=== PATIENT | female | born 1955 | race Caucasian/White ===

== ENCOUNTER 2022-09-18 14:06 | Outpatient (OUT) | payer MEDICARE, SELFPAY ==
[2022-09-18 14:42] LABS: Anion Gap 13.6; BUN Creatinine Ratio 18.8; Calcium 8.5 mg/dL (8.5-10.1); Carbon Dioxide 25.3 mmol/L (21.0-32.0); Chloride 97 mmol/L (98-107); Estimated GFR (African America 50 (>=60); Estimated GFR (Non-African Ame 41 (>=60); Glucose 124 mg/dL (74-106); Potassium 4.9 mmol/L (3.5-5.1); Sodium 131 mmol/L (136-145)
== END 2022-09-18 14:07 | disposition home or self-care (01) ==
LOC: LAB 14:09
PROVIDERS: PCP Family Medicine; Visit Provider Internal Medicine Interventional Cardiology
DX: I11.0 Hypertensive heart disease with heart failure (principal); I50.9 Heart failure, unspecified
CPT/HCPCS: 36415; 80048

== ENCOUNTER 2022-10-20 09:25 | Outpatient (OUT) | payer MEDICARE, SELFPAY ==
--- NOTE | 2022-10-20 09:36 | US_ITS ---
The [address] [address] Patient Name: CHIARA EDUARDO MRN: [id number] date: 1955 Sex: F Assigned Patient Location: US Current Patient Location: US Accession/Order Number: [id number] Exam Date: 10/20/2022 09:40 Report Date: 10/20/2022 10:38 At the request of: SHAIKH ROBERTA Procedure: US right upper quadrant EXAM: US right upper quadrant HISTORY: . Chronic Right Upper Quadrant Pain R10.11 . COMPARISON: None. TECHNIQUE: Grayscale and color imaging was performed FINDINGS: The pancreas was obscured due to overlying bowel gas. The gallbladder is absent. Common bile duct is normal measuring 4 mm. Scanning of the liver demonstrates a liver to be enlarged measuring 20 cm. There is slight increased echogenicity of liver. Color-flow is noted in the portal and hepatic veins. Right kidney measures 8.9 x 4.2 x 4.3 cm. No solid renal cortical masses or hydronephrosis is noted. No fluid is noted in the right upper quadrant. US/US right upper quadrant IMPRESSION: 1. Absent gallbladder. 2. The liver is enlarged measuring 20 cm. There is increased echogenicity of liver consistent with fatty infiltration of liver. 3. The pancreas was obscured due to overlying bowel gas. Electronically authenticated by: TIMOTHY ANDRE Date: 10/20/2022 10:38
[2022-10-20 14:39] LABS: Alanine Aminotransferase 22 U/L (14-59); Albumin Globulin Ratio 0.9; Albumin Level 3.5 g/dL (3.4-5.0); Alkaline Phosphatase 135 U/L (46-116); Aspartate Amino Transferase 19 U/L (15-37); Bilirubin Direct 0.1 mg/dL (0.0-0.2); Bilirubin Total 0.2 mg/dL (0.2-1.0); Globulin 3.8 g/dL; Total Protein 7.3 g/dL (6.4-8.2)
== END 2022-10-20 09:26 | disposition home or self-care (01) ==
LOC: US 09:25
PROVIDERS: PCP Internal Medicine; Visit Provider Internal Medicine
DX: R10.11 Right upper quadrant pain (principal); G89.29 Other chronic pain; Z90.49 Acquired absence of other specified parts of digestive tract; R16.0 Hepatomegaly, not elsewhere classified
CPT/HCPCS: 36415; 76705; 80076

== ENCOUNTER 2022-10-26 13:50 | Emergency (ER) | payer MEDICARE, SELFPAY ==
[2022-10-26] VITALS (47 sets, daily range): BP systolic 108–163; BP diastolic 74–127; PULSE 81–102; RESP 13–32; TEMP 36.8; O2SAT 73–100; BMI 36.0
--- NOTE | 2022-10-26 13:51 | ECG_ITS ---
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
--- NOTE | 2022-10-26 13:51 | XR_ITS ---
The [address] [address] Patient Name: CHIARA EDUARDO MRN: [id number] date: 1955 Sex: F Assigned Patient Location: ER Current Patient Location: ER Accession/Order Number: [id number] Exam Date: 10/26/2022 14:18 Report Date: 10/26/2022 14:42 At the request of: CELESTINA CONNER Procedure: XR chest 1V EXAMINATION: XR chest 1V HISTORY: Palpitations , shortness breath COMPARISON: No relevant comparison available. FINDINGS: LUNGS: No significant pulmonary parenchymal abnormalities. VASCULATURE: No increased pulmonary vasculature. PLEURA: No pneumothorax, effusion, or pleural thickening. CARDIAC: No cardiomegaly or cardiac silhouette abnormality. MEDIASTINUM: No visible mass or adenopathy. BONES: No fracture or visible bone lesion. OTHER: Electronic device overlying upper mediastinum. XR/XR chest 1V IMPRESSION: 1. No acute cardiopulmonary process or suspicious findings. Electronically authenticated by: SHAMIKA WHITLEY Date: 10/26/2022 14:42
--- NOTE | 2022-10-26 13:53 | ED_ITS ---
Documented by User: ELIOT Granger 10/26/22 18:35 HPI - General Adult General Chief complaint: Arrhythmia/Palpitations Stated complaint: ARRHYTHMIAS Time Seen by Provider: 10/26/22 13:51 History of Present Illness HPI narrative: patient is a 67-year-old female who presents to the emergency department for cardiac arrhythmia and palpitations. Patient had a heart attack several months ago with a stent placed [facility] and follows with [facility]. She denies any chest pain but states she is chronically short of breath and dizzy, no change in her symptoms today. She went to cardiac rehab and was noted on cardiac monitoring to have runs of ventricular tachycardia. Her licensed massage practitioner is out of the country. She has been on a three-week event monitor, cardiac rehab nurse states they have been called at least twice for patient's dysrhythmia on the event monitor. She is anticoagulated with Brillnta. Related Data Home Medications Medication Instructions Recorded Confirmed albuterol sulfate 2.5 mg/3 mL 2.5 mg inhalation Q6H PRN 10/02/22 10/02/22 (0.083 %) solution for nebulization shortness of breath or wheezing albuterol sulfate 90 mcg/actuation 2 inh inhalation Q4H PRN shortness 10/02/22 10/02/22 aerosol inhaler of breath or wheezing atorvastatin 80 mg tablet 80 mg PO DAILY 10/02/22 10/02/22 carvedilol 12.5 mg tablet 12.5 mg PO Q12H 10/02/22 10/26/22 cyclobenzaprine 10 mg tablet 10 mg PO Q8H PRN muscle spasm 10/02/22 10/02/22 fluticasone 250 mcg-salmeterol 50 1 inh inhalation BID 10/02/22 10/02/22 mcg/dose blistr powdr for inhalation furosemide 40 mg tablet 20 mg PO Q48H 10/02/22 10/02/22 ipratropium 0.5 mg-albuterol 3 mg 3 ml inhalation Q6H PRN shortness 10/02/22 10/02/22 (2.5 mg base)/3 mL nebulization of breath soln ipratropium bromide 0.02 % 1.25 ml inhalation Q6H PRN 10/02/22 10/02/22 solution for inhalation shortness of breath or wheezing isosorbide mononitrate 30 mg 30 mg PO DAILY 10/02/22 10/02/22 tablet,extended release 24 hr olmesartan 40 mg tablet 20 mg PO DAILY 10/02/22 10/26/22 ticagrelor 90 mg tablet (Brilinta) 90 mg PO Q12H 10/02/22 10/02/22 tiotropium bromide 2.5 2 inh inhalation DAILY 10/05/22 10/05/22 mcg/actuation mist for inhalation (Spiriva Respimat) Allergies Allergy/AdvReac Type Severity Reaction Status Date / Time vancomycin Allergy Severe Anaphylaxis Verified 10/02/22 14:02 clopidogrel [From Plavix] Allergy Intermediate Rash Verified 10/02/22 14:02 Penicillins Allergy Intermediate Hives Verified 10/02/22 14:02 hyrochlorathizide Allergy Severe Anaphylaxis Uncoded 10/02/22 14:02 Review of Systems ROS Constitutional Denies: fever or chills Ears, nose, mouth, and throat Denies: throat pain Cardiovascular Denies: chest pain Respiratory Reports: shortness of breath; Denies: cough Gastrointestinal Denies: abdominal pain, nausea or vomiting Musculoskeletal Denies: back pain Integumentary/Breast Denies: rash Neurological Denies: headache Hematologic/Lymphatic Denies: easy bruising PFSH PFSH Social History Smoking status: Never smoker Exam Narrative Exam Narrative: Gen.: Awake, alert, in no distress Head: Normocephalic, atraumatic ENT: Moist mucous membranes Respiratory: No respiratory distress, lungs clear bilaterally; no wheezing or rhonchi Cardio: frequent PVCs, normal rate Gastrointestinal: Abdomen is soft, nondistended and nontender to palpation Extremities: Moves extremities equally, 1+ pitting edema to the bilateral lower extremities Psych: Normal mood and affect Neuro: No focal neuro deficit Skin: Warm, dry, intact Constitutional Vital Signs, click to edit/add: Last Vital Signs Temp 98.3 F 10/26/22 13:56 Pulse 88 10/26/22 17:20 Resp 15 10/26/22 17:20 BP 151/87 H 10/26/22 17:00 Pulse Ox 99 10/26/22 17:20 O2 Del Method Room Air 10/26/22 14:21 Course Vital Signs Vital signs: Vital Signs Temperature 98.3 F 10/26/22 13:56 Pulse Rate 91 H 10/26/22 13:56 Respiratory Rate 20 10/26/22 13:56 Blood Pressure 108/82 10/26/22 13:56 Pulse Oximetry 100 10/26/22 13:56 Oxygen Delivery Method Room Air 10/26/22 13:56 Temperature 98.3 F 10/26/22 13:56 Pulse Rate 88 10/26/22 17:20 Respiratory Rate 15 10/26/22 17:20 Blood Pressure 151/87 H 10/26/22 17:00 Pulse Oximetry 99 10/26/22 17:20 Oxygen Delivery Method Room Air 10/26/22 14:21 Medical Decision Making MDM Narrative Medical decision making narrative: on arrival to the emergency department, patient was noted on cardiac monitoring to have continued runs of PVCs, as many as 5-6 beats noted in a row. lab studies, chest x-ray were ordered for the patient. I discussed the case with Dr. Pemberton (1413pm) and he is in agreement with treatment plan. Patient was started on amiodarone drip at 0.5mg/min, we are not able to get an emergent echocardiogram for the patient so it was recommended that she be transferred to tertiary care for cardiology evaluation. the hospitalist at [facility] accepted the patient for Dr. Saleh (1517pm). 1830: lab studies show the patient has a normal magnesium, chronic hyponatremia and normal troponin. Chest x-rays unremarkable. She has no EKG changes in the Emergency Room other than her frequent PVCs. Cardiac monitoring shows that the patient has continued runs of PVCs but no active chest pain in the emergency department. We have received a bed at [facility] and the patient will be transferred by ambulance. She was reevaluated by Dr. Slater, he had an extensive discussion with the patient at bedside explaining the need for transfer and patient and family are in agreement with this. Critical care time 35 minutes. Medical Records Medical records reviewed: Yes I reviewed the patient's medical records Lab Data Lab results reviewed: Yes I reviewed the patient's lab results Labs: Lab Results 10/26/22 Range/Units 14:00 WBC 6.8 (4.0-11.0) 10^3/uL RBC 3.02 L (4.20-5.40) 10^6/uL Hgb 8.3 L (12.0-16.0) g/dL Hct 25.4 L (36.0-48.0) % MCV 84.1 (81.0-99.0) fL MCH 27.5 (26.7-34.0) pg MCHC 32.7 (29.9-35.2) g/dL RDW 13.5 (11.0-15.0) % Plt Count 391 (150-450) 10^3/uL MPV 9.4 L (9.5-13.5) fL Neut % (Auto) 70.5 (43.0-75.0) % Lymph % (Auto) 15.6 L (20.5-60.0) % Clinch % (Auto) 9.6 (1.7-12.0) % Eos % (Auto) 3.2 (0.9-7.0) % Baso % (Auto) 0.7 (0.2-2.0) % Neut # (Auto) 4.8 (1.4-6.5) 10^3/uL Lymph # (Auto) 1.1 L (1.2-3.8) 10^3/uL Clinch # (Auto) 0.7 (0.3-0.8) 10^3/uL Eos # (Auto) 0.2 (0.0-0.7) 10^3/uL Baso # (Auto) 0.1 (0.0-0.1) 10^3/uL Abs Immat Gran (auto) 0.03 (0.00-0.03) 10^3/uL Imm/Tot Granulo (auto) 0.4 (0.0-0.5) % PT 10.1 (9.0-11.6) sec INR 0.95 APTT 26.2 (22.3-36.2) sec Sodium 126 L (136-145) mmol/L Potassium 4.1 (3.5-5.1) mmol/L Chloride 94 L (98-107) mmol/L Carbon Dioxide 23.9 (21.0-32.0) mmol/L Anion Gap 12.2 BUN 20.0 H (7.0-18.0) mg/dL Creatinine 1.10 H (0.55-1.02) mg/dL Est GFR ( Amer) 60 (>=60) Est GFR (Non-Af Amer) 49 L (>=60) BUN/Creatinine Ratio 18.2 Glucose 155 H (74-106) mg/dL Calcium 8.3 L (8.5-10.1) mg/dL Magnesium 1.9 (1.8-2.4) mg/dL Total Bilirubin 0.3 (0.2-1.0) mg/dL AST 19 (15-37) U/L ALT 24 (14-59) U/L Alkaline Phosphatase 137 H (46-116) U/L Troponin I High Sens 8.0 (4.0-51.3) pg/mL NT-Pro-B Natriuret Pep 1218.0 H* (<=900.0) pg/mL Total Protein 7.4 (6.4-8.2) g/dL Albumin 3.4 (3.4-5.0) g/dL Globulin 4.0 g/dL Albumin/Globulin Ratio 0.9 TSH 1.236 (0.358-3.740) uIU/mL Imaging Data Chest x-ray: Attestation: I have reviewed the pertinent imaging results. Radiologist's impression: Procedure: XR chest 1V EXAMINATION: XR chest 1V HISTORY: Palpitations , shortness breath COMPARISON: No relevant comparison available. FINDINGS: LUNGS: No significant pulmonary parenchymal abnormalities. VASCULATURE: No increased pulmonary vasculature. PLEURA: No pneumothorax, effusion, or pleural thickening. CARDIAC: No cardiomegaly or cardiac silhouette abnormality. MEDIASTINUM: No visible mass or adenopathy. BONES: No fracture or visible bone lesion. OTHER: Electronic device overlying upper mediastinum. IMPRESSION: 1. No acute cardiopulmonary process or suspicious findings. Electronically authenticated by: SHAMIKA WHITLEY Date: 10/26/2022 14:42 ECG Data Attestation: I personally reviewed and interpreted this ECG as follows: (normal sinus rhythm at a rate of ninety-four, frequent PVCs that are coupled, no acute ST elevation. EKG reviewed by attending physician) Discharge Plan Discharge Chief Complaint: Arrhythmia/Palpitations Clinical Impression: Palpitations, Cardiac arrhythmia, Ventricular premature beats, Anemia Patient Disposition: [facility] Time of Disposition Decision: 18:34 Discharge Location: The [facility] Condition: Good Mode of Transportation: EMS Documented by User: Nic Slater MD 10/26/22 18:57 HPI - General Adult General Chief complaint: Arrhythmia/Palpitations Stated complaint: ARRHYTHMIAS Time Seen by Provider: 10/26/22 13:51 History of Present Illness HPI narrative: patient is a 67-year-old female who presents to the emergency department for cardiac arrhythmia and palpitations. Patient had a heart attack several months ago with a stent placed [facility] and follows with [facility]. She denies any chest pain but states she is chronically short of breath and dizzy, no change in her symptoms today. She went to cardiac rehab and was noted on cardiac monitoring to have runs of ventricular tachycardia. Her licensed massage practitioner is out of the country, Dr Milner. She has been on a three-week event monitor, cardiac rehab nurse states they have been called at least twice for patient's dysrhythmia on the event monitor. She is anticoagulated with Angelita llnta. Related Data Home Medications Medication Instructions Recorded Confirmed albuterol sulfate 2.5 mg/3 mL 2.5 mg inhalation Q6H PRN 10/02/22 10/02/22 (0.083 %) solution for nebulization shortness of breath or wheezing albuterol sulfate 90 mcg/actuation 2 inh inhalation Q4H PRN shortness 10/02/22 10/02/22 aerosol inhaler of breath or wheezing atorvastatin 80 mg tablet 80 mg PO DAILY 10/02/22 10/02/22 carvedilol 12.5 mg tablet 12.5 mg PO Q12H 10/02/22 10/26/22 cyclobenzaprine 10 mg tablet 10 mg PO Q8H PRN muscle spasm 10/02/22 10/02/22 fluticasone 250 mcg-salmeterol 50 1 inh inhalation BID 10/02/22 10/02/22 mcg/dose blistr powdr for inhalation furosemide 40 mg tablet 20 mg PO Q48H 10/02/22 10/02/22 ipratropium 0.5 mg-albuterol 3 mg 3 ml inhalation Q6H PRN shortness 10/02/22 10/02/22 (2.5 mg base)/3 mL nebulization of breath soln ipratropium bromide 0.02 % 1.25 ml inhalation Q6H PRN 10/02/22 10/02/22 solution for inhalation shortness of breath or wheezing isosorbide mononitrate 30 mg 30 mg PO DAILY 10/02/22 10/02/22 tablet,extended release 24 hr olmesartan 40 mg tablet 20 mg PO DAILY 10/02/22 10/26/22 ticagrelor 90 mg tablet (Brilinta) 90 mg PO Q12H 10/02/22 10/02/22 tiotropium bromide 2.5 2 inh inhalation DAILY 10/05/22 10/05/22 mcg/actuation mist for inhalation (Spiriva Respimat) Allergies Allergy/AdvReac Type Severity Reaction Status Date / Time vancomycin Allergy Severe Anaphylaxis Verified 10/02/22 14:02 clopidogrel [From Plavix] Allergy Intermediate Rash Verified 10/02/22 14:02 Penicillins Allergy Intermediate Hives Verified 10/02/22 14:02 hyrochlorathizide Allergy Severe Anaphylaxis Uncoded 10/02/22 14:02 [facility] Social History Smoking status: Never smoker Exam Constitutional Vital Signs, click to edit/add: Last Vital Signs Temp 98.3 F 10/26/22 13:56 Pulse 88 10/26/22 17:20 Resp 15 10/26/22 17:20 BP 151/87 H 10/26/22 17:00 Pulse Ox 99 10/26/22 17:20 O2 Del Method Room Air 10/26/22 14:21 Course Vital Signs Vital signs: Vital Signs Temperature 98.3 F 10/26/22 13:56 Pulse Rate 91 H 10/26/22 13:56 Respiratory Rate 20 10/26/22 13:56 Blood Pressure 108/82 10/26/22 13:56 Pulse Oximetry 100 10/26/22 13:56 Oxygen Delivery Method Room Air 10/26/22 13:56 Temperature 98.3 F 10/26/22 13:56 Pulse Rate 88 10/26/22 17:20 Respiratory Rate 15 10/26/22 17:20 Blood Pressure 151/87 H 10/26/22 17:00 Pulse Oximetry 99 10/26/22 17:20 Oxygen Delivery Method Room Air 10/26/22 14:21 Medical Decision Making MDM Narrative Medical decision making narrative: on arrival to the emergency department, patient was noted on cardiac monitoring to have continued runs of PVCs, as many as 5-6 beats noted in a row. lab studies, chest x-ray were ordered for the patient. I discussed the case with Dr. Pemberton (1413pm) and he is in agreement with treatment plan. Patient was started on amiodarone drip at 0.5mg/min, we are not able to get an emergent echocardiogram for the patient as it was initially recommended by Dr. Pemberton; so it was recommended that she be transferred to tertiary care for cardiology evaluation. the hospitalist at [facility] accepted the patient for Dr. Saleh (1517pm). 1830: lab studies show the patient has a normal magnesium, chronic hyponatremia and normal troponin. Chest x-rays unremarkable. She has no EKG changes in the Emergency Room other than her frequent PVCs. Cardiac monitoring shows that the patient has continued runs of PVCs but no active chest pain in the emergency department. We have received a bed at [facility] and the patient will be transferred by ambulance. She was reevaluated by Dr. Slater, he had an extensive discussion with the patient at bedside explaining the need for transfer and patient and family are in agreement with this. Patient has maintained normal rate while patient has been on amiodarone drip. Amiodarone drip was started prophylactically. Critical care time 35 minutes. Critical care time 35 minutes exclusive from separate billable procedures that were performed. The following was considered in the determination of critical care but not limited to the level of medical decision making, intensive cardiac and/or respiratory monitoring, frequent vital sign monitoring, evaluation of laboratory studies, evaluation of radiographic studies, oxygen monitoring, and constant monitoring and speaking to family at bedside Lab Data Labs: Lab Results 10/26/22 Range/Units 14:00 WBC 6.8 (4.0-11.0) 10^3/uL RBC 3.02 L (4.20-5.40) 10^6/uL Hgb 8.3 L (12.0-16.0) g/dL Hct 25.4 L (36.0-48.0) % MCV 84.1 (81.0-99.0) fL MCH 27.5 (26.7-34.0) pg MCHC 32.7 (29.9-35.2) g/dL RDW 13.5 (11.0-15.0) % Plt Count 391 (150-450) 10^3/uL MPV 9.4 L (9.5-13.5) fL Neut % (Auto) 70.5 (43.0-75.0) % Lymph % (Auto) 15.6 L (20.5-60.0) % Clinch % (Auto) 9.6 (1.7-12.0) % Eos % (Auto) 3.2 (0.9-7.0) % Baso % (Auto) 0.7 (0.2-2.0) % Neut # (Auto) 4.8 (1.4-6.5) 10^3/uL Lymph # (Auto) 1.1 L (1.2-3.8) 10^3/uL Clinch # (Auto) 0.7 (0.3-0.8) 10^3/uL Eos # (Auto) 0.2 (0.0-0.7) 10^3/uL Baso # (Auto) 0.1 (0.0-0.1) 10^3/uL Abs Immat Gran (auto) 0.03 (0.00-0.03) 10^3/uL Imm/Tot Granulo (auto) 0.4 (0.0-0.5) % PT 10.1 (9.0-11.6) sec INR 0.95 APTT 26.2 (22.3-36.2) sec Sodium 126 L (136-145) mmol/L Potassium 4.1 (3.5-5.1) mmol/L Chloride 94 L (98-107) mmol/L Carbon Dioxide 23.9 (21.0-32.0) mmol/L Anion Gap 12.2 BUN 20.0 H (7.0-18.0) mg/dL Creatinine 1.10 H (0.55-1.02) mg/dL Est GFR ( Amer) 60 (>=60) Est GFR (Non-Af Amer) 49 L (>=60) BUN/Creatinine Ratio 18.2 Glucose 155 H (74-106) mg/dL Calcium 8.3 L (8.5-10.1) mg/dL Magnesium 1.9 (1.8-2.4) mg/dL Total Bilirubin 0.3 (0.2-1.0) mg/dL AST 19 (15-37) U/L ALT 24 (14-59) U/L Alkaline Phosphatase 137 H (46-116) U/L Troponin I High Sens 8.0 (4.0-51.3) pg/mL NT-Pro-B Natriuret Pep 1218.0 H* (<=900.0) pg/mL Total Protein 7.4 (6.4-8.2) g/dL Albumin 3.4 (3.4-5.0) g/dL Globulin 4.0 g/dL Albumin/Globulin Ratio 0.9 TSH 1.236 (0.358-3.740) uIU/mL Discharge Plan Discharge Chief Complaint: Arrhythmia/Palpitations Clinical Impression: Palpitations, Cardiac arrhythmia, Ventricular premature beats, Anemia Patient Disposition: [facility] Time of Disposition Decision: 18:34 Discharge Location: The [facility] Condition: Good Mode of Transportation: EMS
[2022-10-26] MEDS: AMIODARONE IN DEXTROSE,ISO-OSM 360 MG/200 ML PLAST..BAG 16.667 MG IV (14:10)
[2022-10-26 14:22] LABS: Basophils Absolute Auto 0.1 10^3/uL (0.0-0.1); Basophils Percent Auto 0.7 % (0.2-2.0); Eosinophils Absolute Auto 0.2 10^3/uL (0.0-0.7); Eosinophils Percent Auto 3.2 % (0.9-7.0); Hematocrit 25.4 % (36.0-48.0); Hemoglobin 8.3 g/dL (12.0-16.0); Immature Granulocytes Abs Auto 0.03 10^3/uL (0.00-0.03); Immature Granulocytes Pct Auto 0.4 % (0.0-0.5); Lymphocytes Absolute Auto 1.1 10^3/uL (1.2-3.8); Lymphocytes Percent Auto 15.6 % (20.5-60.0); Mean Corpuscular HGB Conc 32.7 g/dL (29.9-35.2); Mean Corpuscular Hemoglobin 27.5 pg (26.7-34.0); Mean Corpuscular Volume 84.1 fL (81.0-99.0); Mean Platelet Volume 9.4 fL (9.5-13.5); Monocytes Absolute Auto 0.7 10^3/uL (0.3-0.8); Monocytes Percent Auto 9.6 % (1.7-12.0); Neutrophils Absolute Auto 4.8 10^3/uL (1.4-6.5); Neutrophils Percent Auto 70.5 % (43.0-75.0); Platelet Count 391 10^3/uL (150-450); Red Blood Count 3.02 10^6/uL (4.20-5.40); Red Cell Distribution Width 13.5 % (11.0-15.0); White Blood Count 6.8 10^3/uL (4.0-11.0)
[2022-10-26 14:37] LABS: INR 0.95; Partial Thromboplastin Time 26.2 sec (22.3-36.2); Prothrombin Time 10.1 sec (9.0-11.6)
[2022-10-26 14:42] LABS: Alanine Aminotransferase 24 U/L (14-59); Albumin Globulin Ratio 0.9; Albumin Level 3.4 g/dL (3.4-5.0); Alkaline Phosphatase 137 U/L (46-116); Anion Gap 12.2; Aspartate Amino Transferase 19 U/L (15-37); BUN Creatinine Ratio 18.2; Bilirubin Total 0.3 mg/dL (0.2-1.0); Calcium 8.3 mg/dL (8.5-10.1); Carbon Dioxide 23.9 mmol/L (21.0-32.0); Chloride 94 mmol/L (98-107); Estimated GFR (African America 60 (>=60); Estimated GFR (Non-African Ame 49 (>=60); Glucose 155 mg/dL (74-106); Potassium 4.1 mmol/L (3.5-5.1); Sodium 126 mmol/L (136-145); Total Protein 7.4 g/dL (6.4-8.2)
[2022-10-26 14:43] LABS: Thyroid Stimulating Hormone 1.236 uIU/mL (0.358-3.740)
[2022-10-26 16:09] LABS: Magnesium 1.9 mg/dL (1.8-2.4)
--- NOTE | 2022-10-26 18:08 | ECG_ITS ---
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1955 Requested By: SHAIKH ROBERTA Order Number: [id number] Reading MD: AMELIA VELASCO Measurements Intervals [place] Rate: 93 P: -28968 ME: -39586 QRS: 89 QRSD: 136 T: -88 QT: 390 QTc: 441 Interpretive Statements 31294 Atrial fibrillation with aberrant conduction, or ventricular premature complexes 2330 Nonspecific intraventricular conduction block 9150 abnormal ECG Compared to ECG 10/26/2022 13:58:12 Aberrant conduction of supraventricular beat(s) now present Sinus rhythm no longer present Ventricular premature complex(es) no longer present Electronically Signed On 10-27-2022 7:08:11 EDT by AMELIA VELASCO
== END 2022-10-26 21:14 | disposition short-term general hospital (02) ==
PROVIDERS: Physician Assistant; Emergency Provider Emergency Medicine; PCP Internal Medicine
DX: R00.2 Palpitations (principal); I49.9 Cardiac arrhythmia, unspecified; D64.9 Anemia, unspecified; I49.3 Ventricular premature depolarization; R06.02 Shortness of breath; I25.2 Old myocardial infarction; Z95.5 Presence of coronary angioplasty implant and graft; Z79.899 Other long term (current) 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; Z79.01 Long term (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 of anticoagulants
CPT/HCPCS: 36415; 71045; 80053; 83735; 83880; 84443; 84484; 85025; 85610; 85730; 93005; 96374; 99285

== ENCOUNTER 2022-11-02 14:58 | Outpatient (OUT) | payer MEDICARE, SELFPAY ==
[2022-11-02 15:26] LABS: Anion Gap 11.9; BUN Creatinine Ratio 13.4; Calcium 8.9 mg/dL (8.5-10.1); Carbon Dioxide 27.2 mmol/L (21.0-32.0); Chloride 98 mmol/L (98-107); Estimated GFR (African America 54 (>=60); Estimated GFR (Non-African Ame 45 (>=60); Glucose 102 mg/dL (74-106); Potassium 4.1 mmol/L (3.5-5.1); Sodium 133 mmol/L (136-145)
== END 2022-11-02 14:59 | disposition home or self-care (01) ==
LOC: LAB 14:58
PROVIDERS: PCP Internal Medicine; Visit Provider Internal Medicine Interventional Cardiology
DX: I11.0 Hypertensive heart disease with heart failure (principal)
CPT/HCPCS: 36415; 80048

== ENCOUNTER 2022-11-17 15:00 | Outpatient (REF) | payer MEDICARE, SELFPAY ==
[2022-11-17 15:32] LABS: Anion Gap 16.3; BUN Creatinine Ratio 13.9; Calcium 9.1 mg/dL (8.5-10.1); Carbon Dioxide 24.4 mmol/L (21.0-32.0); Chloride 97 mmol/L (98-107); Estimated GFR (African America 41 (>=60); Estimated GFR (Non-African Ame 34 (>=60); Glucose 119 mg/dL (74-106); Potassium 4.7 mmol/L (3.5-5.1); Sodium 133 mmol/L (136-145)
== END 2022-11-17 15:01 | disposition home or self-care (01) ==
LOC: LAB 15:00
PROVIDERS: PCP Internal Medicine; Visit Provider Internal Medicine
DX: E22.2 Syndrome of inappropriate secretion of antidiuretic hormone (principal)
CPT/HCPCS: 36415; 80048

== ENCOUNTER 2022-11-17 15:00 | Outpatient (REF) | payer MEDICARE, SELFPAY ==
[2022-11-17 15:20] LABS: Basophils Absolute Auto 0.1 10^3/uL (0.0-0.1); Basophils Percent Auto 1.1 % (0.2-2.0); Eosinophils Absolute Auto 0.2 10^3/uL (0.0-0.7); Eosinophils Percent Auto 3.5 % (0.9-7.0); Hematocrit 34.8 % (36.0-48.0); Hemoglobin 11.1 g/dL (12.0-16.0); Immature Granulocytes Abs Auto 0.03 10^3/uL (0.00-0.03); Immature Granulocytes Pct Auto 0.5 % (0.0-0.5); Lymphocytes Absolute Auto 0.8 10^3/uL (1.2-3.8); Lymphocytes Percent Auto 12.5 % (20.5-60.0); Mean Corpuscular HGB Conc 31.9 g/dL (29.9-35.2); Mean Corpuscular Hemoglobin 28.5 pg (26.7-34.0); Mean Corpuscular Volume 89.5 fL (81.0-99.0); Mean Platelet Volume 9.2 fL (9.5-13.5); Monocytes Absolute Auto 0.6 10^3/uL (0.3-0.8); Monocytes Percent Auto 9.3 % (1.7-12.0); Neutrophils Absolute Auto 4.6 10^3/uL (1.4-6.5); Neutrophils Percent Auto 73.1 % (43.0-75.0); Platelet Count 378 10^3/uL (150-450); Red Blood Count 3.89 10^6/uL (4.20-5.40); Red Cell Distribution Width 19.1 % (11.0-15.0); White Blood Count 6.3 10^3/uL (4.0-11.0)
== END 2022-11-17 15:01 | disposition home or self-care (01) ==
LOC: LAB 15:00
PROVIDERS: PCP Internal Medicine; Visit Provider Nurse Practitioner
DX: E22.2 Syndrome of inappropriate secretion of antidiuretic hormone (principal); D64.9 Anemia, unspecified
CPT/HCPCS: 36415; 80048; 85025

== ENCOUNTER 2022-12-03 13:29 | Outpatient (OUT) | payer MEDICARE, SELFPAY ==
[2022-12-03 14:34] LABS: Anion Gap 12.1; BUN Creatinine Ratio 16.7; Calcium 8.6 mg/dL (8.5-10.1); Carbon Dioxide 26.5 mmol/L (21.0-32.0); Chloride 101 mmol/L (98-107); Estimated GFR (African America 42 (>=60); Estimated GFR (Non-African Ame 34 (>=60); Glucose 110 mg/dL (74-106); Potassium 4.6 mmol/L (3.5-5.1); Sodium 135 mmol/L (136-145)
== END 2022-12-03 13:30 | disposition home or self-care (01) ==
LOC: LAB 13:29
PROVIDERS: PCP Internal Medicine; Visit Provider Nurse Practitioner
DX: I10 Essential (primary) hypertension (principal)
CPT/HCPCS: 36415; 80048

== ENCOUNTER 2023-01-18 13:06 | Outpatient (OUT) | payer MEDICARE, SELFPAY ==
[2023-01-18 13:17] LABS: Hemoglobin 10.9 g/dL (12.0-16.0)
--- NOTE | 2023-01-18 14:36 | RT_ITS ---
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 Findings were considered accurate and reproducible, with exception of DLCO and several other measurements which did not meet ATS standards. Both pre- and post-bronchodilator values utilized for spirometry. Due to software limitations, no prior studies (if performed previously) are currently available for comparison. Spirometry (based on pre-bronchodilator values): -FEV1/FVC: Reduced @ 55% -FEV1: Severely reduced @ 41% -FVC: Reduced @ 56% -There is a positive bronchodilator response in FVC. Lung volumes by plethysmography (based on pre-bronchodilator values): -RV: Increased @ 197% -TLC: Increased @ 130% Diffusion capacity: -DLCO: Moderate reduction @ 61% when corrected for Hb 10.9g/dL Flow-volume loop: -Severe obstructive pattern Flow-pressure loop: ???Emphysematous pattern Impressions: -Spirometry suggests severe obstruction. There is a positive bronchodilator response. An elevated RV and TLC suggest air trapping and hyperinflation respectively. There is a severely reduced diffusion capacity. Overall study is compatible with COPD/emphysema. Clinical correlation required. Electronically Signed On 01-18-2023 16:21:37 EDT by Brien Coughlin
[2023-01-18] MEDS: ALBUTEROL SULFATE 2.5 MG/3 ML VIAL NEB IH (15:08)
== END 2023-01-18 13:07 | disposition home or self-care (01) ==
LOC: CARD 13:07
PROVIDERS: PCP Internal Medicine; Visit Provider Internal Medicine
DX: J44.9 Chronic obstructive pulmonary disease, unspecified (principal); Z79.899 Other long term (current) 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
CPT/HCPCS: 36415; 85018; 94060; 94726; 94729

== ENCOUNTER 2023-01-20 10:01 | Outpatient (OUT) | payer MEDICARE, SELFPAY ==
[2023-01-20 10:26] LABS: Basophils Absolute Auto 0.1 10^3/uL (0.0-0.1); Basophils Percent Auto 1.1 % (0.2-2.0); Eosinophils Absolute Auto 0.3 10^3/uL (0.0-0.7); Eosinophils Percent Auto 5.2 % (0.9-7.0); Hematocrit 36.1 % (36.0-48.0); Hemoglobin 11.3 g/dL (12.0-16.0); Immature Granulocytes Abs Auto 0.02 10^3/uL (0.00-0.03); Immature Granulocytes Pct Auto 0.4 % (0.0-0.5); Lymphocytes Absolute Auto 1.1 10^3/uL (1.2-3.8); Lymphocytes Percent Auto 19.7 % (20.5-60.0); Mean Corpuscular HGB Conc 31.3 g/dL (29.9-35.2); Mean Corpuscular Volume 95.8 fL (81.0-99.0); Mean Platelet Volume 9.3 fL (9.5-13.5); Monocytes Absolute Auto 0.6 10^3/uL (0.3-0.8); Monocytes Percent Auto 11.2 % (1.7-12.0); Neutrophils Absolute Auto 3.4 10^3/uL (1.4-6.5); Neutrophils Percent Auto 62.4 % (43.0-75.0); Platelet Count 298 10^3/uL (150-450); Red Blood Count 3.77 10^6/uL (4.20-5.40); Red Cell Distribution Width 19.1 % (11.0-15.0); White Blood Count 5.4 10^3/uL (4.0-11.0)
[2023-01-20 11:02] LABS: Alanine Aminotransferase 35 U/L (14-59); Albumin Globulin Ratio 0.9; Albumin Level 3.5 g/dL (3.4-5.0); Alkaline Phosphatase 120 U/L (46-116); Anion Gap 8.4; Aspartate Amino Transferase 24 U/L (15-37); BUN Creatinine Ratio 16.2; Bilirubin Total 0.4 mg/dL (0.2-1.0); Calcium 8.6 mg/dL (8.5-10.1); Carbon Dioxide 30.2 mmol/L (21.0-32.0); Chloride 101 mmol/L (98-107); Cholesterol 164 mg/dL (<=200); Estimated GFR (African America 49 (>=60); Estimated GFR (Non-African Ame 41 (>=60); Glucose 101 mg/dL (74-106); HDL Cholesterol 80 mg/dL (40-60); Potassium 4.6 mmol/L (3.5-5.1); Sodium 135 mmol/L (136-145); Total Protein 7.5 g/dL (6.4-8.2); Triglycerides 59 mg/dL (<=150); VLDL CHOLESTEROL 11.8 mg/dL
== END 2023-01-20 10:02 | disposition home or self-care (01) ==
LOC: LAB 10:01
PROVIDERS: PCP Internal Medicine; Visit Provider Internal Medicine
DX: Z00.00 Encounter for general adult medical examination without abnormal findings (principal); Z79.899 Other long term (current) 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; E78.5 Hyperlipidemia, unspecified
CPT/HCPCS: 36415; 80053; 80061; 84443; 84481; 85025

== ENCOUNTER 2023-01-20 12:57 | Outpatient (OUT) | payer MEDICARE, SELFPAY ==
--- NOTE | 2023-01-20 13:02 | CT_ITS ---
[address] [address] Patient Name: CHIARA EDUARDO MRN: [id number] date: 1955 Sex: F Assigned Patient Location: CT Current Patient Location: Accession/Order Number: [id number] Exam Date: 01/20/2023 13:20 Report Date: 01/21/2023 14:51 At the request of: LUIS SCHUMACHER Procedure: CT lung screening low-dose EXAMINATION: CT lung screening low-dose HISTORY: History Tobacco Abuse Z87.891 COMPARISON: CT chest 01/19/2022 TECHNIQUE: Axial, Coronal, and Sagittal images were created without the administration of IV contrast material. Dose reduction techniques were achieved by using automated exposure control and/or adjustment of mA and/or kV according to patient size and/or use of iterative reconstruction technique. FINDINGS: LUNGS: A few small nodules scattered within the lungs, largest is within right middle lobe, 5 mm within lateral left lung base, 4 mm; stable. No new nodules or acute infiltrates. Minimal emphysematous changes. PLEURA: No mass, effusion, or pneumothorax. VASCULATURE: No abnormality. TEODORO: No mass or pathologic adenopathy. MEDIASTINUM: No mass or pathologic adenopathy. CARDIAC: No enlargement, pericardial thickening, or significant calcification. AORTA: No aneurysm or dissection. CHEST WALL: No mass or axillary adenopathy BONES: No bone lesion or fracture. LIMITED ABDOMEN: No suspicious findings. Limited images of the upper abdomen. OTHER: Negative. CT/CT lung screening low-dose IMPRESSION: 1. Lung-RADS 2- Benign Appearance or Behavior. Nodules with a very low likelihood of becoming a clinically active cancer due to size or lack of growth. Follow-up CT Chest in 1 year. Electronically authenticated by: SHAMIKA WHITLEY Date: 01/21/2023 14:51
== END 2023-01-20 12:58 | disposition home or self-care (01) ==
LOC: CT 12:57
PROVIDERS: PCP Internal Medicine; Visit Provider Internal Medicine
DX: Z87.891 Personal history of nicotine dependence (principal)
CPT/HCPCS: 71271

== ENCOUNTER 2023-03-01 10:05 | Outpatient (OUT) | payer MEDICARE, SELFPAY ==
[2023-03-01 10:33] LABS: Bilirubin Urine NEGATIVE (NEGATIVE); Blood Urine NEGATIVE (NEGATIVE); Clarity Urine CLEAR (CLEAR); Color Urine LT. YELLOW (YELLOW); Glucose Urine UA NEGATIVE (NEGATIVE); Hematocrit 35.3 % (36.0-48.0); Hemoglobin 11.5 g/dL (12.0-16.0); Ketones Urine NEGATIVE (NEGATIVE); Leukocyte Esterase Urine TRACE (NEGATIVE); Mean Corpuscular HGB Conc 32.6 g/dL (29.9-35.2); Mean Corpuscular Hemoglobin 30.9 pg (26.7-34.0); Mean Corpuscular Volume 94.9 fL (81.0-99.0); Nitrite Urine NEGATIVE (NEGATIVE); Platelet Count 319 10^3/uL (150-450); Protein Urine NEGATIVE (NEG/TRACE); Red Blood Count 3.72 10^6/uL (4.20-5.40); Red Cell Distribution Width 14.4 % (11.0-15.0); Specific Gravity Urine <=1.005 (1.005-1.025); Urobilinogen Urine 0.2 EU/dL (0.2-1.0)
[2023-03-01 10:59] LABS: Creatinine Urine Random 54.47 mg/dL (20.00-300.00); Protein Creatinine Ratio Urine 0.19; Total Protein Urine Random 10.4 mg/dL (<=11.9)
[2023-03-01 11:03] LABS: Percent Iron Saturation 16.3 %
[2023-03-01 11:05] LABS: Alanine Aminotransferase 36 U/L (14-59); Albumin Globulin Ratio 0.9; Albumin Level 3.6 g/dL (3.4-5.0); Alkaline Phosphatase 100 U/L (46-116); Anion Gap 13.3; Aspartate Amino Transferase 22 U/L (15-37); BUN Creatinine Ratio 15.8; Bilirubin Total 0.3 mg/dL (0.2-1.0); Calcium 8.4 mg/dL (8.5-10.1); Carbon Dioxide 28.9 mmol/L (21.0-32.0); Chloride 96 mmol/L (98-107); Estimated GFR (African America 48 (>=60); Estimated GFR (Non-African Ame 40 (>=60); Globulin 3.9 g/dL; Glucose 94 mg/dL (74-106); Magnesium 2.2 mg/dL (1.8-2.4); Phosphorus 4.2 mg/dL (2.6-4.7); Potassium 4.2 mmol/L (3.5-5.1); Sodium 134 mmol/L (136-145); Total Protein 7.5 g/dL (6.4-8.2); Uric Acid 6.3 mg/dL (2.6-6.0)
[2023-03-02 13:10] LABS: PTH, Intact 50 pg/mL (15-65)
== END 2023-03-01 10:06 | disposition home or self-care (01) ==
LOC: LAB 10:05
PROVIDERS: PCP Internal Medicine; Visit Provider Internal Medicine Nephrology
DX: N18.32 Chronic kidney disease, stage 3b (principal); I12.9 Hypertensive chronic kidney disease with stage 1 through stage 4 chronic kidney disease, or unspecified chronic kidney disease; E87.5 Hyperkalemia; E87.1 Hypo-osmolality and hyponatremia; E83.42 Hypomagnesemia; E79.0 Hyperuricemia without signs of inflammatory arthritis and tophaceous disease; D64.9 Anemia, unspecified; E55.9 Vitamin D deficiency, unspecified
CPT/HCPCS: 36415; 80053; 81003; 82306; 82570; 82607; 82728; 82746; 83540; 83550; 83735; 83970; 84100; 84156; 84550; 85027

== ENCOUNTER 2023-11-08 10:10 | Outpatient (OUT) | payer MEDICARE, SELFPAY ==
--- OUTSIDE RECORDS SUMMARY | 2023-11-08 10:31 | XMS_ITS | CCD ---
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 Name Role Phone Jackelyn Guillory Unavailable BAKHUMBERTOSJACKELYN Attending Unavailable BAKHOUS, AZIZ Admitting Unavailable HOUSE, DR CASTILLO Primary Care Unavailable WEST, DR TIMOTHY Chandler Consulting Unavailable SAMSA ., LUIS Consulting Unavailable BAKHOUS, AZIZ Consulting Unavailable SAMSA ., LUIS Consulting Unavailable SAMSA ., LUIS Attending Unavailable SAMSA ., LUIS Admitting Unavailable HOUSE, DR CASTILLO Primary Care Unavailable SAMSA ., LUIS Consulting Unavailable SAMSA ., LUIS Attending Unavailable SAMSA ., LUIS Admitting Unavailable MISC, DR PAREDES Primary Care Unavailable SAMSA ., LUIS Attending Unavailable SAMSA ., LUIS Admitting Unavailable MISC, DR PAREDES Primary Care Unavailable SAMSA ., LUIS Attending Unavailable [place], DR TIMOTHY Chandler Consulting Unavailable HOUSE, DR CASTILLO Primary Care Unavailable SAMSA ., LUIS Admitting Unavailable SAMSA ., LUIS Consulting Unavailable HOUSE, DR CASTILLO Admitting Unavailable HOUSE, DR CASTILLO Primary Care Unavailable [place], DR CASTILLO Consulting Unavailable [place], DR CASTILLO Attending Unavailable BAKHOUS, AZIZ Consulting Unavailable BAKHOUS, AZIZ Attending Unavailable BAKHOUS, AZIZ Admitting Unavailable HOUSE, DR CASTILLO Primary Care Unavailable [facility], DR HUANG Consulting Unavailable [facility], DR HUANG Attending Unavailable HOUSE, DR CASTILLO [facility] Admitting Unavailable SAMSA ., LUIS Consulting Unavailable SAMSA ., LUIS Attending Unavailable SAMSA ., LUIS Admitting Unavailable HOUSE, DR CASTILLO Primary Care Unavailable HOUSE, DR CASTILLO Consulting Unavailable SAMSA ., LUIS Consulting Unavailable SHAIKH GRANADOS Attending Unavailable ANGEL MATHEW Referring Unavailable XANDER MUSTAFA Attending Unavailable XANDER MUSTAFA Attending Unavailable XANDER MUSTAFA Attending Unavailable CHRIS POTTS Attending Unavailable MICHAEL KRAUSE Attending Unavailable ANGEL MATHEW Referring Unavailable ANGEL MATHEW Referring Unavailable LEMUEL, RODY Referring Unavailable LEMUEL, RODY Referring Unavailable LEMUEL, RODY Referring Unavailable ALIREZA MCALLISTER Attending Unavailable ABBY AZEVEDO Referring Unavailable CAMRON WHITESIDE Admitting Unavailable Allergies Allergy Classification Reported Allergen(s) Allergy Type Date of Onset Reaction(s) Facility (3 sources) clopidogrel; Translations: [CLOPIDOGREL] Drug Allergy [facility] Repository (3 sources) hydroCHLOROthiazide; Translations: [HYDROCHLOROTHIAZIDE] Drug Allergy rash [facility] Repository (3 sources) Penicillin; Translations: [penicillin] Drug Allergy [facility] Repository (3 sources) Vancomycin; Translations: [VANCOMYCIN] Drug Allergy anaphylaxis [facility] Repository (2 sources) Substance with sulfonamide structure and antibacterial mechanism of action (substance) Drug allergy Unknown [facility] Other (1 source) clopidogrel Drug Allergy [facility] Repository (1 source) hydroCHLOROthiazide Drug Allergy [facility] Repository (1 source) Vancomycin Drug Allergy [facility] Repository (1 source) Penicillins; Translations: [PENICILLINS] Propensity to adverse reactions to drug (disorder) [facility] Repository (1 source) Sodium Chloride; Translations: [SODIUM CHLORIDE] Drug Allergy [facility] Repository (1 source) Sulfonamides (Antibiotic); Translations: [SULFA (SULFONAMIDE ANTIBIOTICS)] Propensity to adverse reactions to drug (disorder) [facility] Repository Medications Current Medications Medication Drug Class(es) Dates Sig (Normalized) Sig (Original) [id number] 200 actuat albuterol 0.09 mg/actuat metered dose inhaler (2 sources) beta2-Adrenergic Agonist take 2 puff(s) by inhalation every four hours as needed Ventolin HFA 108 (90 Base) MCG/ACT 2 puff as needed Inhalation every 4 hrs Active albuterol 0.833 mg/ml / ipratropium bromide 0.167 mg/ml inhalation solution (2 sources) Anticholinergic, beta2-Adrenergic Agonist take 3 mL by inhalation every six hours as needed Ipratropium-Albuterol 0.5-2.5 (3) MG/3ML 3 mL as needed Inhalation every 6 hrs Active aspirin 81 mg delayed release oral tablet (2 sources) Platelet Aggregation Inhibitor, Nonsteroidal Anti-inflammatory Drug take 1 tablet by mouth every twenty-four hours Aspirin Adult Low Dose 81 MG 1 tablet Orally Once a day Active atorvastatin 80 mg oral tablet (2 sources) HMG-CoA Reductase Inhibitor take 1 tablet by mouth every twenty-four hours Atorvastatin Calcium 80 MG 1 tablet Orally Once a day Active Cholecalciferol (1 source) Vitamin D take 1 capsule by mouth once daily Cholecalciferol 25 MCG (1000 UT) 1 capsule Orally Once a day for 90 days Active ferrous sulfate 325 mg oral tablet (1 source) take 1 tablet by mouth every twenty-four hours Ferrous Sulfate 325 (65 Fe) MG 1 tablet Orally ONCE A DAY Active 60 actuat fluticasone propionate 0.25 mg/actuat / salmeterol 0.05 mg/actuat dry powder inhaler (2 sources) Corticosteroid, beta2-Adrenergic Agonist take 1 puff(s) by inhalation twice daily Advair Diskus 250-50 MCG/ACT 1 puff Inhalation Twice a day Active furosemide 20 mg oral tablet (2 sources) Loop Diuretic Furosemide 20 MG as directed Orally Once a day Active Furosemide 40 MG 1 1/2 tablet Orally Once a day Active 24 hr isosorbide mononitrate 30 mg extended release oral tablet (1 source) Nitrate Vasodilator take 1 tablet by mouth every twenty-four hours Isosorbide Mononitrate ER 30 MG 1 tablet in the morning Orally Once a day Active Magnesium (1 source) take 1 tablet by mouth twice daily Magnesium 250 MG 1 tablet with a meal Orally TWICE A DAY Active magnesium oxide 400 mg oral tablet (1 source) take 1 tablet by mouth every twelve hours Magnesium Oxide 400 MG 1 TABLET Orally TWICE A DAY Active metoprolol tartrate 50 mg oral tablet (2 sources) beta-Adrenergic Fernando take 1 tablet by mouth every twelve hours Metoprolol Tartrate 50 MG 1 tablet with food Orally Twice a day Active olmesartan medoxomil 40 mg oral tablet (2 sources) Angiotensin 2 Receptor Fernando take 1 tablet by mouth every twenty-four hours Olmesartan Medoxomil 40 MG 1 tablet Orally Once a day Active omeprazole 20 mg delayed release oral capsule (2 sources) Proton Pump Inhibitor take 1 capsule by mouth once daily Omeprazole 20 MG 1 capsule 30 minutes before morning meal Orally Once a day Active prasugrel 10 mg oral tablet (1 source) P2Y12 Platelet Inhibitor take 1 tablet by mouth every twenty-four hours Effient 10 MG 1 tablet Orally Once a day Active Problems Active Problems Problem Classification Problem Date Documented Date Episodic/Chronic Cardiac dysrhythmias (4 sources) Cardiac arrhythmia, unspecified; Translations: [Other specified cardiac arrhythmias] Onset: 10-26-2022 Chronic Chronic kidney disease (6 sources) Chronic kidney disease stage 3A ; Translations: [Chronic kidney disease, stage 3a] Onset: 01-08-2022 Chronic Chronic obstructive pulmonary disease and bronchiectasis (5 sources) Chronic obstructive pulmonary disease, unspecified; Translations: [COPD UNSPECIFIED] Onset: 01-08-2022 Chronic Coronary atherosclerosis and other heart disease (8 sources) Atherosclerotic heart disease of [place] coronary artery without angina pectoris; Translations: [Unstable angina] Onset: 01-05-2022 Chronic Essential hypertension (2 sources) Essential (primary) hypertension; Translations: [Essential (primary) hypertension] Onset: 10-27-2022 Chronic Hypertension with complications and secondary hypertension (11 sources) Hypertensive renal disease; Translations: [Hypertensive chronic kidney disease with stage 1 through stage 4 chronic kidney disease, or unspecified chronic kidney disease] Onset: 01-08-2022 Chronic Nutritional deficiencies (2 sources) Vitamin D deficiency; Translations: [Vitamin D deficiency, unspecified] Chronic Other nutritional; endocrine; and metabolic disorders (1 source) Hypomagnesemia; Translations: [Hypomagnesemia] Chronic Other nutritional; endocrine; and metabolic disorders (1 source) Hypomagnesemia Chronic Other nutritional; endocrine; and metabolic disorders (1 source) Hyperuricemia without signs of inflammatory arthritis and tophaceous disease Episodic Unclassified (1 source) Other ventricular tachycardia; Translations: [Other ventricular tachycardia] Onset: 11-17-2022 Past or Other Problems Problem Classification Problem Date Documented Da te Episodic/Chronic Chronic kidney disease (3 sources) Chronic kidney disease; Translations: [CHRONIC KIDNEY DISEASE STAGE 3A] Onset: 08-06-2022 Deficiency and other anemia (3 sources) Anemia, unspecified; Translations: [Anemia, unspecified] Onset: 10-27-2022 Episodic Fluid and electrolyte disorders (8 sources) Hyperkalemia; Translations: [Hypo-osmolality and hyponatremia] Onset: 08-06-2022 Episodic Nonspecific chest pain (2 sources) Chest pain, unspecified; Translations: [Chest pain, unspecified] Onset: 10-30-2022 Episodic Screening and history of mental health and substance abuse codes (4 sources) Personal history of nicotine dependence; Translations: [PERSONAL HISTORY OF NICOTINE DEPEND] Onset: 01-19-2022 Episodic Unclassified (1 source) Other ventricular tachycardia; Translations: [Other ventricular tachycardia] Onset: 11-17-2022 Results Test Name Value Interpretation Reference Range Facility Follow-Upon 10-12-2023 Follow-Up [id number] Chiara Juraes 1955 Provider Department Center 10/12/2023 XANDER FARLEY Family History Problem Relation Age of Onset Stroke Mother Kidney disease Father Coronary artery disease Paternal Grandfather Family Status - Relation Status Age at Mother Father Paternal Grandfather Level of Service:37342 ME OFFICE/OUTPATIENT ESTABLISHED MOD MDM 30 MIN Normal [facility] Office Visiton 06-29-2023 Follow-up visit [id number] Chiara Juares 1955 Provider Department Center 06/29/2023 XANDER FARLEY Family History Problem Relation Age of Onset Stroke Mother Kidney disease Father Coronary artery disease Paternal Grandfather Family Status - Relation Status Age at Mother Father Paternal Grandfather Level of Service:11189 ME OFFICE/OUTPATIENT ESTABLISHED LOW MDM 20 MIN Reason for Visit and Comments: Follow-up [[id number]] - Holter monitor results Normal [facility] Office Visiton 03-02-2023 Follow-up visit [id number] Chiara Juares 1955 Provider Department Center 03/02/2023 XANDER FARLEY Family History Problem Relation Age of Onset Stroke Mother Kidney disease Father Coronary artery disease Paternal Grandfather Family Status - Relation Status Age at Mother Father Paternal Grandfather Level of Service:19685 ME OFFICE/OUTPATIENT NEW MODERATE MDM 45-59 MINUTES Normal [facility] Office Visiton 12-28-2022 Follow-up visit [id number] Chiara Juares 1955 F Date Provider Department Center 12/28/2022 1596-CHRIS POTTS JUSTIN Zhuperez Garcia Family History Problem Relation Age of Onset Stroke Mother Kidney disease Father Coronary artery disease Paternal Grandfather Family Status - Relation Status Age at Mother Father Paternal Grandfather Level of Service:23902 ME OFFICE/OUTPATIENT ESTABLISHED MOD MDM 30-39 MIN Normal [facility] Office Vis[facility] 11-17-2022 Follow-up visit [id number] Chiara Juares 1955 F Date Provider Department Center 11/17/2022 120-MICHAEL KRAUSEevperez Garcia Family History Problem Relation Age of Onset Stroke Mother Kidney disease Father Coronary artery disease Paternal Grandfather Family Status - Relation Status Age at Mother Father Paternal Grandfather Level of Service:50899 ME OFFICE/OUTPATIENT ESTABLISHED MOD MDM 30-39 MIN Reason for Visit and Comments: Follow-up [[id number]] [facility] 36on 11-04-2022 36 Contacted patient regarding scheduling of an EGD/CLN ast part of her [facility] hospital follow up, work up for anemia. Patient states she does not need this done continued to speak with her and she still insists then that she is not going to do it. Normal [facility] Telephoneon 11-04-2022 Telephone [id number] Chiara Juares 1955 F Date Provider Department Center 11/04/2022 [facility]LL [facility] Family History Problem Relation Age of Onset Stroke Mother Kidney disease Father Coronary artery disease Paternal Grandfather Family Status - Relation Status Age at Mother Father Paternal Grandfather Normal [facility] 30on 10-31-2022 30 Problem: Respiratory - Adult Goal: Achieves optimal ventilation and oxygenation Outcome: Progressing Flowsheets (Taken 10/31/2022723) Achieves optimal ventilation and oxygenation: Assess for changes in respiratory status Assess for changes in mentation and behavior Position to facilitate oxygenation and minimize respiratory effort Problem: Cardiovascular - Adult Goal: Maintains optimal cardiac output and hemodynamic stability Outcome: Progressing Flowsheets (Taken 10/31/2022723) Maintains optimal cardiac output and hemodynamic stability: Monitor blood pressure and heart rate Monitor urine output and notify Licensed Independent Practitioner for values outside of normal range Assess for signs of decreased cardiac output Goal: Absence of cardiac dysrhythmias or at baseline Outcome: Progressing Flowsheets (Taken 10/31/2022723) Absence of cardiac dysrhythmias or at baseline: Monitor cardiac rate and rhythm Administer antiarrhythmia medication and electrolyte replacement as ordered Assess for signs of decreased cardiac output Problem: Pain - Adult Goal: Verbalizes/displays adequate comfort level or baseline comfort level Outcome: Progressing Flowsheets (Taken 10/31/2022824) Verbalizes/displays adequate comfort level or baseline comfort level: Encourage patient to monitor pain and request assistance Assess pain using appropriate pain scale Administer analgesics based on type and severity of pain and evaluate response Implement non-pharmacological measures as appropriate and evaluate response Problem: Safety - Adult Goal: Free from fall injury Outcome: Progressing Flowsheets (Taken 10/31/2022724) Free from fall injury: Assess patient frequently for physical needs Identify cognitive and physical deficits and behaviors that affect risk of falls [place] fall precautions as indicated by assessment Educate patient/family on patient safety, including physical limitations Instruct patient to call for assistance with activity based on assessment Modify environment to reduce risk of injury Consider OT/PT consult to assist with strengthening/mobility Problem: Discharge Planning Goal: Discharge to home or other facility with appropriate resources Outcome: Progressing Flowsheets (Taken 10/31/2022723) Discharge to home or other facility with appropriate resources: Identify barriers to discharge with patient and caregiver Arrange for needed discharge resources and transportation as appropriate Identify discharge learning needs (meds, wound care, etc) Problem: Chronic Conditions and Co-morbidities Goal: Patient's chronic conditions and co-morbidity symptoms are monitored and maintained or improved Outcome: Progressing Flowsheets (Taken 10/31/2022723) Care Plan - Patient's Chronic Conditions and Co-Morbidity Symptoms are Monitored and Maintained or Improved: Monitor and assess patient's chronic conditions and comorbid symptoms for stability, deterioration, or improvement Collaborate with multidisciplinary team to address chronic and comorbid conditions and prevent exacerbation or deterioration Update acute care plan with appropriate goals if chronic or comorbid symptoms are exacerbated and prevent overall improvement and discharge Problem: Hematologic - Adult Goal: Maintains hematologic stability Outcome: Progressing Flowsheets (Taken 10/31/2022723) Maintains hematologic stability: Assess for signs and symptoms of bleeding or hemorrhage Monitor labs for bleeding or clotting disorders Administer blood products/factors as ordered Problem: Neurosensory - Adult Goal: Achieves stable or improved neurological status Outcome: Progressing Flowsheets (Taken 10/31/2022723) Achieves stable or improved neurological status: Assess for and report changes in neurological status Initiate measures to prevent increased intracranial pressure Maintain blood pressure and fluid volume within ordered parameters to optimize cerebral perfusion and minimize risk of hemorrhage Monitor temperature, glucose, and sodium. Initiate appropriate interventions as ordered Problem: Skin/Tissue Integrity - Adult Goal: Skin integrity remains intact Outcome: Progressing Flowsheets (Taken 10/31/2022723) Skin integrity remains intact: Monitor for areas of redness and/or skin breakdown Assess vascular access sites hourly Problem: Musculoskeletal - Adult Goal: Return mobility to safest level of function Outcome: Progressing Flowsheets (Taken 10/31/2022723) Return mobility to safest level of function: Assess patient stability and activity tolerance for standing, transferring and ambulating with or without assistive devices Assist with transfers and ambulation using safe patient handling equipment as needed Ensure adequate protection for wounds/incisions during mobilization Problem: Gastrointestinal - Adult Goal: Maintains or returns to baseline bowel function Outcome (more content not included)... Normal [facility] 30 The patient is Moderately Stable - Low risk of patient condition declining or worsening The patient's goals for the shift include comfort The clinical goals for the shift include safety Normal [facility] BASIC METABOLIC PANELon 08-0 Anion gap [Moles/Vol] 11 mmol/L Normal 7-20 [facility] Comment on above: Performed By: #### L [id number] #### [facility] ([facility]) [address] [place] [address] Calcium [Mass/Vol] 8.5 mg/dL Low 8.6-10.3 [facility] Comment on above: Performed By: #### L [id number] #### [facility] ([facility]) [address] [place] [address] Chloride [Moles/Vol] 98 mmol/L Normal 98-107 [facility] Comment on above: Performed By: #### L [id number] #### [facility] ([facility]) [address] [place] [address] CO2 [Moles/Vol] 23 mmol/L Normal 21-31 [facility] Comment on above: Performed By: #### L [id number] #### [facility] ([facility]) [address] [place] [address] Creatinine [Mass/Vol] 1.07 mg/dL Normal 0.60-1.20 [facility] Comment on above: Performed By: #### L [id number] #### [facility] ([facility]) [address] [place] [address] GLOMERULAR FILTRATION RATE ML/MIN/1.73 SQ M.PREDICTED 56.2 mL/min/1.73m*2 Low >[address]0 [facility] Comment on above: Result Comment: The [facility]???s estimated glomerular filtration rate (eGFR) will no longer include consideration of race in its calculation. The National Kidney Foundation???s eGFR Task Force developed new recommendations for the estimation of the glomerular filtration rate in the [place] They recommend immediate implementation of the new equation refit without the race variable in all laboratories because the calculation does not include race. In addition to not including race in the calculation and reporting, it included diversity in its development, and has acceptable performance characteristics and potential consequences that do not disproportionately affect any one group of individuals. Performed By: #### L [id number] #### [facility] ([facility]) [address] [place] [address] Glucose [Mass/Vol] 98 mg/dL Normal 70-100 [facility] Comment on above: Performed By: #### L [id number] #### [facility] ([facility]) [address] [place] [address] Potassium [Moles/Vol] 3.8 mmol/L Normal 3.5-5.1 [facility] Comment on above: Performed By: #### L [id number] #### [facility] ([facility]) [address] [place] [address] Sodium [Moles/Vol] 128 mmol/L Low 136-145 [facility] Comment on above: Performed By: #### L [id number] #### [facility] ([facility] [address] [place] [address] Urea nitrogen [Mass/Vol] 18 mg/dL Normal 7-25 [facility] Comment on above: Performed By: #### L [id number] #### [facility] ([facility] [address] [place] [address] UREA NITROGEN/CREATININE (MASS RATIO) IN SER/PLAS 16.8 Normal [facility] Comment on above: Performed By: #### L [id number] #### [facility] ([facility] [address] [place] [address] CBCon 10-31-2022 Erythrocyte distribution width (RBC) [Ratio] 14.6 % Normal 11.5-15.0 [facility] Comment on above: Performed By: #### L [id number] #### [facility] ([facility]) [address] [place] [address] ERYTHROCYTE MEAN CORPUSCULAR HEMOGLOBIN CONCENTRATION (G/DL) BY AUTOMATED 33.5 g/dL Normal 32.0-35.0 [facility] Comment on above: Performed By: #### L [id number] #### [facility] ([facility]) [address] [place] [address] Hematocrit (Bld) [Volume fraction] 24.2 % Low 36.0-48.0 [facility] Comment on above: Performed By: #### L [id number] #### [facility] ([facility] [address] [place] [address] Hemoglobin (Bld) [Mass/Vol] 8.1 g/dL Low 12.0-15.0 [facility] Comment on above: Performed By: #### L [id number] #### [facility] ([facility] [address] [place] [address] MCH (RBC) [Entitic mass] 28.1 pg Normal 27.0-33.0 [facility] Comment on above: Performed By: #### L [id number] #### [facility] ([facility]) [address] [place] [address] MCV (RBC) [Entitic vol] 84.0 fL Normal 82.0-98.0 [facility] Comment on above: Performed By: #### L [id number] #### [facility] ([facility]) [address] [place] [address] PLATELETS (10*3/UL) IN BLOOD AUTOMATED COUNT 317 10*3/uL Normal 150-400 [facility] Comment on above: Performed By: #### L [id number] #### [facility] ([facility]) [address] [facility] [address] RBC (Bld) [#/Vol] 2.88 10*6/uL Low 3.80-5.00 [facility] Comment on above: Performed By: #### L [id number] #### [facility] ([facility]) [address] [address] WBC (Bld) [#/Vol] 7.49 10*3/uL Normal 4.00-10.60 [facility] Comment on above: Performed By: #### L [id number] #### [facility] ([facility]) [address] [place] [address] MAGNESIUMon 10-31-2022 Magnesium [Mass/Vol] 1.8 mg/dL Low 1.9-2.7 [facility] Comment on above: Performed By: #### L [id number] ####[facility] ([facility])[address] [place] [address] 30on 10-30-2022 30 Daily Case Managemen t Update Multidisciplinary rounds have been completed. Barriers to Discharge: Right heart cath and coronary angiography today. Fluid restriction changed from 2L to 1.2L for hyponatremia. Hgb 8.4, unchanged from yesterday. Continue IV iron. Plan for outpatient cardiac rehab at time of discharge. Diet: Dietary Orders (From admission, onward) Start Ordered 10/30/229 Diet NPO Diet effective now Comments: Sips with medications 10/30/229 Physician Expected Discharge Date: 11/01/2022 Discharge Delays: PT Six Click Score: 23 OT Six Click Score: 21 PT Recommendations: Home, Other (Comment) (Outpatient cardiac rehab) OT Recommendations: Home (OP cardiac rehab) New Consults: Consult Orders (From admission, onward) Start Ordered 10/27/22 0359 Inpatient consult to Nephrology Once Specialty: Nephrology Provider: (Not yet assigned) Question Answer Comment [employer] NEPHROLOGY TEAM Reason for Consult? Hyponatremia Level of Consultation Consultation and Management 10/27/22 0400 10/27/22 0104 Inpatient consult to Cardiology Once Specialty: Cardiology Provider: (Not yet assigned) Question Answer Comment Reason for Consult? [employer] HOSPITALIST (ADMIT/FLOAT) Level of Consultation Consultation and Management 10/27/22 0105 Therapy Orders (From admission, onward) Start Ordered 10/28/22 173 OT eval and treat Until therapy completed Question: Reason for OT? Answer: debility 10/28/22 173 Normal [facility] 30 Problem: Respiratory - Adult Goal: Achieves optimal ventilation and oxygenation Outcome: Progressing Flowsheets (Taken 10/30/2022723) Achieves optimal ventilation and oxygenation: Assess for changes in respiratory status Position to facilitate oxygenation and minimize respiratory effort Assess for changes in mentation and behavior Problem: Cardiovascular - Adult Goal: Maintains optimal cardiac output and hemodynamic stability Outcome: Progressing Flowsheets (Taken 10/30/2022723) Maintains optimal cardiac output and hemodynamic stability: Assess for signs of decreased cardiac output Monitor urine output and notify Licensed Independent Practitioner for values outside of normal range Monitor blood pressure and heart rate Goal: Absence of cardiac dysrhythmias or at baseline Outcome: Progressing Flowsheets (Taken 10/30/2022723) Absence of cardiac dysrhythmias or at baseline: Monitor cardiac rate and rhythm Assess for signs of decreased cardiac output Administer antiarrhythmia medication and electrolyte replacement as ordered Problem: Pain - Adult Goal: Verbalizes/displays adequate comfort level or baseline comfort level Outcome: Progressing Problem: Safety - Adult Goal: Free from fall injury Outcome: Progressing Flowsheets (Taken 10/30/2022724) Free from fall injury: Assess patient frequently for physical needs Identify cognitive and physical deficits and behaviors that affect risk of falls [place] fall precautions as indicated by assessment Educate patient/family on patient safety, including physical limitations Problem: Discharge Planning Goal: Discharge to home or other facility with appropriate resources Outcome: Progressing Flowsheets (Taken 10/30/2022723) Discharge to home or other facility with appropriate resources: Identify barriers to discharge with patient and caregiver Arrange for needed discharge resources and transportation as appropriate Identify discharge learning needs (meds, wound care, etc) Problem: Chronic Conditions and Co-morbidities Goal: Patient's chronic conditions and co-morbidity symptoms are monitored and maintained or improved Outcome: Progressing Flowsheets (Taken 10/30/2022723) Care Plan - Patient's Chronic Conditions and Co-Morbidity Symptoms are Monitored and Maintained or Improved: Monitor and assess patient's chronic conditions and comorbid symptoms for stability, deterioration, or improvement Collaborate with multidisciplinary team to address chronic and comorbid conditions and prevent exacerbation or deterioration Update acute care plan with appropriate goals if chronic or comorbid symptoms are exacerbated and prevent overall improvement and discharge Problem: Hematologic - Adult Goal: Maintains hematologic stability Outcome: Progressing Flowsheets (Taken 10/30/2022723) Maintains hematologic stability: Assess for signs and symptoms of bleeding or hemorrhage Monitor labs for bleeding or clotting disorders Problem: Neurosensory - Adult Goal: Achieves stable or improved neurological status Outcome: Progressing Flowsheets (Taken 10/30/2022723) Achieves stable or improved neurological status: Assess for and report changes in neurological status Initiate measures to prevent increased intracranial pressure Maintain blood pressure and fluid volume within ordered parameters to optimize cerebral perfusion and minimize risk of hemorrhage Monitor temperature, glucose, and sodium. Initiate appropriate interventions as ordered Problem: Skin/Tissue Integrity - Adult Goal: Skin integrity remains intact Outcome: Progressing Flowsheets (Taken 10/30/2022723) Skin integrity remains intact: Monitor for areas of redness and/or skin breakdown Problem: Musculoskeletal - Adult Goal: Return mobility to safest level of function Outcome: Progressing Flowsheets (Taken 10/30/2022723) Return mobility to safest level of function: Assess patient stability and activity tolerance for standing, transferring and ambulating with or without assistive devices Assist with transfers and ambulation using safe patient handling equipment as needed Ensure adequate protection for wounds/incisions during mobilization Problem: Gastrointestinal - Adult Goal: Maintains or returns to baseline bowel function Outcome: Progressing Flowsheets (Taken 10/30/2022723) Maintains or returns to baseline bowel function: Assess bowel function Encourage oral fluids to ensure adequate hydration Administer ordered medications as needed Encourage mobilization and activity Problem: Genitourinary - Adult Goal: Absence of urinary retention Outcome: Progressing Flowsheets (Taken 10/30/2022 0724) Absence of urinary retention: Assess patient???s ability to void and empty bladder Monitor intake/output and perform bladder scan as needed Problem: Infection - Adult Goal: Absence of infection at discharge Outcome: Progressing Flowsheets (more content not included)... Normal [facility] 30 The patient is Moderately Stable - Low risk of patient condition declining or worsening The patient's goals for the shift include rest/sleep The clinical goals for the shift include VSS Pt had stress test- had chest pain relieved by NTG after. Freq PVCs cont-SOB with exertion. To have heart cath 10/30. Normal [facility] BASIC METABOLIC PANELon 08-0 Anion gap [Moles/Vol] 11 mmol/L Normal 7-20 [facility] Comment on above: Performed By: #### L [id number] #### [facility] ([facility]) [address] [place] [address] Calcium [Mass/Vol] 8.7 mg/dL Normal 8.6-10.3 [facility] Comment on above: Performed By: #### L [id number] #### [facility] ([facility]) [address] [place] [address] Chloride [Moles/Vol] 95 mmol/L Low 98-107 [facility] Comment on above: Performed By: #### L [id number] #### [facility] ([facility]) [address] [place] [address] CO2 [Moles/Vol] 23 mmol/L Normal 21-31 [facility] Comment on above: Performed By: #### L [id number] #### [facility] ([facility]) [address] [place] [address] Creatinine [Mass/Vol] 0.98 mg/dL Normal 0.60-1.20 [facility] Comment on above: Performed By: #### L [id number] #### [facility] ([facility]) [address] [place] [address] GLOMERULAR FILTRATION RATE ML/MIN/1.73 SQ M.PREDICTED 62.5 mL/min/1.73m*2 Normal >60.0 [facility] Comment on above: Result Comment: [facility]???s estimated glomerular filtration rate (eGFR) will no longer include consideration of race in its calculation. The National Kidney Foundation???s eGFR Task Force developed new recommendations for the estimation of the glomerular filtration rate in the [place] They recommend immediate implementation of the new equation refit without the race variable in all laboratories because the calculation does not include race. In addition to not including race in the calculation and reporting, it included diversity in its development, and has acceptable performance characteristics and potential consequences that do not disproportionately affect any one group of individuals. Performed By: #### L [id number] #### [facility] ([facility]) [address] [place] [address] Glucose [Mass/Vol] 93 mg/dL Normal 70-100 [facility] Comment on above: Performed By: #### L [id number] #### [facility] ([facility]) [address] [place] [address] Potassium [Moles/Vol] 3.9 mmol/L Normal 3.5-5.1 [facility] Comment on above: Performed By: #### L [id number] #### [facility] ([facility]) [address] [place] [address] Sodium [Moles/Vol] 125 mmol/L Low 136-145 [facility] Comment on above: Performed By: #### L [id number] #### [facility] ([facility]) [address] [place] [address] Urea nitrogen [Mass/Vol] 18 mg/dL Normal 7-25 [facility] Comment on above: Performed By: #### L [id number] #### [facility] ([facility]) [address] [place] [address] UREA NITROGEN/CREATININE (MASS RATIO) IN SER/PLAS 18.4 Normal [facility] Comment on above: Performed By: #### L [id number] #### [facility] ([facility]) [address] [place] [address] CBCon 10-30-2022 Erythrocyte distribution width (RBC) [Ratio] 14.4 % Normal 11.5-15.0 [facility] Comment on above: Performed By: #### L [id number] ####[facility] ([facility] [place] [address] ERYTHROCYTE MEAN CORPUSCULAR HEMOGLOBIN CONCENTRATION (G/DL) BY AUTOMATED 33.9 g/dL Normal 32.0-35.0 [facility] Comment on above: Performed By: #### L [id number] ####[facility] ([facility] [place] [address] Hematocrit (Bld) [Volume fraction] 24.8 % Low 36.0-48.0 [facility] Comment on above: Performed By: #### L [id number] ####[facility] ([facility] [place] [address] Hemoglobin (Bld) [Mass/Vol] 8.4 g/dL Low 12.0-15.0 [facility] Comment on above: Performed By: #### L [id number] ####[facility] (BEAKER)[address] [place] [address] MCH (RBC) [Entitic mass] 28.1 pg Normal 27.0-33.0 [facility] Comment on above: Performed By: #### L [id number] ####[facility] ([facility]AKER)[address] [place] [address] MCV (RBC) [Entitic vol] 82.9 fL Normal 82.0-98.0 [facility] Comment on above: Performed By: #### L [id number] ####[facility] ([facility]AKER)[address] [place] [address] PLATELETS (10*3/UL) IN BLOOD AUTOMATED COUNT 289 10*3/uL Normal 150-400 [facility] Comment on above: Performed By: #### L [id number] ####[facility] ([facility]AKER)[address] [place] [address] RBC (Bld) [#/Vol] 2.99 10*6/uL Low 3.80-5.00 [facility] Comment on above: Performed By: #### L [id number] ####[facility] ([facility])[address] [place] [address] WBC (Bld) [#/Vol] 5.62 10*3/uL Normal 4.00-10.60 [facility] Comment on above: Performed By: #### L [id number] ####[facility] ([facility])[address] [place] [address] HPon 10-30-2022 HP --- Attestation signed by Robbie Kaur MD at 10/30/2022 10:42 AM H and P reviewed. No significant changes. Patient presenting with chest pain, dyspnea on exertion, and NSVT. Plan to proceed with cath. Procedure was explained to patient at length and in detail. Risks, benefits, and alternatives were discussed. Patient is informed that risks of this invasive procedure include, but are not limited to, bleeding, hematoma, kidney injury, CVA, arrythmia requiring defibrillation, need for emergent open heart surgery, and . Patient understands these risks and wishes to proceed. Robbie Kaur MD H&P reviewed. The patient was examined and there are no changes to the H&P. Patient had chest pain during Lexiscan stress test which was done for ischemic evaluation due to NSVTs. Proceed with RHC and coronary angiography today. [facility] NURSNOTEon 10-30-2022 NURSNOTE Right jugular cath s ite bleeding at 1700 - proposal writer RN held firm pressure for 5 minutes and pressure dressing applied. Rechecked after 15 minutes and site still bleeding. laboratory technician RN was called and sent physician to bedside to evaluate. Hemostasis achieved and MD placed surgicel, gauze, and tegaderm to right jugular site. VS stable. [facility] 30on 10-29-2022 30 Daily Case Managemen t Update Multidisciplinary rounds have been completed. Barriers to Discharge: Stress test today. On 2L fluid restriction for hyponatremia. Nephro starting sodium chloride tablets BID. Trending hgb and transfusing if less than 7. GI recommending iron injections for 5 days, started yesterday. Diet: Dietary Orders (From admission, onward) Start Ordered 10/29/22 1623 Regular Diet Heart Healthy/HTN, CABG,Stroke, (2gNA, low fat, low cholesterol) Diet effective now Question Answer Comment Room Service? Yes Fat restriction: Heart Healthy/HTN, CABG,Stroke, (2gNA, low fat, low cholesterol) 10/29/22 1622 Physician Expected Discharge Date: 10/31/2022 Discharge Delays: PT Six Click Score: 23 OT Six Click Score: 21 PT Recommendations: Home, Other (Comment) (Outpatient cardiac rehab) OT Recommendations: Home (OP cardiac rehab) New Consults: Consult Orders (From admission, onward) Start Ordered 10/27/22 0359 Inpatient consult to Nephrology Once Specialty: Nephrology Provider: (Not yet assigned) Question Answer Comment [employer] NEPHROLOGY TEAM Reason for Consult? Hyponatremia Level of Consultation Consultation and Management 10/27/22 0400 10/27/22 0104 Inpatient consult to Cardiology Once Specialty: Cardiology Provider: (Not yet assigned) Question Answer Comment Reason for Consult? [employer] HOSPITALIST (ADMIT/FLOAT) Level of Consultation Consultation and Management 10/27/22 0105 Therapy Orders (From admission, onward) Start Ordered 10/28/22 1734 OT eval and treat Until therapy completed Question: Reason for OT? Answer: debility 10/28/221732 [facility] 30 Problem: Respiratory - Adult Goal: Achieves optimal ventilation and oxygenation Outcome: Progressing Flowsheets (Taken 10/29/2022 0725) Achieves optimal ventilation and oxygenation: Assess for changes in respiratory status Assess for changes in mentation and behavior Position to facilitate oxygenation and minimize respiratory effort Problem: Cardiovascular - Adult Goal: Maintains optimal cardiac output and hemodynamic stability Outcome: Progressing Flowsheets (Taken 10/29/2022724) Maintains optimal cardiac output and hemodynamic stability: Monitor blood pressure and heart rate Assess for signs of decreased cardiac output Monitor urine output and notify Licensed Independent Practitioner for values outside of normal range Goal: Absence of cardiac dysrhythmias or at baseline Outcome: Progressing Flowsheets (Taken 10/29/2022724) Absence of cardiac dysrhythmias or at baseline: Monitor cardiac rate and rhythm Assess for signs of decreased cardiac output Administer antiarrhythmia medication and electrolyte replacement as ordered Problem: Pain - Adult Goal: Verbalizes/displays adequate comfort level or baseline comfort level Outcome: Progressing Problem: Safety - Adult Goal: Free from fall injury Outcome: Progressing Flowsheets (Taken 10/29/2022734) Free from fall injury: Assess patient frequently for physical needs Identify cognitive and physical deficits and behaviors that affect risk of falls [place] fall precautions as indicated by assessment Educate patient/family on patient safety, including physical limitations Problem: Discharge Planning Goal: Discharge to home or other facility with appropriate resources Outcome: Progressing Flowsheets (Taken 10/29/2022724) Discharge to home or other facility with appropriate resources: Identify barriers to discharge with patient and caregiver Arrange for needed discharge resources and transportation as appropriate Problem: Chronic Conditions and Co-morbidities Goal: Patient's chronic conditions and co-morbidity symptoms are monitored and maintained or improved Outcome: Progressing Flowsheets (Taken 10/29/2022724) Care Plan - Patient's Chronic Conditions and Co-Morbidity Symptoms are Monitored and Maintained or Improved: Monitor and assess patient's chronic conditions and comorbid symptoms for stability, deterioration, or improvement Collaborate with multidisciplinary team to address chronic and comorbid conditions and prevent exacerbation or deterioration Update acute care plan with appropriate goals if chronic or comorbid symptoms are exacerbated and prevent overall improvement and discharge Problem: Hematologic - Adult Goal: Maintains hematologic stability Outcome: Progressing Flowsheets (Taken 10/29/2022724) Maintains hematologic stability: Assess for signs and symptoms of bleeding or hemorrhage Monitor labs for bleeding or clotting disorders Problem: Neurosensory - Adult Goal: Achieves stable or improved neurological status Outcome: Progressing Flowsheets (Taken 10/29/2022724) Achieves stable or improved neurological status: Assess for and report changes in neurological status Problem: Skin/Tissue Integrity - Adult Goal: Skin integrity remains intact Outcome: Progressing Flowsheets (Taken 10/29/2022724) Skin integrity remains intact: Monitor for areas of redness and/or skin breakdown Problem: Musculoskeletal - Adult Goal: Return mobility to safest level of function Outcome: Progressing Flowsheets (Taken 10/29/2022724) Return mobility to safest level of function: Assess patient stability and activity tolerance for standing, transferring and ambulating with or without assistive devices Assist with transfers and ambulation using safe patient handling equipment as needed Ensure adequate protection for wounds/incisions during mobilization Problem: Gastrointestinal - Adult Goal: Maintains or returns to baseline bowel function Outcome: Progressing Flowsheets (Taken 10/29/2022724) Maintains or returns to baseline bowel function: Assess bowel function Encourage oral fluids to ensure adequate hydration Administer ordered medications as needed Encourage mobilization and activity Problem: Genitourinary - Adult Goal: Absence of urinary retention Outcome: Progressing Flowsheets (Taken 10/29/2022724) Absence of urinary retention: Assess patient???s ability to void and empty bladder Monitor intake/output and perform bladder scan as needed Problem: Infection - Adult Goal: Absence of infection at discharge Outcome: Progressing Flowsheets (Taken 10/29/2022724) Absence of infection at discharge: Assess and monitor for signs and symptoms of infection Monitor lab/diagnostic results Problem: Metabolic/Fluid and Electrolytes - Adult Goal: Electrolytes maintained within normal limits Outcome: Progressing Flowsheets (Taken 10/29/2022724) Electrolytes maintained within nor (more content not included)... Normal [facility] 30 The patient is Moderately Stable - Low risk of patient condition declining or worsening The patient's goals for the shift include rest /sleep The clinical goals for the shift include VSS Cont to have frequent PVCs- amio drip discontinued- oral amio started. Got 1 unit pRBC- stress test planned for tomorrow. Problem: Cardiovascular - Adult Goal: Absence of cardiac dysrhythmias or at baseline Outcome: Not Progressing Normal [facility] BASIC METABOLIC PANELon 08-0 Anion gap [Moles/Vol] 9 mmol/L Normal 7-20 [facility] Comment on above: Performed By: #### L [id number] #### [facility] ([facility]) [address] [place] [address] Calcium [Mass/Vol] 8.5 mg/dL Low 8.6-10.3 [facility] Comment on above: Performed By: #### L [id number] #### [facility] ([facility]) [address] [place] [address] Chloride [Moles/Vol] 95 mmol/L Low 98-107 [facility] Comment on above: Performed By: #### L [id number] #### [facility] ([facility]) [address] [place] [address] CO2 [Moles/Vol] 25 mmol/L Normal 21-31 [facility] Comment on above: Performed By: #### L [id number] #### [facility] ([facility]) [address] [place] [address] Creatinine [Mass/Vol] 0.99 mg/dL Normal 0.60-1.20 [facility] Comment on above: Performed By: #### L [id number] #### [facility] ([facility]) [address] [place] [address] GLOMERULAR FILTRATION RATE ML/MIN/1.73 SQ M.PREDICTED 61.7 mL/min/1.73m*2 Normal >60.0 [facility] Comment on above: Result Comment: [facility]???s estimated glomerular filtration rate (eGFR) will no longer include consideration of race in its calculation. The National Kidney Foundation???s eGFR Task Force developed new recommendations for the estimation of the glomerular filtration rate in the [place] They recommend immediate implementation of the new equation refit without the race variable in all laboratories because the calculation does not include race. In addition to not including race in the calculation and reporting, it included diversity in its development, and has acceptable performance characteristics and potential consequences that do not disproportionately affect any one group of individuals. Performed By: #### L [id number] #### [facility] ([facility]) [address] [place] [address] Glucose [Mass/Vol] 98 mg/dL Normal 70-100 [facility] Comment on above: Performed By: #### L [id number] #### [facility] ([facility]) [address] [place] [address] Potassium [Moles/Vol] 4.2 mmol/L Normal 3.5-5.1 [facility] Comment on above: Performed By: #### L [id number] #### [facility] ([facility]) [address] [place] [address] Sodium [Moles/Vol] 125 mmol/L Low 136-145 [facility] Comment on above: Performed By: #### L [id number] #### [facility] ([facility]) [address] [place] [address] Urea nitrogen [Mass/Vol] 19 mg/dL Normal 7-25 [facility] Comment on above: Performed By: #### L [id number] #### [facility] ([facility]) [address] [place] [address] UREA NITROGEN/CREATININE (MASS RATIO) IN SER/PLAS 19.2 Normal [facility] Comment on above: Performed By: #### L [id number] #### [facility] ([facility]) [address] [place] [address] CBCon 10-29-2022 Erythrocyte distribution width (RBC) [Ratio] 14.3 % Normal 11.5-15.0 [facility] Comment on above: Performed By: #### L [id number] ####[facility] ([facility])[address] [place] [address] ERYTHROCYTE MEAN CORPUSCULAR HEMOGLOBIN CONCENTRATION (G/DL) BY AUTOMATED 33.5 g/dL Normal 32.0-35.0 [facility] Comment on above: Performed By: #### L [id number] ####[facility] ([facility])[address] [place] [address] Hematocrit (Bld) [Volume fraction] 25.1 % Low 36.0-48.0 [facility] Comment on above: Performed By: #### L [id number] ####[facility] ([facility] [place] [address] Hemoglobin (Bld) [Mass/Vol] 8.4 g/dL Low 12.0-15.0 [facility] Comment on above: Performed By: #### L [id number] ####[facility] ([facility])[address] [place] [address] MCH (RBC) [Entitic mass] 28.2 pg Normal 27.0-33.0 [facility] Comment on above: Performed By: #### L [id number] ####[facility] ([facility])[address] [address] MCV (RBC) [Entitic vol] 84.2 fL Normal 82.0-98.0 [facility] Comment on above: Performed By: #### L [id number] ####[facility] ([facility])[address] [place] [address] PLATELETS (10*3/UL) IN BLOOD AUTOMATED COUNT 305 10*3/uL Normal 150-400 [facility] Comment on above: Performed By: #### L [id number] ####[facility] ([facility])[address] [address] RBC (Bld) [#/Vol] 2.98 10*6/uL Low 3.80-5.00 [facility] Comment on above: Performed By: #### L [id number] ####[facility] ([facility])[address] [place] [address] WBC (Bld) [#/Vol] 6.93 10*3/uL Normal 4.00-10.60 [facility] Comment on above: Performed By: #### L [id number] ####[facility] ([facility])[address] [place] [address] MAGNESIUMon 10-29-2022 Magnesium [Mass/Vol] 1.9 mg/dL Normal 1.9-2.7 [facility] Comment on above: Performed By: #### L [id number] ####[facility] ([facility])[address] [place] [address] OSMOLALITYon 10-29-2022 OSMOLALITY MEASURED 264 mOsm/kg Low 285-305 [facility] Comment on above: Performed By: #### L [id number] ####[facility] ([facility])[address] [place] [address] OSMOLALITY, URINEon 10-30-19 23 OSMOLALITY URINE 396 mOsm/kg Normal 50-1400 [facility] Comment on above: Performed By: #### L [id number] ####[facility] ([facility])[address] [address] SODIUM, URINE, RANDOMon Sodium (U) [Moles/Vol] 48 mmol/L Normal [facility] Comment on above: Performed By: #### L [id number] ####[facility] ([facility])[address] [address] 30on 10-28-2022 30 Problem: Respiratory - Adult Goal: Achieves optimal ventilation and oxygenation Outcome: Progressing Flowsheets (Taken 10/28/2022724) Achieves optimal ventilation and oxygenation: Assess for changes in respiratory status Assess for changes in mentation and behavior Position to facilitate oxygenation and minimize respiratory effort Oxygen supplementation based on oxygen saturation or arterial blood gases Problem: Cardiovascular - Adult Goal: Maintains optimal cardiac output and hemodynamic stability Outcome: Progressing Flowsheets (Taken 10/28/2022724) Maintains optimal cardiac output and hemodynamic stability: Monitor blood pressure and heart rate Monitor urine output and notify Licensed Independent Practitioner for values outside of normal range Assess for signs of decreased cardiac output Goal: Absence of cardiac dysrhythmias or at baseline Outcome: Progressing Flowsheets (Taken 10/28/2022724) Absence of cardiac dysrhythmias or at baseline: Monitor cardiac rate and rhythm Assess for signs of decreased cardiac output Administer antiarrhythmia medication and electrolyte replacement as ordered Problem: Pain - Adult Goal: Verbalizes/displays adequate comfort level or baseline comfort level Outcome: Progressing Flowsheets (Taken 10/28/2022724) Verbalizes/displays adequate comfort level or baseline comfort level: Encourage patient to monitor pain and request assistance Assess pain using appropriate pain scale Administer analgesics based on type and severity of pain and evaluate response Implement non-pharmacological measures as appropriate and evaluate response Problem: Safety - Adult Goal: Free from fall injury Outcome: Progressing Flowsheets (Taken 10/28/2022735) Free from fall injury: Assess patient frequently for physical needs Identify cognitive and physical deficits and behaviors that affect risk of falls [place] fall precautions as indicated by assessment Educate patient/family on patient safety, including physical limitations Problem: Discharge Planning Goal: Discharge to home or other facility with appropriate resources Outcome: Progressing Flowsheets (Taken 10/28/2022724) Discharge to home or other facility with appropriate resources: Identify barriers to discharge with patient and caregiver Arrange for needed discharge resources and transportation as appropriate Identify discharge learning needs (meds, wound care, etc) Problem: Chronic Conditions and Co-morbidities Goal: Patient's chronic conditions and co-morbidity symptoms are monitored and maintained or improved Outcome: Progressing Flowsheets (Taken 10/28/2022724) Care Plan - Patient's Chronic Conditions and Co-Morbidity Symptoms are Monitored and Maintained or Improved: Monitor and assess patient's chronic conditions and comorbid symptoms for stability, deterioration, or improvement Collaborate with multidisciplinary team to address chronic and comorbid conditions and prevent exacerbation or deterioration Update acute care plan with appropriate goals if chronic or comorbid symptoms are exacerbated and prevent overall improvement and discharge Problem: Hematologic - Adult Goal: Maintains hematologic stability Outcome: Progressing Flowsheets (Taken 10/28/2022724) Maintains hematologic stability: Assess for signs and symptoms of bleeding or hemorrhage Monitor labs for bleeding or clotting disorders Problem: Neurosensory - Adult Goal: Achieves stable or improved neurological status Outcome: Progressing Flowsheets (Taken 10/28/2022724) Achieves stable or improved neurological status: Assess for and report changes in neurological status Initiate measures to prevent increased intracranial pressure Maintain blood pressure and fluid volume within ordered parameters to optimize cerebral perfusion and minimize risk of hemorrhage Monitor temperature, glucose, and sodium. Initiate appropriate interventions as ordered Problem: Skin/Tissue Integrity - Adult Goal: Skin integrity remains intact Outcome: Progressing Flowsheets (Taken 10/28/2022724) Skin integrity remains intact: Monitor for areas of redness and/or skin breakdown Problem: Musculoskeletal - Adult Goal: Return mobility to safest level of function Outcome: Progressing Flowsheets (Taken 10/28/2022724) Return mobility to safest level of function: Assess patient stability and activity tolerance for standing, transferring and ambulating with or without assistive devices Assist with transfers and ambulation using safe patient handling equipment as needed Problem: Gastrointestinal - Adult Goal: Maintains or returns to baseline bowel function Outcome: Progressing Flowsheets (Taken 10/28/2022 0725) Maintains or returns to baseline bowel function: Assess bowel function Encourage oral fluids to ensure adequate hydration Encourage mobilization and activity Problem: Genitourinary - Adult Goal: Absence (more content not included)... Normal [facility] 30 The patient is Moderately Unstable - Medium risk of patient condition declining or worsening The patient's goals for the shift include improve heart status The clinical goals for the shift include VSS Over the shift, the patient did not make progress toward the following goals. Barriers to progression include freq PVCs/aberrant runs . Recommendations to address these barriers include continue medication regimen and monitor rythym. Problem: Cardiovascular - Adult Goal: Maintains optimal cardiac output and hemodynamic stability Outcome: Not Progressing Goal: Absence of cardiac dysrhythmias or at baseline Outcome: Not Progressing Normal [facility] BASIC METABOLIC PANELon 08-0 Anion gap [Moles/Vol] 11 mmol/L Normal 7-20 [facility] Comment on above: Performed By: #### L [id number] #### [facility] ([facility]) [address] [place] [address] Calcium [Mass/Vol] 8.1 mg/dL Low 8.6-10.3 [facility] Comment on above: Performed By: #### L [id number] #### [facility] ([facility]) [address] [place] [address] Chloride [Moles/Vol] 97 mmol/L Low 98-107 [facility] Comment on above: Performed By: #### L [id number] #### [facility] ([facility]) [address] [place] [address] CO2 [Moles/Vol] 22 mmol/L Normal 21-31 [facility] Comment on above: Performed By: #### L [id number] #### [facility] ([facility]) [address] [place] [address] Creatinine [Mass/Vol] 1.02 mg/dL Normal 0.60-1.20 [facility] Comment on above: Performed By: #### L [id number] #### [facility] ([facility]) [address] [place] [address] GLOMERULAR FILTRATION RATE ML/MIN/1.73 SQ M.PREDICTED 59.6 mL/min/1.73m*2 Low >60.0 [facility] Comment on above: Result Comment: [facility]???s estimated glomerular filtration rate (eGFR) will no longer include consideration of race in its calculation. The National Kidney Foundation???s eGFR Task Force developed new recommendations for the estimation of the glomerular filtration rate in the [place] They recommend immediate implementation of the new equation refit without the race variable in all laboratories because the calculation does not include race. In addition to not including race in the calculation and reporting, it included diversity in its development, and has acceptable performance characteristics and potential consequences that do not disproportionately affect any one group of individuals. Performed By: #### L [id number] #### [facility] ([facility]) [address] [place] [address] Glucose [Mass/Vol] 104 mg/dL High 70-100 [facility] Comment on above: Performed By: #### L [id number] #### [facility] ([facility]) [address] [place] [address] Potassium [Moles/Vol] 3.9 mmol/L Normal 3.5-5.1 [facility] Comment on above: Performed By: #### L [id number] #### [facility] ([facility]) [address] [place] [address] Sodium [Moles/Vol] 126 mmol/L Low 136-145 [facility] Comment on above: Performed By: #### L [id number] #### [facility] ([facility]) [address] [place] [address] Urea nitrogen [Mass/Vol] 22 mg/dL Normal 7-25 [facility] Comment on above: Performed By: #### L [id number] #### [facility] ([facility]) [address] [facility] [place] [address] UREA NITROGEN/CREATININE (MASS RATIO) IN SER/PLAS 21.6 Normal [facility] Comment on above: Performed By: #### L [id number] #### [facility] ([facility]) [address] [place] [address] CBCon 10-28-2022 Erythrocyte distribution width (RBC) [Ratio] 13.4 % Normal 11.5-15.0 [facility] Comment on above: Performed By: #### L [id number] ####[facility] ([facility])[address] [place] [address] ERYTHROCYTE MEAN CORPUSCULAR HEMOGLOBIN CONCENTRATION (G/DL) BY AUTOMATED 32.1 g/dL Normal 32.0-35.0 [facility] Comment on above: Performed By: #### L [id number] ####[facility] ([facility])[address] [place] [address] Hematocrit (Bld) [Volume fraction] 22.4 % Low 36.0-48.0 [facility] Comment on above: Performed By: #### L [id number] ####[facility] ([facility])[address] [place] [address] Hemoglobin (Bld) [Mass/Vol] 7.2 g/dL Low 12.0-15.0 [facility] Comment on above: Performed By: #### L [id number] ####[facility] ([facility])[address] [place] [address] MCH (RBC) [Entitic mass] 26.9 pg Low 27.0-33.0 [facility] Comment on above: Performed By: #### L [id number] ####[facility] [place] [address] MCV (RBC) [Entitic vol] 83.6 fL Normal 82.0-98.0 [facility] Comment on above: Performed By: #### L [id number] ####[facility] ([facility] [place] [address] PLATELETS (10*3/UL) IN BLOOD AUTOMATED COUNT 307 10*3/uL Normal 150-400 [facility] Comment on above: Performed By: #### L [id number] ####[facility] ([facility])[address] [place] [address] RBC (Bld) [#/Vol] 2.68 10*6/uL Low 3.80-5.00 [facility] Comment on above: Performed By: #### L [id number] ####[facility] ([facility])[address] [place] [address] WBC (Bld) [#/Vol] 5.58 10*3/uL Normal 4.00-10.60 [facility] Comment on above: Performed By: #### L [id number] ####[facility] ([facility])[address] [place] [address] CONSULTon 10-28-2022 CONSULT --- Attestation signed by Lacie Khalil MD at 10/28/2022 3:59 PM I personally saw and examined the patient on the same date of service as fellow. I discussed the findings and therapeutic plan with the fellow. I agree with the documentation, except for any edits/updates below. Initial Gastroenterology/Hepato logy Consultation Note IDENTIFYING DATA PATIENT: Chiara Juares ADMIT DATE: 10/26/2022 TIME OF EVALUATION: 10/28/2022 1:23 PM Reason for Consult: worsening anemia since starting plavix/asa Admitting Physician: Viv Livingston MD HISTORY OF PRESENT ILLNESS Chiara Juares is a 67 y.o. female with past medical history of COPD, coronary artery disease status post recent PCI in June 2022, recurrent PVCs, chronic anemia, and episode of ventricular tachycardia who presented to the hospital with 1 month of shortness of breath, palpitations, and dyspnea on exertion secondary to symptomatic arrhythmia. GI has been consulted in the setting of iron deficient anemia. Patient reports that over the past month, she has had intermittent palpitations, shortness of breath, and exertional dyspnea. She reports that she has a significant cardiac history and ever since her stent in June 2022, she has had significant symptoms. She reports that she is managed on aspirin and Brilinta and denies any other blood thinner use. From a GI standpoint, she reports that her last colonoscopy was greater than 10 years. She denies any prior EGD. She denies any melena, hematochezia, hematemesis, unintentional weight loss, constitutional symptoms, or any other associated symptoms. She denies any family history of colon cancer. Due to her continued shortness of breath and palpitations, she presented to the emergency room for further evaluation. Since her arrival, she has had multiple episodes of PVCs and trigeminy. She is currently on an amiodarone drip. Labs are notable for severe iron deficient anemia, creatinine of 1.11, hemoglobin is 7.7 from baseline 11.4, BNP of 654, and sodium 125 improved to 129. Cardiology was planning to do a left heart catheterization but in the setting of patient's anemia, requested a GI consult prior to proceeding. GI HISTORY SUMMARY TABLE Last EGD Last colonoscopy Primary GI physician PAST MEDICAL, SURGICAL, FAMILY, and SOCIAL HISTORY Past Medical History: Past Medical History: Diagnosis Date Chronic GERD 12/28/2016 Chronic kidney disease COPD (chronic obstructive pulmonary disease) [facility] Coronary artery disease Coronary artery disease involving [place] coronary artery of [place] heart without angina pectoris 12/28/2016 Essential hypertension 12/14/2016 Hyperlipidemia Lower back pain 12/28/2016 Mixed hyperlipidemia 12/14/2016 Shortness of breath 12/28/2016 Past Surgical History: Past Surgical History: Procedure Laterality Date CARDIAC CATHETERIZATION CHOLECYSTECTOMY CORONARY STENT PLACEMENT HYSTERECTOMY Family History: Family History Problem Relation Name Age of Onset Stroke Mother Kidney disease Father Coronary artery disease Paternal Grandfather Social History: Social History Tobacco Use Smoking status: Former Types: Cigarettes Smokeless tobacco: Never Substance Use Topics Alcohol use: Yes Comment: occaisonal Allergies: Allergies Allergen Reactions Clopidogrel Hydrochlorothiazide Exfoliative Dermatitis Penicillins Vancomycin MEDICATIONS Home Medications: Prior to Admission medications Medication Sig Start Date End Date Taking? Authorizing Provider albuterol 90 mcg/actuation inhaler inhale 1 puff by inhalation route every 4 - 6 hours as needed 11/14/13 10/26/22 Yes Historical Provider, albuterol 2.5 mg /3 mL (0.083 %) nebulizer solution INHALE 1 (ONE) vial via NEBULIZER FOUR TIMES DAILY 06/15/22 Historical Provider, albuterol 90 mcg/actuation inhaler INHALE 2 PUFFS BY MOUTH EVERY 4 HOURS NEEDED for SHORTNESS OF BREATH 01/27/22 Historical Provider, aspirin 81 mg EC tablet Take 1 tablet by mouth in the morning. 12/07/11 Historical Provider, atorvastatin (Lipitor) 80 mg tablet Take 80 mg by mouth in the morning. 07/01/22 Historical Provider, carvedilol (Coreg) 12.5 mg tablet Take 1 tablet (12.5 mg) by mouth with breakfast and with evening meal. 07/08/22 07/08/23 Abby Azevedo MD carvedilol (Coreg) 6.25 mg tablet Take 1 tablet (6.25 mg) by mouth with breakfast and with evening meal. Patient not taking: Reported on 10/26/2022 09/16/22 09/16/23 Abby Azevedo MD cyclobenzaprine (Flexeril) 10 mg tablet Take 10 mg by mouth if needed in the morning, at noon, and at bedtime. 09/22/22 Historical Provider, fluticasone propion-salmeteroL (Advair Diskus) 250-50 mcg/dose diskus inhaler INHALE 1 PUFF BY MOUTH TWICE DAILY; rinse mouth after use 7 (more content not included)... Normal [facility] FERRITINon 10-28-2022 FERRITIN (NG/ML) IN SER/PLAS 13.0 ng/mL Normal 11.0-307.0 [facility] Comment on above: Performed By: #### L [id number] #### [facility] ([facility]) [address] [place] [address] HEMOGLOBIN AND HEMATOCRIT, B LOODon 10-28-2022 Hematocrit (Bld) [Volume fraction] 28.0 % Low 36.0-48.0 [facility] Comment on above: Performed By: #### L [id number] ####[facility] ([facility] [place] [address] Hemoglobin (Bld) [Mass/Vol] 8.9 g/dL Low 12.0-15.0 [facility] Comment on above: Performed By: #### L [id number] ####[facility] ([facility])[address] [place] [address] IRON AND TIBCon 10-28-2022 IRON (UG/DL) IN SER/PLAS <10 Low 50-212 [facility] Comment on above: Performed By: #### L [id number] ####[facility] ([facility])[address] [place] [address] IRON BINDING CAPACITY (UG/DL) IN SER/PLAS <404 Normal 250-450 [facility] Comment on above: Performed By: #### L [id number] ####[facility] ([facility])[address] [place] [address] IRON BINDING CAPACITY.UNSATURATE D (UG/DL) IN SER/PLAS 394.0 ug/dL High 155.0-355.0 [facility] Comment on above: Performed By: #### L [id number] ####[facility] ([facility] [place] [address] IRON SATURATION (%) IN SER/PLAS Normal [facility] Comment on above: Result Comment: Unab le to Calculate Performed By: #### L [id number] ####[facility] ([facility] [place] [address] MAGNESIUMon 10-28-2022 Magnesium [Mass/Vol] 1.8 mg/dL Low 1.9-2.7 [facility] Comment on above: Performed By: #### L [id number] ####[facility] ([facility] [place] [address] 30on 10-27-2022 30 Problem: Respiratory - Adult Goal: Achieves optimal ventilation and oxygenation Outcome: Progressing Problem: Cardiovascular - Adult Goal: Maintains optimal cardiac output and hemodynamic stability Outcome: Progressing Goal: Absence of cardiac dysrhythmias or at baseline Outcome: Not Progressing Problem: Pain - Adult Goal: Verbalizes/displays adequate comfort level or baseline comfort level Outcome: Progressing Problem: Safety - Adult Goal: Free from fall injury Outcome: Progressing Problem: Chronic Conditions and Co-morbidities Goal: Patient's chronic conditions and co-morbidity symptoms are monitored and maintained or improved Outcome: Progressing The patient is Moderately Stable - Low risk of patient condition declining or worsening The patient's goals for the shift include The clinical goals for the shift include vss Over the shift, the patient did not make progress toward the following goals. Barriers to progression include na. Recommendations to address these barriers include na. Normal [facility] BASIC METABOLIC PANELon 08-0 Anion gap [Moles/Vol] 11 mmol/L Normal 7-20 [facility] Comment on above: Performed By: #### L [id number] #### [facility] ([facility]) [address] [place] [address] Calcium [Mass/Vol] 8.8 mg/dL Normal 8.6-10.3 [facility] Comment on above: Performed By: #### L [id number] #### [facility] ([facility]) [address] [place] [address] Chloride [Moles/Vol] 100 mmol/L Normal 98-107 [facility] Comment on above: Performed By: #### L [id number] #### [facility] ([facility] [address] [place] [address] CO2 [Moles/Vol] 22 mmol/L Normal 21-31 [facility] Comment on above: Performed By: #### L [id number] #### [facility] ([facility]ER) [address] [place] [address] Creatinine [Mass/Vol] 0.99 mg/dL Normal 0.60-1.20 [facility] Comment on above: Performed By: #### L [id number] #### [facility] ([facility]) [address] [place] [address] GLOMERULAR FILTRATION RATE ML/MIN/1.73 SQ M.PREDICTED 61.7 mL/min/1.73m*2 Normal >60.0 [facility] Comment on above: Result Comment: [facility]???s estimated glomerular filtration rate (eGFR) will no longer include consideration of race in its calculation. The National Kidney Foundation???s eGFR Task Force developed new recommendations for the estimation of the glomerular filtration rate in the [place] They recommend immediate implementation of the new equation refit without the race variable in all laboratories because the calculation does not include race. In addition to not including race in the calculation and reporting, it included diversity in its development, and has acceptable performance characteristics and potential consequences that do not disproportionately affect any one group of individuals. Performed By: #### L [id number] #### [facility] ([facility]) [address] [place] [address] Glucose [Mass/Vol] 111 mg/dL High 70-100 [facility] Comment on above: Performed By: #### L [id number] #### [facility] ([facility]) [address] [place] [address] Potassium [Moles/Vol] 4.2 mmol/L Normal 3.5-5.1 [facility] Comment on above: Performed By: #### L [id number] #### [facility] ([facility]) [address] [place] [address] Sodium [Moles/Vol] 129 mmol/L Low 136-145 [facility] Comment on above: Performed By: #### L [id number] #### [facility] ([facility]) [address] [place] [address] Performed By: #### L [id number] #### [facility] ([facility]) [address] [place] [address] Urea nitrogen [Mass/Vol] 20 mg/dL Normal 7-25 [facility] Comment on above: Performed By: #### L [id number] #### [facility] ([facility]) [address] [place] [address] UREA NITROGEN/CREATININE (MASS RATIO) IN SER/PLAS 20.2 Normal [facility] Comment on above: Performed By: #### L [id number] #### [facility] ([facility]) [address] [place] [address] CBCon 10-27-2022 Erythrocyte distribution width (RBC) [Ratio] 13.5 % Normal 11.5-15.0 [facility] Comment on above: Performed By: #### L [id number] #### [facility] ([facility]) [address] [place] [address] ERYTHROCYTE MEAN CORPUSCULAR HEMOGLOBIN CONCENTRATION (G/DL) BY AUTOMATED 31.6 g/dL Low 32.0-35.0 [facility] Comment on above: Performed By: #### L [id number] #### [facility] ([facility]) [address] [place] [address] Hematocrit (Bld) [Volume fraction] 25.0 % Low 36.0-48.0 [facility] Comment on above: Performed By: #### L [id number] #### [facility] ([facility]) [address] [place] [address] Hemoglobin (Bld) [Mass/Vol] 7.9 g/dL Low 12.0-15.0 [facility] Comment on above: Performed By: #### L [id number] #### [facility] ([facility]) [address] [place] [address] MCH (RBC) [Entitic mass] 26.6 pg Low 27.0-33.0 [facility] Comment on above: Performed By: #### L [id number] #### [facility] ([facility]) [address] [place] [address] MCV (RBC) [Entitic vol] 84.2 fL Normal 82.0-98.0 [facility] Comment on above: Performed By: #### L [id number] #### [facility] ([facility]) [address] [place] [address] PLATELETS (10*3/UL) IN BLOOD AUTOMATED COUNT 349 10*3/uL Normal 150-400 [facility] Comment on above: Performed By: #### L [id number] #### [facility] ([facility]) [address] [place] [address] RBC (Bld) [#/Vol] 2.97 10*6/uL Low 3.80-5.00 [facility] Comment on above: Performed By: #### L [id number] #### [facility] ([facility]) [address] [place] [address] WBC (Bld) [#/Vol] 6.23 10*3/uL Normal 4.00-10.60 [facility] Comment on above: Performed By: #### L [id number] #### [facility] ([facility]) [address] [place] [address] CONSULTon 10-27-2022 CONSULT --- Attestation signed by Robbie Kaur MD at 11/11/2022 7:30 PM I personally saw and examined the patient on the same date of service as the fellow. I discussed the findings and therapeutic plan with the fellow. Plan of care was discussed with patient, and patient is agreeable with plan. I agree with the documentation, except for any edits/updates below. Teaching Physician's Revisions: none Robbie Kaur MD [place] [facility] Reason For Consult Arrthymias History Of Present Illness Chiara Juares is a 67 y.o. female transferred from OSH for symptomatic wide complex tachycardia. PMHx of CAD prior ND, PTCA/stent (s/p RCA PCI x2, most recently 06/2022, on DAPT), HTN, dyslipidemia, COPD, chronic edema, obesity, migraine GATES's, and longstanding tobacco abuse.(has quit.) frequent PVCs. Patient experienced SOB and dizziness while at cardiac rehab, and presented to [facility] where she was found to have frequent PVCs and urns of VT. She was started on amio gtt, and was transferred to [facility]. EKG on admission showed frequent PVCs. Labs showed Na 125, K 4.2 and Mag 1.6, BNP 654, trop 0.01, creatinine is 1.11, Hemoglobin 7.7 with hemoglobin at outlying facility 8.3. chest x-ray without pleural effusion. Notably, patient is wearing 30 day event monitor, Audigence, with VT reported. She has been complaining of SOB, dizziness and Les edema for some time, and feels that the PCI and stent placement really has not affected her symptoms at all. She remains significantly short of breath with mild exertion. She was evaluated in cardiology clinic f/up and thought that her SOB is probably d/t her severe COPD, possibly Brilinta contributing but was not changed d/t recent stent, with option to switch to Effient 10mg daily given her reported allergy to plavix. She denies chest pain but does have back pain that radiates to her chest. No orthopnea, no paroxysmal external dyspnea, chronic lower extremity edema. Overnight tele showed e/o AIVR. Patient has en event monitor with Past Medical History She has a past medical history of Chronic GERD (12/28/2016), Chronic kidney disease, COPD (chronic obstructive pulmonary disease) ([facility]), Coronary artery disease, Coronary artery disease involving [place] coronary artery of [place] heart without angina pectoris (12/28/2016), Essential hypertension (12/14/2016), Hyperlipidemia, Lower back pain (12/28/2016), Mixed hyperlipidemia (12/14/2016), and Shortness of breath (12/28/2016). Surgical History She has a past surgical history that includes Cardiac catheterization; Coronary stent placement; Cholecystectomy; and Hysterectomy. Family History Family History Problem Relation Name Age of Onset Stroke Mother Kidney disease Father Coronary artery disease Paternal Grandfather Social History She reports that she has quit smoking. Her smoking use included cigarettes. She has never used smokeless tobacco. She reports current alcohol use. No history on file for drug use. Allergies Clopidogrel, Hydrochlorothiazide, Penicillins, and Vancomycin Medications Medications Prior to Admission Medication Sig Dispense Refill Last Dose albuterol 2.5 mg /3 mL (0.083 %) nebulizer solution INHALE 1 (ONE) vial via NEBULIZER FOUR TIMES DAILY albuterol 90 mcg/actuation inhaler INHALE 2 PUFFS BY MOUTH EVERY 4 HOURS NEEDED for SHORTNESS OF BREATH aspirin 81 mg EC tablet Take 1 tablet by mouth in the morning. atorvastatin (Lipitor) 80 mg tablet Take 80 mg by mouth in the morning. carvedilol (Coreg) 12.5 mg tablet Take 1 tablet (12.5 mg) by mouth with breakfast and with evening meal. 180 tablet 3 carvedilol (Coreg) 6.25 mg tablet Take 1 tablet (6.25 mg) by mouth with breakfast and with evening meal. (Patient not taking: Reported on 10/26/2022) 180 tablet 3 Unknown cyclobenzaprine (Flexeril) 10 mg tablet Take 10 mg by mouth if needed in the morning, at noon, and at bedtime. fluticasone propion-salmeteroL (Advair Diskus) 250-50 mcg/dose diskus inhaler INHALE 1 PUFF BY MOUTH TWICE DAILY; rinse mouth after use furosemide (Lasix) 40 mg tablet Take 20 mg by mouth in the morning. ipratropium (Atrovent) 0.02 % nebulizer solution INHALE 1 (ONE) vial via NEBULIZER FOUR TIMES DAILY isosorbide mononitrate ER (Imdur) 30 mg 24 hr tablet Take 1 tablet (30 mg) by mouth in the morning. Do not crush or chew. 90 tablet 3 olmesartan (BENIcar) 40 mg tablet Take 40 mg by mouth in the morning. omeprazole (PriLOSEC) [address] capsule take 1 capsule by oral route every day before a meal Spiriva Respimat 2.5 mcg/actuation inhaler INHALE 2 PUFFS BY MOUTH EVERY DAY ticagrelor (Brilinta) 90 mg tablet Take 1 tablet (90 mg) by mouth in the morning and at bedtime. 180 tablet 3 [facility] Medications Medication Dose Route Freque (more content not included)... Normal [facility] CREATININE, URINE, RANDOMon 10-27-2022 Creatinine (U) [Mass/Vol] 23.0 mg/dL Low 26-299 [facility] Comment on above: Performed By: #### L [id number] ####[facility] ([facility])[address] [place] [address] HEMOGLOBINon 10-27-2022 Hemoglobin (Bld) [Mass/Vol] 7.4 g/dL Low 12.0-15.0 [facility] Comment on above: Performed By: #### L [id number] #### [facility] ([facility]) [address] [place] [address] Hemoglobin (Bld) [Mass/Vol] 7.6 g/dL Low 12.0-15.0 [facility] Comment on above: Performed By: #### L [id number] #### [facility] ([facility]) [address] [place] [address] MAGNESIUMon 10-27-2022 Magnesium [Mass/Vol] 1.8 mg/dL Low 1.9-2.7 [facility] Comment on above: Performed By: #### L [id number] #### [facility] ([facility]) [address] [place] [address] OSMOLALITY, URINEon 10-28-19 23 OSMOLALITY URINE 189 mOsm/kg Normal 50-1400 [facility] Comment on above: Performed By: #### L [id number] ####[facility] ([facility])[address] [place] [address] SODIUMon 10-27-2022 Sodium [Moles/Vol] 128 mmol/L Low 136-145 [facility] Comment on above: Performed By: #### L [id number] #### [facility] ([facility]) [address] [place] [address] Sodium [Moles/Vol] 130 mmol/L Low 136-145 [facility] Comment on above: Performed By: #### L [id number] #### [facility] ([facility]) [address] [place] [address] SODIUM, URINE, RANDOMon 08- Sodium (U) [Moles/Vol] 41 mmol/L Normal [facility] Comment on above: Performed By: #### L [id number] #### [facility] ([facility]) [address] [place] [address] TSH3 REFLEX TO FT4on 023 THYROTROPIN (MIU/L) IN SER/PLAS BY DETECTION LIMIT <= 0.05 MIU/L 1.56 mIU/L Normal 0.34-5.60 [facility] Comment on above: Performed By: #### L [id number] #### [facility] ([facility]) [address] [place] [address] TYPE AND SCREENon 10-27-2022 AB SCREEN Negative Normal [facility] Comment on above: Performed By: #### L [id number] ####[facility] BLOOD BANK, ABO group Nom (Bld) A Normal [facility] Comment on above: Performed By: #### L [id number] ####[facility] BLOOD B[facility], RH TYPE IN BLOOD Positive Normal [facility] Comment on above: Performed By: #### L [id number] ####[facility] BLOOD B[facility], 30on 10-26-2022 30 The patient is Moderately Unstable - Medium risk of patient condition declining or worsening The patient's goals for the shift include The clinical goals for the shift include vss Problem: Cardiovascular - Adult Goal: Maintains optimal cardiac output and hemodynamic stability Outcome: Not Progressing Goal: Absence of cardiac dysrhythmias or at baseline Outcome: Not Progressing Normal [facility] B-TYPE NATRIURETIC PEPTIDEon 10-26-2022 Natriuretic peptide B (Bld) [Mass/Vol] 654 pg/mL High 0-100 [facility] Comment on above: Performed By: #### L [id number] #### [facility] ([facility]) [address] [place] [address] CBC WITH AUTO DIFFERENTIALon 10-26-2022 Basophils (Bld) [#/Vol] 0.06 10*3/uL Normal 0.00-0.20 [facility] Comment on above: Performed By: #### L [id number] #### [facility] ([facility]) [address] [place] [address] Basophils/100 WBC (Bld) 0.7 % Normal 0.0-1.0 [facility] Comment on above: Performed By: #### L [id number] #### [facility] ([facility]) [address] [place] [address] Eosinophils (Bld) [#/Vol] 0.17 10*3/uL Normal 0.00-0.50 [facility] Comment on above: Performed By: #### L [id number] #### [facility] ([facility]) [address] [place] [address] Eosinophils/100 WBC (Bld) 2.1 % Normal 0.0-6.0 [facility] Comment on above: Performed By: #### L [id number] #### [facility] ([facility]) [address] [place] [address] Erythrocyte distribution width (RBC) [Ratio] 13.4 % Normal 11.5-15.0 [facility] Comment on above: Performed By: #### L [id number] #### [facility] ([facility]) [address] [place] [address] ERYTHROCYTE MEAN CORPUSCULAR HEMOGLOBIN CONCENTRATION (G/DL) BY AUTOMATED 31.8 g/dL Low 32.0-35.0 [facility] Comment on above: Performed By: #### L [id number] #### [facility] ([facility]) [address] [place] [address] Hematocrit (Bld) [Volume fraction] 24.2 % Low 36.0-48.0 [facility] Comment on above: Performed By: #### L [id number] #### [facility] ([facility]) [address] [place] [address] Hemoglobin (Bld) [Mass/Vol] 7.7 g/dL Low 12.0-15.0 [facility] Comment on above: Performed By: #### L [id number] #### [facility] ([facility]) [address] [place] [address] Immature granulocytes (Bld) [#/Vol] 0.03 10*3/uL Normal 0.00-0.20 [facility] Comment on above: Performed By: #### L [id number] #### [facility] ([facility]) [address] [place] [address] Immature granulocytes/100 WBC (Bld) 0.4 % Normal 0.0-1.0 [facility] Comment on above: Performed By: #### L [id number] #### [facility] ([facility]) [address] [place] [address] Lymphocytes (Bld) [#/Vol] 1.29 10*3/uL Normal 1.20-4.00 [facility] Comment on above: Performed By: #### L [id number] #### [facility] ([facility]) [address] [place] [address] Lymphocytes/100 WBC (Bld) 16.0 % Low 20.0-45.0 [facility] Comment on above: Performed By: #### L [id number] #### [facility] ([facility]) [address] [place] [address] MCH (RBC) [Entitic mass] 27.0 pg Normal 27.0-33.0 [facility] Comment on above: Performed By: #### L [id number] #### [facility] ([facility]) [address] [place] [address] MCV (RBC) [Entitic vol] 84.9 fL Normal 82.0-98.0 [facility] Comment on above: Performed By: #### L [id number] #### [facility] ([facility]) [address] [place] [address] Monocytes (Bld) [#/Vol] 0.80 10*3/uL Normal 0.10-1.00 [facility] Comment on above: Performed By: #### L [id number] #### [facility] ([facility]) [address] [place] [address] Monocytes/100 WBC (Bld) 9.9 % Normal 5.0-12.0 [facility] Comment on above: Performed By: #### L [id number] #### [facility] ([facility]) [address] [place] [address] Neutrophils (Bld) [#/Vol] 5.72 10*3/uL Normal 1.60-7.60 [facility] Comment on above: Performed By: #### L [id number] #### [facility] ([facility]) [address] [place] [address] Neutrophils/100 WBC (Bld) 70.9 % Normal 40.0-72.0 [facility] Comment on above: Performed By: #### L [id number] #### [facility] ([facility]) [address] [place] [address] NRBC (PER 100 WBCS) BY AUTOMATED COUNT 0.0 % Normal 0 [facility] Comment on above: Performed By: #### L [id number] #### [facility] ([facility]) [address] [place] [address] PLATELETS (10*3/UL) IN BLOOD AUTOMATED COUNT 338 10*3/uL Normal 150-400 [facility] Comment on above: Performed By: #### L [id number] #### [facility] ([facility]) [address] [place] [address] RBC (Bld) [#/Vol] 2.85 10*6/uL Low 3.80-5.00 [facility] Comment on above: Performed By: #### L [id number] #### [facility] [address] [place] [address] WBC (Bld) [#/Vol] 8.07 10*3/uL Normal 4.00-10.60 [facility] Comment on above: Performed By: #### L [id number] #### [facility] ([facility]) [address] [place] [address] COMPREHENSIVE METABOLIC PANE Adam 10-26-2022 Albumin [Mass/Vol] 3.8 g/dL Normal 3.5-5.7 [facility] Comment on above: Performed By: #### L [id number] ####[facility] ([facility])[address] [place] [address] ALP [Catalytic activity/Vol] 113 U/L High 34-104 [facility] Comment on above: Performed By: #### L [id number] ####[facility] ([facility])[address] [place] [address] ALT [Catalytic activity/Vol] 11 U/L Normal 7-52 [facility] Comment on above: Performed By: #### L [id number] ####[facility] ([facility])[address] [place] [address] Anion gap [Moles/Vol] 11 mmol/L Normal 7-20 [facility] Comment on above: Performed By: #### L [id number] ####[facility] ([facility])[address] [place] [address] AST [Catalytic activity/Vol] 17 U/L Normal 13-39 [facility] Comment on above: Performed By: #### L [id number] ####[facility] ([facility])[address] [place] [address] Bilirubin [Mass/Vol] 0.2 mg/dL Low 0.3-1.0 [facility] Comment on above: Performed By: #### L [id number] ####[facility] ([facility])[address] [place] [address] Calcium [Mass/Vol] 8.5 mg/dL Low 8.6-10.3 [facility] Comment on above: Performed By: #### L [id number] ####[facility] ([facility])[address] [place] [address] Chloride [Moles/Vol] 97 mmol/L Low 98-107 [facility] Comment on above: Performed By: #### L [id number] ####[facility] ([facility] [place] [address] CO2 [Moles/Vol] 21 mmol/L Normal 21-31 [facility] Comment on above: Performed By: #### L [id number] ####[facility] ([facility])[address] [place] [address] Creatinine [Mass/Vol] 1.11 mg/dL Normal 0.60-1.20 [facility] Comment on above: Performed By: #### L [id number] ####[facility] ([facility])[address] [place] [address] GLOMERULAR FILTRATION RATE ML/MIN/1.73 SQ M.PREDICTED 53.8 mL/min/1.73m*2 Low >[address]0 [facility] Comment on above: Result Comment: [facility]???s estimated glomerular filtration rate (eGFR) will no longer include consideration of race in its calculation. The National Kidney Foundation???s eGFR Task Force developed new recommendations for the estimation of the glomerular filtration rate in the [place] They recommend immediate implementation of the new equation refit without the race variable in all laboratories because the calculation does not include race. In addition to not including race in the calculation and reporting, it included diversity in its development, and has acceptable performance characteristics and potential consequences that do not disproportionately affect any one group of individuals. Performed By: #### L [id number] ####[facility] ([facility] [place] [address] Glucose [Mass/Vol] 109 mg/dL High 70-100 [facility] Comment on above: Performed By: #### L [id number] ####[facility] ([facility] [place] [address] Potassium [Moles/Vol] 4.4 mmol/L Normal 3.5-5.1 [facility] Comment on above: Performed By: #### L [id number] ####[facility] ([facility])[address] [place] [address] Protein [Mass/Vol] 6.4 g/dL Normal 6.0-8.3 [facility] Comment on above: Performed By: #### L [id number] ####[facility] ([facility])[address] [place] [address] Sodium [Moles/Vol] 125 mmol/L Low 136-145 [facility] Comment on above: Performed By: #### L [id number] ####[facility] ([facility])[address] [place] [address] Urea nitrogen [Mass/Vol] 24 mg/dL Normal 7-25 [facility] Comment on above: Performed By: #### L [id number] ####[facility] ([facility] [place] [address] UREA NITROGEN/CREATININE (MASS RATIO) IN SER/PLAS 21.6 Normal [facility] Comment on above: Performed By: #### L [id number] ####[facility] ([facility])[address] [place] [address] MAGNESIUMon 10-26-2022 Magnesium [Mass/Vol] 1.6 mg/dL Low 1.9-2.7 [facility] Comment on above: Performed By: #### L [id number] ####[facility] ([facility])[address] [place] [address] OSMOLALITYon 10-26-2022 OSMOLALITY MEASURED 266 mOsm/kg Low 285-305 [facility] Comment on above: Performed By: #### L [id number] #### [facility] ([facility]) [address] [place] [address] RETICULOCYTE PANELon 023 HEMOGLOBIN (PG) IN RETICULOCYTES 24.6 pg Low 28.0-36.0 [facility] Comment on above: Performed By: #### L [id number] ####[facility] ([facility])[address] [place] [address] IMMATURE RETICULOCYTE FRACTION (%) 27.6 % High 2-16 [facility] Comment on above: Performed By: #### L [id number] ####[facility] ([facility])[address] [place] [address] RETICULOCYTES (10*6/UL) IN BLOOD 0.0431 10*6/uL Normal 0.0250-0.1000 [facility] Comment on above: Performed By: #### L [id number] ####[facility] ([facility])[address] [place] [address] Reticulocytes/100 RBC (Bld) 1.54 % Normal 0.50-1.80 [facility] Comment on above: Performed By: #### L [id number] ####[facility] ([facility])[address] [place] [address] TROPONIN Ion 10-26-2022 Troponin I.cardiac [Mass/Vol] 0.01 ng/mL Normal 0.00-0.04 [facility] Comment on above: Performed By: #### L [id number] ####[facility] ([facility])[address] [place] [address] TSH3 REFLEX TO FT4on 023 THYROTROPIN (MIU/L) IN SER/PLAS BY DETECTION LIMIT <= 0.05 MIU/L 1.88 mIU/L Normal 0.34-5.60 [facility] Comment on above: Performed By: #### L [id number] ####[facility] ([facility])[address] [place] [address] URIC ACIDon 10-26-2022 Magnesium [Mass/Vol] 7.6 mg/dL High 2.3-6.6 [facility] Comment on above: Performed By: #### L [id number] #### [facility] ([facility]) [address] [place] [address] 36on 10-16-2022 36 Patient is allergic to Plavix and takes Brilinta s/p recent PCI in June 2022. It's very costly for her. I told her I'd ask you if she could try Effient to see if that would be less expensive for her. Thoughts? Thanks. Per Dr. Azevedo on 10/16/2022 via text - ok to switch patient to Effient 10mg daily as long as she has never had a CVA. I gave patient samples of Brilinta today and asked her to let me know when she has about 1 week left, then I will send RX for Effient. Normal [facility] Telephoneon 10-16-2022 Telephone [phone] Chiara Juares Brown 1955 F Date Provider Department Center 10/16/2022 Kee-ABBY AZEVEDO [facility] Family History Problem Relation Age of Onset Stroke Mother Kidney disease Father Coronary artery disease Paternal Grandfather Family Status - Relation Status Age at Mother Father Paternal Grandfather [facility] 36on 10-15-2022 36 Patient is currently wearing 30 day event monitor. [facility] called with critical ECG of VT. I emailed Chris Potts CNP, Dr. Mustafa, and Dr. Estevez since Dr. Azevedo is on vacation. Chris responded to increased her carvedilol to 25mg bid. I then spoke with Chiara and she said the carvedilol makes her BP drop and she gets dizzy after taking it. Yesterday at 9:38am before carvedilol (but had taken other meds) her BP was 137/90, HR 75. At 11:05am, before carvedilol (but had taken other meds) BP was 100/93, HR 90. At 12:26pm (1 hour after taking carvedilol) BP was 88/62, HR 58. Then Chris recommended cutting olmesartan in half. When I called patient again to make her aware, she said she was currently taking 6.25mg bid of carvedilol. Not the 12.5mg bid. I told her to increase to 12.5mg bid then, and still cut olmesartan in half. Asked her to continue to monitor symptoms and BP's and let us know next week how she feels. She verbalized understanding. Normal [facility] PTH INTACTon 08-04-2022 PTH, Intact 41 pg/mL Normal 15-65 [facility] Comment on above: Performed By: #### P THINT ####[facility] [address] [address]Dr. Osmel Shelton HEMOGRAM AND PLATELon 2022 Hematocrit (Bld) [Volume fraction] 34.6 % Critically low 36.0-48.0 [facility] Comment on above: Performed By: #### H H #### [facility] [address] [place] [address] [address] Osmel Shelton Hemoglobin (Bld) [Mass/Vol] 11.1 g/dL Critically low 12.0-16.0 [facility] Comment on above: Performed By: #### H H #### [facility] [address] [place] [address] Dr. Osmel Shelton MCH (RBC) [Entitic mass] 29.3 pg Normal 26.7-34.0 [facility] Comment on above: Performed By: #### H H #### [facility] [address] [place] [address] Dr. Osmel Shelton MCHC (RBC) [Mass/Vol] 32.1 g/dL Normal 29.9-35.2 [facility] Comment on above: Performed By: #### H H #### [facility] [address] [place] [address] Dr. Osmel Shelton MCV (RBC) [Entitic vol] 91.3 fL Normal 81.0-99.0 [facility] Comment on above: Performed By: #### H H #### [facility] [address] [place] [address] Dr. Osmel Shelton PLT 306 103/ul Normal 150-450 [facility] Comment on above: Performed By: #### H H #### [facility] [address] [place] [address] Dr. Osmel Shelton RBC 3.79 106/ul Critically low 4.20-5.40 [facility] Comment on above: Performed By: #### H H #### [facility] [address] [place] [address] Dr. Osmel Shelton WBC 4.8 103/ul Normal 4.0-11.0 [facility] Comment on above: Performed By: #### H H #### [facility] [address] [address] [address] Osmel Shelton MAGNESIUMon 08-03-2022 Magnesium [Mass/Vol] 1.9 mg/dL Normal 1.8-2.4 [facility] Comment on above: Performed By: #### P HOS, MG, CMP, URIC #### [facility] [address] [address] [address] Osmel Shelton PHOSPHORUSon 08-03-2022 Phosphate [Mass/Vol] 4.4 mg/dL Normal 2.6-4.7 [facility] Comment on above: Performed By: #### P HOS, MG, CMP, URIC #### [facility] [address] [address] [address] Osmel Shelton PROF 14(COMP METB)on 023 Albumin [Mass/Vol] 3.6 g/dL Normal 3.4-5.0 [facility] Comment on above: Performed By: #### P HOS, MG, CMP, URIC ####[facility] [address] [address]DrLissett Shelton Albumin/Globulin [Mass ratio] 0.9 {ratio} Normal [facility] Comment on above: Performed By: #### P HOS, MG, CMP, URIC ####[facility] [address] [address]DrLissett Shelton ALP [Catalytic activity/Vol] 136 U/L Critically high 46-116 [facility] Comment on above: Performed By: #### P HOS, MG, CMP, URIC ####[facility] [address] [id number] Shelton ALT [Catalytic activity/Vol] 29 U/L Normal 14-59 [facility] Comment on above: Performed By: #### P HOS, MG, CMP, URIC ####[facility] [address] [address]DrLissett Shelton Anion gap [Moles/Vol] 13.5 mmol/L Normal [facility] Comment on above: Performed By: #### P HOS, MG, CMP, URIC ####[facility] [address] [address]Dr. Osmel Shelton AST [Catalytic activity/Vol] 27 U/L Normal 15-37 [facility] Comment on above: Performed By: #### P HOS, MG, CMP, URIC ####[facility] Lmogorgk[address] [place], [place] [address]Dr. Osmel Shelton Bilirubin [Mass/Vol] 0.2 mg/dL Normal 0.2-1.0 [facility] Comment on above: Performed By: #### P HOS, MG, CMP, URIC ####[facility] [address] [place], [place] [address]Dr. Osmel Shelton Calcium [Mass/Vol] 9.0 mg/dL Normal 8.5-10.1 [facility] Comment on above: Performed By: #### P HOS, MG, CMP, URIC ####[facility] W[address] [place], [place] [address]Dr. Osmel Shelton Chloride [Moles/Vol] 100 mmol/L Normal 98-107 [facility] Comment on above: Performed By: #### P HOS, MG, CMP, URIC ####[facility] [address] [place], [place] [address]Dr. Osmel Shelton CO2 [Moles/Vol] 25.7 mmol/L Normal 21.0-32.0 [facility] Comment on above: Performed By: #### P HOS, MG, CMP, URIC ####[facility] [address] [place], [place] [address]Dr. Osmel Shelton Creatinine [Mass/Vol] 1.40 mg/dL Critically high 0.55-1.02 [facility] Comment on above: Performed By: #### P HOS, MG, CMP, URIC ####[facility] R[address]rks[address] [place], [place] [address]Dr. Osmel Shelton EGFR-AF NAMIBIAN 45 mL/min/1.73m2 Critically low >=60 [facility] Comment on above: Performed By: #### P HOS, MG, CMP, URIC ####[facility] [address] [address]Dr. Osmel Shelton EGFR-NON AF NAMIBIAN 37 mL/min/1.73m2 Critically low >=60 [facility] Comment on above: Performed By: #### P HOS, MG, CMP, URIC ####[facility] [address] [address]Dr. Osmel Shelton Globulin (S) [Mass/Vol] 4.2 g/dL Normal [facility] Comment on above: Performed By: #### P HOS, MG, CMP, URIC ####[facility] [address] [address]Dr. Osmel Shelton Glucose [Mass/Vol] 101 mg/dL Normal 74-106 [facility] Comment on above: Performed By: #### P HOS, MG, CMP, URIC ####[facility] [address] [address]Dr. Moiramarcia Shelton Potassium [Moles/Vol] 4.2 mmol/L Normal 3.5-5.1 [facility] Comment on above: Performed By: #### P HOS, MG, CMP, URIC ####[facility] [address] [address]Dr. Osmel Shelton Protein [Mass/Vol] 7.8 g/dL Normal 6.4-8.2 The [facility] Comment on above: Performed By: #### P HOS, MG, CMP, URIC ####[facility] [address] [address]Dr. Moiramarcia Shelton Sodium [Moles/Vol] 135 mmol/L Critically low 136-145 [facility] Comment on above: Performed By: #### P HOS, MG, CMP, URIC ####[facility] [address] [address]Dr. Moiramarcia Shelton Urea nitrogen [Mass/Vol] 23.0 mg/dL Critically high 7.0-18.0 [facility] Comment on above: Performed By: #### P HOS, MG, CMP, URIC ####[facility] [address] [address]Dr. Osmel Shelton Urea nitrogen/Creatinine [Mass ratio] 16.4 mg/mg Normal [facility] Comment on above: Performed By: #### P HOS, MG, CMP, URIC ####[facility] [address] [address]Dr. Osmel Shelton UA RANDOMon 08-03-2022 Bilirubin Ql (U) Negative Normal NEGATIVE [facility] Comment on above: Performed By: #### U A #### [facility] [address] [address] [address] Osmel Shelton Clarity (U) CLEAR Normal CLEAR [facility] Comment on above: Performed By: #### U A #### [facility] [address] [place] [address] Dr. Osmel Shelton Color (U) LT. YELLOW Normal YELLOW [facility] Comment on above: Performed By: #### U A #### [facility] [address] [place] [address] Dr. Osmel Shelton Glucose Ql (U) Negative Normal NEGATIVE [facility] Comment on above: Performed By: #### U A #### [facility] [address] [address] [address] Osmel Shelton Hemoglobin Ql (U) Negative Normal NEGATIVE [facility] Comment on above: Performed By: #### U A #### [facility] [address] [place] [address] Dr. Osmel Shelton Ketones Ql (U) Negative Normal NEGATIVE [facility] Comment on above: Performed By: #### U A #### [facility] [address] [place] [address] Dr. Osmel Shelton LEUKOCYTES Negative Normal NEGATIVE [facility] Comment on above: Performed By: #### U A #### [facility] [address] [place] [address] Dr. Osmel Shelton Nitrite Ql (U) Negative Normal NEGATIVE [facility] Comment on above: Performed By: #### U A #### [facility] [address] [address] [address] Osmel Shelton pH (U) 5.5 [pH] Normal 5-9 [facility] Comment on above: Performed By: #### U A #### [facility] [address] [address] [address] Osmel Shelton SPEC GRAVITY <=1.005 Abnormal 1.005-<=1.025 [facility] Comment on above: Performed By: #### U A #### [facility] [address] [address] [address] Osmel Shelton UA PROTEIN Negative Normal NEGATIVE/ TRACE [facility] Comment on above: Performed By: #### U A #### [facility] [address] [address] [address] Osmel Shelton Urobilinogen Qn (U) 0.2 {Chuy'U}/dL Normal 0.2 - 1. 0 [facility] Comment on above: Performed By: #### U A #### [facility] [address] [address] [address] Osmel Shelton URIC ACID SERUMon 08-03-2022 Urate [Mass/Vol] 8.4 mg/dL Critically high 2.6-6.0 [facility] Comment on above: Performed By: #### P HOS, MG, CMP, URIC ####[facility] [address] [address]Dr. Osmel Shelton URINE T PROTEIN CREAT RATIOo n 08-03-2022 Protein (U) [Mass/Vol] 4.6 mg/dL Normal <=12.0 [facility] Comment on above: Performed By: #### U RTPCR #### [facility] [address] [address] [address] Osmel Shelton UR PROT CREAT RAT 0.09 Normal [facility] Comment on above: Performed By: #### U RTPCR #### [facility] [address] [address] [address] Osmel Shelton URINE CREAT 50.21 mg/dL Normal 20.00-300.00 [facility] Comment on above: Performed By: #### U RTPCR #### [facility] [address] [address] [address] Osmel Shelton VITAMIN D 25 OHon 08-03-2022 VIT D 25-OH 20.9 ng/mL Normal [facility] Comment on above: Performed By: #### V ITAD ####[facility] [address] [id number]. Osmel Shelton VIT D RANGES SEE BELOW Normal [facility] Comment on above: Result Comment: <20 ng/mL Vit D deficient 20 - <30 ng/mL Vit D insufficient 30 - 100 ng/mL Vit D sufficient >100 ng/mL Potential Toxicity Performed By: #### V ITAD ####[facility] [address] [id number]. Osmel Shelton CBC AUTO DIFFon 07-09-2022 BASO # 0.0 103/ul Normal 0.0-0.1 [facility] Comment on above: Performed By: #### C BC #### [facility] [address] [address] [address] Osmel Shelton Basophils/100 WBC (Bld) 0.5 % Normal 0.2-2.0 [facility] Comment on above: Performed By: #### C BC #### [facility] [address] [address] [address] Osmel Shelton EO # 0.2 103/ul Normal 0.0-0.7 [facility] Comment on above: Performed By: #### C BC #### [facility] [address] [address] [address] Osmel Shelton Eosinophils/100 WBC (Bld) 2.9 % Normal 0.9-7.0 [facility] Comment on above: Performed By: #### C BC #### [facility] [address] [address] [address] Osmel Shelton Erythrocyte distribution width (RBC) [Ratio] 14.3 % Normal 11.0-15.0 [facility] Comment on above: Performed By: #### C BC #### [facility] [address] [address] [address] Osmel Shelton Hematocrit (Bld) [Volume fraction] 34.4 % Critically low 36.0-48.0 [facility] Comment on above: Performed By: #### C BC #### [facility] [address] [address] [address] Osmel Shelton Hemoglobin (Bld) [Mass/Vol] 11.4 g/dL Critically low 12.0-16.0 [facility] Comment on above: Performed By: #### C BC #### [facility] [address] [address] [address] Osmel Shelton IG # 0.02 10e3/ul Normal 0.00-0.03 [facility] Comment on above: Performed By: #### C BC #### [facility] [address] [place] [address] Dr. Osmel Shelton IG % 0.4 % Normal 0.0-0.5 [facility] Comment on above: Performed By: #### C BC #### [facility] [address] [place] [address] Dr. Osmel Shelton LYMPH # 1.3 103/ul Normal 1.2-3.8 [facility] Comment on above: Performed By: #### C BC #### [facility] [address] [place] [address] Dr. Osmel Shelton Lymphocytes/100 WBC (Bld) 23.0 % Normal 20.5-60.0 [facility] Comment on above: Performed By: #### C BC #### [facility] [address] [place] [address] Dr. Osmel Shelton MANUAL DIFF REQ NO Normal [facility] Comment on above: Performed By: #### C BC #### [facility] [address] [place] [address] Dr. Osmel Shelton MCH (RBC) [Entitic mass] 29.8 pg Normal 26.7-34.0 [facility] Comment on above: Performed By: #### C BC #### [facility] [address] [place] [address] Dr. Osmel Shelton MCHC (RBC) [Mass/Vol] 33.1 g/dL Normal 29.9-35.2 [facility] Comment on above: Performed By: #### C BC #### [facility] [address] [address] [address] Osmel Shelton MCV (RBC) [Entitic vol] 89.8 fL Normal 81.0-99.0 [facility] Comment on above: Performed By: #### C BC #### [facility] [address] [address] [address] Osmel Shelton MONO # 0.6 103/ul Normal 0.3-0.8 [facility] Comment on above: Performed By: #### C BC #### [facility] [address] [address] [address] Osmel Shelton Monocytes/100 WBC (Bld) 11.0 % Normal 1.7-12.0 [facility] Comment on above: Performed By: #### C BC #### [facility] [address] [place] [address] Dr. Osmel Shelton NEUT # 3.4 103/ul Normal 1.4-6.5 [facility] Comment on above: Performed By: #### C BC #### [facility] [address] [place] [address] Dr. Osmel Shelton Neutrophils/100 WBC (Bld) 62.2 % Normal 43.0-75.0 [facility] Comment on above: Performed By: #### C BC #### [facility] [address] [place] [address] Dr. Osmel Shelton Platelet mean volume (Bld) [Entitic vol] 9.4 fL Critically low 9.5-13.5 [facility] Comment on above: Performed By: #### C BC #### [facility] [address] [place] [address] Dr. Osmel Shelton PLT 327 103/ul Normal 150-450 [facility] Comment on above: Performed By: #### C BC #### [facility] [address] [address] [address] Osmel Shelton RBC 3.83 106/ul Critically low 4.20-5.40 [facility] Comment on above: Performed By: #### C BC #### [facility] [address] [address] [address] Osmel Shelton WBC 5.5 103/ul Normal 4.0-11.0 [facility] Comment on above: Performed By: #### C BC #### [facility] [address] [address] [address] Osmel Shelton PROF CHEM 8 (BAS METB)on Anion gap [Moles/Vol] 11.7 mmol/L Normal [facility] Comment on above: Performed By: #### B MP ####[facility] [address] [address]Dr. Osmel Shelton Calcium [Mass/Vol] 8.8 mg/dL Normal 8.5-10.1 [facility] Comment on above: Performed By: #### B MP ####[facility] [address] [address]Dr. Osmel Shelton Chloride [Moles/Vol] 99 mmol/L Normal 98-107 [facility] Comment on above: Performed By: #### B MP ####[facility] [address] [address]Dr. Osmel Shelton CO2 [Moles/Vol] 27.1 mmol/L Normal 21.0-32.0 [facility] Comment on above: Performed By: #### B MP ####[facility] [address] [address]Dr. Osmel Shelton Creatinine [Mass/Vol] 1.38 mg/dL Critically high 0.55-1.02 [facility] Comment on above: Performed By: #### B MP ####[facility] [address] [id number]. Osmel Shelton EGFR-AF NAMIBIAN 46 mL/min/1.73m2 Critically low >=60 [facility] Comment on above: Performed By: #### B MP ####[facility] [address] [id number]. Osmel Shelton EGFR-NON AF NAMIBIAN 38 mL/min/1.73m2 Critically low >=60 [facility] Comment on above: Performed By: #### B MP ####[facility] [address] [id number]. Osmel Shelton Glucose [Mass/Vol] 105 mg/dL Normal 74-106 [facility] Comment on above: Performed By: #### B MP ####[facility] [address] [address]Dr. Osmel Shelton Potassium [Moles/Vol] 4.8 mmol/L Normal 3.5-5.1 [facility] Comment on above: Performed By: #### B MP ####[facility] [address] [address]Dr. Osmel Shelton Sodium [Moles/Vol] 133 mmol/L Critically low 136-145 [facility] Comment on above: Performed By: #### B MP ####[facility] [address] [address]Dr. Osmel Shelton Urea nitrogen [Mass/Vol] 19.0 mg/dL Critically high 7.0-18.0 [facility] Comment on above: Performed By: #### B MP ####[facility] [address] [place], [place] [address]Dr. Omsel Shelton Urea nitrogen/Creatinine [Mass ratio] 13.8 mg/mg Normal [facility] Comment on above: Performed By: #### B MP ####[facility] [address] [place], [place] [address]Dr. Osmel Shelton PULMONARY FUNCTION TESTon PULMONARY FUNCTION TEST PULMONARY FUNCTION TEST NOTE DATE: 05/20/2022 SIX MINUTE WALK STUDY INDICATION: COPD. Six minute walk study was initiated according to standard protocol. Initial saturation was 96% on room air, blood pressure 143/80, heart rate 64, Rianna Score 0.5 and MMRC 1. Patient ambulated for six minutes with oxygen saturation at the lowest at 94% with heart rate 104. Final Rianna Score was 4. At recovery, saturation was 99% on room air with Rianna Score of 3 and a heart rate of 68 with a blood pressure 157/90. She ambulated for 213 meters, which is 84% predicted walk distance. IMPRESSIONS: No ambulatory desaturations, satisfactory walk distance, increased perception of dyspnea at end of walking. RECOMMENDATIONS: No ambulatory O2 indicated. Clinical correlation required. Normal The [facility] US KIDNEYSon 04-15-2022 US KIDNEYS EXAMINATION: US PAULETTE GALLAGHER HISTORY: Chronic kidney disease stage 3a COMPARISON: 02/01/2021 TECHNIQUE: Ultrasound examination was performed of the bladder. FINDINGS: Right Kidney: Normal in size, contour and echotexture. No solid cortical mass, hydronephrosis or obstructing nephrolithiasis. The cortex measures 1 cm. Height: 4.1 cm Length: 9.1 cm Width: 5.1 cm Left Kidney: Normal in size, contour and echotexture. No solid cortical mass, hydronephrosis or obstructing nephrolithiasis. The cortex measures 1.6 cm Height: 5.1 cm Length: 8.6 cm Width: 4.0 cm The urinary bladder is partially distended measuring 1.6 x 6.4 x 7 cm with volume of 50 mL. IMPRESSION: No acute abnormality Electronically authenticated by: TIMOTHY GUIDRY Date: 2022-04-15 16:21 Normal The [facility] CT LUNG CANCER SCREENINGon 1 CT LUNG CANCER SCREENING EXAMINATION: CT LUNG CANCER SCREENING HISTORY: Nicotine dependence COMPARISON: 03/18/2021 TECHNIQUE: Axial, Coronal, and Sagittal images were created without the administration of IV contrast material. Dose reduction techniques were achieved by using automated exposure control and/or adjustment of mA and/or kV according to patient size and/or use of iterative reconstruction technique. FINDINGS: LUNGS: Scattered punctate pulmonary nodules measuring up to 5.4 mm, right middle lobe axial image 100. No new pulmonary nodules or masses. No peripheral intralobular septal thickening. Some mild thickening of the right major fissure. PLEURA: No mass, effusion, or pneumothorax. VASCULATURE: No abnormality. TEODORO: No mass or pathologic adenopathy. MEDIASTINUM: No mass or pathologic adenopathy. CARDIAC: No enlargement or pericardial effusion. Moderate coronary atherosclerosis AORTA: No aortic aneurysm. Mild to moderate atherosclerosis CHEST WALL: No mass or axillary adenopathy BONES: No bone lesion or fracture. LIMITED ABDOMEN: Surgical clips from cholecystectomy OTHER: Negative. IMPRESSION: LUNG SCREENING: Lung-RADS Category 2- Benign Appearance or Behavior. Nodules with a very low likelihood of becoming a clinically active cancer due to size or lack of growth. 2. Continue annual screening with LDCT in 12 months. Electronically authenticated by: TIMOTHY GUIDRY Date: 2022-01-19 14:40 Normal [facility] CBC AUTO DIFFon 01-05-2022 BASO # 0.1 103/ul Normal 0.0-0.1 [facility] Comment on above: Performed By: #### C BC #### [facility] [address] [place] [address] Dr. Osmel Shelton Basophils/100 WBC (Bld) 1.0 % Normal 0.2-2.0 [facility] Comment on above: Performed By: #### C BC #### [facility] [address] [place] [address] Dr. Osmel Shelton EO # 0.2 103/ul Normal 0.0-0.7 [facility] Comment on above: Performed By: #### C BC #### [facility] [address] [place] [address] Dr. Osmel Shelton Eosinophils/100 WBC (Bld) 3.6 % Normal 0.9-7.0 [facility] Comment on above: Performed By: #### C BC #### [facility] [address] [place] [address] Dr. Osmel Shelton Erythrocyte distribution width (RBC) [Ratio] 14.1 % Normal 11.0-15.0 [facility] Comment on above: Performed By: #### C BC #### [facility] [address] [place] [address] Dr. Osmel Shelton Hematocrit (Bld) [Volume fraction] 36.5 % Normal 36.0-48.0 [facility] Comment on above: Performed By: #### C BC #### [facility] [address] [place] [address] Dr. Osmel Shelton Hemoglobin (Bld) [Mass/Vol] 11.8 g/dL Critically low 12.0-16.0 [facility] Comment on above: Performed By: #### C BC #### [facility] [address] [place] [address] Dr. Osmel Shelton IG # 0.02 10e3/ul Normal 0.00-0.03 [facility] Comment on above: Performed By: #### C BC #### [facility] [address] [place] [address] Dr. Osmel Shelton IG % 0.3 % Normal 0.0-0.5 [facility] Comment on above: Performed By: #### C BC #### [facility] [address] [place] [address] Dr. Osmel Shelton LYMPH # 1.3 103/ul Normal 1.2-3.8 [facility] Comment on above: Performed By: #### C BC #### [facility] [address] [place] [address] Dr. Osmel Shelton Lymphocytes/100 WBC (Bld) 21.4 % Normal 20.5-60.0 [facility] Comment on above: Performed By: #### C BC #### [facility] [address] [place] [address] Dr. Osmel Shelton MANUAL DIFF REQ NO Normal [facility] Comment on above: Performed By: #### C BC #### [facility] [address] [place] [address] Dr. Osmel Shelton MCH (RBC) [Entitic mass] 29.3 pg Normal 26.7-34.0 [facility] Comment on above: Performed By: #### C BC #### [facility] [address] [place] [address] Dr. Osmel Shelton MCHC (RBC) [Mass/Vol] 32.3 g/dL Normal 29.9-35.2 [facility] Comment on above: Performed By: #### C BC #### [facility] [address] [place] [address] Dr. Osmel Shelton MCV (RBC) [Entitic vol] 90.6 fL Normal 81.0-99.0 [facility] Comment on above: Performed By: #### C BC #### [facility] [address] [place] [address] Dr. Osmel Shelton MONO # 0.7 103/ul Normal 0.3-0.8 [facility] Comment on above: Performed By: #### C BC #### [facility] [address] [address] [address] Osmel Shelton Monocytes/100 WBC (Bld) 11.2 % Normal 1.7-12.0 [facility] Comment on above: Performed By: #### C BC #### [facility] [address] [address] [address] Osmel Shelton NEUT # 3.7 103/ul Normal 1.4-6.5 [facility] Comment on above: Performed By: #### C BC #### [facility] [address] [address] [address] Osmel Shelton Neutrophils/100 WBC (Bld) 62.5 % Normal 43.0-75.0 [facility] Comment on above: Performed By: #### C BC #### [facility] [address] [address] [address] Osmel Shelton Platelet mean volume (Bld) [Entitic vol] 9.4 fL Critically low 9.5-13.5 [facility] Comment on above: Performed By: #### C BC #### [facility] [address] [address] [address] Osmel Shelton PLT 364 103/ul Normal 150-450 [facility] Comment on above: Performed By: #### C BC #### [facility] [address] [address] [address] Osmel Shelton RBC 4.03 106/ul Critically low 4.20-5.40 [facility] Comment on above: Performed By: #### C BC #### [facility] [address] [address] [address] Osmel Shelton WBC 5.9 103/ul Normal 4.0-11.0 [facility] Comment on above: Performed By: #### C BC #### [facility] [address] [place], [place] [id number] Dr. Osmel Shelton LIPID PROFILEon 01-05-2022 CHOL-HDL RATIO NORM SEE BELOW Normal [facility] Comment on above: Result Comment: 3.3 - 4.4 LOW RISK 4.4 - 7.1 AVERAGE RISK 7.1 - 11.0 MODERATE RISK >11.0 HIGH RISK Performed By: #### C MP, LIPID #### [facility] [address] [address] [address] Osmel Shelton Cholesterol [Mass/Vol] 149 mg/dL Normal <=200 [facility] Comment on above: Performed By: #### C MP, LIPID #### [facility] [address] [address] [address] Osmel Shelton Cholesterol in HDL [Mass/Vol] 75 mg/dL Critically high 40-60 [facility] Comment on above: Performed By: #### C MP, LIPID #### [facility] [address] [address] [address] Osmel Shelton Cholesterol in LDL [Mass/Vol] 60.4 mg/dL Normal [facility] Comment on above: Performed By: #### C MP, LIPID #### [facility] [address] [address] [address] Osmel Shelton Cholesterol.total/C holesterol in HDL [Mass ratio] 2.0 {ratio} Normal [facility] Comment on above: Performed By: #### C MP, LIPID #### [facility] [address] [address] [address] Osmel Shelton HDL NORMAL > or = 60 mg/dl - LO W CARDIOVASCULAR RISK <40 mg/dl - HIGH CARDIOVASCULAR RISK Normal [facility] Comment on above: Performed By: #### C MP, LIPID #### [facility] [address] [address] [address] Osmel Shelton LDL CALC NORMAL SEE BELOW Normal [facility] Comment on above: Result Comment: <100 mg/dl OPTIMAL 100 - 129 mg/dl NEAR OR ABOVE OPTIMAL 130 - 159 mg/dl BORDERLINE HIGH 160 - 189 mg/dl HIGH >190 mg/dl VERY HIGH Performed By: #### C MP, LIPID #### [facility] [address] [address] [address] Osmel Shelton Triglyceride [Mass/Vol] 68 mg/dL Normal <=150 [facility] Comment on above: Performed By: #### C MP, LIPID #### [facility] [address] [address] [address] Osmel Shelton VLDL CALC 13.6 mg/dL Normal [facility] Comment on above: Performed By: #### C MP, LIPID #### [facility] [address] [address] [address] Osmel Shelton PROF 14(COMP METB)on 022 Albumin [Mass/Vol] 3.6 g/dL Normal 3.4-5.0 [facility] Comment on above: Performed By: #### C MP, LIPID #### [facility] [address] [place] [address] Dr. Osmel Shelton Albumin/Globulin [Mass ratio] 0.9 {ratio} Normal [facility] Comment on above: Performed By: #### C MP, LIPID #### [facility] [address] [place] [address] Dr. Osmel Shelton ALP [Catalytic activity/Vol] 152 U/L Critically high 46-116 [facility] Comment on above: Performed By: #### C MP, LIPID #### [facility] [address] [place] [address] Dr. Osmel Shelton ALT [Catalytic activity/Vol] 29 U/L Normal 14-59 [facility] Comment on above: Performed By: #### C MP, LIPID #### [facility] [address] [place] [address] Dr. Osmel Shelton Anion gap [Moles/Vol] 11.1 mmol/L Normal [facility] Comment on above: Performed By: #### C MP, LIPID #### [facility] [address] [place] [address] Dr. Osmel Shelton AST [Catalytic activity/Vol] 23 U/L Normal 15-37 [facility] Comment on above: Performed By: #### C MP, LIPID #### [facility] [address] [place] [address] Dr. Osmel Shelton Bilirubin [Mass/Vol] 0.3 mg/dL Normal 0.2-1.0 [facility] Comment on above: Performed By: #### C MP, LIPID #### [facility] [address] [place] [address] Dr. Osmle Shelton Calcium [Mass/Vol] 8.9 mg/dL Normal 8.5-10.1 The [facility] Comment on above: Performed By: #### C MP, LIPID #### [facility] [address] [address] [address] Osmel Shelton Chloride [Moles/Vol] 96 mmol/L Critically low 98-107 [facility] Comment on above: Performed By: #### C MP, LIPID #### [facility] [address] [address] [address] Osmel Shelton CO2 [Moles/Vol] 28.2 mmol/L Normal 21.0-32.0 [facility] Comment on above: Performed By: #### C MP, LIPID #### [facility] [address] [place] [address] Dr. Osmel Shelton Creatinine [Mass/Vol] 1.46 mg/dL Critically high 0.55-1.02 [facility] Comment on above: Performed By: #### C MP, LIPID #### [facility] [address] [place] [address] Dr. Osmel Shelton EGFR-AF NAMIBIAN 43 mL/min/1.73m2 Critically low >=60 [facility] Comment on above: Performed By: #### C MP, LIPID #### [facility] [address] [place] [address] Dr. Osmel Shelton EGFR-NON AF NAMIBIAN 36 mL/min/1.73m2 Critically low >=60 [facility] Comment on above: Performed By: #### C MP, LIPID #### [facility] [address] [place] [address] Dr. Osmel Shelton Globulin (S) [Mass/Vol] 4.2 g/dL Normal [facility] Comment on above: Performed By: #### C MP, LIPID #### [facility] [address] [place] [address] Dr. Osmel Shelton Glucose [Mass/Vol] 95 mg/dL Normal 74-106 The [facility] Comment on above: Performed By: #### C MP, LIPID #### [facility] [address] [address] [address] Osmel Shelton Potassium [Moles/Vol] 5.3 mmol/L Critically high 3.5-5.1 [facility] Comment on above: Performed By: #### C MP, LIPID #### [facility] [address] [address] [address] Osmel Shelton Protein [Mass/Vol] 7.8 g/dL Normal 6.4-8.2 [facility] Comment on above: Performed By: #### C MP, LIPID #### [facility] [address] [address] [address] Osmel Shelton Sodium [Moles/Vol] 130 mmol/L Critically low 136-145 [facility] Comment on above: Performed By: #### C MP, LIPID #### [facility] [address] [place] [address] Dr. Osmel Shelton Urea nitrogen [Mass/Vol] 22.0 mg/dL Critically high 7.0-18.0 [facility] Comment on above: Performed By: #### C MP, LIPID #### [facility] [address] [address] [address] Osmel Shelton Urea nitrogen/Creatinine [Mass ratio] 15.1 mg/mg Normal [facility] Comment on above: Performed By: #### C MP, LIPID #### [facility] [address] [place] [address] Dr. Osmel Shelton Vital Signs Date Time Vital Sign Value Performing Clinician Facility 03-09-2023 11:20-0500 Body height 154.94 cm Jackelyn Guillory Other [facility] Other 03-09-2023 11:20-0500 Body mass index (BMI) [Ratio] 38.62 kg/m2 Jackelyn Sweet [facility] Other [facility] Other 03-09-2023 11:20-0500 Body temperature 96.7 [degF] Jackelyn Guillory Other [facility] Other 03-09-2023 11:20-0500 Body weight 92.72 kg Azsasha Bakhumbertos Other [facility] Other 03-09-2023 11:20-0500 Diastolic blood pressure 60 mm[Hg] Aziz Bakhous Other [facility] Other 03-09-2023 11:20-0500 Respiratory rate 18 /min Azsasha Bakhous Other [facility] Other 03-09-2023 11:20-0500 SaO2% (BldA) [Mass fraction] 97 % Aziz Bakhous Other [facility] Other 03-09-2023 11:20-0500 Systolic blood pressure 100 mm[Hg] Aziz Bakhous Other [facility] Other 04-07-2022 15:20-0500 Body height 154.94 cm Azsasha Bakhous Other [facility] Other 04-07-2022 15:20-0500 Body mass index (BMI) [Ratio] 39.67 kg/m2 Azsasha Bakhous Other [facility] Other 04-07-2022 15:20-0500 Body temperature 97.7 [degF] Aziz Bakhous Other [facility] Other 04-07-2022 15:20-0500 Body weight 95.26 kg Aziz Bakhous Other [facility] Other 04-07-2022 15:20-0500 Diastolic blood pressure 90 mm[Hg] Aziz Bakhous Other [facility] Other 04-07-2022 15:20-0500 Respiratory rate 18 /min Sebastiansasha Caterina Other [facility] Other 04-07-2022 15:20-0500 SaO2% (BldA) [Mass fraction] 97 % Jackelyn Brandionne Other [facility] Other 04-07-2022 15:20-0500 Systolic blood pressure 140 mm[Hg] Jackelyn Guillory Other [facility] Other Encounters Encounter Date Encounter Type Care Provider Facility Start: 10-12-2023 End: 10-12-2023 ambulatory [facility] Start: 06-29-2023 End: 06-29-2023 ambulatory [facility] Start: 04-12-2023 End: 04-12-2023 ambulatory SHAIKH RIC Not Available Start: 03-09-2023 End: 03-09-2023 ambulatory Jackelyn Guillory Other [facility] Other Start: 03-09-2023 Office outpatient vi sit 25 minutes Jackelyn Guillory [facility] Start: 03-02-2023 End: 03-02-2023 ambulatory [facility] Start: 12-28-2022 End: [facility]28[facility]20[facility]: 11-17-2022 End: 11-17-2022 ambulatory MICHAEL KRAUSE [facility] Start: 10-29-2022 Evaluation and manag ement of inpatient [facility] Start: 10-29-2022 Evaluation and manag ement of inpatient [facility] Start: 10-27-2022 [facility]: 10-26-2022 Evaluation and manag ement of inpatient RODY HDEZ [facility] Start: 10-26-2022 End: 10-31-2022 Evaluation and management of inpatient ALIREZA MCALLISTER [facility] Start: 08-03-2022 End: 08-04-2022 ambulatory JACKELYN GUILLORY Facility:[facility] Start: 07-15-2022 Encounter for other preprocedural examination DR ABBY AZEVEDO [facility] Start: 07-09-2022 End: 07-10-[address] ABBY AZEVEDO Facility:[facility] Start: 07-09-2022 End: 07-10-2022 Encounter for other preprocedural examination DR ABBY AZEVEDO Facility:[facility] Start: 07-09-2022 ambulatory LUIS SAMSA . Facility :[facility] Start: 05-20-2022 End: 05-21-2022 ambulatory LUIS SAMSA . Facility:[facility] Start: 04-27-2022 End: 07-08-2022 ambulatory LUIS SAMSA . Facility:[facility] Start: 04-15-2022 End: 04-16-2022 ambulatory JACKELYN GUILLORY Facility:[facility] Start: 04-07-2022 End: 04-07-2022 ambulatory Jackelyn Guillory Other [facility] Other Start: 04-07-2022 Office outpatient ne w 30 minutes Jackelyn Guillory [facility] Start: 01-23-2022 End: 01-24-2022 ambulatory LUIS SAMSA . Facility:[facility] Start: 01-19-2022 End: 01-20-2022 ambulatory LUIS SAMSA . Facility:[facility] Start: 01-05-2022 End: 01-06-[address] ANNA CRAFT Facility:[facility] Payers Date Payer Category Payer Medicare [id number] 2. [id number] 1961 Self-pay 1955 Unknown [id number] 2.16.84 [id number] 1955 Unknown [id number] 2.16.84 [id number] 1953 Unknown [id number] 2.16.84 [id number] 1953 Unknown [id number] 2.16.84 [id number] 1953 Unknown [id number] 2.16.84 [id number] 1953 Unknown [id number] 2.16.84 [id number] 1953 Unknown [id number] 2.16.84 [id number] 1953 Unknown [id number] 2.16.84 [id number] 1955 Unknown [id number] 2.16.84 [id number] Unknown [id number] 2.16.84 [id number] Unknown [id number] Social History Date Type Detail Facility Unknown if ever smoked [facility] Other Sex Assigned At Sex Assigned At Bir th [facility] Other Clinical Notes 04-07-2022 to 10-12-2023 Note Date & Type Note Facility 10-12-2023 Note [facility] Consult Note Reason for visit: PVC induced NSVT, on amiodarone 10/12/23 Patient was still on amiodarone. her pulse check today reveals normal sinus rhythm without much PVCs. Dr. Coughlin's note on 07/17/2023 makes mention of she being on amiodarone. she notes that being on the blood thinner enables her to be bruises very easily. she is currently on prasugrel and aspirin. 06/29/23 patient had a repeat Holter monitor placed for 48 hours on 06/07/2023 after amiodarone was stopped and this showed PVC burden of less than 1% there were no episodes of VT or A-fib seen but symptoms seems to correlate with episodes of PVCs. no history of any syncope. no significant drop in blood pressure according to the patient. she is open to starting amiodarone in order to feel better Prior HPI: Chiara Juares is a 68 y.o. year old with past medical history of CAD with stable recent cath 10/30/22 and hx of x2 stents to RCA in 2001 and 06/2022, hypertension, anemia, dyslipidemia, COPD, chronic anemia, obesity, migraine headaches, longstanding tobacco use history but has quit, frequent PVCs. She is currently on dual antiplatelet therapy with aspirin and effient. She was recently seen at [facility] as a transfer from [facility] for complaints of symptomatic wide-complex tachycardia with concerns of VT given she was having frequent PVCs. She was started on amiodarone and her Coreg was switched to Toprol. She had cardiac cath which showed stable disease and so EP was consulted regarding PVCs and NSVT. She was recommended to continue amiodarone with consideration for mexiletine if needed. Since discharge she has been feeling well with infrequent complaints of palpitations. She denies chest pain, shortness of breath. She has had some dyspnea going on which has been chronic for her but has not worsened compared to previous. She did have an episode of dizziness with shortness of breath and lower extremity weakness, which may have been due to her having suspected low BP but has not occurred since. Due to those symptoms we discussed doing a 30-day event monitor to see if she is having breakthrough PVCs/NSVT on amiodarone. She had previously worn a 30-day event monitor which demonstarted evidence of NSVT and PVCs. She was also on cardiac rehab on 10/26/2022 which showed PVC induced short run of NSVT Event monitor 09/2022 Critical events 10/25/2022 PVCs with NSVT ECG 10/27/2022 sinus rhythm with PVCs 07/14/22 sinus rhythm with frequent PVC PMH: Past Medical History: Diagnosis Date Chronic GERD 12/28/2016 Chronic kidney disease COPD (chronic obstructive pulmonary disease) (CMS/HCC) Coronary artery disease Coronary artery disease involving [place] coronary artery of [place] heart without angina pectoris 12/28/2016 Essential hypertension 12/14/2016 Hyperlipidemia Lower back pain 12/28/2016 Mixed hyperlipidemia 12/14/2016 Shortness of breath 12/28/2016 PSH: Past Surgical History: Procedure Laterality Date CARDIAC CATHETERIZATION CHOLECYSTECTOMY CORONARY STENT PLACEMENT HYSTERECTOMY SH: Social Determinants of Health Tobacco Use: Medium Risk (06/29/2023) Patient History Smoking Tobacco Use: Former Smokeless Tobacco Use: Never Passive Exposure: Not on file Alcohol Use: Not on file Financial Resource Strain: Low Risk (10/26/2022) Overall Financial Resource Strain (CARDIA) Difficulty of Paying Living Expenses: Not very hard Food Insecurity: Food Insecurity Present (10/26/2022) Hunger Vital Sign Worried About Running Out of Food in the Last Year: Sometimes true Ran Out of Food in the Last Year: Not on file Transportation Needs: No Transportation Needs (10/26/2022) Transportation Lack of Transportation (Medical): No Lack of Transportation (Non-Medical): Not on file Physical Activity: Not on file Stress: Not on file Social Connections: Not on file Intimate Partner Violence: Not At Risk (10/26/2022) [facility] Fear of Current or Ex-Partner: No Emotionally Abused: Not on file Physically Abused: Not on file Sexually Abused: Not on file Physically or Sexually Abused: Not on file Depression: Not on file Housing Stability: Low Risk (10/26/2022) Housing Stability Vital Sign Unable to Pay for Housing in the Last Year: Not on file Number of Places Lived in the Last Year: Not on file Unstable Housing in the Last Year: No Utilities: Not on file Allergies: Allergies Allergen Reactions Clopidogrel Hydrochlorothiazide Exfoliative Dermatitis Penicillins Sodium Chloride Sulfa (Sulfonamide Antibiotics) Unknown Vancomycin Weight: 91.2kg Visit Vitals BP (!) 191/83 Pulse 70 Wt 91.2 kg (201 lb) SpO2 96% BMI 35.05 kg/m??? OB Status Postmenopausal Smoking Status Former BSA 2.02 m??? Meds: Current Outpatient Medications on File Prior to Visit Medication Sig Dispense Refill albuterol 2.5 mg /3 mL (0.083 %) nebulizer solution INHA (more content not included)... [facility] 06-29-2023 Note [facility] Consult Note Reason for visit: PVC induced NSVT, on amiodarone 06/29/23 patient had a repeat Holter monitor placed for 48 hours on 06/07/2023 after amiodarone was stopped and this showed PVC burden of less than 1% there were no episodes of VT or A-fib seen but symptoms seems to correlate with episodes of PVCs. no history of any syncope. no significant drop in blood pressure according to the patient. she is open to starting amiodarone in order to feel better Prior HPI: Chiara Juares is a 68 y.o. year old with past medical history of CAD with stable recent cath 10/30/22 and hx of x2 stents to RCA in 2001 and 06/2022, hypertension, anemia, dyslipidemia, COPD, chronic anemia, obesity, migraine headaches, longstanding tobacco use history but has quit, frequent PVCs. She is currently on dual antiplatelet therapy with aspirin and effient. She was recently seen at [facility] as a transfer from [facility] for complaints of symptomatic wide-complex tachycardia with concerns of VT given she was having frequent PVCs. She was started on amiodarone and her Coreg was switched to Toprol. She had cardiac cath which showed stable disease and so EP was consulted regarding PVCs and NSVT. She was recommended to continue amiodarone with consideration for mexiletine if needed. Since discharge she has been feeling well with infrequent complaints of palpitations. She denies chest pain, shortness of breath. She has had some dyspnea going on which has been chronic for her but has not worsened compared to previous. She did have an episode of dizziness with shortness of breath and lower extremity weakness, which may have been due to her having suspected low BP but has not occurred since. Due to those symptoms we discussed doing a 30-day event monitor to see if she is having breakthrough PVCs/NSVT on amiodarone. She had previously worn a 30-day event monitor which demonstarted evidence of NSVT and PVCs. She was also on cardiac rehab on 10/26/2022 which showed PVC induced short run of NSVT Event monitor 09/2022 Critical events 10/25/2022 PVCs with NSVT ECG 10/27/2022 sinus rhythm with PVCs 07/14/22 sinus rhythm with frequent PVC PMH: Past Medical History: Diagnosis Date Chronic GERD 12/28/2016 Chronic kidney disease COPD (chronic obstructive pulmonary disease) (CMS/HCC) Coronary artery disease Coronary artery disease involving [place] coronary artery of [place] heart without angina pectoris 12/28/2016 Essential hypertension 12/14/2016 Hyperlipidemia Lower back pain 12/28/2016 Mixed hyperlipidemia 12/14/2016 Shortness of breath 12/28/2016 PSH: Past Surgical History: Procedure Laterality Date CARDIAC CATHETERIZATION CHOLECYSTECTOMY CORONARY STENT PLACEMENT HYSTERECTOMY SH: Social Determinants of Health Tobacco Use: Medium Risk (06/29/2023) Patient History Smoking Tobacco Use: Former Smokeless Tobacco Use: Never Passive Exposure: Not on file Alcohol Use: Not on file Financial Resource Strain: Low Risk (10/26/2022) Overall Financial Resource Strain (CARDIA) Difficulty of Paying Living Expenses: Not very hard Food Insecurity: Food Insecurity Present (10/26/2022) Hunger Vital Sign Worried About Running Out of Food in the Last Year: Sometimes true Ran Out of Food in the Last Year: Not on file Transportation Needs: No Transportation Needs (10/26/2022) Transportation Lack of Transportation (Medical): No Lack of Transportation (Non-Medical): Not on file Physical Activity: Not on file Stress: Not on file Social Connections: Not on file Intimate Partner Violence: Not At Risk (10/26/2022) [place] Safety & Environment Fear of Current or Ex-Partner: No Emotionally Abused: Not on file Physically Abused: Not on file Sexually Abused: Not on file Physically or Sexually Abused: Not on file Depression: Not on file Housing Stability: Low Risk (10/26/2022) Housing Stability Vital Sign Unable to Pay for Housing in the Last Year: Not on file Number of Places Lived in the Last Year: Not on file Unstable Housing in the Last Year: No Utilities: Not on file Allergies: Allergies Allergen Reactions Clopidogrel Hydrochlorothiazide Exfoliative Dermatitis Penicillins Sodium Chloride Sulfa (Sulfonamide Antibiotics) Unknown Vancomycin Weight: 91.6kg Visit Vitals BP 130/74 (BP Location: Left arm, Patient Position: Sitting, BP Cuff Size: Adult) Pulse 76 Resp 13 Ht 1.613 m (5' 3.5 ) Wt 91.6 kg (202 lb) SpO2 96% BMI 35.22 kg/m??? OB Status Postmenopausal Smoking Status Former BSA 2.03 m??? Meds: Current Outpatient Medications on File Prior to Visit Medication Sig Dispense Refill albuterol 2.5 mg /3 mL (0.083 %) nebulizer solution INHALE 1 (ONE) vial via NEBULIZER FOUR TIMES DAILY albuterol 90 mcg/actuation inhaler INHALE 2 PUFFS BY MOUTH EVERY 4 HOURS NEEDED for SHORTNESS OF BREATH aspirin 81 mg EC tablet Take 1 tablet by mouth in t (more content not included)... [facility] 03-09-2023 Evaluation note Encounter Date Diagnosis Assessment Notes Feb, Hypertensive nephropathy (ICD-10 - I12.9) Blood pressure is well controlled. He has a patient to follow low-salt diet and to monitor blood pressure at home Feb, Stage 3b chronic kidney disease (ICD-10 - N18.32) Likely from hypertensive nephropathy and h/o NSAID use and long history of smoking with possible arterionephroscl erosis. UA is benign. No proteinuria no hematuria. Blood pressure and volume status are well controlled.Patie nt already on ARB Patient remains on the same dose of Lasix 60 mg p.o. daily. I asked the patient to avoid NSAIDs completely I will follow-up with the patient in 4-6 months Feb, Hyperkalemia (ICD-10 - E87.5) Potassium level normalized with stopping potassium supplement. 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 Sodium level improved with fluid restriction. I asked the patient to continuefollow fluid restriction of 1500 cc daily. Continue Lasix. Avoid thiazide diuretics. I will recheck sodium level next visit Feb, Hypomagnesemia (ICD-10 - E83.42) Continue magnesium supplement. Magnesium is within normal limit Feb, Hyperuricemia (ICD-10 - E79.0) Uric acid improved . Has the patient to follow low animal diet. No gout attack. I will recheck uric acid next visit Feb, Anemia, unspecified type (ICD-10 - D64.9) Hemoglobin slightly low at 11.5 g deciliter.Iron Sat is 16% .O Fe supplement BID Feb, Vitamin D deficiency (ICD-10 - E55.9) continue VD supplement [facility] Other 12-05-2023 NoteUT Electrophysiology Consult Note Reason for visit: PVC induced NSVT, on amiodarone HPI: Chiara Dasilva Juares is a 67 y.o. year old with past medical history of CAD with stable recent cath 10/30/22 and hx of x2 stents to RCA in 2001 and 06/2022, hypertension, anemia, dyslipidemia, COPD, chronic anemia, obesity, migraine headaches, longstanding tobacco use history but has quit, frequent PVCs. She is currently on dual antiplatelet therapy with aspirin and effient. She was recently seen at [facility] as a transfer from [facility] for complaints of symptomatic wide-complex tachycardia with concerns of VT given she was having frequent PVCs. She was started on amiodarone and her Coreg was switched to Toprol. She had cardiac cath which showed stable disease and so EP was consulted regarding PVCs and NSVT. She was recommended to continue amiodarone with consideration for mexiletine if needed. Since discharge she has been feeling well with infrequent complaints of palpitations. She denies chest pain, shortness of breath. She has had some dyspnea going on which has been chronic for her but has not worsened compared to previous. She did have an episode of dizziness with shortness of breath and lower extremity weakness, which may have been due to her having suspected low BP but has not occurred since. She was seen by Chris ALICEA and recc a 30-day event monitor to see if she is having breakthrough PVCs/NSVT on amiodarone. She had previously worn a 30-day event monitor which demonstarted evidence of NSVT and PVCs. She was also on cardiac rehab on 10/26/2022 which showed PVC induced short run of NSVT Current 30d event monitor showed symptom correlating with PVC and burden <1%. My pulse check had it at 2% or so. She is not limited by these. Event monitor 09/2022 Critical events 10/25/2022 PVCs with NSVT ECG 10/27/2022 sinus rhythm with PVCs 07/14/22 sinus rhythm with frequent PVC PMH: Past Medical History: Diagnosis Date Chronic GERD 12/28/2016 Chronic kidney disease COPD (chronic obstructive pulmonary disease) (CMS/HCC) Coronary artery disease Coronary artery disease involving [place] coronary artery of [place] heart without angina pectoris 12/28/2016 Essential hypertension 12/14/2016 Hyperlipidemia Lower back pain 12/28/2016 Mixed hyperlipidemia 12/14/2016 Shortness of breath 12/28/2016 PSH: Past Surgical History: Procedure Laterality Date CARDIAC CATHETERIZATION CHOLECYSTECTOMY CORONARY STENT PLACEMENT HYSTERECTOMY SH: Social Determinants of Health Tobacco Use: Medium Risk (11/17/2022) Patient History Smoking Tobacco Use: Former Smokeless Tobacco Use: Never Passive Exposure: Not on file Alcohol Use: Not on file Financial Resource Strain: Low Risk (10/26/2022) Overall Financial Resource Strain (CARDIA) Difficulty of Paying Living Expenses: Not very hard Food Insecurity: Food Insecurity Present (10/26/2022) Hunger Vital Sign Worried About Running Out of Food in the Last Year: Sometimes true Ran Out of Food in the Last Year: Not on file Transportation Needs: Unknown (10/26/2022) PRAPARE - Transportation Lack of Transportation (Medical): No Lack of Transportation (Non-Medical): Not on file Physical Activity: Not on file Stress: Not on file Social Connections: Not on file Intimate Partner Violence: Unknown (10/26/2022) Humiliation, Afraid, Rape, and Kick questionnaire Fear of Current or Ex-Partner: No Emotionally Abused: Not on file Physically Abused: Not on file Sexually Abused: Not on file Depression: Not on file Housing Stability: Unknown (10/26/2022) Housing Stability Vital Sign Unable to Pay for Housing in the Last Year: Not on file Number of Places Lived in the Last Year: Not on file Unstable Housing in the Last Year: No Allergies: Allergies Allergen Reactions Clopidogrel Hydrochlorothiazide Exfoliative Dermatitis Penicillins Vancomycin Weight: 91.6kg Visit Vitals BP 175/88 (BP Location: Left arm, Patient Position: Sitting) Pulse 66 Ht 1.613 m (5' 3.5 ) Wt 91.6 kg (202 lb) SpO2 95% BMI 35.22 kg/m??? OB Status Postmenopausal Smoking Status Former BSA 2.03 m??? Meds: Current Outpatient Medications on File Prior to Visit Medication Sig Dispense Refill albuterol 2.5 mg /3 mL (0.083 %) nebulizer solution INHALE 1 (ONE) vial via NEBULIZER FOUR TIMES DAILY albuterol 90 mcg/actuation inhaler INHALE 2 PUFFS BY MOUTH EVERY 4 HOURS NEEDED for SHORTNESS OF BREATH amiodarone (Pacerone) 200 mg tablet Take 1 tablet (200 mg) by mouth once daily as directed. 90 tablet 3 aspirin 81 mg EC tablet Take 1 tablet by mouth in the morning. atorvastatin (Lipitor) 80 mg tablet Take 80 mg by mouth in the morning. cholecalciferol (Vitamin D-3) 50 MCG (1999) tablet 1 (one) time each day at the same time. cyclobenzaprine (Flexeril) 10 mg tablet Take 10 mg by mouth if needed in the morning, at noon, and at bedtime. ferrous sulfate 324 (more content not included)...[facility]10-02-2023 NoteUT Electrophysiology Consult Note Reason for visit: PVC induced NSVT, on amiodarone HPI: Chiara Juares is a 67 y.o. year old with past medical history of CAD with stable recent cath 10/30/22 and hx of x2 stents to RCA in 2001 and 06/2022, hypertension, anemia, dyslipidemia, COPD, chronic anemia, obesity, migraine headaches, longstanding tobacco use history but has quit, frequent PVCs. She is currently on dual antiplatelet therapy with aspirin and effient. She was recently seen at [facility] as a transfer from [facility] for complaints of symptomatic wide-complex tachycardia with concerns of VT given she was having frequent PVCs. She was started on amiodarone and her Coreg was switched to Toprol. She had cardiac cath which showed stable disease and so EP was consulted regarding PVCs and NSVT. She was recommended to continue amiodarone with consideration for mexiletine if needed. Since discharge she has been feeling well with infrequent complaints of palpitations. She denies chest pain, shortness of breath. She has had some dyspnea going on which has been chronic for her but has not worsened compared to previous. She did have an episode of dizziness with shortness of breath and lower extremity weakness, which may have been due to her having suspected low BP but has not occurred since. Due to those symptoms we discussed doing a 30-day event monitor to see if she is having breakthrough PVCs/NSVT on amiodarone. She had previously worn a 30-day event monitor which demonstarted evidence of NSVT and PVCs. She was also on cardiac rehab on 10/26/2022 which showed PVC induced short run of NSVT Event monitor 09/2022 Critical events 10/25/2022 PVCs with NSVT ECG 10/27/2022 sinus rhythm with PVCs 4/18/23 sinus rhythm with frequent PVC PMH: Past Medical History: Diagnosis Date Chronic GERD 12/28/2016 Chronic kidney disease COPD (chronic obstructive pulmonary disease) ([facility]) Coronary artery disease Coronary artery disease involving [place] coronary artery of [place] heart without angina pectoris 12/28/2016 Essential hypertension 12/14/2016 Hyperlipidemia Lower back pain 12/28/2016 Mixed hyperlipidemia 12/14/2016 Shortness of breath 12/28/2016 PSH: Past Surgical History: Procedure Laterality Date CARDIAC CATHETERIZATION CHOLECYSTECTOMY CORONARY STENT PLACEMENT HYSTERECTOMY SH: Social Determinants of Health Tobacco Use: Medium Risk (11/17/2022) Patient History Smoking Tobacco Use: Former Smokeless Tobacco Use: Never Passive Exposure: Not on file Alcohol Use: Not on file Financial Resource Strain: Low Risk (10/26/2022) Overall Financial Resource Strain (CARDIA) Difficulty of Paying Living Expenses: Not very hard Food Insecurity: Food Insecurity Present (10/26/2022) Hunger Vital Sign Worried About Running Out of Food in the Last Year: Sometimes true Ran Out of Food in the Last Year: Not on file Transportation Needs: Unknown (10/26/2022) PRAPARE - Transportation Lack of Transportation (Medical): No Lack of Transportation (Non-Medical): Not on file Physical Activity: Not on file Stress: Not on file Social Connections: Not on file Intimate Partner Violence: Unknown (10/26/2022) Humiliation, Afraid, Rape, and Kick questionnaire Fear of Current or Ex-Partner: No Emotionally Abused: Not on file Physically Abused: Not on file Sexually Abused: Not on file Depression: Not on file Housing Stability: Unknown (10/26/2022) Housing Stability Vital Sign Unable to Pay for Housing in the Last Year: Not on file Number of Places Lived in the Last Year: Not on file Unstable Housing in the Last Year: No Allergies: Allergies Allergen Reactions Clopidogrel Hydrochlorothiazide Exfoliative Dermatitis Penicillins Vancomycin Weight: 92.1kg Visit Vitals BP 108/74 (BP Location: Left arm, Patient Position: Sitting) Pulse 64 Ht 1.613 m (5' 3.5 ) Wt 92.1 kg (203 lb) SpO2 95% BMI 35.40 kg/m??? OB Status Postmenopausal Smoking Status Former BSA 2.03 m??? Meds: Current Outpatient Medications on File Prior to Visit Medication Sig Dispense Refill albuterol 2.5 mg /3 mL (0.083 %) nebulizer solution INHALE 1 (ONE) vial via NEBULIZER FOUR TIMES DAILY albuterol 90 mcg/actuation inhaler INHALE 2 PUFFS BY MOUTH EVERY 4 HOURS NEEDED for SHORTNESS OF BREATH amiodarone (Pacerone) 200 mg tablet Take 1 tablet (200 mg) by mouth once daily as directed. 90 tablet 3 aspirin 81 mg EC tablet Take 1 tablet by mouth in the morning. atorvastatin (Lipitor) 80 mg tablet Take 80 mg by mouth in the morning. cyclobenzaprine (Flexeril) 10 mg tablet Take 10 mg by mouth if needed in the morning, at noon, and at bedtime. ferrous sulfate 324 mg (65 mg iron) EC tablet TAKE 1 TABLET BY MOUTH WITH BREAKFAST Oral for 30 Days fluticasone propion-salmeteroL (Advair Diskus) 250-50 mcg/dose diskus inhaler INHALE 1 PUFF BY MOUTH TWICE DAILY; rinse mouth after use furosemid (more content not included)...[facility] 12-28-2022 NotePatient here for 6 week follow up NSVT, CAD, and hypertension. Recently stopped going to phase 3 cardiac rehab to return to the gym with her , which she states she'll be doing soon. Says a few weeks ago she had an episode of dizziness with SOB and LE weakness. Review of Systems Cardiovascular: Positive for dyspnea on exertion. Respiratory: Positive for cough, shortness of breath and wheezing. Hematologic/Lymphatic: Bruises/bleeds easily. Musculoskeletal: Positive for arthritis, back pain, joint pain and myalgias. Neurological: Positive for light-headedness. 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 NoteUTP CARDIOLOGY PROGRESS NOTE HPI: Chiara Juares is a 67 y.o. female here for hospital F/U HPI Currently she has returned to cardiac rehab without any concerning symptoms or Arrythmia per CR notes. Denied chest pain, shortness of breath, orthopnea or palpitations. Denied lightheadedness/dizziness or syncope. Admits generalized fatigue. Overall states she is feeling well since discharge 10/26/2022 - 10/31/2022 Discharge Summary Final Discharge Diagnosis: Arrhythmia Hyponatremia Admission Diagnosis: Arrhythmia [I49.9] Hospital course: Chiara Juares is an 67 y.o. female who came from home. She was at cardiac rehab on the and had experienced shortness of breath and dizziness which patient states are usually her only symptoms when she is not feeling well. Patient denied chest pain, palpations, changes in vision, edema, fever, chills. Patient currently without shortness of breath or dizziness. Patient went to [facility] where she was noted to be having frequent PVCs and was having runs of V. tach. Patient states arrhthymias became after cardiac stent in June. Patient follows with [facility] cardiology group. patient was placed on amiodarone infusion and was transferred to [facility] for higher level of care. I discussed with on-call hoeing row boss, who recommended continuation of amiodarone infusion, continue home beta-fernando, echo placed for morning, and they will see patient in the morning. Discussed with hoeing row boss EKG noting frequent PVCs. Patient with sodium of 125, BNP 654, chest x-ray without pleural effusion, creatinine is 1.11. 3 months ago NA was 133. Hemoglobin 7.7 with hemoglobin at outlying facility 8.3. Continue anemia workup. Continue hyponatremia work up. Admit to step down with cardiology and nephrology consults. Review of Systems Constitutional: Positive for fatigue. Respiratory: Negative. Cardiovascular: Negative. Neurological: Negative. Visit Vitals BP 106/78 (BP Location: Left arm, Patient Position: Sitting, BP Cuff Size: Large adult) Pulse 57 Ht 1.613 m (5' 3.5 ) Wt 88.2 kg (194 lb 8 oz) SpO2 97% BMI 33.91 kg/m??? OB Status Postmenopausal Smoking Status Former BSA 1.99 m??? Allergies Allergen Reactions Clopidogrel Hydrochlorothiazide Exfoliative Dermatitis Penicillins Vancomycin Medications: Current Outpatient Medications on File Prior to Visit Medication Sig Dispense Refill albuterol 2.5 mg /3 mL (0.083 %) nebulizer solution INHALE 1 (ONE) vial via NEBULIZER FOUR TIMES DAILY albuterol 90 mcg/actuation inhaler INHALE 2 PUFFS BY MOUTH EVERY 4 HOURS NEEDED for SHORTNESS OF BREATH aspirin 81 mg EC tablet Take 1 tablet by mouth in the morning. atorvastatin (Lipitor) 80 mg tablet Take 80 mg by mouth in the morning. cyclobenzaprine (Flexeril) 10 mg tablet Take 10 mg by mouth if needed in the morning, at noon, and at bedtime. ferrous sulfate 324 mg (65 mg iron) EC tablet Take 1 tablet (65 mg) by mouth with breakfast. 30 tablet 0 fluticasone propion-salmeteroL (Advair Diskus) 250-50 mcg/dose diskus inhaler INHALE 1 PUFF BY MOUTH TWICE DAILY; rinse mouth after use furosemide (Lasix) 40 mg tablet Take 20 mg by mouth in the morning. ipratropium (Atrovent) 0.02 % nebulizer solution INHALE 1 (ONE) vial via NEBULIZER FOUR TIMES DAILY isosorbide mononitrate ER (Imdur) 30 mg 24 hr tablet Take 1 tablet (30 mg) by mouth in the morning. Do not crush or chew. 90 tablet 3 metoprolol succinate XL (Toprol-XL) 100 mg 24 hr tablet Take 1 tablet (100 mg) by mouth in the morning for 90 doses. Do not crush or chew. Do not start before November 01, 2022. 30 tablet 2 omeprazole (PriLOSEC) [address] capsule take 1 capsule by oral route every day before a meal sodium chloride 1,000 mg tablet Take 2 tablets (2 g) by mouth with breakfast and with evening meal. 120 tablet 0 Spiriva Respimat 2.5 mcg/actuation inhaler INHALE 2 PUFFS BY MOUTH EVERY DAY ticagrelor (Brilinta) 90 mg tablet Take 1 tablet (90 mg) by mouth in the morning and at bedtime. 180 tablet 3 [DISCONTINUED] amiodarone (Pacerone) 200 mg tablet Take 2 tablets (400 mg) by mouth with breakfast and with evening meal for 7 days, THEN 1 tablet (200 mg) with breakfast and with evening meal. 88 tablet 0 [DISCONTINUED] magnesium oxide (Mag-Ox) 400 mg (241.3 mg magnesium) tablet Take 1 tablet (400 mg) by mouth in the morning and at bedtime for 30 doses. 30 tablet 0 [DISCONTINUED] olmesartan (BENIcar) 40 mg tablet Take 40 mg by mouth in the morning. No current facility-administered medications on file prior to visit. Physical Exam: Constitutional: Appearance: Normal appearance. Without apparent distress, obese, chronically ill HENT: Head: Normocephalic and atraumatic. Nose: Nose normal. Mouth/Throat: Mouth: Mucous membranes are moist. Eyes: Extraocular Movements: Extraocular movements intact. Conjunctiva/sclera: Conjunctivae normal. Neck: Vascular: No JVD. Cardiovas (more content not included)...[facility] 11-17-2022 NoteCoronary artery disease is stable without any concerning symtpoms Continue GDMT- ASA, brilinta, toprol, imdur continue risk factor modifications- heart healthy diet, regular exercise as tolerated and continue all medications.[facility] 11-17-2022 NoteHypertension is well controlled [facility]23 NoteCurrently on amiodarone for rhythm control and toprol for rate control for NSVT and frequent PVCs Recent heart cath with non obstructive CAD- no intervention was needed RTC with EP for further management and evaluation. In light of COPD please determine with Dr Coughlin if terminal superintendent amiodarone if feasible.[facility]08-05-2023 NoteDischarge education completed with patient at bedside; no further questions or concerns. Copy of signed AVS placed in paper chart. Prescriptions filled via imeds and sent electronically to pharmacy on file. RN escorted patient to main entrance lobby via wheelchair.[facility]08-05-2023 Note Hospital Medicine Discharge Summary Final Discharge Diagnosis: Arrhythmia Hyponatremia Admission Diagnosis: Arrhythmia [I49.9] Hospital course: Chiara Juares is an 67 y.o. female who came from home. She was at cardiac rehab on the and had experienced shortness of breath and dizziness which patient states are usually her only symptoms when she is not feeling well. Patient denied chest pain, palpations, changes in vision, edema, fever, chills. Patient currently without shortness of breath or dizziness. Patient went to [facility] where she was noted to be having frequent PVCs and was having runs of V. tach. Patient states arrhthymias became after cardiac stent in June. Patient follows with [facility] cardiology group. patient was placed on amiodarone infusion and was transferred to [facility] for higher level of care. I discussed with on-call hoeing row boss, who recommended continuation of amiodarone infusion, continue home beta-fernando, echo placed for morning, and they will see patient in the morning. Discussed with hoeing row boss EKG noting frequent PVCs. Patient with sodium of 125, BNP 654, chest x-ray without pleural effusion, creatinine is 1.11. 3 months ago NA was 133. Hemoglobin 7.7 with hemoglobin at outlying facility 8.3. Continue anemia workup. Continue hyponatremia work up. Admit to step down with cardiology and nephrology consults. # Cardiac arrhythmia, frequent PVCs: - Echo showed EF 50%. - Patient had positive stress test. Left heart cath showed patent stents and non obstructive disease of the left anterior descending and left circumflex coronary arteries. - Coreg switched to Toprol 100 mg. Discharged on oral amiodarone per Cardio. - Patient is to continue to wear her event monitor. # Acute on chronic anemia: - No overt bleed. - GI recommended outpatient colonoscopy. - Discharged on iron replacement. # Hyponatremia, likely SIADH, improving: - Nephro recommended fluid restriction 1200 ml per day, salt tablets 2 g bid and Lasix 20 mg. - Repeat BMP next week and if sodium is back to normal limit, patient can stop taking salt tablets. - Follow up with Nephrology. # CAD s/p recent PCI pm June 2022: - Continue aspirin, Brilinta, metoprolol and Lipitor. # COPD: - Resume her inhalers. # HTN: - Continue Toprol and olmesartan. Dear Dr. Ric MD, [facility] is advised to follow up with you within 1-2 weeks. Follow-up with: Cardiology and Nephrology Scheduled appointments: No future appointments. Your medication list START taking these medications Instructions Last Dose Given Next Dose Due amiodarone 200 mg tablet Commonly known as: Pacerone Start taking on: October 31, 2022 Take 1 tablet (200 mg) by mouth with breakfast and with evening meal for 7 days, THEN 1 tablet (200 mg) with breakfast and with evening meal. ferrous sulfate 324 mg (65 mg iron) EC tablet Take 1 tablet (65 mg) by mouth with breakfast. magnesium oxide 400 mg (241.3 mg magnesium) tablet Commonly known as: Mag-Ox Take 1 tablet (400 mg) by mouth in the morning and at bedtime for 30 doses. metoprolol succinate XL 100 mg 24 hr tablet Commonly known as: Toprol-XL Start taking on: November 01, 2022 Take 1 tablet (100 mg) by mouth in the morning for 90 doses. Do not crush or chew. Do not start before November 01, 2022. sodium chloride 1,000 mg tablet Take 2 tablets (2 g) by mouth with breakfast and with evening meal. CONTINUE taking these medications Instructions Last Dose Given Next Dose Due albuterol 90 mcg/actuation inhaler albuterol 2.5 mg /3 mL (0.083 %) nebulizer solution aspirin 81 mg EC tablet atorvastatin 80 mg tablet Commonly known as: Lipitor cyclobenzaprine 10 mg tablet Commonly known as: Flexeril fluticasone propion-salmeteroL 250-50 mcg/dose diskus inhaler Commonly known as: Advair Diskus furosemide 40 mg tablet Commonly known as: Lasix ipratropium 0.02 % nebulizer solution Commonly known as: Atrovent isosorbide mononitrate ER 30 mg 24 hr tablet Commonly known as: Imdur Take 1 tablet (30 mg) by mouth in the morning. Do not crush or chew. olmesartan 40 mg tablet Commonly known as: BENIcar omeprazole [address] capsule Commonly known as: PriLOSEC Spiriva Respimat 2.5 mcg/actuation inhaler Generic drug: tiotropium ticagrelor 90 mg tablet Commonly known as: Brilinta Take 1 tablet (90 mg) by mouth in the morning and at bedtime. STOP taking these medications carvedilol 12.5 mg tablet Commonly known as: Coreg carvedilol 6.25 mg tablet Commonly known as: Coreg Where to Get Your Medications These medications were sent to [facility] - [place], [place] - [address] [place] [address] [address] [place] [address], [facility] [address] amiodarone 200 mg tablet ferrous sulfate 324 mg (65 mg iron) EC tablet magnesium oxide 400 mg (241.3 mg magnesium) tablet metoprolol succinate XL 100 mg 24 h (more content not included)...[facility]08-05-2023 Note Attestation signed by Amara Daugherty MD at 10/31/2022 6:49 PM I personally saw and examined the patient on the same date of service as resident/fellow Dr. Rossi. I discussed the findings and therapeutic plan with the resident/fellow Dr. Rossi. I agree with the documentation, except for any edits/updates below. Nephrology Progress Note Patient : Chiara Juares; 67 y.o. Location: 3116/3116-01 Attending: Alireza Mcallister MD Admit Date: 10/26/2022 Hospital Day: 5 Reason for Consult: Hyponatremia and hypomagnesemia Subjective: History of present illness: Chiara Juares is a 67 y.o. female with significant PMHx of ND, CAD, hypertension, hyperlipidemia, and COPD was admitted yesterday for arrhythmias. Patient states she is SOB and dizzy. Dizziness occurs after taking medications, specifically metoprolol. Patient has been wearing a halter monitor which detected multiple episodes of VT and frequent PVCs. Her episodes got worse after cardiac stent in 06/2022. Patient is followed by Dr. Azevedo ([facility] Cardiology). Nephrology was consulted due to low sodium (125) and magnesium (1.8) levels on work up. Patient does occasionally use alcohol (monthly or less), no hx of alcohol use disorder. Patient is a former smoker. Has has low Na in the past, but not below 130. No hx of thyroid or adrenal issues in patient or family. Interval history: Patient seen and examined at bedside. Patient reports she is feeling better. She denies nausea vomiting abdominal pain diarrhea and constipation. Serum sodium improved from 125 to 128. She is on Lasix 20 mg PO daily and salt tablets 2gm BID.. Patient can discharge from renal stand point of view, recommend continue Lasix 20 mg PO daily and salt tablet 2gm BID Follow-up with PCP with repeat BMP. If repeat BMP shows normal serum sodium level, she can discontinue salt tablets. She can continue her home dose of Lasix 20 mg. Objective: Input/Output: Intake/Output Summary (Last 24 hours) at 10/31/2022 1223 Last data filed at 10/31/2022 0900 Gross per 24 hour Intake 2172.96 ml Output 1900 ml Net 272.96 ml I/O last 3 completed shifts: In: 2213 (24.5 mL/kg) [P.O.:1600; I.V.:68 (0.8 mL/kg); IV Piggyback:545] Out: 1910 (21.2 mL/kg) [Urine:1900 (0.6 mL/kg/hr); Blood:10] Weight: 90.3 kg Vital signs: Temperature: Temp: 36.6 ???C (97.9 ???F) TMax: Temp (24hrs), Av.7 ???C (98.1 ???F), Min:36.4 ???C (97.6 ???F), Max:37.2 ???C (98.9 ???F) Respirations: Resp: 13 Pulse: Heart Rate: 73 BP: BP: (!) 132/94 BP Range: Systolic (24hrs), Av , Min:76 , Max:142 Diastolic (24hrs), Av, Min:38, Max:94 Wt Readings from Last 3 Encounters: 10/31/22 90.3 kg (199 lb 1.2 oz) 08/18/22 93.4 kg (206 lb) 07/08/22 95.3 kg (210 lb) Physical Exam Constitutional: General: She is not in acute distress. Appearance: She is obese. HENT: Head: Normocephalic and atraumatic. Cardiovascular: Rate and Rhythm: Normal rate and regular rhythm. Heart sounds: Normal heart sounds. Pulmonary: Breath sounds: Normal breath sounds. Abdominal: General: Abdomen is flat. Palpations: Abdomen is soft. Tenderness: There is no abdominal tenderness. Musculoskeletal: Right lower le+ Edema present. Left lower le+ Edema present. Skin: General: Skin is warm and dry. Neurological: Mental Status: She is alert and oriented to person, place, and time. Mental status is at baseline. Psychiatric: Attention and Perception: Attention normal. Mood and Affect: Mood normal. Behavior: Behavior normal. Behavior is cooperative. Current Medications: Scheduled Meds: amiodarone, 400 mg, oral, BID with meals aspirin, 81 mg, oral, Daily atorvastatin, 80 mg, oral, Daily diphenhydrAMINE, 25 mg, oral, Nightly fluticasone propion-salmeteroL, 1 puff, inhalation, BID furosemide, 20 mg, oral, Daily [Held by provider] heparin (porcine), 5,000 Units, subcutaneous, BID iron sucrose, 200 mg, intravenous, q24h isosorbide mononitrate ER, 30 mg, oral, Daily kit prep Tc 99m-sestamibi no.1, 10 millicurie, intravenous, Once in imaging kit prep Tc 99m-sestamibi no.1, 30 millicurie, intravenous, Once in imaging losartan, 50 mg, oral, Daily magnesium oxide, 400 mg, oral, BID metoprolol succinate XL, 100 mg, oral, Daily pantoprazole, 40 mg, oral, Daily sodium chloride, 2 g, oral, BID with meals ticagrelor, 90 mg, oral, BID umeclidinium, 1 puff, inhalation, Daily Continuous Infusions: PRN Meds: PRN medications: acetaminophen, albuterol, nitroglycerin, nystatin Outpatient Medications: Medication Documentation Review Audit Reviewed by Fermín Vincent RN (Registered Nurse) on 10/26/22 at 2316 Medication Order Taking? Sig Documenting Provider Last Dose Status albuterol 2.5 mg /3 mL (0.083 %) nebuliz (more content not included)... [facility]08-04-2023 Note Attestation signed by Robbie Kaur MD at 11/11/2022 7:32 PM I personally saw and examined the patient on the same date of service as the fellow. I discussed the findings and therapeutic plan with the fellow. Plan of care was discussed with patient, and patient is agreeable with plan. I agree with the documentation, except for any edits/updates below. Teaching Physician's Revisions: none Robbie Kaur MD [place] [facility] Subjective No acute events overnight. Seen and examined at bedside in the AM. Denies any chest pain. Her shortness of breath, dizziness at baseline. Stress test yesterday low risk for ischemia, however patient endorses typical chest pain during the test, so plan to proceed with LHC/RHC today. Objective Patient Vitals for the past 24 hrs: BP Temp Temp src Pulse Resp SpO2 Weight 10/30/22 1800 132/66 -- -- 74 17 100 % -- 10/30/22 1700 122/57 -- -- 69 17 100 % -- 10/30/22 1600 95/52 -- -- 67 22 98 % -- 10/30/22 1500 88/54 -- -- 70 21 100 % -- 10/30/22 1400 76/55 -- -- 70 16 100 % -- 10/30/22 1330 (!) 96/38 -- -- 66 23 100 % -- 10/30/22 1245 104/70 -- -- 67 16 -- -- 10/30/22 1230 104/53 -- -- 67 17 98 % -- 10/30/22 1215 117/62 -- -- 69 17 96 % -- 10/30/22 1200 101/62 -- -- 69 25 93 % -- 10/30/22 1139 -- -- -- -- -- 97 % -- 10/30/22 1138 110/59 -- -- 55 18 98 % -- 10/30/22 1036 (!) 175/92 -- -- 73 18 97 % -- 10/30/22 0820 150/68 36.8 ???C (98.2 ???F) Temporal 70 16 98 % -- 10/30/22 0646 (!) 118/49 -- -- 74 15 100 % 94.4 kg (208 lb 1.8 oz) 10/30/22 0000 -- -- -- 67 17 100 % -- 10/29/222014 107/55 36.5 ???C (97.7 ???F) Temporal 63 20 96 % -- Physical Exam Constitutional: General: She is not in acute distress. Appearance: She is not ill-appearing. HENT: Head: Normocephalic and atraumatic. Cardiovascular: Rate and Rhythm: Normal rate and irregular rhythm. Pulmonary: Effort: Pulmonary effort is normal. Abdominal: General: Bowel sounds are normal. Palpations: Abdomen is soft. Tenderness: There is no abdominal tenderness. Musculoskeletal: General: Normal range of motion. Cervical back: Normal range of motion. Right lower leg: Edema (1+) present. Left lower leg: Edema (1+) present. Skin: General: Skin is warm and dry. Neurological: Mental Status: She is alert and oriented to person, place, and time. Psychiatric: Mood and Affect: Mood normal Lab Results Component Value Date NA 125 (L) 10/30/2022 K 3.9 10/30/2022 CL 95 (L) 10/30/2022 ANIONGAP 11 10/30/2022 BUN 18 10/30/2022 CREATININE 0.98 10/30/2022 CALCIUM 8.7 10/30/2022 MG 1.9 10/29/2022 Lab Results Component Value Date BILITOT 0.2 (L) 10/26/2022 ALKPHOS 113 (H) 10/26/2022 AST 17 10/26/2022 ALT 11 10/26/2022 PROT 6.4 10/26/2022 ALBUMIN 3.8 10/26/2022 Lab Results Component Value Date WBC 5.62 10/30/2022 RBC 2.99 (L) 10/30/2022 HGB 8.4 (L) 10/30/2022 HCT 24.8 (L) 10/30/2022 MCV 82.9 10/30/2022 MCH 28.1 10/30/2022 MCHC 33.9 10/30/2022 RDW 14.4 10/30/2022 NEUTOPHILPCT 70.9 10/26/2022 LYMPHOPCT 16.0 (L) 10/26/2022 MONOPCT 9.9 10/26/2022 EOSPCT 2.1 10/26/2022 BASOPCT 0.7 10/26/2022 NEUTROABS 5.72 10/26/2022 LYMPHSABS 1.29 10/26/2022 MONOSABS 0.80 10/26/2022 EOSABS 0.17 10/26/2022 BASOSABS 0.06 10/26/2022 PLT 289 10/30/2022 NRBC 0.0 10/26/2022 Encounter Date: 10/26/22 ECG 12 lead Result Value Ventricular Rate 86 Atrial Rate 86 ME Interval 146 QRS DURATION 84 QT Interval 376 QTC CALCULATION(BAZETT) 449 P [place] 78 R-[place] 52 T Wave [place] 66 Impression Sinus rhythm with frequent Premature ventricular complexes in a pattern of bigeminy Otherwise normal ECG When compared with ECG of 14-JUL-2022 12:01, No significant change was found Confirmed by Piter MATHIAS, TOBIN Curtis ([id number]) on 10/27/2022 12:55:07 PM Cardiac cath 07/14/22 FINAL IMPRESSIONS: 1. Severe, discrete, stenosis of the distal right coronary artery successfully treated by balloon angioplasty and Synergy drug-eluting stent placement 2. Patent stent in the mid right coronary artery with mild in-stent restenosis 3. Mild disease of the left anterior descending and left circumflex coronary arteries 4. Mildly elevated right-sided filling pressures and wedge pressure 5. Normal cardiac output/cardiac index RECOMMENDATIONS: 1. Aspirin 81 mg lifelong 2. Brilinta 90 mg p.o. twice daily for a minimum of 6 months; the patient has an allergy to Plavix. 3. Aggressive cardiovascular factor modification 4. Optimal medical therapy for coronary artery disease including dual antiplatelet therapy, moderate to high intensity statin therapy, a beta-fernando, plus or minus an angiotensin-converting enzyme inhibitor 5. An outpatient echocardiogram will be performed 6. Should the patient's shortn (more content not included)...[facility]-04[facility] NoteHospital Medicine Daily Progress Note - 10/30/2022 4:19 PM; Room: [address] [place] [address] Admission: 10/26/2022 10:28 PM; Length of stay: 4 days THE HOSPITALIST TEAM PREFERS TO USE FX Aligned FOR COMMUNICATION 7AM-7PM. IF I DO NOT RESPOND WITHIN 15 MINUTES, PLEASE PAGE ME/CALL THROUGH THE SURVEY MANAGER. FROM 7PM-7AM, PLEASE PAGE [phone](COVR) Code Status: Full Code Discharge Destination: home Discharge planning: Pending ischemic work up. EP input pending. Overview Patient is seen for evaluation and management of SOB. Subjective Chiara A Juares was seen and examined at bedside. Patient denies CP, SOB at rest, N/V/D/C, fever, chills, or abdominal pain. Was transfused yesterday. Hgb up to 8.9, but now 8.4. DVT ppx being held. If stable will resume tomorrow. Serum sodium downtrending. Patient had chest pain w lexiscan yesterday and went for R and L heart cath today. Physical Exam Visit Vitals BP 95/52 Pulse 67 Temp 36.8 ???C (98.2 ???F) (Temporal) Resp 22 Intake/Output Summary (Last 24 hours) at 10/30/2022 1619 Last data filed at 10/30/2022 1531 Gross per 24 hour Intake 1622.96 ml Output 1710 ml Net -87.04 ml Physical Exam Vitals and nursing note reviewed. Constitutional: General: She is not in acute distress. Appearance: Normal appearance. She is obese. She is not ill-appearing. HENT: Head: Normocephalic. Mouth/Throat: Mouth: Mucous membranes are moist. Eyes: Conjunctiva/sclera: Conjunctivae normal. Cardiovascular: Rate and Rhythm: Normal rate and regular rhythm. Pulses: Normal pulses. Heart sounds: Normal heart sounds. No murmur heard. No friction rub. No gallop. Pulmonary: Effort: Pulmonary effort is normal. No respiratory distress. Breath sounds: Normal breath sounds. No wheezing, rhonchi or rales. Abdominal: General: Abdomen is flat. Bowel sounds are normal. There is no distension. Palpations: Abdomen is soft. There is no mass. Tenderness: There is no abdominal tenderness. There is no guarding. Musculoskeletal: General: No swelling, tenderness or deformity. Normal range of motion. Right lower leg: No edema. Left lower leg: No edema. Skin: General: Skin is warm. Capillary Refill: Capillary refill takes less than 2 seconds. Coloration: Skin is not jaundiced. Findings: No erythema, lesion or rash. Neurological: General: No focal deficit present. Mental Status: She is alert and oriented to person, place, and time. Mental status is at baseline. Cranial Nerves: No cranial nerve deficit. Sensory: No sensory deficit. Motor: No weakness. Psychiatric: Mood and Affect: Mood normal. Behavior: Behavior normal. Thought Content: Thought content normal. Judgment: Judgment normal. Estimated body mass index is 36.28 kg/m??? as calculated from the following: Height as of this encounter: 1.613 m (5' 3.5 ). Weight as of this encounter: 94.4 kg (208 lb 1.8 oz). Active Inpatient Problems Principal Problem: Arrhythmia Active Problems: COPD (chronic obstructive pulmonary disease) ([facility]) Coronary artery disease involving [place] coronary artery of [place] heart without angina pectoris Essential hypertension History of acute inferior wall ND Mixed hyperlipidemia Anemia Hypomagnesemia Hyponatremia Chest pain Assessment and Plan #Cardiac arrhythmia, frequent PVCs #Acute on chronic anemia - Now 8.4, was down into 7s this admission, was in 11s in June when patient started brilinta #Hx of runs of [employer] at [facility] #Hyponatremia, currently asymptomatic. Sodium 125 #Hypomagnesia #Essential HTN #CAD s/p stents in June on ASA, brilinta #COPD, stable - Patient had + stress yesterday. L heart cath today reportedly was nonobstructive. Report pending. - Amiodarone was switched to PO. Follow up cardiology recs. - DVT ppx held, if hgb is stable, resume tomorrow. GI may want to take her for EGD/colonoscopy for source of iron deficiency anemia since starting asa/brillinta. - Follow up nephrology recs regarding hyponatremia. Currently on fluid restriction of 1200cc/day. Sodium tablets were increased to 2g BID. - GI recommending 5 days of 200mg venofer. Ferritin 13 - Coreg was Dc'd for patient's preferred toprol. - Transfused 1U PRBCs 2 days ago d/t hgb <8 in setting of significant CAD. VTE Prophylaxis: Held d/t suspected GI bleeding Scheduled Meds amiodarone, 400 mg, oral, BID with meals aspirin, 81 mg, oral, Daily atorvastatin, 80 mg, oral, Daily diphenhydrAMINE, 25 mg, oral, Nightly fluticasone propion-salmeteroL, 1 puff, inhalation, BID furosemide, 20 mg, oral, Daily [Held by provider] heparin (porcine), 5,000 Units, subcutaneous, BID iron sucrose, 200 mg, intravenous, q24h isosorbide mononitrate ER, 30 mg, oral, Daily kit prep Tc 99m-sestamibi no.1, 10 millicurie, intravenous, Once in imaging kit prep Tc 99m-sestamibi no.1, 30 millicurie, intravenous, Once in imaging losartan, 50 mg, oral, Daily magnesium oxide, 4 (more content not included)...[facility]08-04-2023 Note Attestation signed by Amara Daugherty MD at 10/30/2022 3:45 PM As the teaching physician, I have personally performed or re-performed the history of present illness, physical exam and medical decision making activities of the encounter and verified the medical student's documentation. I made pertinent changes as necessary to ensure accurate documentation. Nephrology Progress Note Patient : Chiara Juares; 67 y.o. Location: 3116 Attending: Viv Livingston MD Admit Date: 10/26/2022 Hospital Day: 4 Reason for Consult: Hyponatremia and hypomagnesemia Subjective: History of present illness: Chiara Juares is a 67 y.o. female with significant PMHx of ND, CAD, hypertension, hyperlipidemia, and COPD was admitted yesterday for arrhythmias. Patient states she is SOB and dizzy. Dizziness occurs after taking medications, specifically metoprolol. Patient has been wearing a halter monitor which detected multiple episodes of VT and frequent PVCs. Her episodes got worse after cardiac stent in 06/2022. Patient is followed by Dr. Azevedo ([facility] Cardiology). Nephrology was consulted due to low sodium (125) and magnesium (1.8) levels on work up. Patient does occasionally use alcohol (monthly or less), no hx of alcohol use disorder. Patient is a former smoker. Has has low Na in the past, but not below 130. No hx of thyroid or adrenal issues in patient or family. Interval history: Patient was examined at bedside. She is out of bed in chair. There were no significant overnight events. Patient is going for cardiac cath today. Had chest pain yesterday after stress test. Patient reports she is doing okay, sleeping a bit better than before. Denies fever, chills, chest pain, nausea, vomiting, diarrhea, constipation, headache, numbness, and weakness. Na unchanged from yesterday (125). Fluid restriction changed to 1250 ml. Urine output yesterday was 900 ml (0.4 ml/kg/hr) with 1x unmeasured urine occurrence. Intake was only 515 ml. Magnesium not drawn this morning. Last Mg was 1.9 and improving. Objective: Input/Output: Intake/Output Summary (Last 24 hours) at 10/30/2022 1252 Last data filed at 10/30/2022 1245 Gross per 24 hour Intake 622.96 ml Output 810 ml Net -187.04 ml I/O last 3 completed shifts: In: 1295 (13.7 mL/kg) [P.O.:1280; IV Piggyback:15] Out: 1500 (15.9 mL/kg) [Urine:1500 (0.4 mL/kg/hr)] Weight: 94.4 kg Vital signs: Temperature: Temp: 36.8 ???C (98.2 ???F) TMax: Temp (24hrs), Av.7 ???C (98 ???F), Min:36.5 ???C (97.7 ???F), Max:36.8 ???C (98.2 ???F) Respirations: Resp: 16 Pulse: Heart Rate: 67 BP: BP: 104/70 BP Range: Systolic (24hrs), Av , Min:101 , Max:175 Diastolic (24hrs), Av, Min:49, Max:92 Wt Readings from Last 3 Encounters: 10/30/22 94.4 kg (208 lb 1.8 oz) 08/18/22 93.4 kg (206 lb) 07/08/22 95.3 kg (210 lb) Physical Exam Constitutional: General: She is not in acute distress. Appearance: She is obese. HENT: Head: Normocephalic and atraumatic. Cardiovascular: Rate and Rhythm: Normal rate and regular rhythm. Heart sounds: Normal heart sounds. Pulmonary: Breath sounds: Normal breath sounds. Abdominal: General: Abdomen is flat. Palpations: Abdomen is soft. Tenderness: There is no abdominal tenderness. Musculoskeletal: Right lower le+ Edema present. Left lower le+ Edema present. Skin: General: Skin is warm and dry. Neurological: Mental Status: She is alert and oriented to person, place, and time. Mental status is at baseline. Psychiatric: Attention and Perception: Attention normal. Mood and Affect: Mood normal. Behavior: Behavior normal. Behavior is cooperative. Current Medications: Scheduled Meds: amiodarone, 400 mg, oral, BID with meals aspirin, 81 mg, oral, Daily atorvastatin, 80 mg, oral, Daily diphenhydrAMINE, 25 mg, oral, Nightly fluticasone propion-salmeteroL, 1 puff, inhalation, BID furosemide, 20 mg, oral, Daily [Held by provider] heparin (porcine), 5,000 Units, subcutaneous, BID iron sucrose, 200 mg, intravenous, q24h isosorbide mononitrate ER, 30 mg, oral, Daily kit prep Tc 99m-sestamibi no.1, 10 millicurie, intravenous, Once in imaging kit prep Tc 99m-sestamibi no.1, 30 millicurie, intravenous, Once in imaging losartan, 50 mg, oral, Daily magnesium oxide, 400 mg, oral, BID metoprolol succinate XL, 100 mg, oral, Daily pantoprazole, 40 mg, oral, Daily sodium chloride, 2 g, oral, BID with meals ticagrelor, 90 mg, oral, BID umeclidinium, 1 puff, inhalation, Daily Continuous Infusions: PRN Meds: PRN medications: albuterol, nitroglycerin Outpatient Medications: Medication Documentation Review Audit Reviewed by Fermín Vincent RN (Registered Nurse) on 10/26/22 at 2316 Medication Order Taking? Sig Docum (more content not included)...[facility] NotePatient: Chiara Juares Procedure Information Date/Time: 10/30/22 1400 Procedures: Coronary angiography Right heart cath Location: [facility] CABLE TECHNICIAN 3 / [facility] (Cath) Providers: Robbie Kaur MD Clinical information reviewed: Allergies Meds Problems Physical Exam Airway Mallampati: III Cardiovascular Rhythm: regular Rate: normal Dental Pulmonary Breath sounds clear to auscultation Abdominal Abdomen: soft Anesthesia Plan ASA 3 other (Conscious sedation ) intravenous induction Anesthetic plan and risks discussed with patient. Use of blood products discussed with patient who consented to blood products. Plan discussed with attending. [facility] Gastroenterology/Hepatology Progress Note IDENTIFYING DATA PATIENT: Chiara Juares ADMIT DATE: 10/26/2022 TIME OF EVALUATION: 10/30/2022 9:23 AM HOSPITAL STAY: LOS: 4 days REASON FOR CONSULT: Anemia SUBJECTIVE/INTERVAL HISTORY No overt GI bleeding overnight. Hemoglobin remains stable at 8.4. Patient is to undergo heart catheterization today. OBJECTIVE MEDICATIONS SCHEDULED: amiodarone, 400 mg, oral, BID with meals aspirin, 81 mg, oral, Daily atorvastatin, 80 mg, oral, Daily diphenhydrAMINE, 25 mg, oral, Nightly fluticasone propion-salmeteroL, 1 puff, inhalation, BID furosemide, 20 mg, oral, Daily [Held by provider] heparin (porcine), 5,000 Units, subcutaneous, BID iron sucrose, 200 mg, intravenous, q24h isosorbide mononitrate ER, 30 mg, oral, Daily kit prep Tc 99m-sestamibi no.1, 10 millicurie, intravenous, Once in imaging kit prep Tc 99m-sestamibi no.1, 30 millicurie, intravenous, Once in imaging losartan, 50 mg, oral, Daily magnesium oxide, 400 mg, oral, BID metoprolol succinate XL, 100 mg, oral, Daily pantoprazole, 40 mg, oral, Daily sodium chloride, 1 g, oral, BID with meals ticagrelor, 90 mg, oral, BID umeclidinium, 1 puff, inhalation, Daily PRNs: albuterol, 1 puff, q6h PRN nitroglycerin, 0.4 mg, q5 min PRN Physical VITALS: BP 150/68 (BP Location: Left arm, Patient Position: Sitting) Pulse 70 Temp 36.8 ???C (98.2 ???F) (Temporal) Resp 16 Ht 1.613 m (5' 3.5 ) Wt 94.4 kg (208 lb 1.8 oz) SpO2 98% BMI 36.28 kg/m??? GEN: Alert and oriented x3, NAD CV: Generalized edema PULM: Non-labored ABD: Soft, round Neuro: Moves all visualized extremities spontaneously LABS AND IMAGING CBC: Lab Results Component Value Date WBC 5.62 10/30/2022 RBC 2.99 (L) 10/30/2022 HGB 8.4 (L) 10/30/2022 HCT 24.8 (L) 10/30/2022 MCV 82.9 10/30/2022 RDW 14.4 10/30/2022 PLT 289 10/30/2022 CMP: Lab Results Component Value Date NA 125 (L) 10/30/2022 K 3.9 10/30/2022 CL 95 (L) 10/30/2022 CO2 23 10/30/2022 BUN 18 10/30/2022 IMAGING: ASSESSMENT AND PLAN Chiara Juares is a 67 y.o. female with past medical history of COPD, coronary artery disease status post recent PCI in June 2022, recurrent PVCs, chronic anemia, and episode of ventricular tachycardia who presented to the hospital with 1 month of shortness of breath, palpitations, and dyspnea on exertion secondary to symptomatic arrhythmia. GI has been consulted in the setting of iron deficiency anemia. Patient reports that over the past month, she has had intermittent palpitations, shortness of breath, and exertional dyspnea. She reports that she has a significant cardiac history and ever since her stent in June 2022, she has had significant symptoms. She reports that she is managed on aspirin and Brilinta and denies any other blood thinner use. From a GI standpoint, she reports that her last colonoscopy was greater than 10 years. She denies any prior EGD. She denies any melena, hematochezia, hematemesis, unintentional weight loss, constitutional symptoms, or any other associated symptoms. She denies any family history of colon cancer. Due to her continued shortness of breath and palpitations, she presented to the emergency room for further evaluation. Since her arrival, she has had multiple episodes of PVCs and bigeminy. She is currently on an amiodarone drip. Labs are notable for severe iron deficient anemia, creatinine of 1.11, hemoglobin is 7.7 from baseline 11.4, BNP of 654, and sodium 125 improved to 129. Cardiology was planning to do a left heart catheterization but in the setting of patient's anemia, requested a GI consult prior to proceeding. Assessment Iron deficiency anemia Patient with no overt signs of bleeding. Has not undergone a colonoscopy in the last 10 years however denies any weight loss, change in bowel habits, and any personal or family history of colon cancer. Denies any melena, hematemesis, or hematochezia. Hemoglobin has been stable. Frequent PVCs Nonsustained ventricular tachycardia Coronary artery disease status post PCI on aspirin and brillinta Plan: Case discussed with cardiology team; given heart catheterization was performed today and hemoglobin has remained stable without any overt GI bleeding, can plan for EGD/colonoscopy in the outpatient setting. Patient will need cardiac clearance prior to procedures. Continue to trend hemoglobin, transfuse as needed Recommend IV venofer 200mg for 5 days GI will respectfully sign off; however, we are readily available if additional questions or concerns arise. We will arrange for outpatient follow up in the GI clinic. This consult will be discussed with attending physician. If you have any questions please feel free to contact the GI Service. Thank you for allowing us to participate in the care of Chiara Juares. Gastroenterology 6 am to 4 pm weekdays in house: [phone] (more content not included)... [facility]08-03-2023 Note Attestation signed by Amara Daugherty MD at 10/29/2022 3:33 PM As the teaching physician, I have personally performed or re-performed the history of present illness, physical exam and medical decision making activities of the encounter and verified the medical student's documentation. I made pertinent changes as necessary to ensure accurate documentation. Nephrology Progress Note Patient : Chiara Juares; 67 y.o. Location: 3116/3116-01 Attending: Viv Livingston MD Admit Date: 10/26/2022 Hospital Day: 3 Reason for Consult: Hyponatremia and hypomagnesemia Subjective: History of present illness: Chiara Juares is a 67 y.o. female with significant PMHx of ND, CAD, hypertension, hyperlipidemia, and COPD was admitted yesterday for arrhythmias. Patient states she is SOB and dizzy. Dizziness occurs after taking medications, specifically metoprolol. Patient has been wearing a halter monitor which detected multiple episodes of VT and frequent PVCs. Her episodes got worse after cardiac stent in 06/2022. Patient is followed by Dr. Azevedo ([facility] Cardiology). Nephrology was consulted due to low sodium (125) and magnesium (1.8) levels on work up. Patient does occasionally use alcohol (monthly or less), no hx of alcohol use disorder. Patient is a former smoker. Has has low Na in the past, but not below 130. Interval history: Patient was examined at bedside. She is out of bed, in chair. There has been no significant overnight events. Cardiac stress test today Patient still feels tired, reports she is doing okay. Denies fever, chills, chest pain, nausea, vomiting, confusion, abdominal pain, numbness, and weakness. Na trending down (today 125, previously 126). Amiodarone in D5W was stopped yesterday at 1600. Patient switched to 400 mg BID. Patient is not on any medications that could cause hyponatremia. Patient on 2000 ml fluid restriction. Began measuring urine output yesterday which was 1250 ml / 24 hr (0.6 ml/kg/hr). Mg up to 1.9 from 1.8. Patient is on magnesium oxide 400 mg BID. Objective: Input/Output: Intake/Output Summary (Last 24 hours) at 10/29/2022 1248 Last data filed at 10/29/2022 1100 Gross per 24 hour Intake 2030.56 ml Output 1200 ml Net 830.56 ml I/O last 3 completed shifts: In: 2525.6 (26.9 mL/kg) [P.O.:1400; I.V.:763.1 (8.1 mL/kg); Blood:352.5; IV Piggyback:10] Out: 1250 (13.3 mL/kg) [Urine:1250 (0.4 mL/kg/hr)] Weight: 93.9 kg Vital signs: Temperature: Temp: 36.3 ???C (97.4 ???F) TMax: Temp (24hrs), Av.6 ???C (97.9 ???F), Min:36.3 ???C (97.4 ???F), Max:36.8 ???C (98.3 ???F) Respirations: Resp: 18 Pulse: Heart Rate: 74 BP: BP: 109/54 BP Range: Systolic (24hrs), Av , Min:93 , Max:157 Diastolic (24hrs), Av, Min:49, Max:84 Wt Readings from Last 3 Encounters: 10/28/22 93.9 kg (207 lb 0.2 oz) 08/18/22 93.4 kg (206 lb) 07/08/22 95.3 kg (210 lb) Physical Exam Constitutional: General: She is not in acute distress. Appearance: She is obese. Cardiovascular: Rate and Rhythm: Normal rate and regular rhythm. Heart sounds: Normal heart sounds. Pulmonary: Effort: Pulmonary effort is normal. Breath sounds: Normal breath sounds. Musculoskeletal: Right lower leg: No edema. Left lower leg: No edema. Skin: General: Skin is warm and dry. Neurological: Mental Status: She is alert and oriented to person, place, and time. Mental status is at baseline. Current Medications: Scheduled Meds: amiodarone, 400 mg, oral, BID with meals aspirin, 81 mg, oral, Daily atorvastatin, 80 mg, oral, Daily diphenhydrAMINE, 25 mg, oral, Nightly fluticasone propion-salmeteroL, 1 puff, inhalation, BID furosemide, 20 mg, oral, Daily [Held by provider] heparin (porcine), 5,000 Units, subcutaneous, BID iron sucrose, 200 mg, intravenous, q24h isosorbide mononitrate ER, 30 mg, oral, Daily kit prep Tc 99m-sestamibi no.1, 10 millicurie, intravenous, Once in imaging kit prep Tc 99m-sestamibi no.1, 30 millicurie, intravenous, Once in imaging losartan, 50 mg, oral, Daily magnesium oxide, 400 mg, oral, BID metoprolol succinate XL, 100 mg, oral, Daily pantoprazole, 40 mg, oral, Daily sodium chloride, 1 g, oral, BID with meals ticagrelor, 90 mg, oral, BID umeclidinium, 1 puff, inhalation, Daily Continuous Infusions: PRN Meds: PRN medications: albuterol, nitroglycerin Outpatient Medications: Medication Documentation Review Audit Reviewed by Fermín Vincent RN (Registered Nurse) on 10/26/22 at 2316 Medication Order Taking? Sig Documenting Provider Last Dose Status albuterol 2.5 mg /3 mL (0.083 %) nebulizer solution [id number] INHALE 1 (ONE) vial via NEBULIZER FOUR TIMES DAILY Historical Provider, Active albuterol 90 mcg/actuation inhaler [id number] INHALE 2 PUFFS BY MOUTH EV (more content not included)...[facility]08-03-2023 Note Physical Therapy Physical Therapy Evaluation Patient Name: Chiara Juares : 1955 Today's Date: 10/29/2022 Patient is a 67 y/o female who presents from OSH after SOB and dizziness while at cardiac rehab. EKG found frequent PVC's and runs of V-tach. Transferred to [facility] for further care. Just returned from stress test. Reports she has been independent for her mobility, though limited because of her SOB. No skilled PT needs at this time, patient reports she will continue to ambulate around the room, sit in chair, and remain mobile throughout the remainder of her admission PT to sign off. General Subjective: RN approved PT evaluation and OOB activity this date. Patient in bed upon arrival, agreeable to evaluation. Upon completion, patient left back in the chair with call light within reach, RN aware PT Diagnosis: Impaired activity tolerance, otherwise functionally independent Patient Active Problem List Diagnosis Bladder prolapse, female, acquired Chronic GERD COPD (chronic obstructive pulmonary disease) ([facility]/HCC) Coronary artery disease involving [place] coronary artery of [place] heart without angina pectoris Diuretic-induced hypokalemia Essential hypertension Former smoker Health care maintenance History of acute inferior wall ND Lower back pain Mixed hyperlipidemia Severe obesity (BMI 35.0-39.9) with comorbidity (CMS/HCC) Shortness of breath Chest pain Arrhythmia Anemia Hypomagnesemia Hyponatremia Past Medical History: Diagnosis Date Chronic GERD 12/28/2016 Chronic kidney disease COPD (chronic obstructive pulmonary disease) ([facility]/HCC) Coronary artery disease Coronary artery disease involving [place] coronary artery of [place] heart without angina pectoris 12/28/2016 Essential hypertension 12/14/2016 Hyperlipidemia Lower back pain 12/28/2016 Mixed hyperlipidemia 12/14/2016 Shortness of breath 12/28/2016 Past Surgical History: Procedure Laterality Date CARDIAC CATHETERIZATION CHOLECYSTECTOMY CORONARY STENT PLACEMENT HYSTERECTOMY Precautions Precautions Medical Precautions: telemetry Pain Pain Assessment Pain Assessment: No/denies pain Pain Score: 0 - No pain Cognition Cognition Overall Cognitive Status: Within Functional Limits Arousal/Alertness: Appropriate responses to stimuli Orientation Level: Oriented X4 Following Commands: Follows all commands and directions without difficulty General Assessment General Assessment Hearing: Intact Hand Dominance: Right Home Living Home Living Type of Home: House (Tri-level house) Lives With: Spouse Home Adaptive Equipment: Cane Home Layout: Bed/bath upstairs, Full bath main level (4 steps up to upper level with railing) Home Access: Stairs to enter with rails Entrance Stairs-Rails: Right Entrance Stairs-Number of Steps: 4 Bathroom Shower/Tub: Tub/shower unit Prior Level of Function Prior Function Level of [place]: Independent with ADLs and functional transfers, Independent with homemaking with ambulation Prior Functional Mobility: Independent without device (Used to use cane for longer distances - independent without device within the home) ADL Assistance: Independent Homemaking Assistance: Independent Vision Basic Assessment Vision - Basic Assessment Current Vision: No visual deficits Activity Tolerance Activity Tolerance Endurance: Stage II General Assessments Activity Tolerance Endurance: Stage II Sensation Light Touch: No apparent deficits Coordination Movements are Fluid and Coordinated: Yes Postural Control Postural Control: Within Functional Limits Static Sitting Balance Static Sitting-Balance Support: Feet supported Static Sitting-Level of Assistance: Independent Dynamic Sitting Balance Dynamic Sitting-Balance Support: Feet supported Dynamic Sitting Balance-Level of Assistance: Independent Static Standing Balance Static Standing-Balance Support: No upper extremity supported Static Standing-Level of Assistance: Independent Dynamic Standing Balance Dynamic Standing-Balance Support: No upper extremity supported Dynamic Standing Balance-Level of Assistance: Independent Functional Assessments Bed Mobility Bed Mobility: No Transfers Transfer: Yes Transfer 1 Technique 1: Sit to stand, Stand to sit (From EOB) Transfer Device 1: none Transfer Level of Assistance 1: Independent Ambulation Ambulation: Yes Ambulation 1 Surface 1: Level tile Device 1: No device Assistance 1: Independent Quality of Gait 1: Slow pace, grossly steady without instability or LOB Comments/Distance (ft) 1: 25 ft, patient requested to remain within the room, moderate SOB without O2 desaturation. Extremity Assessments RUE Assessment RUE Assessment: Within Functional Limits LUE Assessment LUE Assessment: Within Functional Limits RLE Assessment RLE Assessment: Within Functional Limits LLE Assessme (more content not included)...[facility] 10-29-2022 Note Attestation signed by Harry Ladd MD at 10/29/2022 6:17 PM I personally saw and examined the patient on the same date of service as resident/fellow . I discussed the findings and therapeutic plan with the resident/fellow . I agree with the documentation, except for any edits/updates below. Acute on chronic anemia with iron deficiency with no signs of overt GI bleeding. The patient had history of V. tach and PVCs. We will hold off EGD and colonoscopy at this time since the hemoglobin is a stable and the patient has no signs of overt GI bleeding. We will plan EGD and colonoscopy as an outpatient. Gastroenterology/Hepatology Progress Note IDENTIFYING DATA PATIENT: Chiara Juares ADMIT DATE: 10/26/2022 TIME OF EVALUATION: 10/29/2022 12:12 PM HOSPITAL STAY: LOS: 3 days REASON FOR CONSULT: SOLOM[place]. SUBJECTIVE/INTERVAL HISTORY No overt GI bleeding overnight. OBJECTIVE MEDICATIONS SCHEDULED: amiodarone, 400 mg, oral, BID with meals aspirin, 81 mg, oral, Daily atorvastatin, 80 mg, oral, Daily diphenhydrAMINE, 25 mg, oral, Nightly fluticasone propion-salmeteroL, 1 puff, inhalation, BID furosemide, 20 mg, oral, Daily [Held by provider] heparin (porcine), 5,000 Units, subcutaneous, BID iron sucrose, 200 mg, intravenous, q24h isosorbide mononitrate ER, 30 mg, oral, Daily kit prep Tc 99m-sestamibi no.1, 10 millicurie, intravenous, Once in imaging kit prep Tc 99m-sestamibi no.1, 30 millicurie, intravenous, Once in imaging losartan, 50 mg, oral, Daily magnesium oxide, 400 mg, oral, BID metoprolol succinate XL, 100 mg, oral, Daily pantoprazole, 40 mg, oral, Daily sodium chloride, 1 g, oral, BID with meals ticagrelor, 90 mg, oral, BID umeclidinium, 1 puff, inhalation, Daily PRNs: albuterol, 1 puff, q6h PRN nitroglycerin, 0.4 mg, q5 min PRN Physical VITALS: BP 107/79 (BP Location: Left arm, Patient Position: Sitting) Pulse 72 Temp 36.3 ???C (97.4 ???F) (Temporal) Resp 19 Ht 1.613 m (5' 3.5 ) Wt 93.9 kg (207 lb 0.2 oz) SpO2 96% BMI 36.09 kg/m??? GEN: alert and oriented x3, NAD HEENT: No lymphadenopathy, normal appearance of eyes, ears, nose, trachea midline CV: RRR, no murmur, no edema PULM: CTAB ABD: soft, non-tender, non-distended, +BS, no hernias Neuro: PERRLA, CN intact, no overt deficits Skin: No rashes, erythema, or bruising Lymph: No enlarged LN Psych: normal affect, normal mentation LABS AND IMAGING CBC: Lab Results Component Value Date WBC 6.93 10/29/2022 RBC 2.98 (L) 10/29/2022 HGB 8.4 (L) 10/29/2022 HCT 25.1 (L) 10/29/2022 MCV 84.2 10/29/2022 RDW 14.3 10/29/2022 PLT 305 10/29/2022 CMP: Lab Results Component Value Date NA 125 (L) 10/29/2022 K 4.2 10/29/2022 CL 95 (L) 10/29/2022 CO2 25 10/29/2022 BUN 19 10/29/2022 PROT 6.4 10/26/2022 IMAGING: @[email or web address]@ ASSESSMENT AND PLAN Chiara Juares is a 67 y.o. female with past medical history of COPD, coronary artery disease status post recent PCI in June 2022, recurrent PVCs, chronic anemia, and episode of ventricular tachycardia who presented to the hospital with 1 month of shortness of breath, palpitations, and dyspnea on exertion secondary to symptomatic arrhythmia. GI has been consulted in the setting of iron deficient anemia. Patient reports that over the past month, she has had intermittent palpitations, shortness of breath, and exertional dyspnea. She reports that she has a significant cardiac history and ever since her stent in June 2022, she has had significant symptoms. She reports that she is managed on aspirin and Brilinta and denies any other blood thinner use. From a GI standpoint, she reports that her last colonoscopy was greater than 10 years. She denies any prior EGD. She denies any melena, hematochezia, hematemesis, unintentional weight loss, constitutional symptoms, or any other associated symptoms. She denies any family history of colon cancer. Due to her continued shortness of breath and palpitations, she presented to the emergency room for further evaluation. Since her arrival, she has had multiple episodes of PVCs and bigeminy. She is currently on an amiodarone drip. Labs are notable for severe iron deficient anemia, creatinine of 1.11, hemoglobin is 7.7 from baseline 11.4, BNP of 654, and sodium 125 improved to 129. Cardiology was planning to do a left heart catheterization but in the setting of patient's anemia, requested a GI consult prior to proceeding. Assessment Iron deficiency anemia Patient with no overt signs of bleeding. Has not undergone a colonoscopy in the last 10 years however denies any weight loss, change in bowel habits, nor any personal or family history of colon cancer. Denies any melena, hematemesis, or hematochezia. Hemoglobin has (more content not included)...[facility]08-03-2023 NoteOccupational Therapy Occupational Therapy Evaluation Patient Name: Chiara Juares : 1955 Today's Date: 10/29/2022 Time In: 748 Time Out: 809 Chiara Juares is an 67 y.o. female who came from home. She was at cardiac rehab on the and had experienced shortness of breath and dizziness which patient states are usually her only symptoms when she is not feeling well. Patient denied chest pain, palpations, changes in vision, edema, fever, chills. Patient currently without shortness of breath or dizziness. Patient went to [facility] where she was noted to be having frequent PVCs and was having runs of V. tach. Patient states arrhthymias became after cardiac stent in June. Patient follows with [facility] cardiology group. patient was placed on amiodarone infusion and was transferred to [facility] for higher level of care. I discussed with on-call hoeing row boss, who recommended continuation of amiodarone infusion, continue home beta-fernando, echo placed for morning, and they will see patient in the morning. Discussed with hoeing row boss EKG noting frequent PVCs. Patient with sodium of 125, BNP 654, chest x-ray without pleural effusion, creatinine is 1.11. 3 months ago NA was 133. Hemoglobin 7.7 with hemoglobin at outlying facility 8.3. Continue anemia workup. Continue hyponatremia work up Principal Problem: Arrhythmia Active Problems: COPD (chronic obstructive pulmonary disease) ([facility]) General Subjective: friendly and cooperative, reports generalized SOB upon minimal exertion, planned stress today Patient Active Problem List Diagnosis Bladder prolapse, female, acquired Chronic GERD COPD (chronic obstructive pulmonary disease) ([facility]) Coronary artery disease involving [place] coronary artery of [place] heart without angina pectoris Diuretic-induced hypokalemia Essential hypertension Former smoker Health care maintenance History of acute inferior wall ND Lower back pain Mixed hyperlipidemia Severe obesity (BMI 35.0-39.9) with comorbidity ([facility]) Shortness of breath Chest pain Arrhythmia Anemia Hypomagnesemia Hyponatremia Past Medical History: Diagnosis Date Chronic GERD 12/28/2016 Chronic kidney disease COPD (chronic obstructive pulmonary disease) ([facility]) Coronary artery disease Coronary artery disease involving [place] coronary artery of [place] heart without angina pectoris 12/28/2016 Essential hypertension 12/14/2016 Hyperlipidemia Lower back pain 12/28/2016 Mixed hyperlipidemia 12/14/2016 Shortness of breath 12/28/2016 Past Surgical History: Procedure Laterality Date CARDIAC CATHETERIZATION CHOLECYSTECTOMY CORONARY STENT PLACEMENT HYSTERECTOMY Precautions Precautions Medical Precautions: fall risk Pain Pain Assessment Pain Score: 0 - No pain Cognition Cognition Overall Cognitive Status: Within Functional Limits General Assessment General Assessment Hand Dominance: Right Home Living Home Living Type of Home: House Lives With: Spouse Home Adaptive Equipment: Cane ([facility]) Home Layout: Bed/bath upstairs, Other (Comment) (tri level , 4 steps with rail) Home Access: Stairs to enter with rails (4) Bathroom Shower/Tub: Tub/shower unit Prior Level of Function Prior Function Level of [place]: Independent with ADLs and functional transfers, Independent with homemaking with ambulation (drives , can for distance) Prior IADLs IADL History Homemaking Responsibilities: Yes (reports past 3 weeks has been doing less due to sob) Dynamic Sitting Balance Dynamic Sitting Balance Dynamic Sitting Balance-Level of Assistance: Independent Static Standing Balance Static Standing Balance Static Standing-Level of Assistance: Close supervision ADL ADL UE Dressing Assistance: Independent LE Dressing Assistance: Stand by (due to sob) Transfers Transfers Transfer: (in chair upon arrival, SBA:: sit to stand, 10 feet in room , standing three minutes and to sit into chair) Objective General Assessments Activity Tolerance Endurance: Stage II Vision - Basic Assessment Current Vision: No visual deficits Sensation Light Touch: No apparent deficits Coordination Movements are Fluid and Coordinated: Yes Extremity Assessments RUE Assessment RUE Assessment: Within Functional Limits LUE Assessment LUE Assessment: Within Functional Limits Outcome Assessments AM-PAC 6 Clicks Putting on and taking off regular lower body clothing?: A Little (Min Assist/Contact Guard/Supervision) Bathing(Including washing,rinsing,drying)?: A Little (Min Assist/Contact Guard/Supervision) Toileting, which includes using the toilet,bedpan,or urinal?: A Little (Min Assist/Contact Guard/Supervision) Putting on and taking off regular upper body clothing?: None (Independent) Taking care of personal grooming such as brushing teeth?: None (Independent) Eating meals?: None (Independent) Total Score OT (more content not included)...[facility] 10-29-2022 NoteHospital Medicine Daily Progress Note - 10/29/2022 7:48 AM; Room: [facility]- Admission: 10/26/2022 10:28 PM; Length of stay: 3 days THE HOSPITALIST TEAM PREFERS TO USE [employer] FOR COMMUNICATION 7AM-7PM. IF I DO NOT RESPOND WITHIN 15 MINUTES, PLEASE PAGE ME/CALL THROUGH THE SURVEY MANAGER. FROM 7PM-7AM, PLEASE PAGE [phone](COVR) Code Status: Full Code Discharge Destination: home Discharge planning: Pending ischemic work up. EP input pending. Overview Patient is seen for evaluation and management of SOB. Subjective Chiara Brown Juares was seen and examined at bedside. Patient denies CP, SOB at rest, N/V/D/C, fever, chills, or abdominal pain. Was transfused yesterday. Hgb up to 8.9, but now 8.4. DVT ppx being held. Serum sodium downtrending. Lexiscan this AM Physical Exam Visit Vitals BP 107/79 (BP Location: Left arm, Patient Position: Sitting) Pulse 72 Temp 36.3 ???C (97.4 ???F) (Temporal) Resp 19 Intake/Output Summary (Last 24 hours) at 10/29/2022 0748 Last data filed at 10/29/2022 0300 Gross per 24 hour Intake 2525.56 ml Output 1250 ml Net 1275.56 ml Physical Exam Vitals and nursing note reviewed. Constitutional: General: She is not in acute distress. Appearance: Normal appearance. She is obese. She is not ill-appearing. HENT: Head: Normocephalic. Mouth/Throat: Mouth: Mucous membranes are moist. Eyes: Conjunctiva/sclera: Conjunctivae normal. Cardiovascular: Rate and Rhythm: Normal rate and regular rhythm. Pulses: Normal pulses. Heart sounds: Normal heart sounds. No murmur heard. No friction rub. No gallop. Pulmonary: Effort: Pulmonary effort is normal. No respiratory distress. Breath sounds: Normal breath sounds. No wheezing, rhonchi or rales. Abdominal: General: Abdomen is flat. Bowel sounds are normal. There is no distension. Palpations: Abdomen is soft. There is no mass. Tenderness: There is no abdominal tenderness. There is no guarding. Musculoskeletal: General: No swelling, tenderness or deformity. Normal range of motion. Right lower leg: No edema. Left lower leg: No edema. Skin: General: Skin is warm. Capillary Refill: Capillary refill takes less than 2 seconds. Coloration: Skin is not jaundiced. Findings: No erythema, lesion or rash. Neurological: General: No focal deficit present. Mental Status: She is alert and oriented to person, place, and time. Mental status is at baseline. Cranial Nerves: No cranial nerve deficit. Sensory: No sensory deficit. Motor: No weakness. Psychiatric: Mood and Affect: Mood normal. Behavior: Behavior normal. Thought Content: Thought content normal. Judgment: Judgment normal. Estimated body mass index is 36.09 kg/m??? as calculated from the following: Height as of this encounter: 1.613 m (5' 3.5 ). Weight as of this encounter: 93.9 kg (207 lb 0.2 oz). Active Inpatient Problems Principal Problem: Arrhythmia Active Problems: COPD (chronic obstructive pulmonary disease) ([facility]) Coronary artery disease involving [place] coronary artery of [place] heart without angina pectoris Essential hypertension History of acute inferior wall ND Mixed hyperlipidemia Anemia Hypomagnesemia Hyponatremia Assessment and Plan #Cardiac arrhythmia, frequent PVCs #Acute on chronic anemia - Now 8.4, was down into 7s this admission, was in 11s in June when patient started brilinta #Hx of runs of Baby Blendy at [facility] #Hyponatremia, currently asymptomatic. Suspect hypervolemic. Sodium 125 #Hypomagnesia #Essential HTN #CAD s/p stents in June on ASA, brilinta #COPD, stable - Lexiscan this AM. Follow up results. NPO since midnight - DVT ppx held - Follow up nephrology recs regarding hyponatremia. Currently on fluid restriction. Start IV Lasix 40mg - GI recommending 5 days of 200mg venofer. Ferritin 13 - Coreg was Dc'd for patient's preferred toprol. - Amio switched to PO. Follow up cardiology recs. - Transfused 1U PRBCs yesterday d/t hgb <8 in setting of significant CAD. VTE Prophylaxis: Held d/t suspected GI bleeding Scheduled Meds amiodarone, 400 mg, oral, BID with meals aspirin, 81 mg, oral, Daily atorvastatin, 80 mg, oral, Daily diphenhydrAMINE, 25 mg, oral, Nightly fluticasone propion-salmeteroL, 1 puff, inhalation, BID furosemide, 20 mg, oral, Daily [Held by provider] heparin (porcine), 5,000 Units, subcutaneous, BID iron sucrose, 200 mg, intravenous, q24h isosorbide mononitrate ER, 30 mg, oral, Daily losartan, 50 mg, oral, Daily magnesium oxide, 400 mg, oral, BID metoprolol succinate XL, 100 mg, oral, Daily pantoprazole, 40 mg, oral, Daily ticagrelor, 90 mg, oral, BID umeclidinium, 1 puff, inhalation, Daily Pertinent Investigations Hematology: Results from last 7 days Lab Units 10/29/22 0531 10/28/22 1601 10/28/22 0403 WBC AUTO 10*3/uL 6.93 -- 5.58 HEMOGLOBIN g/dL 8.4* 8.9* 7.2* HEMATOCRIT % 25.1* 28.0* 22.4* MCV fL 84.2 -- 83.6 PLATELETS AUTO (more content not included)...[facility] 10-28-2022 NoteHospital Medicine Daily Progress Note - 10/28/2022 5:29 PM; Room: [address] [place] [address] Admission: 10/26/2022 10:28 PM; Length of stay: 2 days THE HOSPITALIST TEAM PREFERS TO USE [employer] CH[employer] FOR COMMUNICATION 7AM-7PM. IF I DO NOT RESPOND WITHIN 15 MINUTES, PLEASE PAGE ME/CALL THROUGH THE SURVEY MANAGER. FROM 7PM-7AM, PLEASE PAGE [phone](COVR) Code Status: Full Code Discharge Destination: home Discharge planning: Pending ischemic work up. EP input pending. Overview Patient is seen for evaluation and management of SOB. Subjective Chiara A Juares was seen and examined at bedside. Patient denies CP, SOB at rest, N/V/D/C, fever, chills, or abdominal pain. Hgb <8, being transfused today. Physical Exam Visit Vitals BP (!) 93/49 (BP Location: Right arm, Patient Position: Lying) Pulse 69 Temp 36.8 ???C (98.3 ???F) (Temporal) Resp 16 Intake/Output Summary (Last 24 hours) at 10/28/2022 1729 Last data filed at 10/28/2022 1600 Gross per 24 hour Intake 4145.56 ml Output 650 ml Net 3495.56 ml Physical Exam Vitals and nursing note reviewed. Constitutional: General: She is not in acute distress. Appearance: Normal appearance. She is obese. She is not ill-appearing. HENT: Head: Normocephalic. Mouth/Throat: Mouth: Mucous membranes are moist. Eyes: Conjunctiva/sclera: Conjunctivae normal. Cardiovascular: Rate and Rhythm: Normal rate and regular rhythm. Pulses: Normal pulses. Heart sounds: Normal heart sounds. No murmur heard. No friction rub. No gallop. Pulmonary: Effort: Pulmonary effort is normal. No respiratory distress. Breath sounds: Normal breath sounds. No wheezing, rhonchi or rales. Abdominal: General: Abdomen is flat. Bowel sounds are normal. There is no distension. Palpations: Abdomen is soft. There is no mass. Tenderness: There is no abdominal tenderness. There is no guarding. Musculoskeletal: General: No swelling, tenderness or deformity. Normal range of motion. Right lower leg: No edema. Left lower leg: No edema. Skin: General: Skin is warm. Capillary Refill: Capillary refill takes less than 2 seconds. Coloration: Skin is not jaundiced. Findings: No erythema, lesion or rash. Neurological: General: No focal deficit present. Mental Status: She is alert and oriented to person, place, and time. Mental status is at baseline. Cranial Nerves: No cranial nerve deficit. Sensory: No sensory deficit. Motor: No weakness. Psychiatric: Mood and Affect: Mood normal. Behavior: Behavior normal. Thought Content: Thought content normal. Judgment: Judgment normal. Estimated body mass index is 36.09 kg/m??? as calculated from the following: Height as of this encounter: 1.613 m (5' 3.5 ). Weight as of this encounter: 93.9 kg (207 lb 0.2 oz). Active Inpatient Problems Principal Problem: Arrhythmia Active Problems: COPD (chronic obstructive pulmonary disease) ([facility]) Coronary artery disease involving [place] coronary artery of [place] heart without angina pectoris Essential hypertension History of acute inferior wall ND Mixed hyperlipidemia Anemia Hypomagnesemia Hyponatremia Assessment and Plan #Cardiac arrhythmia, frequent PVCs #Acute on chronic anemia - down into 7s this admission, was in 11s in June when patient started brilinta #Hx of runs of [employer] at [facility] #Hyponatremia, currently asymptomatic #Hypomagnesia #Essential HTN #CAD s/p stents in June on ASA, brilinta #COPD, stable - Follow up nephrology recs regarding hyponatremia. Currently on fluid restriction. - Cardiology planning stress test tomorrow. NPO at midnight. - GI recommending 5 days of 200mg venofer - Coreg was Dc'd for patient's preferred toprol. - Amio switched to PO. Follow up cardiology recs. - Transfuse 1U PRBCs today d/t hgb <8 in setting of significant CAD. VTE Prophylaxis: Heparin subcutaneous Scheduled Meds amiodarone, 400 mg, oral, BID with meals aspirin, 81 mg, oral, Daily atorvastatin, 80 mg, oral, Daily diphenhydrAMINE, 25 mg, oral, Nightly fluticasone propion-salmeteroL, 1 puff, inhalation, BID furosemide, 20 mg, oral, Daily heparin (porcine), 5,000 Units, subcutaneous, BID iron sucrose, 200 mg, intravenous, q24h isosorbide mononitrate ER, 30 mg, oral, Daily losartan, 50 mg, oral, Daily magnesium oxide, 400 mg, oral, BID metoprolol succinate XL, 100 mg, oral, Daily pantoprazole, 40 mg, oral, Daily ticagrelor, 90 mg, oral, BID umeclidinium, 1 puff, inhalation, Daily sodium chloride, 20 mL/hr, Last Rate: Stopped (10/28/22 1415) Pertinent Investigations Hematology: Results from last 7 days Lab Units 10/28/22 1601 10/28/22 0403 10/27/22 1153 10/27/22 0441 WBC AUTO 10*3/uL -- 5.58 -- 6.23 HEMOGLOBIN g/dL 8.9* 7.2* < > 7.9* HEMATOCRIT % 28.0* 22.4* -- 25.0* MCV fL -- 83.6 -- 84.2 PLATELETS AUTO 10*3/uL -- 307 -- 349 < > = values in this interval not displayed. Chemistry: Results from last 7 days Lab Units (more content not included)...[facility] 10-28-2022 Note Attestation signed by Robbie Kaur MD at 11/11/2022 7:32 PM I personally saw and examined the patient on the same date of service as the fellow. I discussed the findings and therapeutic plan with the fellow. Plan of care was discussed with patient, and patient is agreeable with plan. I agree with the documentation, except for any edits/updates below. Teaching Physician's Revisions: none Robbie Kaur MD [place] [facility] Subjective No acute events overnight. Seen and examined at bedside in the AM. Denies any chest pain, shortness of breath, or dizziness at this point. Tele showed PVCs without evidence of VT or AIVR. Objective Patient Vitals for the past 24 hrs: BP Temp Temp src Pulse Resp SpO2 Weight 10/28/22 1410 (!) 93/49 36.8 ???C (98.3 ???F) 69 16 100 % -- 10/28/22 1120 111/59 36.9 ???C (98.4 ???F) 69 15 99 % -- 10/28/22 1105 126/65 36.8 ???C (98.2 ???F) 68 16 99 % -- 10/28/22 0725 126/73 36.8 ???C (98.3 ???F) 71 17 98 % -- 10/28/22 0646 -- -- -- -- -- -- 93.9 kg (207 lb 0.2 oz) 10/28/22 0010 136/67 -- -- 73 15 98 % -- 10/27/22 2031 136/67 36.9 ???C (98.4 ???F) 69 17 99 % -- 10/27/22 1615 134/75 36.9 ???C (98.5 ???F) -- 73 24 98 % -- Physical Exam Constitutional: General: She is not in acute distress. Appearance: She is not ill-appearing. HENT: Head: Normocephalic and atraumatic. Cardiovascular: Rate and Rhythm: Normal rate and irregular rhythm. Pulmonary: Effort: Pulmonary effort is normal. Abdominal: General: Bowel sounds are normal. Palpations: Abdomen is soft. Tenderness: There is no abdominal tenderness. Musculoskeletal: General: Normal range of motion. Cervical back: Normal range of motion. Right lower leg: Edema (1+) present. Left lower leg: Edema (1+) present. Skin: General: Skin is warm and dry. Neurological: Mental Status: She is alert and oriented to person, place, and time. Psychiatric: Mood and Affect: Mood normal Lab Results Component Value Date NA 126 (L) 10/28/2022 K 3.9 10/28/2022 CL 97 (L) 10/28/2022 ANIONGAP 11 10/28/2022 BUN 22 10/28/2022 CREATININE 1.02 10/28/2022 CALCIUM 8.1 (L) 10/28/2022 MG 1.8 (L) 10/28/2022 Lab Results Component Value Date BILITOT 0.2 (L) 10/26/2022 ALKPHOS 113 (H) 10/26/2022 AST 17 10/26/2022 ALT 11 10/26/2022 PROT 6.4 10/26/2022 ALBUMIN 3.8 10/26/2022 Lab Results Component Value Date WBC 5.58 10/28/2022 RBC 2.68 (L) 10/28/2022 HGB 7.2 (L) 10/28/2022 HCT 22.4 (L) 10/28/2022 MCV 83.6 10/28/2022 MCH 26.9 (L) 10/28/2022 MCHC 32.1 10/28/2022 RDW 13.4 10/28/2022 NEUTOPHILPCT 70.9 10/26/2022 LYMPHOPCT 16.0 (L) 10/26/2022 MONOPCT 9.9 10/26/2022 EOSPCT 2.1 10/26/2022 BASOPCT 0.7 10/26/2022 NEUTROABS 5.72 10/26/2022 LYMPHSABS 1.29 10/26/2022 MONOSABS 0.80 10/26/2022 EOSABS 0.17 10/26/2022 BASOSABS 0.06 10/26/2022 PLT 307 10/28/2022 NRBC 0.0 10/26/2022 Encounter Date: 10/26/22 ECG 12 lead Result Value Ventricular Rate 86 Atrial Rate 86 ME Interval 146 QRS DURATION 84 QT Interval 376 QTC CALCULATION(BAZETT) 449 P [place] 78 R-[place] 52 T Wave [place] 66 Impression Sinus rhythm with frequent Premature ventricular complexes in a pattern of bigeminy Otherwise normal ECG When compared with ECG of 14-JUL-2022 12:01, No significant change was found Confirmed by Piter MATHIAS, TOBIN Curtis ([id number]) on 10/27/2022 12:55:07 PM Cardiac cath 07/14/22 FINAL IMPRESSIONS: 1. Severe, discrete, stenosis of the distal right coronary artery successfully treated by balloon angioplasty and Synergy drug-eluting stent placement 2. Patent stent in the mid right coronary artery with mild in-stent restenosis 3. Mild disease of the left anterior descending and left circumflex coronary arteries 4. Mildly elevated right-sided filling pressures and wedge pressure 5. Normal cardiac output/cardiac index RECOMMENDATIONS: 1. Aspirin 81 mg lifelong 2. Brilinta 90 mg p.o. twice daily for a minimum of 6 months; the patient has an allergy to Plavix. 3. Aggressive cardiovascular factor modification 4. Optimal medical therapy for coronary artery disease including dual antiplatelet therapy, moderate to high intensity statin therapy, a beta-fernando, plus or minus an angiotensin-converting enzyme inhibitor 5. An outpatient echocardiogram will be performed 6. Should the patient's shortness of breath not improve after coronary revascularization, would highly recommend pulmonary function tests and evaluation for pulmonary etiologies for her dyspnea 7. Follow-up with Dr. Azevedo in the next 1 to 2 months 8. Follow-up with her family physician as scheduled PROCEDURES: Ultrasound-guided access to the right internal jugular vein, right heart catheterization (more content not included)...[facility]23 Note Attestation signed by Amara Daugherty MD at 10/28/2022 6:48 PM As the teaching physician, I have personally performed or re-performed the history of present illness, physical exam and medical decision making activities of the encounter and verified the medical student's documentation. I made pertinent changes as necessary to ensure accurate documentation. Nephrology Progress Note Patient : Chiara Juares; 67 y.o. Location: [id number] Attending: Viv Livingston MD Admit Date: 10/26/2022 Hospital Day: 2 Reason for Consult: Hyponatremia and hypomagnesemia . Subjective History of present illness:Chiara Juares is a 67 y.o. female with significant PMHx of ND, CAD, hypertension, hyperlipidemia, and COPD was admitted yesterday for arrhythmias. Patient states she is SOB and dizzy. Dizziness occurs after taking medications, specifically metoprolol. Patient has been wearing a halter monitor which detected multiple episodes of VT and frequent PVCs. Her episodes got worse after cardiac stent in 06/2022. Patient is followed by Dr. Azevedo ([facility] Card[facility]). Nephrology was consulted due to low sodium (125) and magnesium (1.8) levels on work up. Patient does occasionally use alcohol (monthly or less), no hx of alcohol use disorder. Patient is a former smoker. Has has low Na in the past, but not below 130. Interval history: Patient was examined at bedside. She is out of bed, in chair. There has been no significant overnight events. Patient is currently NPO for potential cardiac workup (stress test, cath). Patient states she is tired and has a headache, which she attributes to the lack of sleep. Says her legs feel swollen, but the swelling is consistent with her baseline. Denies any nausea, vomiting, confusion, chest pain, abdominal tenderness, lethargy, numbness, or weakness. Na 126 (130 yesterday, 125 on admission). On fluid restriction. Mg 1.8 unchanged from yesterday. Patient received Mag-ox 400 mg BID, started yesterday. Patient is receiving amiodarone drip premixed in D5W. Received IV Mg in D5W on 10/27/22 AM. Patient was receiving blood for low hemoglobin with IV normal saline. Patient had 5x unmeasured urine frequencies yesterday. Urine output being measured as of today. Input/Output: I/O last 3 completed shifts: In: 3022.8 (32.2 mL/kg) [P.O.:2760; I.V.:262.8 (2.8 mL/kg)] Out: - (0 mL/kg) Weight: 93.9 kg Vital Signs: Temperature: Temp: 36.9 ???C (98.4 ???F) TMax: Temp (24hrs), Av.9 ???C (98.4 ???F), Min:36.8 ???C (98.2 ???F), Max:36.9 ???C (98.5 ???F) Respirations: Resp: 15 Pulse: Heart Rate: 69 BP: BP: 111/59 BP Range: Systolic (24hrs), Av , Min:111 , Max:136 Diastolic (24hrs), Av, Min:59, Max:75 Wt Readings from Last 3 Encounters: 10/28/22 93.9 kg (207 lb 0.2 oz) 08/18/22 93.4 kg (206 lb) 07/08/22 95.3 kg (210 lb) Physical Examination: Physical Exam Constitutional: General: She is awake. She is not in acute distress. Appearance: She is obese. Cardiovascular: Rate and Rhythm: Normal rate and regular rhythm. Heart sounds: Normal heart sounds. Pulmonary: Effort: Pulmonary effort is normal. Breath sounds: Examination of the right-lower field reveals rhonchi. Examination of the left-lower field reveals rhonchi. Rhonchi present. Musculoskeletal: Right lower le+ Edema present. Left lower le+ Edema present. Skin: General: Skin is warm and dry. Neurological: Mental Status: She is alert. Mental status is at baseline. Psychiatric: Attention and Perception: Attention normal. Behavior: Behavior is cooperative. Labs: Chemistry: Lab Results Component Value Date NA 126 (L) 10/28/2022 K 3.9 10/28/2022 CL 97 (L) 10/28/2022 CO2 22 10/28/2022 ANIONGAP 11 10/28/2022 BUN 22 10/28/2022 CREATININE 1.02 10/28/2022 EGFR 59.6 (L) 10/28/2022 CALCIUM 8.1 (L) 10/28/2022 MG 1.8 (L) 10/28/2022 ALBUMIN 3.8 10/26/2022 PROT 6.4 10/26/2022 AST 17 10/26/2022 ALT 11 10/26/2022 BILITOT 0.2 (L) 10/26/2022 ALKPHOS 113 (H) 10/26/2022 Hematology & Iron studies: Lab Results Component Value Date WBC 5.58 10/28/2022 HGB 7.2 (L) 10/28/2022 HCT 22.4 (L) 10/28/2022 MCV 83.6 10/28/2022 PLT 307 10/28/2022 IRON <10 (L) 10/28/2022 TIBC <404 10/28/2022 UIBC 394.0 (H) 10/28/2022 IRONSAT 10/28/2022 Comment: Unable to Calculate FERRITIN 13.0 10/28/2022 Urine chemistry: Lab Results Component Value Date CREATUR 23.0 (L) 10/27/2022 NAUR 41 10/27/2022 Urinalysis & Microscopy: No results found for: COLORU, CLARITYU, SPECGRAVU, LACEY, PROTUR, LEUKOCYTESU, NITRITEU, GLUCOSEU, KETONESU, BILIRUBINUR, UROBILINOGEN, BLOODU, RBCU, WBCU, SQUAMEPIU, MUCUSU, TRIPHOCRYU, CAOXALCRU, CAPHOSCRYU Urine Eosinophils: No components found for: UEOS Sero (more content not included)...[facility]-02-2023 Note10/28/22 1232 Referral Data Referral Source Other (Comment) Activities of Daily Living Assistive Device Cane Living Arrangement (Current/Prior to Hospitalization) Private residence Discharge Planning Support Systems Spouse/significant other Type of Residence/Post Acute Needs Private residence Patient's goal for discharge Patient's goal for discharge is to return home with . Screened via [facility]UC. Patient is from home with . Patient has a cane in the home. No history of HHC/SNF/IPR. Patient anticipates return home when medically ready.[facility]-02-2023 Note10/28/22 1006 Admission Assessment Questions Verify insurance with patient Yes Do you understand medical disease or what brought you into the hospital? Yes Who is your current PCP? Shaikh Ric MD Can I schedule a follow up appointment for you at the time of discharge? No Do you understand why you are taking your current medications? Yes Are you taking your medications as prescribed? Yes Did patient provide teach back? Yes Would you like use our pharmacy [facility] to fill your new medications at the time of Discharge? No Does the patient have a disability case manager assigned to them through their insurance? No Living Arrangement (Current/Prior to Hospitalization) Private residence Does the patient have history of HHC or SNF? No Assistive Device Cane Patient's goal for discharge Discharge home with Was patient reminded that goal for discharge is 11am? Yes Does the patient have transportation at discharge? Yes Type of Residence/Post Acute Needs Private residence Is PT/OT appropriate? No Is PT/OT ordered? No Is SW consult appropriate? No Is SW consult ordered? No Do you understand the benefits of MyChart? Yes Were you able to send link and activate MyChart? MyChart already active [facility]08-01-2023 NoteMag and K+ repleted. Cardiology currently planning cardiac cath tomorrow. Patient to be NPO at midnight.[facility]23 Note Attestation signed by Amara Daugherty MD at 10/27/2022 7:13 PM As the teaching physician, I have personally performed or re-performed the history of present illness, physical exam and medical decision making activities of the encounter and verified the medical student's documentation. I made pertinent changes as necessary to ensure accurate documentation. Nephrology Progress Note Patient : Chiara Juares; 67 y.o. Location: [id number] Attending: Viv Livingston MD Admit Date: 10/26/2022 Hospital Day: 1 Reason for Consult: Hyponatremia and hypomagnesemia History of Present Illness: Chiara Juares is a 67 y.o. female with significant PMHx of ND, CAD, hypertension, hyperlipidemia, and COPD was admitted yesterday for arrhythmias. Patient states she is SOB and dizzy. Dizziness occurs after taking medications, specifically metoprolol. Patient has been wearing a halter monitor which detected multiple episodes of VT and frequent PVCs. Her episodes got worse after cardiac stent in 06/2022. Patient is followed by Dr. Azevedo ([facility] Cardiology). Nephrology was consulted due to low sodium (125) and magnesium (1.8) levels on work up. Patient does occasionally use alcohol (monthly or less), no hx of alcohol use disorder. Patient is a former smoker. Significant renal history/events: Patient was examined at bedside sitting up. Patient is receiving amiodarone dri and furosemide 20mg daily. Patient states she is tired. Patient does get dizzy and SOB on exertion, but denies other neurological symptoms including headache, confusion, stupor, seizure hx. Patient denies any nausea and vomiting. Received infusion of magnesium. Mg was 1.8 mg/dL this morning, previously 1.6 mg/dL. Patient has had 3x unmeasured urine outputs yesterday. Input/Output: I/O last 3 completed shifts: In: 262.8 (2.8 mL/kg) [I.V.:262.8 (2.8 mL/kg)] Out: - (0 mL/kg) Weight: 94.3 kg Vital Signs: Temperature: Temp: 36.5 ???C (97.7 ???F) TMax: Temp (24hrs), Av.7 ???C (98 ???F), Min:36.4 ???C (97.5 ???F), Max:36.9 ???C (98.4 ???F) Respirations: Resp: 17 Pulse: Heart Rate: 68 BP: BP: 94/51 BP Range: Systolic (24hrs), Av , Min:94 , Max:158 Diastolic (24hrs), Av, Min:51, Max:83 Wt Readings from Last 3 Encounters: 10/27/22 94.3 kg (207 lb 14.3 oz) 08/18/22 93.4 kg (206 lb) 07/08/22 95.3 kg (210 lb) Physical Examination: Physical Exam Constitutional: Appearance: She is obese. Cardiovascular: Rate and Rhythm: Normal rate and regular rhythm. Heart sounds: Normal heart sounds. Pulmonary: Effort: Pulmonary effort is normal. Breath sounds: Normal breath sounds. Comments: Normal breath sounds, but patient is fatigued with multiple deep breaths Musculoskeletal: Right lower le+ Edema present. Left lower le+ Edema present. Neurological: Mental Status: She is alert. Mental status is at baseline. Labs: Chemistry: Lab Results Component Value Date NA 130 (L) 10/27/2022 K 4.2 10/27/2022 CL 100 10/27/2022 CO2 22 10/27/2022 ANIONGAP 11 10/27/2022 BUN 20 10/27/2022 CREATININE 0.99 10/27/2022 EGFR 61.7 10/27/2022 CALCIUM 8.8 10/27/2022 MG 1.8 (L) 10/27/2022 ALBUMIN 3.8 10/26/2022 PROT 6.4 10/26/2022 AST 17 10/26/2022 ALT 11 10/26/2022 BILITOT 0.2 (L) 10/26/2022 ALKPHOS 113 (H) 10/26/2022 Hematology & Iron studies: Lab Results Component Value Date WBC 6.23 10/27/2022 HGB 7.6 (L) 10/27/2022 HCT 25.0 (L) 10/27/2022 MCV 84.2 10/27/2022 PLT 349 10/27/2022 Urine chemistry: Lab Results Component Value Date CREATUR 23.0 (L) 10/27/2022 NAUR 41 10/27/2022 Urinalysis & Microscopy: No results found for: COLORU, CLARITYU, SPECGRAVU, LACEY, PROTUR, LEUKOCYTESU, NITRITEU, GLUCOSEU, KETONESU, BILIRUBINUR, UROBILINOGEN, BLOODU, RBCU, WBCU, SQUAMEPIU, MUCUSU, TRIPHOCRYU, CAOXALCRU, CAPHOSCRYU Urine Eosinophils: No components found for: UEOS Serology & Other labs: BNP: Lab Results Component Value Date BNP 654 (H) 10/26/2022 MATHEW: No results found for: MATHEW SPEP: Lab Results Component Value Date PROT 6.4 10/26/2022 UPEP: No components found for: LABPE C3: No results found for: C3 C4: No results found for: C4 MPO ANCA: No components found for: MPO PR3 ANCA: No components found for: PR3 Anti-GBM: No components found for: GBMABIGG Hep BsAg: No results found for: HEPBSAG Hep C AB: No results found for: HEPCAB Outpatient Medications & Allergies: Medication Documentation Review Audit Reviewed by Fermín Vincent RN (Registered Nurse) on 10/26/22 at 2316 Medication Order Taking? Sig Documenting Provider Last Dose Status albuterol 2.5 mg /3 mL (0.083 %) nebulizer solution [id number] INHALE 1 (ONE) vial via NEBULIZER FOUR TIMES DAILY Historical Provider, Active albuterol 9 (more content not included)...[facility] 10-27-2022 NoteClinical Nutrition Assessment Name: Chiara Juares Date: 1955 Date of Visit: 10/27/22 Reason for assessment: high risk poor oral intakes Information obtained from: patient, medical record, and nursing Medical History No chief complaint on file. Past Medical History: Diagnosis Date Chronic GERD 12/28/2016 Chronic kidney disease COPD (chronic obstructive pulmonary disease) ([facility]) Coronary artery disease Coronary artery disease involving [place] coronary artery of [place] heart without angina pectoris 12/28/2016 Essential hypertension 12/14/2016 Hyperlipidemia Lower back pain 12/28/2016 Mixed hyperlipidemia 12/14/2016 Shortness of breath 12/28/2016 Past Surgical History: Procedure Laterality Date CARDIAC CATHETERIZATION CHOLECYSTECTOMY CORONARY STENT PLACEMENT HYSTERECTOMY Current Outpatient Medications Medication Instructions albuterol 2.5 mg /3 mL (0.083 %) nebulizer solution INHALE 1 (ONE) vial via NEBULIZER FOUR TIMES DAILY albuterol 90 mcg/actuation inhaler INHALE 2 PUFFS BY MOUTH EVERY 4 HOURS NEEDED for SHORTNESS OF BREATH aspirin 81 mg EC tablet 1 tablet, oral, Daily atorvastatin (LIPITOR) 80 mg, oral, Daily carvedilol (COREG) 12.5 mg, oral, 2 times daily with meals carvedilol (COREG) 6.25 mg, oral, 2 times daily with meals cyclobenzaprine (FLEXERIL) 10 mg, oral, 3 times daily PRN fluticasone propion-salmeteroL (Advair Diskus) 250-50 mcg/dose diskus inhaler INHALE 1 PUFF BY MOUTH TWICE DAILY; rinse mouth after use furosemide (LASIX) 20 mg, oral, Daily ipratropium (Atrovent) 0.02 % nebulizer solution INHALE 1 (ONE) vial via NEBULIZER FOUR TIMES DAILY isosorbide mononitrate ER (IMDUR) 30 mg, oral, Daily, Do not crush or chew. olmesartan (BENICAR) 40 mg, oral, Daily RT omeprazole (PriLOSEC) [address] capsule take 1 capsule by oral route every day before a meal Spiriva Respimat 2.5 mcg/actuation inhaler INHALE 2 PUFFS BY MOUTH EVERY DAY ticagrelor (BRILINTA) 90 mg, oral, 2 times daily Allergies Allergen Reactions Clopidogrel Hydrochlorothiazide Exfoliative Dermatitis Penicillins Vancomycin Nutrition Problems: Appetite: fair Physical findings: obese Skin Integrity: skin intact Other factors: +1 BLE edema Results from last 7 days Lab Units 10/27/22 0441 10/26/22 2339 GLUCOSE mg/dL 111* 109* BUN mg/dL 20 24 CREATININE mg/dL 0.99 1.11 SODIUM mmol/L 129* 129* 125* POTASSIUM mmol/L 4.2 4.4 MAGNESIUM mg/dL 1.8* 1.6* HEMOGLOBIN g/dL 7.9* 7.7* WBC AUTO 10*3/uL 6.23 8.07 I/O: Intake/Output Summary (Last 24 hours) at 10/27/2022 0950 Last data filed at 10/27/2022 0503 Gross per 24 hour Intake 262.79 ml Output -- Net 262.79 ml Current Medications: aspirin, 81 mg, oral, Daily atorvastatin, 80 mg, oral, Daily carvedilol, 12.5 mg, oral, BID with meals fluticasone propion-salmeteroL, 1 puff, inhalation, BID furosemide, 20 mg, oral, Daily isosorbide mononitrate ER, 30 mg, oral, Daily losartan, 50 mg, oral, Daily pantoprazole, 40 mg, oral, Daily ticagrelor, 90 mg, oral, BID umeclidinium, 1 puff, inhalation, Daily Anthropometrics: Height: 161.3 cm (5' 3.5 ) Weight: 94.3 kg (207 lb 14.3 oz) Body mass index is 36.24 kg/m???. Wt history: wt stable per records. 08/18/22- 93.4 kg 07/08/22- 95.3 kg 01/22/20- 90.3 kg IBW: 54.5 kg Nutrition Assessment: Dietary Orders (From admission, onward) Start Ordered 10/27/22102 Diet NPO Diet effective now Comments: Sips with medications, needs cardiac evaluation for arrhthymias Question Answer Comment Reason for NPO: Other Other Reason: see below 10/27/22 010 Meal Intakes: 50-75% Nutrition Risk: Low Nutrition Recommendations: Resume HH diet as medically feasible. 2L restriction per MD. Hyponatremia. Hypomagnesesmia, 2g Magnesium sulfate IV replaced. Starting on Magnesium oxide BID per nephrology. Reviewed HF diet education. Goals: Nutrition Goals: intake > 75% meals and compliance w/ MNT Zack Triana, [facility]08-01-2023 NoteHospital Medicine History and Physical 10/27/2022 1:09 AM THE HOSPITALIST TEAM PREFERS TO USE [employer] FOR COMMUNICATION 7AM-7PM. IF I DO NOT RESPOND WITHIN 15 MINUTES, PLEASE PAGE ME/CALL THROUGH THE SURVEY MANAGER. FROM 7PM-7AM, PLEASE PAGE [phone](COVR) Chief Complaint Arrhythmia History of Present Illness Chiara Juares is an 67 y.o. female who came from home. She was at cardiac rehab on the and had experienced shortness of breath and dizziness which patient states are usually her only symptoms when she is not feeling well. Patient denied chest pain, palpations, changes in vision, edema, fever, chills. Patient currently without shortness of breath or dizziness. Patient went to [facility] where she was noted to be having frequent PVCs and was having runs of V. tach. Patient states arrhthymias became after cardiac stent in June. Patient follows with [facility] cardiology group. patient was placed on amiodarone infusion and was transferred to [facility] for higher level of care. I discussed with on-call hoeing row boss, who recommended continuation of amiodarone infusion, continue home beta-fernando, echo placed for morning, and they will see patient in the morning. Discussed with hoeing row boss EKG noting frequent PVCs. Patient with sodium of 125, BNP 654, chest x-ray without pleural effusion, creatinine is 1.11. 3 months ago NA was 133. Hemoglobin 7.7 with hemoglobin at outlying facility 8.3. Continue anemia workup. Continue hyponatremia work up. Admit to step down with cardiology and nephrology consults. Review of System and Physical Exam Temp: [36.6 ???C (97.9 ???F)-36.8 ???C (98.2 ???F)] 36.8 ???C (98.2 ???F) Heart Rate: [86-87] 86 Resp: [17-19] 19 BP: (142-158)/(81-83) 142/83 Physical Exam Constitutional: General: She is not in acute distress. Appearance: She is not ill-appearing. HENT: Head: Normocephalic and atraumatic. Nose: Nose normal. Mouth/Throat: Mouth: Mucous membranes are moist. Eyes: Pupils: Pupils are equal, round, and reactive to light. Cardiovascular: Rate and Rhythm: Normal rate and regular rhythm. Pulses: Normal pulses. Comments: Frequent PVCs Pulmonary: Effort: Pulmonary effort is normal. Breath sounds: Normal breath sounds. Abdominal: General: Bowel sounds are normal. Palpations: Abdomen is soft. Tenderness: There is no abdominal tenderness. Musculoskeletal: General: Normal range of motion. Cervical back: Normal range of motion. Right lower leg: Edema (1+) present. Left lower leg: Edema (1+) present. Skin: General: Skin is warm and dry. Neurological: Mental Status: She is alert and oriented to person, place, and time. Sensory: No sensory deficit. Motor: No weakness. Psychiatric: Mood and Affect: Mood normal. Review of Systems Constitutional: Negative for chills and fever. Eyes: Negative for visual disturbance. Respiratory: Positive for shortness of breath (with movement). Negative for wheezing. Cardiovascular: Negative for chest pain, palpitations and leg swelling. Gastrointestinal: Negative for abdominal pain, blood in stool, diarrhea, nausea and vomiting. Genitourinary: Negative for dysuria, hematuria and urgency. Skin: Negative for wound. Neurological: Positive for dizziness (with movement). Negative for syncope and weakness. Psychiatric/Behavioral: Negative for confusion. Problem List Patient Active Problem List Diagnosis Date Noted Anemia 10/27/2022 Hypomagnesemia 10/27/2022 Hyponatremia 10/27/2022 Arrhythmia 10/26/2022 Former smoker 01/22/2020 Health care maintenance 01/22/2020 Diuretic-induced hypokalemia 01/16/2018 History of acute inferior wall ND 01/13/2018 Bladder prolapse, female, acquired 12/28/2016 Chronic GERD 12/28/2016 COPD (chronic obstructive pulmonary disease) ([facility]) 12/28/2016 Coronary artery disease involving [place] coronary artery of [place] heart without angina pectoris 12/28/2016 Lower back pain 12/28/2016 Severe obesity (BMI 35.0-39.9) with comorbidity ([facility]) 12/28/2016 Shortness of breath 12/28/2016 Essential hypertension 12/14/2016 Mixed hyperlipidemia 12/14/2016 Chest pain 07/08/2022 Assessment and Plan #Cardiac arrhythmia, frequent PVCs #Hx of runs of Vtach at [facility] #Hyponatremia, 125, currently asymptomatic #Hypomagnesia #Normocytic anemia, denies active signs of bleeding #Essential HTN #CAD s/p stent in June #COPD, stable - Home medications continued including Coreg - Continued amiodarone infusion - Echo pending - Cardiology consulted - NPO for possible intervention, 2L fluid restriction with Q4hr neuro checks - Hyponatremia work up is pending, appears euvolemic vs hypervolemic, BNP in the 600s pending osmol and urine studies, nephrology consulted, trend sodium, goal increase of 6-8 meq in 24hrs - Replace mag - Monitor for bleeding, continue Brillinta at this time, trend HG, obtain reticulocyte count VTE Prophylaxis: On (more content not included)...[facility]01-10-2023 Evaluation note* Encounter Date Diagnosis Assessment Notes Treatment Notes Treatment Clinical Notes Mar, Chronic kidney disease, stage 3a (ICD-10 - N18.31) Likely from hypertensive nephropathy and h/o NSAID use. Do not have a UA. It is unknown if the patient has hematuria or proteinuria. I will start CKD work-up. I will order UA along with renal ultrasound. I will check protein to creatinine ratio. I will check PTH, calcium and phosphorus. I will check for anemia and iron deficiency I will follow-up with the patient in 4 months Mar, Hypertensive nephropathy (ICD-10 - I12.9) Patient is on ARB, metoprolol and Lasix. Blood pressure is well controlled. He has a patient to follow low-salt diet and to monitor blood pressure at home Mar, Hyperkalemia (ICD-10 - E87.5) Potassium was slightly high at 5.3 mmol/L per last year lab. Advised the patient to stop potassium supplement. I will recheck potassium level next visit Mar, Hyponatremia (ICD-10 - E87.1) Sodium level was slightly low pas per December 2019 . Sodium was 130 mmol/L. 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 Has a patient to follow fluid restriction of 1500 cc daily. Continue Lasix. Avoid thiazide diuretics. I will recheck sodium level next visit [facility] Other History general Narrative - Reported* Type Description Date Medical History CHRONIC OBSTRUCTIVE PULMONARY DI SEASE Medical History HYPERTENSION Medical History GERD Medical History HYPERLIPIDEMIA Medical History HEART ATTACK Surgical History HYSTERECTOMY Surgical History GALL BLADDER Surgical History TUBES TIED Surgical History 2 HEART STENTS Hospitalization History SEE ABOVE [facility] Other History general Narrative - Reported* Type Description Date Medical History CHRONIC OBSTRUCTIVE PULMONARY DI SEASE Medical History HYPERTENSION Medical History GERD Medical History HYPERLIPIDEMIA Medical History HEART ATTACK Medical History V-TACH Surgical History HYSTERECTOMY Surgical History GALL BLADDER Surgical History TUBES TIED Surgical History 2 HEART STENTS Surgical History HEART CATH AND STENT PLACEMENT 07/14/2022 Hospitalization History SEE ABOVE Hospitalization History V-TACH 3 [facility] Other Summary Purpose Family History No Family History Records FoundNo Family History Records FoundNo Family History Records Found Advance Directives No Advanced Directives Records FoundNo Advanced Directives Records FoundNo Advanced Directives Records Found Additional Source Comments REASON FOR VISIT (unrecogniz ed section and content) RENAL CKD 3RENAL 6 month Fol low up INFORMATION SOURCE (unrecogn ized section and content) DATE CREATED AUTHOR 08/07/2022 [facility] DATE CREATED AUTHOR AUTHOR'S ORGANIZ ATION 07/13/2023 [facility] EPIC DATE CREATED AUTHOR AUTHOR'S ORGANIZ ATION 10/16/2023 [facility] FOR RECORDS PERTAINING TO PATIENTS WHO ARE OR HAVE BEEN ENROLLED IN A CHEMICAL DEPENDENCY/SUBSTANCEABUSE PROGRAM, SOME INFORMATION MAY BE OMITTED. This clinical summary was aggregated from multiple sources. Caution should be exercised in using it in the provision of clinical care. This summary normalizes information from multiple sources, and as a consequence, information in this document may materially change the coding, format and clinical context of patient data. In addition, data may be omitted in some cases. CLINICAL DECISIONS SHOULD BE BASED ON THE PRIMARY CLINICAL RECORDS. [employer] provides no warranty or guarantee of the accuracy or completeness of information in this document.
[2023-11-08 10:45] LABS: Hematocrit 28.1 % (36.0-48.0); Hemoglobin 8.7 g/dL (12.0-16.0); Mean Corpuscular Hemoglobin 26.1 pg (26.7-34.0); Mean Corpuscular Volume 84.4 fL (81.0-99.0); Mean Platelet Volume 8.6 fL (9.5-13.5); Platelet Count 401 10^3/uL (150-450); Red Blood Count 3.33 10^6/uL (4.20-5.40); Red Cell Distribution Width 16.4 % (11.0-15.0); White Blood Count 7.3 10^3/uL (4.0-11.0)
[2023-11-08 11:06] LABS: Bilirubin Urine NEGATIVE (NEGATIVE); Blood Urine NEGATIVE (NEGATIVE); Clarity Urine CLEAR (CLEAR); Color Urine YELLOW (YELLOW); Glucose Urine UA NEGATIVE (NEGATIVE); Ketones Urine NEGATIVE (NEGATIVE); Leukocyte Esterase Urine NEGATIVE (NEGATIVE); Nitrite Urine NEGATIVE (NEGATIVE); Protein Urine NEGATIVE (NEG/TRACE); Urobilinogen Urine 0.2 EU/dL (0.2-1.0); pH Urine 7.5 (5.0-9.0)
[2023-11-08 11:32] LABS: Alanine Aminotransferase 26 U/L (14-59); Albumin Globulin Ratio 0.9; Albumin Level 3.4 g/dL (3.4-5.0); Alkaline Phosphatase 81 U/L (46-116); Aspartate Amino Transferase 23 U/L (15-37); BUN Creatinine Ratio 14.3; Bilirubin Total 0.3 mg/dL (0.2-1.0); Calcium 8.7 mg/dL (8.5-10.1); Carbon Dioxide 27.4 mmol/L (21.0-32.0); Chloride 93 mmol/L (98-107); Estimated GFR (African America 45 (>=60); Estimated GFR (Non-African Ame 37 (>=60); Globulin 3.9 g/dL; Glucose 96 mg/dL (74-106); Magnesium 2.2 mg/dL (1.8-2.4); Phosphorus 3.8 mg/dL (2.6-4.7); Potassium 4.4 mmol/L (3.5-5.1); Sodium 128 mmol/L (136-145); Total Protein 7.3 g/dL (6.4-8.2); Uric Acid 5.6 mg/dL (2.6-6.0)
[2023-11-08 11:49] LABS: Creatinine Urine Random 73.41 mg/dL (20.00-300.00); Protein Creatinine Ratio Urine 0.16; Total Protein Urine Random 11.9 mg/dL (<=11.9)
[2023-11-09 10:11] LABS: PTH, Intact 106 pg/mL (15-65)
== END 2023-11-08 10:11 | disposition home or self-care (01) ==
LOC: LAB 10:12
PROVIDERS: PCP Internal Medicine; Visit Provider Internal Medicine Nephrology
DX: I12.9 Hypertensive chronic kidney disease with stage 1 through stage 4 chronic kidney disease, or unspecified chronic kidney disease (principal); N18.32 Chronic kidney disease, stage 3b; E87.5 Hyperkalemia; E87.1 Hypo-osmolality and hyponatremia; E83.42 Hypomagnesemia; E79.0 Hyperuricemia without signs of inflammatory arthritis and tophaceous disease; D64.9 Anemia, unspecified
CPT/HCPCS: 36415; 80053; 81003; 82306; 82570; 83735; 83970; 84100; 84156; 84550; 85027

== ENCOUNTER 2023-11-23 12:13 | Outpatient (OUT) | payer MEDICARE, SELFPAY ==
--- OUTSIDE RECORDS SUMMARY | 2023-11-23 12:18 | XMS_ITS | CCD ---
Author Organization [facility] CliniSynv Care Team Providers Care Manager Drug Safety Name Role Phone Sebastian Guilloryiz Unavailable BAKHOUSSEBASTIANIZ Attending Unavailable BAKHOUS, AZIZ Admitting Unavailable HOUSE, DR CASTILLO Primary Care Unavailable WEST, DR TIMOTHY Chandler Consulting Unavailable SAMSA ., LUIS Consulting Unavailable BAKHOUS, AZIZ Consulting Unavailable SAMSA ., LUIS Consulting Unavailable SAMSA ., LUIS Attending Unavailable SAMSA ., LUIS Admitting Unavailable HOUSE, DR CASTILLO Primary Care Unavailable SAMSA ., LUSI Consulting Unavailable SAMSA ., LUIS Attending Unavailable SAMSA ., LUIS Admitting Unavailable MISC, DR PAREDES Primary Care Unavailable SAMSA ., LUIS Attending Unavailable SAMSA ., LUIS Admitting Unavailable MISC, DR PAREDES Primary Care Unavailable SAMSA ., LUIS Attending Unavailable BURTON, DR TIMOTHY Chandler Consulting Unavailable HOUSE, DR CASTILLO Primary Care Unavailable SAMSA ., LUIS Admitting Unavailable SAMSA ., LUIS Consulting Unavailable HOUSE, DR CASTILLO Admitting Unavailable HOUSE, DR CASTILLO Primary Care Unavailable LASHMEET, DR CASTILLO Consulting Unavailable LASHMEET, DR CASTILLO Attending Unavailable BAKHOUS, AZIZ Consulting Unavailable BAKHOUS, AZIZ Attending Unavailable BAKHOUS, AZIZ Admitting Unavailable HOUSE, DR CASTILLO Primary Care Unavailable [facility], DR HUANG Consulting Unavailable [facility], DR HUANG Attending Unavailable HOUSE, DR CASTILLO [facility] DR [facility] Admitting Unavailable SAMSA ., LUIS [...] RODY Referring Unavailable ALIREZA MCALLISTER Attending Unavailable ED, ABBY Referring Unavailable STEVO, CAMRON Admitting Unavailable Allergies Allergy Classification Reported Allergen(s) Allergy Type Date of Onset Reaction(s) Facility (4 sources) clopidogrel; Translations: [CLOPIDOGREL] Drug Allergy [facility] Repository (4 sources) hydroCHLOROthiazide; Translations: [HYDROCHLOROTHIAZIDE] Drug Allergy rash [facility] Repository (3 sources) Penicillin; Translations: [penicillin] Drug Allergy [facility] Repository (4 sources) Vancomycin; Translations: [VANCOMYCIN] Drug Allergy anaphylaxis [facility] Repository (2 sources) Substance with sulfonamide structure and antibacterial mechanism of action (substance) Drug allergy Unknown [facility] Other (1 source) clopidogrel Drug Allergy [facility] Repository (1 source) hydroCHLOROthiazide Drug Allergy [facility] Repository (1 source) Vancomycin Drug Allergy [facility] Repository (2 sources) Penicillins; Translations: [PENICILLINS] Propensity to adverse reactions to drug (disorder) [facility] Repository (1 source) Sodium Chloride; Translations: [SODIUM CHLORIDE] Drug Allergy [facility] Repository (2 sources) Sulfonamides (Antibiotic); Translations: [SULFA (SULFONAMIDE ANTIBIOTICS)] Propensity to adverse reactions to drug (disorder) Unknown Reaction [facility] Repository Medications Current Medications Medication Drug Class(es) Dates Sig (Normalized) Sig (Original) [id number] 200 actuat albuterol 0.09 mg/actuat metered dose inhaler (3 sources) beta2-Adrenergic Agonist Start: 11-16-2023 take 1 puff(s) by inhalation every four hours Albuterol Sulfate (Ventolin Hfa) 90 mcg/actuation HFA aerosol inhaler Active 2 PUFF INHALATION Every 4 hours November 16, 2023 12:00am take 2 puff(s) by in halation every four hours as needed Ventolin HFA 108 (90 Base) MCG/ACT 2 puf f as needed Inhalation every 4 hrs Active albuterol 0.833 mg/ml / ipratropium bromide 0.167 mg/ml inhalation solution (3 sources) Anticholinergic, beta2-Adrenergic Agonist Start: 11-16-2023 take 1 mL by inhalation every six hours Ipratropium-Albuterol Active 3 ML INHALATION Every 6 hours November 16, 2023 12:00am take 3 mL by inhalat ion every six hours as needed Ipratropium-Albuterol 0.5-2.5 (3) MG/3ML 3 mL as needed Inhalation every 6 hrs Active aspirin 81 mg delayed release oral tablet (3 sources) Platelet Aggregation Inhibitor, Nonsteroidal Anti-inflammatory Drug Start: 11-16-2023 take 81 mg by mouth once daily Aspirin Active 81 MG PO Daily November 16, 2023 12:00am take 1 tablet by rebecca th every twenty-four hours Aspirin Adult Low Dose 81 MG 1 tablet Orally Once a day Active atorvastatin 80 mg oral tablet (3 sources) HMG-CoA Reductase Inhibitor Start: 11-16-2023 take 80 mg by mouth once daily at bedtime Atorvastatin Active 80 MG PO Daily at bedtime November 16, 2023 12:00am take 1 tablet by rebecca th every twenty-four hours Atorvastatin Calcium 80 MG 1 tablet Oral ly Once a day Active Cholecalciferol (1 source) Vitamin D take 1 capsule by mouth once daily Cholecalciferol 25 MCG (1000 UT) 1 capsule Orally Once a day for 90 days Active ferrous sulfate 325 mg oral tablet (1 source) take 1 tablet by mouth every twenty-four hours Ferrous Sulfate 325 (65 Fe) MG 1 tablet Orally ONCE A DAY Active Fluticasone Propion-Salmeterol (3 sources) Corticosteroid, beta2-Adrenergi c Agonist Start: 11-16-19 Fluticasone Propion-Salmeterol (Advair Diskus) 250-50 mcg/dose blister with device Active 1 INH INHALATION Twice daily November 16, 2023 12:00am take 1 puff(s) by inhalation twi ce daily Advair Diskus 250-50 MCG/ACT 1 puff Inhalation Twice a day Active furosemide 20 mg oral tablet (3 sources) Loop Diuretic Start: 11-16-2023 take 20 mg by mouth once daily Furosemide Active 20 MG PO Daily November 16, 2023 12:00am Furosemide 20 MG as directed Orally Once a day Active Furosemide 40 MG 1 1/2 tablet Orally Once a day Active 24 hr isosorbide mononitrate 30 mg extended release oral tablet (2 sources) Nitrate Vasodilator Start: 11-16-2023 take 30 mg by mouth once daily Isosorbide Mononitrate Active 30 MG PO Daily November 16, 2023 12:00am take 1 tablet by rebecca th every twenty-four hours Isosorbide Mononitrate ER 30 MG 1 tablet in the morning Orally Once a day Active Magnesium (1 source) take 1 tablet by mouth twice daily Magnesium 250 MG 1 tablet with a meal Orally TWICE A DAY Active magnesium oxide 400 mg oral tablet (2 sources) Start: 11-16-2023 take 400 mg by mouth twice daily Magnesium Oxide Active 400 MG PO Twice daily November 16, 2023 12:00am take 1 tablet by rebecca th every twelve hours Magnesium Oxide 400 MG 1 TABLET Orally TWICE A DAY Active 24 hr metoprolol succinate 100 mg extended release oral tablet (3 sources) beta-Adrenergic Fernando Start: 11-16-2023 take 100 mg by mouth once daily Metoprolol Succinate Active 100 MG PO Daily November 16, 2023 12:00am take 1 tablet by rebecca th every twelve hours Metoprolol Tartrate 50 MG 1 tablet with food Orally Twice a day Active olmesartan medoxomil 40 mg oral tablet (3 sources) Angiotensin 2 Receptor Fernando Start: 11-16-2023 take 40 mg by mouth once daily Olmesartan Active 40 MG PO Daily November 16, 2023 12:00am take 1 tablet by rebecca th every twenty-four hours Olmesartan Medoxomil 40 MG 1 tablet Orally Once a day Active omeprazole 20 mg delayed release oral capsule (3 sources) Proton Pump Inhibitor Start: 11-16-2023 take 20 mg by mouth once daily Omeprazole Active 20 MG PO Daily November 16, 2023 12:00am take 1 capsule by mouth once ruslan ly Omeprazole 20 MG 1 capsule 30 minutes before morning meal Orally Once a day Active prasugrel 10 mg oral tablet (2 sources) [id number] Platelet Inhibitor Start: 11-16-2023 take 10 mg by mouth once daily Prasugrel Active 10 MG PO Daily November 16, 2023 12:00am take 1 tablet by rebecca th every twenty-four hours Effient 10 MG 1 tablet Orally Once a day Active predniSONE 5 mg oral tablet (1 source) Start: 11-16-2023 take 5 mg by mouth once Prednisone Active 5 MG PO Once November 16, 2023 12:00am Problems Active Problems Problem Classification Problem Date Documented Date Episodic/Chronic Cardiac dysrhythmias (4 sources) Cardiac arrhythmia, unspecified; Translations: [Other specified cardiac arrhythmias] Onset: 10-26-2022 Chronic Chronic kidney disease (8 sources) Chronic kidney disease stage 3A ; Translations: [Chronic kidney disease, stage 3a] Onset: 01-08-2022 11-13-2023 Chronic Chronic obstructive pulmonary disease and bronchiectasis (5 sources) Chronic obstructive pulmonary disease, unspecified; Translations: [COPD UNSPECIFIED] Onset: 01-08-2022 Chronic Coronary atherosclerosis and other heart disease (8 sources) Atherosclerotic heart disease of [place] coronary artery without angina pectoris; Translations: [Unstable angina] Onset: 01-05-2022 Chronic Deficiency and other anemia (4 sources) Anemia, unspecified; Translations: [Anemia, unspecified] Onset: 10-27-2022 Episodic Deficiency and other anemia (1 source) Anemia; Translations: [Anemia, unspecified] 11-13-2023 Episodic Essential hypertension (2 sources) Essential (primary) hypertension; Translations: [Essential (primary) hypertension] Onset: 10-27-2022 Chronic Fluid and electrolyte disorders (12 sources) Hyperkalemia; Translations: [Hypo-osmolality and hyponatremia] Onset: 08-06-2022 Episodic Hypertension with complications and secondary hypertension (13 sources) Hypertensive renal disease; Translations: [Hypertensive chronic kidney disease with stage 1 through stage 4 chronic kidney disease, or unspecified chronic kidney disease] Onset: 01-08-2022 Chronic Nutritional deficiencies (4 sources) Vitamin D deficiency; Translations: [Vitamin D deficiency, unspecified] Chronic Other nutritional; endocrine; and metabolic disorders (2 sources) Hypomagnesemia; Translations: [Hypomagnesemia] 11-13-2023 Chronic Other nutritional; endocrine; and metabolic disorders (2 sources) Hypomagnesemia; 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 Other nutritional; endocrine; and metabolic disorders (2 sources) Hyperuricemia without signs of inflammatory arthritis and tophaceous disease; Translations: [Other abnormal blood chemistry] Episodic Other nutritional; endocrine; and metabolic disorders (1 source) Hyperuricemia; Translations: [Hyperuricemia without signs of inflammatory arthritis and tophaceous disease] 11-13-2023 Episodic Unclassified (1 source) Other ventricular tachycardia; Translations: [Other ventricular tachycardia] Onset: 11-17-2022 Past or Other Problems Problem Classification Problem Date Documented Da te Episodic/Chronic Chronic kidney disease (3 sources) Chronic kidney disease; Translations: [CHRONIC KIDNEY DISEASE STAGE 3A] Onset: 08-06-2022 Nonspecific chest pain (2 sources) Chest pain, unspecified; Translations: [Chest pain, unspecified] Onset: 10-30-2022 Episodic Screening and history of mental health and substance abuse codes (4 sources) Personal history of nicotine dependence; Translations: [PERSONAL HISTORY OF NICOTINE DEPEND] Onset: 01-19-2022 Episodic Unclassified (1 source) Other ventricular tachycardia; Translations: [Other ventricular tachycardia] Onset: 11-17-2022 Results Test Name Value Interpretation Reference Range Facility Erythrocyte distribution wid th Auto (RBC) [Ratio]on 11-08-2023 Erythrocyte distribution width (RBC) [Ratio] 16.4 % High 11.0-15.0 [facility] Estimated glomerular filtrat ion rate (GFR) non- Americanon 11-08-2023 GFR/1.73 sq M.predicted among non-blacks MDRD (S/P/Bld) [Vol rate/Area] 37 mL/min/{1.73_m2} Low >=60 [facility] Globulin Calc (S) [Mass/Vol] on 11-08-2023 Globulin (S) [Mass/Vol] 3.9 g/dL [facility] Hematocrit Auto (Bld) [Volum e fraction]on 11-08-2023 Hematocrit (Bld) [Volume fraction] 28.1 % Low 36.0-48.0 [facility] Hemoglobin [Mass/volume] in Bloodon 11-08-2023 Hemoglobin (Bld) [Mass/Vol] 8.7 g/dL Low 12.0-16.0 [facility] Laboratory - Chemistry and C hemistry - challengeon 11-08-2023 Albumin [Mass/Vol] 3.4 g/dL 3.4-5.0 [facility] ALP [Catalytic activity/Vol] 81 U/L 46-116 [facility] ALT [Catalytic activity/Vol] 26 U/L 14-59 [facility] AST [Catalytic activity/Vol] 23 U/L 15-37 [facility] Bilirubin [Mass/Vol] 0.3 mg/dL 0.2-1.0 [facility] Calcium [Mass/Vol] 8.7 mg/dL 8.5-10.1 [facility] Chloride [Moles/Vol] 93 mmol/L Low 98-107 [facility] CO2 [Moles/Vol] 27.4 mmol/L 21.0-32.0 [facility] Creatinine [Mass/Vol] 1.40 mg/dL High 0.55-1.02 [facility] GFR/1.73 sq M.predicted MDRD (S/P/Bld) [Vol rate/Area] 45 mL/min/{1.73_m2} Low >=60 [facility] Glucose [Mass/Vol] 96 mg/dL 74-106 [facility] Magnesium [Mass/Vol] 2.2 mg/dL 1.8-2.4 [facility] Potassium [Moles/Vol] 4.4 mmol/L 3.5-5.1 [facility] Protein [Mass/Vol] 7.3 g/dL 6.4-8.2 [facility] Sodium [Moles/Vol] 128 mmol/L Low 136-145 [facility] Urate [Mass/Vol] 5.6 mg/dL 2.6-6.0 [facility] Urea nitrogen [Mass/Vol] 20.0 mg/dL High 7.0-18.0 [facility] Urea nitrogen/Creatinine [Mass ratio] 14.3 mg/mg [facility] Bilirubin Ql (U) Negative NEGATIVE [facility] Glucose (U) [Mass/Vol] Negative NEGATIVE [facility] Ketones Ql (U) Negative NEGATIVE [facility] pH (U) 7.5 [pH] 5.0-9.0 [facility] Specific gravity (U) [Rel density] 1.010 1.005-1.025 [facility] Urobilinogen Qn (U) 0.2 {Chuy'U}/dL 0.2-1.0 [facility] Laboratory - Specimen inform ationon 11-08-2023 Appearance (U) CLEAR CLEAR [facility] Color (U) YELLOW YELLOW [facility] Laboratory - Urinalysison Leukocyte esterase Test strip Ql (U) Negative NEGATIVE [facility] Nitrite Ql (U) Negative NEGATIVE [facility] Protein (U) [Mass/Vol] 11.9 mg/dL <=11.9 [facility] Protein Ql (U) Negative NEG/TRACE [facility] Leukocytes [#/volume] correc maryuri for nucleated erythrocytes in Blood by Automated counon 11-08-2023 WBC corrected for nucl RBC Auto (Bld) [#/Vol] 7.3 10 3/uL 4.0-11.0 [facility] MCH Auto (RBC) [Entitic mass ]on 11-08-2023 MCH (RBC) [Entitic mass] 26.1 pg Low 26.7-34.0 [facility] MCHC Auto (RBC) [Mass/Vol]on 11-08-2023 MCHC (RBC) [Mass/Vol] 31.0 g/dL 29.9-35.2 [facility] MCV Auto (RBC) [Entitic vol] on 11-08-2023 MCV (RBC) [Entitic vol] 84.4 fL 81.0-99.0 [facility] No Panel Informationon 11-07 25-Hydroxy Vitamin D Total 32.6 ng/mL [facility] Comment on above: <20 ng/mL Vit D defi cient20-<30 ng/mL Vit D [id number] ng/mL Vit D sufficient>100 ng/mL Potential Toxicity Parathyroid Hormone (Intact) 106 pg/mL Abnormal 15-65 [facility] Comment on above: Performed at: [address] [id number] Director: True Herron PhD, Phone: [phone] Phosphorus Level 3.8 mg/dL 2.6-4.7 [facility] Urine Occult Blood Negative NEGATIVE [facility] Urine Random Creatinine 73.41 mg/dL 20.00-300.00 [facility] Platelet mean volume Auto (B ld) [Entitic vol]on 11-08-2023 Platelet mean volume (Bld) [Entitic vol] 8.6 fL Low 9.5-13.5 [facility] Platelets Auto (Bld) [#/Vol] on 11-08-2023 Platelets (Bld) [#/Vol] 401 10 3/uL 150-450 [facility] RBC Auto (Bld) [#/Vol]on RBC (Bld) [#/Vol] 3.33 10 6/uL Low 4.20-5.40 [facility] Serum or plasma albumin/glob ulin mass ratioon 11-08-2023 Albumin/Globulin [Mass ratio] 0.9 {ratio} [facility] Serum or plasma anion gap de terminationon 11-08-2023 Anion gap [Moles/Vol] 12.0 mmol/L [facility] Urine protein/creatinine rat ioon 11-08-2023 Protein/Creatinine (U) [Ratio] 0.16 [facility] Follow-Upon 10-12-2023 Follow-Up [id number] Susana Juares 1955 F Date Provider Department Center 10/12/2023 XANDER FARLEY Family History Problem Relation Age of Onset Stroke Mother Kidney disease Father Coronary artery disease Paternal Grandfather Family Status - Relation Status Age at Mother Father Paternal Grandfather Level of Service:[id number] [place] OFFICE/OUTPATIENT ESTABLISHED MOD MDM 30 MIN Normal [facility] Office Visiton 06-29-2023 Follow-up visit [id number] Susana Juares 1955 F Date Provider Department Center 06/29/2023 XANDER FARLEY Family History Problem Relation Age of Onset Stroke Mother Kidney disease Father Coronary artery disease Paternal Grandfather Family Status - Relation Status Age at Mother Father Paternal Grandfather Level of Service:[id number] [place] OFFICE/OUTPATIENT ESTABLISHED LOW MDM 20 MIN Reason for Visit and Comments: Follow-up [[id number]] - Holter monitor results Normal [facility] Office Visiton 03-02-2023 Follow-up visit [id number] Susana Juares 1955 Date Provider Department Center 03/02/2023 Lonny-HUAXANDER JUSTIN Garcia Family History Problem Relation Age of Onset Stroke Mother Kidney disease Father Coronary artery disease Paternal Grandfather Family Status - Relation Status Age at Mother Father Paternal Grandfather Level of Service:[id number] [place] OFFICE/OUTPATIENT NEW MODERATE MDM 45-59 MINUTES Normal [facility] Office Visiton 12-28-2022 Follow-up visit [id number] Susana Juares 1955 Date Provider Department Center 12/28/2022 Caleb-CHRIS POTTS JUSTIN Garcia Family History Problem Relation Age of Onset Stroke Mother Kidney disease Father Coronary artery disease Paternal Grandfather Family Status - Relation Status Age at Mother Father Paternal Grandfather Level of Service:[id number] [place] OFFICE/OUTPATIENT ESTABLISHED MOD MDM 30-39 MIN Normal [facility] Office Visiton 11-17-2022 Follow-up visit [id number] Susana Juares 1955 Date Provider Department Center 11/17/2022 120-MICHAEL KRAUSE JUSTIN Garcia Family History Problem Relation Age of Onset Stroke Mother Kidney disease Father Coronary artery disease Paternal Grandfather Family Status - Relation Status Age at Mother Father Paternal Grandfather Level of Service:[id number] [place] OFFICE/OUTPATIENT ESTABLISHED MOD MDM 30-39 MIN Reason for Visit and Comments: Follow-up [[id number]] Normal [facility] 36on 11-04-2022 36 Contacted patient regarding scheduling of an EGD/CLN ast part of her [facility] hospital follow up, work up for anemia. Patient states she does not need this done continued to speak with her and she still insists then that she is not going to do it. Normal [facility] Telephoneon 11-04-2022 Telephone [id number] Susana Juares 1955 F Date Provider Department Center 11/04/2022 [facility] Family History Problem Relation Age of Onset Stroke Mother Kidney disease Father Coronary artery disease Paternal Grandfather Family Status - Relation Status Age at Mother Father Paternal Grandfather Normal [facility] 30on 10-31-2022 Problem: Respiratory - Adult Goal: Achieves optimal [...] and behaviors that affect risk of falls [place] fall precautions as indicated by assessment Educate [...] function Outcome (more content not included)... Normal [facility] 30 The patient is Moderately Stable - Low risk of patient condition declining or worsening The patient's goals for the shift include comfort The clinical goals for the shift include safety Normal [facility] BASIC METABOLIC PANELon 08-0 Anion gap [Moles/Vol] 11 mmol/L Normal 7-20 [facility] Comment on above: Performed By: #### L [id number] #### [facility] ([facility]) [address] [place] [address] Calcium [Mass/Vol] 8.5 mg/dL Low 8.6-10.3 [facility] Comment on above: Performed By: #### L [id number] #### [facility] [address] [place] [address] Chloride [Moles/Vol] 98 mmol/L Normal 98-107 [facility] Comment on above: Performed By: #### L [id number] #### [facility] ([facility]) [address] [place] [address] CO2 [Moles/Vol] 23 mmol/L Normal 21-31 [place] Comment on above: Performed By: #### L [id number] #### [facility] ([facility]) [address] [place] [address] Creatinine [Mass/Vol] 1.07 mg/dL Normal 0.60-1.20 [facility] Comment on above: Performed By: #### L [id number] #### [facility] ([facility]) [address] [place] [address] GLOMERULAR FILTRATION RATE ML/MIN/1.73 SQ M.PREDICTED 56.2 mL/min/1.73m*2 Low >60.0 [facility] Comment on above: Result Comment: The [facility]???s estimated glomerular filtration rate (eGFR) will [...] individuals. Performed By: #### L [id number] #### [facility] [address] [place] [address] Glucose [Mass/Vol] 98 mg/dL Normal 70-100 [facility] Comment on above: Performed By: #### L [id number] #### [facility] ([facility]) [address] [place] [address] Potassium [Moles/Vol] 3.8 mmol/L Normal 3.5-5.1 [facility] Comment on above: Performed By: #### L [id number] #### [facility] ([facility]) [address] [place] [address] Sodium [Moles/Vol] 128 mmol/L Low 136-145 [facility] Comment on above: Performed By: #### L [id number] #### [facility] ([facility]) [address] [place] [address] Urea nitrogen [Mass/Vol] 18 mg/dL Normal 7-25 [facility] Comment on above: Performed By: #### L [id number] #### [facility] [address] [place] [address] UREA NITROGEN/CREATININE (MASS RATIO) IN SER/PLAS 16.8 Normal [facility] Comment on above: Performed By: #### L [id number] #### [facility] [address] [place] [address] CBCon 10-31-2022 Erythrocyte distribution width (RBC) [Ratio] 14.6 % Normal 11.5-15.0 [facility] Comment on above: Performed By: #### L [id number] #### [facility] [address] [place] [address] ERYTHROCYTE MEAN CORPUSCULAR HEMOGLOBIN CONCENTRATION (G/DL) BY AUTOMATED 33.5 g/dL Normal 32.0-35.0 [facility] Comment on above: Performed By: #### L [id number] #### [facility] [address] [place] [address] Hematocrit (Bld) [Volume fraction] 24.2 % Low 36.0-48.0 [facility] Comment on above: Performed By: #### L [id number] #### [facility] ([facility]) [address] [place] [address] Hemoglobin (Bld) [Mass/Vol] 8.1 g/dL Low 12.0-15.0 [facility] Comment on above: Performed By: #### L [id number] #### [facility] [address] [place] [address] MCH (RBC) [Entitic mass] 28.1 pg Normal 27.0-33.0 [facility] Comment on above: Performed By: #### L [id number] #### [facility] ([facility]) [address] [place] [address] MCV (RBC) [Entitic vol] 84.0 fL Normal 82.0-98.0 [facility] Comment on above: Performed By: #### L [id number] #### [facility] ([facility]) [address] [place] [address] PLATELETS (10*3/UL) IN BLOOD AUTOMATED COUNT 317 10*3/uL Normal 150-400 [facility] Comment on above: Performed By: #### L [id number] #### [facility] ([facility]) [address] [place] [address] RBC (Bld) [#/Vol] 2.88 10*6/uL Low 3.80-5.00 [facility] Comment on above: Performed By: #### L [id number] #### [facility] ([facility]) [address] [place] [address] WBC (Bld) [#/Vol] 7.49 10*3/uL Normal 4.00-10.60 [facility] Comment on above: Performed By: #### L [id number] #### [facility] ([facility]) [address] [place] [address] MAGNESIUMon 10-31-2022 Magnesium [Mass/Vol] 1.8 mg/dL Low 1.9-2.7 [facility] Comment on above: Performed By: #### L [id number] ####[facility] [place] [address] 30on 10-30-2022 30 Daily Case Managemen t Update Multidisciplinary rounds have been completed. Barriers to Discharge: Right heart cath and coronary angiography today. Fluid restriction changed from 2L to 1.2L for hyponatremia. Hgb 8.4, unchanged from yesterday. Continue IV iron. Plan for outpatient cardiac rehab at time of discharge. Diet: Dietary Orders (From admission, onward) Start Ordered 10/30/22 0010 Diet NPO Diet effective now Comments: Sips with medications 10/30/22 001 Physician Expected Discharge Date: 11/01/2022 Discharge Delays: [...] Question: Reason for OT? Answer: debility 10/28/22 1733 Normal [facility] 30 Problem: Respiratory - Adult Goal: [...] and behaviors that affect risk of falls [place] fall precautions as indicated by assessment Educate [...] of urinary retention Outcome: Progressing Flowsheets (Taken 10/30/2022723) Absence of urinary retention: Assess patient???s ability to void and empty bladder Monitor intake/output and perform bladder scan as needed Problem: Infection - Adult Goal: Absence of infection at discharge Outcome: Progressing Flowsheets (more content not included)... Normal [facility] 30 The patient is Moderately Stable - Low risk of patient condition declining or worsening The patient's goals for the shift include rest/sleep The clinical goals for the shift include VSS Pt had stress test- had chest pain relieved by NTG after. Freq PVCs cont-SOB with exertion. To have heart cath 10/30. Normal [facility] BASIC METABOLIC PANELon 08-0 Anion gap [Moles/Vol] 11 mmol/L Normal 7- [facility] Comment on above: Performed By: #### L [id number] #### [facility] ([facility]) [address] [place] [address] Calcium [Mass/Vol] 8.7 mg/dL Normal 8.6-10.3 [facility] Comment on above: Performed By: #### L [id number] #### [facility] ([facility]) [address] [place] [address] Chloride [Moles/Vol] 95 mmol/L Low 98-107 [facility] Comment on above: Performed By: #### L [id number] #### [facility] ([facility]) [address] [place] [address] CO2 [Moles/Vol] 23 mmol/L Normal 21-31 [place] Comment on above: Performed By: #### L [id number] #### [facility] ([facility]) [address] [place] [address] Creatinine [Mass/Vol] 0.98 mg/dL Normal 0.60-1.20 [facility] Comment on above: Performed By: #### L [id number] #### [facility] ([facility]) [address] [address] GLOMERULAR FILTRATION RATE ML/MIN/1.73 SQ M.PREDICTED 62.5 mL/min/1.73m*2 Normal >60.0 [facility] Comment on above: Result Comment: The [facility]???s estimated glomerular filtration rate (eGFR) will [...] individuals. Performed By: #### L [id number] #### [facility] ([facility]) [address] [place] [address] Glucose [Mass/Vol] 93 mg/dL Normal 70-100 [facility] Comment on above: Performed By: #### L [id number] #### [facility] ([facility]) [address] [place] [address] Potassium [Moles/Vol] 3.9 mmol/L Normal 3.5-5.1 [facility] Comment on above: Performed By: #### L [id number] #### [facility] ([facility]) [address] [facility] [address] Sodium [Moles/Vol] 125 mmol/L Low 136-145 [facility] Comment on above: Performed By: #### L [id number] #### [facility] ([facility]) [address] [place] [address] Urea nitrogen [Mass/Vol] 18 mg/dL Normal 7-25 [facility] Comment on above: Performed By: #### L [id number] #### [facility] [address] [place] [address] UREA NITROGEN/CREATININE (MASS RATIO) IN SER/PLAS 18.4 Normal [facility] Comment on above: Performed By: #### L [id number] #### [facility] [address] [place] [address] CBCon 10-30-2022 Erythrocyte distribution width (RBC) [Ratio] 14.4 % Normal 11.5-15.0 [facility] Comment on above: Performed By: #### L [id number] ####[facility] [place] [address] ERYTHROCYTE MEAN CORPUSCULAR HEMOGLOBIN CONCENTRATION (G/DL) BY AUTOMATED 33.9 g/dL Normal 32.0-35.0 [facility] Comment on above: Performed By: #### L [id number] ####[facility] [place] [address] Hematocrit (Bld) [Volume fraction] 24.8 % Low 36.0-48.0 [facility] Comment on above: Performed By: #### L [id number] ####[facility] [place] [address] Hemoglobin (Bld) [Mass/Vol] 8.4 g/dL Low 12.0-15.0 [facility] Comment on above: Performed By: #### L [id number] ####[facility] [place] [address] MCH (RBC) [Entitic mass] 28.1 pg Normal 27.0-33.0 [facility] Comment on above: Performed By: #### L [id number] ####[facility] ([facility])[address] [place] [address] MCV (RBC) [Entitic vol] 82.9 fL Normal 82.0-98.0 [facility] Comment on above: Performed By: #### L [id number] ####[facility] ([facility])[address] [place] [address] PLATELETS (10*3/UL) IN BLOOD AUTOMATED COUNT 289 10*3/uL Normal 150-400 [facility] Comment on above: Performed By: #### L [id number] ####[facility] ([facility])[address] [place] [address] RBC (Bld) [#/Vol] 2.99 10*6/uL Low 3.80-5.00 [facility] Comment on above: Performed By: #### L [id number] ####[facility] ([facility])[address] [place] [address] WBC (Bld) [#/Vol] 5.62 10*3/uL Normal 4.00-10.60 [facility] Comment on above: Performed By: #### L [id number] ####[facility] ([facility])[address] [place] [address] HPon 10-30-2022 HP -- Attestation signed by Robbie Kaur MD at [...] Proceed with RHC and coronary angiography today. [facility] NURSNOTEon 10-30-2022 NURSNOTE Right jugular cath site bleeding at 1700 - credit underwriter RN held firm pressure for 5 minutes and pressure dressing applied. Rechecked after 15 minutes and site still bleeding. laborer salvage RN was called and sent physician to bedside to evaluate. Hemostasis achieved and MD placed surgicel, gauze, and tegaderm to right jugular site. VS stable. [facility] 30on 10-29-2022 30 Daily Case Managemen t [...] Question: Reason for OT? Answer: debility 10/28/22 1733 Normal [facility] 30 Problem: Respiratory - Adult Goal: Achieves optimal ventilation and oxygenation Outcome: Progressing Flowsheets (Taken 10/29/2022724) Achieves optimal ventilation and oxygenation: Assess for [...] and behaviors that affect risk of falls [place] fall precautions as indicated by assessment Educate [...] within nor (more content not included)... Normal [facility] 30 The patient is Moderately Stable [...] or at baseline Outcome: Not Progressing Normal [facility] BASIC METABOLIC PANELon 08-0 Anion gap [Moles/Vol] 9 mmol/L Normal -20 [facility] Comment on above: Performed By: #### L [id number] #### [facility] [address] [place] [address] Calcium [Mass/Vol] 8.5 mg/dL Low 8.6-10.3 [facility] Comment on above: Performed By: #### L [id number] #### [facility] ([facility]) [address] [place] [address] Chloride [Moles/Vol] 95 mmol/L Low 98-107 [facility] Comment on above: Performed By: #### L [id number] #### [facility] ([facility]) [address] [place] [address] CO2 [Moles/Vol] 25 mmol/L Normal 21- [place] Comment on above: Performed By: #### L [id number] #### [facility] ([facility]) [address] [place] [address] Creatinine [Mass/Vol] 0.99 mg/dL Normal 0.60-1.20 [facility] Comment on above: Performed By: #### L [id number] #### [facility] ([facility]) [address] [place] [address] GLOMERULAR FILTRATION RATE ML/MIN/1.73 SQ M.PREDICTED 61.7 mL/min/1.73m*2 Normal >60.0 [facility] Comment on above: Result Comment: The [facility]???s estimated glomerular filtration rate (eGFR) will [...] individuals. Performed By: #### L [id number] #### [facility] ([facility]) [address] [facility] [place] [address] Glucose [Mass/Vol] 98 mg/dL Normal 70-100 [facility] Comment on above: Performed By: #### L [id number] #### [facility] ([facility]) [address] [facility] [place] [address] Potassium [Moles/Vol] 4.2 mmol/L Normal 3.5-5.1 [facility] Comment on above: Performed By: #### L [id number] #### [facility] ([facility]) [address] [place] [address] Sodium [Moles/Vol] 125 mmol/L Low 136-145 [facility] Comment on above: Performed By: #### L [id number] #### [facility] ([facility]) [address] [place] [address] Urea nitrogen [Mass/Vol] 19 mg/dL Normal 7-25 [facility] Comment on above: Performed By: #### L [id number] #### [facility] ([facility]) [address] [place] [address] UREA NITROGEN/CREATININE (MASS RATIO) IN SER/PLAS 19.2 Normal [facility] Comment on above: Performed By: #### L [id number] #### [facility] ([facility]) [address] [place] [place] [address] CBCon 10-29-2022 Erythrocyte distribution width (RBC) [Ratio] 14.3 % Normal 11.5-15.0 [facility] Comment on above: Performed By: #### L [id number] ####[facility] [place] [address] ERYTHROCYTE MEAN CORPUSCULAR HEMOGLOBIN CONCENTRATION (G/DL) BY AUTOMATED 33.5 g/dL Normal 32.0-35.0 [facility] Comment on above: Performed By: #### L [id number] ####[facility] [place] [address] Hematocrit (Bld) [Volume fraction] 25.1 % Low 36.0-48.0 [facility] Comment on above: Performed By: #### L [id number] ####[facility] ([facility])[address] [place] [address] Hemoglobin (Bld) [Mass/Vol] 8.4 g/dL Low 12.0-15.0 [facility] Comment on above: Performed By: #### L [id number] ####[facility] ([facility])[address] [place] [address] MCH (RBC) [Entitic mass] 28.2 pg Normal 27.0-33.0 [facility] Comment on above: Performed By: #### L [id number] ####[facility] ([facility])[address] [place] [address] MCV (RBC) [Entitic vol] 84.2 fL Normal 82.0-98.0 [facility] Comment on above: Performed By: #### L [id number] ####[facility] ([facility])[address] [place] [address] PLATELETS (10*3/UL) IN BLOOD AUTOMATED COUNT 305 10*3/uL Normal 150-400 [facility] Comment on above: Performed By: #### L [id number] ####[facility] [place] [address] RBC (Bld) [#/Vol] 2.98 10*6/uL Low 3.80-5.00 [facility] Comment on above: Performed By: #### L [id number] ####[facility] [place] [address] WBC (Bld) [#/Vol] 6.93 10*3/uL Normal 4.00-10.60 [facility] Comment on above: Performed By: #### L [id number] ####[facility] ([facility])[address] [place] [address] MAGNESIUMon 10-29-2022 Magnesium [Mass/Vol] 1.9 mg/dL Normal 1.9-2.7 [facility] Comment on above: Performed By: #### L [id number] ####[facility] ([facility])[address] [place] [address] OSMOLALITYon 10-29-2022 OSMOLALITY MEASURED 264 mOsm/kg Low 285-305 [facility] Comment on above: Performed By: #### L [id number] ####[facility] ([facility])[address] [place] [address] OSMOLALITY, URINEon 10-30-19 23 OSMOLALITY URINE 396 mOsm/kg Normal 50-1400 [facility] Comment on above: Performed By: #### L [id number] ####[facility] ([facility])[address] [place] [address] SODIUM, URINE, RANDOMon Sodium (U) [Moles/Vol] 48 mmol/L Normal [facility] Comment on above: Performed By: #### L [id number] ####[facility] ([facility])[address] [place] [address] 30on 10-28-2022 30 Problem: Respiratory - Adult Goal: Achieves optimal ventilation and oxygenation Outcome: Progressing Flowsheets (Taken 10/28/2022 0725) Achieves optimal ventilation and oxygenation: Assess for changes in respiratory status Assess for changes in mentation and behavior Position to facilitate oxygenation and minimize respiratory effort Oxygen supplementation based on oxygen saturation or arterial blood gases Problem: Cardiovascular - Adult Goal: Maintains optimal cardiac output and hemodynamic stability Outcome: Progressing Flowsheets (Taken 10/28/2022 0725) Maintains optimal cardiac output and hemodynamic stability: [...] and behaviors that affect risk of falls [place] fall precautions as indicated by assessment Educate [...] baseline bowel function Outcome: Progressing Flowsheets (Taken 10/28/2022724) Maintains or returns to baseline bowel function: Assess bowel function Encourage oral fluids to ensure adequate hydration Encourage mobilization and activity Problem: Genitourinary - Adult Goal: Absence (more content not included)... Normal [facility] 30 The patient is Moderately Unstable [...] or at baseline Outcome: Not Progressing Normal [facility] BASIC METABOLIC PANELon 08-0 Anion gap [Moles/Vol] 11 mmol/L Normal 7-20 [facility] Comment on above: Performed By: #### L [id number] #### [facility] ([facility]) [address] [place] [address] Calcium [Mass/Vol] 8.1 mg/dL Low 8.6-10.3 [facility] Comment on above: Performed By: #### L [id number] #### [facility] ([facility]) [address] [place] [address] Chloride [Moles/Vol] 97 mmol/L Low 98-107 [facility] Comment on above: Performed By: #### L [id number] #### [facility] ([facility]) [address] [place] [address] CO2 [Moles/Vol] 22 mmol/L Normal 21-31 [place] Comment on above: Performed By: #### L [id number] #### [facility]) [address] [address] [address] Creatinine [Mass/Vol] 1.02 mg/dL Normal 0.60-1.20 [facility] Comment on above: Performed By: #### L [id number] #### [facility] ([facility]) [address] [place] [address] GLOMERULAR FILTRATION RATE ML/MIN/1.73 SQ M.PREDICTED 59.6 mL/min/1.73m*2 Low >60.0 [facility] Comment on above: Result Comment: The [facility]???s estimated glomerular filtration rate (eGFR) will [...] individuals. Performed By: #### L [id number] #### [facility] ([facility]) [address] [place] [address] Glucose [Mass/Vol] 104 mg/dL High 70-100 [facility] Comment on above: Performed By: #### L [id number] #### [facility]) [address] [place] [address] Potassium [Moles/Vol] 3.9 mmol/L Normal 3.5-5.1 [facility] Comment on above: Performed By: #### L [id number] #### [facility] [address] [place] [address] Sodium [Moles/Vol] 126 mmol/L Low 136-145 [facility] Comment on above: Performed By: #### L [id number] #### [facility] [address] [place] [address] Urea nitrogen [Mass/Vol] 22 mg/dL Normal 7-25 [facility] Comment on above: Performed By: #### L [id number] #### [facility] ([facility]) [address] [place] [address] UREA NITROGEN/CREATININE (MASS RATIO) IN SER/PLAS 21.6 Normal [facility] Comment on above: Performed By: #### L [id number] #### [facility] ([facility]) [address] [place] [address] CBCon 10-28-2022 Erythrocyte distribution width (RBC) [Ratio] 13.4 % Normal 11.5-15.0 [facility] Comment on above: Performed By: #### L [id number] ####[facility] ([facility])[address] [place] [address] ERYTHROCYTE MEAN CORPUSCULAR HEMOGLOBIN CONCENTRATION (G/DL) BY AUTOMATED 32.1 g/dL Normal 32.0-35.0 [facility] Comment on above: Performed By: #### L [id number] ####[facility] ([facility])[address] [place] [address] Hematocrit (Bld) [Volume fraction] 22.4 % Low 36.0-48.0 [facility] Comment on above: Performed By: #### L [id number] ####[facility] [place] [address] Hemoglobin (Bld) [Mass/Vol] 7.2 g/dL Low 12.0-15.0 [facility] Comment on above: Performed By: #### L [id number] ####[facility] ([facility])[address] [place] [address] MCH (RBC) [Entitic mass] 26.9 pg Low 27.0-33.0 [facility] Comment on above: Performed By: #### L [id number] ####[facility] ([facility])[address] [place] [address] MCV (RBC) [Entitic vol] 83.6 fL Normal 82.0-98.0 [facility] Comment on above: Performed By: #### L [id number] ####[facility] ([facility])[address] [place] [address] PLATELETS (10*3/UL) IN BLOOD AUTOMATED COUNT 307 10*3/uL Normal 150-400 [facility] Comment on above: Performed By: #### L [id number] ####[facility] ([facility])[address] [place] [address] RBC (Bld) [#/Vol] 2.68 10*6/uL Low 3.80-5.00 [facility] Comment on above: Performed By: #### L [id number] ####[facility] ([facility])[address] [place] [address] WBC (Bld) [#/Vol] 5.58 10*3/uL Normal 4.00-10.60 [facility] Comment on above: Performed By: #### L [id number] ####[facility] ([facility])[address] [place] [address] CONSULTon 10-28-2022 CONSULT -- Attestation signed by Lacie Khalil MD at 10/28/2022 3:59 PM I personally saw and examined the patient on the same date of service as fellow. I discussed the findings and therapeutic plan with the fellow. I agree with the documentation, except for any edits/updates below. Initial Gastroenterology/Hepat ology Consultation Note IDENTIFYING DATA PATIENT: Susana Juares ADMIT DATE: 10/26/2022 TIME OF EVALUATION: 10/28/2022 1:23 PM Reason for Consult: worsening anemia since starting plavix/asa Admitting Physician: Viv Livingston MD HISTORY OF PRESENT ILLNESS Susana Juares is a 67 y.o. female with [...] kidney disease COPD (chronic obstructive pulmonary disease) ([facility]) Coronary artery disease Coronary artery disease involving [place] coronary artery of [place]one heart without angina pectoris 12/28/2016 Essential hypertension [...] and with evening meal. 07/08/22 07/08/23 Abby Ward MD carvedilol (Coreg) 6.25 mg tablet Take 1 tablet (6.25 mg) by mouth with breakfast and with evening meal. Patient not taking: Reported on 10/26/2022 09/16/22 09/16/23 Abby Ward MD cyclobenzaprine (Flexeril) 10 mg tablet Take 10 mg by mouth if needed in the morning, at noon, and at bedtime. 09/22/22 Historical Provider, fluticasone propion-salmeteroL (Advair Diskus) 250-50 mcg/dose diskus inhaler INHALE 1 PUFF BY MOUTH TWICE DAILY; rinse mouth after use 7 (more content not included)... Normal [facility] FERRITINon 10-28-2022 FERRITIN (NG/ML) IN SER/PLAS 13.0 ng/mL Normal 11.0-307.0 [facility] Comment on above: Performed By: #### L [id number] #### [facility] ([facility]) [address] [place] [address] HEMOGLOBIN AND HEMATOCRIT, B LOODon 10-28-2022 Hematocrit (Bld) [Volume fraction] 28.0 % Low 36.0-48.0 [facility] Comment on above: Performed By: #### L [id number] ####[facility] ([facility])[address] [place] [address] Hemoglobin (Bld) [Mass/Vol] 8.9 g/dL Low 12.0-15.0 [facility] Comment on above: Performed By: #### L [id number] ####[facility] ([facility])[address] [place] [address] IRON AND TIBCon 10-28-2022 IRON (UG/DL) IN SER/PLAS <10 Low 50-212 [facility] Comment on above: Performed By: #### L [id number] ####[facility] ([facility])[address] [place] [address] IRON BINDING CAPACITY (UG/DL) IN SER/PLAS <404 Normal 250-450 [facility] Comment on above: Performed By: #### L [id number] ####[facility] ([facility])[address] [place] [address] IRON BINDING CAPACITY.UNSATURATED (UG/DL) IN SER/PLAS 394.0 ug/dL High 155.0-355.0 [facility] Comment on above: Performed By: #### L [id number] ####[facility] ([facility])[address] [place] [address] IRON SATURATION (%) IN SER/PLAS Normal [facility] Comment on above: Result Comment: Unab le to Calculate Performed By: #### L [id number] ####[facility] ([facility])[address] [place] [address] MAGNESIUMon 10-28-2022 Magnesium [Mass/Vol] 1.8 mg/dL Low 1.9-2.7 [facility] Comment on above: Performed By: #### L [id number] ####[facility] ([facility])[address] [place] [address] 30on 10-27-2022 30 Problem: Respiratory - Adult [...] to address these barriers include na. Normal [facility] BASIC METABOLIC PANELon 08-0 Anion gap [Moles/Vol] 11 mmol/L Normal 7-20 [facility] Comment on above: Performed By: #### L [id number] #### [facility] ([facility]) [address] [place] [address] Calcium [Mass/Vol] 8.8 mg/dL Normal 8.6-10.3 [facility] Comment on above: Performed By: #### L [id number] #### [facility] [address] [place] [address] Chloride [Moles/Vol] 100 mmol/L Normal 98-107 [facility] Comment on above: Performed By: #### L [id number] #### [facility] ([facility]) [address] [place] [address] CO2 [Moles/Vol] 22 mmol/L Normal 21-31 [place] Comment on above: Performed By: #### L [id number] #### [facility] ([facility]) [address] [place] [address] Creatinine [Mass/Vol] 0.99 mg/dL Normal 0.60-1.20 [facility] Comment on above: Performed By: #### L [id number] #### [facility] ([facility]) [address] [place] [address] GLOMERULAR FILTRATION RATE ML/MIN/1.73 SQ M.PREDICTED 61.7 mL/min/1.73m*2 Normal >60.0 [facility] Comment on above: Result Comment: The [facility]???s estimated glomerular filtration rate (eGFR) will [...] individuals. Performed By: #### L [id number] #### [facility] ([facility]) [address] [place] [address] Glucose [Mass/Vol] 111 mg/dL High 70-100 [facility] Comment on above: Performed By: #### L [id number] #### [facility] ([facility]) [address] [place] [address] Potassium [Moles/Vol] 4.2 mmol/L Normal 3.5-5.1 [facility] Comment on above: Performed By: #### L [id number] #### [facility] ([facility]) [address] [address] Sodium [Moles/Vol] 129 mmol/L Low 136-145 [facility] Comment on above: Performed By: #### L [id number] #### [facility] ([facility]) [address] [place] [address] Performed By: #### L [id number] #### [facility] ([facility]) [address] [place] [address] Urea nitrogen [Mass/Vol] 20 mg/dL Normal 7-25 [facility] Comment on above: Performed By: #### L [id number] #### [facility] ([facility]) [address] [place] [address] UREA NITROGEN/CREATININE (MASS RATIO) IN SER/PLAS 20.2 Normal [facility] Comment on above: Performed By: #### L [id number] #### [facility] ([facility]) [address] [place] [address] CBCon 10-27-2022 Erythrocyte distribution width (RBC) [Ratio] 13.5 % Normal 11.5-15.0 [facility] Comment on above: Performed By: #### L [id number] #### [facility] ([facility]) [address] [place] [address] ERYTHROCYTE MEAN CORPUSCULAR HEMOGLOBIN CONCENTRATION (G/DL) BY AUTOMATED 31.6 g/dL Low 32.0-35.0 [facility] Comment on above: Performed By: #### L [id number] #### [facility] ([facility]) [address] [place] [address] Hematocrit (Bld) [Volume fraction] 25.0 % Low 36.0-48.0 [facility] Comment on above: Performed By: #### L [id number] #### [facility] ([facility]) [address] [place] [address] Hemoglobin (Bld) [Mass/Vol] 7.9 g/dL Low 12.0-15.0 [facility] Comment on above: Performed By: #### L [id number] #### [facility] ([facility]) [address] [place] [address] MCH (RBC) [Entitic mass] 26.6 pg Low 27.0-33.0 [facility] Comment on above: Performed By: #### L [id number] #### [facility] ([facility]) [address] [place] [address] MCV (RBC) [Entitic vol] 84.2 fL Normal 82.0-98.0 [facility] Comment on above: Performed By: #### L [id number] #### [facility] ([facility]) [address] [place] [address] PLATELETS (10*3/UL) IN BLOOD AUTOMATED COUNT 349 10*3/uL Normal 150-400 [facility] Comment on above: Performed By: #### L [id number] #### [facility] ([facility]) [address] [place] [address] RBC (Bld) [#/Vol] 2.97 10*6/uL Low 3.80-5.00 [facility] Comment on above: Performed By: #### L [id number] #### [facility] ([facility]) [address] [place] [address] WBC (Bld) [#/Vol] 6.23 10*3/uL Normal 4.00-10.60 [facility] Comment on above: Performed By: #### L [id number] #### [facility] ([facility]) [address] [place] [address] CONSULTon 10-27-2022 CONSULT -- Attestation signed by Robbie Kaur MD at [...] Teaching Physician's Revisions: none Robbie Kaur MD [place] Cardiology Reason For Consult Arrthymias History Of Present Illness Susana Juares is a 67 y.o. female transferred from OSH for symptomatic wide complex tachycardia. PMHx of CAD prior [place], PTCA/stent (s/p RCA PCI x2, most recently 06/2022, on DAPT), HTN, dyslipidemia, COPD, chronic edema, obesity, migraine GATES's, and longstanding tobacco abuse.(has quit.) frequent PVCs. Patient experienced SOB and dizziness while at cardiac rehab, and presented to [facility] where she was found to have frequent PVCs and urns of VT. She was started on amio gtt, and was transferred to [facility]. EKG on admission showed frequent PVCs. Labs showed Na 125, K 4.2 and Mag 1.6, BNP 654, trop 0.01, creatinine is 1.11, Hemoglobin 7.7 with hemoglobin at outlying facility 8.3. chest x-ray without pleural effusion. Notably, patient is wearing 30 day event monitor, [employer], with VT reported. She has been complaining [...] kidney disease, COPD (chronic obstructive pulmonary disease) ([facility]), Coronary artery disease, Coronary artery disease involving northwestern sh[place] coronary artery of [place]western sh[place]one heart without angina pectoris (12/28/2016), Essential hypertension [...] Route Freque (more content not included)... Normal [facility] CREATININE, URINE, RANDOMon 10-27-2022 Creatinine (U) [Mass/Vol] 23.0 mg/dL Low 26-299 [facility] Comment on above: Performed By: #### L [id number] ####[facility] ([facility])[address] [place] [address] HEMOGLOBINon 10-27-2022 Hemoglobin (Bld) [Mass/Vol] 7.4 g/dL Low 12.0-15.0 [facility] Comment on above: Performed By: #### L [id number] #### [facility] ([facility]) [address] [place] [address] Hemoglobin (Bld) [Mass/Vol] 7.6 g/dL Low 12.0-15.0 [facility] Comment on above: Performed By: #### L [id number] #### [facility] ([facility]) [address] [place] [address] MAGNESIUMon 10-27-2022 Magnesium [Mass/Vol] 1.8 mg/dL Low 1.9-2.7 [facility] Comment on above: Performed By: #### L [id number] #### [facility] ([facility]) [address] [place] [address] OSMOLALITY, URINEon 10-28-19 23 OSMOLALITY URINE 189 mOsm/kg Normal 50-1400 [facility] Comment on above: Performed By: #### L [id number] ####[facility] ([facility])[address] [place] [address] SODIUMon 10-27-2022 Sodium [Moles/Vol] 128 mmol/L Low 136-145 [facility] Comment on above: Performed By: #### L [id number] #### [facility] ([facility]) [address] [place] [address] Sodium [Moles/Vol] 130 mmol/L Low 136-145 [facility] Comment on above: Performed By: #### L [id number] #### [facility] ([facility]) [address] [place] [address] SODIUM, URINE, RANDOMon Sodium (U) [Moles/Vol] 41 mmol/L Normal [facility] Comment on above: Performed By: #### L [id number] #### [facility] ([facility]) [address] [place] [address] TSH3 REFLEX TO FT4on 023 THYROTROPIN (MIU/L) IN SER/PLAS BY DETECTION LIMIT <= 0.05 MIU/L 1.56 mIU/L Normal 0.34-5.60 [facility] Comment on above: Performed By: #### L [id number] #### [facility] ([facility]) [address] [place] [address] TYPE AND SCREENon 10-27-2022 AB SCREEN Negative Normal [facility] Comment on above: Performed By: #### L [id number] ####[facility] BLOOD BANK, ABO group Nom (Bld) A Normal [facility] Comment on above: Performed By: #### L [id number] ####[facility] BLOOD B[facility], RH TYPE IN BLOOD Positive Normal [facility] Comment on above: Performed By: #### L [id number] ####[facility] BLOOD BANK, 3010-26-2022 30 The patient is Moderately Unstable - Medium risk of patient condition declining or worsening The patient's goals for the shift include The clinical goals for the shift include vss Problem: Cardiovascular - Adult Goal: Maintains optimal cardiac output and hemodynamic stability Outcome: Not Progressing Goal: Absence of cardiac dysrhythmias or at baseline Outcome: Not Progressing Normal [facility] B-TYPE NATRIURETIC PEPTIDEon 10-26-2022 Natriuretic peptide B (Bld) [Mass/Vol] 654 pg/mL High 0-100 [facility] Comment on above: Performed By: #### L [id number] #### [facility] ([facility]) [address] [place] [address] CBC WITH AUTO DIFFERENTIALon 10-26-2022 Basophils (Bld) [#/Vol] 0.06 10*3/uL Normal 0.00-0.20 [facility] Comment on above: Performed By: #### L [id number] #### [facility] ([facility]) [address] [place] [address] Basophils/100 WBC (Bld) 0.7 % Normal 0.0-1.0 [facility] Comment on above: Performed By: #### L [id number] #### [facility] ([facility]) [address] [place] [address] Eosinophils (Bld) [#/Vol] 0.17 10*3/uL Normal 0.00-0.50 [facility] Comment on above: Performed By: #### L [id number] #### [facility] ([facility]) [address] [place] [address] Eosinophils/100 WBC (Bld) 2.1 % Normal 0.0-6.0 [facility] Comment on above: Performed By: #### L [id number] #### [facility] ([facility]) [address] [place] [address] Erythrocyte distribution width (RBC) [Ratio] 13.4 % Normal 11.5-15.0 [facility] Comment on above: Performed By: #### L [id number] #### [facility] ([facility]) [address] [facility] [place] [place] [address] ERYTHROCYTE MEAN CORPUSCULAR HEMOGLOBIN CONCENTRATION (G/DL) BY AUTOMATED 31.8 g/dL Low 32.0-35.0 [facility] Comment on above: Performed By: #### L [id number] #### [facility] ([facility]) [address] [place] [address] Hematocrit (Bld) [Volume fraction] 24.2 % Low 36.0-48.0 [facility] Comment on above: Performed By: #### L [id number] #### [facility] ([facility]) [address] [place] [address] Hemoglobin (Bld) [Mass/Vol] 7.7 g/dL Low 12.0-15.0 [facility] Comment on above: Performed By: #### L [id number] #### [facility] ([facility]) [address] [place] [address] Immature granulocytes (Bld) [#/Vol] 0.03 10*3/uL Normal 0.00-0.20 [facility] Comment on above: Performed By: #### L [id number] #### [facility] ([facility]) [address] [place] [address] Immature granulocytes/100 WBC (Bld) 0.4 % Normal 0.0-1.0 [facility] Comment on above: Performed By: #### L [id number] #### [facility] ([facility]) [address] [place] [address] Lymphocytes (Bld) [#/Vol] 1.29 10*3/uL Normal 1.20-4.00 [facility] Comment on above: Performed By: #### L [id number] #### [facility] ([facility]) [address] [place] [address] Lymphocytes/100 WBC (Bld) 16.0 % Low 20.0-45.0 [facility] Comment on above: Performed By: #### L [id number] #### [facility] ([facility]) [address] [place] [address] MCH (RBC) [Entitic mass] 27.0 pg Normal 27.0-33.0 [facility] Comment on above: Performed By: #### L [id number] #### [facility] ([facility]) [address] [place] [address] MCV (RBC) [Entitic vol] 84.9 fL Normal 82.0-98.0 [facility] Comment on above: Performed By: #### L [id number] #### [facility] ([facility]) [address] [place] [address] Monocytes (Bld) [#/Vol] 0.80 10*3/uL Normal 0.10-1.00 [facility] Comment on above: Performed By: #### L [id number] #### [facility] ([facility]) [address] [place] [address] Monocytes/100 WBC (Bld) 9.9 % Normal 5.0-12.0 [facility] Comment on above: Performed By: #### L [id number] #### [facility] ([facility]) [address] [place] [address] Neutrophils (Bld) [#/Vol] 5.72 10*3/uL Normal 1.60-7.60 [facility] Comment on above: Performed By: #### L [id number] #### [facility] ([facility]) [address] [place] [address] Neutrophils/100 WBC (Bld) 70.9 % Normal 40.0-72.0 [facility] Comment on above: Performed By: #### L [id number] #### [facility] ([facility]) [address] [place] [address] NRBC (PER 100 WBCS) BY AUTOMATED COUNT 0.0 % Normal 0 [facility] Comment on above: Performed By: #### L [id number] #### [facility] [address] [place] [address] PLATELETS (10*3/UL) IN BLOOD AUTOMATED COUNT 338 10*3/uL Normal 150-400 [facility] Comment on above: Performed By: #### L [id number] #### [facility] ([facility]) [address] [place] [address] RBC (Bld) [#/Vol] 2.85 10*6/uL Low 3.80-5.00 [facility] Comment on above: Performed By: #### L [id number] #### [facility] ([facility]) [address] [place] [address] WBC (Bld) [#/Vol] 8.07 10*3/uL Normal 4.00-10.60 [facility] Comment on above: Performed By: #### L [id number] #### [facility] ([facility]) [address] [place] [address] COMPREHENSIVE METABOLIC PANE Adam 10-26-2022 Albumin [Mass/Vol] 3.8 g/dL Normal 3.5-5.7 [facility] Comment on above: Performed By: #### L [id number] ####[facility] ([facility])[address] [place] [address] ALP [Catalytic activity/Vol] 113 U/L High 34-104 [facility] Comment on above: Performed By: #### L [id number] ####[facility] ([facility])[address] [place] [address] ALT [Catalytic activity/Vol] 11 U/L Normal 7-52 [facility] Comment on above: Performed By: #### L [id number] ####[facility] [place] [address] Anion gap [Moles/Vol] 11 mmol/L Normal 7-20 [facility] Comment on above: Performed By: #### L [id number] ####[facility] ([facility])[address] [place] [address] AST [Catalytic activity/Vol] 17 U/L Normal 13-39 [facility] Comment on above: Performed By: #### L [id number] ####[facility] ([facility])[address] [place] [address] Bilirubin [Mass/Vol] 0.2 mg/dL Low 0.3-1.0 [facility] Comment on above: Performed By: #### L [id number] ####[facility] ([facility])[address] [place] [address] Calcium [Mass/Vol] 8.5 mg/dL Low 8.6-10.3 [facility] Comment on above: Performed By: #### L [id number] ####[facility] ([facility])[address] [place] [address] Chloride [Moles/Vol] 97 mmol/L Low 98-107 [facility] Comment on above: Performed By: #### L [id number] ####[facility] ([facility])[address] [place] [address] CO2 [Moles/Vol] 21 mmol/L Normal 21-31 [place] Comment on above: Performed By: #### L [id number] ####[facility] ([facility])[address] [place] [address] Creatinine [Mass/Vol] 1.11 mg/dL Normal 0.60-1.20 [facility] Comment on above: Performed By: #### L [id number] ####[facility] [place] [address] GLOMERULAR FILTRATION RATE ML/MIN/1.73 SQ M.PREDICTED 53.8 mL/min/1.73m*2 Low >60.0 [facility] Comment on above: Result Comment: [facility]???s estimated glomerular filtration rate (eGFR) will [...] of individuals. Performed By: #### L [id number] ####[facility] [place] [address] Glucose [Mass/Vol] 109 mg/dL High 70-100 [facility] Comment on above: Performed By: #### L [id number] ####[facility] ([facility])[address] [place] [address] Potassium [Moles/Vol] 4.4 mmol/L Normal 3.5-5.1 [facility] Comment on above: Performed By: #### L [id number] ####[facility] ([facility])[address] [place] [address] Protein [Mass/Vol] 6.4 g/dL Normal 6.0-8.3 [facility] Comment on above: Performed By: #### L [id number] ####[facility] ([facility])[address] [place] [address] Sodium [Moles/Vol] 125 mmol/L Low 136-145 [facility] Comment on above: Performed By: #### L [id number] ####[facility] ([facility])[address] [place] [address] Urea nitrogen [Mass/Vol] 24 mg/dL Normal 7-25 [facility] Comment on above: Performed By: #### L [id number] ####[facility] ([facility])[address] [place] [address] UREA NITROGEN/CREATININE (MASS RATIO) IN SER/PLAS 21.6 Normal [facility] Comment on above: Performed By: #### L [id number] ####[facility] [place] [address] MAGNESIUMon 10-26-2022 Magnesium [Mass/Vol] 1.6 mg/dL Low 1.9-2.7 [facility] Comment on above: Performed By: #### L [id number] ####[facility] [place] [address] OSMOLALITYon 10-26-2022 OSMOLALITY MEASURED 266 mOsm/kg Low 285-305 [facility] Comment on above: Performed By: #### L [id number] #### [facility] ([facility]) [address] [place] [address] RETICULOCYTE PANELon 023 HEMOGLOBIN (PG) IN RETICULOCYTES 24.6 pg Low 28.0-36.0 [facility] Comment on above: Performed By: #### L [id number] ####[facility] ([facility])[address] [place] [address] IMMATURE RETICULOCYTE FRACTION (%) 27.6 % High 2-16 [facility] Comment on above: Performed By: #### L [id number] ####[facility] ([facility])[address] [place] [address] RETICULOCYTES (10*6/UL) IN BLOOD 0.0431 10*6/uL Normal 0.0250-0.1000 [facility] Comment on above: Performed By: #### L [id number] ####[facility] ([facility])[address] [place] [address] Reticulocytes/100 RBC (Bld) 1.54 % Normal 0.50-1.80 [facility] Comment on above: Performed By: #### L [id number] ####[facility] ([facility])[address] [place] [address] TROPONIN Ion 10-26-2022 Troponin I.cardiac [Mass/Vol] 0.01 ng/mL Normal 0.00-0.04 [facility] Comment on above: Performed By: #### L [id number] ####[facility] [place] [address] TSH3 REFLEX TO FT4on 023 THYROTROPIN (MIU/L) IN SER/PLAS BY DETECTION LIMIT <= 0.05 MIU/L 1.88 mIU/L Normal 0.34-5.60 [facility] Comment on above: Performed By: #### L [id number] ####[facility] [place] [address] URIC ACIDon 10-26-2022 Magnesium [Mass/Vol] 7.6 mg/dL High 2.3-6.6 [facility] Comment on above: Performed By: #### L [id number] #### [facility] ([facility]) [address] [place] [address] 36on 10-16-2022 36 Patient is allergic to Plavix and takes Brilinta s/p recent PCI in June 2022. It's very costly for her. I told her I'd ask you if she could try Effient to see if that would be less expensive for her. Thoughts? Thanks. Per Dr. Ward on 10/16/2022 via text - ok to switch patient to Effient 10mg daily as long as she has never had a CVA. I gave patient samples of Brilinta today and asked her to let me know when she has about 1 week left, then I will send RX for Effient. [facility] Telephoneon 10-16-2022 Telephone [phone] Susana Juares 1955 F Date Provider Department Center 10/16/2022 [facility] WARD JUSTIN Albarran [facility] Family History Problem Relation Age of Onset Stroke Mother Kidney disease Father Coronary artery disease Paternal Grandfather Family Status - Relation Status Age at Mother Father Paternal Grandfather [facility] 36on 10-15-2022 36 Patient is currently wearing 30 day event monitor. [facility] called with critical ECG of VT. I emailed Chris Potts CNP, Dr. Mustafa, and Dr. Estevez since Dr. Ward is on vacation. Chris responded to increased her carvedilol to 25mg bid. I then spoke with Susana and she said the carvedilol makes her [...] how she feels. She verbalized understanding. Normal [facility] PTH INTACTon 08-04-2022 PTH, Intact 41 pg/mL Normal 15-65 [facility] Comment on above: Performed By: #### P THINT ####[facility] [id number] [place] [address]Dr. Osmel Shelton HEMOGRAM AND PLATELon 2022 Hematocrit (Bld) [Volume fraction] 34.6 % Critically low 36.0-48.0 [facility] Comment on above: Performed By: #### H H #### [facility] Laboratory [address] [address] [address] Osmel Shelton Hemoglobin (Bld) [Mass/Vol] 11.1 g/dL Critically low 12.0-16.0 [facility] Comment on above: Performed By: #### H H #### [facility] [address] [address] [address] Osmel Shelton MCH (RBC) [Entitic mass] 29.3 pg Normal 26.7-34.0 [facility] Comment on above: Performed By: #### H H #### [facility] [address] [address] [address] Osmel Shelton MCHC (RBC) [Mass/Vol] 32.1 g/dL Normal 29.9-35.2 [facility] Comment on above: Performed By: #### H H #### [facility] [address] [address] [address] Osmel Shelton MCV (RBC) [Entitic vol] 91.3 fL Normal 81.0-99.0 [facility] Comment on above: Performed By: #### H H #### [facility] [address] [address] [address] Osmel Shelton PLT 306 103/ul Normal 150-450 [facility] Comment on above: Performed By: #### H H #### [facility] [address] [address] [address] Osmel Shelton RBC 3.79 106/ul Critically low 4.20-5.40 [facility] Comment on above: Performed By: #### H H #### [facility] [address] [place] [address] Dr. Osmel Shelton WBC 4.8 103/ul Normal 4.0-11.0 [facility] Comment on above: Performed By: #### H H #### [facility] [address] [place] [address] Dr. Osmel Shelton MAGNESIUMon 08-03-2022 Magnesium [Mass/Vol] 1.9 mg/dL Normal 1.8-2.4 [facility] Comment on above: Performed By: #### P HOS, MG, CMP, URIC #### [facility] [address] [address] [address] Osmel Shelton PHOSPHORUSon 08-03-2022 Phosphate [Mass/Vol] 4.4 mg/dL Normal 2.6-4.7 [facility] Comment on above: Performed By: #### P HOS, MG, CMP, URIC #### [facility] [address] [address] [address] Osmel Shelton PROF 14(COMP METB)on 023 Albumin [Mass/Vol] 3.6 g/dL Normal 3.4-5.0 [facility] Comment on above: Performed By: #### P HOS, MG, CMP, URIC ####[facility] [address] [place] [address]Dr. Osmel Shelton Albumin/Globulin [Mass ratio] 0.9 {ratio} Normal [facility] Comment on above: Performed By: #### P HOS, MG, CMP, URIC ####[facility] [address] [place] [id number]. Osmel Shelton ALP [Catalytic activity/Vol] 136 U/L Critically high 46-116 [facility] Comment on above: Performed By: #### P HOS, MG, CMP, URIC ####[facility] [address] [place] [address]Dr. Osmel Shelton ALT [Catalytic activity/Vol] 29 U/L Normal 14-59 [facility] Comment on above: Performed By: #### P HOS, MG, CMP, URIC ####[facility] [address] [place] [address]Dr. Osmel Shelton Anion gap [Moles/Vol] 13.5 mmol/L Normal [facility] Comment on above: Performed By: #### P HOS, MG, CMP, URIC ####[facility] [address] [place], [place] [address]Dr. Osmel Shelton AST [Catalytic activity/Vol] 27 U/L Normal 15-37 [facility] Comment on above: Performed By: #### P HOS, MG, CMP, URIC ####[facility] [address] [place], [place] [address]Dr. Osmel Shelton Bilirubin [Mass/Vol] 0.2 mg/dL Normal 0.2-1.0 [facility] Comment on above: Performed By: #### P HOS, MG, CMP, URIC ####[facility] [address] [place] [address]Dr. Osmel Shelton Calcium [Mass/Vol] 9.0 mg/dL Normal 8.5-10.1 [facility] Comment on above: Performed By: #### P HOS, MG, CMP, URIC ####[facility] [address] [place] [address]Dr. Osmel Shelton Chloride [Moles/Vol] 100 mmol/L Normal 98-107 [facility] Comment on above: Performed By: #### P HOS, MG, CMP, URIC ####[facility] [address] [place] [address]Dr. Osmel Shelton CO2 [Moles/Vol] 25.7 mmol/L Normal 21.0-32.0 [facility] Comment on above: Performed By: #### P HOS, MG, CMP, URIC ####[facility] [address] [place] [address]Dr. Osmel Shelton Creatinine [Mass/Vol] 1.40 mg/dL Critically high 0.55-1.02 [facility] Comment on above: Performed By: #### P HOS, MG, CMP, URIC ####[facility] [address] [place] [address]Dr. Osmel Nikita EGFR-AF AUSTRALIAN 45 mL/min/1.73m2 Critically low >=60 [facility] Comment on above: Performed By: #### P HOS, MG, CMP, URIC ####[facility] [address] [place], [place] [address]Dr. Osmel Shelton EGFR-NON AF AUSTRALIAN 37 mL/min/1.73m2 Critically low >=60 [facility] Comment on above: Performed By: #### P HOS, MG, CMP, URIC ####[facility] [address] [place], [place] [address]Dr. Osmel Shelton Globulin (S) [Mass/Vol] 4.2 g/dL Normal [facility] Comment on above: Performed By: #### P HOS, MG, CMP, URIC ####[facility] Pib[address] [place], [place] [address]Dr. Moiramarcia Shelton Glucose [Mass/Vol] 101 mg/dL Normal 74-106 [facility] Comment on above: Performed By: #### P HOS, MG, CMP, URIC ####[facility] [address] [place], [place] [address]Dr. Osmel Shelton Potassium [Moles/Vol] 4.2 mmol/L Normal 3.5-5.1 [facility] Comment on above: Performed By: #### P HOS, MG, CMP, URIC ####[facility] Fc[address] [place], [place] [address]Dr. Moiramarcia Shelton Protein [Mass/Vol] 7.8 g/dL Normal 6.4-8.2 [facility] Comment on above: Performed By: #### P HOS, MG, CMP, URIC ####[facility] [address] [place] [address]Dr. Osmel Shelton Sodium [Moles/Vol] 135 mmol/L Critically low 136-145 Th e [facility] Comment on above: Performed By: #### P HOS, MG, CMP, URIC ####[facility] [address] [place] [address]Dr. Osmel Shelton Urea nitrogen [Mass/Vol] 23.0 mg/dL Critically high 7.0-18.0 [facility] Comment on above: Performed By: #### P HOS, MG, CMP, URIC ####[facility] [address] [place] [address]Dr. Osmel Shelton Urea nitrogen/Creatinine [Mass ratio] 16.4 mg/mg Normal [facility] Comment on above: Performed By: #### P HOS, MG, CMP, URIC ####[facility] [address] [place], [place] [address]Dr. Osmel Shelton UA RANDOMon 08-03-2022 Bilirubin Ql (U) Negative Normal NEGATIVE [facility] Comment on above: Performed By: #### U A #### [facility] [address] [place] [address] Dr. Osmel Shelton Clarity (U) CLEAR Normal CLEAR [facility] Comment on above: Performed By: #### U A #### [facility] [address] [place] [address] Dr. Osmel Shelton Color (U) LT. YELLOW Normal YELLOW [facility] Comment on above: Performed By: #### U A #### [facility] [address] [place] [address] Dr. Osmel Shelton Glucose Ql (U) Negative Normal NEGATIVE [facility] Comment on above: Performed By: #### U A #### [facility] [address] [place] [address] Dr. Osmel Shelton Hemoglobin Ql (U) Negative Normal NEGATIVE [facility] Comment on above: Performed By: #### U A #### [facility] [address] [place] [address] Dr. Osmel Shelton Ketones Ql (U) Negative Normal NEGATIVE [facility] Comment on above: Performed By: #### U A #### [facility] [address] [address] [address] Osmel Shelton LEUKOCYTES Negative Normal NEGATIVE [facility] Comment on above: Performed By: #### U A #### [facility] [address] [address] [address] Osmel Shelton Nitrite Ql (U) Negative Normal NEGATIVE [facility] Comment on above: Performed By: #### U A #### [facility] [address] [address] [address] Osmel Shelton pH (U) 5.5 [pH] Normal 5-9 [facility] Comment on above: Performed By: #### U A #### [facility] [address] [place] [address] Dr. Osmel Shelton SPEC GRAVITY <=1.005 Abnormal 1.005-<=1.025 [facility] Comment on above: Performed By: #### U A #### [facility] [address] [place] [address] Dr. Osmel Shelton UA PROTEIN Negative Normal NEGATIVE/ TRACE [facility] Comment on above: Performed By: #### U A #### [facility] [address] [place] [address] Dr. Osmel Shelton Urobilinogen Qn (U) 0.2 {Chuy'U}/dL Normal 0.2 - 1. 0 [facility] Comment on above: Performed By: #### U A #### [facility] [address] [place] [address] Dr. Osmel Shelton URIC ACID SERUMon 08-03-2022 Urate [Mass/Vol] 8.4 mg/dL Critically high 2.6-6.0 [facility] Comment on above: Performed By: #### P HOS, MG, CMP, URIC ####[facility] [address] [place] [address]Dr. Osmel Shelton URINE T PROTEIN CREAT RATIOo n 08-03-2022 Protein (U) [Mass/Vol] 4.6 mg/dL Normal <=12.0 [facility] Comment on above: Performed By: #### U RTPCR #### [facility] [address] [place] [address] Dr. Osmel Shelton UR PROT CREAT RAT 0.09 Normal [facility] Comment on above: Performed By: #### U RTPCR #### [facility] [address] [place] [address] Dr. Osmel Shelton URINE CREAT 50.21 mg/dL Normal 20.00-300.00 [facility] Comment on above: Performed By: #### U RTPCR #### [facility] [address] [place] [address] Dr. Osmel Shelton VITAMIN D 25 OHon 08-03-2022 VIT D 25-OH 20.9 ng/mL Normal [facility] Comment on above: Performed By: #### V ITAD ####[facility] [address] [place] [address]Dr. Osmel Shelton VIT D RANGES SEE BELOW Normal [facility] Comment on above: Result Comment: <20 ng/mL Vit D deficient 20 - <30 ng/mL Vit D insufficient 30 - 100 ng/mL Vit D sufficient >100 ng/mL Potential Toxicity Performed By: #### V ITAD ####[facility] [address] [place], [place] [address]Dr. Osmel Shelton CBC AUTO DIFFon 07-09-2022 BASO # 0.0 103/ul Normal 0.0-0.1 [facility] Comment on above: Performed By: #### C BC #### [facility] [address] [place] [address] Dr. Osmel Shelton Basophils/100 WBC (Bld) 0.5 % Normal 0.2-2.0 [facility] Comment on above: Performed By: #### C BC #### [facility] [address] [place] [address] Dr. Osmel Shelton EO # 0.2 103/ul Normal 0.0-0.7 [facility] Comment on above: Performed By: #### C BC #### [facility] [address] [place] [address] Dr. Osmel Shelton Eosinophils/100 WBC (Bld) 2.9 % Normal 0.9-7.0 [facility] Comment on above: Performed By: #### C BC #### [facility] [address] [place] [address] Dr. Osmel Shelton Erythrocyte distribution width (RBC) [Ratio] 14.3 % Normal 11.0-15.0 [facility] Comment on above: Performed By: #### C BC #### [facility] [address] [place] [address] Dr. Osmel Shelton Hematocrit (Bld) [Volume fraction] 34.4 % Critically low 36.0-48.0 [facility] Comment on above: Performed By: #### C BC #### [facility] [address] [place] [address] Dr. Osmel Shelton Hemoglobin (Bld) [Mass/Vol] 11.4 g/dL Critically low 12.0-16.0 [facility] Comment on above: Performed By: #### C BC #### [facility] [address] [place] [address] Dr. Osmel Shelton IG # 0.02 10e3/ul Normal 0.00-0.03 [facility] Comment on above: Performed By: #### C BC #### [facility] [address] [place] [address] Dr. Osmel Shelton IG % 0.4 % Normal 0.0-0.5 [facility] Comment on above: Performed By: #### C BC #### [facility] [address] [place] [address] Dr. Osmel Shelton LYMPH # 1.3 103/ul Normal 1.2-3.8 [facility] Comment on above: Performed By: #### C BC #### [facility] [address] [place] [address] Dr. Osmel Shelton Lymphocytes/100 WBC (Bld) 23.0 % Normal 20.5-60.0 [facility] Comment on above: Performed By: #### C BC #### [facility] [address] [place] [address] Dr. Osmel Shelton MANUAL DIFF REQ NO Normal [facility] Comment on above: Performed By: #### C BC #### [facility] [address] [place] [address] Dr. Osmel Shelton MCH (RBC) [Entitic mass] 29.8 pg Normal 26.7-34.0 [facility] Comment on above: Performed By: #### C BC #### [facility] [address] [place] [address] Dr. Osmel Shelton MCHC (RBC) [Mass/Vol] 33.1 g/dL Normal 29.9-35.2 [facility] Comment on above: Performed By: #### C BC #### [facility] [address] [place] [address] Dr. Osmel Shelton MCV (RBC) [Entitic vol] 89.8 fL Normal 81.0-99.0 [facility] Comment on above: Performed By: #### C BC #### [facility] [address] [place] [address] Dr. Osmel Shelton MONO # 0.6 103/ul Normal 0.3-0.8 [facility] Comment on above: Performed By: #### C BC #### [facility] [address] [place] [address] Dr. Osmel Shelton Monocytes/100 WBC (Bld) 11.0 % Normal 1.7-12.0 [facility] Comment on above: Performed By: #### C BC #### [facility] [address] [place] [address] Dr. Osmel Shelton NEUT # 3.4 103/ul Normal 1.4-6.5 [facility] Comment on above: Performed By: #### C BC #### [facility] [address] [place] [address] Dr. Osmel Shelton Neutrophils/100 WBC (Bld) 62.2 % Normal 43.0-75.0 [facility] Comment on above: Performed By: #### C BC #### [facility] [address] [place] [address] Dr. Osmel Shelton Platelet mean volume (Bld) [Entitic vol] 9.4 fL Critically low 9.5-13.5 [facility] Comment on above: Performed By: #### C BC #### [facility] [id number] Osmel Shelton PLT 327 103/ul Normal 150-450 [facility] Comment on above: Performed By: #### C BC #### [facility] [id number] Osmel Shelton RBC 3.83 106/ul Critically low 4.20-5.40 [facility] Comment on above: Performed By: #### C BC #### [facility] [address] [place], [place] [address] Dr. Osmel Shelton WBC 5.5 103/ul Normal 4.0-11.0 [facility] Comment on above: Performed By: #### C BC #### [facility] [address] [address] [address] Osmel Shelton PROF CHEM 8 (BAS METB)on Anion gap [Moles/Vol] 11.7 mmol/L Normal [facility] Comment on above: Performed By: #### B MP ####[facility] [address] [place] [id number] Shelton Calcium [Mass/Vol] 8.8 mg/dL Normal 8.5-10.1 [facility] Comment on above: Performed By: #### B MP ####[facility] [address] [place] [id number] Shelton Chloride [Moles/Vol] 99 mmol/L Normal 98-107 [facility] Comment on above: Performed By: #### B MP ####[facility] [address] [place] [address]DrLissett Shelton CO2 [Moles/Vol] 27.1 mmol/L Normal 21.0-32.0 [facility] Comment on above: Performed By: #### B MP ####[facility] [address] [place] [id number] Shelton Creatinine [Mass/Vol] 1.38 mg/dL Critically high 0.55-1.02 [facility] Comment on above: Performed By: #### B MP ####[facility] [address] [place] [address]Dr. Osmel Shelton EGFR-AF AUSTRALIAN 46 mL/min/1.73m2 Critically low >=60 [facility] Comment on above: Performed By: #### B MP ####[facility] [address] [place] [address]Dr. Osmel Shelton EGFR-NON AF AUSTRALIAN 38 mL/min/1.73m2 Critically low >=60 [facility] Comment on above: Performed By: #### B MP ####[facility] [address] [place], [place] [address]Dr. Osmel Shelton Glucose [Mass/Vol] 105 mg/dL Normal 74-106 [facility] Comment on above: Performed By: #### B MP ####[facility] [address] [place], [place] [address]Dr. Osmel Shelton Potassium [Moles/Vol] 4.8 mmol/L Normal 3.5-5.1 [facility] Comment on above: Performed By: #### B MP ####[facility] [address] [place], [place] [address]Dr. Osmel Shelton Sodium [Moles/Vol] 133 mmol/L Critically low 136-145 Th [facility] Comment on above: Performed By: #### B MP ####[facility] [address] [place], [place] [address]Dr. Osmel Shelton Urea nitrogen [Mass/Vol] 19.0 mg/dL Critically high 7.0-18.0 [facility] Comment on above: Performed By: #### B MP ####[facility] [address] [place], [place] [address]Dr. Osmel Shelton Urea nitrogen/Creatinine [Mass ratio] 13.8 mg/mg Normal [facility] Comment on above: Performed By: #### B MP ####[facility] [address] [place], [place] [address]Dr. Osmel Shelton PULMONARY FUNCTION TESTon PULMONARY FUNCTION [...] ambulatory O2 indicated. Clinical correlation required. Normal [facility] US KIDNEYSon 04-15-2022 US KIDNEYS EXAMINATION: US KIDNEYS HISTORY: Chronic kidney disease stage 3a COMPARISON: [...] by: TIMOTHY GUIDRY Date: 2022-04-15 16:21 Normal [facility] CT LUNG CANCER SCREENINGon 1 CT LUNG [...] TIMOTHY GUIDRY Date: 2022-01-19 14:40 Normal [facility] CBC AUTO DIFFon 01-05-2022 BASO # 0.1 103/ul Normal 0.0-0.1 [facility] Comment on above: Performed By: #### C BC #### [facility] [address] [place] [address] Dr. Osmel Shelton Basophils/100 WBC (Bld) 1.0 % Normal 0.2-2.0 [facility] Comment on above: Performed By: #### C BC #### [facility] [address] [place] [address] Dr. Osmel Shelton EO # 0.2 103/ul Normal 0.0-0.7 [facility] Comment on above: Performed By: #### C BC #### [facility] [address] [place] [address] Dr. Osmel Shelton Eosinophils/100 WBC (Bld) 3.6 % Normal 0.9-7.0 [facility] Comment on above: Performed By: #### C BC #### [facility] [address] [place] [address] Dr. Osmel Shelton Erythrocyte distribution width (RBC) [Ratio] 14.1 % Normal 11.0-15.0 [facility] Comment on above: Performed By: #### C BC #### [facility] [address] [place] [address] Dr. Osmel Shelton Hematocrit (Bld) [Volume fraction] 36.5 % Normal 36.0-48.0 [facility] Comment on above: Performed By: #### C BC #### [facility] [address] [place] [address] Dr. Osmel Shelton Hemoglobin (Bld) [Mass/Vol] 11.8 g/dL Critically low 12.0-16.0 [facility] Comment on above: Performed By: #### C BC #### [facility] [address] [place] [address] Dr. Osmel Shelton IG # 0.02 10e3/ul Normal 0.00-0.03 [facility] Comment on above: Performed By: #### C BC #### [facility] [address] [place] [address] Dr. Osmel Shelton IG % 0.3 % Normal 0.0-0.5 [facility] Comment on above: Performed By: #### C BC #### [facility] [address] [place] [address] Dr. Osmel Shelton LYMPH # 1.3 103/ul Normal 1.2-3.8 [facility] Comment on above: Performed By: #### C BC #### [facility] [address] [place] [address] Dr. Osmel Shelton Lymphocytes/100 WBC (Bld) 21.4 % Normal 20.5-60.0 [facility] Comment on above: Performed By: #### C BC #### [facility] [address] [place] [address] Dr. Osmel Shelton MANUAL DIFF REQ NO Normal [facility] Comment on above: Performed By: #### C BC #### [facility] [address] [place] [address] Dr. Osmel Shelton MCH (RBC) [Entitic mass] 29.3 pg Normal 26.7-34.0 [facility] Comment on above: Performed By: #### C BC #### [facility] [address] [place] [address] Dr. Osmel Shelton MCHC (RBC) [Mass/Vol] 32.3 g/dL Normal 29.9-35.2 [facility] Comment on above: Performed By: #### C BC #### [facility] [address] [address] [address] Osmel Shelton MCV (RBC) [Entitic vol] 90.6 fL Normal 81.0-99.0 [facility] Comment on above: Performed By: #### C BC #### [facility] [address] [address] [address] Osmel Shelton MONO # 0.7 103/ul Normal 0.3-0.8 [facility] Comment on above: Performed By: #### C BC #### [facility] [address] [address] [address] Osmel Shelton Monocytes/100 WBC (Bld) 11.2 % Normal 1.7-12.0 [facility] Comment on above: Performed By: #### C BC #### [facility] [address] [address] [address] Osmel Shelton NEUT # 3.7 103/ul Normal 1.4-6.5 [facility] Comment on above: Performed By: #### C BC #### [facility] [address] [address] [address] Osmel Shelton Neutrophils/100 WBC (Bld) 62.5 % Normal 43.0-75.0 [facility] Comment on above: Performed By: #### C BC #### [facility] [address] [address] [address] Osmel Shelton Platelet mean volume (Bld) [Entitic vol] 9.4 fL Critically low 9.5-13.5 [facility] Comment on above: Performed By: #### C BC #### [facility] [address] [address] [address] Osmel Shelton PLT 364 103/ul Normal 150-450 [facility] Comment on above: Performed By: #### C BC #### [facility] [address] [address] [address] Osmel Shelton RBC 4.03 106/ul Critically low 4.20-5.40 [facility] Comment on above: Performed By: #### C BC #### [facility] [address] [address] [address] Osmel Shelton WBC 5.9 103/ul Normal 4.0-11.0 [facility] Comment on above: Performed By: #### C BC #### [facility] [address] [address] [address] Osmel Shelton LIPID PROFILEon 01-05-2022 CHOL-HDL RATIO NORM SEE BELOW Normal [facility] Comment on above: Result Comment: 3.3 - 4.4 LOW RISK 4.4 - 7.1 AVERAGE RISK 7.1 - 11.0 MODERATE RISK >11.0 HIGH RISK Performed By: #### C MP, LIPID #### [facility] [address] [place] [address] Dr. Osmel Shelton Cholesterol [Mass/Vol] 149 mg/dL Normal <=200 [facility] Comment on above: Performed By: #### C MP, LIPID #### [facility] [address] [place] [address] Dr. Osmel Shelton Cholesterol in HDL [Mass/Vol] 75 mg/dL Critically high 40-60 [facility] Comment on above: Performed By: #### C MP, LIPID #### [facility] [address] [place] [address] Dr. Osmel Shelton Cholesterol in LDL [Mass/Vol] 60.4 mg/dL Normal [facility] Comment on above: Performed By: #### C MP, LIPID #### [facility] [address] [place] [address] Dr. Osmel Shelton Cholesterol.total/Ch olesterol in HDL [Mass ratio] 2.0 {ratio} Normal [facility] Comment on above: Performed By: #### C MP, LIPID #### [facility] [address] [place] [address] Dr. Osmel Shelton HDL NORMAL > or = 60 mg/dl - LO W CARDIOVASCULAR RISK <40 mg/dl - HIGH CARDIOVASCULAR RISK Normal [facility] Comment on above: Performed By: #### C MP, LIPID #### [facility] [address] [place] [address] Dr. Osmel Shelton LDL CALC NORMAL SEE BELOW Normal [facility] Comment on above: Result Comment: <100 mg/dl OPTIMAL 100 - 129 mg/dl NEAR OR ABOVE OPTIMAL 130 - 159 mg/dl BORDERLINE HIGH 160 - 189 mg/dl HIGH >190 mg/dl VERY HIGH Performed By: #### C MP, LIPID #### [facility] [address] [address] [address] Osmel Shelton Triglyceride [Mass/Vol] 68 mg/dL Normal <=150 [facility] Comment on above: Performed By: #### C MP, LIPID #### [facility] [address] [address] [address] Osmel Shelton VLDL CALC 13.6 mg/dL Normal [facility] Comment on above: Performed By: #### C MP, LIPID #### [facility] [address] [place] [address] Dr. Osmel Shelton PROF 14(COMP METB)on 022 Albumin [Mass/Vol] 3.6 g/dL Normal 3.4-5.0 [facility] Comment on above: Performed By: #### C MP, LIPID #### [facility] [address] [address] [address] Osmel Shelton Albumin/Globulin [Mass ratio] 0.9 {ratio} Normal [facility] Comment on above: Performed By: #### C MP, LIPID #### [facility] [address] [address] [address] Osmel Shelton ALP [Catalytic activity/Vol] 152 U/L Critically high 46-116 [facility] Comment on above: Performed By: #### C MP, LIPID #### [facility] [address] [address] [address] Osmel Shelton ALT [Catalytic activity/Vol] 29 U/L Normal 14-59 [facility] Comment on above: Performed By: #### C MP, LIPID #### [facility] [address] [address] [address] Osmel Shelton Anion gap [Moles/Vol] 11.1 mmol/L Normal [facility] Comment on above: Performed By: #### C MP, LIPID #### [facility] [address] [address] [address] Osmel Shelton AST [Catalytic activity/Vol] 23 U/L Normal 15-37 [facility] Comment on above: Performed By: #### C MP, LIPID #### [facility] [address] [address] [address] Osmel Shelton Bilirubin [Mass/Vol] 0.3 mg/dL Normal 0.2-1.0 [facility] Comment on above: Performed By: #### C MP, LIPID #### [facility] [address] [address] [address] Osmel Shelton Calcium [Mass/Vol] 8.9 mg/dL Normal 8.5-10.1 [facility] Comment on above: Performed By: #### C MP, LIPID #### [facility] [address] [address] [address] Osmel Shelton Chloride [Moles/Vol] 96 mmol/L Critically low 98-107 [facility] Comment on above: Performed By: #### C MP, LIPID #### [facility] [address] [address] [address] Osmel Shelton CO2 [Moles/Vol] 28.2 mmol/L Normal 21.0-32.0 [facility] Comment on above: Performed By: #### C MP, LIPID #### [facility] [address] [address] [address] Osmel Shelton Creatinine [Mass/Vol] 1.46 mg/dL Critically high 0.55-1.02 [facility] Comment on above: Performed By: #### C MP, LIPID #### [facility] [address] [address] [address] Osmel Shelton EGFR-AF AUSTRALIAN 43 mL/min/1.73m2 Critically low >=60 [facility] Comment on above: Performed By: #### C MP, LIPID #### [facility] [address] [address] [address] Osmel Shelton EGFR-NON AF AUSTRALIAN 36 mL/min/1.73m2 Critically low >=60 [facility] Comment on above: Performed By: #### C MP, LIPID #### [facility] [address] [address] [address] Osmel Shelton Globulin (S) [Mass/Vol] 4.2 g/dL Normal [facility] Comment on above: Performed By: #### C MP, LIPID #### [facility] [address] [address] [address] Osmel Shelton Glucose [Mass/Vol] 95 mg/dL Normal 74-106 [facility] Comment on above: Performed By: #### C MP, LIPID #### [facility] [address] [address] [address] Osmel Shelton Potassium [Moles/Vol] 5.3 mmol/L Critically high 3.5-5.1 [facility] Comment on above: Performed By: #### C MP, LIPID #### [facility] [address] [place] [address] Dr. Osmel Shelton Protein [Mass/Vol] 7.8 g/dL Normal 6.4-8.2 [facility] Comment on above: Performed By: #### C MP, LIPID #### [facility] [address] [place] [address] Dr. Osmel Shelton Sodium [Moles/Vol] 130 mmol/L Critically low 136-145 [facility] Comment on above: Performed By: #### C MP, LIPID #### [facility] [address] [address] [address] Osmel Shelton Urea nitrogen [Mass/Vol] 22.0 mg/dL Critically high 7.0-18.0 [facility] Comment on above: Performed By: #### C MP, LIPID #### [facility] [address] [place] [address] Dr. Osmel Shelton Urea nitrogen/Creatinine [Mass ratio] 15.1 mg/mg Normal [facility] Comment on above: Performed By: #### C MP, LIPID #### [facility] [address] [place] [address] Dr. Osmel Shelton Vital Signs Date Time Vital Sign Value Performing Clinician Facility 11-16-2023 15:26-0400 Body height 154.94 cm [facility] 11-16-2023 15:26-0400 Body mass index (BMI) [Ratio] 38.4 kg/m2 [facility] 11-16-2023 15:26-0400 Body temperature 96.1 [degF] [facility] 11-16-2023 15:26-0400 Body weight 92.24 kg [facility] 11-16-2023 15:26-0400 Diastolic blood pressure 79 mm[Hg] [facility] 11-16-2023 15:26-0400 Respiratory rate 20 /min [facility] 11-16-2023 15:26-0400 Systolic blood pressure 171 mm[Hg] [facility] 03-09-2023 11:20-0500 Body height 154.94 cm Jackelyn Wagners Other [facility] Other 03-09-2023 11:20-0500 Body mass index (BMI) [Ratio] 38.62 kg/m2 Jackelyn [employer] Other [facility] Other 03-09-2023 11:20-0500 Body temperature 96.7 [degF] Jackelyn [employer] Other [facility] Other 03-09-2023 11:20-0500 Body weight 92.72 kg Jackelyn [employer] Other [facility] Other 03-09-2023 11:20-0500 Diastolic blood pressure 60 mm[Hg] Aziz [employer] Other [facility] Other 03-09-2023 11:20-0500 Respiratory rate 18 /min Jackelyn [employer] Other [facility] Other 03-09-2023 11:20-0500 SaO2% (BldA) [Mass fraction] 97 % Azsasha Wagners Other [facility] Other 03-09-2023 11:20-0500 Systolic blood pressure 100 mm[Hg] Azsasha Wagners Other [facility] Other 04-07-2022 15:20-0500 Body height 154.94 cm Azsasha Wagners Other [facility] Other 04-07-2022 15:20-0500 Body mass index (BMI) [Ratio] 39.67 kg/m2 Azsasha Wagners Other [facility] Other 04-07-2022 15:20-0500 Body temperature 97.7 [degF] Jackelyn Wagners Other [facility] Other 04-07-2022 15:20-0500 Body weight 95.26 kg Jackelyn Wagners Other [facility] Other 04-07-2022 15:20-0500 Diastolic blood pressure 90 mm[Hg] Jackelyn Wagners Other [facility] Other 04-07-2022 15:20-0500 Respiratory rate 18 /min Azsasha Wagners Other [facility] Other 04-07-2022 15:20-0500 SaO2% (BldA) [Mass fraction] 97 % Azsasha [employer]ous Other [facility] Other 04-07-2022 15:20-0500 Systolic blood pressure 140 mm[Hg] Aziz Bakhous Other [facility] Other Encounters Encounter Date Encounter Type Care Provider Facility Start: 11-16-2023 End: 11-16-2023 ambulatory [facility] Work Phone: Start: 11-16-2023 End: 11-16-2023 Patient encounter procedure [facility] Roger Work Phone: Start: 11-08-2023 Non-patient / Non-visit [facility] Work Phone: Start: 10-12-2023 End: 10-12-2023 ambulatory [facility] Start: 06-29-2023 End: 06-29-2023 ambulatory [facility] Start: 04-12-2023 End: 04-12-2023 ambulatory ROBERTA Not Available Start: 03-09-2023 End: 03-09-2023 ambulatory Jackelyn Guillory Other [facility] Other Start: 03-09-2023 Office outpatient vi sit 25 minutes Jackelyn Guillory [facility] Start: 03-02-2023 End: 03-02-2023 ambulatory [facility] Start: 12-28-2022 End: 12-28-2022 [facility] Start: 11-17-2022 End: 11-17-2022 ambulatory MICHAEL KRAUSE [facility] Start: 10-29-2022 Evaluation and manag ement of inpatient ANGEL [facility] Start: 10-29-2022 [facility]: 10-27-2022 Evaluation and manag ement of inpatient [facility] Start: 10-26-2022 Evaluation and manag ement of inpatient [facility] Start: 10-26-2022 End: 10-31-2022 Evaluation and management of inpatient ALIREZA [facility] Start: 08-03-2022 End: 08-04-2022 ambulatory JACKELYN GUILLORY Facility:[facility] Start: 07-15-2022 Encounter for other preprocedural examination DR ABYB WARD [facility] Start: 07-09-2022 End: 07-10-[address] ABBY WARD Facility:[facility] Start: 07-09-2022 End: 07-10-2022 Encounter for other preprocedural examination DR ABBY WARD Facility:[facility] Start: 07-09-2022 ambulatory LUIS SAMSA . Facility :[facility] Start: 05-20-2022 End: 05-21-2022 ambulatory LUIS SAMSA . Facility:[facility] Start: 04-27-2022 End: 07-08-2022 ambulatory LUIS SAM . Facility:[facility] Start: 04-15-2022 End: 04-16-2022 ambulatory JACKELYN KIRKPATRICKRANJIT Facility:[facility] Start: 04-07-2022 End: 04-07-2022 ambulatory Sebastiansasha Yinaranjit Other [employer] Other Start: 04-07-2022 Office outpatient ne w 30 minutes Jackelyn Kristyjulia [facility] Nephrology Roger Start: 01-23-2022 End: 01-24-2022 ambulatory LUIS SCHUMACHER . Facility:[facility] Start: 01-19-2022 End: 01-20-2022 ambulatory LUIS SCHUMACHER . Facility:[facility] Start: 01-05-2022 End: 01-06-[address] ANNA CRAFT Facility:[facility] Plan of Treatment Date Care Activity Detail Author Renal function 1999 panel - Serum or Plasma [facility] enter [facility] Payers Date Payer Category Payer Medicare [id number] 2. [id number] 1961 Self-pay 1955 Unknown [id number] 2.16.84 [id number] 1955 Unknown [id number] [id number] 1953 Unknown [id number] 2.16.84 [id number] 1953 Unknown [id number] 2.16.84 [id number] 1953 Unknown [id number] 2.16.84 [id number] 1953 Unknown [id number] 2.16.84 [id number] 1953 Unknown [id number] 2.16.84 [id number] 1953 Unknown [id number] 2.16.84 [id number] 1953 Unknown [id number] 2.16.84 [id number] Unknown [id number] 2.16.84 [id number] Unknown [id number] Social History Date Type Detail Facility Unknown if ever smoked [facility] Other Sex Assigned At Sex Assigned At Bir th [facility] Other Start: 11-16-2023 Tobacco smoking status NHIS Ex-smoker (finding) [facility] Start: 1955 Sex Assigned At Female F [facility] Clinical Notes 04-07-2022 to 10-12-2023 Note Date & Type Note Facility 10-12-2023 Note [facility] Consult Note Reason for visit: PVC induced NSVT, on amiodarone 10/12/23 Patient was still on amiodarone. her pulse check today reveals normal sinus rhythm without much PVCs. Dr. Schumacher's note on 07/17/2023 makes mention of she [...] in order to feel better Prior HPI: Susana Juares is a 68 y.o. year old with past medical history of CAD with stable recent cath 10/30/22 and hx of x2 stents to RCA in 2001 and 06/2022, hypertension, anemia, dyslipidemia, COPD, chronic anemia, obesity, migraine headaches, longstanding tobacco use history but has quit, frequent PVCs. She is currently on dual antiplatelet therapy with aspirin and effient. She was recently seen at [facility] as a transfer from [facility] for complaints of symptomatic wide-complex tachycardia with [...] Coronary artery disease Coronary artery disease involving northwestern shoshone coronary artery of northwestern shoshone heart without angina pectoris 12/28/2016 Essential hypertension [...] nebulizer solution INHA (more content not included)... [facility] 06-29-2023 Note [facility] Consult Note [...] in order to feel better Prior HPI: Susana Juares is a 68 y.o. year old with past medical history of CAD with stable recent cath 10/30/22 and hx of x2 stents to RCA in 2001 and 06/2022, hypertension, anemia, dyslipidemia, COPD, chronic anemia, obesity, migraine headaches, longstanding tobacco use history but has quit, frequent PVCs. She is currently on dual antiplatelet therapy with aspirin and effient. She was recently seen at [facility] as a transfer from [facility] for complaints of symptomatic wide-complex tachycardia with [...] kidney disease COPD (chronic obstructive pulmonary disease) ([facility]) Coronary artery disease Coronary artery disease involving northwestern shoshone coronary artery of northwestern shoshone heart without angina pectoris 12/28/2016 Essential hypertension [...] Intimate Partner Violence: Not At Risk (10/26/2022) [place] Safety & Environment Fear of Current or [...] mouth in t (more content not included)... 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 year old with past medical history of CAD with stable recent cath 10/30/22 and hx of x2 stents to RCA in 2001 and 06/2022, hypertension, anemia, dyslipidemia, COPD, chronic anemia, obesity, migraine headaches, longstanding tobacco use history but has quit, frequent PVCs. She is currently on dual antiplatelet therapy with aspirin and effient. She was recently seen at [facility] as a transfer from [facility] for complaints of symptomatic wide-complex tachycardia with [...] kidney disease COPD (chronic obstructive pulmonary disease) ([facility]) Coronary artery disease Coronary artery disease involving northwestern shoshone coronary artery of northwestern shoshone heart without angina pectoris 12/28/2016 Essential hypertension [...] bedtime. ferrous sulfate 324 (more content not included)...[facility]10-02-2023 NoteUT Electrophysiology Consult Note Reason for visit: PVC induced NSVT, on amiodarone HPI: Susana Juares is a 67 y.o. year old with past medical history of CAD with stable recent cath 10/30/22 and hx of x2 stents to RCA in 2001 and 06/2022, hypertension, anemia, dyslipidemia, COPD, chronic anemia, obesity, migraine headaches, longstanding tobacco use history but has quit, frequent PVCs. She is currently on dual antiplatelet therapy with aspirin and effient. She was recently seen at [facility] as a transfer from [facility] for complaints of symptomatic wide-complex tachycardia with [...] kidney disease COPD (chronic obstructive pulmonary disease) ([facility]) Coronary artery disease Coronary artery disease involving northwestern shoshone coronary artery of northwestern shoshone heart without angina pectoris 12/28/2016 Essential hypertension [...] mouth after use furosemid (more content not included)...[facility] 12-28-2022 NotePatient here for 6 week [...] light-headedness. All other systems reviewed and are negative.[facility] 11-17-2022 NoteSent pt for CBC and pt to f/u with her PCP and tour counselor [facility]08-22-2023 NoteReviewed rhythm strips from Cardiac rehab and normal sinus rhythm, no PVCS [facility]23 NoteUTP CARDIOLOGY PROGRESS NOTE HPI: Susana Juares is a 67 y.o. female here [...] Hyponatremia Admission Diagnosis: Arrhythmia [I49.9] Hospital course: Susana Juares is an 67 y.o. female who came from home. She was at cardiac rehab on the and had experienced shortness of breath and dizziness which patient states are usually her only symptoms when she is not feeling well. Patient denied chest pain, palpations, changes in vision, edema, fever, chills. Patient currently without shortness of breath or dizziness. Patient went to [place] [facility] where she was noted to be having frequent PVCs and was having runs of V. tach. Patient states arrhthymias became after cardiac stent in June. Patient follows with [facility] cardiology group. patient was placed on amiodarone infusion and was transferred to [facility] for higher level of care. I discussed with on-call seismograph operator, who recommended continuation of amiodarone infusion, continue home beta-fernando, echo placed for morning, and they will see patient in the morning. Discussed with seismograph operator EKG noting frequent PVCs. Patient with sodium [...] Vascular: No JVD. Cardiovas (more content not included)...[facility] 11-17-2022 NoteCoronary artery disease is stable without any concerning symtpoms Continue GDMT- ASA, brilinta, toprol, imdur continue risk factor modifications- heart healthy diet, regular exercise as tolerated and continue all medications.[facility] 11-17-2022 NoteHypertension is well controlled [facility]-22-2023 NoteCurrently on amiodarone for rhythm control and toprol for rate control for NSVT and frequent PVCs Recent heart cath with non obstructive CAD- no intervention was needed RTC with EP for further management and evaluation. In light of COPD please determine with Dr Schumacher if oysterman amiodarone if feasible.[facility]08-05-2023 NoteDischarge education completed with patient at bedside; no further questions or concerns. Copy of signed AVS placed in paper chart. Prescriptions filled via imeds and sent electronically to pharmacy on file. RN escorted patient to main entrance lobby via wheelchair.[facility]08-05-2023 Note Hospital Medicine Discharge Summary Final Discharge Diagnosis: Arrhythmia Hyponatremia Admission Diagnosis: Arrhythmia [I49.9] Hospital course: Susana Juares is an 67 y.o. female who came from home. She was at cardiac rehab on the and had experienced shortness of breath and dizziness which patient states are usually her only symptoms when she is not feeling well. Patient denied chest pain, palpations, changes in vision, edema, fever, chills. Patient currently without shortness of breath or dizziness. Patient went to [place] [facility] where she was noted to be having frequent PVCs and was having runs of V. tach. Patient states arrhthymias became after cardiac stent in June. Patient follows with [facility] cardiology group. patient was placed on amiodarone infusion and was transferred to [facility] for higher level of care. I discussed with on-call seismograph operator, who recommended continuation of amiodarone infusion, continue home beta-fernando, echo placed for morning, and they will see patient in the morning. Discussed with seismograph operator EKG noting frequent PVCs. Patient with sodium [...] - Continue Toprol and olmesartan. Dear Dr. Roberta MD, [facility] is advised to follow up with [...] Medications These medications were sent to [facility] - [place], [place] - [address] [facility] [address] [facility] [place] [address], [facility] [address] amiodarone 200 mg tablet ferrous sulfate 324 mg (65 mg iron) EC tablet magnesium oxide 400 mg (241.3 mg magnesium) tablet metoprolol succinate XL 100 mg 24 h (more content not included)...[facility]08-05-2023 Note Attestation signed by Amara Daugherty MD at 10/31/2022 6:49 PM I personally saw and examined the patient on the same date of service as resident/fellow Dr. Rossi. I discussed the findings and therapeutic plan with the resident/fellow Dr. Rossi. I agree with the documentation, except for any edits/updates below. Nephrology Progress Note Patient : Susana Juares; 67 y.o. Location: 3116/3116-01 Attending: Alireza Mcallister MD Admit Date: 10/26/2022 Hospital Day: 5 Reason for Consult: Hyponatremia and hypomagnesemia Subjective: History of present illness: Susana Juares is a 67 y.o. female with significant PMHx of TX, CAD, hypertension, hyperlipidemia, and COPD was admitted yesterday for arrhythmias. Patient states she is SOB and dizzy. Dizziness occurs after taking medications, specifically metoprolol. Patient has been wearing a halter monitor which detected multiple episodes of VT and frequent PVCs. Her episodes got worse after cardiac stent in 06/2022. Patient is followed by Dr. Ward ([facility] Cardiology). Nephrology was consulted due [...] (0.083 %) nebuliz (more content not included)... [facility]08-04-2023 Note Attestation signed by Robbie Kaur [...] Teaching Physician's Revisions: none Robbie Kaur MD [place] Cardiology Subjective No acute events overnight. Seen [...] -- -- 67 17 100 % -- 10/29/22 2015 107/55 36.5 ???C (97.7 ???F) Temporal 63 [...] Value Ventricular Rate 86 Atrial Rate 86 [place] Interval 146 QRS DURATION 84 QT Interval 376 QTC CALCULATION(BAZETT) 449 P Linton 78 R-Linton 52 T Wave Linton 66 Impression Sinus rhythm with frequent Premature [...] Should the patient's shortn (more content not included)...[facility]08-04-2023 NoteHospital Medicine Daily Progress Note - 10/30/2022 4:19 PM; Room: [address] [place], [place] [address] Admission: 10/26/2022 10:28 PM; Length of stay: 4 days THE HOSPITALIST TEAM PREFERS TO USE [employer] CHAT FOR COMMUNICATION 7AM-7PM. IF I DO NOT RESPOND WITHIN 15 MINUTES, PLEASE PAGE ME/CALL THROUGH THE MANAGER SERVICING. FROM 7PM-7AM, PLEASE PAGE [phone](COVR) Code Status: Full Code Discharge Destination: home Discharge planning: Pending ischemic work up. EP input pending. Overview Patient is seen for evaluation and management of SOB. Subjective Susana A Juares was seen and examined at [...] Active Problems: COPD (chronic obstructive pulmonary disease) ([facility]) Coronary artery disease involving northwestern shoshone coronary artery of northwestern shoshone heart without angina pectoris Essential hypertension History of acute inferior wall TX Mixed hyperlipidemia Anemia Hypomagnesemia Hyponatremia Chest pain Assessment and Plan #Cardiac arrhythmia, frequent PVCs #Acute on chronic anemia - Now 8.4, was down into 7s this admission, was in 11s in June when patient started brilinta #Hx of runs of trustedsafe at [facility] #Hyponatremia, currently asymptomatic. Sodium 125 #Hypomagnesia #Essential [...] Daily magnesium oxide, 4 (more content not included)...[facility]08-04-2023 Note Attestation signed by Amara Daugherty MD at 10/30/2022 3:45 PM As the teaching physician, I have personally performed or re-performed the history of present illness, physical exam and medical decision making activities of the encounter and verified the medical student's documentation. I made pertinent changes as necessary to ensure accurate documentation. Nephrology Progress Note Patient : Susana Juares; 67 y.o. Location: 3116/3116-01 Attending: Viv Livingston MD Admit Date: 10/26/2022 Hospital Day: 4 Reason for Consult: Hyponatremia and hypomagnesemia Subjective: History of present illness: Susana Juares is a 67 y.o. female with significant PMHx of TX, CAD, hypertension, hyperlipidemia, and COPD was admitted yesterday for arrhythmias. Patient states she is SOB and dizzy. Dizziness occurs after taking medications, specifically metoprolol. Patient has been wearing a halter monitor which detected multiple episodes of VT and frequent PVCs. Her episodes got worse after cardiac stent in 06/2022. Patient is followed by Dr. Ward ([facility] Cardiology). Nephrology was consulted due [...] Order Taking? Sig Docum (more content not included)...[facility]08-04-2023 NotePatient: Susana Juares Procedure Information Date/Time: 10/30/22 1400 Procedures: Coronary angiography Right heart cath Location: [facility]PER[facility] 3 / [facility] (Cath) Providers: Robbie Kaur MD [...] Plan discussed with attending. [facility] Note Gastroenterology/Hepatology Progress Note IDENTIFYING DATA PATIENT: Susana Juares ADMIT DATE: 10/26/2022 TIME OF EVALUATION: [...] BUN 18 10/30/2022 IMAGING: ASSESSMENT AND PLAN Susana Juares is a 67 y.o. female with [...] us to participate in the care of Susana Juares. Gastroenterology 6 am to 4 pm weekdays in house: [phone] (more content not included)... [facility]08-03-2023 Note Attestation signed by Amara Daugherty MD at 10/29/2022 3:33 PM As the teaching physician, I have personally performed or re-performed the history of present illness, physical exam and medical decision making activities of the encounter and verified the medical student's documentation. I made pertinent changes as necessary to ensure accurate documentation. Nephrology Progress Note Patient : Susana Juares; 67 y.o. Location: 3116/3116-01 Attending: Viv Livingston MD Admit Date: 10/26/2022 Hospital Day: 3 Reason for Consult: Hyponatremia and hypomagnesemia Subjective: History of present illness: Susana Juares is a 67 y.o. female with significant PMHx of TX, CAD, hypertension, hyperlipidemia, and COPD was admitted yesterday for arrhythmias. Patient states she is SOB and dizzy. Dizziness occurs after taking medications, specifically metoprolol. Patient has been wearing a halter monitor which detected multiple episodes of VT and frequent PVCs. Her episodes got worse after cardiac stent in 06/2022. Patient is followed by Dr. Ward ([facility] Cardiology). Nephrology was consulted due [...] mg /3 mL (0.083 %) nebulizer solution [id number] INHALE 1 (ONE) vial via NEBULIZER FOUR TIMES DAILY Historical Provider, Active albuterol 90 mcg/actuation inhaler [id number] INHALE 2 PUFFS BY MOUTH EV (more content not included)...[facility]08-03-2023 Note Physical Therapy Physical Therapy Evaluation Patient Name: Susana Juares : 1955 Today's Date: 10/29/2022 Patient is a 67 y/o female who presents from OSH after SOB and dizziness while at cardiac rehab. EKG found frequent PVC's and runs of V-tach. Transferred to [facility] for further care. Just returned [...] Chronic GERD COPD (chronic obstructive pulmonary disease) ([facility]) Coronary artery disease involving northwestern shoshone coronary artery of northwestern shoshone heart without angina pectoris Diuretic-induced hypokalemia Essential hypertension Former smoker Health care maintenance History of acute inferior wall TX Lower back pain Mixed hyperlipidemia Severe obesity (BMI 35.0-39.9) with comorbidity ([facility]) Shortness of breath Chest pain Arrhythmia Anemia Hypomagnesemia Hyponatremia Past Medical History: Diagnosis Date Chronic GERD 12/28/2016 Chronic kidney disease COPD (chronic obstructive pulmonary disease) ([facility]) Coronary artery disease Coronary artery disease involving northwestern shoshone coronary artery of northwestern shoshone heart without angina pectoris 12/28/2016 Essential hypertension [...] Level of Function Prior Function Level of [place]: Independent with ADLs and functional transfers, Independent [...] Functional Limits LLE Assessme (more content not included)...[facility] 10-29-2022 Note Attestation signed by Harry aLdd MD at 10/29/2022 6:17 PM I personally [...] outpatient. Gastroenterology/Hepatology Progress Note IDENTIFYING DATA PATIENT: Susana Juares ADMIT DATE: 10/26/2022 TIME OF EVALUATION: [...] BUN 19 10/29/2022 PROT 6.4 10/26/2022 IMAGING: @[id number]@ ASSESSMENT AND PLAN Susana Juares is a 67 y.o. female with [...] or hematochezia. Hemoglobin has (more content not included)...[facility]08-03-2023 NoteOccupational Therapy Occupational Therapy Evaluation Patient Name: Susana Juares : 1955 Today's Date: 10/29/2022 Time In: 748 Time Out: 809 Susana Juares is an 67 y.o. female who came from home. She was at cardiac rehab on the and had experienced shortness of breath and dizziness which patient states are usually her only symptoms when she is not feeling well. Patient denied chest pain, palpations, changes in vision, edema, fever, chills. Patient currently without shortness of breath or dizziness. Patient went to [place] [facility] where she was noted to be having frequent PVCs and was having runs of V. tach. Patient states arrhthymias became after cardiac stent in June. Patient follows with [facility] cardiology group. patient was placed on amiodarone infusion and was transferred to [facility] for higher level of care. I discussed with on-call seismograph operator, who recommended continuation of amiodarone infusion, continue home beta-fernando, echo placed for morning, and they will see patient in the morning. Discussed with seismograph operator EKG noting frequent PVCs. Patient with sodium of 125, BNP 654, chest x-ray without pleural effusion, creatinine is 1.11. 3 months ago NA was 133. Hemoglobin 7.7 with hemoglobin at outlying facility 8.3. Continue anemia workup. Continue hyponatremia work up Principal Problem: Arrhythmia Active Problems: COPD (chronic obstructive pulmonary disease) ([facility]) General Subjective: friendly and cooperative, reports generalized SOB upon minimal exertion, planned stress today Patient Active Problem List Diagnosis Bladder prolapse, female, acquired Chronic GERD COPD (chronic obstructive pulmonary disease) ([facility]) Coronary artery disease involving northwestern shoshone coronary artery of northwestern shoshone heart without angina pectoris Diuretic-induced hypokalemia Essential hypertension Former smoker Health care maintenance History of acute inferior wall TX Lower back pain Mixed hyperlipidemia Severe obesity (BMI 35.0-39.9) with comorbidity ([facility]) Shortness of breath Chest pain Arrhythmia Anemia Hypomagnesemia Hyponatremia Past Medical History: Diagnosis Date Chronic GERD 12/28/2016 Chronic kidney disease COPD (chronic obstructive pulmonary disease) ([facility]) Coronary artery disease Coronary artery disease involving northwestern shoshone coronary artery of northwestern shoshone heart without angina pectoris 12/28/2016 Essential hypertension [...] Lives With: Spouse Home Adaptive Equipment: Cane (HHS) Home Layout: Bed/bath upstairs, Other (Comment) (tri level , 4 steps with rail) Home Access: Stairs to enter with rails (4) Bathroom Shower/Tub: Tub/shower unit Prior Level of Function Prior Function Level of [place]: Independent with ADLs and functional transfers, Independent [...] (Independent) Total Score OT (more content not included)...[facility] 10-29-2022 NoteHospital Medicine Daily Progress Note - 10/29/2022 7:48 AM; Room: [address] [place], [place] [address]- Admission: 10/26/2022 10:28 PM; Length of stay: 3 days THE HOSPITALIST TEAM PREFERS TO USE [employer] CHAT FOR COMMUNICATION 7AM-7PM. IF I DO NOT RESPOND WITHIN 15 MINUTES, PLEASE PAGE ME/CALL THROUGH THE MANAGER SERVICING. FROM 7PM-7AM, PLEASE PAGE [phone](COVR) Code Status: Full Code Discharge Destination: home Discharge planning: Pending ischemic work up. EP input pending. Overview Patient is seen for evaluation and management of SOB. Subjective Susana Juares was seen and examined at bedside. [...] Active Problems: COPD (chronic obstructive pulmonary disease) ([facility]) Coronary artery disease involving northwestern shoshone coronary artery of northwestern shoshone heart without angina pectoris Essential hypertension History of acute inferior wall [place] Mixed hyperlipidemia Anemia Hypomagnesemia Hyponatremia Assessment and Plan #Cardiac arrhythmia, frequent PVCs #Acute on chronic anemia - Now 8.4, was down into 7s this admission, was in 11s in June when patient started brilinta #Hx of runs of trustedsafe at [facility] #Hyponatremia, currently asymptomatic. Suspect hypervolemic. Sodium 125 [...] -- 83.6 PLATELETS AUTO (more content not included)...[facility] 10-28-2022 NoteHospital Medicine Daily Progress Note - 10/28/2022 5:29 PM; Room: [address] [place] [address] Admission: 10/26/2022 10:28 PM; Length of stay: 2 days THE HOSPITALIST TEAM PREFERS TO USE [employer] FOR COMMUNICATION 7AM-7PM. IF I DO NOT RESPOND WITHIN 15 MINUTES, PLEASE PAGE ME/CALL THROUGH THE MANAGER SERVICING. FROM 7PM-7AM, PLEASE PAGE [phone](COVR) Code Status: Full Code Discharge Destination: home Discharge planning: Pending ischemic work up. EP input pending. Overview Patient is seen for evaluation and management of SOB. Subjective Susana A Juares was seen and examined at [...] Active Problems: COPD (chronic obstructive pulmonary disease) ([facility]) Coronary artery disease involving northwestern shoshone coronary artery of northwestern shoshone heart without angina pectoris Essential hypertension History of acute inferior wall [place] Mixed hyperlipidemia Anemia Hypomagnesemia Hyponatremia Assessment and Plan #Cardiac arrhythmia, frequent PVCs #Acute on chronic anemia - down into 7s this admission, was in 11s in June when patient started brilinta #Hx of runs of trustedsafe at [facility] #Hyponatremia, currently asymptomatic #Hypomagnesia #Essential HTN #CAD [...] 7 days Lab Units (more content not included)...[facility] 10-28-2022 Note Attestation signed by Robbie [...] Teaching Physician's Revisions: none Robbie Kaur MD [place] Cardiology Subjective No acute events overnight. Seen and examined at bedside in the AM. Denies any chest pain, shortness of breath, or dizziness at this point. Tele showed PVCs without evidence of VT or AIVR. Objective Patient Vitals for the past 24 hrs: BP Temp Temp src Pulse Resp SpO2 Weight 10/28/22 1410 (!) 93/49 36.8 ???C (98.3 ???F) Temporal 69 16 100 % -- 10/28/22 1120 111/59 36.9 ???C (98.4 ???F) Temporal 69 15 99 % -- 10/28/22 1105 126/65 36.8 ???C (98.2 ???F) Temporal 68 16 99 % -- 10/28/22 0725 126/73 36.8 ???C (98.3 ???F) Temporal 71 17 98 % -- 10/28/22 0646 -- -- -- -- -- -- 93.9 kg (207 lb 0.2 oz) 10/28/22 0010 136/67 -- -- 73 15 98 % -- 10/27/22 2031 136/67 36.9 ???C (98.4 ???F) Temporal 69 17 99 % -- 10/27/22 1615 [...] Value Ventricular Rate 86 Atrial Rate 86 [place] Interval 146 QRS DURATION 84 QT Interval 376 QTC CALCULATION(BAZETT) 449 P Linton 78 R-Linton 52 T Wave Linton 66 Impression Sinus rhythm with frequent Premature [...] for her dyspnea 7. Follow-up with Dr. Ward in the next 1 to 2 months 8. Follow-up with her family physician as scheduled PROCEDURES: Ultrasound-guided access to the right internal jugular vein, right heart catheterization (more content not included)...[facility]08-02-2023 Note Attestation signed by Amara Daugherty MD at 10/28/2022 6:48 PM As the teaching physician, I have personally performed or re-performed the history of present illness, physical exam and medical decision making activities of the encounter and verified the medical student's documentation. I made pertinent changes as necessary to ensure accurate documentation. Nephrology Progress Note Patient : Susana Juares; 67 y.o. Location: [id number] Attending: Viv Livingston MD Admit Date: 10/26/2022 Hospital Day: 2 Reason for Consult: Hyponatremia and hypomagnesemia . Subjective History of present illness:Susana Juares is a 67 y.o. female with significant PMHx of TX, CAD, hypertension, hyperlipidemia, and COPD was admitted yesterday for arrhythmias. Patient states she is SOB and dizzy. Dizziness occurs after taking medications, specifically metoprolol. Patient has been wearing a halter monitor which detected multiple episodes of VT and frequent PVCs. Her episodes got worse after cardiac stent in 06/2022. Patient is followed by Dr. Ward ([facility] Cardiology). Nephrology was consulted due [...] found for: UEOS Sero (more content not included)...[facility]08-02-2023 Note10/28/22 1232 Referral Data Referral Source [...] HHC/SNF/IPR. Patient anticipates return home when medically ready.[facility]08-02-2023 Note10/28/22 1006 Admission Assessment Questions Verify insurance with patient Yes Do you understand medical disease or what brought you into the hospital? Yes Who is your current PCP? Shaikh Roberta MD Can I schedule a follow up [...] Discharge? No Does the patient have a case consultant assigned to them through their insurance? No [...] link and activate MyChart? MyChart already active [facility]08-01-2023 NoteMag and K+ repleted. Cardiology currently planning cardiac cath tomorrow. Patient to be NPO at midnight.[facility]08-01-2023 Note Attestation signed by Amara Daugherty MD at 10/27/2022 7:13 PM As the teaching physician, I have personally performed or re-performed the history of present illness, physical exam and medical decision making activities of the encounter and verified the medical student's documentation. I made pertinent changes as necessary to ensure accurate documentation. Nephrology Progress Note Patient : Susana Juares; 67 y.o. Location: 3116/3116-01 Attending: Viv Livingston MD Admit Date: 10/26/2022 Hospital Day: 1 Reason for Consult: Hyponatremia and hypomagnesemia History of Present Illness: Susana Juares is a 67 y.o. female with significant PMHx of [place], CAD, hypertension, hyperlipidemia, and COPD was admitted yesterday for arrhythmias. Patient states she is SOB and dizzy. Dizziness occurs after taking medications, specifically metoprolol. Patient has been wearing a halter monitor which detected multiple episodes of VT and frequent PVCs. Her episodes got worse after cardiac stent in 06/2022. Patient is followed by Dr. Ward ([facility] Cardiology). Nephrology was consulted due [...] mg /3 mL (0.083 %) nebulizer solution [id number] INHALE 1 (ONE) vial via NEBULIZER FOUR TIMES DAILY Historical Provider, Active albuterol 9 (more content not included)...[facility] 10-27-2022 NoteClinical Nutrition Assessment Name: Susana Juares Date: 1955 Date of Visit: 10/27/22 Reason for assessment: high risk poor oral intakes Information obtained from: patient, medical record, and nursing Medical History No chief complaint on file. Past Medical History: Diagnosis Date Chronic GERD 12/28/2016 Chronic kidney disease COPD (chronic obstructive pulmonary disease) ([facility]) Coronary artery disease Coronary artery disease involving northwestern shoshone coronary artery of northwestern shoshone heart without angina pectoris 12/28/2016 Essential hypertension [...] meals and compliance w/ MNT Zack Triana, ALFREDOMc[facility] NoteHospital Medicine History and Physical 10/27/2022 1:09 AM THE HOSPITALIST TEAM PREFERS TO USE [employer] FOR COMMUNICATION 7AM-7PM. IF I DO NOT RESPOND WITHIN 15 MINUTES, PLEASE PAGE ME/CALL THROUGH THE MANAGER SERVICING. FROM 7PM-7AM, PLEASE PAGE [phone](COVR) Chief Complaint Arrhythmia History of Present Illness Susana Juares is an 67 y.o. female who came from home. She was at cardiac rehab on the and had experienced shortness of breath and dizziness which patient states are usually her only symptoms when she is not feeling well. Patient denied chest pain, palpations, changes in vision, edema, fever, chills. Patient currently without shortness of breath or dizziness. Patient went to [place] [facility] where she was noted to be having frequent PVCs and was having runs of V. tach. Patient states arrhthymias became after cardiac stent in June. Patient follows with [facility] cardiology group. patient was placed on amiodarone infusion and was transferred to [facility] for higher level of care. I discussed with on-call seismograph operator, who recommended continuation of amiodarone infusion, continue home beta-fernando, echo placed for morning, and they will see patient in the morning. Discussed with seismograph operator EKG noting frequent PVCs. Patient with sodium [...] hypokalemia 01/16/2018 History of acute inferior wall TX 01/13/2018 Bladder prolapse, female, acquired 12/28/2016 Chronic GERD 12/28/2016 COPD (chronic obstructive pulmonary disease) ([facility]) 12/28/2016 Coronary artery disease involving northwestern shoshone coronary artery of northwestern shoshone heart without angina pectoris 12/28/2016 Lower back pain 12/28/2016 Severe obesity (BMI 35.0-39.9) with comorbidity ([facility]) 12/28/2016 Shortness of breath 12/28/2016 Essential hypertension 12/14/2016 Mixed hyperlipidemia 12/14/2016 Chest pain 07/08/2022 Assessment and Plan #Cardiac arrhythmia, frequent PVCs #Hx of runs of Vtach at [facility] #Hyponatremia, 125, currently asymptomatic #Hypomagnesia #Normocytic anemia, [...] count VTE Prophylaxis: On (more content not included)...[facility]01-10-2023 Evaluation note* Encounter Date Diagnosis Assessment [...] I will recheck sodium level next visit [facility] Other Evaluation note* Diagnosis Onset Date Resolution Status Anemia acute Hyperkalemia acute Hypertensive nephropathy acu te Hyperuricemia acute Hypomagnesemia acute Hyponatremia acute Stage 3b chronic kidney disease acute Vitamin D deficiency acute [facility] Work Phone: History general Narrative - Reported* Type Description Date Medical History CHRONIC OBSTRUCTIVE PULMONARY DI SEASE Medical History HYPERTENSION Medical History GERD Medical History HYPERLIPIDEMIA Medical History HEART ATTACK Surgical History HYSTERECTOMY Surgical History GALL BLADDER Surgical History TUBES TIED Surgical History 2 HEART STENTS Hospitalization History SEE ABOVE [facility] Other History general Narrative - Reported* Type [...] History SEE ABOVE Hospitalization History V-TACH 3 [facility] Other Summary Purpose Family History Relationship Condition Age at Onset Recorded Date/T abdirizak daughter Hypertension Unknown father Unknown Hypertension Unknown mother Heart disease Unknown History of stroke Unknown Unknown sister Hypertension Unknown Advance Directives Advance Directive Response Recorded Date/ Time Advance Directives No November 16, 2023 9:54am Chief Complaint and Reason for Visit Chief Complaint RENAL 6 MONTH F/U Reason for Visit Anemia Hyperkalemia Hypertensive nephropathy Hyperuricemia Hypomagnesemia Hyponatremia Stage 3b chronic kidney disease Vitamin D deficiency Additional Source Comments REASON FOR VISIT (unrecogniz ed section and content) RENAL CKD 3RENAL 6 month Fol low up INFORMATION SOURCE (unrecogn ized section and content) DATE CREATED AUTHOR 08/07/2022 [facility] DATE CREATED AUTHOR AUTHOR'S ORGANIZ ATION 07/13/2023 [facility] EPIC DATE CREATED AUTHOR AUTHOR'S ORGANIZ ATION 10/16/2023 [facility] Care Teams (unrecognized sec tion and content) Team Status: Active Member Role Status Dates Shaikh Roberta MD Primary Care Provider Active Team Status: Active Member Role Status Dates Shaikh Roberta MD Primary Care Provider Active Start: November 08, 2023 Jackelyn Guillory MD Attending Provider Active Star t: November 08, 2023 Team Status: Inactive Member Role Status Dates Shaikh Roberta MD Primary Care Provider Active Start: November 16, 2023 End: November 16, 2023 Jackelyn Guillory MD Attending Provider Active Star t: November 16, 2023 End: November 16, 2023 Goals (unrecognized section and content) Goals may be documented in a n alternate section FOR RECORDS PERTAINING TO PATIENTS WHO ARE [...] BE BASED ON THE PRIMARY CLINICAL RECORDS. [facility] [employer] [facility]. provides no warranty or guarantee of the accuracy or completeness of information in this document.
[2023-11-23 12:58] LABS: Percent Iron Saturation 5.5 %
== END 2023-11-23 12:14 | disposition home or self-care (01) ==
LOC: LAB 12:13
PROVIDERS: Visit Provider Internal Medicine Nephrology
DX: D64.9 Anemia, unspecified (principal)
CPT/HCPCS: 36415; 82728; 83540; 83550

== ENCOUNTER 2024-01-24 12:48 | Outpatient (OUT) | payer MEDICARE, SELFPAY ==
--- OUTSIDE RECORDS SUMMARY | 2024-01-24 12:56 | XMS_ITS | CCD ---
Author Organization [facility] Care Team Providers Care [employer] Physical [employer] Teacher Name Role Phone Jackelyn Guillory Unavailable JACKELYN GUILLORY Attending Unavailable JACKELYN GUILLORY Admitting Unavailable HOUSE, DR CASTILLO Primary Care Unavailable WEST, DR TIMOTHY Chandler Consulting Unavailable SAMSA ., LUIS Consulting Unavailable BAKHOUS, JACKELYN Consulting Unavailable SAMSA ., LUIS Consulting Unavailable [...] Care Unavailable SAMSA ., LUIS Attending Unavailable [place], DR TIMOTHY Chandler Consulting Unavailable HOUSE, DR CASTILLO Primary Care Unavailable SAMSA ., LUIS Admitting Unavailable SAMSA ., LUIS Consulting Unavailable HOUSE, DR CASTILLO Admitting Unavailable HOUSE, DR CASTILLO Primary Care Unavailable [place], DR CASTILLO Consulting Unavailable HOUSE, DR CASTILLO Attending Unavailable BAKHOUS, MARIOIZ Consulting Unavailable BAKHUMBERTOS, JACKELYN Attending Unavailable BAKHUMBERTOS, AZIZ Admitting Unavailable HOUSE, DR CASTILLO Primary [facility] Consulting Unavailable [facility], DR HUANG Attending Unavailable HOUSE, DR CASTILLO Primary Care Unavailable [facility] Admitting Unavailable SAMSA ., LUIS Consulting Unavailable SAMSA ., LUIS Attending Unavailable SAMSA ., LUIS Admitting Unavailable HOUSE, DR CASTILLO Primary Care Unavailable HOUSE, DR CASTILLO Consulting Unavailable SAMSA ., LUIS Consulting Unavailable MD Jackelyn Guillory Attending Provider [phone] MD Jackelyn Guillory Referring Provider KARO Cheng Primary Care Provid er Jackelyn Guillory Attending Unavailable Jackelyn Guillory Referring Unavailable Argelia Cheng Primary Care Unavaila ble Jackelyn Guillory Admitting Unavailable Shaikh Larios MD Unavailable Trace Kelly MD Primary Care Provider [phone] Skylar ALICEA, Argelia Unavailable [phone] XANDER MUSTAFA Attending Unavailable XANDER MUSTAFA Attending Unavailable XANDER MUSTAFA Attending Unavailable XANDER MUSTAFA Attending Unavailable Trace Kelly MD Primary Care Provider SHAIKH LARIOS Attending Unavailable ARGELIA CHENG Attending Unavailabl e Allergies Allergy Classification Reported Allergen(s) Allergy Type Date of Onset Reaction(s) Facility (9 sources) clopidogrel; Translations: [CLOPIDOGREL] Drug Allergy [facility] (5 sources) hydroCHLOROthiazide; Translations: [HYDROCHLOROTHIAZIDE] Drug Allergy rash [facility] (3 sources) Penicillin; Translations: [penicillin] Drug Allergy [facility] (9 sources) Vancomycin; Translations: [VANCOMYCIN] Drug Allergy anaphylaxis [facility] (2 sources) Substance with sulfonamide structure and antibacterial mechanism of action (substance) Drug allergy Unknown [facility] Other (1 source) clopidogrel Drug Allergy [facility] (1 source) hydroCHLOROthiazide Drug Allergy [facility] (1 source) Vancomycin Drug Allergy [facility] (8 sources) Penicillins; Translations: [Penicillins] Allergy to substance [facility] (4 sources) Sulfonamides (Antibiotic); Translations: [Sulfa (Sulfonamide Antibiotics)] Allergy to substance Unknown Reaction [facility] (1 source) clopidogrel Drug Allergy [facility] (1 source) hydroCHLOROthiazide Drug Allergy [facility] (1 source) Vancomycin Drug Allergy [facility] (4 sources) hydroCHLOROthiazide Drug Allergy [facility] (5 sources) Sodium Chloride; Translations: [SODIUM CHLORIDE] Drug Allergy [facility] (4 sources) Sulfacetamide Drug Allergy [facility] Medications Current Medications Medication Drug Class(es) Dates Sig (Normalized) Sig (Original) [id number] actuat albuterol 0.09 mg/actuat metered dose inhaler (8 sources) beta2-Adrenergic Agonist Start: 11-16-2023 take 1 puff(s) by inhalation every four hours Albuterol Sulfate (Ventolin Hfa) 90 mcg/actuation HFA aerosol inhaler Active 2 PUFF INHALATION Every 4 hours November 16, 2023 12:00am take 2 puff(s) by in halation every four hours for wheezing albuterol HFA 90 mcg/act inhaler Inhale 2 puffs every 4 (four) hours if needed for wheezing Active take 2 puff(s) by in halation every four hours as needed Ventolin HFA 108 (90 Base) MCG/ACT 2 puf f as needed Inhalation every 4 hrs Active albuterol 0.833 mg/ml / ipratropium bromide 0.167 mg/ml inhalation solution (8 sources) Anticholinergic, beta2-Adrenergic Agonist Start: 11-16-2023 take 1 mL by inhalation every six hours Ipratropium-Albuterol Active 3 ML INHALATION Every 6 hours November 16, 2023 12:00am ipratropium-albu terol (Duo-Neb) 0.5-2.5 mg/3 mL nebulizer solution Take 3 mL by nebulization every 6 (six) hours Active aspirin 81 mg delayed release oral tablet (8 sources) Platelet Aggregation Inhibitor, Nonsteroidal Anti-inflammatory Drug Start: 11-16-2023 take 81 mg by mouth once daily Aspirin Active 81 MG PO Daily November 16, 2023 12:00am atorvastatin 80 mg oral tablet (8 sources) HMG-CoA Reductase Inhibitor Start: 10-14-2023 End: 04-11-2024 take 1 tablet by mouth once daily atorvastatin (Lipitor) 80 MG tablet Indications: Other hyperlipidemia (CMS/HCC) Take 1 tablet (80 mg) by mouth Daily 90 tablet 1 10/14/2023 04/11/2024 Active take 1 tablet by rebecca th every twenty-four hours Atorvastatin Calcium 80 MG 1 tablet Oral ly Once a day Active cholecalciferol 0.025 mg oral tablet (6 sources) Vitamin D Start: 01-18-2024 take 1 tablet by mouth once daily cholecalciferol (Vitamin D-3) 25 MCG (1000 UT) tablet Indications: Stage 3a chronic kidney disease (HCC) (CMS/HCC) Take 1 tablet (25 mcg) by mouth Daily 60 tablet 1 01/18/2024 Active End: 01-17-2024 take 1 tablet by mouth in the morning cholecalciferol (Vitamin D-3) 25 MCG (1000 UT) tablet Take 1,000 Units by mouth in the morning. 01/17/2024 Discontinued (Reorder) take 1 capsule by mo uth once daily Cholecalciferol 25 MCG (1000 UT) 1 capsule Orally Once a day for 90 days Active cyclobenzaprine hydrochloride 10 mg oral tablet (4 sources) Muscle Relaxant take 5 mg by mouth three times daily as needed for muscle spasms cyclobenzaprine (Flexeril) 10 MG tablet Take 5 mg by mouth 3 (three) times a day as needed for muscle spasms Active Fluticasone Propion-Salmeterol (8 sources) Corticosteroid, beta2-Adrenergic Agonist Start: 11-16-19 Fluticasone Propion-Salmeterol (Advair Diskus) 250-50 mcg/dose blister with device Active 1 INH INHALATION Twice daily November 16, 2023 12:00am take 1 dose by inhalation once d aily Fluticasone-Salmeterol (Advair Diskus) 250-50 MCG/ACT aerosol powder Inhale 1 Dose 1 (one) time each day Active take 1 puff(s) by in halation twice daily Advair Diskus 250-50 MCG/ACT 1 puff Inha lation Twice a day Active furosemide 20 mg oral tablet (8 sources) Loop Diuretic Start: 11-16-2023 take 20 mg by mouth once daily Furosemide Active 20 MG PO Daily November 16, 2023 12:00am furosemide (Lasi x) 40 MG tablet Take 20 mg by mouth in the morning. Active Furosemide 20 MG as directed Orally Once a day Active Furosemide 40 MG 1 1/2 tablet Orally Once a day Active 24 hr isosorbide mononitrate 30 mg extended release oral tablet (7 sources) Nitrate Vasodilator Start: 11-16-2023 take 30 mg by mouth once daily Isosorbide Mononitrate Active 30 MG PO Daily November 16, 2023 12:00am Magnesium (1 source) take 1 tablet by mouth twice daily Magnesium 250 MG 1 tablet with a meal Orally TWICE A DAY Active magnesium oxide 400 mg oral tablet (3 sources) Start: 11-16-2023 take 400 mg by mouth twice daily Magnesium Oxide Active 400 MG PO Twice daily November 16, 2023 12:00am take 1 tablet by rebecca th every twelve hours Magnesium Oxide 400 MG 1 TABLET Orally TWICE A DAY Active magnesium oxide 600 mg / pyridoxine hydrochloride 25 mg oral tablet (4 sources) take 1 tablet by mouth in the morning magnesium oxide-pyridoxine (Beelith) 362-20 MG tablet Take 1 tablet by mouth in the morning. Active 24 hr metoprolol succinate 100 mg extended release oral tablet (10 sources) beta-Adrenergic Fernando Start: 01-17-20 take 0.5 tablet by mouth once daily metoprolol succinate XL (Toprol-XL) 100 MG 24 hr tablet Take 0.5 tablets (50 mg) by mouth Daily Do not crush or chew. 01/17/2024 Active Start: 11-16-2023 take 100 mg by mouth once natalie y Metoprolol Succinate Active 100 MG PO Daily November 16, 2023 12:00am End: 01-17-2024 take 1 tablet by mouth every twenty-four hours in the morning metoprolol succinate XL (Toprol-XL) 100 MG 24 hr tablet Take 100 mg by mouth in the morning. Do not crush or chew.. 01/17/2024 Discontinued (Dose adjustment) take 1 tablet by rebecca th every twelve hours Metoprolol Tartrate 50 MG 1 tablet with food Orally Twice a day Active olmesartan medoxomil 40 mg oral tablet (8 sources) Angiotensin 2 Receptor Fernando Start: 11-16-2023 take 40 mg by mouth once daily Olmesartan Active 40 MG PO Daily November 16, 2023 12:00am omeprazole 20 mg delayed release oral capsule (8 sources) Proton Pump Inhibitor Start: 11-16-2023 take 20 mg by mouth once daily Omeprazole Active 20 MG PO Daily November 16, 2023 12:00am take 1 tablet by mouth before me altime omeprazole OTC (PriLOSEC OTC) 20 MG EC tablet Take 20 mg by mouth in the morning. Take before meals. Do not crush, chew, or split.. Active take 1 capsule by mouth once ruslan ly Omeprazole 20 MG 1 capsule 30 minutes before morning meal Orally Once a day Active prasugrel 10 mg oral tablet (6 sources) [id number] Platelet Inhibitor Start: 11-16-2023 End: 01-17-2024 take 10 mg by mouth once daily Prasugrel Active 10 MG PO Daily November 16, 2023 12:00am predniSONE 5 mg oral tablet (2 sources) Start: 11-16-2023 take 5 mg by mouth once Prednisone Active 5 MG PO Once November 16, 2023 12:00am Completed/Discontinued Medications Medication Drug Class(es) Dates Sig (Normalized) Sig (Original) ferrous sulfate 325 mg oral tablet (4 sources) End: 01-17-2024 take 1 tablet by mouth at mealtime ferrous sulfate 325 (65 Fe) MG tablet Take 325 mg by mouth in the morning. Take with meals. 01/17/2024 Discontinued (Patient refused) take 1 tablet by rebecca th every twenty-four hours Ferrous Sulfate 325 (65 Fe) MG 1 tablet Orally ONCE A DAY Active Problems Active Problems Problem Classification Problem Date Documented Date Episodic/Chronic Cardiac dysrhythmias (2 sources) Cardiac arrhythmia, unspecified; Translations: [Cardiac arrhythmia, unspecified] Onset: 10-26-2022 Chronic Chronic kidney disease (15 sources) Chronic kidney disease stage 3A ; Translations: [Chronic kidney disease, stage 3a] Onset: 01-08-2022 11-13-2023 Chronic Chronic kidney disease (4 sources) Chronic kidney disease; Translations: [CHRONIC KIDNEY DISEASE STAGE 3A] Onset: 08-06-2022 Chronic obstructive pulmonary disease and bronchiectasis (9 sources) Chronic obstructive pulmonary disease, unspecified; Translations: [Chronic obstructive lung disease] Onset: 12-28-2016 Chronic Coronary atherosclerosis and other heart disease (10 sources) Atherosclerotic heart disease of [place] coronary artery without angina pectoris; Translations: [Coronary arteriosclerosis] Onset: 12-28-2016 Chronic Deficiency and other anemia (3 sources) Anemia, unspecified; Translations: [Anemia, unspecified] Episodic Deficiency and other anemia (2 sources) Anemia; Translations: [Anemia, unspecified] 11-13-2023 Episodic Disorders of lipid metabolism (4 sources) Hyperlipidemia; Translations: [Other hyperlipidemia] Onset: 04-12-2023 04-12-2023 Chronic Essential hypertension (6 sources) Essential hypertension; Translations: [Essential (primary) hypertension] Onset: 12-14-2016 04-12-2023 Chronic Hypertension with complications and secondary hypertension (15 sources) Hypertensive renal disease; Translations: [Hypertensive chronic kidney disease with stage 1 through stage 4 chronic kidney disease, or unspecified chronic kidney disease] Onset: 01-08-2022 Chronic Nutritional deficiencies (6 sources) Vitamin D deficiency; Translations: [Vitamin D deficiency, unspecified] Chronic Other nutritional; endocrine; and metabolic disorders (7 sources) Hypomagnesemia; Translations: [Hypomagnesemia] Onset: 10-27-2022 11-13-2023 Chronic Other nutritional; endocrine; and metabolic disorders (3 sources) Hypomagnesemia; 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 Other nutritional; endocrine; and metabolic disorders (3 sources) Hyperuricemia without signs of inflammatory arthritis and tophaceous disease; Translations: [Other abnormal blood chemistry] Episodic Other nutritional; endocrine; and metabolic disorders (2 sources) Hyperuricemia; Translations: [Hyperuricemia without signs of inflammatory arthritis and tophaceous disease] 11-13-2023 Episodic Past or Other Problems Problem Classification Problem Date Documented Da te Episodic/Chronic Fluid and electrolyte disorders (18 sources) Hyperkalemia; Translations: [Hypo-osmolality and hyponatremia] Onset: 08-06-2022 Episodic Nonspecific chest pain (2 sources) Chest pain, unspecified; Translations: [Chest pain, unspecified] Onset: 10-30-2022 Episodic Screening and history of mental health and substance abuse codes (8 sources) Personal history of nicotine dependence; Translations: [Ex-smoker] Onset: 01-22-2020 Episodic Spondylosis; intervertebral disc disorders; other back problems (4 sources) Low back pain; Translations: [Lower back pain] Onset: 12-28-2016 04-12-2023 Episodic Results Test Name Value Interpretation Reference Range Facility 36on 01-04-2024 36 Patient seen today by Dr. Mustafa. He wants to know if she can stop Effient due to easy bruising/bleeding. Please advise. Thanks. Normal [facility] Office Visiton 01-04-2024 Follow-up visit [id number] MorGabrielSusana A 1955 F Date Provider Department Center 01/04/2024 XANDER FARLEY JUSTIN Garcia Family History Problem Relation Age of Onset Stroke Mother Kidney disease Father Coronary artery disease Paternal Grandfather Family Status - Relation Status Age at Mother Father Paternal Grandfather Level of Service:60095 DC OFFICE/OUTPATIENT ESTABLISHED LOW MDM 20 MIN Normal [facility] Iron binding capacity [Mass/ volume] in Serum or Plasmaon 11-23-2023 Iron binding capacity [Mass/Vol] 365.0 ug/dL 250.0-450.0 [facility] Iron saturation [Mass Fracti on] in Serum or Plasmaon 11-23-2023 Iron saturation [Mass fraction] 5.5 % [facility] - Chemistry and C hemistry - challengeon 11-23-2023 Ferritin [Mass/Vol] 25.0 ng/mL 8.0-252.0 [facility] Iron [Mass/Vol] 20.0 ug/dL Low 50.0-170.0 [facility] Erythrocyte distribution wid th Auto (RBC) [Ratio]on 11-08-2023 Erythrocyte distribution width (RBC) [Ratio] 16.4 % High 11.0-15.0 [facility] Estimated glomerular filtrat ion rate (GFR) non- Americanon 11-08-2023 GFR/1.73 sq M.predicted among non-blacks MDRD (S/P/Bld) [Vol rate/Area] 37 mL/min/{1.73_m2} Low >=60 [facility] Globulin Calc (S) [Mass/Vol] on 11-08-2023 Globulin (S) [Mass/Vol] 3.9 g/dL [facility] Hematocrit Auto (Bld) [Volum e fraction]on 11-08-2023 Hematocrit (Bld) [Volume fraction] 28.1 % Low 36.0-48.0 [facility] Hemoglobin [Mass/volume] in Bloodon 11-08-2023 Hemoglobin (Bld) [Mass/Vol] 8.7 g/dL Low 12.0-16.0 [facility] - Chemistry and C hemistry - challengeon 11-08-2023 Albumin [Mass/Vol] 3.4 g/dL 3.4-5.0 [facility] ALP [Catalytic activity/Vol] 81 U/L 46-116 [facility] ALT [Catalytic activity/Vol] 26 U/L 14-59 [facility] AST [Catalytic activity/Vol] 23 U/L 15-37 [facility] Bilirubin [Mass/Vol] 0.3 mg/dL 0.2-1.0 [facility] Calcium [Mass/Vol] 8.7 mg/dL 8.5-10.1 [facility] Chloride [Moles/Vol] 93 mmol/L Low 98-107 [facility] CO2 [Moles/Vol] 27.4 mmol/L 21.0-32.0 [facility] Creatinine [Mass/Vol] 1.40 mg/dL High 0.55-1.02 [facility] GFR/1.73 sq M.predicted MDRD (S/P/Bld) [Vol rate/Area] 45 mL/min/{1.73_m2} Low >=60 [facility] Glucose [Mass/Vol] 96 mg/dL 74-106 [facility] Magnesium [Mass/Vol] 2.2 mg/dL 1.8-2.4 [facility] Potassium [Moles/Vol] 4.4 mmol/L 3.5-5.1 [facility] Protein [Mass/Vol] 7.3 g/dL 6.4-8.2 [facility] Sodium [Moles/Vol] 128 mmol/L Low 136-145 [facility] Urate [Mass/Vol] 5.6 mg/dL 2.6-6.0 [facility] Urea nitrogen [Mass/Vol] 20.0 mg/dL High 7.0-18.0 [facility] Urea nitrogen/Creatinine [Mass ratio] 14.3 mg/mg [facility] Bilirubin Ql (U) Negative NEGATIVE [facility] Glucose (U) [Mass/Vol] Negative NEGATIVE [facility] Ketones Ql (U) Negative NEGATIVE [facility] pH (U) 7.5 [pH] 5.0-9.0 [facility] Specific gravity (U) [Rel density] 1.010 1.005-1.025 [facility] Urobilinogen Qn (U) 0.2 {Chuy'U}/dL 0.2-1.0 [facility] - Specimen inform ationon 11-08-2023 Appearance (U) CLEAR CLEAR [facility] Color (U) YELLOW YELLOW [facility] - Urinalysison Leukocyte esterase Test strip Ql (U) Negative NEGATIVE [facility] Nitrite Ql (U) Negative NEGATIVE [facility] Protein (U) [Mass/Vol] 11.9 mg/dL <=11.9 [facility] Protein Ql (U) Negative NEG/TRACE [facility] Leukocytes [#/volume] correc maryuri for nucleated erythrocytes in Blood by Automated counon 11-08-2023 WBC corrected for nucl RBC Auto (Bld) [#/Vol] 7.3 10 3/uL 4.0-11.0 [facility] MCH Auto (RBC) [Entitic mass ]on 11-08-2023 MCH (RBC) [Entitic mass] 26.1 pg Low 26.7-34.0 [facility] MCHC Auto (RBC) [Mass/Vol]on 11-08-2023 MCHC (RBC) [Mass/Vol] 31.0 g/dL 29.9-35.2 [facility] MCV Auto (RBC) [Entitic vol] on 11-08-2023 MCV (RBC) [Entitic vol] 84.4 fL 81.0-99.0 [facility] No Panel Informationon 11-07 25-Hydroxy Vitamin D Total 32.6 ng/mL [facility] Comment on above: <20 ng/mL Vit D defi cient20-<30 ng/mL Vit D mroxnaqubqot96-801 ng/mL Vit D sufficient>100 ng/mL Potential Toxicity Parathyroid Hormone (Intact) 106 pg/mL Abnormal 15-65 [facility] Comment on above: [facility]formed [facility] [place] [id number] Director: True Herron PhD, Phone: [phone] Phosphorus Level 3.8 mg/dL 2.6-4.7 [facility] Urine Occult Blood Negative NEGATIVE [facility] Urine Random Creatinine 73.41 mg/dL 20.00-300.00 [facility] Platelet mean volume Auto (B ld) [Entitic vol]on 11-08-2023 Platelet mean volume (Bld) [Entitic vol] 8.6 fL Low 9.5-13.5 [facility] Platelets Auto (Bld) [#/Vol] on 11-08-2023 Platelets (Bld) [#/Vol] 401 10 3/uL 150-450 [facility] RBC Auto (Bld) [#/Vol]on RBC (Bld) [#/Vol] 3.33 10 6/uL Low 4.20-5.40 [facility] Serum or plasma albumin/glob ulin mass ratioon 11-08-2023 Albumin/Globulin [Mass ratio] 0.9 {ratio} [facility] Serum or plasma anion gap de terminationon 11-08-2023 Anion gap [Moles/Vol] 12.0 mmol/L [facility] Urine protein/creatinine rat ioon 11-08-2023 Protein/Creatinine (U) [Ratio] 0.16 [facility] Follow-Upon 10-12-2023 Follow-Up [id number] Susana Juares 1955 F Date Provider Department Center 10/12/2023 XANDER FARLEY Family History Problem Relation Age of Onset Stroke Mother Kidney disease Father Coronary artery disease Paternal Grandfather Family Status - Relation Status Age at Mother Father Paternal Grandfather Level of Service:63372 DC OFFICE/OUTPATIENT ESTABLISHED MOD MDM 30 MIN Normal [facility] Office Visiton 06-29-2023 Follow-up visit [id number] Susana Juares 1955 F Date Provider Department Center 06/29/2023 XANDER FARLEY Family History Problem Relation Age of Onset Stroke Mother Kidney disease Father Coronary artery disease Paternal Grandfather Family Status - Relation Status Age at Mother Father Paternal Grandfather Level of Service:55394 DC OFFICE/OUTPATIENT ESTABLISHED LOW MDM 20 MIN Reason for Visit and Comments: Follow-up [320606] - Holter monitor results Normal [facility] Office Visiton 03-02-2023 Follow-up visit [id number] Susana Juares 1955 F Date Provider Department Center 03/02/2023 Lonny-XANDER MUSTAFA [facility] Family History Problem Relation Age of Onset Stroke Mother Kidney disease Father Coronary artery disease Paternal Grandfather Family Status - Relation Status Age at Mother Father Paternal Grandfather Level of Service:14207 DC OFFICE/OUTPATIENT NEW MODERATE MDM 45-59 MINUTES Normal [facility] PTH INTACTon 08-04-2022 PTH, Intact 41 pg/mL Normal 15-65 [facility] Comment on above: Performed By: #### P THINT ####[facility] [id number] [place] [address]Dr. Osmel Shelton HEMOGRAM AND PLATELon 2022 Hematocrit (Bld) [Volume fraction] 34.6 % Critically low 36.0-48.0 [facility] Comment on above: Performed By: #### H H #### [facility] [address] [address] [address] Osmel Shelton Hemoglobin (Bld) [Mass/Vol] 11.1 g/dL Critically low 12.0-16.0 [facility] Comment on above: Performed By: #### H H #### [facility] [address] [address] [address] Osmel Shelton MCH (RBC) [Entitic mass] 29.3 pg Normal 26.7-34.0 [facility] Comment on above: Performed By: #### H H #### [facility] [address] [address] [address] Osmel Shelton MCHC (RBC) [Mass/Vol] 32.1 g/dL Normal 29.9-35.2 [facility] Comment on above: Performed By: #### H H #### [facility] [address] [address] [address] Osmel Shelton MCV (RBC) [Entitic vol] 91.3 fL Normal 81.0-99.0 [facility] Comment on above: Performed By: #### H H #### [facility] [address] [address] [address] Osmel Shelton PLT 306 103/ul Normal 150-450 [facility] Comment on above: Performed By: #### H H #### [facility] [address] [address] [address] Osmel Shelton RBC 3.79 106/ul Critically low 4.20-5.40 [facility] Comment on above: Performed By: #### H H #### [facility] [address] [place] [address] Dr. Osmel Shelton WBC 4.8 103/ul Normal 4.0-11.0 [facility] Comment on above: Performed By: #### H H #### [facility] [address] [place] [address] Dr. Osmel Shelton MAGNESIUMon 08-03-2022 Magnesium [Mass/Vol] 1.9 mg/dL Normal 1.8-2.4 [facility] Comment on above: Performed By: #### P HOS, MG, CMP, URIC #### [facility] [address] [place] [address] Dr. Osmel Shelton PHOSPHORUSon 08-03-2022 Phosphate [Mass/Vol] 4.4 mg/dL Normal 2.6-4.7 [facility] Comment on above: Performed By: #### P HOS, MG, CMP, URIC #### [facility] [address] [place] [address] Dr. Osmel Shelton PROF 14(COMP METB)on 023 Albumin [Mass/Vol] 3.6 g/dL Normal 3.4-5.0 [facility] Comment on above: Performed By: #### P HOS, MG, CMP, URIC ####[facility] [id number] [place] [address]Dr. Osmel Shelton Albumin/Globulin [Mass ratio] 0.9 {ratio} Normal [facility] Comment on above: Performed By: #### P HOS, MG, CMP, URIC ####[facility] [id number] [place] [address]Dr. Osmel Shelton ALP [Catalytic activity/Vol] 136 U/L Critically high 46-116 [facility] Comment on above: Performed By: #### P HOS, MG, CMP, URIC ####[facility] [id number] [place] [address]Dr. Osmel Shelton ALT [Catalytic activity/Vol] 29 U/L Normal 14-59 [facility] Comment on above: Performed By: #### P HOS, MG, CMP, URIC ####[facility] [address] [place], [place] [address]Dr. Osmel Shelton Anion gap [Moles/Vol] 13.5 mmol/L Normal [facility] Comment on above: Performed By: #### P HOS, MG, CMP, URIC ####[facility] Z[address] [place], [place] [address]Dr. Osmel Shelton AST [Catalytic activity/Vol] 27 U/L Normal 15-37 [facility] Comment on above: Performed By: #### P HOS, MG, CMP, URIC ####[facility] [address] [place], [place] [address]Dr. Osmel Shelton Bilirubin [Mass/Vol] 0.2 mg/dL Normal 0.2-1.0 [facility] Comment on above: Performed By: #### P HOS, MG, CMP, URIC ####[facility] [address] [place], [place] [address]Dr. Osmel Shelton Calcium [Mass/Vol] 9.0 mg/dL Normal 8.5-10.1 [facility] Comment on above: Performed By: #### P HOS, MG, CMP, URIC ####[facility] [address] [place], [place] [address]Dr. Osmel Shelton Chloride [Moles/Vol] 100 mmol/L Normal 98-107 [facility] Comment on above: Performed By: #### P HOS, MG, CMP, URIC ####[facility] Kf[address] [place], [place] [address]Dr. Osmel Shelton CO2 [Moles/Vol] 25.7 mmol/L Normal 21.0-32.0 [facility] Comment on above: Performed By: #### P HOS, MG, CMP, URIC ####[facility] [address] [address]Dr. Osmel Shelton Creatinine [Mass/Vol] 1.40 mg/dL Critically high 0.55-1.02 [facility] Comment on above: Performed By: #### P HOS, MG, CMP, URIC ####[facility] [address] [address]Dr. Osmel Shelton EGFR-AF WELSH 45 mL/min/1.73m2 Critically low >=60 [facility] Comment on above: Performed By: #### P HOS, MG, CMP, URIC ####[facility] [address] [address]Dr. Osmel Shelton EGFR-NON AF WELSH 37 mL/min/1.73m2 Critically low >=60 [facility] Comment on above: Performed By: #### P HOS, MG, CMP, URIC ####[facility] [address] [address]Dr. Osmel Shelton Globulin (S) [Mass/Vol] 4.2 g/dL Normal [facility] Comment on above: Performed By: #### P HOS, MG, CMP, URIC ####[facility] [address] [address]Dr. Osmel Shelton Glucose [Mass/Vol] 101 mg/dL Normal 74-106 [facility] Comment on above: Performed By: #### P HOS, MG, CMP, URIC ####[facility] [address] [address]Dr. Osmel Shelton Potassium [Moles/Vol] 4.2 mmol/L Normal 3.5-5.1 [facility] Comment on above: Performed By: #### P HOS, MG, CMP, URIC ####[facility] [address] [address]Dr. Osmel Shelton Protein [Mass/Vol] 7.8 g/dL Normal 6.4-8.2 [facility] Comment on above: Performed By: #### P HOS, MG, CMP, URIC ####[facility] [address] [address]DrLissett Shelton Sodium [Moles/Vol] 135 mmol/L Critically low 136-145 [facility] Comment on above: Performed By: #### P HOS, MG, CMP, URIC ####[facility] [address] [place], [place] [address]Dr. Osmel Shelton Urea nitrogen [Mass/Vol] 23.0 mg/dL Critically high 7.0-18.0 [facility] Comment on above: Performed By: #### P HOS, MG, CMP, URIC ####[facility] [address] [place], [place] [address]Dr. Osmel Shelton Urea nitrogen/Creatinine [Mass ratio] 16.4 mg/mg Normal [facility] Comment on above: Performed By: #### P HOS, MG, CMP, URIC ####[facility] [address] [place], [place] [address]DrLissett Shelton UA RANDOMon 08-03-2022 Bilirubin Ql (U) Negative Normal NEGATIVE [facility] Comment on above: Performed By: #### U A #### [facility] [address] [place] [address] Dr. Osmel Shelton Clarity (U) CLEAR Normal CLEAR [facility] Comment on above: Performed By: #### U A #### [facility] [address] [place] [address] Dr. Osmel Shelton Color (U) LT. YELLOW Normal YELLOW [facility] Comment on above: Performed By: #### U A #### [facility] [address] [place] [address] Dr. Osmel Shelton Glucose Ql (U) Negative Normal NEGATIVE [facility] Comment on above: Performed By: #### U A #### [facility] [address] [place] [address] Dr. Osmel Shelton Hemoglobin Ql (U) Negative Normal NEGATIVE [facility] Comment on above: Performed By: #### U A #### [facility] [address] [address] [address] Osmel Shelton Ketones Ql (U) Negative Normal NEGATIVE [facility] Comment on above: Performed By: #### U A #### [facility] [address] [place] [address] Dr. Osmel Shelton LEUKOCYTES Negative Normal NEGATIVE [facility] Comment on above: Performed By: #### U A #### [facility] [address] [address] [address] Osmel Shelton Nitrite Ql (U) Negative Normal NEGATIVE [facility] Comment on above: Performed By: #### U A #### [facility] [address] [place] [address] Dr. Osmel Shelton pH (U) 5.5 [pH] Normal 5-9 [facility] Comment on above: Performed By: #### U A #### [facility] [address] [place] [address] Dr. Osmel Shelton SPEC GRAVITY <=1.005 Abnormal 1.005-<=1.025 [facility] Comment on above: Performed By: #### U A #### [facility] [address] [place] [address] Dr. Osmel Shelton UA PROTEIN Negative Normal NEGATIVE/ TRACE [facility] Comment on above: Performed By: #### U A #### [facility] [address] [place] [address] Dr. Osmel Shelton Urobilinogen Qn (U) 0.2 {Chuy'U}/dL Normal 0.2 - 1. 0 [facility] Comment on above: Performed By: #### U A #### [facility] [address] [place] [address] Dr. Osmel Shelton URIC ACID SERUMon 08-03-2022 Urate [Mass/Vol] 8.4 mg/dL Critically high 2.6-6.0 [facility] Comment on above: Performed By: #### P HOS, MG, CMP, URIC ####[facility] [address] [address]Dr. Osmel Shelton URINE T PROTEIN CREAT RATIOo n 08-03-2022 Protein (U) [Mass/Vol] 4.6 mg/dL Normal <=12.0 [facility] Comment on above: Performed By: #### U RTPCR #### [facility] [address] [address] [address] Osmel Shelton UR PROT CREAT RAT 0.09 Normal [facility] Comment on above: Performed By: #### U RTPCR #### [facility] [address] [address] [address] Osmel Shelton URINE CREAT 50.21 mg/dL Normal 20.00-300.00 [facility] Comment on above: Performed By: #### U RTPCR #### [facility] [address] [place] [address] Dr. Osmel Shelton VITAMIN D 25 OHon 08-03-2022 VIT D 25-OH 20.9 ng/mL Normal [facility] Comment on above: Performed By: #### V ITAD ####[facility] [address] [address]Dr. Osmel Shelton VIT D RANGES SEE BELOW Normal [facility] Comment on above: Result Comment: <20 ng/mL Vit D deficient 20 - <30 ng/mL Vit D insufficient 30 - 100 ng/mL Vit D sufficient >100 ng/mL Potential Toxicity Performed By: #### V ITAD ####[facility] [address] [address]Dr. Osmel Shelton CBC AUTO DIFFon 07-09-2022 BASO # 0.0 103/ul Normal 0.0-0.1 [facility] Comment on above: Performed By: #### C BC #### [facility] [address] [address] [address] Osmel Shelton Basophils/100 WBC (Bld) 0.5 % Normal 0.2-2.0 [facility] Comment on above: Performed By: #### C BC #### [facility] [address] [place] [address] Dr. Osmel Shelton EO # 0.2 103/ul Normal 0.0-0.7 [facility] Comment on above: Performed By: #### C BC #### [facility] [address] [place] [address] Dr. Osmel Shelton Eosinophils/100 WBC (Bld) 2.9 % Normal 0.9-7.0 [facility] Comment on above: Performed By: #### C BC #### [facility] [address] [place] [address] Dr. Osmel Shelton Erythrocyte distribution width (RBC) [Ratio] 14.3 % Normal 11.0-15.0 [facility] Comment on above: Performed By: #### C BC #### [facility] [address] [place] [address] Dr. Osmel Shelton Hematocrit (Bld) [Volume fraction] 34.4 % Critically low 36.0-48.0 [facility] Comment on above: Performed By: #### C BC #### [facility] [address] [place] [address] Dr. Osmel Shelton Hemoglobin (Bld) [Mass/Vol] 11.4 g/dL Critically low 12.0-16.0 [facility] Comment on above: Performed By: #### C BC #### [facility] [address] [place] [address] Dr. Osmel Shelton IG # 0.02 10e3/ul Normal 0.00-0.03 [facility] Comment on above: Performed By: #### C BC #### [facility] [address] [place] [address] Dr. Osmel Shelton IG % 0.4 % Normal 0.0-0.5 [facility] Comment on above: Performed By: #### C BC #### [facility] [address] [place] [address] Dr. Osmel Shelton LYMPH # 1.3 103/ul Normal 1.2-3.8 [facility] Comment on above: Performed By: #### C BC #### [facility] [address] [place] [address] Dr. Osmel Shelton Lymphocytes/100 WBC (Bld) 23.0 % Normal 20.5-60.0 [facility] Comment on above: Performed By: #### C BC #### [facility] [address] [place] [address] Dr. Osmel Shelton MANUAL DIFF REQ NO Normal [facility] Comment on above: Performed By: #### C BC #### [facility] [address] [place] [address] Dr. Osmel Shelton MCH (RBC) [Entitic mass] 29.8 pg Normal 26.7-34.0 [facility] Comment on above: Performed By: #### C BC #### [facility] [address] [place] [address] Dr. Osmel Shelton MCHC (RBC) [Mass/Vol] 33.1 g/dL Normal 29.9-35.2 [facility] Comment on above: Performed By: #### C BC #### [facility] [address] [place] [address] Dr. Osmel Shelton MCV (RBC) [Entitic vol] 89.8 fL Normal 81.0-99.0 [facility] Comment on above: Performed By: #### C BC #### [facility] [address] [place] [address] Dr. Osmel Shelton MONO # 0.6 103/ul Normal 0.3-0.8 [facility] Comment on above: Performed By: #### C BC #### [facility] [address] [place] [address] Dr. Osmel Shelton Monocytes/100 WBC (Bld) 11.0 % Normal 1.7-12.0 [facility] Comment on above: Performed By: #### C BC #### [facility] [address] [place] [address] Dr. Osmel Shelton NEUT # 3.4 103/ul Normal 1.4-6.5 [facility] Comment on above: Performed By: #### C BC #### [facility] [address] [place] [address] Dr. Osmel Shelton Neutrophils/100 WBC (Bld) 62.2 % Normal 43.0-75.0 [facility] Comment on above: Performed By: #### C BC #### [facility] [address] [address] [address] Osmel Shelton Platelet mean volume (Bld) [Entitic vol] 9.4 fL Critically low 9.5-13.5 [facility] Comment on above: Performed By: #### C BC #### [facility] [address] [address] [address] Osmel Shelton PLT 327 103/ul Normal 150-450 [facility] Comment on above: Performed By: #### C BC #### [facility] [address] [address] [address] Osmel Shelton RBC 3.83 106/ul Critically low 4.20-5.40 [facility] Comment on above: Performed By: #### C BC #### [facility] [address] [address] [address] Osmel Shelton WBC 5.5 103/ul Normal 4.0-11.0 [facility] Comment on above: Performed By: #### C BC #### [facility] [address] [address] [address] Osmel Shelton PROF CHEM 8 (BAS METB)on Anion gap [Moles/Vol] 11.7 mmol/L Normal [facility] Comment on above: Performed By: #### B MP ####[facility] [address] [address]DrLissett Shelton Calcium [Mass/Vol] 8.8 mg/dL Normal 8.5-10.1 [facility] Comment on above: Performed By: #### B MP ####[facility] [address] [address]DrLissett Shelton Chloride [Moles/Vol] 99 mmol/L Normal 98-107 [facility] Comment on above: Performed By: #### B MP ####[facility] [address] [address]DrLissett Shelton CO2 [Moles/Vol] 27.1 mmol/L Normal 21.0-32.0 [facility] Comment on above: Performed By: #### B MP ####[facility] [address] [address]Dr. Osmel Shelton Creatinine [Mass/Vol] 1.38 mg/dL Critically high 0.55-1.02 [facility] Comment on above: Performed By: #### B MP ####[facility] [address] [address]Dr. Osmel Shelton EGFR-AF WELSH 46 mL/min/1.73m2 Critically low >=60 [facility] Comment on above: Performed By: #### B MP ####[facility] [address] [address]Dr. Osmel Shelton EGFR-NON AF WELSH 38 mL/min/1.73m2 Critically low >=60 [facility] Comment on above: Performed By: #### B MP ####[facility] [address] [place], [place] [address]Dr. Osmel Shelton Glucose [Mass/Vol] 105 mg/dL Normal 74-106 [facility] Comment on above: Performed By: #### B MP ####[facility] [address] [place], [place] [address]Dr. Osmel Shelton Potassium [Moles/Vol] 4.8 mmol/L Normal 3.5-5.1 [facility] Comment on above: Performed By: #### B MP ####[facility] [address] [place], [place] [address]Dr. Osmel Nikita Sodium [Moles/Vol] 133 mmol/L Critically low 136-145 [facility] Comment on above: Performed By: #### B MP ####[facility] [address] [place], [place] [address]Dr. Osmel Shelton Urea nitrogen [Mass/Vol] 19.0 mg/dL Critically high 7.0-18.0 [facility] Comment on above: Performed By: #### B MP ####[facility] [address] [place], [place] [address]Dr. Osmel Shelton Urea nitrogen/Creatinine [Mass ratio] 13.8 mg/mg Normal [facility] Comment on above: Performed By: #### B ####[facility] [address] [place], [place] [address]ItLissett Shelton PULMONARY FUNCTION TESTon PULMONARY FUNCTION TEST [...] O2 indicated. Clinical correlation required. Normal [facility] US KIDNEYSon 04-15-2022 US KIDNEYS EXAMINATION: [...] TIMOTHY GUIDRY Date: 2022-04-15 16:21 Normal [facility] CT LUNG CANCER SCREENINGon 1 CT [...] TIMOTHY GUIDRY Date: 2022-01-19 14:40 Normal [facility] CBC AUTO DIFFon 01-05-2022 BASO # 0.1 103/ul Normal 0.0-0.1 [facility] Comment on above: Performed By: #### C BC #### [facility] [address] [address] [address] Osmel Shelton Basophils/100 WBC (Bld) 1.0 % Normal 0.2-2.0 [facility] Comment on above: Performed By: #### C BC #### [facility] [address] [address] [address] Osmel Shelton EO # 0.2 103/ul Normal 0.0-0.7 [facility] Comment on above: Performed By: #### C BC #### [facility] [address] [address] [address] Osmel Shelton Eosinophils/100 WBC (Bld) 3.6 % Normal 0.9-7.0 [facility] Comment on above: Performed By: #### C BC #### [facility] [address] [address] [address] Osmel Shelton Erythrocyte distribution width (RBC) [Ratio] 14.1 % Normal 11.0-15.0 [facility] Comment on above: Performed By: #### C BC #### [facility] [address] [address] [address] Osmel Shelton Hematocrit (Bld) [Volume fraction] 36.5 % Normal 36.0-48.0 [facility] Comment on above: Performed By: #### C BC #### [facility] [address] [place] [address] Dr. Osmel Shelton Hemoglobin (Bld) [Mass/Vol] 11.8 g/dL Critically low 12.0-16.0 [facility] Comment on above: Performed By: #### C BC #### [facility] [address] [place] [address] Dr. Osmel Shelton IG # 0.02 10e3/ul Normal 0.00-0.03 [facility] Comment on above: Performed By: #### C BC #### [facility] [address] [place] [address] Dr. Osmel Shelton IG % 0.3 % Normal 0.0-0.5 [facility] Comment on above: Performed By: #### C BC #### [facility] [address] [place] [address] Dr. Osmel Shelton LYMPH # 1.3 103/ul Normal 1.2-3.8 [facility] Comment on above: Performed By: #### C BC #### [facility] [address] [place] [address] Dr. Osmel Shelton Lymphocytes/100 WBC (Bld) 21.4 % Normal 20.5-60.0 [facility] Comment on above: Performed By: #### C BC #### [facility] [address] [place] [address] Dr. Osmel Shelton MANUAL DIFF REQ NO Normal [facility] Comment on above: Performed By: #### C BC #### [facility] [address] [place] [address] Dr. Osmel Shelton MCH (RBC) [Entitic mass] 29.3 pg Normal 26.7-34.0 [facility] Comment on above: Performed By: #### C BC #### [facility] [address] [address] [address] Osmel Shelton MCHC (RBC) [Mass/Vol] 32.3 g/dL Normal 29.9-35.2 [facility] Comment on above: Performed By: #### C BC #### [facility] [address] [address] [address] Osmel Shelton MCV (RBC) [Entitic vol] 90.6 fL Normal 81.0-99.0 [facility] Comment on above: Performed By: #### C BC #### [facility] [address] [address] [address] Osmel Shelton MONO # 0.7 103/ul Normal 0.3-0.8 [facility] Comment on above: Performed By: #### C BC #### [facility] [address] [place] [address] Dr. Osmel Shelton Monocytes/100 WBC (Bld) 11.2 % Normal 1.7-12.0 [facility] Comment on above: Performed By: #### C BC #### [facility] [address] [place] [address] Dr. Osmel Shelton NEUT # 3.7 103/ul Normal 1.4-6.5 [facility] Comment on above: Performed By: #### C BC #### [facility] [address] [place] [address] Dr. Osmel Shelton Neutrophils/100 WBC (Bld) 62.5 % Normal 43.0-75.0 [facility] Comment on above: Performed By: #### C BC #### [facility] [address] [address] [address] Osmel Shelton Platelet mean volume (Bld) [Entitic vol] 9.4 fL Critically low 9.5-13.5 [facility] Comment on above: Performed By: #### C BC #### [facility] [address] [address] [address] Osmel Shelton PLT 364 103/ul Normal 150-450 [facility] Comment on above: Performed By: #### C BC #### [facility] [address] [address] [address] Osmel Shelton RBC 4.03 106/ul Critically low 4.20-5.40 [facility] Comment on above: Performed By: #### C BC #### [facility] [address] [address] [address] Osmel Shelton WBC 5.9 103/ul Normal 4.0-11.0 [facility] Comment on above: Performed By: #### C BC #### [facility] [address] [address] [address] Osmel Shelton LIPID PROFILEon 01-05-2022 CHOL-HDL RATIO NORM SEE BELOW Normal [facility] Comment on above: Result Comment: 3.3 - 4.4 LOW RISK 4.4 - 7.1 AVERAGE RISK 7.1 - 11.0 MODERATE RISK >11.0 HIGH RISK Performed By: #### C MP, LIPID #### [facility] [address] [address] [address] Osmel Shelton Cholesterol [Mass/Vol] 149 mg/dL Normal <=200 [facility] Comment on above: Performed By: #### C MP, LIPID #### [facility] [address] [address] [address] Osmel Shelton Cholesterol in HDL [Mass/Vol] 75 mg/dL Critically high 40-60 [facility] Comment on above: Performed By: #### C MP, LIPID #### [facility] [address] [address] [address] Osmel Shelton Cholesterol in LDL [Mass/Vol] 60.4 mg/dL Normal [facility] Comment on above: Performed By: #### C MP, LIPID #### [facility] [address] [address] [address] Osmel Shelton Cholesterol.total/Ch olesterol in HDL [Mass ratio] 2.0 {ratio} Normal [facility] Comment on above: Performed By: #### C MP, LIPID #### [facility] [address] [address] [address] Osmel Shelton HDL NORMAL > or = 60 mg/dl - LOW CARDIOVASCULAR RISK <40 mg/dl - HIGH CARDIOVASCULAR RISK Normal [facility] Comment on above: Performed By: #### C MP, LIPID #### [facility] [address] [address] [address] Osmel Shelton LDL CALC NORMAL SEE BELOW Normal [facility] Comment on above: Result Comment: <100 mg/dl OPTIMAL 100 - 129 mg/dl NEAR OR ABOVE OPTIMAL 130 - 159 mg/dl BORDERLINE HIGH 160 - 189 mg/dl HIGH >190 mg/dl VERY HIGH Performed By: #### C MP, LIPID #### [facility] [address] [address] [address] Osmel Shelton Triglyceride [Mass/Vol] 68 mg/dL Normal <=150 [facility] Comment on above: Performed By: #### C MP, LIPID #### [facility] [address] [address] [address] Osmel Shelton VLDL CALC 13.6 mg/dL Normal [facility] Comment on above: Performed By: #### C MP, LIPID #### [facility] [address] [place] [address] Dr. Osmel Shelton PROF 14(COMP METB)on 022 Albumin [Mass/Vol] 3.6 g/dL Normal 3.4-5.0 [facility] Comment on above: Performed By: #### C MP, LIPID #### [facility] [address] [address] [address] Osmel Shelton Albumin/Globulin [Mass ratio] 0.9 {ratio} Normal [facility] Comment on above: Performed By: #### C MP, LIPID #### [facility] [address] [place] [address] Dr. Osmel Shelton ALP [Catalytic activity/Vol] 152 U/L Critically high 46-116 [facility] Comment on above: Performed By: #### C MP, LIPID #### [facility] [address] [place] [address] Dr. Osmel Shelton ALT [Catalytic activity/Vol] 29 U/L Normal 14-59 [facility] Comment on above: Performed By: #### C MP, LIPID #### [facility] [address] [address] [address] Osmel Shelton Anion gap [Moles/Vol] 11.1 mmol/L Normal [facility] Comment on above: Performed By: #### C MP, LIPID #### [facility] [address] [address] [address] Osmel Shelton AST [Catalytic activity/Vol] 23 U/L Normal 15-37 [facility] Comment on above: Performed By: #### C MP, LIPID #### [facility] [address] [address] [address] Osmel Shelton Bilirubin [Mass/Vol] 0.3 mg/dL Normal 0.2-1.0 [facility] Comment on above: Performed By: #### C MP, LIPID #### [facility] [address] [place] [address] Dr. Osmel Shelton Calcium [Mass/Vol] 8.9 mg/dL Normal 8.5-10.1 [facility] Comment on above: Performed By: #### C MP, LIPID #### [facility] [address] [place] [address] Dr. Osmel Shelton Chloride [Moles/Vol] 96 mmol/L Critically low 98-107 [facility] Comment on above: Performed By: #### C MP, LIPID #### [facility] [address] [place] [address] Dr. Osmel Shelton CO2 [Moles/Vol] 28.2 mmol/L Normal 21.0-32.0 [facility] Comment on above: Performed By: #### C MP, LIPID #### [facility] [address] [place] [address] Dr. Osmel Shelton Creatinine [Mass/Vol] 1.46 mg/dL Critically high 0.55-1.02 [facility] Comment on above: Performed By: #### C MP, LIPID #### [facility] [address] [place] [address] Dr. Osmel Shelton EGFR-AF WELSH 43 mL/min/1.73m2 Critically low >=60 [facility] Comment on above: Performed By: #### C MP, LIPID #### [facility] [address] [address] [address] Osmel Shelton EGFR-NON AF WELSH 36 mL/min/1.73m2 Critically low >=60 [facility] Comment on above: Performed By: #### C MP, LIPID #### [facility] [address] [address] [address] Osmel Shelton Globulin (S) [Mass/Vol] 4.2 g/dL Normal [facility] Comment on above: Performed By: #### C MP, LIPID #### [facility] [address] [address] [address] Osmel Shelton Glucose [Mass/Vol] 95 mg/dL Normal 74-106 [facility] Comment on above: Performed By: #### C MP, LIPID #### [facility] [address] [address] [address] Osmel Shelton Potassium [Moles/Vol] 5.3 mmol/L Critically high 3.5-5.1 [facility] Comment on above: Performed By: #### C MP, LIPID #### [facility] [address] [address] [address] Osmel Shelton Protein [Mass/Vol] 7.8 g/dL Normal 6.4-8.2 [facility] Comment on above: Performed By: #### C MP, LIPID #### [facility] [address] [address] [address] Osmel Shelton Sodium [Moles/Vol] 130 mmol/L Critically low 136-145 [facility] Comment on above: Performed By: #### C MP, LIPID #### [facility] [address] [address] [address] Osmel Shelton Urea nitrogen [Mass/Vol] 22.0 mg/dL Critically high 7.0-18.0 [facility] Comment on above: Performed By: #### C MP, LIPID #### [facility] [address] [address] [address] Osmel Shelton Urea nitrogen/Creatinine [Mass ratio] 15.1 mg/mg Normal [facility] Comment on above: Performed By: #### C MP, LIPID #### [facility] [address] [address] [address] Osmel Shelton Vital Signs Date Time Vital Sign Value Performing Clinician Facility 01-17-2024 13:25-0400 Body mass index (BMI) [Ratio] 34.76 kg/m2 Argelia Cheng CONVEYOR FEEDER Work Phone: [facility] 01-17-2024 13:25-0400 Body temperature 97.81 [degF] Argelia Cheng CONVEYOR FEEDER Work Phone: [facility] 01-17-2024 13:25-0400 Body weight 89 kg Argelia Cheng CONVEYOR FEEDER Work Phone: [facility] 01-17-2024 13:25-0400 Diastolic blood pressure 72 mm[Hg] Argelia Cheng CONVEYOR FEEDER Work Phone: [facility] 01-17-2024 13:25-0400 Heart rate 84 /min Argelia Cheng CONVEYOR FEEDER Work Phone: [facility] 01-17-2024 13:25-0400 SaO2% (BldA) [Mass fraction] 98 % Argelia Cheng CONVEYOR FEEDER Work Phone: [facility] 01-17-2024 13:25-0400 Systolic blood pressure 130 mm[Hg] Argelia Cheng CONVEYOR FEEDER Work Phone: [facility] 12-20-2023 15:00-0400 Diastolic blood pressure 75 mm[Hg] MD Jackelyn Guillory Work Phone: [facility] 12-20-2023 15:00-0400 Systolic blood pressure 136 mm[Hg] MD Jackelyn Guillory Work Phone: [facility] 12-17-2023 14:48-0400 Heart rate 81 /min MD Jackelyn Guillory Work Phone: [facility] 11-16-2023 15:26-0400 Body height 154.94 cm [facility] 11-16-2023 15:26-0400 Body mass index (BMI) [Ratio] 38.4 kg/m2 [facility] 11-16-2023 15:26-0400 Body temperature 96.1 [degF] [facility] 11-16-2023 15:26-0400 Body weight 92.24 kg [facility] 11-16-2023 15:26-0400 Diastolic blood pressure 79 mm[Hg] [facility] 11-16-2023 15:26-0400 Respiratory rate 20 /min [facility] 11-16-2023 15:26-0400 Systolic blood pressure 171 mm[Hg] [facility] 03-09-2023 11:20-0500 Body height 154.94 cm Azsasha Wagners Other [facility] [employer] Other 03-09-2023 11:20-0500 Body mass index (BMI) [Ratio] 38.62 kg/m2 Azsasha Bakhumbertos Other [employer] [facility] [employer] Other 03-09-2023 11:20-0500 Body temperature 96.7 [degF] Aziz Bakhous Other [employer] Other 03-09-2023 11:20-0500 Body weight 92.72 kg Azsasha Bakhous Other [employer] Other 03-09-2023 11:20-0500 Diastolic blood pressure 60 mm[Hg] Aziz Bakhous Other [employer] Other 03-09-2023 11:20-0500 Respiratory rate 18 /min Aziz Bakhous Other [employer] Other 03-09-2023 11:20-0500 SaO2% (BldA) [Mass fraction] 97 % Aziz Bakhous Other [employer] Other 03-09-2023 11:20-0500 Systolic blood pressure 100 mm[Hg] Azsasha Wagners Other [employer] Other 04-07-2022 15:20-0500 Body height 154.94 cm Jackelyn Wagners Other [employer] Other 04-07-2022 15:20-0500 Body mass index (BMI) [Ratio] 39.67 kg/m2 Azsasha Wagners Other [employer] Other 04-07-2022 15:20-0500 Body temperature 97.7 [degF] Jackelyn Wagners Other [employer] Other 04-07-2022 15:20-0500 Body weight 95.26 kg Jackelyn Wagners Other [employer] Other 04-07-2022 15:20-0500 Diastolic blood pressure 90 mm[Hg] Jackelyn Wagners Other [employer] Other 04-07-2022 15:20-0500 Respiratory rate 18 /min Jackelyn Wagners Other [employer] Other 04-07-2022 15:20-0500 SaO2% (BldA) [Mass fraction] 97 % Jackelyn Bakhumbertos Other [employer] Other 04-07-2022 15:20-0500 Systolic blood pressure 140 mm[Hg] Jackelyn Bakhumbertos Other [employer] Other Encounters Encounter Date Encounter Type Care Provider Facility Start: 01-17-2024 End: 01-17-2024 Bamboo flowsheet Argelia Cheng CONVEYOR FEEDER Work Phone: [facility] Start: 01-17-2024 End: 01-17-2024 Bamboo flowsheet Argelia Cheng CONVEYOR FEEDER Work Phone: [facility] Start: 01-17-2024 End: 01-18-2024 Refmarquise Kelly MD Work Phone: [facility] Comment on above: 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) Start: 01-17-2024 End: 01-17-2024 Assay of hemosiderin, quant Argelia Cheng CONVEYOR FEEDER Work Phone: [facility] Work Phone: Start: 01-17-2024 End: 01-17-2024 Patient encounter procedure Argelia Cheng CONVEYOR FEEDER Work Phone: [facility] Comment on above: Routine general medi korin examination at health care facility (Primary Dx) Start: 01-04-2024 End: 01-04-2024 ambulatory [facility] Start: 12-20-2023 End: 12-20-2023 Discharged Recurring MD Jackelyn Guillory Work Phone: [facility] Work Phone: Start: 12-20-2023 End: 12-20-2023 ambulatory MD Jackelyn Guillory Work Phone: [facility] Work Phone: Start: 11-23-2023 Non-patient / Non-visit MD Rowan Guillory [facility] [employer] Work Phone: Start: 11-16-2023 End: 11-16-2023 ambulatory [facility] Work Phone: Start: 11-16-2023 End: 11-16-2023 Patient encounter procedure [facility] Roger Work Phone: Start: 11-08-2023 Non-patient / Non-visit [facility] Work Phone: Start: 10-12-2023 End: 10-12-2023 ambulatory [facility] Start: 06-29-2023 End: 06-29-2023 ambulatory [facility] Start: 04-12-2023 End: 04-12-2023 ambulatory [facility] Not Available Start: 03-09-2023 End: 03-09-2023 ambulatory Jackelyn Wagners Other [facility] [employer] Other Start: 03-09-2023 Office outpatient vi sit 25 minutes Jackelyn Guillory [facility] Ne[facility] Roger Start: 03-02-2023 End: 03-02-2023 ambulatory [facility] Start: 08-03-2022 End: 08-04-2022 ambulatory AZIZ BAKHUMBERTOS Facility:[facility]1 Start: 07-15-2022 Encounter for other preprocedural examination DR REINA WARD [facility] Start: 07-09-2022 End: 07-10-[address] REINA WARD Facility:[facility] Start: 07-09-2022 End: 07-10-2022 Encounter for other preprocedural examination DR REINA WARD Facility:[facility] Start: 07-09-2022 ambulatory LUIS SAMSA . Facility :[facility] Start: 05-20-2022 End: 05-21-2022 ambulatory LUIS SAMSA . Facility:[facility] Start: 04-27-2022 End: 07-08-2022 ambulatory LUIS SAMSA . Facility:[facility] Start: 04-15-2022 End: 04-16-2022 ambulatory AZIZ BAKHUMBERTOS Facility:[facility] Start: 04-07-2022 End: 04-07-2022 ambulatory Aziz Bakhous Other [employer] Other Start: 04-07-2022 Office outpatient ne w 30 minutes Jackelyn XIE [facility] Start: 01-23-2022 End: 01-24-2022 ambulatory LUIS SCHUMACHER . Facility:[facility] Start: 01-19-2022 End: 01-20-2022 ambulatory LUIS SCHUMACHER . Facility:[facility] Start: 01-05-2022 End: 01-06-[address] ANNA CRAFT Facility:[facility] Plan of Treatment Date Care Activity Detail Author Start: 01-16-2025 Medicare Annual Wellness (AWV) Medicare Annual Wellness (AWV) [facility] Start: 01-16-2025 Pneumococcal Vaccine : 65+ Years (1 of 2 - PCV) Pneumococcal Vaccine: 65+ Years (1 of 2 - PCV) [facility] Comment on above: Postponed from 05/25 (Patient Refused) Start: 04-18-2024 End: 04-18-2024 Patient encounter procedure 04/18/2024 2:00 PM EST Office Visit [facility] [address] [place] [address] Argelia Cheng, [place] [address] [place] [address] [facility] Start: 04-12-2024 Screening for malign ant neoplasm of colon Colorectal Cancer Screening [facility] Comment on above: Postponed from 05/25 (Patient Refused) Start: 03-13-2024 Influenza vaccination Influenza Vacc ine (#1) [facility] Comment on above: Postponed from 11/27 (Patient Refused) Start: 01-15-2024 Medicare Annual Wellness (AWV) Medicare Annual Wellness (AWV) [facility] Start: 11-28-2023 Influenza vaccination Influenza Vacc ine (#1) [facility] Start: 1961 Pneumococcal Vaccine : 65+ Years (1 of 2 - PCV) Pneumococcal Vaccine: 65+ Years (1 of 2 - PCV) [facility] Start: 1955 Screening for malign ant neoplasm of colon [facility] Renal function 2000 panel - Serum or Plasma [facility] Payers Date Payer Category Payer Medicare (Managed Care) [employer] [id number] 1961 Medicare [id number] 1959 Self-pay 1955 Unknown [id number]. 2.593 1953 Unknown [id number] [id number]. 2.593 1953 Unknown [id number] [id number]. 2.593 1953 Unknown [id number] [id number]. 2.593 1953 Unknown [id number] [id number]. 2.593 1953 Unknown [id number] [id number]. 2.593 1953 Unknown [id number] [id number]. 2.593 1953 Unknown [id number] [id number]. 2.593 1953 Unknown [id number] [id number]. 2.1259 1953 Unknown [id number] [id number]. 2.1259 Unknown [id number] [id number]. 2.593 Unknown [id number] [id number]. 2.531 Unknown [id number] Social History Date Type Detail Facility Unknown if ever smoked [employer] Other Start: 04-08-2023 End: 04-12-2023 Sex Assigned At [facility] [employer] Other Start: 04-12-2023 End: 11-16-2023 Tobacco smoking status MSIS Ex-smoker (finding) [facility] Start: 1955 Sex Assigned At Female F [facility] Start: 03-29-1985 End: 03-29-2015 History of tobacco use Current smoker [facility] Start: 03-29-1985 End: 03-29-2015 History of tobacco use Cigarette Smoker [facility] Start: 04-08-2023 End: 04-12-2023 Cigarettes smoked current (pack per day) - Reported 1 [facility] Start: 04-12-2023 Tobacco use and exposure Smokeless tobacco non-user [facility] Start: 04-12-2023 Alcoholic beverage intake Lifetime non-drinker (finding) [facility] Do you feel stress - tense, restless, nervous, or anxious, or unable to sleep at night because your mind is troubled all the time - these days [OSQ] Only a little [facility] Start: 1955 Sex assigned at Not on file N S Healthcare Goals Date Patient Goal Desired Activity /State Clinical Notes 04-07-2022 to 01-18-2024 Note Date & Type Note Facility 01-18-2024 Evaluation note Diagnosis Stage 3a chronic kidney disease (HCC) (CMS/HCC)- Primary Other hyperlipidemia (CMS/HCC) Coronary artery disease involving stockbridge coronary artery of stockbridge heart without angina pectoris (CMS/HCC) Stage 3a chronic kidney disease (HCC) (CMS/HCC)- Primary documented in this encounter [id number] History of Present illness Narrative* Argelia Cheng, CONVEYOR FEEDER - 01/17/2024 1:00 PM EDT Images from the original note were not included. Subjective : Chief Complaint: Susana Juares is an 68 y.o. female here for an annual wellness visit. Specialists: Cardiology- [facility], [place] Pulmonology- Dr. Schumacher Nephrology- Dr. Madrid I have reviewed and reconciled the history and medication list with the patient today. Current Outpatient Medications Medication Sig Dispense Refill albuterol HFA 90 mcg/act inhaler Inhale 2 puffs every 4 (four) hours if needed for wheezing aspirin (Adult Aspirin Regimen) 81 MG EC tablet Take 81 mg by mouth in the morning. atorvastatin (Lipitor) 80 MG tablet Take 1 tablet (80 mg) by mouth Daily 90 tablet 1 cholecalciferol (Vitamin D-3) 25 MCG (1000 UT) tablet Take 1,000 Units by mouth in the morning. cyclobenzaprine (Flexeril) 10 MG tablet Take 5 mg by mouth 3 (three) times a day as needed for muscle spasms Fluticasone-Salmeterol (Advair Diskus) 250-50 MCG/ACT aerosol powder Inhale 1 Dose 1 (one) time each day furosemide (Lasix) 40 MG tablet Take 20 mg by mouth in the morning. ipratropium-albuterol (Duo-Neb) 0.5-2.5 mg/3 mL nebulizer solution Take 3 mL by nebulization every 6 (six) hours isosorbide mononitrate ER (Imdur) 30 MG 24 hr tablet Take 30 mg by mouth in the morning. Do not crush or chew.. magnesium oxide-pyridoxine (Beelith) 362-20 MG tablet Take 1 tablet by mouth in the morning. metoprolol succinate XL (Toprol-XL) 100 MG 24 hr tablet Take 0.5 tablets (50 mg) by mouth Daily Do not crush or chew. olmesartan (BENIcar) 40 MG tablet Take 40 mg by mouth in the morning. omeprazole OTC (PriLOSEC OTC) 20 MG EC tablet Take 20 mg by mouth in the morning. Take before meals. Do not crush, chew, or split.. No current facility-administered medications for this visit. Review of Systems Constitutional: Negative for activity change, appetite change, chills, diaphoresis, fatigue, fever and unexpected weight change. HENT: Negative for congestion, ear pain, rhinorrhea, sinus pressure, sinus pain, sneezing, sore throat, trouble swallowing and voice change. Eyes: Negative for visual disturbance. Respiratory: Negative for cough, chest tightness, shortness of breath and wheezing. Cardiovascular: Negative for chest pain, palpitations and leg swelling. Gastrointestinal: Negative for abdominal distention, abdominal pain, blood in stool, constipation, diarrhea and vomiting. Genitourinary: Negative for decreased urine volume, dysuria, flank pain, frequency, hematuria and urgency. Musculoskeletal: Negative for arthralgias, gait problem, joint swelling and myalgias. Skin: Negative for rash. Neurological: Negative for dizziness, tremors, syncope, weakness, light- headedness and headaches. Psychiatric/Behavioral: Negative for decreased concentration and suicidal ideas. The patient is notnervous/anxious. Hematological: Does not bruise/bleed easily. Endocrine: Negative for cold intolerance, heat intolerance, polydipsia, polyphagia and polyuria. List of current healthcare providers: Patient Care Team: Trace Kelly MD as PCP - General (Family Medicine) Shaikh Ric MD as PCP - Alexx Cheng NP as Nurse Practitioner (Family Medicine) Medicare Annual Visit Objective : BP 130/72 Pulse 84 Temp 97.8 F (Temporal) Wt 196 lb 3.2 oz SpO2 98% BMI 34.76 kg/m No results found. Physical Exam Vitals reviewed. Constitutional: Appearance: Normal appearance. HENT: Head: Normocephalic and atraumatic. Right Ear: Tympanic membrane normal. Left Ear: Tympanic membrane normal. Nose: Nose normal. Mouth/Throat: Mouth: Mucous membranes are moist. Pharynx: Oropharynx is clear. Eyes: Pupils: Pupils are equal, round, and reactive to light. Cardiovascular: Rate and Rhythm: Normal rate and regular rhythm. Pulses: Normal pulses. Heart sounds: Normal heart sounds. Pulmonary: Effort: Pulmonary effort is normal. Breath sounds: Normal breath sounds. Abdominal: General: Abdomen is flat. Bowel sounds are normal. Palpations: Abdomen is soft. Musculoskeletal: General: Normal range of motion. Cervical back: Normal range of motion. Skin: General: Skin is warm and dry. Capillary Refill: Capillary refill takes less than 2 seconds. Neurological: General: No focal deficit present. Mental Status: She is alert and oriented to person, place, and time. Psychiatric: Mood and Affect: Mood normal. Behavior: Behavior normal. Assessment/Plan : The following health maintenance schedule was reviewed with the patient and provided in printed form in the after visit summary: Health Maintenance Topic Date Due Influenza Vaccine (1) 03/13/2024 (Originally 11/28/2023) Colorectal Cancer Screening 04/12/2024 (Originally 1955) Pneumococcal Vaccine: 65+ Years (1 of 2 - PCV) 01/16/2025 (Originally 1959) Medicare Annual Wellness (AWV) 01/16/2025 Mammogram Discontinued Advance Care Planning Information provided on Advanced Care Planning. No orders of the defined types were placed in this encounter. Electronically signed by Argelia Cheng NP on January 17, 2024 * Argelia Cheng NP - 01/17/2024 1:00 PM EDT Images from the original note were not included. Subjective : Chief Complaint: Susana Juares is an 68 y.o. female here for an annual wellness visit. I have reviewed and reconciled the history and medication list with the patient today. Current Outpatient Medications Medication Sig Dispense Refill albuterol HFA 90 mcg/act inhaler Inhale 2 puffs every 4 (four) hours if needed for wheezing aspirin (Adult Aspirin Regimen) 81 MG EC tablet Take 81 mg by mouth in the morning. atorvastatin (Lipitor) 80 MG tablet Take 1 tablet (80 mg) by mouth Daily 90 tablet 1 cholecalciferol (Vitamin D-3) 25 MCG (1000 UT) tablet Take 1,000 Units by mouth in the morning. cyclobenzaprine (Flexeril) 10 MG tablet Take 5 mg by mouth 3 (three) times a day as needed for muscle spasms Fluticasone-Salmeterol (Advair Diskus) 250-50 MCG/ACT aerosol powder Inhale 1 Dose 1 (one) time each day furosemide (Lasix) 40 MG tablet Take 20 mg by mouth in the morning. ipratropium-albuterol (Duo-Neb) 0.5-2.5 mg/3 mL nebulizer solution Take 3 mL by nebulization every 6 (six) hours isosorbide mononitrate ER (Imdur) 30 MG 24 hr tablet Take 30 mg by mouth in the morning. Do not crush or chew.. magnesium oxide-pyridoxine (Beelith) 362-20 MG tablet Take 1 tablet by mouth in the morning. metoprolol succinate XL (Toprol-XL) 100 MG 24 hr tablet Take 0.5 tablets (50 mg) by mouth Daily Do not crush or chew. olmesartan (BENIcar) 40 MG tablet Take 40 mg by mouth in the morning. omeprazole OTC (PriLOSEC OTC) 20 MG EC tablet Take 20 mg by mouth in the morning. Take before meals. Do not crush, chew, or split.. No current facility-administered medications for this visit. Review of Systems List of current healthcare providers: Patient Care Team: Trace Kelly MD as PCP - General (Family Medicine) Shaikh Ric MD as PCP - Alexx Cheng NP as Nurse Practitioner (Family Medicine) Medicare Annual Visit Objective : BP 130/72 Pulse 84 Temp 97.8 F (Temporal) Wt 196 lb 3.2 oz SpO2 98% BMI 34.76 kg/m No results found. Physical Exam Assessment/Plan : The following health maintenance schedule was reviewed with the patient and provided in printed form in the after visit summary: Health Maintenance Topic Date Due Influenza Vaccine (1) 03/13/2024 (Originally 11/28/2023) Colorectal Cancer Screening 04/12/2024 (Originally 1955) Pneumococcal Vaccine: 65+ Years (1 of 2 - PCV) 01/16/2025 (Originally 1961) Medicare Annual Wellness (AWV) 01/16/2025 Mammogram Discontinued Advance Care Planning Provided patient with information on advance care planning. No orders of the defined types were placed in this encounter. 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 Pt denies chest pain, palpatation. Pt says that her kidney doctor has had her on iv infusions because of her low iron. Patient still has PVC's as seen on her blood pressure monitor at home. No symptoms other than shortness of breath which is her baseline. Patient kept blood pressure log and it was reviewed at visit. Patient states that her blood pressure is high in the morning, and then she gets dizzy once she takes her medicine and her BP drops. She feels light headed when BP is low and her mid day BP is low while early AM is normal to high. 10/12/23 Patient was still on amiodarone. her [...] and effient. She was recently seen at [facility] as a transfer from [facility] for complaints of symptomatic wide-complex tachycardia [...] kidney disease COPD (chronic obstructive pulmonary disease) ([facility]) Coronary artery disease Coronary artery disease involving stockbridge coronary artery of stockbridge heart without angina pectoris 12/28/2016 Essential hypertension [...] Intimate Partner Violence: Not At Risk (10/26/2022) [place] Safety & Environment Fear of Current or Ex-Partner: No Emotionally Abused: Not on file Physically Abused: Not on file Sexually Abused: Not on file Physically or Sexually Abused: Not on file Depression: Not on file Housing Stability: Low Risk (10/26/2022) Housing Stability Vital Sign Unable to Pay for Housing in the Last Year: Not on file Number of Places Lived in the (more content not included)...[facility]07-16-2024 NoteUT Electrophysiology Consult Note Reason for visit: [...] and effient. She was recently seen at [facility] as a transfer from [facility] for complaints of symptomatic wide-complex tachycardia [...] kidney disease COPD (chronic obstructive pulmonary disease) ([facility]) Coronary artery disease Coronary artery disease involving stockbridge coronary artery of stockbridge heart without angina pectoris 12/28/2016 Essential hypertension [...] %) nebulizer solution INHA (more content not included)...[facility]04-02-2024 NoteUT Electrophysiology Consult Note Reason for visit: [...] and effient. She was recently seen at [facility] as a transfer from [facility] for complaints of symptomatic wide-complex tachycardia [...] kidney disease COPD (chronic obstructive pulmonary disease) ([facility]) Coronary artery disease Coronary artery disease involving stockbridge coronary artery of stockbridge heart without angina pectoris 12/28/2016 Essential hypertension [...] Intimate Partner Violence: Not At Risk (10/26/2022) [place] Safety & Environment Fear of Current or [...] by mouth in t (more content not included)...[facility] [facility]12-12-2023 Evaluation note* Encounter Date Diagnosis Assessment Notes Treatment Notes Treatment Clinical Notes Feb, Hypertensive nephropathy (ICD-10 - I12.9) Blood pressure is well controlled. He has a patient to follow low-salt diet and to monitor blood pressure at home Feb, Stage 3b chronic kidney disease (ICD-10 - N18.32) Likely from hypertensive nephropathy and h/o NSAID use and long history of smoking with possible arterionephroscleros is. UA is benign. No proteinuria no hematuria. Blood pressure and volume status are well controlled.Patient already on ARB Patient remains on the [...] deficiency (ICD-10 - E55.9) continue VD supplement [facility] Other 12-05-2023 NoteUT Electrophysiology Consult Note Reason [...] and effient. She was recently seen at [facility] as a transfer from [facility] for complaints of symptomatic wide-complex tachycardia [...] not occurred since. She was seen by Hai ALICEA and recc a 30-day event monitor [...] kidney disease COPD (chronic obstructive pulmonary disease) ([facility]) Coronary artery disease Coronary artery disease involving stockbridge coronary artery of stockbridge heart without angina pectoris 12/28/2016 Essential hypertension [...] the morning. cholecalciferol (Vitamin D-3) 50 MCG (2000 UT) tablet 1 (one) time each day at the same time. cyclobenzaprine (Flexeril) 10 mg tablet Take 10 mg by mouth if needed in the morning, at noon, and at bedtime. ferrous sulfate 324 (more content not included)...[facility]01-10-2023 Evaluation note* Encounter Date Diagnosis Assessment Notes [...] I will recheck sodium level next visit [facility] Other Evaluation note* Diagnosis Onset Date Resolution Status Anemia acute Hyperkalemia acute Hypertensive nephropathy acu te Hyperuricemia acute Hypomagnesemia acute Hyponatremia acute Stage 3b chronic kidney disease acute Vitamin D deficiency acute [facility] Work Phone: Evaluation note* Diagnosis Stage 3a chronic kidney disease (HCC) (CMS/HCC)- Primary Other hyperlipidemia (CMS/HCC) Coronary artery disease involving stockbridge coronary artery of stockbridge heart without angina pectoris (CMS/HCC) Routine general medical examination at health care facility- Primary Routine general medical examination at a health care facility documented in this encounter [facility] Narrative - Reported* Type Description Date Medical History CHRONIC OBSTRUCTIVE PULMONARY DI SEASE Medical History HYPERTENSION Medical History GERD Medical History HYPERLIPIDEMIA Medical History HEART ATTACK Surgical History HYSTERECTOMY Surgical History GALL BLADDER Surgical History TUBES TIED Surgical History 2 HEART STENTS Hospitalization History SEE ABOVE [facility] Other History general Narrative - Reported* Type [...] History SEE ABOVE Hospitalization History V-TACH 3 [facility] Other Summary Purpose Family History No Family History Records Found Relationship Condition Age at Onset Recorded Date/T abdirizak daughter Hypertension Unknown father Unknown Hypertension Unknown mother Heart disease Unknown History of stroke Unknown Unknown sister Hypertension Unknown Advance Directives No Advanced Directives Records Found Advance Directive Response Recorded Date/ Time Advance Directives No November 16, 2023 9:54am Chief Complaint and Reason for Visit Chief Complaint RENAL 6 MONTH F/U Reason for Visit Anemia Hyperkalemia Hypertensive nephropathy Hyperuricemia Hypomagnesemia Hyponatremia Stage 3b chronic kidney disease Vitamin D deficiency Chief Complaint RENAL 6 MONTH F/U D64.9, N18.32 Reason for Visit Anemia Hyperkalemia Hypertensive nephropathy Hyperuricemia Hypomagnesemia Hyponatremia Stage 3b chronic kidney disease Vitamin D deficiency Additional Source Comments REASON FOR VISIT (unrecogniz ed section and content) Reason Comments Annual Exam Annual wellness Reason Onset Date Comments Med Refill 01/17/2024 INFORMATION SOURCE (unrecogn ized section and content) DATE CREATED AUTHOR 08/07/2022 [facility] DATE CREATED AUTHOR AUTHOR'S ORGANIZ ATION 12/22/2023 [facility] DATE CREATED AUTHOR AUTHOR'S ORGANIZ ATION 01/18/2024 [facility] DATE CREATED AUTHOR AUTHOR'S ORGANIZ ATION 01/19/2024 [facility] EPIC Care Teams (unrecognized sec tion and content) Team Status: Active Member Role Status Dates Shaikh Ric MD Primary Care Provider Active Team Status: Active Member Role Status Dates Shaikh Ric MD Primary Care Provider Active Start: November 08, 2023 Jackelyn Guillory MD Attending Provider Active Star t: November 08, 2023 Team Status: Inactive Member Role Status Dates Shaikh Ric MD Primary Care Provider Active Start: November 16, 2023 End: November 16, 2023 Jackelyn Guillory MD Attending Provider Active Star t: November 16, 2023 End: November 16, 2023 Team Status: Active Member Role Status Dates KARO Santos Primary Care Provider Ac tive Team Status: Active Member Role Status Dates Jackelyn Guillory MD Attending Provider Active Star t: November 23, 2023 Shaikh Ric MD Primary Care Provider Active Start: November 23, 2023 Team Status: Inactive Member Role Status Dates Jackelyn Guillory MD Attending Provider, Referring Provider Active Start: December 20, 2023 End: December 20, 2023 Argelia N Cheng , [employer]YOR [employer]ER-C Primary Care Provider Active Start: November 282023 End: December 20, 2023 [employer] Physical Education Teacher Relationship Specialty Start Date End Date Shaikh Larios MD [address] [place] [address] PCP - Alexx FLOWER 04/29/23 Trace Kelly MD [address] [place] [address] PCP - General Family Medicine 11/10/23 Argelia Cheng NP [address] [place] [address] Nurse Practitioner Family Medicine 11/10/23 [employer] Physical Education Teacher Relationship Specialty Start Date End Date Shaikh Larios MD [address] [place] [phone] PCP Ana Lilia Coffey MA 04/29/23 Trace Kelly MD [address] [place] [address] PCP - General Family Medicine 01/17/24 Argelia Cheng NP [address] [place] [address] Nurse Practitioner Family Medicine 11/10/23 [employer] Physical Education Teacher Relationship Specialty Start Date End Date Shaikh Larios MD [address] [place] [address] PCP Ana Lilia Coffey MA 04/29/23 Trace Kelly MD [address] [place] [address] PCP - General Family Medicine 01/17/24 Argelia Cheng NP [address] [place] [address] Nurse Practitioner Family Medicine 11/10/23 Goals (unrecognized section and content) Goals may [...] BE BASED ON THE PRIMARY CLINICAL RECORDS. [facility]. provides no warranty or guarantee of the accuracy or completeness of information in this document.
[2024-01-24] MEDS: ALBUTEROL SULFATE 2.5 MG/3 ML VIAL NEB IH (14:13)
--- NOTE | 2024-01-24 14:16 | RT_ITS ---
[facility] Test Date: 2024-01-24 Pat Name: CHIARA EDUARDO Department: Room: - Gender: Female Concert Pianist: Frank Calderón RRT : 1955 Requested By: Brien Coughlin Order Number: [id number] Reading MD: Brien Coughlin Interpretive Statements Pulmonary function testing was completed according to ATS criteria. Findings were considered accurate and reproducible. Both pre- and post-bronchodilator values utilized for spirometry. Spirometry (based on pre-bronchodilator values): -FEV1/FVC: Reduced @ 53% -FEV1: Severely reduced @ 43% -FVC: Reduced @ 61% -There is a positive bronchodilator response in FVC. Lung volumes by plethysmography (based on pre-bronchodilator values): -RV: Increased @ 184% -TLC: Increased @ 123% Diffusion capacity: -DLCO: Moderately-severe reduction @ 55% when corrected for Hb 11g/dL Flow-volume loop: -Severe obstructive pattern Comparison from 01/18/2023: -FEV1 relatively unchanged from 41% -TLC: relatively unchanged from 130% -DLCO: Mild decline from 61% Impressions: -Spirometry suggests severe obstruction. There is a positive bronchodilator response. An elevated RV and TLC suggest air trapping and hyperinflation respectively. There is a moderately reduced diffusion capacity. Overall study suggests COPD with a bronchodilator response or asthma-COPD overlap. Clinical correlation required. Electronically Signed On 01-26-2024 17:53:48 EDT by Brien Coughlin
--- NOTE | 2024-01-24 14:49 | CT_ITS ---
[address] [address] Patient Name: CHIARA EDUARDO MRN: [id number] date: 1955 Sex: F Assigned Patient Location: CARD Current Patient Location: Accession/Order Number: [id number] Exam Date: 01/24/2024 15:00 Report Date: 01/26/2024 06:07 At the request of: LUIS SCHUMACHER Procedure: CT lung screening low-dose EXAMINATION: CT lung screening low-dose HISTORY: History Of Nicotine Dependence COMPARISON: CT lung screening 01/20/2023 TECHNIQUE: Axial, Coronal, and Sagittal images were created without the administration of IV contrast material. Dose reduction techniques were achieved by using automated exposure control and/or adjustment of mA and/or kV according to patient size and/or use of iterative reconstruction technique. FINDINGS: LUNGS: Several small sub-5 mm nodules scattered within the lungs; a few are calcified but most are noncalcified. No new nodules, acute infiltrates, or suspicious findings. PLEURA: No mass, effusion, or pneumothorax. VASCULATURE: No abnormality. TEODORO: No mass or pathologic adenopathy. MEDIASTINUM: No mass or pathologic adenopathy. CARDIAC: No enlargement, pericardial thickening, or pericardial effusion. Coronary Artery calcifications: Coronary calcifications are moderate. AORTA: No aneurysm or dissection. CHEST WALL: No mass or axillary adenopathy BONES: No bone lesion or fracture. LIMITED ABDOMEN: No suspicious findings. Limited images of the upper abdomen. OTHER: Negative. CT/CT lung screening low-dose IMPRESSION: 1. Lung-RADS 2- Benign Appearance or Behavior. Nodules with a very low likelihood of becoming a clinically active cancer due to size or lack of growth. Follow-up CT Chest in 1 year. Electronically authenticated by: SHAMIKA WHITLEY Date: 01/26/2024 06:07
== END 2024-01-24 12:49 | disposition home or self-care (01) ==
LOC: CARD 12:48
PROVIDERS: Visit Provider Internal Medicine
DX: Z79.899 Other long term (current) 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 (principal); Z23 Encounter for immunization; Z87.891 Personal history of nicotine dependence
CPT/HCPCS: 36415; 71271; 85018; 94060; 94726; 94729

== ENCOUNTER 2024-02-02 10:32 | Outpatient (OUT) | payer MEDICARE, SELFPAY ==
--- OUTSIDE RECORDS SUMMARY | 2024-02-02 10:52 | XMS_ITS | CCD ---
Author Organization [facility] Care Team Providers Care Exceptional Children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 Name Role Phone Jackelyn Guillory Unavailable JACKELYN [...] Care Unavailable SAMSA ., LUIS Attending Unavailable PARKHILL, DR TIMOTHY Chandler Consulting Unavailable HOUSE, DR CASTILLO Primary Care Unavailable SAMSA ., LUIS Admitting Unavailable SAMSA ., LUIS Consulting Unavailable HOUSE, DR CASTILLO Admitting Unavailable HOUSE, DR CASTILLO Primary Care Unavailable STRATTON, DR CASTILLO Consulting Unavailable HOUSE, DR CASTILLO Attending Unavailable BAKHOUS, MARIOIZ Consulting Unavailable BAKHUMBERTOS, JACKELYN Attending Unavailable BAKHUMBERTOS, AZIZ Admitting Unavailable HOUSE, DR CASTILLO Primary Care [facility]available [facility] DR HUANG Consulting [facility] HUANG Attending Unavailable HOUSE, DR CASTILLO Primary Care Unavailable [facility] DR HUANG Admitting Unavailable SAMSA ., LUIS Consulting Unavailable SAMSA ., LUIS Attending Unavailable SAMSA ., LUIS Admitting Unavailable HOUSE, DR CASTILLO Primary Care Unavailable HOUSE, DR CASTILLO Consulting Unavailable SAMSA ., LUIS Consulting Unavailable MD Jackelyn Guillory Attending Provider [phone] MD Jackelyn Guillory Referring Provider KARO Cheng Primary Care Provid er Jackeyln Guillory Attending Unavailable Jackelyn Guillory Referring Unavailable Argelia Cheng Primary Care Unavaila ble Jackelyn Guillory Admitting Unavailable Shaikh Larios MD Unavailable Trace Kelly MD Primary Care Provider Skylar ALICEA, Argelia Unavailable XANDER MUSTAFA Attending Unavailable XANDER MUSTAFA Attending Unavailable XADNER MUSTAFA Attending Unavailable XANDER MUSTAFA Attending Unavailable Trace Kelly MD Primary Care Provider SHAIKH LARIOS Attending Unavailable ARGELIA CHENG Attending Unavailabl e Allergies Allergy Classification Reported Allergen(s) Allergy Type Date of Onset Reaction(s) Facility (10 sources) clopidogrel; Translations: [CLOPIDOGREL] Drug Allergy [facility] (5 sources) hydroCHLOROthiazide; Translations: [HYDROCHLOROTHIAZIDE] Drug Allergy rash [facility] (3 sources) Penicillin; Translations: [penicillin] Drug Allergy [facility] Repository (10 sources) Vancomycin; Translations: [VANCOMYCIN] Drug Allergy anaphylaxis [facility] (2 sources) Substance with sulfonamide structure and antibacterial mechanism of action (substance) Drug allergy Unknown [facility] Other (1 source) clopidogrel Drug Allergy [facility] Repository (1 source) hydroCHLOROthiazide Drug Allergy [facility] Repository (1 source) Vancomycin Drug Allergy [facility] Repository (9 sources) Penicillins; Translations: [Penicillins] Allergy to substance [facility] (4 sources) Sulfonamides (Antibiotic); Translations: [Sulfa (Sulfonamide Antibiotics)] Allergy to substance Unknown Reaction [facility] (1 source) clopidogrel Drug Allergy [facility] Repository (1 source) hydroCHLOROthiazide Drug Allergy [facility] Repository (1 source) Vancomycin Drug Allergy [facility] Repository (5 sources) hydroCHLOROthiazide Drug Allergy [facility] (6 sources) Sodium Chloride; Translations: [SODIUM CHLORIDE] Drug Allergy [facility] (5 sources) Sulfacetamide Drug Allergy [facility] Medications Current Medications Medication Drug Class(es) Dates Sig (Normalized) Sig (Original) [id number] 200 actuat albuterol 0.09 mg/actuat metered dose inhaler (9 sources) beta2-Adrenergic Agonist Start: 11-16-2023 take 1 [...] / ipratropium bromide 0.167 mg/ml inhalation solution (9 sources) Anticholinergic, beta2-Adrenergic Agonist Start: 11-16-2023 take 1 mL by inhalation every six hours Ipratropium-Albuterol Active 3 ML INHALATION Every 6 hours November 16, 2023 12:00am ipratropium-albu terol (Duo-Neb) 0.5-2.5 mg/3 mL nebulizer solution Take 3 mL by nebulization every 6 (six) hours Active aspirin 81 mg delayed release oral tablet (9 sources) Platelet Aggregation Inhibitor, Nonsteroidal Anti-inflammatory Drug Start: 11-16-2023 take 81 mg by mouth once daily Aspirin Active 81 MG PO Daily November 16, 2023 12:00am atorvastatin 80 mg oral tablet (9 sources) HMG-CoA Reductase Inhibitor Start: 10-14-2023 End: [...] day Active cholecalciferol 0.025 mg oral tablet (7 sources) Vitamin D Start: 01-18-2024 take 1 [...] Active cyclobenzaprine hydrochloride 10 mg oral tablet (5 sources) Muscle Relaxant take 5 mg by mouth three times daily as needed for muscle spasms cyclobenzaprine (Flexeril) 10 MG tablet Take 5 mg by mouth 3 (three) times a day as needed for muscle spasms Active Fluticasone Propion-Salmeterol (9 sources) Corticosteroid, beta2-Adrenergic Agonist Start: 11-16-19 Fluticasone [...] day Active furosemide 20 mg oral tablet (9 sources) Loop Diuretic Start: 11-16-2023 take 20 [...] mononitrate 30 mg extended release oral tablet (8 sources) Nitrate Vasodilator Start: 11-16-2023 take 30 [...] / pyridoxine hydrochloride 25 mg oral tablet (5 sources) take 1 tablet by mouth in the morning magnesium oxide-pyridoxine (Beelith) 362-20 MG tablet Take 1 tablet by mouth in the morning. Active 24 hr metoprolol succinate 100 mg extended release oral tablet (11 sources) beta-Adrenergic Fernando Start: 01-17-20 take 0.5 [...] Active olmesartan medoxomil 40 mg oral tablet (9 sources) Angiotensin 2 Receptor Fernando Start: 11-16-2023 take 40 mg by mouth once daily Olmesartan Active 40 MG PO Daily November 16, 2023 12:00am omeprazole 20 mg delayed release oral capsule (9 sources) Proton Pump Inhibitor Start: 11-16-2023 take [...] unspecified] Onset: 10-26-2022 Chronic Chronic kidney disease (16 sources) Chronic kidney disease stage 3A ; Translations: [Chronic kidney disease, stage 3a] Onset: 01-08-2022 11-13-2023 Chronic Chronic kidney disease (4 sources) Chronic kidney disease; Translations: [CHRONIC KIDNEY DISEASE STAGE 3A] Onset: 08-06-2022 Chronic obstructive pulmonary disease and bronchiectasis (10 sources) Chronic obstructive pulmonary disease, unspecified; Translations: [Chronic obstructive lung disease] Onset: 12-28-2016 Chronic Coronary atherosclerosis and other heart disease (11 sources) 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; Translations: [Coronary arteriosclerosis] Onset: 12-28-2016 Chronic Deficiency and other anemia (3 sources) Anemia, unspecified; Translations: [Anemia, unspecified] Episodic Deficiency and other anemia (2 sources) Anemia; Translations: [Anemia, unspecified] 11-13-2023 Episodic Disorders of lipid metabolism (5 sources) Hyperlipidemia; Translations: [Other hyperlipidemia] Onset: 04-12-2023 04-12-2023 Chronic Essential hypertension (7 sources) Essential hypertension; Translations: [Essential (primary) hypertension] Onset: 12-14-2016 04-12-2023 Chronic Hypertension with complications and secondary hypertension (15 sources) Hypertensive renal disease; Translations: [Hypertensive chronic kidney disease with stage 1 through stage 4 chronic kidney disease, or unspecified chronic kidney disease] Onset: 01-08-2022 Chronic Nutritional deficiencies (6 sources) Vitamin D deficiency; Translations: [Vitamin D deficiency, unspecified] Chronic Other nutritional; endocrine; and metabolic disorders (8 sources) Hypomagnesemia; Translations: [Hypomagnesemia] Onset: 10-27-2022 11-13-2023 [...] Da te Episodic/Chronic Fluid and electrolyte disorders (19 sources) Hyperkalemia; Translations: [Hypo-osmolality and hyponatremia] Onset: 08-06-2022 Episodic Nonspecific chest pain (2 sources) Chest pain, unspecified; Translations: [Chest pain, unspecified] Onset: 10-30-2022 Episodic Screening and history of mental health and substance abuse codes (9 sources) Personal history of nicotine dependence; Translations: [Ex-smoker] Onset: 01-22-2020 Episodic Spondylosis; intervertebral disc disorders; other back problems (5 sources) Low back pain; Translations: [Lower back pain] Onset: 12-28-2016 04-12-2023 Episodic Results Test Name Value Interpretation Reference Range Facility ALL HEMOGLOBINon 01-24-2024 Hemoglobin (Bld) [Mass/Vol] 11 g/dL Low 12.0 - 16.0 g/dL [facility] Interpretation and review of laboratory results Abnormal [facility] 36on 01-04-2024 36 Patient seen today by Dr. Mustafa. He wants to know if she can stop Effient due to easy bruising/bleeding. Please advise. Thanks. Normal [facility] Office Visiton 01-04-2024 Follow-up visit [id number] Susana Juares Brown 1955 F Date Provider Department Center 01/04/2024 [facility]XANDER MUSTAFA JUSTIN Garcia Family History Problem Relation Age of Onset Stroke Mother Kidney disease Father Coronary artery disease Paternal Grandfather Family Status - Relation Status Age at Mother Father Paternal Grandfather Level of Service:99558 SD OFFICE/OUTPATIENT ESTABLISHED LOW MDM 20 MIN Normal [facility] Iron binding capacity [Mass/ volume] in Serum or Plasmaon 11-23-2023 Iron binding capacity [Mass/Vol] 365.0 ug/dL 250.0-450.0 [facility] Iron saturation [Mass Fracti on] in Serum or Plasmaon 11-23-2023 Iron saturation [Mass fraction] 5.5 % [facility] Laboratory - Chemistry and C hemistry - challengeon 11-23-2023 Ferritin [Mass/Vol] 25.0 ng/mL 8.0-252.0 [facility] Iron [Mass/Vol] 20.0 ug/dL Low 50.0-170.0 [facility] Erythrocyte distribution wid th Auto (RBC) [Ratio]on 11-08-2023 Erythrocyte distribution width (RBC) [Ratio] 16.4 % High 11.0-15.0 [facility] Estimated glomerular filtrat ion rate (GFR) non- Americanon 11-08-2023 GFR/1.73 sq M.predicted among non-blacks MDRD (S/P/Bld) [Vol rate/Area] 37 mL/min/{1.73_m2} Low >=60 [facility] Globulin Calc (S) [Mass/Vol] on 11-08-2023 Globulin (S) [Mass/Vol] 3.9 g/dL [facility] Hematocrit Auto (Bld) [Volum e fraction]on 11-08-2023 Hematocrit (Bld) [Volume fraction] 28.1 % Low 36.0-48.0 [facility] Hemoglobin [Mass/volume] in Bloodon 11-08-2023 Hemoglobin (Bld) [Mass/Vol] 8.7 g/dL Low 12.0-16.0 [facility] Laboratory - Chemistry and C hemistry - challengeon 11-08-2023 Albumin [Mass/Vol] 3.4 g/dL 3.4-5.0 [facility] ALP [Catalytic activity/Vol] 81 U/L 46-116 [facility] ALT [Catalytic activity/Vol] 26 U/L 14-59 [facility] AST [Catalytic activity/Vol] 23 U/L 15-37 [facility] Bilirubin [Mass/Vol] 0.3 mg/dL 0.2-1.0 [facility] Calcium [Mass/Vol] 8.7 mg/dL 8.5-10.1 [facility] Chloride [Moles/Vol] 93 mmol/L Low 98-107 [facility] CO2 [Moles/Vol] 27.4 mmol/L 21.0-32.0 [facility] Creatinine [Mass/Vol] 1.40 mg/dL High 0.55-1.02 [facility] GFR/1.73 sq M.predicted MDRD (S/P/Bld) [Vol rate/Area] 45 mL/min/{1.73_m2} Low >=60 [facility] Glucose [Mass/Vol] 96 mg/dL 74-106 [facility] Magnesium [Mass/Vol] 2.2 mg/dL 1.8-2.4 [facility] Potassium [Moles/Vol] 4.4 mmol/L 3.5-5.1 [facility] Protein [Mass/Vol] 7.3 g/dL 6.4-8.2 [facility] Sodium [Moles/Vol] 128 mmol/L Low 136-145 [facility] Urate [Mass/Vol] 5.6 mg/dL 2.6-6.0 [facility] Urea nitrogen [Mass/Vol] 20.0 mg/dL High 7.0-18.0 [facility] Urea nitrogen/Creatinine [Mass ratio] 14.3 mg/mg [facility] Bilirubin Ql (U) Negative NEGATIVE [facility] Glucose (U) [Mass/Vol] Negative NEGATIVE [facility] Ketones Ql (U) Negative NEGATIVE [facility] pH (U) 7.5 [pH] 5.0-9.0 [facility] Specific gravity (U) [Rel density] 1.010 1.005-1.025 [facility] Urobilinogen Qn (U) 0.2 {Chuy'U}/dL 0.2-1.0 [facility] Laboratory - Specimen inform ationon 11-08-2023 Appearance (U) CLEAR CLEAR [facility] Color (U) YELLOW YELLOW [facility] Laboratory - Urinalysison Leukocyte esterase Test strip Ql (U) Negative NEGATIVE [facility] Nitrite Ql (U) Negative NEGATIVE [facility] Protein (U) [Mass/Vol] 11.9 mg/dL <=11.9 [facility] Protein Ql (U) Negative NEG/TRACE [facility] Leukocytes [#/volume] correc maryuri for nucleated erythrocytes in Blood by Automated counon 11-08-2023 WBC corrected for nucl RBC Auto (Bld) [#/Vol] 7.3 10 3/uL 4.0-11.0 [facility] MCH Auto (RBC) [Entitic mass ]on 11-08-2023 MCH (RBC) [Entitic mass] 26.1 pg Low 26.7-34.0 [facility] MCHC Auto (RBC) [Mass/Vol]on 11-08-2023 MCHC (RBC) [Mass/Vol] 31.0 g/dL 29.9-35.2 [facility] MCV Auto (RBC) [Entitic vol] on 11-08-2023 MCV (RBC) [Entitic vol] 84.4 fL 81.0-99.0 [facility] No Panel Informationon 11-07 25-Hydroxy Vitamin D Total 32.6 ng/mL [facility] Comment on above: <20 ng/mL Vit D defi cient20-<30 ng/mL Vit D bmovhrrvpqof82-537 ng/mL Vit D sufficient>100 ng/mL Potential Toxicity Parathyroid Hormone (Intact) 106 pg/mL Abnormal 15-65 [facility] Comment on above: Performed at: - [address] [id number] Director: True Herron PhD, Phone: [phone] Phosphorus Level 3.8 mg/dL 2.6-4.7 [facility] Urine Occult Blood Negative NEGATIVE [facility] Urine Random Creatinine 73.41 mg/dL 20.00-300.00 [facility] Platelet mean volume Auto (B ld) [Entitic vol]on 11-08-2023 Platelet mean volume (Bld) [Entitic vol] 8.6 fL Low 9.5-13.5 [facility] Platelets Auto (Bld) [#/Vol] on 11-08-2023 Platelets (Bld) [#/Vol] 401 10 3/uL 150-450 [facility] RBC Auto (Bld) [#/Vol]on RBC (Bld) [#/Vol] 3.33 10 6/uL Low 4.20-5.40 [facility] Serum or plasma albumin/glob ulin mass ratioon 11-08-2023 Albumin/Globulin [Mass ratio] 0.9 {ratio} [facility] Serum or plasma anion gap de terminationon 11-08-2023 Anion gap [Moles/Vol] 12.0 mmol/L [facility] Urine protein/creatinine rat ioon 11-08-2023 Protein/Creatinine (U) [Ratio] 0.16 [facility] Follow-Upon 10-12-2023 Follow-Up [id number] Susana Juares 1955 F Date Provider Department Center 10/12/2023 XANDER FARLEY JUSTIN Garcia Family History Problem Relation Age of Onset Stroke Mother Kidney disease Father Coronary artery disease Paternal Grandfather Family Status - Relation Status Age at Mother Father Paternal Grandfather Level of Service:91459 SD OFFICE/OUTPATIENT ESTABLISHED MOD MDM 30 MIN Normal [facility] Office Visiton 06-29-2023 Follow-up visit [id number] Susana Juares 1955 F Date Provider Department Center 06/29/2023 XANDER FARLEY Family History Problem Relation Age of Onset Stroke Mother Kidney disease Father Coronary artery disease Paternal Grandfather Family Status - Relation Status Age at Mother Father Paternal Grandfather Level of Service:84329 SD OFFICE/OUTPATIENT ESTABLISHED LOW MDM 20 MIN Reason for Visit and Comments: Follow-up [[id number]] - Holter monitor results Normal [facility] Office Visiton 03-02-2023 Follow-up visit [id number] Susana Juares 1955 F Date Provider Department Center 03/02/2023 XANDER FARLEY Family History Problem Relation Age of Onset Stroke Mother Kidney disease Father Coronary artery disease Paternal Grandfather Family Status - Relation Status Age at Mother Father Paternal Grandfather Level of Service:37431 SD OFFICE/OUTPATIENT NEW MODERATE MDM 45-59 MINUTES Normal [facility] PTH INTACTon 08-04-2022 PTH, Intact 41 pg/mL Normal 15-65 [facility] Comment on above: Performed By: #### P THINT ####[facility] [address] [address]Dr. Osmel Shelton HEMOGRAM AND PLATELon 2022 Hematocrit (Bld) [Volume fraction] 34.6 % Critically low 36.0-48.0 [facility] Comment on above: Performed By: #### H H #### [facility] [address] [address] [address] Osmel Shelton Hemoglobin (Bld) [Mass/Vol] 11.1 g/dL Critically low 12.0-16.0 [facility] Comment on above: Performed By: #### H H #### [facility] [address] [address] [address] Osmel Shelton MCH (RBC) [Entitic mass] 29.3 pg Normal 26.7-34.0 [facility] Comment on above: Performed By: #### H H #### [facility] [address] [address] [address] Osmel Shelton MCHC (RBC) [Mass/Vol] 32.1 g/dL Normal 29.9-35.2 [facility] Comment on above: Performed By: #### H H #### [facility] [address] [place] [address] Dr. Osmel Shelton MCV (RBC) [Entitic vol] 91.3 fL Normal 81.0-99.0 [facility] Comment on above: Performed By: #### H H #### [facility] [address] [place] [address] Dr. Osmel Shelton PLT 306 103/ul Normal 150-450 [facility] Comment on above: Performed By: #### H H #### [facility] [address] [place] [address] Dr. Osmel Shelton RBC 3.79 106/ul Critically low 4.20-5.40 [facility] Comment on above: Performed By: #### H H #### [facility] [address] [place] [address] Dr. Osmel Shelton WBC 4.8 103/ul Normal 4.0-11.0 [facility] Comment on above: Performed By: #### H H #### [facility] [address] [place] [address] Dr. Osmel Shelton MAGNESIUMon 08-03-2022 Magnesium [Mass/Vol] 1.9 mg/dL Normal 1.8-2.4 [facility] Comment on above: Performed By: #### P HOS, MG, CMP, URIC #### [facility] [address] [place] [address] Dr. Osmel Shelton PHOSPHORUSon 08-03-2022 Phosphate [Mass/Vol] 4.4 mg/dL Normal 2.6-4.7 [facility] Comment on above: Performed By: #### P HOS, MG, CMP, URIC #### [facility] [address] [place] [address] Dr. Osmel Shelton PROF 14(COMP METB)on 023 Albumin [Mass/Vol] 3.6 g/dL Normal 3.4-5.0 [facility] Comment on above: Performed By: #### P HOS, MG, CMP, URIC ####[facility] [address] [address]Dr. Osmel Shelton Albumin/Globulin [Mass ratio] 0.9 {ratio} Normal [facility] Comment on above: Performed By: #### P HOS, MG, CMP, URIC ####[facility] [address] [address]Dr. Osmel Shelton ALP [Catalytic activity/Vol] 136 U/L Critically high 46-116 [facility] Comment on above: Performed By: #### P HOS, MG, CMP, URIC ####[facility] [address] [place], [place] [address]Dr. Osmel Shelton ALT [Catalytic activity/Vol] 29 U/L Normal 14-59 [facility] Comment on above: Performed By: #### P HOS, MG, CMP, URIC ####[facility] [address] [place], [place] [address]Dr. Osmel Shelton Anion gap [Moles/Vol] 13.5 mmol/L Normal [facility] Comment on above: Performed By: #### P HOS, MG, CMP, URIC ####[facility] [address] [place], [place] [address]Dr. Osmel Shelton AST [Catalytic activity/Vol] 27 U/L Normal 15-37 [facility] Comment on above: Performed By: #### P HOS, MG, CMP, URIC ####[facility] [address] [place], [place] [address]Dr. Osmel Shelton Bilirubin [Mass/Vol] 0.2 mg/dL Normal 0.2-1.0 [facility] Comment on above: Performed By: #### P HOS, MG, CMP, URIC ####[facility] [address] [place], [place] [address]Dr. Osmel Shelton Calcium [Mass/Vol] 9.0 mg/dL Normal 8.5-10.1 [facility] Comment on above: Performed By: #### P HOS, MG, CMP, URIC ####[facility] [address] [place], [place] [address]Dr. Osmel Shelton Chloride [Moles/Vol] 100 mmol/L Normal 98-107 [facility] Comment on above: Performed By: #### P HOS, MG, CMP, URIC ####[facility] [address] [address]Dr. Osmel Shelton CO2 [Moles/Vol] 25.7 mmol/L Normal 21.0-32.0 [facility] Comment on above: Performed By: #### P HOS, MG, CMP, URIC ####[facility] [address] [address]Dr. Osmel Shelton Creatinine [Mass/Vol] 1.40 mg/dL Critically high 0.55-1.02 [facility] Comment on above: Performed By: #### P HOS, MG, CMP, URIC ####[facility] [address] [place], [place] [address]Dr. Osmel Shelton EGFR-AF EGYPTIAN 45 mL/min/1.73m2 Critically low >=60 [facility] Comment on above: Performed By: #### P HOS, MG, CMP, URIC ####[facility] [address] [address]Dr. Osmel Shelton EGFR-NON AF EGYPTIAN 37 mL/min/1.73m2 Critically low >=60 [facility] Comment on above: Performed By: #### P HOS, MG, CMP, URIC ####[facility] [address] [address]Dr. Osmel Shelton Globulin (S) [Mass/Vol] 4.2 g/dL Normal [facility] Comment on above: Performed By: #### P HOS, MG, CMP, URIC ####[facility] [address] [address]Dr. Osmel Shelton Glucose [Mass/Vol] 101 mg/dL Normal 74-106 [facility] Comment on above: Performed By: #### P HOS, MG, CMP, URIC ####[facility] [address] [address]Dr. Osmel Shelton Potassium [Moles/Vol] 4.2 mmol/L Normal 3.5-5.1 [facility] Comment on above: Performed By: #### P HOS, MG, CMP, URIC ####[facility] [address] [address]Dr. Osmel Shelton Protein [Mass/Vol] 7.8 g/dL Normal 6.4-8.2 [facility] Comment on above: Performed By: #### P HOS, MG, CMP, URIC ####[facility] [address] [address]Dr. Osmel Shelton Sodium [Moles/Vol] 135 mmol/L Critically low 136-145 [facility] Comment on above: Performed By: #### P HOS, MG, CMP, URIC ####[facility] [address] [place], [place] [address]Dr. Osmel Shelton Urea nitrogen [Mass/Vol] 23.0 mg/dL Critically high 7.0-18.0 [facility] Comment on above: Performed By: #### P HOS, MG, CMP, URIC ####[facility] [address] [place], [place] [address]Dr. Osmel Shelton Urea nitrogen/Creatinine [Mass ratio] 16.4 mg/mg Normal [facility] Comment on above: Performed By: #### P HOS, MG, CMP, URIC ####[facility] [address] [place], [place] [address]Dr. Osmel Shelton UA RANDOMon 08-03-2022 Bilirubin Ql (U) Negative Normal NEGATIVE [facility] Comment on above: Performed By: #### U A #### [facility] [address] [address] [address] Osmel Shelton Clarity (U) CLEAR Normal CLEAR [facility] Comment on above: Performed By: #### U A #### [facility] [address] [address] [address] Osmel Shelton Color (U) LT. YELLOW Normal YELLOW [facility] Comment on above: Performed By: #### U A #### [facility] [address] [address] [address] Osmel Shelton Glucose Ql (U) Negative Normal NEGATIVE [facility] Comment on above: Performed By: #### U A #### [facility] [address] [place] [address] Dr. Osmel Shelton Hemoglobin Ql (U) Negative Normal NEGATIVE [facility] Comment on above: Performed By: #### U A #### [facility] [address] [place] [address] Dr. Osmel Shelton Ketones Ql (U) Negative Normal NEGATIVE [facility] Comment on above: Performed By: #### U A #### [facility] [address] [place] [address] Dr. Osmel Shelton LEUKOCYTES Negative Normal NEGATIVE [facility] Comment on above: Performed By: #### U A #### [facility] [address] [place] [address] Dr. Osmel Shelton Nitrite Ql (U) Negative Normal NEGATIVE [facility] Comment on above: Performed By: #### U A #### [facility] [address] [place] [address] Dr. Osmel Shelton pH (U) 5.5 [pH] Normal 5-9 [facility] Comment on above: Performed By: #### U A #### [facility] [address] [place] [address] Dr. Osmel Shelton SPEC GRAVITY <=1.005 Abnormal 1.005-<=1.025 [facility] Comment on above: Performed By: #### U A #### [facility] [address] [place] [address] Dr. Osmel Shelton UA PROTEIN Negative Normal NEGATIVE/ TRACE [facility] Comment on above: Performed By: #### U A #### [facility] [address] [place] [address] Dr. Osmel Shelton Urobilinogen Qn (U) 0.2 {Chuy'U}/dL Normal 0.2 - 1. 0 [facility] Comment on above: Performed By: #### U A #### [facility] [address] [place] [address] Dr. Osmel Shelton URIC ACID SERUMon 08-03-2022 Urate [Mass/Vol] 8.4 mg/dL Critically high 2.6-6.0 [facility] Comment on above: Performed By: #### P HOS, MG, CMP, URIC ####[facility] [address] [address]Dr. Osmel Shelton URINE T PROTEIN CREAT RATIOo n 08-03-2022 Protein (U) [Mass/Vol] 4.6 mg/dL Normal <=12.0 [facility] Comment on above: Performed By: #### U RTPCR #### [facility] [address] [address] [address] Osmel Shelton UR PROT CREAT RAT 0.[address] [facility] Comment on above: Performed By: #### U RTPCR #### [facility] [address] [address] [address] Osmel Shelton URINE CREAT 50.21 mg/dL Normal 20.00-300.00 [facility] Comment on above: Performed By: #### U RTPCR #### [facility] [address] [address] [address] Osmel Shelton VITAMIN D 25 OHon 08-03-2022 VIT D 25-OH 20.9 ng/mL Normal [facility] Comment on above: Performed By: #### V ITAD ####[facility] [address] [place], [place] [address]Dr. Osmel Shelton VIT D RANGES SEE BELOW Normal [facility] Comment on above: Result Comment: <20 ng/mL Vit D deficient 20 - <30 ng/mL Vit D insufficient 30 - 100 ng/mL Vit D sufficient >100 ng/mL Potential Toxicity Performed By: #### V ITAD ####[facility] [address] [address]DrLissett Shelton CBC AUTO DIFFon 07-09-2022 BASO # 0.0 103/ul Normal 0.0-0.1 [facility] Comment on above: Performed By: #### C BC #### [facility] [address] [place] [address] Dr. Osmel Shelton Basophils/100 WBC (Bld) 0.5 % Normal 0.2-2.0 [facility] Comment on above: Performed By: #### C BC #### [facility] [address] [address] [address] Osmel Shelton EO # 0.2 103/ul Normal 0.0-0.7 [facility] Comment on above: Performed By: #### C BC #### [facility] [address] [place] [address] Dr. Osmel Shelton Eosinophils/100 WBC (Bld) 2.9 % Normal 0.9-7.0 [facility] Comment on above: Performed By: #### C BC #### [facility] [address] [place] [address] Dr. Osmel Shelton Erythrocyte distribution width (RBC) [Ratio] 14.3 % Normal 11.0-15.0 [facility] Comment on above: Performed By: #### C BC #### [facility] [address] [place] [address] Dr. Osmel Shelton Hematocrit (Bld) [Volume fraction] 34.4 % Critically low 36.0-48.0 [facility] Comment on above: Performed By: #### C BC #### [facility] [address] [place] [address] Dr. Osmel Shelton Hemoglobin (Bld) [Mass/Vol] 11.4 g/dL Critically low 12.0-16.0 [facility] Comment on above: Performed By: #### C BC #### [facility] [address] [place] [address] Dr. Osmel Shelton IG # 0.02 10e3/ul Normal 0.00-0.03 [facility] Comment on above: Performed By: #### C BC #### [facility] [address] [place] [address] Dr. Osmel Shelton IG % 0.4 % Normal 0.0-0.5 [facility] Comment on above: Performed By: #### C BC #### [facility] [address] [place] [address] Dr. Osmel Shelton LYMPH # 1.3 103/ul Normal 1.2-3.8 [facility] Comment on above: Performed By: #### C BC #### [facility] [address] [place] [address] Dr. Osmel Shelton Lymphocytes/100 WBC (Bld) 23.0 % Normal 20.5-60.0 [facility] Comment on above: Performed By: #### C BC #### [facility] [address] [place] [address] Dr. Osmel Shelton MANUAL DIFF REQ NO Normal [facility] Comment on above: Performed By: #### C BC #### [facility] [address] [place] [address] Dr. Osmel Shelton MCH (RBC) [Entitic mass] 29.8 pg Normal 26.7-34.0 [facility] Comment on above: Performed By: #### C BC #### [facility] [address] [place] [address] Dr. Osmel Shelton MCHC (RBC) [Mass/Vol] 33.1 g/dL Normal 29.9-35.2 [facility] Comment on above: Performed By: #### C BC #### [facility] [address] [place] [address] Dr. Osmel Shelton MCV (RBC) [Entitic vol] 89.8 fL Normal 81.0-99.0 [facility] Comment on above: Performed By: #### C BC #### [facility] [address] [place] [address] Dr. Osmel Shelton MONO # 0.6 103/ul Normal 0.3-0.8 [facility] Comment on above: Performed By: #### C BC #### [facility] [address] [place] [address] Dr. Osmel Shelton Monocytes/100 WBC (Bld) 11.0 % Normal 1.7-12.0 [facility] Comment on above: Performed By: #### C BC #### [facility] [address] [place] [address] Dr. Osmel Shelton NEUT # 3.4 103/ul Normal 1.4-6.5 [facility] Comment on above: Performed By: #### C BC #### [facility] [address] [address] [address] Osmel Shelton Neutrophils/100 WBC (Bld) 62.2 % Normal 43.0-75.0 [facility] Comment on above: Performed By: #### C BC #### [facility] [address] [address] [address] Osmel Shelton Platelet mean volume (Bld) [Entitic vol] 9.4 fL Critically low 9.5-13.5 [facility] Comment on above: Performed By: #### C BC #### [facility] [address] [address] [address] Osmel Shelton PLT 327 103/ul Normal 150-450 [facility] Comment on above: Performed By: #### C BC #### [facility] [address] [address] [address] Osmel Shelton RBC 3.83 106/ul Critically low 4.20-5.40 [facility] Comment on above: Performed By: #### C BC #### [facility] [address] [address] [address] Osmel Shelton WBC 5.5 103/ul Normal 4.0-11.0 [facility] Comment on above: Performed By: #### C BC #### [facility] [address] [address] [address] Osmel Shelton PROF CHEM 8 (BAS METB)on Anion gap [Moles/Vol] 11.7 mmol/L Normal [facility] Comment on above: Performed By: #### B MP ####[facility] [address] [id number] Osmel Shelton Calcium [Mass/Vol] 8.8 mg/dL Normal 8.5-10.1 The [facility] Comment on above: Performed By: #### B MP ####[facility] [address] [id number]. Osmel Shelton Chloride [Moles/Vol] 99 mmol/L Normal 98-107 [facility] Comment on above: Performed By: #### B MP ####[facility] [address] [id number] Osmel Shelton CO2 [Moles/Vol] 27.1 mmol/L Normal 21.0-32.0 [facility] Comment on above: Performed By: #### B MP ####[facility] [address] [id number]. Osmel Shelton Creatinine [Mass/Vol] 1.38 mg/dL Critically high 0.55-1.02 [facility] Comment on above: Performed By: #### B MP ####[facility] [address] [id number]. Osmel Shelton EGFR-AF EGYPTIAN 46 mL/min/1.73m2 Critically low >=60 [facility] Comment on above: Performed By: #### B MP ####[facility] [address] [place], [place] [address]Dr. Moiramarcia Nikita EGFR-NON AF EGYPTIAN 38 mL/min/1.73m2 Critically low >=60 [facility] Comment on above: Performed By: #### B MP ####[facility] [address] [id number]. Osmel Shelton Glucose [Mass/Vol] 105 mg/dL Normal 74-106 [facility] Comment on above: Performed By: #### B MP ####[facility] [address] [id number]. Moiramarcia Shelton Potassium [Moles/Vol] 4.8 mmol/L Normal 3.5-5.1 [facility] Comment on above: Performed By: #### B MP ####[facility] [address] [address]. Moiramarcia Shelton Sodium [Moles/Vol] 133 mmol/L Critically low 136-145 [facility] Comment on above: Performed By: #### B MP ####[facility] [address] [place], [place] [address]Dr. Moiramarcia Shelton Urea nitrogen [Mass/Vol] 19.0 mg/dL Critically high 7.0-18.0 [facility] Comment on above: Performed By: #### B MP ####[facility] [address] [place], [place] [address]Jf. Osmel Shelton Urea nitrogen/Creatinine [Mass ratio] 13.8 mg/mg Normal [facility] Comment on above: Performed By: #### B MP ####[facility] [address] [place], [place] [address]Ha. Osmel Shelton PULMONARY FUNCTION TESTon PULMONARY FUNCTION [...] O2 indicated. Clinical correlation required. Normal [facility] US KIDNEYSon 04-15-2022 US KIDNEYS EXAMINATION: US [...] by: TIMOTHY GUIDRY Date: 2022-04-15 16:21 Normal [facility] CT LUNG CANCER SCREENINGon 1 CT [...] TIMOTHY GUIDRY Date: 2022-01-19 14:40 Normal [facility] CBC AUTO DIFFon 01-05-2022 BASO # 0.1 103/ul Normal 0.0-0.1 [facility] Comment on above: Performed By: #### C BC #### [facility] [address] [place] [address] Dr. Osmel Shelton Basophils/100 WBC (Bld) 1.0 % Normal 0.2-2.0 [facility] Comment on above: Performed By: #### C BC #### [facility] [address] [place] [address] Dr. Osmel Shelton EO # 0.2 103/ul Normal 0.0-0.7 [facility] Comment on above: Performed By: #### C BC #### [facility] [address] [place] [address] Dr. Osmel Shelton Eosinophils/100 WBC (Bld) 3.6 % Normal 0.9-7.0 [facility] Comment on above: Performed By: #### C BC #### [facility] [address] [place] [address] Dr. Osmel Shelton Erythrocyte distribution width (RBC) [Ratio] 14.1 % Normal 11.0-15.0 [facility] Comment on above: Performed By: #### C BC #### [facility] [address] [place] [address] Dr. Osmel Shelton Hematocrit (Bld) [Volume fraction] 36.5 % Normal 36.0-48.0 [facility] Comment on above: Performed By: #### C BC #### [facility] [address] [place] [address] Dr. Osmel Shelton Hemoglobin (Bld) [Mass/Vol] 11.8 g/dL Critically low 12.0-16.0 [facility] Comment on above: Performed By: #### C BC #### [facility] [address] [place] [address] Dr. Osmel Shelton IG # 0.02 10e3/ul Normal 0.00-0.03 [facility] Comment on above: Performed By: #### C BC #### [facility] [address] [place] [address] Dr. Osmel Shelton IG % 0.3 % Normal 0.0-0.5 [facility] Comment on above: Performed By: #### C BC #### [facility] [address] [place] [address] Dr. Osmel Shelton LYMPH # 1.3 103/ul Normal 1.2-3.8 [facility] Comment on above: Performed By: #### C BC #### [facility] [address] [place] [address] Dr. Osmel Shelton Lymphocytes/100 WBC (Bld) 21.4 % Normal 20.5-60.0 [facility] Comment on above: Performed By: #### C BC #### [facility] [address] [place] [address] Dr. Osmel Shelton MANUAL DIFF REQ NO Normal [facility] Comment on above: Performed By: #### C BC #### [facility] [address] [address] [address] Osmel Shelton MCH (RBC) [Entitic mass] 29.3 pg Normal 26.7-34.0 [facility] Comment on above: Performed By: #### C BC #### [facility] [address] [place] [address] Dr. Osmel Shelton MCHC (RBC) [Mass/Vol] 32.3 g/dL Normal 29.9-35.2 [facility] Comment on above: Performed By: #### C BC #### [facility] [address] [place] [address] Dr. Osmel Shelton MCV (RBC) [Entitic vol] 90.6 fL Normal 81.0-99.0 [facility] Comment on above: Performed By: #### C BC #### [facility] [address] [place] [address] Dr. Osmel Shelton MONO # 0.7 103/ul Normal 0.3-0.8 [facility] Comment on above: Performed By: #### C BC #### [facility] [address] [place] [address] Dr. Osmel Shelton Monocytes/100 WBC (Bld) 11.2 % Normal 1.7-12.0 [facility] Comment on above: Performed By: #### C BC #### [facility] [address] [place] [address] Dr. Osmel Shelton NEUT # 3.7 103/ul Normal 1.4-6.5 [facility] Comment on above: Performed By: #### C BC #### [facility] [address] [place] [address] Dr. Osmel Shelton Neutrophils/100 WBC (Bld) 62.5 % Normal 43.0-75.0 [facility] Comment on above: Performed By: #### C BC #### [facility] [address] [place] [address] Dr. Osmel Shelton Platelet mean volume (Bld) [Entitic vol] 9.4 fL Critically low 9.5-13.5 [facility] Comment on above: Performed By: #### C BC #### [facility] [address] [address] [address] Osmel Shelton PLT 364 103/ul Normal 150-450 [facility] Comment on above: Performed By: #### C BC #### [facility] [address] [address] [address] Osmel Shelton RBC 4.03 106/ul Critically low 4.20-5.40 [facility] Comment on above: Performed By: #### C BC #### [facility] [address] [address] [address] Osmel Shelton WBC 5.9 103/ul Normal 4.0-11.0 [facility] Comment on above: Performed By: #### C BC #### [facility] [address] [address] [address] Osmel Shelton LIPID PROFILEon 01-05-2022 CHOL-HDL RATIO NORM SEE BELOW Normal [facility] Comment on above: Result Comment: 3.3 - 4.4 LOW RISK 4.4 - 7.1 AVERAGE RISK 7.1 - 11.0 MODERATE RISK >11.0 HIGH RISK Performed By: #### C MP, LIPID #### [facility] [address] [address] [address] Osmel Shelton Cholesterol [Mass/Vol] 149 mg/dL Normal <=200 [facility] Comment on above: Performed By: #### C MP, LIPID #### [facility] [address] [address] [address] Osmel Shelton Cholesterol in HDL [Mass/Vol] 75 mg/dL Critically high 40-60 [facility] Comment on above: Performed By: #### C MP, LIPID #### [facility] [address] [address] [address] Osmel Shelton Cholesterol in LDL [Mass/Vol] 60.4 mg/dL Normal [facility] Comment on above: Performed By: #### C MP, LIPID #### [facility] [address] [address] [address] Osmel Shelton Cholesterol.total/Ch olesterol in HDL [Mass ratio] 2.0 {ratio} Normal [facility] Comment on above: Performed By: #### C MP, LIPID #### [facility] [address] [place] [address] Dr. Osmel Shelton HDL NORMAL > or = 60 mg/dl - LOW CARDIOVASCULAR RISK <40 mg/dl - HIGH CARDIOVASCULAR RISK Normal [facility] Comment on above: Performed By: #### C MP, LIPID #### [facility] [address] [address] [address] Osmel Shelton LDL CALC NORMAL SEE BELOW Normal [facility] Comment on above: Result Comment: <100 mg/dl OPTIMAL 100 - 129 mg/dl NEAR OR ABOVE OPTIMAL 130 - 159 mg/dl BORDERLINE HIGH 160 - 189 mg/dl HIGH >190 mg/dl VERY HIGH Performed By: #### C MP, LIPID #### [facility] [address] [place] [address] Dr. Osmel Shelton Triglyceride [Mass/Vol] 68 mg/dL Normal <=150 [facility] Comment on above: Performed By: #### C MP, LIPID #### [facility] [address] [place] [address] Dr. Osmel Shelton VLDL CALC 13.6 mg/dL Normal [facility] Comment on above: Performed By: #### C MP, LIPID #### [facility] [address] [place] [address] Dr. Osmel Shelton PROF 14(COMP METB)on 022 Albumin [Mass/Vol] 3.6 g/dL Normal 3.4-5.0 [facility] Comment on above: Performed By: #### C MP, LIPID #### [facility] [address] [place] [address] Dr. Osmel Shelton Albumin/Globulin [Mass ratio] 0.9 {ratio} Normal [facility] Comment on above: Performed By: #### C MP, LIPID #### [facility] [address] [place] [address] Dr. Osmel Shelton ALP [Catalytic activity/Vol] 152 U/L Critically high 46-116 [facility] Comment on above: Performed By: #### C MP, LIPID #### [facility] [address] [place], [place] [id number] Dr. Osmel Shelton ALT [Catalytic activity/Vol] 29 U/L Normal 14-59 [facility] Comment on above: Performed By: #### C MP, LIPID #### [facility] [address] [place] [address] Dr. Osmel Shelton Anion gap [Moles/Vol] 11.1 mmol/L Normal [facility] Comment on above: Performed By: #### C MP, LIPID #### [facility] [address] [address] [address] Osmel Shelton AST [Catalytic activity/Vol] 23 U/L Normal 15-37 [facility] Comment on above: Performed By: #### C MP, LIPID #### [facility] [address] [place] [address] Dr. Osmel Shelton Bilirubin [Mass/Vol] 0.3 mg/dL Normal 0.2-1.0 [facility] Comment on above: Performed By: #### C MP, LIPID #### [facility] [address] [place] [address] Dr. Osmel Shelton Calcium [Mass/Vol] 8.9 mg/dL Normal 8.5-10.1 [facility] Comment on above: Performed By: #### C MP, LIPID #### [facility] [address] [place] [address] Dr. Osmel Shelton Chloride [Moles/Vol] 96 mmol/L Critically low 98-107 [facility] Comment on above: Performed By: #### C MP, LIPID #### [facility] [address] [place] [address] Dr. Osmel Shelton CO2 [Moles/Vol] 28.2 mmol/L Normal 21.0-32.0 [facility] Comment on above: Performed By: #### C MP, LIPID #### [facility] [address] [place] [address] Dr. Osmel Shelton Creatinine [Mass/Vol] 1.46 mg/dL Critically high 0.55-1.02 [facility] Comment on above: Performed By: #### C MP, LIPID #### [facility] [address] [address] [address] Osmel Shelton EGFR-AF EGYPTIAN 43 mL/min/1.73m2 Critically low >=60 [facility] Comment on above: Performed By: #### C MP, LIPID #### [facility] [address] [address] [address] Osmel Shelton EGFR-NON AF EGYPTIAN 36 mL/min/1.73m2 Critically low >=60 [facility] Comment on above: Performed By: #### C MP, LIPID #### [facility] [address] [address] [address] Osmel Shelton Globulin (S) [Mass/Vol] 4.2 g/dL Normal [facility] Comment on above: Performed By: #### C MP, LIPID #### [facility] [address] [place] [address] Dr. Osmel Shelton Glucose [Mass/Vol] 95 mg/dL Normal 74-106 [facility] Comment on above: Performed By: #### C MP, LIPID #### [facility] [address] [place] [address] Dr. Osmel Shelton Potassium [Moles/Vol] 5.3 mmol/L Critically high 3.5-5.1 [facility] Comment on above: Performed By: #### C MP, LIPID #### [facility] [address] [address] [address] Osmel Shelton Protein [Mass/Vol] 7.8 g/dL Normal 6.4-8.2 The [facility] Comment on above: Performed By: #### C MP, LIPID #### [facility] [address] [address] [address] Osmel Shelton Sodium [Moles/Vol] 130 mmol/L Critically low 136-145 [facility] Comment on above: Performed By: #### C MP, LIPID #### [facility] [address] [address] [address] Osmel Shelton Urea nitrogen [Mass/Vol] 22.0 mg/dL Critically high 7.0-18.0 [facility] Comment on above: Performed By: #### C MP, LIPID #### [facility] [address] [place], [place] [address] Dr. Osmel Shelton Urea nitrogen/Creatinine [Mass ratio] 15.1 mg/mg Normal [facility] Comment on above: Performed By: #### C MP, LIPID #### [facility] [address] [place], [place] [address] Dr. Osmel Shleton Vital Signs Date Time Vital Sign Value Performing Clinician Facility 01-17-2024 13:25-0400 Body mass index (BMI) [Ratio] 34.76 kg/m2 Argelia Cheng [facility] SOCIOLOGY CHAIR Work Phone: [facility] 01-17-2024 13:25-0400 Body temperature 97.81 [degF] Argelia Cheng DEPARTMENT OF SOCIOLOGY CHAIR Work Phone: [facility] 01-17-2024 13:25-0400 Body weight 89 kg Argelia Cheng DEPARTMENT OF SOCIOLOGY CHAIR Work Phone: [facility] 01-17-2024 13:25-0400 Diastolic blood pressure 72 mm[Hg] Argelia Cheng DEPARTMENT OF SOCIOLOGY CHAIR Work Phone: [facility] 01-17-2024 13:25-0400 Heart rate 84 /min Argelia Hceng DEPARTMENT OF SOCIOLOGY CHAIR Work Phone: [facility] 01-17-2024 13:25-0400 SaO2% (BldA) [Mass fraction] 98 % Argelia Cheng DEPARTMENT OF SOCIOLOGY CHAIR Work Phone: [facility] 01-17-2024 13:25-0400 Systolic blood pressure 130 mm[Hg] Argelia Cheng DEPARTMENT OF SOCIOLOGY CHAIR Work Phone: [facility] 12-20-2023 15:00-0400 Diastolic blood pressure 75 mm[Hg] MD Jackelyn Guillory Work Phone: [facility] 12-20-2023 15:00-0400 Systolic blood pressure 136 mm[Hg] MD Jackelyn Guillory Work Phone: [facility] 12-17-2023 14:48-0400 Heart rate 81 /min MD Jackelyn Guillory Work Phone: [facility] 11-16-2023 15:26-0400 Body height 154.94 cm [facility] 11-16-2023 15:26-0400 Body mass index (BMI) [Ratio] 38.4 kg/m2 [facility] 11-16-2023 15:26-0400 Body temperature 96.1 [degF] [facility] 11-16-2023 15:26-0400 Body weight 92.24 kg [facility] 11-16-2023 15:26-0400 Diastolic blood pressure 79 mm[Hg] [facility] 11-16-2023 15:26-0400 Respiratory rate 20 /min [facility] 11-16-2023 15:26-0400 Systolic blood pressure 171 mm[Hg] [facility] 03-09-2023 11:20-0500 Body height 154.94 cm Jackelyn Guillory Other [facility] Other 03-09-2023 11:20-0500 Body mass index (BMI) [Ratio] 38.62 kg/m2 Jackelyn Guillory Other [facility] Other 03-09-2023 11:20-0500 Body temperature 96.7 [degF] Jackelyn Guillory Other [facility] Other 03-09-2023 11:20-0500 Body weight 92.72 kg Jackelyn Guillory Other [facility] Other 03-09-2023 11:20-0500 Diastolic blood pressure 60 mm[Hg] Jackelyn Guillory Other [facility] Other 03-09-2023 11:20-0500 Respiratory rate 18 /min Aziz Bakhous Other [facility] Other 03-09-2023 11:20-0500 SaO2% (BldA) [Mass fraction] 97 % Aziz Bakhous Other [facility] Other 03-09-2023 11:20-0500 Systolic blood pressure 100 mm[Hg] Aziz Bakhous Other [facility] Other 04-07-2022 15:20-0500 Body height 154.94 cm Aziz Bakhous Other [facility] Other 04-07-2022 15:20-0500 Body mass index (BMI) [Ratio] 39.67 kg/m2 Azsasha Bakhous Other [facility] Other 04-07-2022 15:20-0500 Body temperature 97.7 [degF] Azsasha Wagners Other [facility] Other 04-07-2022 15:20-0500 Body weight 95.26 kg Aziz Bakhous Other [facility] Other 04-07-2022 15:20-0500 Diastolic blood pressure 90 mm[Hg] Aziz Bakhous Other [facility] Other 04-07-2022 15:20-0500 Respiratory rate 18 /min Aziz Bakhous Other [facility] Other 04-07-2022 15:20-0500 SaO2% (BldA) [Mass fraction] 97 % Aziz Bakhous Other [facility] Other 04-07-2022 15:20-0500 Systolic blood pressure 140 mm[Hg] Jackelyn Guillory Other [facility] Other Encounters Encounter Date Encounter Type Care Provider Facility Start: 01-24-2024 End: 01-24-2024 Clinisync Result Encounter Generic External Data Provider [facility] Unsolicited Start: 01-24-2024 End: 01-24-2024 Clinisync Result Encounter Generic External Data Provider [facility] External [facility] Unsolicited Start: 01-17-2024 End: 01-17-2024 Bamboo flowsheet Argelia Cheng DEPARTMENT OF SOCIOLOGY CHAIR Work Phone: [facility] Start: 01-17-2024 End: 01-17-2024 Bamboo flowsheet Argelia Manzanok DEPARTMENT OF SOCIOLOGY CHAIR Work Phone: [facility] Start: 01-17-2024 End: 01-18-2024 Refill Trace Kelly MD Work Phone: [facility] Comment on above: Stage 3a chronic kid zhnana disease (HCC) (CMS/HCC) (Primary Dx) Start: 01-17-2024 End: 01-17-2024 Assay of hemosiderin, quant Argelia Cheng DEPARTMENT OF SOCIOLOGY CHAIR Work Phone: [facility] Work Phone: Start: 01-17-2024 End: 01-17-2024 Patient encounter procedure Argelia Cheng DEPARTMENT OF SOCIOLOGY CHAIR Work Phone: [facility] Comment on above: Routine general medi korin examination at health care facility (Primary Dx) Start: 01-04-2024 End: 01-04-2024 ambulatory [facility] Start: 12-20-2023 End: 12-20-2023 Discharged Recurring MD Jackelyn Guillory Work Phone: [facility] Work Phone: Start: 12-20-2023 End: 12-20-2023 ambulatory MD Jackelyn Guillory Work Phone: [facility] Work Phone: Start: 11-23-2023 Non-patient / Non-visit MD Rowan Guillory Work Phone: [facility] Work Phone: Start: 11-16-2023 End: 11-16-[address] [facility] Work Phone: Start: 11-16-2023 End: 11-16-2023 Patient encounter procedure [facility] Work Phone: Start: 11-08-2023 Non-patient / Non-visit [facility] Physician [facility] Work Phone: Start: 10-12-2023 End: 10-12-2023 ambulatory [facility] Start: 06-29-2023 End: 06-29-2023 ambulatory [facility] Start: 04-12-2023 End: 04-12-2023 ambulatory [facility] Not Available Start: 03-09-2023 End: 03-09-2023 ambulatory Jackelyn Guillory Other [facility] Other Start: 03-09-2023 Office outpatient vi sit 25 minutes Jackelyn Guillory [facility] Start: 03-02-2023 End: 03-02-2023 ambulatory [facility] Start: 08-03-2022 End: 08-04-2022 ambulatory JACKELYN GUILLORY Facility:[facility] Start: 07-15-2022 Encounter for other preprocedural examination DR REINA WARD [facility] Start: 07-09-2022 End: 07-10-[address] [...] 04-07-2022 End: 04-07-2022 ambulatory Jackelyn Guillory Other [facility] Other Start: 04-07-2022 Office outpatient ne w 30 minutes Jackelyn Guillory [facility] Start: 01-23-2022 End: 01-24-2022 ambulatory LUIS SCHUMACHER . Facility:[facility] Start: 01-19-2022 End: 01-20-2022 ambulatory LUIS SCHUMACHER . 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 Start: 01-24-2024 ALL HEMOGLOBIN Generic External Data Provider Plan of Treatment Date Care Activity Detail Author Start: 01-16-2025 Medicare Annual Wellness (AWV) Medicare Annual Wellness (AWV) [facility] Start: 01-16-2025 Pneumococcal Vaccine : 65+ Years (1 of 2 - PCV) Pneumococcal Vaccine: 65+ Years (1 of 2 - PCV) [facility] Comment on above: Postponed from 05/25 (Patient Refused) Start: 04-18-2024 End: 04-18-2024 Patient encounter procedure 04/18/2024 2:00 PM EST Office Visit [facility] [address] [place] [address] Argelia Cheng, N[place] [address] [place] [address] [facility] Start: 04-12-2024 Screening for malign ant neoplasm of colon Colorectal Cancer Screening [facility] Comment on above: Postponed from 05/25 (Patient Refused) Start: 03-13-2024 Influenza vaccination Influenza Vacc ine (#1) [facility] Comment on above: Postponed from 11/27 (Patient Refused) Start: 01-15-2024 Medicare Annual Wellness (AWV) Medicare Annual Wellness (AWV) [facility] Start: 11-28-2023 Influenza vaccination Influenza Vacc ine (#1) [facility] Start: 1961 Pneumococcal Vaccine : 65+ Years (1 of 2 - PCV) Pneumococcal Vaccine: 65+ Years (1 of 2 - PCV) [facility] Start: 1955 Screening for malign ant neoplasm of colon [facility] Renal function 2000 panel - Serum or Plasma [facility] Payers Date Payer Category Payer Medicare (Managed Care) [employer] [id number] 1961 Medicare [id number] 1959 Self-pay 1955 Unknown [id number]. 2.593 1953 Unknown [id number] [id number]. 2.593 1953 Unknown [id number] [id number]. 2.593 1953 Unknown [id number] [id number]. 2.593 1953 Unknown [id number] [id number]. 2.593 1953 Unknown [id number] 2.16.840.1.606210.3.579. 2.593 1953 Unknown [id number] 2.16.840.1.187953.3.579. 2.593 1953 Unknown [id number] 2.16.840.1.518939.3.579. 2.593 1953 Unknown [id number] [id number]. 2.1259 1953 Unknown [id number] [id number]. 2.1259 Unknown [id number] [id number]. 2.593 Unknown [id number] [id number]. 2.531 Unknown [id number] Social History Date Type Detail Facility Unknown if ever smoked [facility] Other Start: 04-08-2023 End: 04-12-2023 Sex Assigned At [employer] Other Start: 04-12-2023 End: 11-16-2023 Tobacco smoking status [facility] Ex-smoker (finding) [facility] Start: 1955 Sex Assigned At Female F [facility] Start: 03-29-1985 End: 03-29-2015 History of tobacco use Current smoker [facility] Start: 03-29-1985 End: 03-29-2015 History of tobacco use Cigarette Smoker [facility] Start: 04-08-2023 End: 04-12-2023 Cigarettes smoked current (pack per day) - Reported 1 [facility] Start: 04-12-2023 Tobacco use and exposure Smokeless tobacco non-user [facility] Start: 04-12-2023 Alcoholic beverage intake Lifetime non-drinker (finding) [facility] Do you feel stress - tense, restless, nervous, or anxious, or unable to sleep at night because your mind is troubled all the time - these days [OSQ] Only a little [facility] Start: 1955 Sex assigned at Not on file N [facility] Goals Date Patient Goal Desired Activity /State Clinical Notes 04-07-2022 to 01-18-2024 Note Date & Type Note Facility 01-18-2024 Evaluation note Diagnosis Stage 3a chronic kidney disease (HCC) (CMS/HCC)- Primary Other hyperlipidemia (CMS/HCC) Coronary artery disease involving pauma coronary artery of pauma heart without angina pectoris (CMS/HCC) Stage 3a chronic kidney disease (HCC) ([facility]/HCC)- Primary [facility] this encounter [id number] History of Present illness Narrative* Argelia Cheng, NIXON - 01/17/2024 1:00 PM EDT Images from the original note were not included. Subjective : Chief Complaint: Susana Juares is an 68 y.o. female here for an annual wellness visit. Specialists: Cardiology- [facility], [place] Pulmonology- Dr. Schumacher Nephrology- Dr. Madrid [...] on January 17, 2024 documented in this encounter[facility] [id number] NoteUT Electrophysiology Consult Note Reason for visit: [...] effient. She was recently seen at [facility] as a transfer from [facility] for complaints of symptomatic wide-complex tachycardia with [...] kidney disease COPD (chronic obstructive pulmonary disease) ([facility]) Coronary artery disease Coronary artery disease involving pauma coronary artery of pauma heart without angina pectoris 12/28/2016 Essential hypertension [...] Intimate Partner Violence: Not At Risk (10/26/2022) [place] Safety & [place] Fear of Current or [...] Places Lived in the (more content not included)...[facility]07-16-2024 NoteUT Electrophysiology Consult Note Reason [...] effient. She was recently seen at [facility] as a transfer from [facility] for complaints of symptomatic wide-complex tachycardia with [...] kidney disease COPD (chronic obstructive pulmonary disease) ([facility]) Coronary artery disease Coronary artery disease involving pauma coronary artery of pauma heart without angina pectoris 12/28/2016 Essential hypertension [...] Intimate Partner Violence: Not At Risk (10/26/2022) [place] Fear of Current or [...] %) nebulizer solution INHA (more content not included)...[facility]04-02-2024 NoteUT Electrophysiology Consult Note Reason [...] effient. 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 She was recently seen at [facility] as a transfer from [facility] for complaints of symptomatic wide-complex tachycardia with [...] kidney disease COPD (chronic obstructive pulmonary disease) ([facility]) Coronary artery disease Coronary artery disease involving pauma coronary artery of pauma heart without angina pectoris 12/28/2016 Essential hypertension [...] bedtime. ferrous sulfate 324 (more content not included)...[facility]01-10-2023 Evaluation note* Encounter Date Diagnosis [...] I will recheck sodium level next visit [facility] Other Evaluation note* Diagnosis Onset Date Resolution Status Anemia acute Hyperkalemia acute Hypertensive nephropathy acu te Hyperuricemia acute Hypomagnesemia acute Hyponatremia acute Stage 3b chronic kidney disease acute Vitamin D deficiency acute [facility] Work Phone: Evaluation note* Diagnosis Stage 3a chronic kidney disease (HCC) (CMS/HCC)- Primary Other hyperlipidemia (CMS/HCC) Coronary artery disease involving pauma coronary artery of pauma heart without angina pectoris (CMS/HCC) Routine general [...] 2 HEART STENTS Hospitalization History SEE ABOVE [facility] Other History general Narrative - Reported* Type [...] History SEE ABOVE Hospitalization History V-TACH 3 [facility] Other Summary Purpose Family History Relationship Condition [...] content) DATE CREATED AUTHOR 08/07/2022 [facility] DATE CREATED AUTHOR AUTHOR'S ORGANIZ ATION 12/22/2023 [facility] DATE CREATED AUTHOR AUTHOR'S ORGANIZ ATION 01/18/2024 [facility] DATE CREATED AUTHOR AUTHOR'S ORGANIZ ATION 01/19/2024 [facility] dical Specialists EPIC Care Teams (unrecognized sec [...] Team Status: Active Member Role Status Dates KIERA SantosC Primary Care Provider Ac tive Team Status: Active Member Role Status Dates Jackelyn Guillory MD Attending Provider Active Star t: November 23, 2023 Shaikh Ric MD Primary Care Provider Active Start: November 23, 2023 Team Status: Inactive Member Role Status Dates Jackelyn Guillory MD Attending Provider, Referring Provider Active Start: December 20, 2023 End: December 20, 2023 Argelia Cheng NP-C Primary Care Provider Active Start: November 282023 End: December 20, 2023 [employer]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 Relationship Specialty Start Date End Date Shaikh Larios MD [address] [place] [address] PCP - [facility] 04/29/23 Trace Kelly MD [address] [place] [address] PCP - General Family Medicine 11/10/23 Argelia Cheng NP [address] [place] [address] Nurse Practitioner Family Medicine 11/10/23 [employer]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 Relationship Specialty Start Date End Date Shaikh Larios MD [address] [place] [address] PCP - [facility] 04/29/23 Trace Kelly MD [address] [place] [address] PCP - General Family Medicine 01/17/24 Argelia Cheng NP [address] [place] [address] Nurse Practitioner Family Medicine 11/10/23 [employer]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 Relationship Specialty Start Date End Date Shaikh Larios MD [address] [place] [address] PCP - [facility] FLOWER 04/29/23 Trace Kelly MD [address] [place] [address] PCP - General Family Medicine 01/17/24 Argelia Cheng NP [address] [place] [address] Nurse Practitioner Family Medicine 11/10/23 [employer]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 [facility] [facility]. provides no warranty or guarantee of the accuracy or completeness of information in this document.
[2024-02-02 11:13] LABS: Protein Creatinine Ratio Urine 0.11; Total Protein Urine Random 8.7 mg/dL (<=11.9)
[2024-02-02 11:18] LABS: Mean Corpuscular HGB Conc 31.6 g/dL (29.9-35.2); Mean Corpuscular Hemoglobin 29.1 pg (26.7-34.0); Mean Platelet Volume 9.7 fL (9.5-13.5); Platelet Count 329 10^3/uL (150-450); Red Blood Count 4.13 10^6/uL (4.20-5.40); White Blood Count 6.8 10^3/uL (4.0-11.0)
[2024-02-02 11:22] LABS: Albumin Level 3.6 g/dL (3.4-5.0); Anion Gap 12.3; BUN Creatinine Ratio 15.5; Carbon Dioxide 29.9 mmol/L (21.0-32.0); Chloride 99 mmol/L (98-107); Estimated GFR (African America 38 (>=60 mL/min/1.73m^2); Estimated GFR (Non-African Ame 32 (>=60 mL/min/1.73m^2); Glucose 92 mg/dL (74-106); Magnesium 2.1 mg/dL (1.8-2.4); Phosphorus 4.3 mg/dL (2.6-4.7); Potassium 4.2 mmol/L (3.5-5.1); Sodium 137 mmol/L (136-145); Uric Acid 6.7 mg/dL (2.6-6.0)
[2024-02-02 11:48] LABS: Bilirubin Urine NEGATIVE (NEGATIVE); Blood Urine NEGATIVE (NEGATIVE); Clarity Urine CLEAR (CLEAR); Color Urine LT. YELLOW (YELLOW); Glucose Urine UA NEGATIVE (NEGATIVE); Ketones Urine NEGATIVE (NEGATIVE); Leukocyte Esterase Urine NEGATIVE (NEGATIVE); Nitrite Urine NEGATIVE (NEGATIVE); Protein Urine NEGATIVE (NEG/TRACE); Urobilinogen Urine 0.2 EU/dL (0.2-1.0)
[2024-02-02 11:56] LABS: Percent Iron Saturation 25.2 %
[2024-02-03 08:15] LABS: Vitamin B12 395 pg/mL (232-1245)
[2024-02-03 11:09] LABS: PTH, Intact 73 pg/mL (15-65)
== END 2024-02-02 10:33 | disposition home or self-care (01) ==
LOC: LAB 10:35
PROVIDERS: Visit Provider Internal Medicine Nephrology
DX: E55.9 Vitamin D deficiency, unspecified (principal); D64.9 Anemia, unspecified; E79.0 Hyperuricemia without signs of inflammatory arthritis and tophaceous disease; E87.1 Hypo-osmolality and hyponatremia; E87.5 Hyperkalemia
CPT/HCPCS: 36415; 80069; 81003; 82306; 82570; 82607; 82728; 82746; 83540; 83550; 83735; 83970; 84156; 84550; 85027

== ENCOUNTER 2024-04-18 15:04 | Observation (INO) | payer MEDICARE, SELFPAY ==
[2024-04-18] VITALS (32 sets, daily range): BP systolic 118–192; BP diastolic 73–95; PULSE 20–92; TEMP 36.8–36.9; O2SAT 93–98; BMI 35.8; BMI 35.4
--- NOTE | 2024-04-18 15:19 | ECG_ITS ---
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
--- NOTE | 2024-04-18 15:19 | XR_ITS ---
The [address] [address] Patient Name: CHIARA EDUARDO MRN: [id number] date: 1955 Sex: F Assigned Patient Location: ER Current Patient Location: ER Accession/Order Number: [id number] Exam Date: 04/18/2024 15:50 Report Date: 04/18/2024 16:19 At the request of: JC ELAM Procedure: XR chest 1V EXAMINATION: XR chest 1V HISTORY: sob COMPARISON: XR chest 10/26/2022 FINDINGS: LUNGS: Mild opacities over lateral right lung bases. VASCULATURE: No increased pulmonary vasculature. PLEURA: No pneumothorax, effusion, or pleural thickening. CARDIAC: No cardiomegaly or cardiac silhouette abnormality. MEDIASTINUM: No visible mass or adenopathy. BONES: No fracture or visible bone lesion. OTHER: Negative. XR/XR chest 1V IMPRESSION: 1. Mild bibasilar infiltrates versus atelectasis versus anterior soft tissue summation artifact. Consider PA and lateral chest radiographs if there remains clinical suspicion. Electronically authenticated by: SHMAIKA WHITLEY Date: 04/18/2024 16:19
--- OUTSIDE RECORDS SUMMARY | 2024-04-18 15:25 | XMS_ITS | CCD ---
Author Organization [facility] Care Team Providers Care Legislative Analyst Name Role Phone Jackelyn Guillory Unavailable JACKELYN [...] Care Unavailable SAMSA ., LUIS Attending Unavailable MACON, DR TIMOTHY Chandler Consulting Unavailable HOUSE, DR CASTILLO Primary Care Unavailable SAMSA ., LUIS Admitting Unavailable SAMSA ., LUIS Consulting Unavailable HOUSE, DR CASTILLO Admitting Unavailable HOUSE, DR CASTILLO Primary Care Unavailable [place], DR CASTILLO Consulting Unavailable HOUSE, DR CASTILLO Attending Unavailable BAKHOUS, MARIOIZ Consulting Unavailable BAKHUMBERTOS, JACKELYN Attending Unavailable BAKHUMBERTOS, AZIZ Admitting Unavailable HOUSE, DR CASTILLO Primary Care Un[facility] Consulting [facility] HU[facility] Attending Unavailable HOUSE, DR CASTILLO Primary Care Unavailable [facility] HUANG Admitting Unavailable SAMSA ., LUIS Consulting Unavailable SAMSA ., LUIS Attending Unavailable SAMSA ., LUIS Admitting Unavailable HOUSE, DR CASTILLO Primary Care Unavailable HOUSE, DR CASTILLO Consulting Unavailable SAMSA ., LUIS Consulting Unavailable MD Jackelyn Guillory Attending Provider [phone] MD Jackelyn Guillory Referring Provider [phone] KARO Cheng Primary Care Provid er Jackelyn Guillory Attending Unavailable Jackelyn Guillory Referring Unavailable Argelia Cheng Primary Care Unavaila ble Jackelyn Guillory Admitting Unavailable Shaikh Larios MD Unavailable Trace Kelly MD Primary Care Provider Skylar ALICEA, Argelia Unavailable XANDER MUSTAFA Attending Unavailable XANDER MUSTAFA Attending Unavailable XANDER MUSTAFA Attending Unavailable XANDER MUSTAFA Attending Unavailable Trace Kelly MD Primary Care Provider [phone] SHAIKH LARIOS Attending Unavailable ARGELIA CHENG Attending Unavailabl e Allergies Allergy Classification Reported Allergen(s) Allergy Type Date of Onset Reaction(s) Facility (13 sources) clopidogrel; Translations: [CLOPIDOGREL] Drug Allergy [facility] (5 sources) hydroCHLOROthiazide; Translations: [HYDROCHLOROTHIAZIDE] Drug Allergy rash [facility] (3 sources) Penicillin; Translations: [penicillin] Drug Allergy [facility] Repository (13 sources) Vancomycin; Translations: [VANCOMYCIN] Drug Allergy anaphylaxis [facility] (2 sources) Substance with sulfonamide structure and antibacterial mechanism of action (substance) Drug allergy Unknown [facility] Other (1 source) clopidogrel Drug Allergy [facility] Repository (1 source) hydroCHLOROthiazide Drug Allergy [facility] Repository (1 source) Vancomycin Drug Allergy [facility] Repository (12 sources) Penicillins; Translations: [Penicillins] Allergy to substance [facility] (4 sources) Sulfonamides (Antibiotic); Translations: [Sulfa (Sulfonamide Antibiotics)] Allergy to substance Unknown Reaction [facility] (1 source) clopidogrel Drug Allergy [facility] Repository (1 source) hydroCHLOROthiazide Drug Allergy [facility] Repository (1 source) Vancomycin Drug Allergy [facility] Repository (8 sources) hydroCHLOROthiazide Drug Allergy [facility] (9 sources) Sodium Chloride; Translations: [SODIUM CHLORIDE] Drug Allergy [facility] (8 sources) Sulfacetamide Drug Allergy [facility] Medications Current Medications Medication Drug Class(es) Dates Sig (Normalized) Sig (Original) [id number] 200 actuat albuterol 0.09 mg/actuat metered dose inhaler (12 sources) beta2-Adrenergic Agonist Start: 11-16-2023 take 1 [...] / ipratropium bromide 0.167 mg/ml inhalation solution (12 sources) Anticholinergic, beta2-Adrenergic Agonist Start: 11-16-2023 take 1 mL by inhalation every six hours Ipratropium-Albuterol Active 3 ML INHALATION Every 6 hours November 16, 2023 12:00am ipratropium-albu terol (Duo-Neb) 0.5-2.5 mg/3 mL nebulizer solution Take 3 mL by nebulization every 6 (six) hours Active aspirin 81 mg delayed release oral tablet (12 sources) Platelet Aggregation Inhibitor, Nonsteroidal Anti-inflammatory Drug Start: 11-16-2023 take 81 mg by mouth once daily Aspirin Active 81 MG PO Daily November 16, 2023 12:00am atorvastatin 80 mg oral tablet (13 sources) HMG-CoA Reductase Inhibitor Start: 10-14-2023 End: 09-30-2024 take 1 tablet by mouth once daily atorvastatin (Lipitor) 80 MG tablet Indications: Other hyperlipidemia (CMS/HCC) Take 1 tablet (80 mg) by mouth Daily 90 tablet 1 04/03/2024 09/30/2024 Active take 1 tablet by rebecca th every twenty-four hours Atorvastatin Calcium 80 MG 1 tablet Oral ly Once a day Active cholecalciferol 0.025 mg oral tablet (10 sources) Vitamin D Start: 01-18-2024 take 1 [...] Active cyclobenzaprine hydrochloride 10 mg oral tablet (8 sources) Muscle Relaxant take 5 mg by mouth three times daily as needed for muscle spasms cyclobenzaprine (Flexeril) 10 MG tablet Take 5 mg by mouth 3 (three) times a day as needed for muscle spasms Active Fluticasone Propion-Salmeterol (12 sources) Corticosteroid, beta2-Adrenergic Agonist Start: 11-16-19 Fluticasone [...] day Active furosemide 20 mg oral tablet (12 sources) Loop Diuretic Start: 11-16-2023 take 20 [...] mononitrate 30 mg extended release oral tablet (11 sources) Nitrate Vasodilator Start: 11-16-2023 take 30 [...] / pyridoxine hydrochloride 25 mg oral tablet (8 sources) take 1 tablet by mouth in the morning magnesium oxide-pyridoxine (Beelith) 362-20 MG tablet Take 1 tablet by mouth in the morning. Active 24 hr metoprolol succinate 100 mg extended release oral tablet (14 sources) beta-Adrenergic Fernando Start: 01-17-20 take 0.5 [...] Active olmesartan medoxomil 40 mg oral tablet (12 sources) Angiotensin 2 Receptor Fernando Start: 11-16-2023 take 40 mg by mouth once daily Olmesartan Active 40 MG PO Daily November 16, 2023 12:00am omeprazole 20 mg delayed release oral capsule (12 sources) Proton Pump Inhibitor Start: 11-16-2023 take 20 mg by mouth once daily Omeprazole Active 20 MG PO Daily November 16, 2023 12:00am take 1 tablet by mouth before me altime omeprazole OTC (PriLOSEC OTC) 20 MG EC tablet Take 20 mg by mouth in the morning. Take before meals. Do not crush, chew, or split.. Active take 1 capsule by mouth once rulsan ly Omeprazole 20 MG 1 capsule 30 minutes before morning meal Orally Once a day Active prasugrel 10 mg oral tablet (7 sources) P2Y12 Platelet Inhibitor Start: 11-16-2023 End: [...] (Original) ferrous sulfate 325 mg oral tablet (5 sources) End: 01-17-2024 take 1 tablet by [...] unspecified] Onset: 10-26-2022 Chronic Chronic kidney disease (19 sources) Chronic kidney disease stage 3A ; Translations: [Chronic kidney disease, stage 3a] Onset: 01-08-2022 11-13-2023 Chronic Chronic kidney disease (4 sources) Chronic kidney disease; Translations: [CHRONIC KIDNEY DISEASE STAGE 3A] Onset: 08-06-2022 Chronic obstructive pulmonary disease and bronchiectasis (13 sources) Chronic obstructive pulmonary disease, unspecified; Translations: [Chronic obstructive lung disease] Onset: 12-28-2016 Chronic Coronary atherosclerosis and other heart disease (14 sources) Atherosclerotic heart disease of [place] coronary artery without angina pectoris; Translations: [Coronary arteriosclerosis] Onset: 12-28-2016 Chronic Deficiency and other anemia (3 sources) Anemia, unspecified; Translations: [Anemia, unspecified] Episodic Deficiency and other anemia (2 sources) Anemia; Translations: [Anemia, unspecified] 11-13-2023 Episodic Disorders of lipid metabolism (9 sources) Hyperlipidemia; Translations: [Other hyperlipidemia] Onset: 04-12-2023 04-12-2023 Chronic Essential hypertension (10 sources) Essential hypertension; Translations: [Essential (primary) hypertension] Onset: 12-14-2016 04-12-2023 Chronic Hypertension with complications and secondary hypertension (15 sources) Hypertensive renal disease; Translations: [Hypertensive chronic kidney disease with stage 1 through stage 4 chronic kidney disease, or unspecified chronic kidney disease] Onset: 01-08-2022 Chronic Nutritional deficiencies (6 sources) Vitamin D deficiency; Translations: [Vitamin D deficiency, unspecified] Chronic Other nutritional; endocrine; and metabolic disorders (11 sources) Hypomagnesemia; Translations: [Hypomagnesemia] Onset: 10-27-2022 11-13-2023 [...] Da te Episodic/Chronic Fluid and electrolyte disorders (20 sources) Hyperkalemia; Translations: [Hypo-osmolality and hyponatremia] Onset: 08-06-2022 Episodic Nonspecific chest pain (2 sources) Chest pain, unspecified; Translations: [Chest pain, unspecified] Onset: 10-30-2022 Episodic Screening and history of mental health and substance abuse codes (12 sources) Personal history of nicotine dependence; Translations: [Ex-smoker] Onset: 01-22-2020 Episodic Spondylosis; intervertebral disc disorders; other back problems (8 sources) Low back pain; Translations: [Lower back pain] Onset: 12-28-2016 04-12-2023 Episodic Results Test Name Value Interpretation Reference Range Facility [facility] URINE T PROTEIN CREAT RA TIOon 02-02-2024 CREATININE URINE RANDOM 78.2 mg/dL 20.00 - 300.00 mg/dL [facility] Protein (U) [Mass/Vol] 8.7 mg/dL NINF - 11.9 mg/dL [facility] PROTEIN CREATININE RATIO URINE 0.11 [facility] HEMOGLOBINon 01-24-2024 Hemoglobin (Bld) [Mass/Vol] 11 g/dL Low 12.0 - 16.0 g/dL [facility] Interpretation and review of laboratory results Abnormal [facility] 36on 01-04-2024 36 Patient seen today by Dr. Mustafa. He wants to know if she can stop Effient due to easy bruising/bleeding. Please advise. Thanks. Normal [facility] Office Visiton 01-04-2024 Follow-up visit [id number] Susana Juares 1955 F Date Provider Department Center 01/04/2024 [facility]XANDER MUSTAFA JUSTIN Albarran [facility] Family History Problem Relation Age of Onset Stroke Mother Kidney disease Father Coronary artery disease Paternal Grandfather Family Status - Relation Status Age at Mother Father Paternal Grandfather Level of Service:83809 [place] OFFICE/OUTPATIENT ESTABLISHED LOW MDM 20 MIN Normal [facility] Iron binding capacity [Mass/ volume] in Serum or Plasmaon 11-23-2023 Iron binding capacity [Mass/Vol] 365.0 ug/dL 250.0-450.0 [facility] Iron saturation [Mass Fracti on] in Serum or Plasmaon 11-23-2023 Iron saturation [Mass fraction] 5.5 % [facility] Laboratory - Chemistry and C hemistry - challengeon 11-23-2023 Ferritin [Mass/Vol] 25.0 ng/mL 8.0-252.0 [facility] Iron [Mass/Vol] 20.0 ug/dL Low 50.0-170.0 [facility] METRO IRON AND TIBCon 2023 Interpretation and review of laboratory results Abnormal [facility] IRON 20.0 ug/dL Low 50.0 - 170.0 ug/dL [facility] PERCENT IRON SATURATION 5.5 % [facility] TB TOTAL IRON BINDING CAPACITY 365.0 ug/dL 250.0 - 450.0 ug/dL [facility] Erythrocyte distribution wid th Auto (RBC) [Ratio]on 11-08-2023 Erythrocyte distribution width (RBC) [Ratio] 16.4 % High 11.0-15.0 [facility] Estimated glomerular filtrat ion rate (GFR) non- Americanon 11-08-2023 GFR/1.73 sq M.predicted among non-blacks MDRD (S/P/Bld) [Vol rate/Area] 37 mL/min/{1.73_m2} Low >=60 [facility] Globulin Calc (S) [Mass/Vol] on 11-08-2023 Globulin (S) [Mass/Vol] 3.9 g/dL [facility] Hematocrit Auto (Bld) [Volum e fraction]on 11-08-2023 Hematocrit (Bld) [Volume fraction] 28.1 % Low 36.0-48.0 [facility] Hemoglobin [Mass/volume] in Bloodon 11-08-2023 Hemoglobin (Bld) [Mass/Vol] 8.7 g/dL Low 12.0-16.0 [facility] Laboratory - Chemistry and C hemistry - challengeon 11-08-2023 Albumin [Mass/Vol] 3.4 g/dL 3.4-5.0 [facility] ALP [Catalytic activity/Vol] 81 U/L 46-116 [facility] ALT [Catalytic activity/Vol] 26 U/L 14-59 [facility] AST [Catalytic activity/Vol] 23 U/L 15-37 [facility] Bilirubin [Mass/Vol] 0.3 mg/dL 0.2-1.0 [facility] Calcium [Mass/Vol] 8.7 mg/dL 8.5-10.1 [facility] Chloride [Moles/Vol] 93 mmol/L Low 98-107 [facility] CO2 [Moles/Vol] 27.4 mmol/L 21.0-32.0 [facility] Creatinine [Mass/Vol] 1.40 mg/dL High 0.55-1.02 [facility] GFR/1.73 sq M.predicted MDRD (S/P/Bld) [Vol rate/Area] 45 mL/min/{1.73_m2} Low >=60 [facility] Glucose [Mass/Vol] 96 mg/dL 74-106 [facility] Magnesium [Mass/Vol] 2.2 mg/dL 1.8-2.4 [facility] Potassium [Moles/Vol] 4.4 mmol/L 3.5-5.1 [facility] Protein [Mass/Vol] 7.3 g/dL 6.4-8.2 [facility] Sodium [Moles/Vol] 128 mmol/L Low 136-145 [facility] Urate [Mass/Vol] 5.6 mg/dL 2.6-6.0 [facility] Urea nitrogen [Mass/Vol] 20.0 mg/dL High 7.0-18.0 [facility] Urea nitrogen/Creatinine [Mass ratio] 14.3 mg/mg [facility] Bilirubin Ql (U) Negative NEGATIVE [facility] Glucose (U) [Mass/Vol] Negative NEGATIVE [facility] Ketones Ql (U) Negative NEGATIVE [facility] pH (U) 7.5 [pH] 5.0-9.0 [facility] Specific gravity (U) [Rel density] 1.010 1.005-1.025 [facility] Urobilinogen Qn (U) 0.2 {Chuy'U}/dL 0.2-1.0 [facility] Laboratory - Specimen inform ationon 11-08-2023 Appearance (U) CLEAR CLEAR [facility] Color (U) YELLOW YELLOW [facility] Laboratory - Urinalysison Leukocyte esterase Test strip Ql (U) Negative NEGATIVE [facility] Nitrite Ql (U) Negative NEGATIVE [facility] Protein (U) [Mass/Vol] 11.9 mg/dL <=11.9 [facility] Protein Ql (U) Negative NEG/TRACE [facility] Leukocytes [#/volume] correc maryuri for nucleated erythrocytes in Blood by Automated counon 11-08-2023 WBC corrected for nucl RBC Auto (Bld) [#/Vol] 7.3 10 3/uL 4.0-11.0 [facility] MCH Auto (RBC) [Entitic mass ]on 11-08-2023 MCH (RBC) [Entitic mass] 26.1 pg Low 26.7-34.0 [facility] MCHC Auto (RBC) [Mass/Vol]on 11-08-2023 MCHC (RBC) [Mass/Vol] 31.0 g/dL 29.9-35.2 [facility] MCV Auto (RBC) [Entitic vol] on 11-08-2023 MCV (RBC) [Entitic vol] 84.4 fL 81.0-99.0 [facility] No Panel Informationon 11-07 25-Hydroxy Vitamin D Total 32.6 ng/mL [facility] Comment on above: <20 ng/mL Vit D defi cient20-<30 ng/mL Vit D qdphotibbxfq66-124 ng/mL Vit D sufficient>100 ng/mL Potential Toxicity Parathyroid Hormone (Intact) 106 pg/mL Abnormal 15-65 [facility] Comment on above: Performed at: [facility] [place] [id number] Director: True Herron PhD, Phone: [phone] Phosphorus Level 3.8 mg/dL 2.6-4.7 [facility] Urine Occult Blood Negative NEGATIVE [facility] Urine Random Creatinine 73.41 mg/dL 20.00-300.00 [facility] Platelet mean volume Auto (B ld) [Entitic vol]on 11-08-2023 Platelet mean volume (Bld) [Entitic vol] 8.6 fL Low 9.5-13.5 [facility] Platelets Auto (Bld) [#/Vol] on 11-08-2023 Platelets (Bld) [#/Vol] 401 10 3/uL 150-450 [facility] RBC Auto (Bld) [#/Vol]on RBC (Bld) [#/Vol] 3.33 10 6/uL Low 4.20-5.40 [facility] Serum or plasma albumin/glob ulin mass ratioon 11-08-2023 Albumin/Globulin [Mass ratio] 0.9 {ratio} [facility] Serum or plasma anion gap de terminationon 11-08-2023 Anion gap [Moles/Vol] 12.0 mmol/L [facility] Urine protein/creatinine rat ioon 11-08-2023 Protein/Creatinine (U) [Ratio] 0.16 [facility] Follow-Upon 10-12-2023 Follow-Up [id number] Susana Juares 1955 Provider Department Center 10/12/2023 XANDER FARLEY Family History Problem Relation Age of Onset Stroke Mother Kidney disease Father Coronary artery disease Paternal Grandfather Family Status - Relation Status Age at Mother Father Paternal Grandfather Level of Service:10414 [place] OFFICE/OUTPATIENT ESTABLISHED MOD MDM 30 MIN Normal [facility] Office Visiton 06-29-2023 Follow-up visit [id number] Susana Juares 1955 Provider Department Center 06/29/2023 XANDER FARLEY Family History Problem Relation Age of Onset Stroke Mother Kidney disease Father Coronary artery disease Paternal Grandfather Family Status - Relation Status Age at Mother Father Paternal Grandfather Level of Service:00031 [place] OFFICE/OUTPATIENT ESTABLISHED LOW MDM 20 MIN Reason for Visit and Comments: Follow-up [559791] - Holter monitor results Normal [facility] Office Visiton 03-02-2023 Follow-up visit [id number] Susana Juares 1955 Provider Department Center 03/02/2023 XANDER FARLEY Family History Problem Relation Age of Onset Stroke Mother Kidney disease Father Coronary artery disease Paternal Grandfather Family Status - Relation Status Age at Mother Father Paternal Grandfather Level of Service:29752 [place] OFFICE/OUTPATIENT NEW MODERATE MDM 45-59 MINUTES Normal [facility] PTH INTACTon 08-04-2022 PTH, Intact 41 pg/mL Normal 15-65 [facility] Comment on above: Performed By: #### P THINT ####[facility] [id number] [place] [address]DrLissett Shelton HEMOGRAM AND PLATELon 2022 Hematocrit (Bld) [Volume fraction] 34.6 % Critically low 36.0-48.0 [facility] Comment on above: Performed By: #### H H #### [facility] Laboratory [address] [place] [address] Dr. Osmel Shelton Hemoglobin (Bld) [Mass/Vol] 11.1 g/dL Critically low 12.0-16.0 [facility] Comment on above: Performed By: #### H H #### [facility] Laboratory [address] [place] [address] Dr. Osmel Shelton MCH (RBC) [Entitic mass] 29.3 pg Normal 26.7-34.0 [facility] Comment on above: Performed By: #### H H #### [facility] Laboratory [address] [place] [address] Dr. Osmel Shelton MCHC (RBC) [Mass/Vol] 32.1 g/dL Normal 29.9-35.2 [facility] Comment on above: Performed By: #### H H #### [facility] Laboratory [address] [place] [address] Dr. Osmel Shelton MCV (RBC) [Entitic vol] 91.3 fL Normal 81.0-99.0 [facility] Comment on above: Performed By: #### H H #### [facility] Laboratory [address] [place] [address] Dr. Osmel Shelton PLT 306 103/ul Normal 150-450 [facility] Comment on above: Performed By: #### H H #### [facility] Laboratory [address] [place] [address] Dr. Osmel Shelton RBC 3.79 106/ul Critically low 4.20-5.40 [facility] Comment on above: Performed By: #### H H #### [facility] Laboratory [address] [place] [address] Dr. Osmel Shelton WBC 4.8 103/ul Normal 4.0-11.0 [facility] Comment on above: Performed By: #### H H #### [facility] Laboratory [address] [place] [address] Dr. Osmel Shelton MAGNESIUMon 08-03-2022 Magnesium [Mass/Vol] 1.9 mg/dL Normal 1.8-2.4 [facility] Comment on above: Performed By: #### P HOS, MG, CMP, URIC #### [facility] Laboratory [address] [address] [address] Osmel Shelton PHOSPHORUSon 08-03-2022 Phosphate [Mass/Vol] 4.4 mg/dL Normal 2.6-4.7 [facility] Comment on above: Performed By: #### P HOS, MG, CMP, URIC #### [facility] Laboratory [address] [address] [address] Osmel Shelton PROF 14(COMP METB)on 023 Albumin [Mass/Vol] 3.6 g/dL Normal 3.4-5.0 [facility] Comment on above: Performed By: #### P HOS, MG, CMP, URIC ####[facility] [id number] [place] [address]Dr. Osmel Shelton Albumin/Globulin [Mass ratio] 0.9 {ratio} Normal [facility] Comment on above: Performed By: #### P HOS, MG, CMP, URIC ####[facility] [id number] [place] [address]Dr. Osmel Shelton ALP [Catalytic activity/Vol] 136 U/L Critically high 46-116 [facility] Comment on above: Performed By: #### P HOS, MG, CMP, URIC ####[facility] [id number] [place] [address]Dr. Osmel Shelton ALT [Catalytic activity/Vol] 29 U/L Normal 14-59 [facility] Comment on above: Performed By: #### P HOS, MG, CMP, URIC ####[facility] [id number] [place] [address]Dr. Osmel Shelton Anion gap [Moles/Vol] 13.5 mmol/L Normal [facility] Comment on above: Performed By: #### P HOS, MG, CMP, URIC ####[facility] [id number] [place] [address]Dr. Osmel Shelton AST [Catalytic activity/Vol] 27 U/L Normal 15-37 [facility] Comment on above: Performed By: #### P HOS, MG, CMP, URIC ####[facility] [id number] [place] [address]Dr. Osmel Shelton Bilirubin [Mass/Vol] 0.2 mg/dL Normal 0.2-1.0 [facility] Comment on above: Performed By: #### P HOS, MG, CMP, URIC ####[facility] [id number] [place] [address]Dr. Osmel Shelton Calcium [Mass/Vol] 9.0 mg/dL Normal 8.5-10.1 [facility] Comment on above: Performed By: #### P HOS, MG, CMP, URIC ####[facility] [id number] [place], [place] [address]Dr. Osmel Shelton Chloride [Moles/Vol] 100 mmol/L Normal 98-107 [facility] Comment on above: Performed By: #### P HOS, MG, CMP, URIC ####[facility] [id number] [place], [place] [address]Dr. Osmel Shelton CO2 [Moles/Vol] 25.7 mmol/L Normal 21.0-32.0 [facility] Comment on above: Performed By: #### P HOS, MG, CMP, URIC ####[facility] [id number] [place], [place] [address]Dr. Osmel Shelton Creatinine [Mass/Vol] 1.40 mg/dL Critically high 0.55-1.02 [facility] Comment on above: Performed By: #### P HOS, MG, CMP, URIC ####[facility] [id number] [place], [place] [address]Dr. Osmel Shelton EGFR-AF COLOMBIAN 45 mL/min/1.73m2 Critically low >=60 [facility] Comment on above: Performed By: #### P HOS, MG, CMP, URIC ####[facility] [address] [place], [place] [address]Dr. Osmel Shelton EGFR-NON AF COLOMBIAN 37 mL/min/1.73m2 Critically low >=60 [facility] Comment on above: Performed By: #### P HOS, MG, CMP, URIC ####[facility] [address] [address]Dr. Osmel Shelton Globulin (S) [Mass/Vol] 4.2 g/dL Normal [facility] Comment on above: Performed By: #### P HOS, MG, CMP, URIC ####[facility] [address] [address]Dr. Osmel Shelton Glucose [Mass/Vol] 101 mg/dL Normal 74-106 [facility] Comment on above: Performed By: #### P HOS, MG, CMP, URIC ####[facility] [address] [place], [place] [address]Dr. Osmel Shelton Potassium [Moles/Vol] 4.2 mmol/L Normal 3.5-5.1 [facility] Comment on above: Performed By: #### P HOS, MG, CMP, URIC ####[facility] [address] [place], [place] [address]Dr. Osmel Shelton Protein [Mass/Vol] 7.8 g/dL Normal 6.4-8.2 [facility] Comment on above: Performed By: #### P HOS, MG, CMP, URIC ####[facility] [address] [place], [place] [address]Dr. Osmel Shelton Sodium [Moles/Vol] 135 mmol/L Critically low 136-145 [facility] Comment on above: Performed By: #### P HOS, MG, CMP, URIC ####[facility] [address] [place], [place] [address]Dr. Osmel Shelton Urea nitrogen [Mass/Vol] 23.0 mg/dL Critically high 7.0-18.0 [facility] Comment on above: Performed By: #### P HOS, MG, CMP, URIC ####[facility] [address] [place], [place] [address]Dr. Osmel Shelton Urea nitrogen/Creatinine [Mass ratio] 16.4 mg/mg Normal [facility] Comment on above: Performed By: #### P HOS, MG, CMP, URIC ####[facility] [address] [place], [place] [address]Dr. Osmel Shelton UA RANDOMon 08-03-2022 Bilirubin Ql (U) Negative Normal NEGATIVE [facility] Comment on above: Performed By: #### U A #### [facility] Laboratory [address] [place] [address] Dr. Osmel Shelton Clarity (U) CLEAR Normal CLEAR [facility] Comment on above: Performed By: #### U A #### [facility] Laboratory [address] [place] [address] Dr. Osmel Shelton Color (U) LT. YELLOW Normal YELLOW [facility] Comment on above: Performed By: #### U A #### [facility] Laboratory [address] [place] [address] Dr. Osmel Shelton Glucose Ql (U) Negative Normal NEGATIVE [facility] Comment on above: Performed By: #### U A #### [facility] Laboratory [address] [place] [address] Dr. Osmel Shelton Hemoglobin Ql (U) Negative Normal NEGATIVE [facility] Comment on above: Performed By: #### U A #### [facility] Laboratory [address] [place] [address] Dr. Osmel Shelton Ketones Ql (U) Negative Normal NEGATIVE [facility] Comment on above: Performed By: #### U A #### [facility] Laboratory [address] [place] [address] Dr. Osmel Shelton LEUKOCYTES Negative Normal NEGATIVE [facility] Comment on above: Performed By: #### U A #### [facility] Laboratory [address] [place] [address] Dr. Osmel Shelton Nitrite Ql (U) Negative Normal NEGATIVE [facility] Comment on above: Performed By: #### U A #### [facility] Laboratory [address] [place] [address] Dr. Osmel Shelton pH (U) 5.5 [pH] Normal 5-9 [facility] Comment on above: Performed By: #### U A #### [facility] Laboratory [address] [place] [address] Dr. Osmel Shelton SPEC GRAVITY <=1.005 Abnormal 1.005-<=1.025 [facility] Comment on above: Performed By: #### U A #### [facility] Laboratory [address] [address] [address] Osmel Shelton UA PROTEIN Negative Normal NEGATIVE/ TRACE [facility] Comment on above: Performed By: #### U A #### [facility] Laboratory [address] [address] [address] Osmel Shelton Urobilinogen Qn (U) 0.2 {Chuy'U}/dL Normal 0.2 - 1. 0 [facility] Comment on above: Performed By: #### U A #### [facility] Laboratory [address] [address] [address] Osmel Shelton URIC ACID SERUMon 08-03-2022 Urate [Mass/Vol] 8.4 mg/dL Critically high 2.6-6.0 [facility] Comment on above: Performed By: #### P HOS, MG, CMP, URIC ####[facility] [address] [address]Dr. Osmle Shelton URINE T PROTEIN CREAT RATIOo n 08-03-2022 Protein (U) [Mass/Vol] 4.6 mg/dL Normal <=12.0 [facility] Comment on above: Performed By: #### U RTPCR #### [facility] Laboratory [address] [place] [address] Dr. Osmel Shelton UR PROT CREAT RAT 0.09 Normal [facility] Comment on above: Performed By: #### U RTPCR #### [facility] Laboratory [address] [address] [address] Osmel Shelton URINE CREAT 50.21 mg/dL Normal 20.00-300.00 The [facility] Comment on above: Performed By: #### U RTPCR #### [facility] Laboratory [address] [place] [address] Dr. Osmel Shelton VITAMIN D 25 OHon 08-03-2022 VIT D 25-OH 20.9 ng/mL Normal [facility] Comment on above: Performed By: #### V ITAD ####[facility] [address] [place], [place] [address]Dr. Osmel Shelton VIT D RANGES SEE BELOW Normal [facility] Comment on above: Result Comment: <20 ng/mL Vit D deficient 20 - <30 ng/mL Vit D insufficient 30 - 100 ng/mL Vit D sufficient >100 ng/mL Potential Toxicity Performed By: #### V ITAD ####[facility] [address] [place], [place] [address]Dr. Osmel Shelton CBC AUTO DIFFon 07-09-2022 BASO # 0.0 103/ul Normal 0.0-0.1 [facility] Comment on above: Performed By: #### C BC #### [facility] Laboratory [address] [address] [address] Osmel Shelton Basophils/100 WBC (Bld) 0.5 % Normal 0.2-2.0 [facility] Comment on above: Performed By: #### C BC #### [facility] Laboratory [address] [address] [address] Osmel Shelton EO # 0.2 103/ul Normal 0.0-0.7 [facility] Comment on above: Performed By: #### C BC #### [facility] Laboratory [address] [address] [address] Osmel Shelton Eosinophils/100 WBC (Bld) 2.9 % Normal 0.9-7.0 [facility] Comment on above: Performed By: #### C BC #### [facility] Laboratory [address] [address] [address] Osmel Shelton Erythrocyte distribution width (RBC) [Ratio] 14.3 % Normal 11.0-15.0 [facility] Comment on above: Performed By: #### C BC #### [facility] Laboratory [address] [address] [address] Osmel Shelton Hematocrit (Bld) [Volume fraction] 34.4 % Critically low 36.0-48.0 [facility] Comment on above: Performed By: #### C BC #### [facility] Laboratory [id number] Osmel Shelton Hemoglobin (Bld) [Mass/Vol] 11.4 g/dL Critically low 12.0-16.0 [facility] Comment on above: Performed By: #### C BC #### [facility] Laboratory [address] [place] [address] Dr. Osmel Shelton IG # 0.02 10e3/ul Normal 0.00-0.03 [facility] Comment on above: Performed By: #### C BC #### [facility] Laboratory [address] [place] [address] Dr. Osmel Shelton IG % 0.4 % Normal 0.0-0.5 [facility] Comment on above: Performed By: #### C BC #### [facility] Laboratory [address] [place] [address] Dr. Osmel Shelton LYMPH # 1.3 103/ul Normal 1.2-3.8 [facility] Comment on above: Performed By: #### C BC #### [facility] Laboratory [address] [place] [address] Dr. Osmel Shelton Lymphocytes/100 WBC (Bld) 23.0 % Normal 20.5-60.0 [facility] Comment on above: Performed By: #### C BC #### [facility] Laboratory [address] [place] [address] Dr. Osmel Shelton MANUAL DIFF REQ NO Normal [facility] Comment on above: Performed By: #### C BC #### [facility] Laboratory [address] [place] [address] Dr. Osmel Shelton MCH (RBC) [Entitic mass] 29.8 pg Normal 26.7-34.0 [facility] Comment on above: Performed By: #### C BC #### [facility] Laboratory [address] [place] [address] Dr. Osmel Shleton MCHC (RBC) [Mass/Vol] 33.1 g/dL Normal 29.9-35.2 [facility] Comment on above: Performed By: #### C BC #### [facility] Laboratory [address] [place] [address] Dr. Osmel Shelton MCV (RBC) [Entitic vol] 89.8 fL Normal 81.0-99.0 [facility] Comment on above: Performed By: #### C BC #### [facility] Laboratory [address] [place] [address] Dr. Osmel Shelton MONO # 0.6 103/ul Normal 0.3-0.8 [facility] Comment on above: Performed By: #### C BC #### [facility] Laboratory [address] [place] [address] Dr. Osmel Shelton Monocytes/100 WBC (Bld) 11.0 % Normal 1.7-12.0 [facility] Comment on above: Performed By: #### C BC #### [facility] Laboratory [address] [place] [address] Dr. Osmel Shelton NEUT # 3.4 103/ul Normal 1.4-6.5 [facility] Comment on above: Performed By: #### C BC #### [facility] Laboratory [address] [place] [address] Dr. Osmel Shelton Neutrophils/100 WBC (Bld) 62.2 % Normal 43.0-75.0 [facility] Comment on above: Performed By: #### C BC #### [facility] Laboratory [address] [place] [address] Dr. Osmel Shelton Platelet mean volume (Bld) [Entitic vol] 9.4 fL Critically low 9.5-13.5 [facility] Comment on above: Performed By: #### C BC #### [facility] Laboratory [address] [place] [address] Dr. Osmel Shelton PLT 327 103/ul Normal 150-450 [facility] Comment on above: Performed By: #### C BC #### [facility] Laboratory [address] [place] [address] Dr. Osmel Shelton RBC 3.83 106/ul Critically low 4.20-5.40 [facility] Comment on above: Performed By: #### C BC #### [facility] Laboratory [address] [place] [address] Dr. Osmel Shelton WBC 5.5 103/ul Normal 4.0-11.0 [facility] Comment on above: Performed By: #### C BC #### [facility] Laboratory [address] [place] [address] Dr. Osmel Shelton PROF CHEM 8 (BAS METB)on Anion gap [Moles/Vol] 11.7 mmol/L Normal [facility] Comment on above: Performed By: #### B MP ####[facility] [address] [address]Dr. Osmel Shelton Calcium [Mass/Vol] 8.8 mg/dL Normal 8.5-10.1 [facility] Comment on above: Performed By: #### B MP ####[facility] [address] [place], [place] [address]Dr. Osmel Shelton Chloride [Moles/Vol] 99 mmol/L Normal 98-107 [facility] Comment on above: Performed By: #### B MP ####[facility] [address] [place], [place] [address]Dr. Osmel Shelton CO2 [Moles/Vol] 27.1 mmol/L Normal 21.0-32.0 The [facility] Comment on above: Performed By: #### B MP ####[facility] [address] [place], [place] [address]Dr. Osmel Shelton Creatinine [Mass/Vol] 1.38 mg/dL Critically high 0.55-1.02 [facility] Comment on above: Performed By: #### B MP ####[facility] [address] [place], [place] [address]Dr. Osmel Shelton EGFR-AF COLOMBIAN 46 mL/min/1.73m2 Critically low >=60 The [facility] Comment on above: Performed By: #### B MP ####[facility] [address] [place], [place] [address]Dr. Osmel Shelton EGFR-NON AF COLOMBIAN 38 mL/min/1.73m2 Critically low >=60 The [facility] Comment on above: Performed By: #### B MP ####[facility] [address] [place], [place] [address]Dr. Osmel Shelton Glucose [Mass/Vol] 105 mg/dL Normal 74-106 [facility] Comment on above: Performed By: #### B MP ####[facility] [address] [place], [place] [address]Dr. Osmel Shelton Potassium [Moles/Vol] 4.8 mmol/L Normal 3.5-5.1 [facility] Comment on above: Performed By: #### B MP ####[facility] [address] [address]Dr. Osmel Shelton Sodium [Moles/Vol] 133 mmol/L Critically low 136-145 [facility] Comment on above: Performed By: #### B MP ####[facility] [address] [address]Dr. Osmel Shelton Urea nitrogen [Mass/Vol] 19.0 mg/dL Critically high 7.0-18.0 [facility] Comment on above: Performed By: #### B MP ####[facility] [address] [place], [place] [address]Dr. Osmel Shelton Urea nitrogen/Creatinine [Mass ratio] 13.8 mg/mg Normal [facility] Comment on above: Performed By: #### B MP ####[facility] [address] [place], [place] [address]Dr. Osmel Shelton PULMONARY FUNCTION TESTon PULMONARY FUNCTION [...] O2 indicated. Clinical correlation required. Normal The [facility] US KIDNEYSon 04-15-2022 US KIDNEYS EXAMINATION: US [...] by: TIMOTHY GUIDRY Date: 2022-04-15 16:21 Normal [facility] CT LUNG CANCER SCREENINGon 1 CT LUNG [...] by: TIMOTHY GUIDRY Date: 2022-01-19 14:40 Normal [facility] CBC AUTO DIFFon 01-05-2022 BASO # 0.1 103/ul Normal 0.0-0.1 [facility] Comment on above: Performed By: #### C BC #### [facility] Laboratory [address] [place] [address] Dr. Osmel Shelton Basophils/100 WBC (Bld) 1.0 % Normal 0.2-2.0 [facility] Comment on above: Performed By: #### C BC #### [facility] Laboratory [address] [place] [address] Dr. Osmel Shelton EO # 0.2 103/ul Normal 0.0-0.7 [facility] Comment on above: Performed By: #### C BC #### [facility] Laboratory [address] [place] [address] Dr. Osmel Shelton Eosinophils/100 WBC (Bld) 3.6 % Normal 0.9-7.0 [facility] Comment on above: Performed By: #### C BC #### [facility] Laboratory [address] [place] [address] Dr. Osmel Shelton Erythrocyte distribution width (RBC) [Ratio] 14.1 % Normal 11.0-15.0 [facility] Comment on above: Performed By: #### C BC #### [facility] Laboratory [address] [place] [address] Dr. Osmel Shelton Hematocrit (Bld) [Volume fraction] 36.5 % Normal 36.0-48.0 [facility] Comment on above: Performed By: #### C BC #### [facility] Laboratory [address] [place] [address] Dr. Osmel Shelton Hemoglobin (Bld) [Mass/Vol] 11.8 g/dL Critically low 12.0-16.0 [facility] Comment on above: Performed By: #### C BC #### [facility] Laboratory [address] [place] [address] Dr. Osmel Shelton IG # 0.02 10e3/ul Normal 0.00-0.03 [facility] Comment on above: Performed By: #### C BC #### [facility] Laboratory [address] [place] [address] Dr. Osmel Shelton IG % 0.3 % Normal 0.0-0.5 [facility] Comment on above: Performed By: #### C BC #### [facility] Laboratory [address] [place] [address] Dr. Osmel Shelton LYMPH # 1.3 103/ul Normal 1.2-3.8 [facility] Comment on above: Performed By: #### C BC #### [facility] Laboratory [address] [place] [address] Dr. Osmel Shelton Lymphocytes/100 WBC (Bld) 21.4 % Normal 20.5-60.0 [facility] Comment on above: Performed By: #### C BC #### [facility] Laboratory [address] [place] [address] Dr. Osmel Shelton MANUAL DIFF REQ NO Normal [facility] Comment on above: Performed By: #### C BC #### [facility] Laboratory [address] [place] [address] Dr. Osmel Shelton MCH (RBC) [Entitic mass] 29.3 pg Normal 26.7-34.0 [facility] Comment on above: Performed By: #### C BC #### [facility] Laboratory [address] [place] [address] Dr. Osmel Shelton MCHC (RBC) [Mass/Vol] 32.3 g/dL Normal 29.9-35.2 [facility] Comment on above: Performed By: #### C BC #### [facility] Laboratory [address] [place] [address] Dr. Osmel Shelton MCV (RBC) [Entitic vol] 90.6 fL Normal 81.0-99.0 [facility] Comment on above: Performed By: #### C BC #### [facility] Laboratory [address] [place] [address] Dr. Osmel Shelton MONO # 0.7 103/ul Normal 0.3-0.8 [facility] Comment on above: Performed By: #### C BC #### [facility] Laboratory [address] [place] [address] Dr. Osmel Shelton Monocytes/100 WBC (Bld) 11.2 % Normal 1.7-12.0 [facility] Comment on above: Performed By: #### C BC #### [facility] Laboratory [address] [place] [address] Dr. Osmel Shelton NEUT # 3.7 103/ul Normal 1.4-6.5 [facility] Comment on above: Performed By: #### C BC #### [facility] Laboratory [address] [place] [address] Dr. Osmel Shelton Neutrophils/100 WBC (Bld) 62.5 % Normal 43.0-75.0 [facility] Comment on above: Performed By: #### C BC #### [facility] Laboratory [address] [place] [address] Dr. Osmel Shelton Platelet mean volume (Bld) [Entitic vol] 9.4 fL Critically low 9.5-13.5 [facility] Comment on above: Performed By: #### C BC #### [facility] Laboratory [address] [place] [address] Dr. Osmel Shelton PLT 364 103/ul Normal 150-450 [facility] Comment on above: Performed By: #### C BC #### [facility] Laboratory [address] [place] [address] Dr. Osmel Shelton RBC 4.03 106/ul Critically low 4.20-5.40 [facility] Comment on above: Performed By: #### C BC #### [facility] Laboratory [address] [place] [address] Dr. Osmel Shelton WBC 5.9 103/ul Normal 4.0-11.0 [facility] Comment on above: Performed By: #### C BC #### [facility] Laboratory [address] [place] [address] Dr. Osmel Shelton LIPID PROFILEon 01-05-2022 CHOL-HDL RATIO NORM SEE BELOW Normal [facility] Comment on above: Result Comment: 3.3 - 4.4 LOW RISK 4.4 - 7.1 AVERAGE RISK 7.1 - 11.0 MODERATE RISK >11.0 HIGH RISK Performed By: #### C MP, LIPID #### [facility] Laboratory [address] [place] [address] Dr. Osmel Shelton Cholesterol [Mass/Vol] 149 mg/dL Normal <=200 [facility] Comment on above: Performed By: #### C MP, LIPID #### [facility] Laboratory [address] [address] [address] Osmel Shelton Cholesterol in HDL [Mass/Vol] 75 mg/dL Critically high 40-60 [facility] Comment on above: Performed By: #### C MP, LIPID #### [facility] Laboratory [address] [address] [address] Osmel Shelton Cholesterol in LDL [Mass/Vol] 60.4 mg/dL Normal [facility] Comment on above: Performed By: #### C MP, LIPID #### [facility] Laboratory [address] [place] [address] Dr. Osmel Shelton Cholesterol.total/Ch olesterol in HDL [Mass ratio] 2.0 {ratio} Normal [facility] Comment on above: Performed By: #### C MP, LIPID #### [facility] Laboratory [address] [place], [place] [address] Dr. Osmel Shelton HDL NORMAL > or = 60 mg/dl - LOW CARDIOVASCULAR RISK <40 mg/dl - HIGH CARDIOVASCULAR RISK Normal [facility] Comment on above: Performed By: #### C MP, LIPID #### [facility] [address] [place] [address] Dr. Osmel Shelton LDL CALC NORMAL SEE BELOW Normal [facility] Comment on above: Result Comment: <100 mg/dl OPTIMAL 100 - 129 mg/dl NEAR OR ABOVE OPTIMAL 130 - 159 mg/dl BORDERLINE HIGH 160 - 189 mg/dl HIGH >190 mg/dl VERY HIGH Performed By: #### C MP, LIPID #### [facility] [address] [address] [address] Osmel Shelton Triglyceride [Mass/Vol] 68 mg/dL Normal <=150 [facility] Comment on above: Performed By: #### C MP, LIPID #### [facility] [address] [place] [address] Dr. Osmel Shelton VLDL CALC 13.6 mg/dL Normal [facility] Comment on above: Performed By: #### C MP, LIPID #### [facility] [address] [address] [address] Osmel Shelton PROF 14(COMP METB)on 10-10-2 022 Albumin [Mass/Vol] 3.6 g/dL Normal 3.4-5.0 [facility] Comment on above: Performed By: #### C MP, LIPID #### [facility] [address] [place] [address] Dr. Osmel Shelton Albumin/Globulin [Mass ratio] 0.9 {ratio} Normal [facility] Comment on above: Performed By: #### C MP, LIPID #### [facility] [address] [address] [address] Osmel Shelton ALP [Catalytic activity/Vol] 152 U/L Critically high 46-116 [facility] Comment on above: Performed By: #### C MP, LIPID #### [facility] [address] [place] [address] Dr. Osmel Shelton ALT [Catalytic activity/Vol] 29 U/L Normal 14-59 [facility] Comment on above: Performed By: #### C MP, LIPID #### [facility] [address] [place] [address] Dr. Osmel Shelton Anion gap [Moles/Vol] 11.1 mmol/L Normal [facility] Comment on above: Performed By: #### C MP, LIPID #### [facility] [address] [place] [address] Dr. Osmel Shelton AST [Catalytic activity/Vol] 23 U/L Normal 15-37 [facility] Comment on above: Performed By: #### C MP, LIPID #### [facility] [address] [place] [address] Dr. Osmel Shelton Bilirubin [Mass/Vol] 0.3 mg/dL Normal 0.2-1.0 [facility] Comment on above: Performed By: #### C MP, LIPID #### [facility] [address] [place] [address] Dr. Osmel Shelton Calcium [Mass/Vol] 8.9 mg/dL Normal 8.5-10.1 [facility] Comment on above: Performed By: #### C MP, LIPID #### [facility] [address] [place] [address] Dr. Osmel Shelton Chloride [Moles/Vol] 96 mmol/L Critically low 98-107 [facility] Comment on above: Performed By: #### C MP, LIPID #### [facility] [address] [place] [address] Dr. Osmel Shelton CO2 [Moles/Vol] 28.2 mmol/L Normal 21.0-32.0 [facility] Comment on above: Performed By: #### C MP, LIPID #### [facility] [address] [place] [address] Dr. Osmel Shelton Creatinine [Mass/Vol] 1.46 mg/dL Critically high 0.55-1.02 [facility] Comment on above: Performed By: #### C MP, LIPID #### [facility] [address] [place] [address] Dr. Osmel Shelton EGFR-AF COLOMBIAN 43 mL/min/1.73m2 Critically low >=60 [facility] Comment on above: Performed By: #### C MP, LIPID #### [facility] [address] [place] [address] Dr. Osmel Shelton EGFR-NON AF [place] 36 mL/min/1.73m2 Critically low >=60 [facility] Comment on above: Performed By: #### C MP, LIPID #### [facility] [address] [place] [address] Dr. Osmel Shelton Globulin (S) [Mass/Vol] 4.2 g/dL Normal [facility] Comment on above: Performed By: #### C MP, LIPID #### [facility] [address] [place] [address] Dr. Osmel Shelton Glucose [Mass/Vol] 95 mg/dL Normal 74-106 [facility] Comment on above: Performed By: #### C MP, LIPID #### [facility] [address] [place] [address] Dr. Osmel Shelton Potassium [Moles/Vol] 5.3 mmol/L Critically high 3.5-5.1 [facility] Comment on above: Performed By: #### C MP, LIPID #### [facility] [address] [place] [address] Dr. Osmel Shelton Protein [Mass/Vol] 7.8 g/dL Normal 6.4-8.2 [facility] Comment on above: Performed By: #### C MP, LIPID #### [facility] [address] [address] [address] Osmel Shelton Sodium [Moles/Vol] 130 mmol/L Critically low 136-145 Th e [facility] Comment on above: Performed By: #### C MP, LIPID #### [facility] [address] [address] [address] Osmel Shelton Urea nitrogen [Mass/Vol] 22.0 mg/dL Critically high 7.0-18.0 [facility] Comment on above: Performed By: #### C MP, LIPID #### [facility] [address] [place] [address] Dr. Osmel Shelton Urea nitrogen/Creatinine [Mass ratio] 15.1 mg/mg Normal [facility] Comment on above: Performed By: #### C MP, LIPID #### [facility] [address] [place] [address] Dr. Osmel Shelton Vital Signs Date Time Vital Sign Value Performing Clinician Facility 01-17-2024 13:25-0400 Body mass index (BMI) [Ratio] 34.76 kg/m2 Argelia Cheng MORTGAGE COUNSELOR Work Phone: [facility] 01-17-2024 13:25-0400 Body temperature 97.81 [degF] Argelia Cheng MORTGAGE COUNSELOR Work Phone: [facility] 01-17-2024 13:25-0400 Body weight 89 kg Argelia Cheng MORTGAGE COUNSELOR Work Phone: [facility] 01-17-2024 13:25-0400 Diastolic blood pressure 72 mm[Hg] Argelia Cheng MORTGAGE COUNSELOR Work Phone: [facility] 01-17-2024 13:25-0400 Heart rate 84 /min Argelia Cheng MORTGAGE COUNSELOR Work Phone: [facility] 01-17-2024 13:25-0400 SaO2% (BldA) [Mass fraction] 98 % Argelia Cheng MORTGAGE COUNSELOR Work Phone: [facility] 01-17-2024 13:25-0400 Systolic blood pressure 130 mm[Hg] Argelia Cheng MORTGAGE COUNSELOR Work Phone: [facility] 12-20-2023 15:00-0400 Diastolic blood pressure 75 mm[Hg] MD Jackelyn Guillory Work Phone: [facility] 12-20-2023 15:00-0400 Systolic blood pressure 136 mm[Hg] MD Jackelyn Guillory Work Phone: [facility] 12-17-2023 14:48-0400 Heart rate 81 /min MD Jackelyn Guillory Work Phone: [facility] 11-16-2023 15:26-0400 Body height 154.[address] [facility] 11-16-2023 15:26-0400 Body mass index (BMI) [Ratio] 38.4 kg/m2 [facility] 11-16-2023 15:26-0400 Body temperature 96.1 [degF] [facility] 11-16-2023 15:26-0400 Body weight 92.[address] [facility] 11-16-2023 15:26-0400 Diastolic blood pressure 79 mm[Hg] [facility] 11-16-2023 15:26-0400 Respiratory rate 20 /min [facility] 11-16-2023 15:26-0400 Systolic blood pressure 171 mm[Hg] [facility] 03-09-2023 11:20-0500 Body height 154.94 cm Jackelyn Guillory Other [facility] [employer] Other 03-09-2023 11:20-0500 Body mass index (BMI) [Ratio] 38.62 kg/m2 Jackelyn Guillory Other [employer] Other 03-09-2023 11:20-0500 Body temperature 96.7 [degF] Aziz Bakhous Other [employer] Other 03-09-2023 11:20-0500 Body weight 92.72 kg Aziz Bakhous Other [employer] Other 03-09-2023 11:20-0500 Diastolic blood pressure 60 mm[Hg] Aziz Bakhous Other [employer] Other 03-09-2023 11:20-0500 Respiratory rate 18 /min Azsasha Bakhous Other [employer] Other 03-09-2023 11:20-0500 SaO2% (BldA) [Mass fraction] 97 % Azsasha Bakhous Other [employer] Other 03-09-2023 11:20-0500 Systolic blood pressure 100 mm[Hg] Aziz Bakhous Other [employer] Other 04-07-2022 15:20-0500 Body height 154.94 cm Azsasha Bakhous Other [employer] Other 04-07-2022 15:20-0500 Body mass index (BMI) [Ratio] 39.67 kg/m2 Aziz Bakhous Other [employer] Other 04-07-2022 15:20-0500 Body temperature 97.7 [degF] Aziz Bakhous Other [employer] Other 04-07-2022 15:20-0500 Body weight 95.26 kg Aziz Bakhous Other [employer] Other 04-07-2022 15:20-0500 Diastolic blood pressure 90 mm[Hg] Jackelyn Guillory Other [employer] Other 04-07-2022 15:20-0500 Respiratory rate 18 /min Jackelyn Guillory Other [employer] Other 04-07-2022 15:20-0500 SaO2% (BldA) [Mass fraction] 97 % Jackelyn Guillory Other [employer] Other 04-07-2022 15:20-0500 Systolic blood pressure 140 mm[Hg] Jackelyn Guillory Other [employer] Other Encounters Encounter Date Encounter Type Care Provider Facility Start: 04-03-2024 End: 04-03-2024 Refill Argelia Cheng MORTGAGE COUNSELOR Work Phone: [facility] Comment on above: Other hyperlipidemia (CMS/HCC) Start: 02-02-2024 End: 02-02-2024 Clinisync Result Encounter Generic External Data Provider [facility] External [facility] Unsolicited Start: 02-02-2024 End: 02-02-2024 Clinisync Result Encounter Generic External Data Provider [facility] External [facility] Unsolicited Start: 01-24-2024 End: 01-24-2024 Clinisync Result Encounter Generic External Data Provider [facility] External Department Unsolicited Start: 01-24-2024 End: 01-24-2024 Clinisync Result Encounter Generic External Data Provider [facility] External [facility] Unsolicited Start: 01-17-2024 End: 01-17-2024 Bamboo flowsheet Argelia Cheng MORTGAGE COUNSELOR Work Phone: [facility] Start: 01-17-2024 End: 01-17-2024 Bamboo flowsheet Argelia Cheng MORTGAGE COUNSELOR Work Phone: [facility] Start: 01-17-2024 End: 01-18-2024 Refill Trace Kelly MD Work Phone: [facility] Comment on above: 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) Start: 01-17-2024 End: 01-17-2024 Assay of hemosiderin, quant Argelia Cheng MORTGAGE COUNSELOR Work Phone: [facility] Work Phone: Start: 01-17-2024 End: 01-17-2024 Patient encounter procedure Argelia Cheng MORTGAGE COUNSELOR Work Phone: [facility] Comment on above: Routine general medi korin examination at health care facility (Primary Dx) Start: 01-04-2024 End: 01-04-2024 ambulatory [facility] Start: 12-20-2023 End: 12-20-2023 Discharged Recurring MD Jackelyn Guillory Work Phone: [facility] Work Phone: Start: 12-20-2023 End: 12-20-2023 ambulatory MD Jackelyn Guillory Work Phone: [facility] Work Phone: Start: 11-23-2023 End: 11-23-2023 Clinisync Result Encounter Generic External Data Provider [facility] External Department Unsolicited Start: 11-23-2023 End: 11-23-2023 Clinisync Result Encounter Generic External Data Provider [facility] External Department Unsolicited Start: 11-23-2023 Non-patient / Non-visit MD Rowan Guillory Work Phone: [facility] [place] Work Phone: Start: 11-16-2023 End: 11-16-2023 ambulatory [facility] Work Phone: Start: 11-16-2023 End: 11-16-2023 [facility] Work Phone: Start: 11-08-2023 Non-patient / Non-visit [facility] [employer] Work Phone: Start: 10-12-2023 End: 10-12-2023 ambulatory [facility] Start: 06-29-2023 End: 06-29-2023 ambulatory [facility] Start: 04-12-2023 End: 04-12-2023 ambulatory SHAIKH RIC Not Available Start: 03-09-2023 End: 03-09-2023 ambulatory Jackelyn Wagners Other [employer] Other Start: 03-09-2023 Office outpatient vi sit 25 minutes Azsasha Wagners [facility] Start: 03-02-2023 End: 03-02-2023 ambulatory [facility] Start: 08-03-2022 End: 08-04-2022 ambulatory AZSASHA BAKRANJIT Facility:[facility] Start: 07-15-2022 Encounter for other preprocedural examination DR REINA WARD [facility] Start: 07-09-2022 End: 07-10-[address] REINA WARD Facility:[facility] Start: 07-09-2022 End: 07-10-2022 Encounter for other preprocedural examination DR REINA WARD Facility:[facility] Start: 07-09-2022 ambulatory LUIS SAMSA . Facility :[facility] Start: 05-20-2022 End: 05-21-2022 ambulatory LUIS SAMSA . Facility:[facility] Start: 04-27-2022 End: 07-08-2022 ambulatory LUIS SAMSA . Facility:[facility] Start: 04-15-2022 End: 04-16-2022 ambulatory AZIZ BAKHOUS Facility:[facility] Start: 04-07-2022 End: 04-07-2022 ambulatory Aziz Bakhous Other [employer] Other Start: 04-07-2022 Office outpatient ne w 30 minutes Jackelyn Guillory [facility] Start: 01-23-2022 End: 01-24-2022 ambulatory LUIS SCHUMACHER . Facility:[facility] Start: 01-19-2022 End: 01-20-2022 ambulatory LUIS SCHUMACHER . 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 Start: 02-02-2024 TBH URINE T PROTEIN CREAT RATIO Generic External Data Provider Start: 01-24-2024 ALL HEMOGLOBIN Generic External Data Provider Start: 11-23-2023 [facility] Gen gregory External Data Provider Plan of Treatment Date Care Activity Detail Author Start: 02-14-2027 Screening for malign ant neoplasm of colon [facility] Start: 01-16-2025 Medicare Annual Wellness (AWV) Medicare Annual Wellness (AWV) [facility] Start: 01-16-2025 Pneumococcal Vaccine : 65+ Years (1 of 2 - PCV) Pneumococcal Vaccine: 65+ Years (1 of 2 - PCV) [facility] Comment on above: Postponed from 05/25 (Patient Refused) Start: 04-18-2024 End: 04-18-2024 Patient encounter procedure 04/18/2024 2:00 PM EST Office Visit [facility] [address] [place] [address] Argelia Cheng, [place] [address] [place] [address] [facility] Start: 04-12-2024 Screening for malign ant neoplasm of colon Colorectal Cancer Screening [facility] Comment on above: Postponed from 05/25 (Patient Refused) Start: 03-13-2024 Influenza vaccination Influenza Vacc ine (#1) [facility] Comment on above: Postponed from 11/27 (Patient Refused) Start: 01-17-2024 End: 01-17-2024 Patient encounter procedure 01/17/2024 1:00 PM EDT Office Visit [facility] [address] [place] [address] Argelia Cheng, [place] [address] [facility] [place] [address] [facility] Start: 01-15-2024 Medicare Annual Wellness (AWV) Medicare Annual Wellness (AWV) [facility] Start: 11-28-2023 Influenza vaccination Influenza Vacc ine (#1) [facility] Start: 1961 Pneumococcal Vaccine : 65+ Years (1 of 2 - PCV) Pneumococcal Vaccine: 65+ Years (1 of 2 - PCV) [facility] Start: 1955 Screening for malign ant neoplasm of colon [facility] Renal function 2000 panel - Serum or Plasma [facility] Payers Date Payer Category Payer Medicare [facility] MEDICARE ADVANTAGE [facility] MEDICARE ADVANTAGE [id number] 2020-Present [id number] 2020 Medicare (Managed Care) [facility] ADVANTAGE Member Subscriber Plan / Payer (Effective 2020-Present) Name: Suasna Juares Relation to Subscriber: Self Name: Susana Juares Payer ID: Not on file Group ID: [id number] Type: Not on file Address: [address] [place] [id number] 1961 Medicare [id number] 1959 Self-pay 1955 Unknown [id number]. [id number] 1953 Unknown [id number] [id number]. 2.593 1953 Unknown [id number] [id number]. 2.593 1953 Unknown [id number] [id number]. 2.593 1953 Unknown [id number] [id number]. 2.593 1953 Unknown [id number] [id number]. 2.593 1953 Unknown [id number] 2.16.840.1.293272.3.579. 2.593 1953 Unknown [id number] [id number]. 2.593 1953 Unknown [id number] [id number]. 2.1259 1953 Unknown [id number] [id number]. 2.1259 Unknown [id number] [id number]. 2.593 Unknown [id number] [id number]. 2.531 Unknown [id number] Social History Date Type Detail Facility Unknown if ever smoked [employer] Other Start: 04-08-2023 End: 04-12-2023 Sex Assigned At [employer] Other Start: 04-12-2023 End: 11-16-2023 Tobacco smoking status NDIS Ex-smoker (finding) [facility] Start: 1955 Sex Assigned At Female [facility] Start: 03-29-1985 End: 03-29-2015 History of tobacco use Current smoker [facility] Start: 03-29-1985 End: 03-29-2015 History of tobacco use Cigarette Smoker [facility] Start: 04-08-2023 End: 04-12-2023 Cigarettes smoked current (pack per day) - Reported 1 [facility] Start: 04-12-2023 Tobacco use and exposure Smokeless tobacco non-user [facility] Start: 04-12-2023 Alcoholic beverage intake Lifetime non-drinker (finding) [facility] Do you feel stress - tense, restless, nervous, or anxious, or unable to sleep at night because your mind is troubled all the time - these days [OSQ] Only a little [facility] Start: 1955 Sex assigned at Not on file N [facility] Healthcare Goals Date Patient Goal Desired Activity /State Clinical Notes 04-07-2022 to 01-18-2024 Note Date & Type Note Facility 01-18-2024 Evaluation note Diagnosis Stage 3a chronic kidney disease (HCC) (CMS/HCC)- Primary Other hyperlipidemia (CMS/HCC) Coronary artery disease involving [place] coronary artery of [place] heart without angina pectoris (CMS/HCC) Stage 3a chronic kidney disease (HCC) ([facility]/HCC)- Primary [facility] this encounter [id number] History of Present illness Narrative* Argelia Cheng NP - 01/17/2024 1:00 PM EDT Images from the original note were not included. Subjective : Chief Complaint: Susana Juares is an 68 y.o. female here for an annual wellness visit. Specialists: Cardiology- [facility], [place] Pulmonology- Dr. Schumacher Nephrology- Dr. [...] on January 17, 2024 documented [id number] NoteUT Electrophysiology Consult Note Reason for visit: [...] and effient. She was recently seen at [facility] as a transfer from [facility] for complaints of symptomatic wide-complex tachycardia with [...] COPD (chronic obstructive pulmonary disease) ([facility]) Coronary artery disease Coronary artery disease involving [place] coronary artery of [place] heart without angina pectoris 12/28/2016 Essential hypertension [...] Intimate Partner Violence: Not At Risk (10/26/2022) [place] Safety & Environment Fear of Current or [...] Places Lived in the (more content not included)...[facility]07-16-2024 NoteUT Electrophysiology Consult Note Reason for visit: [...] and effient. She was recently seen at [facility] as a transfer from [facility] for complaints of symptomatic wide-complex tachycardia with [...] Coronary artery disease Coronary artery disease involving [place] coronary artery of [place] heart without angina pectoris 12/28/2016 Essential hypertension [...] %) nebulizer solution INHA (more content not included)...[facility]04-02-2024 NoteUT Electrophysiology Consult Note Reason for visit: [...] and effient. She was recently seen at [facility] as a transfer from [facility] for complaints of symptomatic wide-complex tachycardia with [...] Coronary artery disease Coronary artery disease involving [place] coronary artery of [place] heart without angina pectoris 12/28/2016 Essential hypertension [...] Intimate Partner Violence: Not At Risk (10/26/2022) [place] Safety [place] Fear of Current or [...] by mouth in t (more content not included)...[facility]12-12-2023 Evaluation note* Encounter Date Diagnosis Assessment Notes [...] deficiency (ICD-10 - E55.9) continue VD supplement [employer] Other 12-05-2023 NoteUT Electrophysiology Consult Note Reason for visit: PVC induced NSVT, on amiodarone HPI: Susana Dasilva Juares is a 67 y.o. year [...] and effient. She was recently seen at [facility] as a transfer from [facility] for complaints of symptomatic wide-complex tachycardia with [...] Coronary artery disease Coronary artery disease involving [place] coronary artery of [place] heart without angina pectoris 12/28/2016 Essential hypertension [...] the morning. cholecalciferol (Vitamin D-3) 50 MCG (1999 UT) tablet 1 (one) time each day at the same time. cyclobenzaprine (Flexeril) 10 mg tablet Take 10 mg by mouth if needed in the morning, at noon, and at bedtime. ferrous sulfate 324 (more content not included)...[facility]01-10-2023 Evaluation note* Encounter Date Diagnosis Assessment [...] I will recheck sodium level next visit [facility] Other Evaluation note* Diagnosis Onset Date Resolution Status Anemia acute Hyperkalemia acute Hypertensive nephropathy acu te Hyperuricemia acute Hypomagnesemia acute Hyponatremia acute Stage 3b chronic kidney disease acute Vitamin D deficiency acute [facility] Work Phone: Evaluation note* Diagnosis Stage 3a chronic kidney disease (HCC) (CMS/HCC)- Primary Other hyperlipidemia (CMS/HCC) Coronary artery disease involving [place] coronary artery of [place] heart without angina pectoris (CMS/HCC) Routine general medical examination at health care facility- Primary Routine general medical examination at a health care facility documented [facility] Diagnosis Stage 3a chronic kidney disease (HCC) (CMS/HCC)- Primary Other hyperlipidemia (CMS/HCC) Coronary artery disease involving [place] coronary artery of [place] heart without angina pectoris (CMS/HCC) Other hyperlipidemia (CMS/HCC) documented [facility] encounter [facility] Narrative - Reported* Type Description Date Medical History CHRONIC OBSTRUCTIVE PULMONARY DI SEASE Medical History HYPERTENSION Medical History GERD Medical History HYPERLIPIDEMIA Medical History HEART ATTACK Surgical History HYSTERECTOMY Surgical History GALL BLADDER Surgical History TUBES TIED Surgical History 2 HEART STENTS Hospitalization History SEE ABOVE [facility] Other History general Narrative - Reported* Type [...] History SEE ABOVE Hospitalization History V-TACH 3 [employer] Other Summary Purpose Family History Relationship Condition [...] Reason Onset Date Comments Med Refill 01/17/2024 Reason Onset Date Comments Med Refill 04/03/2024 INFORMATION SOURCE (unrecogn ized section and content) DATE CREATED AUTHOR 08/07/2022 [facility] DATE CREATED AUTHOR AUTHOR'S ORGANIZ ATION 12/22/2023 [facility] DATE CREATED AUTHOR AUTHOR'S ORGANIZ ATION 01/18/2024 [facility] DATE CREATED AUTHOR AUTHOR'S ORGANIZ ATION 01/19/2024 [facility] Care Teams (unrecognized sec tion and content) [...] Team Status: Active Member Role Status Dates Argelia Cheng NP-C Primary Care Provider Ac tive Team Status: Active Member Role Status Dates Jackelyn Guillory MD Attending Provider Active Star t: November 23, 2023 Shaikh Ric MD Primary Care Provider Active Start: November 23, 2023 Team Status: Inactive Member Role Status Dates Jackelyn Guillory MD Attending Provider, Referring Provider Active Start: December 20, 2023 End: December 20, 2023 Argelia Cheng MORTGAGE COUNSELOR-C Primary Care Provider Active Start: November 282023 End: December 20, 2023 Legislative Analyst Relationship Specialty Start Date End Date Shaikh Larios MD [address] [place] [address] PCP - Alexx FLOWER 04/29/23 Trace Kelly MD [address] [place] [address] PCP - General Family Medicine 11/10/23 Argelia Cheng NP [address] [place] [address] Nurse Practitioner Family Medicine 11/10/23 Legislative Analyst Relationship Specialty Start Date End Date Shaikh Larios MD [address] [place] [address] PCP Ana Lilia Coffey MA 04/29/23 Trace Kelly MD [address] [place] [address] PCP - General Family Medicine 01/17/24 Argelia Cheng NP [address] [place] [address] Nurse Practitioner Family Medicine 11/10/23 Legislative Analyst Relationship Specialty Start Date End Date Shaikh Larios MD [address] [place] [address] YOLANDE Coffey MA 04/29/23 Trace Kelly MD [address] [place] [address] PCP - General Family Medicine 01/17/24 Argelia Cheng NP [address] [place] [address] Nurse Practitioner Family Medicine 11/10/23 Legislative Analyst Relationship Specialty Start Date End Date Shaikh Larios MD [address] [place] [address] PCP Ana Lilia Coffey MA 04/29/23 Trace Kelly MD [address] [place] [phone] PCP - General Family Medicine 01/17/24 Argelia Cheng NP [address] [place] [address] Nurse Practitioner Family Medicine 11/10/23 Legislative Analyst Relationship Specialty Start Date End Date Shaikh Larios MD [address] [place] [address] PCP - Alexx [place] 04/29/23 Trace Kelly MD [address] [place] [phone] PCP - General Family Medicine 11/10/23 Argelia Cheng NP [address] [place] [address] Nurse Practitioner Family Medicine 11/10/23 Legislative Analyst Relationship Specialty Start Date End Date Shaikh Larios MD [address] [place] [address] PCP - Alexx [place] 04/29/23 Trace Kelly MD [address] [place] [address] PCP - General Family Medicine 01/17/24 Argelia Cheng NP [address] [place] [address] 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 [facility]. provides no warranty or guarantee of the accuracy or completeness of information in this document.
[2024-04-18 15:29] LABS: Basophils Absolute Auto 0.1 10^3/uL (0.0-0.1); Basophils Percent Auto 0.7 % (0.2-2.0); Eosinophils Absolute Auto 0.1 10^3/uL (0.0-0.7); Eosinophils Percent Auto 1.8 % (0.9-7.0); Hematocrit 38.5 % (36.0-48.0); Hemoglobin 12.3 g/dL (12.0-16.0); Immature Granulocytes Abs Auto 0.02 10^3/uL (0.00-0.03); Immature Granulocytes Pct Auto 0.3 % (0.0-0.5); Lymphocytes Absolute Auto 1.3 10^3/uL (1.2-3.8); Lymphocytes Percent Auto 18.1 % (20.5-60.0); Mean Corpuscular HGB Conc 31.9 g/dL (29.9-35.2); Mean Corpuscular Hemoglobin 30.2 pg (26.7-34.0); Mean Corpuscular Volume 94.6 fL (81.0-99.0); Mean Platelet Volume 9.5 fL (9.5-13.5); Monocytes Percent Auto 13.4 % (1.7-12.0); Neutrophils Absolute Auto 4.7 10^3/uL (1.4-6.5); Neutrophils Percent Auto 65.7 % (43.0-75.0); Platelet Count 287 10^3/uL (150-450); Red Blood Count 4.07 10^6/uL (4.20-5.40); Red Cell Distribution Width 14.9 % (11.0-15.0); White Blood Count 7.2 10^3/uL (4.0-11.0)
[2024-04-18] MEDS: NITROGLYCERIN 0.4 MG BOTTLE SL (15:38)
[2024-04-18 15:44] LABS: INR 0.97; Prothrombin Time 10.3 sec (9.0-11.6)
[2024-04-18 15:47] LABS: Alanine Aminotransferase 19 U/L (14-59); Albumin Globulin Ratio 0.9; Albumin Level 3.5 g/dL (3.4-5.0); Alkaline Phosphatase 87 U/L (46-116); Anion Gap 13.8; Aspartate Amino Transferase 17 U/L (15-37); BUN Creatinine Ratio 14.7; Bilirubin Total 0.2 mg/dL (0.2-1.0); Calcium 8.9 mg/dL (8.5-10.1); Carbon Dioxide 27.7 mmol/L (21.0-32.0); Chloride 99 mmol/L (98-107); Estimated GFR (African America 44 (>=60 mL/min/1.73m^2); Estimated GFR (Non-African Ame 36 (>=60 mL/min/1.73m^2); Globulin 3.7 g/dL; Glucose 86 mg/dL (74-106); Potassium 4.5 mmol/L (3.5-5.1); Sodium 136 mmol/L (136-145); Total Protein 7.2 g/dL (6.4-8.2)
--- NOTE | 2024-04-18 16:36 | ED.ARRPALP1 ---
HPI - Arrhythmia/Palpitations General Chief Complaint: Arrhythmia/Palpitations Stated Complaint: HEART BEAT SKIP Time Seen by Provider: 04/18/24 15:18 Source: patient Mode of arrival: walk-in Limitations: no limitations History of Present Illness HPI narrative: The patient is a 68-year-old female with history of coronary artery disease as well as hyperlipidemia and hypertension coming to the ER with 1 week history of at least of symptoms of shortness of breath that she thinks is different than her baseline COPD, have no phlegm production she denies any chest pain she mentioned that she keep feeling a skipped beat that get worse whenever she is walking Patient denies any chest pain or chest pressure at any time she also denies any dizziness nausea vomiting or any other concerns He denies any increased production of phlegm Patient was sent to us to be evaluated from her primary care office Related Data Home Medications ?Medication ?Instructions ?Recorded ?Confirmed albuterol sulfate 90 mcg/actuation 2 inh inhalation Q4H PRN shortness 10/02/22 04/18/24 aerosol inhaler of breath or wheezing atorvastatin 80 mg tablet 80 mg PO DAILY 10/02/22 04/18/24 cyclobenzaprine 10 mg tablet 10 mg PO Q8H PRN muscle spasm 10/02/22 04/18/24 fluticasone 250 mcg-salmeterol 50 1 inh inhalation BID 10/02/22 04/18/24 mcg/dose blistr powdr for inhalation furosemide 40 mg tablet 20 mg PO Q48H 10/02/22 04/18/24 ipratropium 0.5 mg-albuterol 3 mg 3 ml inhalation Q6H PRN shortness 10/02/22 04/18/24 (2.5 mg base)/3 mL nebulization of breath soln isosorbide mononitrate 30 mg 30 mg PO DAILY 10/02/22 04/18/24 tablet,extended release 24 hr olmesartan 40 mg tablet 40 mg PO DAILY 10/02/22 04/18/24 cholecalciferol (vitamin D3) 25 1,000 unit PO DAILY 04/18/24 04/18/24 mcg (1,000 unit) capsule (Vitamin D3) magnesium 200 mg tablet 200 mg PO DAILY 04/18/24 04/18/24 metoprolol succinate 100 mg 50 mg PO QDAY 04/18/24 04/18/24 tablet,extended release 24 hr omeprazole 40 mg capsule,delayed 40 mg PO DAILY 04/18/24 04/18/24 release prednisone 5 mg tablet 5 mg PO QDAY 04/18/24 04/18/24 Allergies Allergy/AdvReac Type Severity Reaction Status Date / Time hydrochlorothiazide Allergy Severe Anaphylaxis Verified 04/18/24 15:15 vancomycin Allergy Severe Anaphylaxis Verified 10/02/22 14:02 clopidogrel (From Plavix) Allergy Intermediate Rash Verified 10/02/22 14:02 Penicillins Allergy Intermediate Hives Verified 10/02/22 14:02 Sulfa (Sulfonamide Allergy Unknown Unknown Verified 04/18/24 15:10 Antibiotics) Review of Systems ROS Status of ROS 10 or more systems reviewed and unremarkable except as noted in history and below [facility] Social History Smoking status: Never smoker Little interest or pleasure in doing things: not at all Feeling down, depressed, or hopeless: not at all Exam Narrative Exam Narrative: Nurses notes and vital signs reviewed and patient is not hypoxic. General: Well-appearing and in no apparent distress. Skin: Warm, dry, no pallor noted. No rash. Head: Normocephalic, atraumatic. Neck: Supple, non-tender. Eye: Pupils are equal, round and EOMI. No scleral icterus. Ears, Nose, Mouth, and Throat: TM are clear, no nasal mucosal hypertrophy. Oral mucosa is moist, no posterior oropharynx erythema, uvula is mid-line Cardiovascular: Regular Rate and Rhythm without murmur, gallop or rub. Respiratory: No accessory muscle use or respiratory distress. Lungs are clear to auscultation, no wheezing, rales or rhonchi Chest Wall: no tenderness Back: No midline thoracic or lumbar vertebral tenderness. No CVA tenderness Musculoskeletal: normal ROM, no calf or popliteal tenderness, no lower extremity edema/swelling GI: Abdomen is soft, non-distended. Normal bowel sounds. No masses appreciated. No tenderness to palpation. No rebound, guarding, or rigidity noted. Neurological: A&O x4. No cranial nerve dysfunction observed. No truncal ataxia. Moves all extremities. Sensation intact. Psychiatric: Cooperative and interactive. Normal mood and affect. Constitutional Vital Signs, click to edit/add: Last Vital Signs Temp 98.3 F 04/18/24 15:11 Pulse 79 04/18/24 16:31 Resp 18 04/18/24 16:31 BP 168/88 H 04/18/24 16:31 Pulse Ox 98 04/18/24 16:31 O2 Del Method Room Air 04/18/24 15:23 Course Vital Signs Vital signs: Vital Signs Temperature 98.3 F 04/18/24 15:11 Pulse Rate 87 04/18/24 15:11 Respiratory Rate 16 04/18/24 15:11 Blood Pressure 192/85 H 04/18/24 15:11 Pulse Oximetry 97 04/18/24 15:11 Oxygen Delivery Method Room Air 04/18/24 15:11 Temperature 98.3 F 04/18/24 15:11 Pulse Rate 79 04/18/24 16:31 Respiratory Rate 18 04/18/24 16:31 Blood Pressure 168/88 H 04/18/24 16:31 Pulse Oximetry 98 04/18/24 16:31 Oxygen Delivery Method Room Air 04/18/24 15:23 MDM - Arrhythmia/Palpitations MDM Narrative Medical decision making narrative: The patient EKG showing sinus rhythm with a heart rate of [address] elevation or depression there is some PVCs Chest x-ray showed that the patient have possible atelectasis but with her history will order CAT scan chest for further evaluation The patient CBC and chemistry as well as troponin showed no elevation or changes The patient case was discussed with cardiology service Dr. Mustafa and right now he requested the patient blood pressure to be controlled better in addition to observation with further trending of the troponin and possible need for stress test The patient case was discussed with the hospitalist Dr Larios and he added as he knows the patient very well that she have a history of not amendable coronary artery disease but with the patient history of current shortness of breath the patient will be admitted for further observation because of her high risk Patient have history of coronary artery disease s/p 3 stents Lab Data Labs: Lab Results 04/18/24 Range/Units 15:22 WBC 7.2 (4.0-11.0) 10^3/uL RBC 4.07 L (4.20-5.40) 10^6/uL Hgb 12.3 (12.0-16.0) g/dL Hct 38.5 (36.0-48.0) % MCV 94.6 (81.0-99.0) fL MCH 30.2 (26.7-34.0) pg MCHC 31.9 (29.9-35.2) g/dL RDW 14.9 (11.0-15.0) % Plt Count 287 (150-450) 10^3/uL MPV 9.5 (9.5-13.5) fL Neut % (Auto) 65.7 (43.0-75.0) % Lymph % (Auto) 18.1 L (20.5-60.0) % Taylor % (Auto) 13.4 H (1.7-12.0) % Eos % (Auto) 1.8 (0.9-7.0) % Baso % (Auto) 0.7 (0.2-2.0) % Neut # (Auto) 4.7 (1.4-6.5) 10^3/uL Lymph # (Auto) 1.3 (1.2-3.8) 10^3/uL Taylor # (Auto) 1.0 H (0.3-0.8) 10^3/uL Eos # (Auto) 0.1 (0.0-0.7) 10^3/uL Baso # (Auto) 0.1 (0.0-0.1) 10^3/uL Abs Immat Gran (auto) 0.02 (0.00-0.03) 10^3/uL Imm/Tot Granulo (auto) 0.3 (0.0-0.5) % PT 10.3 (9.0-11.6) sec INR 0.97 Sodium 136 (136-145) mmol/L Potassium 4.5 (3.5-5.1) mmol/L Chloride 99 (98-107) mmol/L Carbon Dioxide 27.7 (21.0-32.0) mmol/L Anion Gap 13.8 BUN 21.0 H (7.0-18.0) mg/dL Creatinine 1.43 H (0.55-1.02) mg/dL Est GFR ( Amer) 44 L (>=60 mL/min/1.73m^2) Est GFR (Non-Af Amer) 36 L (>=60 mL/min/1.73m^2) BUN/Creatinine Ratio 14.7 Glucose 86 (74-106) mg/dL Calcium 8.9 (8.5-10.1) mg/dL Magnesium 2.0 (1.8-2.4) mg/dL Total Bilirubin 0.2 (0.2-1.0) mg/dL AST 17 (15-37) U/L ALT 19 (14-59) U/L Alkaline Phosphatase 87 (46-116) U/L Troponin I High Sens 10.0 (4.0-51.3) pg/mL NT-Pro-B Natriuret Pep 362.0 (<=900.0) pg/mL Total Protein 7.2 (6.4-8.2) g/dL Albumin 3.5 (3.4-5.0) g/dL Globulin 3.7 g/dL Albumin/Globulin Ratio 0.9 Discharge Plan Discharge Chief Complaint: Arrhythmia/Palpitations Clinical Impression: Ventricular premature beats, Hypertensive urgency, SOB (shortness of breath) Patient Disposition: Admitted as Observation
--- NOTE | 2024-04-18 17:08 | CT_ITS ---
[address] [address] Patient Name: CHIARA EDUARDO MRN: [id number] date: 1955 Sex: F Assigned Patient Location: ER Current Patient Location: Accession/Order Number: [id number] Exam Date: 04/18/2024 17:05 Report Date: 04/18/2024 18:03 At the request of: JC ELAM Procedure: CT chest wo con EXAM: CT chest wo con TECHNIQUE: Axial CT images were obtained of the chest following intravenous contrast administration. Sagittal and coronal reformatted images were also obtained. Dose reduction techniques were achieved by using automated exposure control and/or adjustment of mA and/or kV according to patient size and/or use of iterative reconstruction technique. HISTORY: sob and atelectasis COMPARISON: 01/24/2024 FINDINGS: Neck and Axilla: No lower neck or axillary lymphadenopathy. Mediastinum and Dariana: No hilar or mediastinal lymphadenopathy. Small axial hiatal hernia. Heart and Major Vessels: The heart appears unremarkable for size without pericardial effusion. The aorta and central pulmonary arteries are unremarkable for size.Moderate to severe coronary artery calcification. Lung Galdamez: Several stable sub-5 mm bilateral parenchymal lung nodules are stable from prior CT scans. No acute consolidation. Mild linear atelectasis and/or scarring in the right lower lung field. Pleural Spaces: No significant pleural effusion. No pneumothorax. Upper Abdomen: No acute abnormality identified. Chest Wall: Mild degenerative endplate change of the mid and lower thoracic spine. CT/CT chest wo con IMPRESSION: No acute consolidation. Electronically authenticated by: MARIAH ODOM Date: 04/18/2024 18:03
[2024-04-18 19:07] LABS: Troponin I High Sensitivity 8.5 pg/mL (4.0-51.3)
--- OUTSIDE RECORDS SUMMARY | 2024-04-18 19:44 | XMS_ITS | CCD ---
Author Organization [facility] Care Team Providers Care Ballistic Technician Name Role Phone Jackelyn Guillory Unavailable JACKELYN [...] Care Unavailable SAMSA ., LUIS Attending Unavailable LLANO, DR TIMOTHY Chandler Consulting Unavailable HOUSE, DR CASTILLO Primary Care Unavailable SAMSA ., LUIS Admitting Unavailable SAMSA ., LUIS Consulting Unavailable HOUSE, DR CASTILLO Admitting Unavailable HOUSE, DR CASTILLO Primary Care Unavailable [facility], DR CASTILLO Consulting Unavailable HOUSE, DR CASTILLO Attending Unavailable BAKHOUS, MARIOIZ Consulting Unavailable BAKHUMBERTOS, JACKELYN Attending Unavailable BAKHUMBERTOS, AZIZ Admitting Unavailable HOUSE, DR CASTILLO Primary Care [facility] HUANG Consulting Unavailable [facility], DR HUANG Attending Unavailable HOUSE, DR CASTILLO Primary Care Unavailable [facility] HUANG Admitting Unavailable SAMSA ., LUIS Consulting Unavailable SAMSA ., LUIS Attending Unavailable SAMSA ., LUIS Admitting Unavailable HOUSE, DR CASTILLO Primary Care Unavailable HOUSE, DR CASTILLO Consulting Unavailable SAMSA ., LUIS Consulting Unavailable MD Jackelyn Guillory Attending Provider [phone] MD Jackelyn Guillory Referring Provider KARO Cheng [...] Allergy Type Date of Onset Reaction(s) Facility (16 sources) clopidogrel; Translations: [CLOPIDOGREL] Drug Allergy [facility] (5 sources) hydroCHLOROthiazide; Translations: [HYDROCHLOROTHIAZIDE] Drug Allergy rash [facility] (3 sources) Penicillin; Translations: [penicillin] Drug Allergy [facility] Repository (16 sources) Vancomycin; Translations: [VANCOMYCIN] Drug Allergy anaphylaxis [facility] (2 sources) Substance with sulfonamide structure and antibacterial mechanism of action (substance) Drug allergy Unknown [employer] Other (1 source) clopidogrel Drug Allergy [facility] Repository (1 source) hydroCHLOROthiazide Drug Allergy [facility] Repository (1 source) Vancomycin Drug Allergy [facility] Repository (15 sources) Penicillins; Translations: [Penicillins] Allergy to substance [facility] (4 sources) Sulfonamides (Antibiotic); Translations: [Sulfa (Sulfonamide Antibiotics)] Allergy to substance Unknown Reaction [facility] (1 source) clopidogrel Drug Allergy [facility] Repository (1 source) hydroCHLOROthiazide Drug Allergy [facility] Repository (1 source) Vancomycin Drug Allergy [facility] Repository (11 sources) hydroCHLOROthiazide Drug Allergy [facility] (12 sources) Sodium Chloride; Translations: [SODIUM CHLORIDE] Drug Allergy [facility] (11 sources) Sulfacetamide Drug Allergy [facility] Medications Current Medications Medication Drug Class(es) Dates Sig (Normalized) Sig (Original) [id number] 200 actuat albuterol 0.09 mg/actuat metered dose inhaler (15 sources) beta2-Adrenergic Agonist Start: 11-16-2023 take 1 [...] / ipratropium bromide 0.167 mg/ml inhalation solution (15 sources) Anticholinergic, beta2-Adrenergic Agonist Start: 11-16-2023 take 1 mL by inhalation every six hours Ipratropium-Albuterol Active 3 ML INHALATION Every 6 hours November 16, 2023 12:00am ipratropium-albu terol (Duo-Neb) 0.5-2.5 mg/3 mL nebulizer solution Take 3 mL by nebulization every 6 (six) hours Active aspirin 81 mg delayed release oral tablet (15 sources) Platelet Aggregation Inhibitor, Nonsteroidal Anti-inflammatory Drug Start: 11-16-2023 take 81 mg by mouth once daily Aspirin Active 81 MG PO Daily November 16, 2023 12:00am atorvastatin 80 mg oral tablet (16 sources) HMG-CoA Reductase Inhibitor Start: 10-14-2023 End: [...] day Active cholecalciferol 0.025 mg oral tablet (13 sources) Vitamin D Start: 01-18-2024 take 1 [...] Active cyclobenzaprine hydrochloride 10 mg oral tablet (11 sources) Muscle Relaxant take 5 mg by mouth three times daily as needed for muscle spasms cyclobenzaprine (Flexeril) 10 MG tablet Take 5 mg by mouth 3 (three) times a day as needed for muscle spasms Active Fluticasone Propion-Salmeterol (15 sources) Corticosteroid, beta2-Adrenergic Agonist Start: 11-16-19 Fluticasone [...] day Active furosemide 20 mg oral tablet (15 sources) Loop Diuretic Start: 11-16-2023 take 20 mg by mouth once daily Furosemide Active 20 MG PO Daily November 16, 2023 12:00am furosemide (Lasi x) 40 MG tablet Take 20 mg by mouth in the morning. Active Furosemide 20 MG as directed Orally Once a day Active Furosemide 40 MG 1 1/2 tablet Orally Once a day Active ipratropium bromide 0.2 mg/ml inhalation solution (2 sources) Anticholinergic Start: 08-09-2023 ipratropium (Atrovent) 0.02 % nebulizer solution Take 0.5 mg by nebulization in the morning and 0.5 mg at noon and 0.5 mg in the evening and 0.5 mg before bedtime. 08/09/2023 Active 24 hr isosorbide mononitrate 30 mg extended release oral tablet (14 sources) Nitrate Vasodilator Start: 11-16-2023 take 30 mg by mouth once daily Isosorbide Mononitrate Active 30 MG PO Daily November 16, 2023 12:00am Magnesium (3 sources) take 200 mg by mouth in the morning MAGNESIUM PO Take 200 mg by mouth in the morning. Active take 1 tablet by mouth twice ruslan ly Magnesium 250 MG 1 tablet with a [...] / pyridoxine hydrochloride 25 mg oral tablet (11 sources) take 1 tablet by mouth in the morning magnesium oxide-pyridoxine (Beelith) 362-20 MG tablet Take 1 tablet by mouth in the morning. Active olmesartan medoxomil 40 mg oral tablet (15 sources) Angiotensin 2 Receptor Fernando Start: 11-16-19 take 40 mg by mouth once daily Olmesartan Active 40 MG PO Daily November 16, 2023 12:00am omeprazole 20 mg delayed release oral capsule (15 sources) Proton Pump Inhibitor Start: 11-16-19 take 20 mg by mouth once daily [...] 2023 12:00am predniSONE 5 mg oral tablet (4 sources) Start: 03-23-2024 take 1 tablet by mouth once daily at mealtime predniSONE (Deltasone) 5 MG tablet Take 5 mg by mouth Daily Take with food. 03/23/2024 Active Start: 11-16-2023 take 5 mg by mouth once Predni sone Active 5 MG PO Once November 16, [...] 1 tablet Orally ONCE A DAY Active 24 hr metoprolol succinate 100 mg extended release oral tablet (17 sources) beta-Adrenergic Fernando Start: 01-17-2024 End: 04-18-2024 take 0.5 tablet by mouth once daily metoprolol succinate XL (Toprol-XL) 100 MG 24 hr tablet Take 0.5 tablets (50 mg) by mouth Daily Do not crush or chew. 01/17/2024 04/18/2024 Discontinued Start: 11-16-2023 take 100 mg by mouth [...] with food Orally Twice a day Active Problems Active Problems Problem Classification Problem Date Documented Date Episodic/Chronic Cardiac dysrhythmias (6 sources) Cardiac arrhythmia, unspecified; Translations: [Irregular heart beat] Onset: 10-26-2022 Chronic Chronic kidney disease (20 sources) Chronic kidney disease stage 3A ; Translations: [Chronic kidney disease, stage 3a] Onset: 01-08-2022 11-13-2023 Chronic Chronic kidney disease (4 sources) Chronic kidney disease; Translations: [CHRONIC KIDNEY DISEASE STAGE 3A] Onset: 08-06-2022 Chronic obstructive pulmonary disease and bronchiectasis (16 sources) Chronic obstructive pulmonary disease, unspecified; Translations: [Chronic obstructive lung disease] Onset: 12-28-2016 Chronic Coronary atherosclerosis and other heart disease (17 sources) Atherosclerotic heart disease of [place] coronary artery without angina pectoris; Translations: [Coronary arteriosclerosis] Onset: 12-28-2016 Chronic Deficiency and other anemia (3 sources) Anemia, unspecified; Translations: [Anemia, unspecified] Episodic Deficiency and other anemia (2 sources) Anemia; Translations: [Anemia, unspecified] 11-13-2023 Episodic Disorders of lipid metabolism (12 sources) Hyperlipidemia; Translations: [Other hyperlipidemia] Onset: 04-12-2023 04-12-2023 Chronic Essential hypertension (13 sources) Essential hypertension; Translations: [Essential (primary) hypertension] Onset: 12-14-2016 04-12-2023 Chronic Hypertension with complications and secondary hypertension (15 sources) Hypertensive renal disease; Translations: [Hypertensive chronic kidney disease with stage 1 through stage 4 chronic kidney disease, or unspecified chronic kidney disease] Onset: 01-08-2022 Chronic Nutritional deficiencies (6 sources) Vitamin D deficiency; Translations: [Vitamin D deficiency, unspecified] Chronic Other nutritional; endocrine; and metabolic disorders (14 sources) Hypomagnesemia; Translations: [Hypomagnesemia] Onset: 10-27-2022 11-13-2023 [...] of mental health and substance abuse codes (15 sources) Personal history of nicotine dependence; Translations: [Ex-smoker] Onset: 01-22-2020 Episodic Spondylosis; intervertebral disc disorders; other back problems (11 sources) Low back pain; Translations: [Lower back pain] Onset: 12-28-2016 04-12-2023 Episodic Results Test Name Value Interpretation Reference Range Facility [facility] URINE T PROTEIN CREAT RA TIOon 02-02-2024 CREATININE URINE RANDOM 78.2 mg/dL 20.00 - 300.00 [facility] Protein (U) [Mass/Vol] 8.7 mg/dL NINF - 11.9 mg/dL [facility] PROTEIN CREATININE RATIO URINE 0.11 [facility] ALL HEMOGLOBINon 01-24-2024 Hemoglobin (Bld) [Mass/Vol] 11 g/dL Low 12.0 - 16.0 g/dL [facility] Interpretation and review of laboratory results Abnormal [facility] 36on 01-04-2024 36 Patient seen today by Dr. Mustafa. He wants to know if she can stop Effient due to easy bruising/bleeding. Please advise. Thanks. Normal [facility] Office Visiton 01-04-2024 Follow-up visit [id number] Susana Juares 1955 F Date Provider Department Center 01/04/2024 XANDER FRALEY [facility] De[facility] Family History Problem Relation Age of Onset Stroke Mother Kidney disease Father Coronary artery disease Paternal Grandfather Family Status - Relation Status Age at Mother Father Paternal Grandfather Level of Service:66487 MO OFFICE/OUTPATIENT ESTABLISHED LOW MDM 20 MIN Normal [facility] Iron binding capacity [Mass/ volume] in Serum or Plasmaon 11-23-2023 Iron binding capacity [Mass/Vol] 365.0 ug/dL 250.0-450.0 [facility] Iron saturation [Mass Fracti on] in Serum or Plasmaon 11-23-2023 Iron saturation [Mass fraction] 5.5 % [facility] Laboratory - Chemistry and C hemistry - challengeon 11-23-2023 Ferritin [Mass/Vol] 25.0 ng/mL 8.0-252.0 [facility] Iron [Mass/Vol] 20.0 ug/dL Low 50.0-170.0 [facility] METRO IRON AND TIBCon 2023 Interpretation and review of laboratory results Abnormal [facility] IRON 20.0 ug/dL Low 50.0 - 170.0 ug/dL [facility] PERCENT IRON SATURATION 5.5 % [facility] TOTAL IRON BINDING CAPACITY 365.0 ug/dL 250.0 - 450.0 ug/dL [facility] Healthcar e Erythrocyte distribution wid th Auto (RBC) [Ratio]on 11-08-2023 Erythrocyte distribution width (RBC) [Ratio] 16.4 % High 11.0-15.0 [facility] Estimated glomerular filtrat ion rate (GFR) non- Americanon 11-08-2023 GFR/1.73 sq M.predicted among non-blacks MDRD (S/P/Bld) [Vol rate/Area] 37 mL/min/{1.73_m2} Low >=60 [facility] Globulin Calc (S) [Mass/Vol] on 11-08-2023 Globulin (S) [Mass/Vol] 3.9 g/dL [facility] Hematocrit Auto (Bld) [Volum e fraction]on 11-08-2023 Hematocrit (Bld) [Volume fraction] 28.1 % Low 36.0-48.0 [facility] Hemoglobin [Mass/volume] in Bloodon 11-08-2023 Hemoglobin (Bld) [Mass/Vol] 8.7 g/dL Low 12.0-16.0 [facility] Laboratory - Chemistry and C hemistry - challengeon 11-08-2023 Albumin [Mass/Vol] 3.4 g/dL 3.4-5.0 [facility] ALP [Catalytic activity/Vol] 81 U/L 46-116 [facility] ALT [Catalytic activity/Vol] 26 U/L 14-59 [facility] AST [Catalytic activity/Vol] 23 U/L 15-37 [facility] Bilirubin [Mass/Vol] 0.3 mg/dL 0.2-1.0 [facility] Calcium [Mass/Vol] 8.7 mg/dL 8.5-10.1 [facility] Chloride [Moles/Vol] 93 mmol/L Low 98-107 [facility] CO2 [Moles/Vol] 27.4 mmol/L 21.0-32.0 [facility] Creatinine [Mass/Vol] 1.40 mg/dL High 0.55-1.02 [facility] GFR/1.73 sq M.predicted MDRD (S/P/Bld) [Vol rate/Area] 45 mL/min/{1.73_m2} Low >=60 [facility] Glucose [Mass/Vol] 96 mg/dL 74-106 [facility] Magnesium [Mass/Vol] 2.2 mg/dL 1.8-2.4 [facility] Potassium [Moles/Vol] 4.4 mmol/L 3.5-5.1 [facility] Protein [Mass/Vol] 7.3 g/dL 6.4-8.2 [facility] Sodium [Moles/Vol] 128 mmol/L Low 136-145 [facility] Urate [Mass/Vol] 5.6 mg/dL 2.6-6.0 [facility] Urea nitrogen [Mass/Vol] 20.0 mg/dL High 7.0-18.0 [facility] Urea nitrogen/Creatinine [Mass ratio] 14.3 mg/mg [facility] Bilirubin Ql (U) Negative NEGATIVE [facility] Glucose (U) [Mass/Vol] Negative NEGATIVE [facility] Ketones Ql (U) Negative NEGATIVE [facility] pH (U) 7.5 [pH] 5.0-9.0 [facility] Specific gravity (U) [Rel density] 1.010 1.005-1.025 [facility] Urobilinogen Qn (U) 0.2 {Chuy'U}/dL 0.2-1.0 [facility] Laboratory - Specimen inform ationon 11-08-2023 Appearance (U) CLEAR CLEAR [facility] Color (U) YELLOW YELLOW [facility] Laboratory - Urinalysison Leukocyte esterase Test strip Ql (U) Negative NEGATIVE [facility] Nitrite Ql (U) Negative NEGATIVE [facility] Protein (U) [Mass/Vol] 11.9 mg/dL <=11.9 [facility] Protein Ql (U) Negative NEG/TRACE [facility] Leukocytes [#/volume] correc maryuri for nucleated erythrocytes in Blood by Automated counon 11-08-2023 WBC corrected for nucl RBC Auto (Bld) [#/Vol] 7.3 10 3/uL 4.0-11.0 [facility] MCH Auto (RBC) [Entitic mass ]on 11-08-2023 MCH (RBC) [Entitic mass] 26.1 pg Low 26.7-34.0 [facility] MCHC Auto (RBC) [Mass/Vol]on 11-08-2023 MCHC (RBC) [Mass/Vol] 31.0 g/dL 29.9-35.2 [facility] MCV Auto (RBC) [Entitic vol] on 11-08-2023 MCV (RBC) [Entitic vol] 84.4 fL 81.0-99.0 [facility] No Panel Informationon 11-07 25-Hydroxy Vitamin D Total 32.6 ng/mL [facility] Comment on above: <20 ng/mL Vit D defi cient20-<30 ng/mL Vit D srssgryuxquq66-369 ng/mL Vit D sufficient>100 ng/mL Potential Toxicity Parathyroid Hormone (Intact) 106 pg/mL Abnormal 15-65 [facility] Comment on above: Performed at: - [employer] [address] [id number] Director: True Herron PhD, Phone: [phone] Phosphorus Level 3.8 mg/dL 2.6-4.7 [facility] Urine Occult Blood Negative NEGATIVE [facility] Urine Random Creatinine 73.41 mg/dL 20.00-300.00 [facility] Platelet mean volume Auto (B ld) [Entitic vol]on 11-08-2023 Platelet mean volume (Bld) [Entitic vol] 8.6 fL Low 9.5-13.5 [facility] Platelets Auto (Bld) [#/Vol] on 11-08-2023 Platelets (Bld) [#/Vol] 401 10 3/uL 150-450 [facility] RBC Auto (Bld) [#/Vol]on RBC (Bld) [#/Vol] 3.33 10 6/uL Low 4.20-5.40 [facility] Serum or plasma albumin/glob ulin mass ratioon 11-08-2023 Albumin/Globulin [Mass ratio] 0.9 {ratio} [facility] Serum or plasma anion gap de terminationon 11-08-2023 Anion gap [Moles/Vol] 12.0 mmol/L [facility] Urine protein/creatinine rat ioon 11-08-2023 Protein/Creatinine (U) [Ratio] 0.16 [facility] Follow-Upon 10-12-2023 Follow-Up [id number] Susana Juares 1955 F Date Provider Department Center 10/12/2023 XANDER FARLEY Family History Problem Relation Age of Onset Stroke Mother Kidney disease Father Coronary artery disease Paternal Grandfather Family Status - Relation Status Age at Mother Father Paternal Grandfather Level of Service:68247 MO OFFICE/OUTPATIENT ESTABLISHED MOD MDM 30 MIN Normal [facility] Office Visiton 06-29-2023 Follow-up visit [id number] Susana Juares 1955 F Date Provider Department Center 06/29/2023 XANDER FARLEY Family History Problem Relation Age of Onset Stroke Mother Kidney disease Father Coronary artery disease Paternal Grandfather Family Status - Relation Status Age at Mother Father Paternal Grandfather Level of Service:30785 MO OFFICE/OUTPATIENT ESTABLISHED LOW MDM 20 MIN Reason for Visit and Comments: Follow-up [312736] - Holter monitor results Normal [facility] Office Visiton 03-02-2023 Follow-up visit [id number] Susana Juares 1955 F Date Provider Department Center 03/02/2023 XANDER FARLEY Family History Problem Relation Age of Onset Stroke Mother Kidney disease Father Coronary artery disease Paternal Grandfather Family Status - Relation Status Age at Mother Father Paternal Grandfather Level of Service:83821 MO OFFICE/OUTPATIENT NEW MODERATE MDM 45-59 MINUTES Normal [facility] PTH INTACTon 08-04-2022 PTH, Intact 41 pg/mL Normal 15-65 [facility] Comment on above: Performed By: #### P THINT ####[facility] [address] [place], [place] [address]CcDr. Osmel Shelton HEMOGRAM AND PLATELon 2022 Hematocrit (Bld) [Volume fraction] 34.6 % Critically low 36.0-48.0 [facility] Comment on above: Performed By: #### H H #### [facility] [address] [address] [address] Osmel Shelton Hemoglobin (Bld) [Mass/Vol] 11.1 g/dL Critically low 12.0-16.0 [facility] Comment on above: Performed By: #### H H #### [facility] [address] [address] [address] Osmel Shelton MCH (RBC) [Entitic mass] 29.3 pg Normal 26.7-34.0 [facility] Comment on above: Performed By: #### H H #### [facility] [address] [address] [address] Osmel Shelton MCHC (RBC) [Mass/Vol] 32.1 g/dL Normal 29.9-35.2 [facility] Comment on above: Performed By: #### H H #### [facility] [address] [address] [address] Osmel Shelton MCV (RBC) [Entitic vol] 91.3 fL Normal 81.0-99.0 [facility] Comment on above: Performed By: #### H H #### [facility] [address] [address] [address] Osmel Shelton PLT 306 103/ul Normal 150-450 [facility] Comment on above: Performed By: #### H H #### [facility] [address] [address] [address] Osmel Shelton RBC 3.79 106/ul Critically low 4.20-5.40 [facility] Comment on above: Performed By: #### H H #### [facility] [address] [address] [address] Osmel Shelton WBC 4.8 103/ul Normal 4.0-11.0 [facility] Comment on above: Performed By: #### H H #### [facility] [address] [address] [address] Osmel Shelton MAGNESIUMon 08-03-2022 Magnesium [Mass/Vol] 1.9 mg/dL Normal 1.8-2.4 [facility] Comment on above: Performed By: #### P HOS, MG, CMP, URIC #### [facility] [address] [address] [address] Osmel Shelton PHOSPHORUSon 08-03-2022 Phosphate [Mass/Vol] 4.4 mg/dL Normal 2.6-4.7 [facility] Comment on above: Performed By: #### P HOS, MG, CMP, URIC #### [facility] [address] [address] [address] Osmel Shelton PROF 14(COMP METB)on 023 Albumin [Mass/Vol] 3.6 g/dL Normal 3.4-5.0 [facility] Comment on above: Performed By: #### P HOS, MG, CMP, URIC ####[facility] [address] [address]Dr. Osmel Shelton Albumin/Globulin [Mass ratio] 0.9 {ratio} Normal [facility] Comment on above: Performed By: #### P HOS, MG, CMP, URIC ####[facility] [address] [address]Dr. Osmel Shelton ALP [Catalytic activity/Vol] 136 U/L Critically high 46-116 [facility] Comment on above: Performed By: #### P HOS, MG, CMP, URIC ####[facility] [address] [address]Dr. Osmel Shelton ALT [Catalytic activity/Vol] 29 U/L Normal 14-59 [facility] Comment on above: Performed By: #### P HOS, MG, CMP, URIC ####[facility] [address] [address]Dr. Osmel Shelton Anion gap [Moles/Vol] 13.5 mmol/L Normal [facility] Comment on above: Performed By: #### P HOS, MG, CMP, URIC ####[facility] [address] [place], [place] [address]Dr. Osmel Shelton AST [Catalytic activity/Vol] 27 U/L Normal 15-37 [facility] Comment on above: Performed By: #### P HOS, MG, CMP, URIC ####[facility] [address] [place], [place] [address]Dr. Osmel Shelton Bilirubin [Mass/Vol] 0.2 mg/dL Normal 0.2-1.0 [facility] Comment on above: Performed By: #### P HOS, MG, CMP, URIC ####[facility] [address] [place], [place] [address]Dr. Osmel Shelton Calcium [Mass/Vol] 9.0 mg/dL Normal 8.5-10.1 [facility] Comment on above: Performed By: #### P HOS, MG, CMP, URIC ####[facility] [address] [place], [place] [address]Dr. Osmel Shelton Chloride [Moles/Vol] 100 mmol/L Normal 98-107 [facility] Comment on above: Performed By: #### P HOS, MG, CMP, URIC ####[facility] [address] [place], [place] [address]Dr. Osmel Shelton CO2 [Moles/Vol] 25.7 mmol/L Normal 21.0-32.0 [facility] Comment on above: Performed By: #### P HOS, MG, CMP, URIC ####[facility] [address] [place], [place] [address]Dr. Osmel Shelton Creatinine [Mass/Vol] 1.40 mg/dL Critically high 0.55-1.02 [facility] Comment on above: Performed By: #### P HOS, MG, CMP, URIC ####[facility] [address] [address]Dr. Osmel Shelton EGFR-AF BELARUSIAN 45 mL/min/1.73m2 Critically low >=60 [facility] Comment on above: Performed By: #### P HOS, MG, CMP, URIC ####[facility] [address] [address]Dr. Osmel Shelton EGFR-NON AF BELARUSIAN 37 mL/min/1.73m2 Critically low >=60 [facility] Comment on above: Performed By: #### P HOS, MG, CMP, URIC ####[facility] [address] [place], [place] [address]Dr. Osmel Shelton Globulin (S) [Mass/Vol] 4.2 g/dL Normal [facility] Comment on above: Performed By: #### P HOS, MG, CMP, URIC ####[facility] [address] [place], [place] [address]Dr. Moiramarcia Shelton Glucose [Mass/Vol] 101 mg/dL Normal 74-106 [facility] Comment on above: Performed By: #### P HOS, MG, CMP, URIC ####[facility] [address] [place], [place] [address]Dr. Osmel Shelton Potassium [Moles/Vol] 4.2 mmol/L Normal 3.5-5.1 [facility] Comment on above: Performed By: #### P HOS, MG, CMP, URIC ####[facility] [address] [place], [place] [address]Dr. Osmel Shelton Protein [Mass/Vol] 7.8 g/dL Normal 6.4-8.2 [facility] Comment on above: Performed By: #### P HOS, MG, CMP, URIC ####[facility] [address] [place], [place] [address]Dr. Osmel Shelton Sodium [Moles/Vol] 135 mmol/L Critically low 136-145 [facility] Comment on above: Performed By: #### P HOS, MG, CMP, URIC ####[facility] [address] [id number]. Osmel Shelton Urea nitrogen [Mass/Vol] 23.0 mg/dL Critically high 7.0-18.0 [facility] Comment on above: Performed By: #### P HOS, MG, CMP, URIC ####[facility] [address] [id number]. Osmel Shelton Urea nitrogen/Creatinine [Mass ratio] 16.4 mg/mg Normal [facility] Comment on above: Performed By: #### P HOS, MG, CMP, URIC ####[facility] [address] [address]DrLissett Shelton UA RANDOMon 08-03-2022 Bilirubin Ql (U) Negative Normal NEGATIVE [facility] Comment on above: Performed By: #### U A #### [facility] [address] [place] [address] Dr. Osmel Shelton Clarity (U) CLEAR Normal CLEAR [facility] Comment on above: Performed By: #### U A #### [facility] [address] [place] [address] Dr. Osmel Shelotn Color (U) LT. YELLOW Normal YELLOW [facility] Comment on above: Performed By: #### U A #### [facility] [address] [place] [address] Dr. Osmel Shelton Glucose Ql (U) Negative Normal NEGATIVE [facility] Comment on above: Performed By: #### U A #### [facility] [address] [place] [address] Dr. Osmel Shelton Hemoglobin Ql (U) Negative Normal NEGATIVE [facility] Comment on above: Performed By: #### U A #### [facility] [address] [place] [address] Dr. Oseml Shelton Ketones Ql (U) Negative Normal NEGATIVE [facility] Comment on above: Performed By: #### U A #### [facility] [address] [place] [address] Dr. Osmel Shelton LEUKOCYTES Negative Normal NEGATIVE [facility] Comment on above: Performed By: #### U A #### [facility] [address] [address] [address] Osmel Shelton Nitrite Ql (U) Negative Normal NEGATIVE [facility] Comment on above: Performed By: #### U A #### [facility] [address] [address] [address] Osmel Shelton pH (U) 5.5 [pH] Normal 5-9 [facility] Comment on above: Performed By: #### U A #### [facility] [address] [address] [address] Osmel Shelton SPEC GRAVITY <=1.005 Abnormal 1.005-<=1.025 [facility] Comment on above: Performed By: #### U A #### [facility] [address] [place] [address] Dr. Osmel Shelton UA PROTEIN Negative Normal NEGATIVE/ TRACE [facility] Comment on above: Performed By: #### U A #### [facility] [address] [place] [address] Dr. Osmel Shelton Urobilinogen Qn (U) 0.2 {Chuy'U}/dL Normal 0.2 - 1. 0 [facility] Comment on above: Performed By: #### U A #### [facility] [address] [address] [address] Osmel Shelton URIC ACID SERUMon 08-03-2022 Urate [Mass/Vol] 8.4 mg/dL Critically high 2.6-6.0 [facility] Comment on above: Performed By: #### P HOS, MG, CMP, URIC ####[facility] [address] [address]Dr. Osmel Shelton URINE T PROTEIN CREAT RATIOo n 08-03-2022 Protein (U) [Mass/Vol] 4.6 mg/dL Normal <=12.0 [facility] Comment on above: Performed By: #### U RTPCR #### [facility] [address] [address] [address] Osmel Shelton UR PROT CREAT RAT 0.09 Normal [facility] Comment on above: Performed By: #### U RTPCR #### [facility] [address] [place] [address] Dr. Osmel Shelton URINE CREAT 50.21 mg/dL Normal 20.00-300.[address] [facility] Comment on above: Performed By: #### U RTPCR #### [facility] [address] [place] [address] Dr. Osmel Shelton VITAMIN D 25 OHon 08-03-2022 VIT D 25-OH 20.9 ng/mL Normal [facility] Comment on above: Performed By: #### V ITAD ####[facility] [address] [address]Dr. Osmel Shelton VIT D RANGES SEE BELOW Normal [facility] Comment on above: Result Comment: <20 ng/mL Vit D deficient 20 - <30 ng/mL Vit D insufficient 30 - 100 ng/mL Vit D sufficient >100 ng/mL Potential Toxicity Performed By: #### V ITAD ####[facility] [address] [place], [place] [address]Dr. Osmel Shelton CBC AUTO DIFFon 07-09-2022 BASO # 0.0 103/ul Normal 0.0-0.1 [facility] Comment on above: Performed By: #### C BC #### [facility] [address] [place] [address] Dr. Osmel Shelton Basophils/100 WBC (Bld) 0.5 % Normal 0.2-2.0 [facility] Comment on above: Performed By: #### C BC #### [facility] [address] [place] [address] Dr. Osmel Shelton EO # 0.2 103/ul Normal 0.0-0.7 [facility] Comment on above: Performed By: #### C BC #### [facility] [address] [place] [address] Dr. Osmel Shelton Eosinophils/100 WBC (Bld) 2.9 % Normal 0.9-7.0 [facility] Comment on above: Performed By: #### C BC #### [facility] [address] [place] [address] Dr. Osmel Shelton Erythrocyte distribution width (RBC) [Ratio] 14.3 % Normal 11.0-15.0 [facility] Comment on above: Performed By: #### C BC #### [facility] [address] [place] [address] Dr. Osmel Shelton Hematocrit (Bld) [Volume fraction] 34.4 % Critically low 36.0-48.0 [facility] Comment on above: Performed By: #### C BC #### [facility] [address] [place] [address] Dr. Osmel Shelton Hemoglobin (Bld) [Mass/Vol] 11.4 g/dL Critically low 12.0-16.0 [facility] Comment on above: Performed By: #### C BC #### [facility] [address] [place] [address] Dr. Osmel Shelton IG # 0.02 10e3/ul Normal 0.00-0.03 [facility] Comment on above: Performed By: #### C BC #### [facility] [address] [place] [address] Dr. Osmel Shelton IG % 0.4 % Normal 0.0-0.5 [facility] Comment on above: Performed By: #### C BC #### [facility] [address] [place] [address] Dr. Osmel Shelton LYMPH # 1.3 103/ul Normal 1.2-3.8 [facility] Comment on above: Performed By: #### C BC #### [facility] [address] [place] [address] Dr. Osmel Shelton Lymphocytes/100 WBC (Bld) 23.0 % Normal 20.5-60.0 [facility] Comment on above: Performed By: #### C BC #### [facility] [address] [place] [address] Dr. Osmel Shelton MANUAL DIFF REQ NO Normal [facility] Comment on above: Performed By: #### C BC #### [facility] [address] [place] [address] Dr. Osmel Shelton MCH (RBC) [Entitic mass] 29.8 pg Normal 26.7-34.0 [facility] Comment on above: Performed By: #### C BC #### [facility] [address] [place] [address] Dr. Osmel Shelton MCHC (RBC) [Mass/Vol] 33.1 g/dL Normal 29.9-35.2 [facility] Comment on above: Performed By: #### C BC #### [facility] [address] [place] [address] Dr. Osmel Shelton MCV (RBC) [Entitic vol] 89.8 fL Normal 81.0-99.0 [facility] Comment on above: Performed By: #### C BC #### [facility] [address] [place] [address] Dr. Osmel Shelton MONO # 0.6 103/ul Normal 0.3-0.8 [facility] Comment on above: Performed By: #### C BC #### [facility] [address] [place] [address] Dr. Osmel Shelton Monocytes/100 WBC (Bld) 11.0 % Normal 1.7-12.0 [facility] Comment on above: Performed By: #### C BC #### [facility] [address] [place] [address] Dr. Osmel Shelton NEUT # 3.4 103/ul Normal 1.4-6.5 [facility] Comment on above: Performed By: #### C BC #### [facility] [address] [place] [address] Dr. Osmel Shelton Neutrophils/100 WBC (Bld) 62.2 % Normal 43.0-75.0 [facility] Comment on above: Performed By: #### C BC #### [facility] [address] [place] [address] Dr. Osmel Shelton Platelet mean volume (Bld) [Entitic vol] 9.4 fL Critically low 9.5-13.5 [facility] Comment on above: Performed By: #### C BC #### [facility] [address] [place] [address] Dr. Osmel Shelton PLT 327 103/ul Normal 150-450 [facility] Comment on above: Performed By: #### C BC #### [facility] [address] [address] [address] Osmel Shelton RBC 3.83 106/ul Critically low 4.20-5.40 [facility] Comment on above: Performed By: #### C BC #### [facility] [address] [id number] [address] Osmel Shelton WBC 5.5 103/ul Normal 4.0-11.0 [facility] Comment on above: Performed By: #### C BC #### [facility] [address] [address] [address] Osmel Shelton PROF CHEM 8 (BAS METB)on Anion gap [Moles/Vol] 11.7 mmol/L Normal [facility] Comment on above: Performed By: #### B MP ####[facility] [address] [address]Dr. Osmel Shelton Calcium [Mass/Vol] 8.8 mg/dL Normal 8.5-10.1 [facility] Comment on above: Performed By: #### B MP ####[facility] [address] [address]Dr. Osmel Shelton Chloride [Moles/Vol] 99 mmol/L Normal 98-107 [facility] Comment on above: Performed By: #### B MP ####[facility] [address] [address]Dr. Osmel Shelton CO2 [Moles/Vol] 27.1 mmol/L Normal 21.0-32.0 [facility] Comment on above: Performed By: #### B MP ####[facility] [address] [address]Dr. Osmel Shelton Creatinine [Mass/Vol] 1.38 mg/dL Critically high 0.55-1.02 [facility] Comment on above: Performed By: #### B MP ####[facility] [address] [address]Dr. Osmel Shelton EGFR-AF BELARUSIAN 46 mL/min/1.73m2 Critically low >=60 [facility] Comment on above: Performed By: #### B MP ####[facility] [address] [address]Dr. Osmel Shelton EGFR-NON AF BELARUSIAN 38 mL/min/1.73m2 Critically low >=60 [facility] Comment on above: Performed By: #### B MP ####[facility] [address] [address]Dr. Osmel Shelton Glucose [Mass/Vol] 105 mg/dL Normal 74-106 [facility] Comment on above: Performed By: #### B MP ####[facility] [address] [place], [place] [address]Dr. Osmel Shelton Potassium [Moles/Vol] 4.8 mmol/L Normal 3.5-5.1 [facility] Comment on above: Performed By: #### B MP ####[facility] [address] [place], [place] [address]Dr. Osmel Shelton Sodium [Moles/Vol] 133 mmol/L Critically low 136-145 [facility] Comment on above: Performed By: #### B MP ####[facility] [address] [place], [place] [address]Dr. Osmel Shelton Urea nitrogen [Mass/Vol] 19.0 mg/dL Critically high 7.0-18.0 [facility] Comment on above: Performed By: #### B MP ####[facility] [address] [place], [place] [address]Dr. Osmel Shelton Urea nitrogen/Creatinine [Mass ratio] 13.8 mg/mg Normal [facility] Comment on above: Performed By: #### B MP ####[facility] [address] [place], [place] [address]Dr. Osmel Shelton PULMONARY FUNCTION TESTon PULMONARY FUNCTION [...] ambulatory O2 indicated. Clinical correlation required. Normal [facility] US KIDNEYSon 04-15-2022 US KIDNEYS EXAMINATION: [...] by: TIMOTHY GUIDRY Date: 2022-04-15 16:21 [address] [facility] CT LUNG CANCER SCREENINGon 1 CT [...] TIMOTHY GUIDRY Date: 2022-01-19 14:40 Normal [facility] CBC AUTO DIFFon 01-05-2022 BASO # 0.1 103/ul Normal 0.0-0.1 [facility] Comment on above: Performed By: #### C BC #### [facility] [address] [place] [address] Dr. Osmel Shelton Basophils/100 WBC (Bld) 1.0 % Normal 0.2-2.0 [facility] Comment on above: Performed By: #### C BC #### [facility] [address] [place] [address] Dr. Osmel Shelton EO # 0.2 103/ul Normal 0.0-0.7 [facility] Comment on above: Performed By: #### C BC #### [facility] [address] [place] [address] Dr. Osmel Shelton Eosinophils/100 WBC (Bld) 3.6 % Normal 0.9-7.0 [facility] Comment on above: Performed By: #### C BC #### [facility] [address] [place] [address] Dr. Osmel Shelton Erythrocyte distribution width (RBC) [Ratio] 14.1 % Normal 11.0-15.0 [facility] Comment on above: Performed By: #### C BC #### [facility] [address] [place] [address] Dr. Osmel Shelton Hematocrit (Bld) [Volume fraction] 36.5 % Normal 36.0-48.0 [facility] Comment on above: Performed By: #### C BC #### [facility] [address] [place] [address] Dr. Osmel Shelton Hemoglobin (Bld) [Mass/Vol] 11.8 g/dL Critically low 12.0-16.0 [facility] Comment on above: Performed By: #### C BC #### [facility] [address] [place] [address] Dr. Osmel Shelton IG # 0.02 10e3/ul Normal 0.00-0.03 [facility] Comment on above: Performed By: #### C BC #### [facility] [address] [place] [address] Dr. Osmel Shelton IG % 0.3 % Normal 0.0-0.5 [facility] Comment on above: Performed By: #### C BC #### [facility] [address] [place] [address] Dr. Osmel Shelton LYMPH # 1.3 103/ul Normal 1.2-3.8 [facility] Comment on above: Performed By: #### C BC #### [facility] [address] [place] [address] Dr. Osmel Shelton Lymphocytes/100 WBC (Bld) 21.4 % Normal 20.5-60.0 [facility] Comment on above: Performed By: #### C BC #### [facility] [address] [place] [address] Dr. Osmel Shelton MANUAL DIFF REQ NO Normal [facility] Comment on above: Performed By: #### C BC #### [facility] [address] [place] [address] Dr. Osmel Shelton MCH (RBC) [Entitic mass] 29.3 pg Normal 26.7-34.0 [facility] Comment on above: Performed By: #### C BC #### [facility] [address] [place] [address] Dr. Osmel Shelton MCHC (RBC) [Mass/Vol] 32.3 g/dL Normal 29.9-35.2 [facility] Comment on above: Performed By: #### C BC #### [facility] [address] [place] [address] Dr. Osmel Shelton MCV (RBC) [Entitic vol] 90.6 fL Normal 81.0-99.0 [facility] Comment on above: Performed By: #### C BC #### [facility] [address] [address] [address] Osmel Shelton MONO # 0.7 103/ul Normal 0.3-0.8 [facility] Comment on above: Performed By: #### C BC #### [facility] [address] [address] [address] Osmel Shelton Monocytes/100 WBC (Bld) 11.2 % Normal 1.7-12.0 [facility] Comment on above: Performed By: #### C BC #### [facility] [address] [address] [address] Osmel Shelton NEUT # 3.7 103/ul Normal 1.4-6.5 [facility] Comment on above: Performed By: #### C BC #### [facility] [address] [place] [address] Dr. Osmel Shelton Neutrophils/100 WBC (Bld) 62.5 % Normal 43.0-75.0 [facility] Comment on above: Performed By: #### C BC #### [facility] [address] [place] [address] Dr. Osmel Shelton Platelet mean volume (Bld) [Entitic vol] 9.4 fL Critically low 9.5-13.5 [facility] Comment on above: Performed By: #### C BC #### [facility] [address] [place] [address] Dr. Osmel Shelton PLT 364 103/ul Normal 150-450 [facility] Comment on above: Performed By: #### C BC #### [facility] [address] [address] [address] Osmel Shelton RBC 4.03 106/ul Critically low 4.20-5.40 [facility] Comment on above: Performed By: #### C BC #### [facility] [address] [address] [address] Osmel Shelton WBC 5.9 103/ul Normal 4.0-11.0 [facility] Comment on above: Performed By: #### C BC #### [facility] [address] [address] [address] Osmel Shelton LIPID PROFILEon 01-05-2022 CHOL-HDL RATIO NORM SEE BELOW Normal [facility] Comment on above: Result Comment: 3.3 - 4.4 LOW RISK 4.4 - 7.1 AVERAGE RISK 7.1 - 11.0 MODERATE RISK >11.0 HIGH RISK Performed By: #### C MP, LIPID #### [facility] [address] [address] [address] Osmel Shelton Cholesterol [Mass/Vol] 149 mg/dL Normal <=200 [facility] Comment on above: Performed By: #### C MP, LIPID #### [facility] [address] [address] [address] Osmel Shelton Cholesterol in HDL [Mass/Vol] 75 mg/dL Critically high 40-60 [facility] Comment on above: Performed By: #### C MP, LIPID #### [facility] [address] [address] [address] Osmel Shelton Cholesterol in LDL [Mass/Vol] 60.4 mg/dL Normal [facility] Comment on above: Performed By: #### C MP, LIPID #### [facility] [address] [address] [address] Osmel Shelton Cholesterol.total/Ch olesterol in HDL [Mass ratio] 2.0 {ratio} Normal [facility] Comment on above: Performed By: #### C MP, LIPID #### [facility] [address] [address] [address] Osmel Shelton HDL NORMAL > or = 60 mg/dl - LOW CARDIOVASCULAR RISK <40 mg/dl - HIGH CARDIOVASCULAR RISK Normal [facility] Comment on above: Performed By: #### C MP, LIPID #### [facility] [address] [address] [address] Osmel Shelton LDL CALC NORMAL SEE BELOW Normal [facility] Comment on above: Result Comment: <100 mg/dl OPTIMAL 100 - 129 mg/dl NEAR OR ABOVE OPTIMAL 130 - 159 mg/dl BORDERLINE HIGH 160 - 189 mg/dl HIGH >190 mg/dl VERY HIGH Performed By: #### C MP, LIPID #### [facility] [address] [address] [address] Osmel Shelton Triglyceride [Mass/Vol] 68 mg/dL Normal <=150 [facility] Comment on above: Performed By: #### C MP, LIPID #### [facility] [address] [address] [address] Osmel Shelton VLDL CALC 13.6 mg/dL Normal [facility] Comment on above: Performed By: #### C MP, LIPID #### [facility] [address] [address] [address] Osmel Shelton PROF 14(COMP METB)on 022 Albumin [Mass/Vol] 3.6 g/dL Normal 3.4-5.0 [facility] Comment on above: Performed By: #### C MP, LIPID #### [facility] [address] [place] [address] Dr. Osmel Shelton Albumin/Globulin [Mass ratio] 0.9 {ratio} Normal [facility] Comment on above: Performed By: #### C MP, LIPID #### [facility] [address] [place] [address] Dr. Osmel Shelton ALP [Catalytic activity/Vol] 152 U/L Critically high 46-116 [facility] Comment on above: Performed By: #### C MP, LIPID #### [facility] [address] [address] [address] Osmel Shelton ALT [Catalytic activity/Vol] 29 U/L Normal 14-59 [facility] Comment on above: Performed By: #### C MP, LIPID #### [facility] [address] [place] [address] Dr. Osmel Shelton Anion gap [Moles/Vol] 11.1 mmol/L Normal [facility] Comment on above: Performed By: #### C MP, LIPID #### [facility] [address] [address] [address] Osmel Shelton AST [Catalytic activity/Vol] 23 U/L Normal 15-37 [facility] Comment on above: Performed By: #### C MP, LIPID #### [facility] [address] [address] [address] Osmel Shelton Bilirubin [Mass/Vol] 0.3 mg/dL Normal 0.2-1.0 [facility] Comment on above: Performed By: #### C MP, LIPID #### [facility] [address] [address] [address] Osmel Shelton Calcium [Mass/Vol] 8.9 mg/dL Normal 8.5-10.1 [facility] Comment on above: Performed By: #### C MP, LIPID #### [facility] [address] [address] [address] Osmel Shelton Chloride [Moles/Vol] 96 mmol/L Critically low 98-107 [facility] Comment on above: Performed By: #### C MP, LIPID #### [facility] [address] [address] [address] Osmel Shelton CO2 [Moles/Vol] 28.2 mmol/L Normal 21.0-32.0 [facility] Comment on above: Performed By: #### C MP, LIPID #### [facility] [address] [address] [address] Osmel Shelton Creatinine [Mass/Vol] 1.46 mg/dL Critically high 0.55-1.02 [facility] Comment on above: Performed By: #### C MP, LIPID #### [facility] [address] [address] [address] Osmel Shelton EGFR-AF BELARUSIAN 43 mL/min/1.73m2 Critically low >=60 [facility] Comment on above: Performed By: #### C MP, LIPID #### [facility] [address] [address] [address] Osmel Shelton EGFR-NON AF BELARUSIAN 36 mL/min/1.73m2 Critically low >=60 [facility] Comment on above: Performed By: #### C MP, LIPID #### [facility] [address] [address] [address] Osmel Shelton Globulin (S) [Mass/Vol] 4.2 g/dL Normal [facility] Comment on above: Performed By: #### C MP, LIPID #### [facility] [address] [address] [address] Osmel Shelton Glucose [Mass/Vol] 95 mg/dL Normal 74-106 [facility] Comment on above: Performed By: #### C MP, LIPID #### [facility] [address] [place] [address] Dr. Osmel Shelton Potassium [Moles/Vol] 5.3 mmol/L Critically high 3.5-5.1 [facility] Comment on above: Performed By: #### C MP, LIPID #### [facility] [address] [place] [address] Dr. Osmel Shelton Protein [Mass/Vol] 7.8 g/dL Normal 6.4-8.2 [facility] Comment on above: Performed By: #### C MP, LIPID #### [facility] [address] [place] [address] Dr. Osmel Shelton Sodium [Moles/Vol] 130 mmol/L Critically low 136-145 [facility] Comment on above: Performed By: #### C MP, LIPID #### [facility] [address] [place] [address] Dr. Osmel Shelton Urea nitrogen [Mass/Vol] 22.0 mg/dL Critically high 7.0-18.0 [facility] Comment on above: Performed By: #### C MP, LIPID #### [facility] [address] [place] [address] Dr. Osmel Shelton Urea nitrogen/Creatinine [Mass ratio] 15.1 mg/mg Normal [facility] Comment on above: Performed By: #### C MP, LIPID #### [facility] [address] [place] [address] Dr. Osmel Shelton Vital Signs Date Time Vital Sign Value Performing Clinician Facility 04-18-2024 13:58-0500 Body height 160 cm Argelia Cheng SCREEDMAN Work Phone: [facility] 04-18-2024 13:58-0500 Body mass index (BMI) [Ratio] 35.8 kg/m2 Argelia Cheng [employer]CREEDMAN Work Phone: [facility] 04-18-2024 13:58-0500 Body temperature 96.21 [degF] Argelia Cheng SCREEDMAN Work Phone: [facility] 04-18-2024 13:58-0500 Body weight 91.67 kg Argelia Cheng SCREEDMAN Work Phone: [facility] 04-18-2024 13:58-0500 Diastolic blood pressure 82 mm[Hg] Argelia Cheng SCREEDMAN Work Phone: [facility] 04-18-2024 13:58-0500 Heart rate 96 /min Argelia Cheng SCREEDMAN Work Phone: [facility] 04-18-2024 13:58-0500 Respiratory rate 18 /min Argelia Cheng SCREEDMAN Work Phone: [facility] 04-18-2024 13:58-0500 SaO2% (BldA) [Mass fraction] 97 % Argelia Cheng [employer]CREEDMAN Work Phone: [facility] 04-18-2024 13:58-0500 Systolic blood pressure 138 mm[Hg] Argelia Cheng SCREEDMAN Work Phone: [facility] 01-17-2024 13:25-0400 Body mass index (BMI) [Ratio] 34.76 kg/m2 Argelia Cheng SCREEDMAN Work Phone: [facility] 01-17-2024 13:25-0400 Body temperature 97.81 [degF] Argelia Cheng SCREEDMAN Work Phone: [facility] 01-17-2024 13:25-0400 Body weight 89 kg Argelia Cheng SCREEDMAN Work Phone: [facility] 01-17-2024 13:25-0400 Diastolic blood pressure 72 mm[Hg] Argelia Cheng SCREEDMAN Work Phone: [facility] 01-17-2024 13:25-0400 Heart rate 84 /min Argelia Estebanpatrick SCREEDMAN Work Phone: [facility] 01-17-2024 13:25-0400 SaO2% (BldA) [Mass fraction] 98 % Argelia Estebanpatrick SCREEDMAN Work Phone: [facility] 01-17-2024 13:25-0400 Systolic blood pressure 130 mm[Hg] Argelia Estebanpatrick SCREEDMAN Work Phone: [facility] 12-20-2023 15:00-0400 Diastolic blood pressure 75 mm[Hg] MD Jackelyn Guillory Work Phone: [facility] 12-20-2023 15:00-0400 Systolic blood pressure 136 mm[Hg] MD Jackelyn Guillory Work Phone: [facility] 12-17-2023 14:48-0400 Heart rate 81 /min MD Jackelyn Guillory Work Phone: [facility] 11-16-2023 15:26-0400 Body height 154.94 cm [facility] 11-16-2023 15:26-0400 Body mass index (BMI) [Ratio] 38.4 kg/m2 [facility] 11-16-2023 15:26-0400 Body temperature 96.1 [degF] [facility] 11-16-2023 15:26-0400 Body weight 92.24 kg [facility] 11-16-2023 15:26-0400 Diastolic blood pressure 79 mm[Hg] [facility] 11-16-2023 15:26-0400 Respiratory rate 20 /min [facility] 11-16-2023 15:26-0400 Systolic blood pressure 171 mm[Hg] [facility] 03-09-2023 11:20-0500 Body height 154.94 cm Jackelyn Guillory Other [facility] Other 03-09-2023 11:20-0500 Body mass index (BMI) [Ratio] 38.62 kg/m2 Aziz Bakhous Other [employer] Other 03-09-2023 11:20-0500 Body temperature 96.7 [degF] Aziz Bakhous Other [employer] Other 03-09-2023 11:20-0500 Body weight 92.72 kg Aziz Bakhous Other [employer] Other 03-09-2023 11:20-0500 Diastolic blood pressure 60 mm[Hg] Aziz Bakhous Other [employer] Other 03-09-2023 11:20-0500 Respiratory rate 18 /min Aziz Bakhous Other [employer] Other 03-09-2023 11:20-0500 SaO2% (BldA) [Mass fraction] 97 % Aziz Bakhous Other [employer] Other 03-09-2023 11:20-0500 Systolic blood pressure 100 mm[Hg] Aziz Bakhous Other [employer] Other 04-07-2022 15:20-0500 Body height 154.94 cm Aziz Bakhous Other [employer] Other 04-07-2022 15:20-0500 Body mass index (BMI) [Ratio] 39.67 kg/m2 Aziz Bakhous Other [employer] Other 04-07-2022 15:20-0500 Body temperature 97.7 [degF] Aziz Bakhous Other [employer] Other 04-07-2022 15:20-0500 Body weight 95.26 kg Jackelyn Guillory Other [employer] Other 04-07-2022 15:20-0500 Diastolic blood pressure 90 mm[Hg] Jackelyn Guillory Other [employer] Other 04-07-2022 15:20-0500 Respiratory rate 18 /min Jackelyn Guillory Other [employer] Other 04-07-2022 15:20-0500 SaO2% (BldA) [Mass fraction] 97 % Jackelyn Guillory Other [employer] Other 04-07-2022 15:20-0500 Systolic blood pressure 140 mm[Hg] Jackelyn Guillory Other [employer] Other Encounters Encounter Date Encounter Type Care Provider Facility Start: 04-18-2024 End: 04-18-2024 Bamboo flowsheet Argelia Manzanok SCREEDMAN Work Phone: [facility] Start: 04-18-2024 End: 04-18-2024 Bamboo flowsheet Argelia Fergusontrick SCREEDMAN Work Phone: [facility] Start: 04-18-2024 End: 04-18-2024 Office outpatient visit 10 minutes Argelia Manzanok SCREEDMAN Work Phone: [facility] Comment on above: Irregular heartbeat (Primary Dx) Start: 04-03-2024 End: 04-03-2024 Refill Argelia Cheng SCREEDMAN Work Phone: [facility] Comment on [...] 01-17-2024 End: 01-17-2024 Bamboo flowsheet Argelia Manzanok SCREEDMAN Work Phone: [facility] Start: 01-17-2024 End: 01-17-2024 Bamboo flowsheet Argelia Fergusontrick SCREEDMAN Work Phone: [facility] Start: 01-17-2024 End: 01-18-2024 Refill Trace Kelly MD Work Phone: [facility] Comment on above: 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) Start: 01-17-2024 End: 01-17-2024 Assay of hemosiderin, quant Argelia Manzanok SCREEDMAN Work Phone: [facility] Work Phone: Start: 01-17-2024 End: 01-17-2024 Patient encounter procedure Argelia Cheng SCREEDMAN Work Phone: [facility] Comment on above: Routine general medi korin examination at health care facility (Primary Dx) Start: 01-04-2024 End: 01-04-2024 ambulatory [facility] Start: 12-20-2023 End: 12-20-2023 Discharged Recurring MD Jackelyn Guillory Work Phone: [facility] Work Phone: Start: 12-20-2023 End: 12-20-2023 ambulatory MD Jackelyn Guillory Work Phone: [facility] Work Phone: Start: 11-23-2023 End: 11-23-2023 Clinisync Result Encounter Generic External Data Provider [facility] External Department Unsolicited Start: 11-23-2023 End: 11-23-2023 Clinisync Result Encounter Generic External Data Provider [facility] External Department Unsolicited Start: 11-23-2023 Non-patient / Non-visit MD Rowan Guillory Work Phone: [facility] Work Phone: Start: 11-16-2023 End: 11-16-2023 ambulatory [facility] Work Phone: Start: 11-16-2023 End: 11-16-2023 Patient encounter procedure [facility] Physician [facility] Work Phone: Start: 11-08-2023 Non-patient / Non-visit [facility] Physician [facility] Work Phone: Start: 10-12-2023 End: 10-12-2023 ambulatory [facility] Start: 06-29-2023 End: 06-29-2023 ambulatory [facility] Start: 04-12-2023 End: 04-12-2023 ambulatory SHAIKH RIC Not Available Start: 03-09-2023 End: 03-09-2023 ambulatory Jackelyn Guillory Other [facility] Other Start: 03-09-2023 Office outpatient vi sit 25 minutes Jackelyn Guillory [facility] Start: 03-02-2023 End: 03-02-2023 ambulatory [facility] Start: 08-03-2022 End: 08-04-2022 ambulatory JACKELYN GUILLORY Facility: Start: 07-15-2022 Encounter for other preprocedural examination DR REINA WARD [facility] Start: 07-09-2022 End: 07-10-[address] REINA WARD Facility:[facility] Start: 07-09-2022 End: 07-10-2022 Encounter for other preprocedural examination DR REINA WARD Facility:[facility] Start: 07-09-2022 ambulatory LUISJUSTUS SCHUMACHER . Facility :[facility] Start: 05-20-2022 End: 05-21-2022 ambulatory LUISJUSTUS SCHUMACHER . Facility:[facility] Start: 04-27-2022 End: 07-08-2022 ambulatory LUISJUSTUS SCHUMACHER . Facility:[facility] Start: 04-15-2022 End: 04-16-2022 ambulatory JACKELYN GUILLORY Facility:[facility] Start: 04-07-2022 End: 04-07-2022 ambulatory Jackelyn Guillory Other [employer] Other Start: 04-07-2022 Office outpatient ne w 30 minutes Jackelyn Guillory [facility] Start: 01-23-2022 End: 01-24-2022 ambulatory [...] Start: 04-18-2024 End: 04-18-2024 Patient encounter procedure [facility] Comment on above: Arrived Start: 04-12-2024 Screening for malign ant neoplasm of colon Colorectal Cancer Screening [facility] Comment on above: Postponed from 05/25 (Patient Refused) Start: 03-13-2024 Influenza vaccination Influenza Vacc ine (#1) [facility] Comment on above: Postponed from 11/27 (Patient Refused) Start: 01-17-2024 End: 01-17-2024 Patient encounter procedure 01/17/2024 1:00 PM EDT Office Visit [facility] [address] [place] [address] Argelia Cheng, SCREEDMAN [address] [facility] [address] [address] [facility] Start: 01-15-2024 Medicare Annual Wellness (AWV) Medicare Annual Wellness (AWV) [facility] Start: 11-28-2023 Influenza vaccination Influenza Vacc ine (#1) [facility] Start: 1961 Pneumococcal Vaccine : 65+ Years (1 of 2 - PCV) Pneumococcal Vaccine: 65+ Years (1 of 2 - PCV) [facility] Start: 1955 Screening for malign ant neoplasm of colon [facility] Renal function 2000 panel - Serum or Plasma [facility] Payers Date Payer Category Payer Medicare [facility] MEDICARE ADVANTAGE ISIDRO MEDICARE ADVANTAGE [id number] 2020-Present [address] [place] [address] [id number] 2020 Medicare (Managed Care) [employer]LEXX [employer]LL ADVANTAGE [id number] 1959 Medicare [id number] 1959 Self-pay 1953 Unknown [id number] [id number]. 2.593 1953 Unknown [id number] 2.16.840.1.745118.3.579. 2.593 1953 Unknown [id number] 2.16.840.1.131947.3.579. 2.593 1953 Unknown [id number] 2.16.840.1.441068.3.579. 2.593 1953 Unknown [id number] 2.16.840.1.319956.3.579. 2.593 1953 Unknown [id number] 2.16.840.1.734062.3.579. 2.593 1953 Unknown [id number] 2.16.840.1.309180.3.579. 2.593 1953 Unknown [id number] 2.16.840.1.753058.3.579. 2.593 1953 Unknown [id number] 2.16.840.1.075952.3.579. 2.1259 1953 Unknown [id number] 2.16.840.1.302355.3.579. 2.1259 Unknown [id number] [id number]. 2.593 Unknown [id number] [id number]. 2.531 Unknown [id number] Social History Date Type Detail Facility Unknown if ever smoked [employer] Other Start: 04-08-2023 End: 04-12-2023 Sex Assigned At [facility] [employer] Other Start: 11-16-2023 End: 04-18-2024 Tobacco smoking status NHIS Ex-smoker (finding) [facility] Start: 1955 Sex Assigned At Female F [facility] Start: 03-29-1985 End: 03-29-2015 History of tobacco use Current smoker [facility] Start: 03-29-1985 End: 03-29-2015 History of tobacco use Cigarette Smoker [facility] Start: 04-08-2023 End: 04-12-2023 Cigarettes smoked current (pack per day) - Reported 1 [facility] Start: 04-12-2023 End: 04-18-2024 Tobacco use and exposure Smokeless tobacco non-user [facility] Start: 04-12-2023 End: 04-18-2024 Alcoholic beverage intake Lifetime non-drinker (finding) [facility] Do you feel stress - tense, restless, nervous, or anxious, or unable to sleep at night because your mind is troubled all the time - these days [OSQ] Only a little [facility] Start: 1955 Sex assigned at Not on file N S Healthcare Goals Date Patient Goal Desired Activity /State Clinical Notes 04-07-2022 to 04-18-2024 Argelia Cheng NP - 04/18/2024 2:57 PM Corrina Cheng NP - 04/18/2024 2:00 PM EST Note Date & Type Note Facility 04-18-2024 History of Presen t illness Narrative Associated Problem(s): Irregular heartbeat Intermittent shortness of breath, swelling in legs, heart skipping beats, fatigue. Irregular rhythm in office today. Advised pt to report to ER for further eval and treatment Images from the original note were not included. Subjective Patient ID: Susana Juares is a 68 y.o. female who presents for Follow-up. HPI Specialists: Cardiology- [facility] Nephrology- Dr. Madrdi Pulmonology- Dr. Schumacher Intermittent shortness of breath, swelling in legs, heart skipping beats, fatigue. Irregular rhythm in office today. Advised pt to report to ER for further eval and treatment Review of Systems Constitutional: Positive for fatigue. Negative for activity change, appetite change, chills, fever, night sweats and unexpected weight change. HENT: Negative for congestion, ear pain, rhinorrhea, sinus pressure, sinus pain, sore throat, trouble swallowing and voice change. Eyes: Negative for discharge and visual disturbance. Respiratory: Positive for shortness of breath. Negative for chest tightness and wheezing. Cardiovascular: Positive for palpitations. Negative for chest pain and leg swelling. Gastrointestinal: Negative for abdominal distention, abdominal pain, blood in stool, constipation, diarrhea, nausea and vomiting. Genitourinary: Negative for difficulty urinating, dysuria, flank pain, hematuria and pelvic pain. Musculoskeletal: Negative for arthralgias, joint swelling and neck pain. Skin: Negative for rash and wound. Neurological: Negative for dizziness, tremors, syncope, weakness, light-headedness, numbness and headaches. Psychiatric/Behavioral: Negative for sleep disturbance and suicidal ideas. The patient is not nervous/anxious. Hematological: Does not bruise/bleed easily. Endocrine: Negative for cold intolerance, heat intolerance, polydipsia, polyphagia and polyuria. Objective Physical Exam Vitals reviewed. Constitutional: Appearance: Normal appearance. HENT: Right Ear: Tympanic membrane normal. Left Ear: Tympanic membrane normal. Nose: Nose normal. Mouth/Throat: Mouth: Mucous membranes are moist. Pharynx: Oropharynx is clear. Eyes: Pupils: Pupils are equal, round, and reactive to light. Cardiovascular: Rate and Rhythm: Normal rate. Rhythm irregular. Pulses: Normal pulses. Heart sounds: Normal heart sounds. Pulmonary: Effort: Pulmonary effort is normal. Breath sounds: Normal breath sounds. Abdominal: General: Abdomen is flat. Bowel sounds are normal. Palpations: Abdomen is soft. Musculoskeletal: Right lower leg: Edema present. Left lower leg: Edema present. Skin: Capillary Refill: Capillary refill takes less than 2 seconds. Neurological: Mental Status: She is alert and oriented to person, place, and time. Assessment/Plan Problem List Items Addressed This Visit Irregular heartbeat - Primary Intermittent shortness of breath, swelling in legs, heart skipping beats, fatigue. Irregular rhythm in office today. Advised pt to report to ER for further eval and treatment documented in this encounter [facility] 04-18-2024 Evaluation note Diagnosis Stage 3a chronic kidney disease (HCC) (CMS/HCC)- Primary Other hyperlipidemia (CMS/HCC) Coronary artery disease involving [place] coronary artery of [place] heart without angina pectoris (CMS/HCC) Irregular heartbeat- Primary Unspecified cardiac dysrhythmia documented [facility] this encounter [id number] Evaluation note* Diagnosis Stage 3a chronic kidney disease (HCC) (CMS/HCC)- Primary Other hyperlipidemia (CMS/HCC) Coronary artery disease involving [place] coronary artery of [place] heart without angina pectoris (CMS/HCC) Stage 3a chronic kidney disease (HCC) (CMS/HCC)- Primary [id number] History of Present illness Narrative* Argelia Cheng NP - 01/17/2024 1:00 PM EDT Images from the original note were not included. Subjective : Chief Complaint: Susana Juares is an 68 y.o. female here for an annual wellness visit. Specialists: Cardiology- [facility], [place] Pulmonology- Dr. Schumacher [...] on January 17, 2024 documented in [facility] encounter[facility] [id number] NoteUT Electrophysiology Consult Note Reason for visit: [...] and effient. She was recently seen at [facility] as a transfer from [facility] for complaints of symptomatic wide-complex tachycardia [...] Coronary artery disease Coronary artery disease involving [place] coronary artery of [place] heart without angina pectoris 12/28/2016 Essential hypertension [...] Places Lived in the (more content not included)...[facility]07-16-2024 NoteUT Electrophysiology Consult Note Reason for visit: [...] and effient. She was recently seen at [facility] as a transfer from [facility] for complaints of symptomatic wide-complex tachycardia [...] kidney disease COPD (chronic obstructive pulmonary disease) ([facility]) Coronary artery disease Coronary artery disease involving [place] coronary artery of [place] heart without angina pectoris 12/28/2016 Essential hypertension [...] %) nebulizer solution INHA (more content not included)...[facility]04-02-2024 NoteUT Electrophysiology Consult Note Reason for visit: [...] and effient. She was recently seen at [facility] as a transfer from [facility] for complaints of symptomatic wide-complex tachycardia [...] kidney disease COPD (chronic obstructive pulmonary disease) ([facility]) Coronary artery disease Coronary artery disease involving [place] coronary artery of [place] heart without angina pectoris 12/28/2016 Essential hypertension [...] by mouth in t (more content not included)...[facility]12-12-2023 Evaluation note* Encounter Date Diagnosis Assessment Notes [...] deficiency (ICD-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 She was recently seen at [facility] as a transfer from [facility] for complaints of symptomatic wide-complex tachycardia [...] kidney disease COPD (chronic obstructive pulmonary disease) ([facility]) Coronary artery disease Coronary artery disease involving [place] coronary artery of [place] heart without angina pectoris 12/28/2016 Essential hypertension [...] bedtime. ferrous sulfate 324 (more content not included)...[facility]01-10-2023 Evaluation note* Encounter Date Diagnosis Assessment Notes [...] I will recheck sodium level next visit [employer] Other Evaluation note* Diagnosis Onset Date Resolution Status Anemia acute Hyperkalemia acute Hypertensive nephropathy acu te Hyperuricemia acute Hypomagnesemia acute Hyponatremia acute Stage 3b chronic kidney disease acute Vitamin D deficiency acute [facility] Work Phone: Evaluation note* Diagnosis Stage 3a chronic kidney disease (HCC) (CMS/HCC)- Primary Other hyperlipidemia (CMS/HCC) Coronary artery disease involving [place] coronary artery of [place] heart without angina pectoris (CMS/HCC) Routine general medical examination at health care facility- Primary Routine general medical examination at a health care facility documented in this encounter [facility] HealthcareEvaluation note* Diagnosis Stage 3a chronic kidney disease (HCC) (CMS/HCC)- Primary Other hyperlipidemia (CMS/HCC) Coronary artery disease involving [place] coronary artery of [place] heart without angina pectoris (CMS/HCC) Other hyperlipidemia (CMS/HCC) documented in this encounter [facility] HealthcareHistory general Narrative - Reported* Type Description Date Medical History CHRONIC OBSTRUCTIVE PULMONARY DI SEASE Medical History HYPERTENSION Medical History GERD Medical History HYPERLIPIDEMIA Medical History HEART ATTACK Surgical History HYSTERECTOMY Surgical History GALL BLADDER Surgical History TUBES TIED Surgical History 2 HEART STENTS Hospitalization History SEE ABOVE [employer] Other History general Narrative - Reported* Type [...] History SEE ABOVE Hospitalization History V-TACH 3 [employer] Other Summary Purpose Family History Relationship Condition [...] Reason Onset Date Comments Med Refill 04/03/2024 Reason Comments Follow-up INFORMATION SOURCE (unrecogn ized section and content) DATE CREATED AUTHOR 08/07/2022 [facility] DATE CREATED AUTHOR AUTHOR'S ORGANIZ ATION 12/22/2023 [facility] DATE CREATED AUTHOR AUTHOR'S ORGANIZ ATION 01/18/2024 [facility] DATE CREATED AUTHOR AUTHOR'S LEILANI HERNANDEZ 01/19/2024 [facility] dical Specialists EPIC Care Teams (unrecognized sec [...] 2023 End: December 20, 2023 Argelia Cheng SCREEDMAN-C Primary Care Provider Active Start: November 282023 End: December 20, 2023 Ballistic Technician Relationship Specialty Start Date End Date Shaikh Larios MD [address] [place] [address] PCP - [facility] 04/29/23 Trace Kelly MD [address] [place] [address] PCP - General Family Medicine 11/10/23 Argelia Cheng NP [address] [place] [address] Nurse Practitioner Family Medicine 11/10/23 Ballistic Technician Relationship Specialty Start Date End Date Shaikh Larios MD [address] [place] [address] PCP - [place] 04/29/23 Trace Kelly MD [address] [place] [address] PCP - General Family Medicine 01/17/24 Argelia Cheng NP [address] [place] [address] Nurse Practitioner Family Medicine 11/10/23 Ballistic Technician Relationship Specialty Start Date End Date Shaikh Larios MD [address] [place] [address] PCP - [place] 04/29/23 Trace Kelly MD [address] [place] [address] PCP - General Family Medicine 01/17/24 Argelia Cheng SCREEDMAN [address] [place] [address] Nurse Practitioner Family Medicine 11/10/23 Ballistic Technician Relationship Specialty Start Date End Date Shaikh Larios MD [address] [place] [address] PCP - [place] 04/29/23 Trace Kelly MD [address] [place] [address] PCP - General Family Medicine 01/17/24 Argelia Cheng NP [address] [place] [address] Nurse Practitioner Family Medicine 11/10/23 Ballistic Technician Relationship Specialty Start Date End Date Shaikh Larios MD [address] [place] [address] PCP - [facility] 04/29/23 Trace Kelly MD [address] [place] [address] PCP - General Family Medicine 11/10/23 Argelia Cheng NP [address] [place] [address] Nurse Practitioner Family Medicine 11/10/23 Ballistic Technician Relationship Specialty Start Date End Date Shaikh Larios MD [address] [place] [address] PCP Ana Lilia Coffey MA 04/29/23 Trace Kelly MD [address] [place] [address] PCP - General Family Medicine 01/17/24 Argelia Cheng NP [address] [place] [address] Nurse Practitioner Family Medicine 11/10/23 Ballistic Technician Relationship Specialty Start Date End Date Shaikh Larios MD [address] [place] [address] PCP - [facility] 04/29/23 Trace Kelly MD [address] [place] [address] PCP - General Family Medicine 01/17/24 Argelia Cheng NP [address] [place] [address] 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 [facility] [employer] [facility]. provides no warranty or guarantee of the accuracy or completeness of information in this document.
[2024-04-18] MEDS: CEFTRIAXONE 1,000 MG in 0.9 % SODIUM CHLORIDE 50 ML 100 MG IV (21:03)
[2024-04-18] MEDS: ATORVASTATIN CALCIUM 40 MG TABLET 80 MG PO (21:50)
[2024-04-18] MEDS: BUDESONIDE 0.5 MG/2 ML AMPULE NEB IH (23:16)
[2024-04-18] MEDS: ALBUTEROL SULFATE 2.5 MG/3 ML VIAL NEB IH (23:16)
[2024-04-19] VITALS (8 sets, daily range): BP systolic 110–125; BP diastolic 77–82; PULSE 73–85; TEMP 36.6–36.8; O2SAT 92–93
[2024-04-19] MEDS: OMEPRAZOLE 40 MG CAPSULE.DR PO (06:59)
[2024-04-19 08:32] LABS: Troponin I High Sensitivity 8.4 pg/mL (4.0-51.3)
[2024-04-19] MEDS: ISOSORBIDE MONONITRATE 30 MG TAB.ER.24H 60 MG PO (08:59)
[2024-04-19] MEDS: CHOLECALCIFEROL (VITAMIN D3) 25 MCG/1,000 UNITS TABLET PO (08:59)
[2024-04-19] MEDS: METOPROLOL SUCCINATE 50 MG TAB.ER.24H PO (09:00)
[2024-04-19] MEDS: FUROSEMIDE 40 MG TABLET PO (09:00)
[2024-04-19] MEDS: LOSARTAN POTASSIUM 25 MG TABLET 75 MG PO (09:00)
--- NOTE | 2024-04-19 10:56 | P.HP_ITS ---
HPI H&P: HPI History of Present Illness Chief complaint: multiple pvcs htn urgency sob Narrative: HPI and Hospital Course 68-year-old female with past medical history of COPD, heart failure with preserved ejection fraction and coronary artery disease was sent from her primary care physician's office for worsening shortness of breath and palpitations. Patient reports that for past 1 or 2 weeks, she has been experiencing intermittent palpitations. She also reports poorly controlled blood pressure and she attributes this to a change in her medications as she was recently switched from Lopressor 50 twice daily to Toprol 100 once daily. Patient reports that she is always short of breath but for past couple of weeks she has noticed that she is a little more out of breath. Workup in ER revealed that patient had uncontrolled hypertension with systolic blood pressure as high as 190. EKG did not reveal any acute findings. Given her significant cardiac history and uncontrolled hypertension, she was admitted for observation to rule out ACS and manage her blood pressure. Patient had negative cardiac enzymes. Was noted to have PVCs infrequently during the night that are likely the underlying reason for her experiencing palpitations. Her blood pressure improved overnight. Patient is at her baseline in the morning and feels well enough to go back home. She is medically stable for discharge. I will change her Toprol 100 once daily to 50 twice a day along with increasing the dose of Imdur to 60 mg once daily. Given her prior history of ventricular tachycardia-I will discharge her home with a Holter monitor for 72 hours. She was instructed to follow-up with PCP in 1 to 2 weeks and to follow-up with cardiology in 1 to 2 weeks. She was also instructed to monitor her blood pressure at home and return to ER if she starts to experience intractable/worsening chest pain/shortness of breath or heart palpitations Opioid HPI Opioid Management Most Recent Pain and Opioid Data: Last Pain Assessment 04/19/24 10:25 Last ORT Total Score 0 04/18/24 19:57 04/18/24 Last ORT Risk Category Low Risk 04/18/24 19:57 04/18/24 Review of Systems ROS Status of ROS 10 or more systems reviewed and unremark able except as noted in history and below [facility] Medical History (Updated 04/19/24 @ 11:02 by Shaikh Ric MD) CKD stage 3a, GFR 45-59 ml/min ?N18.31 - Chronic kidney disease, stage 3a (ICD-10) H/O ventricular tachycardia ?Z86.79 - Personal history of other diseases of the circulatory system (ICD- 10) Obesity ?E66.9 - Obesity, unspecified (ICD-10) HLD (hyperlipidemia) ?E78.5 - Hyperlipidemia, unspecified (ICD-10) COPD (chronic obstructive pulmonary disease) ?J44.9 - Chronic obstructive pulmonary disease, unspecified (ICD-10) (HFpEF) heart failure with preserved ejection fraction ?I50.30 - Unspecified diastolic (congestive) heart failure (ICD-10) CAD (coronary artery disease) ?I25.10 - Atherosclerotic heart disease of [place] coronary artery without angina pectoris (ICD-10) Family History (Updated 04/19/24 @ 07:03 by Yulia Sotomayor RN) Grandmother Family history of CHF (congestive heart failure) Family history of hypertension Family history of myocardial infarction Mother Family history of COPD (chronic obstructive pulmonary disease) Family history of hypertension Family history of stroke Grandmother Family history of COPD (chronic obstructive pulmonary disease) Family history of cancer Family history of hypertension Sister Family history of COPD (chronic obstructive pulmonary disease) Grandfather Family history of hypertension Social History (Updated 04/19/24 @ 11:01 by Shaikh Ric MD) Within the past year, how often did you have a drink containing alcohol: never Score interpretation: A score less than 3 is consistent with normal alcohol consumption. Smoking status: Never smoker Highest level of school completed/degree received: high school graduate Little interest or pleasure in doing things: not at all Feeling down, depressed, or hopeless: not at all Meds Home Medications and Allergies Home Medications ?Medication ?Instructions ?Recorded ?Confirmed ?Type albuterol sulfate 90 mcg/actuation 2 inh inhalation Q4H PRN shortness 10/02/22 04/18/24 History aerosol inhaler of breath or wheezing atorvastatin 80 mg tablet 80 mg PO DAILY 10/02/22 04/18/24 History cyclobenzaprine 10 mg tablet 10 mg PO Q8H PRN muscle spasm 10/02/22 04/18/24 History fluticasone 250 mcg-salmeterol 50 1 inh inhalation BID 10/02/22 04/18/24 History mcg/dose blistr powdr for inhalation ipratropium 0.5 mg-albuterol 3 mg 3 ml inhalation Q6H PRN shortness 10/02/22 04/18/24 History (2.5 mg base)/3 mL nebulization of breath soln isosorbide mononitrate 30 mg 30 mg PO DAILY 10/02/22 04/18/24 History tablet,extended release 24 hr olmesartan 40 mg tablet 40 mg PO DAILY 10/02/22 04/18/24 History cholecalciferol (vitamin D3) 25 1,000 unit PO DAILY 04/18/24 04/18/24 History mcg (1,000 unit) capsule (Vitamin D3) furosemide 20 mg tablet 20 mg PO .QOD 04/18/24 04/18/24 History magnesium 200 mg tablet 200 mg PO DAILY 04/18/24 04/18/24 History metoprolol succinate 50 mg 50 mg PO DAILY 04/18/24 04/18/24 History tablet,extended release 24 hr omeprazole 40 mg capsule,delayed 40 mg PO DAILY 04/18/24 04/18/24 History release prednisone 5 mg tablet 5 mg PO QDAY 04/18/24 04/18/24 History Allergies Allergy/AdvReac Type Severity Reaction Status Date / Time hydrochlorothiazide Allergy Severe Anaphylaxis Verified 04/18/24 15:15 vancomycin Allergy Severe Anaphylaxis Verified 10/02/22 14:02 clopidogrel (From Plavix) Allergy Intermediate Rash Verified 10/02/22 14:02 Penicillins Allergy Intermediate Hives Verified 10/02/22 14:02 Sulfa (Sulfonamide Allergy Unknown Unknown Verified 04/18/24 15:10 Antibiotics) Exam Constitutional Vital Signs, click to edit/add: Last Vital Signs Temp 97.8 F 04/19/24 08:00 Pulse 85 04/19/24 09:51 Resp 15 04/19/24 08:00 BP 110/77 04/19/24 08:00 Pulse Ox 93 L 04/19/24 08:00 O2 Del Method Room Air 04/19/24 08:00 Documenting provider has reviewed patient's vital signs: yes Common normals: no apparent distress and oriented x3 General appearance: cooperative HENMT Common normals: normocephalic and head/scalp atraumatic Head and scalp: normocephalic and atraumatic Eye Common normals: conjunctivae normal and no scleral icterus Conjunctiva: conjunctiva(e) normal Respiratory Common normals: normal respiratory effort and clear to auscultation bilaterally Effort & inspection: able to speak in complete sentences Auscultation: clear to auscultation bilaterally Cardio Common normals: regular rate, S1 normal heart sound and S2 normal heart sound Rate: regular rate Heart sounds: S1 normal and S2 normal GI Common normals: Normal to inspection, nondistended, normoactive bowel sounds present, soft to palpation, non-tender and no hepatosplenomegaly Palpation: soft and no hepatosplenomegaly Extremity Common normals: no clubbing, cyanosis or edema Neuro Common normals: oriented x3, moves all extremities and no focal motor deficits Psych Common normals: mental status grossly normal, denies hallucinations, denies homicidal ideation and denies suicidal ideation Results Labs Labs: Short CBC 04/18/24 Range/Units 15:22 WBC 7.2 (4.0-11.0) 10^3/uL Hgb 12.3 (12.0-16.0) g/dL Hct 38.5 (36.0-48.0) % Plt Count 287 (150-450) 10^3/uL BMP 04/18/24 15:22 Sodium 136 Potassium 4.5 Chloride 99 Carbon Dioxide 27.7 BUN 21.0 H Creatinine 1.43 H Glucose 86 Calcium 8.9 Liver Function 04/18/24 Range/Units 15:22 Total Bilirubin 0.2 (0.2-1.0) mg/dL AST 17 (15-37) U/L ALT 19 (14-59) U/L Alkaline Phosphatase 87 (46-116) U/L Albumin 3.5 (3.4-5.0) g/dL Assessment and Plan Assessment and Plan (1) Hypertensive urgency: (2) Palpitations: (3) SOB (shortness of breath): (4) CAD (coronary artery disease): Qualifiers: Coronary Disease-Associated Artery/Lesion type: [place] artery [place] vs. transplanted heart: [place] heart Associated angina: without angina Qualified Code(s): I25.10 - Atherosclerotic heart disease of [place] coronary artery without angina pectoris (5) COPD (chronic obstructive pulmonary disease): Qualifiers: COPD type: emphysema Emphysema type: unspecified Qualified Code(s): J43.9 - Emphysema, unspecified (6) (HFpEF) heart failure with preserved ejection fraction: Qualifiers: Heart failure chronicity: chronic Qualified Code(s): I50.32 - Chronic diastolic (congestive) heart failure (7) CKD stage 3a, GFR 45-59 ml/min: (8) HLD (hyperlipidemia): Qualifiers: Hyperlipidemia type: unspecified Qualified Code(s): E78.5 - Hyperlipidemia, unspecified Plan Patient admitted for hypertensive urgency, palpitations and shortness of breath. Her blood pressure improved over the course of admission and is well-controlled and at goal. No significant finding on telemetry monitoring or EKG except for PVCs. We Ruled out acute coronary syndrome by serial troponin that were negative. Upon admission in ER, she had abnormal chest x-ray concerning for questionable pneumonia. She had a CT chest for better visualization of lung parenchyma that was negative for consolidation/CHF. Upon evaluation she does not seem to have COPD exacerbation. Given prior history of ventricular tachycardia we will send her home with Holter monitor for 72 hours. Her shortness of breath was likely secondary to poorly controlled hypertension. Will change her Toprol from 100 once daily to 50 twice daily and increase Imdur to 60 mg once daily. Patient is medically stable for discharge and will need follow-up with PCP and cardiology in 1 to 2 weeks
--- NOTE | 2024-04-19 11:03 | CM.NOTE ---
Rounds made with Dr. Larios, pt will discharge to home today after event monitor placed. Pt will f/u with cardiology and PCP.
--- NOTE | 2024-04-19 11:56 | SWNOTE1 ---
SW spoke to case management and no needs at discharge.
--- NOTE | 2024-04-19 11:59 | CM.NOTE ---
Medicare Outpatient Observation Notice discussed with pt, pt verbalizes understanding and signs paper. Original given to pt and copy placed in pt's chart.
--- NOTE | 2024-04-21 15:49 | CM.DCFOLLOWU ---
Person spoke with:patient How are you feeling?well How is your pain?none Did you understand your discharge instructions?yes Do you have any questions about your discharge instructions?no Were you given any prescriptions at discharge?yes Were you able to get your prescriptions filled?yes Do you understand how to take your medications as ordered?yes Do you have any questions about your follow up appointment and do you plan to keep your follow up appointment? no questions. Reviewed follow ups Is there anything else that you would like to discuss?no Questions/Comments/Concerns/Other: none
== END 2024-04-19 11:40 | disposition home or self-care (01) ==
LOC: ER 16:55 → MS 19:39
PROVIDERS: Admitting Provider Internal Medicine; Emergency Provider Emergency Medicine; Visit Provider Internal Medicine
DX: I16.0 Hypertensive urgency (principal); I49.3 Ventricular premature depolarization; I12.9 Hypertensive chronic kidney disease with stage 1 through stage 4 chronic kidney disease, or unspecified chronic kidney disease; N18.31 Chronic kidney disease, stage 3a; R00.2 Palpitations; J43.9 Emphysema, unspecified; I50.32 Chronic diastolic (congestive) heart failure; R06.02 Shortness of breath; I25.10 Atherosclerotic heart disease of native coronary artery without angina pectoris; Z95.5 Presence of coronary angioplasty implant and graft; E78.5 Hyperlipidemia, unspecified
CPT/HCPCS: 36415; 71045; 71250; 80053; 83735; 83880; 84484; 85025; 85610; 93005; 93242; 94640; 94761; 96365; 99285; G0378; J0696

== ENCOUNTER 2024-06-26 11:23 | Outpatient (OUT) | payer MEDICARE, SELFPAY ==
--- OUTSIDE RECORDS SUMMARY | 2024-06-26 11:40 | XMS_ITS | CCD ---
Author Organization [facility] Care Team Providers Care Electronic Induction Hardener Name Role Phone Jackelyn Guillory Unavailable JACKELYN GUILLORY Attending Unavailable PASTORA, MARIOIZ Admitting Unavailable HOUSE, DR CASTILLO Primary Care Unavailable WEST, DR TIMOTHY Chandler Consulting Unavailable SAMSA ., LUIS Consulting Unavailable ASHS, JACKELYN Consulting Unavailable SAMSA ., LUIS Consulting [...] Care Unavailable SAMSA ., LUIS Attending Unavailable HOLLIS, DR TIMOTHY Chandler Consulting Unavailable HOUSE, DR CASTILLO Primary Care Unavailable SAMSA ., LUIS Admitting Unavailable SAMSA ., LUIS Consulting Unavailable HOUSE, DR CASTILLO Admitting Unavailable HOUSE, DR CASTILLO Primary Care Unavailable HOUSE, DR CASTILLO Consulting Unavailable HOUSE, DR CASTILLO Attending Unavailable BAKHOUS, MARIOIZ Consulting Unavailable ASHS, MARIOIZ Attending Unavailable BAKHUMBERTOS, AZIZ Admitting Unavailable HOUSE, DR CASTILLO [facility] Unavailable [facility] DR HUANG Attending Unavailable HOUSE, DR CASTILLO [facility] Admitting Unavailable SAMSA ., LUIS Consulting Unavailable SAMSA ., LUIS Attending Unavailable SAMSA ., LUIS Admitting Unavailable HOUSE, DR CASTILLO Primary Care Unavailable HOUSE, DR CASTILLO Consulting Unavailable SAMSA ., LUIS Consulting Unavailable MD Jackelyn Guillory Attending Provider MD Jackelyn Guillory Referring Provider KARO Cheng Primary Care Provid er Jackelyn Guillory Attending Unavailable Jackelyn Guillory Referring Unavailable Argelia Cheng N Primary Care Unavaila ble Jackelyn Guillory Admitting Unavailable Ric COTE, [facility] Unavailable Trace Kelly MD Primary Care Provider Skylar TAPE DECK INSTALLER, Argelia Unavailable [phone] Trace Kelly MD Primary Care Provider Cheng TAPE DECK INSTALLER, Argelia Unavailable Cheng TAPE DECK INSTALLER, Argelia Unavailable ARGELIA CHENG Attending Unavailcorinna e ARGELIA CHENG Attending Unavailabl e NOLVIA JIMENEZ Attending Unavailable SKYLAR, ARGELIA Attending UnavailXANDER Antonio Attending Unavailable XANDER MUSTAFA Attending Unavailable REINA WARD Attending Unavailable XANDER MUSTAFA Attending Unavailable XANDER MUSTAFA Attending Unavailable Allergies Allergy Classification Reported Allergen(s) Allergy Type Date of Onset Reaction(s) Facility (20 sources) clopidogrel; Translations: [CLOPIDOGREL] Drug Allergy [facility] (5 sources) hydroCHLOROthiazide; Translations: [HYDROCHLOROTHIAZIDE] Drug Allergy [facility] (3 sources) Penicillin; Translations: [penicillin] Drug Allergy [facility] Repository (20 sources) Vancomycin; Translations: [VANCOMYCIN] Drug Allergy [facility] (2 sources) Substance with sulfonamide structure and antibacterial mechanism of action (substance) Drug allergy Unknown [facility] Other (1 source) clopidogrel Drug Allergy [facility] Repository (1 source) hydroCHLOROthiazide Drug Allergy [facility] Rep[facility] (1 source) Vancomycin Drug Allergy [facility] Repository (20 sources) Penicillins; Translations: [Penicillins] Allergy to substance [facility] (4 sources) Sulfonamides (Antibiotic); Translations: [Sulfa (Sulfonamide Antibiotics)] Allergy to substance Unknown Reaction [facility] (1 source) clopidogrel Drug Allergy [facility] Repository (1 source) hydroCHLOROthiazide Drug Allergy [facility] Repository (1 source) Vancomycin Drug Allergy [facility] Repository (17 sources) hydroCHLOROthiazide Drug Allergy [facility] (18 sources) Sodium Chloride; Translations: [SODIUM CHLORIDE] Drug Allergy [facility] (17 sources) Sulfacetamide Drug Allergy [facility] Medications Current Medications Medication Drug Class(es) Dates Sig (Normalized) Sig (Original) [id number] 200 actuat albuterol 0.09 mg/actuat metered dose inhaler (20 sources) beta2-Adrenergic Agonist Start: 11-16-2023 take 1 puff(s) by inhalation every four hours Albuterol Sulfate (Ventolin Hfa) 90 mcg/actuation HFA aerosol inhaler Active 2 PUFF INHALATION Every 4 hours November 16, 2023 12:00am Start: 08-09-2023 End: 06-08-2024 albuterol (2.5 MG/3ML) 0.083 % nebulizer solution Take 2.5 mg by nebulization every 6 (six) hours if needed for shortness of breath or wheezing 08/09/2023 06/08/2024 Discontinued take 2 puff(s) by in halation every [...] / ipratropium bromide 0.167 mg/ml inhalation solution (20 sources) Anticholinergic, beta2-Adrenergic Agonist Start: 11-16-2023 take 1 mL by inhalation every six hours Ipratropium-Albuterol Active 3 ML INHALATION Every 6 hours November 16, 2023 12:00am ipratropium-albu terol (Duo-Neb) 0.5-2.5 mg/3 mL nebulizer solution Take 3 mL by nebulization every 6 (six) hours Active aspirin 81 mg delayed release oral tablet (20 sources) Platelet Aggregation Inhibitor, Nonsteroidal Anti-inflammatory Drug Start: 11-16-2023 take 81 mg by mouth once daily Aspirin Active 81 MG PO Daily November 16, 2023 12:00am atorvastatin 80 mg oral tablet (20 sources) HMG-CoA Reductase Inhibitor Start: 10-14-2023 End: 09-30-2024 take 1 tablet by mouth once daily atorvastatin (Lipitor) 80 MG tablet Indications: Other hyperlipidemia (CMS/HCC) Take 1 tablet (80 mg) by mouth Daily 90 tablet 1 04/03/2024 09/30/2024 Active take 1 tablet by rebecca every twenty-four hours Atorvastatin Calcium 80 MG 1 tablet Oral ly Once a day Active cholecalciferol 0.025 mg oral tablet (19 sources) Vitamin D Start: 01-18-2024 take 1 [...] Discontinued (Reorder) take 1 capsule by mo ut once daily Cholecalciferol 25 MCG (1000 UT) 1 capsule Orally Once a day for 90 days Active cyclobenzaprine hydrochloride 10 mg oral tablet (19 sources) Muscle Relaxant Start: 06-08-2024 End: 06-23-2024 take 0.5 tablet by mouth three times daily as needed for muscle spasms cyclobenzaprine (Flexeril) 10 MG tablet Indications: Chronic low back pain, unspecified back pain laterality, unspecified whether sciatica present Take 0.5 tablets (5 mg) by mouth 3 (three) times a day as needed for muscle spasms for up to 15 days 45 tablet 1 06/08/2024 06/23/2024 Active End: 06-08-2024 take 5 mg by mouth three times daily as needed for muscle spasms cyclobenzaprine (Flexeril) 10 MG tablet Take 5 mg by mouth 3 (three) times a day as needed for muscle spasms 06/08/2024 Discontinued (Reorder) 2 ml dupilumab 150 mg/ml auto-injector (3 sources) Interleukin-4 Receptor alpha Antagonist Dupilumab (Dupixent) 300 MG/2ML solution auto-injector as directed Subcutaneous Active Fluticasone Propion-Salmeterol (20 sources) Corticosteroid, beta2-Adrenergic Agonist Start: 11-16-2023 Fluticasone Propion-Salmeterol (Advair Diskus) 250-50 mcg/dose blister with device Active 1 INH INHALATION Twice daily November 16, 2023 12:00am End: 06-08-2024 take 1 dose by inhalation once daily Fluticasone-Salmeterol (Advair Diskus) 250-50 MCG/ACT aerosol powder Inhale 1 Dose 1 (one) time each day 06/08/2024 Discontinued (Therapy completed) take 1 puff(s) by in halation twice daily Advair Diskus 250-50 MCG/ACT 1 puff Inhalation Twice a day Active 30 actuat fluticasone furoate 0.1 mg/actuat / umeclidinium 0.0625 mg/actuat / vilanterol 0.025 mg/actuat dry powder inhaler (3 sources) Anticholinergic, Corticosteroid, beta2-Adrenergic Agonist Start: 05-23-2024 take 1 puff(s) by inhalation once daily Trelegy Ellipta 100-62.5-25 MCG/ACT aerosol powder Inhale 1 puff 1 (one) time each day at the same time 05/23/2024 Active furosemide 20 mg oral tablet (20 sources) Loop Diuretic Start: 11-16-2023 take 20 mg by mouth once daily Furosemide Active 20 MG PO Daily November 16, 2023 12:00am take 1 tablet by rebecca th every other day furosemide (Lasix) 20 MG tablet Indications: Edema Take 20 mg by mouth every other day Active End: 06-08-2024 furosemide (Lasix) 40 MG tab let Take 20 mg by mouth in the morning. 06/08/2024 Discontinued (Therapy completed) Furosemide 20 MG as directed Orally Once a day Active Furosemide 40 MG 1 1/2 tablet Orally Once a day Active 24 hr isosorbide mononitrate 60 mg extended release oral tablet (20 sources) Nitrate Vasodilator Start: 04-20-2024 take 1 tablet by mouth once daily, then take 1 tablet by mouth every twenty-four hours isosorbide mononitrate ER (Imdur) 60 MG 24 hr tablet Take 60 mg by mouth Daily 04/20/2024 Active Start: 11-16-2023 End: 04-26-2024 take 30 mg by mouth once daily Isosorbide Mononitrate Active 30 MG PO Daily November 16, 2023 12:00am Magnesium (9 sources) take 200 mg by mouth in [...] Active metoprolol tartrate 50 mg oral tablet (20 sources) beta-Adrenergic Fernando Start: 05-31-2024 take 1 tablet by mouth in the morning metoprolol tartrate (Lopressor) 50 MG tablet Take 50 mg by mouth in the morning and 50 mg before bedtime. 05/31/2024 Active Start: 01-17-2024 End: 04-18-2024 take 0.5 tablet by mouth once daily metoprolol succinate XL (Toprol-XL) 100 MG 24 hr tablet Take 0.5 tablets (50 mg) by mouth Daily Do not crush or chew. 01/17/2024 04/18/2024 Discontinued Start: 11-16-2023 take 100 mg by mouth once natalie y Metoprolol Succinate Active 100 MG PO Daily November 16, 2023 12:00am End: 06-08-2024 take 1 tablet by mouth every twenty-four hours in the morning metoprolol succinate XL (Toprol-XL) 50 MG 24 hr tablet Take 50 mg by mouth in the morning and 50 mg before bedtime. Do not crush or chew.. 06/08/2024 Discontinued (Therapy completed) End: 01-17-2024 take 1 tablet by mouth [...] Active olmesartan medoxomil 40 mg oral tablet (20 sources) Angiotensin 2 Receptor Fernando Start: 11-16-2023 take 40 mg by mouth once daily Olmesartan Active 40 MG PO Daily November 16, 2023 12:00am omeprazole 20 mg delayed release oral capsule (20 sources) Proton Pump Inhibitor Start: 11-16-2023 take [...] PO Daily November 16, 2023 12:00am predniSONE 10 mg oral tablet (13 sources) Start: 06-07-2024 predniSONE (Deltasone) 10 MG tablet 06/07/2024 Active Start: 03-23-2024 End: 06-08-2024 take 1 tablet by mouth once daily at mealtime predniSONE (Deltasone) 5 MG tablet Take 5 mg by mouth Daily Take with food. 03/23/2024 06/08/2024 Discontinued Start: 11-16-2023 take 5 mg by mouth once Predni sone Active 5 MG PO Once November 16, 2023 12:00am 12 hr ranolazine 500 mg extended release oral tablet (3 sources) Anti-anginal Start: 05-23-2024 End: 05-23-2025 take 1 tablet by mouth every twelve hours in the morning ranolazine (Ranexa) 500 MG 12 hr tablet Take 500 mg by mouth in the morning and 500 mg in the evening. 05/23/2024 05/23/2025 Active Completed/Discontinued Medications Medication Drug Class(es) Dates Sig [...] 1 tablet Orally ONCE A DAY Active ipratropium bromide 0.2 mg/ml inhalation solution (5 sources) Anticholinergic Start: 08-09-2023 End: 04-26-2024 ipratropium (Atrovent) 0.02 % nebulizer solution Take 0.5 mg by nebulization in the morning and 0.5 mg at noon and 0.5 mg in the evening and 0.5 mg before bedtime. 08/09/2023 04/26/2024 Discontinued magnesium oxide 600 mg / pyridoxine hydrochloride 25 mg oral tablet (17 sources) End: 06-08-2024 take 1 tablet by mouth in the morning magnesium oxide-pyridoxine (Beelith) 362-20 MG tablet Take 1 tablet by mouth in the morning. 06/08/2024 Discontinued (Therapy completed) Problems Active Problems Problem Classification Problem Date Documented Date Episodic/Chronic Cardiac dysrhythmias (14 sources) Irregular heart beat; Translations: [Cardiac arrhythmia, unspecified] Onset: 10-26-2022 04-18-2024 Chronic Chronic kidney disease (20 sources) Chronic kidney disease stage 3A ; Translations: [Chronic kidney disease, stage 3a] Onset: 01-08-2022 Resolved: 06-08-2024 11-13-2023 Chronic Chronic kidney disease (4 sources) Chronic kidney disease; Translations: [CHRONIC KIDNEY DISEASE STAGE 3A] Onset: 08-06-2022 Chronic obstructive pulmonary disease and bronchiectasis (20 sources) Chronic obstructive pulmonary disease, unspecified; Translations: [Chronic obstructive lung disease] Onset: 12-28-2016 Chronic Coronary atherosclerosis and other heart disease (20 sources) Atherosclerotic heart disease of [place] coronary artery without angina pectoris; Translations: [Coronary arteriosclerosis] Onset: 12-28-2016 Chronic Deficiency and other anemia (3 sources) Anemia, unspecified; Translations: [Anemia, unspecified] Episodic Deficiency and other anemia (2 sources) Anemia; Translations: [Anemia, unspecified] 11-13-2023 Episodic Disorders of lipid metabolism (20 sources) Hyperlipidemia; Translations: [Other hyperlipidemia] Onset: 10-27-2022 Resolved: 06-08-2024 04-12-2023 Chronic Essential hypertension (20 sources) Essential hypertension; Translations: [Essential (primary) hypertension] Onset: 12-14-2016 Resolved: 06-08-2024 04-12-2023 Chronic Hypertension with complications and secondary hypertension (15 sources) Hypertensive renal disease; Translations: [Hypertensive chronic kidney disease with stage 1 through stage 4 chronic kidney disease, or unspecified chronic kidney disease] Onset: 01-08-2022 Chronic Nonspecific chest pain (2 sources) Chest pain, unspecified; Translations: [Chest pain, unspecified] Onset: 10-30-2022 Episodic Nutritional deficiencies (6 sources) Vitamin D deficiency; Translations: [Vitamin D deficiency, unspecified] Chronic Other nutritional; endocrine; and metabolic disorders (20 sources) Hypomagnesemia; Translations: [Hypomagnesemia] Onset: 10-27-2022 11-13-2023 Chronic Other nutritional; endocrine; and metabolic disorders (3 sources) Hypomagnesemia; 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 Other nutritional; endocrine; and metabolic disorders (5 sources) Obesity caused by energy imbalance; Translations: [Morbid (severe) obesity due to excess calories] Onset: 06-08-2024 06-08-2024 Chronic Other nutritional; endocrine; and metabolic disorders (5 sources) Body mass index 30+ - obesity; Translations: [Body mass index (BMI) 35.0-35.9, adult] Onset: 06-08-2024 06-08-2024 Chronic Other nutritional; endocrine; and metabolic disorders (3 sources) Hyperuricemia without signs of inflammatory arthritis and tophaceous disease; Translations: [Other abnormal blood chemistry] Episodic Other nutritional; endocrine; and metabolic disorders (2 sources) Hyperuricemia; Translations: [Hyperuricemia without signs of inflammatory arthritis and tophaceous disease] 11-13-2023 Episodic Spondylosis; intervertebral disc disorders; other back problems (19 sources) Low back pain; Translations: [Lower back pain] Onset: 12-28-2016 04-12-2023 Episodic Unclassified (1 source) Other ventricular tachycardia; Translations: [Other ventricular tachycardia] Onset: 06-15-2024 Past or Other Problems Problem Classification Problem Date Documented Da te Episodic/Chronic Fluid and electrolyte disorders (20 sources) Hyperkalemia; Translations: [Hypo-osmolality and hyponatremia] Onset: 08-06-2022 Episodic Screening and history of mental health and substance abuse codes (20 sources) Personal history of nicotine dependence; Translations: [Ex-smoker] Onset: 01-22-2020 Episodic Unclassified (1 source) Other ventricular tachycardia; Translations: [Other ventricular tachycardia] Onset: 06-15-2024 Results Test Name Value Interpretation Reference Range Facility Office Visiton 06-15-2024 Follow-up visit [id number] Chiara Eduardo 1955 F Date Provider Department Center 06/15/2024 Kee-REINA [facility] Family History Problem Relation Age of Onset Stroke Mother Kidney disease Father Coronary artery disease Paternal Grandfather Family Status - Relation Status Age at Mother Father Paternal Grandfather Level of Service:81686 SC OFFICE/OUTPATIENT ESTABLISHED HIGH MDM 40 MIN Normal [facility] Orders Onlyon 06-15-2024 Orders Only [id number] Chiara Eduardo 1955 Provider Department Center 06/15/2024 ALLAN BHAKTA JUSTIN [facility] Family History Problem Relation Age of Onset Stroke Mother Kidney disease Father Coronary artery disease Paternal Grandfather Family Status - Relation Status Age at Mother Father Paternal Grandfather Normal [facility] Office Visiton 05-23-2024 Follow-up visit [id number] Chiara Eduardo 1955 F Date Provider Department Center 05/23/2024 Lonny-XANDER MUSTAFA JUSTIN [facility] Family History Problem Relation Age of Onset Stroke Mother Kidney disease Father Coronary artery disease Paternal Grandfather Family Status - Relation Status Age at Mother Father Paternal Grandfather Level of Service:08307 SC OFFICE/OUTPATIENT ESTABLISHED LOW MDM 20 MIN [facility] TBH URINE T PROTEIN CREAT RA Kamron 02-02-2024 CREATININE URINE RANDOM 78.2 mg/dL 20.00 - 300.00 mg/dL [facility] Protein (U) [Mass/Vol] 8.7 mg/dL NINF - 11.9 mg/dL [facility] PROTEIN CREATININE RATIO URINE 0.11 [facility] HEMOGLOBIN[facility] 01-24-2024 Hemoglobin (Bld) [Mass/Vol] 11 g/dL Low 12.0 - 16.0 g/dL [facility] Interpretation and review of laboratory results Abnormal [facility] 36on 01-04-2024 36 Patient seen today by Dr. Mustafa. He wants to know if she can stop Effient due to easy bruising/bleeding. Please advise. Thanks. [facility] Office Visiton 01-04-2024 Follow-up visit [id number] Chiara Eduardo 1955 F Date Provider Department Center 01/04/2024 [facility]-XANDER MUSTAFA JUSTIN Al[facility]ran [facility] Family History Problem Relation Age of Onset Stroke Mother Kidney disease Father Coronary artery disease Paternal Grandfather Family Status - Relation Status Age at Mother Father Paternal Grandfather Level of Service:56363 SC OFFICE/OUTPATIENT ESTABLISHED LOW MDM 20 MIN [facility] Iron binding capacity [Mass/ volume] in Serum or Plasmaon 11-23-2023 Iron binding capacity [Mass/Vol] 365.0 ug/dL 250.0-450.0 [facility] Iron saturation [Mass Fracti on] in Serum or Plasmaon 11-23-2023 Iron saturation [Mass fraction] 5.5 % [facility] Laboratory - Chemistry and C hemistry - challengeon 11-23-2023 Ferritin [Mass/Vol] 25.0 ng/mL 8.0-252.0 [facility] Iron [Mass/Vol] 20.0 ug/dL Low 50.0-170.0 [facility] METRO IRON AND TIBCon 2023 Interpretation and review of laboratory results Abnormal [facility] TBH IRON 20.0 ug/dL Low 50.0 - 170.0 ug/dL [facility] TB PERCENT IRON SATURATION 5.5 % [facility] TB TOTAL IRON BINDING CAPACITY 365.0 ug/dL 250.0 - 450.0 ug/dL [facility] Erythrocyte distribution wid th Auto (RBC) [Ratio]on 11-08-2023 Erythrocyte distribution width (RBC) [Ratio] 16.4 % High 11.0-15.0 [facility] Estimated glomerular filtrat ion rate (GFR) non- Americanon 11-08-2023 GFR/1.73 sq M.predicted among non-blacks MDRD (S/P/Bld) [Vol rate/Area] 37 mL/min/{1.73_m2} Low >=60 [facility] Globulin Calc (S) [Mass/Vol] on 11-08-2023 Globulin (S) [Mass/Vol] 3.9 g/dL [facility] Hematocrit Auto (Bld) [Volum e fraction]on 11-08-2023 Hematocrit (Bld) [Volume fraction] 28.1 % Low 36.0-48.0 [facility] Hemoglobin [Mass/volume] in Bloodon 11-08-2023 Hemoglobin (Bld) [Mass/Vol] 8.7 g/dL Low 12.0-16.0 [facility] Laboratory - Chemistry and C hemistry - challengeon 11-08-2023 Albumin [Mass/Vol] 3.4 g/dL 3.4-5.0 [facility] ALP [Catalytic activity/Vol] 81 U/L 46-116 [facility] ALT [Catalytic activity/Vol] 26 U/L 14-59 [facility] AST [Catalytic activity/Vol] 23 U/L 15-37 [facility] Bilirubin [Mass/Vol] 0.3 mg/dL 0.2-1.0 [facility] Calcium [Mass/Vol] 8.7 mg/dL 8.5-10.1 [facility] Chloride [Moles/Vol] 93 mmol/L Low 98-107 [facility] CO2 [Moles/Vol] 27.4 mmol/L 21.0-32.[address] [facility] Creatinine [Mass/Vol] 1.40 mg/dL High 0.55-1.02 [facility] GFR/1.73 sq M.predicted MDRD (S/P/Bld) [Vol rate/Area] 45 mL/min/{1.73_m2} Low >=60 [facility] Glucose [Mass/Vol] 96 mg/dL 74-106 [facility] Magnesium [Mass/Vol] 2.2 mg/dL 1.8-2.4 [facility] Potassium [Moles/Vol] 4.4 mmol/L 3.5-5.1 [facility] Protein [Mass/Vol] 7.3 g/dL 6.4-8.2 [facility] Sodium [Moles/Vol] 128 mmol/L Low 136-145 [facility] Urate [Mass/Vol] 5.6 mg/dL 2.6-6.[address] [facility] Urea nitrogen [Mass/Vol] 20.0 mg/dL High 7.0-18.0 [facility] Urea nitrogen/Creatinine [Mass ratio] 14.3 mg/mg [facility] Bilirubin Ql (U) Negative NEGATIVE [facility] Glucose (U) [Mass/Vol] Negative NEGATIVE [facility] Ketones Ql (U) Negative NEGATIVE [facility] pH (U) 7.5 [pH] 5.0-9.0 [facility] Specific gravity (U) [Rel density] 1.010 1.005-1.025 [facility] Urobilinogen Qn (U) 0.2 {Chuy'U}/dL 0.2-1.0 [facility] Laboratory - Specimen inform ationon 11-08-2023 Appearance (U) CLEAR CLEAR [facility] Color (U) YELLOW YELLOW [facility] Laboratory - Urinalysison Leukocyte esterase Test strip Ql (U) Negative NEGATIVE [facility] Nitrite Ql (U) Negative NEGATIVE [facility] Protein (U) [Mass/Vol] 11.9 mg/dL <=11.9 [facility] Protein Ql (U) Negative NEG/TRACE [facility] Leukocytes [#/volume] correc maryuri for nucleated erythrocytes in Blood by Automated counon 11-08-2023 WBC corrected for nucl RBC Auto (Bld) [#/Vol] 7.3 10 3/uL 4.0-11.0 [facility] MCH Auto (RBC) [Entitic mass ]on 11-08-2023 MCH (RBC) [Entitic mass] 26.1 pg Low 26.7-34.0 [facility] MCHC Auto (RBC) [Mass/Vol]on 11-08-2023 MCHC (RBC) [Mass/Vol] 31.0 g/dL 29.9-35.2 [facility] MCV Auto (RBC) [Entitic vol] on 11-08-2023 MCV (RBC) [Entitic vol] 84.4 fL 81.0-99.0 [facility] No Panel Informationon 11-07 25-Hydroxy Vitamin D Total 32.6 ng/mL [facility] Comment on above: <20 ng/mL Vit D defi cient20-<30 ng/mL Vit D [id number] ng/mL Vit D sufficient>100 ng/mL Potential Toxicity Parathyroid Hormone (Intact) 106 pg/mL Abnormal 15-65 [facility] Comment on above: Performed at: [facility] [employer] [address] [id number] Director: True Herron PhD, Phone: [phone] Phosphorus Level 3.8 mg/dL 2.6-4.[address] [facility] Urine Occult Blood Negative NEGATIVE [facility] Urine Random Creatinine 73.41 mg/dL 20.00-300.00 [facility] Platelet mean volume Auto (B ld) [Entitic vol]on 11-08-2023 Platelet mean volume (Bld) [Entitic vol] 8.6 fL Low 9.5-13.5 [facility] Platelets Auto (Bld) [#/Vol] on 11-08-2023 Platelets (Bld) [#/Vol] 401 10 3/uL 150-450 [facility] RBC Auto (Bld) [#/Vol]on RBC (Bld) [#/Vol] 3.33 10 6/uL Low 4.20-5.40 [facility] Serum or plasma albumin/glob ulin mass ratioon 11-08-2023 Albumin/Globulin [Mass ratio] 0.9 {ratio} [facility] Serum or plasma anion gap de terminationon 11-08-2023 Anion gap [Moles/Vol] 12.0 mmol/L [facility] Urine protein/creatinine rat ioon 11-08-2023 Protein/Creatinine (U) [Ratio] 0.16 [facility] Follow-Upon 10-12-2023 Follow-Up [id number] Chiara Eduardo 1955 Date Provider Department Center 10/12/2023 XANDER FARLEY Family History Problem Relation Age of Onset Stroke Mother Kidney disease Father Coronary artery disease Paternal Grandfather Family Status - Relation Status Age at Mother Father Paternal Grandfather Level of Service:26462 SC OFFICE/OUTPATIENT ESTABLISHED MOD MDM 30 MIN Normal [facility] Office Visiton 06-29-2023 Follow-up visit [id number] Chiara Eduardo 1955 Provider Department Center 06/29/2023 XANDER FARLEY Family History Problem Relation Age of Onset Stroke Mother Kidney disease Father Coronary artery disease Paternal Grandfather Family Status - Relation Status Age at Mother Father Paternal Grandfather Level of Service:[address] [place] OFFICE/OUTPATIENT ESTABLISHED LOW MDM 20 MIN Reason for Visit and Comments: Follow-up [960633] - Holter monitor results Normal [facility] PTH INTACTon 08-04-2022 PTH, Intact 41 pg/mL Normal 15-65 [facility] Comment on above: Performed By: #### P THINT ####[facility] [address] [place] [address]Dr. Osmel Shelton HEMOGRAM AND PLATELon 2022 Hematocrit (Bld) [Volume fraction] 34.6 % Critically low 36.0-48.0 [facility] Comment on above: Performed By: #### H H #### [facility] [address] [place], [place] [address] Dr. Osmel Shelton Hemoglobin (Bld) [Mass/Vol] 11.1 g/dL Critically low 12.0-16.0 [facility] Comment on above: Performed By: #### H H #### [facility] [address] [place] [address] [address] Osmel Shelton MCH (RBC) [Entitic mass] 29.3 pg Normal 26.7-34.0 [facility] Comment on above: Performed By: #### H H #### [facility] [address] [place] [address] Dr. Osmel Shelton MCHC (RBC) [Mass/Vol] 32.1 g/dL Normal 29.9-35.2 [facility] Comment on above: Performed By: #### H H #### [facility] [address] [place] [address] Dr. Osmel Shelton MCV (RBC) [Entitic vol] 91.3 fL Normal 81.0-99.0 [facility] Comment on above: Performed By: #### H H #### [facility] [address] [place] [address] Dr. Osmel Shelton PLT 306 103/ul Normal 150-450 [facility] Comment on above: Performed By: #### H H #### [facility] [address] [place] [address] Dr. Osmel Shelton RBC 3.79 106/ul Critically low 4.20-5.40 [facility] Comment on above: Performed By: #### H H #### [facility] [address] [place] [address] Dr. Osmel Shelton WBC 4.8 103/ul Normal 4.0-11.0 [facility] Comment on above: Performed By: #### H H #### [facility] [address] [place] [address] Dr. Osmel Shelton MAGNESIUMon 08-03-2022 Magnesium [Mass/Vol] 1.9 mg/dL Normal 1.8-2.4 [facility] Comment on above: Performed By: #### P HOS, MG, CMP, URIC #### [facility] [address] [place] [address] Dr. Osmel Shelton PHOSPHORUSon 08-03-2022 Phosphate [Mass/Vol] 4.4 mg/dL Normal 2.6-4.7 [facility] Comment on above: Performed By: #### P HOS, MG, CMP, URIC #### [facility] [address] [place] [address] Dr. Osmel Shelton PROF 14(COMP METB)on 023 Albumin [Mass/Vol] 3.6 g/dL Normal 3.4-5.0 [facility] Comment on above: Performed By: #### P HOS, MG, CMP, URIC ####[facility] [address] [place] [address]Dr. Osmel Shelton Albumin/Globulin [Mass ratio] 0.9 {ratio} Normal [facility] Comment on above: Performed By: #### P HOS, MG, CMP, URIC ####[facility] [address] [place] [address]Dr. Osmel Shelton ALP [Catalytic activity/Vol] 136 U/L Critically high 46-116 [facility] Comment on above: Performed By: #### P HOS, MG, CMP, URIC ####[facility] [address] [place], [place] [address]Dr. Osmel Shelton ALT [Catalytic activity/Vol] 29 U/L Normal 14-59 [facility] Comment on above: Performed By: #### P HOS, MG, CMP, URIC ####[facility] [address] [place] [address]DrLissett Shelton Anion gap [Moles/Vol] 13.5 mmol/L Normal [facility] Comment on above: Performed By: #### P HOS, MG, CMP, URIC ####[facility] [address] [place], [place] [address]Dr. Osmel Shelton AST [Catalytic activity/Vol] 27 U/L Normal 15-37 [facility] Comment on above: Performed By: #### P HOS, MG, CMP, URIC ####[facility] [address] [place] [address]DrLissett Shelton Bilirubin [Mass/Vol] 0.2 mg/dL Normal 0.2-1.0 [facility] Comment on above: Performed By: #### P HOS, MG, CMP, URIC ####[facility] [address] [place], [place] [address]DrLissett Shelton Calcium [Mass/Vol] 9.0 mg/dL Normal 8.5-10.1 [facility] Comment on above: Performed By: #### P HOS, MG, CMP, URIC ####[facility] [address] [place] [address]Dr. Osmel Shelton Chloride [Moles/Vol] 100 mmol/L Normal 98-107 [facility] Comment on above: Performed By: #### P HOS, MG, CMP, URIC ####[facility] [address] [place] [address]Dr. Osmel Shelton CO2 [Moles/Vol] 25.7 mmol/L Normal 21.0-32.0 [facility] Comment on above: Performed By: #### P HOS, MG, CMP, URIC ####[facility] [address] [place] [address]Dr. Osmel Shelton Creatinine [Mass/Vol] 1.40 mg/dL Critically high 0.55-1.02 [facility] Comment on above: Performed By: #### P HOS, MG, CMP, URIC ####[facility] [address] [place] [address]Dr. Osmel Shelton EGFR-AF [place] 45 mL/min/1.73m2 Critically low >=60 [facility] Comment on above: Performed By: #### P HOS, MG, CMP, URIC ####[facility] [address] [place] [address]Dr. Osmel Shelton EGFR-NON AF [place] 37 mL/min/1.73m2 Critically low >=60 [facility] Comment on above: Performed By: #### P HOS, MG, CMP, URIC ####[facility] [address] [place] [address]Dr. Osmel Shelton Globulin (S) [Mass/Vol] 4.2 g/dL Normal [facility] Comment on above: Performed By: #### P HOS, MG, CMP, URIC ####[facility] [address] [place] [address]Dr. Osmel Shelton Glucose [Mass/Vol] 101 mg/dL Normal 74-106 [facility] Comment on above: Performed By: #### P HOS, MG, CMP, URIC ####[facility] [address] [place] [address]Dr. Osmel Shelton Potassium [Moles/Vol] 4.2 mmol/L Normal 3.5-5.1 [facility] Comment on above: Performed By: #### P HOS, MG, CMP, URIC ####[facility] [address] [place] [address]Dr. Osmel Shelton Protein [Mass/Vol] 7.8 g/dL Normal 6.4-8.2 [facility] Comment on above: Performed By: #### P HOS, MG, CMP, URIC ####[facility] [address] [place] [address]Dr. Osmel Shelton Sodium [Moles/Vol] 135 mmol/L Critically low 136-145 [facility] [place] Comment on above: Performed By: #### P HOS, MG, CMP, URIC ####[facility] [address] [place] [address]Dr. Osmel Shelton Urea nitrogen [Mass/Vol] 23.0 mg/dL Critically high 7.0-18.0 [facility] Comment on above: Performed By: #### P HOS, MG, CMP, URIC ####[facility] [address] [place] [address]Dr. Osmel Shelton Urea nitrogen/Creatinine [Mass ratio] 16.4 mg/mg Normal [facility] Comment on above: Performed By: #### P HOS, MG, CMP, URIC ####[facility] [address] [place] [address]Dr. Osmel Shelton UA RANDOMon 08-03-2022 Bilirubin Ql (U) Negative Normal NEGATIVE [facility] Comment on above: Performed By: #### U A #### [facility] [address] [place] [address] Dr. Osmel Shelton Clarity (U) CLEAR Normal CLEAR [facility] Comment on above: Performed By: #### U A #### [facility] [address] [place] [address] [address] Osmel Shelton Color (U) LT. YELLOW Normal YELLOW [facility] Comment on above: Performed By: #### U A #### [facility] [address] [place] [address] [address] Osmel Shelton Glucose Ql (U) Negative Normal NEGATIVE [facility] Comment on above: Performed By: #### U A #### [facility] [address] [place] [address] [address] Osmel Shelton Hemoglobin Ql (U) Negative Normal NEGATIVE [facility] Comment on above: Performed By: #### U A #### [facility] [address] [place] [address] [address] Osmel Shelton Ketones Ql (U) Negative Normal NEGATIVE [facility] Comment on above: Performed By: #### U A #### [facility] [address] [place] [address] Dr. Osmel Shelton LEUKOCYTES Negative Normal NEGATIVE [facility] Comment on above: Performed By: #### U A #### [facility] [address] [place] [address] [address] Osmel Shelton Nitrite Ql (U) Negative Normal NEGATIVE [facility] Comment on above: Performed By: #### U A #### [facility] [address] [place] [address] [address] Osmel Shelton pH (U) 5.5 [pH] Normal 5-9 [facility] Comment on above: Performed By: #### U A #### [facility] [address] [place] [address] Dr. Osmel Shelton SPEC GRAVITY <=1.005 Abnormal 1.005-<=1.025 [facility] Comment on above: Performed By: #### U A #### [facility] [address] [place] [address] Dr. Osmel Shelton UA PROTEIN Negative Normal NEGATIVE/ TRACE [facility] Comment on above: Performed By: #### U A #### [facility] [address] [place] [address] Dr. Osmel Shelton Urobilinogen Qn (U) 0.2 {Chuy'U}/dL Normal 0.2 - 1. 0 [facility] Comment on above: Performed By: #### U A #### [facility] [address] [place] [address] [address] Osmel Shelton URIC ACID SERUMon 08-03-2022 Urate [Mass/Vol] 8.4 mg/dL Critically high 2.6-6.0 [facility] Comment on above: Performed By: #### P HOS, MG, CMP, URIC ####[facility] [address] [place] [address]Dr. Osmel Shelton URINE T PROTEIN CREAT RATIOo n 08-03-2022 Protein (U) [Mass/Vol] 4.6 mg/dL Normal <=12.0 [facility] Comment on above: Performed By: #### U RTPCR #### [facility] [address] [place] [address] Dr. Osmel Shelton UR PROT CREAT RAT 0.09 Normal [facility] Comment on above: Performed By: #### U RTPCR #### [facility] [address] [place] [address] [address] Osmel Shelton URINE CREAT 50.21 mg/dL Normal 20.00-300.00 [facility] Comment on above: Performed By: #### U RTPCR #### [facility] [address] [place] [address] Dr. Osmel Shelton VITAMIN D 25 OHon 08-03-2022 VIT D 25-OH 20.9 ng/mL Normal [facility] Comment on above: Performed By: #### V ITAD ####[facility] [address] [place], [place] [address]Dr. Osmel Shelton VIT D RANGES SEE BELOW Normal [facility] Comment on above: Result Comment: <20 ng/mL Vit D deficient 20 - <30 ng/mL Vit D insufficient 30 - 100 ng/mL Vit D sufficient >100 ng/mL Potential Toxicity Performed By: #### V ITAD ####[facility] [address] [place], [place] [address]Dr. Osmel Shelton CBC AUTO DIFFon 07-09-2022 BASO # 0.0 103/ul Normal 0.0-0.1 [facility] Comment on above: Performed By: #### C BC #### [facility] [address] [place] [address] [address] Osmel Shelton Basophils/100 WBC (Bld) 0.5 % Normal 0.2-2.0 [facility] Comment on above: Performed By: #### C BC #### [facility] [address] [place] [address] Dr. Osmel Shelton EO # 0.2 103/ul Normal 0.0-0.7 [facility] Comment on above: Performed By: #### C BC #### [facility] [address] [place] [address] Dr. Osmel Shelton Eosinophils/100 WBC (Bld) 2.9 % Normal 0.9-7.0 [facility] Comment on above: Performed By: #### C BC #### [facility] [address] [place] [address] Dr. Osmel Shelton Erythrocyte distribution width (RBC) [Ratio] 14.3 % Normal 11.0-15.0 [facility] Comment on above: Performed By: #### C BC #### [facility] [address] [place] [address] Dr. Osmel Shelton Hematocrit (Bld) [Volume fraction] 34.4 % Critically low 36.0-48.0 [facility] Comment on above: Performed By: #### C BC #### [facility] [address] [place] [address] Dr. Osmel Shelton Hemoglobin (Bld) [Mass/Vol] 11.4 g/dL Critically low 12.0-16.0 [facility] Comment on above: Performed By: #### C BC #### [facility] [address] [place] [address] Dr. Osmel Shelton IG # 0.02 10e3/ul Normal 0.00-0.03 [facility] Comment on above: Performed By: #### C BC #### [facility] [address] [place] [address] Dr. Osmel Shelton IG % 0.4 % Normal 0.0-0.5 [facility] Comment on above: Performed By: #### C BC #### [facility] [address] [place] [address] Dr. Osmel Shelton LYMPH # 1.3 103/ul Normal 1.2-3.8 [facility] Comment on above: Performed By: #### C BC #### [facility] [address] [place] [address] Dr. Osmel Shelton Lymphocytes/100 WBC (Bld) 23.0 % Normal 20.5-60.0 [facility] Comment on above: Performed By: #### C BC #### [facility] [address] [place] [address] Dr. Osmel Shelton MANUAL DIFF REQ NO Normal [facility] Comment on above: Performed By: #### C BC #### [facility] [address] [place] [address] Dr. Osmel Shelton MCH (RBC) [Entitic mass] 29.8 pg Normal 26.7-34.0 [facility] Comment on above: Performed By: #### C BC #### [facility] [address] [place] [address] Dr. Osmel Shelton MCHC (RBC) [Mass/Vol] 33.1 g/dL Normal 29.9-35.2 [facility] Comment on above: Performed By: #### C BC #### [facility] [address] [place] [address] Dr. Osmel Shelton MCV (RBC) [Entitic vol] 89.8 fL Normal 81.0-99.0 [facility] Comment on above: Performed By: #### C BC #### [facility] [address] [place] [address] Dr. Osmel Shelton MONO # 0.6 103/ul Normal 0.3-0.8 [facility] Comment on above: Performed By: #### C BC #### [facility] [address] [place] [address] Dr. Osmel Shelton Monocytes/100 WBC (Bld) 11.0 % Normal 1.7-12.0 [facility] Comment on above: Performed By: #### C BC #### [facility] [address] [place] [address] [address] Osmel Shelton NEUT # 3.4 103/ul Normal 1.4-6.5 [facility] Comment on above: Performed By: #### C BC #### [facility] [id number] Osmel Shelton Neutrophils/100 WBC (Bld) 62.2 % Normal 43.0-75.0 [facility] Comment on above: Performed By: #### C BC #### [facility] [address] [place] [address] [address] Osmel Shelton Platelet mean volume (Bld) [Entitic vol] 9.4 fL Critically low 9.5-13.5 [facility] Comment on above: Performed By: #### C BC #### [facility] [address] [place] [address] [address] Osmel Shelton PLT 327 103/ul Normal 150-450 [facility] Comment on above: Performed By: #### C BC #### [facility] [address] [place] [address] [address] Osmel Shelton RBC 3.83 106/ul Critically low 4.20-5.[address] [facility] Comment on above: Performed By: #### C BC #### [facility] [address] [place] [address] [address] Osmel Shelton WBC 5.5 103/ul Normal 4.0-11.0 [facility] Comment on above: Performed By: #### C BC #### [facility] [address] [place] [address] [address] Osmel Shelton PROF CHEM 8 (BAS METB)on Anion gap [Moles/Vol] 11.7 mmol/L Normal [facility] Comment on above: Performed By: #### B MP ####[facility] [address] [place] [id number]. Osmel Shelton Calcium [Mass/Vol] 8.8 mg/dL Normal 8.5-10.1 [facility] Comment on above: Performed By: #### B MP ####[facility] [address] [place] [id number]. Osmel Shelton Chloride [Moles/Vol] 99 mmol/L Normal 98-107 [facility] Comment on above: Performed By: #### B MP ####[facility] [address] [place] [id number]. Osmel Shelton CO2 [Moles/Vol] 27.1 mmol/L Normal 21.0-32.0 [facility] Comment on above: Performed By: #### B MP ####[facility] [address] [place] [phone]. Osmel Shelton Creatinine [Mass/Vol] 1.38 mg/dL Critically high 0.55-1.02 [facility] Comment on above: Performed By: #### B MP ####[facility] [address] [place] [address]Dr. Osmel Nikita EGFR-AF [place] 46 mL/min/1.73m2 Critically low >=60 [facility] Comment on above: Performed By: #### B MP ####[facility] [address] [place] [phone]. Osmel Shelton EGFR-NON AF [place] 38 mL/min/1.73m2 Critically low >=60 [facility] Comment on above: Performed By: #### B MP ####[facility] [address] [place] [phone]. Omsel Shelton Glucose [Mass/Vol] 105 mg/dL Normal 74-106 [facility] Comment on above: Performed By: #### B MP ####[facility] [address] [place] [phone]. Osmel Shelton Potassium [Moles/Vol] 4.8 mmol/L Normal 3.5-5.1 [facility] Comment on above: Performed By: #### B MP ####[facility] [address] [place] [address]Dr. Osmel Shelton Sodium [Moles/Vol] 133 mmol/L Critically low 136-145 [facility] [place] Comment on above: Performed By: #### B MP ####[facility] [address] [place], [place] [address]Jc. Osmel Shelton Urea nitrogen [Mass/Vol] 19.0 mg/dL Critically high 7.0-18.0 [facility] Comment on above: Performed By: #### B MP ####[facility] [address] [place], [place] [address]Lh. Osmel Shelton Urea nitrogen/Creatinine [Mass ratio] 13.8 mg/mg Normal [facility] Comment on above: Performed By: #### B MP ####[facility] [address] [place], [place] [address]Kg. Osmel Shelton PULMONARY FUNCTION TESTon PULMONARY FUNCTION [...] O2 indicated. Clinical correlation required. Normal [facility] US KIDNEYSon 04-15-2022 US KIDNEYS EXAMINATION: [...] TIMOTHY GUIDRY Date: 2022-04-15 16:21 Normal [facility] CT LUNG CANCER SCREENINGon 1 CT [...] TIMOTHY GUIDRY Date: 2022-01-19 14:40 Normal [facility] CBC AUTO DIFFon 01-05-2022 BASO # 0.1 103/ul Normal 0.0-0.1 [facility] Comment on above: Performed By: #### C BC #### [facility] [address] [place] [address] [address] Osmel Shelton Basophils/100 WBC (Bld) 1.0 % Normal 0.2-2.0 [facility] Comment on above: Performed By: #### C BC #### [facility] [address] [place] [address] [address] Osmel Shelton EO # 0.2 103/ul Normal 0.0-0.7 [facility] Comment on above: Performed By: #### C BC #### [facility] [address] [place] [address] Dr. Osmel Shelton Eosinophils/100 WBC (Bld) 3.6 % Normal 0.9-7.0 [facility] Comment on above: Performed By: #### C BC #### [facility] [address] [place] [address] Dr. Osmel Shelton Erythrocyte distribution width (RBC) [Ratio] 14.1 % Normal 11.0-15.0 [facility] Comment on above: Performed By: #### C BC #### [facility] [address] [place] [address] Dr. Osmel Shelton Hematocrit (Bld) [Volume fraction] 36.5 % Normal 36.0-48.0 [facility] Comment on above: Performed By: #### C BC #### [facility] [address] [place] [address] Dr. Osmel Shelton Hemoglobin (Bld) [Mass/Vol] 11.8 g/dL Critically low 12.0-16.0 [facility] Comment on above: Performed By: #### C BC #### [facility] [address] [place] [address] Dr. Osmel Shelton IG # 0.02 10e3/ul Normal 0.00-0.03 [facility] Comment on above: Performed By: #### C BC #### [facility] [address] [place] [address] Dr. Osmel Shelton IG % 0.3 % Normal 0.0-0.5 [facility] Comment on above: Performed By: #### C BC #### [facility] [address] [place] [address] Dr. Osmel Shelton LYMPH # 1.3 103/ul Normal 1.2-3.8 [facility] Comment on above: Performed By: #### C BC #### [facility] [address] [place] [address] Dr. Osmel Shelton Lymphocytes/100 WBC (Bld) 21.4 % Normal 20.5-60.0 [facility] Comment on above: Performed By: #### C BC #### [facility] [address] [place] [address] Dr. Osmel Shelton MANUAL DIFF REQ NO Normal [facility] Comment on above: Performed By: #### C BC #### [facility] [address] [place] [address] Dr. Osmel Shelton MCH (RBC) [Entitic mass] 29.3 pg Normal 26.7-34.0 [facility] Comment on above: Performed By: #### C BC #### [facility] [address] [place] [address] Dr. Osmel Shelton MCHC (RBC) [Mass/Vol] 32.3 g/dL Normal 29.9-35.2 [facility] Comment on above: Performed By: #### C BC #### [facility] [address] [place] [address] Dr. Osmel Shelton MCV (RBC) [Entitic vol] 90.6 fL Normal 81.0-99.0 [facility] Comment on above: Performed By: #### C BC #### [facility] [address] [place] [address] Dr. Osmel Shelton MONO # 0.7 103/ul Normal 0.3-0.8 [facility] Comment on above: Performed By: #### C BC #### [facility] [address] [place] [address] Dr. Osmel Shelton Monocytes/100 WBC (Bld) 11.2 % Normal 1.7-12.0 [facility] Comment on above: Performed By: #### C BC #### [facility] [address] [place] [address] Dr. Osmel Shelton NEUT # 3.7 103/ul Normal 1.4-6.5 [facility] Comment on above: Performed By: #### C BC #### [facility] [address] [place] [address] Dr. Osmel Shelton Neutrophils/100 WBC (Bld) 62.5 % Normal 43.0-75.0 [facility] Comment on above: Performed By: #### C BC #### [facility] [address] [place] [address] Dr. Osmel Shelton Platelet mean volume (Bld) [Entitic vol] 9.4 fL Critically low 9.5-13.5 [facility] Comment on above: Performed By: #### C BC #### [facility] [address] [place] [address] Dr. Osmel Shelton PLT 364 103/ul Normal 150-450 [facility] Comment on above: Performed By: #### C BC #### [facility] [address] [address] [address] Osmel Shelton RBC 4.03 106/ul Critically low 4.20-5.40 [facility] Comment on above: Performed By: #### C BC #### [facility] [address] [place] [address] Dr. Osmel Shelton WBC 5.9 103/ul Normal 4.0-11.0 [facility] Comment on above: Performed By: #### C BC #### [facility] [address] [place] [address] Dr. Osmel Shelton LIPID PROFILEon 01-05-2022 CHOL-HDL RATIO NORM SEE BELOW Normal [facility] Comment on above: Result Comment: 3.3 - 4.4 LOW RISK 4.4 - 7.1 AVERAGE RISK 7.1 - 11.0 MODERATE RISK >11.0 HIGH RISK Performed By: #### C MP, LIPID #### [facility] [address] [place] [address] Dr. Osmel Shelton Cholesterol [Mass/Vol] 149 mg/dL Normal <=200 [facility] Comment on above: Performed By: #### C MP, LIPID #### [facility] [address] [place] [address] Dr. Osmel Shelton Cholesterol in HDL [Mass/Vol] 75 mg/dL Critically high 40-60 [facility] Comment on above: Performed By: #### C MP, LIPID #### [facility] [address] [place] [address] Dr. Osmel Shelton Cholesterol in LDL [Mass/Vol] 60.4 mg/dL Normal [facility] Comment on above: Performed By: #### C MP, LIPID #### [facility] [address] [address] [address] Osmel Shelton Cholesterol.total/Ch olesterol in HDL [Mass ratio] 2.0 {ratio} Normal [facility] Comment on above: Performed By: #### C MP, LIPID #### [facility] [address] [place] [address] Dr. Osmel Shelton HDL NORMAL > or = 60 mg/dl - LOW CARDIOVASCULAR RISK <40 mg/dl - HIGH CARDIOVASCULAR RISK Normal [facility] Comment on above: Performed By: #### C MP, LIPID #### [facility] [address] [place] [address] Dr. Osmel Shelton LDL CALC NORMAL SEE BELOW Normal [facility] Comment on above: Result Comment: <100 mg/dl OPTIMAL 100 - 129 mg/dl NEAR OR ABOVE OPTIMAL 130 - 159 mg/dl BORDERLINE HIGH 160 - 189 mg/dl HIGH >190 mg/dl VERY HIGH Performed By: #### C MP, LIPID #### [facility] [address] [place] [address] Dr. Osmel Shelton Triglyceride [Mass/Vol] 68 mg/dL Normal <=150 [facility] Comment on above: Performed By: #### C MP, LIPID #### [facility] [address] [place] [address] Dr. Osmel Shelton VLDL CALC 13.6 mg/dL Normal [facility] Comment on above: Performed By: #### C MP, LIPID #### [facility] [address] [place] [address] Dr. Osmel Shelton PROF 14(COMP METB)on 022 Albumin [Mass/Vol] 3.6 g/dL Normal 3.4-5.0 [facility] Comment on above: Performed By: #### C MP, LIPID #### [facility] [address] [place] [address] Dr. Osmel Shelton Albumin/Globulin [Mass ratio] 0.9 {ratio} Normal [facility] Comment on above: Performed By: #### C MP, LIPID #### [facility] [address] [place] [address] Dr. Osmel Shelton ALP [Catalytic activity/Vol] 152 U/L Critically high 46-116 [facility] Comment on above: Performed By: #### C MP, LIPID #### [facility] [address] [address] [address] Osmel Shelton ALT [Catalytic activity/Vol] 29 U/L Normal 14-59 [facility] Comment on above: Performed By: #### C MP, LIPID #### [facility] [address] [address] [address] Osmel Shelton Anion gap [Moles/Vol] 11.1 mmol/L Normal [facility] Comment on above: Performed By: #### C MP, LIPID #### [facility] [address] [place] [address] Dr. Osmel Shelton AST [Catalytic activity/Vol] 23 U/L Normal 15-37 [facility] Comment on above: Performed By: #### C MP, LIPID #### [facility] [address] [address] [address] Osmel Shelton Bilirubin [Mass/Vol] 0.3 mg/dL Normal 0.2-1.0 [facility] Comment on above: Performed By: #### C MP, LIPID #### [facility] [address] [place] [address] Dr. Osmel Shelton Calcium [Mass/Vol] 8.9 mg/dL Normal 8.5-10.1 [facility] Comment on above: Performed By: #### C MP, LIPID #### [facility] [address] [address] [address] Osmel Shelton Chloride [Moles/Vol] 96 mmol/L Critically low 98-107 [facility] Comment on above: Performed By: #### C MP, LIPID #### [facility] [address] [address] [address] Osmel Shelton CO2 [Moles/Vol] 28.2 mmol/L Normal 21.0-32.0 [facility] Comment on above: Performed By: #### C MP, LIPID #### [facility] [address] [place] [address] Dr. Osmel Shelton Creatinine [Mass/Vol] 1.46 mg/dL Critically high 0.55-1.02 [facility] Comment on above: Performed By: #### C MP, LIPID #### [facility] [address] [address] [address] Osmel Shelton EGFR-AF [place] 43 mL/min/1.73m2 Critically low >=60 [facility] Comment on above: Performed By: #### C MP, LIPID #### [facility] [address] [address] [address] Osmel Shelton EGFR-NON AF [place] 36 mL/min/1.73m2 Critically low >=60 [facility] Comment on above: Performed By: #### C MP, LIPID #### [facility] [address] [place] [address] Dr. Osmel Shelton Globulin (S) [Mass/Vol] 4.2 g/dL Normal [facility] Comment on above: Performed By: #### C MP, LIPID #### [facility] [address] [place] [address] Dr. Osmel Shelton Glucose [Mass/Vol] 95 mg/dL Normal 74-106 [facility] Comment on above: Performed By: #### C MP, LIPID #### [facility] [address] [address] [address] Osmel Shelton Potassium [Moles/Vol] 5.3 mmol/L Critically high 3.5-5.1 [facility] Comment on above: Performed By: #### C MP, LIPID #### [facility] [address] [address] [address] Osmel Shelton Protein [Mass/Vol] 7.8 g/dL Normal 6.4-8.2 [facility] Comment on above: Performed By: #### C MP, LIPID #### [facility] [address] [address] [address] Osmel Shelton Sodium [Moles/Vol] 130 mmol/L Critically low 136-145 [facility] [place] Comment on above: Performed By: #### C MP, LIPID #### [facility] [address] [place], [place] [address] Dr. Osmel Shelton Urea nitrogen [Mass/Vol] 22.0 mg/dL Critically high 7.0-18.0 [facility] Comment on above: Performed By: #### C MP, LIPID #### [facility] [address] [place], [place] [address] Dr. Osmel Shelton Urea nitrogen/Creatinine [Mass ratio] 15.1 mg/mg Normal [facility] Comment on above: Performed By: #### C MP, LIPID #### [facility] [address] [place], [place] [address] Dr. Osmel Shelton Vital Signs Date Time Vital Sign Value Performing Clinician Facility 06-08-2024 14:43-0400 Body mass index (BMI) [Ratio] 35.39 kg/m2 Nolvia Jimenez [employer] Work Phone: [facility] 06-08-2024 14:43-0400 Body temperature 97.81 [degF] Nolvia Jimenez [employer] Work Phone: [facility] 06-08-2024 14:43-0400 Body weight 90.63 kg Nolvia Jimenez [employer] Work Phone: [facility] 06-08-2024 14:43-0400 Diastolic blood pressure 80 mm[Hg] Nolvia Jimenez [employer] Work Phone: [facility] 06-08-2024 14:43-0400 Heart rate 72 /min Nolviaxochilt Jimenez [employer] Work Phone: [facility] 06-08-2024 14:43-0400 Respiratory rate 19 /min Nolvia Jimenez [employer] Work Phone: [facility] 06-08-2024 14:43-0400 SaO2% (BldA) [Mass fraction] 98 % Nolvia Jimenez [employer] Work Phone: [facility] 06-08-2024 14:43-0400 Systolic blood pressure 144 mm[Hg] Nolvia Jimenez [employer] Work Phone: [facility] 04-26-2024 15:02-0500 Body height 160 cm Argelia Cheng [employer] Work Phone: [facility] 04-26-2024 15:02-0500 Body mass index (BMI) [Ratio] 35.96 kg/m2 Argelia Cheng [employer] Work Phone: [facility] 04-26-2024 15:02-0500 Body temperature 97.2 [degF] Argelia Cheng [employer] Work Phone: [facility] 04-26-2024 15:02-0500 Body weight 92.08 kg Argelia Cheng [employer] Work Phone: [facility] 04-26-2024 15:02-0500 Diastolic blood pressure 84 mm[Hg] Argelia Cheng [employer] Work Phone: [facility] 04-26-2024 15:02-0500 Heart rate 72 /min Argelia Cheng [employer] Work Phone: [facility] 04-26-2024 15:02-0500 Respiratory rate 18 /min Argelia Cheng [employer] Work Phone: [facility] 04-26-2024 15:02-0500 SaO2% (BldA) [Mass fraction] 94 % Argelia Cheng [employer] Work Phone: [facility] 04-26-2024 15:02-0500 Systolic blood pressure 180 mm[Hg] Argelia Cheng [employer] Work Phone: [facility] 04-18-2024 13:58-0500 Body height 160 cm Argelia Cheng [employer] Work Phone: [facility] 04-18-2024 13:58-0500 Body mass index (BMI) [Ratio] 35.8 kg/m2 Argelia Cheng [employer] Work Phone: [facility] 04-18-2024 13:58-0500 Body temperature 96.21 [degF] Argelia Cheng [employer] Work Phone: [facility] 04-18-2024 13:58-0500 Body weight 91.67 kg Argelia Cheng [employer] Work Phone: [facility] 04-18-2024 13:58-0500 Diastolic blood pressure 82 mm[Hg] Argelia Cheng [employer] Work Phone: [facility] 04-18-2024 13:58-0500 Heart rate 96 /min Argelia Cheng [employer] Work Phone: [facility] 04-18-2024 13:58-0500 Respiratory rate 18 /min Argelia Cheng [employer] IN[employer]ER Work Phone: [facility] 04-18-2024 13:58-0500 SaO2% (BldA) [Mass fraction] 97 % Argelia Cheng [employer] Work Phone: [facility] 04-18-2024 13:58-0500 Systolic blood pressure 138 mm[Hg] Argelia Cheng [employer] Work Phone: [facility] 01-17-2024 13:25-0400 Body mass index (BMI) [Ratio] 34.76 kg/m2 Argelia Cheng [employer] Work Phone: [facility] 01-17-2024 13:25-0400 Body temperature 97.81 [degF] Argelia Cheng [employer] Work Phone: [facility] 01-17-2024 13:25-0400 Body weight 89 kg Argelia Cheng [employer] Work Phone: [facility] 01-17-2024 13:25-0400 Diastolic blood pressure 72 mm[Hg] Argelia Cheng [employer] Work Phone: [facility] 01-17-2024 13:25-0400 Heart rate 84 /min Argelia Cheng [employer] Work Phone: [facility] 01-17-2024 13:25-0400 SaO2% (BldA) [Mass fraction] 98 % Argelia Garciazpatrick [employer]ER Work Phone: [facility] 01-17-2024 13:25-0400 Systolic blood pressure 130 mm[Hg] Argelia Cheng [employer]ER Work Phone: [facility] 12-20-2023 15:00-0400 Diastolic blood pressure 75 mm[Hg] MD Jackelyn Guillory Work Phone: [facility] 12-20-2023 15:00-0400 Systolic blood pressure 136 mm[Hg] MD Jackelyn Guillory Work Phone: [facility] 12-17-2023 14:48-0400 Heart rate 81 /min MD Jackelyn Guillory Work Phone: [facility] 11-16-2023 15:26-0400 Body height 154.94 cm [facility] 11-16-2023 15:26-0400 Body mass index (BMI) [Ratio] 38.4 kg/m2 [facility] 11-16-2023 15:26-0400 Body temperature 96.1 [degF] [facility] 11-16-2023 15:26-0400 Body weight 92.24 kg [facility] 11-16-2023 15:26-0400 Diastolic blood pressure 79 mm[Hg] [facility] 11-16-2023 15:26-0400 Respiratory rate 20 /min [facility] 11-16-2023 15:26-0400 Systolic blood pressure 171 mm[Hg] [facility] 03-09-2023 11:20-0500 Body height 154.94 cm Jackelyn Guillory Other [facility] [employer] Other 03-09-2023 11:20-0500 Body mass index (BMI) [Ratio] 38.62 kg/m2 [employer]cal [employer] Other [employer] Other 03-09-2023 11:20-0500 Body temperature 96.7 [degF] Aziz Bakhous Other [employer] Other 03-09-2023 11:20-0500 Body weight 92.72 kg Aziz Bakhous Other [employer] Other 03-09-2023 11:20-0500 Diastolic blood pressure 60 mm[Hg] Aziz Bakhous Other [employer] Other 03-09-2023 11:20-0500 Respiratory rate 18 /min Aziz Bakhous Other [employer] Other 03-09-2023 11:20-0500 SaO2% (BldA) [Mass fraction] 97 % Aziz Bakhous Other [employer] Other 03-09-2023 11:20-0500 Systolic blood pressure 100 mm[Hg] Aziz Bakhous Other [employer] Other 04-07-2022 15:20-0500 Body height 154.94 cm Aziz Bakhous Other [employer] Other 04-07-2022 15:20-0500 Body mass index (BMI) [Ratio] 39.67 kg/m2 Aziz Bakhous Other [employer] Other 04-07-2022 15:20-0500 Body temperature 97.7 [degF] Aziz Bakhous Other [employer] Other 04-07-2022 15:20-0500 Body weight 95.26 kg Aziz Bakhous Other [employer] Other 04-07-2022 15:20-0500 Diastolic blood pressure 90 mm[Hg] Jackelyn Guillory Other [employer] Other 04-07-2022 15:20-0500 Respiratory rate 18 /min Jackelyn Guillory Other [employer] Other 04-07-2022 15:20-0500 SaO2% (BldA) [Mass fraction] 97 % Jackelyn Guillory Other [employer] Other 04-07-2022 15:20-0500 Systolic blood pressure 140 mm[Hg] Jackelyn Guillory Other [employer] Other Encounters Encounter Date Encounter Type Care Provider Facility Start: 06-15-2024 End: 06-15-2024 ambulatory [facility] Start: 06-08-2024 End: 06-08-2024 Office outpatient visit 25 minutes Nolvia Jimenez NP Work Phone: [facility] Comment on above: Essential (primary) hypertension (CMS/HCC) (Primary Dx); Morbid (severe) obesity due to excess calories (CMS/HCC); Body mass index (BMI) 35.0-35.9, adult; Chronic obstructive pulmonary disease, unspecified (CMS/HCC); Chronic kidney disease, stage 3b (HCC) (CMS/HCC); Coronary artery disease involving stony river coronary artery of stony river heart without angina pectoris (CMS/HCC); Hypomagnesemia; Mixed hyperlipidemia (CMS/HCC); Chronic low back pain, unspecified back pain laterality, unspecified whether sciatica present Start: 06-08-2024 End: 06-08-2024 ambulatory NOLVIA JIMENEZ Not Available Start: 06-08-2024 End: 06-08-2024 Bamboo flowsheet Nolvia Jimenez [employer] Work Phone: [facility] Start: 06-08-2024 End: 06-08-2024 Bamboo flowsheet Nolvia Tony [employer] Work Phone: [facility] Start: 05-23-2024 End: 05-23-2024 ambulatory [facility] Start: 04-26-2024 End: 04-26-2024 Transitional care manage srvc 7 day discharge Argelia Fergusontrick [employer] Work Phone: [facility] Comment on above: Essential hypertensi on (CMS/HCC) (Primary Dx) Start: 04-26-2024 End: 04-26-2024 ambulatory ARGELIA CHENG Not Available Start: 04-26-2024 End: 04-26-2024 Bamboo flowsheet Argelia Cheng [employer] Work Phone: [facility] Start: 04-26-2024 End: 04-26-2024 Bamboo flowsheet Argelia Cheng [employer] Work Phone: [facility] Start: 04-18-2024 End: 04-18-2024 Bamboo flowsheet Argelia Cheng [employer] Work Phone: [facility] Start: 04-18-2024 End: 04-18-2024 Bamboo flowsheet Argelia Cheng [employer] Work Phone: [facility] Start: 04-18-2024 End: 04-18-2024 Office outpatient visit 10 minutes Argelia Cheng [employer] Work Phone: [facility] Comment on above: Irregular heartbeat (Primary Dx) Start: 04-18-2024 End: 04-18-2024 ambulatory ARGELIA CHENG Not Available Start: 04-03-2024 End: 04-03-2024 Refill Argelia Cheng [employer] Work Phone: [facility] Comment on [...] 01-17-2024 End: 01-17-2024 Bamboo flowsheet Argelia Manzanok [employer]ER Work Phone: [facility] Start: 01-17-2024 End: 01-17-2024 Bamboo flowsheet Argelia Fergusontrick [employer]ER Work Phone: [facility] Start: 01-17-2024 End: 01-18-2024 Refill Trace Kelly MD Work Phone: [facility] Comment on above: 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) Start: 01-17-2024 End: 01-17-2024 Assay of hemosiderin, quant Argelia Fergusontrick [employer]ER Work Phone: [facility] Work Phone: Start: 01-17-2024 End: 01-17-2024 Patient encounter procedure Argelia Cheng [employer]ER Work Phone: [facility] Comment on above: Routine general medi korin examination at health care facility (Primary Dx) Start: 01-04-2024 End: 01-04-2024 ambulatory [facility] Start: 12-20-2023 End: 12-20-2023 Discharged Recurring MD Jackelyn Guillory Work Phone: [facility] Work Phone: Start: 12-20-2023 End: 12-20-2023 ambulatory MD Jackelyn Guillory Work Phone: [facility] Work Phone: Start: 11-23-2023 End: 11-23-2023 Clinisync Result Encounter Generic External Data Provider [facility] Department Unsolicited Start: 11-23-2023 End: 11-23-2023 Clinisync Result Encounter Generic External Data Provider [facility] External Department Unsolicited Start: 11-23-2023 Non-patient / Non-visit MD Rowan Guillory Work Phone: [facility] Work Phone: Start: 11-16-2023 End: 11-16-2023 ambulatory [facility] Work Phone: Start: 11-16-2023 End: 11-16-2023 Patient encounter procedure [facility] Work Phone: Start: 11-08-2023 Non-patient / Non-visit [facility] Work Phone: Start: 10-12-2023 End: 10-12-2023 ambulatory [facility] Start: 06-29-2023 End: 06-29-2023 ambulatory [facility] Start: 03-09-2023 End: 03-09-2023 ambulatory Jackelyn Guillory Other [facility] [employer] Other Start: 03-09-2023 Office outpatient vi sit 25 minutes Jackelyn Guillory [facility] Start: 08-03-2022 End: 08-04-2022 ambulatory JACKELYN GUILLORY Facility:[facility] Start: 07-15-2022 Encounter for other preprocedural examination DR REINA WARD [facility] Start: 07-09-2022 End: 07-10-[address] REINA WARD Facility:[facility] Start: 07-09-2022 End: 07-10-2022 Encounter for other preprocedural examination DR REINA WARD Facility:[facility] Start: 07-09-2022 ambulatory LUISJUSTUS SCHUMACHER . Facility :[facility] Start: 05-20-2022 End: 05-21-2022 ambulatory LUISJUSTUS SCHUMACHER . Facility:[facility] Start: 04-27-2022 End: 07-08-2022 ambulatory LUISJUSTUS SCHUMACHER . Facility:[facility] Start: 04-15-2022 End: 04-16-2022 ambulatory JACKELYN ALEMANS Facility:[facility] Start: 04-07-2022 End: 04-07-2022 ambulatory Jackelyn Alemans Other [employer] Other Start: 04-07-2022 Office outpatient ne w 30 minutes Azsasha Alemans [facility] Start: 01-23-2022 End: 01-24-2022 ambulatory [...] colon [facility] Start: 01-16-2025 Medicare Annual Well ness (AWV) Medicare Annual Wellness (AWV) [facility] Start: 01-16-2025 Pneumococcal Vaccine : 65+ Years (1 of 2 - PCV) Pneumococcal Vaccine: 65+ Years (1 of 2 - PCV) [facility] Comment on above: Postponed from 05/25 (Patient Refused) Start: 09-05-2024 End: 09-05-2024 Patient encounter procedure 09/05/2024 11:20 AM EDT Office Visit [facility] [address] [place] [id number] Nolvia Jimenez, [employer] INST[employer]ER [address] [place] [address] [facility] Start: 08-03-2024 Influenza vaccination Influenza Vacc ine (#1) [facility] Comment on above: Postponed from 11/27 (Patient Refused) Start: 06-08-2024 End: 06-08-2024 Patient encounter procedure 06/08/2024 2:40 PM EDT Office Visit [facility] [address] [place] [address] Nolvia Jimenez NP [address] [place] [address] Coronary artery disease involving st[place] coronary artery of st[place] heart without angina pectoris (CMS/HCC) (Primary Dx); Morbid (severe) obesity due to excess calories (CMS/HCC); Essential (primary) hypertension (CMS/HCC); Body mass index (BMI) 35.0-35.9, adult; Chronic obstructive pulmonary disease, unspecified (CMS/HCC); Chronic kidney disease, stage 3b (HCC) (CMS/HCC); Hypomagnesemia; Mixed hyperlipidemia (CMS/HCC) [facility] Comment on above: Coronary artery dise ase involving st[place] coronary artery of [place] heart without angina pectoris (CMS/HCC) (Primary Dx); Morbid (severe) obesity due to excess calories (CMS/HCC); Essential (primary) hypertension (CMS/HCC); Body mass index (BMI) 35.0-35.9, adult; Chronic obstructive pulmonary disease, unspecified (CMS/HCC); Chronic kidney disease, stage 3b (HCC) (CMS/HCC); Hypomagnesemia; Mixed hyperlipidemia (CMS/HCC) Start: 06-08-2024 End: 06-08-2024 Patient encounter procedure 06/08/2024 1:30 PM EDT Office Visit [facility] [address] [place] [address] Argelia Cheng NP [address] [place] [address] [facility] Start: 04-26-2024 End: 04-26-2024 Patient encounter procedure 04/26/2024 3:30 PM EST Office Visit [facility] [address] [place] [address] Argelia Cheng NP [address] [place] [address] Arrived [facility] Comment on above: Arrived Start: 04-18-2024 End: 04-18-2024 [facility] encounter [facility] Comment on above: Arrived Start: 04-12-2024 Screening for malign ant neoplasm of colon Colorectal Cancer Screening [facility] Comment on above: Postponed from 05/25 (Patient Refused) Start: 03-13-2024 Influenza vaccination Influenza Vacc ine (#1) [facility] Comment on above: Postponed from 11/27 (Patient Refused) Start: 01-17-2024 End: 01-17-2024 Patient encounter procedure 01/17/2024 1:00 PM EDT Office Visit [facility] [address] [place] [id number] Argelia Cheng, [place] [address] [place] [address] [facility] Start: 01-15-2024 Medicare Annual Well ness (AWV) Medicare Annual Wellness (AWV) [facility] Start: 11-28-2023 Influenza vaccination Influenza Vacc ine (#1) [facility] Start: 1961 Pneumococcal Vaccine : 65+ Years (1 of 2 - PCV) Pneumococcal Vaccine: 65+ Years (1 of 2 - PCV) [facility] Start: 1955 Screening for malign ant neoplasm of colon [facility] Renal function 2000 panel - Serum or Plasma [facility] Payers Date Payer Category Payer Medicare [employer]M MEDICARE ADVANTAGE ANTH MEDICARE ADVANTAGE [id number] 2020-Present [address] [place] [address] [id number] 2020 Medicare (Managed Care) [facility] Member Subscriber Plan / Payer (Effective 2020-Present) Name: Chiara Eduardo Relation to Subscriber: Self Name: Chiara Eduardo Payer ID: Not on file Group ID: [id number] Type: Not on file Address: [address] [place] [id number] 1959 Medicare [id number] 1959 Self-pay 1955 Unknown [id number] [id number]. 2.593 1953 Unknown [id number] 2.16.840.1.481592.3.579. 2.593 1953 Unknown [id number] 2.16.840.1.554956.3.579. 2.593 1953 Unknown [id number] 2.16.840.1.682538.3.579. 2.593 1953 Unknown [id number] 2.16.840.1.912118.3.579. 2.593 1953 Unknown [id number] 2.16.840.1.638463.3.579. 2.593 1953 Unknown [id number] 2.16.840.1.288582.3.579. 2.593 1953 Unknown [id number] 2.16.840.1.214063.3.579. 2.593 1953 Unknown [id number] 2.16.840.1.596468.3.579. 2.9 1953 Unknown [id number] 2.16.840.1.316513.3.579. 2.9 1953 Unknown [id number] 2.16.840.1.724184.3.579. 2.9 1953 Unknown [id number] 2.16.840.1.418504.3.579. 2.125 Unknown [id number] 2.16.840.1.426954.3.579. 2.593 Unknown [id number] [id number]. 2.531 Social History Date Type Detail Facility Unknown if ever smoked [facility] [employer] Other Start: 04-12-2023 End: 06-08-2024 Sex Assigned At [facility] Other Start: 11-16-2023 End: 04-18-2024 Tobacco smoking status [facility] Ex-smoker (finding) [facility] Start: 1955 Sex Assigned At Female [facility] Start: 03-29-1985 End: 03-29-2015 History of tobacco use Current smoker [facility] Start: 03-29-1985 End: 03-29-2015 History of tobacco use Cigarette Smoker [facility] Start: 04-12-2023 End: 06-08-2024 Cigarettes smoked current (pack per day) - Reported 1 [facility] Start: 04-12-2023 End: 04-18-2024 Tobacco use and exposure Smokeless tobacco non-user [facility] Start: 04-12-2023 End: 06-08-2024 Alcoholic beverage intake Lifetime non-drinker (finding) [facility] Do you feel stress - tense, restless, nervous, or anxious, or unable to sleep at night because your mind is troubled all the time - these days [OSQ] Only a little [facility] Start: 1955 Sex assigned at Not on file [facility] How often do you nee d to have someone help you when you read instructions, pamphlets, or other written material from your doctor or pharmacy [SILS] Never [facility] Do you belong to any clubs or organizations such as sikhism groups, unions, fraternal or athletic groups, or school groups? No [facility] Are you now , , , , never or living with a partner? [facility] How often to you hav e a drink containing alcohol? Never [facility] (I/We) worried wheth er (my/our) food would run out before (I/we) got money to buy more. Never true [facility] Goals Date Patient Goal Desired Activity /State Clinical Notes 04-07-2022 to 06-15-2024 Nolvia Jimenez NP - 06/08/2024 5:05 PM [place]DE [facility]ILL - 06/08/2024 2:40 PM Juliano Jimenez NP - 06/08/2024 2:40 PM Juliano Jimenez NP - 06/08/2024 7:42 AM EDT Note Date & Type Note Facility 06-15-2024 Note [facility] Cardiology Clinic Note Chief Complaint: Patient here for follow up chest pain and addition of Ranexa per Dr. Mustafa. She thinks she's more SOB now that she's on it. Denies chest pain, palpitations, and lightheadedness/syncope. HPI: Chiara Eduardo is a 69 y.o. female with a history of coronary artery disease, prior stent placement, COPD, nonsustained ventricular tachycardia here due to worsening symptoms. For the past several months, she has noticed worsening shortness of breath. Her access rn adjusted her inhalers but this does not since seem to have helped. She denies chest pain. She does have palpitations with lightheadedness. No orthopnea, no paroxysmal tunnel dyspnea, no lower extremity edema. Pertinently, with her prior percutaneous interventions, she did not have classic chest pain. The first heart attack was manifested by nausea and vomiting and she thought she had food poisoning. Subsequent PCIs were discovered on a workup for arrhythmias. Cardiology ROS: Review of Systems Cardiovascular: Positive for dyspnea on exertion and leg swelling (intermittent). Respiratory: Positive for shortness of breath. All other systems reviewed and are negative. Past Medical History She has a past medical history of Chronic GERD (12/28/2016), Chronic kidney disease, COPD (chronic obstructive pulmonary disease) ([facility] [facility]), Coronary artery disease, Coronary artery disease involving stony river coronary artery of stony river heart without angina pectoris (12/28/2016), Essential hypertension (12/14/2016), Hyperlipidemia, Lower back pain (12/28/2016), Mixed hyperlipidemia (12/14/2016), and Shortness of breath (12/28/2016). Surgical History She has a past surgical history that includes Cardiac catheterization; Coronary stent placement; Cholecystectomy; and Hysterectomy. Social History She reports that she has quit smoking. Her smoking use included cigarettes. She has never used smokeless tobacco. She reports current alcohol use. No history on file for drug use. Family History Family History Problem Relation Name Age of Onset Stroke Mother Kidney disease Father Coronary artery disease Paternal Grandfather Allergies Clopidogrel, Hydrochlorothiazide, Penicillins, Sodium chloride, Sulfa (sulfonamide antibiotics), and Vancomycin Medications Current Outpatient Medications: albuterol 2.5 mg /3 mL (0.083 %) nebulizer solution, INHALE 1 (ONE) vial via NEBULIZER FOUR TIMES DAILY, Disp: , Rfl: albuterol 90 mcg/actuation inhaler, INHALE 2 PUFFS BY MOUTH EVERY 4 HOURS NEEDED for SHORTNESS OF BREATH, Disp: , Rfl: amiodarone (Pacerone) 200 mg tablet, Take 1 tablet (200 mg) by mouth once daily as directed., Disp: 90 tablet, Rfl: 3 aspirin 81 mg EC tablet, Take 1 tablet by mouth in the morning., Disp: , Rfl: atorvastatin (Lipitor) 80 mg tablet, Take 1 tablet (80 mg) by mouth in the morning., Disp: 90 tablet, Rfl: 3 cholecalciferol (Vitamin D-3) 50 MCG (1999 UT) tablet, 1 (one) time each day at the same time., Disp: , Rfl: cyclobenzaprine (Flexeril) 10 mg tablet, Take 10 mg by mouth if needed in the morning, at noon, and at bedtime., Disp: , Rfl: dupilumab (Dupixent Syringe) 100 mg/0.67 mL syringe, Inject under the skin., Disp: , Rfl: ferrous sulfate 324 mg (65 mg iron) EC tablet, TAKE 1 TABLET BY MOUTH WITH BREAKFAST Oral for 30 Days, Disp: , Rfl: fluticasone propion-salmeteroL (Advair Diskus) 250-50 mcg/dose diskus inhaler, INHALE 1 PUFF BY MOUTH TWICE DAILY; rinse mouth after use, Disp: , Rfl: furosemide (Lasix) 20 mg tablet, Take 1 tablet (20 mg) by mouth every other day. Pt taking 20 mgs daily, Disp: 45 tablet, Rfl: 3 ipratropium (Atrovent) 0.02 % nebulizer solution, INHALE 1 (ONE) vial via NEBULIZER FOUR TIMES DAILY, Disp: , Rfl: ipratropium-albuteroL (Duo-Neb) 0.5-2.5 mg/3 mL nebulizer solution, 3 mL 4 times a day., Disp: , Rfl: isosorbide mononitrate ER (Imdur) 30 mg 24 hr tablet, Take 1 tablet (30 mg) by mouth in the morning. Do not crush or chew. (Patient taking differently: Take 60 mg by mouth in the morning. Do not crush or chew.), Disp: 90 tablet, Rfl: 3 magnesium oxide-pyridoxine HCl (Beelith) 362-20 mg tablet, Take 1 tablet by mouth in the morning., Disp: , Rfl: metoprolol succinate XL (Toprol-XL) 50 mg 24 hr tablet, Take 1 tablet (50 mg) by mouth in the morning. Do not crush or chew. (Patient taking differently: Take 50 mg by mouth two times daily. Do not crush or chew.), Disp: 30 tablet, Rfl: 3 metoprolol tartrate (Lopressor) 50 mg tablet, Take 1 tablet (50 mg) by mouth two times daily., Disp: 180 tablet, Rfl: 3 olmesartan (BENIcar) 40 mg tablet, Take 1 tablet (40 mg) by mouth once daily as directed., Disp: 90 tablet, Rfl: 3 omeprazole (PriLOSEC) [address] capsule, take 1 capsule by oral route every day before a meal, Disp: , Rfl: omeprazole OTC (PriLOSEC OTC) 20 mg EC tablet, Take 20 mg by mouth., Disp: , Rfl: prasugrel (Effient) 10 mg table (more content not included)... [facility] 06-08-2024 History of Present illness Narrative Associated Problem(s): Lower back pain Flexeril prn Pt is discontinue the Advair in 4 days and is going trelogy- dr schumacher Images from the original note were not included. Chiara Eduardo is a 69 y.o. female presents with chief complaint of No chief complaint on file. HPI: COPD: sees dr schumacher, inhalers and dupixent Cardiology: sees regularly, does cardiac rehab as well Hypertension This is a chronic problem. The current episode started more than 1 year ago. The problem is unchanged. The problem is controlled. Associated symptoms include peripheral edema and shortness of breath. Pertinent negatives include no blurred vision, chest pain, headaches, neck pain or palpitations. There are no associated agents to hypertension. Risk factors for coronary artery disease include dyslipidemia, obesity, sedentary lifestyle and smoking/tobacco exposure. Past treatments include beta blockers, angiotensin blockers and direct vasodilators. The current treatment provides significant improvement. There are no compliance problems. Hypertensive end-organ damage includes kidney disease and CAD/GA. Identifiable causes of hypertension include chronic renal disease. SUBJECTIVE: MEDICATIONS: Current Outpatient Medications Medication Instructions albuterol HFA 90 mcg/act inhaler 2 puffs, Every 4 hours PRN aspirin (ADULT ASPIRIN REGIMEN) 81 mg, Daily atorvastatin (LIPITOR) 80 mg, Oral, Daily cholecalciferol (VITAMIN D-3) 25 mcg, Oral, Daily cyclobenzaprine (FLEXERIL) 5 mg, Oral, 3 times daily PRN Dupilumab (Dupixent) 300 MG/2ML solution auto-injector as directed Subcutaneous furosemide (LASIX) 20 mg, Oral, Every other day ipratropium-albuterol (Duo-Neb) 0.5-2.5 mg/3 mL nebulizer solution 3 mL, Every 6 hours RT isosorbide mononitrate ER (IMDUR) 60 mg, Daily MAGNESIUM PO 200 mg, Daily RT metoprolol tartrate (LOPRESSOR) 50 mg, 2 times daily olmesartan (BENICAR) 40 mg, Daily omeprazole OTC (PRILOSEC OTC) 20 mg, Daily before breakfast predniSONE (Deltasone) 10 MG tablet ranolazine (RANEXA) 500 mg, 2 times daily Trelegy Ellipta 100-62.5-25 MCG/ACT aerosol powder 1 puff, Every 24 hours ALLERGIES: Allergies Allergen Reactions Hydrochlorothiazide Penicillins Plavix [Clopidogrel] Sodium Chloride Sulfacetamide Vancomycin Hcl [Vancomycin] REVIEW OF SYMPTOMS: Review of Systems Constitutional: Negative for appetite change, chills and fever. HENT: Negative for congestion, ear pain and sore throat. Eyes: Negative for blurred vision, pain, discharge, redness and visual disturbance. Respiratory: Positive for shortness of breath. Negative for cough and wheezing. Cardiovascular: Positive for leg swelling. Negative for chest pain and palpitations. Gastrointestinal: Negative for abdominal pain, blood in stool, constipation, diarrhea, nausea and vomiting. Genitourinary: Negative for difficulty urinating, dysuria and frequency. Musculoskeletal: Positive for back pain. Negative for arthralgias, joint swelling, myalgias and neck pain. Skin: Negative for rash and wound. Neurological: Negative for dizziness, tremors, seizures, syncope and headaches. Psychiatric/Behavioral: Negative for behavioral problems, self-injury and suicidal ideas. The patient is not nervous/anxious. Hematological: Does not bruise/bleed easily. Endocrine: Negative for polydipsia, polyphagia and polyuria. Allergic/Immunologic: Negative for environmental allergies and food allergies. PAST MEDICAL HISTORY Past Medical History: Diagnosis Date Anemia Arthritis Chronic obstructive pulmonary disease (CMS/HCC) Chronic RUQ pain Coronary artery disease (CMS/HCC) Essential hypertension (CMS/HCC) History of tobacco abuse HLD (hyperlipidemia) (CMS/HCC) Kidney disease Multiple pulmonary nodules SIADH (syndrome of inappropriate ADH production) (CMS/HCC) Stroke (CMS/HCC) Past Surgical History: Procedure Laterality Date CARDIAC SURGERY Stent x 2 CHOLECYSTECTOMY HYSTERECTOMY family history includes COPD in her mother; Emphysema in her sister; Heart disease in her father and mother; Hypertension in her father and mother; Stroke in her mother. OBJECTIVE: Visit Vitals BP 144/80 (BP Location: Left arm, Patient Position: Sitting, BP Cuff Size: Large adult) Pulse 72 Temp 97.8 F (Temporal) Resp 19 Wt 199 lb 12.8 oz SpO2 98% BMI 35.39 kg/m Smoking Status Former BSA 2.01 m Physical Exam Vitals and nursing note reviewed. Constitutional: General: She is not in acute distress. Appearance: Normal appearance. She is obese. She is not ill-appearing. HENT: Head: Normocephalic and atraumatic. Right Ear: External ear normal. Left Ear: External ear normal. Nose: Nose normal. Mouth/Throat: Mouth: Mucous membranes are moist. Eyes: Extraocular Movements: Extraocular movements intact. Conjunctiva/sclera: Conjunctivae normal. Neck: Vascular: No carotid bruit. Cardiovascular: Rate and Rhythm: Normal rate and regular rhythm. Pulses: Normal pulses. Heart sounds: Normal heart sounds. Pulmonary: Effort: Pulmonary effort is normal. No respiratory distress. Breath sounds: Normal breath sounds. No wheezing or rhonchi. Abdominal: General: Bowel sounds are normal. There is no distension. Palpations: Abdomen is soft. There is no mass. Tenderness: There is no abdominal tenderness. Musculoskeletal: General: Normal range of motion. Cervical back: Normal range of motion and neck supple. Right lower leg: Edema present. Left lower leg: Edema present. Comments: Pedal bilat Lymphadenopathy: Cervical: No cervical adenopathy. Skin: General: Skin is warm and dry. Capillary Refill: Capillary refill takes 2 to 3 seconds. Findings: No rash. Neurological: General: No focal deficit present. Mental Status: She is alert and oriented to person, place, and time. Psychiatric: Mood and Affect: Mood normal. Behavior: Behavior normal. Thought Content: Thought content normal. Judgment: Judgment normal. ASSESSMENT AND PLAN: No follow-ups on file. Problem List Items Addressed This Visit Chronic obstructive pulmonary disease, unspecified (CMS/HCC) Current meds: albuterol, trelegy, Under the care of pulmonology [facility] Coronary artery disease involving stony river coronary artery of stony river heart without angina pectoris (CMS/HCC) (Chronic) Under the care of cardiology Current meds: statin, asa, imdur, b fernando, arb, diuretic, and ranexa Aggressive risk factor modification Hypomagnesemia Takes magnesium supplement Check labs yearly and prn dose changes or changes in symtpoms Lower back pain Flexeril prn Relevant Medications cyclobenzaprine (Flexeril) 10 MG tablet Morbid (severe) obesity due to excess calories (CMS/HCC) Discussed with patient their BMI (actual, verses recommended). We have also discussed lifestyle modifications: attempts to perform physical activity as chronic conditions allow, also to monitor dietary intake: increasing protein/fruits/veggies and lowering carb intake (unless contraindicated). Limit sodas, juices, and sugary drinks. Essential (primary) hypertension (CMS/HCC) - Primary Please check blood pressure daily and record DASH diet Limit caffeine Take medication as directed Contact office if chest pain, pressure, dizziness, shortness of breath, swelling legs Recommend slow position changes Current meds: arb, b fernando, nitrate Body mass index (BMI) 35.0-35.9, adult Chronic kidney disease, stage 3b (HCC) (CMS/HCC) Goal to keep blood pressure well control Avoid nephrotoxic drugs if possible Continue w nephrology Mixed hyperlipidemia (CMS/HCC) Statin therapy Check labs yearly and prn dose changes Associated Problem(s): Mixed hyperlipidemia (CMS/HCC) Statin therapy Check labs yearly and prn dose changes Associated Problem(s): Hypomagnesemia Takes magnesium supplement Check labs yearly and prn dose changes or changes in symtpoms Associated Problem(s): Morbid (severe) obesity due to excess calories (CMS/HCC) Discussed with patient their BMI (actual, verses recommended). We have also discussed lifestyle modifications: attempts to perform physical activity as chronic conditions allow, also to monitor dietary intake: increasing protein/fruits/veggies and lowering carb intake (unless contraindicated). Limit sodas, juices, and sugary drinks. Associated Problem(s): Chronic kidney disease, stage 3b (HCC) (CMS/HCC) Goal to keep blood pressure well control Avoid nephrotoxic drugs if possible Continue w nephrology Associated Problem(s): Essential (primary) hypertension (CMS/HCC) Please check blood pressure daily and record DASH diet Limit caffeine Take medication as directed Contact office if chest pain, pressure, dizziness, shortness of breath, swelling legs Recommend slow position changes Current meds: arb, b fernando, nitrate Associated Problem(s): Coronary artery disease involving st[place] coronary artery of [place] heart without angina pectoris (CMS/HCC) Under the care of cardiology Current meds: statin, asa, imdur, b fernando, arb, diuretic, and ranexa Aggressive risk factor modification Associated Problem(s): Chronic obstructive pulmonary disease, unspecified (CMS/HCC) Current meds: albuterol, trelegy, Under the care of pulmonology [facility] documented in this encounter [facility] 06-08-2024 Evaluation note Diagnosis Stage 3a chronic kidney disease (HCC) (CMS/HCC)- Primary Other hyperlipidemia (CMS/HCC) Coronary artery disease involving st[place] river coronary artery of [place] heart without angina pectoris (CMS/HCC) Irregular heartbeat- Primary Unspecified cardiac dysrhythmia Essential (primary) hypertension (CMS/HCC)- Primary Unspecified essential hypertension Morbid (severe) obesity due to excess calories (CMS/HCC) Body mass index (BMI) 35.0-35.9, adult Chronic obstructive pulmonary disease, unspecified (CMS/HCC) Chronic kidney disease, stage 3b (HCC) (CMS/HCC) Coronary artery disease involving stony river coronary artery of st[place] heart without angina pectoris (CMS/HCC) Hypomagnesemia Disorders of magnesium metabolism Mixed hyperlipidemia (CMS/HCC) Mixed hyperlipidemia Chronic low back pain, unspecified back pain laterality, unspecified whether sciatica present [facility] [id number] NoteUT Electrophysiology Consult Note Reason for visit: PVC induced NSVT, on amiodarone 05/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 She was discharged with 3 day Holter monitor. Metoprolol was increased to twice daily. She endorsed occ CP. She is on Imdur 60 every day. Review of the Holter monitor that was placed for 3 days starting from 04/19-04/22/2024 reveals the presence of PACs as well as occasional PVCs with 1 episode of nonsustained atrial tachycardia 4 beats also noted on 04/21/2024 at 12:20 AM. Her symptoms seems to correlate with PVC. No sustained episodes of any arrhythmia noted and there was significant amount of artifact noted due to poor contact. PVC burden was noted to be 12%. 01/04/24 Pt is here for a three [...] order to feel better Prior HPI: Chiara Eduardo is a 68 y.o. year old with past medical history of CAD with stable recent cath 10/30/22 and hx of x2 stents to RCA in 2001 and 06/2022, hypertension, anemia, dyslipidemia, COPD, chronic anemia, obesity, migraine headaches, longstanding tobacco use history but has quit, frequent PVCs. She is currently on dual antiplatelet therapy with aspirin and effient. She was recently seen at [facility] as a transfer from [facility] for complaints of symptomatic wide-complex tachycardia [...] Coronary artery disease Coronary artery disease involving stony river coronary artery of [place] heart without angina pectoris 12/28/2016 Essential hypertension 12/14/2016 Hyperlipidemia Lower back pain 12/28/2016 Mixed hyperlipidemia 12/14/2016 Shortness of breath 12/28/2016 PSH: Past Surgical History: Procedure Laterality Date CARDIAC CATHETERIZATION CHOLECYSTECTOMY CORONARY STENT PLACEMENT HYSTERECTOMY SH: Social Determinants of Health Tobacco Use: Medium Risk (04/26/2024) Received from [facility] Patient History Smoking Tobacco Use: Former Smokeless Tobacco Use: Never Passive Exposure: Not on file Alcohol Use: Not At Risk (01/14/2019) Re[facility] from [facility] Frequency of Alcohol Consumption: Monthly or less Average Number of Drinks: 1 or 2 Frequency of Binge Drinking: Never Financial Resource Strain: Low Risk (10/26/2022) Overall [employer] (more content not included)...[facility]01-29-2025 History of Present illness Narrative* Argelia Cheng NP - 04/26/2024 3:41 PM ESTAssociated Problem(s): Essential hypertension (CMS/HCC) Was seen at hospital overnight 04/18/-04/19 Pt was treated for hypertensive emergency. Metoprolol increased to 50mg BID and Imdur was increased to 60mg Daily. Pt reports her BP at home has been labile and not consistent. BP in office today is TOO HIGH 18/84. Currently taking Olmesartan 40mg, Metoprolol 50mg BID Imdur, 60mg Daily. Furosemide 20mg every other day. Will increase Lasix to 20mg Daily. Denies chest pain, shortness of breath, dizziness, swelling in extremities. Pt sees Cardiology 05/23/2024. Given BP log, advised pt to record BP and bring log and to call office in 2 weeks with BP readings. * Argelia Cheng NP - 04/26/2024 3:30 PM EST Images from the original note were not included. Subjective Patient ID: Chiara Eduardo is a 68 y.o. female who presents for Hospital Follow-up. HPI Was seen at hospital overnight 04/18/-04/19 Pt was treated for hypertensive emergency. Metoprolol increased to 50mg BID and Imdur was increased to 60mg Daily. Pt reports her BP at home has been labile and not consistent. BP in office today is TOO HIGH 18/84. Currently taking Olmesartan 40mg, Metoprolol 50mg BID Imdur, 60mg Daily. Furosemide 20mg every other day. Will increase Lasix to 20mg Daily. Denies chest pain, shortness of breath, dizziness, swelling in extremities. Pt sees Cardiology 05/23/2024. Given BP log, advised pt to record BP and bring log and to call office in 2 weeks with BP readings. Review of Systems Constitutional: Negative for activity [...] polydipsia, polyphagia and polyuria. Objective Physical Exam Constitutional: Appearance: Normal appearance. HENT: Head: Normocephalic. Right Ear: External ear normal. Left Ear: External ear normal. Nose: Nose normal. Mouth/Throat: Mouth: Mucous membranes are moist. Pharynx: Oropharynx is clear. Eyes: Pupils: Pupils are equal, round, and reactive to light. Cardiovascular: Rate and Rhythm: Normal rate and regular rhythm. Pulses: Normal pulses. Pulmonary: Effort: Pulmonary effort is normal. Breath sounds: Normal breath sounds. Abdominal: General: Abdomen is flat. Bowel sounds are normal. Palpations: Abdomen is soft. Musculoskeletal: General: Normal range of motion. Cervical back: Normal range of motion. Skin: General: Skin is warm. Capillary Refill: Capillary refill takes less than 2 seconds. Neurological: Mental Status: She is alert and oriented to person, place, and time. Psychiatric: Mood and Affect: Mood normal. Behavior: Behavior normal. Assessment/Plan Problem List Items Addressed This Visit Essential hypertension (CMS/HCC) - Primary Was seen at hospital overnight 04/18/-04/19 Pt was treated for hypertensive emergency. Metoprolol increased to 50mg BID and Imdur was increased to 60mg Daily. Pt reports her BP at home has been labile and not consistent. BP in office today is TOO HIGH 18/84. Currently taking Olmesartan 40mg, Metoprolol 50mg BID Imdur, 60mg Daily. Furosemide 20mg every other day. Will increase Lasix to 20mg Daily. Denies chest pain, shortness of breath, dizziness, swelling in extremities. Pt sees Cardiology 05/23/2024. Given BP log, advised pt to record BP and bring log and to call office in 2 weeks with BP readings. documented in this encounterResearch [facility] Center-[facility] [id number] Instructions* Patient Instructions* Argelia Cheng NP - 04/26/2024 3:30 PM EST Your blood pressure is TOO HIGH in the office today. Check your blood pressure at home ONCE PER DAY, preferably in the afternoon. Goal <130/90. Record results in blood pressure log. Call my office in 2 weeks to report BP readings. Also, bring log with you to your next visit. If your BP is consistently above 180 SBP CALL MY OFFICE! Chest pain, dizziness, shortness of breath, numbness/tingling GO TO ER!!! documented in this encounterResearch Medical Center-Brookside [id number] Evaluation note* Diagnosis Stage 3a chronic kidney disease (HCC) (CMS/HCC)- Primary Other hyperlipidemia (CMS/HCC) Coronary artery disease involving [place] coronary artery of [place] heart without angina pectoris (CMS/HCC) Irregular heartbeat- Primary Unspecified cardiac dysrhythmia Essential hypertension (CMS/HCC)- Primary Unspecified essential hypertension documented in this encounter [facility] [id number] History of Present illness Narrative* Argelia Cheng NP - 04/18/2024 2:57 PM ESTAssociated Problem(s): Irregular heartbeat Intermittent shortness of breath, swelling in legs, heart skipping beats, fatigue. Irregular rhythm in office today. Advised pt to report to ER for further eval and treatment * Argelia Cheng NP - 04/18/2024 2:00 PM EST Images from the original note were not included. Subjective Patient ID: Chiara Eduardo is a 68 y.o. female who presents for Follow-up. HPI Specialists: Cardiology- [facility] Nephrology- Dr. [place] Pulmonology- Dr. Schumacher Intermittent shortness of breath, swelling in legs, heart skipping beats, fatigue. Irregular rhythm in office today. Advised pt to report to ER for further eval and treatment Review of Systems Constitutional: Positive for fatigue. Negative for activity change, appetite change, chills, fever,night sweats and unexpected weight change. HENT: Negative [...] Negative for dizziness, tremors, syncope, weakness, light- headedness, numbness and headaches. Psychiatric/Behavioral: Negative for sleep [...] further eval and treatment documented in this encounterResearch Medical Center-Brookside [id number] Evaluation note* Diagnosis Stage 3a chronic kidney disease (HCC) (CMS/HCC)- Primary Other hyperlipidemia (CMS/HCC) Coronary artery disease involving [place] coronary artery of [place] heart without angina pectoris (CMS/HCC) Irregular heartbeat- Primary Unspecified cardiac dysrhythmia documented in this encounter [facility] [id number] Evaluation note* Diagnosis Stage 3a chronic kidney disease (HCC) (CMS/HCC)- Primary Other hyperlipidemia (CMS/HCC) Coronary artery disease involving [place] coronary artery of [place] heart without angina pectoris (CMS/HCC) Stage 3a chronic kidney disease (HCC) (CMS/HCC)- Primary documented in this encounter [facility] [id number] History of Present illness Narrative* Argelia Cheng NP - 01/17/2024 1:00 PM EDT Images from the original note were not included. Subjective : Chief Complaint: Chiara Eduardo is an 68 y.o. female here for an annual wellness visit. Specialists: Cardiology- [facility], [place] Pulmonology- Dr. Schumacher Nephrology- Dr. [...] were not included. Subjective : Chief Complaint: Chiara Eduardo is an 68 y.o. female here for [...] on January 17, 2024 documented in this encounterResearch Medical Center-Brookside [id number] NoteUT Electrophysiology Consult Note Reason for visit: [...] order to feel better Prior HPI: Chiara Eduardo is a 68 y.o. year old with past medical history of CAD with stable recent cath 10/30/22 and hx of x2 stents to RCA in 2001 and 06/2022, hypertension, anemia, dyslipidemia, COPD, chronic anemia, obesity, migraine headaches, longstanding tobacco use history but has quit, frequent PVCs. She is currently on dual antiplatelet therapy with aspirin and effient. She was recently seen at [facility] as a transfer from [facility] for complaints of symptomatic wide-complex tachycardia [...] kidney disease COPD (chronic obstructive pulmonary disease) ([facility]) Coronary artery disease Coronary artery disease involving [place] coronary artery of [place] heart without angina pectoris 12/28/2016 Essential hypertension [...] Intimate Partner Violence: Not At Risk (10/26/2022) [place] Safety & Environment Fear of Current or [...] Places Lived in the (more content not included)...[facility]07-16-2024 NoteUT Electrophysiology Consult Note Reason for [...] order to feel better Prior HPI: Chiara Eduardo is a 68 y.o. year old with past medical history of CAD with stable recent cath 10/30/22 and hx of x2 stents to RCA in 2001 and 06/2022, hypertension, anemia, dyslipidemia, COPD, chronic anemia, obesity, migraine headaches, longstanding tobacco use history but has quit, frequent PVCs. She is currently on dual antiplatelet therapy with aspirin and effient. She was recently seen at [facility] as a transfer from [facility] for complaints of symptomatic wide-complex tachycardia [...] kidney disease COPD (chronic obstructive pulmonary disease) ([facility]) Coronary artery disease Coronary artery disease involving [place] coronary artery of [place] heart without angina pectoris 12/28/2016 Essential hypertension [...] Intimate Partner Violence: Not At Risk (10/26/2022) [place] Safety & [place] Fear of Current or [...] %) nebulizer solution INHA (more content not included)...[facility]04-02-2024 NoteUT Electrophysiology Consult Note Reason for [...] order to feel better Prior HPI: Chiara Eduardo is a 68 y.o. year old with past medical history of CAD with stable recent cath 10/30/22 and hx of x2 stents to RCA in 2001 and 06/2022, hypertension, anemia, dyslipidemia, COPD, chronic anemia, obesity, migraine headaches, longstanding tobacco use history but has quit, frequent PVCs. She is currently on dual antiplatelet therapy with aspirin and effient. She was recently seen at [facility] as a transfer from [facility] for complaints of symptomatic wide-complex tachycardia [...] kidney disease COPD (chronic obstructive pulmonary disease) ([facility]) Coronary artery disease Coronary artery disease involving [place] coronary artery of [place] heart without angina pectoris 12/28/2016 Essential hypertension [...] by mouth in t (more content not included)...[facility]12-12-2023 Evaluation note* Encounter Date Diagnosis Assessment [...] deficiency (ICD-10 - E55.9) continue VD supplement [employer] Other 01-10-2023 Evaluation note* Encounter Date Diagnosis Assessment Notes [...] I will recheck sodium level next visit [employer] Other Evaluation note* Diagnosis Onset Date Resolution Status Anemia acute Hyperkalemia acute Hypertensive nephropathy acu te Hyperuricemia acute Hypomagnesemia acute Hyponatremia acute Stage 3b chronic kidney disease acute Vitamin D deficiency acute [facility] Work Phone: Evaluation note* Diagnosis Stage 3a chronic kidney disease (HCC) (CMS/HCC)- Primary Other hyperlipidemia (CMS/HCC) Coronary artery disease involving [place] coronary artery of [place] heart without angina pectoris (CMS/HCC) Routine general medical examination at health care facility- Primary Routine general medical examination at a health care facility documented in this encounter [facility] HealthcareEvaluation note* Diagnosis Stage 3a chronic kidney disease (HCC) (CMS/HCC)- Primary Other hyperlipidemia (CMS/HCC) Coronary artery disease involving [place] coronary artery of [place] heart without angina pectoris (CMS/HCC) Other hyperlipidemia (CMS/HCC) documented in this encounter [facility] HealthcareEvaluation note* Diagnosis Stage 3a chronic kidney disease (HCC) (CMS/HCC)- Primary Other hyperlipidemia (CMS/HCC) Coronary artery disease involving [place] coronary artery of [place] heart without angina pectoris (CMS/HCC) Irregular heartbeat- Primary Unspecified cardiac dysrhythmia Essential hypertension (CMS/HCC)- Primary Unspecified essential hypertension documented in this encounter [facility] CampusHistory general Narrative - Reported* Type Description Date Medical History CHRONIC OBSTRUCTIVE PULMONARY DI SEASE Medical History HYPERTENSION Medical History GERD Medical History HYPERLIPIDEMIA Medical History HEART ATTACK Surgical History HYSTERECTOMY Surgical History GALL BLADDER Surgical History TUBES TIED Surgical History 2 HEART STENTS Hospitalization History SEE ABOVE [employer] Other History general Narrative - Reported* Type [...] History SEE ABOVE Hospitalization History V-TACH 3 [employer] Other Summary Purpose Family History No Family [...] Comments Med Refill 04/03/2024 Reason Comments Follow-up Reason Comments Hospital Follow-up INFORMATION SOURCE (unrecogn ized section and content) DATE CREATED AUTHOR 08/07/2022 [facility] DATE CREATED AUTHOR AUTHOR'S ORGANIZ ATION 12/22/2023 [facility] DATE CREATED AUTHOR AUTHOR'S ORGANIZ ATION 06/11/2024 [facility] EPIC DATE CREATED AUTHOR AUTHOR'S ORGANIZ ATION 06/17/2024 [facility] Care Teams (unrecognized sec tion and content) [...] Start: November 282023 End: December 20, 2023 Electronic Induction Hardener Relationship Specialty Start Date End Date Shaikh Larios MD [address] [place] [address] PCP - Alexx FLOWER 04/29/23 Trace Kelly MD [address] [place] [address] PCP - General Family Medicine 11/10/23 Argelia Cheng NP [address] [place] [address] Nurse Practitioner Family Medicine 11/10/23 Electronic Induction Hardener Relationship Specialty Start Date End Date Shaikh Larios MD [address] [place] [address] PCP Ana Lilia Coffey MA 04/29/23 Trace Kelly MD [address] [place] [address] PCP - General Family Medicine 01/17/24 Argelia Cheng NP [address] [place] [address] Nurse Practitioner Family Medicine 11/10/23 Electronic Induction Hardener Relationship Specialty Start Date End Date Shaikh Larios MD [address] [place] [address] PCP - Alexx FLOWER 04/29/23 Trace Kelly MD [address] [place] [address] PCP - General Family Medicine 01/17/24 Argelia Cheng NP [address] [place] [address] Nurse Practitioner Family Medicine 11/10/23 Electronic Induction Hardener Relationship Specialty Start Date End Date Shaikh Larios MD [address] [place] [address] PCP - Alexx FLOWER 04/29/23 Trace Kelly MD [address] [place] [address] PCP - General Family Medicine 01/17/24 Argelia Cheng, TAPE DECK INSTALLER [address] [place] [address] Nurse Practitioner Family Medicine 11/10/23 Electronic Induction Hardener Relationship Specialty Start Date End Date Shaikh Larios MD [address] [place] [address] PCP Ana Lilia Coffey MA 04/29/23 Trace Kelly MD [address] [place] [address] PCP - General Family Medicine 11/10/23 Argelia Cheng NP [address] [place] [address] Nurse Practitioner Family Medicine 11/10/23 Electronic Induction Hardener Relationship Specialty Start Date End Date Shaikh Larios MD [address] [place] [address] PCP - Alexx FLOWER 04/29/23 Trace Kelly MD [address] [place] [address] PCP - General Family Medicine 01/17/24 Argelia Cheng NP [address] [place] [address] Nurse Practitioner Family Medicine 11/10/23 Electronic Induction Hardener Relationship Specialty Start Date End Date Shaikh Larios MD [address] [place] [address] PCP Ana Lilia Coffey MA 04/29/23 Trace Kelly MD [address] [place] [address] PCP - General Family Medicine 01/17/24 Argelia Cheng NP [address] [place] [address] Nurse Practitioner Family Medicine 11/10/23 Electronic Induction Hardener Relationship Specialty Start Date End Date Shaikh Larios MD [address] [place] [address] PCP - Alexx FLOWER 04/29/23 Trace Kelly MD [address] [place] [address] PCP - General Family Medicine 01/17/24 Argelia Cheng NP [address] [place] [address] Nurse Practitioner Family Medicine 11/10/23 Electronic Induction Hardener Relationship Specialty Start Date End Date Shaikh Larios MD [address] [place] [address] PCP - Alexx FLOWER 04/29/23 Trace Kelly MD [address] [place] [address] PCP - General Family Medicine 01/17/24 Argelia Cheng NP [address] [place] [address] Nurse Practitioner Family Medicine 11/10/23 Electronic Induction Hardener Relationship Specialty Start Date End Date Trace Kelly MD [address] [place] [address] PCP - General Family Medicine 01/17/24 Argelia Cheng NP PCP Ana Lilia Coffey MA 03/29/24 Argelia Cheng NP Nurse Practitioner Family Medicine 11/10/23 Electronic Induction Hardener Relationship Specialty Start Date End Date Trace Kelly MD [address] [place] [address] PCP - General Family Medicine 01/17/24 Argelia Cheng NP PCP - Alexx ND 03/29/24 Argelia Cheng NP 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 [employer] provides no warranty or guarantee of the accuracy or completeness of information in this document.
[2024-06-26 11:45] LABS: Basophils Absolute Auto 0.1 10^3/uL (0.0-0.1); Basophils Percent Auto 0.7 % (0.2-2.0); Eosinophils Absolute Auto 0.1 10^3/uL (0.0-0.7); Eosinophils Percent Auto 0.9 % (0.9-7.0); Hematocrit 36.4 % (36.0-48.0); Immature Granulocytes Abs Auto 0.04 10^3/uL (0.00-0.03); Immature Granulocytes Pct Auto 0.4 % (0.0-0.5); Lymphocytes Absolute Auto 1.2 10^3/uL (1.2-3.8); Lymphocytes Percent Auto 12.3 % (20.5-60.0); Mean Corpuscular Hemoglobin 31.8 pg (26.7-34.0); Mean Corpuscular Volume 96.6 fL (81.0-99.0); Mean Platelet Volume 8.8 fL (9.5-13.5); Monocytes Absolute Auto 0.7 10^3/uL (0.3-0.8); Monocytes Percent Auto 6.6 % (1.7-12.0); Neutrophils Percent Auto 79.1 % (43.0-75.0); Platelet Count 290 10^3/uL (150-450); Red Blood Count 3.77 10^6/uL (4.20-5.40); Red Cell Distribution Width 15.5 % (11.0-15.0); White Blood Count 10.1 10^3/uL (4.0-11.0)
[2024-06-26 12:00] LABS: Anion Gap 13.6; BUN Creatinine Ratio 17.2; Calcium 8.9 mg/dL (8.5-10.1); Carbon Dioxide 29.1 mmol/L (21.0-32.0); Chloride 99 mmol/L (98-107); Estimated GFR (African America 47 (>=60 mL/min/1.73m^2); Estimated GFR (Non-African Ame 39 (>=60 mL/min/1.73m^2); Glucose 96 mg/dL (74-106); Potassium 4.7 mmol/L (3.5-5.1); Sodium 137 mmol/L (136-145)
== END 2024-06-26 11:24 | disposition home or self-care (01) ==
LOC: LAB 11:23
PROVIDERS: PCP Nurse Practitioner; Visit Provider Internal Medicine Interventional Cardiology
DX: Z01.812 Encounter for preprocedural laboratory examination (principal); Z01.818 Encounter for other preprocedural examination
CPT/HCPCS: 36415; 80048; 85025

== ENCOUNTER 2024-07-17 11:26 | Outpatient (OUT) | payer MEDICARE, SELFPAY ==
[2024-07-17 12:02] LABS: Hemoglobin 12.8 g/dL (12.0-16.0); Mean Corpuscular HGB Conc 32.8 g/dL (29.9-35.2); Mean Corpuscular Volume 97.5 fL (81.0-99.0); Mean Platelet Volume 9.5 fL (9.5-13.5); Platelet Count 273 10^3/uL (150-450); Red Cell Distribution Width 14.9 % (11.0-15.0); White Blood Count 9.1 10^3/uL (4.0-11.0)
[2024-07-17 12:07] LABS: Creatinine Urine Random 68.16 mg/dL (20.00-300.00); Protein Creatinine Ratio Urine 0.37; Total Protein Urine Random 25.2 mg/dL (<=11.9)
[2024-07-17 14:21] LABS: Albumin Level 3.4 g/dL (3.4-5.0); Anion Gap 13.7; BUN Creatinine Ratio 13.9; Calcium 8.8 mg/dL (8.5-10.1); Carbon Dioxide 27.2 mmol/L (21.0-32.0); Chloride 99 mmol/L (98-107); Estimated GFR (African America 43 (>=60 mL/min/1.73m^2); Estimated GFR (Non-African Ame 36 (>=60 mL/min/1.73m^2); Glucose 105 mg/dL (74-106); Magnesium 2.1 mg/dL (1.8-2.4); Phosphorus 3.2 mg/dL (2.6-4.7); Potassium 4.9 mmol/L (3.5-5.1); Sodium 135 mmol/L (136-145)
[2024-07-18 12:08] LABS: PTH, Intact 68 pg/mL (15-65)
== END 2024-07-17 11:27 | disposition home or self-care (01) ==
LOC: LAB 11:28
PROVIDERS: PCP Nurse Practitioner; Visit Provider Internal Medicine Nephrology
DX: E55.9 Vitamin D deficiency, unspecified (principal); D64.9 Anemia, unspecified; E79.0 Hyperuricemia without signs of inflammatory arthritis and tophaceous disease; E87.1 Hypo-osmolality and hyponatremia; E87.5 Hyperkalemia
CPT/HCPCS: 36415; 80069; 82570; 83735; 83970; 84156; 84550; 85027

== ENCOUNTER 2024-07-25 10:58 | Outpatient (OUT) | payer MEDICARE, SELFPAY ==
[2024-07-25 11:29] LABS: Hematocrit 37.9 % (36.0-48.0); Hemoglobin 12.4 g/dL (12.0-16.0); Mean Corpuscular HGB Conc 32.7 g/dL (29.9-35.2); Mean Corpuscular Hemoglobin 31.3 pg (26.7-34.0); Mean Corpuscular Volume 95.7 fL (81.0-99.0); Mean Platelet Volume 9.4 fL (9.5-13.5); Platelet Count 322 10^3/uL (150-450); Red Blood Count 3.96 10^6/uL (4.20-5.40); Red Cell Distribution Width 14.5 % (11.0-15.0); White Blood Count 23.5 10^3/uL (4.0-11.0)
[2024-07-25 11:36] LABS: Anion Gap 11.2; BUN Creatinine Ratio 18.2; Calcium 8.9 mg/dL (8.5-10.1); Carbon Dioxide 28.4 mmol/L (21.0-32.0); Chloride 100 mmol/L (98-107); Estimated GFR (African America 37 (>=60 mL/min/1.73m^2); Estimated GFR (Non-African Ame 31 (>=60 mL/min/1.73m^2); Glucose 122 mg/dL (74-106); Potassium 4.6 mmol/L (3.5-5.1); Sodium 135 mmol/L (136-145)
[2024-07-25 12:01] LABS: Segmented Neut Absolute Manual 20.44 10^3/uL (1.4-6.5)
[2024-07-25 12:02] LABS: Basophils Abs Manual 0.47 10^3/uL (0.00-0.10); Lymphocytes Absolute Manual 2.11 10^3/uL (1.20-3.80); Monocytes Absolute Manual 0.47 10^3/uL (0.30-0.80)
== END 2024-07-25 10:59 | disposition home or self-care (01) ==
LOC: LAB 11:05
PROVIDERS: PCP Nurse Practitioner; Visit Provider Internal Medicine Interventional Cardiology
DX: I11.9 Hypertensive heart disease without heart failure (principal); I50.32 Chronic diastolic (congestive) heart failure
CPT/HCPCS: 36415; 80048; 85007; 85027

== ENCOUNTER 2024-07-26 11:35 | Outpatient (OUT) | payer MEDICARE, SELFPAY ==
[2024-07-26 12:11] LABS: Basophils Absolute Auto 0.1 10^3/uL (0.0-0.1); Basophils Percent Auto 0.5 % (0.2-2.0); Eosinophils Percent Auto 0.3 % (0.9-7.0); Hematocrit 37.3 % (36.0-48.0); Hemoglobin 12.3 g/dL (12.0-16.0); Immature Granulocytes Abs Auto 0.04 10^3/uL (0.00-0.03); Immature Granulocytes Pct Auto 0.3 % (0.0-0.5); Lymphocytes Absolute Auto 1.8 10^3/uL (1.2-3.8); Lymphocytes Percent Auto 15.7 % (20.5-60.0); Mean Corpuscular Hemoglobin 32.1 pg (26.7-34.0); Mean Corpuscular Volume 97.4 fL (81.0-99.0); Mean Platelet Volume 9.3 fL (9.5-13.5); Monocytes Absolute Auto 0.8 10^3/uL (0.3-0.8); Monocytes Percent Auto 6.9 % (1.7-12.0); Neutrophils Absolute Auto 8.8 10^3/uL (1.4-6.5); Neutrophils Percent Auto 76.3 % (43.0-75.0); Platelet Count 308 10^3/uL (150-450); Red Blood Count 3.83 10^6/uL (4.20-5.40); Red Cell Distribution Width 14.6 % (11.0-15.0); White Blood Count 11.5 10^3/uL (4.0-11.0)
[2024-07-26 12:12] LABS: Bilirubin Urine NEGATIVE (NEGATIVE); Blood Urine NEGATIVE (NEGATIVE); Clarity Urine CLEAR (CLEAR); Color Urine LT. YELLOW (YELLOW); Glucose Urine UA 500 mg/dL (NEGATIVE); Ketones Urine NEGATIVE (NEGATIVE); Leukocyte Esterase Urine NEGATIVE (NEGATIVE); Nitrite Urine NEGATIVE (NEGATIVE); Protein Urine NEGATIVE (NEG/TRACE); Specific Gravity Urine <=1.005 (1.005-1.025); Urobilinogen Urine 0.2 EU/dL (0.2-1.0); pH Urine 6.5 (5.0-9.0)
[2024-07-26 12:14] LABS: Erythrocyte Sedimentation Rate 46 mm/hr (<=30)
[2024-07-26 12:17] LABS: Urine Microscopic Indicated NO
[2024-07-26 12:29] LABS: Alanine Aminotransferase 17 U/L (14-59); Albumin Globulin Ratio 0.8; Albumin Level 3.2 g/dL (3.4-5.0); Alkaline Phosphatase 77 U/L (46-116); Anion Gap 12.9; Aspartate Amino Transferase 14 U/L (15-37); BUN Creatinine Ratio 15.3; Bilirubin Total 0.3 mg/dL (0.2-1.0); C Reactive Protein 10.26 mg/dL (<=0.50); Calcium 8.8 mg/dL (8.5-10.1); Carbon Dioxide 28.2 mmol/L (21.0-32.0); Chloride 101 mmol/L (98-107); Estimated GFR (African America 39 (>=60 mL/min/1.73m^2); Estimated GFR (Non-African Ame 32 (>=60 mL/min/1.73m^2); Globulin 3.8 g/dL; Glucose 100 mg/dL (74-106); Potassium 4.1 mmol/L (3.5-5.1); Sodium 138 mmol/L (136-145)
== END 2024-07-26 11:36 | disposition home or self-care (01) ==
PROVIDERS: PCP Nurse Practitioner; Visit Provider Nurse Practitioner
DX: D72.829 Elevated white blood cell count, unspecified (principal); R82.998 Other abnormal findings in urine
CPT/HCPCS: 36415; 80053; 81003; 85025; 85652; 86140; 87086

== ENCOUNTER 2024-08-02 11:11 | Outpatient (OUT) | payer MEDICARE, SELFPAY ==
[2024-08-02 11:34] LABS: Basophils Absolute Auto 0.1 10^3/uL (0.0-0.1); Basophils Percent Auto 0.8 % (0.2-2.0); Eosinophils Absolute Auto 0.1 10^3/uL (0.0-0.7); Eosinophils Percent Auto 0.9 % (0.9-7.0); Hematocrit 38.4 % (36.0-48.0); Hemoglobin 12.4 g/dL (12.0-16.0); Immature Granulocytes Abs Auto 0.07 10^3/uL (0.00-0.03); Immature Granulocytes Pct Auto 0.7 % (0.0-0.5); Lymphocytes Absolute Auto 2.1 10^3/uL (1.2-3.8); Lymphocytes Percent Auto 19.2 % (20.5-60.0); Mean Corpuscular HGB Conc 32.3 g/dL (29.9-35.2); Mean Corpuscular Hemoglobin 31.6 pg (26.7-34.0); Mean Corpuscular Volume 97.7 fL (81.0-99.0); Monocytes Absolute Auto 0.9 10^3/uL (0.3-0.8); Monocytes Percent Auto 8.2 % (1.7-12.0); Neutrophils Absolute Auto 7.5 10^3/uL (1.4-6.5); Neutrophils Percent Auto 70.2 % (43.0-75.0); Platelet Count 370 10^3/uL (150-450); Red Blood Count 3.93 10^6/uL (4.20-5.40); Red Cell Distribution Width 14.1 % (11.0-15.0); White Blood Count 10.7 10^3/uL (4.0-11.0)
[2024-08-02 12:05] LABS: C Reactive Protein <0.50 mg/dL (<=0.50)
== END 2024-08-02 11:12 | disposition home or self-care (01) ==
LOC: LAB 11:14
PROVIDERS: PCP Nurse Practitioner; Visit Provider Nurse Practitioner
DX: D72.829 Elevated white blood cell count, unspecified (principal); R79.82 Elevated C-reactive protein (CRP)
CPT/HCPCS: 36415; 85025; 86140

== ENCOUNTER 2024-09-03 04:32 | Emergency (ER) | payer MEDICARE, SELFPAY ==
--- OUTSIDE RECORDS SUMMARY | 2024-05-23 06:30 | XMS_ITS ---
Author Organization [facility] in [place] Address [address] [place] [address] Care Team Providers Care Tire Inspector Name Role Phone Nolvia Jimenez CNP Primary Care Provider Unavail able Juliensa Brien Unavailable [phone] Allergies Allergen (clinical drug ingredient) Drug/Non Drug Allergy documented on EMR Reaction Allergy Type Onset Date Status clopidogrel Plavix Unknown Drug Allergy Active hydrochlorothiazide Hydrochlorothiazide shortnes s of breath Drug Allergy Active Substance with sulfonamide structure and antibacterial mechanism of action (substance) Sulfa Antibiotics Unknown Drug Allergy Active Penicillin rash Drug Allergy Active vancomycin Vancomycin Unknown Drug Allergy Active REASON FOR VISIT Dupixent Injection Medications Medication SIG (Take, Route, Frequency, Duration) Notes Start Date End Date Status Olmesartan Medoxomil 40 MG Oral for 90 Days Active Omeprazole 20 MG 1 capsule 30 minutes before morning meal Orally Once a day Active Prasugrel HCl 10 MG TAKE 1 TABLET BY ONCE DAILY Oral for 30 Days Active predniSONE 10 MG 1 tablet Orally Once a day for 30 days Take with food 05/03/2024 Active Vitamin D 50 MCG (1999) 1 tablet Oral ly Once a day Active guaiFENesin ER 600 MG 1 tablet as needed Orally every 12 hrs Active Ipratropium-Albuterol 0.5-2.5 (3) MG/3ML 3mL Inhalation QID for 90 days Dispense 360 ampules 08/11/2023 Active Isosorbide Mononitrate ER 60 MG Oral for 30 Days Active Magnesium Oxide -Mg Supplement 400 (240 Mg) MG TAKE 1 TABLET BY MOUTH IN THE MORNING then TAKE 1 TABLET BY MOUTH AT BEDTIME Oral for 15 Days Active Metoprolol Succinate ER 50 MG Oral for 30 Days Active Albuterol Sulfate HFA 108 (90 Base) MCG/ACT 2 puffs as needed for SOB Inhalation Q4H for 90 days Active Aspirin 81 MG 1 tablet Orally Once a day Active Atorvastatin Calcium 80 MG TAKE 1 TABLET BY MOUTH DAILY Oral for 90 Days Active Cyclobenzaprine HCl 10 MG TAKE 1 TABLET BY MOUTH THREE TIMES DAILY NEEDED Oral for 30 Days Active Furosemide 20 MG TAKE 1 & 1/2 (ONE AN D ONE-HALF) TABLETS BY MOUTH EVERY DAY Oral every other day for 90 days Active Dupixent 300 MG/2ML as directed Subcutaneous Active Trelegy Ellipta 100-62.5-25 MCG/ACT 1 puff Inhalation Once a day for 90 days Rinse after use 05/23/2024 Active Vital Signs Temperature 97.0 degrees Fahrenheit 05/23/19 25 Blood pressure systolic 169 mm Hg 05/23/19 Blood pressure diastolic 90 mm Hg 025 Heart Rate 71 /min 05/23/2024 Respiratory Rate 20 /min 05/23/2024 Height 63 in 05/23/2024 Weight 202.0 lbs 05/23/2024 BMI 35.78 kg/m2 05/23/2024 Oximetry 96 % 05/23/2024 Pre & Post Injection Encounters Encounter Location Date Provider Diagnosis Pulmonary Medicine [address] [address] 05/23/2024 Brien Coughlin COPD (chronic obstructive pulmonary disease) J44.9 Assessments Encounter Date Diagnosis (ICD Code) Assessment Notes Treatment Notes Treatment Clinical Notes Section Notes 05/23/2024 COPD (chronic obstructive pulmonary disease) (ICD-10 - J44.9) Patient presents for her initial Dupixent injection. Education provided with the demonstration device provided. Vitals obtained. Patient requesting Dupixent to be given in the left lower abdomen subcutaneously. Area was cleaned with Alcohol and allowed enough time to dry. The skin was pinched between the thumb and index finger (around an inch and a half apart) and held in that position until the medication was fully administered from the auto-injector. Patient was given one Dupixent 300mg/2mL Prefilled Pen SQ left lower abdomen. Band-aid was placed on the patient's abdomen. Patient tolerated the procedure without difficulty. Patient was held for the appropriate time. No adverse reactions were noted. Post Injection Vitals taken. [facility]:[id number]. Lot#[id number]. Exp:11/26/2024. Patient was advised to self administer Dupixent in 2 weeks at home. All questions and concerns answered with the patient. Chandu Rodriguez CMA. Plan Of Treatment Medication Medication Name Sig Start Date Stop Date Notes Fluticasone-Salmeterol 250-5 0 MCG/ACT 1 puff Inhalation BID Trelegy Ellipta 100-62.5-25 MCG/ACT 1 puff Inhalation Once a day for 90 days 05/23/2024 Next Appt Details Provider Name:Brien Ced, 11/22/2024 11:30:00 AM, [address] [place], [address], Medications Administered Medication Instructions Date of Administration Dosage Notes Dupixent 05/23/2024 300 mg Patient rian t the medication with her to the office today.Chandu Rodriguez 05/23/2024 11:35:11 AM EST > Progress Notes * Susana JUARESDOB:[birth year] (69 yo F)Acc No.[id number]:05/23/2024 Nurse Visit Patient: Karo BARRIGA Susana Provider: Tam Coughlin DO :1955 A ge:68 Y S ex:Female Date:05/23/2024 Address:[address] [place], [place] [id number] Pcp:POWER WARD Check In:10:17 AM ESTCheck O ut:10:47 AM EST Subjective: * Chief Complaints: * D upixent Injection * HPI: G eneral: Patient presents for her initial Dupixent injection. Patient denies any complaints today. Patient received her Dupixent Injections through her speciality pharmacy. Patient is currently enrolled in the Medicare Payment Prescription Plan. Patient is currently using Advair but would like to go back to [facility] now that the medication will cost much less and worked the best out of other inhalers she has tried in the past. * Active Problem List Z79.51 FDC (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 of inhaled steroids Modified On:01/25/2023 Status:confirmed J44.9 COPD (chronic obstru ctive pulmonary disease) Modified On:02/08/2023 Status:confirmed I25.10 CAD (coronary artery disease) Modified On:01/25/2023U Status:confirmed R91.8 Multiple pulmonary n odules Modified On:01/25/2023 Status:confirmed Z87.891 History of tobacco a buse Modified On:01/25/2023 Status:confirmed E66.9 Obesity, unspecified Modified On:07/20/2023 Status:confirmed Z68.35 Body mass index [BMI ] 35.0-35.9, adult Modified On:07/20/2023 Status:confirmed J44.9 Chronic obstructive pulmonary disease, unspecified Modified On:01/28/2024 Status:confirmed * Medical History: * Surgical History: * Hospitalization/Major Diagno stic Procedure: * Medications: T akingAlbuterol Sulfate HFA 108 (90 Base) MCG/ACT Aerosol Solution 2 puffs as needed for SOB Inhalation Q4H Aspirin 81 MG Tablet Delayed Release 1 tablet Orally Once a day Atorvastatin Calcium 80 MG Tablet TAKE 1 TABLET BY MOUTH DAILY Oral Cyclobenzaprine HCl 10 MG Tablet TAKE 1 TABLET BY MOUTH THREE TIMES DAILY NEEDED Oral Dupixent(Dupilumab) 300 MG/2ML Solution Auto-injector as directed Subcutaneous Fluticasone-Salmeterol 250-50 MCG/ACT Aerosol Powder Breath Activated 1 puff Inhalation BID Rinse after use. Dispense 3 inhalersFurosemide 20 MG Tablet TAKE 1 & 1/2 (ONE AND ONE-HALF) TABLETS BY MOUTH EVERY DAY Oral every other day guaiFENesin ER 600 MG Tablet Extended Release 12 Hour 1 tablet as needed Orally every 12 hrs Ipratropium-Albuterol 0.5-2.5 (3) MG/3ML Solution 3mL Inhalation QID Dispense 360 ampulesIsosorbide Mononitrate ER 60 MG Tablet Extended Release 24 Hour Oral Magnesium Oxide -Mg Supplement 400 (240 Mg) MG Tablet TAKE 1 TABLET BY MOUTH IN THE MORNING then TAKE 1 TABLET BY MOUTH AT BEDTIME Oral Metoprolol Succinate ER 50 MG Tablet Extended Release 24 Hour Oral Olmesartan Medoxomil 40 MG Tablet Oral Omeprazole 20 MG Capsule Delayed Release 1 capsule 30 minutes before morning meal Orally Once a day Prasugrel HCl 10 MG Tablet TAKE 1 TABLET BY MOUTH ONCE DAILY Oral predniSONE 10 MG Tablet 1 tablet Orally Once a day Take with foodVitamin D 50 MCG (1999) Tablet 1 tablet Orally Once a day Medication List reviewed and reconciled with the patientTaking Albuterol Sulfate HFA 108 (90 Base) MCG/ACT Aerosol Solution 2 puffs as needed for SOB Inhalation Q4H Taking Aspirin 81 MG Tablet Delayed Release 1 tablet Orally Once a day Taking Atorvastatin Calcium 80 MG Tablet TAKE 1 TABLET BY MOUTH DAILY Oral Taking Cyclobenzaprine HCl 10 MG Tablet TAKE 1 TABLET BY MOUTH THREE TIMES DAILY NEEDED Oral Taking Dupixent(Dupilumab) 300 MG/2ML Solution Auto- injector as directed Subcutaneous Taking Fluticasone-Salmeterol 250-50 MCG/ACT Aerosol Powder Breath Activated 1 puff Inhalation BID Rinse after use. Dispense 3 inhalersTaking Furosemide 20 MG Tablet TAKE 1 & 1/2 (ONE AND ONE-HALF) TABLETS BY MOUTH EVERY DAY Oral every other day Taking guaiFENesin ER 600 MG Tablet Extended Release 12 Hour 1 tablet as needed Orally every 12 hrs Taking Ipratropium-Albuterol 0.5-2.5 (3) MG/3ML Solution 3mL Inhalation QID Dispense 360 ampulesTaking Isosorbide Mononitrate ER 60 MG Tablet Extended Release 24 Hour Oral Taking Magnesium Oxide -Mg Supplement 400 (240 Mg) MG Tablet TAKE 1 TABLET BY MOUTH IN THE MORNING then TAKE 1 TABLET BY MOUTH AT BEDTIME Oral Taking Metoprolol Succinate ER 50 MG Tablet Extended Release 24 Hour Oral Taking Olmesartan Medoxomil 40 MG Tablet Oral Taking Omeprazole 20 MG Capsule Delayed Release 1 capsule 30 minutes before morning meal Orally Once a day Taking Prasugrel HCl 10 MG Tablet TAKE 1 TABLET BY MOUTH ONCE DAILY Oral Taking predniSONE 10 MG Tablet 1 tablet Orally Once a day Take with foodTaking Vitamin D 50 MCG (1999) Tablet 1 tablet Orally Once a day Medication List reviewed and reconciled with the patient * Allergies: V ancomycin: AllergyPlavix: AllergySulfa Antibiotics: AllergyPenicillin: rash - AllergyHydrochlorothiazide: shortness of breath - Allergyno[Allergies Verified] Objective: * Vitals: W t:202.0lbs, Ht: 63 in, BP: sittin/83 mm Hg,repeat:169/90mm Hg, Temp:Forehead:97.0F, HR: 74 /min,71/min, RR:20/min, BMI:35.78Index, Oxygen sat %: Room Air:95 %,Room Air:96%, Ht-cm: 160.02 cm, Wt-k.63 kg. Pre & Post Injection. Assessment: * Assessment: 1. C OPD (chronic obstructive pulmonary disease) - J44.9 (Primary) Patient presents for her ini tial Dupixent injection. Education provided with the demonstration device provided. Vitals obtained. Patient requesting Dupixent to be given in the left lower abdomen subcutaneously. Area was cleaned with Alcohol and allowed enough time to dry. The skin was pinched between the thumb and index finger (around an inch and a half apart) and held in that position until the medication was fully administered from the auto-injector. Patient was given one Dupixent 300mg/2mL Prefilled Pen SQ left lower abdomen. Band-aid was placed on the patient's abdomen. Patient tolerated the procedure without difficulty. Patient was held for the appropriate time. No adverse reactions were noted. Post Injection Vitals taken. [facility]:[id number]. Lot#[id number]. Exp:11/26/2024. Patient was advised to self administer Dupixent in 2 weeks at home. All questions and concerns answered with the patient. Chandu Rodriguez CMA. Plan: * Treatment: * Therapeutic Injections: Dupixent : 300 mg (Dose No:1) (Route: Subcutaneous) given by JASS Oneil on Abdomen Lower Left (COPD (chronic obstructive pulmonary disease)) * Procedure Codes: J 3490 UNCLASSIFIED [id number] INJ. CHEMO, NON-HORMONAL * * Sign off status: Completed Visit Status: C HK (Check Out) true * Provider: Tam Coughlin DO Date: 05/23/2024 Generated for Merly gonzalez/Brandin/Lumaitting on: 09/03/2024 04:39 AM EDT History and Physical Notes * HPI (History of Present Illness) Category Sub-Category Detail Notes Category Not es General Patient present s for her initial Dupixent injection. Patient denies any complaints today. Patient received her Dupixent Injections through her speciality pharmacy. Patient is currently enrolled in the Medicare Payment Prescription Plan. Patient is currently using Advair but would like to go back to Trelegy now that the medication will cost much less and worked the best out of other inhalers she has tried in the past.
--- OUTSIDE RECORDS SUMMARY | 2024-08-01 06:30 | XMS_ITS ---
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 Role Phone Nolvia Jimenez CNP Primary Care Provider Unavail able Ced Brien Unavailable [phone] Allergies Allergen (clinical drug ingredient) Drug/Non Drug Allergy documented on EMR Reaction Allergy Type Onset Date Status clopidogrel Plavix Unknown Drug Allergy Active hydrochlorothiazide Hydrochlorothiazide shortnes s of breath Drug Allergy Active Substance with sulfonamide structure and antibacterial mechanism of action (substance) Sulfa Antibiotics Unknown Drug Allergy Active Penicillin rash Drug Allergy Active vancomycin Vancomycin Unknown Drug Allergy Active REASON FOR VISIT 3m F/U - COPD Medications Medication SIG (Take, Route, Frequency, Duration) Notes Start Date End Date Status Omeprazole 20 MG 1 capsule 30 minutes before morning meal Orally Once a day Active predniSONE 10 MG 1 tablet Orally Once a day for 30 days Take with food 05/03/2024 Active Prasugrel HCl 10 MG TAKE 1 TABLET BY ONCE DAILY Oral for 30 Days Active Vitamin D 50 MCG (1999) 1 tablet Oral ly Once a day Active Trelegy Ellipta 100-62.5-25 MCG/ACT 1 puff Inhalation Once a day for 90 days Rinse after use 05/23/2024 Active Isosorbide Mononitrate ER 60 MG Oral for 30 Days Active Metoprolol Succinate ER 50 MG Oral for 30 Days Active Magnesium Oxide -Mg Supplement 400 (240 Mg) MG TAKE 1 TABLET BY MOUTH IN THE MORNING then TAKE 1 TABLET BY MOUTH AT BEDTIME Oral for 15 Days Active Olmesartan Medoxomil 40 MG Oral for 90 Days Active Ipratropium-Albuterol 0.5-2.5 (3) MG/3ML 3mL Inhalation QID for 90 days Dispense 360 ampules 08/11/2023 Active Cyclobenzaprine HCl 10 MG TAKE 1 TABLET BY MOUTH THREE TIMES DAILY NEEDED Oral for 30 Days Active Atorvastatin Calcium 80 MG TAKE 1 TABLET BY MOUTH DAILY Oral for 90 Days Active Furosemide 20 MG TAKE 1 & 1/2 (ONE AN D ONE-HALF) TABLETS BY MOUTH EVERY DAY Oral every other day for 90 days Active Dupixent 300 MG/2ML as directed Subcutaneous Active guaiFENesin ER 600 MG 1 tablet as needed Orally every 12 hrs Active Aspirin 81 MG 1 tablet Orally Once a day Active Albuterol Sulfate HFA 108 (90 Base) MCG/ACT 2 puffs as needed for SOB Inhalation Q4H for 90 days Active Social History Tobacco Use: Social History Observation Description Date Details (start date - stop date) Former Smoker NA - NA Tobacco Control (Standard) Question Answer Notes Tobacco use: Former smoker Additional Findings: Tobacco non-user Ex-heavy c igarette smoker (20-30/day) Problems Problem Type SNOMED Code ICD Code Onset Dates Problem Status W/U Status Risk Notes Problem [id number] [facility] (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 of systemic steroids (Z79.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 Vital Signs Temperature 97.1 degrees Fahrenheit 08/02/19 25 Blood pressure systolic 147 mm Hg 08/02/19 25 Blood pressure diastolic 77 mm Hg 025 Heart Rate 71 /min 08/01/2024 Respiratory Rate 20 /min 08/01/2024 Height 63 in 08/01/2024 Weight 200.6 lbs 08/01/2024 BMI 35.53 kg/m2 08/01/2024 Oximetry 95 % 08/01/2024 Encounters Encounter Location Date Provider Diagnosis [facility] [place] [address] [place] [address] 08/01/2024 Brien Coughlin COPD (chronic obstructive pulmonary disease) J44.9 ; Multiple pulmonary nodules R91.8 ; History of tobacco abuse Z87.891 ; [facility] (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 of systemic steroids Z79.52 ; [facility] (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 of inhaled steroids Z79.51 and Obesity, unspecified E66.9 Assessments Encounter Date Diagnosis (ICD Code) Assessment Notes Treatment Notes Treatment Clinical Notes Section Notes 08/01/2024 COPD (chronic obstructive pulmonary disease) (ICD-10 - J44.9) Patient has since been able to get Trelegy > Advair, but now having difficulty inspiring dry powder inhalers. She was also able to get Dupixent, but she has not had as profound benefit as hoped. She is still on Prednisone 10mg/day which has only mild benefit over 5mg/day. I re-reviewed her PFT. After review, I discussed she could be an EBV candidate - last time I expressed concerns that she may not. I offered to refer her to either [facility] (e.g. Dr. Heard) or (e.g. Dr. Siddiqui), but she refused this again. As she is having difficult with Trelegy, she may be losing enough negative inspiratory force (NIF) in order to fully distribute dry powder inhaler. I suggested trial of Breztri, 2 puffs BID. HFA formulation should be easier for her to use. Samples provided, will see her back in 4 weeks to assess response. 08/01/2024 Multiple pulmonary nodules (ICD-10 - R91.8) Unchanged nodule 04/18/2024 as far back as 01/20/2023. 08/01/2024 History of tobacco abuse (ICD-10 - Z87.891) 1ppd x 50 years, quit 2017 LDCT 01/24/2024 - RADS-2. LDCT due 12/2024. 08/01/2024 [facility] (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 of systemic steroids (ICD-10 - Z79.52) Discussed adverse effects of alf systemic steroids including, but not limited to: increased risk of cataracts, elevated blood sugars/worsening of underlying diabetes mellitus, impaired wound healing, gastrointestinal ulcers, osteoporosis. 08/01/2024 [facility] (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 of inhaled steroids (ICD-10 - Z79.51) Patient was counseled to rinse & gargle with water after inhaled corticosteroid use. 08/01/2024 Obesity, unspecified (ICD-10 - E66.9) Patient's weight is inducing a restrictive pulmonary physiology. Weight loss indicated: Decrease calories, increase activity. 08/01/2024 Other Plan Of Treatment Treatment Notes Assessment Notes COPD (chronic obstructive pu lmonary disease) Patient has since been able to get Trelegy > Advair, but now having difficulty inspiring dry powder inhalers. She was also able to get Dupixent, but she has not had as profound benefit as hoped. She is still on Prednisone 10mg/day which has only mild benefit over 5mg/day. I re-reviewed her PFT. After review, I discussed she could be an EBV candidate - last time I expressed concerns that she may not. I offered to refer her to either [facility] (e.g. Dr. Heard) or (e.g. Dr. Siddiqui), but she refused this again. As she is having difficult with Trelegy, she may be losing enough negative inspiratory force (NIF) in order to fully distribute dry powder inhaler. I suggested trial of Breztri, 2 puffs BID. HFA formulation should be easier for her to use. Samples provided, will see her back in 4 weeks to assess response. Multiple pulmonary nodules Unchanged nodule 04/18/2024 as far back as 01/20/2023. History of tobacco abuse 1ppd x 50 years, quit 2017 LDCT 01/24/2024 - RADS-2. LDCT due 12/2024. 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 Obesity, unspecified Patient's weight is inducing a restrictive pulmonary physiology. Weight loss indicated: Decrease calories, increase activity. Next Appt Details Follow Up: 4 Weeks, Reason: COPD Provider Name:Brien Coughlin, 11/22/2024 11:30:00 AM, [address] [place], [address], Procedure Notes * Category Sub-Category Detail Notes PFT Data: 01/24/2024-FEV1/ FVC: 53%-FEV1: 43%-FVC: 61%-Bronchodilator response: Positive in FVC-RV: 184%-T%-DLCO: 55%-Flow-volume loop: Severe djgektdxvwv69/23/2023-FEV1/FVC: 55%-FEV1: 41%-FVC: 56%-Bronchodilator response: Positive in FVC-RV: 197%-T%-DLCO: 61%-Flow-volume loop: Severe rahfddfevdq00/28/2022-FEV1/FVC: 61%-FEV1: 49%-FVC: 61%-Bronchodilator response: Equivocal-RV: 166%-T%-DLCO: 53%-Flow-volume loop: Severe abvdxjqssmg13/21/2020 - Spirometry-FEV1/FVC: 59%-FEV1: 47%-FVC: 64%-ZFT00-21%: 25%-Flow-volume loop: Moderately-severe obstruction-No bronchodilator response07/20/20188290-Cmknvvaarm-LKR5/FVC: 63%-FEV1: 51%-FVC: 62%-NJA37-21%: 31%-Flow-volume loop: Moderate obstruction07/20/20171773-Jbqrdkcrzk-XOM0/FVC: 69% -FEV1: 55%-FVC: 68%-AXZ68-60%: 31%-Flow-volume loop: Moderate obstruction Alpha-1 Antitrypsin Screening Date: 01/15/2021 Genotype: M/M Progress Notes * JAYCE SusanaDOB:[birth year] (69 yo F)Acc No.[id number]:08/01/2024 Follow Up Patient: Susana MARTIN Provider: Tam Coughlin DO :1955 A ge:69 Y S ex:Female Date:08/01/2024 Address:[address] [place], [place] [id number] Pcp:Nolvia Jimenez CNP Check In:10:20 AM Krissy House ut:11:07 AM EST Subjective: * Chief Complaints: * 3 m F/U - COPD * HPI: G eneral: Patient was actually able to get Dupixent and started it after last visit. She has not noticed a significant improvement in her breathing however. She remains on Trelegy and admits she is now having a choking feeling when using it - she does not feel she is able to have enough inspiratory force for the dry powder inhaler and complains that she feels there is a choking sensation in her throat/vocal cords. She overall continues to feel a slow decline in her health. Had recent cardiac catheterization which did not show significant coronary disease per the patient. She had an elevated WBC on one date @ 23k but improved to 11.5k the next; previously, there was no leukocytosis. She is very, very worried about this, She also is worried about slow decline in renal function (GFR). She began talking about how she won't do hemodialysis and when its her time to go, she's ready. Her last GFR was 32, which is only CKD stage 3B - she is still far from looking into dialysis. Additionally, I explained that there was only an acute spike in WBC for one day and resolved the next - this represents something acute, such as stress or infection - leukemia would not present like that. She wants to look into a willed-body program, but she is quite upset that [facility] would actually charge those donating $100! I suggested -[facility]'s program - they accept willed-bodies without any financial burden. MA Intake Comments:. Patient presents for a follow-up for COPD. Patient is currently on Dupixent and reports her last injection to be at home 2 weeks ago. Patient will be taking her Dupixent Injection today. Patient is currently taking Trelegy & Prednisone daily with benefit. Patient states she was advised the Prednisone could be causing renal failure, so she stopped the medication for a short time but states she restarted the medication due to her breathing. Patient complains of SOB. Patient recently had a Cardiac Catheterization on 07/03/2024. Patient is under the care of [facility] Cardiology. * ROS: G eneral/Constitutional: Fever or sweats d enies. C hange of appetite d enies. C hills d enies. W eight Change d enies. H EENT: Dry mouth d enies. S ore throat d enies. O ral Ulcers d enies. P ost Nasal Drip D enies. C ongestion D enies. H oarseness?Denies. C ardiovascular: Tachycardia d enies. C hest pain d enies. P alpitations d enies. R espiratory: Chest tightness d enies. P leurisy D enies. D yspnea a dmits. C ough w ith mucus. H emoptysis d enies. W heezing d enies. G astrointestinal: Acid Reflux/GERD/Heartburn d enies. D ysphagia d enies. M usculoskeletal: Arthralgias/joint pain D enies. S kin: Easy bruising d enies. R jameson d enies. ? N eurologic: Seizures d enies. T remor d enies. H ematology: Abnormal Bleeding d enies. P sychiatric: Depression a dmits. A nxiety d enies. 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 Modified On:01/25/2023/U Status:confirmed J44.9 COPD (chronic obstru ctive pulmonary disease) Modified On:02/08/2023U Status:confirmed I25.10 CAD (coronary artery disease) Modified On:01/25/2023/U Status:confirmed R91.8 Multiple pulmonary n odules Modified On:01/25/2023U Status:confirmed Z87.891 History of tobacco a buse Modified On:01/25/2023U Status:confirmed E66.9 Obesity, unspecified Modified On:07/20/2023U Status:confirmed Z68.35 Body mass index [BMI ] 35.0-35.9, adult Modified On:07/20/2023U Status:confirmed J44.9 Chronic obstructive pulmonary disease, unspecified Modified On:01/28/2024U Status:confirmed Z79.52 [facility] (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 of systemic steroids Modified On:08/01/2024 Status:confirmed * Medical History: * Surgical History: C ardiac Catheterization-2001, 07/14/2022, 10/30/2022 & 07/03/2024 hysterectomy cholecystectomy * Hospitalization/Major Diagno stic Procedure: A rrhythmia & Hyponatremia-[facility] 10/26/2022 * Family History: M other: stroke, COPD, diagnosed with Unspecified heart disease, Unspecified essential hypertension. S ister(s): emphysema. F ather: diagnosed with Unspecified essential hypertension, Unspecified heart disease. * Social History: T obacco Use: T obacco Control (Standard) T obacco use: F ormer smoker A dditional Findings: Tobacco non-user E x-heavy cigarette smoker (20-30/day) Electronic Cigarette use C urrent user N o LM: Additional Tobacco Questions N umber of Years Pt Smoked: 5 0 N umber of Packs per Day: 1 When did you stop smokin. M iscellaneous: O ccupation O ccupation: R etired Retail Pets: cat. D rugs/Alcohol: D rugs H ave you used drugs other than those for medical reasons in the past 12 months? N o D oes the Patient have a History of Drug Abuse in the Past? N o Caffeine I ntake: 3 -4 cups per day Do you drink alcohol?: Yes, Socially. Do you smoke marijuana?: Denies. * Medications: T akingAlbuterol Sulfate HFA 108 [...] 300 MG/2ML Solution Auto-injector as directed Subcutaneous Furosemide 20 MG Tablet TAKE 1 & [...] tablet Orally Once a day Take with foodTrelegy Ellipta(Embhwsvcekd-Phrihlids-Hurwoz) 100-62.5-25 MCG/ACT Aerosol Powder Breath Activated 1 puff Inhalation Once a day Rinse after useVitamin D 50 MCG (1999) Tablet 1 tablet [...] Solution Auto- injector as directed Subcutaneous Taking Furosemide 20 MG Tablet TAKE 1 & 1/2 (ONE AND ONE- HALF) TABLETS BY MOUTH EVERY DAY Oral every [...] Orally Once a day Take with foodTaking Trelegy Ellipta(Vssxndicbiq-Nopmgvhhk-Asglzv) 100-62.5-25 MCG/ACT Aerosol Powder Breath Activated 1 puff Inhalation Once a day Rinse after useTaking Vitamin D 50 MCG (1999) Tablet 1 tablet Orally Once a day Medication List reviewed and reconciled with the patient * Allergies: V ancomycin: AllergyPlavix: AllergySulfa Antibiotics: AllergyPenicillin: rash - AllergyHydrochlorothiazide: shortness of breath - Allergyno[Allergies Verified] Objective: * Vitals: W t:200.6lbs, Ht: 63 in, BP:sittin/77mm Hg, Temp:Forehead:97.1F, HR:71/min, RR:20/min, BMI:35.53Index, Oxygen sat %:Room Air:95%, Ht-cm: 160.02 cm, Wt-k.99 kg. * Examination: E xam: GENERAL APPEARANCE: I n no acute distress. Skin N ormal. Mouth P ink and moist. No candidiasis. Oropharynx M allampati Class III. Trachea M idline. Chest I ncreased A-P Diameter. Respiratory Normal M ovements, E ffort N ormal. Auscultation D iminished but clear breath sounds. Cardiac R egular rate and rhythm. Gastrointestinal M ild central adiposity. Vascular N o edema. Musculoskeletal N ormal posture. Neurological F ocal, intact. Psychiatric A lert and oriented x3. Mentation/Cognition N ormal. Assessment: * Assessment: 1. C OPD (chronic obstructive pulmonary disease) - J44.9 (Primary) 2 . M ultiple pulmonary nodules - R91.8 3 . H istory of tobacco abuse - Z87.891 ? 4 . L joseph term (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 of systemic steroids - Z79.52 5 . L joseph term (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 of inhaled steroids - Z79.51 6 . O besity, unspecified - E66.9 Plan: * Treatment: 2. M ultiple pulmonary nodules Notes: Unchanged nodule 04/18/2024 as far back as 01/20/2023. 3. H istory of tobacco abuse Notes: 1ppd x 50 years, quit 2017 LDCT 01/24/2024 - RADS-2. LDCT due 12/2024. 4. L joseph term (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 of systemic steroids Notes: Discussed adverse effects of alf systemic steroids including, but not limited to: increased risk of cataracts, elevated blood sugars/worsening of underlying diabetes mellitus, impaired wound healing, gastrointestinal ulcers, osteoporosis. 5. L joseph term (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 of inhaled steroids Notes: Patient was counseled to rinse & gargle with water after inhaled corticosteroid use. ? 6. O besity, unspecified Notes: Patient's weight is inducing a restrictive pulmonary physiology. Weight loss indicated: Decrease calories, increase activity. * Procedures: A lpha-1 Antitrypsin: Screening Date: . Genotype: M /M. P FT: Data: 01/24/2024 -FEV1/FVC: 53% -FEV1: 43% -FVC: 61% -Bronchodilator response: Positive in FVC -RV: 184% -T% -DLCO: 55% -Flow-volume loop: Severe obstruction 01/18/2023 -FEV1/FVC: 55% -FEV1: 41% -FVC: 56% -Bronchodilator response: Positive in FVC -RV: 197% -T% -DLCO: 61% -Flow-volume loop: Severe obstruction 01/23/2022 -FEV1/FVC: 61% -FEV1: 49% -FVC: 61% -Bronchodilator response: Equivocal -RV: 166% -T% -DLCO: 53% -Flow-volume loop: Severe obstruction 01/17/2020 - Spirometry -FEV1/FVC: 59% -FEV1: 47% -FVC: 64% -CFB72-64%: 25% -Flow-volume loop: Moderately-severe obstruction -No bronchodilator response 07/20/2018-Spirometry -FEV1/FVC: 63% -FEV1: 51% -FVC: 62% -GWP12-65%: 31% -Flow-volume loop: Moderate obstruction 07/20/2017-Spirometry -FEV1/FVC: 69% -FEV1: 55% -FVC: 68% -PGU32-92%: 31% -Flow-volume loop: Moderate obstruction. * Procedure Codes: * Preventive Medicine: COVID Vaccination: H as patient had COVID Vaccination? COVID Vaccination Y es 09/01/2020 Immunization Status: P neumovacc P t Refused. I nfluenza P t Refused. Screenings/Counseling: F ALL RISK SCREENING Fall Risk Assessment: N o falls in the past year Are you afraid of falling? N o T OBACCO ACTION PLAN Patient counselled on the dangers of tobacco use and urged to quit. 0 08/01/2024 Former Education on smoking effects provided?08/01/2024 Former F DELMER EXCLUSION Reason: P atient Reason refused/declined Type of Patient Reason: D rug declined by patient B IL ACTION PLAN Above Normal BMI Follow-up D ietary management education, guidance, and counseling * Follow Up: 4 Weeks (Reason: COPD) * * Sign off status: Completed Visit Status: C HK (Check Out) true * Provider: Tam Coughlin, DO Date: 0 08/01/2024 Generated for Merly gonzalez/Brandin/Lumaitting on: 0 09/03/2024 04:38 AM EDT History and Physical Notes * HPI (History of Present Illness) Category Sub-Category Detail Notes Category Not es General Patient present s for a follow-up for COPD. Patient is currently on Dupixent and reports her last injection to be at home 2 weeks ago. Patient will be taking her Dupixent Injection today. Patient is currently taking Trelegy & Prednisone daily with benefit. Patient states she was advised the Prednisone could be causing renal failure, so she stopped the medication for a short time but states she restarted the medication due to her breathing. Patient complains of SOB. Patient recently had a Cardiac Catheterization on 07/03/2024. Patient is under the care of [facility] Cardiology. Examination Category Sub-Category Detail Notes Category Not es Exam GENERAL APPEARANCE: In no acute distress Skin Normal Mouth Chili and moist. No c andidiasis Trachea Midline Chest Increased A-P Diamet er Respiratory Normal Movements, Ef fort Normal Auscultation Diminished but clear breath sounds Cardiac Regular rate and rhy thm Gastrointestinal Mild central adiposi ty Vascular No edema Musculoskeletal Normal posture Neurological Focal, intact Psychiatric Alert and oriented x 3 Mentation/Cognition Normal Oropharynx Mallampati Class III
--- OUTSIDE RECORDS SUMMARY | 2024-08-23 07:30 | XMS_ITS ---
Author Organization [facility] in [place] Address [address] [place] [address] Care Team Providers Care Health And Safety Specialist Name Role Phone Nolvia Jimenez CNP Primary Care Provider Unavail able Juliensa Brien Unavailable [phone] Allergies Allergen (clinical drug ingredient) Drug/Non Drug Allergy documented on EMR Reaction Allergy Type Onset Date Status clopidogrel Plavix Unknown Drug Allergy Active hydrochlorothiazide Hydrochlorothiazide shortnes s of breath Drug Allergy Active Substance with sulfonamide structure and antibacterial mechanism of action (substance) Sulfa Antibiotics Unknown Drug Allergy Active Penicillin rash Drug Allergy Active vancomycin Vancomycin Unknown Drug Allergy Active REASON FOR VISIT 4w F/U - COPD Medications Medication SIG (Take, Route, Frequency, Duration) Notes Start Date End Date Status Trelegy Ellipta 100-62.5-25 MCG/ACT 1 puff Inhalation Once a day for 90 days Rinse after use ; Dispense #3 inhalers 05/23/2024 Active Vitamin D 50 MCG (2000 UT) 1 tablet Oral ly Once a day Active Ventolin HFA 108 (90 Base) MCG/ACT 2 puffs as needed for SOB Inhalation Q4H for 90 days Dispense #3 inhalers 08/23/2024 Active Isosorbide Mononitrate ER 60 MG 1 tablet in the morning Orally Once a day for 30 days Active Magnesium Oxide -Mg Supplement 400 (240 Mg) MG TAKE 1 TABLET BY MOUTH IN THE MORNING then TAKE 1 TABLET BY MOUTH AT BEDTIME Oral for 15 Days Active Metoprolol Tartrate 50 MG TAKE 1 TABLET BY MOUTH TWICE DAILY Oral for 90 Days Active Olmesartan Medoxomil 40 MG 1 tablet Oral ly Once a day for 90 days Active Omeprazole 20 MG 1 capsule 30 minutes before morning meal Orally Once a day Active Farxiga 10 MG 1 tablet Orally Once a day for 30 days Active Furosemide 20 MG 1 tablet Orally ever y other day for 90 days Active guaiFENesin ER 600 MG 1 tablet as needed Orally every 12 hrs Active Ipratropium-Albuterol 0.5-2.5 (3) MG/3ML 3mL Inhalation QID for 90 days Dispense 360 ampules 08/11/2023 Active Aspirin 81 MG 1 tablet Orally Once a day Active Atorvastatin Calcium 80 MG TAKE 1 TABLET BY MOUTH DAILY Oral for 90 Days Active Cyclobenzaprine HCl 10 MG TAKE 1 TABLET BY MOUTH THREE TIMES DAILY NEEDED Oral for 30 days Active Dupixent 300 MG/2ML as directed Subcutaneous Active predniSONE 10 MG 1 tablet Orally Once a day for 90 days Take with food 05/03/2024 Active Social History Tobacco Use: Social History Observation Description Date Details (start date - stop date) Former Smoker NA - NA Tobacco Control (Standard) Question Answer Notes Tobacco use: Former smoker Additional Findings: Tobacco non-user Ex-heavy c igarette smoker (20-30/day) Vital Signs Temperature 97.1 degrees Fahrenheit 08/24/19 25 Blood pressure systolic 147 mm Hg 08/24/19 25 Blood pressure diastolic 89 mm Hg 025 Heart Rate 74 /min 08/23/2024 Respiratory Rate 18 /min 08/23/2024 Height 63 in 08/23/2024 Weight 198.6 lbs 08/23/2024 BMI 35.18 kg/m2 08/23/2024 Oximetry 92 % 08/23/2024 Encounters Encounter Location Date Provider Diagnosis Pulmonary Medicine [address] [id number] 08/23/2024 Brien Ced COPD (chronic obstructive pulmonary disease) J44.9 ; Multiple pulmonary nodules R91.8 ; History of tobacco abuse Z87.891 ; assisted (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 of systemic steroids Z79.52 ; assisted (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 of inhaled steroids Z79.51 and Obesity, unspecified E66.9 Assessments Encounter Date Diagnosis (ICD Code) Assessment Notes Treatment Notes Treatment Clinical Notes Section Notes 08/23/2024 COPD (chronic obstructive pulmonary disease) (ICD-10 - J44.9) Prior inhalers: Trelegy ~ Breztri > Advair No benefit with Breztri over Trelegy. Patient stated she would just remain on Trelegy. Once again declines referral for EBV. Voices no interest in converting over to nebs or adding on Ohtuvayre. Patient states she will continue with Trelegy and prednisone. She states she is okay with this and knows there really is not much else that can be done. 08/23/2024 Multiple pulmonary nodules (ICD-10 - R91.8) Unchanged nodule 04/18/2024 as far back as 01/20/2023. 08/23/2024 History of tobacco abuse (ICD-10 - Z87.891) 1ppd x 50 years, quit 2017 LDCT 01/24/2024 - RADS-2. LDCT due 12/2024. 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 08/23/2024 Obesity, unspecified (ICD-10 - E66.9) Patient's weight is inducing a restrictive pulmonary physiology. Weight loss indicated: Decrease calories, increase activity. Plan Of Treatment Medication Medication Name Sig Start Date Stop Date Notes Trelegy Ellipta 100-62.5-25 MCG/ACT 1 puff Inhalation Once a day for 90 days 05/23/2024 Ventolin HFA 108 (90 Base) MCG/ACT 2 puffs as needed for SOB Inhalation Q4H for 90 days 08/23/2024 Albuterol Sulfate HFA 108 (90 Base) MCG/ACT 2 puffs as needed for SOB Inhalation Q4H Dupixent 300 MG/2ML as directed Subcutaneous predniSONE 10 MG 1 tablet Orally Once a day for 90 days 05/03/2024 Breztri Aerosphere 160-9-4.8 MCG/ACT 2 puffs Inhalation Twice a day Treatment Notes Assessment Notes COPD (chronic obstructive pu lmonary disease) Prior inhalers: Trelegy ~ Breztri > Advair No benefit with Breztri over Trelegy. Patient stated she would just remain on Trelegy. Once again declines referral for EBV. Voices no interest in converting over to nebs or adding on Ohtuvayre. Patient states she will continue with Trelegy and prednisone. She states she is okay with this and knows there really is not much else that can be done. Multiple pulmonary nodules Unchanged nodule 04/18/2024 as far back as 01/20/2023. History of tobacco abuse 1ppd x 50 years, quit 2017 LDCT 01/24/2024 - RADS-2. LDCT due 12/2024. assisted (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 of s ystemic steroids Discussed adverse effects of assisted systemic steroids including, but not limited to: increased risk of cataracts, elevated blood sugars/worsening of underlying diabetes mellitus, impaired wound healing, gastrointestinal ulcers, osteoporosis. assisted (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 of i nhaled steroids Patient was counseled to rinse & gargle with water after inhaled corticosteroid use. Obesity, unspecified Patient's weight is inducing a restrictive pulmonary physiology. Weight loss indicated: Decrease calories, increase activity. Next Appt Details Follow Up: 3 Months, Reason: COPD Provider Name:Brien Julien, 11/22/2024 11:30:00 AM, [address] [place], [address], Procedure Notes * Category Sub-Category Detail Notes PFT Data: 01/24/2024-FEV1/ FVC: 53%-FEV1: 43%-FVC: 61%-Bronchodilator response: Positive in FVC-RV: 184%-T%-DLCO: 55%-Flow-volume loop: Severe byrshnrrbcn21/23/2023-FEV1/FVC: 55%-FEV1: 41%-FVC: 56%-Bronchodilator response: Positive in FVC-RV: 197%-T%-DLCO: 61%-Flow-volume loop: Severe ybssiutswct33/28/2022-FEV1/FVC: 61%-FEV1: 49%-FVC: 61%-Bronchodilator response: Equivocal-RV: 166%-T%-DLCO: 53%-Flow-volume loop: Severe jpajwltztim04/21/2020 - Spirometry-FEV1/FVC: 59%-FEV1: 47%-FVC: 64%-QTA41-06%: 25%-Flow-volume loop: Moderately-severe obstruction-No bronchodilator response07/20/20181711-Xqmuctityq-OKD7/FVC: 63%-FEV1: 51%-FVC: 62%-OQD19-63%: 31%-Flow-volume loop: Moderate obstruction07/20/20177690-Zxpznohhvj-MGS2/FVC: 69% -FEV1: 55%-FVC: 68%-BUS84-32%: 31%-Flow-volume loop: Moderate obstruction Alpha-1 Antitrypsin Screening Date: 01/15/2021 Genotype: M/M Progress Notes * Emily JUARESmatthewDOB:[birth year] (69 yo F)Acc No.[id number]:08/23/2024 Follow Up Patient: Susana MARTIN Provider: Tam Coughlin DO :1955 A ge:69 Y S ex:Female Date:08/23/2024 Address:[address] [place], [place] [id number] Pcp:Nolvia Jimenez CNP Check In:11:27 AM ESTCheck O ut:12:11 PM EST Subjective: * Chief Complaints: * 4 w F/U - COPD * HPI: G eneral: Patient is doing about the same. Changing from Trelegy to Breztri had no benefit. She does feel Dupixent is helping slightly. No new issues or complaints today. MA Intake Comments:. Patient presents for a follow-up for COPD. Patient is currently using Breztri, Dupixent and Albuterol daily with benefit. Patient reports her last Dupixent on 08/15/2024 at home. Patient reports benefit. Patient states the Breztri did not make much difference in her breathing. Patient states her breathing is unchanged since her last visit. Patient is under the care of [facility] Cardiology. * ROS: G eneral/Constitutional: Fever or [...] d enies. * Active Problem List Z79.51 assisted (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 of inhaled steroids Modified On:01/25/2023U Status:confirmed J44.9 COPD (chronic obstru ctive pulmonary disease) Modified On:02/08/2023U Status:confirmed I25.10 CAD (coronary artery disease) Modified On:01/25/2023U Status:confirmed R91.8 Multiple pulmonary n odules Modified On:01/25/2023U Status:confirmed Z87.891 History of tobacco a buse Modified On:01/25/2023U Status:confirmed E66.9 Obesity, unspecified Modified On:07/20/2023U Status:confirmed Z68.35 Body mass index [BMI ] 35.0-35.9, adult Modified On:07/20/2023U Status:confirmed J44.9 Chronic obstructive pulmonary disease, unspecified Modified On:01/28/2024U Status:confirmed Z79.52 assisted (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 of systemic steroids Modified On:08/01/2024/U Status:confirmed * Medical History: * Surgical History: C ardiac Catheterization-2001, 07/14/2022, 10/30/2022 & 07/03/2024 hysterectomy cholecystectomy * Hospitalization/Major Diagno stic Procedure: A rrhythmia & Hyponatremia-[facility] 10/26/2022 * Family History: M other: stroke, COPD, diagnosed with Unspecified essential hypertension, Unspecified heart disease. S ister(s): emphysema. F ather: diagnosed with [...] TAKE 1 TABLET BY MOUTH DAILY Oral Breztri Aerosphere(Rhqlatf-Cpdravnjdqi-Bvnnpukxna) 160-9-4.8 MCG/ACT Aerosol 2 puffs Inhalation Twice a day Cyclobenzaprine HCl 10 MG Tablet TAKE 1 TABLET BY MOUTH THREE TIMES DAILY NEEDED Oral Dupixent(Dupilumab) 300 MG/2ML Solution Auto-injector as directed Subcutaneous Farxiga(Dapagliflozin Propanediol) 10 MG Tablet 1 tablet Orally Once a day Furosemide 20 MG Tablet 1 tablet Orally every other day guaiFENesin ER 600 MG Tablet Extended Release 12 Hour 1 tablet as needed Orally every 12 hrs Ipratropium-Albuterol 0.5-2.5 (3) MG/3ML Solution 3mL Inhalation QID Dispense 360 ampulesIsosorbide Mononitrate ER 60 MG Tablet Extended Release 24 Hour 1 tablet in the morning Orally Once a day Magnesium Oxide -Mg Supplement 400 (240 Mg) MG Tablet TAKE 1 TABLET BY MOUTH IN THE MORNING then TAKE 1 TABLET BY MOUTH AT BEDTIME Oral Metoprolol Tartrate 50 MG Tablet TAKE 1 TABLET BY MOUTH TWICE DAILY Oral Olmesartan Medoxomil 40 MG Tablet 1 tablet Orally Once a day Omeprazole 20 MG Capsule Delayed Release 1 capsule 30 minutes before morning meal Orally Once a day predniSONE 10 MG Tablet 1 tablet Orally Once a day Take with foodVitamin D 50 MCG (1999) Tablet 1 tablet Orally Once a day Taking Albuterol Sulfate HFA 108 (90 Base) MCG/ACT Aerosol Solution 2 puffs as needed for SOB Inhalation Q4H Taking Aspirin 81 MG Tablet Delayed Release 1 tablet Orally Once a day Taking Atorvastatin Calcium 80 MG Tablet TAKE 1 TABLET BY MOUTH DAILY Oral Taking Breztri Aerosphere(Ckzjiwo-Knlndpfbhah-Bfickogxdc) 160-9-4.8 MCG/ACT Aerosol 2 puffs Inhalation Twice a day Taking Cyclobenzaprine HCl 10 MG Tablet TAKE 1 TABLET BY MOUTH THREE TIMES DAILY NEEDED Oral Taking Dupixent(Dupilumab) 300 MG/2ML Solution Auto-injector as directed Subcutaneous Taking Farxiga(Dapagliflozin Propanediol) 10 MG Tablet 1 tablet Orally Once a day Taking Furosemide 20 MG Tablet 1 tablet Orally every other day Taking guaiFENesin ER 600 MG Tablet Extended Release 12 Hour 1 tablet as needed Orally every 12 hrs Taking Ipratropium-Albuterol 0.5-2.5 (3) MG/3ML Solution 3mL Inhalation QID Dispense 360 ampulesTaking Isosorbide Mononitrate ER 60 MG Tablet Extended Release 24 Hour 1 tablet in the morning Orally Once a day Taking Magnesium Oxide -Mg Supplement 400 (240 Mg) MG Tablet TAKE 1 TABLET BY MOUTH IN THE MORNING then TAKE 1 TABLET BY MOUTH AT BEDTIME Oral Taking Metoprolol Tartrate 50 MG Tablet TAKE 1 TABLET BY MOUTH TWICE DAILY Oral Taking Olmesartan Medoxomil 40 MG Tablet 1 tablet Orally Once a day Taking Omeprazole 20 MG Capsule Delayed Release 1 capsule 30 minutes before morning meal Orally Once a day Taking predniSONE 10 MG Tablet 1 tablet Orally Once a day Take with foodTaking Vitamin D 50 MCG (1999) Tablet 1 tablet Orally Once a day Not-Taking/PRNTrelegy Ellipta(Tpsgjuwbskm-Qpvzxxwhh-Axgwtn) 100-62.5-25 MCG/ACT Aerosol Powder Breath Activated 1 puff Inhalation Once a day Rinse after useNot-Taking/PRN Trelegy Ellipta(Palzpkrqfwu-Wvryxqtzc-Bfoddx) 100-62.5-25 MCG/ACT Aerosol Powder Breath Activated 1 puff Inhalation Once a day Rinse after useDiscontinuedMetoprolol Succinate ER 50 MG Tablet Extended Release 24 Hour Oral Prasugrel HCl 10 MG Tablet TAKE 1 TABLET BY MOUTH ONCE DAILY Oral Medication List reviewed and reconciled with the patientDiscontinued Metoprolol Succinate ER 50 MG Tablet Extended Release 24 Hour Oral Discontinued Prasugrel HCl 10 MG Tablet TAKE 1 TABLET BY MOUTH ONCE DAILY Oral Medication List reviewed and reconciled with the patient * Allergies: V ancomycin: AllergyPlavix: AllergySulfa Antibiotics: AllergyPenicillin: rash - AllergyHydrochlorothiazide: shortness of breath - Allergyno[Allergies Verified] Objective: * Vitals: W t:198.6lbs, Ht: 63 in, BP:sittin/89mm Hg, Temp:Forehead:97.1F, HR:74/min, RR:18/min, BMI:35.18Index, Oxygen sat %:Room Air:92%, Ht-cm: 160.02 cm, Wt-k.08 kg. * Examination: E xam: GENERAL APPEARANCE: I n no acute distress. Skin N ormal. Mouth P ink and moist. No candidiasis. Oropharynx M allampati Class III. Trachea M idline. Chest I ncreased A-P Diameter. Respiratory Normal M ovements, E ffort N ormal. Auscultation B reath sounds remain diminished and clear without wheezes, crackles, or rhonchi. Cardiac R egular rate and rhythm. 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 * Procedure [...] tobacco use and urged to quit. 0 08/23/2024 Former Education on smoking effects provided?08/23/2024 Former F DELMER EXCLUSION Reason: P atient Reason refused/declined Type of Patient Reason: D rug declined by patient B HI ACTION PLAN Above Normal BMI Follow-up D ietary management education, guidance, and counseling * Follow Up: 3 Months (Reason: COPD) * * Sign off status: Completed Visit Status: C HK (Check Out) true * Provider: Tam Coughlin DO Date: 0 08/23/2024 Generated for Merly gonzalez/Brandin/Lumaitting on: 0 09/03/2024 04:39 AM EDT History and Physical Notes * HPI (History of Present Illness) Category Sub-Category Detail Notes Category Not es General Patient present s for a follow-up for COPD. Patient is currently using Breztri, Dupixent and Albuterol daily with benefit. Patient reports her last Dupixent on 08/15/2024 at home. Patient reports benefit. Patient states the Breztri did not make much difference in her breathing. Patient states her breathing is unchanged since her last visit. Patient is under the care of [facility] Cardiology. Examination Category Sub-Category Detail Notes Category Not es Exam GENERAL APPEARANCE: In no acute distress Skin Normal Mouth [place] and moist. No c andidiasis Trachea Midline Chest Increased A-P Diamet er Respiratory Normal Movements, Ef fort Normal Auscultation Breath sounds remain diminished and clear without wheezes, crackles, or rhonchi Cardiac Regular rate and rhy thm Gastrointestinal Mild central adiposi ty Vascular No edema Musculoskeletal Normal posture Neurological Focal, intact Psychiatric Alert and oriented x 3 Mentation/Cognition Normal Oropharynx Mallampati Class III
[2024-09-03] VITALS (49 sets, daily range): BP systolic 104–146; BP diastolic 47–113; PULSE 84–120; TEMP 37.3; O2SAT 79–100; BMI 35.4
--- OUTSIDE RECORDS SUMMARY | 2024-09-03 04:39 | XMS_ITS | Referral Summary ---
Author Organization [facility] Address [address] [place] [address] Care Team Providers Care Sql Report Analyst Name Role Phone Nolvia Jimenez MD Primary Care Provider [phone] Encounters Date Type Department Care Team Description 08/01/2024 11:15 AM EDT Office Visit [address] [phone] Abby Azevedo MD Coronary artery disease involving houlton coronary artery of houlton heart without angina pectoris (Primary Dx); Non-sustained ventricular tachycardia (CMS/HCC); Chronic obstructive pulmonary disease, unspecified COPD type (CMS/HCC); Essential hypertension 07/25/2024 Telephone [facility] [address] [place] [address] Oralia Jaramillo MA 07/25/2024 Telephone [facility] [address] [place] [address] Oralia Jaramillo MA 07/25/2024 Telephone [facility] [address] [place] [address] Oralia Jaramillo MA 07/25/2024 Orders Only [address] [address] Milli Gutierrez MA Benign hypertensive heart disease without congestive heart failure 07/03/2024 Travel 07/03/2024 10:30 AM EDT - 07/03/2024 11:30 AM EDT Surgery [facility] [address] [place] [address] Abby Azevedo MD Coronary angiography [[id number]] 07/03/2024 6:43 AM EDT - 07/03/2024 2:04 PM EDT Hospital Encounter [facility] [address] [place] [address] Abby Azevedo MD Chronic heart failure with preserved ejection fraction (CMS/HCC) (Primary Dx); Angina pectoris, unstable (CMS/HCC); Essential hypertension; Atrial flutter, unspecified type (CMS/HCC); Other chest pain Discharge Disposition: Home or Self Care () 06/26/2024 Travel 06/22/2024 Refill [facility] [address] [place] [facility] [place] [address] Milli Gutierrez MA Other chest pain 06/15/2024 Orders Only [facility] [address] [place] [facility] [place] [address] Maria Ines Zamorano MA Angina pectoris, unstable (CMS/HCC) 06/15/2024 Refill [facility] [address] [place] [facility] [place] [address] Oralia Jaramillo MA 06/15/2024 Orders Only [facility] [address] [place] [facility] [place] [address] Maria Ines Zamorano MA Encounter for pre-operative examination; Angina pectoris, unstable (CMS/HCC) 06/15/2024 11:00 AM EDT Office Visit [facility] [address] [place] [facility] [place] [address] Abby Azevedo MD Angina pectoris, unstable (CMS/HCC) (Primary Dx); Coronary artery disease, unspecified vessel or lesion type, unspecified whether angina present, unspecified whether houlton or transplanted heart; Chronic obstructive pulmonary disease, unspecified COPD type (CMS/HCC); NSVT (nonsustained ventricular tachycardia) (CMS/[facility]); Chest pain, unspecified type; Mixed hyperlipidemia; PVC (premature ventricular contraction) from Last 3 Months Allergies Active Allergy Reactions Criticality Noted Date Comments Clopidogrel 12/28/2016 Hydrochlorothiazide 12/28/2016 Exfoliative Dermatitis Penicillins 12/28/2016 Sodium Chloride 04/08/2023 Sulfa (Sulfonamide Antibiotics) Unknown 03/29 Vancomycin 12/28/2016 Medications Medication Sig Dispensed Refills Start Date End Date Status aspirin 81 mg EC tablet Take 81 mg by mouth in the morning. 12/07/2011 Active omeprazole (PriLOSEC) [address] capsule Take 20 mg by mouth before breakfast. 11/14/2013 Active albuterol 90 mcg/actuation inhaler Inhale 2 puffs every 4 (four) hours if needed for shortness of breath. 01/27/2022 Active fluticasone propion-salmeteroL (Advair Diskus) 250-50 mcg/dose diskus inhaler Inhale 1 puff two times daily. 10/14/2022 Active cyclobenzaprine (Flexeril) 10 mg tablet Take 10 mg by mouth if needed in the morning, at noon, and at bedtime for muscle spasms. 09/22/2022 Active cholecalciferol (Vitamin D-3) 50 MCG (2000 UT) tablet Take 2,000 Units by mouth in the morning. Active ipratropium-albuter oL (Duo-Neb) 0.5-2.5 mg/3 mL nebulizer solution Take 3 mL by nebulization 4 times a day. Active magnesium oxide-pyridoxine HCl (Beelith) 362-20 mg tablet Take 1 tablet by mouth in the morning. Active atorvastatin (Lipitor) 80 mg tabletIndications:E ssential hypertension Take 1 tablet (80 mg) by mouth in the morning. 90 tablet 3 01/04/2024 01/03/2025 Active olmesartan (BENIcar) 40 mg tabletIndications:E ssential hypertension Take 1 tablet (40 mg) by mouth once daily as directed. 90 tablet 3 01/04/2024 01/03/2025 Active predniSONE (Deltasone) 10 mg tablet Take 20 mg by mouth in the morning. Active dupilumab (Dupixent Syringe) 100 mg/0.67 mL syringe Inject 300 mg under the skin every 14 (fourteen) days. Active Trelegy Ellipta 100-62.5-25 mcg blister with device Inhale 1 puff in the morning. 05/23/2024 Active furosemide (Lasix) 20 mg tabletIndications:E ssential hypertension Take 1 tablet (20 mg) by mouth every other day. 15 tablet 07/03/2024 Active metoprolol succinate XL (Toprol-XL) 50 mg 24 hr tabletIndications:h ypertension Take 1 tablet (50 mg) by mouth two times daily. Do not crush or chew. 60 tablet 07/03/2024 Active dapagliflozin propanediol (Farxiga) 10 mgIndications:Chron ic heart failure with preserved ejection fraction (CMS/HCC) Take 1 tablet (10 mg) by mouth in the morning. 30 tablet 3 07/03/2024 10/31/2024 Active isosorbide mononitrate ER (Imdur) 60 mg 24 hr tabletIndications:O ther chest pain Take 1 tablet (60 mg) by mouth once daily as directed. Do not crush or chew. 30 tablet 3 07/03/2024 10/31/2024 Active budesonide-glycopyr -formoterol (Breztri Aerosphere) 160-9-4.8 mcg/actuation HFA aerosol inhaler Inhale 160 mcg in the morning. Active Active Problems Problem Noted Date Diagnosed Date CRP elevated 07/26/2024 Elevated WBC count 07/26/2024 Angina pectoris, unstable 06/15/2024 Body mass index (BMI) 35.0-35.9, adult 5 Irregular heartbeat 04/18/2024 Stage 3a chronic kidney disease 04/12/2023 Multiple pulmonary nodules 03/02/202303/02 PVC (premature ventricular contraction) 01/01/20 23 History of tobacco use 12/28/2022 3 Other terminologist (current) 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 3 12/28/2022 Non-sustained ventricular tachycardia 11/17/2022 Assessment & Plan (11/17/2022 2:13 PM EDT): Currently on amiodarone for rhythm control and toprol for rate control for NSVT and frequent PVCs Recent heart cath with non obstructive CAD- no intervention was needed RTC with EP for further management and evaluation. In light of COPD please determine with Dr Cuoghlin if half-way amiodarone if feasible. 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 Hypomagnesemia 10/27/2022 Hyponatremia 10/27/2022 Arrhythmia 10/26/2022 Assessment & Plan (11/17/2022 2:11 PM EDT): Reviewed rhythm strips from Cardiac rehab and normal sinus rhythm, no PVCS noted or VT Chest pain 07/08/2022 Overview (07/08/2022): Added automatically from request for surgery [id number] Former smoker 01/22/2020 Health care maintenance 01/22/2020 Diuretic-induced hypokalemia 01/16/2018 History of acute inferior wall UT 01/13/2018 Bladder prolapse, female, acquired 12/28/2016 Chronic GERD 12/28/2016 COPD (chronic obstructive pulmonary disease) 04/2016 Overview (07/08/2022): Managed by Dr. White. Coronary artery disease invo lving houlton coronary artery of houlton heart without angina pectoris 12/28/2016 Assessment & Plan (11/17/2022 2:12 PM EDT): Coronary artery disease is stable without any concerning symtpoms Continue GDMT- ASA, brilinta, toprol, imdur continue risk factor modifications- heart healthy diet, regular exercise as tolerated and continue all medications. Lower back pain 12/28/2016 Severe obesity (BMI 35.0-39.9) with comorbidity 12/28/2016 Shortness of breath 12/28/2016 Essential hypertension 12/14/2016 Assessment & Plan (11/17/2022 2:12 PM EDT): Hypertension is well controlled Continue all meds Mixed hyperlipidemia 12/14/2016 Resolved Problems Problem Noted Date Diagnosed Date Resolved Date care home current use of inhaled steroid 12/28/2022 12/28/2022 06/29/2023 Social History Tobacco Use Types Packs/Day Years Used Date Smoking Tobacco: Former Cigarettes Smokeless Tobacco: Never Tobacco Cessation:Counseling Given: Not Answered Alcohol Use Standard Drinks/Week Comments Yes 0 (1 standard drink = 0.6 oz pur e alcohol) occaisonal Humiliation, Afraid, Rape, and Kick questionnair e Answer Date Recorded Within the last year, have y ou been afraid of your partner or ex-partner? No 10/26/2022 Emotionally Abused Not on file 10/26/2022 Physically Abused Not on file 10/26/2022 Sexually Abused Not on file 10/26/2022 Overall Financial Resource Strain (CARDIA) Answe r Date Recorded How hard is it for you to pa y for the very basics like food, housing, medical care, and heating? Not very hard 10/26/2022 [place] Safety & Environment Answer Date Rec orded Within the last year, have y ou been afraid of your partner or ex-partner? No 10/26/2022 Emotionally Abused Not on file 10/26/2022 Physically Abused Not on file 10/26/2022 Sexually Abused Not on file 10/26/2022 Physically or Sexually Abused Not on file Transportation Answer Date Recorded In the past 12 months, has l ack of transportation kept you from medical appointments or from getting medications? No 10/26/2022 Lack of Transportation (Non-Medical) Not on file 10/26/2022 Housing Stability Vital Sign Answer Rajiv e Recorded Unable to Pay for Housing in the Last Year Not o n file 10/26/2022 Number of Places Lived in the Last Year Not on f ile 10/26/2022 In the last 12 months, was t here a time when you did not have a steady place to sleep or slept in a long term (including now)? No 10/26/2022 Hunger Vital Sign Answer Date Recorded Within the past 12 months, y ou worried that your food would run out before you got the money to buy more. Sometimes true Ran Out of Food in the Last Year Not on file 10/26/2022 Sex and Gender Information Value Date Recorded Sex Assigned at Female 07/28/2024 10:26 AM EDT Gender Identity Female 07/28/2024 10:26 AM EDT Sexual Orientation Heterosexual or Straight 04/2024 10:26 AM EDT Last Filed Vital Signs Vital Sign Reading Time Taken Comments Blood Pressure 133/74 08/01/2024 10:59 AM EDT Pulse 70 08/01/2024 10:59 AM EDT Temperature 36.6 C (97.9 F) 10/31/2022 8:25 AM EDT Respiratory Rate 13 07/03/2024 1:45 PM EDT Oxygen Saturation 98% 08/01/2024 10:59 AM EDT Inhaled Oxygen Concentration - - Weight 89.8 kg (198 lb) 08/01/2024 10:59 AM EDT Height 160 cm (5' 3 ) 08/01/2024 10:59 AM EDT Body Mass Index 35.07 08/01/2024 10:59 AM EDT Plan of Treatment Not on file Medical Devices Implanted Type Area Spot Welder Body Assembly Device Identifier Shelf Expiration Date Model / Serial / Lot Stent,Synergy Mr 2.50 X 12 - [id number] Implanted:Qty: 1 on 07/14/2022 by Abby Azevedo MD at [facility] Drug Eluting Stent [employer] [id number] 01/22/2023 [id number] / / [id number] Procedures Procedure Name Priority Date/Time Associated Diagnosis Comments RIGHT HEART CATH Routine 07/03/2024 11:0 1 AM EDT Angina pectoris, unstable (CMS/HCC) CORONARY ANGIOGRAPHY Routine 07/03/2024 11:01 AM EDT Angina pectoris, unstable (CMS/HCC) POCT HBO2% Routine 07/03/2024 10:42 AM EDT ECG 12-LEAD Routine 07/03/2024 8:33 AM EDT from Last 3 Months Results * CORONARY ANGIOGRAPHY, RIGHT HEART CATH (07/03/2024 11:01 AM EDT) Anatomical Region Laterality Modality Other Narrative 07/03/2024 11:21 AM EDT Cardiovascular Laboratory Report FINAL IMPRESSIONS: Patent stents in the right coronary artery with mild in-stent restenosis Moderate disease of the left circumflex coronary artery Mild to moderate disease of the left anterior descending coronary artery Normal global left ventricular systolic function by noninvasive imaging Mildly elevated right-sided heart pressures and wedge pressure consistent with biventricular congestion Normal transpulmonary gradient along with elevated wedge suggestive of postcapillary or pulmonary venous hypertension Normal cardiac output/cardiac index RECOMMENDATIONS: Aggressive cardiovascular risk factor modification Optimal medical therapy for coronary artery disease should include aspirin, moderate to high intensity statin therapy, a beta-shyam plus or minus a RAAS inhibitor Guideline directed medical therapy for heart failure with preserved ejection fraction should include an SGLT2 inhibitor plus or minus spironolactone Will check a basic metabolic panel 5 to 7 days after initiation of an SGLT2 inhibitor Consider additional etiologies for her shortness of breath namely pulmonary Follow-up with Dr. Azevedo in the next 1 to 2 months PROCEDURES: Ultrasound-guided access to the right internal jugular vein, right heart catheterization, ultrasound-guided access to the left radial artery, bilateral selective coronary angiography METHODS: After risks, benefits, and alternatives were explained, written informed consent was obtained. The patient was prepped and draped in usual sterile fashion over the right neck and left radial regions. Using 1% lidocaine solution, local infiltration anesthesia was achieved. Using a modified Seldinger technique, a micropuncture kit, and under ultrasound guidance, access to the right internal jugular vein was obtained. A 6 Tongan 11 cm sheath was inserted without difficulty. Right heart catheterization was performed using a Perry catheter via the venous sheath. Pressures were measured in the right atrium, right ventricle, pulmonary artery, and pulmonary capillary wedge positions. Oxygen saturations were obtained and cardiac output/cardiac index was calculated using the modified Aislinn principle. The Perry catheter was removed. The jugular sheath was removed with application of manual pressure to achieve optimal hemostasis. Local infiltration anesthesia was achieved of the left wrist. Using a micropuncture kit, and under ultrasound-guided access of the left radial artery was obtained. A 6 Tongan glide sheath was inserted without difficulty. Bilateral selective coronary angiography was performed using JL4 and JR4 catheters. After reviewing the images, it was elected to conclude the procedure. All catheters were removed. The radial sheath was removed with application of a TR band per protocol to achieve optimal hemostasis. Overall the patient tolerated the procedure well. There were no overt complications. He was to be transferred to the holding area in stable condition. FINDINGS: Hemodynamics: RA 8 RV 38/11, 19 PA 38/10 [27] PCWP 16 TPG 11 AO 142/74 [105] Cardiac output /cardiac index 7.53/3.91 AO sat /PA sat 100%/71% LEFT VENTRICULOGRAPHY: This was not performed; ejection fraction is 59% by prior stress test. CORONARY ARTERIES: Left main coronary artery: This arises from the left coronary cusp and trifurcates into the left anterior descending, ramus intermedius, and left circumflex coronary arteries. It is free of significant stenosis. Left anterior descending coronary artery: This shows luminal irregularities and mild plaque. There is a mid vessel 40% stenosis just prior to a tortuous segment. The diagonal branches show luminal irregularities. Ramus intermedius coronary artery: This is a moderate size vessel with luminal irregularities. Left circumflex coronary artery: This shows luminal irregularities. There is a mid vessel 40 to 50% stenosis. Right coronary artery: This is a dominant vessel arising from the right coronary cusp and giving rise to the posterior descending and posterolateral branches. It shows a long stented segment in the proximal to midportion with mild in-stent restenosis. There are luminal irregularities distally. INDICATIONS: Exertional shortness of breath, unstable angina Coronary Findings Diagnostic Dominance: Right Left Circumflex: There is mild diffuse disease throughout the vessel. Intervention No interventions have been documented. Abby Azevedo MD CV CARDIAC CATH PROC EDURES * (ABNORMAL) POC Hb02% (07/03/2024 10:42 AM EDT) CPYFMD31% 70.5(A) 90 - 95 % QC Pass/Fail Passed QC LOT # [id number] QC Expiration Date SAMPLESITE not listed Blood Venous blood specimen / Unknown 07/03/2024 10:42 AM EDT Narrative Austin Baldwin [place] - 07/04/2024 6:09 AM EDT Picker Operator [id number] Abby Azevedo MD POINT OF CARE TEST E NTER/EDIT ORDERABLES * Electrocardiogram, 12-lead (07/03/2024 8:33 AM EDT) Ventricular Rate 67 BPM GE MUSE Atrial Rate 67 BPM GE MUSE NE Interval 146 ms GE MUSE QRS DURATION 88 ms GE MUSE QT Interval 404 ms GE MUSE QTC CALCULATION(BAZE TT) 426 ms GE MUSE P Iona 65 degrees GE MUSE R-Iona 33 degrees GE MUSE T Wave Iona 45 degrees GE MUSE 07/03/2024 7:56 AM EDT 07/03/2024 9:28 AM EDT Impressions GE MUSE - 07/03/2024 9:28 AM EDT Normal sinus rhythm Normal ECG When compared with ECG of 27-OCT-2022 00:06, Premature ventricular complexes are no longer Present Confirmed by Piter OLIVER SAMER J. ([id number]) on 07/03/2024 9:28:00 AM Narrative Procedure Note Tammy Oliver MD - 07/03/2024 IMPRESSION: Normal sinus rhythm Normal ECG When compared with ECG of 27-OCT-2022 00:06, Premature ventricular complexes are no longer Present Confirmed by Piter OLIVER SAMER J. ([id number]) on 07/03/2024 9:28:00 AM Abby Azevedo MD ECG ORDERABLES GE MUSE from Last 3 Months Advance Directives * Full Code (Latest Code Status on File) Date Activated Date Inactivated Comments 07/03/2024 11:10 AM 07/03/2024 4:05 PM * Full Code Date Activated Date Inactivated Comments 10/27/2022 1:05 AM 10/31/2022 5:46 PM * Full Code Date Activated Date Inactivated Comments 07/14/2022 12:10 PM 07/14/2022 6:57 PM Care Teams Sql Report Analyst Relationship Specialty Start Date End Date Nolvia Jimenez MD [address] [place] [address] PCP - General Nurse Practitioner 06/15/24
--- OUTSIDE RECORDS SUMMARY | 2024-09-03 04:39 | XMS_ITS ---
Author Organization Unknown Patient Care team information Name Category Status Period Participants - - Proposed period not known - - - period not known - Insurance Providers Payer name Policy type / Covera ge type Policy ID Covered green party ID Policy Cline [place] [employer] [place] [employer]
--- OUTSIDE RECORDS SUMMARY | 2024-09-03 04:39 | XMS_ITS | Patient Health Record ---
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 Name Role Phone Nolvia Jimenez CNP Primary Care Provider Unavail able Luis Schumacher Unavailable [phone] Allergies Allergen (clinical drug ingredient) Drug/Non Drug Allergy documented on EMR Reaction Allergy Type Onset Date Status clopidogrel Plavix Unknown Drug Allergy Active hydrochlorothiazide Hydrochlorothiazide shortnes s of breath Drug Allergy Active Substance with sulfonamide structure and antibacterial mechanism of action (substance) Sulfa Antibiotics Unknown Drug Allergy Active Penicillin rash Drug Allergy Active vancomycin Vancomycin Unknown Drug Allergy Active Results Component Value Reference Range Notes CT lung screening low-dose Reviewed date:01/26/2024 06:55:01 AM Interpretation: Performing Lab: Notes/Report: Source Facility: [place] [address] CT Scan Report Signed Patient: CHIARA JUARES MR#: [id number] : 1955 Acct:[id number] Age/Sex: 68 / F ADM Date: 01/24/24 Loc: CARD Attending Dr: Luis Schumacher D.O. Ordering Physician: Luis Schumacher D.O. Date of Service: 01/24/24 Procedure(s): CT lung screening low-dose Accession Number(s): [id number] cc: SHANDA BENTON [place] [address] Patient Name: CHIARA JUARES MRN: [id number] date: 1955 Sex: F Assigned Patient Location: CARD Current Patient Location: Accession/Order Number: [id number] Exam Date: 01/24/2024 15:00 Report Date: 01/26/2024 06:07 At the request of: LUIS SCHUMACHER Procedure: CT lung screening low-dose EXAMINATION: CT lung screening low-dose HISTORY: History Of Nicotine Dependence COMPARISON: CT lung screening 01/20/2023 TECHNIQUE: Axial, Coronal, and Sagittal images were created without the administration of IV contrast material. Dose reduction techniques were achieved by using automated exposure control and/or adjustment of mA and/or kV according to patient size and/or use of iterative reconstruction technique. FINDINGS: LUNGS: Several small sub-5 mm nodules scattered within the lungs; a few are calcified but most are noncalcified. No new nodules, acute infiltrates, or suspicious findings. PLEURA: No mass, effusion, or pneumothorax. VASCULATURE: No abnormality. TEODORO: No mass or pathologic adenopathy. MEDIASTINUM: No mass or pathologic adenopathy. CARDIAC: No enlargement, pericardial thickening, or pericardial effusion. Coronary Artery calcifications: Coronary calcifications are moderate. AORTA: No aneurysm or dissection. CHEST WALL: No mass or axillary adenopathy BONES: No bone lesion or fracture. LIMITED ABDOMEN: No suspicious findings. Limited images of the upper abdomen. OTHER: Negative. CT/CT lung screening low-dose IMPRESSION: 1. Lung-RADS 2- Benign Appearance or Behavior. Nodules with a very low likelihood of becoming a clinically active cancer due to size or lack of growth. Follow-up CT Chest in 1 year. Electronically authenticated by: ROBBIE MATOS Date: 01/26/2024 06:07 Dictated By: Robbie Matos M.D. Signed By: 01/26/24608 DD/ 6 TD/TT: Curam Developer: [place] [address] CT Scan Report Signed Patient: DELVIN JUARES MR#: [id number] : 1955 Acct:[id number] Age/Sex: 68 / F ADM Date: 01/24/24 Loc: CARD Attending Dr: Luis Schumacher D.O. Ordering Physician: Luis Schumacher D.O. Date of Service: 01/24/24 Procedure(s): CT belkys g screening low-dose Accession Number(s): [id number] cc: BENTONSHANDA [place] [address] Patient Name: CHIARA JUARES MRN: [facility]:[id number] date: 1955 Sex: F Assigned Patient Location: CARD Current Patient Location: Accession/Order Numb er: [id number] Exam Date: 15:00 Report Date: 01/26/2024 06:07 At the request of: LUIS SCHUMACHER Procedure: CT lung screening low-dose EXAMINATION: CT lung screening low-dose HISTORY: History Of Nicotine Dependence COMPARISON: CT lung screening 01/20/2023 TECHNIQUE: Axial, Coronal, and Sagittal images were created without the administration of IV contrast material. Dose reduction techniques were achieved by using automated exposure control and/or adjustment of mA and/or kV according to patient size and/ or use of iterative reconstruction technique. FINDINGS: LUNGS: Several small sub-5 mm nodules scattered within the lungs; a few are calcified but most a re noncalcified. No new nodules, acute infiltrates, or suspicious findings. PLEURA: No mass, effusion, or pneumothorax. VASCULATURE: No abnormality. TEODORO: No mass or pathologic adenopathy. MEDIASTINUM: No mass or pathologic adenopathy. CARDIAC: No enlargem ent, pericardial thickening, or pericardial effusion. Coronary Artery calcifications: Coronary calcifications are moderate. AORTA: No aneurysm o r dissection. CHEST WALL: No mass or axillary adenopathy BONES: No bone lesio n or fracture. LIMITED ABDOMEN: No suspicious findings. Limited images of the upper abdomen. OTHER: Negative. C T/CT lung screening low-dose IMPRESSION: 1. Lung-RADS 2- Juan gn Appearance or Behavior. Nodules with a very low likelihood of becomi ng a clinically active cancer due to size or lack of growth. Follow-up CT Chest in 1 year. Electronically authenticated by: ROBBIE MATOS Date: 01/26/2024 06:07 Dictated By: Robbie Matos M.D. Signed By: 01/26/2409 DD/ 6 TD/TT: Curam Developer: RT pulmonary function test Reviewed date:01/26/2024 06:02:20 PM Interpretation: Performing Lab: Notes/Report: Source Facility: [facility]-[address] [place] [address] [place] [address] Respiratory Report Signed Patient: CHIARA JUARES MR#: [id number] : 1955 Acct:[id number] Age/Sex: 68 / F ADM Date: 01/24/24 Loc: CARD Attending Dr: Luis Schumacher D.O. Ordering Physician: Luis Schumacher D.O. Date of Service: 01/24/24 Procedure(s): RT pulmonary function test Accession Number(s): [id number] cc: 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 Findings were considered accurate and reproducible. Both pre- and post-bronchodilator values utilized for spirometry. Spirometry (based on pre-bronchodilator values): -FEV1/FVC: Reduced @ 53% -FEV1: Severely reduced @ 43% -FVC: Reduced @ 61% -There is a positive bronchodilator response in FVC. Lung volumes by plethysmography (based on pre-bronchodilator values): -RV: Increased @ 184% -TLC: Increased @ 123% Diffusion capacity: -DLCO: Moderately-severe reduction @ 55% when corrected for Hb 11g/dL Flow-volume loop: -Severe obstructive pattern Comparison from 01/18/2023: -FEV1 relatively unchanged from 41% -TLC: relatively unchanged from 130% -DLCO: Mild decline from 61% Impressions: -Spirometry suggests severe obstruction. There is a positive bronchodilator response. An elevated RV and TLC suggest air trapping and hyperinflation respectively. There is a moderately reduced diffusion capacity. Overall study suggests COPD with a bronchodilator response or asthma-COPD overlap. Clinical correlation required. Electronically Signed On 01-26-2024 17:53:48 EDT by Luis Schumacher Dictated By: Luis Schumacher D.O. Signed By: 01/26/24 1754 DD/ 1305 TD/TT: Curam Developer: [place] [address] Respiratory Report Signed Patient: DELVIN JUARES MR#: [id number] : 1955 Acct:[id number] Age/Sex: 68 / F ADM Date: 01/24/24 Loc: CARD Attending Dr: Luis Schumacher D.O. Ordering Physician: Luis Schumacher D.O. Date of Service: 01/24/24 Procedure(s): RT pulmonary function test Accession Number(s): [id number] cc: 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 Findings were considered accu rate and reproducible. Both pre- and post-bronchodilator values utilized for spirometry. Spirometry (based on pre-bronchodilator values): -FEV1/FVC: Reduced @ 53% -FEV1: Severely redu latonya @ 43% -FVC: Reduced @ 61% -There is a positive bronchodilator response in FVC. Lung volumes by plethysmography (based on pre-bronchodilator values): -RV: Increased @ 184% -TLC: Increased @ 123% Diffusion capacity: -DLCO: Moderately-se neil reduction @ 55% when corrected for Hb 11g/dL Flow-volume loop: -Severe obstructive pattern Comparison from 01/18/2023: -FEV1 relatively unchanged from 41% -TLC: relatively unchanged from 130% -DLCO: Mild decline from 61% Impressions: -Spirometry suggests severe obstruction. There is a positive bronchodilator response. An elevate d RV and TLC suggest air trapping and hyperinflation respectively. There is a moderately reduced diffusion capacity. Overall study suggests COPD with a bronchodilator response or asthma-COPD overlap. Clinical correlation required. Electronically Ivon d On 01-26-2024 17:53:48 EDT by Luis Schumacher Dictated By: Tam Schumacher D.O. Signed By: 01/26/24 3468 DD/ 1305 TD/TT: Curam Developer: CT Chest Low Dose for Screen ing* Reviewed date:01/26/2024 06:53:52 AM Interpretation: Performing Lab: Notes/Report: HEMOGLOBIN Reviewed date:01/25/2024 07:12:59 AM Interpretation: Performing Lab: Notes/Report: [facility] , Hemoglobin 11.0 12.0-16.0 g/dL Performing Lab: see note ML - [facility] Reason For Referral Reason Palliative care serv ices for severe COPD Diagnosis 1 COPD (chronic obstru ctive pulmonary disease) (J44.9) Referral Organization [facility] Referring Provider First Name Luis Referring Provider Last Name Ced Referring Provider Speciality Pulmonolog y Referred Provider Specialty Palliative C are General Notes Chandu Rodriguez 05/04 08:23:43 AM >Referral form and clinicals faxed to [facility]., Chandu Rodriguez 05/11/2024 11:07:35 AM >Per Patient-Jayesh is out of network for the patient. Patient states she spoke with Jayesh. Patient states she is going to hold off on the Palliative Care at this time. Referral Closed. Thank You! Referral Priority Routine Medications Medication SIG (Take, Route, Frequency, Duration) Notes Start Date End Date Status Furosemide 20 MG 1 tablet Orally ever y other day for 90 days Active Ventolin HFA 108 (90 Base) MCG/ACT 2 puffs as needed for SOB Inhalation Q4H for 90 days Dispense #3 inhalers 08/23/2024 Active predniSONE 10 MG 1 tablet Orally Once a day for 90 days Take with food 05/03/2024 Active Isosorbide Mononitrate ER 60 MG 1 tablet in the morning Orally Once a day for 30 days Active Trelegy Ellipta 100-62.5-25 MCG/ACT 1 puff Inhalation Once a day for 90 days Rinse after use ; Dispense #3 inhalers 05/23/2024 Active Magnesium Oxide -Mg Supplement 400 (240 Mg) MG TAKE 1 TABLET BY MOUTH IN THE MORNING then TAKE 1 TABLET BY MOUTH AT BEDTIME Oral for 15 Days Active Aspirin 81 MG 1 tablet Orally Once a day Active Metoprolol Tartrate 50 MG TAKE 1 TABLET BY MOUTH TWICE DAILY Oral for 90 Days Active Atorvastatin Calcium 80 MG TAKE 1 TABLET BY MOUTH DAILY Oral for 90 Days Active Olmesartan Medoxomil 40 MG 1 tablet Oral ly Once a day for 90 days Active Omeprazole 20 MG 1 capsule 30 minutes before morning meal Orally Once a day Active Cyclobenzaprine HCl 10 MG TAKE 1 TABLET BY MOUTH THREE TIMES DAILY NEEDED Oral for 30 days Active Dupixent 300 MG/2ML as directed Subcutaneous Active Farxiga 10 MG 1 tablet Orally Once a day for 30 days Active Vitamin D 50 MCG (1999 UT) 1 tablet Oral ly Once a day Active guaiFENesin ER 600 MG 1 tablet as needed Orally every 12 hrs Active Ipratropium-Albuterol 0.5-2.5 (3) MG/3ML 3mL Inhalation QID for 90 days Dispense 360 ampules 08/11/2023 Active Immunizations Vaccine Route Administration Date Status Comme nts SARS-COV-2 (COVID 19 Tiago 0.5mL) Sorin and Sorin Unknown 09/01/2020 Administered Social History Tobacco Use: Social History Observation Description Date Details (start date - stop date) Former Smoker NA - NA Tobacco Control (Standard) Question Answer Notes Tobacco use: Former smoker Additional Findings: Tobacco non-user Ex-heavy c igarette smoker (20-30/day) Problems Problem Type SNOMED Code ICD Code Onset Dates Problem Status W/U Status Risk Notes Problem 378366415 Chronic obstructive pulmonary disease, unspecified (J44.9) Active confirmed Problem 723188863 Obesity, unspecified (E66.9) Active confirmed Problem Long-term current use of inhaled steroid (209876454) 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 (Z79.51) Active confirmed Problem [id number] 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 (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 of systemic steroids (Z79.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 Problem COPD - Chronic obstructive pulmonary disease (96440787) COPD (chronic obstructive pulmonary disease) (J44.9) Active confirmed Problem Coronary artery disease (18029980) CAD (coronary artery disease) (I25.10) Active confirmed Problem Multiple pulmonary nodules (916479178) Multiple pulmonary nodules (R91.8) Active confirmed Problem Ex-tobacco user (finding) (229654288) History of tobacco abuse (Z87.89) Active confirmed Problem 418622305 Body mass index [BMI] 35.0-35.9, adult (Z68.35) Active confirmed Vital Signs Heart Rate 74 /min 08/23/2024 Temperature 97.1 degrees Fahrenheit 08/23/2024 Respiratory Rate 18 /min 08/23/2024 Oximetry 92 % 08/23/2024 Blood pressure diastolic 89 mm Hg 08/23/2024 Height 63 in 08/23/2024 Blood pressure systolic 147 mm Hg 08/23/2024 Weight 198.6 lbs 08/23/2024 BMI 35.18 kg/m2 08/23/2024 Encounters Encounter Location Date Provider Diagnosis Pulmonary Medicine [address] [address] 02/01/2024 Luis Schumacher COPD (chronic obstructive pulmonary disease) J44.9 ; Multiple pulmonary nodules R91.8 ; History of tobacco abuse Z. 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 [place] [address] 05/23/2024 Luis [facility] COPD (chronic obstructive pulmonary disease) J44.9 [facility] [address] [place] [address] 01/04/2024 [facility] [address] [place] [address] 01/24/2024 [facility] [address] [place] [address] 05/11/2024 [facility] [address] [place] [address] 05/17/2024 [facility] Assessments Encounter Date Diagnosis (ICD Code) Assessment Notes Treatment Notes Treatment Clinical Notes Section Notes 02/01/2024 COPD (chronic obstructive pulmonary disease) (ICD-10 - J44.9) Her breathing continues to decline despite attempting to maximize treatment. She is currently on prednisone daily. Trelegy was better than Advair 250, but it was too expensive and she remains on generic Advair. Assess patient for Matheny valves. Her PFT shows FEV1 of 43%, so she meets that criterion. However, her RV is 123%, less than the minimum 150%. She would also need to lose a few pounds as the recommended BMI is less than 35. Since her last visit with the patient, 2 new pulmonary medications have been released for COPD: Ohtuvayre (a novel PDE3/PDE4 inhibitor) and Dupixent for eosinophil genotype & prednisone dependent. We discussed pros and cons of each. Ohtuvayre is administered via nebulizer on top of her other medications. Dupixent is an injection. The patient has prednisone dependent COPD. Last eosinophils checked were 01/20/2023 at 5.2%/absolute count 300. She would meet the criteria for Dupixent. Her eosinophil count is just over 1-year-old; The issue with rechecking a CBC with differential at this time is that prednisone can depress eosinophil counts and therefore may be artificially low. The patient voiced she would like to proceed with Dupixent. Initial paperwork was prepared. The paperwork will be sent to the company to see about affordability. If she is not able to get Dupixent, even with patient assistance if needed, the next step will be proceeding with Ohtuvayre. 02/01/2024 Multiple pulmonary nodules (ICD-10 - R91.8) LDCT 01/24/2024 compared to01/20/2023 Continues to show stability of the pulmonary nodules, several calcified and others noncalcified. There is small size and unlikely to be neoplasm-this would be most consistent with granulomatous disease. 05/03/2024 COPD (chronic obstructive pulmonary disease) (ICD-10 - J44.9) Remains symptomatic, no improvement. Remains on Advair b/c Trelegy was too expensive. Dupixent is too expensive. Prednisone 5mg did not help. There are few options for her at this time. I reviewed some with her: -Referral to interventional pulmonology for endobronchial valves - I do not think she will be a candidate with her RV @ 123% and is a tad over the BMI 35 treshold, but now I stated I would have the interventional wire hanger make that determination. -Pulmonary rehabilitation: She is already participating in phase 3. -Increase prednisone from 5 to 10mg, as 5mg was ineffective -Look into the new Medicare insurance pricing program She states she is going to look into the Medicare pricing program, which may help reduce her overall costs. If she can afford that, she voiced she wants to go back on Trelegy. She stated she did not want to go to another wire hanger, she wants to stay here with me. I explained that it is only for the procedure - I will still be her local wire hanger. She did not want to persue endobronchial valves at this time. She stated for now that she would like to increase the prednisone from 5 to 10mg/day. She voiced understanding of the long-term adverse effects of chronic steroid therapy. She is depressed. She is having difficulty coping with the transition of not being able to do the activities that previously brought her pleasure. I strongly recommended referral to palliative care to assist. After discussing palliative care, the patient voiced she would like a referral. F/U 3 months. If she by some chance is able to afford Trelegy and/or Dupixent, will have her start those medications in the meantime. 05/03/2024 Multiple pulmonary nodules (ICD-10 - R91.8) LDCT 01/24/2024 compared to01/20/2023 Continues to show stability of the pulmonary nodules, several calcified and others noncalcified. She went to ER on 04/18/[address] which showed no change in the nodules. 08/01/2024 COPD (chronic obstructive pulmonary disease) (ICD-10 [...] I offered to refer her to either [facility] (e.g. Dr. Heard) or (e.g. Dr. Siddiqui), [...] nodule 04/18/2024 as far back as 01/20/2023. 05/23/2024 COPD (chronic obstructive pulmonary disease) (ICD-10 [...] reactions were noted. Post Injection Vitals taken. [facility]:[id number] 0. Lot#[id number]. Exp:11/26/2024. Patient was advised to self administer Dupixent in 2 weeks at home. All questions and concerns answered with the patient. Chandu Rodriguez CMA. 08/23/2024 COPD (chronic obstructive pulmonary disease) (ICD-10 [...] LDCT 01/24/2024 - RADS-2. LDCT due 12/2024. 05/03/2024 History of tobacco abuse (ICD-10 - Z87.891) 1ppd x 50 years, quit 2017 LDCT 01/24/2024 - RADS-2. LDCT due 12/2024. 02/01/2024 History of tobacco abuse (ICD-10 - Z87.891) 1ppd x 50 years, quit 2016 LDCT 01/24/2024 - RADS-2. LDCT due 12/2024. 02/01/2024 Encounter for screening for malignant neoplasm of respiratory organs (ICD-10 - Z12.2) Low-dose CT (LDCT) was recommended for lung cancer screening. The patient meets criteria including age 50-77, a smoking history of at least 20 pack-years, is currently smoking or has ceased smoking within the past 15 years, and has no signs or symptoms of lung cancer. Shared decision making performed with the patient. After LDCT has been completed, will review report and/or imaging and provide appropriate recommendations for the patient, including additional follow up if needed. Patient was counseled on smoking cessation/continued tobacco abstinence. LDCT due 12/2024. 05/03/2024 CAD (coronary artery disease) (ICD-10 - I25.10) F/U with [facility] Cardiology. 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 08/23/2024 History of tobacco abuse (ICD-10 - Z87.891) 1ppd x 50 years, quit 2017 LDCT 01/24/2024 - RADS-2. LDCT due 12/2024. 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 08/01/2024 longterm (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 of inhaled steroids (ICD-10 - Z79.51) Patient was counseled to rinse & gargle with water after inhaled corticosteroid use. 05/03/2024 longterm (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 of inhaled steroids (ICD-10 - Z79.51) Patient was counseled to rinse & gargle with water after inhaled corticosteroid use. 02/01/2024 CAD (coronary artery disease) (ICD-10 - I25.10) F/U with [facility] Cardiology. 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 05/03/2024 Obesity, unspecified (ICD-10 - E66.9) Patient's weight is inducing a restrictive pulmonary physiology. Weight loss indicated: Decrease calories, increase activity. 08/01/2024 Obesity, unspecified (ICD-10 - E66.9) Patient's weight is inducing a restrictive pulmonary physiology. Weight loss indicated: Decrease calories, increase activity. 08/23/2024 longterm (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 of inhaled steroids (ICD-10 - Z79.51) Patient was counseled to rinse & gargle with water after inhaled corticosteroid use. 08/23/2024 Obesity, unspecified (ICD-10 - E66.9) Patient's weight is inducing a restrictive pulmonary physiology. Weight loss indicated: Decrease calories, increase activity. 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 02/01/2024 Obesity, unspecified (ICD-10 - E66.9) Patient's weight is inducing a restrictive pulmonary physiology. Weight loss indicated: Decrease calories, increase activity. 02/01/2024 Body mass index [BMI] 35.0-35.9, adult (ICD-10 - Z68.35) 02/01/2024 Other 05/03/2024 Other 08/01/2024 Other Plan Of Treatment Next Appt Details Provider Name:Luis Schumacher, 11/22/2024 11:30:00 AM, [address] [place], [address], Insurance Providers Payer Name Payer Address Payer Phone Subscriber Number Group Number Insured Name Patient Relationship to Insured Coverage Start Date Coverage End Date [employer] [address] [place] [phone] [id number] [facility] Chiara Juares Self - patient is the insured Medications Administered Medication Instructions Date of Administration Dosage Notes Dupixent 05/23/2024 300 mg Patient rian t the medication with her to the office today.Chandu Rodriguez 05/23/2024 11:35:11 AM EST > Medical (General) History Medical History History ICD Code COPD (chronic obstructive pulmonary dise ase) J44.9 CAD (coronary artery disease) I25.10 HTN (hypertension) I10 HLD (hyperlipidemia) E78.5 Multiple pulmonary nodules R91.8 SIADH (syndrome of inappropriate ADH pro duction) E22.2 History of tobacco abuse Z87.891 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
--- OUTSIDE RECORDS SUMMARY | 2024-09-03 04:39 | XMS_ITS | CCD ---
Author Organization [facility] Care Team Providers Care Linux Network Administrator Name Role Phone Jackelyn Guillory Unavailable JACKELYN [...] Care Unavailable SAMSA ., LUIS Attending Unavailable CHEBANSE, DR TIMOTHY Chandler Consulting Unavailable HOUSE, DR CASTILLO Primary Care Unavailable SAMSA ., LUIS Admitting Unavailable SAMSA ., LUIS Consulting Unavailable HOUSE, DR CASTILLO Admitting Unavailable HOUSE, DR CASTILLO Primary Care Unavailable BLODGETT, DR CASTILLO Consulting Unavailable HOUSE, DR CASTILLO Attending Unavailable BAKHOUS, MARIOIZ Consulting Unavailable BAKHUMBERTOS, JACKELYN Attending Unavailable BAKHUMBERTOS, AZIZ Admitting Unavailable HOUSE, DR CASTILLO [facility] Consulting Unavailable [facility], DR HUANG Attending Unavailable HOUSE, DR CASTILLO [facility] Admitting Unavailable SAMSA ., LUIS Consulting Unavailable SAMSA ., LUIS Attending Unavailable SAMSA ., LUIS Admitting Unavailable HOUSE, DR CASTILLO Primary Care Unavailable HOUSE, DR CASTILLO Consulting Unavailable SAMSA ., LUIS Consulting Unavailable MD Jackelyn Guillory Attending Provider [phone] MD Jackelyn Guillory Referring Provider Cheng, GATE CUTTER-C Argelia N Primary Care Provid er Ric COTE, Altamirano Unavailable Trace Kelly MD Primary Care Provider Skylar GATE CUTTER, Argelia Unavailable [phone] Trace Kelly MD Primary Care Provider Skylar GATE CUTTER, Argelia Unavailable [phone] Cheng GATE CUTTER, Argelia Unavailable ARGELIA CHENG Attending Unavailabl e SKYLAR, ARGELIA Attending Unavailcorinna e NOLVIA JIMENEZ Attending Unavailable SKYLAR, ARGELIA Attending Unavailcorinna e Nolvia Jimenez Attending Provider XANDER MUSTAFA Attending Unavailable [facility], [facility]AB Attending Unavailable [facility], EHAB Attending Unavailable [facility], [facility] Admitting Unavailable [facility], [facility] Attending Unavailable [facility] Referring Unavailable XANDER MUSTAFA Attending Unavailable XANDER MUSTAFA Attending Unavailable Nolvia Jimenez Attending Unavailable Nolvia Jimenez Admitting Unavailable Argelia Cheng Primary Care Unavaila ble Bakhous, Aziz Admitting Unavailable Bakhous, Aziz Attending Unavailable Bakhous, Aziz Referring Unavailable Allergies Allergy Classification Reported Allergen(s) Allergy Type Date of Onset Reaction(s) Facility (20 sources) clopidogrel; Translations: [CLOPIDOGREL] Drug Allergy [facility] (7 sources) hydroCHLOROthiazide; Translations: [HYDROCHLOROTHIAZIDE] Drug Allergy rash [facility] (3 sources) Penicillin; Translations: [penicillin] Drug Allergy [facility] (20 sources) Vancomycin; Translations: [VANCOMYCIN] Drug Allergy [facility] (2 sources) Substance with sulfonamide structure and antibacterial mechanism of action (substance) Drug allergy Unknown [facility] Other (1 source) clopidogrel Drug Allergy [facility] (1 source) hydroCHLOROthiazide Drug Allergy [facility] (1 source) Vancomycin Drug Allergy [facility] (20 sources) Penicillins; Translations: [PENICILLINS] Allergy to substance 017 hives [facility] (6 sources) Sulfonamides (Antibiotic); Translations: [SULFA (SULFONAMIDE ANTIBIOTICS)] Allergy to substance Unknown Reaction [facility] (20 sources) hydroCHLOROthiazide Drug Allergy [facility] (20 sources) Sodium Chloride; Translations: [SODIUM CHLORIDE] Drug Allergy [facility] (20 sources) Sulfacetamide Drug Allergy [facility] (1 source) clopidogrel Drug Allergy [facility] (1 source) hydroCHLOROthiazide Drug Allergy [facility] (1 source) Vancomycin Drug Allergy [facility] Repository Medications Current Medications Medication Drug Class(es) Dates Sig (Normalized) Sig (Original) [id number] actuat albuterol 0.09 mg/actuat metered dose [...] 1 mL by inhalation every six hours as needed Ipratropium-Albuterol 0.5 mg-3 mg(2.5 mg base)/3 mL solution for nebulization Active 3 ML INHALATION Every 6 hours as needed November 16, 2023 12:00am ipratropium-albu terol (Duo-Neb) 0.5-2.5 mg/3 mL nebulizer solution Take 3 mL by nebulization every 6 (six) hours Active aspirin 81 mg delayed release oral tablet (20 sources) Platelet Aggregation Inhibitor, Nonsteroidal Anti-inflammatory Drug Start: 11-16-2023 take 1 tablet by mouth once daily Aspirin 81 mg tablet,delayed release (DR/EC) Active 81 MG PO Daily November 16, 2023 12:00am atorvastatin 80 mg oral tablet (20 sources) HMG-CoA Reductase Inhibitor Start: 10-14-2023 End: 09-30-2024 take 1 tablet by mouth once daily atorvastatin (Lipitor) 80 MG tablet Indications: Other hyperlipidemia Take 1 tablet (80 mg) by mouth Daily 90 tablet 1 04/03/2024 09/30/2024 Active take 1 tablet by rebecca th every twenty-four hours Atorvastatin Calcium 80 MG 1 tablet Oral ly Once a day Active cholecalciferol 0.05 mg oral capsule (20 sources) Vitamin D Start: 07-25-2024 take 1 capsule by mouth once daily Cholecalciferol (Vitamin D3) 50 mcg (2,000 unit) capsule Active 50 MCG PO Daily July 25, 2024 12:00am Start: 01-18-2024 take 1 tablet by rebecca th once daily cholecalciferol (Vitamin D-3) 25 MCG [...] Active cyclobenzaprine hydrochloride 10 mg oral tablet (20 sources) Muscle Relaxant Start: 07-25-2024 take 5 mg by mouth every six hours as needed Cyclobenzaprine 10 mg tablet Active 5 MG PO Every 6 hours as needed July 25, 2024 12:00am Start: 06-08-2024 End: 06-23-2024 take 0.5 tablet by mouth three times daily as needed for muscle spasms cyclobenzaprine (Flexeril) 10 MG tablet Indications: Chronic low back pain, unspecified back pain laterality, unspecified whether sciatica present Take 0.5 tablets (5 mg) by mouth 3 (three) times a day as needed for muscle spasms for up to 15 days 45 tablet 1 06/08/2024 Active End: 06-08-2024 take 5 mg by mouth three times daily as needed for muscle spasms cyclobenzaprine (Flexeril) 10 MG tablet Take 5 mg by mouth 3 (three) times a day as needed for muscle spasms 06/08/2024 Discontinued (Reorder) dapagliflozin 10 mg oral tablet (2 sources) Sodium-Glucose Cotransporter 2 Inhibitor Start: 07-25-2024 take 1 tablet by mouth once daily Dapagliflozin Propanediol (Farxiga) 10 mg tablet Active 10 MG PO Daily July 25, 2024 12:00am 2 ml dupilumab 150 mg/ml auto-injector (11 sources) Interleukin-4 Receptor alpha Antagonist Dupilumab (Dupixent) 300 MG/2ML solution auto-injector as directed Subcutaneous Active Dupilumab (2 sources) Start: 07-25-2024 Dupilumab (Dupixent Syringe) 100 mg/0.67 mL syringe Active 300 MG SUBCUT EVERY 2 WEEKS July 25, 2024 12:00am 30 actuat fluticasone furoate 0.1 mg/actuat / umeclidinium 0.0625 mg/actuat / vilanterol 0.025 mg/actuat dry powder inhaler (11 sources) Anticholinergic, Corticosteroid, beta2-Adrenergic Agonist Start: 05-23-2024 take 1 puff(s) by inhalation once daily Trelegy Ellipta 100-62.5-25 MCG/ACT aerosol powder Inhale 1 puff 1 (one) time each day at the same time 05/23/2024 Active furosemide 20 mg oral tablet (20 sources) Loop Diuretic Start: 02-08-2024 Furosemide 20 mg tablet Active 20 MG PO Every 48 hours February 08, 2024 2:49pm Start: 11-16-2023 End: 02-08-2024 take 1 tablet by mouth once daily Furosemide 20 mg tablet Discontinued 20 MG PO Daily November 16, 2023 12:00am February 08, 2024 2:50pm take 1 tablet by rebecca th every [...] mouth Daily 04/20/2024 Active Start: 11-16-2023 End: 07-25-2024 take 1 tablet by mouth once daily, then take 1 tablet by mouth every twenty-four hours Isosorbide Mononitrate 30 mg tablet extended release 24 hr Discontinued 30 MG PO Daily November 16, 2023 12:00am July 25, 2024 1:39pm Magnesium (17 sources) take 200 mg by mouth in the morning MAGNESIUM PO Take 200 mg by mouth in the morning. Active take 1 tablet by mouth twice ruslan ly Magnesium 250 MG 1 tablet with a meal Orally TWICE A DAY Active magnesium oxide 400 mg oral tablet (5 sources) Start: 11-16-2023 take 1 tablet by mouth twice daily Magnesium Oxide 400 mg (241.3 mg magnesium) tablet Active 400 MG PO Twice daily November 16, 2023 12:00am take 1 tablet by rebecca th every twelve hours Magnesium Oxide 400 MG 1 TABLET Orally TWICE A DAY Active 24 hr metoprolol succinate 50 mg extended release oral tablet (20 sources) beta-Adrenergic Fernando Start: 07-25-2024 take 1 tablet by mouth every twenty-four hours Metoprolol Succinate 50 mg tablet extended release 24 hr Active MG PO July 25, 2024 12:00am Start: 05-31-2024 take 1 tablet by rebecca th in the morning metoprolol tartrate (Lopressor) 50 MG tablet Take 50 mg by mouth in the morning and 50 mg before bedtime. 05/31/2024 Active Start: 02-08-2024 End: 07-25-2024 take 2 tablets by mouth once daily Metoprolol Succinate 100 mg tablet extended release 24 hr Discontinued 50 MG PO Daily February 08, 2024 2:50pm July 25, 2024 1:40pm Start: 01-17-2024 End: 04-18-2024 take 0.5 tablet by mouth once daily metoprolol succinate XL (Toprol-XL) 100 MG 24 hr tablet Take 0.5 tablets (50 mg) by mouth Daily Do not crush or chew. 01/17/2024 04/18/2024 Discontinued Start: 11-16-2023 End: 02-08-2024 take 1 tablet by mouth once daily Metoprolol Succinate 100 mg tablet extended release 24 hr Discontinued 100 MG PO Daily November 16, 2023 12:00am February 08, 2024 2:50pm End: 06-08-2024 take 1 tablet by mouth [...] Angiotensin 2 Receptor Fernando Start: 11-16-2023 take 1 tablet by mouth once daily Olmesartan 40 mg tablet Active 40 MG PO Daily November 16, 2023 12:00am omeprazole 20 mg delayed release oral capsule (20 sources) Proton Pump Inhibitor Start: 11-16-2023 take 1 capsule by mouth once daily Omeprazole 20 mg capsule,delayed release(DR/EC) Active 20 MG PO Daily November 16, [...] Orally Once a day Active predniSONE 10 mg oral tablet (20 sources) Start: 06-07-2024 predniSONE (De ltasone) 10 MG tablet 06/07/2024 Active Start: 11-16-2023 End: 07-25-2024 take 1 tablet by mouth once Prednisone 5 mg tablet Dis continued 5 MG PO Once November 16, 2023 12:00am July 25, 2024 1:38pm 12 hr ranolazine 500 mg extended release oral tablet (11 sources) Anti-anginal Start: 05-23-2024 End: 05-23-2025 take [...] Orally ONCE A DAY Active Fluticasone Propion-Salmeterol (20 sources) Corticosteroid, beta2-Adrenergic Agonist Start: 11-16-2023 End: 07-25-2024 Fluticasone Propion-Salmeterol (Advair Diskus) 250-50 mcg/dose blister with device Discontinued 1 INH INHALATION Twice daily November 16, 2023 12:00am July 25, 2024 1:41pm Start: 11-16-2023 Fluticasone Pr opion-Salmeterol (Advair Diskus) 250-50 mcg/dose blister with device [...] 1 puff Inhalation Twice a day Active ipratropium bromide 0.2 mg/ml [...] in the morning. 06/08/2024 Discontinued (Therapy completed) prasugrel 10 mg oral tablet (9 sources) P2Y12 Platelet Inhibitor Start: 11-16-2023 End: 02-08-2024 take 1 tablet by mouth once daily Prasugrel Hcl 10 mg tablet Discontinued 10 MG PO Daily November 16, 2023 12:00am February 08, 2024 2:49pm Problems Active Problems Problem Classification Problem Date Documented Date Episodic/Chronic Cardiac dysrhythmias (20 sources) Irregular heart beat; Translations: [Cardiac arrhythmia, [...] [Chronic obstructive lung disease] Onset: 12-28-2016 Chronic Congestive heart failure; nonhypertensive (2 sources) Chronic diastolic (congestive) heart failure; Translations: [Chronic diastolic (congestive) heart failure] Onset: 07-03-2024 Chronic Coronary atherosclerosis and other heart disease (20 sources) Atherosclerotic heart disease of [place] coronary artery without angina pectoris; Translations: [Coronary arteriosclerosis] Onset: 12-28-2016 Chronic Deficiency and other anemia (5 sources) Anemia, unspecified; Translations: [Anemia, unspecified] Episodic Deficiency and other anemia (4 sources) Anemia; Translations: [Anemia, unspecified] 11-13-2023 Episodic Diseases of white blood cells (7 sources) Leukocytosis; Translations: [Elevated white blood cell count, unspecified] Onset: 07-26-2024 07-26-2024 Chronic Disorders of lipid metabolism (20 sources) Hyperlipidemia; Translations: [Other hyperlipidemia] Onset: 10-27-2022 Resolved: 06-08-2024 04-12-2023 Chronic Essential hypertension (20 sources) Essential hypertension; Translations: [Essential (primary) hypertension] Onset: 12-14-2016 Resolved: 06-08-2024 04-12-2023 Chronic Hypertension with complications and secondary hypertension (19 sources) Hypertensive renal disease; Translations: [Hypertensive chronic kidney disease with stage 1 through stage 4 chronic kidney disease, or unspecified chronic kidney disease] Onset: 01-08-2022 Chronic Nonspecific chest pain (4 sources) Other chest pain; Translations: [Chest pain, unspecified] Onset: 10-30-2022 Episodic Nutritional deficiencies (10 sources) Vitamin D deficiency; Translations: [Vitamin D deficiency, unspecified] Chronic Other endocrine disorders (2 sources) Hyperparathyroidism; Translations: [Hyperparathyroidism, unspecified] 07-25-2024 Chronic Other endocrine disorders (2 sources) Hyperparathyroidism, unspecified; Translations: [Hyperparathyroidism, unspecified] 07-25-2024 Chronic Other nutritional; endocrine; and metabolic disorders (20 sources) Hypomagnesemia; Translations: [Hypomagnesemia] Onset: 10-27-2022 11-13-2023 Chronic Other nutritional; endocrine; and metabolic disorders (5 sources) Hypomagnesemia; 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 Other nutritional; endocrine; and metabolic disorders (13 sources) Obesity caused by energy imbalance; Translations: [Morbid (severe) obesity due to excess calories] Onset: 06-08-2024 06-08-2024 Chronic Other nutritional; endocrine; and metabolic disorders (13 sources) Body mass index 30+ - obesity; Translations: [Body mass index (BMI) 35.0-35.9, adult] Onset: 06-08-2024 06-08-2024 Chronic Other nutritional; endocrine; and metabolic disorders (5 sources) Hyperuricemia without signs of inflammatory arthritis and tophaceous disease; Translations: [Other abnormal blood chemistry] Episodic Other nutritional; endocrine; and metabolic disorders (4 sources) Hyperuricemia; Translations: [Hyperuricemia without signs of inflammatory arthritis and tophaceous disease] 11-13-2023 Episodic Other screening for suspected conditions (not mental disorders or infectious disease) (4 sources) Elevated C-reactive protein; Translations: [Elevated C-reactive protein (CRP)] Onset: 07-26-2024 07-26-2024 Episodic Unclassified (1 source) Other ventricular tachycardia; [...] Spondylosis; intervertebral disc disorders; other back problems (20 sources) Low back pain; Translations: [Lower back pain] Onset: 12-28-2016 04-12-2023 Episodic Unclassified (1 source) Other ventricular tachycardia; Translations: [Other ventricular tachycardia] Onset: 08-01-2024 Results Test Name Value Interpretation Reference Range Facility ALL CBC WITH AUTO DIFFon BASOPHILS ABSOLUTE AUTO 0.1 [facility] Basophils/100 WBC (Bld) 0.8 % 0.2 - 2.0 % [facility] Eosinophils/100 WBC (Bld) 0.9 % 0.9 - 7.0 % [facility] Erythrocyte distribution width (RBC) [Ratio] 14.1 % 11.0 - 15.0 % [facility] Hematocrit (Bld) [Volume fraction] 38.4 % 36.0 - 48.0 % [facility] Hemoglobin (Bld) [Mass/Vol] 12.4 g/dL 12.0 - 16.0 g/dL [facility] IMMATURE GRANULOCYTES ABS AUTO 0.07 High [facility] Immature granulocytes/100 WBC (Bld) 0.7 % High 0.0 - 0.5 % [facility] Interpretation and review of laboratory results Abnormal [facility] LYMPHOCYTES ABSOLUTE AUTO 2.1 [facility] Lymphocytes/100 WBC (Bld) 19.2 % Low 20.5 - 60.0 % [facility] MCH (RBC) [Entitic mass] 31.6 pg 26.7 - 34.0 pg [facility] (RBC) [Mass/Vol] 32.3 g/dL 29.9 - 35.2 g/dL [facility] MCV (RBC) [Entitic vol] 97.7 fL 81.0 - 99.0 fL [facility] MONOCYTES ABSOLUTE AUTO 0.9 High [facility] Monocytes/100 WBC (Bld) 8.2 % 1.7 - 12.0 % [facility] NEUTROPHILS ABSOLUTE AUTO 7.5 High [facility] Neutrophils/100 WBC (Bld) 70.2 % 43.0 - 75.0 % [facility] Platelet mean volume (Bld) [Entitic vol] 9 fL Low 9.5 - 13.5 fL [facility] E[facility] # [facility].1 [facility] PLT 370 [facility] RBC 3.93 Low [facility] WBC 10.7 [facility] Visiton 08-01-2024 Follow-up visit [id number] Susana Juares 1955 F Date Provider Department Center 08/01/2024 [id number] AZEVEDO CARD Deion Garcia Family History Problem Relation Age of Onset Stroke Mother Kidney disease Father Coronary artery disease Paternal Grandfather Family Status - Relation Status Age at Mother Father Paternal Grandfather Level of Service:98929 ID OFFICE/OUTPATIENT ESTABLISHED LOW MDM 20 MIN Normal [facility] ALL CBC WITH AUTO DIFFon BASOPHILS ABSOLUTE AUTO 0.1 [facility] Basophils/100 WBC (Bld) 0.5 % 0.2 - 2.0 % [facility] Eosinophils/100 WBC (Bld) 0.3 % Low 0.9 - 7.0 % [facility] Erythrocyte distribution width (RBC) [Ratio] 14.6 % 11.0 - 15.0 % [facility] Hematocrit (Bld) [Volume fraction] 37.3 % 36.0 - 48.0 % [facility] Hemoglobin (Bld) [Mass/Vol] 12.3 g/dL 12.0 - 16.0 g/dL [facility] IMMATURE GRANULOCYTES ABS AUTO 0.04 High [facility] Immature granulocytes/100 WBC (Bld) 0.3 % 0.0 - 0.5 % [facility] Interpretation and review of laboratory results Abnormal [facility] LYMPHOCYTES ABSOLUTE AUTO 1.8 [facility] Lymphocytes/100 WBC (Bld) 15.7 % Low 20.5 - 60.0 % [facility] MCH (RBC) [Entitic mass] 32.1 pg 26.7 - 34.0 pg [facility] MCHC (RBC) [Mass/Vol] 33 g/dL 29.9 - 35.2 g/dL [facility] MCV (RBC) [Entitic vol] 97.4 fL 81.0 - 99.0 fL [facility] Healthcare MONOCYTES ABSOLUTE AUTO 0.8 [facility] Monocytes/100 WBC (Bld) 6.9 % 1.7 - 12.0 % [facility] NEUTROPHILS ABSOLUTE AUTO 8.8 High [facility] Neutrophils/100 WBC (Bld) 76.3 % High 43.0 - 75.0 % [facility] Platelet mean volume (Bld) [Entitic vol] 9.3 fL Low 9.5 - 13.5 fL [facility] E[facility] # 0 [facility] PLT 308 [facility] RBC 3.83 Low [facility] WBC 11.5 High [facility] Urine Cultureon 07-26-2024 Bacteria identified Cx Nom (U) 50,000 colonies/ml mixed bacterial skin contaminants 2 Days PERFORMED BY: [facility] [place] [address] PATHOLOGIST MRI MANAGER LETICIA KAHN M.D. Normal [facility] Comment on above: Performed By: #### C UU #### [facility] [address] [place] [address] [facility] 36on 07-25-2024 36 Regarding labs from 07/25/2024 MD Oralia Luevano MA The patient's white blood cell count is extremely elevated; this could indicate an infection or another serious problem. In addition, her serum creatinine is high. I would cancel any proposed upcoming cardiac catheterizations. Please have her see her family physician or go to the emergency room as soon as possible to evaluate why she has these significant lab abnormalities. Thank you Spoke to patient advised patient of her lab results, advised patient of Dr. Louis recommendations. Patient states she will wait until 07/26/2024 and call Nolvia Hodges office. Blood work results faxed to Nolvia Luu office. Advised patient if she has fever, chills or not feeling well to go to the ER. Patient verbalized understanding. MD Oralia Luevano MA I see that she is on Prednisone. That may be the cause. She is still to discuss with her PCP. Patient states she is still taking the prednisone and will still call her PCP on 07/26/2024 Normal [facility] ALL CBC WITH AUTO DIFFon Erythrocyte distribution width (RBC) [Ratio] 14.5 % 11.0 - 15.0 % [facility] Hematocrit (Bld) [Volume fraction] 37.9 % 36.0 - 48.0 % [facility] Hemoglobin (Bld) [Mass/Vol] 12.4 g/dL 12.0 - 16.0 g/dL [facility] Interpretation and review of laboratory results Abnormal [facility] MCH (RBC) [Entitic mass] 31.3 pg 26.7 - 34.0 pg [facility] MCHC (RBC) [Mass/Vol] 32.7 g/dL 29.9 - 35.2 g/dL [facility] MCV (RBC) [Entitic vol] 95.7 fL 81.0 - 99.0 fL [facility] Platelet mean volume (Bld) [Entitic vol] 9.4 fL Low 9.5 - 13.5 fL [facility] RBC 3.96 Low [facility] WBC 23.5 High [facility] Telephoneon 07-25-2024 Telephone [id number] Susana Juares 1955 F Date Provider Department Center 07/25/2024 [id number] HARRISON CARD Deion Hos Family History Problem Relation Age of Onset Stroke Mother Kidney disease Father Coronary artery disease Paternal Grandfather Family Status - Relation Status Age at Mother Father Paternal Grandfather Normal [facility] Erythrocyte distribution wid th Auto (RBC) [Ratio]on 07-17-2024 Erythrocyte distribution width (RBC) [Ratio] Erythrocyte distribution width [Ratio] by Automated count 11.0-15.0 [facility] Estimated glomerular filtrat ion rate (GFR) non- Americanon 07-17-2024 GFR/1.73 sq M.predicted among non-blacks MDRD (S/P/Bld) [Vol rate/Area] Estimated glomerular filtration rate (GFR) non- Low >=60 mL/min/1.73m 2 [facility] Hematocrit Auto (Bld) [Volum e fraction]on 07-17-2024 Hematocrit (Bld) [Volume fraction] Hematocrit [Volume Fraction] of Blood by Automated count 36.0-48.0 [facility] Hemoglobin [Mass/volume] in Bloodon 07-17-2024 Hemoglobin (Bld) [Mass/Vol] Hemoglobin [Mass/volume] in Blood 12.0-16.0 [facility] Laboratory - Chemistry and C hemistry - challengeon 07-17-2024 Albumin [Mass/Vol] 3.4 g/dL 3.4-5.0 [facility] Calcium [Mass/Vol] 8.8 mg/dL 8.5-10.1 [facility] Chloride [Moles/Vol] 99 mmol/L 98-107 [facility] CO2 [Moles/Vol] 27.2 mmol/L 21.0-32.0 [facility] Creatinine [Mass/Vol] 1.44 mg/dL High 0.55-1.02 [facility] GFR/1.73 sq M.predicted MDRD (S/P/Bld) [Vol rate/Area] 43 mL/min/{1.73_m2} Low >=60 mL/min/1.73m 2 [facility] Glucose [Mass/Vol] 105 mg/dL 74-106 [facility] Magnesium [Mass/Vol] 2.1 mg/dL 1.8-2.4 [facility] Potassium [Moles/Vol] 4.9 mmol/L 3.5-5.1 [facility] Sodium [Moles/Vol] 135 mmol/L Low 136-145 [facility] Urate [Mass/Vol] 5.0 mg/dL 2.6-6.0 [facility] Urea nitrogen [Mass/Vol] 20.0 mg/dL High 7.0-18.0 [facility] Urea nitrogen/Creatinine [Mass ratio] 13.9 mg/mg [facility] Laboratory - Urinalysison Protein (U) [Mass/Vol] 25.2 mg/dL High <=11.9 [facility] Leukocytes [#/volume] correc maryuri for nucleated erythrocytes in Blood by Automated counon 07-17-2024 WBC corrected for nucl RBC Auto (Bld) [#/Vol] Leukocytes [#/volume] corrected for nucleated erythrocytes in Blood by Automated coun 4.0-11.0 [facility] MCH Auto (RBC) [Entitic mass ]on 07-17-2024 MCH (RBC) [Entitic mass] MCH [Entitic mass] by Automated count 26.7-34.0 [facility] MCHC Auto (RBC) [Mass/Vol]on 07-17-2024 MCHC (RBC) [Mass/Vol] MCHC [Mass/volume] by Automated count 29.9-35.2 [facility] MCV Auto (RBC) [Entitic vol] on 07-17-2024 MCV (RBC) [Entitic vol] MCV [Entitic volume] by Automated count 81.0-99.0 [facility] No Panel Informationon 07-17 Parathyroid Hormone (Intact) 68 pg/mL Abnormal 15-65 [facility] Comment on above: Performed at: [email or web address] [place] [id number] Director: True Herron PhD, Phone: [phone] Phosphorus Level 3.2 mg/dL 2.6-4.7 [facility] Urine Random Creatinine 68.16 mg/dL 20.00-300.00 [facility] Platelet mean volume Auto (B ld) [Entitic vol]on 07-17-2024 Platelet mean volume (Bld) [Entitic vol] Platelet mean volume [Entitic volume] in Blood by Automated count 9.5-13.5 [facility] Platelets Auto (Bld) [#/Vol] on 07-17-2024 Platelets (Bld) [#/Vol] Platelets [#/volume] in Blood by Automated count 150-450 [facility] RBC Auto (Bld) [#/Vol]on RBC (Bld) [#/Vol] Erythrocytes [#/volume] in Blood by Automated count Low 4.20-5.40 [facility] Serum or plasma anion gap de terminationon 07-17-2024 Anion gap [Moles/Vol] Serum or plasma anion gap determination [facility] URINE T PROTEIN CREAT RA TIOon 07-17-2024 CREATININE URINE RANDOM 68.16 mg/dL 20.00 - 300.00 mg/dL [facility] Interpretation and review of laboratory results Abnormal [facility] Protein (U) [Mass/Vol] 25.2 mg/dL High NINF - 11.9 mg/dL [facility] PROTEIN CREATININE RATIO URINE 0.37 [facility] Urine protein/creatinine rat ioon 07-17-2024 Protein/Creatinine (U) [Ratio] Urine protein/creatinine ratio [facility] ANESon 07-03-2024 ANES Attestation signed by Abby Azevedo MD at 07/03/2024 9:27 AM Abby Azevedo MD, MPH, [facility], [facility], [facility] Interventional Cardiology Pager Email: [email or web address] Patient: Susana Juares Procedure Information Date/Time: 07/03/24 1030 Procedures: Coronary angiography - PC APPROVED 06/16-09/13 R IJ L MAYCO Right heart cath Location: [facility] TOE [facility]ERTER 3 / [facility] (Cath) Providers: Abby Azevedo MD Clinical information reviewed: Tobacco Allergies Meds Med Hx Surg Hx Fam Hx Soc Hx Physical Exam Airway Mallampati: III Cardiovascular Rhythm: regular Rate: normal (-) murmur Dental Pulmonary (-) decreased breath sounds Abdominal (+) obese Anesthesia Plan ASA 3 other (Conscious Sedation) intravenous induction Anesthetic plan and risks discussed with patient. Use of blood products discussed with patient who consented to blood products. Plan discussed with attending. Additional Equipment Requests Normal [facility] HPon 07-03-2024 HP Attestation signed by Abby Azevedo MD at 07/03/2024 9:27 AM Abby Azevedo MD, MPH, [facility], [facility], [facility] Interventional Cardiology Pager Email: [email or web address] H&P reviewed. The patient was examined and there are no changes to the H&P. Proceed with [facility] Geo Laboy MD PGY-5 Internal Controls Analyst [facility] Pager # [phone] [facility] NURSNOTEon 07-03-2024 NURSNOTE RN educated pt on d/c instructions. This included: site care, limited physical activity, resume normal diet, future appointments, medications, and moderate sedation instructions. RN educated pt on when to notify physician and when to go to the hospital. RN provided pt with arm sling and educated pt on importance of not using arm for 24 hours for radial sites. RN encouraged pt to voice any questions or concerns, and answered any questions or concerns if pt verbalized. Pt was wheeled off of unit with all of belongings. Normal [facility] NURSNOTE Per Dr. Medrano patient to get LR at 100ml per hr for pre cath hydration [facility] ALL CBC WITH AUTO DIFFon BASOPHILS ABSOLUTE AUTO 0.1 [facility] Basophils/100 WBC (Bld) 0.7 % 0.2 - 2.0 % [facility] Eosinophils/100 WBC (Bld) 0.9 % 0.9 - 7.0 % [facility] Erythrocyte distribution width (RBC) [Ratio] 15.5 % High 11.0 - 15.0 % [facility] Hematocrit (Bld) [Volume fraction] 36.4 % 36.0 - 48.0 % [facility] Hemoglobin (Bld) [Mass/Vol] 12 g/dL 12.0 - 16.0 g/dL [facility] IMMATURE GRANULOCYTES ABS AUTO 0.04 High [facility] Immature granulocytes/100 WBC (Bld) 0.4 % 0.0 - 0.5 % [facility] Interpretation and review of laboratory results Abnormal [facility] LYMPHOCYTES ABSOLUTE AUTO 1.2 [facility] Lymphocytes/100 WBC (Bld) 12.3 % Low 20.5 - 60.0 % [facility] MCH (RBC) [Entitic mass] 31.8 pg 26.7 - 34.0 pg [facility] MCHC (RBC) [Mass/Vol] 33 g/dL 29.9 - 35.2 g/dL [facility] MCV (RBC) [Entitic vol] 96.6 fL 81.0 - 99.0 fL [facility] MONOCYTES ABSOLUTE AUTO 0.7 [facility] Monocytes/100 WBC (Bld) 6.6 % 1.7 - 12.0 % [facility] NEUTROPHILS ABSOLUTE AUTO 8 High [facility] Neutrophils/100 WBC (Bld) 79.1 % High 43.0 - 75.0 % [facility] Platelet mean volume (Bld) [Entitic vol] 8.8 fL Low 9.5 - 13.5 fL [facility] EO # 0.1 [facility] PLT 290 [facility] RBC 3.77 Low [facility] WBC 10.1 [facility] HPon 06-15-2024 [facility] Cardiology Clinic Note Chief Complaint: Patient here for follow up chest pain and addition of Ranexa per Dr. Mustafa. She thinks she's more SOB now that she's on it. Denies chest pain, palpitations, and lightheadedness/sync ope. HPI: Susana Juares is a 69 y.o. female with a history of coronary artery disease, prior stent placement, COPD, nonsustained ventricular tachycardia here due to worsening symptoms. For the past several months, she has noticed worsening shortness of breath. Her cloud engagement partner adjusted her inhalers but this does not [...] kidney disease, COPD (chronic obstructive pulmonary disease) ([facility]), Coronary artery disease, Coronary artery disease involving [place] coronary artery of [place] heart without angina pectoris (12/28/2016), Essential hypertension [...] Rfl: 3 cholecalciferol (Vitamin D-3) 50 MCG (2000 UT) tablet, 1 (one) time each day [...] NEBULIZER FOUR TIMES DAILY, Disp: , Rfl: ipratropium-albutero L (Duo-Neb) 0.5-2.5 mg/3 mL nebulizer solution, 3 [...] 10 mg table (more content not included)... [facility] Office Visiton 06-15-2024 Follow-up visit [id number] Susana Juares 1955 F Date Provider Department Center 06/15/2024 271-ABBY AZEVEDO [facility] Family History Problem Relation Age of Onset Stroke Mother Kidney disease Father Coronary artery disease Paternal Grandfather Family Status - Relation Status Age at Mother Father Paternal Grandfather Level of Service:45873 ID OFFICE/OUTPATIENT ESTABLISHED HIGH MDM 40 MIN [facility] Orders Onlyon 06-15-2024 Orders Only [id number] Susana Juares 1955 F Date Provider Department Center 06/15/2024 ALLAN BHAKTA JUSTIN [facility] Family History Problem Relation Age of Onset Stroke Mother Kidney disease Father Coronary artery disease Paternal Grandfather Family Status - Relation Status Age at Mother Father Paternal Grandfather Normal [facility] Office Visiton 05-23-2024 Follow-up visit [id number] Susana Juares A 1955 Date Provider Department Center 05/23/2024 Lonny-XANDER MUSTAFA JUSTIN [facility] Family History Problem Relation Age of Onset Stroke Mother Kidney disease Father Coronary artery disease Paternal Grandfather Family Status - Relation Status Age at Mother Father Paternal Grandfather Level of Service:88895 ID OFFICE/OUTPATIENT ESTABLISHED LOW MDM 20 MIN [facility]H URINE T PROTEIN CREAT RA TIOon 02-02-2024 CREATININE URINE RANDOM 78.2 mg/dL 20.00 - 300.00 mg/dL [facility] Protein (U) [Mass/Vol] 8.7 mg/dL NINF - 11.9 mg/dL [facility] PROTEIN CREATININE RATIO URINE 0.11 [facility] ALL HEMOGLOBINon 01-24-2024 Hemoglobin (Bld) [Mass/Vol] 11 g/dL Low 12.0 - 16.0 g/dL [facility] Interpretation and review of laboratory results Abnormal [facility] 36on 01-04-2024 36 Patient seen today by Dr. Mustafa. He wants to know if she can stop Effient due to easy bruising/bleeding. Please advise. Thanks. Normal [facility] Office Visiton 01-04-2024 Follow-up visit [id number] Gabriel Juaresoziel Dasilva 1955 F Date Provider Department Center 01/04/2024 XANDER FARLEY [facility] Family History Problem Relation Age of Onset Stroke Mother Kidney disease Father Coronary artery disease Paternal Grandfather Family Status - Relation Status Age at Mother Father Paternal Grandfather Level of Service:88831 ID OFFICE/OUTPATIENT ESTABLISHED LOW MDM 20 MIN Normal [facility] Iron binding capacity [Mass/ volume] in Serum or Plasmaon 11-23-2023 Iron binding capacity [Mass/Vol] 365.0 ug/dL 250.0-450.0 [facility] Iron saturation [Mass Fracti on] in Serum or Plasmaon 11-23-2023 Iron saturation [Mass fraction] 5.5 % [facility] Laboratory - Chemistry and C hemistry - challengeon 11-23-2023 Ferritin [Mass/Vol] 25.0 ng/mL 8.0-252.0 [facility] Iron [Mass/Vol] 20.0 ug/dL Low 50.0-170.0 [facility] TIBCon 2023 Interpretation and review of laboratory results Abnormal [facility] IRON 20.0 ug/dL Low 50.0 - 170.0 ug/dL [facility] PERCENT IRON SATURATION 5.5 % [facility] TOTAL IRON BINDING CAPACITY 365.0 ug/dL 250.0 - 450.0 ug/dL [facility] Erythrocyte distribution wid th Auto (RBC) [Ratio]on 11-08-2023 Erythrocyte distribution width (RBC) [Ratio] 16.4 % High 11.0-15.0 [facility] Estimated glomerular filtrat ion rate (GFR) non- Americanon 11-08-2023 GFR/1.73 sq M.predicted among non-blacks MDRD (S/P/Bld) [Vol rate/Area] 37 mL/min/{1.73_m2} Low >=60 [facility] Globulin Calc (S) [Mass/Vol] on 11-08-2023 Globulin (S) [Mass/Vol] 3.9 g/dL [facility] Hematocrit Auto (Bld) [Volum e fraction]on 11-08-2023 Hematocrit (Bld) [Volume fraction] 28.1 % Low 36.0-48.0 [facility] Hemoglobin [Mass/volume] in Bloodon 11-08-2023 Hemoglobin (Bld) [Mass/Vol] 8.7 g/dL Low 12.0-16.0 [facility] Laboratory - Chemistry and C hemistry - challengeon 11-08-2023 Albumin [Mass/Vol] 3.4 g/dL 3.4-5.0 [facility] ALP [Catalytic activity/Vol] 81 U/L 46-116 [facility] ALT [Catalytic activity/Vol] 26 U/L 14-59 [facility] AST [Catalytic activity/Vol] 23 U/L 15-37 [facility] Bilirubin [Mass/Vol] 0.3 mg/dL 0.2-1.0 [facility] Calcium [Mass/Vol] 8.7 mg/dL 8.5-10.1 [facility] Chloride [Moles/Vol] 93 mmol/L Low 98-107 [facility] CO2 [Moles/Vol] 27.4 mmol/L 21.0-32.0 [facility] Creatinine [Mass/Vol] 1.40 mg/dL High 0.55-1.02 [facility] GFR/1.73 sq M.predicted MDRD (S/P/Bld) [Vol rate/Area] 45 mL/min/{1.73_m2} Low >=60 [facility] Glucose [Mass/Vol] 96 mg/dL 74-106 [facility] Magnesium [Mass/Vol] 2.2 mg/dL 1.8-2.4 [facility] Potassium [Moles/Vol] 4.4 mmol/L 3.5-5.1 [facility] Protein [Mass/Vol] 7.3 g/dL 6.4-8.2 [facility] Sodium [Moles/Vol] 128 mmol/L Low 136-145 [facility] Urate [Mass/Vol] 5.6 mg/dL 2.6-6.0 [facility] Urea nitrogen [Mass/Vol] 20.0 mg/dL High 7.0-18.0 [facility] Urea nitrogen/Creatinine [Mass ratio] 14.3 mg/mg [facility] Bilirubin Ql (U) Negative NEGATIVE [facility] Glucose (U) [Mass/Vol] Negative NEGATIVE [facility] Ketones Ql (U) Negative NEGATIVE [facility] pH (U) 7.5 [pH] 5.0-9.0 [facility] Specific gravity (U) [Rel density] 1.010 1.005-1.025 [facility] Urobilinogen Qn (U) 0.2 {Chuy'U}/dL 0.2-1.0 [facility] Laboratory - Specimen inform ationon 11-08-2023 Appearance (U) CLEAR CLEAR [facility] Color (U) YELLOW YELLOW [facility] Laboratory - Urinalysison Leukocyte esterase Test strip Ql (U) Negative NEGATIVE [facility] Nitrite Ql (U) Negative NEGATIVE [facility] Protein (U) [Mass/Vol] 11.9 mg/dL <=11.9 [facility] Protein Ql (U) Negative NEG/TRACE [facility] Leukocytes [#/volume] correc maryuri for nucleated erythrocytes in Blood by Automated counon 11-08-2023 WBC corrected for nucl RBC Auto (Bld) [#/Vol] 7.3 10 3/uL 4.0-11.0 [facility] MCH Auto (RBC) [Entitic mass ]on 11-08-2023 MCH (RBC) [Entitic mass] 26.1 pg Low 26.7-34.0 [facility] MCHC Auto (RBC) [Mass/Vol]on 11-08-2023 MCHC (RBC) [Mass/Vol] 31.0 g/dL 29.9-35.2 [facility] MCV Auto (RBC) [Entitic vol] on 11-08-2023 MCV (RBC) [Entitic vol] 84.4 fL 81.0-99.0 [facility] No Panel Informationon 11-07 25-Hydroxy Vitamin D Total 32.6 ng/mL [facility] Comment on above: <20 ng/mL Vit D defi cient20-<30 ng/mL Vit D [id number] ng/mL Vit D sufficient>100 ng/mL Potential Toxicity Parathyroid Hormone (Intact) 106 pg/mL Abnormal 15- [facility] Comment on above: Performed at: - L [address] [id number] Director: True Herron PhD, Phone: [phone] Phosphorus Level 3.8 mg/dL 2.6-4.7 [facility] Urine Occult Blood Negative NEGATIVE [facility] Urine Random Creatinine 73.41 mg/dL 20.00-300.00 [facility] Platelet mean volume Auto (B ld) [Entitic vol]on 11-08-2023 Platelet mean volume (Bld) [Entitic vol] 8.6 fL Low 9.5-13.5 [facility] Platelets Auto (Bld) [#/Vol] on 11-08-2023 Platelets (Bld) [#/Vol] 401 10 3/uL 150-450 [facility] RBC Auto (Bld) [#/Vol]on RBC (Bld) [#/Vol] 3.33 10 6/uL Low 4.20-5.40 [facility] Serum or plasma albumin/glob ulin mass ratioon 11-08-2023 Albumin/Globulin [Mass ratio] 0.9 {ratio} [facility] Serum or plasma anion gap de terminationon 11-08-2023 Anion gap [Moles/Vol] 12.0 mmol/L [facility] Urine protein/creatinine rat ioon 11-08-2023 Protein/Creatinine (U) [Ratio] 0.16 [facility] Follow-Upon 10-12-2023 Follow-Up [id number] Susana Juares 1955 F Date Provider Department Center 10/12/2023 XANDER FARLEY [facility] Family History Problem Relation Age of Onset Stroke Mother Kidney disease Father Coronary artery disease Paternal Grandfather Family Status - Relation Status Age at Mother Father Paternal Grandfather Level of Service:30785 ID OFFICE/OUTPATIENT ESTABLISHED MOD MDM 30 MIN Normal [facility] PTH INTACTon 08-04-2022 PTH, Intact 41 pg/mL Normal 15-65 [facility] Comment on above: Performed By: #### P THINT ####[facility] [address] [place], [place] [address]UbDr. Osmel Shelton HEMOGRAM AND PLATELon 2022 Hematocrit (Bld) [Volume fraction] 34.6 % Critically low 36.0-48.0 [facility] Comment on above: Performed By: #### H H #### [facility] [address] [address] [address] Osmel Shelton Hemoglobin (Bld) [Mass/Vol] 11.1 g/dL Critically low 12.0-16.0 [facility] Comment on above: Performed By: #### H H #### [facility] [address] [place] [address] Dr. Osmel Shelton MCH (RBC) [Entitic mass] 29.3 pg Normal 26.7-34.0 [facility] Comment on above: Performed By: #### H H #### [facility] [address] [place] [address] Dr. Osmel Shelton MCHC (RBC) [Mass/Vol] 32.1 g/dL Normal 29.9-35.2 [facility] Comment on above: Performed By: #### H H #### [facility] [address] [place] [address] Dr. Osmel Shelton MCV (RBC) [Entitic vol] 91.3 fL Normal 81.0-99.0 [facility] Comment on above: Performed By: #### H H #### [facility] [address] [place] [address] Dr. Osmel Shelton PLT 306 103/ul Normal 150-450 [facility] Comment on above: Performed By: #### H H #### [facility] [address] [place] [address] Dr. Osmel Shelton RBC 3.79 106/ul Critically low 4.20-5.[address] [facility] Comment on above: Performed By: #### H H #### [facility] [address] [place] [address] Dr. Osmel Shelton WBC 4.8 103/ul Normal 4.0-11.0 [facility] Comment on above: Performed By: #### H H #### [facility] [address] [address] [address] Osmel Shelton MAGNESIUMon 08-03-2022 Magnesium [Mass/Vol] 1.9 mg/dL Normal 1.8-2.4 [facility] Comment on above: Performed By: #### P HOS, MG, CMP, URIC #### [facility] [address] [address] [address] Osmel Shelton PHOSPHORUSon 08-03-2022 Phosphate [Mass/Vol] 4.4 mg/dL Normal 2.6-4.7 [facility] Comment on above: Performed By: #### P HOS, MG, CMP, URIC #### [facility] [address] [address] [address] Osmel Shelton PROF 14(COMP METB)on 023 Albumin [Mass/Vol] 3.6 g/dL Normal 3.4-5.0 [facility] Comment on above: Performed By: #### P HOS, MG, CMP, URIC ####[facility] [address] [address]DrLissett Shelton Albumin/Globulin [Mass ratio] 0.9 {ratio} Normal [facility] Comment on above: Performed By: #### P HOS, MG, CMP, URIC ####[facility] [address] [address]DrLissett Shelton ALP [Catalytic activity/Vol] 136 U/L Critically high 46-116 [facility] Comment on above: Performed By: #### P HOS, MG, CMP, URIC ####[facility] [address] [address]DrLissett Shelton ALT [Catalytic activity/Vol] 29 U/L Normal 14-59 [facility] Comment on above: Performed By: #### P HOS, MG, CMP, URIC ####[facility] [address] [address]DrLissett Shelton Anion gap [Moles/Vol] 13.5 mmol/L Normal [facility] Comment on above: Performed By: #### P HOS, MG, CMP, URIC ####[facility] [address] [address]Dr. Osmel Shelton AST [Catalytic activity/Vol] 27 U/L Normal 15-37 [facility] Comment on above: Performed By: #### P HOS, MG, CMP, URIC ####[facility] [address] [address]Dr. Osmel Shelton Bilirubin [Mass/Vol] 0.2 mg/dL Normal 0.2-1.0 [facility] Comment on above: Performed By: #### P HOS, MG, CMP, URIC ####[facility] [address] [place], [place] [address]Dr. Osmel Shelton Calcium [Mass/Vol] 9.0 mg/dL Normal 8.5-10.1 [facility] Comment on above: Performed By: #### P HOS, MG, CMP, URIC ####[facility] [address] [place], [place] [address]Dr. Osmel Shelton Chloride [Moles/Vol] 100 mmol/L Normal 98-107 [facility] Comment on above: Performed By: #### P HOS, MG, CMP, URIC ####[facility] [address] [place], [place] [address]Dr. Osmel Shelton CO2 [Moles/Vol] 25.7 mmol/L Normal 21.0-32.0 [facility] Comment on above: Performed By: #### P HOS, MG, CMP, URIC ####[facility] [address] [place], [place] [address]Dr. Osmel Shelton Creatinine [Mass/Vol] 1.40 mg/dL Critically high 0.55-1.02 [facility] Comment on above: Performed By: #### P HOS, MG, CMP, URIC ####[facility] [address] [place], [place] [address]Dr. Osmel Shelton EGFR-AF CROATIAN 45 mL/min/1.73m2 Critically low >=60 [facility] Comment on above: Performed By: #### P HOS, MG, CMP, URIC ####[facility] [address] [address]Dr. Osmel Shelton EGFR-NON AF CROATIAN 37 mL/min/1.73m2 Critically low >=60 [facility] Comment on above: Performed By: #### P HOS, MG, CMP, URIC ####[facility] [address] [address]Dr. Osmel Shelton Globulin (S) [Mass/Vol] 4.2 g/dL Normal [facility] Comment on above: Performed By: #### P HOS, MG, CMP, URIC ####[facility] [address] [address]Dr. Osmel Shelton Glucose [Mass/Vol] 101 mg/dL Normal 74-106 [facility] Comment on above: Performed By: #### P HOS, MG, CMP, URIC ####[facility] [address] [place], [place] [address]Dr. Osmel Shelton Potassium [Moles/Vol] 4.2 mmol/L Normal 3.5-5.1 [facility] Comment on above: Performed By: #### P HOS, MG, CMP, URIC ####[facility] [address] [place], [place] [address]Dr. Osmel Shelton Protein [Mass/Vol] 7.8 g/dL Normal 6.4-8.2 [facility] Comment on above: Performed By: #### P HOS, MG, CMP, URIC ####[facility] [address] [place], [place] [address]Dr. Osmel Shelton Sodium [Moles/Vol] 135 mmol/L Critically low 136-145 [facility] Comment on above: Performed By: #### P HOS, MG, CMP, URIC ####[facility] [address] [place], [place] [address]Dr. Osmel Shelton Urea nitrogen [Mass/Vol] 23.0 mg/dL Critically high 7.0-18.0 [facility] Comment on above: Performed By: #### P HOS, MG, CMP, URIC ####[facility] [address] [place], [place] [address]Dr. Osmel Shelton Urea nitrogen/Creatinine [Mass ratio] 16.4 mg/mg Normal [facility] Comment on above: Performed By: #### P HOS, MG, CMP, URIC ####[facility] [address] [address]Dr. Osmel Shelton UA RANDOMon 08-03-2022 Bilirubin Ql (U) Negative Normal NEGATIVE [facility] Comment on above: Performed By: #### U A #### [facility] [address] [address] [address] Osmel Shelton Clarity (U) CLEAR Normal CLEAR [facility] Comment on above: Performed By: #### U A #### [facility] [address] [address] [address] Osmel Shelton Color (U) LT. YELLOW Normal YELLOW [facility] Comment on above: Performed By: #### U A #### [facility] [address] [place] [address] Dr. Osmel Shelton Glucose Ql (U) Negative Normal NEGATIVE [facility] Comment on above: Performed By: #### U A #### [facility] [address] [address] [address] Osmel Shelton Hemoglobin Ql (U) Negative Normal NEGATIVE [facility] Comment on above: Performed By: #### U A #### [facility] [address] [place] [address] Dr. Osmel Shelton Ketones Ql (U) Negative Normal NEGATIVE [facility] Comment on above: Performed By: #### U A #### [facility] [address] [address] [address] Osmel Shelton LEUKOCYTES Negative Normal NEGATIVE [facility] Comment on above: Performed By: #### U A #### [facility] [address] [address] [address] Osmel Shelton Nitrite Ql (U) Negative Normal NEGATIVE [facility] Comment on above: Performed By: #### U A #### [facility] [address] [place] [address] Dr. Osmel Shelton pH (U) 5.5 [pH] Normal 5-9 [facility] Comment on above: Performed By: #### U A #### [facility] [address] [address] [address] Osmel Shelton SPEC GRAVITY <=1.005 Abnormal 1.005-<=1.[address] [facility] Comment on above: Performed By: #### U A #### [facility] [address] [address] [address] Osmel Shelton UA PROTEIN Negative Normal NEGATIVE/ TRACE [facility] Comment on above: Performed By: #### U A #### [facility] [address] [address] [address] Osmel Shelton Urobilinogen Qn (U) 0.2 {Chuy'U}/dL Normal 0.2 - 1. 0 [facility] Comment on above: Performed By: #### U A #### [facility] [address] [place] [address] Dr. Osmel Shelton URIC ACID SERUMon 08-03-2022 Urate [Mass/Vol] 8.4 mg/dL Critically high 2.6-6.0 [facility] Comment on above: Performed By: #### P HOS, MG, CMP, URIC ####[facility] [address] [address]Dr. Osmel Shelton URINE T PROTEIN CREAT RATIOo n 08-03-2022 Protein (U) [Mass/Vol] 4.6 mg/dL Normal <=12.0 [facility] Comment on above: Performed By: #### U RTPCR #### [facility] [address] [address] [address] Osmel Shelton UR PROT CREAT RAT 0.09 Normal [facility] Comment on above: Performed By: #### U RTPCR #### [facility] [address] [address] [address] Osmel Shelton URINE CREAT 50.21 mg/dL Normal 20.00-300.00 [facility] Comment on above: Performed By: #### U RTPCR #### [facility] [address] [address] [address] Osmel Shelton VITAMIN D 25 OHon 08-03-2022 VIT D 25-OH 20.9 ng/mL Normal [facility] Comment on above: Performed By: #### V ITAD ####[facility] [address] [place], [place] [address]TqDr. Osmel Shelton VIT D RANGES SEE BELOW Normal [facility] Comment on above: Result Comment: <20 ng/mL Vit D deficient 20 - <30 ng/mL Vit D insufficient 30 - 100 ng/mL Vit D sufficient >100 ng/mL Potential Toxicity Performed By: #### V ITAD ####[facility] [address] [place], [place] [address]FdDr. Osmel Shelton CBC AUTO DIFFon 07-09-2022 BASO # 0.0 103/ul Normal 0.0-0.1 [facility] Comment on above: Performed By: #### C BC #### [facility] [address] [place] [address] Dr. Osmel Shelton Basophils/100 WBC (Bld) 0.5 % Normal 0.2-2.0 [facility] Comment on above: Performed By: #### C BC #### [facility] [address] [address] [address] Osmel Shelton EO # 0.2 103/ul Normal 0.0-0.7 [facility] Comment on above: Performed By: #### C BC #### [facility] [address] [address] [address] Osmel Shelton Eosinophils/100 WBC (Bld) 2.9 % Normal 0.9-7.0 [facility] Comment on above: Performed By: #### C BC #### [facility] [address] [address] [address] Osmel Shelton Erythrocyte distribution width (RBC) [Ratio] 14.3 % Normal 11.0-15.0 [facility] Comment on above: Performed By: #### C BC #### [facility] [address] [address] [address] Osmel Shelton Hematocrit (Bld) [Volume fraction] 34.4 % Critically low 36.0-48.0 [facility] Comment on above: Performed By: #### C BC #### [facility] [address] [place] [address] Dr. Osmel Shelton Hemoglobin (Bld) [Mass/Vol] 11.4 g/dL Critically low 12.0-16.0 [facility] Comment on above: Performed By: #### C BC #### [facility] [address] [place] [address] Dr. Osmel Shelton IG # 0.02 10e3/ul Normal 0.00-0.03 [facility] Comment on above: Performed By: #### C BC #### [facility] [address] [place] [address] Dr. Osmel Shelton IG % 0.4 % Normal 0.0-0.5 [facility] Comment on above: Performed By: #### C BC #### [facility] [address] [place] [address] Dr. Osmel Shelton LYMPH # 1.3 103/ul Normal 1.2-3.8 [facility] Comment on above: Performed By: #### C BC #### [facility] [address] [place] [address] Dr. Osmel Shelton Lymphocytes/100 WBC (Bld) 23.0 % Normal 20.5-60.0 [facility] Comment on above: Performed By: #### C BC #### [facility] [address] [place] [address] Dr. Osmel Shelton MANUAL DIFF REQ NO Normal [facility] Comment on above: Performed By: #### C BC #### [facility] [address] [place] [address] Dr. Osmel Shelton MCH (RBC) [Entitic mass] 29.8 pg Normal 26.7-34.0 [facility] Comment on above: Performed By: #### C BC #### [facility] [address] [place] [address] Dr. Osmel Shelton MCHC (RBC) [Mass/Vol] 33.1 g/dL Normal 29.9-35.2 [facility] Comment on above: Performed By: #### C BC #### [facility] [address] [address] [address] Osmel Shelton MCV (RBC) [Entitic vol] 89.8 fL Normal 81.0-99.0 [facility] Comment on above: Performed By: #### C BC #### [facility] [address] [address] [address] Osmel Shelton MONO # 0.6 103/ul Normal 0.3-0.8 [facility] Comment on above: Performed By: #### C BC #### [facility] [address] [address] [address] Osmel Shelton Monocytes/100 WBC (Bld) 11.0 % Normal 1.7-12.0 [facility] Comment on above: Performed By: #### C BC #### [facility] [address] [place] [address] Dr. Osmel Shelton NEUT # 3.4 103/ul Normal 1.4-6.5 [facility] Comment on above: Performed By: #### C BC #### [facility] [address] [place] [address] Dr. Osmel Shelton Neutrophils/100 WBC (Bld) 62.2 % Normal 43.0-75.0 [facility] Comment on above: Performed By: #### C BC #### [facility] [address] [address] [address] Osmel Shelton Platelet mean volume (Bld) [Entitic vol] 9.4 fL Critically low 9.5-13.5 [facility] Comment on above: Performed By: #### C BC #### [facility] [address] [place] [address] Dr. Osmel Shelton PLT 327 103/ul Normal 150-450 [facility] Comment on above: Performed By: #### C BC #### [facility] [address] [address] [address] Osmel Shelton RBC 3.83 106/ul Critically low 4.20-5.40 [facility] Comment on above: Performed By: #### C BC #### [facility] [address] [address] [address] Osmel Shelton WBC 5.5 103/ul Normal 4.0-11.0 [facility] Comment on above: Performed By: #### C BC #### [facility] [address] [address] [address] Osmel Shelton PROF CHEM 8 (BAS METB)on Anion gap [Moles/Vol] 11.7 mmol/L Normal [facility] Comment on above: Performed By: #### B MP ####[facility] [address] [address]Dr. Osmel Shelton Calcium [Mass/Vol] 8.8 mg/dL Normal 8.5-10.1 [facility] Comment on above: Performed By: #### B MP ####[facility] [address] [address]DrLissett Shelton Chloride [Moles/Vol] 99 mmol/L Normal 98-107 [facility] Comment on above: Performed By: #### B MP ####[facility] [address] [address]DrLissett Shelton CO2 [Moles/Vol] 27.1 mmol/L Normal 21.0-32.0 [facility] Comment on above: Performed By: #### B MP ####[facility] [address] [address]DrLissett Shelton Creatinine [Mass/Vol] 1.38 mg/dL Critically high 0.55-1.02 [facility] Comment on above: Performed By: #### B MP ####[facility] [address] [place], [place] [address]Aj. Osmel Shelton EGFR-AF CROATIAN 46 mL/min/1.73m2 Critically low >=60 [facility] Comment on above: Performed By: #### B MP ####[facility] [address] [id number]. Osmel Shelton EGFR-NON AF CROATIAN 38 mL/min/1.73m2 Critically low >=60 [facility] Comment on above: Performed By: #### B MP ####[facility] [address] [place], [place] [address]Kj. Osmel Shelton Glucose [Mass/Vol] 105 mg/dL Normal 74-106 [facility] Comment on above: Performed By: #### B MP ####[facility] [address] [place], [place] [address]Sn. Osmel Shelton Potassium [Moles/Vol] 4.8 mmol/L Normal 3.5-5.1 [facility] Comment on above: Performed By: #### B MP ####[facility] [address] [id number]. Osmel Shelton Sodium [Moles/Vol] 133 mmol/L Critically low 136-145 [facility] Comment on above: Performed By: #### B MP ####[facility] [address] [id number]. Osmel Shelton Urea nitrogen [Mass/Vol] 19.0 mg/dL Critically high 7.0-18.0 [facility] Comment on above: Performed By: #### B MP ####[facility] [address] [id number]. Osmel Shelton Urea nitrogen/Creatinine [Mass ratio] 13.8 mg/mg Normal [facility] Comment on above: Performed By: #### B MP ####[facility] [address] [id number]. Osmel Shelton PULMONARY FUNCTION TESTon PULMONARY FUNCTION [...] O2 indicated. Clinical correlation required. Normal [facility] US KIDNEYSon 04-15-2022 US KIDNEYS EXAMINATION: [...] TIMOTHY GUIDRY Date: 2022-04-15 16:21 Normal [facility] CT LUNG CANCER SCREENINGon 1 CT [...] TIMOTHY GUIDRY Date: 2022-01-19 14:40 Normal [facility] CBC AUTO DIFFon 01-05-2022 BASO # 0.1 103/ul Normal 0.0-0.1 [facility] Comment on above: Performed By: #### C BC #### [facility] [address] [place] [address] Dr. Osmel Shelton Basophils/100 WBC (Bld) 1.0 % Normal 0.2-2.0 [facility] Comment on above: Performed By: #### C BC #### [facility] [address] [place] [address] Dr. Osmel Shelton EO # 0.2 103/ul Normal 0.0-0.7 [facility] Comment on above: Performed By: #### C BC #### [facility] [address] [place] [address] Dr. Osmel Shelton Eosinophils/100 WBC (Bld) 3.6 % Normal 0.9-7.0 [facility] Comment on above: Performed By: #### C BC #### [facility] [address] [place] [address] Dr. Osmel Shelton Erythrocyte distribution width (RBC) [Ratio] 14.1 % Normal 11.0-15.0 [facility] Comment on above: Performed By: #### C BC #### [facility] [address] [place] [address] Dr. Osmel Shelton Hematocrit (Bld) [Volume fraction] 36.5 % Normal 36.0-48.0 [facility] Comment on above: Performed By: #### C BC #### [facility] [address] [place] [address] Dr. Osmel Shelton Hemoglobin (Bld) [Mass/Vol] 11.8 g/dL Critically low 12.0-16.0 [facility] Comment on above: Performed By: #### C BC #### [facility] [address] [place] [address] Dr. Osmel hSelton IG # 0.02 10e3/ul Normal 0.00-0.03 [facility] Comment on above: Performed By: #### C BC #### [facility] [address] [place] [address] Dr. Osmel Shelton IG % 0.3 % Normal 0.0-0.5 [facility] Comment on above: Performed By: #### C BC #### [facility] [address] [place] [address] Dr. Osmel Shelton LYMPH # 1.3 103/ul Normal 1.2-3.8 [facility] Comment on above: Performed By: #### C BC #### [facility] [address] [place] [address] Dr. Osmel Shelton Lymphocytes/100 WBC (Bld) 21.4 % Normal 20.5-60.0 [facility] Comment on above: Performed By: #### C BC #### [facility] [address] [place] [address] Dr. Osmel Shelton MANUAL DIFF REQ NO Normal [facility] Comment on above: Performed By: #### C BC #### [facility] [address] [place] [address] Dr. Osmel Shelton MCH (RBC) [Entitic mass] 29.3 pg Normal 26.7-34.0 [facility] Comment on above: Performed By: #### C BC #### [facility] [address] [place] [address] Dr. Osmel Shelton MCHC (RBC) [Mass/Vol] 32.3 g/dL Normal 29.9-35.2 [facility] Comment on above: Performed By: #### C BC #### [facility] [address] [place] [address] Dr. Osmel Shelton MCV (RBC) [Entitic vol] 90.6 fL Normal 81.0-99.0 [facility] Comment on above: Performed By: #### C BC #### [facility] [address] [place] [address] Dr. Osmel Shelton MONO # 0.7 103/ul Normal 0.3-0.8 [facility] Comment on above: Performed By: #### C BC #### [facility] [address] [place] [address] Dr. Osmel Shelton Monocytes/100 WBC (Bld) 11.2 % Normal 1.7-12.0 [facility] Comment on above: Performed By: #### C BC #### [facility] [address] [place] [address] Dr. Osmel Shelton NEUT # 3.7 103/ul Normal 1.4-6.5 [facility] Comment on above: Performed By: #### C BC #### [facility] [address] [place] [address] Dr. Osmel Shelton Neutrophils/100 WBC (Bld) 62.5 % Normal 43.0-75.0 [facility] Comment on above: Performed By: #### C BC #### [facility] [address] [place] [address] Dr. Oseml Shelton Platelet mean volume (Bld) [Entitic vol] 9.4 fL Critically low 9.5-13.5 [facility] Comment on above: Performed By: #### C BC #### [facility] [address] [place] [address] Dr. Osmel Shelton PLT 364 103/ul Normal 150-450 [facility] Comment on above: Performed By: #### C BC #### [facility] [address] [place] [address] Dr. Osmel Shelton RBC 4.03 106/ul Critically low 4.20-5.40 [facility] Comment on above: Performed By: #### C BC #### [facility] [address] [place] [address] Dr. Osmel Shelton WBC 5.9 103/ul Normal 4.0-11.0 [facility] Comment on above: Performed By: #### C BC #### [facility] [address] [place] [address] Dr. Osmel Shelton LIPID PROFILEon 01-05-2022 CHOL-HDL RATIO NORM SEE BELOW Normal [facility] Comment on above: Result Comment: 3.3 - 4.4 LOW RISK 4.4 - 7.1 AVERAGE RISK 7.1 - 11.0 MODERATE RISK >11.0 HIGH RISK Performed By: #### C MP, LIPID #### [facility] [address] [address] [address] Osmel Shelton Cholesterol [Mass/Vol] 149 mg/dL Normal <=200 [facility] Comment on above: Performed By: #### C MP, LIPID #### [facility] [address] [address] [address] Osmel Shelton Cholesterol in HDL [Mass/Vol] 75 mg/dL Critically high 40-60 [facility] Comment on above: Performed By: #### C MP, LIPID #### [facility] [address] [address] [address] Osmel Shelton Cholesterol in LDL [Mass/Vol] 60.4 mg/dL Normal [facility] Comment on above: Performed By: #### C MP, LIPID #### [facility] [address] [place] [address] Dr. Osmel Shelton Cholesterol.total/Ch olesterol in HDL [Mass ratio] 2.0 {ratio} Normal [facility] Comment on above: Performed By: #### C MP, LIPID #### [facility] [address] [address] [address] Osmel Shelton HDL NORMAL > or = 60 mg/dl - LOW CARDIOVASCULAR RISK <40 mg/dl - HIGH CARDIOVASCULAR RISK Normal [facility] Comment on above: Performed By: #### C MP, LIPID #### [facility] [address] [address] [address] Osmel Shelton LDL CALC NORMAL SEE BELOW Normal [facility] Comment on above: Result Comment: <100 mg/dl OPTIMAL 100 - 129 mg/dl NEAR OR ABOVE OPTIMAL 130 - 159 mg/dl BORDERLINE HIGH 160 - 189 mg/dl HIGH >190 mg/dl VERY HIGH Performed By: #### C MP, LIPID #### [facility] [address] [address] [address] Osmel Shelton Triglyceride [Mass/Vol] 68 mg/dL Normal <=150 [facility] Comment on above: Performed By: #### C MP, LIPID #### [facility] [address] [address] [address] Osmel Shelton VLDL CALC 13.6 mg/dL Normal [facility] Comment on above: Performed By: #### C MP, LIPID #### [facility] [address] [place] [address] Dr. Osmel Shelton PROF 14(COMP METB)on 022 Albumin [Mass/Vol] 3.6 g/dL Normal 3.4-5.0 [facility] Comment on above: Performed By: #### C MP, LIPID #### [facility] [address] [place] [address] Dr. Osmel Shelton Albumin/Globulin [Mass ratio] 0.9 {ratio} Normal [facility] Comment on above: Performed By: #### C MP, LIPID #### [facility] [address] [place] [address] Dr. Osmel Shelton ALP [Catalytic activity/Vol] 152 U/L Critically high 46-116 [facility] Comment on above: Performed By: #### C MP, LIPID #### [facility] [address] [place] [address] Dr. Osmel Shelton ALT [Catalytic activity/Vol] 29 U/L Normal 14-59 [facility] Comment on above: Performed By: #### C MP, LIPID #### [facility] [address] [place] [address] Dr. Osmel Shelton Anion gap [Moles/Vol] 11.1 mmol/L Normal [facility] Comment on above: Performed By: #### C MP, LIPID #### [facility] [address] [place] [address] Dr. Osmel Shelton AST [Catalytic activity/Vol] 23 U/L Normal 15-37 [facility] Comment on above: Performed By: #### C MP, LIPID #### [facility] [address] [place] [address] Dr. Osmel Shelton Bilirubin [Mass/Vol] 0.3 mg/dL Normal 0.2-1.0 [facility] Comment on above: Performed By: #### C MP, LIPID #### [facility] [address] [place] [address] Dr. Osmel Shelton Calcium [Mass/Vol] 8.9 mg/dL Normal 8.5-10.1 [facility] Comment on above: Performed By: #### C MP, LIPID #### [facility] [address] [place] [address] Dr. Osmel Shelton Chloride [Moles/Vol] 96 mmol/L Critically low 98-107 [facility] Comment on above: Performed By: #### C MP, LIPID #### [facility] [address] [place] [address] Dr. Osmel Shelton CO2 [Moles/Vol] 28.2 mmol/L Normal 21.0-32.0 [facility] Comment on above: Performed By: #### C MP, LIPID #### [facility] [address] [place] [address] Dr. Osmel Shelton Creatinine [Mass/Vol] 1.46 mg/dL Critically high 0.55-1.02 [facility] Comment on above: Performed By: #### C MP, LIPID #### [facility] [address] [place] [address] Dr. Osmel Shelton EGFR-AF CROATIAN 43 mL/min/1.73m2 Critically low >=60 [facility] Comment on above: Performed By: #### C MP, LIPID #### [facility] [address] [place] [address] Dr. Osmel Shelton EGFR-NON AF CROATIAN 36 mL/min/1.73m2 Critically low >=60 [facility] Comment on above: Performed By: #### C MP, LIPID #### [facility] [address] [place] [address] Dr. Osmel Shelton Globulin (S) [Mass/Vol] 4.2 g/dL Normal [facility] Comment on above: Performed By: #### C MP, LIPID #### [facility] [address] [place] [address] Dr. Osmel Shelton Glucose [Mass/Vol] 95 mg/dL Normal 74-106 [facility] Comment on above: Performed By: #### C MP, LIPID #### [facility] [address] [place] [address] Dr. Osmel Shelton Potassium [Moles/Vol] 5.3 mmol/L Critically high 3.5-5.1 [facility] Comment on above: Performed By: #### C MP, LIPID #### [facility] [address] [address] [address] Osmel Shelton Protein [Mass/Vol] 7.8 g/dL Normal 6.4-8.2 [facility] Comment on above: Performed By: #### C MP, LIPID #### [facility] [address] [address] [address] Osmel Shelton Sodium [Moles/Vol] 130 mmol/L Critically low 136-145 [facility] Comment on above: Performed By: #### C MP, LIPID #### [facility] [address] [place] [address] Dr. Osmel Shelton Urea nitrogen [Mass/Vol] 22.0 mg/dL Critically high 7.0-18.0 [facility] Comment on above: Performed By: #### C MP, LIPID #### [facility] [address] [place] [address] Dr. Osmel Shelton Urea nitrogen/Creatinine [Mass ratio] 15.1 mg/mg Normal [facility] Comment on above: Performed By: #### C MP, LIPID #### [facility] [address] [place] [address] Dr. Osmel Shelton Vital Signs Date Time Vital Sign Value Performing Clinician Facility 07-25-2024 13:37-0400 Body height 160.02 cm [facility] 07-25-2024 13:37-0400 Body mass index (BMI) [Ratio] 35.1 kg/m2 [facility] 07-25-2024 13:37-0400 Body temperature 97.8 [degF] [facility] 07-25-2024 13:37-0400 Body weight 89.86 kg [facility] 07-25-2024 13:37-0400 Diastolic blood pressure 56 mm[Hg] [facility] 07-25-2024 13:37-0400 Heart rate 93 /min [facility] 07-25-2024 13:37-0400 Respiratory rate 20 /min [facility] 07-25-2024 13:37-0400 SaO2% (BldA) [Mass fraction] 93 % [facility] 07-25-2024 13:37-0400 Systolic blood pressure 108 mm[Hg] [facility] 06-08-2024 14:43-0400 Body mass index (BMI) [Ratio] 35.39 kg/m2 Nolvia Tony [employer] Work Phone: [facility] 06-08-2024 14:43-0400 Body temperature 97.81 [degF] Nolvia Tony [employer] Work Phone: [facility] 06-08-2024 14:43-0400 Body weight 90.63 kg Nolvia Tony [employer] Work Phone: [facility] 06-08-2024 14:43-0400 Diastolic blood pressure 80 mm[Hg] Nolvia Tony [employer] Work Phone: [facility] 06-08-2024 14:43-0400 Heart rate 72 /min Nolvia Mihaiz [employer] Work Phone: [facility] 06-08-2024 14:43-0400 Respiratory rate 19 /min Nolvia Goncalveswadez [employer] Work Phone: [facility] 06-08-2024 14:43-0400 SaO2% (BldA) [Mass fraction] 98 % Nolvia Tony [employer] Work Phone: [facility] 06-08-2024 14:43-0400 Systolic blood pressure 144 mm[Hg] Nolvia Mihaiz [employer] Work Phone: [facility] 04-26-2024 15:02-0500 Body height 160 cm Argelia Cheng [employer] Work Phone: [facility] 04-26-2024 15:02-0500 Body mass index (BMI) [Ratio] 35.96 kg/m2 Argelia Estebanpatrick [employer] Work Phone: [facility] 04-26-2024 15:02-0500 Body temperature 97.2 [degF] Argelia Cheng [employer] Work Phone: [facility] 04-26-2024 15:02-0500 Body weight 92.08 kg Argelia Cheng [employer] Work Phone: [facility] 04-26-2024 15:02-0500 Diastolic blood pressure 84 mm[Hg] Argelia Cheng [employer] Work Phone: [facility] 04-26-2024 15:02-0500 Heart rate 72 /min Argelia Cheng [employer] Work Phone: [facility] 04-26-2024 15:02-0500 Respiratory rate 18 /min Argelia Cheng [employer] Work Phone: [facility] 04-26-2024 15:02-0500 SaO2% (BldA) [Mass fraction] 94 % Agrelia Cheng [employer] Work Phone: [facility] 04-26-2024 15:02-0500 Systolic blood pressure 180 mm[Hg] Argelia Cheng [employer] Work Phone: [facility] 04-18-2024 13:58-0500 Body height 160 cm Argelia Cheng [employer] Work Phone: [facility] 04-18-2024 13:58-0500 Body mass index (BMI) [Ratio] 35.8 kg/m2 Argelia Cheng [employer] Work Phone: [facility] 04-18-2024 13:58-0500 Body temperature 96.21 [degF] Argelia Cheng [employer] Work Phone: [facility] 04-18-2024 13:58-0500 Body weight 91.67 kg Argelia Cheng [employer] Work Phone: [facility] 04-18-2024 13:58-0500 Diastolic blood pressure 82 mm[Hg] Argelia Cheng [employer] Work Phone: [facility] 04-18-2024 13:58-0500 Heart rate 96 /min Argelia Cheng [employer] Work Phone: [facility] 04-18-2024 13:58-0500 Respiratory rate 18 /min Argelia Cheng [employer] Work Phone: [facility] 04-18-2024 13:58-0500 SaO2% (BldA) [Mass fraction] 97 % Argelia Cheng [employer] Work Phone: [facility] 04-18-2024 13:58-0500 Systolic blood pressure 138 mm[Hg] Argelia Cheng [employer] Work Phone: [facility] 01-17-2024 13:25-0400 Body mass index (BMI) [Ratio] 34.76 kg/m2 Argelia Cheng [employer] Work Phone: [facility] 01-17-2024 13:25-0400 Body temperature 97.81 [degF] Argelia Cheng [employer] Work Phone: [facility] 01-17-2024 13:25-0400 Body weight 89 kg Argelia Cheng [employer] Work Phone: [facility] 01-17-2024 13:25-0400 Diastolic blood pressure 72 mm[Hg] Argelia Cheng [employer]TER Work Phone: [facility] 01-17-2024 13:25-0400 Heart rate 84 /min Argelia Cheng [employer] Work Phone: [facility] 01-17-2024 13:25-0400 SaO2% (BldA) [Mass fraction] 98 % Argelia Cheng [employer] Work Phone: [facility] 01-17-2024 13:25-0400 Systolic blood pressure 130 mm[Hg] Argelia Cheng [employer] Work Phone: [facility] 12-20-2023 15:00-0400 Diastolic blood pressure 75 mm[Hg] MD Jackelyn Guillory Work Phone: [facility] 12-20-2023 15:00-0400 Systolic blood pressure 136 mm[Hg] MD Jackelyn Guillory Work Phone: [facility] 12-17-2023 14:48-0400 Heart rate 81 /min MD Jackelyn Guillory Work Phone: [facility] 11-16-2023 15:26-0400 Body height 154.94 cm [facility] 11-16-2023 15:26-0400 Body mass index (BMI) [Ratio] 38.4 kg/m2 [facility] 11-16-2023 15:26-0400 Body temperature 96.1 [degF] [facility] 11-16-2023 15:26-0400 Body weight 92.24 kg [facility] 11-16-2023 15:26-0400 Diastolic blood pressure 79 mm[Hg] [facility] 11-16-2023 15:26-0400 Respiratory rate 20 /min [facility] 11-16-2023 15:26-0400 Systolic blood pressure 171 mm[Hg] [facility] 03-09-2023 11:20-0500 Body height 154.94 cm Jackelyn Guillory Other [facility] Other 03-09-2023 11:20-0500 Body mass index (BMI) [Ratio] 38.62 kg/m2 Jackelyn Guillory Other [facility] Other 03-09-2023 11:20-0500 Body temperature 96.7 [degF] Jackelyn Guillory Other [facility] Other 03-09-2023 11:20-0500 Body weight 92.72 kg Azsasha Bakhumbertos Other [facility] Other 03-09-2023 11:20-0500 Diastolic blood pressure 60 mm[Hg] Aziz Bakhous Other [facility] Other 03-09-2023 11:20-0500 Respiratory rate 18 /min Azsasha Wagners Other [facility] Other 03-09-2023 11:20-0500 SaO2% (BldA) [Mass fraction] 97 % Azsasha Bakhumbertos Other [facility] Other 03-09-2023 11:20-0500 Systolic blood pressure 100 mm[Hg] Aziz Bakhous Other [facility] Other 04-07-2022 15:20-0500 Body height 154.94 cm Jackelyn Wagners Other [facility] Other 04-07-2022 15:20-0500 Body mass index (BMI) [Ratio] 39.67 kg/m2 Jackelyn Bakhous Other [facility] Other 04-07-2022 15:20-0500 Body temperature 97.7 [degF] Aziz Bakhous Other [facility] Other 04-07-2022 15:20-0500 Body weight 95.26 kg Aziz Bakhous Other [facility] Other 04-07-2022 15:20-0500 Diastolic blood pressure 90 mm[Hg] Aziz Bakhous Other [facility] Other 04-07-2022 15:20-0500 Respiratory rate 18 /min Jackelyn Guillory Other [facility] Other 04-07-2022 15:20-0500 SaO2% (BldA) [Mass fraction] 97 % Jackelyn Guillory Other [facility] Other 04-07-2022 15:20-0500 Systolic blood pressure 140 mm[Hg] Jackelyn Guillory Other [facility] Other Encounters Encounter Date Encounter Type Care Provider Facility Start: 08-02-2024 End: 08-02-2024 Clinisync Result Encounter Nolvia Tony [employer] Work Phone: [facility]solic[facility] Start: 08-02-2024 End: 08-02-2024 Clinisync Result Encounter Nolvia Tony [employer] Work Phone: [facility] Unsolicited Start: 08-01-2024 End: 08-01-2024 [facility] Start: 07-27-2024 End: 07-28-2024 External Result Encounter Nolvia Tony [employer] Work Phone: [facility] Unsolicited Start: 07-27-2024 End: 07-28-2024 External Result Encounter Nolvia Tony [employer] Work Phone: [facility] Unsolicited Start: 07-26-2024 End: 07-26-2024 Clinisync Result Encounter Nolvia Tony [employer] Work Phone: [facility] Unsolicited Start: 07-26-2024 End: 07-26-2024 Clinisync Result Encounter Nolvia Tony [employer] Work Phone: [facility] Unsolicited Start: 07-26-2024 End: 07-26-2024 Departed Referred Nolvia Tony Work Phone: [facility] Start: 07-26-2024 End: 07-26-2024 Orders Only Nolvia Jimenez NP Work Phone: [facility] Comment on above: Leukocytosis, unspec ified type (Primary Dx) Leukocytosis, unspec ified type (Primary Dx); CRP elevated Start: 07-25-2024 End: 07-25-2024 Clinisync Result Encounter Generic External Data Provider [facility]olic[facility] Start: 07-25-2024 End: 07-25-2024 Clinisync Result Encounter Generic External Data Provider [facility] Unsolicited Start: 07-25-2024 End: 07-25-2024 ambulatory [facility] Work Phone: Start: 07-25-2024 End: 07-25-2024 Patient encounter procedure [facility] Work Phone: Start: 07-17-2024 End: 07-17-2024 Clinisync Result Encounter Generic External Data Provider [facility] Unsolicited Start: 07-17-2024 End: 07-17-2024 Clinisync Result Encounter Generic External Data Provider [facility] Unsolicited Start: 07-17-2024 Non-patient / Non-visit [facility] Work Phone: Start: 07-03-2024 End: 07-03-2024 ambulatory [facility] Start: 06-26-2024 End: 06-26-2024 Clinisync Result Encounter Generic External Data Provider [facility] Unsolicited Start: 06-26-2024 End: 06-26-2024 Clinisync Result Encounter Generic External Data Provider [facility] Unsolicited Start: 06-15-2024 End: 06-15-2024 ambulatory [facility] Start: 06-08-2024 End: 06-08-2024 Office outpatient visit 25 minutes Nolvia Jimenez NP Work Phone: [facility] Comment on above: Essential (primary) hypertension (CMS/HCC) (Primary Dx); Morbid (severe) obesity due to excess calories (CMS/HCC); Body mass index (BMI) 35.0-35.9, adult; Chronic obstructive pulmonary disease, unspecified (CMS/HCC); Chronic kidney disease, stage 3b (HCC) (CMS/HCC); Coronary artery disease involving la jolla coronary artery of la jolla heart without angina pectoris (CMS/HCC); Hypomagnesemia; Mixed hyperlipidemia (CMS/HCC); Chronic low back pain, unspecified back pain laterality, unspecified whether sciatica present Start: 06-08-2024 End: 06-08-2024 ambulatory NOLVIA JIMENEZ Not Available Start: 06-08-2024 End: 06-08-2024 Bamboo flowsheet Nolvia Jimenez [employer] Work Phone: [facility] Start: 06-08-2024 End: 06-08-2024 Bamboo flowsheet Nolvia Jimenez [employer] Work Phone: [facility] Start: 05-23-2024 End: 05-23-2024 ambulatory [facility] Start: 05-02-2024 Non-patient / Non-visit [facility] Work Phone: Start: 04-26-2024 End: 04-26-2024 Transitional care manage srvc 7 day discharge Argelia Cheng [employer] Work Phone: [facility] Comment on above: Essential hypertensi on (CMS/HCC) (Primary Dx) Start: 04-26-2024 End: 04-26-2024 ambulatory ARGELIA CHENG Not Available Start: 04-26-2024 End: 04-26-2024 Bamboo flowsheet Argelia Cheng [employer] Work Phone: [facility] Start: 04-26-2024 End: 04-26-2024 Bamboo flowsheet Argelia Cheng [employer] Work Phone: [facility] Start: 04-18-2024 End: 04-18-2024 Bamboo flowsheet Argelia Garciazpatrick [employer]TER Work Phone: [facility] Start: 04-18-2024 End: 04-18-2024 Bamboo flowsheet Argelia Cheng [employer] Work Phone: [facility] Start: 04-18-2024 End: 04-18-2024 Office outpatient visit 10 minutes Argelia Cheng [employer] Work Phone: [facility] Comment on above: Irregular heartbeat (Primary Dx) Start: 04-18-2024 End: 04-18-2024 ambulatory ARGELIA CHENG Not Available Start: 04-03-2024 End: 04-03-2024 Refill Argelia Fergusontrick [employer] C[employer]TER Work Phone: [facility] Comment on [...] Start: 01-17-2024 End: 01-17-2024 Bamboo flowsheet Argelia Garciazpatrick [employer]TER Work Phone: [facility] Start: 01-17-2024 End: 01-17-2024 Bamboo flowsheet Argelia Cheng [employer] Work Phone: [facility] Start: 01-17-2024 End: 01-18-2024 Refill Trace Kelly MD Work Phone: [facility] Comment on above: 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) Start: 01-17-2024 End: 01-17-2024 Assay of hemosiderin, quant Argelia Cheng GATE [employer]TER Work Phone: [facility] Work Phone: Start: 01-17-2024 End: 01-17-2024 Patient encounter procedure Argelia Cheng [employer]TER Work Phone: [facility] Comment on above: Routine general medi korin examination at health care facility (Primary Dx) Start: 01-04-2024 End: 01-04-2024 ambulatory [facility] Start: 12-20-2023 End: 12-20-2023 Discharged Recurring MD Jackelyn Guillory Work Phone: [facility] Work Phone: Start: 12-20-2023 End: 12-20-2023 ambulatory MD Jackelyn Guillory Work Phone: [facility] Work Phone: Start: 11-23-2023 End: 11-23-2023 Clinisync Result Encounter Generic External Data Provider [facility] Unsolicited Start: 11-23-2023 End: 11-23-2023 Clinisync Result Encounter Generic External Data Provider [facility] Unsolicited Start: 11-23-2023 Non-patient / Non-visit MD Rowan Guillory Work Phone: [facility] Work Phone: Start: 11-16-2023 End: 11-16-2023 ambulatory [facility] Work Phone: Start: 11-16-2023 End: 11-16-2023 Patient encounter procedure [facility] Roger Work Phone: Start: 11-08-2023 Non-patient / Non-visit [facility] Work Phone: Start: 10-12-2023 End: 10-12-2023 ambulatory [facility] Start: 03-09-2023 End: 03-09-2023 ambulatory Aziz Bakhous Other [employer] Other Start: 03-09-2023 Office outpatient vi sit 25 minutes Aziz Bakhous [facility] Start: 08-03-2022 End: 08-04-2022 ambulatory AZIZ BAKHOUS Facility:[facility] Start: 07-15-2022 Encounter for other preprocedural examination DR ABBY AZEVEDO [facility] Start: 07-09-2022 End: 07-10-[address] ABBY [...] 04-07-2022 End: 04-07-2022 ambulatory Aziz Bakhous Other [employer] Other Start: 04-07-2022 Office outpatient ne w 30 minutes Aziz Bakhous [facility] Start: 01-23-2022 End: 01-24-2022 ambulatory LUIS SAMSA . Facility:[facility] Start: 01-19-2022 End: 01-20-2022 ambulatory LUIS SAMSA . 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 Start: 08-02-2024 ALL CBC WITH AUTO DIFF Nolvia Jimenez [employer] Work Phone: Start: 07-27-2024 Culture bacterial quanttative colony count urine Nolvia Jimenez [employer] Work Phone: Start: 07-26-2024 ALL CBC WITH AUTO DIFF Nolvia Jimenez [employer] Work Phone: Start: 07-25-2024 ALL CBC WITH AUTO DIFF Generic External Data Provider Start: 07-17-2024 [facility] URINE T PROTEIN CREAT RATIO Generic External Data Provider Start: 06-26-2024 ALL CBC WITH AUTO DIFF Generic External Data Provider Start: 02-02-2024 [facility] URINE T PROTEIN CREAT [...] Medicare Annual Wellness (AWV) [facility] Start: 01-16-2025 Pneumococcal Vaccine : 65+ Years (1 of 2 - PCV) Pneumococcal Vaccine: 65+ Years (1 of 2 - PCV) [facility] Comment on above: Postponed from 05/25 (Patient Refused) Postponed from 05/25 (Patient Refused) Start: 11-27-2024 Influenza vaccination Influenz a Vaccine (Season Ended) [facility] Start: 09-05-2024 End: 09-05-2024 [facility] Start: 08-03-2024 Influenza vaccination Influenza Vacc ine (#1) [facility] Comment on above: Postponed from 11/27 (Patient Refused) Start: 08-02-2024 End: 07-26-2025 C reactive protein [Mass/volume] in Serum or Plasma C-reactive protein Lab Routine CRP elevated Expected: 08/02/2024 (Approximate), Expires: 07/26/2025 [facility] Comment on above: Expected: 08/02/2024 (Approximate), Expires: 07/26/2025 Start: 08-02-2024 End: 07-26-2025 CBC W Auto Differential panel - Blood CBC and differential Lab Routine Leukocytosis, unspecified type Expected: 08/02/2024 (Approximate), Expires: 07/26/2025 [facility] Work Phone: Comment on above: Expected: 08/02/2024 (Approximate), Expires: 07/26/2025 Start: 07-27-2024 Bacteria identified in Urine by Culture [facility] Start: 07-27-2024 Urine culture [facility] Start: 07-26-2024 End: 07-26-2025 Bacteria identified in Urine by Culture Urine culture (clean catch) Microbiology Routine Leukocytosis, unspecified type Expected: 07/26/2024 (Approximate), Expires: 07/26/2025 [facility] Comment on above: Expected: 07/26/2024 (Approximate), Expires: 07/26/2025 Start: 07-26-2024 End: 07-26-2025 C reactive protein [Mass/volume] in Serum or Plasma C-reactive protein Lab Routine Leukocytosis, unspecified type Expected: 07/26/2024 (Approximate), Expires: 07/26/2025 [facility] Comment on above: Expected: 07/26/2024 (Approximate), Expires: 07/26/2025 Start: 07-26-2024 End: 07-26-2025 CBC W Auto Differential panel - Blood CBC and differential Lab Routine Leukocytosis, unspecified type Expected: 07/26/2024 (Approximate), Expires: 07/26/2025 [facility] Work Phone: Comment on above: Expected: 07/26/2024 (Approximate), Expires: 07/26/2025 Start: 07-26-2024 End: 07-26-2025 Comprehensive metabolic 2000 panel - Serum or Plasma Comprehensive metabolic panel Lab Routine Leukocytosis, unspecified type Expected: 07/26/2024 (Approximate), Expires: 07/26/2025 [facility] Comment on above: Expected: 07/26/2024 (Approximate), Expires: 07/26/2025 Start: 07-26-2024 End: 07-26-2025 Erythrocyte sedimentation rate Sedimentation rate, automated Lab Routine Leukocytosis, unspecified type Expected: 07/26/2024 (Approximate), Expires: 07/26/2025 [facility] Comment on above: Expected: 07/26/2024 (Approximate), Expires: 07/26/2025 Start: 07-26-2024 End: 07-26-2025 Peripheral blood smear Peripheral blood smear Pathology and Cytology Routine Leukocytosis, unspecified type Expected: 07/26/2024 (Approximate), Expires: 07/26/2025 [facility] Comment on above: Expected: 07/26/2024 (Approximate), Expires: 07/26/2025 Start: 07-26-2024 End: 07-26-2025 Urinalysis complete panel - Urine Urinalysis with reflex microscopic (clean catch) Lab Routine Leukocytosis, unspecified type Expected: 07/26/2024 (Approximate), Expires: 07/26/2025 [facility] Comment on above: Expected: 07/26/2024 (Approximate), Expires: 07/26/2025 Start: 06-08-2024 End: 06-08-2024 Patient encounter procedure 06/08/2024 2:40 PM EDT Office Visit [facility] [address] [place] [address] Nolvia Jimenez NP [address] [place] [address] Coronary artery disease involving la jolla coronary artery of la jolla heart without angina pectoris (CMS/HCC) (Primary Dx); Morbid (severe) obesity due to excess calories (CMS/HCC); Essential (primary) hypertension (CMS/HCC); Body mass index (BMI) 35.0-35.9, adult; Chronic obstructive pulmonary disease, unspecified (CMS/HCC); Chronic kidney disease, stage 3b (HCC) (CMS/HCC); Hypomagnesemia; Mixed hyperlipidemia (CMS/HCC) [facility] Comment on above: Coronary artery dise ase involving la jolla coronary artery of la jolla heart without angina pectoris (CMS/HCC) (Primary Dx); Morbid (severe) obesity due to excess calories (CMS/HCC); Essential (primary) hypertension (CMS/HCC); Body mass index (BMI) 35.0-35.9, adult; Chronic obstructive pulmonary disease, unspecified (CMS/HCC); Chronic kidney disease, stage 3b (HCC) (CMS/HCC); Hypomagnesemia; Mixed hyperlipidemia (CMS/HCC) Start: 06-08-2024 End: 06-08-2024 Patient encounter procedure 06/08/2024 1:30 PM EDT Office Visit [facility] [address] [place] [address] Argelia Cheng NP [address] [place] [address] [facility] Start: 04-26-2024 End: 04-26-2024 Patient encounter procedure 04/26/2024 3:30 PM EST Office Visit [facility] [address] [place] [address] Argelia Cheng NP [address] [place] [phone] [facility]rived [facility] Comment on above: Arrived Start: 04-18-2024 End: 04-18-2024 Patient encounter procedure [facility] Comment on above: Arrived Start: 04-12-2024 Screening for malign ant neoplasm of colon Colorectal Cancer Screening [facility] Comment on above: Postponed from 05/25 (Patient Refused) Start: 03-13-2024 Influenza vaccination Influenza Vacc ine (#1) [facility] Comment on above: Postponed from 11/27 (Patient Refused) Start: 01-17-2024 End: 01-17-2024 Patient encounter procedure 01/17/2024 1:00 PM EDT Office Visit [facility] [address] [place] [phone] Argelia Cheng NP [address] [place] [address] [facility] Start: 01-15-2024 Medicare Annual Well ness (AWV) Medicare Annual Wellness (AWV) [facility] Start: 11-28-2023 Influenza vaccination Influenza Vacc ine (#1) [facility] Start: 1961 Pneumococcal Vaccine : 65+ Years (1 of 2 - PCV) Pneumococcal Vaccine: 65+ Years (1 of 2 - PCV) [facility] Start: 1955 Screening for malign ant neoplasm of colon [facility] Renal function 1999 panel - Serum or Plasma [facility] Renal function 2000 panel - Serum or Plasma [facility] Payers Date Payer Category Payer Medicare [employer]IC[employer] ADVANTAGE [employer]IC[employer]AGE [id number] 2020-Present [address] [address] [place] [id number] 2020 Medicare (Managed Care) [facility] ADVANTAGE [id number] 1959 Medicare [id number] 1959 Self-pay 1953 Unknown [id number]. 2.593 1953 Unknown [id number] [id number]. 2.593 1953 Unknown [id number] 2.840.1.277023.3.579. 2.593 1953 Unknown [id number] 2.16.840.1.680800.3.579. 2.593 1953 Unknown [id number] 2.16.840.1.880615.3.579. 2.593 1953 Unknown [id number] 2.16.840.1.178621.3.579. 2.593 1953 Unknown [id number] 2.16.840.1.977885.3.579. 2.593 1953 Unknown [id number] 2.16.840.1.802330.3.579. 2.593 1953 Unknown [id number] 2.16.840.1.915366.3.579. 2.1259 1953 Unknown [id number] 2.16.840.1.855800.3.579. 2.1259 1953 Unknown [id number] [id number]. 2.1259 1953 Unknown [id number] [id number]. 2.1259 Unknown [id number] [id number]. 2.593 Unknown [id number] [id number]. 2.531 Unknown [id number] [id number]. 2.531 Social History Date Type Detail Facility Unknown if ever smoked [facility] Other Start: 04-12-2023 End: 06-08-2024 Sex Assigned At [facility] Other Start: 11-16-2023 End: 04-18-2024 Tobacco smoking status MTIS Ex-smoker (finding) [facility] Start: 1955 Sex Assigned At Female [facility] Start: 03-29-1985 End: 03-29-2015 History of tobacco use Current smoker [facility] Start: 03-29-1985 End: 03-29-2015 History of tobacco use Cigarette Smoker [facility] Start: 04-12-2023 End: 06-08-2024 Cigarettes smoked current (pack per day) - Reported 1 [facility] Start: 04-12-2023 End: 04-18-2024 Tobacco use and exposure Smokeless tobacco non-user [facility] Start: 04-12-2023 End: 06-08-2024 Alcoholic beverage intake Lifetime non-drinker (finding) [facility] Do you feel stress - tense, restless, nervous, or anxious, or unable to sleep at night because your mind is troubled all the time - these days [OSQ] Only a little [facility] Start: 1955 Sex assigned at Not on file [facility] How often do you nee d to have someone help you when you read instructions, pamphlets, or other written material from your doctor or pharmacy [SILS] Never [facility] Do you belong to any clubs or organizations such as oriental orthodox groups, unions, fraternal or athletic groups, or school groups? No [facility] Are you now , , , , never or living with a partner? [facility] How often to you hav e a drink containing alcohol? Never [facility] (I/We) worried wheth er (my/our) food would run out before (I/we) got money to buy more. Never true [facility] Start: 07-25-2024 End: 07-28-2024 Sex Female (finding) [facility] Goals Date Patient Goal Desired Activity /State Clinical Notes 04-07-2022 to 08-01-2024 Note Date & Type Note Facility 08-01-2024 Note [facility] Cardiology Clinic Note Chief Complaint: Patient here for follow up heart cath and Dr. Loo office visit. Patient states she has no cardiac complaints. HPI: Susana Juares is a 69 y.o. female with a history of coronary artery disease, prior stent placement, COPD, nonsustained ventricular tachycardia here due to worsening symptoms. For the past several months, she has noticed worsening shortness of breath. Her cloud engagement partner adjusted her inhalers but this does not [...] were discovered on a workup for arrhythmias. UPDATE 08/01/2024 Doing well; no new symptoms. No chest pain. Shortness of breath is stable if not better. She did stop the Farxiga; her labs were slightly abnormal. She has been following up with her primary care provider. Also follows up with pulmonology. Cardiology ROS: Review of Systems Cardiovascular: Positive for dyspnea on exertion and leg swelling (intermittent). Respiratory: Positive for shortness of breath. All other systems reviewed and are negative. Past Medical History She has a past medical history of Abnormal ECG, Chronic GERD (12/28/2016), Chronic kidney disease, COPD (chronic obstructive pulmonary disease) ([facility]), Coronary artery disease, Coronary artery disease involving la jolla coronary artery of la jolla heart without angina pectoris (12/28/2016), Essential hypertension [...] and Vancomycin Medications Current Outpatient Medications: albuterol 90 mcg/actuation inhaler, Inhale 2 puffs every 4 (four) hours if needed for shortness of breath., Disp: , Rfl: aspirin 81 mg EC tablet, Take 81 mg by mouth in the morning., Disp: , Rfl: atorvastatin (Lipitor) 80 mg tablet, Take 1 tablet (80 mg) by mouth in the morning., Disp: 90 tablet, Rfl: 3 cholecalciferol (Vitamin D-3) 50 MCG (2000 UT) tablet, Take 2,000 Units by mouth in the morning., Disp: , Rfl: cyclobenzaprine (Flexeril) 10 mg tablet, Take 10 mg by mouth if needed in the morning, at noon, and at bedtime for muscle spasms., Disp: , Rfl: dapagliflozin propanediol (Farxiga) 10 mg, Take 1 tablet (10 mg) by mouth in the morning., Disp: 30 tablet, Rfl: 3 dupilumab (Dupixent Syringe) 100 mg/0.67 mL syringe, Inject 300 mg under the skin every 14 (fourteen) days., Disp: , Rfl: fluticasone propion-salmeteroL (Advair Diskus) 250-50 mcg/dose diskus inhaler, Inhale 1 puff two times daily., Disp: , Rfl: furosemide (Lasix) 20 mg tablet, Take 1 tablet (20 mg) by mouth every other day., Disp: 15 tablet, Rfl: 0 ipratropium-albuteroL (Duo-Neb) 0.5-2.5 mg/3 mL nebulizer solution, Take 3 mL by nebulization 4 times a day., Disp: , Rfl: isosorbide mononitrate ER (Imdur) 60 mg 24 hr tablet, Take 1 tablet (60 mg) by mouth once daily as directed. Do not crush or chew., Disp: 30 tablet, Rfl: 3 magnesium oxide-pyridoxine HCl (Beelith) 362-20 mg tablet, Take 1 tablet by mouth in the morning., Disp: , Rfl: metoprolol succinate XL (Toprol-XL) 50 mg 24 hr tablet, Take 1 tablet (50 mg) by mouth two times daily. Do not crush or chew., Disp: 60 tablet, Rfl: 0 metoprolol tartrate (Lopressor) 50 mg tablet, Take 1 tablet (50 mg) by mouth two times daily., Disp: 180 tablet, Rfl: 3 olmesartan (BENIcar) 40 mg tablet, Take 1 tablet (40 mg) by mouth once daily as directed., Disp: 90 tablet, Rfl: 3 omeprazole (PriLOSEC) [address] capsule, Take 20 mg by mouth before breakfast., Disp: , Rfl: predniSONE (Deltasone) 10 mg tablet, Take 20 mg by mouth in the morning., Disp: , Rfl: Trelegy Ellipta 100-62.5-25 mcg blister with device, Inhale 1 puff in the morning., Disp: , Rfl: Last Recorded Vitals BP 133/74 (BP Location: Left arm, Patient Position: Sitting) Pulse 70 Ht 1.6 m (5' 3 ) Wt 89.8 kg (198 lb) SpO2 98% BMI 35.07 kg/m??? Physical Examination: GENERAL: alert and oriented x3, well developed, in (more content not included)... [facility] 07-26-2024 Evaluation note Diagnosis Stage 3a chronic kidney disease (HCC) (CMS/HCC)- Primary Other hyperlipidemia Coronary artery disease involving [place] coronary artery of [place] heart without angina pectoris (CMS/HCC) Irregular heartbeat- Primary Unspecified cardiac dysrhythmia Essential (primary) hypertension (CMS/HCC)- Primary Unspecified essential hypertension Morbid (severe) obesity due to excess calories (CMS/HCC) Body mass index (BMI) 35.0-35.9, adult Chronic obstructive pulmonary disease, unspecified Chronic kidney disease, stage 3b (HCC) (CMS/HCC) Coronary artery disease involving [place]olla coronary artery of [place] heart without angina pectoris (CMS/HCC) Hypomagnesemia Disorders of magnesium metabolism Mixed hyperlipidemia (CMS/HCC) Mixed hyperlipidemia Chronic low back pain, unspecified back pain laterality, unspecified whether sciatica present Leukocytosis, unspecified type- Primary [facility] [id number] Evaluation note* Diagnosis Stage 3a chronic kidney disease (HCC) (CMS/HCC)- Primary Other hyperlipidemia Coronary artery disease involving la jolla coronary artery of [place] heart without angina pectoris (CMS/HCC) Irregular heartbeat- Primary Unspecified cardiac dysrhythmia Essential (primary) hypertension (CMS/HCC)- Primary Unspecified essential hypertension Morbid (severe) obesity due to excess calories (CMS/HCC) Body mass index (BMI) 35.0-35.9, adult Chronic obstructive pulmonary disease, unspecified Chronic kidney disease, stage 3b (HCC) (CMS/HCC) Coronary artery disease involving la jolla coronary artery of [place] heart without angina pectoris (CMS/HCC) Hypomagnesemia Disorders of magnesium metabolism Mixed hyperlipidemia (CMS/HCC) Mixed hyperlipidemia Chronic low back pain, unspecified back pain laterality, unspecified whether sciatica present Leukocytosis, unspecified type- Primary CRP elevated Elevated C-reactive protein (CRP) documented in this encounter [facility] [id number] Evaluation note* Diagnosis Onset Date Resolution Status Admit Date Anemia acute July 25 1:35pm Hyperkalemia acute July 25, 2024 1:35pm Hyperparathyroidism acute July 25, 2024 1:35pm Hypertensive nephropathy acute July 25, 2024 1:35pm Hyperuricemia acute July 25, 2024 1:35pm Hypomagnesemia acute June 1:35pm Hyponatremia acute July 25, 2024 1:35pm Stage 3b chronic kidney disease acut e July 25, 2024 1:35pm Vitamin D deficiency acute Apri l 2024 1:35pm [facility] Work Phone: [phone]) 371-296704-07-2025 NoteIV fluid bolus at 999ml per hr started. Patient states feeling lightheaded. Placed in reverse trendelenburg. States feels better with change in position [facility]03-31-2025 NoteDrLissett Azevedo made aware - patient is coming for R/Cors on 07/03/24 (procedure at 10:30am). She had labs on 06/26/2024. BUN 23 (normal 7.0-18.0), creat 1.34 (normal 0.55-1.02). She has a history of CKD (per her clinic note).[facility]03-20-[facility] Chief Complaint: Patient here for follow up chest pain and addition of Ranexa per Dr. Mustafa. She thinks she's more SOB now that she's on it. Denies chest pain, palpitations, and lightheadedness/syncope. HPI: Susana Juares is a 69 y.o. female with a history of coronary artery disease, prior stent placement, COPD, nonsustained ventricular tachycardia here due to worsening symptoms. For the past several months, she has noticed worsening shortness of breath. Her cloud engagement partner adjusted her inhalers but this does not [...] kidney disease, COPD (chronic obstructive pulmonary disease) ([facility]), Coronary artery disease, Coronary artery disease involving la jolla coronary artery of [place] heart without angina pectoris (12/28/2016), Essential hypertension [...] Rfl: 3 cholecalciferol (Vitamin D-3) 50 MCG (2000 UT) tablet, 1 (one) time each day [...] (Effient) 10 mg table (more content not included)...[facility]03-13-2025 History of Present illness Narrative* Nolvia Jimneez NP - 06/08/2024 5:05 PM EDTAssociated Problem(s): Lower back pain Flexeril prn * DE CARDOSO - 06/08/2024 2:40 PM EDT Pt is discontinue the Advair in 4 days and is going trelogy- dr loo * Nolvia Jimenez NP - 06/08/2024 2:40 PM EDT Images from the original note were not included. Susana Juares is a 69 y.o. female presents with chief complaint of No chief complaint on file. HPI: COPD: sees dr loo, inhalers and dupixent Cardiology: sees regularly, does cardiac rehab as well Hypertension This is a chronic problem. The current episode started more than 1 year ago. The problem is unchanged. The problem is controlled. Associated symptoms include peripheral edema and shortness of breath.Pertinent negatives include no blurred vision, chest pain, headaches, neck pain or palpitations. There are no associated agents to hypertension. Risk factors for coronary artery disease include dyslipidemia, obesity, sedentary lifestyle and smoking/tobacco exposure. Past treatments include beta blockers, angiotensin blockers and direct vasodilators. The current treatment provides significant improvement. There are no compliance problems. Hypertensive end-organ damage includes kidney disease andCAD/CT. Identifiable causes of hypertension include chronic renal [...] albuterol, trelegy, Under the care of pulmonology [facility] Coronary artery disease involving la jolla coronary artery of [place] heart without angina pectoris (CMS/HCC) (Chronic) Under [...] Check labs yearly and prn dose changes * Nolvia Jimenez NP - 06/08/2024 7:42 AM EDTAssociated Problem(s): Mixed hyperlipidemia (CMS/HCC) Statin therapy Check labs yearly and prn dose changes * Nolvia Jmienez NP - 06/08/2024 7:41 AM EDTAssociated Problem(s): Hypomagnesemia Takes magnesium supplement Check labs yearly and prn dose changes or changes in symtpoms * Nolvia Jimenez NP - 06/08/2024 7:41 AM EDTAssociated Problem(s): Morbid (severe) obesity due to excess calories ([facility]/HCC) Discussed with patient their BMI (actual, verses recommended). We have also discussed lifestyle modifications: attempts to perform physical activity as chronic conditions allow, also to monitor dietary intake: increasing protein/fruits/veggies and lowering carb intake (unless contraindicated). Limit sodas, juices, and sugary drinks. * Nolvia Jimenez NP - 06/08/2024 7:40 AM EDTAssociated Problem(s): Chronic kidney disease, stage 3b (HCC) ([facility]) Goal to keep blood pressure well control Avoid nephrotoxic drugs if possible Continue w nephrology * Nolvia Jimenez NP - 06/08/2024 7:40 AM EDTAssociated Problem(s): Essential (primary) hypertension ([facility]/HCC) Please check blood pressure daily and record DASH diet Limit caffeine Take medication as directed Contact office if chest pain, pressure, dizziness, shortness of breath, swelling legs Recommend slow position changes Current meds: arb, b fernando, nitrate * Nolvia Jimenez NP - 06/08/2024 7:39 AM EDTAssociated Problem(s): Coronary artery disease involving la jolla coronary artery of [place] heart without angina pectoris ([facility]/HCC) Under the care of cardiology Current meds: statin, asa, imdur, b fernando, arb, diuretic, and ranexa Aggressive risk factor modification * Nolvia Jimenez NP - 06/08/2024 7:38 AM EDTAssociated Problem(s): Chronic obstructive pulmonary disease, unspecified (CMS/HCC) Current meds: albuterol, trelegy, Under the care of pulmonology [facility] documented in this encounterSS[facility] [id number] Evaluation note* Diagnosis Stage 3a chronic kidney disease (HCC) (CMS/HCC)- Primary Other hyperlipidemia (CMS/HCC) Coronary artery disease involving [place] coronary artery of [place] heart without angina pectoris (CMS/HCC) Irregular heartbeat- Primary Unspecified cardiac dysrhythmia Essential (primary) hypertension (CMS/HCC)- Primary Unspecified essential hypertension Morbid (severe) obesity due to excess calories (CMS/HCC) Body mass index (BMI) 35.0-35.9, adult Chronic obstructive pulmonary disease, unspecified (CMS/HCC) Chronic kidney disease, stage 3b (HCC) (CMS/HCC) Coronary artery disease involving la [place]olla coronary artery of [place] heart without angina pectoris (CMS/HCC) Hypomagnesemia Disorders of magnesium metabolism Mixed hyperlipidemia (CMS/HCC) Mixed hyperlipidemia Chronic low back pain, unspecified back pain laterality, unspecified whether sciatica present documented in this encounter [facility] [id number] NoteUT Electrophysiology Consult Note Reason for visit: [...] normal sinus rhythm without much PVCs. Dr. Loo's note on 07/17/2023 makes mention of she [...] and effient. She was recently seen at [facility] as a transfer from [facility] for complaints of symptomatic wide-complex tachycardia [...] kidney disease COPD (chronic obstructive pulmonary disease) ([facility]) Coronary artery disease Coronary artery disease involving la jolla coronary artery of [place] heart without angina pectoris 12/28/2016 Essential hypertension 12/14/2016 Hyperlipidemia Lower back pain 12/28/2016 Mixed hyperlipidemia 12/14/2016 Shortness of breath 12/28/2016 PSH: Past Surgical History: Procedure Laterality Date CARDIAC CATHETERIZATION CHOLECYSTECTOMY CORONARY STENT PLACEMENT HYSTERECTOMY SH: Social Determinants of Health Tobacco Use: Medium Risk (04/26/2024) Received from [facility] Healthcare Patient History Smoking Tobacco Use: Former Smokeless Tobacco Use: Never Passive Exposure: Not on file Alcohol Use: Not At Risk (01/14/2019) Received from [facility] Frequency of Alcohol Consumption: Monthly or less Average Number of Drinks: 1 or 2 Frequency of Binge Drinking: Never Financial Resource Strain: Low Risk (10/26/2022) Overall [employer] (more content not included)...[facility]01-29-2025 History of Present illness Narrative* Argelia [...] Follow-up. HPI Was seen at hospital overnight -04/19 Pt was treated for hypertensive emergency. Metoprolol [...] weeks with BP readings. documented in this encounterSSM [facility] [id number] Instructions* Patient Instructions* Argelia Cheng NP - [...] numbness/tingling GO TO ER!!! documented in this encounterSSM [facility] [id number] Evaluation note* Diagnosis Stage 3a chronic kidney disease (HCC) ([facility]/HCC)- Primary Other hyperlipidemia ([facility]/HCC) Coronary artery disease involving la jolla coronary artery of [place] heart without angina pectoris ([facility]/HCC) Irregular heartbeat- Primary Unspecified cardiac dysrhythmia Essential hypertension ([facility]/HCC)- Primary Unspecified essential hypertension documented in this encounter [facility] [id number] History of Present illness Narrative* Argelia Cheng NP - 04/18/2024 2:57 PM ESTAssociated Problem(s): Irregular heartbeat Intermittent shortness of breath, swelling in legs, heart skipping beats, fatigue. Irregular rhythm in office today. Advised pt to report to ER for further eval and treatment * Argelia NIXON Cheng - 04/18/2024 2:00 PM EST Images from the original note were not included. Subjective Patient ID: Susana Juares is a 68 y.o. female who presents for Follow-up. HPI Specialists: Cardiology- [facility] Nephrology- Dr. Madrid Pulmonology- Dr. Loo Intermittent shortness of breath, swelling in legs, [...] further eval and treatment documented in this encounterSSM [facility] [id number] Evaluation note* Diagnosis Stage 3a chronic kidney disease (HCC) (CMS/HCC)- Primary Other hyperlipidemia (CMS/HCC) Coronary artery disease involving la jolla coronary artery of [place] heart without angina pectoris (CMS/HCC) Irregular heartbeat- Primary Unspecified cardiac dysrhythmia documented in this encounter [facility] [id number] Evaluation note* Diagnosis Stage 3a chronic kidney disease (HCC) (CMS/HCC)- Primary Other hyperlipidemia (CMS/HCC) Coronary artery disease involving la jolla coronary artery of [place] heart without angina pectoris (CMS/HCC) Stage 3a chronic kidney disease (HCC) (CMS/HCC)- Primary documented in this encounter [facility] [id number] History of Present illness Narrative* Argelia Cheng NP - 01/17/2024 1:00 PM EDT Images from the original note were not included. Subjective : Chief Complaint: Susana Juares is an 68 y.o. female here for an annual wellness visit. Specialists: Cardiology- [facility], [place] Pulmonology- Dr. Loo Nephrology- Dr. Madrid I have reviewed and [...] on January 17, 2024 documented in this encounterSSM DePaul Health [id number] NoteUT Electrophysiology Consult Note Reason for visit: [...] normal sinus rhythm without much PVCs. Dr. Loo's note on 07/17/2023 makes mention of she [...] and effient. She was recently seen at [facility] as a transfer from [facility] for complaints of symptomatic wide-complex tachycardia [...] Coronary artery disease Coronary artery disease involving la jolla coronary artery of [place] heart without angina pectoris 12/28/2016 Essential hypertension [...] Places Lived in the (more content not included)...[facility]07-16-2024 NoteUT Electrophysiology Consult Note Reason for visit: PVC induced NSVT, on amiodarone 10/12/23 Patient was still on amiodarone. her pulse check today reveals normal sinus rhythm without much PVCs. Dr. Loo's note on 07/17/2023 makes mention of she [...] and effient. She was recently seen at [facility] as a transfer from [facility] for complaints of symptomatic wide-complex tachycardia [...] kidney disease COPD (chronic obstructive pulmonary disease) ([facility]) Coronary artery disease Coronary artery disease involving la jolla coronary artery of [place] heart without angina pectoris 12/28/2016 Essential hypertension [...] Intimate Partner Violence: Not At Risk (10/26/2022) OR Safety & Environment Fear of Current or [...] %) nebulizer solution INHA (more content not included)...[facility]12-12-2023 Evaluation note* Encounter Date Diagnosis Assessment [...] deficiency (ICD-10 - E55.9) continue VD supplement [facility] Other 01-10-2023 Evaluation note* Encounter Date Diagnosis [...] I will recheck sodium level next visit [facility] Other Evaluation note* Diagnosis Onset Date Resolution Status Anemia acute Hyperkalemia acute Hypertensive nephropathy acu te Hyperuricemia acute Hypomagnesemia acute Hyponatremia acute Stage 3b chronic kidney disease acute Vitamin D deficiency acute [facility] Work Phone: Evaluation note* Diagnosis Stage 3a chronic kidney disease (HCC) (CMS/HCC)- Primary Other hyperlipidemia (CMS/HCC) Coronary artery disease involving la jolla coronary artery of [place] heart without angina pectoris (CMS/HCC) Routine general medical examination at health care facility- Primary Routine general medical examination at a health care facility documented in this encounter [facility] HealthcareEvaluation note* Diagnosis Stage 3a chronic kidney disease (HCC) (CMS/HCC)- Primary Other hyperlipidemia (CMS/HCC) Coronary artery disease involving [place] coronary artery of [place] heart without angina pectoris (CMS/HCC) Other hyperlipidemia (CMS/HCC) documented in this encounter [facility] HealthcareEvaluation note* Diagnosis Stage 3a chronic kidney disease (HCC) (CMS/HCC)- Primary Other hyperlipidemia (CMS/HCC) Coronary artery disease involving [place] j[place] coronary artery of [place] heart without angina pectoris (CMS/HCC) Irregular heartbeat- Primary Unspecified cardiac dysrhythmia Essential hypertension (CMS/HCC)- Primary Unspecified essential hypertension documented in this encounter [facility] HealthcareHistory general Narrative - Reported* Type Description Date Medical History CHRONIC OBSTRUCTIVE PULMONARY DI SEASE Medical History HYPERTENSION Medical History GERD Medical History HYPERLIPIDEMIA Medical History HEART ATTACK Surgical History HYSTERECTOMY Surgical History GALL BLADDER Surgical History TUBES TIED Surgical History 2 HEART STENTS Hospitalization History SEE ABOVE [facility] Other History general Narrative - Reported* Type Description Date Medical History CHRONIC OBSTRUCTIVE PULMONARY DI SEASE Medical History HYPERTENSION Medical History GERD Medical History HYPERLIPIDEMIA Medical History HEART ATTACK Medical History V-TACH Surgical History HYSTERECTOMY Surgical History GALL BLADDER Surgical History TUBES TIED Surgical History 2 HEART STENTS Surgical History HEART CATH AND STENT PLACEMENT 07/14/2022 Hospitalization History SEE ABOVE Hospitalization History V-TACH [facility] Other Summary Purpose Family History No Family [...] Complaint and Reason for Visit Chief Complaint Admit Date RENAL 6 MONTH F/U July 25, 2024 1:3 5pm Unknown July 26, 2024 11: 53am Reason for Visit Admit Date Anemia July 25, 2024 1:3 5pm Hyperkalemia July 25, 2024 1:3 5pm Hyperparathyroidism July 25, 2024 1:3 5pm Hypertensive nephropathy July 25 1:35pm Hyperuricemia July 25, 2024 1:3 5pm Hypomagnesemia July 25, 2024 1:3 5pm Hyponatremia July 25, 2024 1:3 5pm Stage 3b chronic kidney disease July 252024 1:35pm Vitamin D deficiency July 25, 2024 1: 35pm Chief Complaint RENAL 6 MONTH F/U Reason for Visit Anemia Hyperkalemia Hypertensive nephropathy Hyperuricemia Hypomagnesemia Hyponatremia Stage 3b chronic kidney disease Vitamin D deficiency Chief Complaint RENAL 6 MONTH F/U D64.9, N18.32 Reason for Visit Anemia Hyperkalemia Hypertensive nephropathy Hyperuricemia Hypomagnesemia Hyponatremia Stage 3b chronic kidney disease Vitamin D deficiency Chief Complaint Admit Date RENAL 6 MONTH F/U July 25, 2024 1:3 5pm Additional Source Comments REASON FOR VISIT (unrecogniz ed section and content) Reason Comments Annual Exam Annual wellness Reason Onset Date Comments Med Refill 01/17/2024 Reason Onset Date Comments Med Refill 04/03/2024 Reason Comments Follow-up Reason Comments Hospital Follow-up INFORMATION SOURCE (unrecogn ized section and content) DATE CREATED AUTHOR 08/07/2022 [facility] DATE CREATED AUTHOR AUTHOR'S ORGANIZ ATION 06/11/2024 [facility] EPIC DATE CREATED AUTHOR AUTHOR'S ORGANIZ ATION 08/04/2024 [facility] DATE CREATED AUTHOR AUTHOR'S ORGANIZ ATION 08/07/2024 [facility] y[facility] Care Teams (unrecognized sec tion and content) [...] December 20, 2023 End: December 20, 2023 KARO Santos Primary Care Provider Active Start: November 282023 End: December 20, 2023 Linux Network Administrator Relationship Specialty Start Date End Date Shaikh Larios MD [address] [place] [address] PCP - Alexx FLOWER 04/29/23 Trace Kelly MD [address] [place] [address] PCP - General Family Medicine 11/10/23 Argelia Cheng NP [address] [place] [address] Nurse Practitioner Family Medicine 11/10/23 [employer] Network Administrator Relationship Specialty Start Date End Date Shaikh Larios MD [address] [place] [address] PCP - Alexx FLOWER 04/29/23 Trace Kelly MD [address] [place] [address] PCP - General Family Medicine 01/17/24 Argelia Cheng NP [address] [place] [address] Nurse Practitioner Family Medicine 11/10/23 [employer] Network Administrator Relationship Specialty Start Date End Date Shaikh Larios MD [address] [place] [address] PCP Ana Lilia Coffey MA 04/29/23 Trace Kelly MD [address] [place] [address] PCP - General Family Medicine 01/17/24 Argelia Cheng NP [address] [place] [address] Nurse Practitioner Family Medicine 11/10/23 Linux Network Administrator Relationship Specialty Start Date End Date Shaikh Larios MD [address] [place] [address] PCP - Alexx [place] 04/29/23 Trace Kelly MD [address] [place] [address] PCP - General Family Medicine 01/17/24 Argelia Cheng NP [address] [place] [address] Nurse Practitioner Family Medicine 11/10/23 [employer] Network Administrator Relationship Specialty Start Date End Date Shaikh Larios MD [address] [place] [address] PCP - Alexx FLOWER 04/29/23 Trace Kelly MD [address] [place] [address] PCP - General Family Medicine 11/10/23 Argelia Cheng NP [address] [place] [address] Nurse Practitioner Family Medicine 11/10/23 Linux Network Administrator Relationship Specialty Start Date End Date Shaikh Larios MD [address] [place] [address] PCP - Alexx [place] 04/29/23 Trace Kelly MD [address] [place] [address] PCP - General Family Medicine 01/17/24 Argelia Cheng NP [address] [place] [address] Nurse Practitioner Family Medicine 11/10/23 Linux Network Administrator Relationship Specialty Start Date End Date Shaikh Larios MD [address] [place] [address] PCP - Alexx [place] 04/29/23 Trace Kelly MD [address] [place] [address] PCP - General Family Medicine 01/17/24 Argelia Cheng NP [address] [place] [address] Nurse Practitioner Family Medicine 11/10/23 Linux Network Administrator Relationship Specialty Start Date End Date Shaikh Larios MD [address] [place] [address] PCP Ana Lilia Coffey [place] 04/29/23 Trace Kelly MD [address] [place] [address] PCP - General Family Medicine 01/17/24 Argelia Cheng NP [address] [place] [address] Nurse Practitioner Family Medicine 11/10/23 Linux Network Administrator Relationship Specialty Start Date End Date Shaikh Larios MD [address] [place] [address] PCP - Alexx FLOWER 04/29/23 Trace Kelly MD [address] [place] [address] PCP - General Family Medicine 01/17/24 Argelia Cheng NP [address] [place] [address] Nurse Practitioner Family Medicine 11/10/23 Linux Network Administrator Relationship Specialty Start Date End Date Trace Kelly MD [address] [place] [address] PCP - General Family Medicine 01/17/24 Argelia Cheng NP PCP - Alexx FLOWER 03/29/24 Argelia Cheng NP Nurse Practitioner Family Medicine 11/10/23 Linux Network Administrator Relationship Specialty Start Date End Date Trace Kelly MD [address] [place] [address] PCP - General Family Medicine 01/17/24 Argelia Cheng NP PCP - Alexx FLOWER 03/29/24 Argelia Cheng NP Nurse Practitioner Family Medicine 11/10/23 Team Status: Active Member Role Status Dates Argelia Cheng NP-Chey Primary Care Provider Ac tive Start: May 02, 2024 Rob Deras DO Attending Provider Active Sta rt: May 02, 2024 Team Status: Active Member Role Status Dates Jackelyn Guillory MD Attending Provider Active Star t: July 17, 2024 Argelia Cheng NP-C Primary Care Provider Ac tive Start: July 17, 2024 Team Status: Inactive Member Role Status Dates Argelia Cheng NP-C Primary Care Provider Ac tive Start: July 25, 2024 End: July 25, 2024 Jackelyn Guillory MD Attending Provider Active Star t: July 25, 2024 End: July 25, 2024 Linux Network Administrator Relationship Specialty Start Date End Date Trace Kelly MD [address] [place] [address] PCP - General Family Medicine 01/17/24 Argelia Cheng NP PCP - Alexx FLOWER 03/29/24 Argelia Cheng NP Nurse Practitioner Family Medicine 11/10/23 Linux Network Administrator Relationship Specialty Start Date End Date Trace Kelly MD [address] [place] [address] PCP - General Family Medicine 01/17/24 Argelia Cheng NP PCP - Alexx FLOWER 03/29/24 Argelia Cheng NP Nurse Practitioner Family Medicine 11/10/23 Team Status: Inactive Member Role Status Dates Nolvia Jimenez Attending Provider Active Start: July 26, 2024 End: July 26, 2024 Linux Network Administrator Relationship Specialty Start Date End Date Trace Kelly MD [address] [place] [address] PCP - General Family Medicine 01/17/24 Argelia Cheng NP PCP - Alexx [place] 03/29/24 Argelia Cheng NP Nurse Practitioner Family [...] BE BASED ON THE PRIMARY CLINICAL RECORDS. [employer] provides no warranty or guarantee of the accuracy or completeness of information in this document.
--- OUTSIDE RECORDS SUMMARY | 2024-09-03 04:39 | XMS_ITS | Encounter Summary ---
Author Organization [facility] Address [address] [place] [address] Care Team Providers Care Ladderman Name Role Phone Shaikh ROCAEL Larios Unavailable [phone] Argelia Cheng POWERHOUSE ATTENDANT Unavailable [phone] Trace Kelly MD Primary Care Provider Argelia Cheng POWERHOUSE ATTENDANT Unavailable Encounter Details Date Type Department Care Team (Late st Contact Info) Description 02/16/2024 Orders Only [facility] [address] [place] [address] Shaikh Larios MD [address] [facility] [place] [address] Social History Tobacco Use Types Packs/Day Years Used Date Smoking Tobacco: Former Cigarettes - 2015 Smokeless Tobacco: Never Alcohol Use Standard Drinks/Week Comments Never 0 (1 standard drink = 0.6 oz pur e alcohol) [facility] [place] of Occupat ional Health - Occupational Stress Questionnaire Answer Date Recorded Do you feel stress - tense, restless, nervous, or anxious, or unable to sleep at night because your mind is troubled all the time - these days? Only a little 04/08/2023 Exercise Vital Sign Answer Date Recorde d On average, how many days pe r week do you engage in moderate to strenuous exercise (like a brisk walk)? 1 day 04/08/2023 On average, how many minutes do you engage in exercise at this level? 30 min 04/08/2023 Comments Unknown Sex and Gender Information Value Date Recorded Sex Assigned at Not on file Legal Sex Female 3:02 PM EDT Gender Identity Not on file Sexual Orientation Not on file documented as of this encounter Plan of Treatment Upcoming Encounters Date Type Department Care Team (Late st Contact Info) Description 09/05/2024 11:30 AM EDT Office Visit [facility] [address] [place] [address] Nolvia Jimenez NP [address] [place] [address] documented as of this encounter Procedures Procedure Name Priority Date/Time Associated Diagnosis Comments LAB COLOGUARD COLON CANCER SCREEN Routine 02/15/2024 10:21 AM EST documented in this encounter Results * Cologuard?? colon cancer screening (02/15/2024 10:21 AM EST) Stool us Shaikh Ric [facility] ORDER ADRIEN Final Result documented in this encounter Visit Diagnoses Not on filedocumented in this encounter Care Teams Ladderman Relationship Specialty Start Date End Date Shaikh Larios MD [address] [place] [address] PCP - Alexx FLOWER 04/29/23 03/28/24 Trace Kelly MD [address] [place] [address] PCP - General Family Medicine 01/17/24 Argelia Cheng NP PCP - Alexx FLOWER 03/29/24 Argelia Cheng NP [address] [place] [address] Nurse Practitioner Family Medicine 11/10/23 documented as of this encounter
--- OUTSIDE RECORDS SUMMARY | 2024-09-03 04:39 | XMS_ITS | Clinical Summary ---
Author Organization [facility] Address [address] [place] [address] Care Team Providers Care Agriculture Technician Name Role Phone Nolvia Jimenez MD Primary Care Provider [phone] Allergies Active Allergy Reactions Criticality Noted Date [...] 09/22/2022 Active cholecalciferol (Vitamin D-3) 50 MCG (1999 UT) tablet Take 2,000 Units by mouth [...] nodules 03/02/202303/02 PVC (premature ventricular contraction) 01/01/20 History of tobacco use 12/28/2022 Other terminal block assembler (current) 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 3 12/28/2022 Non-sustained ventricular tachycardia 11/17/2022 Assessment & Plan (11/17/2022 2:13 PM EDT): Currently on amiodarone for rhythm control and toprol for rate control for NSVT and frequent PVCs Recent heart cath with non obstructive CAD- no intervention was needed RTC with EP for further management and evaluation. In light of COPD please determine with Dr Coughlin if alf amiodarone if feasible. Anemia 10/27/2022 Assessment & Plan (11/17/2022 2:13 PM EDT): Sent pt for CBC and pt to f/u with her PCP and mechanical development engineer Hypomagnesemia 10/27/2022 Hyponatremia 10/27/2022 Arrhythmia 10/26/2022 Assessment & Plan (11/17/2022 2:11 PM EDT): Reviewed rhythm strips from Cardiac rehab and normal sinus rhythm, no PVCS noted or VT Chest pain 07/08/2022 Overview (07/08/2022): Added automatically from request for surgery [id number] Former smoker 01/22/2020 Health care maintenance 01/22/2020 Diuretic-induced hypokalemia 01/16/2018 History of acute inferior wall IA 01/13/2018 Bladder prolapse, female, acquired 12/28/2016 Chronic GERD 12/28/2016 COPD (chronic obstructive pulmonary disease) 04/2016 Overview (07/08/2022): Managed by Dr. White. Coronary artery disease invo lving kaibab coronary artery of kaibab heart without angina pectoris 12/28/2016 Assessment & [...] Problem Noted Date Diagnosed Date Resolved Date long term current use of inhaled steroid 12/28/2022 12/28/2022 06/29/2023 Encounters Date Type Department Care Team Description 08/01/2024 11:15 AM EDT Office Visit [facility] [address] [place] [address] Abby Azevedo MD Coronary artery disease involving kaibab coronary artery of kaibab heart without angina pectoris (Primary Dx); Non-sustained ventricular tachycardia (CMS/HCC); Chronic obstructive pulmonary disease, unspecified COPD type (CMS/HCC); Essential hypertension 07/25/2024 Telephone [facility] [address] [facility] [place] [place] [address] Oralia Jaramillo MA 07/25/2024 Telephone [facility] [address] [facility] [place] [address] Oralia Jaramillo MA 07/25/2024 Telephone [facility] [address] [facility] [place] [address] Oralia Jaramillo MA 07/25/2024 Orders Only [address] [place] [address] Milli Gutierrez MA Benign hypertensive heart disease without congestive heart failure 07/03/2024 10:30 AM EDT - 07/03/2024 11:30 AM EDT Surgery [facility] [address] [place] [address] Abby Azevedo MD Coronary angiography [[id number]] 07/03/2024 6:43 AM EDT - 07/03/2024 2:04 PM EDT Hospital Encounter [facility] [address] [place] [address] Abby Azevedo MD Chronic heart failure with preserved ejection fraction (CMS/HCC) (Primary Dx); Angina pectoris, unstable (CMS/HCC); Essential hypertension; Atrial flutter, unspecified type (CMS/HCC); Other chest pain Discharge Disposition: Home or Self Care () 07/03/2024 Travel 06/26/2024 Travel 06/22/2024 Refill [facility] [address] [facility] [place] [place] [address] Milli Gutierrez MA Other chest pain 06/15/2024 11:00 AM EDT Office Visit [facility] [address] [facility] [place] [place] [address] Abby Azevedo MD Angina pectoris, unstable (CMS/HCC) (Primary Dx); Coronary artery disease, unspecified vessel or lesion type, unspecified whether angina present, unspecified whether kaibab or transplanted heart; Chronic obstructive pulmonary disease, unspecified COPD type (CMS/HCC); NSVT (nonsustained ventricular tachycardia) (CMS/HCC); Chest pain, unspecified type; Mixed hyperlipidemia; PVC (premature ventricular contraction) 06/15/2024 Orders Only [facility] [address] [place] [address] Maria Ines Zamorano MA Angina pectoris, unstable (CMS/HCC) 06/15/2024 Refill [facility] [address] [facility] [place] [address] Oralia Jaramillo MA 06/15/2024 Orders Only [facility] [address] [facility] [place] [place] [address] Maria Ines Zamorano MA Encounter for pre-operative examination; Angina pectoris, unstable (CMS/HCC) from Last 3 Months Family History Medical History Relation Name Comments Kidney disease Father Stroke Mother Coronary artery disease Paternal Grandfather Relation Name Status Comments Father Mother Paternal Grandfather Social History Tobacco Use Types Packs/Day Years [...] place to sleep or slept in a skilled nursing (including now)? No 10/26/2022 Hunger Vital Sign [...] 08/01/2024 10:59 AM EDT Plan of Treatment Health Maintenance Due Date Last Done Comments CT Colonography 1955 Colonoscopy 1955 FIT-DNA 1955 FOBT 1955 Medicare Annual Wellness (AWV) 1955 Sigmoidoscopy 1955 Pneumococcal Vaccine: 65+ Ye ars (1 of 2 - PCV) 1959 Depression Screening 1965 Adult Tetanus 1975 Mammogram 1993 Zoster Vaccines (1 of 2) 2003 Fall Risk Screening 2018 COVID-19 Vaccine (2 - 2023-2 5 season) 2023 09/01/2020 Influenza Vaccine (Season Ended) 2024 Colorectal Cancer Screening 02/07/2025 FIT 02/07/2025 02/08/2024 HIB Vaccines Aged Out No longer eligi ble based on patient's age to complete this topic HPV Vaccines Aged Out No longer eligi ble based on patient's age to complete this topic IPV Vaccines Aged Out No longer eligi ble based on patient's age to complete this topic Meningococcal B Vaccine Aged Out No l onger eligible based on patient's age to complete this topic Meningococcal Vaccine Aged Out No puja maryann eligible based on patient's age to complete this topic Rotavirus Vaccines Aged Out No longer eligible based on patient's age to complete this topic Medical Devices Implanted Type Area Fruit Raiser Device Identifier Shelf Expiration Date Model / Serial / Lot Stent,Chuy Mr 2.50 X 12 - [id number] Implanted:Qty: 1 on 07/14/2022 by Abby Azevedo MD at [facility] Drug Eluting [employer] [id number] 01/22/2023 [id number] / / [id number] Procedures Procedure Name Priority Date/Time Associated Diagnosis [...] internal jugular vein was obtained. A 6 Armenian 11 cm sheath was inserted without difficulty. [...] left radial artery was obtained. A 6 Armenian glide sheath was inserted without difficulty. Bilateral [...] (ABNORMAL) POC Hb02% (07/03/2024 10:42 AM EDT) [facility] [id number]% 70.5(A) 90 - 95 % QC Pass/Fail Passed QC LOT # [id number] QC Expiration Date 113, SAMPLESITE not listed Blood Venous blood specimen / Unknown 07/03/2024 10:42 AM EDT Narrative Austin Baldwin MT - 07/04/2024 6:09 AM EDT [employer] 9082 Abby Azevedo MD POINT OF CARE TEST E NTER/EDIT ORDERABLES * Electrocardiogram, 12-lead (07/03/2024 8:33 AM EDT) Pathologist [facility] Ventricular Rate 67 BPM GE MUSE Atrial Rate 67 BPM GE MUSE TN Interval 146 ms GE MUSE QRS DURATION 88 ms GE MUSE QT Interval 404 ms GE MUSE QTC CALCULATION(BAZE TT) 426 ms GE MUSE P [place] 65 degrees GE MUSE R-[place] 33 degrees GE MUSE T [place] 45 degrees GE MUSE 07/03/2024 7:56 AM [...] 9:28:00 AM Abby Azevedo MD ECG ORDERABLES NATASHA RAZA from Last 3 Months Advance Directives * Full Code (Latest Code Status on File) Date Activated Date Inactivated Comments 07/03/2024 11:10 AM 07/03/2024 4:05 PM * Full Code Date Activated Date Inactivated Comments 10/27/2022 1:05 AM 10/31/2022 5:46 PM * Full Code Date Activated Date Inactivated Comments 07/14/2022 12:10 PM 07/14/2022 6:57 PM Care Teams Agriculture Technician Relationship Specialty Start Date End Date Nolvia Jimenez MD [address] [place] [address] PCP - General Nurse Practitioner 06/15/24
--- OUTSIDE RECORDS SUMMARY | 2024-09-03 04:39 | XMS_ITS | Encounter Summary ---
Author Organization [facility] Address [address] [place] [address] Care Team Providers Care Marine Service Station Attendant Name Role Phone Shaikh ROCAEL Larios Unavailable [phone] Argelia Cheng NP Unavailable [phone] Trace Kelly MD Primary Care Provider [phone] Argelia Cheng NP Unavailable [phone] Encounter Details Date Type Department Care Team (Late st Contact Info) Description 01/24/2024 Clinisync Result Encounter [facility] External Department Unsolicited Provider, Generic External Data Social History Tobacco Use Types Packs/Day Years Used Date Smoking Tobacco: Former Cigarettes - 2015 Smokeless Tobacco: Never Alcohol Use Standard Drinks/Week Comments Never 0 (1 standard drink = 0.6 oz pur e alcohol) [facility] of Occupat ional Health - Occupational Stress [...] 09/05/2024 11:30 AM EDT Office Visit [facility] [address] [place] [address] Nolvia Jimenez NP [address] [place] [address] documented as of this encounter Procedures Procedure Name Priority Date/Time Associated Diagnosis Comments RT PULMONARY FUNCTION TEST 01/24/2024 1:05 PM EDT documented in this encounter Results * RT PULMONARY FUNCTION TEST (01/24/2024 1:05 PM EDT) Anatomical Region Laterality Modality Other 01/24/2024 1:05 PM EDT Narrative 01/26/2024 5:54 PM EDT [place] [id number] Respiratory Report Signed Patient: CHIARA JUARES MR#: [id number] : 1955 Acct:[id number] Age/Sex: 68 / F ADM Date: 01/24/24 Loc: CARD Attending Dr: Brien Coughlin D.O. Ordering Physician: Brien Coughlin D.O. Date of Service: 01/24/24 Procedure(s): RT pulmonary function test Accession Number(s): [id number] cc: [facility] Test Date: 2024-01-24 Pat Name: CHIARA JUARES Department: Room: - Gender: Female Regional Liaison: Frank Calderón RRT : 1955 Requested By: Brien Coughlin Order Number: [id number] Reading MD: Brien Coughlin Interpretive Statements Pulmonary function testing was completed [...] Electronically Signed On 01-26-2024 17:53:48 EDT by Brien Coughlin Dictated By: Brien Coughlin D.O. Signed By: 01/26/24 1756 DD/ 1305 TD/TT: Pocketed Spring Machine Operator: Procedure Note Radiology, Radiologist, - 01/26/2024 [place] [address] Respiratory Report Signed Patient: CHIARA JUARES AMR#: [id number] : 1955cct:[id number] Age/Sex: 68 / FADM Date: 01/24/24 Loc: CARD Attending Dr: Brien Coughlin D.O. Ordering Physician: Brien Coughlin D.O. Date of Service: 01/24/24 Procedure(s): RT pulmonary function test Accession Number(s): [id number] cc: [facility] Test Date: 2024-01-24 Pat Name: CHIARA JUARES Department: Room: - Gender: Female Regional Liaison: Frank Calderón RRT : 1955 Requested By: Brien Coughlin Order Number: [id number] Dane MD: Brien Coughlin Interpretive Statements Pulmonary function testing was completed according to ATS criteria.Findings were considered accurate and reproducible. Both pre- andpost-bronchodilator values utilized for spirometry. Spirometry (based on [...] -Spirometry suggests severe obstruction. There is a positivebronchodilator response. An elevated RV and TLC suggest air trapping and hyperinflation respectively. There is a moderately reduced diffusion capacity. Overallstudy suggests COPD with a bronchodilator response or asthma-COPD overlap. Clinical correlation required. Electronically Signed On 01-26-2024 17:53:48 EDT by Brien Coughlin Dictated By: Brien Coughlin D.O. Signed By:01/26/24 1754 DD/ 1305 TD/TT: Pocketed Spring Machine Operator: Generic External Data Provider [facility] Final Result documented in this encounter Visit Diagnoses Not on filedocumented in this encounter Care Teams Marine Service Station Attendant Relationship Specialty Start Date End Date Shaikh Larios MD [address] [place] [address] PCP - Alexx FLOWER 04/29/23 03/28/24 Trace Kelly MD [address] [place] [address] PCP - General Family Medicine 01/17/24 Argelia Cheng NP PCP - Alexx FLOWER 03/29/24 Argelia Cheng NP [address] [place] [address] Nurse Practitioner Family Medicine 11/10/23 documented as of this encounter
--- OUTSIDE RECORDS SUMMARY | 2024-09-03 04:39 | XMS_ITS | Encounter Summary ---
Author Organization [facility] Address [address] [place] [address] Care Team Providers Care Field Artillery Operations Specialist Name Role Phone Shaikh ROCAEL Larios Unavailable [phone] Argelia Cheng NP Unavailable [phone] Trace Kelly MD Primary Care Provider [phone] Argelia Cheng NP Unavailable [phone] Encounter Details Date Type Department Care Team (Late st Contact Info) Description 01/26/2024 Clinisync Result Encounter [facility] External Department Unsolicited Provider, Generic External Data Social History Tobacco Use Types Packs/Day Years Used Date Smoking Tobacco: Former Cigarettes 986 - 2015 Smokeless Tobacco: Never Alcohol Use Standard Drinks/Week Comments Never 0 (1 standard drink = 0.6 oz pur e alcohol) [facility] of Occupat ional Health - Occupational Stress [...] 11:30 AM EDT Office Visit [facility] [address] [place] [address] Nolvia Jimenez NP [address] [place] [address] documented as of this encounter Procedures Procedure Name Priority Date/Time Associated Diagnosis Comments CT LUNG SCREENING LOW DOSE 01/26/2024 6:07 AM EDT documented in this encounter Results * CT LUNG SCREENING LOW DOSE (01/26/2024 6:07 AM EDT) Anatomical Region Laterality Modality Other 01/26/2024 6:07 AM EDT Narrative 01/26/2024 6:09 AM EDT [address] [address] [address] Scan Report Signed Patient: CHIARA EDUARDO MR#: [id number] : 1955 Acct:[id number] Age/Sex: 68 / F ADM Date: 01/24/24 Loc: CARD Attending Dr: Luis Schumacher D.O. Ordering Physician: Luis Schumacher D.O. Date of Service: 01/24/24 Procedure(s): CT lung screening low-dose Accession Number(s): [id number] cc: ARGELIA CHENG [address] [address] Patient Name: CHIARA EDUARDO MRN: [id number] date: 1955 Sex: F Assigned Patient Location: CARD Current Patient Location: Accession/Order Number: [id number] Exam Date: 01/24/2024 15:00 Report Date: 01/26/2024 [...] M.D. Signed By: 01/26/24608 DD/ 6 TD/TT: Airworthiness Inspector: Procedure Note Radiology, Radiologist, - 01/26/2024 [place] [address] CT Scan Report Signed Patient: CHIARA EDUARDO [facility]#: [id number] : 4Acct:[id number] Age/Sex: 68 / FADM Date: 01/24/24 Loc: CARD Attending Dr: Luis Schumacher D.O. Ordering Physician: Luis Schumacher D.O. Date of Service: 01/24/24 Procedure(s): CT lung screening low-dose Accession Number(s): [id number] cc: ARGELIA CHENG [address] [address] Patient Name: CHIARA EDUARDO MRN: [id number] date: 1955 Sex: F Assigned Patient Location: CARD Current Patient Location: Accession/Order Number: [id number] Exam Date: 01/24/2024 15:00 Report Date: 01/26/2024 [...] mm nodules scattered within the lungs; a feware calcified but most are noncalcified. No new [...] No suspicious findings. Limited images of the upperabdomen. OTHER: Negative. CT/CT lung screening low-dose IMPRESSION: 1. Lung-RADS 2- Benign Appearance or Behavior. Nodules with a very low likelihood of becoming a clinically active cancer due to size or lack of growth. Follow-up CT Chest in 1 year. Electronically authenticated by: ROBBIE MATOS Date: 01/26/2024 06:07 Dictated By: Robbie Matos M.D. Signed By:01/26/24608 DD/ 6 TD/TT: Airworthiness Inspector: Generic External Data Provider [facility] Final Result documented in this encounter Visit Diagnoses Not on filedocumented in this encounter Care Teams Field Artillery Operations Specialist Relationship Specialty Start Date End Date Shaikh Larios MD [address] [place] [address] PCP - Alexx FLOWER 04/29/23 03/28/24 Trace Kelly MD [address] [place] [address] PCP - General Family Medicine 01/17/24 Argelia Cheng NP PCP - Alexx FLOWER 03/29/24 Argelia Cheng NP [address] [place] [address] Nurse Practitioner Family Medicine 11/10/23 documented as of this encounter
--- OUTSIDE RECORDS SUMMARY | 2024-09-03 04:40 | XMS_ITS | Encounter Summary ---
Author Organization [facility] Address [address] [place] [address] Care Team Providers Care Order Detailer Name Role Phone Argelia Cheng CONTINUOUS MINER OPERATOR HELPER Unavailable [phone] Trace Kelly MD Primary Care Provider [phone] Argelia Cheng CONTINUOUS MINER OPERATOR HELPER Unavailable [phone] Encounter Details Date Type Department Care Team (Late st Contact Info) Description 05/03/2024 Orders Only [facility] [address] [place] [address] Shaikh Larios MD [address] [facility] [place] [address] Social History Tobacco Use Types Packs/Day Years Used Date Smoking Tobacco: Former Cigarettes 986 - 2016 Smokeless Tobacco: Never Alcohol Use Standard Drinks/Week Comments Never 0 (1 standard drink = 0.6 oz pur e alcohol) [facility] [place] of Occupat ional Health - Occupational Stress [...] 11:30 AM EDT Office Visit [facility] [address] [place] [address] Nolvia Jimenez NP [address] [place] [address] documented as of this encounter Procedures Procedure Name Priority Date/Time Associated Diagnosis Comments CARD HOLTER MONITOR RECORDING Routine 05/02/2024 11:22 AM EST documented in this encounter Results * CARD HOLTER MONITOR RECORDING (05/02/2024 11:22 AM EST) Anatomical Region Laterality Modality Radiographic Mary Beth ging us Shaikh Ric [facility]OTE IMG XR PROCEDURES Final Result documented in this encounter Visit Diagnoses Not on filedocumented in this encounter Care Teams Order Detailer Relationship Specialty Start Date End Date Trace Kelly MD [address] [place] [address] PCP - General Family Medicine 01/17/24 Argelia Cheng NP PCP - Alexx FLOWER 03/29/24 Argelia Cheng NP Nurse Practitioner Family Medicine 11/10/23 documented as of this encounter
--- OUTSIDE RECORDS SUMMARY | 2024-09-03 04:40 | XMS_ITS | Clinical Summary ---
Author Organization [facility] Address [address] [place] [address] Care Team Providers Care Online Communications Manager Name Role Phone Argelia Cheng FIXER SUPERVISOR Unavailable [phone] Trace Kelly MD Primary Care Provider [phone] Argelia Cheng FIXER SUPERVISOR Unavailable [phone] Allergies Active Allergy Reactions Criticality Noted Date Comments Hydrochlorothiazide 04/08/2023 Penicillins 04/08/2023 Clopidogrel 04/08/2023 Sodium Chloride 04/08/2023 Sulfacetamide 04/08/2023 Vancomycin 04/08/2023 Medications olmesartan (BENIcar) 40 MG tablet Take 40 mg by mouth in the morning. Active aspirin (Adult Aspirin Regimen) 81 MG EC tablet Take 81 mg by mouth in the morning. Active omeprazole OTC (PriLOSEC OTC) 20 MG EC tablet Take 20 mg by mouth in the morning. Take before meals. Do not crush, chew, or split.. Active ipratropium-albute rol (Duo-Neb) 0.5-2.5 mg/3 mL nebulizer solution Take 3 mL by nebulization every 6 (six) hours Active albuterol HFA 90 mcg/act inhaler Inhale 2 puffs every 4 (four) hours if needed for wheezing Active cholecalciferol (Vitamin D-3) 25 MCG (1000 UT) tabletIndications: Stage 3a chronic kidney disease (HCC) (CMS/HCC) Take 1 tablet (25 mcg) by mouth Daily 60 tablet 1 01/18/20 24 Active atorvastatin (Lipitor) 80 MG tabletIndications: Other hyperlipidemia Take 1 tablet (80 mg) by mouth Daily 90 tablet 1 04/03/19 25 025 Active MAGNESIUM PO Take 200 mg by mouth in the morning. Active isosorbide mononitrate ER (Imdur) 60 MG 24 hr tablet Take 60 mg by mouth Daily 04/20/19 25 Active Dupilumab (Dupixent) 300 MG/2ML solution auto-injector as directed Subcutaneous Active Trelegy Ellipta 100-62.5-25 MCG/ACT aerosol powder Inhale 1 puff 1 (one) time each day at the same time 05/23/19 25 Active metoprolol tartrate (Lopressor) 50 MG tablet Take 50 mg by mouth in the morning and 50 mg before bedtime. 06/01/19 25 Active ranolazine (Ranexa) 500 MG 12 hr tablet Take 500 mg by mouth in the morning and 500 mg in the evening. 05/23/19 25 026 Active predniSONE (Deltasone) 10 MG tablet 06/08/19 25 Active furosemide (Lasix) 20 MG tabletIndications: Edema Take 20 mg by mouth every other day Active cyclobenzaprine (Flexeril) 10 MG tabletIndications: Chronic low back pain, unspecified back pain laterality, unspecified whether sciatica present Take 0.5 tablets (5 mg) by mouth 3 (three) times a day as needed for muscle spasms for up to 15 days 45 tablet 1 06/09/19 25 Active Active Problems Problem Noted Date Diagnosed Date Elevated WBC count 07/26/2024 CRP elevated 07/26/2024 Morbid (severe) obesity due to excess calories 0 06/08/2024 Assessment & Plan (06/08/2024 7:41 AM EDT): Discussed with patient their BMI (actual, verses recommended). We have also discussed lifestyle modifications: attempts to perform physical activity as chronic conditions allow, also to monitor dietary intake: increasing protein/fruits/veggies and lowering carb intake (unless contraindicated). Limit sodas, juices, and sugary drinks. Essential (primary) hypertension 06/08/2024 Assessment & Plan (06/08/2024 7:40 AM EDT): Please check blood pressure daily and record DASH diet Limit caffeine Take medication as directed Contact office if chest pain, pressure, dizziness, shortness of breath, swelling legs Recommend slow position changes Current meds: arb, b shyam, nitrate Body mass index (BMI) 35.0-35.9, adult Chronic kidney disease, stage 3b (HCC) Assessment & Plan (06/08/2024 7:42 AM EDT): Goal to keep blood pressure well control Avoid nephrotoxic drugs if possible Continue w nephrology Mixed hyperlipidemia 06/08/2024 Assessment & Plan (06/08/2024 7:42 AM EDT): Statin therapy Check labs yearly and prn dose changes Irregular heartbeat 04/18/2024 Assessment & Plan (04/18/2024 2:57 PM EST): Intermittent shortness of breath, swelling in legs, heart skipping beats, fatigue. Irregular rhythm in office today. Advised pt to report to ER for further eval and treatment Encounter for Medicare annual wellness exam 12/28 Hypomagnesemia 10/27/2022 Assessment & Plan (06/08/2024 7:41 AM EDT): Takes magnesium supplement Check labs yearly and prn dose changes or changes in symtpoms Hyponatremia 10/27/2022 Former smoker 01/22/2020 Chronic obstructive pulmonary disease, unspecifi ed 12/28/2016 Overview (04/12/2023): Managed by Dr. White. Managed by Dr. White. Assessment & Plan (06/08/2024 7:42 AM EDT): Current meds: albuterol, trelegy, Under the care of pulmonology [facility] Coronary artery disease invo lving [place] coronary artery of [place] heart without angina pectoris 12/28/2016 Overview (04/12/2023): Last Assessment & Plan: Coronary artery disease is stable without any concerning symtpoms Continue GDMT- ASA, brilinta, toprol, imdur continue risk factor modifications- heart healthy diet, regular exercise as tolerated and continue all medications. Assessment & Plan (06/08/2024 7:39 AM EDT): Under the care of cardiology Current meds: statin, asa, imdur, b shyam, arb, diuretic, and ranexa Aggressive risk factor modification Assessment & Plan (04/12/2023 2:53 PM EST): Stable. No CP, SOB, palpitations. On ASA, Effient, BB, statin Follows [facility] cardiology. Lower back pain 12/28/2016 Assessment & Plan (06/08/2024 5:05 PM EDT): Flexeril prn Resolved Problems Problem Noted Date Diagnosed Date Resolved Date Other hyperlipidemia 04/12/2023 025 Assessment & Plan (04/12/2023 2:52 PM EST): At goal. 01/18. On Lipitor 80 mg daily. Stage 3a chronic kidney disease (HCC) 04/12/2023 06/08/2024 Assessment & Plan (04/12/2023 2:51 PM EST): CKD 3, due to HTN. Doing well, renal function is stable. Instructed to avoid NSAIDS. Essential hypertension 12/14/201606/08 Overview (04/12/2023): Last Assessment & Plan: Hypertension is well controlled Continue all meds Assessment & Plan (04/26/2024 3:41 PM EST): Was seen at hospital overnight 04/18/-04/19 Pt [...] office in 2 weeks with BP readings. Encounters Date Type Department Care Team Description 08/02/2024 Clinisync Result Encounter [facility] External Department Unsolicited Nolvia Jimenez NP 07/27/2024 External Result Encounter [facility] External Department Unsolicited Nolvia Jimenez NP 07/26/2024 Orders Only [facility] [address] [place] [address] Nolvia Jimenez NP Leukocytosis, unspecified type (Primary Dx); CRP elevated 07/26/2024 Clinisync Result Encounter [facility] External Department Unsolicited Nolvia Jimenez NP 07/26/2024 Orders Only [facility] [address] [place] [address] Nolvia Jimenez NP Leukocytosis, unspecified type (Primary Dx) 07/25/2024 Clinisync Result Encounter [facility] External Department Unsolicited Provider, Generic External Data 07/17/2024 Clinisync Result Encounter [facility] External Department Unsolicited Provider, Generic External Data 06/26/2024 Clinisync Result Encounter [facility] External Department Unsolicited Provider, Generic External Data 06/08/2024 2:40 PM EDT Office Visit [facility] [address] [place] [address] Aichholz, Nolvia, FIXER SUPERVISOR Essential (primary) hypertension (CMS/HCC) (Primary Dx); Morbid (severe) obesity due to excess calories (CMS/HCC); Body mass index (BMI) 35.0-35.9, adult; Chronic obstructive pulmonary disease, unspecified (CMS/HCC); Chronic kidney disease, stage 3b (HCC) (CMS/HCC); Coronary artery disease involving [place] coronary artery of [place] heart without angina pectoris (CMS/HCC); Hypomagnesemia; Mixed hyperlipidemia (CMS/HCC) ; Chronic low back pain, unspecified back pain laterality, unspecified whether sciatica present 06/08/2024 [employer] flowsheet [facility] [address] [place] [address] Nolvia Jimenez NP 06/08/2024 Travel from Last 3 Months Family History Medical History Relation Name Comments Heart disease Father Hypertension Father COPD Mother Heart disease Mother Hypertension Mother Stroke Mother Emphysema Sister Relation Name Status Comments Father Mother Sister Social History Tobacco Use Types Packs/Day Years Used Date Smoking Tobacco: Former Cigarettes - 2015 Smokeless Tobacco: Never Tobacco Cessation:Counseling Given: Not Answered Alcohol Use Standard Drinks/Week Comments Never 0 (1 standard drink = 0.6 oz pur e alcohol) B1300 Health Literacy Answer Date Recor ded How often do you need to hav e someone help you when you read instructions, pamphlets, or other written material from your doctor or pharmacy? Never 06/08/2024 Social Connection and Isolation Panel [NHANES] A nswer Date Recorded In a typical week, how many times do you talk on the phone with family, friends, or neighbors? Once a week 06/09/19 25 Frequency of Social Gatherin gs with Friends and Family Not on file 06/08/2024 How often do you attend chur ch or sikh services? 1 to 4 times per year 06/08/2024 Do you belong to any clubs o r organizations such as shinto groups, unions, fraternal or athletic groups, or school groups? No 06/08/2024 How often do you attend meet ings of the clubs or organizations you belong to? Never 06/08/2024 Are you , , di vorced, , never , or living with a partner? 06/08/2024 AUDIT-C Answer Date Recorded Q1: How often do you have a drink containing alcohol? Never 06/08/2024 Q2: How many drinks containi ng alcohol do you have on a typical day when you are drinking? Patient does not drink Frequency of Binge Drinking Not on file 05/27 Overall Financial Resource Strain (CARDIA) Answe r Date Recorded How hard is it for you to pa y for the very basics like food, housing, medical care, and heating? Not hard at all 06/08/2024 [facility] - Occupational Stress Questionnaire Answer Date Recorded Do you feel stress - tense, restless, nervous, or anxious, or unable to sleep at night because your mind is troubled all the time - these days? Only a little 06/08/2024 Exercise Vital Sign Answer Date Recorde d On average, how many days pe r week do you engage in moderate to strenuous exercise (like a brisk walk)? 4 days 06/08/2024 On average, how many minutes do you engage in exercise at this level? 50 min 06/08/2024 Hunger Vital Sign Answer Date Recorded Within the past 12 months, y ou worried that your food would run out before you got the money to buy more. Never true 06/09/19 25 Within the past 12 months, t he food you bought just didn't last and you didn't have money to get more. Never true 06/08/2024 PRAPARE - Transportation Answer Date Re corded In the past 12 months, has l ack of transportation kept you from medical appointments or from getting medications? No 05/27 In the past 12 months, has l ack of transportation kept you from meetings, work, or from getting things needed for daily living? No 06/08/2024 Housing Stability Vital Sign Answer Rajiv e Recorded In the last 12 months, was t here a time when you were not able to pay the mortgage or rent on time? No 06/08/2024 Number of Times Moved in the Last Year Not on fi le 06/08/2024 At any time in the past 12 m [facility], were you homeless or living in a nursing home (including now)? No 06/08/2024 Comments Unknown Sex and Gender Information Value Date Recorded Sex Assigned at Not on file Legal Sex Female 3:02 PM EDT Gender Identity Not on file Sexual Orientation Not on file Last Filed Vital Signs Vital Sign Reading Time Taken Comments Blood Pressure 144/80 06/08/2024 2:43 PM EDT Pulse 72 06/08/2024 2:43 PM EDT Temperature 36.6 C (97.8 F) 06/08/2024 2:43 PM EDT Respiratory Rate 19 06/08/2024 2:43 PM EDT Oxygen Saturation 98% 06/08/2024 2:43 PM EDT Inhaled Oxygen Concentration - - Weight 90.6 kg (199 lb 12.8 oz) 06/08/2024 2:43 PM EDT Height 160 cm (5' 3 ) 04/26/2024 3:02 PM EST Body Mass Index 35.39 04/26/2024 3:02 PM EST Plan of Treatment Upcoming Encounters Date Type Department Care Team (Late st Contact Info) Description 09/05/2024 11:30 AM EDT Office Visit [facility] [address] [place] [address] Nolvia Jimenez, [place] [address] [place] [address] Health Maintenance Due Date Last Done Comments CT Colonography 1953 Colonoscopy 1953 FIT 1953 FOBT 1955 Sigmoidoscopy 1955 Influenza Vaccine (Season Ended) 2024 Medicare Annual Wellness (AWV) 01/16/2025 01/17/2024, 01/17/2024, 01/14/2023, Additional history exists Pneumococcal Vaccine: 65+ Years (1 of 2 - PCV) 01/16/2025 Postponed from 1972 (Patient Refused) Colorectal Cancer Screening 02/14/2027 FIT-DNA 02/14/2027 02/15/2024, 02/08/2024 Mammogram Discontinued Procedures Procedure Name Priority Date/Time Associated Diagnosis Comments ALL C REACTIVE PROTEIN Routine 5 11:15 AM EDT ALL CBC WITH AUTO DIFF Routine 5 11:15 AM EDT ALL C REACTIVE PROTEIN Routine 12:05 PM EDT [facility] CMP (CMP) (FOR REMOTE [facility] USE) Routine 07/26/2024 12:05 PM EDT ALL SED RATE Routine 07/26/2024 12:05 PM EDT ALL CBC WITH AUTO DIFF Routine 12:05 PM EDT URINE CULTURE - [facility] Routine 07/26/2024 11:55 AM EDT TBH UA (CLEAN/CATCH) MICROSCOPIC IF INDICATE Routine 07/26/2024 11:55 AM EDT CULTURE, URINE, ROUTINE Routine 07/27/19 11:53 AM EDT MHPT DIFFERENTIAL Routine 07/25/2024 11: 15 AM EDT ALL BASIC METABOLIC PANEL Routine 07/25/2024 11:15 AM EDT ALL CBC WITH AUTO DIFF Routine 11:15 AM EDT [facility] PTH, INTRAOPERATIVE Routine 07/17/2024 11:55 AM EDT ALL MAGNESIUM Routine 07/17/2024 11:55 AM EDT ALL URIC ACID Routine 07/17/2024 11:55 AM EDT ALL RENAL FUNCTION PANEL Routine 07/17/2024 11:55 AM EDT HMHP CBC WITH PLATELET NO DIFFERENTIAL Routine 07/17/2024 11:55 AM EDT TBH URINE T PROTEIN CREAT RATIO Routine 07/17/2024 11:36 AM EDT ALL BASIC METABOLIC PANEL Routine 06/26/2024 11:32 AM EDT ALL CBC WITH AUTO DIFF Routine 11:32 AM EDT LAB COLOGUARD COLON CANCER SCREEN Routine 02/15/2024 10:21 AM EST from Last 3 Months or Most Recently Relevant to Health Maintenance Results * (ABNORMAL) ALL CBC WITH AUTO DIFF (08/02/2024 11:15 AM EDT) Only the most recent of4 resultswithin the time period is included. TBH WBC 10.7 4.0 - 11.0 10 3/uL TBH TBH RBC 3.93(L) 4.20 - 5.40 10 6/uL TBH TBH HGB 12.4 12.0 - 16.0 g/dL TBH TBH HCT 38.4 36.0 - 48.0 % TBH TBH MCV 97.7 81.0 - 99.0 fL TBH TBH MCH 31.6 26.7 - 34.0 pg TBH TBH MCHC 32.3 29.9 - 35.2 g/dL TBH TBH RDW 14.1 11.0 - 15.0 % TBH TBH PLT 370 150 - 450 10 3/uL TBH TBH MPV 9.0(L) 9.5 - 13.5 fL TBH NEUTROPHILS PERCENT AUTO 70.2 43.0 - 75.0 % TBH LYMPHOCYTES PERCENT AUTO 19.2(L) 20.5 - 60.0 % TBH MONOCYTES PERCENT AUTO 8.2 1.7 - 12.0 % TBH TBH EO % 0.9 0.9 - 7.0 % TBH BASOPHILS PERCENT AUTO 0.8 0.2 - 2.0 % TBH IMMATURE GRANULOCYTES PCT AUTO 0.7(H) 0.0 - 0.5 % TBH NEUTROPHILS ABSOLUTE AUTO 7.5(H) 1.4 - 6.5 10 3/uL TBH LYMPHOCYTES ABSOLUTE AUTO 2.1 1.2 - 3.8 10 3/uL TBH MONOCYTES ABSOLUTE AUTO 0.9(H) 0.3 - 0.8 10 3/uL TBH TBH EO # 0.1 0.0 - 0.7 10 3/uL TBH BASOPHILS ABSOLUTE AUTO 0.1 0.0 - 0.1 10 3/uL TBH IMMATURE GRANULOCYTES ABS AUTO 0.07(H) 0.00 - 0.03 10 3/uL TBH 08/02/2024 11:1 5 AM EDT 08/02/2024 11:23 AM EDT Narrative CLINISYNC - 08/02/2024 11:39 AM EDT Nolvia Jimenez NP [facility] ALL C REACTIVE PROTEIN (08/02/2024 11:15 AM EDT) Only the most recent of2 resultswithin the time period is included. C REACTIVE PROTEIN <0.50 <=0.50 mg/dL TBH 08/02/2024 11:1 5 AM EDT 08/02/2024 11:23 AM EDT Narrative CLINISYNC - 08/02/2024 12:17 PM EDT Nolvia Jimenez NP CLINISYNC Final Result Performing Organization Address City/[facility]/ZIP Co de Phone Number [facility] * (ABNORMAL) [facility] CMP (CMP) (FOR REMOTE [facility] USE) (07/26/2024 12:05 PM EDT) SODIUM 138 136 - 145 mmol/L TBH POTASSIUM 4.1 3.5 - 5.1 mmol/L TBH CHLORIDE 101 98 - 107 mmol/L TBH CARBON DIOXIDE 28.2 21.0 - 32.0 mmol/L TBH ANION GAP 12.9 TBH GLUCOSE 100 74 - 106 mg/dL TBH BLOOD UREA NITROGEN 24.0(H) 7.0 - 18.0 mg/dL TBH CREATININE 1.57(H) 0.55 - 1.02 mg/dL TBH TBH EGFR-AF [place] 39(L) >=60 mL/min/1. 73m 2 TBH TBH EGFR-NON AF [place] 32(L) >=60 mL/min/1. 73m 2 TB BUN CREATININE RATIO 15.3 TBH CALCIUM 8.8 8.5 - 10.1 mg/dL TBH BILIRUBIN TOTAL 0.3 0.2 - 1.0 mg/dL TBH ASPARTATE AMINO TRANSFERASE 14(L) 15 - 37 U/L TBH ALANINE AMINOTRANSFERASE 17 14 - 59 U/L TB ALKALINE PHOSPHATASE 77 46 - 116 U/L TB TOTAL PROTEIN 7.0 6.4 - 8.2 g/dL TBH ALBUMIN LEVEL 3.2(L) 3.4 - 5.0 g/dL TBH GLOBULIN 3.8 g/dL TBH ALBUMIN GLOBULIN RATIO 0.8 TB 07/26/2024 12:0 5 PM EDT 07/26/2024 12:06 PM EDT Narrative CLINISYNC - 07/26/2024 12:30 PM EDT Nolvia Jimenez NP CLINISYNC Final Result CLINISYNC [facility] * (ABNORMAL) ALL SED RATE (07/26/2024 12:05 PM EDT) Pathologist [facility] SED RATE 46(H) <=30 mm/hr [facility] 07/26/2024 12:0 5 PM EDT 07/26/2024 12:06 PM EDT Narrative CLINISYNC - 07/26/2024 12:14 PM EDT Nolvia Jimenez NP CLINISYNC Final Result CLINISYNC [facility] * URINE CULTURE - [facility] (07/26/2024 11:55 AM EDT) Pathologist [facility] URINE CULTURE - [facility] Urine Culture - [facility] 50,000 colonies/ml mixed [facility] URINE CULTURE - FR bacterial skin contaminants [facility] URINE CULTURE - FR 2 Days [facility] URINE CULTURE - [facility] URINE CULTURE - FR Testing performed at [facility] URINE CULTURE - [facility] [address] [place] [address] [facility] 07/26/2024 11:5 5 AM EDT 07/26/2024 12:06 PM EDT Narrative CLINISYNC - 07/31/2024 9:29 AM EDT us Nolvia Jimenez NP LAB BLOOD ORDERABLES Final Resu lt Performing Organization Address City/[facility]/ZIP Co de Phone Number CLINISYDE TB[facility] * (ABNORMAL) TBH UA (CLEAN/CATCH) MICROSCOPIC IF INDICATE (07/26/2024 11:55 AM EDT) Pathologist [facility] COLOR URINE LT. YELLOW YELLOW TBH CLARITY URINE CLEAR CLEAR TBH SPECIFIC GRAVITY URINE <=1.005(A) 1.005 - 1.025 TBH PH URINE 6.5 5.0 - 9.0 TBH PROTEIN URINE NEGATIVE NEG/TRACE mg/dL TBH GLUCOSE URINE UA 500(A) NEGATIVE mg/dL TBH BILIRUBIN URINE NEGATIVE NEGATIVE TBH KETONES URINE NEGATIVE NEGATIVE mg/dL TBH BLOOD URINE NEGATIVE NEGATIVE TBH NITRITE URINE NEGATIVE NEGATIVE TBH UROBILINOGEN URINE 0.2 0.2 - 1.0 EU/dL TBH LEUKOCYTE ESTERASE URINE NEGATIVE NEGATIVE TBH URINE MICROSCOPIC INDICATED NO TBH 07/26/2024 11:5 5 AM EDT 07/26/2024 12:06 PM EDT Narrative CLINISYNC - 07/26/2024 12:17 PM EDT Nolvia Jimenez NP CLINISYNC Final Result Performing Organization Address [facility] Co de Phone Number CLINISYNC TBH * Urine culture (07/26/2024 11:53 AM EDT) Pathologist [facility] NOTE 50,000 colonies/ml mixed bacterial skin contaminants 2 Days 08/07/2024 9:51 AM EDT [facility] Urine Urine specimen obtained by clean catch procedure / Unknown 07/26/2024 11:53 AM EDT 07/27/2024 1:15 PM EDT us Nolvia Jimenez FIXER SUPERVISOR LAB MICROBIOLOGY - GENERAL GRAY STUART Final Result Performing Organization Address City/[facility]/ZIP Co de Phone Number [facility] [address] [place] [address], [facility] [address] [place] [address] * (ABNORMAL) MHPT DIFFERENTIAL (07/25/2024 11:15 AM EDT) SEGMENTED NEUTROPHILS % MANUAL 87.0(H) 43.0 - 75.0 TBH LYMPHOCYTES PERCENT MANUAL 9.0(L) 20.5 - 60.0 % TBH MONOCYTES PERCENT MANUAL 2.0 1.7 - 12.0 % TBH EOSINOPHILS PERCENT MANUAL 0.0(L) 0.9 - 7.0 % TBH BASOPHILS PERCENT MANUAL 2.0 0.2 - 2.0 % TBH SEGMENTED NEUT ABSOLUTE MANUAL 20.44(H) 1.4 - 6.5 10 3/uL TBH LYMPHOCYTES ABSOLUTE MANUAL 2.11 1.20 - 3.80 10 3/uL TBH MONOCYTES ABSOLUTE MANUAL 0.47 0.30 - 0.80 10 3/uL TBH EOSINOPHILS ABSOLUTE MANUAL 0.00 0.00 - 0.70 10 3/uL TBH BASOPHILS ABS MANUAL 0.47(H) 0.00 - 0.10 10 3/uL TBH 07/25/2024 11:1 5 AM EDT 07/25/2024 11:21 AM EDT Narrative CLINISYNC - 07/25/2024 12:02 PM EDT Generic External Data Provider CLINISYNC F inal Result CLINISYNC TB * (ABNORMAL) ALL BASIC METABOLIC PANEL (07/25/2024 11:15 AM EDT) Only the most recent of2 resultswithin the time period is included. SODIUM 135(L) 136 - 145 mmol/L TBH POTASSIUM 4.6 3.5 - 5.1 mmol/L TBH CHLORIDE 100 98 - 107 mmol/L TBH CARBON DIOXIDE 28.4 21.0 - 32.0 mmol/L TBH ANION GAP 11.2 TBH GLUCOSE 122(H) 74 - 106 mg/dL TBH BLOOD UREA NITROGEN 30.0(H) 7.0 - 18.0 mg/dL TBH CREATININE 1.65(H) 0.55 - 1.02 mg/dL TBH TBH EGFR-AF [place] 37(L) >=60 mL/min/1.7 3m 2 TBH TBH EGFR-NON AF [place] 31(L) >=60 mL/min/1.7 3m 2 TBH BUN CREATININE RATIO 18.2 TBH CALCIUM 8.9 8.5 - 10.1 mg/dL TBH 07/25/2024 11:1 5 AM EDT 07/25/2024 11:21 AM EDT Narrative CLINISYNC - 07/25/2024 11:42 AM EDT Generic External Data Provider CLINISYNC F inal Result Performing Organization Address [facility] Co de Phone Number CLINISYNC TB * (ABNORMAL) [facility] PTH, INTRAOPERATIVE (07/17/2024 11:55 AM EDT) PTH, INTACT 68(A) 15 - 65 pg/mL TBH Comment: Performed at: [facility] Lab[address] [id number] Collections Clerk: True Herron PhD, Phone: [phone] 07/17/2024 11:5 5 AM EDT 07/17/2024 11:57 AM EDT Narrative CLINISYNC - 07/18/2024 12:08 PM EDT Generic External Data Provider CLINISYNC F inal Result Performing Organization Address City/[facility]/ZIP Co de Phone Number CLINISYNC TBH * (ABNORMAL) [facility] CBC WITH PLATELET NO DIFFERENTIAL (07/17/2024 11:55 AM EDT) TB WBC 9.1 4.0 - 11.0 10 3/uL TBH TBH RBC 4.00(L) 4.20 - 5.40 10 6/uL TBH TBH HGB 12.8 12.0 - 16.0 g/dL TBH TBH HCT 39.0 36.0 - 48.0 % TBH TB MCV 97.5 81.0 - 99.0 fL TBH TB MCH 32.0 26.7 - 34.0 pg TBH TB MCHC 32.8 29.9 - 35.2 g/dL TB TB RDW 14.9 11.0 - 15.0 % TBH TBH PLT 273 150 - 450 10 3/uL TBH TB MPV 9.5 9.5 - 13.5 fL TB 07/17/2024 11:5 5 AM EDT 07/17/2024 11:57 AM EDT Narrative CLINISYNC - 07/17/2024 12:08 PM EDT Generic External Data Provider [facility]al [facility] * ALL URIC ACID (07/17/2024 11:55 AM EDT) URIC ACID 5.0 2.6 - 6.0 mg/dL TB 07/17/2024 11:5 5 AM EDT 07/17/2024 11:57 AM EDT Narrative CLINISYNC - 07/17/2024 2:22 PM EDT Generic External Data Provider [facility] F [facility]al [facility] * (ABNORMAL) ALL RENAL FUNCTION PANEL (07/17/2024 11:55 AM EDT) SODIUM 135(L) 136 - 145 mmol/L TBH POTASSIUM 4.9 3.5 - 5.1 mmol/L TBH CHLORIDE 99 98 - 107 mmol/L TBH CARBON DIOXIDE 27.2 21.0 - 32.0 mmol/L TBH ANION GAP 13.7 TBH GLUCOSE 105 74 - 106 mg/dL TB BLOOD UREA NITROGEN 20.0(H) 7.0 - 18.0 mg/dL TBH CREATININE 1.44(H) 0.55 - 1.02 mg/dL TB TB EGFR-AF [place] 43(L) >=60 mL/min/1.7 3m 2 TBH TBH EGFR-NON AF [place] 36(L) >=60 mL/min/1.7 3m 2 TBH BUN CREATININE RATIO 13.9 TBH CALCIUM 8.8 8.5 - 10.1 mg/dL TBH PHOSPHORUS 3.2 2.6 - 4.7 mg/dL TBH ALBUMIN LEVEL 3.4 3.4 - 5.0 g/dL TBH 07/17/2024 11:5 5 AM EDT 07/17/2024 11:57 AM EDT Narrative CLINISYNC - 07/17/2024 2:22 PM EDT Generic External Data Provider CLINISYNC F inal Result Performing Organization Address [facility]/ZIP Co de Phone Number CLINISYNC TB * ALL MAGNESIUM (07/17/2024 11:55 AM EDT) MAGNESIUM 2.1 1.8 - 2.4 mg/dL TB 07/17/2024 11:5 5 AM EDT 07/17/2024 11:57 AM EDT Narrative CLINISYNC - 07/17/2024 2:22 PM EDT Generic External Data Provider CLINISYNC F inal Result Performing Organization Address [facility] Co de Phone Number CLINISYNC TB * (ABNORMAL) TBH URINE T PROTEIN CREAT RATIO (07/17/2024 11:36 AM EDT) TOTAL PROTEIN URINE RANDOM 25.2(H) <=11.9 mg/dL TBH CREATININE URINE RANDOM 68.16 20.00 - 300.00 mg/dL TBH PROTEIN CREATININE RATIO URINE 0.37 TBH 07/17/2024 11:3 6 AM EDT 07/17/2024 11:57 AM EDT Narrative [facility] - 07/17/2024 12:08 PM EDT Generic External Data Provider [facility] F inal Result Performing Organization Address [facility]/State/ZIP Co de Phone Number CLIN[facility] TBH * Cologuard?? colon cancer screening (02/15/2024 10:21 AM EST) Stool Shaikh [facility] ORDER ADRIEN Final Result from Last 3 Months or Most Recently Relevant to Health Maintenance Insurance [employer] Care Teams Online Communications Manager Relationship Specialty Start Date End Date Trace Kelly MD [address] [place] [address] PCP - General Family Medicine 01/17/24 Argelia Cheng NP PCP - Alexx FLOWER 03/29/24 Argelia Cheng NP Nurse Practitioner Family Medicine 11/10/23
--- OUTSIDE RECORDS SUMMARY | 2024-09-03 04:40 | XMS_ITS | Encounter Summary ---
Author Organization [facility] [employer] [facility] Address [id number] [address] [place] [address] Care Team Providers Care Agriculture Laborer Name Role Phone Milvia Gay RUNNING INSTRUCTOR-TRAILERS AND MOTOR HOMES SALESPERSON Primary Care Provider [phone]- [phone] Encounter Details Date Type Department Care Team (Late st Contact Info) Description 02/05/2020 Orders Only [facility] [address] [facility] [address] [place] [address] Nci Muñiz MD [facility] [address] 10/28/23 Left [place] [address] Social History Tobacco Use Types Packs/Day Years Used Date Smoking Tobacco: Former Cigarettes 1 50 0 11/10/1966 - 11/10/2016 Smokeless Tobacco: Never Alcohol Use Standard Drinks/Week Comments Yes 0 (1 standard drink = 0.6 oz pur e alcohol) Rarely Social Connection and Isolat ion Panel [NHANES] Answer Date Recorded Frequency of Communication w ith Friends and Family More than three times a week 01/14/2019 Frequency of Social Gatherin gs with Friends and Family Twice a week 01/14/2019 Attends Druze Services Never 01/14 Active Member of Clubs or Organizations No 01/14/2019 Attends Club or Organization Meetings Never 01/14/2019 Marital Status 01/14/2019 AUDIT-C Answer Date Recorded Frequency of Alcohol Consumption Monthly or less 01/14/2019 Average Number of Drinks 1 or 2 019 Frequency of Binge Drinking Never 12/27 Overall Financial Resource Strain (CARDIA) Answe r Date Recorded Difficulty of Paying Living Expenses Not very green rd 01/14/2019 PHQ-2 Answer Date Recorded Total Score 0 01/22/2020 [facility] of Occupat ional Health - Occupational Stress Questionnaire Answer Date Recorded Feeling of Stress Only a little 01/14/2019 Exercise Vital Sign Answer Date Recorde d Days of Exercise per Week 5 days 2018 Minutes of Exercise per Session 30 min 01/14/2019 PRAPARE - Transportation Answer Date Re corded Lack of Transportation (Medical) No 01/14/2019 Lack of Transportation (Non-Medical) No 01/14/2019 Childcare Answer Date Recorded Childcare No 01/14/2019 Employment Answer Date Recorded Employment No 01/14/2019 Education Answer Date Recorded What is the highest level of school you have completed or the highest degree you have received? 12th grade 01/14/2019 Comments Unknown Sex and Gender Information Value Date Recorded Sex Assigned at Female 01/13/2019 4:53 PM EDT Legal Sex Female 4:56 PM EDT Gender Identity Female 01/13/2019 4:53 PM EDT Sexual Orientation Straight 01/13/2019 4: 53 PM EDT Occupation Industry Job Start Date Job End Date retired Not on file Not on file Not on file COVID-19 Exposure Response Date Recorded In the last month, have you been in contact with someone who was confirmed or suspected to have Coronavirus / COVID-19? No / Unsure 01/22/2020 2:31 PM EDT documented as of this encounter Plan of Treatment Not on file documented as of this encounter Visit Diagnoses Not on filedocumented in this encounter Additional Health Concerns Assessment Noted Time PHQ-9 Depression Total Score: 0 01/22/20 20 3:00 PM EDT A Body Mass Index follow-up plan has been documented for the patient 01/05/2017 3:01 PM EDT documented as of this encounter Care Teams Agriculture Laborer Relationship Specialty Start Date End Date Milvia Gay APRN-MARISA [address] [place] [address] PCP - General Family Medicine 01/16/19 06/13/20 documented as of this encounter
--- OUTSIDE RECORDS SUMMARY | 2024-09-03 04:40 | XMS_ITS | Encounter Summary ---
Author Organization [employer] Address [id number] [address] [place] [address] Care Team Providers Care Collar Folder Operator Name Role Phone Milvia Gya APRN-ENERGY EFFICIENCY FINANCE MANAGER Primary Care Provider [phone]- [phone] Encounter Details Date Type Department Care Team (Late st Contact Info) Description 10/25/2019 Telephone [facility] [address] [place] [address] Milvia Gay APRN-CNP [address] [place] [address] Social History Tobacco Use Types Packs/Day Years [...] and Family Twice a week 01/14/2019 Attends Synagogue Services Never 01/14 Active Member of Clubs [...] green rd 01/14/2019 PHQ-2 Answer Date Recorded PHQ-2 Score 0 04/07/2018 [facility] of Occupat ional Health - Occupational Stress [...] file Not on file Not on file documented as of this encounter Plan of Treatment Not on file documented as of this encounter Visit Diagnoses Not on filedocumented in this encounter Additional Health Concerns Assessment Noted Time PHQ-9 Depression Total Score: 0 01/15/20 19 10:51 AM EDT A Body Mass Index follow-up plan has been documented for the patient 01/05/2017 3:01 PM EDT documented as of this encounter Care Teams Collar Folder Operator Relationship Specialty Start Date End Date Milvia Gay APRN-MARISA [address] [place] [address] PCP - General Family Medicine 01/16/19 06/13/20 documented as of this encounter
--- NOTE | 2024-09-03 05:17 | XR_ITS ---
The [address] [address] Patient Name: CHIARA EDUARDO MRN: [id number] date: 1955 Sex: F Assigned Patient Location: ER Current Patient Location: ED.MAIN Accession/Order Number: [id number] Exam Date: 09/03/2024 09:49 Report Date: 09/03/2024 09:50 At the request of: WAYNE BARBA MD Procedure: XR chest 1V Plain film chest Single view HISTORY: Shortness of breath COMPARISON: CT chest 04/18/2024 FINDINGS: SUPPORT DEVICES: None POSTSURGICAL CHANGES: None HEART: Within normal limits PULMONARY TEODORO: Within normal limits MEDIASTINUM: Unremarkable LUNGS AND PLEURA: Developing large right basilar patchy consolidation. Small right pleural effusion may be present. No pneumothorax. BONY STRUCTURES: Intact ADDITIONAL FINDINGS None XR/XR chest 1V IMPRESSION: Developing large right basilar patchy consolidation. Consider infiltrate and/or aspiration pneumonitis. Impression dictated by: Nic Masters M.D. 09/03/2024 9:50 AM Dictation Location: [employer] Electronically authenticated by: [id number] Y Date: 09/03/2024 09:50
--- NOTE | 2024-09-03 05:20 | ED.SOB1 ---
HPI - SOB/Dyspnea General Chief Complaint: Shortness of Breath/Dyspnea Stated Complaint: sob Time Seen by Provider: 09/03/24 05:04 Source: patient Mode of arrival: Wheelchair History of Present Illness HPI Narrative: past history of COPD, CAD and hyperlipidemia. States she developed right sided chest pain around 9pm that radiated to her back. About an hour later she became short of breath. States pulse ox at home 45%. transferred to ER via private car. Pulse ox RA on arrival 83%. patient placed on NRB mask by nursing and pulse ox improved to 92%. Paient still has chest pain. Breathing is easier but still short of breath. No nausea or vomiting. Has low grade fever Related Data Home Medications ?Medication ?Instructions ?Recorded ?Confirmed albuterol sulfate 90 mcg/actuation 2 inh inhalation Q4H PRN shortness 10/02/22 04/18/24 aerosol inhaler of breath or wheezing atorvastatin 80 mg tablet 80 mg PO DAILY 10/02/22 04/18/24 cyclobenzaprine 10 mg tablet 10 mg PO Q8H PRN muscle spasm 10/02/22 04/18/24 fluticasone 250 mcg-salmeterol 50 1 inh inhalation BID 10/02/22 04/18/24 mcg/dose blistr powdr for inhalation ipratropium 0.5 mg-albuterol 3 mg 3 ml inhalation Q6H PRN shortness 10/02/22 04/18/24 (2.5 mg base)/3 mL nebulization of breath soln olmesartan 40 mg tablet 40 mg PO DAILY 10/02/22 04/18/24 cholecalciferol (vitamin D3) 25 1,000 unit PO DAILY 04/18/24 04/18/24 mcg (1,000 unit) capsule (Vitamin D3) furosemide 20 mg tablet 20 mg PO .QOD 04/18/24 04/18/24 magnesium 200 mg tablet 200 mg PO DAILY 04/18/24 04/18/24 omeprazole 40 mg capsule,delayed 40 mg PO DAILY 04/18/24 04/18/24 release prednisone 5 mg tablet 5 mg PO QDAY 04/18/24 04/18/24 Previous Rx's ?Medication ?Instructions ?Recorded isosorbide mononitrate 60 mg 60 mg PO DAILY #30 tabs 04/19/24 tablet,extended release 24 hr metoprolol succinate 50 mg 50 mg PO BID 30 days #60 tabs 04/19/24 tablet,extended release 24 hr Allergies Allergy/AdvReac Type Severity Reaction Status Date / Time hydrochlorothiazide Allergy Severe Anaphylaxis Verified 04/18/24 15:15 vancomycin Allergy Severe Anaphylaxis Verified 10/02/22 14:02 clopidogrel (From Plavix) Allergy Intermediate Rash Verified 10/02/22 14:02 Penicillins Allergy Intermediate Hives Verified 10/02/22 14:02 Sulfa (Sulfonamide Allergy Unknown Unknown Verified 04/18/24 15:10 Antibiotics) Review of Systems ROS Status of ROS 10 or more systems reviewed and unremarkable except as noted in history and below [facility] Medical History (Updated 09/03/24 @ 05:35 by Adan Parmar MD) Ventricular premature beats ?I49.3 - Ventricular premature depolarization (ICD-10) Palpitations ?R00.2 - Palpitations (ICD-10) CKD stage 3a, GFR 45-59 ml/min ?N18.31 - Chronic kidney disease, stage 3a (ICD-10) H/O ventricular tachycardia ?Z86.79 - Personal history of other diseases of the circulatory system (ICD-10) Obesity ?E66.9 - Obesity, unspecified (ICD-10) HLD (hyperlipidemia) ?E78.5 - Hyperlipidemia, unspecified (ICD-10) COPD (chronic obstructive pulmonary disease) ?J44.9 - Chronic obstructive pulmonary disease, unspecified (ICD-10) (HFpEF) heart failure with preserved ejection fraction ?I50.30 - Unspecified diastolic (congestive) heart failure (ICD-10) CAD (coronary artery disease) ?I25.10 - Atherosclerotic heart disease of [place] coronary artery without angina pectoris (ICD-10) Family History (Updated 04/19/24 @ 07:03 by Yulia Sotomayor RN) Grandmother Family history of CHF (congestive heart failure) Family history of hypertension Family history of myocardial infarction Mother Family history of COPD (chronic obstructive pulmonary disease) Family history of hypertension Family history of stroke Grandmother Family history of COPD (chronic obstructive pulmonary disease) Family history of cancer Family history of hypertension Sister Family history of COPD (chronic obstructive pulmonary disease) Grandfather Family history of hypertension Social History (Updated 04/19/24 @ 11:01 by Shaikh Ric MD) Within the past year, how often did you have a drink containing alcohol: never Score interpretation: A score less than 3 is consistent with normal alcohol consumption. Smoking status: Never smoker Highest level of school completed/degree received: high school graduate Little interest or pleasure in doing things: not at all Feeling down, depressed, or hopeless: not at all Exam Constitutional Vital Signs, click to edit/add: Last Vital Signs Temp 99.1 F 09/03/24 04:38 Pulse 112 H 09/03/24 05:40 Resp 23 H 09/03/24 05:40 BP 125/83 09/03/24 05:35 Pulse Ox 92 L 09/03/24 05:40 O2 Del Method Vapotherm 09/03/24 05:30 O2 Flow Rate 40 09/03/24 05:30 FiO2 80 09/03/24 05:30 General appearance: in distress (mild respiratory distress) HENOR Common normals: normocephalic and head/scalp atraumatic Eye Common normals: EOMs intact bilaterally Respiratory Auscultation: rhonchi Other: rhonchi R>>L Cardio Common normals: S1 normal heart sound and S2 normal heart sound Rate: tachycardic GI Common normals: Normal to inspection, nondistended, normoactive bowel sounds present, soft to palpation and non-tender Extremity Common normals: normal to inspection and full ROM Neuro Common normals: oriented x3, CN's II-XII intact bilaterally, moves all extremities and no focal motor deficits Psych Appearance: grossly normal Course Vital Signs Vital signs: Vital Signs Temperature 99.1 F 09/03/24 04:38 Pulse Rate 120 H 09/03/24 04:38 Respiratory Rate 26 H 09/03/24 04:38 Blood Pressure 146/113 H 09/03/24 04:38 Pulse Oximetry 83 L 09/03/24 04:38 Oxygen Delivery Method Room Air 09/03/24 04:38 Temperature 99.1 F 09/03/24 04:38 Pulse Rate 112 H 09/03/24 05:40 Respiratory Rate 23 H 09/03/24 05:40 Blood Pressure 125/83 09/03/24 05:35 Pulse Oximetry 92 L 09/03/24 05:40 Oxygen Delivery Method Vapotherm 09/03/24 05:30 Oxygen Delivery Flow Rate 40 09/03/24 05:30 Fraction of Inspired Oxygen 80 09/03/24 05:30 MDM - SOB/Dyspnea MDM Narrative Medical decision making narrative: patient presents acutely short of breath with right sided chest pain. Has low grade fever, history of CAD and COPD-ex smoker- on arrival RA pulse ox 83%. placed on NRB mask by nursing and pulse ox improved to 92%. Switched to hi flow 02 due to history of COPD and pulse ox 93%. . exam with diffuse Rhonchi Right chest. minor wheeze left chest. . labs ordered including BNP and troponin . EKG with sinus tach. Occ PVCs. cxray with RLL infiltrate. Blood cx and antibiotics ordered troponin and BNP normal. lactic acid pending. Hospitalist paged for admission. Discussed with Dr Prescott and she would like a 2nd troponin before the patient is admitted. Will transfer care to Dr Bedolla for final disposition of the patient Lab Data Labs: Lab Results 09/03/24 Range/Units 04:58 WBC 7.7 (4.0-11.0) 10^3/uL RBC 4.58 (4.20-5.40) 10^6/uL Hgb 14.4 (12.0-16.0) g/dL Hct 43.9 (36.0-48.0) % MCV 95.9 (81.0-99.0) fL MCH 31.4 (26.7-34.0) pg MCHC 32.8 (29.9-35.2) g/dL RDW 13.6 (11.0-15.0) % Plt Count 335 (150-450) 10^3/uL MPV 9.5 (9.5-13.5) fL Neut % (Auto) 82.4 H (43.0-75.0) % Lymph % (Auto) 15.8 L (20.5-60.0) % Dickinson % (Auto) 0.9 L (1.7-12.0) % Eos % (Auto) 0.3 L (0.9-7.0) % Baso % (Auto) 0.3 (0.2-2.0) % Neut # (Auto) 6.3 (1.4-6.5) 10^3/uL Lymph # (Auto) 1.2 (1.2-3.8) 10^3/uL Dickinson # (Auto) 0.1 L (0.3-0.8) 10^3/uL Eos # (Auto) 0.0 (0.0-0.7) 10^3/uL Baso # (Auto) 0.0 (0.0-0.1) 10^3/uL Abs Immat Gran (auto) 0.02 (0.00-0.03) 10^3/uL Imm/Tot Granulo (auto) 0.3 (0.0-0.5) % Sodium 140 (136-145) mmol/L Potassium 4.3 (3.5-5.1) mmol/L Chloride 101 (98-107) mmol/L Carbon Dioxide 28.5 (21.0-32.0) mmol/L Anion Gap 14.8 BUN 39.0 H (7.0-18.0) mg/dL Creatinine 1.67 H (0.55-1.02) mg/dL Est GFR ( Amer) 37 L (>=60 mL/min/1.73m^2) Est GFR (Non-Af Amer) 30 L (>=60 mL/min/1.73m^2) BUN/Creatinine Ratio 23.4 Glucose 129 H (74-106) mg/dL Lactate 2.4 H* (0.4-2.0) mmol/L Calcium 9.2 (8.5-10.1) mg/dL Total Bilirubin 0.3 (0.2-1.0) mg/dL AST 31 (15-37) U/L ALT 30 (14-59) U/L Alkaline Phosphatase 86 (46-116) U/L Troponin I High Sens 8.5 (4.0-51.3) pg/mL NT-Pro-B Natriuret Pep 692.0 (<=900.0) pg/mL Total Protein 7.1 (6.4-8.2) g/dL Albumin 3.4 (3.4-5.0) g/dL Globulin 3.7 g/dL Albumin/Globulin Ratio 0.9 Discharge Plan Discharge Patient Disposition: Still a Patient
[2024-09-03 05:27] LABS: Basophils Percent Auto 0.3 % (0.2-2.0); Eosinophils Percent Auto 0.3 % (0.9-7.0); Hematocrit 43.9 % (36.0-48.0); Hemoglobin 14.4 g/dL (12.0-16.0); Immature Granulocytes Abs Auto 0.02 10^3/uL (0.00-0.03); Immature Granulocytes Pct Auto 0.3 % (0.0-0.5); Lymphocytes Absolute Auto 1.2 10^3/uL (1.2-3.8); Lymphocytes Percent Auto 15.8 % (20.5-60.0); Mean Corpuscular HGB Conc 32.8 g/dL (29.9-35.2); Mean Corpuscular Hemoglobin 31.4 pg (26.7-34.0); Mean Corpuscular Volume 95.9 fL (81.0-99.0); Mean Platelet Volume 9.5 fL (9.5-13.5); Monocytes Absolute Auto 0.1 10^3/uL (0.3-0.8); Monocytes Percent Auto 0.9 % (1.7-12.0); Neutrophils Absolute Auto 6.3 10^3/uL (1.4-6.5); Neutrophils Percent Auto 82.4 % (43.0-75.0); Platelet Count 335 10^3/uL (150-450); Red Blood Count 4.58 10^6/uL (4.20-5.40); Red Cell Distribution Width 13.6 % (11.0-15.0); White Blood Count 7.7 10^3/uL (4.0-11.0)
[2024-09-03 05:43] LABS: Alanine Aminotransferase 30 U/L (14-59); Albumin Globulin Ratio 0.9; Albumin Level 3.4 g/dL (3.4-5.0); Alkaline Phosphatase 86 U/L (46-116); Anion Gap 14.8; Aspartate Amino Transferase 31 U/L (15-37); BUN Creatinine Ratio 23.4; Bilirubin Total 0.3 mg/dL (0.2-1.0); Calcium 9.2 mg/dL (8.5-10.1); Carbon Dioxide 28.5 mmol/L (21.0-32.0); Chloride 101 mmol/L (98-107); Estimated GFR (African America 37 (>=60 mL/min/1.73m^2); Estimated GFR (Non-African Ame 30 (>=60 mL/min/1.73m^2); Globulin 3.7 g/dL; Glucose 129 mg/dL (74-106); Potassium 4.3 mmol/L (3.5-5.1); Sodium 140 mmol/L (136-145); Total Protein 7.1 g/dL (6.4-8.2); Troponin I High Sensitivity 8.5 pg/mL (4.0-51.3)
--- NOTE | 2024-09-03 05:43 | ECG_ITS ---
The [facility] Test Date: 2024-09-03 Pat Name: CHIARA EDUARDO Department: Room: - Gender: Female Veneer Drier: : 1955 Requested By: [id number] Order Number: [id number] Reading MD: HERIBERTO BARTON M.D. Measurements Intervals [place] Rate: 111 P: 86 [place]: 144 QRS: 59 QRSD: 74 T: 59 QT: 290 QTc: 356 Interpretive Statements 1120 Sinus tachycardia 1574 with frequent ventricular premature complexes 8305 Short QTc interval 9150 abnormal ECG Compared to ECG 04/18/2024 15:15:05 QT has shortened Electronically Signed On 09-03-2024 20:01:58 EDT by HERIBERTO BARTON M.D.
[2024-09-03] MEDS: METHYLPREDNISOLONE SOD SUCC PF 125 MG/2 ML VIAL IVP (05:45)
[2024-09-03] MEDS: CEFTRIAXONE 1,000 MG in 0.9 % SODIUM CHLORIDE 50 ML 100 MG IV (06:04)
[2024-09-03 06:09] LABS: Lactate/Lactic Acid 2.4 mmol/L (0.4-2.0)
[2024-09-03] MEDS: FENTANYL CITRATE/PF 100 MCG/2 ML VIAL 50 MCG IV (06:37)
[2024-09-03] MEDS: 0.9 % SODIUM CHLORIDE 1,000 ML 999 ML IV (06:37)
[2024-09-03] MEDS: ONDANSETRON PF 4 MG/2 ML VIAL IV (06:37)
[2024-09-03] MEDS: AZITHROMYCIN 500 MG in 0.9 % SODIUM CHLORIDE 250 ML 250 MG IV (06:37)
[2024-09-03 07:24] LABS: Lactate/Lactic Acid 3.2 mmol/L (0.4-2.0)
[2024-09-03 07:46] LABS: Troponin I High Sensitivity 78.9 pg/mL (4.0-51.3)
[2024-09-03 08:28] LABS: INR 0.95; Partial Thromboplastin Time 21.5 sec (22.3-36.2); Prothrombin Time 10.1 sec (9.0-11.6)
[2024-09-03] MEDS: HEPARIN SODIUM,PORCINE/D5W 25,000 UNIT/500 ML IV.SOLN 16 UNIT IV (08:43)
[2024-09-03] MEDS: HEPARIN SODIUM (PORCINE) 5,000 UNIT/ML VIAL 2700 UNIT IV (08:55)
--- NOTE | 2024-09-03 09:02 | ED.GENADUL1 ---
HPI HPI - General Adult General Chief complaint: Shortness of Breath/Dyspnea Stated complaint: sob Time Seen by Provider: 09/03/24 05:04 Source: patient Mode of arrival: Wheelchair History of Present Illness HPI narrative: The patient was initially seen by Dr. Parmar and signed out to me after discussing the case with him thoroughly. Please see his full history and physical exam. Related Data Home Medications ?Medication ?Instructions ?Recorded ?Confirmed albuterol sulfate 90 mcg/actuation 2 inh inhalation Q4H PRN shortness 10/02/22 09/03/24 aerosol inhaler of breath or wheezing atorvastatin 80 mg tablet 80 mg PO DAILY 10/02/22 09/03/24 ipratropium 0.5 mg-albuterol 3 mg 3 ml inhalation Q6H PRN shortness 10/02/22 09/03/24 (2.5 mg base)/3 mL nebulization of breath soln olmesartan 40 mg tablet 40 mg PO DAILY 10/02/22 09/03/24 cholecalciferol (vitamin D3) 25 25 mcg PO DAILY 04/18/24 09/03/24 mcg (1,000 unit) capsule (Vitamin D3) furosemide 20 mg tablet 20 mg PO .QOD 04/18/24 09/03/24 magnesium 200 mg tablet 200 mg PO DAILY 04/18/24 04/18/24 dapagliflozin propanediol 10 mg 10 mg PO DAILY 09/03/24 09/03/24 tablet (Farxiga) fluticasone fur. 100 mcg-umeclid 1 inh inhalation DAILY 09/03/24 09/03/24 62.5 mcg-vilant 25 mcg inhalat.powder (Trelegy Ellipta) prednisone 10 mg tablet 10 mg PO DAILY 09/03/24 09/03/24 ranolazine 500 mg tablet,extended 500 mg PO BID 09/03/24 09/03/24 release,12 hr Previous Rx's ?Medication ?Instructions ?Recorded isosorbide mononitrate 60 mg 60 mg PO DAILY #30 tabs 04/19/24 tablet,extended release 24 hr metoprolol succinate 50 mg 50 mg PO BID 30 days #60 tabs 04/19/24 tablet,extended release 24 hr Allergies Allergy/AdvReac Type Severity Reaction Status Date / Time hydrochlorothiazide Allergy Severe Anaphylaxis Verified 04/18/24 15:15 vancomycin Allergy Severe Anaphylaxis Verified 10/02/22 14:02 clopidogrel (From Plavix) Allergy Intermediate Rash Verified 10/02/22 14:02 Penicillins Allergy Intermediate Hives Verified 10/02/22 14:02 Sulfa (Sulfonamide Allergy Unknown Unknown Verified 04/18/24 15:10 Antibiotics) Opioid HPI Opioid Management Most Recent Opioid Data: Last Pain Scale 10 Today, 06:37 Last MAR Pain Assessment Today, 06:37 Last ORT Total Score 0 04/18/24, 19:57 Last ORT Risk Category Low Risk 04/18/24, 19:57 PFSH PFSH Medical History (Updated 09/03/24 @ 09:02 by Beny Bedolla MD) Ventricular premature beats ?I49.3 - Ventricular premature depolarization (ICD-10) Palpitations ?R00.2 - Palpitations (ICD-10) CKD stage 3a, GFR 45-59 ml/min ?N18.31 - Chronic kidney disease, stage 3a (ICD-10) H/O ventricular tachycardia ?Z86.79 - Personal history of other diseases of the circulatory system (ICD-10) Obesity ?E66.9 - Obesity, unspecified (ICD-10) HLD (hyperlipidemia) ?E78.5 - Hyperlipidemia, unspecified (ICD-10) COPD (chronic obstructive pulmonary disease) ?J44.9 - Chronic obstructive pulmonary disease, unspecified (ICD-10) (HFpEF) heart failure with preserved ejection fraction ?I50.30 - Unspecified diastolic (congestive) heart failure (ICD-10) CAD (coronary artery disease) ?I25.10 - Atherosclerotic heart disease of [place] coronary artery without angina pectoris (ICD-10) Family History (Updated 04/19/24 @ 07:03 by Yulia Sotomayor RN) Grandmother Family history of CHF (congestive heart failure) Family history of hypertension Family history of myocardial infarction Mother Family history of COPD (chronic obstructive pulmonary disease) Family history of hypertension Family history of stroke Grandmother Family history of COPD (chronic obstructive pulmonary disease) Family history of cancer Family history of hypertension Sister Family history of COPD (chronic obstructive pulmonary disease) Grandfather Family history of hypertension Social History (Updated 04/19/24 @ 11:01 by Shaikh Ric MD) Within the past year, how often did you have a drink containing alcohol: never Score interpretation: A score less than 3 is consistent with normal alcohol consumption. Smoking status: Never smoker Highest level of school completed/degree received: high school graduate Little interest or pleasure in doing things: not at all Feeling down, depressed, or hopeless: not at all Exam Constitutional Vital Signs, click to edit/add: Last Vital Signs Temp 99.1 F 09/03/24 04:38 Pulse 112 H 09/03/24 05:40 Resp 23 H 09/03/24 05:40 BP 125/83 09/03/24 05:35 Pulse Ox 92 L 09/03/24 05:40 O2 Del Method Vapotherm 09/03/24 05:30 O2 Flow Rate 40 09/03/24 05:30 FiO2 80 09/03/24 05:30 Course Vital Signs Vital signs: Vital Signs Temperature 99.1 F 09/03/24 04:38 Pulse Rate 120 H 09/03/24 04:38 Respiratory Rate 26 H 09/03/24 04:38 Blood Pressure 146/113 H 09/03/24 04:38 Pulse Oximetry 83 L 09/03/24 04:38 Oxygen Delivery Method Room Air 09/03/24 04:38 Temperature 99.1 F 09/03/24 04:38 Pulse Rate 112 H 09/03/24 05:40 Respiratory Rate 23 H 09/03/24 05:40 Blood Pressure 125/83 09/03/24 05:35 Pulse Oximetry 92 L 09/03/24 05:40 Oxygen Delivery Method Vapotherm 09/03/24 05:30 Oxygen Delivery Flow Rate 40 09/03/24 05:30 Fraction of Inspired Oxygen 80 09/03/24 05:30 Medical Decision Making MDM Narrative Medical decision making narrative: Initial troponin was negative but repeat went up to 78. I spoke to Dr. Prescott and we have agreed that the patient will be transferred to [email or web address] I have spoken to Dr. Sorto at [facility] [[email or web address]] who accepts the patient. The patient is agreeable and stable for transfer. Lab Data Lab results reviewed: Yes I reviewed the patient's lab results Labs: Lab Results 09/03/24 09/03/24 09/03/24 Range/Units 04:58 06:52 07:20 WBC 7.7 (4.0-11.0) 10^3/uL RBC 4.58 (4.20-5.40) 10^6/uL Hgb 14.4 (12.0-16.0) g/dL Hct 43.9 (36.0-48.0) % MCV 95.9 (81.0-99.0) fL MCH 31.4 (26.7-34.0) pg MCHC 32.8 (29.9-35.2) g/dL RDW 13.6 (11.0-15.0) % Plt Count 335 (150-450) 10^3/uL MPV 9.5 (9.5-13.5) fL Neut % (Auto) 82.4 H (43.0-75.0) % Lymph % (Auto) 15.8 L (20.5-60.0) % Price % (Auto) 0.9 L (1.7-12.0) % Eos % (Auto) 0.3 L (0.9-7.0) % Baso % (Auto) 0.3 (0.2-2.0) % Neut # (Auto) 6.3 (1.4-6.5) 10^3/uL Lymph # (Auto) 1.2 (1.2-3.8) 10^3/uL Price # (Auto) 0.1 L (0.3-0.8) 10^3/uL Eos # (Auto) 0.0 (0.0-0.7) 10^3/uL Baso # (Auto) 0.0 (0.0-0.1) 10^3/uL Abs Immat Gran (auto) 0.02 (0.00-0.03) 10^3/uL Imm/Tot Granulo (auto) 0.3 (0.0-0.5) % PT 10.1 (9.0-11.6) sec INR 0.95 APTT 21.5 L (22.3-36.2) sec Sodium 140 (136-145) mmol/L Potassium 4.3 (3.5-5.1) mmol/L Chloride 101 (98-107) mmol/L Carbon Dioxide 28.5 (21.0-32.0) mmol/L Anion Gap 14.8 BUN 39.0 H (7.0-18.0) mg/dL Creatinine 1.67 H (0.55-1.02) mg/dL Est GFR ( Amer) 37 L (>=60 mL/min/1.73m^2) Est GFR (Non-Af Amer) 30 L (>=60 mL/min/1.73m^2) BUN/Creatinine Ratio 23.4 Glucose 129 H (74-106) mg/dL Lactate 2.4 H* 3.2 H* (0.4-2.0) mmol/L Calcium 9.2 (8.5-10.1) mg/dL Total Bilirubin 0.3 (0.2-1.0) mg/dL AST 31 (15-37) U/L ALT 30 (14-59) U/L Alkaline Phosphatase 86 (46-116) U/L Troponin I High Sens 8.5 78.9 H* (4.0-51.3) pg/mL NT-Pro-B Natriuret Pep 692.0 (<=900.0) pg/mL Total Protein 7.1 (6.4-8.2) g/dL Albumin 3.4 (3.4-5.0) g/dL Globulin 3.7 g/dL Albumin/Globulin Ratio 0.9 Imaging Data Chest x-ray: Radiologist's impression: Right lower lobe pneumonia ECG Data Attestation: I personally reviewed and interpreted this ECG as follows: (No acute findings) Critical Care Time Critical Care Time Critical Care Time: Yes Total Critical Care Time: 35 Attestation: Due to the high probability of sudden and clinically significant deterioration in the patient's condition he/she required the highest level of my preparedness to intervene urgently I provided critical care time including documentation time, medication orders and management, reevaluation, vital sign assessment, ordering and reviewing of lab tests, ordering and reviewing of x-ray studies, and admission orders. Aggregate critical care time is 35 minutes including only time during which I was engaged in work directly related to his/her care and did not include time spent treating other patients simultaneously. Discharge Plan Discharge Chief Complaint: Shortness of Breath/Dyspnea Clinical Impression: Pneumonia, Hypoxemia, Non-ST elevation [place] (NSTEMI) Patient Disposition: [facility] Time of Disposition Decision: 09:01 Discharge Location: [facility] Condition: Fair Mode of Transportation: EMS
[2024-09-03] MEDS: MORPHINE SULFATE 2 MG/ML SYRINGE IV ×2 (11:10→13:55)
== END 2024-09-03 14:45 | disposition short-term general hospital (02) ==
PROVIDERS: Internal Medicine; Emergency Provider Emergency Medicine; PCP Nurse Practitioner
DX: I21.4 Non-ST elevation (NSTEMI) myocardial infarction (principal); J18.9 Pneumonia, unspecified organism; R06.02 Shortness of breath; R09.02 Hypoxemia; J44.0 Chronic obstructive pulmonary disease with (acute) lower respiratory infection; I25.10 Atherosclerotic heart disease of native coronary artery without angina pectoris; E78.5 Hyperlipidemia, unspecified; R07.9 Chest pain, unspecified; R50.9 Fever, unspecified; Z87.891 Personal history of nicotine dependence
CPT/HCPCS: 36415; 71045; 80053; 83605; 83880; 84484; 85025; 85610; 85730; 87040; 93005; 94799; 96365; 96366; 96367; 96368; 96375; 96376; 99285; J0456; J0696; J1644; J2270; J2405; J2919; J3010

== ENCOUNTER 2024-10-03 11:42 | Outpatient (OUT) | payer MEDICARE, SELFPAY ==
--- OUTSIDE RECORDS SUMMARY | 2024-09-06 13:03 | XMS_ITS ---
Author Organization [facility] in [place] Address [address] [place] [address] Care Team Providers Care Manager Video Games Name Role Phone Nolvia Jimenez CNP Primary Care Provider Unavail Brien Estrada Unavailable [phone] REASON FOR VISIT DuoNeb refill Medications Medication SIG (Take, Route, Frequency, Duration) Notes Start Date End Date Status Ipratropium-Albuterol 0.5-2.5 (3) MG/3ML 3mL Inhalation QID for 90 days Dispense 360 ampules 08/11/2023 Active Encounters Encounter Location Date Provider Diagnosis Pulmonary Medicine [place] [address] [place] [address] 09/06/2024 Brien Coughlin COPD (chronic obstructive pulmonary [...] Name:Brien Victoria, 11/22/2024 11:30:00 AM, [address] [place], [address], Progress Notes * Susana JUARESDOB:[birth year] (69 yo F)Acc No.[id number]:09/06/2024 Patient: Susana MARTIN :1955 A ge:69 Y S ex:Female Address:[address] [place] [phone] * Refills Refill Ipratropium-Albuterol Solution, 0.5-2.5 (3) [...] Date: Generated for Merly gonzalez/Brandin/Edithsmitting on: 0 10/03/2024 11:46 AM EDT
--- OUTSIDE RECORDS SUMMARY | 2024-09-07 09:29 | XMS_ITS ---
Author Organization [facility] in [place] Address [address] [place] [address] Care Team Providers Care Training Professional Name Role Phone Nolvia Jimenez CNP Primary Care Provider Brien Chase Unavailable [phone] REASON FOR VISIT Oxygen Encounters Encounter Location Date Provider Diagnosis Pulmonary Medicine [place] [address] [place] [address] 09/07/2024 Brien Coughlin Plan Of Treatment Next Appt Details Provider Name:Brien Coughlin, 11/22/2024 11:30:00 AM, [address] [place], [address], Progress Notes * Susana JUARESDOB:[birth year] (69 yo F)Acc No.[id number]:09/07/2024 Patient: Karo BARRIGA Susana :1955 A ge:69 Y S ex:Female Address:[address] [address] * true * Date: Generated for Merly gonzalez/Brandin/eTransmitting on: 0 10/03/2024 11:46 AM EDT
--- OUTSIDE RECORDS SUMMARY | 2024-09-12 11:30 | XMS_ITS ---
Author Organization [facility] in [place] Address [address] [place] [address] Care Team Providers Care Ambulance Attendant Name Role Phone Nolvia Jimenez CNP Primary Care Provider Unavail able Juliensa Brien Unavailable [phone] Allergies Allergen (clinical drug ingredient) Drug/Non Drug Allergy documented on EMR Reaction Allergy Type Onset Date Status clopidogrel Plavix Unknown Drug Allergy Active hydrochlorothiazide Hydrochlorothiazide shortnes s of breath Drug Allergy Active Substance with sulfonamide structure and antibacterial mechanism of action (substance) Sulfa Antibiotics Unknown Drug Allergy Active Penicillin rash Drug Allergy Active vancomycin Vancomycin Unknown Drug Allergy Active REASON FOR VISIT F/U-[facility] Medications Medication SIG (Take, Route, Frequency, Duration) Notes Start Date End Date Status Vitamin D 50 MCG (1999) 1 tablet Oral ly Once a day Active predniSONE 10 MG 1 tablet Orally Once a day for 90 days Take with food Active Ventolin HFA 108 (90 Base) MCG/ACT 2 puffs as needed for SOB Inhalation Q4H for 90 days Dispense #3 inhalers Active Dupixent 300 MG/2ML as directed Subcutaneous Active Trelegy Ellipta 100-62.5-25 MCG/ACT 1 puff Inhalation Once a day for 90 days Rinse after use ; Dispense #3 inhalers Active Magnesium Oxide -Mg Supplement 400 (240 Mg) MG TAKE 1 TABLET BY MOUTH IN THE MORNING then TAKE 1 TABLET BY MOUTH AT BEDTIME Oral for 15 Days Active Metoprolol Tartrate 50 MG TAKE 1 TABLET BY MOUTH TWICE DAILY Oral for 90 Days Active Isosorbide Mononitrate ER 60 MG 1 tablet in the morning Orally Once a day for 30 days Active Olmesartan Medoxomil 40 MG 1 tablet Oral ly Once a day for 90 days Active Omeprazole 20 MG 1 capsule 30 minutes before morning meal Orally Once a day Active Ipratropium-Albuterol 0.5-2.5 (3) MG/3ML 3mL Inhalation QID for 90 days Dispense 360 ampules 08/11/2023 Active Furosemide 20 MG 1 tablet Orally Once a day for 90 days Active guaiFENesin ER 600 MG 1 tablet as needed Orally every 12 hrs Active Farxiga 10 MG 1 tablet Orally Once a day for 30 days Active Cyclobenzaprine HCl 10 MG TAKE 1 TABLET BY MOUTH THREE TIMES DAILY NEEDED Oral for 30 days Active Aspirin 81 MG 1 tablet Orally Once a day Active Atorvastatin Calcium 80 MG TAKE 1 TABLET BY MOUTH DAILY Oral for 90 Days Active Social History Tobacco Use: Social History Observation Description Date Details (start date - stop date) Former Smoker NA - NA Tobacco Control (Standard) Question Answer Notes Tobacco use: Former smoker Additional Findings: Tobacco non-user Ex-heavy c igarette smoker (20-30/day) Problems Problem Type SNOMED Code ICD Code Onset Dates Problem Status W/U Status Risk Notes Problem History of non-ST elevation myocardial infarction (NSTEMI) (I25.2) Active confirmed Problem Chronic respiratory failure (79482745) Chronic respiratory failure with hypoxia (J96.11) Active confirmed Vital Signs Weight 195.6 lbs 09/12/2024 Height 63 in 09/12/2024 Blood pressure systolic 118 mm Hg 09/13/19 25 Blood pressure diastolic 75 mm Hg 025 Temperature 97.0 degrees Fahrenheit 09/13/19 25 Heart Rate 92 /min 09/12/2024 Respiratory Rate 20 /min 09/12/2024 BMI 34.65 kg/m2 09/12/2024 Oximetry 93 % 09/12/2024 3L O2 Activity/RestingRA- Re sting Encounters Encounter Location Date Provider Diagnosis Pulmonary Medicine [place] [address] [place] [address] 09/12/2024 Brien Coughlin COPD (chronic obstructive pulmonary disease) J44.9 ; Chronic respiratory failure with hypoxia J96.11 ; Multiple pulmonary nodules R91.8 ; History of non-ST elevation myocardial infarction (NSTEMI) I25.2 ; History of tobacco abuse Z87.891 ; 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 Previously refused additional treatment options (e.g. EBV, Ohtuvayre, converting over to nebs). Already on daily prednisone. Very concerned patient is overdoing it. Advised her to be active, but not stress herself. She should restart phase 3 cardiac (not pulmonary) rehabilitation for cardiac monitoring d/t the NSTEMI and reduced EF. Ilvc-mz-kjls encounter performed with the patient to document continued need for a nebulizer with nebulized medications. -Current nebulized medications: DuoNeb -Symptom control: Improved with use -Reported side or adverse effects: None -Recommendations: Renew, refill, reorder nebulizer and supplies. 09/12/2024 Chronic respiratory failure with hypoxia (ICD-10 - J96.11) Vgne-hp-haip encounter performed with the patient to document continued need for supplemental oxygen (O2). -DME: [facility]CS -Flow & directions: 3L/min O2 activity -Patient voices adherence to recommended usage: Yes -Symptom control on O2: Improved, but still SOB -Counseled patient not begin, restart, or continue smoking, around the O2 due to risk of fire which could result in damage to the O2 tanks & lines, smoke inhalation and flame damage to the airway, significant kirk, potential , property damage, and potential harm & to bystanders. Additionally, counseled it is not pope to begin, restart, or continue smoking given the underlying pulmonary disease that led to the point of requiring O2. -Recommendations: SpO2 87% on 3L/min with activity. Can increase O2 flow to 4L/min activity for now (no evidence of hypercapnic respiratory failure). Explained at 4L/min, the POC battery will be taxed - any increase in flow she will need to convert over to continuous. She may participate in cardiac rehab to keep SpO2 @ 89% or greater. 09/12/2024 Multiple pulmonary nodules (ICD-10 - R91.8) Unchanged nodule 04/18/2024 as far back as 01/20/2023. 09/12/2024 History of non-ST elevation myocardial infarction (NSTEMI) (ICD-10 - I25.2) 09/03/2024: NSTEMI type 2 secondary to pneumonia Now has reduced EF @ 44%. Restart cardiac rehab, F/U with [facility] Cardiology. 09/12/2024 History of tobacco abuse (ICD-10 - Z87.891) 1ppd x 50 years, quit 2017 LDCT 01/24/2024 - RADS-2. LDCT due 12/2024. 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 09/12/2024 Obesity, unspecified (ICD-10 - E66.9) Patient's weight is inducing a restrictive pulmonary physiology. Weight loss indicated: Decrease calories, increase activity. Plan Of Treatment Medication Medication Name Sig Start Date Stop Date Notes predniSONE 10 MG 1 tablet Orally Once a day for 90 days Ventolin HFA 108 (90 Base) MCG/ACT 2 puffs as needed for SOB Inhalation Q4H for 90 days Dupixent 300 MG/2ML as directed Subcutaneous Trelegy Ellipta 100-62.5-25 MCG/ACT 1 puff Inhalation Once a day for 90 days Treatment Notes Assessment Notes COPD (chronic obstructive pu lmonary disease) Prior inhalers: Trelegy ~ Breztri > Advair Patient had pneumonia and exacerbation ~2 weeks ago, now on supplemental O2. Previously refused additional treatment options (e.g. EBV, Ohtuvayre, converting over to nebs). Already on daily prednisone. Very concerned patient is overdoing it. Advised her to be active, but not stress herself. She should restart phase 3 cardiac (not pulmonary) rehabilitation for cardiac monitoring d/t the NSTEMI and reduced EF. Mxaz-qu-pvnb encounter performed with the patient to document continued need for a nebulizer with nebulized medications. -Current nebulized medications: DuoNeb -Symptom control: Improved with use -Reported side or adverse effects: None -Recommendations: Renew, refill, reorder nebulizer and supplies. Chronic respiratory failure with hypoxia Dxjc-zf-vrzn encounter performed with the patient to document continued need for supplemental oxygen (O2). -DME: HCS -Flow & directions: 3L/min O2 activity -Patient voices adherence to recommended usage: Yes -Symptom control on O2: Improved, but still SOB -Counseled patient not begin, restart, or continue smoking, around the O2 due to risk of fire which could result in damage to the O2 tanks & lines, smoke inhalation and flame damage to the airway, significant kirk, potential , property damage, and potential harm & to bystanders. Additionally, counseled it is not pope to begin, restart, or continue smoking given the underlying pulmonary disease that led to the point of requiring O2. -Recommendations: SpO2 87% on 3L/min with activity. Can increase O2 flow to 4L/min activity for now (no evidence of hypercapnic respiratory failure). Explained at 4L/min, the POC battery will be taxed - any increase in flow she will need to convert over to continuous. She may participate in cardiac rehab to keep SpO2 @ 89% or greater. Multiple pulmonary nodules Unchanged nodule 04/18/2024 as far back as 01/20/2023. History of non-ST elevation myocardial infarction (NSTEMI) 09/03/2024: NSTEMI type 2 secondary to pneumonia Now has reduced EF @ 44%. Restart cardiac rehab, F/U with [facility] Cardiology. History of tobacco abuse 1ppd x 50 years, quit 2017 LDCT 01/24/2024 - RADS-2. LDCT due 12/2024. half-way (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 of s ystemic steroids Discussed adverse effects of mcc systemic steroids including, but not limited to: increased risk of cataracts, elevated blood sugars/worsening of underlying diabetes mellitus, impaired wound healing, gastrointestinal ulcers, osteoporosis. half-way (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 of i nhaled steroids Patient was counseled to rinse & gargle with water after inhaled corticosteroid use. Obesity, unspecified Patient's weight is inducing a restrictive pulmonary physiology. Weight loss indicated: Decrease calories, increase activity. Next Appt Details Follow Up: 4 Months, Reason: COPD, O2 Provider Name:Brien Coughlin, 11/22/2024 11:30:00 AM, [address] [place], [address], Procedure Notes * Category Sub-Category Detail Notes PFT Data: 01/24/2024-FEV1/ FVC: 53%-FEV1: 43%-FVC: 61%-Bronchodilator response: Positive in FVC-RV: 184%-T%-DLCO: 55%-Flow-volume loop: Severe gdyhhocgnwo07/23/2023-FEV1/FVC: 55%-FEV1: 41%-FVC: 56%-Bronchodilator response: Positive in FVC-RV: 197%-T%-DLCO: 61%-Flow-volume loop: Severe nyfwsjwotqz40/28/2022-FEV1/FVC: 61%-FEV1: 49%-FVC: 61%-Bronchodilator response: Equivocal-RV: 166%-T%-DLCO: 53%-Flow-volume loop: Severe qyxxxlabfdu80/21/2020 - Spirometry-FEV1/FVC: 59%-FEV1: 47%-FVC: 64%-RFF10-56%: 25%-Flow-volume loop: Moderately-severe obstruction-No bronchodilator response07/20/20188760-Lzfyvyfyly-YRR6/FVC: 63%-FEV1: 51%-FVC: 62%-RMY60-98%: 31%-Flow-volume loop: Moderate obstruction07/20/20175328-Ejppvfkhhw-EDE9/FVC: 69% -FEV1: 55%-FVC: 68%-MWK90-14%: 31%-Flow-volume loop: Moderate obstruction Alpha-1 Antitrypsin Screening Date: 01/15/2021 Genotype: M/M Progress Notes * Susana EDUARDODOB:[birth year] (69 yo F)Acc No.[id number]:09/12/2024 Progress Note Patient: Susana MARTIN Provider: Tam Coughlin DO :1955 A ge:69 Y S ex:Female Date:09/12/2024 Address:[address] [place] [address] [address] [facility] [place] , [place], [id number] Pcp:Nolvia Jimenez CNP Check In:03:33 PM ESTCheck O ut:04:47 PM EST Subjective: * Chief Complaints: * F /U-[facility] * HPI: G eneral: Patient was last seen by me on 08/23/2024. Her breathing worsened after that day and came to [facility] ER on with dyspnea, chest pain, hypoxia. On arrival, SpO2 was 83% on room air. Troponins were elevated. She was transferred to [facility]. Reviewed discharge summary - she was admitted for NSTEMI type 2 secondary to supply/demand mismatch from RLL pneumonia; EF also reduced to 44% compared to normal EF from 2022. She was discharged home with O2 @ 3L/min activity. Today, she continues to use O2 @ 3L/min with activity but continues to have dyspnea on exertion.? SpO2 was 87% on 3L/min O2 today. She uses Trelegy and the nebulizer. She seems to be overdoing it at home, trying to be as active as she previously was. She will become strained and takes longer to recover. She has an appointment with cardiology within the next 1-2 weeks. She was in phase 3 cardiopulmonary rehabilitation, but stopped d/t the illness. MA Intake Comments:. Patient presents for a hospital follow up after a recent admission on 09/03/2024 at [facility]. Patient was discharged home on 3L O2. DME:HCS. Patient complains of SOB, Cough & wheezing. Patient is currently on Trelegy,Dupixent and Prednsione daily. Patient reports her last Dupixent was two weeks ago and is due tomorrow at home. Patient is under the care of [facility] Cardiology. * ROS: G eneral/Constitutional: Fever or [...] nxiety d enies. 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 Modified On:01/25/2023 Status:confirmed J44.9 COPD (chronic obstru ctive pulmonary disease) Modified On:02/08/2023 Status:confirmed I25.10 CAD (coronary artery disease) Modified On:01/25/2023 Status:confirmed R91.8 Multiple pulmonary n odules Modified On:01/25/2023 Status:confirmed Z87.891 History of tobacco a buse Modified On:01/25/2023 Status:confirmed I25.2 History of non-ST el evation myocardial infarction (NSTEMI) Modified On:09/12/2024U Status:confirmed E66.9 Obesity, unspecified Modified On:07/20/2023 Status:confirmed Z68.35 Body mass index [BMI ] 35.0-35.9, adult Modified On:07/20/2023 Status:confirmed J44.9 Chronic obstructive pulmonary disease, unspecified Modified On:01/28/2024 Status:confirmed Z79.52 half-way (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 of systemic steroids Modified On:08/01/2024U Status:confirmed * Medical History: * Surgical History: C ardiac Catheterization-2001, 07/14/2022, 10/30/2022 & 07/03/2024 hysterectomy cholecystectomy * Hospitalization/Major Diagno stic Procedure: A rrhythmia & Hyponatremia-[facility] 3Acute Respiratory Failure-[facility] 09/03/2024 * Family History: M other: stroke, COPD, diagnosed with Unspecified heart disease, Unspecified essential hypertension. S ister(s): emphysema. F ather: diagnosed with Unspecified heart disease, Unspecified essential hypertension. * Social History: T obacco Use: T [...] you smoke marijuana?: Denies. * Medications: T akingAspirin 81 MG Tablet Delayed Release 1 tablet [...] Furosemide 20 MG Tablet 1 tablet Orally Once a day guaiFENesin ER 600 MG Tablet Extended [...] Orally Once a day Take with foodTrelegy Ellipta(Mfejwfzbime-Xlseyqbxr-Jhgsqs) 100-62.5-25 MCG/ACT Aerosol Powder Breath Activated 1 puff Inhalation Once a day Rinse after use ; Dispense #3 inhalersVentolin HFA(Albuterol Sulfate HFA) 108 (90 Base) MCG/ACT Aerosol Solution 2 puffs as needed for SOB Inhalation Q4H Dispense #3 inhalersVitamin D 50 MCG (2000 UT) Tablet 1 tablet Orally Once a day Taking Aspirin 81 MG Tablet Delayed Release [...] Furosemide 20 MG Tablet 1 tablet Orally Once a day Taking guaiFENesin ER 600 MG Tablet [...] Once a day Take with foodTaking Trelegy Ellipta(Opwxklupspc-Kuyltxfqc-Dhsryg) 100-62.5-25 MCG/ACT Aerosol Powder Breath Activated 1 puff Inhalation Once a day Rinse after use ; Dispense #3 inhalersTaking Ventolin HFA(Albuterol Sulfate HFA) 108 (90 Base) MCG/ACT Aerosol Solution 2 puffs as needed for SOB Inhalation Q4H Dispense #3 inhalersTaking Vitamin D 50 MCG (2000 UT) Tablet 1 tablet Orally Once a day DiscontinuedAzithromycin 500 MG Tablet TAKE 1 TABLET BY MOUTH ONCE DAILY Oral Cefpodoxime Proxetil 200 MG Tablet Oral Medication List reviewed and reconciled with the patientDiscontinued Azithromycin 500 MG Tablet TAKE 1 TABLET BY MOUTH ONCE DAILY Oral Discontinued Cefpodoxime Proxetil 200 MG Tablet Oral Medication List reviewed and reconciled with the patient * Allergies: V ancomycin: AllergyPlavix: AllergySulfa Antibiotics: AllergyPenicillin: rash - AllergyHydrochlorothiazide: shortness of breath - Allergyno[Allergies Verified] Objective: * Vitals: W t:195.6lbs, Ht: 63 in, BP:sittin/75mm Hg, Temp:Forehead:97.0F, HR: 98 /min,82 /min,92/min, RR:20/min, BMI:34.65Index, Oxygen sat %: Oxygen 3l:87 %,Oxygen 3l:96 %,Room Air:93%, Ht-cm: 160.02 cm, Wt-k.72 kg. 3L O2 Activity/Resting RA- Resting. * Examination: E xam: GENERAL APPEARANCE: I n no respiratory distress. Seems tired today. Skin N ormal. Nose W earing nasal cannula. Mouth P ink and moist. No candidiasis. Oropharynx M allampati Class III. Trachea M idline. Chest I ncreased A-P Diameter. Respiratory Normal M ovements, E ffort N ormal. Auscultation D iminished breath sounds, otherwise clear to auscultation. Cardiac R egular rate and rhythm. Gastrointestinal M ild central adiposity. Vascular N o edema. Musculoskeletal N ormal posture. Neurological F ocal, intact. Psychiatric A lert and oriented x3. Mentation/Cognition N ormal. Assessment: * Assessment: 1. C OPD (chronic obstructive pulmonary disease) - J44.9 (Primary) 2 . C hronic respiratory failure with hypoxia - J96.11 3 . M ultiple pulmonary nodules - R91.8 4 . H istory of non-ST elevation myocardial infarction (NSTEMI) - I25.2 5. H istory of tobacco abuse - Z87.891 6 . L joseph term (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 of systemic steroids - Z79.52 7 . L joseph term (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 of inhaled steroids - Z79.51 8 . O besity, unspecified - E66.9 Plan: * Treatment: 2. C hronic respiratory failure with hypoxia Notes: Kyrh-ti-sfgv encounter performed with the patient to document continued need for supplemental oxygen (O2). -DME: [facility]CS -Flow & directions: 3L/min O2 activity -Patient voices adherence to recommended usage: Yes -Symptom control on O2: Improved, but still SOB -Counseled patient not begin, restart, or continue smoking, around the O2 due to risk of fire which could result in damage to the O2 tanks & lines, smoke inhalation and flame damage to the airway, significant kirk, potential , property damage, and potential harm & to bystanders. Additionally, counseled it is not pope to begin, restart, or continue smoking given the underlying pulmonary disease that led to the point of requiring O2. -Recommendations: SpO2 87% on 3L/min with activity. Can increase O2 flow to 4L/min activity for now (no evidence of hypercapnic respiratory failure). Explained at 4L/min, the POC battery will be taxed - any increase in flow she will need to convert over to continuous. She may participate in cardiac rehab to keep SpO2 @ 89% or greater. 3. M ultiple pulmonary nodules Notes: Unchanged nodule 04/18/2024 as far back as 01/20/2023. 4. H istory of non-ST elevation myocardial infarction (NSTEMI) Notes: 09/03/2024: NSTEMI type 2 secondary to pneumonia Now has reduced EF @ 44%. Restart cardiac rehab, F/U with [facility] Cardiology. 5. H istory of tobacco abuse Notes: 1ppd x 50 years, quit 2017 LDCT 01/24/2024 - RADS-2. LDCT due 12/2024. 6. L joseph term (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 of systemic steroids Notes: Discussed adverse effects of mcc systemic steroids including, but not limited to: increased risk of cataracts, elevated blood sugars/worsening of underlying diabetes mellitus, impaired wound healing, gastrointestinal ulcers, osteoporosis. 7. L joseph term (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 of inhaled steroids Notes: Patient was counseled to rinse & gargle with water after inhaled corticosteroid use. ? 8. O besity, unspecified Notes: Patient's weight is [...] Spirometry -FEV1/FVC: 59% -FEV1: 47% -FVC: 64% -ZVE14-29%: 25% -Flow-volume loop: Moderately-severe obstruction -No bronchodilator response 07/20/2018-Spirometry -FEV1/FVC: 63% -FEV1: 51% -FVC: 62% -YYD51-19%: 31% -Flow-volume loop: Moderate obstruction 07/20/2017-Spirometry -FEV1/FVC: 69% -FEV1: 55% -FVC: 68% -XWQ06-92%: 31% -Flow-volume loop: Moderate obstruction. * Procedure [...] tobacco use and urged to quit. 0 09/12/2024 Former Education on smoking effects provided?09/12/2024 Former F DELMER EXCLUSION Reason: P atient Reason refused/declined Type of Patient Reason: D rug declined by patient B WI ACTION PLAN Above Normal BMI Follow-up D ietary management education, guidance, and counseling * Follow Up: 4 Months (Reason: COPD, O2) * * Sign off status: Completed Visit Status: C HK (Check Out) true * Provider: Tam Coughlin DO Date: 0 09/12/2024 Generated for Merly gonzalez/Brandin/Dana on: 0 10/03/2024 11:46 AM EDT History and Physical Notes * HPI (History of Present Illness) Category Sub-Category Detail Notes Category Not es General Patient present s for a hospital follow up after a recent admission on 09/03/2024 at [facility]. Patient was discharged home on 3L O2. DME:HCS. Patient complains of SOB, Cough & wheezing. Patient is currently on Trelegy,Dupixent and Prednsione daily. Patient reports her last Dupixent was two weeks ago and is due tomorrow at home. Patient is under the care of [facility] Cardiology. Examination Category Sub-Category Detail Notes Category Not es Exam GENERAL APPEARANCE: In no respir atory distress. Seems tired today Skin Normal Eyes Ears Nose Wearing nasal cannul a Mouth Success and moist. No c andidiasis Trachea Midline Chest Increased A-P Diamet er Respiratory Normal Movements, Ef fort Normal Auscultation Diminished breath so unds, otherwise clear to auscultation Cardiac Regular rate and rhy thm Gastrointestinal Mild central adiposi ty Vascular No edema Musculoskeletal Normal posture Neurological Focal, intact Psychiatric Alert and oriented x 3 Mentation/Cognition Normal Oropharynx Mallampati Class III
--- OUTSIDE RECORDS SUMMARY | 2024-09-22 12:50 | XMS_ITS ---
Author Name Auto Generated Organization OHIP Support Name Relationship Address Phone ONEAL DUMAS Next of Kin Unknown [phone] ADÁN EDUARDO Next of Kin Unknown [phone] SITA EDUARDO Next of Kin Unknown [phone] AUGUST HENLEY Next of Kin Unknown + ONEAL DUMAS Next of Kin [place], [place] [phone] VENICE EDUARDO Next of Kin [address] [address] + [phone] EDUARDOSITA CHAVEZ Next of Kin [address] [facility] [place] [address] + AUGUST EDUARDO Next of Kin [address] [address] + ONEAL DUMAS Next of Kin Unknown [phone] ADÁN EDUARDO Next of Kin Unknown [phone] SITA EDUARDO Next of Kin Unknown [phone] AUGUST HENLEY Next of Kin Unknown + ONEAL DUMAS Next of Kin Unknown [phone] ADÁN EDUARDO Next of Kin Unknown [phone] SITA EDUARDO Next of Kin Unknown [phone] AUGUST HENLEY Next of Kin Unknown + ONEAL DUMAS Next of Kin Unknown [phone] ADÁN EDUARDO Next of Kin Unknown [phone] SITA EDUARDO Next of Kin Unknown [phone] AUGUST HENLEY Next of Kin Unknown + ONEAL DUMAS Next of Kin Unknown [phone] EDUARDO, ADÁN Next of Kin Unknown [phone] EDUARDO, SITA Next of Kin Unknown [phone] LORY, AUGUST Next of Kin Unknown + GILBERT, ONEAL Next of Kin Unknown [phone] EDUARDO, ADÁN Next of Kin Unknown [phone] EDUARDO, SITA Next of Kin Unknown [phone] LORY, AUGUST Next of Kin Unknown + GILBERT, ONEAL Next of Kin Unknown [phone] EDUARDO, ADÁN Next of Kin Unknown [phone] EDUARDO, SITA Next of Kin Unknown [phone] LORY, AUGUST Next of Kin Unknown + Eduardo, Don Next of Kin [address] [place] [address], [place] [address] + Eduardo, Don Next of Kin [address] [place] [address], [place] [address] + GILBERT, ONEAL Next of Kin Unknown [phone] EDUARDO, ADÁN Next of Kin Unknown [phone] EDUARDO, SITA Next of Kin Unknown [phone] LORY, AUGUST Next of Kin Unknown + GILBERT, ONEAL Next of Kin Unknown [phone] EDUARDO, ADÁN Next of Kin Unknown [phone] EDUARDO, SITA Next of Kin Unknown [phone] LORY, AUGUST Next of Kin Unknown + GILBERT, ONEAL Next of Kin Unknown [phone] EDUARDO, ADÁN Next of Kin Unknown [phone] EDUARDO, SITA Next of Kin Unknown [phone] LORY, AUGUST Next of Kin Unknown + GILBERT, ONEAL Next of Kin [place] [phone] EDUARDO, DON Next of Kin [address] [place] [address], [place] [address] + [phone] EDUARDO, SITA Next of Kin [address] [place] [address] + EDUARDO, [place] [address] + GILBERT, ONEAL Next of Kin Unknown [phone] EDUARDO, ADÁN Next of Kin Unknown [phone] EDUARDO, SITA Next of Kin Unknown [phone] LORY, AUGUST Next of Kin Unknown + GILBERT, ONEAL Next of Kin [place] [phone] EDUARDO, DON Next of Kin [address] [place] [address], [place] [address] + [phone] EDUARDO, SITA Next of Kin [address] [place] [address] + EDUARDO, [place]UGUST [place] [address] + GILBERT, ONEAL Next of Kin [place] [phone] EDUARDO, DON Next of Kin [address] [place] [address], [place] [address] + [phone] EDUARDO, SITA Next of Kin [address] [place] [address] + EDUARDO, [place]UST [place] [address] + EDUARDO, DON Next of Kin [address] [place] [address], [place] [address] + [phone] GILJULIANE, ONEAL Next of Kin Unknown [phone] EDUARDO, ADÁN Next of Kin Unknown [phone] EDUARDO, SITA Next of Kin Unknown [phone] LORY, AUGUST Next of Kin Unknown + Eduardo, Don Next of Kin [address] [place] [address] + GILBERT, ONEAL Next of Kin Unknown [phone] EDUARDO, ADÁN Next of Kin Unknown [phone] SITA EDUARDO Next of Kin Unknown [phone] AUGUST HENLEY Next of Kin Unknown + Care Team 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 Name Role Phone HORANI, KIRSTEN Referring Unavailable ELTAHAWY, EHAB Attending Unavailable ELTAHAWY, EHAB Attending Unavailable ROSENDO MUSTAFA Attending Unavailable ELTAHAWY, EHAB Referring Unavailable ROSENDO MUSTAFA Attending Unavailable ROSENDO MUSTAFA Attending Unavailable ZACK LUU Attending Unavailable HORANI, KIRSTEN Referring Unavailable HORANI, KIRSTEN Referring Unavailable ELTAHAWY, EHAB Admitting Unavailable ELTAHAWY, JOSELUISAB Attending Unavailable KATKOGRISELDA Referring Unavailable HORANI, KIRSTEN Admitting Unavailable KERRIRHEA Jovel Attending Unavailable HORANI, KIRSTEN Referring Unavailable CHENG, BRITTANY Attending Unavailabl e CHENG, SHANDA Attending Unavailabl e CHENG, SHANDA Attending Unavailabl e AICHHOLZ, NOLVIA Attending Unavailable AICHHOLZ, NOLVIA Attending Unavailable Aichholsaloni, Nolvia J Attending Unavailable Sachahtoby, Nolvia J Admitting Unavailable Shanda Cheng Primary Care Unavaila ble Bakhous, Aziz Admitting Unavailable Bakhous Aziz Attending Unavailable Bakhous, Aziz Referring Unavailable PROBLEMS DATE TYPE CONDITION / CODE ATTENDING STATUS [facility] 07/08/2022 Admitting Diagnosis Shortness of breath / R06.02(ICD-10) ZACK LUU Active [facility] 09/22/2024 Admitting Diagnosis Chronic systolic (congestive) heart failure / I50.22(ICD-10) ZACK LUU Active [facility] 09/22/2024 Admitting Diagnosis Localized edema / R60.0(ICD-10) ZACK LUU Active [facility] 09/22/2024 Admitting Diagnosis Chronic diastolic (congestive) heart failure / I50.32(ICD-10) ZACK LUU Active [facility] 09/03/2024 Admitting Diagnosis Chronic obstructive pulmonary disease, unspecified / J44.9(ICD-10) RHEA LIVINGSTON Active [facility] 09/03/2024 Admitting Diagnosis Pneumonia, unspecified organism / J18.9(ICD-10) RHEA LIVINGSTON [facility] 09/03/2024 Admitting Diagnosis Non-ST elevation (NSTEMI) myocardial infarction / I21.4(ICD-10) JUSTUS LIVINGSTONMarco [facility] 11/17/2022 Admitting Diagnosis Other ventricular tachycardia / I47.29(ICD-10) [facility] 10/27/2022 Admitting Diagnosis Essential (primary) hypertension / I10(ICD-10) [facility] 10/27/2022 Admitting Diagnosis Atherosclerotic heart disease of [place] coronary artery without angina pectoris / I25.10(ICD-10) [facility] 06/15/2024 Admitting Diagnosis Unstable angina / I20.0(ICD-10) [facility] 10/30/2022 Admitting Diagnosis Other chest pain / R07.89(ICD-10) [facility] 10/26/2022 Admitting Diagnosis Unspecified atrial flutter / I48.92(ICD-10) [facility] 12/31/2022 Admitting Diagnosis Ventricular premature depolarization / I49.3(ICD-10) [facility] 10/30/2022 Admitting Diagnosis Chest pain, unspecified / R07.9(ICD-10) [facility] 10/27/2022 Admitting Diagnosis Mixed hyperlipidemia / E78.2(ICD-10) [facility] 10/26/2022 Admitting Diagnosis Cardiac arrhythmia, unspecified / I49.9(ICD-10) ROSENDO MUSTAFA [facility] 12/20/2023 Unknown Chronic kidney disease, stage 3b / N18.32(ICD-10) Jackelyn Diggs [facility] 10/12/2023 Admitting Diagnosis Hypertensive heart disease with heart failure / I11.0(ICD-10) ROSENDO MUSTAFA Active [facility] PROCEDURES No Procedure Records Found RESULTS 36 Observed: 10/03/2024 2:36 PM Status: COMPLETED Source: [facility] Spoke with patient and made her aware to stop spironolactone per Dr. Ward. She verbalized understanding and will do so. She will have repeat BMP on Wednesday, 10/09. Order faxed to [facility]. 36 Observed: 10/03/2024 1:36 PM Status: COMPLETED Source: [facility] Regarding lab results from : MD Milli Luevano MA; Zack Luu CNP Her s.cr is 2.0! Whatever was started (Farxiga?) needs to be stopped and BMP repeated in 5 days. Please have her report any abnormal symptoms (difficulty urinating, dysuria, flank pain etc....) Thanks I see Zack saw her on 09/22/2024 and started her on spironolactone. Would you like her to stop both that and Farxiga? TELEPHONE Observed: 10/03/2024 12:00 AM Status: COMPLETED Source: [facility] [id number] Chiara Eduardo 0 1955 F Date Provider Department Center 10/03/2024 [id number]-MILLI GARCIA [facility] [place] [facility] Family History Problem Relation Age of Onset Stroke Mother Kidney disease Father Coronary artery disease Paternal Grandfather Family Status - Relation Status Age at Mother Father Paternal Grandfather PROGRESS Observed: 09/22/2024 3:00 PM Status: COMPLETED Source: [facility] SUBJECTIVE Reason for Visit: Chiara Eduardo is a 69 y.o. year old female patient being seen for follow-up hospital visit, NSTEMI. HPI: Chiara Eduardo is a 69 y.o. year old female with significant medical history coronary artery disease, prior stent placement, COPD, History of acute inferior wall WI, HT, HLP, CKD, obesity Recent hospital course early August 2024: She was admitted in early August this year (2024) with diagnosis of NSTEMI, a flutter, pneumonia, COPD. Presented with shortness of breath and was found to be in acute hypoxemic respiratory failure secondary to right lower lobe pneumonia and COPD exacerbation. Influenza AMB as well as COVID-19 negative. Legionella antigen urine also negative. Mycoplasma pneumonia PCR pending. Patient started on Rocephin and Zithromax well as IV steroids and did fairly well. Patient had home O2 eval she did qualify for 3 L nasal cannula while walking. Patient to continue cefpodoxime and Zithromax until 09/06 Patient had mild troponin elevation felt to be related to type II WI. Of note patient had cardiac cath in May 2024 with patent stent to the RCA. Echo was done and showed EF 44% and patient's goal-directed therapy medications were adjusted until follow-up appointment end of this month 09/22/2024 office visit: Patient seen evaluated in the office today. Currently using 3 to 4 L nasal cannula. She reports that her SOB is slightly worse than her usual baseline. She reports she can walk about 15 feet before needing to take a break.Otherwise, she denies chest pain, palpitations, lightheadedness or dizziness. On exam she has +1-2 LE edema. 08/01/2024 office visit (Dr. Ward): Doing well; no new symptoms. No chest pain. Shortness of breath is stable if not better. She did stop the Farxiga; her labs were slightly abnormal. She has been following up with her primary care provider. Also follows up with pulmonology. Medical History[1] Surgical History[2] Problem List[3] family history includes Coronary artery disease in her paternal grandfather; Kidney disease in her father; Stroke in her mother. Social History[4] OBJECTIVE Visit Vitals OB Status Postmenopausal Smoking Status Former Physical Exam Constitutional: General Appearance: well-developed, appears stated age. Level of Distress: no acute distress. Neck: Jugular Veins: normal jugular venous pressure. Lungs: Auscultation: no rales or rhonchi and normal breath sounds. Cardiovascular: Rate And Rhythm: regular Heart Sounds: normal S1 and s2; Systolic Murmur: not heard. Diastolic Murmur: not heard. Extremities: +1-2 LE edema Peripheral Pulses: Pulses: full and equal in all extremities except if noted. Abdomen: Inspection and Palpation: non distended or tender and soft. Musculoskeletal: Inspection: no joint tenderness or swelling. Neurologic: Gait: normal gait. Psychiatric: Mental Status: alert and normal affect. Skin: Inspection and Palpation: warm and dry. Allergies: Allergies[5] Outpatient Medications: Current Outpatient Medications Medication Instructions albuterol 90 mcg/actuation inhaler 2 puffs, inhalation, Every 4 hours PRN aspirin 81 mg, oral, Daily atorvastatin (LIPITOR) 80 mg, oral, Daily aysdxtuanq-qyalphxn-tpiudmqxxx (Breztri Aerosphere) 160-9-4.8 mcg/actuation HFA aerosol inhaler 160 mcg, inhalation, Daily cholecalciferol (VITAMIN D-3) 2,000 Units, oral, Daily cyclobenzaprine (FLEXERIL) 10 mg, oral, 3 times daily PRN dapagliflozin propanediol (FARXIGA) 10 mg, oral, Daily Dupixent Syringe 300 mg, subcutaneous, Every 14 days furosemide (LASIX) 20 mg, oral, Daily ipratropium-albuteroL (Duo-Neb) 0.5-2.5 mg/3 mL nebulizer solution 3 mL, nebulization, 4 times daily isosorbide mononitrate ER (IMDUR) 60 mg, oral, Once Daily, Do not crush or chew. magnesium 200 mg tablet 1 tablet, oral, Daily metoprolol succinate XL (TOPROL-XL) 50 mg, oral, 2 times daily, Do not crush or chew. nitroglycerin (NITROSTAT) 0.4 mg, sublingual, Every 5 min PRN olmesartan (BENICAR) 40 mg, oral, Once Daily omeprazole (PRILOSEC) 20 mg, oral, Daily before breakfast predniSONE (DELTASONE) 10 mg, oral, Daily Recent Labs: Admission on 09/03/2024, Discharged on 09/05/2024 Component Date Value Sodium 09/03/2024 134 (L) Potassium 09/03/2024 4.8 Chloride 09/03/2024 103 CO2 09/03/2024 25 Anion Gap 09/03/2024 11 BUN 09/03/2024 29 (H) Creatinine 09/03/2024 1.48 (H) BUN/Creatinine Ratio 09/03/2024 19.6 Glucose 09/03/2024 130 (H) Calcium 09/03/2024 8.3 (L) AST 09/03/2024 25 ALT (SGPT) 09/03/2024 19 Alkaline Phosphatase 09/03/2024 54 Total Protein 09/03/2024 6.0 Albumin 09/03/2024 3.6 Total Bilirubin 09/03/2024 0.4 eGFR 09/03/2024 37.6 (L) Magnesium 09/03/2024 1.8 (L) Lactate 09/03/2024 1.6 High Sensitivity Troponi* 09/03/2024 1,891 (HH) BNP 09/03/2024 708 (H) Ventricular Rate 09/03/2024 90 Atrial Rate 09/03/2024 90 ME Interval 09/03/2024 140 QRS DURATION 09/03/2024 76 QT Interval 09/03/2024 368 QTC CALCULATION(BAZETT) 09/03/2024 450 P Printer 09/03/2024 70 R-Printer 09/03/2024 42 T Wave Printer 09/03/2024 51 Auto WBC 09/03/2024 19.92 (H) RBC 09/03/2024 3.95 Hemoglobin 09/03/2024 12.3 Hematocrit 09/03/2024 38.3 MCV 09/03/2024 97.0 MCH 09/03/2024 31.1 MCHC 09/03/2024 32.1 RDW 09/03/2024 13.8 Neutrophils % 09/03/2024 93.3 (H) Lymphocytes % 09/03/2024 1.4 (L) Monocytes % 09/03/2024 3.4 (L) Eosinophils % 09/03/2024 1.2 Basophils % 09/03/2024 0.2 Neutrophils Absolute 09/03/2024 18.60 (H) Lymphocytes Absolute 09/03/2024 0.28 (L) Monocytes Absolute 09/03/2024 0.67 Eosinophils Absolute 09/03/2024 0.24 Basophils Absolute 09/03/2024 0.03 Platelets 09/03/2024 272 nRBC % 09/03/2024 0.0 Immature Granulocytes % 09/03/2024 0.5 Immature Granulocytes Ab* 09/03/2024 0.10 pH, Arterial 09/04/2024 7.36 pCO2, Arterial 09/04/2024 42 pO2, Arterial 09/04/2024 92 HCO3, Arterial 09/04/2024 23.7 Calcium, Ion 09/04/2024 1.20 O2 Sat, Arterial 09/04/2024 97.9 Base Excess, Arterial 09/04/2024 -1.8 Source Of Oxygen 09/04/2024 High flow nasal cannula FiO2 09/04/2024 40 Anti-Xa (Heparin) 09/04/2024 >1.00 (HH) aPTT 09/03/2024 49.3 (H) Gram Stain Result 09/03/2024 10-25 Squamous Epithelial Cells Per Low Power Field Gram Stain Result 09/03/2024 >25 Polys Per Low Power Field Gram Stain Result 09/03/2024 Few Gram positive cocci in pairs Extra Tube 09/03/2024 Hold for add-ons. Extra Tube 09/03/2024 Hold for add-ons. High Sensitivity Troponi* 09/03/2024 1,746 (HH) High Sensitivity Troponi* 09/03/2024 1,478 (HH) High Sensitivity Troponi* 09/04/2024 1,053 (HH) Ventricular Rate 09/03/2024 93 Atrial Rate 09/03/2024 93 ME Interval 09/03/2024 138 QRS DURATION 09/03/2024 76 QT Interval 09/03/2024 354 QTC CALCULATION(BAZETT) 09/03/2024 440 P Printer 09/03/2024 69 R-Printer 09/03/2024 35 T Wave Printer 09/03/2024 45 Triglycerides 09/03/2024 44 Cholesterol 09/03/2024 125 LDL Calculated 09/03/2024 46 HDL 09/03/2024 70 Non HDL Cholesterol 09/03/2024 55 Total VLDL-C 09/03/2024 9 Cholesterol/HDL Ratio 09/03/2024 1.8 Hemoglobin A1C 09/03/2024 6.6 (H) Estimated Average Glucose 09/03/2024 143 Lipoprotein (a) 09/03/2024 33 (H) Auto WBC 09/04/2024 19.91 (H) RBC 09/04/2024 3.31 (L) Hemoglobin 09/04/2024 10.4 (L) Hematocrit 09/04/2024 32.0 (L) MCV 09/04/2024 96.7 MCH 09/04/2024 31.4 MCHC 09/04/2024 32.5 RDW 09/04/2024 14.0 Platelets 09/04/2024 227 Anti-Xa (Heparin) 09/04/2024 0.61 Anti-Xa (Heparin) 09/04/2024 <0.10 (LL) Magnesium 09/04/2024 1.8 (L) Sodium 09/04/2024 133 (L) Potassium 09/04/2024 4.5 Chloride 09/04/2024 105 CO2 09/04/2024 23 BUN 09/04/2024 24 Creatinine 09/04/2024 1.21 (H) Glucose 09/04/2024 113 (H) Calcium 09/04/2024 7.7 (L) Anion Gap 09/04/2024 10 eGFR 09/04/2024 47.9 (L) BUN/Creatinine Ratio 09/04/2024 19.8 SARS-CoV-2 PCR 09/04/2024 Negative Rapid Influenza A PCR 09/04/2024 Negative Rapid Influenza B PCR 09/04/2024 Negative Mycoplasma Pneumoniae So* 09/04/2024 Not Provided Mycoplasma pneumo by PCR 09/04/2024 Not Detected Legionella Antigen, Urine 09/04/2024 NEGATIVE Blood Culture 09/04/2024 No growth at 5 days Blood Culture 09/04/2024 No growth at 5 days Sed Rate 09/04/2024 21 CRP, HIGH SENSITIVITY 09/04/2024 >300.0 (H) Sodium 09/05/2024 134 (L) Potassium 09/05/2024 4.2 Chloride 09/05/2024 105 CO2 09/05/2024 24 BUN 09/05/2024 26 (H) Creatinine 09/05/2024 1.24 (H) Glucose 09/05/2024 92 Calcium 09/05/2024 8.1 (L) Anion Gap 09/05/2024 9 eGFR 09/05/2024 46.5 (L) BUN/Creatinine Ratio 09/05/2024 21.0 Auto WBC 09/05/2024 17.69 (H) RBC 09/05/2024 3.31 (L) Hemoglobin 09/05/2024 10.2 (L) Hematocrit 09/05/2024 31.9 (L) MCV 09/05/2024 96.4 MCH 09/05/2024 30.8 MCHC 09/05/2024 32.0 RDW 09/05/2024 14.0 Platelets 09/05/2024 247 I have personally reviewed and anaylzed the following laboratory results above. These findings have been analyzed in the context of the patient's clinical presentation. Cardiovascular Diagnostic Studies: TTE (limited) 09/04/2024: Left Ventricle: The left ventricle is normal size. Global left ventricular systolic function is mildly reduced. The calculated Biplane EF is 44 %. Left ventricular wall thickness is normal. The septum is abnormal in its motion. Right Ventricle: The right ventricle appears normal in size. Right ventricular systolic function appears normal. Doppler studies suggest normal right sided pressures. Left Atrium: The left atrium appears normal in size. Overall Conclusions: Due to suboptimal imaging Lumason contrast was administered for opacification and better delineation of endocardial borders. TTE 10/27/2022: Left Ventricle: The left ventricle is normal size. Global left ventricular systolic function is at lower limits of normal. The EF is 50 % visually. Left ventricular wall thickness is normal. Unable to assess segmental wall motion abnormalities due to poor sound transmission. Unable to assess diastolic dysfunction. Right Ventricle: The right ventricle appears normal in size. Right ventricular systolic function appears normal. Doppler studies suggest normal right sided pressures. Left Atrium: The left atrium is normal in size. Overall Conclusions: No significant valvular abnormalities Given poor endocardial definition and rhythm abnormalities (frequent PVCs and bigeminy) the EF is difficult to estimate. Recommend repeating the study using echo contrast. Cardiovascular Laboratory Report 07/03/2024: FINAL IMPRESSIONS: Patent stents in the right [...] of breath namely pulmonary Follow-up with Dr. Ward in the next [...] internal jugular vein was obtained. A 6 [place] 11 cm sheath was inserted without difficulty. [...] left radial artery was obtained. A 6 [place] glide sheath was inserted without difficulty. Bilateral [...] holding area in stable condition. FINDINGS: Hemodynamics: RA8 RV 38/11, 19 PA 38/10 [27] PCWP [...] angina Coronary Findings Diagnostic Dominance: Right Left Anterior Descending Left Circumflex There is mild diffuse disease throughout the vessel. Right Coronary Artery Intervention No interventions have been documented. 12 Lead ECG: Encounter Date: 09/03/24 ECG 12 lead Result Value Ventricular Rate 93 Atrial Rate 93 ME Interval 138 QRS DURATION 76 QT Interval 354 QTC CALCULATION(BAZETT) 440 P Printer 69 R-Printer 35 T Wave Printer 45 Impression Sinus rhythm with frequent Premature ventricular complexes Low voltage QRS Borderline ECG When compared with ECG of 03-SEP-2024 16:56, No significant change was found Confirmed by Jamie Estevez ([id number]) on 09/03/2024 6:41:10 PM I have personally reviewed and analyzed all available cardiac diagnostic tests and imaging reports. Findings have been analyzed in the context of the patient's clinical status. Assessment and Plan #HFmrEF #Bilateral extremity edema NYHA II (COPD overlap) Euvolemic Compensated +1-2 LE edema Weight today is 196 pounds Most recent TTE 09/04/2024: EF 44% 10/27/2022: EF 50% Most recent labs reviewed, 09/05/2024: Sodium 134, potassium 4.2, BUN 26, creatinine 1.24, glucose 92, calcium 8.1, EGFR 46.5 Hemoglobin 10.2 [facility] 07/03/2024: RHC shows mildly elevated right-sided and wedge pressures consistent with biventricular congestion; normal cardiac output/index and TPG, suggestive of postcapillary (pulmonary venous) hypertension. GDMT: - Continue Farxiga 10 mg daily - Continue furosemide 20 mg daily ---> consider increasing next visit if lower extremity edema is worse with the addition of spironolactone - Continue metoprolol succinate 50 mg daily - Continue olmesartan 40 mg daily - Consider ARNI switch from olmesartan to sacubitril/valsartan if BP permits - Will add MRA - spironolactone 25 mg daily ---> BMP in one week #CAD Denies chest pain History of acute inferior wall [place] Cardiac catheterization 07/03/2024: Patent RCA stents with mild in-stent restenosis; moderate LCx disease; mild to moderate LAD disease. Of note, has allergy to clopidogrel - Continue aspirin 81 mg daily - Continue isosorbide mononitrate ER 60 mg daily - Continue metoprolol succinate 50 mg daily #Shortness of breath Likely multifactorial including COPD, obesity, and an element of HFmrEF #Nonsustained ventricular tachycardia Nonsustained ventricular tachycardia induced by PVCs #Hypertension BP today is 144/76, heart rate 77 Elevated - Continue olmesartan 40 mg daily - Will add MRA - spironolactone 25 mg daily ---> BMP in one week #COPD Currently on 2 L nasal cannula, at baseline On albuterol and duoneb inhaler #Hyperlipidemia Most recent lipid panel reviewed, 09/03/2024: LDL 46, HDL 70, triglycerides 44, total cholesterol 125 Stable - Continue atorvastatin 80 mg daily #CKD Most recent labs reviewed, 09/05/2024: Sodium 134, potassium 4.2, BUN 26, creatinine 1.24, glucose 92, calcium 8.1, EGFR 46.5 Hemoglobin 10.2 Plan Overview: We will add spironolactone 25 mg daily for HFmrEF and concomitant hypertension BMP in 1 week Follow-up in 2 months No follow-ups on file. Zack Luu, [facility] Cardiovascular Medicine [1] Past Medical History: Diagnosis Date Abnormal ECG Chronic GERD 12/28/2016 Chronic kidney disease COPD (chronic obstructive pulmonary disease) ([facility]) Coronary artery disease Coronary artery disease involving [place] coronary artery of [place] heart without angina pectoris 12/28/2016 Essential hypertension 12/14/2016 Hyperlipidemia Lower back pain 12/28/2016 Mixed hyperlipidemia 12/14/2016 Shortness of breath 12/28/2016 [2] Past Surgical History: Procedure Laterality Date CARDIAC CATHETERIZATION CHOLECYSTECTOMY CORONARY STENT PLACEMENT HYSTERECTOMY [3] Patient Active Problem List Diagnosis Bladder prolapse, female, acquired Chronic GERD COPD (chronic obstructive pulmonary disease) (CMS/HCC) Coronary artery disease involving [place] coronary artery of [place] heart without angina pectoris Diuretic-induced hypokalemia Essential hypertension Former smoker Health care maintenance History of acute inferior wall [place] Lower back pain Mixed hyperlipidemia Severe obesity (BMI 35.0-39.9) with comorbidity ([facility]/HCC) Shortness of breath Chest pain Arrhythmia Anemia Hypomagnesemia Hyponatremia Non-sustained ventricular tachycardia ([facility]/HCC) History of tobacco use 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 PVC (premature ventricular contraction) Multiple pulmonary nodules Irregular heartbeat Stage 3a chronic kidney disease ([facility]) Body mass index (BMI) 35.0-35.9, adult Angina pectoris, unstable ([facility]) CRP elevated Elevated WBC count NSTEMI (non-ST elevated myocardial infarction) ([facility]) Pneumonia Acute hypoxic respiratory failure ([facility]) Elevated troponin [4] Social History Tobacco Use Smoking status: Former Types: Cigarettes Smokeless tobacco: Never Substance Use Topics Alcohol use: Yes Comment: occaisonal Drug use: Never [5] Allergies Allergen Reactions Clopidogrel Hydrochlorothiazide Exfoliative Dermatitis Penicillins Sodium Chloride Sulfa (Sulfonamide Antibiotics) Unknown Vancomycin PROGRESS Observed: 09/22/2024 1:00 PM Status: COMPLETED Source: [facility] Patient is here today for a follow up. Patient states she is doing ok. Review of Systems Constitutional: Negative. FOLLOW-UP Observed: 09/22/2024 1:00 PM Status: COMPLETED Source: [facility] [id number] Chiara Eduardo 0 1955 F Date Provider Department [place] 09/22/2024 [id number], ADAM JUSTIN [facility] Family History Problem Relation Age of Onset Stroke Mother Kidney disease Father Coronary artery disease Paternal Grandfather Family Status - Relation Status Age at Mother Father Paternal Grandfather Level of Service:[id number] ME OFFICE/OUTPATIENT ESTABLISHED MOD MDM 30 MIN 30 Observed: 09/05/2024 1:07 PM Status: COMPLETED Source: [facility] The patient is Moderately St able - Low risk of patient condition declining or worsening The patient's goals for the shift include comfort The clinical goals for the shift include stable vitals, safety Patient is adequate for discharge. Problem: Safety - Adult Goal: Free from fall injury Outcome: Adequate for DischargeProblem: Discharge Planning Goal: Discharge to home or other facility with appropriate resources Outcome: Adequate for DischargeProblem: Chronic Conditions and Co-morbidities Goal: Patient's chronic conditions and co-morbidity symptoms are monitored and maintained or improved Outcome: Adequate for DischargeProblem: Respiratory - Adult Goal: Achieves optimal ventilation and oxygenation Outcome: Adequate for DischargeProblem: Cardiovascular - Adult Goal: Maintains optimal cardiac output and hemodynamic stability Outcome: Adequate for DischargeProblem: Skin/Tissue Integrity - Adult Goal: Skin integrity remains intact Outcome: Adequate for DischargeProblem: Pain - Adult Goal: Verbalizes/displays adequate comfort level or baseline comfort level Outcome: Adequate for Discharge DS Observed: 09/05/2024 10:58 AM Status: COMPLETED Source: [facility] Hospital Medicine Discharge Summary Final Discharge Diagnosis: 1. Acute hypoxemic respiratory failure secondary to COPD exacerbation as well as right lower lobe pneumonia 2. Drop in EF to 44% compared to stress test in 2022 reported normal ejection fraction 3. Elevated troponins likely type II [place] Admission Diagnosis: NSTEMI (non-ST elevated myocardial infarction) ([facility]) [I21.4] Hospital course: Chiara Eduardo is a 69 y.o. female with a history of coronary artery disease, prior stent placement, COPD, History of acute inferior wall [place], HT, HLP, CKD, obesity presented with shortness of breath and was found to be in acute hypoxemic respiratory failure secondary to right lower lobe pneumonia and COPD exacerbation. Influenza AMB as well as COVID-19 negative. Legionella antigen urine also negative. Mycoplasma pneumonia PCR was still pending Patient started on Rocephin and Zithromax well as IV steroids and did fairly well. Patient had home O2 eval she did qualify for 3 L nasal cannula while walking. Patient to continue cefpodoxime and Zithromax until 09/06 Patient had mild troponin elevation felt to be related to type II [place]. Of note patient had cardiac cath in May 2024 with patent stent to the RCA. Echo was done and showed EF 44% and patient's goal-directed therapy medications were adjusted until follow-up appointment end of this month Patient also discharged to follow-up with PCP in 5 to 7 days if possible Surgical, Invasive or Diagnostic Procedures Done During Admission: None Consultations During Admission: Cardiology Dear MD Tony, Chiara is advised to follow up with you within 1-2 weeks. Items to follow up in ambulatory setting: None Follow-up with: Cardiology/PCP Scheduled appointments: Future Appointments Date Time Provider Department Center 09/22/2024 3:20 PM Zack Luu CNP [facility] Your medication list START taking these medications Instructions Last Dose Given Next Dose Due azithromycin 500 mg tablet Commonly known as: Zithromax Take 1 tablet (500 mg) by mouth 1 (one) time each day at the same time for 1 dose. cefpodoxime 200 mg tablet Commonly known as: Vantin Take 1 tablet (200 mg) by mouth two times daily for 5 days. nitroglycerin 0.4 mg SL tablet Commonly known as: Nitrostat Place 1 tablet (0.4 mg) under the tongue every 5 (five) minutes if needed for chest pain. CHANGE how you take these medications Instructions Last Dose Given Next Dose Due furosemide 20 mg tablet Commonly known as: Lasix What changed: when to take this Take 1 tablet (20 mg) by mouth in the morning. CONTINUE taking these medications Instructions Last Dose Given Next Dose Due albuterol 90 mcg/actuation inhaler aspirin 81 mg EC tablet atorvastatin 80 mg tablet Commonly known as: Lipitor Take 1 tablet (80 mg) by mouth in the morning. Breztri Aerosphere 160-9-4.8 mcg/actuation HFA aerosol inhaler Generic drug: kowvzpkjuu-ivrdomrc-malitpkhvj cholecalciferol 50 MCG (2000 UT) tablet Commonly known as: Vitamin D-3 cyclobenzaprine 10 mg tablet Commonly known as: Flexeril dapagliflozin propanediol 10 mg Commonly known as: Farxiga Take 1 tablet (10 mg) by mouth in the morning. Dupixent Syringe 100 mg/0.67 mL syringe Generic drug: dupilumab ipratropium-albuteroL 0.5-2.5 mg/3 mL nebulizer solution Commonly known as: Duo-Neb isosorbide mononitrate ER 60 mg 24 hr tablet Commonly known as: Imdur Take 1 tablet (60 mg) by mouth once daily as directed. Do not crush or chew. magnesium 200 mg tablet metoprolol succinate XL 50 mg 24 hr tablet Commonly known as: Toprol-XL Take 1 tablet (50 mg) by mouth two times daily. Do not crush or chew. olmesartan 40 mg tablet Commonly known as: BENIcar Take 1 tablet (40 mg) by mouth once daily as directed. omeprazole [address] capsule Commonly known as: PriLOSEC predniSONE 10 mg tablet Commonly known as: Deltasone Where to Get Your Medications These medications were sent to [facility] - [place], [place] - [address] [place] [address] [place] [address], [facility] [address] azithromycin 500 mg tablet cefpodoxime 200 mg tablet furosemide 20 mg tablet metoprolol succinate XL 50 mg 24 hr tablet nitroglycerin 0.4 mg SL tablet Chiara is allergic to clopidogrel, hydrochlorothiazide, penicillins, sodium chloride, sulfa (sulfonamide antibiotics), and vancomycin. Disposition: Home or Self Care () Discharge Condition: Stable Code Status: Full Code Diagnostic Results Hematology: Results from last 7 days Lab Units 09/05/24 0406 09/04/24416 WBC AUTO 10*3/uL 17.69* 19.91* HEMOGLOBIN g/dL 10.2* 10.4* HEMATOCRIT % 31.9* 32.0* MCV fL 96.4 96.7 PLATELETS AUTO 10*3/uL 247 227 Chemistry: Results from last 7 days Lab Units 09/05/24 0406 09/04/247 09/03/24 1709 SODIUM mmol/L 134* 133* 134* POTASSIUM mmol/L 4.2 4.5 4.8 CHLORIDE mmol/L 105 105 103 CO2 mmol/L 24 23 25 BUN mg/dL 26* 24 29* CREATININE mg/dL 1.24* 1.21* 1.48* GLUCOSE mg/dL 92 113* 130* MAGNESIUM mg/dL -- 1.8* 1.8* CALCIUM mg/dL 8.1* 7.7* 8.3* Results from last 7 days Lab Units 09/04/2441309/03/24 1709 HCO3 ART mEq/L 23.7 -- O2 SAT ART % 97.9 -- AST U/L -- 25 ALT U/L -- 19 ALK PHOS U/L -- 54 BILIRUBIN TOTAL mg/dL -- 0.4 Test Results Pending At Discharge: Pending Labs Order Current Status High sensitivity CRP In process Lipoprotein A (LPA) In process Mycoplasma pneumoniae PCR In process Blood culture, peripheral #1 Preliminary result Blood culture, peripheral #2 Preliminary result Sputum culture Preliminary result Diet at the time of discharge: regular diet and cardiac diet Activity: Normal activity as tolerated Objective Blood pressure 142/70, pulse 95, temperature 36.1 ???C (97 ???F), temperature source Temporal, resp. rate 18, height 1.6 m (5' 3 ), weight 90.7 kg (200 lb), SpO2 96%. Cardiovascular: Rate and Rhythm: Normal rate and regular rhythm. Pulmonary: Comments: decreased breath sound bilaterally, Abdominal: General: Abdomen is flat. Palpations: Abdomen is soft. Neurological: General: No focal deficit present. Total time for discharge - review of data, exam, discussion with providers and care-team, med-rec and orders, arranging follow up, counseling of patient and/or family and documentation was 60 minutes. Signed Rhea Livingston MD [facility] 09/05/2024 10:59 AM CC: MD Tony 30 Observed: 09/05/2024 10:57 AM Status: COMPLETED Source: [facility] C D Area Supervisor went bedside and talk ed with patient about home oxygen. C D Area Supervisor asked if patient has any preference of home oxygen company. Patient stated she does not, and is agreeable to be set up with [facility]. C D Area Supervisor called and talked with with Keny from [facility], Keny Confirmed they service patients area, and take patients insurance. Keny told grant writer to fax over Clinicals and provide patient a portable tank. Clinicals gathered and faxed over at 11:25 am C D Area Supervisor received confirmation fax. C D Area Supervisor called [facility] office and talked with Brock. C D Area Supervisor inform Brock that clinicals were faxed over and confirmation fax was received. Brock stated patient is not in their system yet but will keep a look of for it and will call patient back as soon as patient gets put into their system. C D Area Supervisor provided call back number. C D Area Supervisor called and talked to Nicole from [employer], She confirmed that they have everything they need and that grant writer can give patient a portable oxygen tank to go home with, and for grant writer to instruction patient to call them when she leaves the hospital. C D Area Supervisor went bedside and provided portable oxygen tank to patient, C D Area Supervisor educated patient on portable oxygen tank and on the need to call [facility] as soon as she leave the hospital. Patient stated she understands and had no other questions at this time. C D Area Supervisor received call from [employer] asking for discharge summery to be faxed over as well. C D Area Supervisor faxed over discharge summery. C D Area Supervisor received confirmation fax. C D Area Supervisor called Jaqueline from [facility] to confirm they got discharge summery. C D Area Supervisor was told that it hasn't arrived in there system yet but it can take some time. C D Area Supervisor informed Jaqueline that patient has discharged and that patient will need equipment delivered today. Jaqueline stated they will still be able to deliver oxygen equipment today, they just need the Discharge summery as well. C D Area Supervisor provided writers call back number to Jaqueline, if they need anything else. C D Area Supervisor called and talked with Brock at [facility] who confirmed they got the discharge summery and everything is set to go for patient to get her home oxygen equipment tonight. NURSNOTE Observed: 09/05/2024 10:44 AM Status: COMPLETED Source: [facility] The findings from this face to face encounter indicate the reason this patient requires oxygen Patient is diagnosed with a chronic condition requiring the use of oxygen to maintain stability outside the hospital setting. HOME O2 EVAL REVIEWED AND PATIENT REQUIRES OXYGEN DUE TO SPO2 85% ON ROOM AIR WITH AMBULATION. Patient educated on the need of 3 liters with ambulation d/t COPD. No questions or concerns at this time. Dx:COPD 99 MONTHS PROGRESS Observed: 09/05/2024 10:19 AM Status: COMPLETED Source: [facility] 09/05/24 1018 Home Oxygen Therapy Evaluation Pulse Oximetry on room air at Rest 93 Pulse Ox on room air while walking 85 Pulse Ox on O2 with nasal cannula while walking 92 Patient Qualification for home oxygen Qualifies No oxygen required at rest 3 lpm required to keep spo2 > 90% PROGRESS Observed: 09/05/2024 9:51 AM Status: COMPLETED Source: [facility] Physical Therapy Physical Therapy Evaluation Patient Name: Chiara Eduardo : 1955 Today's Date: 09/05/2024 Start Time: 0850 Stop Time: 0912 Time Calculation (min): 22 min PT Evaluation Time Entry PT Evaluation (Low) Time Entry: 20 General Subjective: The patient was very talkative, and pleasant, and verbalized no pain complaints, however expressed her strong desire to return home [place]. Patient Summary: Chief Complaint Patient is direct admitted from [facility] with shortness of breath. History of Present Illness Chiara Eduardo is an 69 y.o. female who came from home with shortness of breath. Patient has history of COPD, quit smoking 2017, on Lasix 20 mg every other day, started having worsening shortness of breath, and acute on chronic abdominal pain last night, she presented to [facility], found to have right lower lobe pneumonia, with increasing troponin to 78.9, lactic of 3.2, patient was started on heparin drip, antibiotics, and was sent to [facility] for further workup. At time of arrival around 5 PM, patient was lying in bed, on nonrebreather, satting 100%, complaining of mild lower abdominal pain, no chest pain, cough, palpitation, or any other related symptoms. PT Diagnosis: weakness, impaiired functional mobility. Patient Active Problem List Diagnosis Bladder prolapse, female, acquired Chronic GERD COPD (chronic obstructive pulmonary disease) (CMS/HCC) Coronary artery disease involving [place] coronary artery of [place] heart without angina pectoris Diuretic-induced hypokalemia Essential hypertension Former smoker Health care maintenance History of acute inferior wall WI Lower back pain Mixed hyperlipidemia Severe obesity (BMI 35.0-39.9) with comorbidity (CMS/HCC) Shortness of breath Chest pain Arrhythmia Anemia Hypomagnesemia Hyponatremia Non-sustained ventricular tachycardia (CMS/HCC) History of tobacco use Other halfway (current) 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 PVC (premature ventricular contraction) Multiple pulmonary nodules Irregular heartbeat Stage 3a chronic kidney disease (CMS/HCC) Body mass index (BMI) 35.0-35.9, adult Angina pectoris, unstable (CMS/HCC) CRP elevated Elevated WBC count NSTEMI (non-ST elevated myocardial infarction) (CMS/HCC) Pneumonia Acute hypoxic respiratory failure (CMS/HCC) Elevated troponin Past Medical History: Diagnosis Date Abnormal ECG Chronic GERD 12/28/2016 Chronic kidney disease COPD (chronic obstructive pulmonary disease) ([facility]) Coronary artery disease Coronary artery disease involving [place] coronary artery of [place] heart without angina pectoris 12/28/2016 Essential hypertension 12/14/2016 Hyperlipidemia Lower back pain 12/28/2016 Mixed hyperlipidemia 12/14/2016 Shortness of breath 12/28/2016 Past Surgical History: Procedure Laterality Date CARDIAC CATHETERIZATION CHOLECYSTECTOMY CORONARY STENT PLACEMENT HYSTERECTOMY Precautions Precautions UE Weight Bearing Status: (No WB restrictions) LE Weight Bearing Status: (No WB restrictions) Medical Precautions: (2L/min O2) Pain Pain Assessment Pain Assessment: No/denies pain Cognition Cognition Overall Cognitive Status: Within Functional Limits Arousal/Alertness: Appropriate responses to stimuli Orientation Level: Oriented X4 Following Commands: Follows all commands and directions without difficulty Safety Judgment: Good awareness of safety precautions Attention Span: Appears intact Memory: Appears intact Communication: Intact General Assessment General Assessment Hearing: WNLs Skin Integrity: warm and dry throughout all 4 extremities distally Edema: none significant needed. Tone: (no tonal abnormalities.) Home Living Home Living Type of Home: House Lives With: Spouse Home Adaptive Equipment: Cane, Rollator Home Layout: Multi-level, Bed/bath upstairs Home Access: Stairs to enter with rails Bathroom Shower/Tub: Tub/shower unit Prior Level of Function Prior Function Level of [place]: Independent with ADLs and functional transfers Prior Functional Mobility: Independent without device History of Falls: None ADL Assistance: Independent Homemaking Assistance: Independent Vocational: Retired Vision Basic Assessment Vision - Basic Assessment Current Vision: No visual deficits Vision - Complex General Assessments Activity Tolerance Endurance: Stage IV Sensation Light Touch: No apparent deficits Proprioception Proprioception: No apparent deficits Perception Inattention/Neglect: Appears intact Initiation: Appears intact Motor Planning: Appears intact Perseveration: Not present Coordination Movements are Fluid and Coordinated: Yes Postural Control Posture Assessment: No significant postural abnormalities noted in sitting, and with standing. Head Control: WNLs Trunk Control: WNLs Static Sitting Balance Static Sitting-Balance Support: Feet supported, No upper extremity supported Static Sitting-Level of Assistance: Independent Dynamic Sitting Balance Dynamic Sitting-Balance Support: Feet supported, No upper extremity supported Dynamic Sitting-Balance: Forward lean Dynamic Sitting Balance-Level of Assistance: Independent Static Standing Balance Static Standing-Balance Support: No upper extremity supported Static Standing-Level of Assistance: Independent Dynamic Standing Balance Dynamic Standing-Balance Support: No upper extremity supported Dynamic Standing-Balance: Forward lean, Lateral lean Dynamic Standing Balance-Level of Assistance: Close supervision Functional Assessments Bed Mobility Bed Mobility: (I noted with all bed mobility skills including scooting, rolling supine to sit.) Transfers Ambulation comments: (The patient ambulated 75 ft. x 1 with no assistive device and a SBA of 1 offered for safety. No O2 was used for ambulation, and the patient's O2 sats were diminished to 85% following ambulation, however quicly returned to >95% with 2L/min O2.) Extremity Assessments RUE Assessment RUE Assessment: (BUE AROM, and strength is graded grossly at 4-4+/5 throughout with ROm WFLs grossly.) RLE Assessment RLE Assessment: (BLE AROM WFLs grossly; BLe strength graaded grossly at 4+/5.) Outcome Assessments 6 Clicks (Mobility) Help from another person turning from your back to your side while in a flat bed without using bedrails: None Help from another person moving from lying on your back to sitting on the side of a flat bed without using bedrails: None Help from another person moving to and from a bed to a chair (including a wheelchair): None Help from another person standing up from a chair using your arms (e.g. wheelchair or bedside chair): None Help from another person to walk in hospital room: None Help from another person climbing 3-5 steps with a railing: A little Mobility 6 Clicks T-Score: 23 Assessment/Plan PT Assessment Impairments: Decreased strength, Decreased endurance PT Assessment: The patient tolerated her PT assessment well. No ongoing skilled PT interventionrequired at this time. Prognosis: Excellent PT Education/Comments: Role of PT, reminders given as to safety with gait, and transfers and use of a straight cane when needed. Plan PT Plan: No skilled PT PT Discharge Recommendations: Patient is able to return to prior living environment PT - Discharge Recommendations Placed: Yes PT Goals Multi-Disciplinary Problems (from Physical Therapy) Active Problems Not on file BASIC METABOLIC PANEL Collected: 2024 4:06 AM Status: UNK Source: [facility] TYPE CODE TESTS RESULT OUT OF RANGE REFERENCE UNITS LAB [id number] SODIUM (MMOL/L) IN SER/PLAS 134 Low 136-145 mmol/L LAB [id number] POTASSIUM (MMOL/L) IN SER/PLAS 4.2 3.5-5.1 mmol/L LAB [id number] CHLORIDE (MMOL/L) IN SER/PLAS 105 98-107 mmol/L LAB [id number] CARBON DIOXIDE, TOTAL (MMOL/L) IN SER/PLAS 24 21-31 mmol/L LAB [id number] UREA NITROGEN (MG/DL) IN SER/PLAS 26 High 7-25 mg/dL LAB [id number] CREATININE (MG/DL) IN SER/PLAS 1.24 High 0.60-1.20 mg/dL LAB [id number] GLUCOSE (MG/DL) IN SER/PLAS 92 70-100 mg/dL LAB [id number] CALCIUM (MG/DL) IN SER/PLAS 8.1 Low 8.6-10.3 mg/dL LAB [id number] ANION GAP IN SER/PLAS 9 7-20 mmol/L LAB [id number] GLOMERULAR FILTRATION RATE ML/MIN/1.73 SQ M.PREDICTED 46.5 Low >60.0 mL/min/ 1.73m*2 Result Comment: [facility]???s estimated glomerular filtration rate (eGFR) will no [...] disproportionately affect any one group of individuals. LAB [id number] UREA NITROGEN/CREA TININE (MASS RATIO) IN SER/PLAS 21.0 NA Performed By: #### [id number] ### # [facility] ([facility]) [address] [place] [address] CBC Collected: 09/05/2024 4:06 AM Status: UN K Source: [facility] TYPE CODE TESTS RESULT OUT OF RANGE REFERENCE UNITS LAB [id number] LEUKOCYTES(10*3/ U L) IN BLOOD BY AUTOMATED COUNT 17.69 High 4.00-10.60 10*3/uL LAB [id number] ERYTHROCYTES (10*6/UL) IN BLOOD BY AUTOMATED COUNT 3.31 Low 3.80-5.00 10*6/uL LAB [id number] HEMOGLOBIN (G/DL ) IN BLOOD 10.2 Low 12.0-15.0 g/dL LAB [id number] HEMATOCRIT (%) I N BLOOD BY AUTOMATED COUNT 31.9 Low 36.0-45.0 % LAB [id number] ERYTHROCYTE MEAN CORPUSCULAR VOLUME (FL) BY AUTOMATED COUNT 96.4 82.0-98.0 fL LAB [id number] ERYTHROCYTE MEAN CORPUSCULAR HEMOGLOBIN (PG) BY AUTOMATED COUNT 30.8 27.0-33.0 pg LAB [id number] ERYTHROCYTE MEAN CORPUSCULAR HEMOGLOBIN CONCENTRATION (G/DL) BY AUTOMATED 32.0 32.0-35.0 g/dL LAB [id number] ERYTHROCYTE DISTRIBUTION WIDTH (RATIO) BY AUTOMATED COUNT 14.0 11.5-15.0 % LAB [id number] PLATELETS (10*3/UL) IN BLOOD AUTOMATED COUNT 247 150-400 10*3/uL Performed By: #### [id number] ## ## [facility] ([facility]) [address] [place] [address] 30 Observed: 09/04/2024 8:24 PM Status: COMPLETED Source: [facility] The patient is Moderately St able - Low risk of patient condition declining or worsening The patient's goals for the shift include comfort/rest The clinical goals for the shift include stable vital signs Problem: Pain - Adult Goal: Verbalizes/displays adequate comfort level or baseline comfort level Outcome: Progressing Flowsheets (Taken 09/04/20241952) Verbalizes/displays adequate comfort level or baseline comfort level: Encourage patient to monitor pain and request assistance Administer analgesics based on type and severity of pain and evaluate response Implement non-pharmacological measures as appropriate and evaluate response Consider cultural and social influences on pain and pain management Notify Licensed Independent Practitioner if interventions unsuccessful or patient reports new pain Assess pain using appropriate pain scale Problem: Safety - Adult Goal: Free from fall injury Outcome: Progressing Problem: Discharge Planning Goal: Discharge to home or other facility with appropriate resources Outcome: Progressing Flowsheets (Taken 09/04/20241952) Discharge to home or other facility with appropriate resources: Identify barriers to discharge with patient and caregiver Arrange for needed discharge resources and transportation as appropriate Identify discharge learning needs (meds, wound care, etc) Arrange for interpreters to assist at discharge as needed Refer to discharge planning if patient needs post-hospital services based on physician order or complex needs related to functional status, cognitive ability or social support system Problem: Chronic Conditions and Co-morbidities Goal: Patient's chronic conditions and co-morbidity symptoms are monitored and maintained or improved Outcome: Progressing Flowsheets (Taken 09/04/20241952) Care Plan - Patient's Chronic Conditions and [...] and prevent overall improvement and discharge Problem: Respiratory - Adult Goal: Achieves optimal ventilation and oxygenation Outcome: Progressing Flowsheets (Taken 09/04/20241952) Achieves optimal ventilation and oxygenation: Assess for changes in respiratory status Assess for changes in mentation and behavior Position to facilitate oxygenation and minimize respiratory effort Initiate smoking cessation protocol as indicated Assess the need for suctioning and aspirate as needed Assess and instruct to report shortness of breath or any respiratory difficulty Respiratory therapy support as indicated Encourage broncho-pulmonary hygiene including cough, deep breathe, incentive spirometry Oxygen supplementation based on oxygen saturation or arterial blood gases Problem: Cardiovascular - Adult Goal: Maintains optimal cardiac output and hemodynamic stability Outcome: Progressing Flowsheets (Taken 09/04/20241952) Maintains optimal cardiac output and hemodynamic stability: Monitor blood pressure and heart rate Monitor urine output and notify Licensed Independent Practitioner for values outside of normal range Assess for signs of decreased cardiac output Administer fluid and/or volume expanders as ordered Administer vasoactive medications as ordered Problem: Skin/Tissue Integrity - Adult Goal: Skin integrity remains intact Outcome: Progressing Flowsheets (Taken 09/04/20241952) Skin integrity remains intact: Monitor for areas of redness and/or skin breakdown Assess vascular access sites hourly Change oxygen saturation probe site as needed If on nasal continuous positive airway pressure, respiratory therapy assesses nares and determine need for appliance change or resting period as needed 30 Observed: 09/04/2024 6:10 PM Status: COMPLETED Source: [facility] The patient is Moderately St able - Low risk of patient condition declining or worsening The patient's goals for the shift include comfort,rest The clinical goals for the shift include stable vitals, safety Problem: Safety - Adult Goal: Free from fall injury Outcome: ProgressingProblem: Chronic Conditions and Co-morbidities Goal: Patient's chronic conditions and co-morbidity symptoms are monitored and maintained or improved Outcome: ProgressingProblem: Respiratory - Adult Goal: Achieves optimal ventilation and oxygenation Outcome: Progressing PROGRESS Observed: 09/04/2024 5:23 PM Status: COMPLETED Source: [facility] 09/04/24 1706 Admission Assessment Questions Verify insurance with patient Yes Do you understand medical disease or what brought you into the hospital? Yes Who is your current PCP? Nolvia Jimenez CNP Can I schedule a follow up appointment for you at the time of discharge? No Do you understand why you are taking your current medications? Yes Are you taking your medications as prescribed? Yes Did patient provide teach back? No Pharmacy Bedside Delivery Status Interested (Depending on what it is.) Does the patient have a upper caser assigned to them through their insurance? No Living Arrangement (Current/Prior to Hospitalization) Private residence Does the patient have history of HHC or SNF? Yes (Is active with a HHC service called [facility] this is through insurance [place] for renal care.) Assistive Device Cane;Other (Comment) (rollator for long walks, shower chair,) Patient's goal for discharge home Was patient reminded that goal for discharge is 11am? Yes Does the patient have transportation at discharge? Yes Type of Residence Private residence Is PT/OT appropriate? Yes Is PT/OT ordered? Yes Is SW consult appropriate? No Is SW consult ordered? No Do you understand the benefits of MyChart? Yes Were you able to send link and activate MyChart? MyChart already active PROGRESS Observed: 09/04/2024 5:17 PM Status: COMPLETED Source: [facility] Spiritual Care Note Patient name: Chiara Eduardo Age: 69 y.o. Room: 3123/3123-01 09/04/24 1710 Clinical Encounter Type Visited With Patient Type of Visit Advance Directives Last Visit Date 09/04/24 Referral From Nurse Patient Spiritual Care Encounters Spiritual Care Assessment Hopeful;Coping with diagnoses (Pt seemed to be coping with situation. Pt completed ADV DIR's naming as agent and three daughters as alternates.) Pastoral Intervention Advance directives;Emotional support;Spiritual support (C D Area Supervisor assisted pt with completing ADV DIR. Copies made, original & copies returned to pt, copy placed in pt chart.) Response Appreciative ANTI-XA (HEPARIN LEVEL) Collected: 09/04/2024 4:58 PM Status: UNK Source: [facility] Order Comment: Check anti-Xa level every 6 hours while on heparin infusion, or per protocol. TYPE CODE TESTS RESULT OUT OF RANGE REFERENCE UNITS LAB [id number] HEPARIN UNFRACTIONATED (U/ML) IN PPP BY CHROMOGENIC METHOD <0.10 Unknown 0.3-0.7 IU/mL Result Comment: Rivaroxaban and Apixaban will interfere with the anti Xa assay used to monitor UFH and LMWH. Performed By: #### [id number] ## ## [facility]) [address] [place] [address] PROGRESS Observed: 09/04/2024 1:47 PM Status: COMPLETED Source: [facility] Occupational Therapy Occupational Therapy Evaluation Patient Name: Chiara Eduardo : 1955 Today's Date: 09/04/2024 Time In: 1317 Time Out: 1336 Chiara Eduardo is an 69 y.o. female who came from home with shortness of breath COPD (chronic obstructive pulmonary disease) (CMS/HCC) Acute hypoxic respiratory failure General Subjective: friendly and cooperative Patient Active Problem List Diagnosis Bladder prolapse, female, acquired Chronic GERD COPD (chronic obstructive pulmonary disease) (CMS/HCC) Coronary artery disease involving [place] coronary artery of [place] heart without angina pectoris Diuretic-induced hypokalemia Essential hypertension Former smoker Health care maintenance History of acute inferior wall [place] Lower back pain Mixed hyperlipidemia Severe obesity (BMI 35.0-39.9) with comorbidity (CMS/HCC) Shortness of breath Chest pain Arrhythmia Anemia Hypomagnesemia Hyponatremia Non-sustained ventricular tachycardia (CMS/HCC) History of tobacco use Other halfway (current) 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 PVC (premature ventricular contraction) Multiple pulmonary nodules Irregular heartbeat Stage 3a chronic kidney disease (CMS/HCC) Body mass index (BMI) 35.0-35.9, adult Angina pectoris, unstable (CMS/HCC) CRP elevated Elevated WBC count NSTEMI (non-ST elevated myocardial infarction) (CMS/HCC) Pneumonia Acute hypoxic respiratory failure (CMS/HCC) Elevated troponin Past Medical History: Diagnosis Date Abnormal ECG Chronic GERD 12/28/2016 Chronic kidney disease COPD (chronic obstructive pulmonary disease) ([facility]) Coronary artery disease Coronary artery disease involving [place] coronary artery of [place] heart without angina pectoris 12/28/2016 Essential hypertension 12/14/2016 Hyperlipidemia Lower back pain 12/28/2016 Mixed hyperlipidemia 12/14/2016 Shortness of breath 12/28/2016 Past Surgical History: Procedure Laterality Date CARDIAC CATHETERIZATION CHOLECYSTECTOMY CORONARY STENT PLACEMENT HYSTERECTOMY Precautions Precautions Medical Precautions: fall risk, oxygen (4LO2) Pain Pain Assessment Pain Assessment: No/denies pain Cognition Cognition Overall Cognitive Status: Within Functional Limits General Assessment General Assessment Hearing: (wfl) Hand Dominance: Right Home Living Home Living Type of Home: House Lives With: Spouse Home Adaptive Equipment: Cane, Rollator ([place], [facility]) Home Layout: Multi-level, Bed/bath upstairs (tri level , bed and bath up 4 steps with rail) Home Access: Stairs to enter with rails (4) Bathroom Shower/Tub: Tub/shower unit Prior Level of Function Prior Function Level of [place]: Independent with ADLs and functional transfers, Independent with homemaking with ambulation Prior Functional Mobility: Independent without device (drives) Prior IADLs IADL History Homemaking Responsibilities: Yes Dynamic Sitting Balance Dynamic Sitting Balance Dynamic Sitting Balance-Level of Assistance: Independent Static Standing Balance Static Standing Balance Static Standing-Level of Assistance: Close supervision (cane) ADL ADL LE Dressing Assistance: Stand by Transfers Transfers Transfer: (sitting EOB upon arrival , SBA with cane: sit to stand , 20 feet X2 and sit into chair) Objective General Assessments Activity [...] Eating meals?: None (Independent) Total Score OT [facility]: 21 Assessment/Plan OT Assessment OT Impairments: Decreased ADL status, Decreased endurance, Decreased functional mobility OT Assessment/ASHOK Summary: (needs skilled OT due to weakness and fatigue) Prognosis: Good Evaluation/Treatment Tolerance: Patient limited by fatigue Medical Staff Made Aware: Yes OT Education/Comments: (LB adl and adl transfer safety / technique with good return demo) Plan Level of assist: 1 assist Treatment Interventions: ADL retraining, Functional transfer training, Endurance training, Patient/family training, Neuromuscular reeducation, Compensatory technique education OT Plan: Skilled OT OT Frequency: 5 times per week OT Discharge Recommendations: Patient is able to return to prior living environment OT - Discharge Recommendations Placed: Yes OT Goals Multi-Disciplinary Problems (from Occupational Therapy) Active Problems Problem: Balance Start Date: 09/04/24 Goal Start Date Expected End Date End Date LTG - Patient will maintain stand balance to allow for safe mobility 09/04/24 09/18/24 -- Problem: Bathing Start Date: 09/04/24 Goal Start Date Expected End Date End Date LTG - Patient will utilize adaptive techniques to bathe body with no assistance 09/04/24 09/18/24 -- Problem: Dressings Lower Extremities Start Date: 09/04/24 Goal Start Date Expected End Date End Date LTG - Patient will dress lower body with no assistance 09/04/24 09/18/24 -- Problem: Toileting Start Date: 09/04/24 Goal Start Date Expected End Date End Date LTG - Patient will utilize adaptive techniques/equipment to complete daily toileting tasks with no assistance 09/04/24 09/18/24 -- Problem: OT Misc Start Date: 09/04/24 Goal Start Date Expected End Date End Date Mod I adl transfers 50 feet and standing 10 minutes 09/04/24 09/18/24 -- PROGRESS Observed: 09/04/2024 12:39 PM Status: COMPLETED Source: [facility] Likely type II WI, supply/de souleymane mismatch EKG shows sinus rhythm with PVCs Echo pending PROGRESS Observed: 09/04/2024 12:39 PM Status: COMPLETED Source: [facility] Secondary to right lower lob e pneumonia likely component of CHF Echocardiogram pending Continue current antibiotics with Rocephin and Zithromax Lasix switched to 40 mg daily instead of every other day 20 mg Continue DuoNeb as needed Sputum culture has few gram-positive cocci in pairs Influenza A/B negative as well as COVID-19. Mycoplasma PCR PROGRESS Observed: 09/04/2024 12:39 PM Status: COMPLETED Source: [facility] Patient at home on oral pred nisone 10 mg daily Continue Dulera and Incruse Ellipta DuoNeb as needed MYCOPLASMA PNEUMONIAE PCR Collected: 12:33 PM Status: UNK Source: [facility] TYPE CODE TESTS RESULT OUT OF RANGE REFERENCE UNITS LAB [id number] MYCOPLASMA PNEUMONIAE SOURCE Not Provided Result Comment: Specimen debbie rce was not provided. Please refer to the [facility] Test Directory for validated specimen source information: [email or web address]/testing. Interpret results with caution. LAB [id number] MYCOPLASMA PNEUMONIAE PCR Not Detected Result Comment: NOT DETECTED - A negative result does not rule out the presence of PCR inhibitors in the patient specimen or assay specific nucleic acid in concentrations below the level of detection by the assay. INTERPRETIVE INFORMATION: Mycoplasma pneumoniae by PCR This test was developed and its performance characteristics determined by [facility]. It has not been cleared or approved by the US Food and Drug Administration. This test was performed in a CLIA certified laboratory and is intended for clinical purposes. Performed By: [facility] [address] [place] [address] Job Putter Up And Ticket Preparer: Amol Tran MD, PhD CLIA Number: [id number] Performed By: #### [id number] ## ## [facility] ([facility]) [address] [place], [place] [id number] PROGRESS Observed: 09/04/2024 12:26 PM Status: COMPLETED Source: [facility] Hospital Medicine Daily Progress Note - 09/04/2024 12:26 PM; Room: [address] [place] [address] Admission: 09/03/2024 4:20 PM; Length of stay: 1 days THE HOSPITALIST TEAM PREFERS TO USE [employer] FOR NON-URGENT COMMUNICATION 7AM-7PM. IF I DO NOT RESPOND WITHIN 20 MINUTES OR URGENT MATTERS, PLEASE CALL THROUGH THE CASEWORK MANAGER. FROM 7PM-7AM, PLEASE PAGE [phone](COVR). Code Status: Full Code Barriers to Discharge: Acute respiratory failure management Expected Discharge Date: 3-4 days Discharge Destination: home Overview Patient is seen for evaluation and management of acute respiratory failure. Subjective Seen today in her room, on 40% FiO2 with 40 L flow. Does not seem in any acute distress Physical Exam Cardiovascular: Rate and Rhythm: Normal rate and regular rhythm. Pulmonary: Comments: decreased breath sound bilaterally, Abdominal: General: Abdomen is flat. Palpations: Abdomen is soft. Musculoskeletal: Right lower leg: Edema present. Left lower leg: Edema present. Neurological: General: No focal deficit present. Visit Vitals BP 124/70 (BP Location: Right arm, Patient Position: Sitting) Pulse 96 Temp 36.6 ???C (97.9 ???F) (Temporal) Resp 18 Intake/Output Summary (Last 24 hours) at 09/04/2024 1226 Last data filed at 09/04/2024 1143 Gross per 24 hour Intake 1150.33 ml Output 1750 ml Net -599.67 ml Estimated body mass index is 35.43 kg/m??? as calculated from the following: Height as of this encounter: 1.6 m (5' 3 ). Weight as of this encounter: 90.7 kg (200 lb). Assessment and Plan Assessment & Plan COPD (chronic obstructive pulmonary disease) (CMS/HCC) Patient at home on oral prednisone 10 mg daily Continue Dulera and Incruse Ellipta DuoNeb as needed Acute hypoxic respiratory failure (CMS/HCC) Secondary to right lower lobe pneumonia likely component of CHF Echocardiogram pending Continue current antibiotics with Rocephin and Zithromax Lasix switched to 40 mg daily instead of every other day 20 mg Continue DuoNeb as needed Sputum culture has few gram-positive cocci in pairs Influenza A/B negative as well as COVID-19. Mycoplasma PCR Elevated troponin Likely type II [place], supply/demand mismatch EKG shows sinus rhythm with PVCs Echo pending VTE Prophylaxis: Heparin subcutaneous Scheduled Meds aspirin, 81 mg, oral, Daily atorvastatin, 80 mg, oral, Daily azithromycin, 500 mg, oral, q24h cefTRIAXone, 2 g, intravenous, q24h [START ON 09/05/2024] furosemide, 40 mg, oral, Daily High Flow Nasal Cannula - Oxygen Therapy, , inhalation, Continuous metoprolol succinate XL, 50 mg, oral, BID mometasone-formoterol, 2 puff, inhalation, BID And umeclidinium, 1 puff, inhalation, Daily pantoprazole, 40 mg, oral, BID AC predniSONE, 10 mg, oral, Daily Pertinent Investigations Hematology: Results from last 7 days Lab Units 09/04/2441609/03/24 1709 WBC AUTO 10*3/uL 19.91* 19.92* HEMOGLOBIN g/dL 10.4* 12.3 HEMATOCRIT % 32.0* 38.3 MCV fL 96.7 97.0 PLATELETS AUTO 10*3/uL 227 272 Chemistry: Results from last 7 days Lab Units 09/04/2441609/03/24 1709 SODIUM mmol/L 133* 134* POTASSIUM mmol/L 4.5 4.8 CHLORIDE mmol/L 105 103 CO2 mmol/L 23 25 BUN mg/dL 24 29* CREATININE mg/dL 1.21* 1.48* GLUCOSE mg/dL 113* 130* MAGNESIUM mg/dL 1.8* 1.8* CALCIUM mg/dL 7.7* 8.3* Results from last 7 days Lab Units 09/04/2441309/03/24 1709 HCO3 ART mEq/L 23.7 -- O2 SAT ART % 97.9 -- AST U/L -- 25 ALT U/L -- 19 ALK PHOS U/L -- 54 BILIRUBIN TOTAL mg/dL -- 0.4 Historical Values: (Includes values prior to this admission) Lab Results Component Value Date TSH 1.56 10/27/2022 HDL 70 09/03/2024 LDL 55 09/03/2024 Lab Results Component Value Date IRON <10 (L) 10/28/2022 TIBC <404 10/28/2022 Imaging ECG 12 lead Sinus rhythm with frequent Premature ventricular complexes Low voltage QRS Borderline ECG When compared with ECG of 03-SEP-2024 16:56, No significant change was found Confirmed by Jamie Estevez ([id number]) on 09/03/2024 6:41:10 PM ECG 12 lead Sinus rhythm with frequent Premature ventricular complexes Low voltage QRS Borderline ECG When compared with ECG of 03-JUL-2024 07:56, Premature ventricular complexes are now Present Confirmed by Jamie Estevez ([id number]) on 09/03/2024 5:33:18 PM XR chest 1 view Narrative: XR CHEST 1 VIEW 09/03/2024 4:49 PM CLINICAL INDICATIONS: Pneumonia COMPARISON: 10/27/2022 FINDINGS: There is right lower lobe infiltration, new in comparison to prior exam, likely pneumonia. Left lung clear. No pneumothorax. Cardiac contour is stable. Impression: Right lower lobe infiltrate, likely pneumonia. Electronically signed: [employer]. Discharge Planning Expected Discharge Disposition: Home or Self Care () (pending PT/OT evals) Signed Rhea Livingston MD Hospital Medicine 09/04/2024 12:26 PM LEGIONELLA ANTIGEN, URINE Collected: 12:11 PM Status: UNK Source: [facility] TYPE CODE TESTS RESULT OUT OF RANGE REFERENCE UNITS LAB [id number] LEGIONELLA AG, UR NEGATIVE NEG Result Comment: L. pneumophi la serogroup 1 antigen not detected. A negative result does not exclude infection with Leginella pnemophila serogroup 1 nor does it rule out other microbial-caused respiratory infections of disease caused by other serogroups of Legionella pneumophila. Test Performed by [facility] [address] [place] [address] - Released 09/04/2024 20:22 Performed By: #### [id number] ## ## [facility] [address] [place] [address] PROGRESS Observed: 09/04/2024 10:43 AM Status: COMPLETED Source: [facility] - Patient was requiring nonr ebreather upon arrival to [facility] - has been switched to high flow nasal cannula - Patient was on Lasix 20 mg every other day - switching to 40 mg daily, monitor I's and O's and daily weight - Continue with DuoNeb as needed No associated orders from this encounter found during lookback period of 72 hours. PROGRESS Observed: 09/04/2024 10:43 AM Status: COMPLETED Source: [facility] - Patient was requiring nonr ebreather upon arrival to [facility] - has been switched to high flow nasal cannula -Chest x-ray at [facility] showed right lower lobe pneumonia - 09/04/2024 x-ray done at [facility] was consistent with the previously mentioned findings - Continue with DuoNeb as needed - Continue following lactic acid trend to assess hypoxia status - WBC remains elevated at 19.91 while her temperature remains stable around 36.3 celsius since last night - Current antibiotic regimen includes - azithromycin IVPB 500 mg in NS 250 mL Mini-Bag Plus (Pyxis-CNR) and ceftriaxone (Rocephin) IVPB 2 g in NS 50 mL (Mini-Bag Plus) - Reassess antibiotic plan after receiving results from the sputum culture No associated orders from this encounter found during lookback period of 72 hours. PROGRESS Observed: 09/04/2024 10:43 AM Status: COMPLETED Source: [facility] - Currently on Breztri at [facility], not on home oxygen as of now - Patient is a former smoker, there is no need for smoking cessation counseling at this time No associated orders from this encounter found during lookback period of 72 hours. PROGRESS Observed: 09/04/2024 10:43 AM Status: COMPLETED Source: [facility] Coronary artery disease is u nchanged. Continue current treatment regimen. Cardiac status will be reassessed by cardiology in out patient clinic setting. - Heparin was discontinued after cardiology consult because of low concern for acute NSTEMI based on cardiac catheterization from 07/03/2024 - Limited Echo w/wo Limited Doppler was done around 0800 on 09/04/2024, awaiting results at this time - High sensitivity troponin is down trending from 1,478 yesterday to 1,053 this morning at 0417 No associated orders from this encounter found during lookback period of 72 hours. PROGRESS Observed: 09/04/2024 10:04 AM Status: COMPLETED Source: [facility] Adult Nutrition Assessment: Name: Chiara Eduardo Date: 1955 Date of Visit: 09/04/24 Admission Dx: NSTEMI (non-ST elevated myocardial infarction) ([facility]) [I21.4] Reason for assessment: high risk PO and COPD Information obtained from: patient and medical record Past Medical History: Diagnosis Date Abnormal ECG Chronic GERD 12/28/2016 Chronic kidney disease COPD (chronic obstructive pulmonary disease) ([facility]) Coronary artery disease Coronary artery disease involving [place] coronary artery of [place] heart without angina pectoris 12/28/2016 Essential hypertension 12/14/2016 Hyperlipidemia Lower back pain 12/28/2016 Mixed hyperlipidemia 12/14/2016 Shortness of breath 12/28/2016 Current Medications: aspirin, 81 mg, oral, Daily atorvastatin, 80 mg, oral, Daily azithromycin, 500 mg, intravenous, q24h cefTRIAXone, 2 g, intravenous, q24h furosemide, 40 mg, oral, Every other day High Flow Nasal Cannula - Oxygen Therapy, , inhalation, Continuous metoprolol succinate XL, 50 mg, oral, BID pantoprazole, 40 mg, oral, BID AC Labs: 0 Lab Value Date/Time BUN 24 09/04/2024 0417 CREATININE 1.21 (H) 09/04/2024 0417 NA 133 (L) 09/04/2024 0417 K 4.5 09/04/2024 041 MG 1.8 (L) 09/04/2024416 HGBA1C 6.6 (H) 09/03/2024 170 HGB 10.4 (L) 09/04/2024416 WBC 19.91 (H) 09/04/2024416 CHOL 125 09/03/2024 170 HDL 70 09/03/20241708 Allergies: Allergies Allergen Reactions Clopidogrel Hydrochlorothiazide Exfoliative Dermatitis Penicillins Sodium Chloride Sulfa (Sulfonamide Antibiotics) Unknown Vancomycin Nutrition Problems: Swallowing Assessment: Pt denied problems swallowing Mouth: Pt denied problems chewing Abdominal Assessment: Pt reported having constipation- reported that she will take fiber pills and over night laxative at home Appetite: good Cognition: A&O x 4 Feeding Skills: Pt reported that she will cook her food and she has good access to food Skin Integrity: documented to be intact Edema: generalized non-pitting; BLE +1 Nutrition Data/Clinical Indicators of Nutrition Status: Height: 160 cm (5' 3 ) Weight: 90.7 kg (200 lb) BMI (Calculated): 35.44 Wt Readings from Last 10 Encounters: 09/04/24 90.7 kg (200 lb) 08/01/24 89.8 kg (198 lb) cardiology 06/15/24 89.8 kg (198 lb) cardiology 05/23/24 91.2 kg (201 lb) 04/18/24 91.7 kg Family med 01/04/24 92.1 kg (203 lb) 10/12/23 91.2 kg (201 lb) cardiology 06/29/23 91.6 kg (202 lb) 03/02/23 91.6 kg (202 lb) 12/28/22 92.1 kg (203 lb) 11/17/22 88.2 kg (194 lb 8 oz) IBW: 52.3 kg Weight change: Documented weight history shows that weight has been stable. Pt denied any recent weight changes Nutrition Assessment: Pt reported that her appetite is good and she has not had any recent changes in her appetite or intake. Pt reported that some days she will eat more than other days, it depends on her activity. Pt reported that she will typically eat 2 meals a day. Breakfast will be things like bagels, bengali muffins, eggs, sausage, cote, hash browns, or cereal. Dinner will be pork or sandwiches. Pt reported that she also likes to eat fruits and vegetables. Pt reported that she adds salt to her food as her sodium is normally low and salt tablets will make her throw up. Pt reported that she does not drink protein shakes. Dietary Orders (From admission, onward) Start Ordered 09/04/24 0826 Regular Diet Heart Healthy/HTN, CABG,Stroke, (2gNA, low fat, low cholesterol) Diet effective now Question Answer Comment Room Service? Yes Fat restriction: Heart Healthy/HTN, CABG,Stroke, (2gNA, low fat, low cholesterol) 09/04/24 0825 Nutrition Risk: Low Nutrition Diagnosis: No nutrition diagnosis at this time Malnutrition Assessment: Per Registered Dietitian assessment and evaluation, patient does not currently meet criteria OR there is not enough information to support the diagnosis of malnutrition per the clinical criteria set by the Academy of Nutrition and Dietetics (AND) and the [place] [employer] of Enteral and Parenteral Nutrition (ASPEN). Nutrition Education: Diet literature: RD discussed not adding salt to foods and using other seasonings. Pt reported that her sodium is normally low and that she will add salt instead of having to use salt tablets. Expected compliance/patient understanding: good Teach back method: yes Time spent: 15 minutes Treatment Plan: Recommend starting bowel regimen- messaged MD Continue current diet Monitor intakes Daily weights Monitor for unintentional weight changes Monitor and correct electrolytes as needed Goals: Adequate po intakes (kcals and protein); >75% meals Understanding of nutrition education/adherence to diet recommendations No significant unintentional wt loss GI fxn wnl Nutrition-related labs (magnesium, phosphorus, BMP) wnl To reach the Clinical Dietitian, please utilize [employer] chat Wednesday-Wednesday from 8AM-4PM or call extension [phone]. For weekends (Wednesday-Wednesday) and holidays, the Clinical Dietitian can be reached via pager ([phone]) from 9AM-3PM. The Clinical Nutrition Department is unable to respond to [employer] chat messages on Sundays and hols. PROGRESS Observed: 09/04/2024 10:04 AM Status: COMPLETED Source: [facility] Subjective Chiara Eduardo is a 69 year old female who reported shortness of breath yesterday. She has a PMH including COPD, HTN, HLD, and chronic GERD. She quit smoking in 2017. She presented to [facility] last night with shortness of breath and acute on chronic abdominal pain. X-ray showed right lower lobe pneumonia with increased troponin of 78.9 and lactic acid of 3.2. She was started on heparin drip, given antibiotics and sent to [facility] for further follow-up. Upon arrival to [facility], she reported mild lower abdominal pain and denied any ramón pain, cough, palpitation or any other related symptoms. Initial EKG showed sinus rhythm with frequent premature ventricular complexes and low voltage QRS. Follow-up x-ray at [facility] was consistent with the previous findings of right lower lobe pneumonia. She was placed on continuous high flow nasal cannula because of concern for acute hypoxic respiratory failure. Transthoracic echo was done at 0800 on 09/04/2024 and are currently awaiting the results. Objective Patient Vitals for the past 24 hrs: BP Temp Temp src Pulse Resp SpO2 Height Weight 09/04/24 1025 107/68 -- -- 89 17 95 % -- -- 09/04/24 0755 103/56 36.3 ???C (97.3 ???F) Temporal -- -- -- -- -- 09/04/24 0751 103/56 36.3 ???C (97.3 ???F) Temporal 72 17 98 % -- -- 09/04/24 0451 -- -- -- -- -- -- -- 90.7 kg (200 lb) 09/04/24 0419 -- -- -- -- -- 98 % -- -- 09/04/24 0405 135/50 36.3 ???C (97.3 ???F) Temporal 83 11 100 % -- -- 09/04/24 0326 -- -- -- 75 16 100 % -- -- 09/04/24 0030 103/59 36.3 ???C (97.4 ???F) Temporal 76 13 99 % -- -- 09/03/24 2319 -- -- -- -- -- 100 % -- -- 09/03/24 2211 113/84 -- -- 88 -- -- -- -- 09/03/242000 -- -- -- -- -- 100 % -- -- 09/03/241999 104/60 36.1 ???C (97 ???F) Temporal 88 16 100 % -- -- 09/03/24 1855 92/51 -- -- 101 19 98 % -- -- 09/03/24 1835 129/81 -- -- 96 19 100 % -- -- 09/03/24 1716 -- -- -- -- -- 100 % -- -- 09/03/24 1650 -- -- -- -- -- -- 1.6 m (5' 3 ) 90.7 kg (200 lb) 09/03/24 1630 121/59 36.1 ???C (96.9 ???F) Temporal 88 21 100 % -- -- Physical Exam Constitutional: General: She is awake. HENT: Head: Normocephalic. Eyes: General: Lids are normal. Cardiovascular: Rate and Rhythm: Normal rate and regular rhythm. Pulses: Radial pulses are 2+ on the right side and 2+ on the left side. Heart sounds: Normal heart sounds. Pulmonary: Breath sounds: Examination of the right-middle field reveals decreased breath sounds and rales. Decreased breath sounds and rales present. Musculoskeletal: Right lower le+ Pitting Edema present. Left lower le+ Pitting Edema present. Neurological: Mental Status: She is alert. Psychiatric: Behavior: Behavior is cooperative. Lab Results Component Value Date NA 133 (L) 09/04/2024 K 4.5 09/04/2024 CL 105 09/04/2024 ANIONGAP 10 09/04/2024 BUN 24 09/04/2024 CREATININE 1.21 (H) 09/04/2024 CALCIUM 7.7 (L) 09/04/2024 MG 1.8 (L) 09/04/2024 Lab Results Component Value Date BILITOT 0.4 09/03/2024 ALKPHOS 54 09/03/2024 AST 25 09/03/2024 ALT 19 09/03/2024 PROT 6.0 09/03/2024 ALBUMIN 3.6 09/03/2024 Lab Results Component Value Date WBC 19.91 (H) 09/04/2024 RBC 3.31 (L) 09/04/2024 HGB 10.4 (L) 09/04/2024 HCT 32.0 (L) 09/04/2024 MCV 96.7 09/04/2024 MCH 31.4 09/04/2024 MCHC 32.5 09/04/2024 RDW 14.0 09/04/2024 NEUTOPHILPCT 93.3 (H) 09/03/2024 LYMPHOPCT 1.4 (L) 09/03/2024 MONOPCT 3.4 (L) 09/03/2024 EOSPCT 1.2 09/03/2024 BASOPCT 0.2 09/03/2024 NEUTROABS 18.60 (H) 09/03/2024 LYMPHSABS 0.28 (L) 09/03/2024 MONOSABS 0.67 09/03/2024 EOSABS 0.24 09/03/2024 BASOSABS 0.03 09/03/2024 PLT 227 09/04/2024 NRBC 0.0 09/03/2024 XR chest 1 view Result Date: 09/03/2024 Right lower lobe infiltrate, likely pneumonia. Electronically signed: True Cheek. No MRI results found for the past [address] results found for the past 24 hours Encounter Date: 09/03/24 ECG 12 lead Result Value Ventricular Rate 93 Atrial Rate 93 ME Interval 138 QRS DURATION 76 QT Interval 354 QTC CALCULATION(BAZETT) 440 P Printer 69 R-Printer 35 T Wave Printer 45 Impression Sinus rhythm with frequent Premature ventricular complexes Low voltage QRS Borderline ECG When compared with ECG of 03-SEP-2024 16:56, No significant change was found Confirmed by Jamie Estevez ([id number]) on 09/03/2024 6:41:10 PM Nutrition Screen Assessment Assessment & Plan NSTEMI (non-ST elevated myocardial infarction) ([facility]) Coronary artery disease is unchanged. Continue current treatment regimen. Cardiac status will be reassessed by cardiology in out patient clinic setting . - Heparin was discontinued after cardiology consult because of low concern for acute NSTEMI based on cardiac catheterization from 07/03/2024 - Limited Echo w/wo Limited Doppler was done around 0800 on 09/04/2024, awaiting results at this time - High sensitivity troponin is down trending from 1,478 yesterday to 1,053 this morning at 0417 No associated orders from this encounter found during lookback period of 72 hours. COPD (chronic obstructive pulmonary disease) ([facility]) - Currently on Breztri at home, not on home oxygen as of now - Patient is a former smoker, there is no need for smoking cessation counseling at this time No associated orders from this encounter found during lookback period of 72 hours. Pneumonia - Patient was requiring nonrebreather upon arrival to [facility] - has been switched to high flow nasal cannula -Chest x-ray at [facility] showed right lower lobe pneumonia - 09/04/2024 x-ray done at [facility] was consistent with the previously mentioned findings - Continue with DuoNeb as needed - Continue following lactic acid trend to assess hypoxia status - WBC remains elevated at 19.91 while her temperature remains stable around 36.3 celsius since last night - Current antibiotic regimen includes - azithromycin IVPB 500 mg in NS 250 mL Mini-Bag Plus (Pyxis-CNR) and ceftriaxone (Rocephin) IVPB 2 g in NS 50 mL (Mini-Bag Plus) - Reassess antibiotic plan after receiving results from the sputum culture No associated orders from this encounter found during lookback period of 72 hours. Acute hypoxic respiratory failure (CMS/HCC) - Patient was requiring nonrebreather upon arrival to [facility] - has been switched to high flow nasal cannula - Patient was on Lasix 20 mg every other day - switching to 40 mg daily, monitor I's and O's and daily weight - Continue with DuoNeb as needed No associated orders from this encounter found during lookback period of 72 hours. As the teaching physician, I have personally performed or re-performed the history of present illness, physical exam and medical decision-making activities of the encounter and verified the medical student's documentation. I made pertinent changes as necessary to ensure accurate documentation. There may be additional comments below. BLOOD CULTURE Collected: 09/04/2024 9:37 AM Status: UNK Source: [facility] Order Comment: From a differ ent site than #1. TYPE CODE TESTS RESULT OUT OF RANGE REFERENCE UNITS LAB [id number] BLOOD CULTURE No growth at 5 days Performed By: #### [id number] ## ## [facility] ([facility]) [address] [place] [address] BLOOD CULTURE Collected: 09/04/2024 9:33 AM Status: UNK Source: [facility] TYPE CODE TESTS RESULT OUT OF RANGE REFERENCE UNITS LAB [id number] BLOOD CULTURE No growth at 5 days Performed By: #### [id number] ## ## [facility] ([facility]) [address] [place] [address] HIGH SENSITIVITY CRP Collected: 09/04/2024 9:33 AM S tatus: UNK Source: [facility] TYPE CODE TESTS RESULT OUT OF RANGE REFERENCE UNITS LAB [id number] CRP, HIGH SENSITIVITY >300.0 High <=3.0 mg/L Result Comment: INTERPRETIVE INFORMATION: CRP, High Sensitivity Patients with higher hs-CRP concentrations are more likely to develop stroke, myocardial infarction, and severe peripheral vascular disease. CRP is a nonspecific marker of inflammation and a variety of conditions other than atherosclerosis may cause elevated concentrations. If the first result is greater than 3.0 mg/L, recommend repeating test at least 2 weeks later in a metabolically stable state, free of infection or acute illness. The lower of the two results should be used to determine the patient's risk. Significantly decreased CRP values may result in specimens from patients treated with carboxypenicillins. hs-CRP results are used to assign risk as follows : less than 1.0 mg/L ...... low risk 1.0 - 3.0 mg/L .......... average risk greater than 3.0 mg/L ... high risk Performed By: [employer] [address] [place] [address] Job Putter Up And Ticket Preparer: Amol Tran MD, PhD CLIA Number: [id number] Performed By: #### [id number] ## ## [facility] ([facility] [address] [place] [address] ANTI-XA (HEPARIN LEVEL) Collected: 09/04/2024 9:33 AM Status: UNK Source: [facility] Order Comment: Check anti-Xa level every 6 hours while on heparin infusion, or per protocol. TYPE CODE TESTS RESULT OUT OF RANGE REFERENCE UNITS LAB [id number] HEPARIN UNFRACTIONATED (U/ML) IN PPP BY CHROMOGENIC METHOD 0.61 0.3-0.7 IU/mL Result Comment: Rivaroxaban and Apixaban will interfere with the anti Xa assay used to monitor UFH and LMWH. Performed By: #### [id number] ## ## [facility] ([facility]) [address] [place] [address] CONSULT Observed: 09/04/2024 8:38 AM Status: COMPLETED Source: [facility] Attestation signed by Manny Younger MD at 09/04/2024 4:28 PM (Updated) I personally spoke with and examined Ms. Eduardo without Dr. Colon and we discussed her care. She has pneumonia with R rales and R sided chest pain. Currently she is stable. As stated in Dr. Colon's note, she had a recent cardiac catheterization and I reviewed those images today demonstrating only mild coronary artery disease. We suspect this is a type 2 WI and, if she remains clinically stable, recommend no further cardiac evaluation at this time. We do recommend you continue aspirin, isosorbide, toprol XL, atorvastatin and other cardiac medications. Cardiology Consult Note Reason for Consult: NSTEMI HPI: Chiara Eduardo is a 69 y.o. female with a history of coronary artery disease, prior stent placement, COPD, History of acute inferior wall WI, HT, HLP, CKD, obesity presented with shortness of breath Cardiology consulted for elevated troponin and SOB Patient presented with worsening shortness of breath. She presented to [facility], found to have right lower lobe pneumonia, with increasing troponin to 78.9, lactic of 3.2, patient was started on heparin drip, antibiotics, and was sent to [facility] for further workup. Cardiac history:history of coronary artery disease, prior stent placement, nonsustained ventricular tachycardia Cardiac workup: most recent RHC on 07/03/2024: Patent stents in the right coronary artery [...] pulmonary venous hypertension Normal cardiac output/cardiac index Cardiac home medications: Farxiga, aspirin, atorvastatin, Toprol Xl, Imdur, Olmesartan, Lasix Cardiology ROS: Review of Systems Constitutional: Positive for fatigue and fever. Respiratory: Positive for shortness of breath and wheezing. Cardiovascular: Positive for leg swelling. Negative for chest pain. Neurological: Negative. Psychiatric/Behavioral: Negative. Past Medical History She has a past medical history of Abnormal ECG, Chronic GERD (12/28/2016), Chronic kidney disease, COPD (chronic obstructive pulmonary disease) ([facility]), Coronary artery disease, Coronary artery disease involving [place] coronary artery of [place] heart without angina pectoris (12/28/2016), Essential hypertension [...] smokeless tobacco. She reports current alcohol use. She reports that she does not use drugs. Family History Family History Problem Relation Name Age of Onset Stroke Mother Kidney disease Father Coronary artery disease Paternal Grandfather Allergies Clopidogrel, Hydrochlorothiazide, Penicillins, Sodium chloride, Sulfa (sulfonamide antibiotics), and Vancomycin Medications Current Outpatient Medications Medication Instructions albuterol 90 mcg/actuation inhaler 2 puffs, inhalation, Every 4 hours PRN aspirin 81 mg, oral, Daily atorvastatin (LIPITOR) 80 mg, oral, Daily wmlnhonown-msovmfjs-twcowhlnuo (Breztri Aerosphere) 160-9-4.8 mcg/actuation HFA aerosol inhaler 160 mcg, inhalation, Daily cholecalciferol (VITAMIN D-3) 2,000 Units, oral, Daily cyclobenzaprine (FLEXERIL) 10 mg, oral, 3 times daily PRN dapagliflozin propanediol (FARXIGA) 10 mg, oral, Daily Dupixent Syringe 300 mg, subcutaneous, Every 14 days fluticasone propion-salmeteroL (Advair Diskus) 250-50 mcg/dose diskus inhaler 1 puff, inhalation, 2 times daily furosemide (LASIX) 20 mg, oral, Every other day ipratropium-albuteroL (Duo-Neb) 0.5-2.5 mg/3 mL nebulizer solution 3 mL, nebulization, 4 times daily isosorbide mononitrate ER (IMDUR) 60 mg, oral, Once Daily, Do not crush or chew. magnesium 200 mg tablet 1 tablet, oral, Daily metoprolol succinate XL (TOPROL-XL) 50 mg, oral, 2 times daily, Do not crush or chew. olmesartan (BENICAR) 40 mg, oral, Once Daily omeprazole (PRILOSEC) 20 mg, oral, Daily before breakfast predniSONE (DELTASONE) 10 mg, oral, Daily Trelegy Ellipta 100-62.5-25 mcg blister with device 1 puff, inhalation, Daily Medications Prior to Admission Medication Sig Dispense Refill Last Dose albuterol 90 mcg/actuation inhaler Inhale 2 puffs every 4 (four) hours if needed for shortness of breath. aspirin 81 mg EC tablet Take 81 mg by mouth in the morning. atorvastatin (Lipitor) 80 mg tablet Take 1 tablet (80 mg) by mouth in the morning. 90 tablet 3 jcnszbtzam-wwbtnjin-gexdakfwtk (Breztri Aerosphere) 160-9-4.8 mcg/actuation HFA aerosol inhaler Inhale 160 mcg in the morning. cholecalciferol (Vitamin D-3) 50 MCG (2000 UT) tablet Take 2,000 Units by mouth in the morning. cyclobenzaprine (Flexeril) 10 mg tablet Take 10 mg by mouth if needed in the morning, at noon, and at bedtime for muscle spasms. dapagliflozin propanediol (Farxiga) 10 mg Take 1 tablet (10 mg) by mouth in the morning. 30 tablet 3 dupilumab (Dupixent Syringe) 100 mg/0.67 mL syringe Inject 300 mg under the skin every 14 (fourteen) days. fluticasone propion-salmeteroL (Advair Diskus) 250-50 mcg/dose diskus inhaler Inhale 1 puff two times daily. furosemide (Lasix) 20 mg tablet Take 1 tablet (20 mg) by mouth every other day. 15 tablet 0 ipratropium-albuteroL (Duo-Neb) 0.5-2.5 mg/3 mL nebulizer solution Take 3 mL by nebulization 4 times a day. isosorbide mononitrate ER (Imdur) 60 mg 24 hr tablet Take 1 tablet (60 mg) by mouth once daily as directed. Do not crush or chew. 30 tablet 3 magnesium 200 mg tablet Take 1 tablet by mouth in the morning. metoprolol succinate XL (Toprol-XL) 50 mg 24 hr tablet Take 1 tablet (50 mg) by mouth two times daily. Do not crush or chew. 60 tablet 0 olmesartan (BENIcar) 40 mg tablet Take 1 tablet (40 mg) by mouth once daily as directed. 90 tablet 3 omeprazole (PriLOSEC) [address] capsule Take 20 mg by mouth before breakfast. predniSONE (Deltasone) 10 mg tablet Take 10 mg by mouth in the morning. Trelegy Ellipta 100-62.5-25 mcg blister with device Inhale 1 puff in the morning. Last Recorded Vitals Patient Vitals for the past 24 hrs: BP Temp Temp src Pulse Resp SpO2 Height Weight 09/04/24 0755 103/56 36.3 ???C (97.3 ???F) Temporal -- -- -- -- -- 09/04/24 0751 103/56 36.3 ???C (97.3 ???F) Temporal 72 17 98 % -- -- 09/04/24 0451 -- -- -- -- -- -- -- 90.7 kg (200 lb) 09/04/24 0419 -- -- -- -- -- 98 % -- -- 09/04/24 0405 135/50 36.3 ???C (97.3 ???F) Temporal 83 11 100 % -- -- 09/04/24 0326 -- -- -- 75 16 100 % -- -- 09/04/24 0030 103/59 36.3 ???C (97.4 ???F) Temporal 76 13 99 % -- -- 09/03/24 2319 -- -- -- -- -- 100 % -- -- 09/03/24 2211 113/84 -- -- 88 -- -- -- -- 09/03/242000 -- -- -- -- -- 100 % -- -- 09/03/241999 104/60 36.1 ???C (97 ???F) Temporal 88 16 100 % -- -- 09/03/24 1855 92/51 -- -- 101 19 98 % -- -- 09/03/24 1835 129/81 -- -- 96 19 100 % -- -- 09/03/24 1716 -- -- -- -- -- 100 % -- -- 09/03/24 1650 -- -- -- -- -- -- 1.6 m (5' 3 ) 90.7 kg (200 lb) 09/03/24 1630 121/59 36.1 ???C (96.9 ???F) Temporal 88 21 100 % -- -- Physical Examination: Physical Exam Constitutional: General: She is not in acute distress. Cardiovascular: Rate and Rhythm: Normal rate and regular rhythm. Pulmonary: Breath sounds: No wheezing. Abdominal: Tenderness: There is no abdominal tenderness. There is no guarding. Musculoskeletal: Right lower leg: Edema present. Left lower leg: Edema present. Neurological: Mental Status: She is alert and oriented to person, place, and time. Relevant Lab Results Encounter Date: 09/03/24 ECG 12 lead Result Value Ventricular Rate 93 Atrial Rate 93 ME Interval 138 QRS DURATION 76 QT Interval 354 QTC CALCULATION(BAZETT) 440 P Printer 69 R-Printer 35 T Wave Printer 45 Impression Sinus rhythm with frequent Premature ventricular complexes Low voltage QRS Borderline ECG When compared with ECG of 03-SEP-2024 16:56, No significant change was found Confirmed by Jamie Estevez ([id number]) on 09/03/2024 6:41:10 PM Lab Results Component Value Date TROPONINI 0.01 10/26/2022 No echocardiogram results found for the past 12 months No nuclear medicine results found for the past 12 months Relevant Imaging Results ECG 12 lead Sinus rhythm with frequent Premature ventricular complexes Low voltage QRS Borderline ECG When compared with ECG of 03-SEP-2024 16:56, No significant change was found Confirmed by Jamie Estevez ([id number]) on 09/03/2024 6:41:10 PM ECG 12 lead Sinus rhythm with frequent Premature ventricular complexes Low voltage QRS Borderline ECG When compared with ECG of 03-JUL-2024 07:56, Premature ventricular complexes are now Present Confirmed by Jamie Estevez ([id number]) on 09/03/2024 5:33:18 PM XR chest 1 view Narrative: XR CHEST 1 VIEW 09/03/2024 4:49 PM CLINICAL INDICATIONS: Pneumonia COMPARISON: 10/27/2022 FINDINGS: There is right lower lobe infiltration, new in comparison to prior exam, likely pneumonia. Left lung clear. No pneumothorax. Cardiac contour is stable. Impression: Right lower lobe infiltrate, likely pneumonia. Electronically signed: True Cheek. ASSESSMENT Acute hypoxic respiratory failure - Likely multifactorial including pneumonia in the setting of COPD, obesity, and an element of diastolic dysfunction Elevated troponin likely type 2 in the setting of pneumonia Right lower lobe pneumonia POLI on CKD Coronary artery disease of [place] artery History of acute inferior wall WI Essential hypertension Mixed hyperlipidemia Chronic obstructive pulmonary disease, unspecified COPD type Severe obesity (BMI 35.0-39.9) with comorbidity PLAN No need to repeat cardiac catheter as the patient already had cath in May 2024 showing patent stent in the RCA Discontinue heparin Echocardiogram show Global left ventricular systolic function is mildly reduced, with EF is 44 %. Left ventricular wall thickness is normal. The septum is abnormal in its motion. The right ventricle appears normal in size, and normal systolic function Her presentation looks to be non cardiac and likely driven by her pneumonia Continue cardiac medications including, Aspirin, Atorvastatin, Toprol XL, lasix Remainder of care as per primary team and other consultative services Cardiology team will respectfully sign off at this. Please do not hesitate to contact us for any further questions or concerns This note was, at least in part, completed using a voice parking lot signaler system. Every effort was made to ensure accuracy. However, inadvertent computerized parking lot signaler errors may be present. Zenobia Colon MD PGY-2 Internal Medicine Cardiology Consult Service [facility] MAGNESIUM Collected: 09/04/2024 4:17 AM Status: UN K Source: [facility] TYPE CODE TESTS RESULT OUT OF RANGE REFERENCE UNITS LAB [id number] MAGNESIUM (MG/DL) IN SER/PLAS 1.8 Low 1.9-2.7 mg/dL Performed By: #### [id number] ## ## [facility] ([facility]) [address] [place] [address] SEDIMENTATION RATE Collected: 09/04/2024 4:17 AM Sta tus: UNK Source: [facility] TYPE CODE TESTS RESULT OUT OF RANGE REFERENCE UNITS LAB [id number] SEDIMENTATION RATE, ERYTHROCYTE 21 <30 mm/hr Performed By: #### [id number] ## ## [facility] ([facility]) [address] [place] [address] BASIC METABOLIC PANEL Collected: 2024 4:17 AM Status: UNK Source: [facility] TYPE CODE TESTS RESULT OUT OF RANGE REFERENCE UNITS LAB [id number] SODIUM (MMOL/L) IN SER/PLAS 133 Low 136-145 mmol/L LAB [id number] POTASSIUM (MMOL/L) IN SER/PLAS 4.5 3.5-5.1 mmol/L LAB [id number] CHLORIDE (MMOL/L) IN SER/PLAS 105 98-107 mmol/L LAB [id number] CARBON DIOXIDE, TOTAL (MMOL/L) IN SER/PLAS 23 21-31 mmol/L LAB [id number] UREA NITROGEN (MG/DL) IN SER/PLAS 24 7-25 mg/dL LAB [id number] CREATININE (MG/DL) IN SER/PLAS 1.21 High 0.60-1.20 mg/dL LAB [id number] GLUCOSE (MG/DL) IN SER/PLAS 113 High 70-100 mg/dL LAB [id number] CALCIUM (MG/DL) IN SER/PLAS 7.7 Low 8.6-10.3 mg/dL LAB [id number] ANION GAP IN SER/PLAS 10 7-20 mmol/L LAB [id number] GLOMERULAR FILTRATION RATE ML/MIN/1.73 SQ M.PREDICTED 47.9 Low >60.0 mL/min/ 1.73m*2 Result Comment: [facility]???s estimated glomerular filtration rate (eGFR) will no [...] disproportionately affect any one group of individuals. LAB [id number] UREA NITROGEN/CREA TININE (MASS RATIO) IN SER/PLAS 19.8 NA Performed By: #### [id number] ### # [facility] ([facility]) [address] [place] [address] CBC Collected: 09/04/2024 4:17 AM Status: UN K Source: [facility] TYPE CODE TESTS RESULT OUT OF RANGE REFERENCE UNITS LAB [id number] LEUKOCYTES(10*3/ U L) IN BLOOD BY AUTOMATED COUNT 19.91 High 4.00-10.60 10*3/uL LAB [id number] ERYTHROCYTES (10*6/UL) IN BLOOD BY AUTOMATED COUNT 3.31 Low 3.80-5.00 10*6/uL LAB 9777084 HEMOGLOBIN (G/DL ) IN BLOOD 10.4 Low 12.0-15.0 g/dL LAB 8103849 HEMATOCRIT (%) I N BLOOD BY AUTOMATED COUNT 32.0 Low 36.0-45.0 % LAB 9852860 ERYTHROCYTE MEAN CORPUSCULAR VOLUME (FL) BY AUTOMATED COUNT 96.7 82.0-98.0 fL LAB 4507748 ERYTHROCYTE MEAN CORPUSCULAR HEMOGLOBIN (PG) BY AUTOMATED COUNT 31.4 27.0-33.0 pg LAB 6234436 ERYTHROCYTE MEAN CORPUSCULAR HEMOGLOBIN CONCENTRATION (G/DL) BY AUTOMATED 32.5 32.0-35.0 g/dL LAB [id number] ERYTHROCYTE DISTRIBUTION WIDTH (RATIO) BY AUTOMATED COUNT 14.0 11.5-15.0 % LAB 9097506 PLATELETS (10*3/UL) IN BLOOD AUTOMATED COUNT 227 150-400 10*3/uL Performed By: #### [id number] ## ## [facility] ([facility]) [address] [place] [address] HIGH SENSITIVITY TROPONIN I Collected: 09/04/2024 4:17 AM Status: UNK Source: [facility] TYPE CODE TESTS RESULT OUT OF RANGE REFERENCE UNITS LAB 3630 HS TROPONIN I (NG/L) 1053 High Alert <15 ng/L Performed By: #### [id number] # ### [facility] ([facility]) [address] [place] [address] ARTERIAL BLOOD GAS WITH IONIZED CALCIUM Collected: 09/04/2024 4:14 AM Status: UNK Source: [facility] TYPE CODE TESTS RESULT OUT OF RANGE REFERENCE UNITS LAB [id number] PH OF ARTERIAL BLOOD 7.36 7.35-7.45 pH LAB [id number] CARBON DIOXIDE (MM HG) IN ARTERIAL BLOOD 42 35-48 mmHg LAB [id number] OXYGEN (MM HG) IN ARTERIAL BLOOD 92 83-100 mmHg LAB [id number] BICARBONATE (MEQ/L) IN ARTERIAL BLOOD 23.7 21.0-28.0 mEq/L LAB [id number] CALCIUM IONIZED (MMOL/L) IN BLOOD 1.20 1.15-1.33 mmol/L LAB [id number] OXYGEN SATURATION (%) IN ARTERIAL BLOOD 97.9 94.0-98.0 % LAB [id number] BASE EXCESS (MMOL/L) IN ARTERIAL BLOOD BY CALCULATION -1.8 -2.0-3.0 mmol/L LAB [id number] SOURCE OF OXYGEN High flow nasal cannula LAB 827 FIO2 40 % Performed By: #### [id number] # ### [facility] RESPIRATORY THERAPY [address] [place] [address] [place] ANTI-XA (HEPARIN LEVEL) Collected: 09/04/2024 1:17 AM Status: UNK Source: [facility] Order Comment: Check anti-Xa level every 6 hours while on heparin infusion, or per protocol. TYPE CODE TESTS RESULT OUT OF RANGE REFERENCE UNITS LAB [id number] HEPARIN UNFRACTIONATED (U/ML) IN PPP BY CHROMOGENIC METHOD >1.00 High Alert 0.3-0.7 IU/mL Result Comment: Rivaroxaban and Apixaban will interfere with the anti Xa assay used to monitor UFH and LMWH. Performed By: #### [id number] ## ## [facility] ([facility]) [address] [place] [address] 30 Observed: 09/03/2024 11:29 PM Status: COMPLETED Source: [facility] Problem: Pain - Adult Goal: Verbalizes/displays adequate comfort level or baseline comfort level Outcome: Progressing Flowsheets (Taken 09/03/20241999) Verbalizes/displays adequate comfort level or baseline comfort level: Encourage patient to monitor pain and request assistance Assess pain using appropriate pain scale Administer analgesics based on type and severity of pain and evaluate response Implement non-pharmacological measures as appropriate and evaluate response Problem: Safety - Adult Goal: Free from fall injury Outcome: Progressing Flowsheets (Taken 09/03/20241999) Free from fall injury: Assess patient frequently for physical needs Identify cognitive and physical deficits and behaviors that affect risk of falls [place] fall precautions as indicated by assessment Educate patient/family on patient safety, including physical limitations Instruct patient to call for assistance with activity based on assessment Modify environment to reduce risk of injury Consider OT/PT consult to assist with strengthening/mobility Problem: Discharge Planning Goal: Discharge to home or other facility with appropriate resources Outcome: Progressing Flowsheets (Taken 09/03/20241999) Discharge to home or other facility with appropriate resources: Identify barriers to discharge with patient and caregiver Arrange for needed discharge resources and transportation as appropriate Identify discharge learning needs (meds, wound care, etc) Problem: Chronic Conditions and Co-morbidities Goal: Patient's chronic conditions and co-morbidity symptoms are monitored and maintained or improved Outcome: Progressing Flowsheets (Taken 09/03/20241999) Care Plan - Patient's Chronic Conditions and [...] and prevent overall improvement and discharge Problem: Respiratory - Adult Goal: Achieves optimal ventilation and oxygenation Outcome: Progressing Flowsheets (Taken 09/03/20241999) Achieves optimal ventilation and oxygenation: Assess for changes in respiratory status Assess for changes in mentation and behavior Position to facilitate oxygenation and minimize respiratory effort Oxygen supplementation based on oxygen saturation or arterial blood gases Respiratory therapy support as indicated Problem: Cardiovascular - Adult Goal: Maintains optimal cardiac output and hemodynamic stability Outcome: Progressing Flowsheets (Taken 09/03/20241999) Maintains optimal cardiac output and hemodynamic stability: Monitor blood pressure and heart rate Monitor urine output and notify Licensed Independent Practitioner for values outside of normal range Assess for signs of decreased cardiac output Problem: Skin/Tissue Integrity - Adult Goal: Skin integrity remains intact Outcome: Progressing Flowsheets (Taken 09/03/20241999) Skin integrity remains intact: Monitor for areas of redness and/or skin breakdown The patient is Moderately Stable - Low risk of patient condition declining or worsening The patient's goals for the shift include comfort The clinical goals for the shift include VSS; safety HIGH SENSITIVITY TROPONIN I Collected: 09/03/2024 11:18 PM Status: UNK Source: [facility] TYPE CODE TESTS RESULT OUT OF RANGE REFERENCE UNITS LAB 3630 HS TROPONIN I (NG/L) 1478 High Alert <15 ng/L Performed By: #### [id number] # ### [facility] ([facility]) [address] [place] [address] HIGH SENSITIVITY TROPONIN I Collected: 09/03/2024 9:20 PM Status: UNK Source: [facility] TYPE CODE TESTS RESULT OUT OF RANGE REFERENCE UNITS LAB 3630 HS TROPONIN I (NG/L) 1746 High Alert <15 ng/L Performed By: #### [id number] # ### [facility] ([facility]) [address] [place] [address] LIPOPROTEIN A (LPA) Collected: 09/03/2024 9:[address] atus: UNK Source: [facility] TYPE CODE TESTS RESULT OUT OF RANGE REFERENCE UNITS LAB [id number] LIPOPROTEIN A (MG/DL) IN SER/PLAS 33 High <=29 mg/dL Result Comment: Performed By : [employer] [address] [place], [place] [id number] Job Putter Up And Ticket Preparer: Amol Tran MD, PhD CLIA Number: [id number] Performed By: #### [id number] ## ## [facility]OR[facility]ORY ([facility]) [address] [place], [place] [id number] SPUTUM CULTURE Collected: 8:16 PM Status: UNK Source: [facility] Order Comment: Light Growth Colonies Consistent with Upper Respiratory Terrie TYPE CODE TESTS RESULT OUT OF RANGE REFERENCE UNITS LAB [id number] GRAM STAIN RESULT Result Comment: 10-25 Squamo us Epithelial Cells Per Low Power Field >25 Polys Per Low Power Field Few Gram positive cocci in pairs Performed By: #### [id number] ## ## [facility] ([facility]) [address] [place] [address] APTT Collected: 09/03/2024 5:33 PM Status: UN K Source: [facility] Order Comment: Baseline aPTT before initiating heparin infusion. TYPE CODE TESTS RESULT OUT OF RANGE REFERENCE UNITS LAB [id number] ACTIVATED PARTIA L THROMBOPLASTIN TIME IN PPP BY COAGULATION ASSAY 49.3 High 25.0-35.0 Seconds Result Comment: Clinical sig nificance of the APTT is questionable in the presence of heparin. Performed By: #### [id number] ## ## [facility] ([facility]) [address] [place] [address] MAGNESIUM Collected: 09/03/2024 5:09 PM Status: UN K Source: [facility] TYPE CODE TESTS RESULT OUT OF RANGE REFERENCE UNITS LAB [id number] MAGNESIUM (MG/DL) IN SER/PLAS 1.8 Low 1.9-2.7 mg/dL Performed By: #### [id number] ## ## [facility] ([facility]) [address] [place] [address] LIPID PANEL Collected: 09/03/2024 5:09 PM Status: UN K Source: [facility] TYPE CODE TESTS RESULT OUT OF RANGE REFERENCE UNITS LAB [id number] TRIGLYCERIDE (MG/DL) IN SER/PLAS 44 <150 mg/dL Result Comment: TRIGLYCERIDE REFERENCE RANGE: 20 YEARS AND OLDER CARDIOVASCULAR RISK LESS THAN 150 mg/dL LOW RISK 150 TO 199 mg/dL BORDERLINE RISK 200 mg/dL AND GREATER HIGH RISK LAB 3634509 CHOLESTEROL (MG/DL) IN SER/PLAS 125 120-200 mg/dL LAB 7716583 CHOLESTEROL IN LDL (MG/DL) IN SERUM OR PLASMA BY CALCULATION 46 0-160 mg/dL LAB 0331530 CHOLESTEROL IN HDL (MG/DL) IN SER/PLAS 70 23-92 mg/dL LAB 1926424 NON HDL CHOL. (LDL+VLDL) 55 NA LAB 3821743 TOTAL VLDL-C 9 0-40 mg/dL LAB 2481 CHOL/HDL 1.8 mg/dL Performed By: #### [id number] ### # [facility] ([facility]) [address] [place] [address] B-TYPE NATRIURETIC PEPTIDE Collected: 09/03/2024 5:09 PM Status: UNK Source: [facility] TYPE CODE TESTS RESULT OUT OF RANGE REFERENCE UNITS LAB [id number] NATRIURETIC PEPTIDE B (PG/ML) IN SER/PLAS 708 High 0-100 pg/mL Performed By: #### [id number] ## ## [facility] ([facility]) [address] [place] [address] LACTIC ACID WITH 4 HOUR REFLEX Collecte d: 09/03/2024 5:09 PM Status: UNK Source: [facility] TYPE CODE TESTS RESULT OUT OF RANGE REFERENCE UNITS LAB 8555469 LACTATE (MMOL/L) IN SER/PLAS 1.6 0.5-2.2 mmol/L Performed By: #### [id number] #### [facility] ([facility]) [address] [place] [address] CBC WITH AUTO DIFFERENTIAL Collected: 09/03/2024 5:09 PM Status: UNK Source: [facility] TYPE CODE TESTS RESULT OUT OF RANGE REFERENCE UNITS LAB [id number] LEUKOCYTES(10*3/ UL) IN BLOOD BY AUTOMATED COUNT 19.92 High 4.00-10.60 10*3/uL LAB 4140718 ERYTHROCYTES (10*6/UL) IN BLOOD BY AUTOMATED COUNT 3.95 3.80-5.00 10*6/uL LAB 1109200 HEMOGLOBIN (G/DL) IN BLOOD 12.3 12.0-15.0 g/dL LAB 2107547 HEMATOCRIT (%) IN BLOOD BY AUTOMATED COUNT 38.3 36.0-45.0 % LAB 2011465 ERYTHROCYTE MEAN CORPUSCULAR VOLUME (FL) BY AUTOMATED COUNT 97.0 82.0-98.0 fL LAB 7616031 ERYTHROCYTE MEAN CORPUSCULAR HEMOGLOBIN (PG) BY AUTOMATED COUNT 31.1 27.0-33.0 pg LAB 4349056 ERYTHROCYTE MEAN CORPUSCULAR HEMOGLOBIN CONCENTRATION (G/DL) BY AUTOMATED 32.1 32.0-35.0 g/dL LAB [id number] ERYTHROCYTE DISTRIBUTION WIDTH (RATIO) BY AUTOMATED COUNT 13.8 11.5-15.0 % LAB 2157123 NEUTROPHILS/100 LEUKOCYTES IN BLOOD BY AUTOMATED COUNT 93.3 High 40.0-72.0 % LAB 7319831 LYMPHOCYTES/100 LEUKOCYTES IN BLOOD BY AUTOMATED COUNT 1.4 Low 20.0-45.0 % LAB 3888526 MONOCYTES/100 LEUKOCYTES IN BLOOD BY AUTOMATED COUNT 3.4 Low 5.0-12.0 % LAB 4362767 EOSINOPHILS/100 LEUKOCYTES IN BLOOD BY AUTOMATED COUNT 1.2 0.0-6.0 % LAB 1381332 BASOPHILS/100 LEUKOCYTES IN BLOOD BY AUTOMATED COUNT 0.2 0.0-1.0 % LAB 4859560 NEUTROPHILS (10*3/UL) IN BLOOD BY AUTOMATED COUNT 18.60 High 1.60-7.60 10*3/uL LAB [id number] LYMPHOCYTES (10*3/UL) IN BLOOD BY AUTOMATED COUNT 0.28 Low 1.20-4.00 10*3/uL LAB 9259765 MONOCYTES (10*3/UL) IN BLOOD BY AUTOMATED COUNT 0.67 0.10-1.00 10*3/uL LAB 3525110 EOSINOPHILS (10*3/UL) IN BLOOD BY AUTOMATED COUNT 0.24 0.00-0.50 10*3/uL LAB [id number] BASOPHILS (10*3/UL) IN BLOOD BY AUTOMATED COUNT 0.03 0.00-0.20 10*3/uL LAB [id number] PLATELETS (10*3/UL) IN BLOOD AUTOMATED COUNT 272 150-400 10*3/uL LAB 254 NRBC (PER 100 WBCS) BY AUTOMATED COUNT 0.0 0 % LAB 1767 IMMATURE GRANULOCYTES/100 LEUKOCYTES IN BLOOD BY AUTOMATED COUNT 0.5 0.0-1.0 % LAB 1768 IMMATURE GRANULOCYTES (10*3/UL) IN BLOOD BY AUTOMATED COUNT 0.10 0.00-0.20 10*3/uL Performed By: #### [id number] # ### [facility] ([facility]) [address] [place] [address] HIGH SENSITIVITY TROPONIN I Collected: 09/03/2024 5:09 PM Status: UNK Source: [facility] TYPE CODE TESTS RESULT OUT OF RANGE REFERENCE UNITS LAB 3630 HS TROPONIN I (NG/L) 1891 High Alert <15 ng/L Performed By: #### [id number] # ### [facility] ([facility]) [address] [place] [address] COMPREHENSIVE METABOLIC PANEL Collected: 09/03/2024 5 :09 PM Status: UNK Source: [facility] TYPE CODE TESTS RESULT OUT OF RANGE REFERENCE UNITS LAB [id number] SODIUM (MMOL/L) IN SER/PLAS 134 Low 136-145 mmol/L LAB [id number] POTASSIUM (MMOL/ L) IN SER/PLAS 4.8 3.5-5.1 mmol/L LAB 7845251 CHLORIDE (MMOL/L ) IN SER/PLAS 103 98-107 mmol/L LAB 6338392 CARBON DIOXIDE, TOTAL (MMOL/L) IN SER/PLAS 25 21-31 mmol/L LAB 4019131 ANION GAP IN SER/PLAS 11 7-20 mmol/L LAB 5012054 UREA NITROGEN (MG/DL) IN SER/PLAS 29 High 7-25 mg/dL LAB 3606798 CREATININE (MG/D L) IN SER/PLAS 1.48 High 0.60-1.20 mg/dL LAB 0594960 UREA NITROGEN/CREATININ E (MASS RATIO) IN SER/PLAS 19.6 NA LAB 5487056 GLUCOSE (MG/DL) IN SER/PLAS 130 High 70-100 mg/dL LAB 4603834 CALCIUM (MG/DL) IN SER/PLAS 8.3 Low 8.6-10.3 mg/dL LAB 4173963 ASPARTATE AMINOTRANSFERASE (SGOT) (U/L) IN SER/PLAS 25 13-39 U/L LAB 2711286 ALANINE AMINOTRANSFERASE (SGPT) (U/L) IN SER/PLAS 19 7-52 U/L LAB [id number] ALKALINE PHOSPHATASE (U/L) IN SER/PLAS 54 34-104 U/L LAB [id number] PROTEIN (G/DL) I N SER/PLAS 6.0 6.0-8.3 g/dL LAB 9943468 ALBUMIN (G/DL) I N SER/PLAS 3.6 3.5-5.7 g/dL LAB 2693571 BILIRUBIN TOTAL (MG/DL) IN SER/PLAS 0.4 0.3-1.0 mg/dL LAB [id number] GLOMERULAR FILTRATION RATE ML/MIN/1.73 SQ M.PREDICTED 37.6 Low >60.0 mL/min /1.73m *2 Result Comment: [facility]???s estimated glomerular filtration rate (eGFR) will no [...] one group of individuals. Performed By: #### [id number] ### # [facility] ([facility]) [address] [place] [address] HEMOGLOBIN A1C Collected: 09/03/2024 5:09 PM Status: UNK Source: [facility] TYPE CODE TESTS RESULT OUT OF RANGE REFERENCE UNITS LAB 3993674 HEMOGLOBIN A1C/HEMOGLOBIN TOTAL IN BLOOD 6.6 High 4.0-6.0 % LAB 294 ESTIMATED AVERAGE GLUCOSE (MG/DL) IN BLOOD 143 mg/dL Performed By: #### [id number] ### # [facility] [address] [place] [address] 30 Observed: 09/03/2024 4:47 PM Status: COMPLETED Source: [facility] The patient is Moderately St able - Low risk of patient condition declining or worsening The patient's goals for the shift include Comfort The clinical goals for the shift include VSS, safety HP Observed: 09/03/2024 4:35 PM Status: COMPLETED Source: [facility] Hospital Medicine History and Physical 09/03/2024 5:56 PM THE HOSPITALIST TEAM PREFERS TO USE [employer] CHAT FOR COMMUNICATION 7AM-7PM. IF I DO NOT RESPOND WITHIN 15 MINUTES, PLEASE PAGE ME/CALL THROUGH THE CASEWORK MANAGER. FROM 7PM-7AM, PLEASE PAGE [phone](COVR) Chief Complaint Patient is direct admitted from [facility] with shortness of breath. History of Present Illness Chiara Eduardo is an 69 y.o. female who came from home with shortness of breath. Patient has history of COPD, quit smoking 2017, on Lasix 20 mg every other day, started having worsening shortness of breath, and acute on chronic abdominal pain last night, she presented to [facility], found to have right lower lobe pneumonia, with increasing troponin to 78.9, lactic of 3.2, patient was started on heparin drip, antibiotics, and was sent to [facility] for further workup. At time of arrival around 5 PM, patient was lying in bed, on nonrebreather, satting 100%, complaining of mild lower abdominal pain, no chest pain, cough, palpitation, or any other related symptoms. Review of System and Physical Exam Temp: [36.1 ???C (96.9 ???F)] 36.1 ???C (96.9 ???F) Heart Rate: [88] 88 Resp: [21] 21 BP: (121)/(59) 121/59 FiO2 (%): [80 %] 80 % Physical Exam Constitutional: Appearance: Normal appearance. Cardiovascular: Rate and Rhythm: Normal rate and regular rhythm. Pulmonary: Comments: decreased breath sound bilaterally, more diminished on rightt lower lobe, with intermittent rhonchi Abdominal: General: Abdomen is flat. Palpations: Abdomen is soft. Musculoskeletal: Right lower leg: Edema present. Left lower leg: Edema present. Neurological: General: No focal deficit present. Mental Status: She is alert and oriented to person, place, and time. Review of Systems All other systems reviewed and are negative. Problem List Patient Active Problem List Diagnosis Date Noted Non-sustained ventricular tachycardia ([facility]) 11/17/2022 NSTEMI (non-ST elevated myocardial infarction) ([facility]) 09/03/2024 Pneumonia 09/03/2024 Acute hypoxic respiratory failure ([facility]) 09/03/2024 CRP elevated 07/26/2024 Elevated WBC count 07/26/2024 Body mass index (BMI) 35.0-35.9, adult 06/08/2024 Irregular heartbeat 04/18/2024 Stage 3a chronic kidney disease ([facility]) 04/12/2023 Multiple pulmonary nodules 03/02/2023 PVC (premature ventricular contraction) 12/31/2022 History of tobacco use 12/28/2022 Other halfway (current) 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 12/28/2022 Anemia 10/27/2022 Hypomagnesemia 10/27/2022 Hyponatremia 10/27/2022 Arrhythmia 10/26/2022 Former smoker 01/22/2020 Health care maintenance 01/22/2020 Diuretic-induced hypokalemia 01/16/2018 History of acute inferior wall [place] 01/13/2018 Bladder prolapse, female, acquired 12/28/2016 Chronic GERD 12/28/2016 COPD (chronic obstructive pulmonary disease) ([facility]) 12/28/2016 Coronary artery disease involving [place] coronary artery of [place] heart without angina pectoris 12/28/2016 Lower back pain 12/28/2016 Severe obesity (BMI 35.0-39.9) with comorbidity ([facility]) 12/28/2016 Shortness of breath 12/28/2016 Essential hypertension 12/14/2016 Mixed hyperlipidemia 12/14/2016 Angina pectoris, unstable ([facility]) 06/15/2024 Chest pain 07/08/2022 Assessment and Plan # Acute hypoxic respiratory failure # Pneumonia - Patient requiring nonrebreather upon arrival to [facility], will get ABG, switch to high flow nasal cannula - Due to to pneumonia, there is also component of heart failure -Chest x-ray at [facility] showed right lower lobe pneumonia, unfortunately images are not available, will get portable chest x-ray to see the extent of the pneumonia - Patient is on Lasix 20 mg every other day, switch to 40 mg daily, monitor I's and O's and daily weight. - Continue with DuoNebs as needed - If the patient is retaining on ABG we will switch to NIV -Trend lactic acid Check sputum culture. # NSTEMI - Troponin trending up, on presentation was 8.5 then up to 78.9 at [facility], with no acute ST changes. - Keep the patient heparin drip, consult cardiology. -Keep trending troponin. -She is following up with Dr. Ward as outpatient # COPD - Currently on Briztri at home, not on home oxygen. VTE Prophylaxis: IV heparin ----- Focus of this inpatient stay will remain on problems that need acute care setting for care. We will review available studies and will order additional labs, imaging and other studies as appropriate. As needed medicines are ordered as appropriate. VTE Prophylaxis will be ordered as appropriate. Please see above for management plan for individual hospital problems. Home medications are reviewed and will be continued as appropriate. Patient will be continued to be followed during this hospital stay by a member of [facility]. Past Medical History Past Medical History: Diagnosis Date Abnormal ECG Chronic GERD 12/28/2016 Chronic kidney disease COPD (chronic obstructive pulmonary disease) ([facility]) Coronary artery disease Coronary artery disease involving [place] coronary artery of [place] heart without angina pectoris 12/28/2016 Essential hypertension 12/14/2016 Hyperlipidemia Lower back pain 12/28/2016 Mixed hyperlipidemia 12/14/2016 Shortness of breath 12/28/2016 Past Surgical History Past Surgical History: Procedure Laterality Date CARDIAC CATHETERIZATION CHOLECYSTECTOMY CORONARY STENT PLACEMENT HYSTERECTOMY Social History Social History Socioeconomic History Marital status: Spouse name: Not on file Number of children: Not on file Years of education: Not on file Highest education level: Not on file Occupational History Not on file Tobacco Use Smoking status: Former Types: Cigarettes Smokeless tobacco: Never Substance and Sexual Activity Alcohol use: Yes Comment: occaisonal Drug use: Never Sexual activity: Defer Other Topics Concern Not on file Social History Narrative Not on file Social Determinants of Health Financial Resource Strain: Low Risk (09/03/2024) Overall Financial Resource Strain (CARDIA) Difficulty of Paying Living Expenses: Not very hard Food Insecurity: Food Insecurity Present (09/03/2024) Hunger Vital Sign Worried About Running Out of Food in the Last Year: Sometimes true Ran Out of Food in the Last Year: Not on file Transportation Needs: No Transportation Needs (09/03/2024) Transportation Lack of Transportation (Medical): No Lack of Transportation (Non-Medical): Not on file Physical Activity: Sufficiently Active (06/08/2024) Received from [facility] Exercise Vital Sign Days of Exercise per Week: 4 days Minutes of Exercise per Session: 50 min Stress: No Stress Concern Present (06/08/2024) Received from [facility] [place] [employer] - Occupational Stress Questionnaire Feeling of Stress : Only a little Social Connections: Unknown (06/08/2024) Received from [facility] Social Connection and Isolation Panel [NHANES] Frequency of Communication with Friends and Family: Once a week Frequency of Social Gatherings with Friends and Family: Not on file Attends [employer] Services: 1 to 4 times per year Active Member of Clubs or Organizations: No Attends Club or Organization Meetings: Never Marital Status: Intimate Partner Violence: Unknown (09/03/2024) Humiliation, Afraid, Rape, and Kick questionnaire Fear of Current or Ex-Partner: No Emotionally Abused: Not on file Physically Abused: Not on file Sexually Abused: Not on file Housing Stability: Low Risk (09/03/2024) Housing Stability Vital Sign Unable to Pay for Housing in the Last Year: No Number of Times Moved in the Last Year: Not on file Homeless in the Last Year: No Family History family history includes Coronary artery disease in her paternal grandfather; Kidney disease in her father; Stroke in her mother. Allergies is allergic to clopidogrel, hydrochlorothiazide, penicillins, sodium chloride, sulfa (sulfonamide antibiotics), and vancomycin. Prior to Admission Medications Medications Prior to Admission Medication Sig Dispense Refill Last Dose albuterol 90 mcg/actuation inhaler Inhale 2 puffs every 4 (four) hours if needed for shortness of breath. aspirin 81 mg EC tablet Take 81 mg by mouth in the morning. atorvastatin (Lipitor) 80 mg tablet Take 1 tablet (80 mg) by mouth in the morning. 90 tablet 3 wjvcyieuow-aknaumse-gmaspcqugn (Breztri Aerosphere) 160-9-4.8 mcg/actuation HFA aerosol inhaler Inhale 160 mcg in the morning. cholecalciferol (Vitamin D-3) 50 MCG (2000 UT) tablet Take 2,000 Units by mouth in the morning. cyclobenzaprine (Flexeril) 10 mg tablet Take 10 mg by mouth if needed in the morning, at noon, and at bedtime for muscle spasms. dapagliflozin propanediol (Farxiga) 10 mg Take 1 tablet (10 mg) by mouth in the morning. 30 tablet 3 dupilumab (Dupixent Syringe) 100 mg/0.67 mL syringe Inject 300 mg under the skin every 14 (fourteen) days. fluticasone propion-salmeteroL (Advair Diskus) 250-50 mcg/dose diskus inhaler Inhale 1 puff two times daily. furosemide (Lasix) 20 mg tablet Take 1 tablet (20 mg) by mouth every other day. 15 tablet 0 ipratropium-albuteroL (Duo-Neb) 0.5-2.5 mg/3 mL nebulizer solution Take 3 mL by nebulization 4 times a day. isosorbide mononitrate ER (Imdur) 60 mg 24 hr tablet Take 1 tablet (60 mg) by mouth once daily as directed. Do not crush or chew. 30 tablet 3 magnesium 200 mg tablet Take 1 tablet by mouth in the morning. metoprolol succinate XL (Toprol-XL) 50 mg 24 hr tablet Take 1 tablet (50 mg) by mouth two times daily. Do not crush or chew. 60 tablet 0 olmesartan (BENIcar) 40 mg tablet Take 1 tablet (40 mg) by mouth once daily as directed. 90 tablet 3 omeprazole (PriLOSEC) [address] capsule Take 20 mg by mouth before breakfast. predniSONE (Deltasone) 10 mg tablet Take 10 mg by mouth in the morning. Trelegy Ellipta 100-62.5-25 mcg blister with device Inhale 1 puff in the morning. Labs Labs Reviewed CBC WITH AUTO DIFFERENTIAL - Abnormal Result Value Auto WBC 19.92 (*) RBC 3.95 Hemoglobin 12.3 Hematocrit 38.3 MCV 97.0 MCH 31.1 MCHC 32.1 RDW 13.8 Neutrophils % 93.3 (*) Lymphocytes % 1.4 (*) Monocytes % 3.4 (*) Eosinophils % 1.2 Basophils % 0.2 Neutrophils Absolute 18.60 (*) Lymphocytes Absolute 0.28 (*) Monocytes Absolute 0.67 Eosinophils Absolute 0.24 Basophils Absolute 0.03 Platelets 272 nRBC % 0.0 Immature Granulocytes % 0.5 Immature Granulocytes Absolute 0.10 SPUTUM CULTURE CBC AND DIFFERENTIAL Narrative: The following orders were created for panel order CBC and differential. Procedure Abnormality Status --------- ------ CBC auto differential[[id number]] Abnormal Final result Please view results for these tests on the individual orders. COMPREHENSIVE METABOLIC PANEL MAGNESIUM LACTIC ACID WITH 4 HOUR REFLEX HIGH SENSITIVITY TROPONIN I B-TYPE NATRIURETIC PEPTIDE ARTERIAL BLOOD GAS WITH IONIZED CALCIUM ANTI-XA (HEPARIN LEVEL) APTT Imaging ECG 12 lead Sinus rhythm with frequent Premature ventricular complexes Low voltage QRS Borderline ECG When compared with ECG of 03-JUL-2024 07:56, Premature ventricular complexes are now Present Confirmed by Jamie Estevez ([id number]) on 09/03/2024 5:33:18 PM XR chest 1 view Narrative: XR CHEST 1 VIEW 09/03/2024 4:49 PM CLINICAL INDICATIONS: Pneumonia COMPARISON: 10/27/2022 FINDINGS: There is right lower lobe infiltration, new in comparison to prior exam, likely pneumonia. Left lung clear. No pneumothorax. Cardiac contour is stable. Impression: Right lower lobe infiltrate, likely pneumonia. Electronically signed: [employer]. Signed Jenny Roblero MD [facility] 09/03/2024 5:56 PM OFFICE VISIT Observed: 08/01/2024 11:15 AM Status: COMPLETED Source: [facility] [id number] Chiara Eduardo 1955 F Date Provider Department Center 08/01/2024 [id number], EHAB BH CARD [facility] Family History Problem Relation Age of Onset Stroke Mother Kidney disease Father Coronary artery disease Paternal Grandfather Family Status - Relation Status Age at Mother Father Paternal Grandfather Level of Service:52516 ME OFFICE/OUTPATIENT ESTABLISHED LOW MDM 20 MIN PROGRESS Observed: 08/01/2024 11:15 AM Status: COMPLETED Source: [facility] Cardiology Clinic Note Chief Complaint: Patient here for follow up heart cath and Dr. Coughlin office visit. Patient states she has no cardiac complaints. HPI: Chiara Eduardo is a 69 y.o. female with a history of coronary artery disease, prior stent placement, COPD, nonsustained ventricular tachycardia here due to worsening symptoms. For the past several months, she has noticed worsening shortness of breath. Her manager asset adjusted her inhalers but this does not [...] kidney disease, COPD (chronic obstructive pulmonary disease) ([facility]), Coronary artery disease, Coronary artery disease involving [place] coronary artery of [place] heart without angina pectoris (12/28/2016), Essential hypertension [...] alert and oriented x3, well developed, in no acute distress. HEAD: atraumatic, normocephalic. EYES: JESSICA, EOMI. NECK: trachea midline, no JVD present, no carotid bruits present. CARDIAC: S1, S2 present. RRR. No murmur, rubs, or gallops. RESPIRATORY: CTAB, no increased effort of breathing, no rales, rhonchi, or wheezing. ABDOMEN: soft, nontender, nondistended. EXTREMITIES: no lower extremity edema, peripheral pulses are 2+ bilaterally. No rash/skin discoloration present. NEURO: strength/sensation equal and symmetric in bilateral upper and lower extremities. PSYCH: appropriate mood, affect, and judgement. Labs: Labs 10/31/2022 sodium 128, K3.8, BUN 18, creatinine 1.07, GFR 56 point, iron less than 10 EKG: No results found for this or any previous visit (from the past 4464 hour(s)). Echo: 10/27/22 TTE Findings Left Ventricle: The left ventricle is normal size. Global left ventricular systolic function is at lower limits of normal. The EF is 50 % visually. Left ventricular wall thickness is normal. Unable to assess segmental wall motion abnormalities due to poor sound transmission. Unable to assess diastolic dysfunction. Right Ventricle: The right ventricle appears normal in size. Right ventricular systolic function appears normal. Doppler studies suggest normal right sided pressures. Left Atrium: The left atrium is normal in size. Right Atrium: The right atrium is normal in size. Mitral Valve: Mitral valve appears normal. Trivial mitral regurgitation. Aortic Valve: Mild aortic cusp calcification is noted. Trivial aortic valve regurgitation. Tricuspid Valve: Normal tricuspid valve. Trivial tricuspid regurgitation. Pulmonic Valve: Pulmonary valve appears normal. No pulmonary regurgitation. Aorta: The aortic root is normal in size. Great Vessels: IVC: Normal size and course of the IVC. Pericardium: No pericardial effusion. Stress test: Coronary angiogram: 10/30/22 Final Impressions: -Previously placed stents in RCA patent and with mild ISR -Mild non obstructive disease of the left anterior descending and left circumflex coronary arteries -Normal right sided pressures Recommendations: -DAPT for at least 1 year following placement of RCA stent, followed by Aspirin 81 mg daily indefinitely. High intensity statin therapy -Optimization of medical management -Aggressive risk factor modification -EP evaluation/management of frequent PVCs, NSVT -Further recommendations as per inpatient Cardiology consult service 07/14/22 FINAL IMPRESSIONS: Severe, discrete, stenosis of the distal right coronary artery successfully treated by balloon angioplasty and Synergy drug-eluting stent placement Patent stent in the mid right coronary artery with mild in-stent restenosis Mild disease of the left anterior descending and left circumflex coronary arteries Mildly elevated right-sided filling pressures and wedge pressure Normal cardiac output/cardiac index RECOMMENDATIONS: Aspirin 81 mg lifelong Brilinta 90 mg p.o. twice daily for a minimum of 6 months; the patient has an allergy to Plavix. Aggressive cardiovascular factor modification Optimal medical therapy for coronary artery disease including dual antiplatelet therapy, moderate to high intensity statin therapy, a beta-shyam, plus or minus an angiotensin-converting enzyme inhibitor An outpatient echocardiogram will be performed Should the patient's shortness of breath not improve after coronary revascularization, would highly recommend pulmonary function tests and evaluation for pulmonary etiologies for her dyspnea Follow-up with Dr. Ward in the next 1 to 2 months Follow-up with her family physician as scheduled Echocardiogram-[facility] Name: CHIARA EDUARDO Study Date: 10/27/2022 08:24 AM B/P: 147 mmHg/73 mmHg HR: Date of : 1955 Location: [facility] Height: 63.5 in. Age: 67 year(s) Patient Room : 3116 Weight: 207 lb. Gender: Female Patient Status: InPt BSA: 1.97 m2 Indication: Frequent PVC's, Edema, Shortness of Breath, S/P PCI (06/2022) Examination: Echocardiogram (Complete) Image Quality: Fair Patient Consent: Procedure explained to patient s p @ c 3 Conclusions Left Ventricle: The left ventricle is normal size. Global left ventricular systolic function is at lower limits of normal. The EF is 50 % visually. Left ventricular wall thickness is normal. Unable to assess segmental wall motion abnormalities due to poor sound transmission. Unable to assess diastolic dysfunction. Right Ventricle: The right ventricle appears normal in size. Right ventricular systolic function appears normal. Doppler studies suggest normal right sided pressures. Left Atrium: The left atrium is normal in size. Overall Conclusions: No significant valvular abnormalities Given poor endocardial definition and rhythm abnormalities (frequent PVCs and bigeminy) the EF is difficult to estimate. Recommend repeating the study using echo contrast. Conclusion Cardiovascular Laboratory Report FINAL IMPRESSIONS: Patent stents [...] of breath namely pulmonary Follow-up with Dr. 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 She is to follow-up on her abnormal labs with her primary care provider Follow-up with EP given nonsustained VT Treat noncardiac comorbidities particular pulmonary as appropriate Follow-up in 6 months or sooner should problems arise Abby Ward MD, MPH, [facility], [facility], [facility] Interventional Cardiology Pager Email: [email or web address] URINE CULTURE Observed: 07/26/2024 11:53 AM Status: F Source: [facility] 50,000 colonies/ml mixed bacterial skin contaminants 2 Days PERFORMED BY: [address] [place] [address] PATHOLOGIST REAL ESTATE REP LETICIA KAHN M.D. Performed By: #### CUU #### [address] [place] [address] [facility] 36 Observed: 07/25/2024 4:42 PM Status: COMPLETED Source: [facility] Regarding labs from MD Oralia Luevano MA The patient's white [...] will still call her PCP on 07/26/2024 TELEPHONE Observed: 07/25/2024 12:00 AM Status: COMPLETED Source: [facility] [id number] Chiara Eduardo 0 1955 F Date Provider Department Center 07/25/2024 [id number]-MNEXTVSHTJORALIA HARRISON [facility] Family History Problem Relation Age of Onset Stroke Mother Kidney disease Father Coronary artery disease Paternal Grandfather Family Status - Relation Status Age at Mother Father Paternal Grandfather NURSNOTE Observed: 07/03/2024 1:34 PM Status: COMPLETED Source: [facility] RN educated pt on d/c instru ctions. This included: site care, limited physical activity, [...] off of unit with all of belongings. PROGRESS Observed: 07/03/2024 12:22 PM Status: COMPLETED Source: [facility] IV fluid bolus at 999ml per hr started. Patient states feeling lightheaded. Placed in reverse trendelenburg. States feels better with change in position ANES Observed: 07/03/2024 8:29 AM Status: COMPLETED Source: [facility] Attestation signed by Abby Ward MD at 07/03/2024 9:27 AM Abby Ward MD, MPH, [facility], [facility], [facility] Interventional Cardiology Pager Email: [email or web address] Patient: Chiara Eduardo Procedure Information Date/Time: 07/03/24 1030 Procedures: Coronary angiography - PC APPROVED 06/16-09/13 R IJ Farzaneh MAO Right heart cath Location: [facility] WASH OPERATOR 3 / [facility] (Cath) Providers: Abby Ward MD Clinical information reviewed: Tobacco Allergies Meds [...] Plan discussed with attending. Additional Equipment Requests HP Observed: 07/03/2024 8:29 AM Status: COMPLETED Source: [facility] Attestation signed by Abby Ward MD at 07/03/2024 9:27 AM Abby Ward MD, MPH, [facility], [facility], [facility] Interventional Cardiology Pager Email: [email or web address] H&P reviewed. The patient was examined and there are no changes to the H&P. Proceed with CORS + RHC Geo Laboy MD PGY-5 Drum Barker Operator [facility] Pager # [phone] NURSNOTE Observed: 07/03/2024 8:08 AM Status: COMPLETED Source: [facility] Per Dr. Medrano patient to ge t LR at 100ml per hr for pre cath hydration [place] Observed: 06/26/2024 12:55 PM Status: COMPLETED Source: [facility] Dr. Ward made aware - robert hamilton is coming for R/Cors on 07/03/24 (procedure at 10:30am). She had labs on 06/26/2024. BUN 23 (normal 7.0-18.0), creat 1.34 (normal 0.55-1.02). She has a history of CKD (per her clinic note). OFFICE VISIT Observed: 06/15/2024 11:00 AM Status: COMPLETED Source: [facility] [id number] Chiara Eduardo 0 1955 F Date Provider Department Center 06/15/2024 271-KELLIVISHALCHRISS EHAB BH CARD [facility] Family History Problem Relation Age of Onset Stroke Mother Kidney disease Father Coronary artery disease Paternal Grandfather Family Status - Relation Status Age at Mother Father Paternal Grandfather Level of Service:99079 ME OFFICE/OUTPATIENT ESTABLISHED HIGH MDM 40 MIN PROGRESS Observed: 06/15/2024 11:00 AM Status: COMPLETED Source: [facility] Cardiology Clinic Note Chief Complaint: Patient here [...] has noticed worsening shortness of breath. Her manager asset adjusted her inhalers but this does not [...] kidney disease, COPD (chronic obstructive pulmonary disease) ([facility]), Coronary artery disease, Coronary artery disease involving [place] coronary artery of [place] heart without angina pectoris (12/28/2016), Essential hypertension [...] Disp: , Rfl: prasugrel (Effient) 10 mg tablet, Take 1 tablet (10 mg) by mouth once daily as directed., Disp: 180 tablet, Rfl: 0 predniSONE (Deltasone) 10 mg tablet, Take 10 mg by mouth in the morning., Disp: , Rfl: ranolazine (Ranexa) 500 mg 12 hr tablet, Take 1 tablet (500 mg) by mouth two times daily. Do not crush, chew, or split., Disp: 180 tablet, Rfl: 3 Spiriva Respimat 2.5 mcg/actuation inhaler, INHALE 2 PUFFS BY MOUTH EVERY DAY, Disp: , Rfl: Last Recorded Vitals BP 146/80 (BP Location: Left arm, Patient Position: Sitting) Pulse 61 Ht 1.6 m (5' 3 ) Wt 89.8 kg (198 lb) SpO2 98% BMI 35.07 kg/m??? Physical Examination: GENERAL: alert and oriented x3, well developed, in no acute distress. HEAD: atraumatic, normocephalic. EYES: JESSICA, EOMI. NECK: trachea midline, no JVD present, no carotid bruits present. CARDIAC: S1, S2 present. RRR. No murmur, rubs, or gallops. RESPIRATORY: CTAB, no increased effort of breathing, no rales, rhonchi, or wheezing. ABDOMEN: soft, nontender, nondistended. EXTREMITIES: no lower extremity edema, peripheral pulses are 2+ bilaterally. No rash/skin discoloration present. NEURO: strength/sensation equal and symmetric in bilateral upper and lower extremities. PSYCH: appropriate mood, affect, and judgement. Labs: Labs 10/31/2022 sodium 128, K3.8, BUN 18, creatinine 1.07, GFR 56 point, iron less than 10 EKG: No results found for this or any previous visit (from the past 4464 hour(s)). Echo: 10/27/22 TTE Findings Left Ventricle: The left ventricle is normal size. Global left ventricular systolic function is at lower limits of normal. The EF is 50 % visually. Left ventricular wall thickness is normal. Unable to assess segmental wall motion abnormalities due to poor sound transmission. Unable to assess diastolic dysfunction. Right Ventricle: The right ventricle appears normal in size. Right ventricular systolic function appears normal. Doppler studies suggest normal right sided pressures. Left Atrium: The left atrium is normal in size. Right Atrium: The right atrium is normal in size. Mitral Valve: Mitral valve appears normal. Trivial mitral regurgitation. Aortic Valve: Mild aortic cusp calcification is noted. Trivial aortic valve regurgitation. Tricuspid Valve: Normal tricuspid valve. Trivial tricuspid regurgitation. Pulmonic Valve: Pulmonary valve appears normal. No pulmonary regurgitation. Aorta: The aortic root is normal in size. Great Vessels: IVC: Normal size and course of the IVC. Pericardium: No pericardial effusion. Stress test: Coronary angiogram: 10/30/22 Final Impressions: -Previously placed stents in RCA patent and with mild ISR -Mild non obstructive disease of the left anterior descending and left circumflex coronary arteries -Normal right sided pressures Recommendations: -DAPT for at least 1 year following placement of RCA stent, followed by Aspirin 81 mg daily indefinitely. High intensity statin therapy -Optimization of medical management -Aggressive risk factor modification -EP evaluation/management of frequent PVCs, NSVT -Further recommendations as per inpatient Cardiology consult service 07/14/22 FINAL IMPRESSIONS: Severe, discrete, stenosis of the distal right coronary artery successfully treated by balloon angioplasty and Synergy drug-eluting stent placement Patent stent in the mid right coronary artery with mild in-stent restenosis Mild disease of the left anterior descending and left circumflex coronary arteries Mildly elevated right-sided filling pressures and wedge pressure Normal cardiac output/cardiac index RECOMMENDATIONS: Aspirin 81 mg lifelong Brilinta 90 mg p.o. twice daily for a minimum of 6 months; the patient has an allergy to Plavix. Aggressive cardiovascular factor modification Optimal medical therapy for coronary artery disease including dual antiplatelet therapy, moderate to high intensity statin therapy, a beta-shyam, plus or minus an angiotensin-converting enzyme inhibitor An outpatient echocardiogram will be performed Should the patient's shortness of breath not improve after coronary revascularization, would highly recommend pulmonary function tests and evaluation for pulmonary etiologies for her dyspnea Follow-up with Dr. 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 Essential hypertension - Uncontrolled Mixed hyperlipidemia Chronic obstructive pulmonary disease, unspecified COPD type ([facility]-HCC) Severe obesity (BMI 35.0-39.9) with comorbidity ([facility]) CKD Plan: Given her worsening shortness of breath, difficulty differentiating pulmonary from cardiac etiologies, and the lack of clear-cut chest pain prior to previous percutaneous interventions, I recommended proceeding with right heart catheterization and invasive coronary angiography via a RIJ and L radial approach She has had stress tests in the past that have been normal despite discovery of significant coronary disease on subsequent cardiac caths; therefore, I do not believe stress testing would be very useful in this situation. She is to continue her current medical regimen which includes aspirin, high intensity statin, a beta-shyam, and an ARB I have asked her to discontinue Ranexa; this has not helped and if anything she feels more short of breath while on it Further recommendations pending the cardiac catheterization Abby Ward MD, MPH, FACC, [facility], [facility] Interventional Cardiology Pager Email: [email or web address] HP Observed: 06/15/2024 11:00 AM Status: COMPLETED Source: [facility] Cardiology Clinic Note Chief Complaint: Patient here [...] has noticed worsening shortness of breath. Her manager asset adjusted her inhalers but this does not [...] kidney disease, COPD (chronic obstructive pulmonary disease) ([facility]), Coronary artery disease, Coronary artery disease involving [place] coronary artery of [place] heart without angina pectoris (12/28/2016), Essential hypertension [...] Disp: , Rfl: prasugrel (Effient) 10 mg tablet, Take 1 tablet (10 mg) by mouth once daily as directed., Disp: 180 tablet, Rfl: 0 predniSONE (Deltasone) 10 mg tablet, Take 10 mg by mouth in the morning., Disp: , Rfl: ranolazine (Ranexa) 500 mg 12 hr tablet, Take 1 tablet (500 mg) by mouth two times daily. Do not crush, chew, or split., Disp: 180 tablet, Rfl: 3 Spiriva Respimat 2.5 mcg/actuation inhaler, INHALE 2 PUFFS BY MOUTH EVERY DAY, Disp: , Rfl: Last Recorded Vitals BP 146/80 (BP Location: Left arm, Patient Position: Sitting) Pulse 61 Ht 1.6 m (5' 3 ) Wt 89.8 kg (198 lb) SpO2 98% BMI 35.07 kg/m??? Physical Examination: GENERAL: alert and oriented x3, well developed, in no acute distress. HEAD: atraumatic, normocephalic. EYES: JESSICA, EOMI. NECK: trachea midline, no JVD present, no carotid bruits present. CARDIAC: S1, S2 present. RRR. No murmur, rubs, or gallops. RESPIRATORY: CTAB, no increased effort of breathing, no rales, rhonchi, or wheezing. ABDOMEN: soft, nontender, nondistended. EXTREMITIES: no lower extremity edema, peripheral pulses are 2+ bilaterally. No rash/skin discoloration present. NEURO: strength/sensation equal and symmetric in bilateral upper and lower extremities. PSYCH: appropriate mood, affect, and judgement. Labs: Labs 10/31/2022 sodium 128, K3.8, BUN 18, creatinine 1.07, GFR 56 point, iron less than 10 EKG: No results found for this or any previous visit (from the past 4464 hour(s)). Echo: 10/27/22 TTE Findings Left Ventricle: The left ventricle is normal size. Global left ventricular systolic function is at lower limits of normal. The EF is 50 % visually. Left ventricular wall thickness is normal. Unable to assess segmental wall motion abnormalities due to poor sound transmission. Unable to assess diastolic dysfunction. Right Ventricle: The right ventricle appears normal in size. Right ventricular systolic function appears normal. Doppler studies suggest normal right sided pressures. Left Atrium: The left atrium is normal in size. Right Atrium: The right atrium is normal in size. Mitral Valve: Mitral valve appears normal. Trivial mitral regurgitation. Aortic Valve: Mild aortic cusp calcification is noted. Trivial aortic valve regurgitation. Tricuspid Valve: Normal tricuspid valve. Trivial tricuspid regurgitation. Pulmonic Valve: Pulmonary valve appears normal. No pulmonary regurgitation. Aorta: The aortic root is normal in size. Great Vessels: IVC: Normal size and course of the IVC. Pericardium: No pericardial effusion. Stress test: Coronary angiogram: 10/30/22 Final Impressions: -Previously placed stents in RCA patent and with mild ISR -Mild non obstructive disease of the left anterior descending and left circumflex coronary arteries -Normal right sided pressures Recommendations: -DAPT for at least 1 year following placement of RCA stent, followed by Aspirin 81 mg daily indefinitely. High intensity statin therapy -Optimization of medical management -Aggressive risk factor modification -EP evaluation/management of frequent PVCs, NSVT -Further recommendations as per inpatient Cardiology consult service 07/14/22 FINAL IMPRESSIONS: Severe, discrete, stenosis of the distal right coronary artery successfully treated by balloon angioplasty and Synergy drug-eluting stent placement Patent stent in the mid right coronary artery with mild in-stent restenosis Mild disease of the left anterior descending and left circumflex coronary arteries Mildly elevated right-sided filling pressures and wedge pressure Normal cardiac output/cardiac index RECOMMENDATIONS: Aspirin 81 mg lifelong Brilinta 90 mg p.o. twice daily for a minimum of 6 months; the patient has an allergy to Plavix. Aggressive cardiovascular factor modification Optimal medical therapy for coronary artery disease including dual antiplatelet therapy, moderate to high intensity statin therapy, a beta-shyam, plus or minus an angiotensin-converting enzyme inhibitor An outpatient echocardiogram will be performed Should the patient's shortness of breath not improve after coronary revascularization, would highly recommend pulmonary function tests and evaluation for pulmonary etiologies for her dyspnea Follow-up with Dr. 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 Essential hypertension - Uncontrolled Mixed hyperlipidemia Chronic obstructive pulmonary disease, unspecified COPD type ([facility]) Severe obesity (BMI 35.0-39.9) with comorbidity ([facility]) CKD Plan: Given her worsening shortness of breath, difficulty differentiating pulmonary from cardiac etiologies, and the lack of clear-cut chest pain prior to previous percutaneous interventions, I recommended proceeding with right heart catheterization and invasive coronary angiography via a RIJ and L radial approach She has had stress tests in the past that have been normal despite discovery of significant coronary disease on subsequent cardiac caths; therefore, I do not believe stress testing would be very useful in this situation. She is to continue her current medical regimen which includes aspirin, high intensity statin, a beta-shyam, and an ARB I have asked her to discontinue Ranexa; this has not helped and if anything she feels more short of breath while on it Further recommendations pending the cardiac catheterization Abby Ward MD, MPH, [facility], [facility], [facility] Interventional Cardiology Pager Email: [email or web address] ONLY Observed: 06/15/2024 12:00 AM Status: COMPLETED Source: [facility] [id number] Chiara Eduardo 0 1955 F Date Provider Department Center 06/15/2024 895-ALLAN BUSTAMANTE JUSTIN Wuevperez Garcia Family History Problem Relation Age of Onset Stroke Mother Kidney disease Father Coronary artery disease Paternal Grandfather Family Status - Relation Status Age at Mother Father Paternal Grandfather OFFICE VISIT Observed: 05/23/2024 10:30 AM Status: COMPLETED Source: [facility] [id number] Chiara Eduardo 0 1955 Date Provider Department Center 05/23/2024 ROSENDO FARLEY JUSTIN Wuevperez Garcia Family History Problem Relation Age of Onset Stroke Mother Kidney disease Father Coronary artery disease Paternal Grandfather Family Status - Relation Status Age at Mother Father Paternal Grandfather Level of Service:69204 ME OFFICE/OUTPATIENT ESTABLISHED LOW MDM 20 MIN PROGRESS Observed: 05/23/2024 10:30 AM Status: COMPLETED Source: [facility] Electrophysiology Consult Note Reason for visit: PVC [...] and effient. She was recently seen at [facility] as a transfer from [facility] for complaints of symptomatic wide-complex tachycardia [...] Coronary artery disease Coronary artery disease involving [place] coronary artery of [place] heart without angina pectoris 12/28/2016 Essential hypertension 12/14/2016 Hyperlipidemia Lower back pain 12/28/2016 Mixed hyperlipidemia 12/14/2016 Shortness of breath 12/28/2016 PSH: Past Surgical History: Procedure Laterality Date CARDIAC CATHETERIZATION CHOLECYSTECTOMY CORONARY STENT PLACEMENT HYSTERECTOMY SH: Social Determinants of Health Tobacco Use: Medium Risk (04/26/2024) Received from [facility] Patient History Smoking Tobacco Use: Former Smokeless Tobacco Use: Never Passive Exposure: Not on file Alcohol Use: Not At Risk (01/14/2019) Received from [employer] [employer] [facility] AUDIT-C Frequency of Alcohol Consumption: Monthly or [...] Transportation (Non-Medical): Not on file Physical Activity: Insufficiently Active (04/08/2023) Received from [facility] [employer] [facility] Exercise Vital Sign Days of Exercise per Week: 1 day Minutes of Exercise per Session: 30 min Stress: No Stress Concern Present (04/08/2023) Received from [facility] [employer] [facility] [place] of Occupational Health - Occupational Stress Questionnaire Feeling of Stress : Only a little Social Connections: Somewhat Isolated (01/14/2019) Received from [employer] [facility] Social Connection and Isolation Panel [NHANES] Frequency of Communication with Friends and Family: More than three times a week Frequency of Social Gatherings with Friends and Family: Twice a week Attends [employer] Services: Never Active Member of Clubs or Organizations: No Attends Club or Organization Meetings: Never Marital Status: Intimate Partner Violence: Not At Risk (10/26/2022) [place] Safety & Environment Fear of Current or Ex-Partner: No Emotionally Abused: Not on file Physically Abused: Not on file Sexually Abused: Not on file Physically or Sexually Abused: Not on file Depression: Not at risk (04/12/2023) Received from [facility] PHQ-2 Patient Health Questionnaire-2 Score: 0 Housing Stability: Low Risk (10/26/2022) Housing Stability Vital Sign Unable to Pay for Housing in the Last Year: Not on file Number of Places Lived in the Last Year: Not on file Unstable Housing in the Last Year: No Utilities: Not on file Health Literacy: Not on file Allergies: Allergies Allergen Reactions Clopidogrel Hydrochlorothiazide Exfoliative Dermatitis Penicillins Sodium Chloride Sulfa (Sulfonamide Antibiotics) Unknown Vancomycin Weight: 91.2kg Visit Vitals BP (!) 182/84 (BP Location: Left arm, Patient Position: Sitting) Pulse 74 Ht 1.6 m (5' 3 ) Wt 91.2 kg (201 lb) SpO2 95% BMI 35.61 kg/m??? OB Status Postmenopausal Smoking Status Former BSA 2.01 m??? Meds: Current Outpatient Medications on File Prior to Visit Medication Sig Dispense Refill albuterol 90 mcg/actuation inhaler INHALE 2 PUFFS BY MOUTH EVERY 4 HOURS NEEDED for SHORTNESS OF BREATH aspirin 81 mg EC tablet Take 1 tablet by mouth in the morning. atorvastatin (Lipitor) 80 mg tablet Take 1 tablet (80 mg) by mouth in the morning. 90 tablet 3 cholecalciferol (Vitamin D-3) 50 MCG (1999 UT) tablet 1 (one) time each day at the same time. cyclobenzaprine (Flexeril) 10 mg tablet Take 10 mg by mouth if needed in the morning, at noon, and at bedtime. dupilumab (Dupixent Syringe) 100 mg/0.67 mL syringe Inject under the skin. fluticasone propion-salmeteroL (Advair Diskus) 250-50 mcg/dose diskus inhaler INHALE 1 PUFF BY MOUTH TWICE DAILY; rinse mouth after use furosemide (Lasix) 20 mg tablet Take 1 tablet (20 mg) by mouth every other day. Pt taking 20 mgs daily 45 tablet 3 ipratropium-albuteroL (Duo-Neb) 0.5-2.5 mg/3 mL nebulizer solution 3 mL 4 times a day. isosorbide mononitrate ER (Imdur) 30 mg 24 hr tablet Take 1 tablet (30 mg) by mouth in the morning. Do not crush or chew. (Patient taking differently: Take 60 mg by mouth in the morning. Do not crush or chew.) 90 tablet 3 magnesium oxide-pyridoxine HCl (Beelith) 362-20 mg tablet Take 1 tablet by mouth in the morning. metoprolol succinate XL (Toprol-XL) 50 mg 24 hr tablet Take 1 tablet (50 mg) by mouth in the morning. Do not crush or chew. (Patient taking differently: Take 50 mg by mouth two times daily. Do not crush or chew.) 30 tablet 3 olmesartan (BENIcar) 40 mg tablet Take 1 tablet (40 mg) by mouth once daily as directed. 90 tablet 3 omeprazole (PriLOSEC) [address] capsule take 1 capsule by oral route every day before a meal predniSONE (Deltasone) 10 mg tablet Take 10 mg by mouth in the morning. albuterol 2.5 mg /3 mL (0.083 %) nebulizer solution INHALE 1 (ONE) vial via NEBULIZER FOUR TIMES DAILY amiodarone (Pacerone) 200 mg tablet Take 1 tablet (200 mg) by mouth once daily as directed. 90 tablet 3 ferrous sulfate 324 mg (65 mg iron) EC tablet TAKE 1 TABLET BY MOUTH WITH BREAKFAST Oral for 30 Days ipratropium (Atrovent) 0.02 % nebulizer solution INHALE 1 (ONE) vial via NEBULIZER FOUR TIMES DAILY omeprazole OTC (PriLOSEC OTC) 20 mg EC tablet Take 20 mg by mouth. prasugrel (Effient) 10 mg tablet Take 1 tablet (10 mg) by mouth once daily as directed. 180 tablet 0 Spiriva Respimat 2.5 mcg/actuation inhaler INHALE 2 PUFFS BY MOUTH EVERY DAY No current facility-administered medications on file prior to visit. ROS: Review of Systems Cardiovascular: Positive for dyspnea on exertion. Respiratory: Positive for cough, shortness of breath and wheezing. Hematologic/Lymphatic: Bruises/bleeds easily. Musculoskeletal: Positive for arthritis, back pain, joint pain and myalgias. Neurological: Positive for light-headedness. All other systems reviewed and are negative.. Physical Exam: Constitutional General Appearance: well-nourished, well-developed, appears stated age Level of Distress: comfortable Psychiatric Mental Status: alert, normal affect Orientation: oriented to time, place, and person Insight: good judgement Eyes Lids and Conjunctivae: non-injected, no xanthelasma ENMT Ears: no lesions on external ear Nose: no lesions on external nose Oropharynx: no cyanosis, no pallor Neck Neck: supple, trachea midline Carotid Arteries: bilateral normal upstroke, no bruits Jugular Veins: normal jugular venous pressure Thyroid: not enlarged Lungs Respiratory Effort: unlabored Chest Exam: normal curvature, no thoracic deformity Auscultation: clear, no wheezing, no rales, no rhonchi Cardiovascular Rate And Rhythm: regular Heart Sounds: normal S1, normal s2, no gallop Systolic Murmur: not heard Diastolic Murmur: not heard Extremities: no cyanosis, no edema, no peripheral signs of emboli Peripheral Pulses Radial Pulse: normal Abdomen Inspection and Palpation: soft, non distended, no bruit, non tender Musculoskeletal Inspection: no joint swelling Neurologic Gait: normal gait Skin Inspection and Palpation: warm and dry Nails: no clubbing Labs: Labs 10/31/2022 sodium 128, K3.8, BUN 18, creatinine 1.07, GFR 56 point, iron less than 10 EKG: No results found for this or any previous visit (from the past 4464 hour(s)). Echo: 10/27/22 TTE Findings Left Ventricle: The left ventricle is normal size. Global left ventricular systolic function is at lower limits of normal. The EF is 50 % visually. Left ventricular wall thickness is normal. Unable to assess segmental wall motion abnormalities due to poor sound transmission. Unable to assess diastolic dysfunction. Right Ventricle: The right ventricle appears normal in size. Right ventricular systolic function appears normal. Doppler studies suggest normal right sided pressures. Left Atrium: The left atrium is normal in size. Right Atrium: The right atrium is normal in size. Mitral Valve: Mitral valve appears normal. Trivial mitral regurgitation. Aortic Valve: Mild aortic cusp calcification is noted. Trivial aortic valve regurgitation. Tricuspid Valve: Normal tricuspid valve. Trivial tricuspid regurgitation. Pulmonic Valve: Pulmonary valve appears normal. No pulmonary regurgitation. Aorta: The aortic root is normal in size. Great Vessels: IVC: Normal size and course of the IVC. Pericardium: No pericardial effusion. Stress test: Coronary angiogram: 10/30/22 Final Impressions: -Previously placed stents in RCA patent and with mild ISR -Mild non obstructive disease of the left anterior descending and left circumflex coronary arteries -Normal right sided pressures Recommendations: -DAPT for at least 1 year following placement of RCA stent, followed by Aspirin 81 mg daily indefinitely. High intensity statin therapy -Optimization of medical management -Aggressive risk factor modification -EP evaluation/management of frequent PVCs, NSVT -Further recommendations as per inpatient Cardiology consult service 07/14/22 FINAL IMPRESSIONS: Severe, discrete, stenosis of the distal right coronary artery successfully treated by balloon angioplasty and Synergy drug-eluting stent placement Patent stent in the mid right coronary artery with mild in-stent restenosis Mild disease of the left anterior descending and left circumflex coronary arteries Mildly elevated right-sided filling pressures and wedge pressure Normal cardiac output/cardiac index RECOMMENDATIONS: Aspirin 81 mg lifelong Brilinta 90 mg p.o. twice daily for a minimum of 6 months; the patient has an allergy to Plavix. Aggressive cardiovascular factor modification Optimal medical therapy for coronary artery disease including dual antiplatelet therapy, moderate to high intensity statin therapy, a beta-shyam, plus or minus an angiotensin-converting enzyme inhibitor An outpatient echocardiogram will be performed Should the patient's shortness of breath not improve after coronary revascularization, would highly recommend pulmonary function tests and evaluation for pulmonary etiologies for her dyspnea Follow-up with Dr. Ward in the next 1 to 2 months Follow-up with her family physician as scheduled Diagnostic Imaging: No images are attached to the encounter. 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 - recent cath 10/2022 shows stable CAD and had recent intervention 06/2022, Essential hypertension Reduce Toprol XL to 5mf every day. Coronary artery disease involving [place] coronary artery of [place] heart without angina pectoris/ HLD Will add Ranexa and if no change, see Dr PATEL. Continue GDMT- ASA, effient, toprol, imdur, lipitor 80mg continue risk factor modifications- heart healthy diet, regular exercise as tolerated and continue all medications. COPD -stable, follows pulmonary dr. Coughlin -no hx of emphysema, interstitial lung disease or fibrosis Anemia -follow up with pcp and sylvain Mustafa MD Cardiac Electrophysiology [facility] 36 Observed: 01/04/2024 1:47 PM Status: COMPLETED Source: [facility] Patient seen today by Dr. Winter mathur. He wants to know if she can stop Effient due to easy bruising/bleeding. Please advise. Thanks. OFFICE VISIT Observed: 01/04/2024 1:00 PM Status: COMPLETED Source: [facility] [id number] EduardoEmily chavezmatthew Dasilva 0 1955 F Date Provider Department Center 01/04/2024 241-ROSENDO MUSTAFA [facility] Family History Problem Relation Age of Onset Stroke Mother Kidney disease Father Coronary artery disease Paternal Grandfather Family Status - Relation Status Age at Mother Father Paternal Grandfather Level of Service:76548 ME OFFICE/OUTPATIENT ESTABLISHED LOW [facility] 20 MIN PROGRESS Observed: 01/04/2024 1:00 PM Status: COMPLETED Source: [facility] [place] Electrophysiology Consult Note Reason for visit: [...] and effient. She was recently seen at [facility] as a transfer from [facility] for complaints of symptomatic wide-complex tachycardia [...] kidney disease COPD (chronic obstructive pulmonary disease) ([facility]) Coronary artery disease Coronary artery disease involving [place] coronary artery of [place] heart without angina pectoris 12/28/2016 Essential hypertension [...] Chloride Sulfa (Sulfonamide Antibiotics) Unknown Vancomycin Weight: 92.1kg Visit Vitals BP 130/80 (BP Location: Left arm, Patient Position: Sitting) Pulse 68 Ht 1.6 m (5' 3 ) Wt 92.1 kg (203 lb) SpO2 99% BMI 35.96 kg/m??? OB Status Postmenopausal Smoking Status Former BSA 2.02 m??? Meds: Current Outpatient Medications on File Prior to Visit Medication Sig Dispense Refill albuterol 90 mcg/actuation inhaler INHALE 2 PUFFS [...] mg tablet Take 20 mg by mouth every other day. Pt taking 20 mgs daily ipratropium-albuteroL (Duo-Neb) 0.5-2.5 mg/3 mL nebulizer solution 3 mL 4 times a day. isosorbide mononitrate ER (Imdur) 30 mg 24 hr tablet Take 1 tablet (30 mg) by mouth in the morning. Do not crush or chew. 90 tablet 3 magnesium oxide-pyridoxine HCl (Beelith) 362-20 mg tablet Take 1 tablet by mouth in the morning. metoprolol succinate XL (Toprol-XL) 100 mg 24 hr tablet Take 1 tablet (100 mg) by mouth in the morning for 360 doses. Do not crush or chew. 90 tablet 3 olmesartan (BENIcar) 40 mg tablet Take 1 tablet (40 mg) by mouth once daily as directed. 90 tablet 3 omeprazole (PriLOSEC) [address] capsule take 1 capsule by oral route every day before a meal prasugrel (Effient) 10 mg tablet Take 1 tablet (10 mg) by mouth once daily as directed. 30 tablet 11 albuterol 2.5 mg /3 mL (0.083 %) nebulizer solution INHALE 1 (ONE) vial via NEBULIZER FOUR TIMES DAILY amiodarone (Pacerone) 200 mg tablet Take 1 tablet (200 mg) by mouth once daily as directed. 90 tablet 3 amLODIPine (Norvasc) 5 mg tablet Take 1 tablet (5 mg) by mouth in the morning. 30 tablet 1 cholecalciferol (Vitamin D-3) 50 MCG (2000 UT) tablet 1 (one) time each day at the same time. ferrous sulfate 324 mg (65 mg iron) EC tablet TAKE 1 TABLET BY MOUTH WITH BREAKFAST Oral for 30 Days ipratropium (Atrovent) 0.02 % nebulizer solution INHALE 1 (ONE) vial via NEBULIZER FOUR TIMES DAILY metoprolol tartrate (Lopressor) 50 mg tablet Take 1 tablet (50 mg) by mouth in the morning and at bedtime. (Patient not taking: Reported on 10/12/2023) 180 tablet 3 omeprazole OTC (PriLOSEC OTC) 20 mg EC tablet Take 20 mg by mouth. Spiriva Respimat 2.5 mcg/actuation inhaler INHALE 2 PUFFS BY MOUTH EVERY DAY No current facility-administered medications on file prior to visit. ROS: Review of Systems Cardiovascular: Positive for dyspnea on exertion and leg swelling. Respiratory: Positive for cough, shortness of breath and wheezing. Hematologic/Lymphatic: Bruises/bleeds easily. Musculoskeletal: Positive for arthritis, back pain, joint pain and myalgias. Neurological: Positive for light-headedness. All other systems reviewed and are negative. Physical Exam: Constitutional General Appearance: well-nourished, well-developed, appears stated age Level of Distress: comfortable Psychiatric Mental Status: alert, normal affect Orientation: oriented to time, place, and person Insight: good judgement Eyes Lids and Conjunctivae: non-injected, no xanthelasma ENMT Ears: no lesions on external ear Nose: no lesions on external nose Oropharynx: no cyanosis, no pallor Neck Neck: supple, trachea midline Carotid Arteries: bilateral normal upstroke, no bruits Jugular Veins: normal jugular venous pressure Thyroid: not enlarged Lungs Respiratory Effort: unlabored Chest Exam: normal curvature, no thoracic deformity Auscultation: clear, no wheezing, no rales, no rhonchi Cardiovascular Rate And Rhythm: regular Heart Sounds: normal S1, normal s2, no gallop Systolic Murmur: not heard Diastolic Murmur: not heard Extremities: no cyanosis, no edema, no peripheral signs of emboli Peripheral Pulses Radial Pulse: normal Abdomen Inspection and Palpation: soft, non distended, no bruit, non tender Musculoskeletal Inspection: no joint swelling Neurologic Gait: normal gait Skin Inspection and Palpation: warm and dry Nails: no clubbing Labs: Labs 10/31/2022 sodium 128, K3.8, BUN 18, creatinine 1.07, GFR 56 point, iron less than 10 EKG: No results found for this or any previous visit (from the past 4464 hour(s)). Echo: 10/27/22 TTE Findings Left Ventricle: The left ventricle is normal size. Global left ventricular systolic function is at lower limits of normal. The EF is 50 % visually. Left ventricular wall thickness is normal. Unable to assess segmental wall motion abnormalities due to poor sound transmission. Unable to assess diastolic dysfunction. Right Ventricle: The right ventricle appears normal in size. Right ventricular systolic function appears normal. Doppler studies suggest normal right sided pressures. Left Atrium: The left atrium is normal in size. Right Atrium: The right atrium is normal in size. Mitral Valve: Mitral valve appears normal. Trivial mitral regurgitation. Aortic Valve: Mild aortic cusp calcification is noted. Trivial aortic valve regurgitation. Tricuspid Valve: Normal tricuspid valve. Trivial tricuspid regurgitation. Pulmonic Valve: Pulmonary valve appears normal. No pulmonary regurgitation. Aorta: The aortic root is normal in size. Great Vessels: IVC: Normal size and course of the IVC. Pericardium: No pericardial effusion. Stress test: Coronary angiogram: 10/30/22 Final Impressions: -Previously placed stents in RCA patent and with mild ISR -Mild non obstructive disease of the left anterior descending and left circumflex coronary arteries -Normal right sided pressures Recommendations: -DAPT for at least 1 year following placement of RCA stent, followed by Aspirin 81 mg daily indefinitely. High intensity statin therapy -Optimization of medical management -Aggressive risk factor modification -EP evaluation/management of frequent PVCs, NSVT -Further recommendations as per inpatient Cardiology consult service 07/14/22 FINAL IMPRESSIONS: Severe, discrete, stenosis of the distal right coronary artery successfully treated by balloon angioplasty and Synergy drug-eluting stent placement Patent stent in the mid right coronary artery with mild in-stent restenosis Mild disease of the left anterior descending and left circumflex coronary arteries Mildly elevated right-sided filling pressures and wedge pressure Normal cardiac output/cardiac index RECOMMENDATIONS: Aspirin 81 mg lifelong Brilinta 90 mg p.o. twice daily for a minimum of 6 months; the patient has an allergy to Plavix. Aggressive cardiovascular factor modification Optimal medical therapy for coronary artery disease including dual antiplatelet therapy, moderate to high intensity statin therapy, a beta-shyam, plus or minus an angiotensin-converting enzyme inhibitor An outpatient echocardiogram will be performed Should the patient's shortness of breath not improve after coronary revascularization, would highly recommend pulmonary function tests and evaluation for pulmonary etiologies for her dyspnea Follow-up with Dr. Ward in the next 1 to 2 months Follow-up with her family physician as scheduled Diagnostic Imaging: No images are attached to the encounter. 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 - recent cath 10/2022 shows stable CAD and had recent intervention 06/2022, Essential hypertension Reduce Toprol XL to 5mf every day. Coronary artery disease involving [place] coronary artery of [place] heart without angina pectoris/ HLD Coronary artery disease is stable without any concerning symtpoms Continue GDMT- ASA, effient, toprol, imdur, lipitor 80mg continue risk factor modifications- heart healthy diet, regular exercise as tolerated and continue all medications. COPD -stable, follows pulmonary dr. Coughlin -no hx of emphysema, interstitial lung disease or fibrosis Anemia -follow up with pcp and sylvain Mustafa MD Cardiac Electrophysiology [facility] PROGRESS Observed: 10/12/2023 1:20 PM Status: COMPLETED Source: [facility] Electrophysiology Consult Note Reason for visit: PVC [...] and effient. She was recently seen at [facility] as a transfer from [facility] for complaints of symptomatic wide-complex tachycardia [...] kidney disease COPD (chronic obstructive pulmonary disease) ([facility]) Coronary artery disease Coronary artery disease involving [place] coronary artery of [place] heart without angina pectoris 12/28/2016 Essential hypertension [...] use furosemide (Lasix) 40 mg tablet Take 40 mg by mouth every other day. isosorbide mononitrate ER (Imdur) 30 mg 24 hr tablet Take 1 tablet (30 mg) by mouth in the morning. Do not crush or chew. 90 tablet 3 magnesium oxide (Mag-Ox) 400 mg (241.3 mg magnesium) tablet Take 1 tablet (400 mg) by mouth in the morning and at bedtime. 180 tablet 3 magnesium oxide-pyridoxine HCl (Beelith) 362-20 mg tablet Take 1 tablet by mouth in the morning. metoprolol succinate XL (Toprol-XL) 100 mg 24 hr tablet Take 1 tablet (100 mg) by mouth in the morning for 360 doses. Do not crush or chew. 90 tablet 3 olmesartan (BENIcar) 40 mg tablet Take 1 tablet (40 mg) by mouth once daily as directed. 90 tablet 3 omeprazole OTC (PriLOSEC OTC) 20 mg EC tablet Take 20 mg by mouth. prasugrel (Effient) 10 mg tablet Take 1 tablet (10 mg) by mouth once daily as directed. 30 tablet 11 cholecalciferol (Vitamin D-3) 50 MCG (2000 UT) tablet 1 (one) time each day at the same time. ferrous sulfate 324 mg (65 mg iron) EC tablet TAKE 1 TABLET BY MOUTH WITH BREAKFAST Oral for 30 Days ipratropium (Atrovent) 0.02 % nebulizer solution INHALE 1 (ONE) vial via NEBULIZER FOUR TIMES DAILY ipratropium-albuteroL (Duo-Neb) 0.5-2.5 mg/3 mL nebulizer solution 3 mL 4 times a day. metoprolol tartrate (Lopressor) 50 mg tablet Take 1 tablet (50 mg) by mouth in the morning and at bedtime. (Patient not taking: Reported on 10/12/2023) 180 tablet 3 omeprazole (PriLOSEC) [address] capsule take 1 capsule by oral route every day before a meal Spiriva Respimat 2.5 mcg/actuation inhaler INHALE 2 PUFFS BY MOUTH EVERY DAY No current facility-administered medications on file prior to visit. ROS: Review of Systems Cardiovascular: Positive for dyspnea on exertion and leg swelling. Respiratory: Positive for shortness of breath. Physical Exam: Constitutional General Appearance: well-nourished, well-developed, appears stated age Level of Distress: comfortable Psychiatric Mental Status: alert, normal affect Orientation: oriented to time, place, and person Insight: good judgement Eyes Lids and Conjunctivae: non-injected, no xanthelasma ENMT Ears: no lesions on external ear Nose: no lesions on external nose Oropharynx: no cyanosis, no pallor Neck Neck: supple, trachea midline Carotid Arteries: bilateral normal upstroke, no bruits Jugular Veins: normal jugular venous pressure Thyroid: not enlarged Lungs Respiratory Effort: unlabored Chest Exam: normal curvature, no thoracic deformity Auscultation: clear, no wheezing, no rales, no rhonchi Cardiovascular Rate And Rhythm: regular Heart Sounds: normal S1, normal s2, no gallop Systolic Murmur: not heard Diastolic Murmur: not heard Extremities: no cyanosis, no edema, no peripheral signs of emboli Peripheral Pulses Radial Pulse: normal Abdomen Inspection and Palpation: soft, non distended, no bruit, non tender Musculoskeletal Inspection: no joint swelling Neurologic Gait: normal gait Skin Inspection and Palpation: warm and dry Nails: no clubbing Labs: Labs 10/31/2022 sodium 128, K3.8, BUN 18, creatinine 1.07, GFR 56 point, iron less than 10 EKG: No results found for this or any previous visit (from the past 4464 hour(s)). Echo: 10/27/22 TTE Findings Left Ventricle: The left ventricle is normal size. Global left ventricular systolic function is at lower limits of normal. The EF is 50 % visually. Left ventricular wall thickness is normal. Unable to assess segmental wall motion abnormalities due to poor sound transmission. Unable to assess diastolic dysfunction. Right Ventricle: The right ventricle appears normal in size. Right ventricular systolic function appears normal. Doppler studies suggest normal right sided pressures. Left Atrium: The left atrium is normal in size. Right Atrium: The right atrium is normal in size. Mitral Valve: Mitral valve appears normal. Trivial mitral regurgitation. Aortic Valve: Mild aortic cusp calcification is noted. Trivial aortic valve regurgitation. Tricuspid Valve: Normal tricuspid valve. Trivial tricuspid regurgitation. Pulmonic Valve: Pulmonary valve appears normal. No pulmonary regurgitation. Aorta: The aortic root is normal in size. Great Vessels: IVC: Normal size and course of the IVC. Pericardium: No pericardial effusion. Stress test: Coronary angiogram: 10/30/22 Final Impressions: -Previously placed stents in RCA patent and with mild ISR -Mild non obstructive disease of the left anterior descending and left circumflex coronary arteries -Normal right sided pressures Recommendations: -DAPT for at least 1 year following placement of RCA stent, followed by Aspirin 81 mg daily indefinitely. High intensity statin therapy -Optimization of medical management -Aggressive risk factor modification -EP evaluation/management of frequent PVCs, NSVT -Further recommendations as per inpatient Cardiology consult service 07/14/22 FINAL IMPRESSIONS: Severe, discrete, stenosis of the distal right coronary artery successfully treated by balloon angioplasty and Synergy drug-eluting stent placement Patent stent in the mid right coronary artery with mild in-stent restenosis Mild disease of the left anterior descending and left circumflex coronary arteries Mildly elevated right-sided filling pressures and wedge pressure Normal cardiac output/cardiac index RECOMMENDATIONS: Aspirin 81 mg lifelong Brilinta 90 mg p.o. twice daily for a minimum of 6 months; the patient has an allergy to Plavix. Aggressive cardiovascular factor modification Optimal medical therapy for coronary artery disease including dual antiplatelet therapy, moderate to high intensity statin therapy, a beta-shyam, plus or minus an angiotensin-converting enzyme inhibitor An outpatient echocardiogram will be performed Should the patient's shortness of breath not improve after coronary revascularization, would highly recommend pulmonary function tests and evaluation for pulmonary etiologies for her dyspnea Follow-up with Dr. Ward in the next 1 to 2 months Follow-up with her family physician as scheduled Diagnostic Imaging: No images are attached to the encounter. 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 will stop amiodarone and see how she feels. if there is frequent PVCs then consideration of the PVC ablation can be entertained. - recent cath 10/2022 shows stable CAD and had recent intervention 06/2022, still complaining of PVCs and NSVT and was symptomatic prior to antiarrhythmic Essential hypertension the blood pressure readings have been quite volatile. I have advised her to keep a blood pressure log with readings at 8 AM 2 PM and 8 PM and send it to us. may need to have amlodipine 10mg if her blood pressure is still high Coronary artery disease involving [place] coronary artery of [place] heart without angina pectoris/ HLD Coronary artery disease is stable without any concerning symtpoms Continue GDMT- ASA, effient, toprol, imdur, lipitor 80mg continue risk factor modifications- heart healthy diet, regular exercise as tolerated and continue all medications. COPD -stable, follows pulmonary dr. Coughlin -no hx of emphysema, interstitial lung disease or fibrosis Anemia -follow up with pcp and nephro Rosendo Mustafa MD Cardiac Electrophysiology [facility] FOLLOW-UP Observed: 10/12/2023 1:20 PM Status: COMPLETED Source: [facility] [id number] Chiara Eduardo 0 1955 F Date Provider Department Center 10/12/2023 241-ROSENDO MUSTAFA [facility] Family History Problem Relation Age of Onset Stroke Mother Kidney disease Father Coronary artery disease Paternal Grandfather Family Status - Relation Status Age at Mother Father Paternal Grandfather Level of Service:92163 ME OFFICE/OUTPATIENT ESTABLISHED MOD MDM 30 MIN ALLERGIES DATE TYPE / CODE NAME / CODE REACTION SEVERITY SOURCE 07/25/2024 Drug Allergy/41 5938199(SN OMED CT) Penicillins/[id number](RX NORM) Hives Unknown [facility] 07/25/2024 Drug Allergy/41 9352966(SN OMED CT) Sulfa (Sulfonamide Antibiotics)/[id number](R XNORM) Unknown Reaction Unknown [facility] 07/25/2024 Drug Allergy/41 2959008(SN OMED CT) hydrochlorothiazide/O0511 83560(RXNORM) Rash Unknown [facility] 07/25/2024 Drug Allergy/41 9232439(SN OMED CT) vancomycin/[id number](RXN ORM) Anaphylaxis Unknown [facility] 07/25/2024 Drug Allergy/41 8659869(SN OMED CT) clopidogrel/C754001004(RX NORM) Hives Unknown [facility] 04/08/2023 DRUG INGREDI/41 0381942(SN OMED CT) SODIUM CHLORIDE [facility] 04/08/2023 Drug Class/4195 62303(SNOM ED CT) SULFA (SULFONAMIDE ANTIBIOTICS) Unknown [facility] 12/28/2016 DRUG INGREDI/41 7832845(SN OMED CT) CLOPIDOGREL [facility] 12/28/2016 DRUG INGREDI/41 3465174(SN OMED CT) HYDROCHLOROTHIAZIDE [facility] 12/28/2016 Drug Class/4195 84330(SNOM ED CT) PENICILLINS [facility] 12/28/2016 DRUG INGREDI/41 1352817(SN OMED CT) VANCOMYCIN [facility] ENCOUNTERS ADMIT/DISCHARGE ACCOUNT NUMBER ADMITTING ENCOUNTER CLASS LOCATION SOURCE 09/22/2024/09/23/19 [id number] Ambulatory Building:[facility] 09/06/2024/09/07/19 [id number] Amb[facility] 09/04/2024 [id number] Inpatient Encounter Building:[facility] 09/03/2024 [id number] Inpatient Encounter Building:[facility] 09/03/2024 [id number] Inpatient Encounter Building:[facility] 09/03/2024 [id number] Inpatient Encounter Building:[facility] 09/03/2024/09/06/19 [id number] KIRSTEN MCALLISTER Inpatient Encounter Building:[facility] URoom: 3123Bed: 3123-01 [facility] 08/01/2024/08/02/19 [id number] Ambulatory Building:[facility] 07/26/2024/07/27/19 [id number] Nolvia Jimenez [facility] 07/03/2024 [id number] Ambulatory Building:[facility] 07/03/2024/07/04/19 [id number] ABBY WARD Ambulatory Buildin 0Room: [facility] VASCULAR POOLBed: 2429 [facility] 06/15/2024/06/16/19 [id number] Ambulatory Building:[facility] 06/08/2024/06/09/19 [id number] Ambulatory Building:[facility] 05/23/2024/05/23/19 [id number] Ambulatory Building:[facility] 04/26/2024/04/26/19 [id number] Ambulatory Building:[facility] 04/18/2024/04/18/19 25 [id number] Ambulatory Building:[facility] 01/17/2024/01/17/20 24 [id number] Ambulatory Building:[facility] 01/04/2024/01/04/20 24 [id number] Ambulatory Building:[facility] 12/20/2023/12/20/19 24 [id number] Jackelyn Diggs [facility] 10/12/2023/10/12/19 24 [id number] Ambulatory Building:[facility] PAYERS ENCOUNTER GUARANTOR PAYER SUBSCRIBER SOURCE 09/22/2024 Primary Insurance:[employer] MEDICARE ADVANTAGEPolicy Number: [id number] Date:2020-03-29 CHIARA A THOMASOPERDOB: [id number] [address] [address] [facility] 09/06/2024 CHIARA THOMASOPERDOB: [address] [address]Yjc: () Primary Insurance:[facility] MEDICARE ADVANTAGEPolicy Number: [id number] Date:2020-03-29 CHIARA HOOPERDOB: [id number] [address] [address] [facility] 09/04/2024 Primary Insurance:[facility] MEDICARE ADVANTAGEPolicy Number: [id number] Date:2020-03-29 CHIARA A HOOPERDOB: [id number] [address] [address] [facility] 09/03/2024 Primary Insurance:[facility] MEDICARE ADVANTAGEPolicy Number: [id number] Date:2020-03-29 CHIARA A HOOPERDOB: [id number] [address] [place] [address] [facility] 09/03/2024 Primary Insurance:[employer] MEDICARE ADVANTAGEPolicy Number: [id number] Date:2020-03-29 CHIARA Dasilva HOOPERDOB: [id number] [address] [place] [address] [facility] 09/03/2024 Primary Insurance:[employer] MEDICARE ADVANTAGEPolicy Number: [id number] Date:2020-03-29 CHIARA Brown HOOPERDOB: [id number] [address], [id number] [facility] 09/03/2024 Primary Insurance:[employer] MEDICARE ADVANTAGEPolicy Number: [id number] Date:2020-03-29 CHIARA Brown HOOPERDOB: [id number] [address], [facility] [facility] 08/01/2024 Primary Insurance:[employer] MEDICARE ADVANTAGEPolicy Number: [id number] Date:2020-03-29 CHIARA Brown HOOPERDOB: [id number] [address] [address] [facility] 07/26/2024 Chiara A [address]mo[address] [place] [phone]: () Primary Insurance:Self PayPolicy Number: Effective Date:2024-07-26 [facility] 07/03/2024 Primary Insurance:[employer] MEDICARE ADVANTAGEPolicy Number: [id number] Date:2020-03-29 CHIARA Brown HOOPERDOB: [id number] [address] [place] [address] [facility] 07/03/2024 Primary Insurance:[employer] MEDICARE ADVANTAGEPolicy Number: [id number] Date:2020-03-29 CHIARA A HOOPERDOB: [id number] [place] [phone] [facility] 06/15/2024 Primary Insurance:[facility] MEDICARE ADVANTAGEPolicy Number: [id number] Date:2020-03-29 CHIARA A HOOPERDOB: [id number] [place] [phone] [facility] 06/08/2024 CHIARA HOOPERDOB: [address] [address]Ert: (HP) Primary Insurance:[facility] MEDICARE ADVANTAGEPolicy Number: [id number] Date:2020-03-29 CHIARA HOOPERDOB: [id number] [place] [id number] [facility] 05/23/2024 Primary Insurance:[facility] MEDICARE ADVANTAGEPolicy Number: [id number] Date:2020-03-29 CHIARA A HOOPERDOB: [id number] [place] [phone] [facility] 04/26/2024 CHIARA HOOPERDOB: [address] [address]Npx: (HP) Primary Insurance:[facility] MEDICARE ADVANTAGEPolicy Number: [id number] Date:2020-03-29 CHIARA HOOPERDOB: [id number] [place] [id number] [facility] 04/18/2024 CHIARA HOOPERDOB: [address] [address]Czz: (HP) Primary Insurance:[facility] MEDICARE ADVANTAGEPolicy Number: [id number] Date:2020-03-29 CHIARA HOOPERDOB: [id number] [address] [place] [address] [facility] 01/17/2024 CHIARA HOOPERDOB: [address] [address]Dtb: (HP) Primary Insurance:[employer] MEDICARE ADVANTAGEPolicy Number: [id number] Date:2020-03-29 CHIARA GUZMANOPERDOB: [id number] [address] [place] [address] [facility] 01/04/2024 Primary Insurance:[employer] MEDICARE ADVANTAGEPolicy Number: [id number] Date:2020-03-29 CHIARA Dasilva HOOPERDOB: [id number] [address] [address] [facility] 12/20/2023 Chiara Guzmanoper[address] [place] [phone]: (HP) Primary Insurance:[place] MCR PFFSPolicy Number: [id number] Date:2023-12-06 Chiara GuzmanoperDOB: [id number] [address] [address]Wcw: (HP) [facility] 12/20/2023 Secondary Insurance:Self PayPolicy Number: Effective Date:2023-12-06 [facility] Primary Insurance:[employer] MEDICARE ADVANTAGEPolicy Number: [id number] Date:2020-03-29 CHIARA Dasilva HOOPERDOB: [id number] [address] [address] [facility]
--- OUTSIDE RECORDS SUMMARY | 2024-09-22 13:00 | XMS_ITS | Encounter Summary ---
Author Organization [facility] Address [address] [place] [address] Care Team Providers Care Water Taxi Operator Name Role Phone Nolvia Jimenez MD Primary Care Provider [phone] Brien Coughlin MD Unavailable Encounter Details Date Type Department Care Team (Late st Contact Info) Description 09/22/2024 1:00 PM EDT Follow-Up [facility] [address] [place] [address] Zack Villarreal, TRAVELING PHLEBOTOMIST [address] [place] [address] Heart failure with mildly reduced ejection fraction (CMS/HCC) (Primary Dx); Bilateral lower extremity edema; Coronary artery disease involving [place] coronary artery of [place] heart without angina pectoris; Shortness of breath; Mixed hyperlipidemia; Benign hypertensive heart disease with heart failure (CMS/HCC); Chronic heart failure with preserved ejection fraction (CMS/HCC) Social History Tobacco Use Types Packs/Day Years Used Date Smoking Tobacco: Former Cigarettes Passive Smoke Exposure: Past Smokeless Tobacco: Never Tobacco Cessation:Counseling Given: Not Answered Alcohol Use Standard Drinks/Week Comments Yes 0 (1 standard drink = 0.6 oz pur e alcohol) occaisonal [facility] Utilities Answer Date Recorded In the past 12 months has [employer], gas, oil, or water company threatened to shut off services in your home? No 09/03/2024 Humiliation, Afraid, Rape, and Kick questionnair e Answer Date Recorded Within the last year, have y ou been afraid of your partner or ex-partner? No 09/03/2024 Emotionally Abused Not on file 09/03/2024 Physically Abused Not on file 09/03/2024 Sexually Abused Not on file 09/03/2024 Overall Financial Resource Strain (CARDIA) Answe r Date Recorded How hard is it for you to pa y for the very basics like food, housing, medical care, and heating? Not very hard 09/03/2024 Transportation Answer Date Recorded In the past 12 months, has l ack of transportation kept you from medical appointments or from getting medications? No 09/03/2024 Lack of Transportation (Non-Medical) Not on file 09/03/2024 Housing Stability Vital Sign Answer Rajiv e Recorded In the last 12 months, was t here a time when you were not able to pay the mortgage or rent on time? No 09/03/2024 Number of Times Moved in the Last Year Not on fi le 09/03/2024 At any time in the past 12 m [facility], were you homeless or living in a longterm (including now)? No 09/03/2024 Hunger Vital Sign Answer Date Recorded Within the past 12 months, y ou worried that your food would run out before you got the money to buy more. Sometimes true Ran Out of Food in the Last Year Not on file 09/03/2024 Comments No Sex and Gender Information Value Date Recorded Sex Assigned at Female 07/28/2024 10:26 AM EDT Legal Sex Female 9:48 PM EDT Gender Identity Female 07/28/2024 10:26 AM EDT Sexual Orientation Heterosexual or Straight 04/2024 10:26 AM EDT documented as of this encounter Last Filed Vital Signs Vital Sign Reading Time Taken Comments Blood Pressure 144/76 09/22/2024 12:51 PM EDT Pulse 77 09/22/2024 12:51 PM EDT Temperature - - Respiratory Rate - - Oxygen Saturation 93% 09/22/2024 12:51 PM EDT Inhaled Oxygen Concentration - - Weight 88.9 kg (196 lb) 09/22/2024 12:51 PM EDT Height 160 cm (5' 3 ) 09/22/2024 12:51 PM EDT Body Mass Index 34.72 09/22/2024 12:51 PM EDT documented in this encounter Progress Notes * Zack Villarreal CNP - 09/22/2024 3:00 PM EDT Images from the original note were not included. SUBJECTIVE Reason for Visit: Susana Juares is a 69 y.o. year old female patient being seen for follow-up hospital visit, NSTEMI. HPI: Susana Juares is a 69 y.o. year old female with significant medical history coronary artery disease, prior stent placement, COPD, History of acute inferior wall NH, HT, HLP, CKD, obesity Recent hospital course [...] steroids and did fairly well. Patient had homeO2 eval she did qualify for 3 L nasal cannula while walking. Patient to continue cefpodoxime and Zithromax until 09/06 Patient had mild troponin elevation felt to be related to type II NH. Of note patient had cardiac cath in May 2024 with patent stent to the RCA. Echo was done and showed EF 44% and patient's goal-directed therapy medications were adjusted untilfollow-up appointment end of this month 09/22/2024 office visit: Patient seen evaluated in the office today. Currently using 3 to 4 L nasal cannula. She reports that her SOB is slightly worse than her usual baseline. She reports she can walk about 15 feet before needing to take a break.Otherwise, she denies chest pain, palpitations, lightheadedness or dizziness.On exam she has +1-2 LE edema. 08/01/2024 office visit (Dr. Azevedo): Doing well; no new symptoms. No chest [...] Daily atorvastatin (LIPITOR) 80 mg, oral, Daily gsuojifjno-cgcnfrjk-yrageoilmz (Breztri Aerosphere) 160-9-4.8 mcg/actuation HFA aerosol inhaler 160mcg, inhalation, Daily cholecalciferol (VITAMIN D-3) 2,000 Units, [...] Rate 09/03/2024 90 Atrial Rate 09/03/2024 90 WY Interval 09/03/2024 140 QRS DURATION 09/03/2024 76 QT Interval 09/03/2024 368 QTC CALCULATION(BAZETT) 09/03/2024 450 P Deering 09/03/2024 70 R-Deering 09/03/2024 42 T Wave Deering 09/03/2024 51 Auto WBC 09/03/2024 19.92 (H) [...] Rate 09/03/2024 93 Atrial Rate 09/03/2024 93 WY Interval 09/03/2024 138 QRS DURATION 09/03/2024 76 QT Interval 09/03/2024 354 QTC CALCULATION(BAZETT) 09/03/2024 440 P Deering 09/03/2024 69 R-Deering 09/03/2024 35 T Wave Deering 09/03/2024 45 Triglycerides 09/03/2024 44 Cholesterol 09/03/2024 [...] the following laboratory results above. These findings havebeen analyzed in the context of the patient's [...] Doppler studies suggest normal right sided pressures. LeftAtrium: The left atrium appears normal in size. [...] suggest normal right sided pressures. Left Atrium: Theleft atrium is normal in size. Overall Conclusions: [...] fashion over the right neck and left radialregions. Using 1% lidocaine solution, local infiltration anesthesia was achieved. Using a modified Seldingertechnique, a micropuncture kit, and under ultrasound guidance, access to the right internal jugularvein was obtained. A 6 Hungarian 11 cm sheath was inserted without difficulty. [...] left radial artery was obtained. A 6 Hungarian glide sheath was inserted without difficulty. Bilateral [...] There is a mid vessel 40 to 50%stenosis. Right coronary artery: This is a dominant [...] Value Ventricular Rate 93 Atrial Rate 93 WY Interval 138 QRS DURATION 76 QT Interval 354 QTC CALCULATION(BAZETT) 440 P Deering 69 R-Deering 35 T Wave Deering 45 Impression Sinus rhythm with frequent Premature ventricular complexes Low voltage QRS Borderline ECG When compared with ECG of 03-SEP-2024 16:56, No significant change was found Confirmed by Jamie Estevez ([id number]) on 09/03/2024 6:41:10 PM I have personally reviewed and analyzed all available cardiac diagnostic tests and imaging reports.Findings have been analyzed in the context of the patient's clinical status. Assessment and Plan #HFmrEF #Bilateral extremity edema NYHA II (COPD overlap) Euvolemic Compensated +1-2 LE edema Weight today is 196 pounds Most recent TTE 09/04/2024: EF 44% 10/27/2022: EF 50% Most recent labs reviewed, 09/05/2024: Sodium 134, potassium 4.2, BUN 26, creatinine 1.24, glucose 92, calcium 8.1, EGFR 46.5 Hemoglobin 10.2 RCH 07/03/2024: RHC shows mildly elevated right-sided and [...] chest pain History of acute inferior wall NH Cardiac catheterization 07/03/2024: Patent RCA stents with [...] in 2 months No follow-ups on file. [facility] [1] Past Medical History: Diagnosis Date Abnormal ECG Chronic GERD 12/28/2016 Chronic kidney disease COPD (chronic obstructive pulmonary disease) (CMS/HCC) Coronary artery disease Coronary artery disease involving [place] coronary artery of [place] heart without angina pectoris 12/28/2016 Essential hypertension 12/14/2016 Hyperlipidemia Lower back pain 12/28/2016 Mixed hyperlipidemia 12/14/2016 Shortness of breath 12/28/2016 [2] Past Surgical History: Procedure Laterality Date CARDIAC CATHETERIZATION CHOLECYSTECTOMY CORONARY STENT PLACEMENT HYSTERECTOMY [3] Patient Active Problem List Diagnosis Bladder prolapse, female, acquired Chronic GERD COPD (chronic obstructive pulmonary disease) (CMS/HCC) Coronary artery disease involving [place] coronary artery of [place] heart without angina pectoris Diuretic-induced hypokalemia Essential hypertension Former smoker Health care maintenance History of acute inferior wall NH Lower back pain Mixed hyperlipidemia Severe obesity (BMI 35.0-39.9) with comorbidity (CMS/HCC) Shortness of breath Chest pain Arrhythmia Anemia Hypomagnesemia Hyponatremia Non-sustained ventricular tachycardia (CMS/HCC) History of tobacco use 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/HCC) Elevated troponin [4] Social History Tobacco Use Smoking status: Former Types: Cigarettes Smokeless tobacco: Never Substance Use Topics Alcohol use: Yes Comment: occaisonal Drug use: Never [5] Allergies Allergen Reactions Clopidogrel Hydrochlorothiazide Exfoliative Dermatitis Penicillins Sodium Chloride Sulfa (Sulfonamide Antibiotics) Unknown Vancomycin * Oralia Jaramillo MA - 09/22/2024 1:00 PM EDT Patient is here today for a follow up. Patient states she is doing ok. Review of Systems Constitutional: Negative. documented in this encounter Plan of Treatment Upcoming Encounters Date Type Department Care Team (Late st Contact Info) Description 11/20/2024 11:00 AM EDT Office Visit [facility] [address] [place] [id number] Zack Villarreal, TRAVELING PHLEBOTOMIST [address] [place] [address] Scheduled Orders Name Type Priority Associated Diagnoses Orde r Schedule Basic metabolic panel Lab Routine Heart failure with mildly reduced ejection fraction (CMS/HCC) Benign hypertensive heart disease with heart failure (CMS/HCC) Expected: 09/29/2024 (Approximate), Expires: 09/22/2025 documented as of this encounter Visit Diagnoses Diagnosis Heart failure with mildly reduced ejection fraction (CMS/HCC)- Primary Bilateral lower extremity edema Coronary artery disease involving [place] coronary artery of [place] heart without angina pectoris Shortness of breath Mixed hyperlipidemia Benign hypertensive heart disease with heart failure (CMS/HCC) Chronic heart failure with preserved ejection fraction (CMS/HCC) documented in this encounter Care Teams Water Taxi Operator Relationship Specialty Start Date End Date Nolvia Jimenez MD [address] [place] [address] PCP - General Nurse Practitioner 06/15/24 Brien Coughlin MD [address] [place] [address] Pulmonary Disease 09/05/24 documented as of this encounter
--- OUTSIDE RECORDS SUMMARY | 2024-10-03 11:46 | XMS_ITS | Encounter Summary ---
Author Organization [facility] Address [address] [place] [address] Care Team Providers Care Barker Operator Name Role Phone Shaikh ROCAEL Larios Unavailable [phone] Argelia Cheng NP Unavailable [phone] Trace Kelly MD Primary Care Provider [phone] Argelia Cheng NP Unavailable [phone] Encounter Details Date Type Department Care Team (Late st Contact Info) Description 01/24/2024 Clinisync Result Encounter [facility] External Department Unsolicited Provider, Generic External Data Social History Tobacco Use Types Packs/Day Years Used Date Smoking Tobacco: Former Cigarettes - 2015 Smokeless Tobacco: Never Alcohol Use Standard Drinks/Week Comments Never 0 (1 standard drink = 0.6 oz pur e alcohol) [facility] - Occupational Stress [...] Care Team (Late st Contact Info) Description 10/18/2024 2:20 PM EDT Office Visit [facility] [address] [place] [address] Nolvia Jimenez NP [address] [place] [address] documented as of this encounter Procedures Procedure Name Priority Date/Time Associated Diagnosis Comments RT PULMONARY FUNCTION TEST 01/24/2024 1:05 PM EDT documented in this encounter Results * RT PULMONARY FUNCTION TEST (01/24/2024 1:05 PM EDT) Anatomical Region Laterality Modality Other 01/24/2024 1:05 PM EDT Narrative 01/26/2024 5:54 PM EDT [place] [id number] Respiratory Report Signed Patient: CHIARA JUARES MR#: [id number] : 1955 Acct:[id number] Age/Sex: 68 / F ADM Date: 01/24/24 Loc: CARD Attending Dr: Brien Coughlin D.O. Ordering Physician: Brien Coughlin D.O. Date of Service: 01/24/24 Procedure(s): RT pulmonary function test Accession Number(s): [id number] cc: [facility] Test Date: 2024-01-24 Pat Name: CHIARA JUARES Department: Room: - Gender: Female Bond Clerk: Frank Calderón RRT : 1955 Requested By: Brien Coughlin Order Number: [id number] Reading MD: Brien Coughlin Interpretive Statements Pulmonary [...] By: Brien Coughlin D.O. Signed By: 01/26/24 1758 DD/ 1305 TD/TT: Dynamotor Repairer: Procedure Note Radiology, Radiologist, - 01/26/2024 [place] [address] Respiratory Report Signed Patient: CHIARA JUARES AMR#: [id number] : 1955cct:[id number] Age/Sex: 68 / FADM Date: 01/24/24 Loc: CARD Attending Dr: Brien Coughlin D.O. Ordering Physician: Brien Coughlin D.O. Date of Service: 01/24/24 Procedure(s): RT pulmonary function test Accession Number(s): [id number] cc: [facility] Test Date: 2024-01-24 Pat Name: CHIARA JUARES Department: Room: - Gender: Female Bond Clerk: Frank Calderón RRT : 1955 Requested By: Brien Coughlin Order Number: [id number] Dane MD: Brien Coughlin Interpretive Statements Pulmonary [...] D.O. Signed By:01/26/24 1754 DD/ 1305 TD/TT: Dynamotor Repairer: Generic External Data Provider [facility] Final Result documented in this encounter Visit Diagnoses Not on filedocumented in this encounter Care Teams Barker Operator Relationship Specialty Start Date End Date Shaikh Larios MD [address] [place] [address] PCP - Alexx FLOWER 04/29/23 03/28/24 Trace Kelly MD [address] [place] [address] PCP - General Family Medicine 01/17/24 Argelia Cheng NP PCP - Alexx FLOWER 03/29/24 Argelia Cheng NP [address] [place] [address] Nurse Practitioner Family Medicine 11/10/23 documented as of this encounter
--- OUTSIDE RECORDS SUMMARY | 2024-10-03 11:46 | XMS_ITS | Patient Health Record ---
Author Organization [facility] [place] Address [address] [place] [address] Care Team Providers Care Electrical Contractor Name Role Phone Nolvia Jimenez CNP Primary Care Provider Unavail able Luis Schumacher Unavailable [phone] Allergies Allergen (clinical drug ingredient) Drug/Non Drug [...] Active Results Component Value Reference Range Notes RT pulmonary function test Reviewed date:01/26/2024 06:02:20 PM Interpretation: Performing Lab: Notes/Report: Source Facility: [place] [address] [place] [address] Respiratory Report Signed Patient: CHIARA JUARES MR#: [id number] : 1955 Acct:[id number] Age/Sex: 68 / F ADM Date: 01/24/24 Loc: CARD Attending Dr: Luis Schumacher D.O. Ordering Physician: Luis Schumacher D.O. Date of Service: 01/24/24 Procedure(s): RT pulmonary function test Accession Number(s): [id number] cc: [facility] Test Date: 2024-01-24 Pat Name: CHIARA JUARES Department: Room: - Gender: Female Erp Analyst: Frank Calderón RRT : 1955 Requested By: Luis Schumacher Order Number: [id number] Reading MD: Luis Schumacher Interpretive Statements Pulmonary [...] By: Luis Schumacher D.O. Signed By: 01/26/24 1610 DD/ 1305 TD/TT: Personal Counselor: [place] [address] Respiratory Report Signed Patient: DELVIN JUARES MR#: [id number] : 1955 Acct:[id number] Age/Sex: 68 / F ADM Date: 01/24/24 Loc: CARD Attending Dr: Luis Schumacher D.O. Ordering Physician: Luis Schumacher D.O. Date of Service: 01/24/24 Procedure(s): RT pulmonary function test Accession Number(s): [id number] cc: [facility] Test Date: 2024-01-24 Pat Name: CHIARA BARRIGA Department: 57 Room: - Gender: Female Erp Analyst: Frank Calderón RRT : 1955 Requested By: Luis Schumacher Order Number: [id number] Reading MD: Luis Schumacher Interpretive Statements Pulmonary [...] By: Tam Schumacher D.O. Signed By: 01/26/24 1754 DD/ 1305 TD/TT: Personal Counselor: CT lung screening low-dose Reviewed date:01/26/2024 06:55:01 AM Interpretation: Performing Lab: Notes/Report: Source Facility: [place] [address] [place] [address] CT Scan Report Signed Patient: CHIARA JUARES MR#: [id number] : 1955 Acct:[id number] Age/Sex: 68 / F ADM Date: 01/24/24 Loc: CARD Attending Dr: Luis Schumacher D.O. Ordering Physician: Luis Schumacher D.O. Date of Service: 01/24/24 Procedure(s): CT lung screening low-dose Accession Number(s): [id number] cc: BENTON,BRITTANY [place] [address] Patient Name: CHIARA JUARES MRN: [id number] date: 1955 Sex: F Assigned Patient Location: CARD Current Patient Location: Accession/Order Number: [id number] Exam Date: 01/24/2024 15:00 Report Date: 01/26/2024 [...] M.D. Signed By: 01/26/24608 DD/ 6 TD/TT: Personal Counselor: The [address] [address] [address] Scan Report Signed Patient: DELVIN JUARES MR#: [id number] : 1955 Acct:[id number] Age/Sex: 68 / F ADM Date: 01/24/24 Loc: CARD Attending Dr: Luis Schumacher D.O. Ordering Physician: Luis Schumacher D.O. Date of Service: 01/24/24 Procedure(s): CT belkys g screening low-dose Accession Number(s): [id number] cc: SHANDA BENTON [place] [id number] Patient Name: CHIARA JUARES MRN: [id number] date: 1955 Sex: F Assigned Patient Location: CARD Current Patient Location: Accession/Order Numb er: [id number] Exam Date: 15:00 Report Date: 01/26/2024 06:07 [...] M.D. Signed By: 01/26/24608 DD/ 6 TD/TT: Personal Counselor: HEMOGLOBIN Reviewed date:01/25/2024 07:12:59 AM Interpretation: Performing Lab: Notes/Report: [facility] , Hemoglobin 11.0 12.0-16.0 g/dL Performing Lab: see note ML - [facility] LB CT Chest Low Dose for Screen ing* Reviewed date:01/26/2024 06:53:52 AM Interpretation: Performing Lab: Notes/Report: Reason For Referral Reason Palliative care serv ices for severe COPD Diagnosis 1 COPD (chronic obstru ctive pulmonary disease) (J44.9) Referral Organization [facility] Referring Provider First Name Luis Referring Provider Last Name Ced Referring Provider Speciality Pulmonolog y Referred Provider Specialty Palliative C are General Notes Chandu Rodriguez 05/04 08:23:43 AM >Referral form and clinicals faxed to [facility]., Chandu Rodriguez 05/11/2024 11:07:35 AM >Per Patient-Jayesh is out of network for the patient. Patient states she spoke with Jayesh. Patient states she is going to hold off on the Palliative Care at this time. Referral Closed. Thank You! Referral Priority Routine Medications Medication SIG (Take, Route, Frequency, Duration) Notes Start Date End Date Status Aspirin 81 MG 1 tablet Orally Once a day Active Magnesium Oxide -Mg Supplement 400 (240 Mg) MG TAKE 1 TABLET BY MOUTH IN THE MORNING then TAKE 1 TABLET BY MOUTH AT BEDTIME Oral for 15 Days Active Atorvastatin Calcium 80 MG TAKE 1 TABLET BY MOUTH DAILY Oral for 90 Days Active Metoprolol Tartrate 50 MG TAKE 1 TABLET BY MOUTH TWICE DAILY Oral for 90 Days Active Ipratropium-Albuterol 0.5-2.5 (3) MG/3ML 3mL Inhalation QID for 90 days Dispense 360 ampules 08/11/2023 Active Isosorbide Mononitrate ER 60 MG 1 tablet in the morning Orally Once a day for 30 days Active Furosemide 20 MG 1 tablet Orally Once a day for 90 days Active Vitamin D 50 MCG (1999 UT) 1 tablet Oral ly Once a day Active guaiFENesin ER 600 MG 1 tablet as needed Orally every 12 hrs Active predniSONE 10 MG 1 tablet Orally Once a day for 90 days Take with food Active Farxiga 10 MG 1 tablet Orally Once a day for 30 days Active Ventolin HFA 108 (90 Base) MCG/ACT 2 puffs as needed for SOB Inhalation Q4H for 90 days Dispense #3 inhalers Active Cyclobenzaprine HCl 10 MG TAKE 1 TABLET BY MOUTH THREE TIMES DAILY NEEDED Oral for 30 days Active Dupixent 300 MG/2ML as directed Subcutaneous Active Olmesartan Medoxomil 40 MG 1 tablet Oral ly Once a day for 90 days Active Trelegy Ellipta 100-62.5-25 MCG/ACT 1 puff Inhalation Once a day for 90 days Rinse after use ; Dispense #3 inhalers Active Omeprazole 20 MG 1 capsule 30 minutes before morning meal Orally Once a day Active Immunizations Vaccine Route Administration Date Status [...] Problem Status W/U Status Risk Notes Problem 181256578 Chronic obstructive pulmonary disease, unspecified (J44.9) Active confirmed Problem 289525053 Obesity, unspecified (E66.9) Active confirmed Problem Chronic respiratory failure (22155989) Chronic respiratory failure with hypoxia (J96.11) Active confirmed Problem Long-term current use of inhaled steroid (253250027) nursing home (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 of inhaled steroids (Z79.51) Active confirmed Problem 422947736932201 nursing home (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 of systemic steroids (Z79.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 Problem COPD - Chronic obstructive pulmonary disease (08045386) COPD (chronic obstructive pulmonary disease) (J44.9) Active confirmed Problem Coronary artery disease (15393943) CAD (coronary artery disease) (I25.10) Active confirmed Problem Multiple pulmonary nodules (623923939) Multiple pulmonary nodules (R91.8) Active confirmed Problem Ex-tobacco user (finding) (573635749) History of tobacco abuse (Z87.891) Active confirmed Problem Old myocardial infarction (7069027) History of non-ST elevation myocardial infarction (NSTEMI) (I25.2) Active confirmed Problem 693482107 Body mass index [BMI] 35.0-35.9, adult (Z68.35) Active confirmed Vital Signs Heart Rate 92 /min 09/12/2024 3L O2 Activity/Resting RA- Resting Temperature 97.0 degrees Fahrenheit 09/12/2024 3L O2 Activity/Resting RA- Resting Respiratory Rate 20 /min 09/12/2024 3L O2 Activity/Resting RA- Resting Blood pressure diastolic 75 mm Hg 09/12/2024 3L O2 Activity/Resting RA- Resting Oximetry 93 % 09/12/2024 3L O2 Activity/Resting RA- Resting Height 63 in 09/12/2024 3L O2 Activity/Resting RA- Resting Blood pressure systolic 118 mm Hg 09/12/2024 3L O2 Activity/Resting RA- Resting Weight 195.6 lbs 09/12/2024 3L O2 Activity/Resting RA- Resting BMI 34.65 kg/m2 09/12/2024 3L O2 Activity/Resting RA- Resting Encounters Encounter Location Date Provider Diagnosis [facility] [address] [place] [address] 02/01/2024 [facility] COPD (chronic obstructive pulmonary disease) J44.9 ; Multiple pulmonary nodules R91.8 ; History of tobacco abuse Z87.891 ; Encounter for screening for malignant neoplasm of respiratory organs Z12.2 ; CAD (coronary artery disease) I25.10 ; 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 (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 of systemic 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 Z79.52 ; nursing home (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 of inhaled steroids Z79.51 ; Obesity, unspecified E66.9 and Body mass index [BMI] 35.0-35.9, adult Z68.35 [facility] [address] [place] [address] 05/03/2024 Luis Schumacher COPD (chronic obstructive pulmonary disease) J44.9 ; Multiple pulmonary nodules R91.8 ; History of tobacco abuse Z87.891 ; CAD (coronary artery disease) I25.10 ; nursing home (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 of inhaled steroids Z79.51 ; Obesity, unspecified E66.9 and Body mass index [BMI] 35.0-35.9, adult Z68.[address] [facility] [address] [address] 08/01/2024 [facility] COPD (chronic obstructive pulmonary disease) J44.9 ; Multiple pulmonary nodules R91.8 ; History of tobacco abuse Z87.891 ; termite 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 (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 of systemic steroids Z79.52 ; nursing home (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 of inhaled steroids Z79.51 and Obesity, unspecified E66.9 [facility] [address] [place] [address] 05/23/2024 [facility] COPD (chronic obstructive pulmonary disease) J44.9 Pulmonary Medicine [address] [address] 08/23/2024 [facility] COPD (chronic obstructive pulmonary disease) J44.9 ; Multiple pulmonary nodules R91.8 ; History of tobacco abuse Z87.891 ; nursing home (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 of systemic steroids Z79.52 ; nursing home (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 of inhaled steroids Z79.51 and Obesity, unspecified E66.9 [facility] [address] [place] [address] 09/12/2024 [facility] COPD (chronic obstructive pulmonary disease) J44.9 ; Chronic respiratory failure with hypoxia J96.11 ; Multiple pulmonary nodules R91.8 ; History of non-ST elevation myocardial infarction (NSTEMI) I25.2 ; History of tobacco abuse Z87.891 ; nursing home (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 of systemic steroids Z79.52 ; termite 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 (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 of inhaled steroids Z79.51 and Obesity, unspecified E66.[address] [facility] [address] [place] [address] 01/04/2024 [facility] Pulmonary [address] [address] 01/24/2024 [facility] Pulmonary [facility] [address] [place] [address] 05/11/2024 [facility]monary [facility] [address] [place] [address] 05/17/2024 Luis Schumacher [facility] [address] [place] [address] 09/06/2024 Luis Schumacher COPD (chronic obstructive pulmonary disease) J44.9 [facility] [address] [facility] [address] 09/07/2024 Luis Schumacher Assessments Encounter Date Diagnosis (ICD Code) Assessment Notes Treatment Notes Treatment Clinical Notes Section Notes 02/01/2024 COPD (chronic obstructive pulmonary disease) (ICD-10 - J44.9) Her breathing continues to decline despite attempting to maximize treatment. She is currently on prednisone daily. Trelegy was better than Advair 250, but it was too expensive and she remains on generic Advair. Assess patient for [place] valves. Her PFT shows FEV1 of 43%, [...] I stated I would have the interventional molasses coloring operator make that determination. -Pulmonary rehabilitation: She is [...] did not want to go to another molasses coloring operator, she wants to stay here with me. I explained that it is only for the procedure - I will still be her local molasses coloring operator. She did not want to persue endobronchial [...] I offered to refer her to either [facility] (e.g. Dr. Heard) or (e.g. Dr. Siddiqui), [...] reactions were noted. Post Injection Vitals taken. [facility]:[id number] 0. Lot#[id number]. Exp:11/26/2024. Patient was advised to self administer [...] not much else that can be done. 09/12/2024 Chronic respiratory failure with hypoxia (ICD-10 - J96.11) Jsjw-hk-jqku encounter performed with the patient to document [...] keep SpO2 @ 89% or greater. 09/12/2024 COPD (chronic obstructive pulmonary disease) (ICD-10 [...] monitoring d/t the NSTEMI and reduced EF. Nwit-it-swxb encounter performed with the patient to document continued need for a nebulizer with nebulized medications. -Current nebulized medications: DuoNeb -Symptom control: Improved with use -Reported side or adverse effects: None -Recommendations: Renew, refill, reorder nebulizer and supplies. 09/06/2024 COPD (chronic obstructive pulmonary disease) (ICD-10 - J44.9) 09/12/2024 Multiple pulmonary nodules (ICD-10 - R91.8) Unchanged nodule 04/18/2024 as far back as 01/20/2023. 08/23/2024 Multiple pulmonary nodules (ICD-10 - R91.8) [...] artery disease) (ICD-10 - I25.10) F/U with [facility] Cardiology. 08/01/2024 nursing home (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 of systemic steroids (ICD-10 - Z79.52) Discussed adverse effects of correction systemic steroids including, but not limited to: increased risk of cataracts, elevated blood sugars/worsening of underlying diabetes mellitus, impaired wound healing, gastrointestinal ulcers, osteoporosis. 08/23/2024 History of tobacco abuse (ICD-10 - Z87.891) 1ppd x 50 years, quit 2017 LDCT 01/24/2024 - RADS-2. LDCT due 12/2024. 09/12/2024 History of non-ST elevation myocardial infarction (NSTEMI) (ICD-10 - I25.2) 09/03/2024: NSTEMI type 2 secondary to pneumonia Now has reduced EF @ 44%. Restart cardiac rehab, F/U with [facility] Cardiology. 09/12/2024 History of tobacco abuse (ICD-10 - Z87.891) 1ppd x 50 years, quit 2016 LDCT 01/24/2024 - RADS-2. LDCT due 12/2024. 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 08/01/2024 nursing home (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 of inhaled steroids (ICD-10 - Z79.51) Patient was counseled to rinse & gargle with water after inhaled corticosteroid use. 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 02/01/2024 CAD (coronary artery disease) (ICD-10 - I25.10) F/U with [facility] Cardiology. 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 08/23/2024 nursing home (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 of inhaled steroids (ICD-10 - Z79.51) Patient was counseled to rinse & gargle with water after inhaled corticosteroid use. 09/12/2024 nursing home (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 of systemic steroids (ICD-10 - Z79.52) Discussed adverse effects of parts counterman systemic steroids including, but not limited to: increased risk of cataracts, elevated blood sugars/worsening of underlying diabetes mellitus, impaired wound healing, gastrointestinal ulcers, osteoporosis. 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 08/23/2024 Obesity, unspecified (ICD-10 - E66.9) Patient's weight is inducing a restrictive pulmonary physiology. Weight loss indicated: Decrease calories, increase activity. 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 02/01/2024 Obesity, unspecified (ICD-10 - E66.9) Patient's weight is inducing a restrictive pulmonary physiology. Weight loss indicated: Decrease calories, increase activity. 09/12/2024 Obesity, unspecified (ICD-10 - E66.9) Patient's weight is inducing a restrictive pulmonary physiology. Weight loss indicated: Decrease calories, increase activity. 02/01/2024 Body mass index [BMI] 35.0-35.9, adult (ICD-10 - Z68.35) 02/01/2024 Other 05/03/2024 Other 08/01/2024 Other Plan Of Treatment Next Appt Details Provider Name:Luis Schumacher, 11/22/2024 11:30:00 AM, [address] [place], [address], Insurance Providers Payer Name Payer Address Payer Phone Subscriber Number Group Number Insured Name Patient Relationship to Insured Coverage Start Date Coverage End Date [employer] AD[employer] PLAN [address] [place] [phone] [id number] [facility] Chiara Juares Self - patient is the insured 1 Medications Administered Medication Instructions Date of Administration [...] (syndrome of inappropriate ADH pro duction) E22.2 Chronic respiratory failure with hypoxia J96.11 History of tobacco abuse Z87.891 nursing home (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 of inhaled stero ids Z79.51 Long-term use of high-risk medication Z7 9.899 History of non-ST elevation myocardial i nfarction (NSTEMI) I25.2 Surgical History Surgery Date(Month/Year) cholecystectomy hysterectomy Cardiac Catheterization-2001, 07/14/2022 , 10/30/2022 & 07/03/2024 Hospitalization History Reason Date(Month/Year) Acute Respiratory Failure-[facility] 09/03 Arrhythmia & Hyponatremia-[facility] 3
--- OUTSIDE RECORDS SUMMARY | 2024-10-03 11:46 | XMS_ITS | Encounter Summary ---
Author Organization [facility] Healthcare Address [address] [place] [address] Care Team Providers Care Dope Firer Name Role Phone Argelia Cheng PULLER OVER Unavailable [phone] Trace Kelly MD Primary Care Provider [phone] Argelia Cheng PULLER OVER Unavailable [phone] Encounter Details Date Type Department Care Team (Late st Contact Info) Description 10/02/2024 Patient Outreach [facility] POPULATION HEALTH [address] [place] [place] [address] Gillian Mcnulty MA [address] [place] [address] Social History Tobacco Use Types Packs/Day Years [...] often do you attend chur ch or shinto services? 1 to 4 times per year 06/08/2024 Do you belong to any clubs o r organizations such as lutheran groups, unions, fraternal or athletic groups, or [...] and heating? Not hard at all 06/08/2024 [facility] - Occupational Stress [...] any time in the past 12 m [facility], were you homeless or living in a chcf (including now)? No 06/08/2024 Comments Unknown Sex and Gender Information Value Date Recorded Sex Assigned at Not on file Legal Sex Female 3:02 PM EDT Gender Identity Not on file Sexual Orientation Not on file documented as of this encounter Progress Notes * Gillian Mcnulty MA - 10/02/2024 3:47 PM EDT Pt contacted for weekly outreach call. Pt states she isn't feeling well today. Feels like she is coming down with something. Pt said her cardiology appt went well. She said he confirmed the breathing/lung issues were caused from CHF. She said the fluid around her heart went into the lungs. She is still using her O2 and continues to monitor her oxygen level. Pt said the miter grinder operator increased her to two water pills now and ordered labwork. She sees him again in October. documented in this encounter Plan of Treatment Upcoming Encounters Date Type Department Care Team (Late st Contact Info) Description 10/18/2024 2:20 PM EDT Office Visit [facility] [address] [place] [address] Nolvia Jimenez NP [address] [place] [address] documented as of this encounter Visit Diagnoses Diagnosis Essential (primary) hypertension- Primary Unspecified essential hypertension Chronic obstructive pulmonary disease, unspecified COPD type (HCC) documented in this encounter Care Teams Dope Firer Relationship Specialty Start Date End Date Trace Kelly MD [address] [place] [address] PCP - General Family Medicine 01/17/24 Argelia Cheng NP PCP - Alexx NM 03/29/24 Argelia Cheng NP Nurse Practitioner Family Medicine 11/10/23 documented as of this encounter
--- OUTSIDE RECORDS SUMMARY | 2024-10-03 11:46 | XMS_ITS | Encounter Summary ---
Author Organization [facility] Address [address] [place] [address] Care Team Providers Care Infantry Indirect Fire Crewmember Name Role Phone Shaikh ROCAEL Larios Unavailable [phone] Argelia Cheng NP Unavailable [phone] Trace Kelly MD Primary Care Provider [phone] Argelia Cheng NP Unavailable [phone] Encounter Details Date Type Department Care Team (Late st Contact Info) Description 01/26/2024 Clinisync Result Encounter [facility] External Department Unsolicited Provider, Generic External Data Social History Tobacco Use Types Packs/Day Years Used Date Smoking Tobacco: Former Cigarettes 986 - 2015 Smokeless Tobacco: Never Alcohol Use Standard Drinks/Week Comments Never 0 (1 standard drink = 0.6 oz pur e alcohol) [facility] [place] Occupat ional Health - Occupational Stress [...] 2:20 PM EDT Office Visit [facility]REW [address] [place] [address] Nolvia Jimenez, [place] [address] [place] [address] documented as of this encounter Procedures Procedure Name Priority Date/Time Associated Diagnosis Comments CT LUNG SCREENING LOW DOSE 01/26/2024 6:07 AM EDT documented in this encounter Results * CT LUNG SCREENING LOW DOSE (01/26/2024 6:07 AM EDT) Anatomical Region Laterality Modality Other 01/26/2024 6:07 AM EDT Narrative 01/26/2024 6:09 AM EDT [address] [address] [address] Scan Report Signed Patient: CHIARA EDUARDO MR#: [id number] : 1955 Acct:[id number] Age/Sex: 68 / F ADM Date: 01/24/24 Loc: CARD Attending Dr: Luis Schumacher D.O. Ordering Physician: Luis Schumacher D.O. Date of Service: 01/24/24 Procedure(s): CT lung screening low-dose Accession Number(s): [id number] cc: ARGELIA CHENG [address] [address] Patient Name: CHIARA EDUARDO MRN: [id number] date: 1955 Sex: F Assigned Patient Location: CARD Current Patient Location: Accession/Order Number: [id number] Exam Date: 01/24/2024 15:00 Report Date: 01/26/2024 [...] M.D. Signed By: 01/26/24608 DD/ 6 TD/TT: Tile Inspector: Procedure Note Radiology, Radiologist, - 01/26/2024 [place] [address] CT Scan Report Signed Patient: CHIARA EDUARDO [facility]#: [id number] : 4Acct:[id number] Age/Sex: 68 / FADM Date: 01/24/24 Loc: CARD Attending Dr: Luis Schumacher D.O. Ordering Physician: uLis Schumacher D.O. Date of Service: 01/24/24 Procedure(s): CT lung screening low-dose Accession Number(s): [id number] cc: ARGELIA CHENG [address] [address] Patient Name: CHIARA EDUARDO MRN: [id number] date: 1955 Sex: F Assigned Patient Location: CARD Current Patient Location: Accession/Order Number: [id number] Exam Date: 01/24/2024 15:00 Report Date: 01/26/2024 [...] Matos M.D. Signed By:01/26/24608 DD/ 6 TD/TT: Tile Inspector: Generic External Data Provider [facility] Final Result documented in this encounter Visit Diagnoses Not on filedocumented in this encounter Care Teams Infantry Indirect Fire Crewmember Relationship Specialty Start Date End Date Shaikh Larios MD [address] [place] [address] PCP - Alexx FLOWER 04/29/23 03/28/24 Trace Kelly MD [address] [place] [address] PCP - General Family Medicine 01/17/24 Argelia Cheng NP PCP - Alexx FLOWER 03/29/24 Argelia Cheng NP [address] [place] [address] Nurse Practitioner Family Medicine 11/10/23 documented as of this encounter
--- OUTSIDE RECORDS SUMMARY | 2024-10-03 11:46 | XMS_ITS | Encounter Summary ---
Author Organization [facility] Address [address] [place] [address] Care Team Providers Care Physical Therapy Coordinator Name Role Phone Shaikh ROCAEL Larios Unavailable [phone] Argelia Cheng SYSTEMS SUPPORT OFFICER Unavailable [phone] Trace Kelly MD Primary Care Provider Argelia Cheng SYSTEMS SUPPORT OFFICER Unavailable Encounter Details Date Type Department Care Team (Late st Contact Info) Description 02/16/2024 Orders Only [facility] [address] [place] [phone] Shaikh Larios MD [address] [facility] [place] [address] Social History Tobacco Use Types Packs/Day Years Used Date Smoking Tobacco: Former Cigarettes - 2015 Smokeless Tobacco: Never Alcohol Use Standard Drinks/Week Comments Never 0 (1 standard drink = 0.6 oz pur e alcohol) [facility] [place] of Occupat ional Health - Occupational Stress [...] 10/18/2024 2:20 PM EDT Office Visit [facility] [address] [place] [address] Nolvia Jimenez NP [address] [place] [address] documented as of this encounter [...] on filedocumented in this encounter Care Teams Physical Therapy Coordinator Relationship Specialty Start Date End Date Shaikh Larios MD [address] [place] [address] PCP - Alexx FLOWER 04/29/23 03/28/24 Trace Kelly MD [address] [place] [address] PCP - General Family Medicine 01/17/24 Argelia Cheng NP PCP - Alexx FLOWER 03/29/24 Argelia Cheng NP [address] [place] [address] Nurse Practitioner Family Medicine 11/10/23 documented as of this encounter
--- OUTSIDE RECORDS SUMMARY | 2024-10-03 11:47 | XMS_ITS | Encounter Summary ---
Author Organization [facility] Address [id number] [address] [place] [address] Care Team Providers Care Pick Pulling Machine Tender Name Role Phone Milvia Gay APRN-DENTURE PACKER Primary Care Provider [phone] Encounter Details Date Type Department Care Team (Late st Contact Info) Description 10/25/2019 Telephone [facility] FAMILY MEDIC[facility] [address] [place] [address] Milvia Gay APRN-CNP [address] [place] [address] Social History Tobacco Use Types Packs/Day Years [...] and Family Twice a week 01/14/2019 Attends Sikhism Services Never 01/14 Active Member of Clubs [...] Answer Date Recorded PHQ-2 Score 0 04/07/2018 [facility] of Occupat ional Health - Occupational Stress [...] documented as of this encounter Care Teams Pick Pulling Machine Tender Relationship Specialty Start Date End Date Milvia Gay APRN-MARISA [address] [place] [address] PCP - General Family Medicine 01/16/19 06/13/20 documented as of this encounter
--- OUTSIDE RECORDS SUMMARY | 2024-10-03 11:47 | XMS_ITS ---
Author Organization [facility] Address [address] [place] [address] Care Team Providers Care Typing Office Worker Name Role Phone Argelia Cheng CREDIT RISK SPECIALIST Unavailable [phone] Trace Kelly MD Primary Care Provider [phone] Argelia Cheng CREDIT RISK SPECIALIST Unavailable [phone] 30 Day Monitoring Program Status:Enrolled (Active) Start date:09/06/2024 Enrollment date:09/06/2024 Enrollment reason:Identified using hospital discharge data Case Team Name Relationship Phone Gillian Mcnulty MA(Responsible Staff) [phone] Continued Care and Services Coordination
--- OUTSIDE RECORDS SUMMARY | 2024-10-03 11:47 | XMS_ITS | Encounter Summary ---
Author Organization [facility] Address [address] [place] [address] Care Team Providers Care Light Oil Operator Name Role Phone Argelia Cheng MOLD BUNCH TRIMMER Unavailable [phone] Trace Kelly MD Primary Care Provider [phone] Argelia Cheng MOLD BUNCH TRIMMER Unavailable [phone] Encounter Details Date Type Department Care Team (Late st Contact Info) Description 09/04/2024 Orders Only [facility] [address] [place] [phone] Adan Pamrar MD [address] [place] [phone] (Work) Social History Tobacco Use Types Packs/Day Years [...] often do you attend chur ch or quaker services? 1 to 4 times per year 06/08/2024 Do you belong to any clubs o r organizations such as orthodox groups, unions, fraternal or athletic groups, [...] and heating? Not hard at all 06/08/2024 [facility] [place] of Occupat ional Health - Occupational Stress [...] any time in the past 12 m [facility], were you homeless or living in a fci (including now)? No 06/08/2024 Comments Unknown Sex [...] Office Visit [facility] [address] [place] [address] Nolvia Jimenez NP [address] [place] [phone] documented as of this encounter Procedures Procedure Name Priority Date/Time Associated Diagnosis Comments XR CHEST 1 VIEW Routine 09/04/2024 11:24 AM EDT documented in this encounter Results * XR chest 1 view (09/04/2024 11:24 AM EDT) Anatomical Region Laterality Modality Chest Radiographic Mary Beth ging us Adan Parmar MD IMG XR PROCEDURES Final Result documented in this encounter Visit Diagnoses Not on filedocumented in this encounter Care Teams Light Oil Operator Relationship Specialty Start Date End Date Trace Kelly MD [address] [place] [phone] PCP - General Family Medicine 01/17/24 Argelia Cheng NP PCP - Alexx FLOWER 03/29/24 Argelia Cheng NP Nurse Practitioner Family Medicine 11/10/23 documented as of this encounter
--- OUTSIDE RECORDS SUMMARY | 2024-10-03 11:47 | XMS_ITS | Encounter Summary ---
Author Organization [facility] Address [id number] [address] [place] [address] Care Team Providers Care Heat Pump Installer Name Role Phone Milvia Gay POWER PLANT TECHNICIAN-COMMERCIAL LOAN ANALYST Primary Care Provider [phone] Encounter Details Date Type Department Care Team (Late st Contact Info) Description 02/05/2020 Orders Only [facility] [address] [facility] [address] [place] [address] Nic Muñiz MD [facility] [address] 10/28/23 Left [place] [address] Social History Tobacco Use Types Packs/Day Years [...] and Family Twice a week 01/14/2019 Attends Cheondoism Services Never 01/14 Active Member of Clubs [...] Answer Date Recorded Total Score 0 01/22/2020 [facility] [place] of Occupat ional Health - Occupational Stress [...] documented as of this encounter Care Teams Heat Pump Installer Relationship Specialty Start Date End Date Milvia Gay APRN-MARISA [address] [place] [address] PCP - General Family Medicine 01/16/19 06/13/20 documented as of this encounter
--- OUTSIDE RECORDS SUMMARY | 2024-10-03 11:47 | XMS_ITS | Encounter Summary ---
Author Organization [facility] Address [address] [place] [address] Care Team Providers Care Operations Expert Name Role Phone Argelia Cheng PRESS CATCHER Unavailable [phone] Trace Kelly MD Primary Care Provider [phone] Argelia Cheng PRESS CATCHER Unavailable [phone] Encounter Details Date Type Department Care Team (Late st Contact Info) Description 05/03/2024 Orders Only [facility] [address] [place] [address] Shaikh Larios MD [address] [facility] [place] [address] Social History Tobacco Use Types Packs/Day Years Used Date Smoking Tobacco: Former Cigarettes 986 - 2016 Smokeless Tobacco: Never Alcohol Use Standard Drinks/Week Comments Never 0 (1 standard drink = 0.6 oz pur e alcohol) [facility] [place] of Occupat ional Health - Occupational Stress [...] Office Visit [facility] [address] [place] [address] Nolvia Jimenez NP [address] [place] [address] documented as of this encounter Procedures Procedure [...] on filedocumented in this encounter Care Teams Operations Expert Relationship Specialty Start Date End Date Trace Kelly MD [address] [place] [address] PCP - General Family Medicine 01/17/24 Argelia Cheng NP PCP - Alexx FLOWER 03/29/24 Argelia Cheng NP Nurse Practitioner Family Medicine 11/10/23 documented as of this encounter
--- OUTSIDE RECORDS SUMMARY | 2024-10-03 11:47 | XMS_ITS | Clinical Summary ---
Author Organization [facility] Address [address] [place] [address] Care Team Providers Care Management Lead Name Role Phone Argelia Cheng WATCH GUARD GATE Unavailable [phone] Trace Kelly MD Primary Care Provider [phone] Argelia Cheng WATCH GUARD GATE Unavailable [phone] Allergies Active Allergy Reactions Criticality Noted Date [...] UT) tabletIndications: Stage 3a chronic kidney disease (CMS-HCC) Take 1 tablet (25 mcg) by mouth Daily 60 tablet 1 01/18/20 24 Active atorvastatin (Lipitor) 80 MG tabletIndications: Other hyperlipidemia Take 1 tablet (80 mg) by mouth Daily 90 tablet 1 04/03/19 25 Active MAGNESIUM PO Take 200 mg by [...] days 45 tablet 1 06/09/19 25 Active Budeson-Glycopyrro l-Formoterol (Breztri Aerosphere) 160-9-4.8 MCG/ACT aerosol Inhale 160 mcg in the morning. Active dapagliflozin (Farxiga) 10 MG Take 10 mg by mouth in the morning. 07/04/19 25 025 Active metoprolol succinate XL (Toprol-XL) 50 MG 24 hr tablet Take 50 mg by mouth in the morning and 50 mg before bedtime. 09/06/19 25 Active nitroglycerin (Nitrostat) 0.[address] 0.4 mg under the tongue every 5 (five) minutes if needed for chest pain 09/06/19 25 Active azithromycin (Zithromax) 500 MG tablet Take 500 mg by mouth Daily 09/06/19 25 025 cefpodoxime (Vantin) 200 MG tablet Take 200 mg by mouth in the morning and 200 mg in the evening. 09/06/19 25 025 Active Problems Problem Noted Date Diagnosed Date Acute hypoxic respiratory failure 09/03/2024 Assessment & Plan (09/06/2024 6:42 PM EDT): On oxygen at this time Breathing is better Fu w pulmonology next week Pneumonia 09/03/2024 Assessment & Plan (09/06/2024 6:43 PM EDT): Finish atbs, cont fluids, oxygen Keep appt with pulmonology next week Elevated WBC count 07/26/2024 CRP elevated 07/26/2024 Morbid (severe) obesity due to excess calories 0 06/08/2024 Assessment & Plan (09/06/2024 6:44 PM EDT): Discussed with patient their BMI (actual, verses recommended). We have also discussed lifestyle modifications: attempts to perform physical activity as chronic conditions allow, also to monitor dietary intake: increasing protein/fruits/veggies and lowering carb intake (unless contraindicated). Limit sodas, juices, and sugary drinks. Assessment & Plan (06/08/2024 7:41 AM EDT): Discussed with patient their BMI (actual, verses recommended). We have also discussed lifestyle modifications: attempts to perform physical activity as chronic conditions allow, also to monitor dietary intake: increasing protein/fruits/veggies and lowering carb intake (unless contraindicated). Limit sodas, juices, and sugary drinks. Essential (primary) hypertension 06/08/2024 Assessment & Plan (09/06/2024 6:43 PM EDT): Please check blood pressure daily and record DASH diet Limit caffeine Take medication as directed Contact office if chest pain, pressure, dizziness, shortness of breath, swelling legs Recommend slow position changes Current meds: arb, b shyam, nitrate Assessment & Plan (06/08/2024 7:40 AM EDT): Please check blood pressure daily and record DASH diet Limit caffeine Take medication as directed Contact office if chest pain, pressure, dizziness, shortness of breath, swelling legs Recommend slow position changes Current meds: arb, b shyam, nitrate Body mass index (BMI) 35.0-35.9, adult Chronic kidney disease, stage 3b 06/08/2024 Assessment & Plan (09/06/2024 6:44 PM EDT): Goal to keep blood pressure well control Avoid nephrotoxic drugs if possible Continue w nephrology Assessment & Plan (06/08/2024 7:42 AM EDT): [...] pulmonology [facility] Coronary artery disease invo lving [place] coronary artery of [place] heart without angina pectoris 12/28/2016 Overview (04/12/2023): Last Assessment & Plan: Coronary artery disease is stable without any concerning symtpoms Continue GDMT- ASA, brilinta, toprol, imdur continue risk factor modifications- heart healthy diet, regular exercise as tolerated and continue all medications. Assessment & Plan (09/06/2024 6:43 PM EDT): Reviewed cardiology notes from [facility] Did not feel elevated trop was related to [place] Assessment & Plan (06/08/2024 7:39 AM EDT): Under the care of cardiology Current meds: statin, asa, imdur, b shyam, arb, diuretic, and ranexa Aggressive risk factor modification Assessment & Plan (04/12/2023 2:53 PM EST): Stable. No CP, SOB, palpitations. On ASA, Effient, BB, statin Follows [facility] cardiology. Lower back pain 12/28/2016 Assessment & Plan (06/08/2024 5:05 PM EDT): Flexeril prn Resolved Problems Problem Noted Date Diagnosed Date Resolved Date Other hyperlipidemia 04/12/2023 025 Assessment & Plan (04/12/2023 2:52 PM EST): At goal. 01/18. On Lipitor 80 mg daily. Stage 3a chronic kidney disease 04/12/2023 06/08/2024 Assessment & Plan (04/12/2023 2:51 [...] BP in office today is TOO HIGH . Currently taking Olmesartan 40mg, Metoprolol 50mg BID Imdur, 60mg Daily. Furosemide 20mg every other day. Will increase Lasix to 20mg Daily. Denies chest pain, shortness of breath, dizziness, swelling in extremities. Pt sees Cardiology 05/23/2024. Given BP log, advised pt to record BP and bring log and to call office in 2 weeks with BP readings. Encounters Date Type Department Care Team Description 10/02/2024 Patient Outreach [facility] [place] [address] [place] [address] Gillian Mcnulty MA 09/18/2024 Patient Outreach [facility] [place] [address] [place] [address] Gillian Mcnulty MA 09/12/2024 Patient Outreach [facility] [place] [address] [place] [address] Gillian Mcnulty MA 09/06/2024 3:00 PM EDT Office Visit [facility] [address] [place] [address] Nolvia Jimenez, NIXON Pneumonia of right lower lobe due to infectious organism (Primary Dx); Acute hypoxic respiratory failure (HCC); Coronary artery disease involving che[place] coronary artery of [place] heart without angina pectoris ; Essential (primary) hypertension ; Chronic kidney disease, stage 3b ([facility]); Morbid (severe) obesity due to excess calories ([facility]-HCC) 09/06/2024 Patient Outreach [facility] [address] [place] [address] Lovely Cruz LPN 09/04/2024 Orders Only [facility] [address] [place] [phone] Adan Parmar MD 09/04/2024 Abstract [facility] [address] [place] [phone] Genesis Jimeneza, WATCH GUARD GATE 09/03/2024 Clinisync Result Encounter [facility] External Department Unsolicited Provider, Generic External Data 08/02/2024 Clinisync Result Encounter [facility] External Department Unsolicited Aicsravanthi Nolvia, WATCH GUARD GATE 07/27/2024 External Result Encounter [facility] External Department Unsolicited Genesis Jimeneza, WATCH GUARD GATE 07/26/2024 Orders Only [facility] [address] [place] [phone] Aichholsaloni Nolvia, WATCH GUARD GATE Leukocytosis, unspecified type (Primary Dx); CRP elevated 07/26/2024 Clinisync Result Encounter [facility] External Department Unsolicited Tony Nolvia, WATCH GUARD GATE 07/26/2024 Orders Only [facility] [address] [place] [phone] Aicsravanthi Nolvia, WATCH GUARD GATE Leukocytosis, unspecified type (Primary Dx) 07/25/2024 Clinisync Result Encounter [facility] External Department Unsolicited Provider, Generic External Data 07/17/2024 Clinisync Result Encounter [facility] External Department Unsolicited Provider, Generic External Data from Last 3 Months Family History Medical History Relation Name Comments Heart disease Father Hypertension Father COPD Mother Heart disease Mother Hypertension Mother Stroke Mother Emphysema Sister Relation Name Status Comments Father Mother Sister Social History Tobacco Use Types Packs/Day Years Used Date Smoking Tobacco: Former Cigarettes 30 1 986 - 2016 Smokeless Tobacco: Never Tobacco Cessation:Counseling Given: Not [...] 06/08/2024 How often do you attend chur or moravian services? 1 to 4 times per year 06/08/2024 Do you belong to any clubs o r organizations such as confucianist groups, unions, fraternal or athletic groups, or [...] and heating? Not hard at all 06/08/2024 [facility] Occupat ional Health - Occupational [...] any time in the past 12 m [facility], were you homeless or living in a fpc (including now)? No 06/08/2024 Comments Unknown Sex and Gender Information Value Date Recorded Sex Assigned at Not on file Legal Sex Female 3:02 PM EDT Gender Identity Not on file Sexual Orientation Not on file Last Filed Vital Signs Vital Sign Reading Time Taken Comments Blood Pressure 128/98 09/06/2024 3:24 PM EDT Pulse 98 09/06/2024 3:24 PM EDT Temperature 37 C (98.6 F) 09/06/2024 3:24 PM EDT Respiratory Rate 20 09/06/2024 3:24 PM EDT Oxygen Saturation 95% 09/06/2024 3:24 PM EDT Inhaled Oxygen Concentration - - Weight 90.8 kg (200 lb 3.2 oz) 09/06/2024 3:24 P M EDT Height 160 cm (5' 3 ) 04/26/2024 3:02 PM EST Body Mass Index 35.46 04/26/2024 3:02 PM EST Plan of Treatment Upcoming Encounters Date Type Department Care Team (Late st Contact Info) Description 10/18/2024 2:20 PM EDT Office Visit [facility] [address] [place] [address] Nolvia Jimenez NP [address] [place] [address] Health Maintenance Due Date Last Done Comments CT Colonography 1955 Colonoscopy 1953 FIT 1953 FOBT 1955 Lung Cancer Screening Shared Decision Making 1955 Sigmoidoscopy 1955 Influenza Vaccine (#1) 2024 Medicare Annual Wellness (AWV) 01/16/2025 01/17/2024, 01/17/2024, 01/14/2023, Additional history exists Pneumococcal Vaccine: 65+ Years (1 of 2 - PCV) 01/16/2025 Postponed from 1972 (Patient Refused) Colorectal Cancer Screening 02/14/2027 FIT-DNA 02/14/2027 02/15/2024, 02/08/2024 Mammogram Discontinued Procedures Procedure Name Priority Date/Time Associated Diagnosis Comments XR CHEST 1 VIEW Routine 09/04/2024 11:24 AM EDT BLOOD CULTURE 2 Routine 09/03/2024 5:52 AM EDT BLOOD CULTURE 1 Routine 09/03/2024 4:58 AM EDT ALL C REACTIVE PROTEIN Routine 11:15 AM EDT ALL CBC WITH AUTO DIFF Routine 11:15 AM EDT ALL C REACTIVE PROTEIN Routine 12:05 PM EDT [facility] CMP (CMP) (FOR REMOTE [facility] USE) Routine 07/26/2024 12:05 PM EDT ALL SED RATE Routine 07/26/2024 12:05 PM EDT ALL CBC WITH AUTO DIFF Routine 12:05 PM EDT URINE CULTURE - [facility] Routine 07/26/2024 11:55 AM EDT TBH UA [...] CREAT RATIO Routine 07/17/2024 11:36 AM EDT LAB COLOGUARD COLON CANCER SCREEN Routine 02/15/2024 10:21 AM EST from Last 3 Months or Most Recently Relevant to Health Maintenance Results * XR chest 1 view (09/04/2024 11:24 AM EDT) Anatomical Region Laterality Modality Chest Radiographic Mary Beth ging us Adan Parmar MD IMG XR PROCEDURES Final Result * BLOOD CULTURE 2 (09/03/2024 5:52 AM EDT) BLOOD CULTURE 2 Blood Culture 2 NG5D NO GROWTH AT 5 DAYS.^NO GROWTH AT 5 DAYS. TBH 09/03/2024 5:52 AM EDT 09/03/2024 5:57 AM EDT [facility] - 09/08/2024 2:45 PM EDT Generic External Data Provider LAB BLOOD ORDERAB LES Final Result [facility] * BLOOD CULTURE 1 (09/03/2024 4:58 AM EDT) BLOOD CULTURE 1 Blood Culture 1 NG5D NO GROWTH AT 5 DAYS.^NO GROWTH AT 5 DAYS. TB 09/03/2024 4:58 AM EDT 09/03/2024 5:52 AM EDT [facility] - 09/08/2024 2:45 PM EDT Generic External Data Provider LAB BLOOD ORDERAB LES Final Result Performing Organization Address City/[facility] Co de Phone Number [facility] * (ABNORMAL) ALL CBC WITH AUTO DIFF (08/02/2024 11:15 AM EDT) Only the most recent of3 resultswithin the time period is included. Pathologist [facility] TB WBC 10.7 4.0 - 11.0 10 3/uL TBH TB RBC 3.93(L) 4.20 - 5.40 10 6/uL TBH TB HGB 12.4 12.0 - 16.0 g/dL TB TB HCT 38.4 36.0 - 48.0 % TB TB MCV 97.7 81.0 - 99.0 fL TB TB MCH 31.6 26.7 - 34.0 pg TBH TB MCHC 32.3 29.9 - 35.2 g/dL TB TB RDW 14.1 11.0 - 15.0 % TB TB PLT 370 150 - 450 10 3/uL TB TB MPV 9.0(L) 9.5 - 13.5 fL TB NEUTROPHILS PERCENT AUTO 70.2 43.0 - 75.0 % TBH LYMPHOCYTES PERCENT AUTO 19.2(L) 20.5 - 60.0 % TB MONOCYTES PERCENT AUTO 8.2 1.7 - 12.0 % TB TBH EO % 0.9 0.9 - 7.0 [...] NP CLINISYNC Final Result Performing Organization Address [facility]/ZIP Co de Phone Number CLINISYNC TB * ALL C REACTIVE PROTEIN (08/02/2024 11:15 AM EDT) Only the most recent of2 resultswithin the time period is included. C REACTIVE PROTEIN <0.50 <=0.50 mg/dL TBH 08/02/2024 11:1 5 AM EDT 08/02/2024 11:23 AM EDT Narrative CLINISYNC - 08/02/2024 12:17 PM EDT Nolvia Jimenez NP CLINISYNC Final Result CLINISYNC TB * (ABNORMAL) [facility] CMP (CMP) (FOR REMOTE [facility] USE) (07/26/2024 12:05 PM EDT) SODIUM 138 136 - 145 mmol/L TBH POTASSIUM 4.1 3.5 - 5.1 mmol/L TBH CHLORIDE 101 98 - 107 mmol/L TBH CARBON DIOXIDE 28.2 21.0 - 32.0 mmol/L TBH ANION GAP 12.9 TBH GLUCOSE 100 74 - 106 mg/dL TBH BLOOD UREA NITROGEN 24.0(H) 7.0 - 18.0 mg/dL TBH CREATININE 1.57(H) 0.55 - 1.02 mg/dL TBH TBH EGFR-AF BOT[place]WANAN 39(L) >=60 mL/min/1. 73m 2 TBH TBH EGFR-NON AF [place]N 32(L) >=60 mL/min/1. 73m 2 TBH BUN CREATININE RATIO 15.3 TBH CALCIUM 8.8 8.5 - 10.1 mg/dL TBH BILIRUBIN TOTAL 0.3 0.2 - 1.0 mg/dL TBH ASPARTATE AMINO TRANSFERASE 14(L) 15 - 37 U/L TBH ALANINE AMINOTRANSFERASE 17 14 - 59 U/L TBH ALKALINE PHOSPHATASE 77 46 - 116 U/L TBH TOTAL PROTEIN 7.0 6.4 - 8.2 g/dL TBH ALBUMIN LEVEL 3.2(L) 3.4 - 5.0 g/dL TBH GLOBULIN 3.8 g/dL TBH ALBUMIN GLOBULIN RATIO 0.8 TBH 07/26/2024 12:0 5 PM EDT 07/26/2024 12:06 PM EDT Narrative CLINISYNC - 07/26/2024 12:30 PM EDT us Nolvia Jimenez WATCH GUARD GATE CLINISYNC Final Result CLINISYNC TB * (ABNORMAL) ALL SED RATE (07/26/2024 12:05 PM EDT) [facility] SED RATE 46(H) <=30 mm/hr TB 07/26/2024 12:0 5 PM EDT 07/26/2024 12:06 PM EDT Narrative CLINISYNC - 07/26/2024 12:14 PM EDT Nolvia Jimenez NP CLINISYNC Final Result CLINISYNC TB * URINE CULTURE - [facility] (07/26/2024 11:55 AM EDT) [facility] URINE CULTURE - [facility] Urine Culture - [facility] 50,000 colonies/ml mixed [facility] URINE CULTURE - [facility] bacterial skin contaminants [facility] URINE CULTURE - [facility] 2 Days [facility] URINE CULTURE - [facility] URINE CULTURE - [facility] Testing performed at [facility] URINE CULTURE - [facility] [address] [place] [address] [facility] 07/26/2024 11:5 5 AM EDT 07/26/2024 12:06 PM EDT Narrative CLINISYNC - 07/31/2024 9:29 AM EDT us Nolvia Jimenez NP LAB BLOOD ORDERABLES Final Resu lt CLINISYNC TBH * (ABNORMAL) TBH UA (CLEAN/CATCH) MICROSCOPIC IF INDICATE (07/26/2024 11:55 AM EDT) [facility] COLOR URINE LT. YELLOW YELLOW TBH CLARITY [...] Narrative CLINISYNC - 07/26/2024 12:17 PM EDT us Nolvia Jimenez NP CLINISYNC Final Result CLINISYNC TBH * Urine culture (07/26/2024 11:53 AM EDT) [facility] NOTE 50,000 colonies/ml mixed bacterial skin contaminants 2 Days 08/07/2024 9:51 AM EDT [facility] Urine Urine specimen obtained by clean catch procedure / Unknown 07/26/2024 11:53 AM EDT 07/27/2024 1:15 PM EDT Nolvia Jimenez WATCH GUARD GATE LAB MICROBIOLOGY - GENERAL GRAY STUART Final Result Performing Organization Address City/[facility]/ZIP Co de Phone Number [facility] [address] [place] [address], [facility] [address] [place] [address] * (ABNORMAL) MHPT DIFFERENTIAL (07/25/2024 11:15 AM EDT) [facility] SEGMENTED NEUTROPHILS % MANUAL 87.0(H) 43.0 - [...] Narrative CLINISYNC - 07/25/2024 12:02 PM EDT us Generic External Data Provider CLINISYNC F inal Result CLINISYNC TBH * (ABNORMAL) ALL BASIC METABOLIC PANEL (07/25/2024 11:15 AM EDT) SODIUM 135(L) 136 - 145 mmol/L TBH POTASSIUM 4.6 3.5 - 5.1 mmol/L TBH CHLORIDE 100 98 - 107 mmol/L TBH CARBON DIOXIDE 28.4 21.0 - 32.0 mmol/L TBH ANION GAP 11.2 TBH GLUCOSE 122(H) 74 - 106 mg/dL TBH BLOOD UREA NITROGEN 30.0(H) 7.0 - 18.0 mg/dL TBH CREATININE 1.65(H) 0.55 - 1.02 mg/dL TBH TBH EGFR-AF BOTSWANAN 37(L) >=60 mL/min/1.7 3m 2 TBH TBH EGFR-NON AF BOT[place]N 31(L) >=60 mL/min/1.7 3m 2 TBH BUN CREATININE RATIO 18.2 TBH CALCIUM 8.9 8.5 - 10.1 mg/dL TBH 07/25/2024 11:1 5 AM EDT 07/25/2024 11:21 AM EDT Narrative CLINISYNC - 07/25/2024 11:42 AM EDT Generic External Data Provider CLINISYNC F inal Result Performing Organization Address [facility] de Phone Number CLINISYNC TB * (ABNORMAL) [facility] PTH, INTRAOPERATIVE (07/17/2024 11:55 AM EDT) PTH, INTACT 68(A) 15 - 65 pg/mL TBH Comment: Performed at: [address] [id number] Lobby Porter: True Herron PhD, Phone: [phone] 07/17/2024 11:5 5 AM EDT 07/17/2024 11:57 AM EDT Narrative CLINISYNC - 07/18/2024 12:08 PM EDT Generic External Data Provider CLINISYNC F inal Result Performing Organization Address City/[facility]/ZIP Co de Phone Number CLINISYNC TB * (ABNORMAL) [facility] CBC WITH PLATELET NO DIFFERENTIAL (07/17/2024 11:55 AM EDT) TB WBC 9.1 4.0 - 11.0 10 3/uL TBH TBH RBC 4.00(L) 4.20 - 5.40 10 6/uL TBH TBH HGB 12.8 12.0 - 16.0 g/dL TB TB HCT 39.0 36.0 - 48.0 % TBH TBH MCV 97.5 81.0 - 99.0 fL TBH TBH MCH 32.0 26.7 - 34.0 pg TBH TBH MCHC 32.8 29.9 - 35.2 g/dL TBH TBH RDW 14.9 11.0 - 15.0 % TBH TBH PLT 273 150 - 450 10 3/uL TBH TBH MPV 9.5 9.5 - 13.5 fL TBH 07/17/2024 11:5 5 AM EDT 07/17/2024 11:57 AM EDT Narrative CLINISYNC - 07/17/2024 12:08 PM EDT Generic External Data Provider CLINISYNC F inal Result Performing Organization Address City/[facility] Co de Phone Number [facility] * ALL URIC ACID (07/17/2024 11:55 AM EDT) Pathologist [facility] URIC ACID 5.0 2.6 - 6.0 mg/dL TB 07/17/2024 11:5 5 AM EDT 07/17/2024 11:57 AM EDT Narrative CLINISYNC - 07/17/2024 2:22 PM EDT Generic External Data Provider CLINISYNC F inal Result Performing Organization Address City/[facility] Co de Phone Number [facility] * (ABNORMAL) ALL RENAL FUNCTION PANEL (07/17/2024 11:55 AM EDT) SODIUM 135(L) 136 - 145 mmol/L TBH POTASSIUM 4.9 3.5 - 5.1 mmol/L TBH CHLORIDE 99 98 - 107 mmol/L TBH CARBON DIOXIDE 27.2 21.0 - 32.0 mmol/L TBH ANION GAP 13.7 TBH GLUCOSE 105 74 - 106 mg/dL TBH BLOOD UREA NITROGEN 20.0(H) 7.0 - 18.0 mg/dL TBH CREATININE 1.44(H) 0.55 - 1.02 mg/dL TBH TBH EGFR-AF BOTSWANAN 43(L) >=60 mL/min/1.7 3m 2 TBH TBH EGFR-NON AF BOT[place]N 36(L) >=60 mL/min/1.7 3m 2 TBH BUN CREATININE RATIO 13.9 TBH CALCIUM 8.8 8.5 - 10.1 mg/dL TBH PHOSPHORUS 3.2 2.6 - 4.7 mg/dL TBH ALBUMIN LEVEL 3.4 3.4 - 5.0 g/dL TBH 07/17/2024 11:5 5 AM EDT 07/17/2024 11:57 AM EDT Narrative CLINISYNC - 07/17/2024 2:22 PM EDT Generic External Data Provider CLINISYNC F inal Result Performing Organization Address [facility] Co de Phone Number CLINISYNC [facility] * ALL MAGNESIUM (07/17/2024 11:55 AM EDT) Pathologist [facility] MAGNESIUM 2.1 1.8 - 2.4 mg/dL TB 07/17/2024 11:5 5 AM EDT 07/17/2024 11:57 AM EDT Narrative CLINISYNC - 07/17/2024 2:22 PM EDT Generic External Data Provider CLINISYNC F inal Result CLINISYNC [facility] * (ABNORMAL) TBH URINE T PROTEIN CREAT RATIO (07/17/2024 11:36 AM EDT) TOTAL PROTEIN URINE RANDOM 25.2(H) <=11.9 mg/dL TBH CREATININE URINE RANDOM 68.16 20.00 - 300.00 mg/dL TBH PROTEIN CREATININE RATIO URINE 0.37 TBH 07/17/2024 11:3 6 AM EDT 07/17/2024 11:57 AM EDT Narrative ESTELA - 07/17/2024 12:08 PM EDT us Generic External Data Provider CLINISYNC F inal Result ESTELA [facility] * Cologuard?? colon cancer screening (02/15/2024 10:21 AM EST) Stool Shaikh [facility] ORDER ADRIEN Final Result from Last 3 Months or Most Recently Relevant to Health Maintenance Insurance [employer] Advance Directives Documents on File Type Date Recorded Patient Team Assistant Expl anation Power of Cream Cheese Maker 09/06/2024 3:49 PM Healt h care power of assistant district attorney-[facility] Care Teams Management Lead Relationship Specialty Start Date End Date Trace Kelly MD [address] [place] [address] PCP - General Family Medicine 01/17/24 Argelia Cheng NP PCP - Alexx FLOWER 03/29/24 Argelia Cheng NP Nurse Practitioner Family Medicine 11/10/23
--- OUTSIDE RECORDS SUMMARY | 2024-10-03 11:47 | XMS_ITS | Encounter Summary ---
Author Organization [facility] Address [address] [place] [address] Care Team Providers Care Manager Behavior Name Role Phone Argelia Cheng RUNNER WORKER Unavailable [phone] Trace Kelly MD Primary Care Provider Argelia Cheng RUNNER WORKER Unavailable Encounter Details Date Type Department Care Team (Late st Contact Info) Description 09/04/2024 Abstract [facility] [address] [place] [id number] Nolvia Jimenez NP [address] [place] [id number] Social History Tobacco Use Types Packs/Day Years [...] often do you attend chur ch or yazidi services? 1 to 4 times per year 06/08/2024 Do you belong to any clubs o r organizations such as uatsdin groups, unions, fraternal or athletic groups, or [...] and heating? Not hard at all 06/08/2024 [facility] [place] of Occupat ional Health - Occupational Stress [...] any time in the past 12 m [facility], were you homeless or living in a custodial (including now)? No 06/08/2024 Comments Unknown Sex and Gender Information Value Date Recorded Sex Assigned at Not on file Legal Sex Female 3:02 PM EDT Gender Identity Not on file Sexual Orientation Not on file documented as of this encounter Plan of Treatment Upcoming Encounters Date Type Department Care Team (Late st Contact Info) Description 10/18/2024 2:20 PM EDT [facility] [address] [place] [address] Nolvia Jimenez NP [address] [place] [address] documented as of this encounter Visit Diagnoses Not on filedocumented in this encounter Care Teams Manager Behavior Relationship Specialty Start Date End Date Trace Kelly MD [address] [place] [address] PCP - General Family Medicine 01/17/24 Argelia Cheng NP PCP - Alexx FLOWER 03/29/24 Argelia Cheng NP Nurse Practitioner Family Medicine 11/10/23 documented as of this encounter
--- OUTSIDE RECORDS SUMMARY | 2024-10-03 11:47 | XMS_ITS | Clinical Summary ---
Author Organization [facility] Address [address] [place] [address] Care Team Providers Care Tax Economist Name Role Phone Nolvia Jimenez MD Primary Care Provider [phone] Brien Coughlin MD Unavailable Allergies Active Allergy Reactions Criticality Noted Date Comments Clopidogrel 12/28/2016 Hydrochlorothiazide 12/28/2016 Exfoliative Dermatitis Penicillins 12/28/2016 Sodium Chloride 04/08/2023 Sulfa (Sulfonamide Antibiotics) Unknown 03/29 Vancomycin 12/28/2016 Medications aspirin 81 mg EC tablet Take 81 mg by mouth in the morning. 012 Active omeprazole (PriLOSEC) [address] capsule Take 20 mg by mouth before breakfast. 014 Active albuterol 90 mcg/actuation inhaler Inhale 2 puffs every 4 (four) hours if needed for shortness of breath. 022 Active cyclobenzaprine (Flexeril) 10 mg tablet Take 10 mg by mouth if needed in the morning, at noon, and at bedtime for muscle spasms. 023 Active cholecalciferol (Vitamin D-3) 50 MCG (1999) tablet Take 2,000 Units by mouth in the morning. Active ipratropium-alb uteroL (Duo-Neb) 0.5-2.5 mg/3 mL nebulizer solution Take 3 mL by nebulization 4 times a day. Active atorvastatin (Lipitor) 80 mg tabletIndicatio ns:Essential hypertension Take 1 tablet (80 mg) by mouth in the morning. 90 tablet 3 024 2024 Active olmesartan (BENIcar) 40 mg tabletIndicatio ns:Essential hypertension Take 1 tablet (40 mg) by mouth once daily as directed. 90 tablet 3 024 2024 Active predniSONE (Deltasone) 10 mg tablet Take 10 mg by mouth in the morning. Active dupilumab (Dupixent Syringe) 100 mg/0.67 mL syringe Inject 300 mg under the skin every 14 (fourteen) days. Active isosorbide mononitrate ER (Imdur) 60 mg 24 hr tabletIndicatio ns:Other chest pain Take 1 tablet (60 mg) by mouth once daily as directed. Do not crush or chew. 30 tablet 3 025 2024 Active budesonide-glyc opyr-formoterol (Breztri Aerosphere) 160-9-4.8 mcg/actuation HFA aerosol inhaler Inhale 160 mcg in the morning. Active magnesium 200 mg tablet Take 1 tablet by mouth in the morning. Active furosemide (Lasix) 20 mg tabletIndicatio ns:Pneumonia of right lower lobe due to infectious organism Take 1 tablet (20 mg) by mouth in the morning. 30 tablet 2 Active nitroglycerin (Nitrostat) 0.4 mg SL tabletIndicatio ns:Pneumonia of right lower lobe due to infectious organism Place 1 tablet (0.4 mg) under the tongue every 5 (five) minutes if needed for chest pain. 25 tablet 2 Active metoprolol succinate XL (Toprol-XL) 50 mg 24 hr tabletIndicatio ns:hypertension Take 1 tablet (50 mg) by mouth two times daily. Do not crush or chew. 60 tablet 2 Active spironolactone (Aldactone) 25 mg tabletIndicatio ns:Heart failure with mildly reduced ejection fraction (CMS/HCC) Take 1 tablet (25 mg) by mouth in the morning. 30 tablet 5 025 2024 Active dapagliflozin propanediol (Farxiga) 10 mgIndications:C hronic heart failure with preserved ejection fraction (CMS/HCC) Take 1 tablet (10 mg) by mouth in the morning. 90 tablet 025 2024 Active fluticasone propion-salmete roL (Advair Diskus) 250-50 mcg/dose diskus inhaler Inhale 1 puff two times daily. 023 2024 Discontinued(T herapy completed) Trelegy Ellipta 100-62.5-25 mcg blister with device Inhale 1 puff in the morning. 025 2024 Discontinued(T herapy completed) furosemide (Lasix) 20 mg tabletIndicatio ns:Essential hypertension Take 1 tablet (20 mg) by mouth every other day. 15 tablet 025 2024 Discontinued metoprolol succinate XL (Toprol-XL) 50 mg 24 hr tabletIndicatio ns:hypertension Take 1 tablet (50 mg) by mouth two times daily. Do not crush or chew. 60 tablet 025 2024 Discontinued dapagliflozin propanediol (Farxiga) 10 mgIndications:C hronic heart failure with preserved ejection fraction (CMS/HCC) Take 1 tablet (10 mg) by mouth in the morning. 30 tablet 3 025 2024 Discontinued(R eorder) azithromycin (Zithromax) 500 mg tabletIndicatio ns:Pneumonia of right lower lobe due to infectious organism Take 1 tablet (500 mg) by mouth 1 (one) time each day at the same time for 1 dose. 1 tablet 025 2024 cefpodoxime (Vantin) 200 mg tabletIndicatio ns:Pneumonia of right lower lobe due to infectious organism Take 1 tablet (200 mg) by mouth two times daily for 5 days. 10 tablet 025 2024 Active Problems Problem Noted Date Diagnosed Date Elevated troponin 09/04/2024 Assessment & Plan (09/04/2024 12:39 PM EDT): Likely type II PR, supply/demand mismatch EKG shows sinus rhythm with PVCs Echo pending NSTEMI (non-ST elevated myocardial infarction) 0 09/03/2024 Assessment & Plan (09/04/2024 2:46 PM EDT): Coronary artery disease is unchanged. Continue current [...] during lookback period of 72 hours. Pneumonia 09/03/2024 Assessment & Plan (09/04/2024 2:46 PM EDT): - Patient was requiring nonrebreather upon arrival to [facility] - has been switched to high flow nasal cannula -Chest x-ray at [facility] showed right lower lobe pneumonia - 09/04/2024 x-ray done at [facility] was consistent with the previously mentioned findings [...] IVPB 2 g in NS 50 mL (Mini- Bag Plus) - Reassess antibiotic plan after receiving results from the sputum culture No associated orders from this encounter found during lookback period of 72 hours. Acute hypoxic respiratory failure 09/03/2024 Assessment & Plan (09/04/2024 12:39 PM EDT): Secondary to right lower lobe pneumonia likely component of CHF Echocardiogram pending Continue current antibiotics with Rocephin and Zithromax Lasix switched to 40 mg daily instead of every other day 20 mg Continue DuoNeb as needed Sputum culture has few gram-positive cocci in pairs Influenza A/B negative as well as COVID-19. Mycoplasma PCR Assessment & Plan (09/04/2024 2:46 PM EDT): - Patient was requiring nonrebreather upon arrival to [facility] - has been switched to high flow nasal cannula - Patient was on Lasix 20 mg every other day - switching to 40 mg daily, monitor I's and O's and daily weight - Continue with DuoNeb as needed No associated orders from this encounter found during lookback period of 72 hours. 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 In light of COPD please determine with Dr Coughlin if [facility] amiodarone if feasible. 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 Hypomagnesemia 10/27/2022 Hyponatremia 10/27/2022 Arrhythmia 10/26/2022 Assessment & Plan (11/17/2022 2:11 PM EDT): Reviewed rhythm strips from Cardiac rehab and normal sinus rhythm, no PVCS noted or VT Chest pain 07/08/2022 Overview (07/08/2022): Added automatically from request for surgery [id number] Former smoker 01/22/2020 Health care maintenance 01/22/2020 Diuretic-induced hypokalemia 01/16/2018 History of acute inferior wall PR 01/13/2018 Bladder prolapse, female, acquired 12/28/2016 Chronic GERD 12/28/2016 COPD (chronic obstructive pulmonary disease) 04/2016 Overview (07/08/2022): Managed by Dr. White. Assessment & Plan (09/04/2024 12:39 PM EDT): Patient at home on oral prednisone 10 mg daily Continue Dulera and Incruse Ellipta DuoNeb as needed Assessment & Plan (09/04/2024 2:46 PM EDT): - Currently on Breztri at home, not on home oxygen as of now - Patient is a former smoker, there is no need for smoking cessation counseling at this time No associated orders from this encounter found during lookback period of 72 hours. 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 12/28/2022 12/28/2022 06/29/2023 Encounters Date Type Department Care Team Description 09/22/2024 1:00 PM EDT Follow-Up [facility] [place] [address] [place] [address] Zack Villarreal CNP Heart failure with mildly reduced ejection fraction (CMS/HCC) (Primary Dx); Bilateral lower extremity edema; Coronary artery disease involving [place] coronary artery of [place] heart without angina pectoris; Shortness of breath; Mixed hyperlipidemia; Benign hypertensive heart disease with heart failure (CMS/HCC); Chronic heart failure with preserved ejection fraction (CMS/HCC) 09/03/2024 4:20 PM EDT - 09/05/2024 2:27 PM EDT Hospital Encounter [facility] [address] [place] [address] Alireza Mcallister MD Saad, Hani, MD NSTEMI (non-ST elevated myocardial infarction) (CMS/HCC) (Primary Dx); Atrial flutter, unspecified type (CMS/HCC); Pneumonia of right lower lobe due to infectious organism; Chronic obstructive pulmonary disease, unspecified COPD type (CMS/HCC) Discharge Disposition: Home or Self Care (01) 09/03/2024 Travel 08/01/2024 11:15 AM EDT Office Visit [facility] [address] [place] [address] Abby Azevedo MD Coronary artery disease involving [place] coronary artery of [place] heart without angina pectoris (Primary Dx); Non-sustained ventricular tachycardia ([facility]/HCC); Chronic obstructive pulmonary disease, unspecified COPD type ([facility]/HCC); Essential hypertension 07/25/2024 Telephone [facility] [address] [place] [address] Oralia Jaramillo MA 07/25/2024 Telephone [facility] [address] [place] [address] Oralia Jaramillo MA 07/25/2024 Telephone [facility] [address] [place] [address] Oralia Jaramillo MA 07/25/2024 Orders Only [facility] [address] [place] [address] Matt Milli CHING Benign hypertensive heart disease without congestive heart failure from Last 3 Months Family History Medical [...] drink = 0.6 oz pur e alcohol) [facility] Utilities Answer Date Recorded In the past 12 months has th e electric, gas, oil, or water company threatened to [...] any time in the past 12 m [facility], were you homeless or living in a mcfp (including now)? No 09/03/2024 Hunger Vital Sign [...] Pulse 77 09/22/2024 12:51 PM EDT Temperature 35.9 C (96.7 F) 09/05/2024 1:20 PM EDT Respiratory Rate 18 09/05/2024 1:20 PM EDT Oxygen Saturation 93% 09/22/2024 12:51 PM EDT Inhaled Oxygen Concentration - - Weight 88.9 kg (196 lb) 09/22/2024 12:51 PM EDT Height 160 cm (5' 3 ) 09/22/2024 12:51 PM EDT Body Mass Index 34.72 09/22/2024 12:51 PM EDT Plan of Treatment Upcoming Encounters Date Type Department Care Team (Late st Contact Info) Description 11/20/2024 11:00 AM EDT Office Visit [facility] [address] [place] [address] Zack Villarreal, CAB STARTER [address] [place] [address] Health Maintenance Due Date Last Done Comments CT Colonography 1955 Colonoscopy 1955 FIT-DNA 1955 FOBT 1955 Medicare Annual Wellness (AWV) 1955 Sigmoidoscopy 1955 Depression Screening 1965 Pneumococcal Vaccine: 50+ Ye ars (1 of 2 - PCV) 1972 Adult Tetanus 1975 Mammogram 1993 Zoster Vaccines (1 of 2) 2003 COVID-19 Vaccine (2 - 2023-2 5 season) 2023 09/01/2020 Influenza Vaccine (#1) 2024 Colorectal Cancer Screening 02/07/2025 FIT 02/07/2025 02/08/2024 Fall Risk Screening 09/05/2025 09/05/2024 HIB Vaccines Aged Out No longer eligi [...] this topic Medical Devices Implanted Type Area Food Counter Attendant Device Identifier Shelf Expiration Date Model / Serial / Lot Stent,Synergy Mr 2.50 X 12 - [id number] Implanted:Qty: 1 on 07/14/2022 by Abby Azevedo MD at [facility] Drug Eluting Stent Mobile [employer] [id number] 01/22/2023 [id number] / / [id number] Procedures Procedure Name Priority Date/Time Associated Diagnosis Comments HOME O2 EVAL (DESATURATION SCREEN) Routine 09/05/2024 9:13 AM EDT CBC Routine 09/05/2024 4:06 AM EDT BASIC METABOLIC PANEL Routine 09/05/2024 4:06 AM EDT ANTI-FACTOR XA Timed 09/04/2024 4:58 PM EDT MYCOPLASMA PNEUMONIAE PCR Routine 09/04/2024 12:33 PM EDT RAPID INFLUENZA A/B PCR Routine 09/04/2024 12:33 PM EDT SARS-COV-2 PCR Routine 09/04/2024 12:33 PM EDT LEGIONELLA ANTIGEN, URINE Routine 09/04/2024 12:11 PM EDT BLOOD CULTURE Routine 09/04/2024 9:37 AM EDT HIGH SENSITIVITY CRP Routine 09/04/2024 9:33 AM EDT ANTI-FACTOR XA Timed 09/04/2024 9:33 AM EDT BLOOD CULTURE Routine 09/04/2024 9:33 AM EDT LIMITED ECHO (TTE) W/ LIMITED DOPPLER, COLOR FLOW AND IMAGING AGENT Routine 09/04/2024 8:22 AM EDT SEDIMENTATION RATE Add-On 09/04/2024 4: 17 AM EDT BASIC METABOLIC PANEL Routine 09/04/2024 4:17 AM EDT MAGNESIUM Routine 09/04/2024 4:17 AM EDT CBC Routine 09/04/2024 4:17 AM EDT HIGH SENSITIVITY TROPONIN I Timed 09/04/2024 4:17 AM EDT ARTERIAL BLOOD GAS WITH IONIZED CALCIUM Timed 09/04/2024 4:14 AM EDT ANTI-FACTOR XA Timed 09/04/2024 1:17 AM EDT HIGH SENSITIVITY TROPONIN I Timed 09/03/2024 11:18 PM EDT LIPOPROTEIN A (LPA) Routine 09/03/2024 9 :20 PM EDT HIGH SENSITIVITY TROPONIN I Timed 09/03/2024 9:20 PM EDT SPUTUM CULTURE Routine 09/03/2024 8:16 PM EDT LAVENDER TOP Routine 09/03/2024 7:01 PM EDT ECG 12-LEAD STAT 09/03/2024 6:35 PM EDT RED TOP Routine 09/03/2024 5:53 PM EDT EXTRA TUBES Routine 09/03/2024 5:53 PM EDT APTT STAT 09/03/2024 5:33 PM EDT XR CHEST 1 VIEW STAT 09/03/2024 5:27 PM EDT HEMOGLOBIN A1C Add-On 09/03/2024 5:09 PM EDT LIPID PANEL Add-On 09/03/2024 5:09 PM EDT CBC WITH AUTO DIFFERENTIAL STAT 09/03/2024 5:09 PM EDT B-TYPE NATRIURETIC PEPTIDE Routine 09/03/2024 5:09 PM EDT HIGH SENSITIVITY TROPONIN I Routine 09/03/2024 5:09 PM EDT LACTIC ACID WITH 4 HOUR REFLEX Routine 09/03/2024 5:09 PM EDT MAGNESIUM STAT 09/03/2024 5:09 PM EDT COMPREHENSIVE METABOLIC PANEL STAT 09/03/2024 5:09 PM EDT CBC AND DIFFERENTIAL STAT 09/03/2024 5:09 PM EDT ECG 12-LEAD STAT 09/03/2024 5:00 PM EDT from Last 3 Months Results * (ABNORMAL) CBC (09/05/2024 4:06 AM EDT) Only the most recent of2 resultswithin the time period is included. Auto WBC 17.69(H) 4.00 - 10.60 10*3/uL 09/05/2024 5:05 AM EDT [facility] RBC 3.31(L) 3.80 - 5.00 10*6/uL 09/05/2024 5:05 AM EDT [facility] ([facility]) Hemoglobin 10.2(L) 12.0 - 15.0 g/dL 09/05/2024 5:05 AM EDT [facility] ([facility]) Hematocrit 31.9(L) 36.0 - 45.0 % 09/05/2024 5:05 AM EDT [facility] ([facility]) MCV 96.4 82.0 - 98.0 fL 09/05/2024 5:05 AM EDT [facility] ([facility]) MCH 30.8 27.0 - 33.0 pg 09/05/2024 5:05 AM EDT [facility] ([facility]) MCHC 32.0 32.0 - 35.0 g/dL 09/05/2024 5:05 AM EDT [facility] ([facility]) RDW 14.0 11.5 - 15.0 % 09/05/2024 5:05 AM EDT [facility] ([facility]) Platelets 247 150 - 400 10*3/uL 09/05/2024 5:05 AM EDT [facility] ([facility]) Blood Venous blood specimen / Unknown Venipuncture / Unknown 09/05/2024 4:06 AM EDT 09/05/2024 4:46 AM EDT us Viv Livingston MD LAB BLOOD ORDERABLES Final Resul t [facility]) [address] [place] [address] * (ABNORMAL) Basic metabolic panel (09/05/2024 4:06 AM EDT) Only the most recent of2 resultswithin the time period is included. Sodium 134(L) 136 - 145 mmol/L 09/05/2024 5:20 AM EDT [facility] ([facility]) Potassium 4.2 3.5 - 5.1 mmol/L 09/05/2024 5:20 AM EDT [facility] ([facility]) Chloride 105 98 - 107 mmol/L 09/05/2024 5:20 AM EDT [facility] ([facility]) CO2 24 21 - 31 mmol/L 09/05/2024 5:20 AM EDT [facility] ([facility]) BUN 26(H) 7 - 25 mg/dL 09/05/2024 5:20 AM EDT [facility] ([facility]) Creatinine 1.24(H) 0.60 - 1.20 mg/dL 09/05/2024 5:20 AM EDT [facility] ([facility]) Glucose 92 70 - 100 mg/dL 09/05/2024 5:20 AM EDT [facility] ([facility]) Calcium 8.1(L) 8.6 - 10.3 mg/dL 09/05/2024 5:20 AM EDT [facility] ([facility]) Anion Gap 9 7 - 20 mmol/L 09/05/2024 5:20 AM T [facility] ([facility]) eGFR 46.5(L) >60.0 mL/min/1. 73m*2 09/05/2024 5:20 AM EDT [facility] ([facility]) Comment:[facility] s estimated glomerular filtration rate (eGFR) will no longer include consideration of race in its calculation. The [employer] s eGFR Task Force developed new recommendations for [...] disproportionately affect any one group of individuals. BUN/Creatinine Ratio 21.0 08/27 5:20 AM EDT [facility] ([facility]) Blood Venous blood specimen / Unknown Venipuncture / Unknown 09/05/2024 4:06 AM EDT 09/05/2024 4:40 AM EDT us Viv Livingston MD LAB BLOOD ORDERABLES Final Resul t [facility]) [address] [place] [address] * (ABNORMAL) Anti-Xa (Heparin Level) (09/04/2024 4:58 PM EDT) Only the most recent of3 resultswithin the time period is included. Anti-Xa (Heparin) <0.10(LL) 0.3 - 0.7 IU/mL 09/04/2024 6:20 PM EDT [facility] ([facility]) Comment:Rivaroxaban and Apix aban will interfere with the anti Xa assay used to monitor UFH and LMWH. Blood Venous blood specimen / Unknown Venipuncture / Unknown 09/04/2024 4:58 PM EDT 09/04/2024 5:37 PM EDT Alireza Mcallister MD LAB BLOOD ORDERABLES Final Resul t Performing Organization Address City/[facility]/ZIP Co de Phone Number [facility] ([facility]) [address] [place] [address] [id number] * SARS-CoV-2 PCR (09/04/2024 12:33 PM EDT) Pathologist [facility] SARS-CoV-2 PCR Negative Negative 09/04/2024 1:04 PM EDT [facility] ([facility]) Swab Nasal structure / Unknown Non-blood Collection / Unknown 09/04/2024 12:33 PM EDT 09/04/2024 12:38 PM EDT Narrative [facility] ([facility]) - 09/04/2024 1:04 PM EDT Testing methodology utilizes isothermal nucleic acid amplification technology for the differential and qualitative detection of SARS-CoV-2 viral nucleic acids. Viv Livingston MD LAB MICROBIOLOGY - GENERAL ORDER ADRIEN Final Result [facility]) [address] [place] [id number] * Rapid influenza A/B PCR (09/04/2024 12:33 PM EDT) Pathologist [facility] Rapid Influenza A PCR Negative Negative 09/04/2024 1:04 PM EDT [facility] ([facility]) Rapid Influenza B PCR Negative Negative 09/04/2024 1:04 PM EDT [facility] ([facility]) Swab Nasal structure / Unknown Non-blood Collection / Unknown 09/04/2024 12:33 PM EDT 09/04/2024 12:38 PM EDT Narrative [facility] ([facility]) - 09/04/2024 1:04 PM EDT Testing methodology utilizes isothermal nucleic acid amplification technology for the differential and qualitative detection of Influenza A and Influenza B viral nucleic acids. Vvi Livingston MD LAB MICROBIOLOGY - GENERAL ORDER ADRIEN Final Result [facility] ([place]) [address] [place] [address] * Mycoplasma pneumoniae PCR (09/04/2024 12:33 PM EDT) Mycoplasma Pneumoniae Source Not Provided 09/07/2024 7:14 PM EDT [facility] ([facility]) Comment: Specimen source was not provided. Please refer to the [facility] Test Directory for validated specimen source information: [email or web address].com/testing. Interpret results with caution. Mycoplasma pneumo by PCR Not Detected 09/07/2024 7:14 PM EDT [facility] ([facility]) Comment: NOT DETECTED - A negative result does not rule out the presence of PCR inhibitors in the patient specimen or assay specific nucleic acid in concentrations below the level of detection by the assay. INTERPRETIVE INFORMATION: Mycoplasma pneumoniae by PCR This test was developed and its performance characteristics determined by [facility]. It has not been cleared or approved by the US Food and Drug Administration. This test was performed in a CLIA certified laboratory and is intended for clinical purposes. Performed By: [facility] [address] [place] [id number] Swimming Pool Maintenance: Amol Tran MD, PhD CLIA Number: [id number] Swab Nasopharyngeal structure / Unknown Non-blood Collection / Unknown 09/04/2024 12:33 PM EDT 09/04/2024 12:38 PM EDT us Viv Livingston MD LAB MICROBIOLOGY - GENERAL ORDER ADRIEN Final Result [facility] ([place]) [address] [place] [address] * Legionella antigen, urine (09/04/2024 12:11 PM EDT) Legionella Antigen, Urine NEGATIVE NEG 09/04/2024 8:22 PM EDT [facility] Comment: L. pneumophila serogroup 1 antigen not detected. A negative result does not exclude infection with Leginella pnemophila serogroup 1 nor does it rule out other microbial-caused respiratory infections of disease caused by other serogroups of Legionella pneumophila. Test Performed by [facility] [address] [place] [id number] - Released 09/04/2024 20:22 Urine Urine specimen obtained by clean catch procedure / Unknown Non-blood Collection / Unknown 09/04/2024 12:11 PM EDT 09/04/2024 12:18 PM EDT Viv Livingston MD LAB URINE ORDERABLES Final Resul t [facility] [address] [place] [address] * Blood culture, peripheral #2 (09/04/2024 9:37 AM EDT) Only the most recent of2 resultswithin the time period is included. Blood Culture No growth at 5 days CALIN 09/09/2024 10:01 AM EDT [facility] ([facility]) Blood Venous blood specimen / Unknown Venipuncture / Unknown 09/04/2024 9:37 AM EDT 09/04/2024 9:49 AM EDT us Viv Livingston MD LAB MICROBIOLOGY - GENERAL ORDER ADRIEN Final Result [facility] ([facility]) [address] [place], [place] [id number] * (ABNORMAL) High sensitivity CRP (09/04/2024 9:33 AM EDT) CRP, HIGH SENSITIVITY >300.0(H) <=3.0 mg/L 09/06/2024 1:25 PM EDT [facility]) Comment: INTERPRETIVE INFORMATION: CRP, High Sensitivity Patients [...] 3.0 mg/L ... high risk Performed By: [facility] [address] [place] [address] Swimming Pool Maintenance: Amol Tran MD, PhD CLIA Number: [id number] Blood Venous blood specimen / Unknown Venipuncture / Unknown 09/04/2024 9:33 AM EDT 09/04/2024 9:57 AM EDT us Viv Livingston MD LAB BLOOD ORDERABLES Final Resul t [facility]) [address] [place] [address] * LIMITED ECHO (TTE) W/ LIMITED DOPPLER, COLOR FLOW AND IMAGING AGENT (09/04/2024 8:22 AM EDT) Anatomical Region Laterality Modality Other 09/04/2024 8:05 AM EDT Narrative 09/04/2024 12:53 PM EDT 1 [facility] [address] [place] [address] [phone] (fax) Echocardiogram-[facility] Name: CHIARA EDUARDO Study Date: 09/04/2024 08:05 AM B/P: 103 mmHg/56 mmHg HR: Date of : 1955 Location: [facility] Height: 63 in. Age: 69 year(s) Patient Room: 3123 Weight: 200 lb. Gender: Female Patient Status: InPt BSA: 1.93 m2 Indication: Chest Pain, CAD, COPD Examination: Limited Echo/Limited Doppler, Color flow imaging, Lumason Contrast Image Quality: Technically Difficult study Patient Consent: Procedure explained to patient Exam Details Contrast: I.V. dose of Lumason Conclusions Left Ventricle: The left ventricle is [...] opacification and better delineation of endocardial borders. Measurements Left Ventricle Label Value Normal Value LVOTd 2.2 cm (18cm - 20cm) LVOT VTI 20.4 cm (18cm - 22cm) LVOT PGmax 3 mmHg LVDd, 2D 5.21 cm (3.9cm - 5.3cm) LVDs, 2D 3.89 cm (2.1cm - 4cm) IVSd, 2D 0.78 cm (0.6cm - 1.1cm) LVPWd, 2D 1.01 cm (0.6cm - 0.9cm) LVEF, BP 44 % (55% - 65%) LV Mass, 2D ASE 168.31 g LV Mass Index, 2D ASE 87.2 g/m?? (44g/m?? - 88.4g/m??) RWT, MM 0.39 (0 - 0.42) LVSVI, 2D 33.2 ml/m2 LVOT PGmean 2 mmHg LVSV_LVOT 78 ml Tricuspid Valve Label Value Normal Value RA Pressure 3 mmHg RVSP 19 mmHg TR Vmax 2.01 m/s Aorta Label Value Normal Value AoRoot, 2D 3.3 cm (1.4cm - 3.8cm) Great Vessels Label Value Normal Value IVC 1.6 cm (1.2cm - 2.3cm) Valvular Assessment LVOT 0.7 - 1.1 m/sec Aortic Valve 1.0 - 1.7 m/sec Mitral Valve 0.6 - 1.3 m/sec Tricuspid Valve 0.3 - 0.7 m/sec Pulmonic Valve 0.6 - 0.9 m/sec Regurgitation Trivial Trivial Max Velocity 0.90 m/sec Findings Left Ventricle: The left ventricle is [...] The left atrium appears normal in size. Right Atrium: The right atrium appears normal in size. Mitral Valve: The mitral valve is normal in mobility and thickness. Trivial mitral regurgitation. Aortic Valve: Aortic valve appears normal. Tricuspid Valve: Tricuspid valve appears normal. Trivial tricuspid regurgitation. Pulmonic Valve: Pulmonary valve appears normal. Aorta: The aortic root is normal in size. Great Vessels: IVC: Normal size and course of the IVC. Pericardium: No pericardial effusion. Procedure Staff Reading Group: [facility] Building Construction Engineer: Michael Gonzalez RDCS Ordering Physician: ALIREZA MCALLISTER Procedure Note Rosendo Mustafa MD - 09/04/2024 1 1 [facility] Heart Station [address] [facility] [place] [address] [phone] (fax) Echocardiogram-[facility] Name: CHIARA EDUARDO Study Date: 09/04/2024 08:05 AM B/P: 103 mmHg/56 mmHg HR: Date of : 1955 Location: [facility] Height: 63 in. Age: 69 year(s) Patient Room: 3123 Weight: 200 lb. Gender: Female Patient Status: InPt BSA: 1.93 m2 Indication: Chest Pain, CAD, COPD Examination: Limited Echo/Limited Doppler, Color flow imaging, Lumason Contrast Image Quality: Technically Difficult study Patient Consent: Procedure explained to patient Exam Details Contrast: I.V. dose of Lumason Conclusions Left Ventricle: The left ventricle is [...] opacification and better delineation of endocardial borders. Measurements Left Ventricle Label Value Normal Value LVOTd 2.2 cm (18cm - 20cm) LVOT VTI 20.4 cm (18cm - 22cm) LVOT PGmax 3 mmHg LVDd, 2D 5.21 cm (3.9cm - 5.3cm) LVDs, 2D 3.89 cm (2.1cm - 4cm) IVSd, 2D 0.78 cm (0.6cm - 1.1cm) LVPWd, 2D 1.01 cm (0.6cm - 0.9cm) LVEF, BP 44 % (55% - 65%) LV Mass, 2D ASE 168.31 g LV Mass Index, 2D ASE 87.2 g/m?? (44g/m?? - 88.4g/m??) RWT, MM 0.39 (0 - 0.42) LVSVI, 2D 33.2 ml/m2 LVOT PGmean 2 mmHg LVSV_LVOT 78 ml Tricuspid Valve Label Value Normal Value RA Pressure 3 mmHg RVSP 19 mmHg TR Vmax 2.01 m/s Aorta Label Value Normal Value AoRoot, 2D 3.3 cm (1.4cm - 3.8cm) Great Vessels Label Value Normal Value IVC 1.6 cm (1.2cm - 2.3cm) Valvular Assessment LVOT 0.7 - 1.1 m/sec Aortic Valve 1.0 - 1.7 m/sec Mitral Valve 0.6 - 1.3 m/sec Tricuspid Valve 0.3 - 0.7 m/sec Pulmonic Valve 0.6 - 0.9 m/sec Regurgitation Trivial Trivial Max Velocity 0.90 m/sec Findings Left Ventricle: The left ventricle is [...] The left atrium appears normal in size. Right Atrium: The right atrium appears normal in size. Mitral Valve: The mitral valve is normal in mobility and thickness. Trivial mitral regurgitation. Aortic Valve: Aortic valve appears normal. Tricuspid Valve: Tricuspid valve appears normal. Trivial tricuspid regurgitation. Pulmonic Valve: Pulmonary valve appears normal. Aorta: The aortic root is normal in size. Great Vessels: IVC: Normal size and course of the IVC. Pericardium: No pericardial effusion. Procedure Staff Reading Group: [facility] Building Construction Engineer: Michael Gonzalez RDCS Ordering Physician: ALIREZA MCALLISTER Alireza Mcallister MD CV ECHO PROCEDURES Final Result * (ABNORMAL) High Sensitivity Troponin I (09/04/2024 4:17 AM EDT) Only the most recent of4 resultswithin the time period is included. [facility] High Sensitivity Troponin I 1,053(HH) <15 ng/L 09/04/2024 5:22 AM EDT [facility] ([place]) Blood Venous blood specimen / Unknown Venipuncture / Unknown 09/04/2024 4:17 AM EDT 09/04/2024 4:42 AM EDT Alireza Mcallister MD LAB BLOOD ORDERABLES Final Resul t [facility] ([place]) [address] [place] [address] * Sedimentation rate (09/04/2024 4:17 AM EDT) [facility] Sed Rate 21 <30 mm/hr 09/04/2024 9:1 2 AM EDT [facility] ([place]) Blood Venous blood specimen / Unknown Venipuncture / Unknown 09/04/2024 4:17 AM EDT 09/04/2024 4:42 AM EDT us Viv Livingston MD LAB BLOOD ORDERABLES Final Resul t Performing Organization Address City/[facility]/ZIP Co de Phone Number [facility]) [address] [place] [address] * (ABNORMAL) Magnesium (09/04/2024 4:17 AM EDT) Only the most recent of2 resultswithin the time period is included. Magnesium 1.8(L) 1.9 - 2.7 mg/dL 09/04/2024 5:17 AM EDT [facility]) Blood Venous blood specimen / Unknown Venipuncture / Unknown 09/04/2024 4:17 AM EDT 09/04/2024 4:42 AM EDT us Alireza Mcallister MD LAB BLOOD ORDERABLES Final Resul t Performing Organization Address City/[facility] Co de Phone Number [facility] ([facility]) [address] [place] [phone] * Arterial blood gas with ionized calcium (09/04/2024 4:14 AM EDT) pH, Arterial 7.36 7.35 - 7.45 pH 09/04/2024 4:19 AM EDT [facility] RESPIRATORY THERAPY pCO2, Arterial 42 35 - 48 mmHg 09/04/2024 4:19 AM EDT [facility] RESPIRATORY THERAPY pO2, Arterial 92 83 - 100 mmHg 09/04/2024 4:19 AM EDT [facility] RESPIRATORY THERAPY HCO3, Arterial 23.7 21.0 - 28.0 mEq/L 09/04/2024 4:19 AM EDT [facility] RESPIRATORY THERAPY Calcium, Ion 1.20 1.15 - 1.33 mmol/L 09/04/2024 4:19 AM EDT [facility] RESPIRATORY THERAPY O2 Sat, Arterial 97.9 94.0 - 98.0 % 09/04/2024 4:19 AM EDT [facility] RESPIRATORY THERAPY Base Excess, Arterial -1.8 -2.0 - 3.0 mmol/L 09/04/2024 4:19 AM EDT [facility] RESPIRATORY THERAPY Source Of Oxygen High flow nasal cannula 09/04/2024 4:19 AM EDT [facility] RESPIRATORY THERAPY FiO2 40 % 09/04/2024 4:19 AM EDT [facility] RESPIRATORY THERAPY Blood Arterial blood specimen / Unknown Arterial Puncture / Unknown 09/04/2024 4:14 AM EDT 09/04/2024 4:14 AM EDT us Alireza Mcallister MD LAB BLOOD ORDERABLES Final Resul t Performing Organization Address City/[facility]/ZIP Co de Phone Number [facility] RESPIRATORY THERAPY [address] [place] [address], [place] * (ABNORMAL) Lipoprotein A (LPA) (09/03/2024 9:20 PM EDT) Lipoprotein (a) 33(H) <=29 mg/dL 1:25 PM EDT [facility] ([facility]) Comment: Performed By: [employer] [address] [place] [address] Swimming Pool Maintenance: Amol Tran MD, PhD CLIA Number: [id number] Blood Venous blood specimen / Unknown Venipuncture / Unknown 09/03/2024 9:20 PM EDT 09/03/2024 10:01 PM EDT us Alireza Mcallister MD LAB BLOOD ORDERABLES Final Resul t Performing Organization Address [facility] Co de Phone Number [facility] ([facility]) [address] [place] [address] * Sputum culture (09/03/2024 8:16 PM EDT) Gram Stain Result 10-25 Squamous Epithelial Cells Per Low Power Field 09/07/2024 8:22 AM EDT [facility] ([facility]) Gram Stain Result >25 Polys Per Low Power Field 09/07/2024 8:22 AM EDT [facility] ([facility]) Gram Stain Result Few Gram positive cocci in pairs 09/07/2024 8:22 AM EDT [facility] ([employer]) Sputum (Sputum, Expectorated) 09/03/2024 8:16 PM EDT 09/03/2024 8:26 PM EDT Narrative [facility] ([facility]) - 09/07/2024 8:22 AM EDT Light Growth Colonies Consistent with Upper Respiratory Terrie us Alireza Mcallister MD LAB MICROBIOLOGY - GENERAL ORDER ADRIEN Final Result Performing Organization Address City/[facility]/ZIP Co de Phone Number [facility]) [address] [place], [place] [phone] * Lavender Top (09/03/2024 7:01 PM EDT) Pathologist [facility] Extra Tube Hold for add-ons. 09/03/2024 7:01 PM EDT [facility] ([place]) Comment:Auto resulted. Blood Venous blood specimen / Unknown Venipuncture / Unknown 09/03/2024 5:54 PM EDT us Alireza Mcallister MD LAB BLOOD ORDERABLES Final Resul t Performing Organization Address City/[facility] Co de Phone Number [facility]) [address] [place] [address] * ECG 12 lead (09/03/2024 6:35 PM EDT) Only the most recent of2 resultswithin the time period is included. Ventricular Rate 93 BPM GE MUSE Atrial Rate 93 BPM GE MUSE MD Interval 138 ms GE MUSE QRS DURATION 76 ms GE MUSE QT Interval 354 ms GE MUSE QTC CALCULATION(BAZE TT) 440 ms GE MUSE P [place] 69 degrees GE MUSE R-[place] 35 degrees GE MUSE T Wave [place] 45 degrees GE MUSE 09/03/2024 6:29 PM EDT 09/03/2024 6:41 PM EDT Impressions GE MUSE - 09/03/2024 6:41 PM EDT Sinus rhythm with frequent Premature ventricular complexes Low voltage QRS Borderline ECG When compared with ECG of 03-SEP-2024 16:56, No significant change was found Confirmed by Jamie Estevez ([id number]) on 09/03/2024 6:41:10 PM Narrative Procedure Note Jamie Estevez MD - 09/03/2024 IMPRESSION: Sinus rhythm with frequent Premature ventricular complexes Low voltage QRS Borderline ECG When compared with ECG of 03-SEP-2024 16:56, No significant change was found Confirmed by Jamie Estevez ([id number]) on 09/03/2024 6:41:10 PM us Alireza Mcallister MD ECG ORDERABLES Final Result Performing Organization Address City/[facility]/ZIP Co de Phone Number GE MUSE * Red Top (09/03/2024 5:53 PM EDT) Extra Tube Hold for add-ons. 09/03/2024 7:01 PM EDT [facility] ([facility]) Comment:Auto resulted. Blood Venous blood specimen / Unknown Venipuncture / Unknown 09/03/2024 5:53 PM EDT 09/03/2024 5:53 PM EDT us Alireza Mcallister MD LAB BLOOD ORDERABLES Final Resul t Performing Organization Address [facility] de Phone Number [facility] ([facility]) [address] [place], [place] [id number] * (ABNORMAL) aPTT - baseline (09/03/2024 5:33 PM EDT) aPTT 49.3(H) 25.0 - 35.0 Seconds 09/03/2024 6:24 PM EDT [facility] ([facility]) Comment:Clinical significanc e of the APTT is questionable in the presence of heparin. Blood Venous blood specimen / Unknown Venipuncture / Unknown 09/03/2024 5:33 PM EDT 09/03/2024 5:52 PM EDT Result Matteo Mcallister MD LAB BLOOD ORDERABLES Final Resul t Performing Organization Address City/[facility] Co de Phone Number [facility] ([facility]) [address] [place] [address] * XR chest 1 view (09/03/2024 5:27 PM EDT) Anatomical Region Laterality Modality Chest Computed Radiogr aphy 09/03/2024 5:27 PM EDT Impressions 09/03/2024 5:27 PM EDT Right lower lobe infiltrate, likely pneumonia. Electronically signed: True Cheek. Narrative 09/03/2024 5:27 PM EDT XR CHEST 1 VIEW 09/03/2024 4:49 PM CLINICAL INDICATIONS: Pneumonia COMPARISON: 10/27/2022 FINDINGS: There is right lower lobe infiltration, new in comparison to prior exam, likely pneumonia. Left lung clear. No pneumothorax. Cardiac contour is stable. Procedure Note True Cheek MD - 09/03/2024 XR CHEST 1 VIEW 09/03/2024 4:49 PM CLINICAL INDICATIONS: Pneumonia COMPARISON: 10/27/2022 FINDINGS: There is right lower lobe infiltration, new in comparison toprior exam, likely pneumonia. Left lung clear. No pneumothorax. Cardiac contouris stable. IMPRESSION: Right lower lobe infiltrate, likely pneumonia. Electronically signed: True Cheek. us Alireza Mcallister MD IMG XR PROCEDURES Final Result * Lactic acid with 4 hour reflex (09/03/2024 5:09 PM EDT) Lactate 1.6 0.5 - 2.2 mmol/L 09/03/2024 5:59 PM EDT [facility] ([place]) Blood Venous blood specimen / Unknown Venipuncture / Unknown 09/03/2024 5:09 PM EDT 09/03/2024 5:32 PM EDT us Alireza Mcallister MD LAB BLOOD ORDERABLES Final Resul t [facility] ([place]) [address] [place] [address] * (ABNORMAL) CBC auto differential (09/03/2024 5:09 PM EDT) Auto WBC 19.92(H) 4.00 - 10.60 10*3/uL 09/03/2024 5:49 PM EDT [facility] ([facility]) RBC 3.95 3.80 - 5.00 10*6/uL 09/03/2024 5:49 PM T [facility] ([facility]) Hemoglobin 12.3 12.0 - 15.0 g/dL 09/03/2024 5:49 PM [facility] ([facility]) Hematocrit 38.3 36.0 - 45.0 % 09/03/2024 5:49 PM [facility] ([facility]) MCV 97.0 82.0 - 98.0 fL 09/03/2024 5:49 PM [facility] ([facility]) MCH 31.1 27.0 - 33.0 pg 09/03/2024 5:49 PM [facility] ([facility]) MCHC 32.1 32.0 - 35.0 g/dL 09/03/2024 5:49 PM [facility] ([facility]) RDW 13.8 11.5 - 15.0 % 09/03/2024 5:49 PM [facility] ([facility]) Neutrophils % 93.3(H) 40.0 - 72.0 % 09/03/2024 5:49 PM [facility] ([facility]) Lymphocytes % 1.4(L) 20.0 - 45.0 % 09/03/2024 5:49 PM [facility] ([facility]) Monocytes % 3.4(L) 5.0 - 12.0 % 09/03/2024 5:49 PM [facility] ([facility]) Eosinophils % 1.2 0.0 - 6.0 % 09/03/2024 5:49 PM T [facility] ([facility]) Basophils % 0.2 0.0 - 1.0 % 09/03/2024 5:49 PM [facility] ([facility]) Neutrophils Absolute 18.60(H) 1.60 - 7.60 10*3/uL 09/03/2024 5:49 PM [facility] ([facility]) Lymphocytes Absolute 0.28(L) 1.20 - 4.00 10*3/uL 09/03/2024 5:49 PM EDT [facility] ([facility]) Monocytes Absolute 0.67 0.10 - 1.00 10*3/uL 09/03/2024 5:49 PM EDT [facility] ([facility]) Eosinophils Absolute 0.24 0.00 - 0.50 10*3/uL 09/03/2024 5:49 PM EDT [facility] ([facility]) Basophils Absolute 0.03 0.00 - 0.20 10*3/uL 09/03/2024 5:49 PM EDT [facility] ([facility]) Platelets 272 150 - 400 10*3/uL 09/03/2024 5:49 PM EDT [facility] ([facility]) nRBC % 0.0 0 % 09/03/2024 5:49 PM EDT [facility] ([facility]) Immature Granulocytes % 0.5 0.0 - 1.0 % 09/03/2024 5:49 PM EDT [facility] ([facility]) Immature Granulocytes Absolute 0.10 0.00 - 0.20 10*3/uL 09/03/2024 5:49 PM EDT [facility] ([facility]) Blood Venous blood specimen / Unknown Venipuncture / Unknown 09/03/2024 5:09 PM EDT 09/03/2024 5:40 PM EDT Alireza Mcallister MD LAB BLOOD ORDERABLES Final Resul t [facility] ([facility]) [address] [place] [address] * (ABNORMAL) B-type natriuretic peptide (09/03/2024 5:09 PM EDT) BNP 708(H) 0 - 100 pg/mL 09/03/2024 6:09 PM EDT [facility] ([facility]) Blood Venous blood specimen / Unknown Venipuncture / Unknown 09/03/2024 5:09 PM EDT 09/03/2024 5:40 PM EDT us Alireza Mcallister MD LAB BLOOD ORDERABLES Final Resul t Performing Organization Address City/[facility]/ZIP Co de Phone Number [facility]) [address] [place] [address] * (ABNORMAL) Hemoglobin A1c (09/03/2024 5:09 PM EDT) Hemoglobin A1C 6.6(H) 4.0 - 6.0 % 09/04/2024 9:06 AM EDT [facility] ([facility]) Estimated Average Glucose 143 mg/dL 09/04/2024 9:06 AM EDT [facility] ([facility]) Blood Venous blood specimen / Unknown Venipuncture / Unknown 09/03/2024 5:09 PM EDT 09/03/2024 5:40 PM EDT us Alireza Mcallister MD LAB BLOOD ORDERABLES Final Resul t Performing Organization Address [facility] Co de Phone Number [facility] ([facility]) [address] [place] [address] * Lipid panel (09/03/2024 5:09 PM EDT) Pathologist [facility] Triglycerides 44 <150 mg/dL 09/03/2024 6:44 PM EDT [facility] ([facility]) Comment: TRIGLYCERIDE REFERENCE RANGE: 20 YEARS AND OLDER CARDIOVASCULAR RISK LESS THAN 150 mg/dL LOW RISK 150 TO 199 mg/dL BORDERLINE RISK 200 mg/dL AND GREATER HIGH RISK Cholesterol 125 120 - 200 mg/dL 09/03/2024 6:44 PM EDT [facility] ([facility]) LDL Calculated 46 0 - 160 mg/dL 09/03/2024 6:44 PM EDT [facility] ([facility]) HDL 70 23 - 92 mg/dL 09/03/2024 6:44 PM EDT [facility] ([facility]) Non HDL Cholesterol 55 09/03/2024 6:44 PM EDT [facility] ([facility]) Total VLDL-C 9 0 - 40 mg/dL 09/03/2024 6:44 PM EDT [facility] ([facility]) Cholesterol/HDL Ratio 1.8 mg/dL 09/03/2024 6:44 PM EDT [facility] ([facility]) Blood Venous blood specimen / Unknown Venipuncture / Unknown 09/03/2024 5:09 PM EDT 09/03/2024 5:40 PM EDT us Alireza Mcallister MD LAB BLOOD ORDERABLES Final Resul t [facility] ([facility]) [address] [place] [address] * (ABNORMAL) Comprehensive metabolic panel (09/03/2024 5:09 PM EDT) Sodium 134(L) 136 - 145 mmol/L 09/03/2024 6:09 PM EDT [facility] ([facility]) Potassium 4.8 3.5 - 5.1 mmol/L 09/03/2024 6:09 PM EDT [facility] ([facility]) Chloride 103 98 - 107 mmol/L 09/03/2024 6:09 PM EDT [facility] ([facility]) CO2 25 21 - 31 mmol/L 09/03/2024 6:09 PM EDT [facility] ([facility]) Anion Gap 11 7 - 20 mmol/L 09/03/2024 6:09 PM EDT [facility] ([facility]) BUN 29(H) 7 - 25 mg/dL 09/03/2024 6:09 PM EDT [facility] ([facility]) Creatinine 1.48(H) 0.60 - 1.20 mg/dL 09/03/2024 6:09 PM EDT [facility] ([facility]) BUN/Creatinine Ratio 19.6 10/2024 6:09 PM EDT [facility] ([facility]) Glucose 130(H) 70 - 100 mg/dL 09/03/2024 6:09 PM EDT [facility] ([facility]) Calcium 8.3(L) 8.6 - 10.3 mg/dL 09/03/2024 6:09 PM EDT [facility] ([facility]) AST 25 13 - 39 U/L 09/03/2024 6:09 PM EDT [facility] ([facility]) ALT (SGPT) 19 7 - 52 U/L 09/03/2024 6:09 PM EDT [facility] ([facility]) Alkaline Phosphatase 54 34 - 104 U/L 09/03/2024 6:09 PM EDT [facility] ([facility]) Total Protein 6.0 6.0 - 8.3 g/dL 09/03/2024 6:09 PM EDT [facility] ([facility]) Albumin 3.6 3.5 - 5.7 g/dL 09/03/2024 6:09 PM EDT [facility] ([facility]) Total Bilirubin 0.4 0.3 - 1.0 mg/dL 09/03/2024 6:09 PM EDT [facility] ([facility]) eGFR 37.6(L) >60.0 mL/min/1. 73m*2 09/03/2024 6:09 PM EDT [facility] ([facility]) Comment:[facility] s estimated glomerular filtration rate (eGFR) will no longer include consideration of race in its calculation. The [employer] s eGFR Task Force developed new recommendations for [...] disproportionately affect any one group of individuals. Blood Venous blood specimen / Unknown Venipuncture / Unknown 09/03/2024 5:09 PM EDT 09/03/2024 5:40 PM EDT us Alireza Mcallister MD LAB BLOOD ORDERABLES Final Resul t [facility] ([place]) [address] [place] [address] from Last 3 Months Insurance [facility] MEDICARE ADVANTAGE Advance Directives * Full Code (Latest Code Status on File) Date Activated Date Inactivated Comments 09/03/2024 4:37 PM 09/05/2024 4:27 PM * Full Code Date Activated Date Inactivated Comments 07/03/2024 11:10 AM 07/03/2024 4:05 PM * Full Code Date Activated Date Inactivated Comments 10/27/2022 1:05 AM 10/31/2022 5:46 PM * Full Code Date Activated Date Inactivated Comments 07/14/2022 12:10 PM 07/14/2022 6:57 PM Care Teams Tax Economist Relationship Specialty Start Date End Date Nolvia Jimenez MD [address] [place] [address] PCP - General Nurse Practitioner 06/15/24 Brien Coughlin MD [address] [place] [address] Pulmonary Disease 09/05/24
[2024-10-03 12:13] LABS: Anion Gap 11.8; Blood Urea Nitrogen 31.0 mg/dL (7.0-18.0); Calcium 9.1 mg/dL (8.5-10.1); Carbon Dioxide 29.1 mmol/L (21.0-32.0); Chloride 96 mmol/L (98-107); Estimated GFR (African America 30 (>=60 mL/min/1.73m^2); Estimated GFR (Non-African Ame 24 (>=60 mL/min/1.73m^2); Glucose 115 mg/dL (74-106); Potassium 4.9 mmol/L (3.5-5.1); Sodium 132 mmol/L (136-145)
== END 2024-10-03 11:43 | disposition home or self-care (01) ==
LOC: LAB 11:44
PROVIDERS: PCP Nurse Practitioner
DX: I11.0 Hypertensive heart disease with heart failure (principal); I50.22 Chronic systolic (congestive) heart failure
CPT/HCPCS: 36415; 80048

== ENCOUNTER 2024-10-05 07:13 | Outpatient (RCR) | payer MEDICARE, SELFPAY ==
--- NOTE | 2024-10-02 11:17 | CR1_ITS ---
[facility] Test Date: 2024-10-02 Pat Name: CHIARA EDUARDO Department: Room: - Gender: Female Rod Mill Tender: : 1955 Requested By: Brien Coughlin Order Number: [id number] Dane MD: Brien Coughlin Interpretive Statements Okay to proceed with outlined treatment plan. Electronically Signed On 10-04-2024 10:08:06 EDT by Brien Coughlin
--- NOTE | 2024-10-03 13:20 | CR1_ITS ---
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 Electronically Signed On 10-04-2024 10:08:18 EDT by Brien Coughlin
--- NOTE | 2024-10-23 14:17 | CR1_ITS ---
[facility] Test Date: 2024-10-23 Pat Name: CHIARA EDUARDO Department: Room: - Gender: Female Infectious Disease Physician: : 1955 Requested By: REINA WARD Order Number: [id number] Dane MD: HERIBERTO BARTON M.D. Interpretive Statements Patient may continue cardiac rehab as outlined in the treatment plan. Electronically Signed On 11-03-2024 10:21:15 EDT by HERIBERTO BARTON M.D.
--- NOTE | 2024-11-24 08:24 | CR1_ITS ---
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
--- NOTE | 2024-11-29 07:46 | PC.NURSE ---
letter sent 11/21 re: no attendance. patient to respond by 12-15 or be discharged per attendance note
== END 2024-12-11 10:31 | disposition home or self-care (01) ==
LOC: CR 07:13
PROVIDERS: PCP Nurse Practitioner; Visit Provider Internal Medicine Interventional Cardiology
DX: I21.9 Acute myocardial infarction, unspecified (principal); Z98.61 Coronary angioplasty status; I50.9 Heart failure, unspecified
CPT/HCPCS: 93798

== ENCOUNTER 2024-10-10 10:08 | Outpatient (OUT) | payer MEDICARE, SELFPAY ==
--- OUTSIDE RECORDS SUMMARY | 2024-10-10 10:37 | XMS_ITS | CCD ---
Author Organization [facility] Care Team Providers Care Manager Medical Writing Name Role Phone Jackelyn Guillory Unavailable JACKELYN [...] Care Unavailable SAMSA ., LUIS Attending Unavailable [place], DR TIMOTHY Chandler Consulting Unavailable HOUSE, DR CASTILLO Primary Care Unavailable SAMSA ., LUIS Admitting Unavailable SAMSA ., LUIS Consulting Unavailable HOUSE, DR CASTILLO Admitting Unavailable HOUSE, DR CASTILLO Primary Care Unavailable [place], DR CASTILLO Consulting Unavailable HOUSE, DR CASTILLO Attending Unavailable BAKHOUS, MARIOIZ Consulting Unavailable BAKHUMBERTOS, JACKELYN Attending Unavailable BAKHUMBERTOS, AZIZ Admitting Unavailable HOUSE, DR CASTILLO Primary Care [facility] Consulting Unavailable [facility], DR HUANG Attending Unavailable HOUSE, DR CASTILLO Primary Care Un[facility] Admitting Unavailable SAMSA ., LUIS Consulting Unavailable SAMSA ., LUIS Attending Unavailable SAMSA ., LUIS Admitting Unavailable HOUSE, DR CASTILLO Primary Care Unavailable HOUSE, DR CASTILLO Consulting Unavailable SAMSA ., LUIS Consulting Unavailable MD Jackelyn Guillory Attending Provider [phone] MD Jackelyn Guillory Referring Provider [phone] KARO Cheng Primary Care Provid Ric COTE, Altamirano Unavailable Trace Kelly MD Primary Care Provider Skylar JEWEL DIAMETER GAUGER, Shanda Unavailable Trace Kelly MD Primary Care Provider [phone] Cheng JEWEL DIAMETER GAUGER, Shanda Unavailable Cheng JEWEL DIAMETER GAUGER, Shanda Unavailable [phone] Nolvia Jimenez Attending Provider [phone] Nolvia Jimenez Attending Unavailable Nolvia Jimenez Admitting Unavailable ChengShanda N Primary Care Unavaila ble Bakhous, Aziz Admitting Unavailable Bakhous, Aziz Attending Unavailable Bakhous, Aziz Referring Unavailable CHENGSHANDA Attending Unavailabl e CHENG, SHANDA Attending Unavailabl e PAULINAHNOLVIA GARCIA Attending Unavailable PAULINAHNOLVIA GARCIA Attending Unavailable CHENG, SHANDA Attending Unavailabl e ZACK LUU Attending Unavailable XANDER MUSTAFA Attending Unavailable [facility] Attending Unavailable [facility] Referring Unavailable XANDER MUSTAFA Attending Unavailable [place] Attending Unavailable [place] Attending Unavailable HORANI, KIRSTEN Referring Unavailable HORANI, KIRSTEN Referring Unavailable GRISELDA HARVEY Referring Unavailable HORANI, KIRSTEN Admitting Unavailable RHEA LIVINGSTON Attending Unavailable [place] Admitting Unavailable [place] Attending Unavailable HORANI, KIRSTEN Referring Unavailable HORANI, KIRSTEN Referring Unavailable Allergies Allergy Classification Reported Allergen(s) Allergy Type Date of Onset Reaction(s) Facility (20 sources) clopidogrel; Translations: [CLOPIDOGREL] Drug Allergy [facility] (7 sources) hydroCHLOROthiazide; Translations: [HYDROCHLOROTHIAZIDE] Drug Allergy [facility] (3 sources) Penicillin; Translations: [penicillin] Drug Allergy [facility] (20 sources) Vancomycin; Translations: [VANCOMYCIN] Drug Allergy anaphylaxis [facility] (2 sources) Substance with sulfonamide structure and antibacterial mechanism of action (substance) Drug allergy Unknown [facility] [employer] Other (1 source) clopidogrel Drug Allergy [facility] (1 source) hydroCHLOROthiazide Drug Allergy [facility] (1 source) Vancomycin Drug Allergy [facility] (20 sources) Penicillins; Translations: [Penicillins] Allergy to substance hives [facility] (6 sources) Sulfonamides (Antibiotic); Translations: [Sulfa (Sulfonamide Antibiotics)] Allergy to substance Unknown Reaction [facility] (20 sources) hydroCHLOROthiazide Drug Allergy [facility] (20 sources) Sodium Chloride; Translations: [SODIUM CHLORIDE] Drug Allergy [facility] (20 sources) Sulfacetamide Drug Allergy [facility] (1 source) clopidogrel Drug Allergy [facility] (1 source) hydroCHLOROthiazide Drug Allergy [facility] (1 source) Vancomycin Drug Allergy [facility] Medications Current Medications Medication Drug Class(es) Dates Sig (Normalized) Sig (Original) [id number] 200 actuat albuterol 0.09 mg/actuat metered dose [...] by mouth Daily 90 tablet 1 04/03/2024 Active take 1 tablet by rebecca th every twenty-four hours Atorvastatin Calcium 80 MG 1 tablet Oral ly Once a day Active azithromycin 500 mg oral tablet (2 sources) Macrolide Antimicrobial Start: 09-05-2024 End: 09-06-2024 take 1 tablet by mouth once daily azithromycin (Zithromax) 500 MG tablet Take 500 mg by mouth Daily 09/05/2024 09/06/2024 Active 120 actuat budesonide 0.16 mg/actuat / formoterol fumarate 0.0048 mg/actuat / glycopyrrolate 0.009 mg/actuat metered dose inhaler (5 sources) Corticosteroid, beta2-Adrenergic Agonist Budeson-Glycopyrrol- Formoterol (Breztri Aerosphere) 160-9-4.8 MCG/ACT aerosol Inhale 160 mcg in the morning. Active cefpodoxime 200 mg oral tablet (2 sources) Cephalosporin Antibacterial Start: 09-05-2024 End: 09-10-2024 take 1 tablet by mouth in the morning cefpodoxime (Vantin) 200 MG tablet Take 200 mg by mouth in the morning and 200 mg in the evening. 09/05/2024 09/10/2024 Active cholecalciferol 0.05 mg oral capsule (20 sources) Vitamin D Start: 07-25-2024 take 1 capsule by mouth once daily Cholecalciferol (Vitamin D3) 50 mcg (2,000 unit) capsule Active 50 MCG PO Daily July 25, 2024 12:00am Start: 01-18-2024 take 1 tablet by rebecca once daily cholecalciferol (Vitamin D-3) 25 MCG (1000 UT) tablet Indications: Stage 3a chronic kidney disease (CMS-HCC) Take 1 tablet (25 mcg) by mouth Daily 60 tablet 1 01/18/2024 Active End: 01-17-2024 take 1 tablet by mouth in the morning cholecalciferol (Vitamin D-3) 25 MCG (1000 UT) tablet Take 1,000 Units by mouth in the morning. 01/17/2024 Discontinued (Reorder) take 1 capsule by mo [facility] once daily Cholecalciferol 25 MCG (1000 UT) [...] Discontinued (Reorder) dapagliflozin 10 mg oral tablet (7 sources) Sodium-Glucose Cotransporter 2 Inhibitor Start: 07-03-2024 End: 10-31-2024 take 10 mg by mouth in the morning dapagliflozin (Farxiga) 10 MG Take 10 mg by mouth in the morning. 07/03/2024 10/31/2024 Active 2 ml dupilumab 150 mg/ml auto-injector (17 sources) Interleukin-4 Receptor alpha Antagonist Dupilumab (Dupixent) 300 MG/2ML solution auto-injector as directed Subcutaneous Active Dupilumab (2 sources) Start: 07-25-2024 Dupilumab (Dupixent Syringe) 100 mg/0.67 mL syringe Active 300 MG SUBCUT EVERY 2 WEEKS July 25, 2024 12:00am 30 actuat fluticasone furoate 0.1 mg/actuat / umeclidinium 0.0625 mg/actuat / vilanterol 0.025 mg/actuat dry powder inhaler (17 sources) Anticholinergic, Corticosteroid, beta2-Adrenergic Agonist Start: 05-23-2024 [...] 2023 12:00am July 25, 2024 1:39pm Magnesium (20 sources) take 200 mg by mouth in [...] extended release oral tablet (20 sources) beta-Adrenergic Shyam Start: 09-05-2024 take 1 tablet by mouth every twenty-four hours in the morning metoprolol succinate XL (Toprol-XL) 50 MG 24 hr tablet Take 50 mg by mouth in the morning and 50 mg before bedtime. 09/05/2024 Active Start: 07-25-2024 take 1 tablet by rebecca th every twenty-four hours Metoprolol Succinate 50 mg [...] with food Orally Twice a day Active nitroglycerin 0.4 mg sublingual tablet (5 sources) Nitrate Vasodilator Start: 09-05-2024 nitroglycerin (Nitrostat) 0.[address] 0.4 mg under the tongue every 5 (five) minutes if needed for chest pain 09/05/2024 Active olmesartan medoxomil 40 mg oral tablet (20 sources) Angiotensin 2 Receptor Shyam Start: 11-16-2023 take 1 tablet by mouth [...] ranolazine 500 mg extended release oral tablet (17 sources) Anti-anginal Start: 05-23-2024 End: 05-23-2025 take [...] Problem Classification Problem Date Documented Date Episodic/Chronic Acute myocardial infarction (2 sources) Non-ST elevation (NSTEMI) myocardial infarction; Translations: [Non-ST elevation (NSTEMI) myocardial infarction] Onset: 09-03-2024 Chronic Cardiac dysrhythmias (20 sources) Irregular heart beat; [...] Onset: 12-28-2016 Chronic Congestive heart failure; nonhypertensive (4 sources) Chronic systolic (congestive) heart failure; Translations: [Chronic diastolic (congestive) heart failure] Onset: 09-22-2024 Chronic Coronary atherosclerosis and other heart disease (20 sources) Atherosclerotic heart disease of hoh coronary artery without angina pectoris; Translations: [Coronary arteriosclerosis] Onset: 12-28-2016 Chronic Deficiency and other anemia (5 sources) Anemia, unspecified; Translations: [Anemia, unspecified] Episodic Deficiency and other anemia (4 sources) Anemia; Translations: [Anemia, unspecified] 11-13-2023 Episodic Diseases of white blood cells (13 sources) Leukocytosis; Translations: [Elevated white blood cell [...] kidney disease] Onset: 01-08-2022 Chronic Nutritional deficiencies (10 sources) Vitamin D deficiency; Translations: [Vitamin D deficiency, unspecified] Chronic Other endocrine disorders (2 sources) Hyperparathyroidism; Translations: [Hyperparathyroidism, unspecified] 07-25-2024 Chronic Other endocrine disorders (2 sources) Hyperparathyroidism, unspecified; Translations: [Hyperparathyroidism, unspecified] 07-25-2024 Chronic Other lower respiratory disease (2 sources) Shortness of breath; Translations: [Shortness of breath] Onset: 07-08-2022 Episodic Other nutritional; endocrine; and metabolic disorders (20 sources) Hypomagnesemia; Translations: [Hypomagnesemia] Onset: 10-27-2022 11-13-2023 Chronic Other nutritional; endocrine; and metabolic disorders (5 sources) Hypomagnesemia; 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 Other nutritional; endocrine; and metabolic disorders (20 sources) Obesity caused by energy imbalance; Translations: [Morbid (severe) obesity due to excess calories] Onset: 06-08-2024 06-08-2024 Chronic Other nutritional; endocrine; and metabolic disorders (19 sources) Body mass index 30+ - obesity; [...] conditions (not mental disorders or infectious disease) (10 sources) Elevated C-reactive protein; Translations: [Elevated C-reactive protein (CRP)] Onset: 07-26-2024 07-26-2024 Episodic Pneumonia (except that caused by tuberculosis or sexually transmitted disease) (9 sources) Right lower zone pneumonia; Translations: [Pneumonia, unspecified organism] Onset: 09-03-2024 09-06-2024 Episodic Residual codes; unclassified (2 sources) Localized edema; Translations: [Localized edema] Onset: 09-22-2024 Episodic Respiratory failure; insufficiency; arrest (adult) (7 sources) Acute respiratory failure; Translations: [Acute respiratory failure with hypoxia] Onset: 09-03-2024 09-06-2024 Episodic Unclassified (1 source) Other ventricular tachycardia; Translations: [Other ventricular tachycardia] Onset: 11-17-2022 Past or Other Problems Problem Classification Problem Date Documented Da te Episodic/Chronic Fluid and electrolyte disorders (20 sources) Hyperkalemia; Translations: [Hypo-osmolality and hyponatremia] Onset: 08-06-2022 Episodic Nonspecific chest pain (4 sources) Other chest [...] Test Name Value Interpretation Reference Range Facility ITPon 10-04-2024 [place] [address] Cardiac Rehab Report Signed Patient: CHIARA EDUARDO MR#: [id number] : 1955 Acct:[id number] Age/Sex: 69 / F ADM Date: 10/03/24 Loc: CR Attending Dr: Abby Ward M.D. Ordering Physician: Luis Schumacher D.O. Date of Service: 10/02/24 Procedure(s): ITP Accession Number(s): [id number] cc: [facility] Test Date: 2024-10-02 Pat Name: CHIARA EDUARDO Department: Room: - Gender: Female Referral Specialist: : 1955 Requested By: Luis Schumacher Order Number: [id number] Reading MD: Luis Schumacher Interpretive Statements Okay to proceed with outlined treatment plan. Electronically Signed On 10-04-2024 10:08:06 EDT by uLis Schumacher Dictated By: Luis Schumacher D.O. Signed By: 10/04/24 1008 10/04/24 1008 DD/ 1145 TD/TT: Vp Outcomes: [facility] Radiology, Radiologist, MD - 10/04/2024 [place] [address] Cardiac Rehab Report Signed Patient: CHIARA EDUARDO MR#: [id number] : 1955 Acct:[id number] Age/Sex: 69 / F ADM Date: 10/03/24 Loc: CR Attending Dr: Abby Ward M.D. Ordering Physician: Luis Schumacher D.O. Date of Service: 10/02/24 Procedure(s): ITP Accession Number(s): [id number] cc: [facility] Test Date: 2024-10-02 Pat Name: CHIARA EDUARDO Department: Room: - Gender: Female Referral Specialist: : 1955 Requested By: Luis Schumacher Order Number: [id number] Reading MD: Luis Schumacher Interpretive Statements Okay to proceed with outlined treatment plan. Electronically Signed On 10-04-2024 10:08:06 EDT by Luis Schumacher Dictated By: Luis Schumacher D.O. Signed By: 10/04/24 1008 10/04/24 1008 DD/ 1145 TD/TT: Vp Outcomes: [place] [address] Cardiac Rehab Report Signed Patient: CHIARA EDUARDO MR#: [id number] : 1955 Acct:[id number] Age/Sex: 69 / F ADM Date: 10/03/24 Loc: CR Attending Dr: Abby Ward M.D. Ordering Physician: Luis Schumacher D.O. Date of Service: 10/03/24 Procedure(s): ITP Accession Number(s): [id number] cc: [facility] Test Date: 2024-10-03 Pat Name: CHIARA EDUARDO Department: Room: - Gender: Female Referral Specialist: : 1955 Requested By: Luis Schumacher Order Number: [id number] Dane MD: Luis Schumacher Interpretive Statements Okay to proceed with outlined treatment plan. Electronically Signed On 10-04-2024 10:08:18 EDT by Luis Schumacher Dictated By: Luis Schumacher D.O. Signed By: 10/04/24 1008 10/04/24 1008 DD/ 1245 TD/TT: Vp Outcomes: [facility] Radiology, Radiologist, - 10/04/2024 [place] [address] Cardiac Rehab Report Signed Patient: CHIARA EDUARDO MR#: [id number] : 1955 Acct:[id number] Age/Sex: 69 / F ADM Date: 10/03/24 Loc: CR Attending Dr: Abby Ward M.D. Ordering Physician: Luis Schumacher D.O. Date of Service: 10/03/24 Procedure(s): ITP Accession Number(s): [id number] cc: [facility] Test Date: 2024-10-03 Pat Name: CHIARA EDUARDO Department: Room: - Gender: Female Referral Specialist: : 1955 Requested By: Luis Schumacher Order Number: [id number] Reading MD: Luis Schumacher Interpretive Statements Okay to proceed with outlined treatment plan. Electronically Signed On 10-04-2024 10:08:18 EDT by Luis Schumacher Dictated By: Luis Schumacher D.O. Signed By: 10/04/24 1008 10/04/24 1008 DD/ 1245 TD/TT: Vp Outcomes: [facility] No Panel InformationOrdered By: Radiologist Radiology on 10-04-2024 [facility] Work Phone: 36on 10-03-2024 36 Spoke with patient and made her aware to stop spironolactone per Dr. Ward. She verbalized understanding and will do so. She will have repeat BMP on Wednesday, 10/09. Order faxed to [facility]. [facility] 36 Regarding lab result s from 10/03/2024: MD Milli Luevano MA; Zack Luu CNP Her s.cr is 2.0! Whatever was started (Farxiga?) needs to be stopped and BMP repeated in 5 days. Please have her report any abnormal symptoms (difficulty urinating, dysuria, flank pain etc....) Thanks I see Zack saw her on 09/22/2024 and started her on spironolactone. Would you like her to stop both that and Farxiga? [facility] ALL BASIC METABOLIC PANELon 10-03-2024 Anion gap [Moles/Vol] 11.8 mmol/L NO [facility] Calcium [Mass/Vol] 9.1 mg/dL 8.5 - 10. 1 mg/dL [facility] Chloride [Moles/Vol] 96 mmol/L Low 98 - 10 7 mmol/L [facility] CO2 [Moles/Vol] 29.1 mmol/L 21.0 - 32.0 mmol/L [facility] Creatinine [Mass/Vol] 2.01 mg/dL High 0.55 - 1.02 mg/dL [facility] GFR/1.73 sq M.predicted CKD-EPI (S/P/Bld) [Vol rate/Area] 30 Low >=60 mL/min/1.73m 2 [facility] Glucose [Mass/Vol] 115 mg/dL High 74 - 106 mg/dL [facility] Interpretation and review of laboratory results Abnormal [facility] Potassium [Moles/Vol] 4.9 mmol/L 3.5 - 5.1 mmol/L [facility] Sodium [Moles/Vol] 132 mmol/L Low 136 - 145 mmol/L [facility] TBH EGFR-NON AF CITIZEN OF [place] 24 Low >=60 mL/min/1.73m 2 [facility] Urea nitrogen [Mass/Vol] 31 mg/dL High 7.0 - 18.0 mg/dL [facility] Urea nitrogen/Creatinine [Mass ratio] 15.4 mg/mg [facility] ITPon 10-03-2024 Radiology Study observation (narrative) [facility] Telephoneon 10-03-2024 Telephone [id number] Chiara Eduardo 1955 F Date Provider Department Center 10/03/2024 MILLI SMITH JUSTIN Garcia Family History Problem Relation Age of Onset Stroke Mother Kidney disease Father Coronary artery disease Paternal Grandfather Family Status - Relation Status Age at Mother Father Paternal Grandfather [facility] ITPon 10-02-2024 Radiology Study observation (narrative) [facility] Follow-Upon 09-22-2024 Follow-Up [id number] Chiara Eduardo 1955 F Date Provider Department Center 09/22/2024 ZACK GREENE Family History Problem Relation Age of Onset Stroke Mother Kidney disease Father Coronary artery disease Paternal Grandfather Family Status - Relation Status Age at Mother Father Paternal Grandfather Level of Service:14680 [place] OFFICE/OUTPATIENT ESTABLISHED MOD MDM 30 MIN [facility] 30on 09-05-2024 30 The patient is Moderately Stable - Low risk of patient condition declining or worsening The patient's goals for the shift include comfort The clinical goals for the shift include stable vitals, safety Patient is adequate for discharge. Problem: Safety - Adult Goal: Free from fall injury Outcome: Adequate for Discharge Problem: Discharge Planning Goal: Discharge to home or other facility with appropriate resources Outcome: Adequate for Discharge Problem: Chronic Conditions and Co-morbidities Goal: Patient's chronic conditions and co-morbidity symptoms are monitored and maintained or improved Outcome: Adequate for Discharge Problem: Respiratory - Adult Goal: Achieves optimal ventilation and oxygenation Outcome: Adequate for Discharge Problem: Cardiovascular - Adult Goal: Maintains optimal cardiac output and hemodynamic stability Outcome: Adequate for Discharge Problem: Skin/Tissue Integrity - Adult Goal: Skin integrity remains intact Outcome: Adequate for Discharge Problem: Pain - Adult Goal: Verbalizes/displays adequate comfort level or baseline comfort level Outcome: Adequate for Discharge [facility] 30 Doctor Of Veterinary Medicine went bedside and talked with patient about home oxygen. Doctor Of Veterinary Medicine asked if patient has any preference of home oxygen company. Patient stated she does not, and is agreeable to be set up with [employer]. Doctor Of Veterinary Medicine called and talked with with Keny from [employer], Keny Confirmed they service patients area, and take patients insurance. Keny told automobile and property underwriter to fax over Clinicals and provide patient a portable tank. -- Clinicals gathered and faxed over at 11:25 am -- Doctor Of Veterinary Medicine received confirmation fax. Doctor Of Veterinary Medicine called [employer] office and talked with Brock. Doctor Of Veterinary Medicine inform Brock that clinicals were faxed over and confirmation fax was received. Brock stated patient is not in their system yet but will keep a look of for it and will call patient back as soon as patient gets put into their system. Doctor Of Veterinary Medicine provided call back number. Doctor Of Veterinary Medicine called and talked to Nicole from [employer], She confirmed that they have everything they need and that automobile and property underwriter can give patient a portable oxygen tank to go home with, and for automobile and property underwriter to instruction patient to call them when she leaves the hospital. Doctor Of Veterinary Medicine went bedside and provided portable oxygen tank to patient, Doctor Of Veterinary Medicine educated patient on portable oxygen tank and on the need to call [employer] as soon as she leave the hospital. Patient stated she understands and had no other questions at this time. ------ Doctor Of Veterinary Medicine received call from [employer] asking for discharge summery to be faxed over as well. Doctor Of Veterinary Medicine faxed over discharge summery. Doctor Of Veterinary Medicine received confirmation fax. Doctor Of Veterinary Medicine called Jaqueline from [employer] to confirm they got discharge summery. Doctor Of Veterinary Medicine was told that it hasn't arrived in there system yet but it can take some time. Doctor Of Veterinary Medicine informed Jaqueline that patient has discharged and that patient will need equipment delivered today. Jaqueline stated they will still be able to deliver oxygen equipment today, they just need the Discharge summery as well. Doctor Of Veterinary Medicine provided writers call back number to Jaqu[employer], if they need anything else. Doctor Of Veterinary Medicine called and talked with Brock at [employer] who confirmed they got the discharge summery and everything is set to go for patient to get her home oxygen equipment tonight. [facility] BASIC METABOLIC PANELon 06--2024 Anion gap [Moles/Vol] 9 mmol/L Normal 7-20 [facility] Comment on above: Performed By: #### L [id number] #### [facility] ([facility]) [address] [place] [address] Calcium [Mass/Vol] 8.1 mg/dL Low 8.6-10.3 [facility] Comment on above: Performed By: #### L [id number] #### [facility] ([facility]) [address] [place] [address] Chloride [Moles/Vol] 105 mmol/L Normal 98-107 [facility] Comment on above: Performed By: #### L [id number] #### [facility] ([facility]) [address] [place] [address] CO2 [Moles/Vol] 24 mmol/L Normal 21-31 [facility] Comment on above: Performed By: #### L [id number] #### [facility] ([facility]) [address] [place] [address] Creatinine [Mass/Vol] 1.24 mg/dL High 0.60-1.20 [facility] Comment on above: Performed By: #### L [id number] #### [facility] ([facility]) [address] [place] [address] GLOMERULAR FILTRATION RATE ML/MIN/1.73 SQ M.PREDICTED 46.5 mL/min/1.73m*2 Low >60.0 [facility] Comment on above: Result Comment: [facility]???s estimated glomerular filtration rate (eGFR) will [...] group of individuals. Performed By: #### L [id number] #### [facility] ([facility]) [address] [place] [address] Glucose [Mass/Vol] 92 mg/dL Normal 70-100 [facility] Comment on above: Performed By: #### L [id number] #### [facility] ([facility]) [address] [place] [address] Potassium [Moles/Vol] 4.2 mmol/L Normal 3.5-5.1 [facility] Comment on above: Performed By: #### L [id number] #### [facility] ([facility]) [address] [place] [address] Sodium [Moles/Vol] 134 mmol/L Low 136-145 [facility] Comment on above: Performed By: #### L [id number] #### [facility] ([facility]) [address] [place] [address] Urea nitrogen [Mass/Vol] 26 mg/dL High 7-25 [facility] Comment on above: Performed By: #### L [id number] #### [facility] ([facility]) [address] [place] [address] UREA NITROGEN/CREATININE (MASS RATIO) IN SER/PLAS 21.0 [facility] Comment on above: Performed By: #### L [id number] #### [facility] ([facility]) [address] [place] [address] CBCon 09-05-2024 Erythrocyte distribution width (RBC) [Ratio] 14.0 % Normal 11.5-15.0 [facility] Comment on above: Performed By: #### L [id number] #### [facility] ([facility]) [address] [place] [address] ERYTHROCYTE MEAN CORPUSCULAR HEMOGLOBIN CONCENTRATION (G/DL) BY AUTOMATED 32.0 g/dL Normal 32.0-35.0 [facility] Comment on above: Performed By: #### L [id number] #### [facility] ([facility]) [address] [place] [address] Hematocrit (Bld) [Volume fraction] 31.9 % Low 36.0-45.0 [facility] Comment on above: Performed By: #### L [id number] #### [facility] ([facility]) [address] [place] [address] Hemoglobin (Bld) [Mass/Vol] 10.2 g/dL Low 12.0-15.0 [facility] Comment on above: Performed By: #### L [id number] #### [facility] ([facility]) [address] [place] [address] MCH (RBC) [Entitic mass] 30.8 pg Normal 27.0-33.0 [facility] Comment on above: Performed By: #### L [id number] #### [facility] [address] [place] [address] MCV (RBC) [Entitic vol] 96.4 fL Normal 82.0-98.0 [facility] Comment on above: Performed By: #### L [id number] #### [facility] ([facility]) [address] [place] [address] PLATELETS (10*3/UL) IN BLOOD AUTOMATED COUNT 247 10*3/uL Normal 150-400 [facility] Comment on above: Performed By: #### L [id number] #### [facility] ([facility]) [address] [place] [address] RBC (Bld) [#/Vol] 3.31 10*6/uL Low 3.80-5.00 [facility] Comment on above: Performed By: #### L [id number] #### [facility] ([facility]) [address] [place] [address] WBC (Bld) [#/Vol] 17.69 10*3/uL High 4.00-10.60 [facility] Comment on above: Performed By: #### L [id number] #### [facility] [address] [place] [address] NURSNOTEon 09-05-2024 NURSNOTE The findings from this face to face [...] concerns at this time. Dx:COPD 99 MONTHS Normal [facility] 30on 09-04-2024 30 The patient is Moderately Stable - [...] appliance change or resting period as needed Normal [facility] 30 The patient is Moderately Stable [...] monitored and maintained or improved Outcome: Progressing Problem: Respiratory - Adult Goal: Achieves optimal ventilation and oxygenation Outcome: Progressing Normal [facility] ANTI-XA (HEPARIN LEVEL)on HEPARIN UNFRACTIONATED (U/ML) IN PPP BY CHROMOGENIC METHOD <0.10 Invalid Interpretation Code 0.3-0.7 [facility] Comment on above: Order Comment: Check anti-Xa level every 6 hours while on heparin infusion, or per protocol. Result Comment: Irlanda roxaban and Apixaban will interfere with the anti Xa assay used to monitor UFH and LMWH. Performed By: #### L [id number] #### [facility] ([facility]) [address] [place] [address] HEPARIN UNFRACTIONATED (U/ML) IN PPP BY CHROMOGENIC METHOD 0.61 IU/mL Normal 0.3-0.7 [facility] Comment on above: Order Comment: Check anti-Xa level every 6 hours while on heparin infusion, or per protocol. Result Comment: Hermon roxaban and Apixaban will interfere with the anti Xa assay used to monitor UFH and LMWH. Performed By: #### L [id number] #### [facility] ([facility]) [address] [place] [address] HEPARIN UNFRACTIONATED (U/ML) IN PPP BY CHROMOGENIC METHOD >1.00 Critically high 0.3-0.7 [facility] Comment on above: Order Comment: Check anti-Xa level every 6 hours while on heparin infusion, or per protocol. Result Comment: Irlanda roxaban and Apixaban will interfere with the anti Xa assay used to monitor UFH and LMWH. Performed By: #### L [id number] #### [facility] ([facility]) [address] [place] [address] ARTERIAL BLOOD GAS WITH IONI ZED CALCIUMon 09-04-2024 Base excess Calc (Bld) [Moles/Vol] -1.8000 mmol/L Normal -2.0-3.0 [facility] Comment on above: Performed By: #### L [id number] ####[facility] [id number] [place] [address] [facility] CALCIUM IONIZED (MMOL/L) IN BLOOD 1.20 mmol/L Normal 1.15-1.33 [facility] Comment on above: Performed By: #### L [id number] ####[facility] [id number] [place] [address] [facility] CO2 (Bld) [Partial pressure] 42 mm[Hg] Normal 35-48 [facility] Comment on above: Performed By: #### L [id number] ####[facility] [id number] [place] [address] [facility] FIO2 40 % Normal [facility] Comment on above: Performed By: #### L [id number] ####[facility] [id number] [place] [address] [facility] HCO3 (Bld) [Moles/Vol] 23.7 mmol/L Normal 21.0-28.0 [facility] Comment on above: Performed By: #### L [id number] ####[facility] [id number] [place] [address] [place] Oxygen (Bld) [Partial pressure] 92 mm[Hg] Normal 83-100 [facility] Comment on above: Performed By: #### L [id number] ####[facility] [id number] [place] [address] [place] OXYGEN SATURATION (%) IN ARTERIAL BLOOD 97.9 % Normal 94.0-98.0 [facility] Comment on above: Performed By: #### L [id number] ####[facility] [id number] [facility] [place] [address] [facility] pH (Bld) 7.36 [pH] Normal 7.35-7.45 [facility] Comment on above: Performed By: #### L [id number] ####[facility] [id number] [place] [address] [facility] SOURCE OF OXYGEN High flow nasal cannula Normal [facility] Comment on above: Performed By: #### L [id number] ####[facility] [id number] [place] [address] [facility] BASIC METABOLIC PANELon 06-0 Anion gap [Moles/Vol] 10 mmol/L Normal 7-20 [facility] Comment on above: Performed By: #### L [id number] ####[facility] ([facility])[address] [place] [address] Calcium [Mass/Vol] 7.7 mg/dL Low 8.6-10.3 [facility] Comment on above: Performed By: #### L [id number] ####[facility] ([facility])[address] [place] [address] Chloride [Moles/Vol] 105 mmol/L Normal 98-107 [facility] Comment on above: Performed By: #### L [id number] ####[facility] ([facility])[address] [place] [address] CO2 [Moles/Vol] 23 mmol/L Normal 21-31 [facility] Comment on above: Performed By: #### L [id number] ####[facility] ([facility])[address] [place] [address] Creatinine [Mass/Vol] 1.21 mg/dL High 0.60-1.20 [facility] Comment on above: Performed By: #### L [id number] ####[facility] ([facility])[address] [place] [address] GLOMERULAR FILTRATION RATE ML/MIN/1.73 SQ M.PREDICTED 47.9 mL/min/1.73m*2 Low >60.0 [facility] Comment on above: Result Comment: [facility]???s estimated glomerular filtration rate (eGFR) will [...] of individuals. Performed By: #### L [id number] ####[facility] ([facility])[address] [place] [address] Glucose [Mass/Vol] 113 mg/dL High 70-100 [facility] Comment on above: Performed By: #### L [id number] ####[facility] ([facility])[address] [place] [address] Potassium [Moles/Vol] 4.5 mmol/L Normal 3.5-5.1 [facility] Comment on above: Performed By: #### L [id number] ####[facility] ([facility])[address] [place] [address] Sodium [Moles/Vol] 133 mmol/L Low 136-145 [facility] Comment on above: Performed By: #### L [id number] ####[facility] ([facility])[address] [place] [address] Urea nitrogen [Mass/Vol] 24 mg/dL Normal 7-25 [facility] Comment on above: Performed By: #### L [id number] ####[facility] ([facility])[address] [place] [address] UREA NITROGEN/CREATININE (MASS RATIO) IN SER/PLAS 19.8 Normal [facility] Comment on above: Performed By: #### L [id number] ####[facility] ([facility])[address] [place] [address] BLOOD CULTUREon 09-04-2024 Bacteria identified Cx Nom (Bld) No growth at 5 days Normal [facility] Comment on above: Order Comment: From a different site than #1. Performed By: #### L [id number] ####[facility] [place] [address] Bacteria identified Cx Nom (Bld) No growth at 5 days Normal [facility] Comment on above: Performed By: #### L [id number] ####[facility] [place] [address] CBCon 09-04-2024 Erythrocyte distribution width (RBC) [Ratio] 14.0 % Normal 11.5-15.0 [facility] Comment on above: Performed By: #### L [id number] ####[facility] ([facility])[address] [place] [address] ERYTHROCYTE MEAN CORPUSCULAR HEMOGLOBIN CONCENTRATION (G/DL) BY AUTOMATED 32.5 g/dL Normal 32.0-35.0 [facility] Comment on above: Performed By: #### L [id number] ####[facility] [place] [address] Hematocrit (Bld) [Volume fraction] 32.0 % Low 36.0-45.0 [facility] Comment on above: Performed By: #### L [id number] ####[facility] ([facility])[address] [place] [address] Hemoglobin (Bld) [Mass/Vol] 10.4 g/dL Low 12.0-15.0 [facility] Comment on above: Performed By: #### L [id number] ####[facility] ([facility] [place] [address] MCH (RBC) [Entitic mass] 31.4 pg Normal 27.0-33.0 [facility] Comment on above: Performed By: #### L [id number] ####[facility] ([facility])[address] [place] [address] MCV (RBC) [Entitic vol] 96.7 fL Normal 82.0-98.0 [facility] Comment on above: Performed By: #### L [id number] ####[facility] ([place])[address] [place] [address] PLATELETS (10*3/UL) IN BLOOD AUTOMATED COUNT 227 10*3/uL Normal 150-400 [facility] Comment on above: Performed By: #### L [id number] ####[facility] ([facility])[address] [place] [address] RBC (Bld) [#/Vol] 3.31 10*6/uL Low 3.80-5.00 [facility] Comment on above: Performed By: #### L [id number] ####[facility] ([facility])[address] [place] [address] WBC (Bld) [#/Vol] 19.91 10*3/uL High 4.00-10.60 [facility] Comment on above: Performed By: #### L [id number] ####[facility] ([place])[address] [place] [address] CONSULTon 09-04-2024 CONSULT - Attestation signed by Manny Younger MD at [...] We suspect this is a type 2 CT and, if she remains clinically stable, recommend no further cardiac evaluation at this time. We do recommend you continue aspirin, isosorbide, toprol XL, atorvastatin and other cardiac medications. Cardiology Consult Note Reason for Consult: NSTEMI HPI: Chiara Eduardo is a 69 y.o. female with a history of coronary artery disease, prior stent placement, COPD, History of acute inferior wall CT, HT, HLP, CKD, obesity presented with shortness of breath Cardiology consulted for elevated troponin and SOB Patient presented with worsening shortness of breath. She presented to [facility], found to have right lower lobe pneumonia, with increasing troponin to 78.9, lactic of 3.2, patient was started on heparin drip, antibiotics, and was sent to [facility] for further workup. Cardiac history:history of [...] swelling. Negative for chest pain. Neurological: Negative. Psychiatric/Behaviora l: Negative. Past Medical History She has a past medical history of Abnormal ECG, Chronic GERD (12/28/2016), Chronic kidney disease, COPD (chronic obstructive pulmonary disease) ([facility]), Coronary artery disease, Coronary artery disease involving hoh coronary artery of hoh heart without angina pectoris (12/28/2016), Essential hypertension [...] Daily atorvastatin (LIPITOR) 80 mg, oral, Daily kjtwmnhxgu-meipnsuk-l ormoterol (Breztri Aerosphere) 160-9-4.8 mcg/actuation HFA aerosol inhaler [...] inhalation, Daily Medications Prior to Admission Medication Si (more content not included)... [facility] HIGH SENSITIVITY CRPon 09-04 CRP, HIGH SENSITIVITY >300.0 High <=3.0 [facility] Comment on above: Result Comment: INTE RPRETIVE INFORMATION: CRP, High Sensitivity Patients with higher [...] 3.0 mg/L ... high risk Performed By: [facility] [address] [place] [address] Easement Man: Amol Tran MD, PhD CLIA Number: [id number] Performed By: #### L [id number] ####[facility] (BEAKER)[address] [place] [address] HIGH SENSITIVITY TROPONIN Io n 09-04-2024 HS TROPONIN I (NG/L) 1053 ng/L Critically high <15 [facility] Comment on above: Performed By: #### L [id number] ####[facility] ([facility])[address] [place] [address] LEGIONELLA ANTIGEN, URINEon 09-04-2024 LEGIONELLA AG, UR Negative Normal [facility] Comment on above: Result Comment: L. p neumophila serogroup 1 antigen not detected. A negative result does not exclude infection with Leginella pnemophila serogroup 1 nor does it rule out other microbial-caused respiratory infections of disease caused by other serogroups of Legionella pneumophila. Test Performed by [facility] [address] [place] [id number] - Released 09/04/2024 20:22 Performed By: #### L [id number] ####[facility] [id number] [place] [address] MAGNESIUMon 09-04-2024 Magnesium [Mass/Vol] 1.8 mg/dL Low 1.9-2.7 [facility] Comment on above: Performed By: #### L [id number] #### [facility] ([facility]) [address] [place] [address] MYCOPLASMA PNEUMONIAE PCRon 09-04-2024 MYCOPLASMA PNEUMONIAE PCR Not detected Normal [facility] Comment on above: Result Comment: NOT DETECTED - A negative result does not rule out the presence of PCR inhibitors in the patient specimen or assay specific nucleic acid in concentrations below the level of detection by the assay. INTERPRETIVE INFORMATION: Mycoplasma pneumoniae by PCR This test was developed and its performance characteristics determined by [facility]. It has not been cleared or approved by the [place] Food and Drug Administration. This test was performed in a CLIA certified laboratory and is intended for clinical purposes. Performed By: [facility] [address] [place] [address] Easement Man: Amol Tran MD, PhD CLIA Number: [id number] Performed By: #### L [id number] ####[facility] [place] [address] MYCOPLASMA PNEUMONIAE SOURCE Not Provided Normal [facility] Comment on above: Result Comment: Spec imen source was not provided. Please refer to the [facility] Test Directory for validated specimen source information: [email or web address]. Interpret results with caution. Performed By: #### L [id number] ####[facility] ([facility])[address] [place] [address] SEDIMENTATION RATEon 025 SEDIMENTATION RATE, ERYTHROCYTE 21 mm/hr Normal <30 [facility] Comment on above: Performed By: #### L [id number] #### [facility] ([facility]) [address] [place] [address] 30on 09-03-2024 30 Problem: Pain - Adul t Goal: Verbalizes/displays adequate comfort level or baseline [...] and behaviors that affect risk of falls [place] fall precautions as indicated by assessment Educate patient/family on patient safety, including physical limitations Instruct patient to call for assistance with activity based on assessment Modify environment to reduce risk of injury Consider OT/PT consult to assist with strengthening/mobilit y Problem: Discharge Planning Goal: Discharge to home [...] goals for the shift include VSS; safety Normal [facility] 30 The patient is Moderately Stable - Low risk of patient condition declining or worsening The patient's goals for the shift include Comfort The clinical goals for the shift include VSS, safety Normal [facility] APTTon 09-03-2024 ACTIVATED PARTIAL THROMBOPLASTIN TIME IN PPP BY COAGULATION ASSAY 49.3 Seconds High 25.0-35.0 [facility] Comment on above: Order Comment: Basel ine aPTT before initiating heparin infusion. Result Comment: Clin ical significance of the APTT is questionable in the presence of heparin. Performed By: #### L [id number] #### [facility] ([facility]) [address] [place] [address] B-TYPE NATRIURETIC PEPTIDEon 09-03-2024 Natriuretic peptide B (Bld) [Mass/Vol] 708 pg/mL High 0-100 [facility] Comment on above: Performed By: #### L [id number] ####[facility] ([facility])[address] [place] [address] CBC WITH AUTO DIFFERENTIALon 09-03-2024 Basophils (Bld) [#/Vol] 0.03 10*3/uL Normal 0.00-0.20 [facility] Comment on above: Performed By: #### L [id number] ####[facility] ([facility])[address] [place] [address] Basophils/100 WBC (Bld) 0.2 % Normal 0.0-1.0 [facility] Comment on above: Performed By: #### L [id number] ####[facility] ([facility])[address] [place] [address] Eosinophils (Bld) [#/Vol] 0.24 10*3/uL Normal 0.00-0.50 [facility] Comment on above: Performed By: #### L [id number] ####[facility] ([facility])[address] [place] [address] Eosinophils/100 WBC (Bld) 1.2 % Normal 0.0-6.0 [facility] Comment on above: Performed By: #### L [id number] ####[facility] ([facility])[address] [place] [address] Erythrocyte distribution width (RBC) [Ratio] 13.8 % Normal 11.5-15.0 [facility] Comment on above: Performed By: #### L [id number] ####[facility] [place] [address] ERYTHROCYTE MEAN CORPUSCULAR HEMOGLOBIN CONCENTRATION (G/DL) BY AUTOMATED 32.1 g/dL Normal 32.0-35.0 [facility] Comment on above: Performed By: #### L [id number] ####[facility] ([facility])[address] [place] [address] Hematocrit (Bld) [Volume fraction] 38.3 % Normal 36.0-45.0 [facility] Comment on above: Performed By: #### L [id number] ####[facility] ([facility])[address] [place] [address] Hemoglobin (Bld) [Mass/Vol] 12.3 g/dL Normal 12.0-15.0 [facility] Comment on above: Performed By: #### L [id number] ####[facility] ([facility])[address] [place] [address] Immature granulocytes (Bld) [#/Vol] 0.10 10*3/uL Normal 0.00-0.20 [facility] Comment on above: Performed By: #### L [id number] ####[facility] ([facility])[address] [place] [address] Immature granulocytes/100 WBC (Bld) 0.5 % Normal 0.0-1.0 [facility] Comment on above: Performed By: #### L [id number] ####[facility] (BE[facility])[address] [place] [address] Lymphocytes (Bld) [#/Vol] 0.28 10*3/uL Low 1.20-4.00 [facility] Comment on above: Performed By: #### L [id number] ####[facility] ([facility])[address] [place] [address] Lymphocytes/100 WBC (Bld) 1.4 % Low 20.0-45.0 [facility] Comment on above: Performed By: #### L [id number] ####[facility] [place] [address] MCH (RBC) [Entitic mass] 31.1 pg Normal 27.0-33.0 [facility] Comment on above: Performed By: #### L [id number] ####[facility] ([facility])[address] [place] [address] MCV (RBC) [Entitic vol] 97.0 fL Normal 82.0-98.0 [facility] Comment on above: Performed By: #### L [id number] ####[facility] [place] [address] Monocytes (Bld) [#/Vol] 0.67 10*3/uL Normal 0.10-1.00 [facility] Comment on above: Performed By: #### L [id number] ####[facility] ([facility])[address] [place] [address] Monocytes/100 WBC (Bld) 3.4 % Low 5.0-12.0 [facility] Comment on above: Performed By: #### L [id number] ####[facility] ([facility])[address] [place] [address] Neutrophils (Bld) [#/Vol] 18.60 10*3/uL High 1.60-7.60 [facility] Comment on above: Performed By: #### L [id number] ####[facility] (BE[facility]ER)[address] [place] [address] Neutrophils/100 WBC (Bld) 93.3 % High 40.0-72.0 [facility] Comment on above: Performed By: #### L [id number] ####[facility] [place] [address] NRBC (PER 100 WBCS) BY AUTOMATED COUNT 0.0 % Normal 0 [facility] Comment on above: Performed By: #### L [id number] ####[facility] ([facility])[address] [place] [address] PLATELETS (10*3/UL) IN BLOOD AUTOMATED COUNT 272 10*3/uL Normal 150-400 [facility] Comment on above: Performed By: #### L [id number] ####[facility] ([facility])[address] [place] [address] RBC (Bld) [#/Vol] 3.95 10*6/uL Normal 3.80-5.00 [facility] Comment on above: Performed By: #### L [id number] ####[facility] ([facility])[address] [place] [address] WBC (Bld) [#/Vol] 19.92 10*3/uL High 4.00-10.60 [facility] Comment on above: Performed By: #### L [id number] ####[facility] ([facility])[address] [place] [address] COMPREHENSIVE METABOLIC PANE Adam 09-03-2024 Albumin [Mass/Vol] 3.6 g/dL Normal 3.5-5.7 [facility] Comment on above: Performed By: #### L [id number] #### [facility] [address] [place] [address] ALP [Catalytic activity/Vol] 54 U/L Normal 34-104 [facility] Comment on above: Performed By: #### L [id number] #### [facility] [address] [place] [address] ALT [Catalytic activity/Vol] 19 U/L Normal 7-52 [facility] Comment on above: Performed By: #### L [id number] #### [facility] (BE[facility]ER) [address] [place] [address] Anion gap [Moles/Vol] 11 mmol/L Normal 7-20 [facility] Comment on above: Performed By: #### L [id number] #### [facility] ([facility]) [address] [place] [address] AST [Catalytic activity/Vol] 25 U/L Normal 13-39 [facility] Comment on above: Performed By: #### L [id number] #### [facility] ([facility]) [address] [place] [address] Bilirubin [Mass/Vol] 0.4 mg/dL Normal 0.3-1.0 [facility] Comment on above: Performed By: #### L [id number] #### [facility] ([facility]) [address] [place] [address] Calcium [Mass/Vol] 8.3 mg/dL Low 8.6-10.3 [facility] Comment on above: Performed By: #### L [id number] #### [facility] ([facility]) [address] [place] [address] Chloride [Moles/Vol] 103 mmol/L Normal 98-107 [facility] Comment on above: Performed By: #### L [id number] #### [facility] ([facility]) [address] [place] [address] CO2 [Moles/Vol] 25 mmol/L Normal 21-31 [facility] Comment on above: Performed By: #### L [id number] #### [facility] ([facility]) [address] [place] [address] Creatinine [Mass/Vol] 1.48 mg/dL High 0.60-1.20 [facility] Comment on above: Performed By: #### L [id number] #### [facility] ([facility]) [address] [place] [address] GLOMERULAR FILTRATION RATE ML/MIN/1.73 SQ M.PREDICTED 37.6 mL/min/1.73m*2 Low >60.0 [facility] Comment on above: Result Comment: [facility]???s estimated glomerular filtration rate (eGFR) will [...] group of individuals. Performed By: #### L [id number] #### [facility] ([facility] [address] [place] [address] Glucose [Mass/Vol] 130 mg/dL High 70-100 [facility] Comment on above: Performed By: #### L [id number] #### [facility] ([facility]) [address] [place] [address] Potassium [Moles/Vol] 4.8 mmol/L Normal 3.5-5.1 [facility] Comment on above: Performed By: #### L [id number] #### [facility] ([facility] [address] [place] [address] Protein [Mass/Vol] 6.0 g/dL Normal 6.0-8.3 [facility] Comment on above: Performed By: #### L [id number] #### [facility] ([facility] [address] [place] [address] Sodium [Moles/Vol] 134 mmol/L Low 136-145 [facility] Comment on above: Performed By: #### L [id number] #### [facility] ([facility]) [address] [place] [address] Urea nitrogen [Mass/Vol] 29 mg/dL High 7-25 [facility] Comment on above: Performed By: #### L [id number] #### [facility] ([facility]) [address] [place] [address] UREA NITROGEN/CREATININE (MASS RATIO) IN SER/PLAS 19.6 [facility] Comment on above: Performed By: #### L [id number] #### [facility] ([facility]) [address] [place] [address] HEMOGLOBIN A1Con 09-03-2024 Glucose [Mass/Vol] 143 mg/dL Normal [facility] Comment on above: Performed By: #### L [id number] #### [facility] ([facility]) [address] [place] [address] HbA1c (Bld) [Mass fraction] 6.6 % High 4.0-6.0 [facility] Comment on above: Performed By: #### L [id number] #### [facility] ([facility]) [address] [place] [address] HIGH SENSITIVITY TROPONIN Io n 09-03-2024 HS TROPONIN I (NG/L) 1478 ng/L Critically high <15 [facility] Comment on above: Performed By: #### L [id number] #### [facility] ([facility]) [address] [place] [address] HS TROPONIN I (NG/L) 1746 ng/L Critically high <15 [facility] Comment on above: Performed By: #### L [id number] #### [facility] ([facility]) [address] [place] [address] HS TROPONIN I (NG/L) 1891 ng/L Critically high <15 [facility] Comment on above: Performed By: #### L [id number] #### [facility] ([facility]) [address] [place] [address] LACTIC ACID WITH 4 HOUR REFL EXon 09-03-2024 LACTATE (MMOL/L) IN SER/PLAS 1.6 mmol/L Normal 0.5-2.2 [facility] Comment on above: Performed By: #### L [id number] ####[facility] [place] [address] LIPID PANELon 09-03-2024 CHOL/HDL 1.8 mg/dL Normal [facility] Comment on above: Performed By: #### L [id number] ####[facility] [place] [address] Cholesterol [Mass/Vol] 125 mg/dL Normal 120-200 [facility] Comment on above: Performed By: #### L [id number] ####[facility] ([facility] [place] [address] Magnesium [Mass/Vol] 44 mg/dL Normal <150 [facility] Comment on above: Result Comment: TRIG LYCERIDE REFERENCE RANGE: 20 YEARS AND OLDER CARDIOVASCULAR RISK LESS THAN 150 mg/dL LOW RISK 150 TO 199 mg/dL BORDERLINE RISK 200 mg/dL AND GREATER HIGH RISK Performed By: #### L [id number] ####[facility] ([facility])[address] [place] [address] Magnesium [Mass/Vol] 46 mg/dL Normal 0-160 [facility] Comment on above: Performed By: #### L [id number] ####[facility] ([facility] [place] [address] Magnesium [Mass/Vol] 70 mg/dL Normal 23-92 [facility] Comment on above: Performed By: #### L [id number] ####[facility] ([facility] [place] [address] NON HDL CHOL. (LDL+VLDL) 55 Normal [facility] Comment on above: Performed By: #### L [id number] ####[facility] ([facility] [place] [address] TOTAL VLDL-C 9 mg/dL Normal 0-40 [facility] Comment on above: Performed By: #### L [id number] ####[facility] ([facility])[address] [place] [address] LIPOPROTEIN A (LPA)on 2024 Magnesium [Mass/Vol] 33 mg/dL High <=29 [facility] Comment on above: Result Comment: Perf ormed By: [employer] [address] [place] [address] Easement Man: Amol Tran MD, PhD CLIA Number: [id number] Performed By: #### L [id number] #### [facility] ([facility]) [address] [place] [address] MAGNESIUMon 09-03-2024 Magnesium [Mass/Vol] 1.8 mg/dL Low 1.9-2.7 [facility] Comment on above: Performed By: #### L [id number] #### [facility] ([facility]) [address] [place] [address] SPUTUM CULTUREon 09-03-2024 GRAM STAIN RESULT Normal [facility] Comment on above: Order Comment: Light Growth Colonies Consistent with Upper Respiratory Terrie Result Comment: 10-2 5 Squamous Epithelial Cells Per Low Power Field >25 Polys Per Low Power Field Few Gram positive cocci in pairs Performed By: #### L [id number] ####[facility] ([facility])[address] [place] [address] ALL CBC WITH AUTO DIFFon BASOPHILS ABSOLUTE AUTO 0.1 [facility] Basophils/100 WBC (Bld) 0.8 % 0.2 - 2.0 % [facility] Eosinophils/100 WBC (Bld) 0.9 % 0.9 - 7.0 % [facility] Erythrocyte distribution width (RBC) [Ratio] 14.1 % 11.0 - 15.0 % [facility] Hematocrit (Bld) [Volume fraction] 38.4 % 36.0 - 48.0 % [facility] Hemoglobin (Bld) [Mass/Vol] 12.4 g/dL 12.0 - 16.0 g/dL [facility] IMMATURE GRANULOCYTES ABS AUTO 0.07 High [facility] Immature granulocytes/100 WBC (Bld) 0.7 % High 0.0 - 0.5 % [facility] Interpretation and review of laboratory results Abnormal [facility] LYMPHOCYTES ABSOLUTE AUTO 2.1 [facility] Lymphocytes/100 WBC (Bld) 19.2 % Low 20.5 - 60.0 % [facility] MCH (RBC) [Entitic mass] 31.6 pg 26.7 - 34.0 pg [facility] MCHC (RBC) [Mass/Vol] 32.3 g/dL 29.9 - 35.2 g/dL [facility] MCV (RBC) [Entitic vol] 97.7 fL 81.0 - 99.0 fL [facility] MONOCYTES ABSOLUTE AUTO 0.9 High [facility] Monocytes/100 WBC (Bld) 8.2 % 1.7 - 12.0 % [facility] NEUTROPHILS ABSOLUTE AUTO 7.5 High [facility] Neutrophils/100 WBC (Bld) 70.2 % 43.0 - 75.0 % [facility] Platelet mean volume (Bld) [Entitic vol] 9 fL Low 9.5 - 13.5 fL [facility] TBH EO # 0.1 [facility] TBH PLT 370 [facility] TBH RBC 3.93 Low [facility] TB WBC 10.7 [facility] Office Visiton 08-01-2024 Follow-up visit [id number] Chiara Eduardo 1955 F Date Provider Department Center 08/01/2024 271-ABBY WARD CARD [facility] Family History Problem Relation Age of Onset Stroke Mother Kidney disease Father Coronary artery disease Paternal Grandfather Family Status - Relation Status Age at Mother Father Paternal Grandfather Level of Service:69340 [place] OFFICE/OUTPATIENT ESTABLISHED LOW MDM 20 MIN Normal [facility] ALL CBC WITH AUTO DIFFon BASOPHILS ABSOLUTE AUTO 0.1 [facility] Basophils/100 WBC (Bld) 0.5 % 0.2 - 2.0 % [facility] Eosinophils/100 WBC (Bld) 0.3 % Low 0.9 - 7.0 % [facility] Erythrocyte distribution width (RBC) [Ratio] 14.6 % 11.0 - 15.0 % [facility] Hematocrit (Bld) [Volume fraction] 37.3 % 36.0 - 48.0 % [facility] Hemoglobin (Bld) [Mass/Vol] 12.3 g/dL 12.0 - 16.0 g/dL [facility] IMMATURE GRANULOCYTES ABS AUTO 0.04 High [facility] Immature granulocytes/100 WBC (Bld) 0.3 % 0.0 - 0.5 % [facility] Interpretation and review of laboratory results Abnormal [facility] LYMPHOCYTES ABSOLUTE AUTO 1.8 [facility] Lymphocytes/100 WBC (Bld) 15.7 % Low 20.5 - 60.0 % [facility] MCH (RBC) [Entitic mass] 32.1 pg 26.7 - 34.0 pg [facility] MCHC (RBC) [Mass/Vol] 33 g/dL 29.9 - 35.2 g/dL [facility] MCV (RBC) [Entitic vol] 97.4 fL 81.0 - 99.0 fL [facility] MONOCYTES ABSOLUTE AUTO 0.8 [facility] Monocytes/100 WBC (Bld) 6.9 % 1.7 - 12.0 % [facility] NEUTROPHILS ABSOLUTE AUTO 8.8 High [facility] Neutrophils/100 WBC (Bld) 76.3 % High 43.0 - 75.0 % [facility] Platelet mean volume (Bld) [Entitic vol] 9.3 fL Low 9.5 - 13.5 fL [facility] TBH EO # 0 [facility] TBH PLT 308 [facility] TB RBC 3.83 Low [facility] TB WBC 11.5 High [facility] Urine Cultureon 07-26-2024 Bacteria identified Cx Nom (U) 50,000 colonies/ml mixed bacterial skin contaminants 2 Days PERFORMED BY: [place] [address] PATHOLOGIST [employer]AND SUPERVISOR LETICIA KAHN M.D. Normal [facility] Comment on above: Performed By: #### C UU #### [address] 36on 07-25-2024 36 Regarding labs from 07/25/2024 [...] will still call her PCP on 07/26/2024 [facility] ALL CBC WITH AUTO DIFFon Erythrocyte distribution width (RBC) [Ratio] 14.5 % 11.0 - 15.0 % [facility] Hematocrit (Bld) [Volume fraction] 37.9 % 36.0 - 48.0 % [facility] Hemoglobin (Bld) [Mass/Vol] 12.4 g/dL 12.0 - 16.0 g/dL [facility] Interpretation and review of laboratory results Abnormal [facility] MCH (RBC) [Entitic mass] 31.3 pg 26.7 - 34.0 pg [facility] MCHC (RBC) [Mass/Vol] 32.7 g/dL 29.9 - 35.2 g/dL [facility] MCV (RBC) [Entitic vol] 95.7 fL 81.0 - 99.0 fL [facility] Platelet mean volume (Bld) [Entitic vol] 9.4 fL Low 9.5 - 13.5 fL [facility] TBH PLT 322 [facility] RBC 3.96 Low [facility] WBC 23.5 High [facility] Telephoneon 07-25-2024 Telephone [id number] Chiara Eduardo 1955 F Date Provider Department Center 07/25/2024 [id number] HARRISON [facility] History Problem Relation Age of Onset Stroke Mother Kidney disease Father Coronary artery disease Paternal Grandfather Family Status - Relation Status Age at Mother Father Paternal Grandfather [facility] Erythrocyte distribution wid th Auto (RBC) [Ratio]on 07-17-2024 Erythrocyte distribution width (RBC) [Ratio] Erythrocyte distribution width [Ratio] by Automated count 11.0-15.0 [facility] Estimated glomerular filtrat ion rate (GFR) non- Americanon 07-17-2024 GFR/1.73 sq M.predicted among non-blacks MDRD (S/P/Bld) [Vol rate/Area] Estimated glomerular filtration rate (GFR) non- Low >=60 mL/min/1.73m 2 [facility] Hematocrit Auto (Bld) [Volum e fraction]on 07-17-2024 Hematocrit (Bld) [Volume fraction] Hematocrit [Volume Fraction] of Blood by Automated count 36.0-48.0 [facility] Hemoglobin [Mass/volume] in Bloodon 07-17-2024 Hemoglobin (Bld) [Mass/Vol] Hemoglobin [Mass/volume] in Blood 12.0-16.0 [facility] Laboratory - Chemistry and C hemistry - challengeon 07-17-2024 Albumin [Mass/Vol] 3.4 g/dL 3.4-5.0 [facility] Calcium [Mass/Vol] 8.8 mg/dL 8.5-10.1 [facility] Chloride [Moles/Vol] 99 mmol/L 98-107 [facility] CO2 [Moles/Vol] 27.2 mmol/L 21.0-32.0 [facility] Creatinine [Mass/Vol] 1.44 mg/dL High 0.55-1.02 [facility] GFR/1.73 sq M.predicted MDRD (S/P/Bld) [Vol rate/Area] 43 mL/min/{1.73_m2} Low >=60 mL/min/1.73m 2 [facility] Glucose [Mass/Vol] 105 mg/dL 74-106 [facility] Magnesium [Mass/Vol] 2.1 mg/dL 1.8-2.4 [facility] Potassium [Moles/Vol] 4.9 mmol/L 3.5-5.1 [facility] Sodium [Moles/Vol] 135 mmol/L Low 136-145 [facility] Urate [Mass/Vol] 5.0 mg/dL 2.6-6.0 [facility] Urea nitrogen [Mass/Vol] 20.0 mg/dL High 7.0-18.0 [facility] Urea nitrogen/Creatinine [Mass ratio] 13.9 mg/mg [facility] Laboratory - Urinalysison Protein (U) [Mass/Vol] 25.2 mg/dL High <=11.9 [facility] Leukocytes [#/volume] correc maryuri for nucleated erythrocytes in Blood by Automated counon 07-17-2024 WBC corrected for nucl RBC Auto (Bld) [#/Vol] Leukocytes [#/volume] corrected for nucleated erythrocytes in Blood by Automated coun 4.0-11.0 [facility] MCH Auto (RBC) [Entitic mass ]on 07-17-2024 MCH (RBC) [Entitic mass] MCH [Entitic mass] by Automated count 26.7-34.0 [facility] MCHC Auto (RBC) [Mass/Vol]on 07-17-2024 MCHC (RBC) [Mass/Vol] MCHC [Mass/volume] by Automated count 29.9-35.2 [facility] MCV Auto (RBC) [Entitic vol] on 07-17-2024 MCV (RBC) [Entitic vol] MCV [Entitic volume] by Automated count 81.0-99.0 [facility] No Panel Informationon 07-17 Parathyroid Hormone (Intact) 68 pg/mL Abnormal 15-65 [facility] Comment on above: Performed at: [facility] [place] [id number] Director: True Herron PhD, Phone: [phone] Phosphorus Level 3.2 mg/dL 2.6-4.7 [facility] Urine Random Creatinine 68.16 mg/dL 20.00-300.00 [facility] Platelet mean volume Auto (B ld) [Entitic vol]on 07-17-2024 Platelet mean volume (Bld) [Entitic vol] Platelet mean volume [Entitic volume] in Blood by Automated count 9.5-13.5 [facility] Platelets Auto (Bld) [#/Vol] on 07-17-2024 Platelets (Bld) [#/Vol] Platelets [#/volume] in Blood by Automated count 150-450 [facility] RBC Auto (Bld) [#/Vol]on RBC (Bld) [#/Vol] Erythrocytes [#/volume] in Blood by Automated count Low 4.20-5.40 [facility] Serum or plasma anion gap de terminationon 07-17-2024 Anion gap [Moles/Vol] Serum or plasma an ion gap determination [facility] TBH URINE T PROTEIN CREAT RA TIJorge 07-17-2024 CREATININE URINE RANDOM 68.16 mg/dL 20.00 - 300.00 mg/dL [facility] Interpretation and review of laboratory results Abnormal [facility] Protein (U) [Mass/Vol] 25.2 mg/dL High NINF - 11.9 mg/dL [facility] PROTEIN CREATININE RATIO URINE 0.37 [facility] Urine protein/creatinine rat ioon 07-17-2024 Protein/Creatinine (U) [Ratio] Urine protein/creatinine ratio [facility] ANESon 07-03-2024 ANES - Attestation signed by Abby Ward MD at 07/03/2024 9:27 AM Abby Ward MD, MPH, [facility], [facility], [facility] Interventional Cardiology Pager Email: [email or web address] Patient: Chiara Eduardo Procedure Information Date/Time: 07/03/24 1030 Procedures: Coronary angiography - PC APPROVED 06/16-09/13 R IJ L RAD Right heart cath Location: [facility] JEWISH HISTORY PROFESSOR 3 / [facility] (Cath) Providers: Abby Ward MD [...] discussed with attending. Additional Equipment Requests Normal [facility] HPon 07-03-2024 HP - Attestation signed by Abby Ward MD at 07/03/2024 9:27 AM Abby Ward MD, MPH, [facility], [facility], [facility] Interventional Cardiology Pager Email: [email or web address] H&P reviewed. The patient was examined and there are no changes to the H&P. Proceed with CORS + C Geo Laboy MD PGY-5 [employer] [facility] Pager # [phone] Normal [facility] Pedro Luis 07-03-2024 NURSNOTE RN educated pt on d/ c instructions. This included: site care, limited physical [...] of unit with all of belongings. Normal [facility] NURSNOTE Per Dr. Medrano patient to get LR at 100ml per hr for pre cath hydration [facility] ALL CBC WITH AUTO DIFFon BASOPHILS ABSOLUTE AUTO 0.1 [facility] Basophils/100 WBC (Bld) 0.7 % 0.2 - 2.0 % [facility] Eosinophils/100 WBC (Bld) 0.9 % 0.9 - 7.0 % [facility] Erythrocyte distribution width (RBC) [Ratio] 15.5 % High 11.0 - 15.0 % [facility] Hematocrit (Bld) [Volume fraction] 36.4 % 36.0 - 48.0 % [facility] Hemoglobin (Bld) [Mass/Vol] 12 g/dL 12.0 - 16.0 g/dL [facility] IMMATURE GRANULOCYTES ABS AUTO 0.04 High [facility] Immature granulocytes/100 WBC (Bld) 0.4 % 0.0 - 0.5 % [facility] Interpretation and review of laboratory results Abnormal [facility] LYMPHOCYTES ABSOLUTE AUTO 1.2 [facility] Lymphocytes/100 WBC (Bld) 12.3 % Low 20.5 - 60.0 % [facility] MCH (RBC) [Entitic mass] 31.8 pg 26.7 - 34.0 pg [facility] MCHC (RBC) [Mass/Vol] 33 g/dL 29.9 - 35.2 g/dL [facility] MCV (RBC) [Entitic vol] 96.6 fL 81.0 - 99.0 fL [facility] MONOCYTES ABSOLUTE AUTO 0.7 [facility] Monocytes/100 WBC (Bld) 6.6 % 1.7 - 12.0 % [facility] NEUTROPHILS ABSOLUTE AUTO 8 High [facility] Neutrophils/100 WBC (Bld) 79.1 % High 43.0 - 75.0 % [facility] Platelet mean volume (Bld) [Entitic vol] 8.8 fL Low 9.5 - 13.5 fL [facility] TBH EO # 0.1 [facility] TBH PLT 290 [facility] TB RBC 3.77 Low [facility] TBH WBC 10.1 [facility] HPon 06-15-2024 [facility] Cardiology Clinic Note Chief Complaint: Patient here for follow up chest pain and addition of Ranexa per Dr. Mustafa. She thinks she's more SOB now that she's on it. Denies chest pain, palpitations, and lightheadedness/synco pe. HPI: Chiara Eduardo is a 69 y.o. female with a history of coronary artery disease, prior stent placement, COPD, nonsustained ventricular tachycardia here due to worsening symptoms. For the past several months, she has noticed worsening shortness of breath. 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 Normal [facility] Office Visiton 06-15-2024 Follow-up visit [id number] Chiara Eduardo 1955 F Date Provider Department Center 06/15/2024 Kee-ABBY WARD JUSTIN Garcia Family History Problem Relation Age of Onset Stroke Mother Kidney disease Father Coronary artery disease Paternal Grandfather Family Status - Relation Status Age at Mother Father Paternal Grandfather Level of Service:00560 [place] OFFICE/OUTPATIENT ESTABLISHED HIGH MDM 40 MIN [facility] Orders Onlyon 06-15-2024 Orders Only [id number] Chiara Eduardo 1955 F Date Provider Department Center 06/15/2024 Deidre5-ALLAN BUSTAMANTE JUSTIN Garcia Family History Problem Relation Age of Onset Stroke Mother Kidney disease Father Coronary artery disease Paternal Grandfather Family Status - Relation Status Age at Mother Father Paternal Grandfather Normal [facility] Office Visiton 05-23-2024 Follow-up visit [id number] Chiara Eduardo 1955 F Date Provider Department Center 05/23/2024 Lonny-XANDER MUSTAFA JUSTIN [facility] Family History Problem Relation Age of Onset Stroke Mother Kidney disease Father Coronary artery disease Paternal Grandfather Family Status - Relation Status Age at Mother Father Paternal Grandfather Level of Service:46571 [place] OFFICE/OUTPATIENT ESTABLISHED LOW MDM 20 MIN [facility] TBH URINE T PROTEIN CREAT RA TIJorge 02-02-2024 CREATININE URINE RANDOM 78.2 mg/dL 20.00 - 300.00 mg/dL [facility] Protein (U) [Mass/Vol] 8.7 mg/dL NINF - 11.9 mg/dL [facility] PROTEIN CREATININE RATIO URINE 0.11 [facility] ALL HEMOGLOBINon 01-24-2024 Hemoglobin (Bld) [Mass/Vol] 11 g/dL Low 12.0 - 16.0 g/dL [facility] Interpretation and review of laboratory results Abnormal [facility] 36on 01-04-2024 36 Patient seen today b y Dr. Mustafa. He wants to know if she can stop Effient due to easy bruising/bleeding. Please advise. Thanks. [facility] Office Visiton 01-04-2024 Follow-up visit [id number] Chiara Eduardo 1955 F Date Provider Department Center 01/04/2024 XANDER FARLEY JUSTIN [facility] Family History Problem Relation Age of Onset Stroke Mother Kidney disease Father Coronary artery disease Paternal Grandfather Family Status - Relation Status Age at Mother Father Paternal Grandfather Level of Service:12327 [place] OFFICE/OUTPATIENT ESTABLISHED LOW MDM 20 MIN [facility] Iron binding capacity [Mass/ volume] in Serum or Plasmaon 11-23-2023 Iron binding capacity [Mass/Vol] 365.0 ug/dL 250.0-450.0 [facility] Iron saturation [Mass Fracti on] in Serum or Plasmaon 11-23-2023 Iron saturation [Mass fraction] 5.5 % [facility] Laboratory - Chemistry and C hemistry - challengeon 11-23-2023 Ferritin [Mass/Vol] 25.0 ng/mL 8.0-252.0 [facility] Iron [Mass/Vol] 20.0 ug/dL Low 50.0-170.0 [facility] IRON [facility] TIBCon 2023 Interpretation and review of laboratory results Abnormal [facility] IRON 20.0 ug/dL Low 50.0 - 170.0 ug/dL [facility] TB PERCENT IRON SATURATION 5.5 % [facility] TOTAL IRON BINDING CAPACITY 365.0 ug/dL 250.0 - 450.0 ug/dL [facility] Erythrocyte distribution wid th Auto (RBC) [Ratio]on 11-08-2023 Erythrocyte distribution width (RBC) [Ratio] 16.4 % High 11.0-15.0 [facility] Estimated glomerular filtrat ion rate (GFR) non- Americanon 11-08-2023 GFR/1.73 sq M.predicted among non-blacks MDRD (S/P/Bld) [Vol rate/Area] 37 mL/min/{1.73_m2} Low >=60 [facility] Globulin Calc (S) [Mass/Vol] on 11-08-2023 Globulin (S) [Mass/Vol] 3.9 g/dL [facility] Hematocrit Auto (Bld) [Volum e fraction]on 11-08-2023 Hematocrit (Bld) [Volume fraction] 28.1 % Low 36.0-48.0 [facility] Hemoglobin [Mass/volume] in Bloodon 11-08-2023 Hemoglobin (Bld) [Mass/Vol] 8.7 g/dL Low 12.0-16.0 [facility] Laboratory - Chemistry and C hemistry - challengeon 11-08-2023 Albumin [Mass/Vol] 3.4 g/dL 3.4-5.0 [facility] ALP [Catalytic activity/Vol] 81 U/L 46-116 [facility] ALT [Catalytic activity/Vol] 26 U/L 14-59 [facility] AST [Catalytic activity/Vol] 23 U/L 15-37 [facility] Bilirubin [Mass/Vol] 0.3 mg/dL 0.2-1.0 [facility] Calcium [Mass/Vol] 8.7 mg/dL 8.5-10.1 [facility] Chloride [Moles/Vol] 93 mmol/L Low 98-107 [facility] CO2 [Moles/Vol] 27.4 mmol/L 21.0-32.0 [facility] Creatinine [Mass/Vol] 1.40 mg/dL High 0.55-1.02 [facility] GFR/1.73 sq M.predicted MDRD (S/P/Bld) [Vol rate/Area] 45 mL/min/{1.73_m2} Low >=60 [facility] Glucose [Mass/Vol] 96 mg/dL 74-106 [facility] Magnesium [Mass/Vol] 2.2 mg/dL 1.8-2.4 [facility] Potassium [Moles/Vol] 4.4 mmol/L 3.5-5.1 [facility] Protein [Mass/Vol] 7.3 g/dL 6.4-8.2 [facility] Sodium [Moles/Vol] 128 mmol/L Low 136-145 [facility] Urate [Mass/Vol] 5.6 mg/dL 2.6-6.0 [facility] Urea nitrogen [Mass/Vol] 20.0 mg/dL High 7.0-18.0 [facility] Urea nitrogen/Creatinine [Mass ratio] 14.3 mg/mg [facility] Bilirubin Ql (U) Negative NEGATIVE [facility] Glucose (U) [Mass/Vol] Negative NEGATIVE [facility] Ketones Ql (U) Negative NEGATIVE [facility] pH (U) 7.5 [pH] 5.0-9.0 [facility] Specific gravity (U) [Rel density] 1.010 1.005-1.025 [facility] Urobilinogen Qn (U) 0.2 {Chuy'U}/dL 0.2-1.0 [facility] - Specimen inform ationon 11-08-2023 Appearance (U) CLEAR CLEAR [facility] Color (U) YELLOW YELLOW [facility] - Urinalysison Leukocyte esterase Test strip Ql (U) Negative NEGATIVE [facility] Nitrite Ql (U) Negative NEGATIVE [facility] Protein (U) [Mass/Vol] 11.9 mg/dL <=11.9 [facility] Protein Ql (U) Negative NEG/TRACE [facility] Leukocytes [#/volume] correc maryuri for nucleated erythrocytes in Blood by Automated counon 11-08-2023 WBC corrected for nucl RBC Auto (Bld) [#/Vol] 7.3 10 3/uL 4.0-11.0 [facility] MCH Auto (RBC) [Entitic mass ]on 11-08-2023 MCH (RBC) [Entitic mass] 26.1 pg Low 26.7-34.0 [facility] MCHC Auto (RBC) [Mass/Vol]on 11-08-2023 MCHC (RBC) [Mass/Vol] 31.0 g/dL 29.9-35.2 [facility] MCV Auto (RBC) [Entitic vol] on 11-08-2023 MCV (RBC) [Entitic vol] 84.4 fL 81.0-99.0 [facility] No Panel Informationon 11-07 25-Hydroxy Vitamin D Total 32.6 ng/mL [facility] Comment on above: <20 ng/mL Vit D defi cient20-<30 ng/mL Vit D iwxjyricqoaa98-604 ng/mL Vit D sufficient>100 ng/mL Potential Toxicity Parathyroid Hormone (Intact) 106 pg/mL Abnormal 15-65 [facility] Comment on above: Performed at: - [employer] [address] [id number] Director: True Herron PhD, Phone: [phone] Phosphorus Level 3.8 mg/dL 2.6-4.7 [facility] Urine Occult Blood Negative NEGATIVE [facility] Urine Random Creatinine 73.41 mg/dL 20.00-300.00 [facility] Platelet mean volume Auto (B ld) [Entitic vol]on 11-08-2023 Platelet mean volume (Bld) [Entitic vol] 8.6 fL Low 9.5-13.5 [facility] Platelets Auto (Bld) [#/Vol] on 11-08-2023 Platelets (Bld) [#/Vol] 401 10 3/uL 150-450 [facility] RBC Auto (Bld) [#/Vol]on RBC (Bld) [#/Vol] 3.33 10 6/uL Low 4.20-5.40 [facility] [place] Serum or plasma albumin/glob ulin mass ratioon 11-08-2023 Albumin/Globulin [Mass ratio] 0.9 {ratio} [facility] Serum or plasma anion gap de terminationon 11-08-2023 Anion gap [Moles/Vol] 12.0 mmol/L [facility] Urine protein/creatinine rat ioon 11-08-2023 Protein/Creatinine (U) [Ratio] 0.16 [facility] Follow-Upon 10-12-2023 Follow-Up [id number] Chiara Eduardo 1955 F Date Provider Department Center 10/12/2023 XANDER [address] [facility] Family History Problem Relation Age of Onset Stroke Mother Kidney disease Father Coronary artery disease Paternal Grandfather Family Status - Relation Status Age at Mother Father Paternal Grandfather Level of Service:55442 [place] OFFICE/OUTPATIENT ESTABLISHED MOD MDM 30 MIN Normal [facility] PTH INTACTon 08-04-2022 PTH, Intact 41 pg/mL Normal 15-65 [facility] Comment on above: Performed By: #### P THINT ####[facility] [address] [address]Dr. Osmel Shelton HEMOGRAM AND PLATELon 2022 Hematocrit (Bld) [Volume fraction] 34.6 % Critically low 36.0-48.0 [facility] Comment on above: Performed By: #### H H #### [facility] [address] [address] [address] Osmel Shelton Hemoglobin (Bld) [Mass/Vol] 11.1 g/dL Critically low 12.0-16.0 [facility] Comment on above: Performed By: #### H H #### [facility] [address] [address] [address] Osmel Shelton MCH (RBC) [Entitic mass] 29.3 pg Normal 26.7-34.0 [facility] Comment on above: Performed By: #### H H #### [facility] [address] [address] [address] Osmel Shelton MCHC (RBC) [Mass/Vol] 32.1 g/dL Normal 29.9-35.2 [facility] Comment on above: Performed By: #### H H #### [facility] [address] [place] [address] Dr. Osmel Shelton MCV (RBC) [Entitic vol] 91.3 fL Normal 81.0-99.0 [facility] Comment on above: Performed By: #### H H #### [facility] [address] [place] [address] Dr. Osmel Shelton PLT 306 103/ul Normal 150-450 [facility] Comment on above: Performed By: #### H H #### [facility] [address] [place] [address] Dr. Osmel Shelton RBC 3.79 106/ul Critically low 4.20-5.40 [facility] Comment on above: Performed By: #### H H #### [facility] [address] [place] [address] Dr. Osmel Shelton WBC 4.8 103/ul Normal 4.0-11.0 [facility] Comment on above: Performed By: #### H H #### [facility] [address] [place] [address] Dr. Osmel Shelton MAGNESIUMon 08-03-2022 Magnesium [Mass/Vol] 1.9 mg/dL Normal 1.8-2.4 [facility] Comment on above: Performed By: #### P HOS, MG, CMP, URIC #### [facility] [address] [place] [address] Dr. Osmel Shelton PHOSPHORUSon 08-03-2022 Phosphate [Mass/Vol] 4.4 mg/dL Normal 2.6-4.7 [facility] Comment on above: Performed By: #### P HOS, MG, CMP, URIC #### [facility] [address] [place] [address] Dr. Osmel Shelton PROF 14(COMP METB)on 023 Albumin [Mass/Vol] 3.6 g/dL Normal 3.4-5.0 [facility] Comment on above: Performed By: #### P HOS, MG, CMP, URIC ####[facility] [address] [address]Dr. Osmel Shelton Albumin/Globulin [Mass ratio] 0.9 {ratio} Normal [facility] Comment on above: Performed By: #### P HOS, MG, CMP, URIC ####[facility] [address] [address]Dr. Osmel Shelton ALP [Catalytic activity/Vol] 136 U/L Critically high 46-116 [facility] Comment on above: Performed By: #### P HOS, MG, CMP, URIC ####[facility] [address] [place], [place] [address]Dr. Osmel Shelton ALT [Catalytic activity/Vol] 29 U/L Normal 14-59 [facility] Comment on above: Performed By: #### P HOS, MG, CMP, URIC ####[facility] [address] [place], [place] [address]Dr. Osmel Shelton Anion gap [Moles/Vol] 13.5 mmol/L Normal [facility] Comment on above: Performed By: #### P HOS, MG, CMP, URIC ####[facility] [address] [place], [place] [address]Dr. Osmel Shelton AST [Catalytic activity/Vol] 27 U/L Normal 15-37 [facility] Comment on above: Performed By: #### P HOS, MG, CMP, URIC ####[facility] [address] [place], [place] [address]Dr. Osmel Shelton Bilirubin [Mass/Vol] 0.2 mg/dL Normal 0.2-1.0 [facility] Comment on above: Performed By: #### P HOS, MG, CMP, URIC ####[facility] [address] [place], [place] [address]Dr. Osmel Shelton Calcium [Mass/Vol] 9.0 mg/dL Normal 8.5-10.1 [facility] Comment on above: Performed By: #### P HOS, MG, CMP, URIC ####[facility] [address] [address]Dr. Moiramarcia Shelton Chloride [Moles/Vol] 100 mmol/L Normal 98-107 [facility] Comment on above: Performed By: #### P HOS, MG, CMP, URIC ####[facility] [address] [address]Dr. Osmel Shelton CO2 [Moles/Vol] 25.7 mmol/L Normal 21.0-32.0 [facility] Comment on above: Performed By: #### P HOS, MG, CMP, URIC ####[facility] [address] [address]Dr. Osmel Shelton Creatinine [Mass/Vol] 1.40 mg/dL Critically high 0.55-1.02 [facility] Comment on above: Performed By: #### P HOS, MG, CMP, URIC ####[facility] [address] [address]Dr. Osmel Shelton EGFR-AF [place]IZ[place] 45 mL/min/1.73m2 Critically low >=60 [facility] Comment on above: Performed By: #### P HOS, MG, CMP, URIC ####[facility] [address] [place], [place] [address]Dr. Osmel Shelton EGFR-NON AF [place]IZ[place] 37 mL/min/1.73m2 Critically low >=60 [facility] Comment on above: Performed By: #### P HOS, MG, CMP, URIC ####[facility] [address] [place], [place] [address]Dr. Osmel Shelton Globulin (S) [Mass/Vol] 4.2 g/dL Normal [facility] Comment on above: Performed By: #### P HOS, MG, CMP, URIC ####[facility] [address] [address]Dr. Osmel Shelton Glucose [Mass/Vol] 101 mg/dL Normal 74-106 [facility] Comment on above: Performed By: #### P HOS, MG, CMP, URIC ####[facility] [address] [address]Dr. Osmel Shelton Potassium [Moles/Vol] 4.2 mmol/L Normal 3.5-5.1 [facility] Comment on above: Performed By: #### P HOS, MG, CMP, URIC ####[facility] [address] [address]Dr. Osmel Shelton Protein [Mass/Vol] 7.8 g/dL Normal 6.4-8.2 [facility] Comment on above: Performed By: #### P HOS, MG, CMP, URIC ####[facility] [address] [address]Dr. Osmel Shelton Sodium [Moles/Vol] 135 mmol/L Critically low 136-145 [facility] Comment on above: Performed By: #### P HOS, MG, CMP, URIC ####[facility] [address] [address]Dr. Osmel Shelton Urea nitrogen [Mass/Vol] 23.0 mg/dL Critically high 7.0-18.0 [facility] Comment on above: Performed By: #### P HOS, MG, CMP, URIC ####[facility] [address] [address]DrLissett Shelton Urea nitrogen/Creatinine [Mass ratio] 16.4 mg/mg Normal [facility] Comment on above: Performed By: #### P HOS, MG, CMP, URIC ####[facility] [address] [address]DrLissett Shelton UA RANDOMon 08-03-2022 Bilirubin Ql (U) Negative Normal NEGATIVE [facility] Comment on above: Performed By: #### U A #### [facility] [address] [place] [address] Dr. Osmel Shelton Clarity (U) CLEAR Normal CLEAR [facility] Comment on above: Performed By: #### U A #### [facility] [address] [place] [address] Dr. Osmel Shelton Color (U) LT. YELLOW Normal YELLOW [facility] Comment on above: Performed By: #### U A #### [facility] [address] [address] [address] Osmel Shelton Glucose Ql (U) Negative Normal NEGATIVE [facility] Comment on above: Performed By: #### U A #### [facility] [address] [place] [address] Dr. Osmel Shelton Hemoglobin Ql (U) Negative Normal NEGATIVE [facility] Comment on above: Performed By: #### U A #### [facility] [address] [place] [address] Dr. Osmel Shelton Ketones Ql (U) Negative Normal NEGATIVE [facility] Comment on above: Performed By: #### U A #### [facility] [address] [place] [address] Dr. Osmel Shelton LEUKOCYTES Negative Normal NEGATIVE [facility] Comment on above: Performed By: #### U A #### [facility] [address] [place] [address] Dr. Osmel Shelton Nitrite Ql (U) Negative Normal NEGATIVE [facility] Comment on above: Performed By: #### U A #### [facility] [address] [place] [address] Dr. Osmel Shelton pH (U) 5.5 [pH] Normal 5-9 [facility] Comment on above: Performed By: #### U A #### [facility] [address] [place] [address] Dr. Osmel Shelton SPEC GRAVITY <=1.005 Abnormal 1.005-<=1.02 5 [facility] Comment on above: Performed By: #### U A #### [facility] [address] [place] [address] Dr. Osmel Shelton UA PROTEIN Negative Normal NEGATIVE/ TRACE [facility] Comment on above: Performed By: #### U A #### [facility] [address] [place] [address] Dr. Osmel Shelton Urobilinogen Qn (U) 0.2 {Chuy'U}/dL Normal 0.2 - 1. 0 [facility] Comment on above: Performed By: #### U A #### [facility] [address] [place] [address] Dr. Osmel Shelton URIC ACID SERUMon 08-03-2022 Urate [Mass/Vol] 8.4 mg/dL Critically high 2.6-6.0 [facility] Comment on above: Performed By: #### P HOS, MG, CMP, URIC ####[facility] [address] [id number]. Osmel Shelton URINE T PROTEIN CREAT RATIOo n 08-03-2022 Protein (U) [Mass/Vol] 4.6 mg/dL Normal <=12.0 [facility] Comment on above: Performed By: #### U RTPCR #### [facility] [address] [address] [address] Osmel Shelton UR PROT CREAT RAT 0.09 Normal [facility] Comment on above: Performed By: #### U RTPCR #### [facility] [address] [place] [address] Dr. Osmel Shelton URINE CREAT 50.21 mg/dL Normal 20.00-300.00 [facility] Comment on above: Performed By: #### U RTPCR #### [facility] [address] [address] [address] Osmel Shelton VITAMIN D 25 OHon 08-03-2022 VIT D 25-OH 20.9 ng/mL Normal [facility] Comment on above: Performed By: #### V ITAD ####[facility] [address] [address]Dr. Osmel Shelton VIT D RANGES SEE BELOW Normal [facility] Comment on above: Result Comment: <20 ng/mL Vit D deficient 20 - <30 ng/mL Vit D insufficient 30 - 100 ng/mL Vit D sufficient >100 ng/mL Potential Toxicity Performed By: #### V ITAD ####[facility] [address] [address]Dr. Osmel Shelton CBC AUTO DIFFon 07-09-2022 BASO # 0.0 103/ul Normal 0.0-0.1 [facility] Comment on above: Performed By: #### C BC #### [facility] [address] [address] [address] Osmel Shelton Basophils/100 WBC (Bld) 0.5 % Normal 0.2-2.0 [facility] Comment on above: Performed By: #### C BC #### [facility] [address] [place] [address] Dr. Osmel Shelton EO # 0.2 103/ul Normal 0.0-0.7 [facility] Comment on above: Performed By: #### C BC #### [facility] [address] [place] [address] Dr. Osmel Shelton Eosinophils/100 WBC (Bld) 2.9 % Normal 0.9-7.0 [facility] Comment on above: Performed By: #### C BC #### [facility] [address] [place] [address] Dr. Osmel Shelton Erythrocyte distribution width (RBC) [Ratio] 14.3 % Normal 11.0-15.0 [facility] Comment on above: Performed By: #### C BC #### [facility] [address] [place] [address] Dr. Osmel Shelton Hematocrit (Bld) [Volume fraction] 34.4 % Critically low 36.0-48.0 [facility] Comment on above: Performed By: #### C BC #### [facility] [address] [place] [address] Dr. Osmel Shelton Hemoglobin (Bld) [Mass/Vol] 11.4 g/dL Critically low 12.0-16.0 [facility] Comment on above: Performed By: #### C BC #### [facility] [address] [place] [address] Dr. Osmel Shelton IG # 0.02 10e3/ul Normal 0.00-0.03 [facility] Comment on above: Performed By: #### C BC #### [facility] [address] [place] [address] Dr. Osmel Shelton IG % 0.4 % Normal 0.0-0.5 [facility] Comment on above: Performed By: #### C BC #### [facility] [address] [place] [address] Dr. Osmel Shelton LYMPH # 1.3 103/ul Normal 1.2-3.8 [facility] Comment on above: Performed By: #### C BC #### [facility] [address] [place] [address] Dr. Osmel Shelton Lymphocytes/100 WBC (Bld) 23.0 % Normal 20.5-60.0 [facility] Comment on above: Performed By: #### C BC #### [facility] [address] [place] [address] Dr. Osmel Shelton MANUAL DIFF REQ NO Normal [facility] Comment on above: Performed By: #### C BC #### [facility] [address] [place] [address] Dr. Osmel Shelton MCH (RBC) [Entitic mass] 29.8 pg Normal 26.7-34.0 [facility] Comment on above: Performed By: #### C BC #### [facility] [address] [place] [address] Dr. Osmel Shelton MCHC (RBC) [Mass/Vol] 33.1 g/dL Normal 29.9-35.2 [facility] Comment on above: Performed By: #### C BC #### [facility] [address] [place] [address] Dr. Osmel Shelton MCV (RBC) [Entitic vol] 89.8 fL Normal 81.0-99.0 [facility] Comment on above: Performed By: #### C BC #### [facility] [address] [place] [address] Dr. Osmel Shelton MONO # 0.6 103/ul Normal 0.3-0.8 [facility] Comment on above: Performed By: #### C BC #### [facility] [address] [place] [address] Dr. Osmel Shelton Monocytes/100 WBC (Bld) 11.0 % Normal 1.7-12.0 [facility] Comment on above: Performed By: #### C BC #### [facility] [address] [place] [address] Dr. Osmel Shelton NEUT # 3.4 103/ul Normal 1.4-6.5 [facility] Comment on above: Performed By: #### C BC #### [facility] [address] [address] [address] Osmel Shelton Neutrophils/100 WBC (Bld) 62.2 % Normal 43.0-75.0 [facility] Comment on above: Performed By: #### C BC #### [facility] [address] [address] [address] Osmel Shelton Platelet mean volume (Bld) [Entitic vol] 9.4 fL Critically low 9.5-13.5 [facility] Comment on above: Performed By: #### C BC #### [facility] [address] [address] [address] Osmel Shelton PLT 327 103/ul Normal 150-450 [facility] Comment on above: Performed By: #### C BC #### [facility] [address] [address] [address] Osmel Shelton RBC 3.83 106/ul Critically low 4.20-5.40 [facility] Comment on above: Performed By: #### C BC #### [facility] [address] [address] [address] Osmel Shelton WBC 5.5 103/ul Normal 4.0-11.0 [facility] Comment on above: Performed By: #### C BC #### [facility] [address] [address] [address] Osmel Shelton PROF CHEM 8 (BAS METB)on Anion gap [Moles/Vol] 11.7 mmol/L Normal [facility] Comment on above: Performed By: #### B MP ####[facility] [address] [address]Dr. Osmel Shelton Calcium [Mass/Vol] 8.8 mg/dL Normal 8.5-10.1 [facility] Comment on above: Performed By: #### B MP ####[facility] [address] [address]Dr. Osmel Shelton Chloride [Moles/Vol] 99 mmol/L Normal 98-107 [facility] Comment on above: Performed By: #### B MP ####[facility] [address] [address]Dr. Osmel Shelton CO2 [Moles/Vol] 27.1 mmol/L Normal 21.0-32.0 [facility] Comment on above: Performed By: #### B MP ####[facility] [address] [place], [place] [address]Dr. Osmel Shelton Creatinine [Mass/Vol] 1.38 mg/dL Critically high 0.55-1.02 [facility] Comment on above: Performed By: #### B MP ####[facility] [address] [place], [place] [address]Dr. Osmel Shelton EGFR-AF [place]IZ[place] 46 mL/min/1.73m2 Critically low >=60 [facility] Comment on above: Performed By: #### B MP ####[facility] [address] [place], [place] [address]Dr. Osmel Shelton EGFR-NON AF CITIZ[place] 38 mL/min/1.73m2 Critically low >=60 [facility] Comment on above: Performed By: #### B MP ####[facility] [address] [place], [place] [address]Dr. Osmel Shelton Glucose [Mass/Vol] 105 mg/dL Normal 74-106 [facility] Comment on above: Performed By: #### B MP ####[facility] [address] [place], [place] [address]Dr. Osmel Shelton Potassium [Moles/Vol] 4.8 mmol/L Normal 3.5-5.1 [facility] Comment on above: Performed By: #### B MP ####[facility] [address] [place], [place] [address]Dr. Osmel Shelton Sodium [Moles/Vol] 133 mmol/L Critically low 136-145 [facility] Comment on above: Performed By: #### B MP ####[facility] [address] [place], [place] [address]Dr. Osmel Shelton Urea nitrogen [Mass/Vol] 19.0 mg/dL Critically high 7.0-18.0 [facility] Comment on above: Performed By: #### B MP ####[facility] [address] [place], [place] [address]Dq. Omsel Shelton Urea nitrogen/Creatinine [Mass ratio] 13.8 mg/mg Normal [facility] Comment on above: Performed By: #### B MP ####[facility] [address] [place], [place] [address]Sn. Osmel Shelton PULMONARY FUNCTION TESTon PULMONARY FUNCTION [...] O2 indicated. Clinical correlation required. Normal [facility] US KIDNEYSon 04-15-2022 US KIDNEYS [...] IMPRESSION: No acute abnormality Electronically authenticated by: ITMOTHY GUIDRY Date: 2022-04-15 16:21 Normal [facility] CT LUNG CANCER SCREENINGon 1 [...] TIMOTHY GUIDRY Date: 2022-01-19 14:40 Normal [facility] CBC AUTO DIFFon 01-05-2022 BASO # 0.1 103/ul Normal 0.0-0.1 [facility] Comment on above: Performed By: #### C BC #### [facility] [address] [place] [address] Dr. Osmel Shelton Basophils/100 WBC (Bld) 1.0 % Normal 0.2-2.0 [facility] Comment on above: Performed By: #### C BC #### [facility] [address] [place] [address] Dr. Osmel Shelton EO # 0.2 103/ul Normal 0.0-0.7 [facility] Comment on above: Performed By: #### C BC #### [facility] [address] [place] [address] Dr. Osmel Shelton Eosinophils/100 WBC (Bld) 3.6 % Normal 0.9-7.0 [facility] Comment on above: Performed By: #### C BC #### [facility] [address] [place] [address] Dr. Osmel Shelton Erythrocyte distribution width (RBC) [Ratio] 14.1 % Normal 11.0-15.0 [facility] Comment on above: Performed By: #### C BC #### [facility] [address] [place] [address] Dr. Osmel Shelton Hematocrit (Bld) [Volume fraction] 36.5 % Normal 36.0-48.0 [facility] Comment on above: Performed By: #### C BC #### [facility] [address] [place] [address] Dr. Osmel Shelton Hemoglobin (Bld) [Mass/Vol] 11.8 g/dL Critically low 12.0-16.0 [facility] Comment on above: Performed By: #### C BC #### [facility] [address] [place] [address] Dr. Osmel Shelton IG # 0.02 10e3/ul Normal 0.00-0.03 [facility] Comment on above: Performed By: #### C BC #### [facility] [facility] [address] [place] [address] Dr. Osmel Shelton IG % 0.3 % Normal 0.0-0.5 [facility] Comment on above: Performed By: #### C BC #### [facility] [address] [place] [address] Dr. Osmel Shelton LYMPH # 1.3 103/ul Normal 1.2-3.8 [facility] Comment on above: Performed By: #### C BC #### [facility] [address] [place] [address] Dr. Osmel Shelton Lymphocytes/100 WBC (Bld) 21.4 % Normal 20.5-60.0 [facility] Comment on above: Performed By: #### C BC #### [facility] [address] [place] [address] Dr. Osmel Shelton MANUAL DIFF REQ NO Normal [facility] Comment on above: Performed By: #### C BC #### [facility] [address] [address] [address] Osmel Shelton MCH (RBC) [Entitic mass] 29.3 pg Normal 26.7-34.0 [facility] Comment on above: Performed By: #### C BC #### [facility] [address] [address] [address] Osmel Shelton MCHC (RBC) [Mass/Vol] 32.3 g/dL Normal 29.9-35.2 [facility] Comment on above: Performed By: #### C BC #### [facility] [address] [place] [address] Dr. Osmel Shelton MCV (RBC) [Entitic vol] 90.6 fL Normal 81.0-99.0 [facility] Comment on above: Performed By: #### C BC #### [facility] [address] [place] [address] Dr. Osmel Shelton MONO # 0.7 103/ul Normal 0.3-0.8 [facility] Comment on above: Performed By: #### C BC #### [facility] [address] [place] [address] Dr. Osmel Shelton Monocytes/100 WBC (Bld) 11.2 % Normal 1.7-12.0 [facility] Comment on above: Performed By: #### C BC #### [facility] [address] [place] [address] Dr. Osmel Shelton NEUT # 3.7 103/ul Normal 1.4-6.5 [facility] Comment on above: Performed By: #### C BC #### [facility] [address] [place] [address] Dr. Osmel Shelton Neutrophils/100 WBC (Bld) 62.5 % Normal 43.0-75.0 [facility] Comment on above: Performed By: #### C BC #### [facility] [address] [place] [address] Dr. Osmel Shelton Platelet mean volume (Bld) [Entitic vol] 9.4 fL Critically low 9.5-13.5 [facility] Comment on above: Performed By: #### C BC #### [facility] [address] [address] [address] Osmel Shelton PLT 364 103/ul Normal 150-450 [facility] Comment on above: Performed By: #### C BC #### [facility] [address] [address] [address] Osmel Shelton RBC 4.03 106/ul Critically low 4.20-5.40 [facility] Comment on above: Performed By: #### C BC #### [facility] [address] [address] [address] Osmel Shelton WBC 5.9 103/ul Normal 4.0-11.0 [facility] Comment on above: Performed By: #### C BC #### [facility] [address] [place] [address] Dr. Osmel Shelton LIPID PROFILEon 01-05-2022 CHOL-HDL RATIO NORM SEE BELOW Normal [facility] Comment on above: Result Comment: 3.3 - 4.4 LOW RISK 4.4 - 7.1 AVERAGE RISK 7.1 - 11.0 MODERATE RISK >11.0 HIGH RISK Performed By: #### C MP, LIPID #### [facility] [address] [place] [address] Dr. Osmel Shelton Cholesterol [Mass/Vol] 149 mg/dL Normal <=200 [facility] Comment on above: Performed By: #### C MP, LIPID #### [facility] [address] [place] [address] Dr. Osmel Shelton Cholesterol in HDL [Mass/Vol] 75 mg/dL Critically high 40-60 [facility] Comment on above: Performed By: #### C MP, LIPID #### [facility] [address] [place] [address] Dr. Osmel Shelton Cholesterol in LDL [Mass/Vol] 60.4 mg/dL Normal [facility] Comment on above: Performed By: #### C MP, LIPID #### [facility] [address] [place] [address] Dr. Osmel Shelton Cholesterol.total/Chol esterol in HDL [Mass ratio] 2.0 {ratio} Normal [facility] Comment on above: Performed By: #### C MP, LIPID #### [facility] [address] [address] [address] Osmel Shelton HDL NORMAL > or = 60 mg/dl - LO W CARDIOVASCULAR RISK <40 mg/dl - HIGH CARDIOVASCULAR RISK Normal [facility] Comment on above: Performed By: #### C MP, LIPID #### [facility] [address] [address] [address] Osmel Shelton LDL CALC NORMAL SEE BELOW Normal [facility] Comment on above: Result Comment: <100 mg/dl OPTIMAL 100 - 129 mg/dl NEAR OR ABOVE OPTIMAL 130 - 159 mg/dl BORDERLINE HIGH 160 - 189 mg/dl HIGH >190 mg/dl VERY HIGH Performed By: #### C MP, LIPID #### [facility] [address] [address] [address] Osmel Shelton Triglyceride [Mass/Vol] 68 mg/dL Normal <=150 [facility] Comment on above: Performed By: #### C MP, LIPID #### [facility] [address] [address] [address] Osmel Shelton VLDL CALC 13.6 mg/dL Normal [facility] Comment on above: Performed By: #### C MP, LIPID #### [facility] [address] [address] [address] Osmel Shelton PROF 14(COMP METB)on 022 Albumin [Mass/Vol] 3.6 g/dL Normal 3.4-5.0 [facility] Comment on above: Performed By: #### C MP, LIPID #### [facility] [address] [address] [address] Osmel Shelton Albumin/Globulin [Mass ratio] 0.9 {ratio} Normal [facility] Comment on above: Performed By: #### C MP, LIPID #### [facility] [address] [address] [address] Osmel Shelton ALP [Catalytic activity/Vol] 152 U/L Critically high 46-116 [facility] Comment on above: Performed By: #### C MP, LIPID #### [facility] [address] [address] [address] Osmel Shelton ALT [Catalytic activity/Vol] 29 U/L Normal 14-59 [facility] Comment on above: Performed By: #### C MP, LIPID #### [facility] [address] [address] [address] Osmel Shelton Anion gap [Moles/Vol] 11.1 mmol/L Normal [facility] Comment on above: Performed By: #### C MP, LIPID #### [facility] [address] [address] [address] Osmel Shelton AST [Catalytic activity/Vol] 23 U/L Normal 15-37 [facility] Comment on above: Performed By: #### C MP, LIPID #### [facility] [address] [address] [address] Osmel Shelton Bilirubin [Mass/Vol] 0.3 mg/dL Normal 0.2-1.0 [facility] Comment on above: Performed By: #### C MP, LIPID #### [facility] [address] [address] [address] Osmel Shelton Calcium [Mass/Vol] 8.9 mg/dL Normal 8.5-10.1 [facility] Comment on above: Performed By: #### C MP, LIPID #### [facility] [address] [address] [address] Osmel Shelton Chloride [Moles/Vol] 96 mmol/L Critically low 98-107 [facility] Comment on above: Performed By: #### C MP, LIPID #### [facility] [address] [address] [address] Osmel Shelton CO2 [Moles/Vol] 28.2 mmol/L Normal 21.0-32.0 [facility] Comment on above: Performed By: #### C MP, LIPID #### [facility] [address] [address] [address] Osmel Shelton Creatinine [Mass/Vol] 1.46 mg/dL Critically high 0.55-1.02 [facility] Comment on above: Performed By: #### C MP, LIPID #### [facility] [address] [address] [address] Osmel Shelton EGFR-AF [place]IZ[place] 43 mL/min/1.73m2 Critically low >=60 [facility] Comment on above: Performed By: #### C MP, LIPID #### [facility] [address] [address] [address] Osmel Shelton EGFR-NON AF CITIZEN OF [place] 36 mL/min/1.73m2 Critically low >=60 [facility] Comment on above: Performed By: #### C MP, LIPID #### [facility] [address] [address] [address] Osmel Shelton Globulin (S) [Mass/Vol] 4.2 g/dL Normal [facility] Comment on above: Performed By: #### C MP, LIPID #### [facility] [address] [address] [address] Osmel Shelton Glucose [Mass/Vol] 95 mg/dL Normal 74-106 [facility] Comment on above: Performed By: #### C MP, LIPID #### [facility] [address] [address] [address] Osmel Shelton Potassium [Moles/Vol] 5.3 mmol/L Critically high 3.5-5.1 [facility] Comment on above: Performed By: #### C MP, LIPID #### [facility] [address] [address] [address] Osmel Shelton Protein [Mass/Vol] 7.8 g/dL Normal 6.4-8.2 [facility] Comment on above: Performed By: #### C MP, LIPID #### [facility] [address] [address] [address] Osmel Shelton Sodium [Moles/Vol] 130 mmol/L Critically low 136-145 [facility] Comment on above: Performed By: #### C MP, LIPID #### [facility] [address] [address] [address] Osmel Shelton Urea nitrogen [Mass/Vol] 22.0 mg/dL Critically high 7.0-18.0 [facility] Comment on above: Performed By: #### C MP, LIPID #### [facility] [address] [address] [address] Osmel Shelton Urea nitrogen/Creatinine [Mass ratio] 15.1 mg/mg Normal [facility] Comment on above: Performed By: #### C MP, LIPID #### [facility] [id number] Osmel Shelton Vital Signs Date Time Vital Sign Value Performing Clinician Facility 09-06-2024 15:24-0400 Body mass index (BMI) [Ratio] 35.46 kg/m2 Nolviaxochilt Jimenez [employer] Work Phone: [facility] 09-06-2024 15:24-0400 Body temperature 98.6 [degF] Nolviaxochilt Jimenez [employer] Work Phone: [facility] 09-06-2024 15:24-0400 Body weight 90.81 kg Nolvia Tony [employer] Work Phone: [facility] 09-06-2024 15:24-0400 Diastolic blood pressure 98 mm[Hg] Nolvia Tony [employer] Work Phone: [facility] 09-06-2024 15:24-0400 Heart rate 98 /min Nolvia Tony [employer] Work Phone: [facility] 09-06-2024 15:24-0400 Respiratory rate 20 /min Nolvia Tony [employer] Work Phone: [facility] 09-06-2024 15:24-0400 SaO2% (BldA) [Mass fraction] 95 % Nolvia Tony [employer] Work Phone: [facility] 09-06-2024 15:24-0400 Systolic blood pressure 128 mm[Hg] Nolvia Tony [employer] Work Phone: [facility] 07-25-2024 13:37-0400 Body height 160.02 cm [facility] 07-25-2024 13:37-0400 Body mass index (BMI) [Ratio] 35.1 kg/m2 [facility] 07-25-2024 13:37-0400 Body temperature 97.8 [degF] [facility] 07-25-2024 13:37-0400 Body weight 89.86 kg [facility] 07-25-2024 13:37-0400 Diastolic blood pressure 56 mm[Hg] [facility] 07-25-2024 13:37-0400 Heart rate 93 /min [facility] 07-25-2024 13:37-0400 Respiratory rate 20 /min [facility] 07-25-2024 13:37-0400 SaO2% (BldA) [Mass fraction] 93 % [facility] 07-25-2024 13:37-0400 Systolic blood pressure 108 mm[Hg] [facility] 06-08-2024 14:43-0400 Body mass index (BMI) [Ratio] 35.39 kg/m2 Nolvia Jimenez [employer] Work Phone: [facility] 06-08-2024 14:43-0400 Body temperature 97.81 [degF] Nolvia Tony [employer] Work Phone: [facility] 06-08-2024 14:43-0400 Body weight 90.63 kg Nolvia Tony [employer] Work Phone: [facility] 06-08-2024 14:43-0400 Diastolic blood pressure 80 mm[Hg] Nolvia Tony [employer] Work Phone: [facility] 06-08-2024 14:43-0400 Heart rate 72 /min Nolvia Mihaiz [employer] Work Phone: [facility] 06-08-2024 14:43-0400 Respiratory rate 19 /min Nolvia Mihaiz [employer] Work Phone: [facility] 06-08-2024 14:43-0400 SaO2% (BldA) [Mass fraction] 98 % Nolvia Mihaiz [employer] Work Phone: [facility] 06-08-2024 14:43-0400 Systolic blood pressure 144 mm[Hg] Nolvia Jimenez [employer] Work Phone: [facility] 04-26-2024 15:02-0500 Body height 160 cm Shanda Cheng [employer] Work Phone: [facility] 04-26-2024 15:02-0500 Body mass index (BMI) [Ratio] 35.96 kg/m2 Shanda Cheng [employer] Work Phone: [facility] 04-26-2024 15:02-0500 Body temperature 97.2 [degF] Shanda Cheng [employer] Work Phone: [facility] 04-26-2024 15:02-0500 Body weight 92.08 kg Shanda Cheng [employer] Work Phone: [facility] 04-26-2024 15:02-0500 Diastolic blood pressure 84 mm[Hg] Shanda Cheng [employer] Work Phone: [facility] 04-26-2024 15:02-0500 Heart rate 72 /min Shanda Cheng [employer] Work Phone: [facility] 04-26-2024 15:02-0500 Respiratory rate 18 /min Shanda Cheng [employer] Work Phone: [facility] 04-26-2024 15:02-0500 SaO2% (BldA) [Mass fraction] 94 % Shanda Cheng [employer] Work Phone: [facility] 04-26-2024 15:02-0500 Systolic blood pressure 180 mm[Hg] Shanda Cheng [employer] Work Phone: [facility] 04-18-2024 13:58-0500 Body height 160 cm Shanda Cheng [employer] Work Phone: [facility] 04-18-2024 13:58-0500 Body mass index (BMI) [Ratio] 35.8 kg/m2 Shanda Cheng [employer] Work Phone: [facility] 04-18-2024 13:58-0500 Body temperature 96.21 [degF] Shanda Cheng [employer] Work Phone: [facility] 04-18-2024 13:58-0500 Body weight 91.67 kg Shanda Cheng [employer] Work Phone: [facility] 04-18-2024 13:58-0500 Diastolic blood pressure 82 mm[Hg] Shanda Cheng [employer] Work Phone: [facility] 04-18-2024 13:58-0500 Heart rate 96 /min Shanda Cheng [employer] Work Phone: [facility] 04-18-2024 13:58-0500 Respiratory rate 18 /min Shanda Cheng [employer] Work Phone: [facility] 04-18-2024 13:58-0500 SaO2% (BldA) [Mass fraction] 97 % Shanda Cheng [employer] Work Phone: [facility] 04-18-2024 13:58-0500 Systolic blood pressure 138 mm[Hg] Shanda Cheng [employer] Work Phone: [facility] 01-17-2024 13:25-0400 Body mass index (BMI) [Ratio] 34.76 kg/m2 Shanda Cheng [employer] Work Phone: [facility] 01-17-2024 13:25-0400 Body temperature 97.81 [degF] Shanda Cheng [employer] Work Phone: [facility] 01-17-2024 13:25-0400 Body weight 89 kg Shanda Cheng [employer] Work Phone: [facility] 01-17-2024 13:25-0400 Diastolic blood pressure 72 mm[Hg] Shanda Cheng [employer] Work Phone: [facility] 01-17-2024 13:25-0400 Heart rate 84 /min Shanda Estebanpatrick [employer] Work Phone: [facility] 01-17-2024 13:25-0400 SaO2% (BldA) [Mass fraction] 98 % Shanda Garciazpatrick [employer] Work Phone: [facility] 01-17-2024 13:25-0400 Systolic blood pressure 130 mm[Hg] Shanda Garciazpatrick [employer] Work Phone: [facility] 12-20-2023 15:00-0400 Diastolic blood pressure 75 mm[Hg] MD Jackelyn Guillory Work Phone: [facility] 12-20-2023 15:00-0400 Systolic blood pressure 136 mm[Hg] MD Jackelyn Guillory Work Phone: [facility] 12-17-2023 14:48-0400 Heart rate 81 /min MD Jackelyn Guillory Work Phone: [facility] 11-16-2023 15:26-0400 Body height 154.94 cm [facility] 11-16-2023 15:26-0400 Body mass index (BMI) [Ratio] 38.4 kg/m2 [facility] 11-16-2023 15:26-0400 Body temperature 96.1 [degF] [facility] 11-16-2023 15:26-0400 Body weight 92.24 kg [facility] 11-16-2023 15:26-0400 Diastolic blood pressure 79 mm[Hg] [facility] 11-16-2023 15:26-0400 Respiratory rate 20 /min [facility] 11-16-2023 15:26-0400 Systolic blood pressure 171 mm[Hg] [facility] 03-09-2023 11:20-0500 Body height 154.94 cm Jackelyn Guillory Other [employer] Other 03-09-2023 11:20-0500 Body mass index (BMI) [Ratio] 38.62 kg/m2 Aziz Bakhous Other [employer] Other 03-09-2023 11:20-0500 Body temperature 96.7 [degF] Aziz Bakhous Other [employer] Other 03-09-2023 11:20-0500 Body weight 92.72 kg Aziz Bakhous Other [employer] Other 03-09-2023 11:20-0500 Diastolic blood pressure 60 mm[Hg] Aziz Bakhous Other [employer] Other 03-09-2023 11:20-0500 Respiratory rate 18 /min Aziz Bakhous Other [employer] Other 03-09-2023 11:20-0500 SaO2% (BldA) [Mass fraction] 97 % Aziz Bakhous Other [employer] Other 03-09-2023 11:20-0500 Systolic blood pressure 100 mm[Hg] Aziz Bakhous Other [employer] Other 04-07-2022 15:20-0500 Body height 154.94 cm Aziz Bakhous Other [employer] Other 04-07-2022 15:20-0500 Body mass index (BMI) [Ratio] 39.67 kg/m2 Aziz Bakhous Other [employer] Other 04-07-2022 15:20-0500 Body temperature 97.7 [degF] Aziz Bakhous Other [employer] Other 04-07-2022 15:20-0500 Body weight 95.26 kg Jackelyn Wagners Other [employer] Other 04-07-2022 15:20-0500 Diastolic blood pressure 90 mm[Hg] Jackelyn Wagners Other [employer] Other 04-07-2022 15:20-0500 Respiratory rate 18 /min Jackelyn Wagners Other [employer] Other 04-07-2022 15:20-0500 SaO2% (BldA) [Mass fraction] 97 % Jackelyn Guillory Other [employer] Other 04-07-2022 15:20-0500 Systolic blood pressure 140 mm[Hg] Jackelyn Wagners Other [employer] Other Encounters Encounter Date Encounter Type Care Provider Facility Start: 10-03-2024 End: 10-04-2024 [facility] Result Encounter Generic External Data Provider [facility] External Department Unsolicited Start: 10-03-2024 End: 10-04-2024 [facility] Result Encounter Generic External Data Provider [facility] External Department Unsolicited Start: 10-02-2024 End: 10-04-2024 [facility] Result Encounter Generic External Data Provider [facility] External Department Unsolicited Start: 10-02-2024 End: 10-04-2024 [facility] Result Encounter Generic External Data Provider [facility] External Department Unsolicited Start: 09-22-2024 End: 09-22-2024 ambulatory [facility] Start: 09-06-2024 End: 09-06-2024 Transitional care manage srvc 7 day discharge Nolvia Jimenez [employer] Work Phone: [facility] Comment on above: Pneumonia of right l ower lobe due to infectious organism (Primary Dx); Acute hypoxic respiratory failure (CMS/HCC); Coronary artery disease involving hoh coronary artery of hoh heart without angina pectoris (CMS/HCC); Essential (primary) hypertension ; Chronic kidney disease, stage 3b (HCC) (CMS/HCC); Morbid (severe) obesity due to excess calories ([facility]/HCC) Start: 09-06-2024 End: 09-06-2024 ambulatory NOLVIA JIMENEZ Not Available Start: 09-04-2024 Evaluation and management of inpatient [facility] Start: 09-03-2024 Evaluation and management of inpatient [facility] Start: 09-03-2024 End: 09-05-2024 Evaluation and management of inpatient GRISELDA HARVEY [facility] Start: 09-03-2024 End: 09-05-2024 Clinisync Result Encounter Generic External Data Provider [facility] External Department Unsolicited Start: 09-03-2024 End: 09-05-2024 [facility] Result Encounter Generic External Data Provider [facility] External Department Unsolicited Start: 08-02-2024 End: 08-02-2024 Clinisync Result Encounter Nolvia Jimenez [employer] Work Phone: [facility] External Department Unsolicited Start: 08-02-2024 End: 08-02-2024 [facility] Result Encounter Nolvia Jimenez [employer] Work Phone: [facility] External Department Unsolicited Start: 08-01-2024 End: 08-01-2024 ambulatory [facility] Start: 07-27-2024 End: 07-28-2024 External Result Encounter Nolvia Jimenez [employer] Work Phone: [facility] External Department Unsolicited Start: 07-27-2024 End: 07-28-2024 External Result Encounter Nolvia Jimenez [employer] Work Phone: [facility] External Department Unsolicited Start: 07-26-2024 End: 07-26-2024 Clinisync Result Encounter Nolvia Jimenez [employer] Work Phone: [facility] External [facility] Unsolicited Start: 07-26-2024 End: 07-26-2024 Clinisync Result Encounter Nolvia Jimenez [employer] Work Phone: [facility] External Department Unsolicited Start: 07-26-2024 End: 07-26-2024 Departed Referred Nolvia Jimenez Work Phone: [facility] Start: 07-26-2024 End: 07-26-2024 Orders Only Nolvia Jimenez [employer] Work Phone: [facility] Comment on above: Leukocytosis, unspec ified type (Primary Dx) Leukocytosis, unspec ified type (Primary Dx); CRP elevated Start: 07-25-2024 End: 07-25-2024 Clinisync Result Encounter Generic External Data Provider [facility] External Department Unsolicited Start: 07-25-2024 End: 07-25-2024 Clinisync Result Encounter Generic External Data Provider [facility] External Department Unsolicited Start: 07-25-2024 End: 07-25-2024 ambulatory [facility] Work Phone: Start: 07-25-2024 End: 07-25-2024 Patient encounter procedure [facility] Roger Work Phone: Start: 07-17-2024 End: 07-17-2024 Clinisync Result Encounter Generic External Data Provider [facility] External Department Unsolicited Start: 07-17-2024 End: 07-17-2024 Clinis[facility] Result Encounter Generic External Data Provider [facility] External Department Unsolicited Start: 07-17-2024 Non-patient / [facility]-visit [facility] Work Phone: Start: 07-03-2024 End: 07-03-2024 ambulatory [facility] Start: 06-26-2024 End: 06-26-2024 Clinisync Result Encounter Generic External Data Provider [facility] External Department Unsolicited Start: 06-26-2024 End: 06-26-2024 Clinisync Result Encounter Generic External Data Provider [facility] External Department Unsolicited Start: 06-15-2024 End: 06-15-2024 ambulatory [facility] Start: 06-08-2024 End: 06-08-2024 Office outpatient visit 25 minutes Nolvia Jimenez [employer] Work Phone: [facility] Comment on above: Essential (primary) hypertension (CMS/HCC) (Primary Dx); Morbid (severe) obesity due to excess calories (CMS/HCC); Body mass index (BMI) 35.0-35.9, adult; Chronic obstructive pulmonary disease, unspecified (CMS/HCC); Chronic kidney disease, stage 3b (HCC) (CMS/HCC); Coronary artery disease involving hoh coronary artery of hoh heart without angina pectoris (CMS/HCC); Hypomagnesemia; Mixed hyperlipidemia (CMS/HCC); Chronic low back pain, unspecified back pain laterality, unspecified whether sciatica present Start: 06-08-2024 End: 06-08-2024 ambulatory NOLVIA JIMENEZ Not Available Start: 06-08-2024 End: 06-08-2024 Bamboo flowsheet Nolvia Jimenez [employer] Work Phone: [facility] Start: 06-08-2024 End: 06-08-2024 Bamboo flowsheet Nolvia Jimenez [employer] Work Phone: [facility] Start: 05-23-2024 End: 05-23-[address] [facility] Start: 05-02-2024 Non-patient / Non-visit [facility] Work Phone: Start: 04-26-2024 End: 04-26-2024 Transitional care manage srvc 7 day discharge Shanda Cheng [employer] Work Phone: [facility] Comment on above: Essential hypertensi on (CMS/HCC) (Primary Dx) Start: 04-26-2024 End: 04-26-2024 ambulatory SHANDA CHENG Not Available Start: 04-26-2024 End: 04-26-2024 Bamboo flowsheet Shanda Cheng [employer] Work Phone: [facility] Start: 04-26-2024 End: 04-26-2024 Bamboo flowsheet Shanda Cheng [employer] Work Phone: [facility] Start: 04-18-2024 End: 04-18-2024 Bamboo flowsheet Shanda Cheng [employer] Work Phone: [facility] Start: 04-18-2024 End: 04-18-2024 Bamboo flowsheet Shanda Cheng [employer] Work Phone: [facility] Start: 04-18-2024 End: 04-18-2024 Office outpatient visit 10 minutes Shanda Cheng [employer]GER Work Phone: [facility] Comment on above: Irregular heartbeat (Primary Dx) Start: 04-18-2024 End: 04-18-2024 ambulatory SHANDA CHENG Not Available Start: 04-03-2024 End: 04-03-2024 Refill Shanda Garciazpatrick [employer] G[employer]GER Work Phone: [facility] Comment on [...] Unsolicited Start: 01-17-2024 End: 01-17-2024 Bamboo flowsheet Shanda Cheng [employer] G[employer]GER Work Phone: [facility] Start: 01-17-2024 End: 01-17-2024 Bamboo flowsheet Shanda Cheng [employer] G[employer]GER Work Phone: [facility] Start: 01-17-2024 End: 01-18-2024 Refill Trace Kelly MD Work Phone: [facility] Comment on above: 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) Start: 01-17-2024 End: 01-17-2024 Assay of hemosiderin, quant Shanda Cheng [employer] GAUGER Work Phone: [facility] Work Phone: Start: 01-17-2024 End: 01-17-2024 Patient encounter procedure Shanda Cheng [employer] GAUGER Work Phone: [facility] Comment on above: Routine general medi korin examination at health care facility (Primary Dx) Start: 01-04-2024 End: 01-04-[address] [facility] Start: 12-20-2023 End: 12-20-2023 Discharged Recurring MD Jackelyn Guillory Work Phone: [facility] Work Phone: Start: 12-20-2023 End: 12-20-2023 ambulatory MD Jackelyn Guillory Work Phone: [facility] Work Phone: Start: 11-23-2023 End: 11-23-2023 Clinisync Result Encounter Generic External Data Provider [facility] Unsolicited Start: 11-23-2023 End: 11-23-2023 Clinisync Result Encounter Generic External Data Provider [facility] External [facility] Unsolicited Start: 11-23-2023 Non-patient / Non-visit MD Rowan Guillory [facility] Phone[facility] Work Phone: Start: 11-16-2023 End: 11-16-2023 ambulatory [facility] Work Phone: Start: 11-16-2023 End: 11-16-2023 Patient encounter procedure [facility] Work Phone: Start: 11-08-2023 Non-patient / Non-visit [facility] [employer] Work Phone: Start: 10-12-2023 End: 10-12-[address] [facility] Start: 03-09-2023 End: 03-09-2023 ambulatory Aziz Bakhous Other [employer] Other Start: 03-09-2023 Office outpatient vi sit 25 minutes Aziz Bakhous [facility] Start: 08-03-2022 End: 08-04-2022 ambulatory AZIZ BAKHOUS Facility:[facility] Start: 07-15-2022 Encounter for other preprocedural examination DR ABBY WARD [facility] Start: 07-09-2022 End: 07-10-[address] ABBY WARD Facility:[facility] Start: 07-09-2022 End: 07-10-2022 Encounter for other preprocedural examination DR ABBY WARD Facility:[facility] Start: 07-09-2022 ambulatory LUIS SAMSA . Facility :[facility] Start: 05-20-2022 End: 05-21-2022 ambulatory ULIS SAMSA . Facility:[facility] Start: 04-27-2022 End: 07-08-2022 ambulatory LUIS SAMSA . Facility:[facility] Start: 04-15-2022 End: 04-16-2022 ambulatory AZIZ BAKHOUS Facility:[facility] Start: 04-07-2022 End: 04-07-2022 ambulatory Aziz Bakhous Other [employer] Other Start: 04-07-2022 Office outpatient ne w 30 minutes Aziz Bakhous [facility] Start: 01-23-2022 End: 01-24-2022 ambulatory LUIS SAMSA . Facility:[facility] Start: 01-19-2022 End: 01-20-2022 ambulatory LUIS SCHUMACHER . 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 Start: 10-03-2024 ITP Generic Ex ternal Data Provider Start: 10-03-2024 ALL BASIC METABOLIC PANEL Generic External Data Provider Start: 10-02-2024 ITP Generic Ex ternal Data Provider Start: 09-03-2024 BLOOD CULTURE 2 Generic External Data Provider Start: 09-03-2024 BLOOD CULTURE 1 Generic External Data Provider Start: 08-02-2024 ALL CBC WITH AUTO DIFF Nolvia Aichholz [employer] G[employer]GER Work Phone: Start: 07-27-2024 Culture bacterial quanttative colony count urine Nolvia Aichholz [employer] GAUGER Work Phone: Start: 07-26-2024 ALL CBC WITH AUTO DIFF Nolvia Aichholz [employer] G[employer]GER Work Phone: Start: 07-25-2024 ALL CBC WITH [...] 05/25 (Patient Refused) Start: 11-27-2024 Influenza vaccination [facility] Start: 10-18-2024 End: 10-18-2024 Patient encounter procedure 10/18/2024 2:20 PM EDT Office Visit [facility] [address] [place] [address] Nolvia Jimenez NP [address] [place] [address] [facility] Start: 09-05-2024 End: 09-05-2024 Patient encounter procedure [facility] Start: 08-03-2024 Influenza vaccination Influenza Vacc ine (#1) [facility] Comment on above: Postponed from 11/27 (Patient Refused) Start: 08-02-2024 End: 07-26-2025 C reactive protein [Mass/volume] in Serum or Plasma C-reactive protein Lab Routine CRP elevated Expected: 08/02/2024 (Approximate), Expires: 07/26/2025 [facility] Comment on above: Expected: 08/02/2024 (Approximate), Expires: 07/26/2025 Start: 08-02-2024 End: 07-26-2025 CBC W Auto Differential panel - Blood CBC and differential Lab Routine Leukocytosis, unspecified type Expected: 08/02/2024 (Approximate), Expires: 07/26/2025 [facility] Work Phone: Comment on above: Expected: 08/02/2024 (Approximate), Expires: 07/26/2025 Start: 07-27-2024 Bacteria identified in Urine by Culture [facility] Start: 07-27-2024 Urine culture [facility] Start: 07-26-2024 End: 07-26-2025 Bacteria identified in Urine by Culture Urine culture (clean catch) Microbiology Routine Leukocytosis, unspecified type Expected: 07/26/2024 (Approximate), Expires: 07/26/2025 [facility] Comment on above: Expected: 07/26/2024 (Approximate), Expires: 07/26/2025 Start: 07-26-2024 End: 07-26-2025 C reactive protein [Mass/volume] in Serum or Plasma C-reactive protein Lab Routine Leukocytosis, unspecified type Expected: 07/26/2024 (Approximate), Expires: 07/26/2025 [facility] Comment on above: Expected: 07/26/2024 (Approximate), Expires: 07/26/2025 Start: 07-26-2024 End: 07-26-2025 CBC W Auto Differential panel - Blood CBC and differential Lab Routine Leukocytosis, unspecified type Expected: 07/26/2024 (Approximate), Expires: 07/26/2025 [facility] Work Phone: Comment on above: Expected: 07/26/2024 (Approximate), Expires: 07/26/2025 Start: 07-26-2024 End: 07-26-2025 Comprehensive metabolic 2000 panel - Serum or Plasma Comprehensive metabolic panel Lab Routine Leukocytosis, unspecified type Expected: 07/26/2024 (Approximate), Expires: 07/26/2025 [facility] Comment on above: Expected: 07/26/2024 (Approximate), Expires: 07/26/2025 Start: 07-26-2024 End: 07-26-2025 Erythrocyte sedimentation rate Sedimentation rate, automated Lab Routine Leukocytosis, unspecified type Expected: 07/26/2024 (Approximate), Expires: 07/26/2025 [facility] Comment on above: Expected: 07/26/2024 (Approximate), Expires: 07/26/2025 Start: 07-26-2024 End: 07-26-2025 Peripheral blood smear Peripheral blood smear Pathology and Cytology Routine Leukocytosis, unspecified type Expected: 07/26/2024 (Approximate), Expires: 07/26/2025 [facility] Comment on above: Expected: 07/26/2024 (Approximate), Expires: 07/26/2025 Start: 07-26-2024 End: 07-26-2025 Urinalysis complete panel - Urine Urinalysis with reflex microscopic (clean catch) Lab Routine Leukocytosis, unspecified type Expected: 07/26/2024 (Approximate), Expires: 07/26/2025 [facility] Comment on above: Expected: 07/26/2024 (Approximate), Expires: 07/26/2025 Start: 06-08-2024 End: 06-08-2024 Patient encounter procedure 06/08/2024 2:40 PM EDT Office Visit [facility] [address] [place] [phone] Nolvia Jimenez NP [address] [place] [phone] Coronary artery disease involving hoh coronary artery of hoh heart without angina pectoris (CMS/HCC) (Primary Dx); Morbid (severe) obesity due to excess calories (CMS/HCC); Essential (primary) hypertension (CMS/HCC); Body mass index (BMI) 35.0-35.9, adult; Chronic obstructive pulmonary disease, unspecified (CMS/HCC); Chronic kidney disease, stage 3b (HCC) (CMS/HCC); Hypomagnesemia; Mixed hyperlipidemia (CMS/HCC) [facility] Comment on above: Coronary artery dise ase involving hoh coronary artery of hoh heart without angina pectoris (CMS/HCC) (Primary Dx); Morbid (severe) obesity due to excess calories (CMS/HCC); Essential (primary) hypertension (CMS/HCC); Body mass index (BMI) 35.0-35.9, adult; Chronic obstructive pulmonary disease, unspecified (CMS/HCC); Chronic kidney disease, stage 3b (HCC) (CMS/HCC); Hypomagnesemia; Mixed hyperlipidemia (CMS/HCC) Start: 06-08-2024 End: 06-08-2024 Patient encounter procedure 06/08/2024 1:30 PM EDT Office Visit [facility] [address] [place] [phone] Shanda Cheng NP [address] [place] [phone] [facility] Start: 04-26-2024 End: 04-26-2024 Patient encounter procedure 04/26/2024 3:30 PM EST Office Visit [facility] [address] [place] [phone] Shanda Cheng NP [address] [place] [phone] Arrived [facility] Comment on above: Arrived Start: 04-18-2024 End: 04-18-2024 Patient encounter procedure [facility] Comment on above: Arrived Start: 04-12-2024 Screening for malign ant neoplasm of colon Colorectal Cancer Screening [facility] Comment on above: Postponed from 05/25 (Patient Refused) Start: 03-13-2024 Influenza vaccination Influenza Vacc ine (#1) [facility] Comment on above: Postponed from 11/27 (Patient Refused) Start: 01-17-2024 End: 01-17-2024 Patient encounter procedure 01/17/2024 1:00 PM EDT Office Visit [facility] [address] [place] [phone] Shanda Cheng, [employer] GAUGER [address] [place] [address] [facility] Start: 01-15-2024 Medicare Annual Well ness (AWV) Medicare Annual Wellness (AWV) [facility] Start: 11-28-2023 Influenza vaccination Influenza Vacc ine (#1) [facility] Start: 1961 Pneumococcal Vaccine : 65+ Years (1 of 2 - PCV) Pneumococcal Vaccine: 65+ Years (1 of 2 - PCV) [facility] Start: 1955 Screening for malign ant neoplasm of colon [facility] Start: 1955 Screening for malign ant neoplasm of lung Lung Cancer Screening Shared Decision Making [facility] BLOOD CULTURE 1 BLOOD CULTURE 1 Lab Routine 09/03/2024 4:58 AM EDT [facility] BLOOD CULTURE 2 BLOOD CULTURE 2 Lab Routine 09/03/2024 5:52 AM EDT [facility] Renal function 1999 panel - Serum or Plasma [facility] Renal function 1999 panel - Serum or Plasma [facility] Payers Date Payer Category Payer Medicare [employer]M MEDICARE ADVANTAGE ANTH MEDICARE ADVANTAGE [id number] 2020-Present [address] [place] [address] [id number] 2020 Medicare (Managed Care) [employer] ALEX ADVANTAGE Member Subscriber Plan / Payer (Effective 2020-Present) Name: Chiara Eduardo Relation to Subscriber: Self Name: Chiara Eduardo Payer ID: Not on file Group ID: [id number] Type: Not on file Address: [address] [id number] 1961 Medicare [id number] 1959 Self-pay 1953 Unknown [id number] [id number]. 2.593 1953 Unknown [id number] [id number]. 2.593 1953 Unknown [id number] 2.16840.1.451144.3.579. 2.593 1953 Unknown [id number] .[id number]. 2.593 1953 Unknown [id number] 2.16840.1.901512.3.579. 2.593 1953 Unknown [id number] 2.16.840.1.230920.3.579. 2.593 1953 Unknown [id number] 2.16840.1.413425.3.579. 2.593 1953 Unknown [id number] 2.16840.1.475316.3.579. 2.593 1953 Unknown [id number] [id number]. 2.1259 1953 Unknown [id number] 2.16.840.1.598688.3.579. 2.9 1953 Unknown [id number] 2.16.840.1.883234.3.579. 2.9 1953 Unknown [id number] 2.16.840.1.400358.3.579. 2.1259 1953 Unknown [id number] 2.16.840.1.237190.3.579. 2.1259 Unknown [id number] 2.16.840.1.390828.3.579. 2.593 Unknown [id number] 2.16.840.1.258495.3.579. 2.531 Unknown [id number] [id number]. 2.531 Social History Date Type Detail Facility Unknown if ever smoked [facility] [employer] Other Start: 04-12-2023 End: 06-08-2024 Sex Assigned At [facility] [employer] Other Start: 11-16-2023 End: 04-18-2024 Tobacco smoking status [facility] Ex-smoker (finding) [facility] Start: 1955 Sex Assigned At Female [facility] Start: 03-29-1985 End: 03-29-2015 History of tobacco use Current smoker [facility] Start: 03-29-1985 End: 03-29-2015 History of tobacco use Cigarette Smoker [facility] Start: 04-12-2023 End: 06-08-2024 Cigarettes smoked current (pack per day) - Reported 1 [facility] Start: 04-12-2023 End: 04-18-2024 Tobacco use and exposure Smokeless tobacco non-user [facility] Start: 04-12-2023 End: 09-06-2024 Alcoholic beverage intake Lifetime non-drinker (finding) [facility] Do you feel stress - tense, [...] to any clubs or organizations such as jainism groups, unions, fraternal or athletic groups, or [...] Start: 07-25-2024 End: 07-28-2024 Sex Female (finding) [facility] Goals Date Patient Goal Desired Activity /State Clinical Notes 04-07-2022 to 09-22-2024 Nolvia Jimenez, NIXON - 09/06/2024 6:44 PM Juliano Jimenez, NIXON - 09/06/2024 6:44 PM Juliano Jimenez NP - 09/06/2024 6:43 PM Juliano Jimenez NP - 09/06/2024 6:43 PM EDTPatient Instructions Note Date & Type Note Facility 09-22-2024 Note SUBJECTIVE Reason for Visit: Chiara Eduardo is a 69 y.o. year old female patient being seen for follow-up hospital visit, NSTEMI. HPI: Chiara Eduardo is a 69 y.o. year old female with significant medical history coronary artery disease, prior stent placement, COPD, History of acute inferior wall CT, HT, HLP, CKD, obesity Recent hospital course [...] felt to be related to type II CT. Of note patient had cardiac cath in [...] Daily atorvastatin (LIPITOR) 80 mg, oral, Daily skwiodarhu-fsulvihx-uvkdvbhomc (Breztri Aerosphere) 160-9-4.8 mcg/actuation HFA aerosol inhaler [...] Rate 09/03/2024 90 Atrial Rate 09/03/2024 90 WI Interval 09/03/2024 (more content not included)... [facility] 09-22-2024 Note Patient is here toda y for a follow up. Patient states she is doing ok. Review of Systems Constitutional: Negative. [facility] 09-06-2024 History of Present illness Narrative Associated Problem(s): Morbid (severe) obesity due to [...] w nephrology Associated Problem(s): Essential (primary) hypertension Please check blood pressure daily and record DASH diet Limit caffeine Take medication as directed Contact office if chest pain, pressure, dizziness, shortness of breath, swelling legs Recommend slow position changes Current meds: arb, b shyam, nitrate Associated Problem(s): Coronary artery disease involving hoh coronary artery of hoh heart without angina pectoris (CMS/HCC) Reviewed cardiology notes from [facility] Did not feel elevated trop was related to CT Associated Problem(s): Pneumonia Finish atbs, cont fluids, oxygen Keep appt with pulmonology next week Associated Problem(s): Acute hypoxic respiratory failure (CMS/HCC) On oxygen at this time Breathing is better Fu w pulmonology next week Currently on 3L 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 Chiara Eduardo is a 69 y.o. 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 on 09/12 Back Joiner apt 09/22 3:20 Eye appt 09/19 Pt is still currently on the zithromax Lasix has been increase to daily pt is still having swelling to both feet Please note that pt prefers the metoprolol tartrate instead Pt is also on triple action womens probiotic Psylium fiber caps Breathing is better than prior to hospitalization, still w dyspnea, no fever, or chills SUBJECTIVE: MEDICATIONS: Current Outpatient Medications Medication Instructions albuterol HFA 90 mcg/act inhaler 2 puffs, Every 4 hours PRN aspirin (ADULT ASPIRIN REGIMEN) 81 mg, Daily atorvastatin (LIPITOR) 80 mg, Oral, Daily azithromycin (ZITHROMAX) 500 mg, Daily Nvtlbyg-Bbqljsuvdzu-Jkefjlyjly (Breztri Aerosphere) 160-9-4.8 MCG/ACT aerosol 160 mcg, Daily RT cefpodoxime (VANTIN) 200 mg, 2 times daily cholecalciferol (VITAMIN D-3) 25 mcg, Oral, Daily cyclobenzaprine (FLEXERIL) 5 mg, Oral, 3 times daily PRN dapagliflozin (FARXIGA) 10 mg, Daily RT Dupilumab (Dupixent) 300 MG/2ML solution auto-injector as directed Subcutaneous furosemide (LASIX) 20 mg, Every other day ipratropium-albuterol (Duo-Neb) 0.5-2.5 mg/3 mL nebulizer solution 3 mL, Every 6 hours RT isosorbide mononitrate ER (IMDUR) 60 mg, Daily MAGNESIUM PO 200 mg, Daily RT metoprolol succinate XL (TOPROL-XL) 50 mg, 2 times daily metoprolol tartrate (LOPRESSOR) 50 mg, 2 times daily nitroglycerin (NITROSTAT) 0.4 mg, Every 5 min PRN olmesartan (BENICAR) 40 mg, Daily omeprazole OTC (PRILOSEC OTC) 20 mg, Daily before breakfast predniSONE (Deltasone) 10 MG tablet ranolazine (RANEXA) 500 mg, 2 times daily Trelegy Ellipta 100-62.5-25 MCG/ACT aerosol powder 1 puff, Every 24 hours ALLERGIES: Allergies Allergen Reactions Hydrochlorothiazide Penicillins Plavix [Clopidogrel] Sodium Chloride Sulfacetamide Vancomycin Hcl [Vancomycin] REVIEW OF SYMPTOMS: Review of Systems Constitutional: Positive for fatigue. Negative for appetite change, chills and fever. HENT: Negative for congestion, ear pain and sore throat. Eyes: Negative for pain, discharge, redness and visual disturbance. Respiratory: Positive for cough, shortness of breath and wheezing. Cardiovascular: Positive for leg swelling. Negative for chest pain and palpitations. Gastrointestinal: Negative for abdominal pain, blood in stool, constipation, diarrhea, nausea and vomiting. Genitourinary: Negative for difficulty urinating, dysuria and frequency. Musculoskeletal: Negative for arthralgias, back pain, joint swelling and myalgias. Skin: Negative for rash and wound. Neurological: Negative for dizziness, tremors, seizures, syncope and headaches. Psychiatric/Behavioral: Negative for behavioral problems, self-injury and suicidal ideas. The patient is not nervous/anxious. Hematological: Does not bruise/bleed easily. Endocrine: Negative for polydipsia, polyphagia and polyuria. Allergic/Immunologic: Negative for environmental allergies and food allergies. PAST MEDICAL HISTORY Past Medical History: Diagnosis Date Anemia Arthritis Chronic obstructive pulmonary disease (HCC) Chronic RUQ pain Coronary artery disease Essential hypertension History of tobacco abuse HLD (hyperlipidemia) Kidney disease Multiple pulmonary nodules SIADH (syndrome of inappropriate ADH production) (HCC) Stroke (HCC) Past Surgical History: Procedure Laterality Date CARDIAC SURGERY Stent x 2 CHOLECYSTECTOMY HYSTERECTOMY family history includes COPD in her mother; Emphysema in her sister; Heart disease in her father and mother; Hypertension in her father and mother; Stroke in her mother. OBJECTIVE: Visit Vitals BP (!) 128/98 (BP Location: Right arm, Patient Position: Sitting, BP Cuff Size: Large adult) Pulse 98 Temp 98.6 F (Temporal) Resp 20 Wt 200 lb 3.2 oz SpO2 95% BMI 35.46 kg/m Smoking Status Former BSA 2.01 m [...] sounds: Normal heart sounds. No murmur heard. Pulmonary: Effort: Pulmonary effort is normal. Comments: No wheeze, lungs diminished RLL Wearing oxygen, resp sl tachy, skin warm and dry Abdominal: General: Bowel sounds are normal. There is no distension. Palpations: Abdomen is soft. There is no mass. Tenderness: There is no abdominal tenderness. Musculoskeletal: General: Normal range of motion. Cervical back: Normal range of motion and neck supple. Right lower leg: Edema present. Left lower leg: Edema present. Comments: Pedal 1+ bilat calf soft Skin: General: Skin is warm and dry. [...] file. Problem List Items Addressed This Visit Coronary artery disease involving hoh coronary artery of hoh heart without angina pectoris (CMS/HCC) (Chronic) Reviewed cardiology notes from [facility] Did not feel elevated trop was related to CT Morbid (severe) obesity due to excess calories (CMS/HCC) Discussed with patient their BMI (actual, verses recommended). We have also discussed lifestyle modifications: attempts to perform physical activity as chronic conditions allow, also to monitor dietary intake: increasing protein/fruits/veggies and lowering carb intake (unless contraindicated). Limit sodas, juices, and sugary drinks. Essential (primary) hypertension Please check blood pressure daily and record DASH diet Limit caffeine Take medication as directed Contact office if chest pain, pressure, dizziness, shortness of breath, swelling legs Recommend slow position changes Current meds: arb, b shyam, nitrate Chronic kidney disease, stage 3b (HCC) (CMS/HCC) Goal to keep blood pressure well control Avoid nephrotoxic drugs if possible Continue w nephrology Acute hypoxic respiratory failure (CMS/HCC) - Primary On oxygen at this time Breathing is better Fu w pulmonology next week Pneumonia Finish atbs, cont fluids, oxygen Keep appt with pulmonology next week documented in this encounter [facility] 09-06-2024 Instructions Nolvia Jimenez NP - 09/06/2024 3:00 PM EDT No med dose changes Purse lipped breathing as well documented in this encounter [facility] 09-06-2024 Evaluation note Diagnosis Stage 3a chronic kidney disease (HCC) (CMS/HCC)- Primary Other hyperlipidemia Coronary artery disease involving hoh coronary artery of hoh heart without angina pectoris (CMS/HCC) Irregular heartbeat- Primary Unspecified cardiac dysrhythmia Essential (primary) hypertension- Primary Unspecified essential hypertension Morbid (severe) obesity due to excess calories (CMS/HCC) Body mass index (BMI) 35.0-35.9, adult Chronic obstructive pulmonary disease, unspecified Chronic kidney disease, stage 3b (HCC) (CMS/HCC) Coronary artery disease involving hoh coronary artery of hoh heart without angina pectoris (CMS/HCC) Hypomagnesemia Disorders of magnesium metabolism Mixed hyperlipidemia Mixed hyperlipidemia Chronic low back pain, unspecified back pain laterality, unspecified whether sciatica present Pneumonia of right lower lobe due to infectious organism- Primary Acute hypoxic respiratory failure (CMS/HCC) Coronary artery disease involving hoh coronary artery of hoh heart without angina pectoris (CMS/HCC) Essential (primary) hypertension Unspecified essential hypertension Chronic kidney disease, stage 3b (HCC) (CMS/HCC) Morbid (severe) obesity due to excess calories ([facility]/HCC) documented in this encounter [facility] [id number] NoteHospital Medicine Discharge Summary Final Discharge Diagnosis: 1. Acute hypoxemic respiratory failure secondary to COPD exacerbation as well as right lower lobe pneumonia 2. Drop in EF to 44% compared to stress test in 2022 reported normal ejection fraction 3. Elevated troponins likely type II CT Admission Diagnosis: NSTEMI (non-ST elevated myocardial infarction) ([facility]) [I21.4] Hospital course: Chiara Eduardo is a 69 y.o. female with a history of coronary artery disease, prior stent placement, COPD, History of acute inferior wall CT, HT, HLP, CKD, obesity presented with shortness [...] felt to be related to type II CT. Of note patient had cardiac cath in [...] Center 09/22/2024 3:20 PM Zack Luu CNP [facility] Your medication list START taking these [...] 160-9-4.8 mcg/actuation HFA aerosol inhaler Generic drug: fauqigaizo-rvvlzgjz-stbcwvhett cholecalciferol 50 MCG (2000 UT) tablet Commonly [...] Medications These medications were sent to [facility] [place] [address] [place] [address] [place] [address] [facility] [address] azithromycin 500 mg tablet cefpodoxime 200 mg [...] last 7 days Lab Units 09/05/24 0406 09/04/24 0417 WBC AUTO 10*3/uL 17.69* 19.91* HEMOGLOBIN g/dL 10.2* 10.4* HEMATOCRIT % 31.9* 32.0* MCV fL 96.4 96.7 PLATELETS AUTO 10*3/uL 247 227 Chemistry: Results from last 7 days Lab Units 09/05/24 0406 09/04/24 0417 09/03/24 1709 SODIUM mmol/L 134* 133* 134* POTASSIUM mmol/ (more content not included)...[facility]06-10-2025 Note09/05/24 1018 Home Oxygen Therapy Evaluation Pulse Oximetry on room air at Rest 93 Pulse Ox on room air while walking 85 Pulse Ox on O2 with nasal cannula while walking 92 Patient Qualification for home oxygen Qualifies No oxygen required at rest 3 lpm required to keep spo2 > 90%[facility]06-10-2025 NotePhysical Therapy Physical Therapy Evaluation Patient Name: Chiara Eduardo : 1955 Today's Date: 09/05/2024 Start Time: 0850 Stop Time: 911 Time Calculation (min): 22 min PT Evaluation Time Entry PT Evaluation (Low) Time Entry: 20 General Subjective: The patient was very talkative, and pleasant, and verbalized no pain complaints, however expressed her strong desire to return home [place]. Patient Summary: Chief Complaint Patient is direct admitted from [facility] with shortness of breath. History of Present Illness Chiara Eduardo is an 69 y.o. female who came from home with shortness of breath. Patient has history of COPD, quit smoking 2016, on Lasix 20 mg every other day, started having worsening shortness of breath, and acute on chronic abdominal pain last night, she presented to [facility], found to have right lower lobe pneumonia, with increasing troponin to 78.9, lactic of 3.2, patient was started on heparin drip, antibiotics, and was sent to [facility] for further workup. At time of arrival around 5 PM, patient was lying in bed, on nonrebreather, satting 100%, complaining of mild lower abdominal pain, no chest pain, cough, palpitation, or any other related symptoms. PT Diagnosis: weakness, impaiired functional mobility. Patient Active Problem List Diagnosis Bladder prolapse, female, acquired Chronic GERD COPD (chronic obstructive pulmonary disease) (CMS/HCC) Coronary artery disease involving hoh coronary artery of hoh heart without angina pectoris Diuretic-induced hypokalemia Essential hypertension Former smoker Health care maintenance History of acute inferior wall CT Lower back pain Mixed hyperlipidemia Severe obesity (BMI 35.0-39.9) with comorbidity (CMS/HCC) Shortness of breath Chest pain Arrhythmia Anemia Hypomagnesemia Hyponatremia Non-sustained ventricular tachycardia (CMS/HCC) History of tobacco use 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 PVC (premature ventricular contraction) [...] Coronary artery disease Coronary artery disease involving hoh coronary artery of hoh heart without angina pectoris 12/28/2016 Essential hypertension [...] Level of Function Prior Function Level of [place]: Independent with ADLs and functional transfers Prior [...] Trunk Control: WNLs Static Sitting Balance Static Sittin (more content not included)...[facility] 09-04-2024 Note09/04/24 1706 Admission Assessment Questions Verify insurance with [...] it is.) Does the patient have a disease case manager rn assigned to them through their insurance? No Living Arrangement (Current/Prior to Hospitalization) Private residence Does the patient have history of HHC or SNF? Yes (Is active with a HHC service called [facility] this is through insurance [place] for renal care.) Assistive Device Cane;Other (Comment) [...] link and activate MyChart? MyChart already active [facility]06-09-2025 NoteSpiritual Care Note Patient name: Chiara Eduardo Age: 69 y.o. Room: [address] [place] [address] 09/04/24 1710 Clinical Encounter Type Visited With Patient Type of Visit Advance Directives Last Visit Date 09/04/24 Referral From Nurse Patient Spiritual Care Encounters Spiritual Care Assessment Hopeful;Coping with diagnoses (Pt seemed to be coping with situation. Pt completed ADV DIR's naming as agent and three daughters as alternates.) Pastoral Intervention Advance directives;Emotional support;Spiritual support (Doctor Of Veterinary Medicine assisted pt with completing ADV DIR. Copies made, original & copies returned to pt, copy placed in pt chart.) Response AppreciativeUnPremier Health Atrium Medical Center06-09-2025 Note Occupational Therapy Occupational Therapy Evaluation Patient Name: [...] pulmonary disease) (CMS/HCC) Coronary artery disease involving hoh coronary artery of hoh heart without angina pectoris Diuretic-induced hypokalemia Essential hypertension Former smoker Health care maintenance History of acute inferior wall CT Lower back pain Mixed hyperlipidemia Severe obesity (BMI 35.0-39.9) with comorbidity ([facility]) Shortness of breath Chest pain Arrhythmia Anemia Hypomagnesemia Hyponatremia Non-sustained ventricular tachycardia ([facility]) History of tobacco use 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 PVC (premature ventricular contraction) Multiple pulmonary nodules Irregular heartbeat Stage 3a chronic kidney disease ([facility]) Body mass index (BMI) 35.0-35.9, adult Angina pectoris, unstable ([facility]) CRP elevated Elevated WBC count NSTEMI (non-ST elevated myocardial infarction) ([facility]) Pneumonia Acute hypoxic respiratory failure ([facility]) Elevated troponin Past Medical History: Diagnosis Date Abnormal ECG Chronic GERD 12/28/2016 Chronic kidney disease COPD (chronic obstructive pulmonary disease) ([facility]) Coronary artery disease Coronary artery disease involving hoh coronary artery of hoh heart without angina pectoris 12/28/2016 Essential hypertension [...] With: Spouse Home Adaptive Equipment: Cane, Rollator (or, [facility]) Home Layout: Multi-level, Bed/bath upstairs (tri level , bed and bath up 4 steps with rail) Home Access: Stairs to enter with rails (4) Bathroom Shower/Tub: Tub/shower unit Prior Level of Function Prior Function Level of [place]: Independent with ADLs and functional transfers, Independent [...] Eating meals?: None (Independent) Total Score OT [facility]: 21 Assessment/Plan OT Assessment OT Impairments: Decreased ADL status, Decreased endurance, Decreased functional mobility OT Assessment/DIRECTOR OF ENGINEERING Summary: (needs skilled OT due to weakness and fatigue) Prognosis: Good Evaluation/Treatment Tolerance: Patient limited by fatigue Medical Staff Made Aware: Yes OT Education/Comments: (LB adl and adl transfer safety / technique with good return demo) Plan Level of assist: 1 assist Treatment Interventions: ADL retraining, Functional transfer training, Endurance training, Patient/family training, Neuromuscular reeducation, Compensatory technique education OT Plan: Skilled OT (more content not included)...[facility]06-09-[address], supply/demand mismatch EKG shows sinus rhythm with PVCs Echo pendingUnPremier Health At[facility] Medical Center06-09-2025 NoteSecondary to right lower lobe pneumonia likely component of CHF Echocardiogram pending Continue current antibiotics with Rocephin and Zithromax Lasix switched to 40 mg daily instead of every other day 20 mg Continue DuoNeb as needed Sputum culture has few gram-positive cocci in pairs Influenza A/B negative as well as COVID-19. Mycoplasma PCRUnPremier Health Atrium Medical Center06-09-2025 NotePatient at home on oral prednisone 10 mg daily Continue Dulera and Incruse Ellipta DuoNeb as neededUnPremier Health Atrium Medical Center06-09-2025 NoteHospital Medicine Daily Progress Note - 09/04/2024 12:26 PM; Room: [address] [place] [address] Admission: 09/03/2024 4:20 PM; Length of stay: 1 days THE HOSPITALIST TEAM PREFERS TO USE rapt[employer]fm FOR NON-URGENT COMMUNICATION 7AM-7PM. IF I DO NOT RESPOND WITHIN 20 MINUTES OR URGENT MATTERS, PLEASE CALL THROUGH THE ROAD CUTTER. FROM 7PM-7AM, PLEASE PAGE [phone](COVR). Code Status: Full Code Barriers to Discharge: [...] Mycoplasma PCR Elevated troponin Likely type II CT, supply/demand mismatch EKG shows sinus rhythm with [...] Results from last 7 days Lab Units 09/04/24 0417 09/03/24 1709 WBC AUTO 10*3/uL 19.91* 19.92* HEMOGLOBIN g/dL 10.4* 12.3 HEMATOCRIT % 32.0* 38.3 MCV fL 96.7 97.0 PLATELETS AUTO 10*3/uL 227 272 Chemistry: Results from last 7 days Lab Units 09/04/24 0417 09/03/24 1709 SODIUM mmol/L 133* 134* POTASSIUM mmol/L 4.5 4.8 CHLORIDE mmol/L 105 103 CO2 mmol/L 23 25 BUN mg/dL 24 29* CREATININE mg/dL 1.21* 1.48* GLUCOSE mg/dL 113* 130* MAGNESIUM mg/dL 1.8* 1.8* CALCIUM mg/dL 7.7* 8.3* Results from last 7 days Lab Units 09/04/24 0414 09/03/24 1709 HCO3 ART mEq/L 23.7 -- O2 [...] Rhea Livingston MD Hospital Medicine 09/04/2024 12:26 PMUnPremier Health Atrium Medical Center06-09-2025 Note- Patient was requiring nonrebreather upon arrival to [facility] - has been switched to high flow nasal cannula - Patient was on Lasix 20 mg every other day - switching to 40 mg daily, monitor I's and O's and daily weight - Continue with DuoNeb as needed No associated orders from this encounter found during lookback period of 72 hours.[facility]06-09-2025 Note- Patient was requiring nonrebreather upon arrival to [facility] - has been switched to high flow nasal cannula -Chest x-ray at [facility] showed right lower lobe pneumonia - 09/04/2024 x-ray done at [facility] was consistent with the previously mentioned [...] encounter found during lookback period of 72 hours.[facility]06-09-2025 Note- Currently on Breztri at home, not on home oxygen as of now - Patient is a former smoker, there is no need for smoking cessation counseling at this time No associated orders from this encounter found during lookback period of 72 hours.[facility]06-09-2025 NoteCoronary artery disease is unchanged. Continue current treatment [...] encounter found during lookback period of 72 hours.[facility]06-09-2025 NoteAdult Nutrition Assessment: Name: Chiara Eduardo Date: 1955 Date of Visit: 09/04/24 Admission Dx: NSTEMI (non-ST elevated myocardial infarction) ([facility]) [I21.4] Reason for assessment: high risk PO and COPD Information obtained from: patient and medical record Past Medical History: Diagnosis Date Abnormal ECG Chronic GERD 12/28/2016 Chronic kidney disease COPD (chronic obstructive pulmonary disease) ([facility]) Coronary artery disease Coronary artery disease involving hoh coronary artery of hoh heart without angina pectoris 12/28/2016 Essential hypertension [...] Labs: 0 Lab Value Date/Time BUN 24 09/04/20247 CREATININE 1.21 (H) 09/04/2024 0417 NA 133 (L) 09/04/2024 0417 K 4.5 09/04/2024 0417 MG 1.8 (L) 09/04/2024 0417 HGBA1C 6.6 (H) 09/03/2024 1709 HGB 10.4 (L) 09/04/2024 0417 WBC 19.91 (H) 09/04/2024 0417 CHOL 125 09/03/2024 1709 HDL 70 09/03/2024 1709 Allergies: Allergies Allergen Reactions Clopidogrel Hydrochlorothiazide Exfoliative [...] day. Breakfast will be things like bagels, slovenian muffins, eggs, sausage, cote, hash browns, or [...] of Nutrition and Dietetics (AND) and the [place] Society of Enteral and Parenteral Nutrition (ASPEN). [...] To reach the Clinical Dietitian, please utilize [employer] chat (more content not included)...[facility]06-09-2025 NoteSubjective Chiara Eduardo is a 69 year old female who reported shortness of breath yesterday. She has a PMH including COPD, HTN, HLD, and chronic GERD. She quit smoking in 2017. She presented to [facility] last night with shortness of breath and acute on chronic abdominal pain. X-ray showed right lower lobe pneumonia with increased troponin of 78.9 and lactic acid of 3.2. She was started on heparin drip, given antibiotics and sent to [facility] for further follow-up. Upon arrival to [facility], she reported mild lower abdominal pain and denied any ramón pain, cough, palpitation or any other related symptoms. Initial EKG showed sinus rhythm with frequent premature ventricular complexes and low voltage QRS. Follow-up x-ray at [facility] was consistent with the previous findings [...] -- 89 17 95 % -- -- 09/04/24754 103/56 36.3 ???C (97.3 ???F) Temporal -- -- -- -- -- 09/04/24750 103/56 36.3 ???C (97.3 ???F) [facility] 72 17 98 % -- -- 09/04/24 0451 -- -- -- -- -- -- -- 90.7 kg (200 lb) 09/04/249 -- -- -- -- -- 98 % -- -- 09/04/24 0405 135/50 36.3 ???C (97.3 ???F) [facility] 83 11 100 % -- -- 09/04/246 -- -- -- 75 16 100 % -- -- 09/04/24 0030 103/59 36.3 ???C (97.4 ???F) Temporal 76 13 99 % -- -- 09/03/242318 -- -- -- -- -- 100 % -- -- 09/03/242210 113/84 -- -- 88 -- -- -- -- 09/03/242000 -- -- -- -- -- 100 % -- -- 09/03/241999 104/60 36.1 ???C (97 ???F) Temporal 88 16 100 % -- -- 09/03/24 1855 92/51 -- -- 101 19 98 % -- -- 09/03/24 1835 129/81 -- -- 96 19 100 % -- -- 09/03/241715 -- -- -- -- -- 100 % [...] Value Ventricular Rate 93 Atrial Rate 93 WI Interval 138 QRS DURATION 76 QT Interval 354 QTC CALCULATION(BAZETT) 440 P Wright 69 R-Wright 35 T Wave Wright 45 Impression Sinus rhythm with frequent Premature ventricular complexes Low voltage QRS Borderline ECG When compared with ECG of 03-SEP-2024 16:56, No significant change was found Confirmed by Jamie Estevez ([id number]) on 09/03/2024 6:41:10 PM Nutrition Screen Assessment Assessment & Plan NSTEMI (non-ST elevated myocardial infarction) (CMS/HCC) Coronary artery disease is unchanged. Continue current [...] is down trending from 1,478 yesterday to (more content not included)...[facility]06-08-2025 Note Hospital Medicine History and Physical 09/03/2024 5:56 PM THE HOSPITALIST TEAM PREFERS TO USE [employer] CHAT FOR COMMUNICATION 7AM-7PM. IF I DO NOT RESPOND WITHIN 15 MINUTES, PLEASE PAGE ME/CALL THROUGH THE ROAD CUTTER. FROM 7PM-7AM, PLEASE PAGE [phone](COVR) Chief Complaint Patient is direct admitted from [facility] with shortness of breath. History of Present Illness Chiara A Eduardo is an 69 y.o. female who came from home with shortness of breath. Patient has history of COPD, quit smoking 2017, on Lasix 20 mg every other day, started having worsening shortness of breath, and acute on chronic abdominal pain last night, she presented to [facility], found to have right lower lobe pneumonia, with increasing troponin to 78.9, lactic of 3.2, patient was started on heparin drip, antibiotics, and was sent to [facility] for further workup. At time of [...] List Diagnosis Date Noted Non-sustained ventricular tachycardia (CMS/HCC) 11/17/2022 NSTEMI (non-ST elevated myocardial infarction) (CMS/HCC) 09/03/2024 Pneumonia 09/03/2024 Acute hypoxic respiratory failure (CMS/HCC) 09/03/2024 CRP elevated 07/26/2024 Elevated WBC count 07/26/2024 Body mass index (BMI) 35.0-35.9, adult 06/08/2024 Irregular heartbeat 04/18/2024 Stage 3a chronic kidney disease (CMS/HCC) 04/12/2023 Multiple pulmonary nodules 03/02/2023 PVC (premature ventricular contraction) 12/31/2022 History of tobacco use 12/28/2022 Other intermediate (current) 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 12/28/2022 Anemia 10/27/2022 Hypomagnesemia 10/27/2022 Hyponatremia 10/27/2022 Arrhythmia 10/26/2022 Former smoker 01/22/2020 Health care maintenance 01/22/2020 Diuretic-induced hypokalemia 01/16/2018 History of acute inferior wall CT 01/13/2018 Bladder prolapse, female, acquired 12/28/2016 Chronic GERD 12/28/2016 COPD (chronic obstructive pulmonary disease) ([facility]) 12/28/2016 Coronary artery disease involving hoh coronary artery of hoh heart without angina pectoris 12/28/2016 Lower back pain 12/28/2016 Severe obesity (BMI 35.0-39.9) with comorbidity ([facility]) 12/28/2016 Shortness of breath 12/28/2016 Essential hypertension 12/14/2016 Mixed hyperlipidemia 12/14/2016 Angina pectoris, unstable ([facility]) 06/15/2024 Chest pain 07/08/2022 Assessment and Plan # Acute hypoxic respiratory failure # Pneumonia - Patient requiring nonrebreather upon arrival to [facility], will get ABG, switch to high flow nasal cannula - Due to to pneumonia, there is also component of heart failure -Chest x-ray at [facility] showed right lower lobe pneumonia, unfortunately [...] was 8.5 then up to 78.9 at [facility], with no acute ST changes. - [...] this hospital stay by a member of [facility]. Past Medical History Past Medical History: Diagnosis Date Abnormal ECG (more content not included)...[facility]05-06-2025 Note [facility] Note Chief Complaint: Patient here for follow up heart cath and Dr. Schumacher office visit. Patient states she has no cardiac complaints. HPI: Chiara Eduardo is a 69 y.o. female with a history of coronary artery disease, prior stent placement, COPD, nonsustained ventricular tachycardia here due to worsening symptoms. For the past several months, she has noticed worsening shortness of breath. Her pipe assembly worker adjusted her inhalers but this does not [...] kidney disease, COPD (chronic obstructive pulmonary disease) ([facility]), Coronary artery disease, Coronary artery disease involving hoh coronary artery of hoh heart without angina pectoris (12/28/2016), Essential hypertension [...] x3, well developed, in (more content not included)...[facility]04-30-2025 Evaluation note* Diagnosis Stage 3a chronic kidney disease (HCC) (CMS/HCC)- Primary Other hyperlipidemia Coronary artery disease involving hoh coronary artery of hoh heart without angina pectoris (CMS/HCC) Irregular heartbeat- Primary Unspecified cardiac dysrhythmia Essential (primary) hypertension (CMS/HCC)- Primary Unspecified essential hypertension Morbid (severe) obesity due to excess calories (CMS/HCC) Body mass index (BMI) 35.0-35.9, adult Chronic obstructive pulmonary disease, unspecified Chronic kidney disease, stage 3b (HCC) (CMS/HCC) Coronary artery disease involving hoh coronary artery of hoh heart without angina pectoris (CMS/HCC) Hypomagnesemia Disorders of magnesium metabolism Mixed hyperlipidemia (CMS/HCC) Mixed hyperlipidemia Chronic low back pain, unspecified back pain laterality, unspecified whether sciatica present Leukocytosis, unspecified type- Primary documented in this encounter [facility] [id number] Evaluation note* Diagnosis Stage 3a chronic kidney disease (HCC) ([facility])- Primary Other hyperlipidemia Coronary artery disease involving hoh coronary artery of hoh heart without angina pectoris ([facility]) Irregular heartbeat- Primary Unspecified cardiac dysrhythmia Essential (primary) hypertension ([facility])- Primary Unspecified essential hypertension Morbid (severe) obesity due to excess calories ([facility]) Body mass index (BMI) 35.0-35.9, adult Chronic obstructive pulmonary disease, unspecified Chronic kidney disease, stage 3b (HCC) ([facility]) Coronary artery disease involving hoh coronary artery of hoh heart without angina pectoris ([facility]) Hypomagnesemia Disorders of magnesium metabolism Mixed hyperlipidemia ([facility]) Mixed hyperlipidemia Chronic low back pain, unspecified back pain laterality, unspecified whether sciatica present Leukocytosis, unspecified type- Primary CRP elevated Elevated C-reactive protein (CRP) documented in this encounter [facility] [id number] Evaluation note* Diagnosis Onset Date Resolution Status [...] D deficiency acute Apri l 2024 1:35pm [facility] Work Phone: 1(847) 165-106104-07-2025 NoteIV fluid bolus at 999ml per hr started. Patient states feeling lightheaded. Placed in reverse trendelenburg. States feels better with change in position [facility]03-31-2025 NoteDrLissett Ward made aware - patient is coming for R/Cors on 07/03/24 (procedure at 10:30am). She had labs on 06/26/2024. BUN 23 (normal 7.0-18.0), creat 1.34 (normal 0.55-1.02). She has a history of CKD (per her clinic note).[facility] Chief Complaint: Patient [...] has noticed worsening shortness of breath. 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 assembly worker adjusted her inhalers but this does not [...] kidney disease, COPD (chronic obstructive pulmonary disease) ([facility]), Coronary artery disease, Coronary artery disease involving hoh coronary artery of hoh heart without angina pectoris (12/28/2016), Essential hypertension [...] (Effient) 10 mg table (more content not included)...[facility]03-13-2025 History of Present illness Narrative* Nolvia Jimenez NP - 06/08/2024 5:05 PM EDTAssociated Problem(s): Lower back pain Flexeril prn * DE CARDOSO - 06/08/2024 2:40 PM EDT Pt is discontinue the Advair in 4 days and is going trelogy- dr schumacher * Nolvia Jimenez NP - 06/08/2024 2:40 [...] (CMS/HCC) Chronic RUQ pain Coronary artery disease ([facility]/HCC) Essential hypertension ([facility]/HCC) History of tobacco abuse HLD (hyperlipidemia) ([facility]/HCC) Kidney disease Multiple pulmonary nodules SIADH (syndrome of inappropriate ADH production) (CMS/HCC) Stroke ([facility]) Past Surgical History: Procedure Laterality Date CARDIAC [...] albuterol, trelegy, Under the care of pulmonology [facility] Coronary artery disease involving hoh coronary artery of hoh heart without angina pectoris (CMS/HCC) (Chronic) Under [...] changes * Nolvia Jimenez NP - 06/08/2024 7:41 AM EDTAssociated Problem(s): Hypomagnesemia Takes magnesium supplement Check labs yearly and prn dose changes or changes in symtpoms * Novlia Jimenez NP - 06/08/2024 7:41 AM EDTAssociated Problem(s): Morbid (severe) obesity due to excess calories ([facility]) Discussed with patient their BMI (actual, verses recommended). We have also discussed lifestyle modifications: attempts to perform physical activity as chronic conditions allow, also to monitor dietary intake: increasing protein/fruits/veggies and lowering carb intake (unless contraindicated). Limit sodas, juices, and sugary drinks. * Nolvia Jimenez NP - 06/08/2024 7:40 AM EDTAssociated Problem(s): Chronic kidney disease, stage 3b (HCC) ([facility]/HCC) Goal to keep blood pressure well control Avoid nephrotoxic drugs if possible Continue w nephrology * Nolvia Jimenez NP - 06/08/2024 7:40 AM EDTAssociated Problem(s): Essential (primary) hypertension (CMS/HCC) Please check blood pressure daily and record DASH diet Limit caffeine Take medication as directed Contact office if chest pain, pressure, dizziness, shortness of breath, swelling legs Recommend slow position changes Current meds: arb, b shyam, nitrate * Nolvia Jimenez NP - 06/08/2024 7:39 AM EDTAssociated Problem(s): Coronary artery disease involving hoh coronary artery of hoh heart without angina pectoris (CMS/HCC) Under the care of cardiology Current meds: statin, asa, imdur, b shyam, arb, diuretic, and ranexa Aggressive risk factor modification * Nolvia Jimenez NP - 06/08/2024 7:38 AM EDTAssociated Problem(s): Chronic obstructive pulmonary disease, unspecified (CMS/HCC) Current meds: albuterol, trelegy, Under the care of pulmonology [facility] documented in this encounterWestern [facility] CenterCeswskjufz08-43-6532 Evaluation note* Diagnosis Stage 3a chronic kidney disease (HCC) (CMS/HCC)- Primary Other hyperlipidemia (CMS/HCC) Coronary artery disease involving hoh coronary artery of hoh heart without angina pectoris (CMS/HCC) Irregular heartbeat- Primary Unspecified cardiac dysrhythmia Essential (primary) hypertension (CMS/HCC)- Primary Unspecified essential hypertension Morbid (severe) obesity due to excess calories (CMS/HCC) Body mass index (BMI) 35.0-35.9, adult Chronic obstructive pulmonary disease, unspecified (CMS/HCC) Chronic kidney disease, stage 3b (HCC) (CMS/HCC) Coronary artery disease involving hoh coronary artery of hoh heart without angina pectoris (CMS/HCC) Hypomagnesemia Disorders of magnesium metabolism Mixed hyperlipidemia (CMS/HCC) Mixed hyperlipidemia Chronic low back pain, unspecified back pain laterality, unspecified whether sciatica present documented in this encounter [facility] [id number] NoteUT Electrophysiology Consult Note Reason for visit: [...] effient. She was recently seen at [facility] as a transfer from [facility] for complaints of symptomatic wide-complex [...] Coronary artery disease Coronary artery disease involving hoh coronary artery of hoh heart without angina pectoris 12/28/2016 Essential hypertension 12/14/2016 Hyperlipidemia Lower back pain 12/28/2016 Mixed hyperlipidemia 12/14/2016 Shortness of breath 12/28/2016 PSH: Past Surgical History: Procedure Laterality Date CARDIAC CATHETERIZATION CHOLECYSTECTOMY CORONARY STENT PLACEMENT HYSTERECTOMY SH: Social Determinants of Health Tobacco Use: Medium Risk (04/26/2024) Re[facility] from [facility] Patient History Smoking Tobacco Use: Former Smokeless Tobacco Use: Never Passive Exposure: Not on file Alcohol Use: Not At Risk (01/14/2019) [facility] Frequency of Alcohol Consumption: Monthly or less Average Number of Drinks: 1 or 2 Frequency of Binge Drinking: Never Financial Resource Strain: Low Risk (10/26/2022) Overall [employer] (more content not included)...[facility]01-29-2025 History of Present illness Narrative* Shanda Cheng NP - 04/26/2024 3:41 PM ESTAssociated [...] in 2 weeks with BP readings. * Shanda Cheng NP - 04/26/2024 3:30 PM EST [...] weeks with BP readings. documented in this encounterWestern [facility] Mental Health CenterZlxmykemrn19-74-3018 Instructions* Patient Instructions* Shanda Cheng NP - 04/26/2024 3:30 PM EST [...] numbness/tingling GO TO ER!!! documented in this encounterWestern Missouri Mental Health CenterSszqvacedx48-82-7773 Evaluation note* Diagnosis Stage 3a chronic kidney disease (HCC) (CMS/HCC)- Primary Other hyperlipidemia (CMS/HCC) Coronary artery disease involving hoh coronary artery of hoh heart without angina pectoris (CMS/HCC) Irregular heartbeat- Primary Unspecified cardiac dysrhythmia Essential hypertension (CMS/HCC)- Primary Unspecified essential hypertension documented in this encounter [facility] CenterKfyztdbppn34-42-0990 History of Present illness Narrative* Shanda Cheng NP - 04/18/2024 2:57 PM ESTAssociated Problem(s): Irregular heartbeat Intermittent shortness of breath, swelling in legs, heart skipping beats, fatigue. Irregular rhythm in office today. Advised pt to report to ER for further eval and treatment * Shanda Cheng NP - 04/18/2024 2:00 PM EST Images from the original note were not included. Subjective Patient ID: Chiara Eduardo is a 68 y.o. female who presents for Follow-up. HPI Specialists: Cardiology- [facility] Nephrology- Dr. Madrid Pulmonology- Dr. Schumacher Intermittent [...] further eval and treatment documented in this encounterWestern Missouri Mental Health CenterFugylbzhts28-61-8642 Evaluation note* Diagnosis Stage 3a chronic kidney disease (HCC) (CMS/HCC)- Primary Other hyperlipidemia (CMS/HCC) Coronary artery disease involving hoh coronary artery of hoh heart without angina pectoris (CMS/HCC) Irregular heartbeat- Primary Unspecified cardiac dysrhythmia documented in this encounter [facility] CenterLhmhmsewac83-42-3634 Evaluation note* Diagnosis Stage 3a chronic kidney disease (HCC) (CMS/HCC)- Primary Other hyperlipidemia (CMS/HCC) Coronary artery disease involving hoh coronary artery of hoh heart without angina pectoris (CMS/HCC) Stage 3a chronic kidney disease (HCC) (CMS/HCC)- Primary documented in this encounter [facility] CenterAqmafrksow55-93-0587 History of Present illness Narrative* Shanda Cheng, NIXON - 01/17/2024 1:00 PM EDT Images from the original note were not included. Subjective : Chief Complaint: Chiara Eduardo is an 68 y.o. female here for an annual wellness visit. Specialists: Cardiology- [facility], [place] Pulmonology- Dr. Schumacher Nephrology- Dr. Madrid I [...] placed in this encounter. Electronically signed by Shanda Cheng NP on January 17, 2024 * Shanda Cheng NP - 01/17/2024 1:00 PM EDT [...] placed in this encounter. Electronically signed by Shanda Cheng NP on January 17, 2024 documented in this encounterWestern Missouri Mental Health CenterSvstivvpwz09-24-7105 NoteUT Electrophysiology Consult Note Reason for visit: [...] effient. She was recently seen at [facility] as a transfer from [facility] for complaints of symptomatic wide-complex [...] kidney disease COPD (chronic obstructive pulmonary disease) ([facility]) Coronary artery disease Coronary artery disease involving hoh coronary artery of hoh heart without angina pectoris 12/28/2016 Essential hypertension [...] Places Lived in the (more content not included)...[facility]07-16-2024 NoteUT Electrophysiology Consult Note Reason for [...] effient. She was recently seen at [facility] as a transfer from [facility] for complaints of symptomatic wide-complex [...] kidney disease COPD (chronic obstructive pulmonary disease) ([facility]) Coronary artery disease Coronary artery disease involving hoh coronary artery of hoh heart without angina pectoris 12/28/2016 Essential hypertension [...] %) nebulizer solution INHA (more content not included)...[facility]12-12-2023 Evaluation note* Encounter Date Diagnosis Assessment [...] deficiency (ICD-10 - E55.9) continue VD supplement [employer] Other [id number] Evaluation note* Encounter Date Diagnosis Assessment Notes [...] I will recheck sodium level next visit [employer] Other Evaluation note* Diagnosis Onset Date Resolution Status Anemia acute Hyperkalemia acute Hypertensive nephropathy acu te Hyperuricemia acute Hypomagnesemia acute Hyponatremia acute Stage 3b chronic kidney disease acute Vitamin D deficiency acute [facility] Work Phone: Evaluation note* Diagnosis Stage 3a chronic kidney disease (HCC) (CMS/HCC)- Primary Other hyperlipidemia (CMS/HCC) Coronary artery disease involving hoh coronary artery of hoh heart without angina pectoris (CMS/HCC) Routine general medical examination at health care facility- Primary Routine general medical examination at a health care facility documented in this encounter [facility] HealthcareEvaluation [facility]* Diagnosis Stage 3a chronic kidney disease (HCC) (CMS/HCC)- Primary Other hyperlipidemia (CMS/HCC) Coronary artery disease involving hoh coronary artery of hoh heart without angina pectoris (CMS/HCC) Other hyperlipidemia (CMS/HCC) documented in this encounter [facility] HealthcareEvaluation note* Diagnosis Stage 3a chronic kidney disease (HCC) (CMS/HCC)- Primary Other hyperlipidemia (CMS/HCC) Coronary artery disease involving hoh coronary artery of hoh heart without angina pectoris (CMS/HCC) Irregular heartbeat- Primary Unspecified cardiac dysrhythmia Essential hypertension (CMS/HCC)- Primary Unspecified essential hypertension documented in this encounter [facility] CenterHistory general Narrative - Reported* Type Description Date Medical History CHRONIC OBSTRUCTIVE PULMONARY DI SEASE Medical History HYPERTENSION Medical History GERD Medical History HYPERLIPIDEMIA Medical History HEART ATTACK Surgical History HYSTERECTOMY Surgical History GALL BLADDER Surgical History TUBES TIED Surgical History 2 HEART STENTS Hospitalization History SEE ABOVE [employer] Other History general Narrative - Reported* Type [...] History SEE ABOVE Hospitalization History V-TACH 3 [employer] Other Summary Purpose Family History No Family History Records Found Relationship Condition Age at Onset Recorded Date/T abdirizak daughter Hypertension Unknown father Unknown Hypertension Unknown mother Heart disease Unknown History of stroke Unknown Unknown sister Hypertension Unknown Advance Directives No Advanced Directives Records Found Advance Directive Response Recorded Date/ Time Advance Directives No November 16, 2023 9:54am Documents on File Type Date Recorded 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 pital DATE CREATED AUTHOR AUTHOR'S ORGANIZ ATION 08/07/[address] [facility] ysician Group DATE CREATED AUTHOR AUTHOR'S ORGANIZ ATION 09/09/2024 [facility] dical Specialists EPIC DATE CREATED AUTHOR AUTHOR'S ORGANIZ ATION 10/07/2024 [facility] Care Teams (unrecognized sec tion [...] Team Status: Active Member Role Status Dates Shanda Cheng NP-C Primary Care Provider Ac tive Team Status: Active Member Role Status Dates Jackelyn Guillory MD Attending Provider Active Star t: November 23, 2023 Shaikh Ric MD Primary Care Provider Active Start: November 23, 2023 Team Status: Inactive Member Role Status Dates Jackelyn Guillory MD Attending Provider, Referring Provider Active Start: December 20, 2023 End: December 20, 2023 Shanda Cheng JEWEL DIAMETER GAUGER-C Primary Care Provider Active Start: November 282023 End: December 20, 2023 Manager Medical Writing Relationship Specialty Start Date End Date Shaikh Larios MD [address] [place] [address] PCP - [facility] FLOWER 04/29/23 Trace Kelly MD [address] [place] [address] PCP - General Family Medicine 11/10/23 Shanda Cheng NP [address] [place] [address] Nurse Practitioner Family Medicine 11/10/23 Manager Medical Writing Relationship Specialty Start Date End Date Shaikh Larios MD [address] [place] [address] PCP - Alexx FLOWER 04/29/23 Trace Kelly MD [address] [place] [address] PCP - General Family Medicine 01/17/24 Shanda Cheng NP [address] [place] [address] Nurse Practitioner Family Medicine 11/10/23 Manager Medical Writing Relationship Specialty Start Date End Date Shaikh Larios MD [address] [place] [address] PCP - Alexx FLOWER 04/29/23 Trace Kelly MD [address] [place] [address] PCP - General Family Medicine 01/17/24 Shanda Cheng NP [address] [place] [address] Nurse Practitioner Family Medicine 11/10/23 Manager Medical Writing Relationship Specialty Start Date End Date Shaikh Larios MD [address] [place] [address] PCP Ana Lilia Coffey MA 04/29/23 Trace Kelly MD [address] [place] [address] PCP - General Family Medicine 01/17/24 Shanda Cheng NP [address] [place] [address] Nurse Practitioner Family Medicine 11/10/23 Manager Medical Writing Relationship Specialty Start Date End Date Shaikh Larios MD [address] [place] [address] PCP - Alexx FLOWER 04/29/23 Trace Kelly MD [address] [place] [address] PCP - General Family Medicine 11/10/23 Shanda Cheng JEWEL DIAMETER GAUGER [address] [place] [address] Nurse Practitioner Family Medicine 11/10/23 Manager Medical Writing Relationship Specialty Start Date End Date Shaikh Larios MD [address] [place] [address] PCP - Alexx FLOWER 04/29/23 Trace Kelly MD [address] [place] [address] PCP - General Family Medicine 01/17/24 Shanda Cheng, JEWEL DIAMETER GAUGER [address] [place] [address] Nurse Practitioner Family Medicine 11/10/23 Manager Medical Writing Relationship Specialty Start Date End Date Shaikh Larios MD [address] [place] [address] PCP - Alexx FLOWER 04/29/23 Trace Kelly MD [address] [place] [address] PCP - General Family Medicine 01/17/24 Shanda Cheng NP [address] [place] [address] Nurse Practitioner Family Medicine 11/10/23 Manager Medical Writing Relationship Specialty Start Date End Date Shaikh Larios MD [address] [place] [address] PCP - Alexx FLOWER 04/29/23 Trace Kelly MD [address] [place] [address] PCP - General Family Medicine 01/17/24 Shanda Cheng NP [address] [place] [address] Nurse Practitioner Family Medicine 11/10/23 Manager Medical Writing Relationship Specialty Start Date End Date Shaikh Larios MD [address] [place] [address] PCP Ana Lilia Coffey MA 04/29/23 Trace Kelly MD [address] [place] [address] PCP - General Family Medicine 01/17/24 Shanda Cheng NP [address] [place] [address] Nurse Practitioner Family Medicine 11/10/23 Manager Medical Writing Relationship Specialty Start Date End Date Trace Kelly MD [address] [place] [address] PCP - General Family Medicine 01/17/24 Shanda Cheng NP PCP - Alexx FLOWER 03/29/24 Shanda Cheng NP Nurse Practitioner Family Medicine 11/10/23 Manager Medical Writing Relationship Specialty Start Date End Date Trace Kelly MD [address] [place] [address] PCP - General Family Medicine 01/17/24 Shanda Cheng NP PCP Ana Lilia Coffey MA 03/29/24 Shanda Cheng NP Nurse Practitioner Family Medicine 11/10/23 Team Status: Active Member Role Status Dates KARO Santos Primary Care Provider Ac tive Start: May 02, 2024 Rob Deras DO Attending Provider Active Sta rt: May 02, 2024 Team Status: Active Member Role Status Dates Jackelyn Guillory MD Attending Provider Active Star t: July 17, 2024 KIERA SantosC Primary Care Provider Ac tive Start: July 17, 2024 Team Status: Inactive Member Role Status Dates KIERA SantosC Primary Care Provider Ac tive Start: July 25, 2024 End: July 25, 2024 Jackelyn Guillory MD Attending Provider Active Star t: July 25, 2024 End: July 25, 2024 Manager Medical Writing Relationship Specialty Start Date End Date Trace Kelly MD [address] [place] [address] PCP - General Family Medicine 01/17/24 Shanda Cheng NP PCP - Alexx FLOWER 03/29/24 Shanda Cheng NP Nurse Practitioner Family Medicine 11/10/23 Manager Medical Writing Relationship Specialty Start Date End Date Trace Kelly MD [address] [place] [address] PCP - General Family Medicine 01/17/24 Shanda Cheng NP PCP - Alexx FLOWER 03/29/24 Shanda Cheng NP Nurse Practitioner Family Medicine 11/10/23 Team Status: Inactive Member Role Status Dates Nolvia Jimenez Attending Provider Active Start: July 26, 2024 End: July 26, 2024 Manager Medical Writing Relationship Specialty Start Date End Date Trace Kelly MD [address] [place] [address] PCP - General Family Medicine 01/17/24 Shanda Cheng NP PCP Ana Lilia Coffey MA 03/29/24 Shanda Cheng NP Nurse Practitioner Family Medicine 11/10/23 Manager Medical Writing Relationship Specialty Start Date End Date Trace Kelly MD [address] [place] [address] PCP - General Family Medicine 01/17/24 Shanda Cheng NP PCP - Alexx FLOWER 03/29/24 Shanda Cheng NP Nurse Practitioner Family Medicine 11/10/23 Manager Medical Writing Relationship Specialty Start Date End Date Trace Kelly MD [address] [place] [address] PCP - General Family Medicine 01/17/24 Shanda Cheng NP PCP - Alexx FLOWER 03/29/24 Shanda Cheng NP Nurse Practitioner Family Medicine 11/10/23 Manager Medical Writing Relationship Specialty Start Date End Date Trace Kelly MD [address] [place] [address] PCP - General Family Medicine 01/17/24 Shanda Cheng NP PCP Ana Lilia Coffey MA 03/29/24 Shanda Cheng NP Nurse Practitioner Family Medicine 11/10/23 Manager Medical Writing Relationship Specialty Start Date End Date Trace Kelly MD [address] [place] [address] PCP - General Family Medicine 01/17/24 Shanda Cheng NP PCP Ana Lilia Coffey MA 03/29/24 Shanda Cheng NP Nurse Practitioner Family Medicine 11/10/23 [...] BE BASED ON THE PRIMARY CLINICAL RECORDS. [facility] [employer] [facility]. provides no warranty or guarantee of the accuracy or completeness of information in this document.
[2024-10-10 11:15] LABS: Anion Gap 12.5; Blood Urea Nitrogen 23.0 mg/dL (7.0-18.0); Calcium 8.9 mg/dL (8.5-10.1); Carbon Dioxide 27.6 mmol/L (21.0-32.0); Chloride 100 mmol/L (98-107); Estimated GFR (African America 41 (>=60 mL/min/1.73m^2); Estimated GFR (Non-African Ame 34 (>=60 mL/min/1.73m^2); Glucose 100 mg/dL (74-106); Potassium 5.1 mmol/L (3.5-5.1); Sodium 135 mmol/L (136-145)
== END 2024-10-10 10:09 | disposition home or self-care (01) ==
LOC: LAB 10:14
PROVIDERS: PCP Nurse Practitioner; Visit Provider Internal Medicine Interventional Cardiology
DX: I50.23 Acute on chronic systolic (congestive) heart failure (principal)
CPT/HCPCS: 36415; 80048

== ENCOUNTER 2024-10-10 16:35 | Outpatient (OUT) | payer MEDICARE, SELFPAY ==
--- OUTSIDE RECORDS SUMMARY | 2024-09-06 13:03 | XMS_ITS ---
Author Organization [facility] in [place] Address [address] [place] [address] Care Team Providers Care Cutting Torch Operator Name Role Phone Nolvia Jimenez CNP Primary Care Provider Unavail Brien Estrada Unavailable [phone] REASON FOR VISIT DuoNeb refill Medications Medication SIG (Take, Route, Frequency, Duration) Notes Start Date End Date Status Ipratropium-Albuterol 0.5-2.5 (3) MG/3ML 3mL Inhalation QID for 90 days Dispense 360 ampules 08/11/2023 Active Encounters Encounter Location Date Provider Diagnosis Pulmonary Medicine [place] [address] [place] [address] 09/06/2024 Brien Coughlin COPD (chronic obstructive pulmonary disease) J44.9 Assessments Encounter Date Diagnosis (ICD Code) Assessment Notes Treatment Notes Treatment Clinical Notes Section Notes 09/06/2024 COPD (chronic obstructive pulmonary disease) (ICD-10 - J44.9) Plan Of Treatment Medication Medication Name Sig Start Date Stop Date Notes Ipratropium-Albuterol 0.5-2. 5 (3) MG/3ML 3mL Inhalation QID for 90 days 08/11/2023 Next Appt Details Provider Name:Brien Victoria, 11/22/2024 11:30:00 AM, [address] [place], [address], Progress Notes * Susana JUARESDOB:[birth year] (69 yo F)Acc No.[id number]:09/06/2024 Patient: Susana MARTIN :1955 A ge:69 Y S ex:Female Address:[address] [place] [id number] * Refills Refill Ipratropium-Albuterol Solution, 0.5-2.5 (3) MG/3ML, Inhalation, 1080 ML, 3mL, QID, 90 days, Refills=4 Subjective: * Chief Complaints: * D uoNeb refill * Medical History: * Surgical History: * Hospitalization/Major Diagno stic Procedure: * Medications: Objective: * Vitals: * Physical Examination: Assessment: * Assessment: 1. C OPD (chronic obstructive pulmonary disease) - J44.9 (Primary) Plan: * Treatment: * Procedure Codes: * true * Date: Generated for Merly gonzalez/Brandin/Edithsmitting on: 0 10/10/2024 04:39 PM EDT
--- OUTSIDE RECORDS SUMMARY | 2024-09-07 09:29 | XMS_ITS ---
Author Organization [facility] in [place] Address [address] [place] [address] Care Team Providers Care Supervisor Name Role Phone Nolvia Jimenez CNP Primary Care Provider Brien Chase Unavailable [phone] REASON FOR VISIT Oxygen Encounters Encounter Location Date Provider Diagnosis Pulmonary Medicine [place] [address] [place] [address] 09/07/2024 Brien Coughlin Plan Of Treatment Next Appt Details Provider Name:Brien Coughlin, 11/22/2024 11:30:00 AM, [address] [place], [address], Progress Notes * Susana JUARESDOB:[birth year] (69 yo F)Acc No.[id number]:09/07/2024 Patient: Karo BARRIGA Susana :1955 A ge:69 Y S ex:Female Address:[address] [address] * true * Date: Generated for Merly gonzalez/Brandin/eTransmitting on: 0 10/10/2024 04:40 PM EDT
--- OUTSIDE RECORDS SUMMARY | 2024-09-12 11:30 | XMS_ITS ---
Author Organization The [facility] in [place] Address [address] [place] [address] Care Team Providers Care Powder Expert Name Role Phone Nolvia Jimenez CNP Primary Care Provider Unavail able Juliensa Brien Unavailable [phone] Allergies Allergen (clinical drug ingredient) Drug/Non Drug Allergy documented on EMR Reaction Allergy Type Onset Date Status clopidogrel Plavix Unknown Drug Allergy Active hydrochlorothiazide Hydrochlorothiazide shortnes s of breath Drug Allergy Active Substance with sulfonamide structure and antibacterial mechanism of action (substance) Sulfa Antibiotics Unknown Drug Allergy Active Penicillin rash Drug Allergy Active vancomycin Vancomycin Unknown Drug Allergy Active REASON FOR VISIT F/U-[facility] Medications Medication SIG (Take, [...] (I25.2) Active confirmed Problem Chronic respiratory failure (30356924) Chronic respiratory failure with hypoxia (J96.11) Active [...] Encounter Location Date Provider Diagnosis Pulmonary [facility] [address] [place] [address] 09/12/2024 Brien Coughlin COPD (chronic obstructive pulmonary disease) J44.9 ; Chronic respiratory failure with hypoxia J96.11 ; Multiple pulmonary nodules R91.8 ; History of non-ST elevation myocardial infarction (NSTEMI) I25.2 ; History of tobacco abuse Z87.891 ; ocean transportation intermediary (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 of systemic steroids Z79.52 ; [...] monitoring d/t the NSTEMI and reduced EF. Qdmr-vo-ekyi encounter performed with the patient to document continued need for a nebulizer with nebulized medications. -Current nebulized medications: DuoNeb -Symptom control: Improved with use -Reported side or adverse effects: None -Recommendations: Renew, refill, reorder nebulizer and supplies. 09/12/2024 Chronic respiratory failure with hypoxia (ICD-10 - J96.11) Qvux-vs-pdgh encounter performed with the patient to document [...] 01/24/2024 - RADS-2. LDCT due 12/2024. 09/12/2024 assisted (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 of systemic steroids (ICD-10 - Z79.52) Discussed adverse effects of terminal clerk systemic steroids including, but not limited to: increased risk of cataracts, elevated blood sugars/worsening of underlying diabetes mellitus, impaired wound healing, gastrointestinal ulcers, osteoporosis. 09/12/2024 ocean transportation intermediary (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 of inhaled steroids (ICD-10 - [...] monitoring d/t the NSTEMI and reduced EF. Vmmu-js-ukki encounter performed with the patient to document continued need for a nebulizer with nebulized medications. -Current nebulized medications: DuoNeb -Symptom control: Improved with use -Reported side or adverse effects: None -Recommendations: Renew, refill, reorder nebulizer and supplies. Chronic respiratory failure with hypoxia Erbn-hu-rxtv encounter performed with the patient to document [...] s ystemic steroids Discussed adverse effects of residential systemic steroids including, but not limited to: increased risk of cataracts, elevated blood sugars/worsening of underlying diabetes mellitus, impaired wound healing, gastrointestinal ulcers, osteoporosis. ocean transportation intermediary (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 of i nhaled steroids Patient was counseled to rinse & gargle with water after inhaled corticosteroid use. Obesity, unspecified Patient's weight is inducing a restrictive pulmonary physiology. Weight loss indicated: Decrease calories, increase activity. Next Appt Details Follow Up: 4 Months, Reason: COPD, O2 Provider Name:Brien Coughlin, 11/22/2024 11:30:00 AM, [address] [place], [address], Procedure Notes * Category Sub-Category Detail Notes PFT Data: 01/24/2024-FEV1/ FVC: 53%-FEV1: 43%-FVC: 61%-Bronchodilator response: Positive in FVC-RV: 184%-T%-DLCO: 55%-Flow-volume loop: Severe ukozlwbkwxl02/23/2023-FEV1/FVC: 55%-FEV1: 41%-FVC: 56%-Bronchodilator response: Positive in FVC-RV: 197%-T%-DLCO: 61%-Flow-volume loop: Severe kgnhukhftxp11/28/2022-FEV1/FVC: 61%-FEV1: 49%-FVC: 61%-Bronchodilator response: Equivocal-RV: 166%-T%-DLCO: 53%-Flow-volume loop: Severe lrqldrjxsyg67/21/2020 - Spirometry-FEV1/FVC: 59%-FEV1: 47%-FVC: 64%-MSS50-33%: 25%-Flow-volume loop: Moderately-severe obstruction-No bronchodilator response07/20/20185531-Ezudfucdfb-GEX7/FVC: 63%-FEV1: 51%-FVC: 62%-GSM44-94%: 31%-Flow-volume loop: Moderate obstruction07/20/20170196-Fdkovvoqbr-ZJJ2/FVC: 69% -FEV1: 55%-FVC: 68%-OZT02-30%: 31%-Flow-volume loop: Moderate obstruction Alpha-1 Antitrypsin Screening Date: 01/15/2021 Genotype: M/M Progress Notes * Susana EDUARDODOB:[birth year] (69 yo F)Acc No.[id number]:09/12/2024 Progress Note Patient: Susana MARTIN Provider: Tam Coughlin DO :1955 A ge:69 Y S ex:Female Date:09/12/2024 Address:[address] [place] [address] [address] [facility] , [place], [id number] Pcp:Nolvia Jimenez CNP Check In:03:33 PM ESTCheck O ut:04:47 PM EST Subjective: * Chief Complaints: * F /U-[facility] * HPI: G eneral: Patient was last seen by me on 08/23/2024. Her breathing worsened after that day and came to [facility] ER on with dyspnea, chest pain, [...] failure with hypoxia Modified On:09/12/2024 Status:confirmed Z79.51 ocean transportation intermediary (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 of inhaled steroids Modified On:01/25/2023 [...] pulmonary disease, unspecified Modified On:01/28/2024 Status:confirmed Z79.52 assisted (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 of systemic steroids Modified On:08/01/2024U Status:confirmed * Medical History: * Surgical History: C ardiac Catheterization-2001, 07/14/2022, 10/30/2022 & 07/03/2024 hysterectomy cholecystectomy * Hospitalization/Major Diagno stic Procedure: A rrhythmia & Hyponatremia-[facility] 3Acute Respiratory Failure-[facility] 09/03/2024 * Family History: [...] Orally Once a day Take with foodTrelegy Ellipta(Ayecbusyibf-Axwztagwj-Whdkpf) 100-62.5-25 MCG/ACT Aerosol Powder Breath Activated 1 [...] Once a day Take with foodTaking Trelegy Ellipta(Wgnzbalcfaq-Nexqnghkq-Gmnbtk) 100-62.5-25 MCG/ACT Aerosol Powder Breath Activated 1 [...] C hronic respiratory failure with hypoxia Notes: Lwdp-vf-sler encounter performed with the patient to document [...] systemic steroids Notes: Discussed adverse effects of residential systemic steroids including, but not limited to: [...] Spirometry -FEV1/FVC: 59% -FEV1: 47% -FVC: 64% -IPY88-89%: 25% -Flow-volume loop: Moderately-severe obstruction -No bronchodilator response 07/20/2018-Spirometry -FEV1/FVC: 63% -FEV1: 51% -FVC: 62% -QME05-06%: 31% -Flow-volume loop: Moderate obstruction 07/20/2017-Spirometry -FEV1/FVC: 69% -FEV1: 55% -FVC: 68% -UIW84-75%: 31% -Flow-volume loop: Moderate obstruction. * Procedure [...] Reason: D rug declined by patient B PA ACTION PLAN Above Normal BMI Follow-up D ietary management education, guidance, and counseling * Follow Up: 4 Months (Reason: COPD, O2) * * Sign off status: Completed Visit Status: C HK (Check Out) true * Provider: Tam Coughlin DO Date: 0 09/12/2024 Generated for Merly gonzalez/Brandin/Dana on: 0 10/10/2024 06:48 AM EDT History and Physical Notes * [...] Ears Nose Wearing nasal cannul a Mouth [place] and moist. No c andidiasis Trachea Midline [...]
--- NOTE | 2024-10-10 | XR_ITS ---
The [address] [address] Patient Name: CHIARA EDUARDO MRN: [id number] date: 1955 Sex: F Assigned Patient Location: [facility] Current Patient Location: [facility] Accession/Order Number: [id number] Exam Date: 10/10/2024 17:01 Report Date: 10/10/2024 17:03 At the request of: ENMA HURLEY NP Procedure: XR abdomen 1V XR abdomen 1V 10/10/2024 4:54 PM SIGNS AND SYMPTOMS: Shortness of breath, constipation PROTOCOL: Frontal radiographs of the abdomen and pelvis COMPARISON: None FINDINGS: There is a moderate to large amount of stool within the colon. Surgical clips are present in the right upper quadrant consistent with prior cholecystectomy. Degenerative changes are noted in the thoracolumbar spine. Degenerative changes are noted in the right hip. XR/XR abdomen 1V IMPRESSION: No bowel obstruction or free air. There is a moderate to large amount of stool within the colon. This is consistent with the history of constipation. Impression dictated by: Tahir Garcia M.D. 10/10/2024 5:03 PM Dictation Location: [place] [id number] Electronically authenticated by: [id number] Y Date: 10/10/2024 17:03
--- NOTE | 2024-10-10 | XR_ITS ---
[facility] [place] [id number] Patient Name: CHIARA EDUARDO MRN: [id number] date: 1955 Sex: F Assigned Patient Location: [facility] Current Patient Location: [facility] Accession/Order Number: [id number] Exam Date: 10/10/2024 17:03 Report Date: 10/10/2024 17:04 At the request of: ENMA HURLEY NP Procedure: XR chest 2V XR chest 2V 10/10/2024 4:54 PM SIGNS AND SYMPTOMS: ^Dyspnea, CHF, COPD PROTOCOL: Frontal and lateral radiographs of the chest COMPARISON: 09/03/2024 FINDINGS: The trachea is midline. The heart and mediastinal structures are within normal limits. The lung parenchyma is clear. The bony thorax is intact. Degenerative changes are noted in the thoracic spine. There is evidence of prior cholecystectomy in the right upper quadrant. XR/XR chest 2V IMPRESSION: No acute cardiopulmonary pathology. Impression dictated by: Tahir Garcia M.D. 10/10/2024 5:04 PM Dictation Location: [place] [id number] Electronically authenticated by: [id number] Y Date: 10/10/2024 17:04
--- OUTSIDE RECORDS SUMMARY | 2024-10-10 15:40 | XMS_ITS | Encounter Summary ---
Author Organization [facility] Address [address] [place] [address] Care Team Providers Care Seamless Hosiery Knitter Name Role Phone Argelia Cheng SENIOR COST ANALYST Unavailable [phone] Trace Kelly MD Primary Care Provider [phone] Argelia Cheng SENIOR COST ANALYST Unavailable [phone] Reason for Visit * Reason Comments Vomiting Encounter Details Date Type Department Care Team (Late st Contact Info) Description 10/10/2024 3:40 PM EDT Office Visit [facility] [address] [place] [phone] Nolvia Jimenez NP [address] [place] [address] Morbid (severe) obesity due to excess calories (CMS-HCC) (Primary Dx); Other hyperlipidemia ; Type 2 diabetes mellitus without complications (HCC); Emphysema, unspecified (HCC) Social History Tobacco Use Types Packs/Day Years Used Date Smoking Tobacco: Former Cigarettes 30 986 - 2016 Smokeless Tobacco: Never Alcohol [...] file 06/08/2024 How often do you attend [facility] or pentecostalism services? 1 to 4 times per year 06/08/2024 Do you belong to any clubs o r organizations such as evangelical groups, unions, fraternal or athletic groups, or [...] and heating? Not hard at all 06/08/2024 [facility] Occupational Stress Questionnaire Answer Date Recorded [...] any time in the past 12 m [facility], were you homeless or living in a prison (including now)? No 06/08/2024 Comments Unknown Sex and Gender Information Value Date Recorded Sex Assigned at Not on file Legal Sex Female 3:02 PM EDT Gender Identity Not on file Sexual Orientation Not on file documented as of this encounter Last Filed Vital Signs Vital Sign Reading Time Taken Comments Blood Pressure 120/88 10/10/2024 3:51 PM EDT Pulse 86 10/10/2024 3:51 PM EDT Temperature 36.9 C (98.5 F) 10/10/2024 3:51 PM EDT Respiratory Rate 26 10/10/2024 3:51 PM EDT Oxygen Saturation 95% 10/10/2024 3:51 PM EDT Inhaled Oxygen Concentration - - Weight 88.9 kg (196 lb) 10/10/2024 3:51 PM EDT Height - - Body Mass Index 34.72 04/26/2024 3:02 PM EST documented in this encounter Patient Instructions * Patient Instructions* Nolvia Jimenez NP - 10/10/2024 3:40 PM EDT Check xray: abd, and chest xray I will call [facility] Cardiology about shortness of breath, possibly do something different with water pills If worsening go to Er documented in this encounter Progress Notes * Nolvia Jimenez NP - 10/10/2024 6:53 AM EDTAssociated Problem(s): Type 2 diabetes mellitus without complications (HCC) HTN, HLD * Nolvia Jimenez NP - 10/10/2024 6:49 AM EDTAssociated Problem(s): Morbid (severe) obesity due to excess calories ([facility]) Discussed with patient their BMI (actual, verses recommended). We have also discussed lifestyle modifications: attempts to perform physical activity as chronic conditions allow, also to monitor dietary intake: increasing protein/fruits/veggies and lowering carb intake (unless contraindicated). Limit sodas, juices, and sugary drinks. documented in this encounter Plan of Treatment Upcoming Encounters Date Type Department Care Team (Late st Contact Info) Description 11/13/2024 1:40 PM EDT Office Visit [facility] [address] [place] [address] Nolvia Jimenez NP [address] [place] [address] documented as of this encounter Visit Diagnoses Diagnosis Morbid (severe) obesity due to excess calories ([facility]-HCC)- Primary Other hyperlipidemia Type 2 diabetes mellitus without complications (HCC) Emphysema, unspecified (HCC) documented in this encounter Care Teams Seamless Hosiery Knitter Relationship Specialty Start Date End Date Trace Kelly MD [address] [place] [address] PCP - General Family Medicine 01/17/24 Argelia Cheng NP PCP - Alexx FLOWER 03/29/24 Argelia Cheng NP Nurse Practitioner Family Medicine 11/10/23 documented as of this encounter
--- OUTSIDE RECORDS SUMMARY | 2024-10-10 16:39 | XMS_ITS | Encounter Summary ---
Author Organization [facility] Address [address] [place] [address] Care Team Providers Care Mounter Name Role Phone Argelia Cheng JACQUARD LOOM CARD CHANGER Unavailable [phone] Trace Kelly MD Primary Care Provider [phone] Argelia Cheng JACQUARD LOOM CARD CHANGER Unavailable [phone] Encounter Details Date Type Department Care Team (Latest Contact Info) Description 10/06/2024 Travel Social History Tobacco Use Types Packs/Day Years [...] file 06/08/2024 How often do you attend [facility] or anglican services? 1 to 4 times per year 06/08/2024 Do you belong to any clubs o r organizations such as caodaism groups, unions, fraternal or athletic groups, or [...] and heating? Not hard at all 06/08/2024 [facility] [place] of Occupat ional Health - Occupational Stress [...] any time in the past 12 m [facility], were you homeless or living in a long-term (including now)? No 06/08/2024 Comments Unknown Sex and Gender Information Value Date Recorded Sex Assigned at Not on file Legal Sex Female 3:02 PM EDT Gender Identity Not on file Sexual Orientation Not on file documented as of this encounter Plan of Treatment Upcoming Encounters Date Type Department Care Team (Late st Contact Info) Description 11/13/2024 1:40 PM EDT Office Visit [facility] [address] [place] [address] Nolvia Jimenez NP [address] [place] [address] documented as of this encounter Visit Diagnoses Not on filedocumented in this encounter Care Teams Mounter Relationship Specialty Start Date End Date Trace Kelly MD [address] [place] [address] PCP - General Family Medicine 01/17/24 Argelia Cheng NP PCP - Alexx FLOWER 03/29/24 Argelia Cheng NP Nurse Practitioner Family Medicine 11/10/23 documented as of this encounter
--- OUTSIDE RECORDS SUMMARY | 2024-10-10 16:39 | XMS_ITS | Encounter Summary ---
Author Organization [facility] Address [address] [place] [address] Care Team Providers Care Toppiece Chopper Name Role Phone Argelia Cheng SEED POTATO CUTTER Unavailable [phone] Trace Kelly MD Primary Care Provider [phone] Argelia Cheng SEED POTATO CUTTER Unavailable [phone] Encounter Details Date Type Department Care Team (Late st Contact Info) Description 10/02/2024 Patient Outreach [facility] [address] [place] [place] [address] Gillian Mcnulty MA [address] [place] [address] Social History Tobacco Use Types Packs/Day Years [...] often do you attend chur ch or protestant services? 1 to 4 times per year 06/08/2024 Do you belong to any clubs o r organizations such as buddhist groups, unions, fraternal or athletic groups, or [...] and heating? Not hard at all 06/08/2024 [facility] [place] of Occupat ional Health - Occupational Stress [...] No 06/08/2024 Housing Stability Vital Sign Answer Arjiv e Recorded In the last 12 months, was t here a time when you were not able to pay the mortgage or rent on time? No 06/08/2024 Number of Times Moved in the Last Year Not on fi le 06/08/2024 At any time in the past 12 m [facility], were you homeless or living in a correction (including now)? No 06/08/2024 Comments Unknown Sex [...] monitor her oxygen level. Pt said the mailing clerk increased her to two water pills now and ordered labwork. She sees him again in October. documented in this encounter Plan of Treatment Upcoming Encounters Date Type Department Care Team (Late st Contact Info) Description 11/13/2024 1:40 PM EDT Office Visit [facility] [address] [place] [address] Nolvia Jimenez NP [address] [place] [address] documented as of this encounter Visit Diagnoses Diagnosis Essential (primary) hypertension- Primary Unspecified essential hypertension Chronic obstructive pulmonary disease, unspecified COPD type (HCC) documented in this encounter Care Teams Toppiece Chopper Relationship Specialty Start Date End Date Trace Kelly MD [address] [place] [address] PCP - General Family Medicine 01/17/24 Argelia Cheng NP PCP - Alexx ME 03/29/24 Argelia Cheng NP Nurse Practitioner Family Medicine 11/10/23 documented as of this encounter
--- OUTSIDE RECORDS SUMMARY | 2024-10-10 16:39 | XMS_ITS | Encounter Summary ---
Author Organization [facility] Address [address] [place] [address] Care Team Providers Care Oliver Filter Operator Name Role Phone Argelia Cheng METEOROLOGICAL AIDE Unavailable [phone] Trace Kelly MD Primary Care Provider [phone] Argelia Cheng METEOROLOGICAL AIDE Unavailable [phone] Encounter Details Date Type Department Care Team (Late st Contact Info) Description 10/10/2024 Clinisync Result Encounter [facility] External Department Unsolicited Provider, Generic External Data Social History Tobacco Use Types Packs/Day Years Used Date Smoking Tobacco: Former Cigarettes 6 - 2015 Smokeless Tobacco: Never Alcohol Use [...] file 06/08/2024 How often do you attend [facility] or congregational services? 1 to 4 times per year [...] and heating? Not hard at all 06/08/2024 [facility] of Occupat ional Health - Occupational [...] any time in the past 12 m [place], were you homeless or living in a [...] 11/13/2024 1:40 PM EDT Office Visit [facility] [address] [place] [address] Nolvia Jimenez NP [address] [place] [address] documented as of this encounter Procedures Procedure Name Priority Date/Time Associated Diagnosis Comments ALL BASIC METABOLIC PANEL Routine 10/10/2024 10:27 AM EDT documented in this encounter Results * (ABNORMAL) ALL BASIC METABOLIC PANEL (10/10/2024 10:27 AM EDT) SODIUM 135(L) 136 - 145 mmol/L TBH POTASSIUM 5.1 3.5 - 5.1 mmol/L TB[facility] CHLORIDE 100 98 - 107 mmol/L TBH CARBON DIOXIDE 27.6 21.0 - 32.0 mmol/L TB[facility] ANION GAP 12.5 TBH GLUCOSE 100 74 - 106 mg/dL [facility] BLOOD UREA NITROGEN 23.0(H) 7.0 - 18.0 mg/dL TB[facility] CREATININE 1.51(H) 0.55 - 1.02 mg/dL TBH TBH EGFR-AF MAURITANIAN 41(L) >=60 mL/min/1.7 3m 2 TBH TBH EGFR-NON AF MAURITANIAN 34(L) >=60 mL/min/1.7 3m 2 TB[facility] BUN CREATININE RATIO 15.2 TBH CALCIUM 8.9 8.5 - 10.1 mg/dL TBH 10/10/2024 10:2 7 AM EDT 10/10/2024 10:27 AM EDT Narrative [facility] - 10/10/2024 11:16 AM EDT us Generic External Data Provider [facility] F inal Result [facility] TB documented in this encounter Visit Diagnoses Not on filedocumented in this encounter Care Teams Oliver Filter Operator Relationship Specialty Start Date End Date Trace Kelly MD [address] [place] [address] PCP - General Family Medicine 01/17/24 Argelia Cheng NP PCP - Alexx FLOWER 03/29/24 Argelia Cheng NP Nurse Practitioner Family Medicine 11/10/23 documented as of this encounter
--- OUTSIDE RECORDS SUMMARY | 2024-10-10 16:39 | XMS_ITS | Encounter Summary ---
Author Organization [facility] Address [address] [place] [address] Care Team Providers Care Nurse Practitioner Home Assessments Name Role Phone Nolvia Jimenez MD Primary Care Provider [phone] Brien Coughlin MD Unavailable Encounter Details Date Type Department Care Team (Late st Contact Info) Description 10/03/2024 Telephone [facility] [address] [place] [address] Milli Gutierrez MA Social History Tobacco Use Types Packs/Day Years Used Date Smoking Tobacco: Former Cigarettes Passive Smoke Exposure: Past Smokeless Tobacco: Never Alcohol Use Standard Drinks/Week Comments Yes 0 (1 standard drink = 0.6 oz pur e alcohol) occaisonal [facility] Utilities Answer Date Recorded In the past 12 months has [employer], gas, oil, or water [employer] threatened to shut off services in your [...] in the [facility] 12 m [facility], were you homeless or living in a snf (including now)? No 09/03/2024 Hunger Vital Sign [...] AM EDT documented as of this encounter Miscellaneous Notes * Telephone Encounter - Milli Gutierrez MA - 10/03/2024 2:36 PM EDT Spoke with patient and made her aware to stop spironolactone per Dr. Azevedo. She verbalized understanding and will do so. She will have repeat BMP on Wednesday, 10/09. Order faxed to [facility]. * Telephone Encounter - Milli Gutierrez MA - 10/03/2024 1:36 PM EDT Images from the original note were not included. Regarding lab results from 10/03/2024: MD Milli Luevano MA; Zack Villarreal, MARISA Her s.cr is 2.0! Whatever was started (Farxiga?) needs to be stopped and BMP repeated in 5 days. Please have her report any abnormal symptoms (difficulty urinating, dysuria, flank pain etc....) Thanks I see Zack saw her on 09/22/2024 and started her on spironolactone. Would you like her to stop both that and Farxiga? documented in this encounter Plan of Treatment Upcoming Encounters Date Type Department Care Team (Late st Contact Info) Description 11/20/2024 11:00 AM EDT Office Visit [facility] [address] [place] [address] PhilZack, REPRODUCTIVE SURGEON [address] [place] [address] Scheduled Orders Name Type Priority Associated Diagnoses Orde r Schedule Basic metabolic panel Lab Routine Acute on chronic systolic heart failure (CMS/HCC) Expected: 10/03/2024 (Approximate), Expires: 10/03/2025 documented as of this encounter Visit Diagnoses Diagnosis Acute on chronic systolic heart failure (CMS/HCC)- Primary Acute on chronic systolic heart failure documented in this encounter Care Teams Nurse Practitioner Home Assessments Relationship Specialty Start Date End Date Nolvia Jimenez MD [address] [place] [address] PCP - General Nurse Practitioner 06/15/24 Brien Coughlin MD [address] [place] [address] Pulmonary Disease 09/05/24 documented as of this encounter
--- OUTSIDE RECORDS SUMMARY | 2024-10-10 16:39 | XMS_ITS | Encounter Summary ---
Author Organization [facility] Address [address] [place] [address] Care Team Providers Care Comic Artist Name Role Phone Argelia Cheng ADJUNCT PROFESSOR Unavailable [phone] Trace Kelly MD Primary Care Provider [phone] Argelia Cheng ADJUNCT PROFESSOR Unavailable [phone] Encounter Details Date Type Department Care Team (Late st Contact Info) Description 10/03/2024 Clinisync Result Encounter [facility] External Department Unsolicited [...] file 06/08/2024 How often do you attend [facility] or denominational services? 1 to 4 times per year 06/08/2024 Do you belong to any clubs o r organizations such as mormonism groups, unions, fraternal or athletic groups, or [...] and heating? Not hard at all 06/08/2024 [facility] of Occupat ional Health - [...] 1:40 PM EDT Office Visit [facility] [address] [place] [address] Nolvia Jimenez NP [address] [place] [address] documented as of this encounter Procedures Procedure Name Priority Date/Time Associated Diagnosis Comments ALL BASIC METABOLIC PANEL Routine 10/03/2024 12:00 PM EDT documented in this encounter Results * (ABNORMAL) ALL BASIC METABOLIC PANEL (10/03/2024 12:00 PM EDT) SODIUM 132(L) 136 - 145 mmol/L TBH POTASSIUM 4.9 3.5 - 5.1 mmol/L TBH CHLORIDE 96(L) 98 - 107 mmol/L TBH CARBON DIOXIDE 29.1 21.0 - 32.0 mmol/L TBH ANION GAP 11.8 TBH GLUCOSE 115(H) 74 - 106 mg/dL TBH BLOOD UREA NITROGEN 31.0(H) 7.0 - 18.0 mg/dL TBH CREATININE 2.01(H) 0.55 - 1.02 mg/dL TBH TBH EGFR-AF IVORIAN 30(L) >=60 mL/min/1.7 3m 2 TBH TBH EGFR-NON AF IVORIAN 24(L) >=60 mL/min/1.7 3m 2 TBH BUN CREATININE RATIO 15.4 TBH CALCIUM 9.1 8.5 - 10.1 mg/dL TBH 10/03/2024 12:0 0 PM EDT 10/03/2024 12:02 PM EDT Narrative [facility] - 10/03/2024 12:22 PM EDT us Generic External Data Provider [facility] F inal Result [facility] TB documented in this encounter Visit Diagnoses Not on filedocumented in this encounter Care Teams Comic Artist Relationship Specialty Start Date End Date Trace Kelly MD [address] [place] [address] PCP - General Family Medicine 01/17/24 Argelia Cheng NP PCP - Alexx FLOWER 03/29/24 Argelia Cheng NP Nurse Practitioner Family Medicine 11/10/23 documented as of this encounter
--- OUTSIDE RECORDS SUMMARY | 2024-10-10 16:39 | XMS_ITS | Encounter Summary ---
Author Organization [facility] Address [address] [place] [address] Care Team Providers Care Home Demonstrator Name Role Phone Shaikh ROCAEL Larios Unavailable [phone] Argelia Cheng FORENSIC LOCKSMITH Unavailable Trace Kelly MD Primary Care Provider Argelia Cheng FORENSIC LOCKSMITH Unavailable [phone] Encounter Details Date Type Department Care Team (Late st Contact Info) Description 02/16/2024 Orders Only [facility] [address] [place] [address] Shaikh Larios MD [address] [facility] [address] Social History Tobacco Use Types Packs/Day Years Used Date Smoking Tobacco: Former Cigarettes - 2015 Smokeless Tobacco: Never Alcohol Use Standard Drinks/Week Comments Never 0 (1 standard drink = 0.6 oz pur e alcohol) [facility] [place] of Occupat ional Health - Occupational [...] Office Visit [facility] [address] [place] [address] Nolvia Jimenez NP [address] [place] [address] documented as of this encounter [...] on filedocumented in this encounter Care Teams Home Demonstrator Relationship Specialty Start Date End Date Shaikh Larios MD [address] [place] [address] PCP - Alexx FLOWER 04/29/23 03/28/24 Trace Kelly MD [address] [place] [address] PCP - General Family Medicine 01/17/24 Argelia Cheng NP PCP - Alexx FLOWER 03/29/24 Argelia Cheng NP [address] [place] [address] Nurse Practitioner Family Medicine 11/10/23 documented as of this encounter
--- OUTSIDE RECORDS SUMMARY | 2024-10-10 16:39 | XMS_ITS | Encounter Summary ---
Author Organization [facility] Address [address] [place] [address] Care Team Providers Care Water Pollution Control Technician Name Role Phone Shaikh ROCAEL Larios Unavailable [phone] Argelia Cheng NP Unavailable [phone] Trace Kelly MD Primary Care Provider [phone] Argelia Cheng NP Unavailable [phone] Encounter Details Date Type Department Care Team (Late st Contact Info) Description 01/26/2024 Clinisync Result Encounter [facility] External Department Unsolicited Provider, Generic External Data Social History Tobacco Use Types Packs/Day Years Used Date Smoking Tobacco: Former Cigarettes 986 - 2015 Smokeless Tobacco: Never Alcohol Use Standard Drinks/Week Comments Never 0 (1 standard drink = 0.6 oz pur e alcohol) [facility] of Occupat ional Health - Occupational Stress [...] 1:40 PM EDT Office Visit [facility] [address] [place] [address] Nolvia Jimenez, NIXON [address] [place] [address] documented as of this encounter Procedures Procedure Name Priority Date/Time Associated Diagnosis Comments CT LUNG SCREENING LOW DOSE 01/26/2024 6:07 AM EDT documented in this encounter Results * CT LUNG SCREENING LOW DOSE (01/26/2024 6:07 AM EDT) Anatomical Region Laterality Modality Other 01/26/2024 6:07 AM EDT Narrative 01/26/2024 6:09 AM EDT [address] [address] [address] Scan Report Signed Patient: CHIARA EDUARDO MR#: [id number] : 1955 Acct:[id number] Age/Sex: 68 / F ADM Date: 01/24/24 Loc: CARD Attending Dr: Luis Schumacher D.O. Ordering Physician: Luis Schumacher D.O. Date of Service: 01/24/24 Procedure(s): CT lung screening low-dose Accession Number(s): [id number] cc: ARGELIA CHENG [address] [address] Patient Name: CHIARA EDUARDO MRN: [id number] date: 1955 Sex: F Assigned Patient Location: CARD Current Patient Location: Accession/Order Number: [id number] Exam Date: 01/24/2024 15:00 Report Date: 01/26/2024 [...] M.D. Signed By: 01/26/24608 DD/ 6 TD/TT: Box Car Loader: Procedure Note Radiology, Radiologist, - 01/26/2024 [place] [address] CT Scan Report Signed Patient: CHIARA EDUARDO [facility]#: [id number] : 4Acct:[id number] Age/Sex: 68 / FADM Date: 01/24/24 Loc: CARD Attending Dr: Luis Schumacher D.O. Ordering Physician: Luis Schumacher D.O. Date of Service: 01/24/24 Procedure(s): CT lung screening low-dose Accession Number(s): [id number] cc: ARGELIA CHENG [address] [address] Patient Name: CHIARA EDUARDO MRN: [id number] date: 1955 Sex: F Assigned Patient Location: CARD Current Patient Location: Accession/Order Number: [id number] Exam Date: 01/24/2024 15:00 Report Date: 01/26/2024 [...] Matos M.D. Signed By:01/26/24608 DD/ 6 TD/TT: Box Car Loader: Generic External Data Provider [facility] IMAGING Final Result documented in this encounter Visit Diagnoses Not on filedocumented in this encounter Care Teams Water Pollution Control Technician Relationship Specialty Start Date End Date Shaikh Larios MD [address] [place] [address] PCP - Alexx FLOWER 04/29/23 03/28/24 Trace Kelly MD [address] [place] [address] PCP - General Family Medicine 01/17/24 Argelia Cheng NP PCP - Alexx FLOWER 03/29/24 Argelia Cheng NP [address] [place] [address] Nurse Practitioner Family Medicine 11/10/23 documented as of this encounter
--- OUTSIDE RECORDS SUMMARY | 2024-10-10 16:39 | XMS_ITS | Encounter Summary ---
Author Organization [facility] Address [address] [place] [address] Care Team Providers Care Railway Switch Operator Name Role Phone Argelia Cheng FURRIER DESIGNER Unavailable [phone] Trace Kelly MD Primary Care Provider Argelia Cheng FURRIER DESIGNER Unavailable [phone] Encounter Details Date Type Department Care Team (Late st Contact Info) Description 10/02/2024 Clinisync Result Encounter [facility] External Department Unsolicited [...] file 06/08/2024 How often do you attend [facility] or uatsdin services? 1 to 4 times per year 06/08/2024 Do you belong to any clubs o r organizations such as alevism groups, unions, fraternal or athletic groups, or [...] and heating? Not hard at all 06/08/2024 [facility] of Occupat ional Health - Occupational Stress [...] any time in the past 12 m onths, were you homeless or living in a [...] Visit [facility] [address] [place] [address] Nolvia Jimenez NP [address] [place] [address] documented as of this encounter Procedures Procedure Name Priority Date/Time Associated Diagnosis Comments ITP 10/02/2024 11:45 AM EDT documented in this encounter Results * ITP (10/02/2024 11:45 AM EDT) Anatomical Region Laterality Modality Other 10/02/2024 11:4 5 AM EDT Narrative 10/04/2024 10:08 AM EDT The [place] [id number] Cardiac Rehab Report Signed Patient: CHIARA JUARES MR#: [id number] : 1955 Acct:[id number] Age/Sex: 69 / F ADM Date: 10/03/24 Loc: CR Attending Dr: Abby Azevedo M.D. Ordering Physician: Brien Coughlin D.O. Date of Service: 10/02/24 Procedure(s): ITP Accession Number(s): [id number] cc: [facility] Test Date: 2024-10-02 Pat Name: CHIARA JUARES Department: Room: - Gender: Female [employer]: : 1955 Requested By: Brien Coughlin Order Number: [id number] Dane MD: Brien Coughlin Interpretive Statements Okay to proceed with outlined treatment plan. Electronically Signed On 10-04-2024 10:08:06 EDT by Brien Coughlin Dictated By: Brien Coughlin D.O. Signed By: 10/04/24 1008 10/04/24 1008 DD/ 1145 TD/TT: School Services Officer: Procedure Note Radiology, Radiologist, MD - 10/04/2024 [place] [address] Cardiac Rehab Report Signed Patient: CHIARA JUARES AMR#: [id number] : 1955cct:[id number] Age/Sex: 69 / FADM Date: 10/03/24 Loc: CR Attending Dr: Abby Azevedo M.D. Ordering Physician: Brien Coughlin D.O. 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 Electronically Signed On 10-04-2024 10:08:06 EDT by Brien Coughlin Dictated By: Brien Coughlin D.O. Signed By:10/04/24 1008 10/04/24 1008 DD/ 1145 TD/TT: School Services Officer: us Generic External Data Provider [facility]AG[facility] Final Result documented in this encounter Visit Diagnoses Not on filedocumented in this encounter Care Teams Railway Switch Operator Relationship Specialty Start Date End Date Trace Kelly MD [address] [place] [address] PCP - General Family Medicine 01/17/24 Argelia Cheng NP PCP - Alexx FLOWER 03/29/24 Argelia Cheng NP Nurse Practitioner Family Medicine 11/10/23 documented as of this encounter
--- OUTSIDE RECORDS SUMMARY | 2024-10-10 16:39 | XMS_ITS | Encounter Summary ---
Author Organization [facility] Healthcare Address [address] [place] [address] Care Team Providers Care Desk Pens Assembler Name Role Phone Argelia Cheng DIRECTOR DATA ANALYTICS Unavailable [phone] Trace Kelly MD Primary Care Provider [phone] Argelia Cheng DIRECTOR DATA ANALYTICS Unavailable [phone] Encounter Details Date Type Department Care Team (Late st Contact Info) Description 10/09/2024 Patient Outreach [facility] [address] [place] [address] Gillian Mcnulty MA [address] [place] [address] Social History Tobacco Use Types Packs/Day Years [...] often do you attend chur ch or gnosticist services? 1 to 4 times per year 06/08/2024 Do you belong to any clubs o r organizations such as taoism groups, unions, fraternal or athletic groups, or [...] and heating? Not hard at all 06/08/2024 [facility] of Occupat ional Health - Occupational Stress [...] time in the past 12 m [facility], were you homeless or living in a fci (including now)? No 06/08/2024 Comments Unknown Sex and Gender Information Value Date Recorded Sex Assigned at Not on file Legal Sex Female 3:02 PM EDT Gender Identity Not on file Sexual Orientation Not on file documented as of this encounter Progress Notes * Gillian Mcnulty MA - 10/09/2024 10:56 AM EDT Pt contacted for final monitor call. She said she is doing better but she has had some congestion and intermittent vomiting over the last week, Pt thought it was from doing some weeding outside but symptoms didn't improve. She has an appt tmro with METER ENGINEER to find out what's going on. She said she had some labs drawn for the firm administrator and they had her stop one of her water pills.Her kidneys were worse (stage 2) and she has to repeat the labs again tmro. She has had increased swelling in her legs after stopping the medication, but she is wearing compression hose to help with that. Her appetite has not been good, she said, she feels it's from all the drainage and makes her stomach upset. Pt feels she may have an ulcer or something and the congestion is a separate issue. Pt denies need for CCM at this time. Will forward message to PCP so she is up to date for pt's appt tmro as well. Monitor program closed at this time. documented in this encounter Plan of Treatment Upcoming Encounters Date Type Department Care Team (Late st Contact Info) Description 11/13/2024 1:40 PM EDT Office Visit [facility] [address] [place] [address] Nolvia Jimenez, NIXON [address] [place] [address] documented as of this encounter Visit Diagnoses Diagnosis Chronic obstructive pulmonary disease, unspecified COPD type (HCC)- Primary Essential (primary) hypertension Unspecified essential hypertension documented in this encounter Care Teams Desk Pens Assembler Relationship Specialty Start Date End Date Trace Kelly MD [address] [place] [address] PCP - General Family Medicine 01/17/24 Argelia Cheng NP PCP - Alexx FLOWER 03/29/24 Argelia Cheng NP Nurse Practitioner Family Medicine 11/10/23 documented as of this encounter
--- OUTSIDE RECORDS SUMMARY | 2024-10-10 16:39 | XMS_ITS | Encounter Summary ---
Author Organization [facility] Address [address] [place] [address] Care Team Providers Care Boat Master Name Role Phone Shaikh ROCAEL Larios Unavailable [phone] Argelia Cheng NP Unavailable [phone] Trace Kelly MD Primary Care Provider [phone] Argelia Cheng NP Unavailable [phone] Encounter Details Date Type Department Care Team (Late st Contact Info) Description 01/24/2024 Clinisync Result Encounter [facility] External Department Unsolicited Provider, Generic External Data Social History Tobacco Use Types Packs/Day Years Used Date Smoking Tobacco: Former Cigarettes - 2015 Smokeless Tobacco: Never Alcohol Use Standard Drinks/Week Comments Never 0 (1 standard drink = 0.6 oz pur e alcohol) [facility] [facility] - Occupational Stress [...] Visit [facility] [address] [place] [address] Nolvia Jimenez NP [address] [place] [address] documented as of this encounter Procedures Procedure Name Priority Date/Time Associated Diagnosis Comments RT PULMONARY FUNCTION TEST 01/24/2024 1:05 PM EDT documented in this encounter Results * RT PULMONARY FUNCTION TEST (01/24/2024 1:05 PM EDT) Anatomical Region Laterality Modality Other 01/24/2024 1:05 PM EDT Narrative 01/26/2024 5:54 PM EDT [place] [id number] Respiratory Report Signed Patient: CHIARA JUARES MR#: [id number] : 1955 Acct:[id number] Age/Sex: 68 / F ADM Date: 01/24/24 Loc: CARD Attending Dr: Brien Coughlin D.O. Ordering Physician: Brien Coughlin D.O. Date of Service: 01/24/24 Procedure(s): RT pulmonary function test Accession Number(s): [id number] cc: The [facility] Test Date: 2024-01-24 Pat Name: CHIAAR JUARES Department: Room: - Gender: Female Training Development Specialist: Frank Calderón RRT : 1955 Requested By: Brien Coughlin Order Number: [id number] Reading MD: Brien Coughlin Interpretive Statements Pulmonary [...] By: Brien Coughlin D.O. Signed By: 01/26/24 1759 DD/ 1305 TD/TT: Organ Installer: Procedure Note Radiology, Radiologist, - 01/26/2024 [place] [address] Respiratory Report Signed Patient: CHIARA JUARES AMR#: [id number] : 1955cct:[id number] Age/Sex: 68 / FADM Date: 01/24/24 Loc: CARD Attending Dr: Brien Coughlin D.O. Ordering Physician: Brien Coughlin D.O. Date of Service: 01/24/24 Procedure(s): RT pulmonary function test Accession Number(s): [id number] cc: [facility] Test Date: 2024-01-24 Pat Name: CHIARA JUARES Department: Room: - Gender: Female Training Development Specialist: Frank Calderón RRT : 1955 Requested By: Brien Coughlin Order Number: [id number] Dane MD: Brien Coughlin Interpretive Statements Pulmonary [...] D.O. Signed By:01/26/24 1754 DD/ 1305 TD/TT: Organ Installer: Generic External Data Provider [facility] Final Result documented in this encounter Visit Diagnoses Not on filedocumented in this encounter Care Teams Boat Master Relationship Specialty Start Date End Date Shaikh Larios MD [address] [place] [address] PCP - Alexx FLOWER 04/29/23 03/28/24 Trace Kelly MD [address] [place] [address] PCP - General Family Medicine 01/17/24 Argelia Cheng NP PCP - Alexx FLOWER 03/29/24 Argelia Cheng NP [address] [place] [address] Nurse Practitioner Family Medicine 11/10/23 documented as of this encounter
--- OUTSIDE RECORDS SUMMARY | 2024-10-10 16:39 | XMS_ITS | Encounter Summary ---
Author Organization [facility] Address [address] [place] [address] Care Team Providers Care Information Systems Administrator Name Role Phone Argelia Cheng PHYSICIAN REPRESENTATIVE Unavailable Trace Kelly MD Primary Care Provider [phone] Argelia Cheng PHYSICIAN REPRESENTATIVE Unavailable [phone] Encounter Details Date Type Department Care Team [...] How often do you attend [facility] or [facility]? 1 to 4 times per year 06/08/2024 Do you belong to any clubs o r organizations such as christian groups, unions, fraternal or athletic groups, or [...] and heating? Not hard at all 06/08/2024 [facility] - [...] living in a snf (including now)? No 06/08/2024 Comments Unknown Sex [...] Visit [facility] [address] [place] [address] Nolvia Jimenez NP [address] [place] [address] documented as of this encounter Procedures Procedure Name Priority Date/Time Associated Diagnosis Comments ITP 10/03/2024 12:45 PM EDT documented in this encounter Results * ITP (10/03/2024 12:45 PM EDT) Anatomical Region Laterality Modality Other 10/03/2024 12:4 5 PM EDT Narrative 10/04/2024 10:08 AM EDT The [address] [address] Cardiac Rehab Report Signed Patient: CHIARA JUARES MR#: [id number] : 1955 Acct:[id number] Age/Sex: 69 / F ADM Date: 10/03/24 Loc: CR Attending Dr: Abby Azevedo M.D. Ordering Physician: Brien Coughlin D.O. Date of Service: 10/03/24 Procedure(s): ITP Accession Number(s): [id number] cc: The [facility] Test Date: 2024-10-03 Pat Name: CHIARA JUARES Department: Room: - Gender: Female Public Transit Bus Driver: : 1955 Requested By: Brien Coughlin Order Number: [id number] Dane MD: Brien Coughlin Interpretive Statements Okay to proceed with outlined treatment plan. Electronically Signed On 10-04-2024 10:08:18 EDT by Brien Coughlin Dictated By: Brien Coughlin D.O. Signed By: 10/04/24 1008 10/04/24 1008 DD/ 1245 TD/TT: Fabric Machine Operator: Procedure Note Radiology, Radiologist, MD - 10/04/2024 [place] [address] Cardiac Rehab Report Signed Patient: CHIARA JUARES AMR#: [id number] : 1955cct:[id number] Age/Sex: 69 / FADM Date: 10/03/24 Loc: CR Attending Dr: Abby Azevedo M.D. Ordering Physician: Brien Coughlin D.O. Date of Service: 10/03/24 Procedure(s): ITP Accession Number(s): [id number] cc: [facility] Test Date: 2024-10-03 Pat Name: CHIARA JUARES Department: Room: - Gender: Female Public Transit Bus Driver: : 1955 Requested By: Brien Coughlin Order Number: [id number] Dane MD: Brien Coughlin Interpretive Statements Okay to proceed with outlined treatment plan. Electronically Signed On 10-04-2024 10:08:18 EDT by Brien Coughlin Dictated By: Brien Coughlin D.O. Signed By:10/04/24 1008 10/04/24 1008 DD/ 1245 TD/TT: Fabric Machine Operator: us Generic External Data Provider [facility] Final Result documented in this encounter Visit Diagnoses Not on filedocumented in this encounter Care Teams Information Systems Administrator Relationship Specialty Start Date End Date Trace Kelly MD [address] [place] [address] PCP - General Family Medicine 01/17/24 Argelia Cheng NP PCP - Alexx FLOWER 03/29/24 Argelia Cheng NP Nurse Practitioner Family Medicine 11/10/23 documented as of this encounter
--- OUTSIDE RECORDS SUMMARY | 2024-10-10 16:39 | XMS_ITS | Encounter Summary ---
Author Organization [facility] Address [address] [place] [address] Care Team Providers Care Accounts Payable Lead Name Role Phone Nolvia Jimenez MD Primary Care Provider [phone] Brien Coughlin MD Unavailable Reason for Visit * Reason Onset Date Comments Med Refill 10/06/2024 Encounter Details Date Type Department Care Team (Late st Contact Info) Description 10/06/2024 Refill [facility] [address] [place] [address] Oralia Jaramillo MA Pneumonia of right lower lobe due to infectious organism (Primary Dx) Social History Tobacco Use Types Packs/Day Years Used Date Smoking Tobacco: Former Cigarettes Passive Smoke Exposure: Past Smokeless Tobacco: Never Alcohol Use Standard Drinks/Week Comments Yes 0 (1 standard drink = 0.6 oz pur e alcohol) [facility] Util[facility] Answer Date Recorded In the past 12 months has e electric, gas, oil, or water company [...] any time in the past 12 [facility], were you homeless or living in a nursing home (including now)? No 09/03/2024 Hunger Vital Sign [...] AM EDT documented as of this encounter Plan of Treatment Upcoming Encounters Date Type Department Care Team (Late st Contact Info) Description 11/20/2024 11:00 AM EDT Office Visit [facility] [address] [place] [address] Zack Villarreal, RESEARCH PROFESSOR OF BIOSTATISTICS [address] [place] [address] documented as of this encounter Visit Diagnoses Diagnosis Pneumonia of right lower lobe due to infectious organism- Primary documented in this encounter Care Teams Accounts Payable Lead Relationship Specialty Start Date End Date Nolvia Jimenez MD [address] [place] [address] PCP - General Nurse Practitioner 06/15/24 Brien Coughlin MD [address] [place] [address] Pulmonary Disease 09/05/24 documented as of this encounter
--- OUTSIDE RECORDS SUMMARY | 2024-10-10 16:40 | XMS_ITS | Clinical Summary ---
Author Organization [facility] Address [address] [place] [address] Care Team Providers Care Primary Grade Teacher Name Role Phone Nolvia Jimenez MD Primary Care Provider [phone] Brien Coughlin MD Unavailable Allergies Active Allergy Reactions Criticality Noted Date Comments Clopidogrel 12/28/2016 Hydrochlorothiazide 12/28/2016 Exfoliative Dermatitis Penicillins 12/28/2016 Sodium Chloride 04/08/2023 Sulfa (Sulfonamide Antibiotics) Unknown 03/29 Vancomycin 12/28/2016 Medications aspirin 81 mg EC tablet Take 81 mg by mouth in the morning. 12/07/19 12 Active omeprazole (PriLOSEC) [address] capsule Take 20 mg by mouth before breakfast. 11/15/19 14 Active albuterol 90 mcg/actuation inhaler Inhale 2 puffs every 4 (four) hours if needed for shortness of breath. 01/28/20 22 Active cyclobenzaprine (Flexeril) 10 mg tablet Take 10 mg by mouth if needed in the morning, at noon, and at bedtime for muscle spasms. 09/23/19 23 Active cholecalciferol (Vitamin D-3) 50 MCG (1999) tablet Take 2,000 Units by mouth in the morning. Active ipratropium-albu teroL (Duo-Neb) 0.5-2.5 mg/3 mL nebulizer solution Take 3 mL by nebulization 4 times a day. Active atorvastatin (Lipitor) 80 mg tabletIndication s:Essential hypertension Take 1 tablet (80 mg) by mouth in the morning. 90 tablet 3 01/04/20 24 025 Active olmesartan (BENIcar) 40 mg tabletIndication s:Essential hypertension Take 1 tablet (40 mg) by mouth once daily as directed. 90 tablet 3 01/04/20 24 025 Active predniSONE (Deltasone) 10 mg tablet Take 10 mg by mouth in the morning. Active dupilumab (Dupixent Syringe) 100 mg/0.67 mL syringe Inject 300 mg under the skin every 14 (fourteen) days. Active isosorbide mononitrate ER (Imdur) 60 mg 24 hr tabletIndication s:Other chest pain Take 1 tablet (60 mg) by mouth once daily as directed. Do not crush or chew. 30 tablet 3 07/04/19 25 025 Active budesonide-glyco pyr-formoterol (Breztri Aerosphere) 160-9-4.8 mcg/actuation HFA aerosol inhaler Inhale 160 mcg in the morning. Active magnesium 200 mg tablet Take 1 tablet by mouth in the morning. Active nitroglycerin (Nitrostat) 0.4 mg SL tabletIndication s:Pneumonia of right lower lobe due to infectious organism Place 1 tablet (0.4 mg) under the tongue every 5 (five) minutes if needed for chest pain. 25 tablet 2 09/06/19 25 Active metoprolol succinate XL (Toprol-XL) 50 mg 24 hr tabletIndication s:hypertension Take 1 tablet (50 mg) by mouth two times daily. Do not crush or chew. 60 tablet 2 09/06/19 25 Active spironolactone (Aldactone) 25 mg tabletIndication s:Heart failure with mildly reduced ejection fraction (CMS/HCC) Take 1 tablet (25 mg) by mouth in the morning. 30 tablet 5 09/23/19 25 025 Active dapagliflozin propanediol (Farxiga) 10 mgIndications:Ch ronic heart failure with preserved ejection fraction (CMS/HCC) Take 1 tablet (10 mg) by mouth in the morning. 90 tablet 09/23/19 25 025 Active furosemide (Lasix) 20 mg tabletIndication s:Pneumonia of right lower lobe due to infectious organism Take 1 tablet (20 mg) by mouth in the morning. 90 tablet 3 10/07/19 25 Active dapagliflozin propanediol (Farxiga) 10 mgIndications:Ch ronic heart failure with preserved ejection fraction (CMS/HCC) Take 1 tablet (10 mg) by mouth in the morning. 30 tablet 3 07/04/19 25 025 Discontinu ed(Reorder ) furosemide (Lasix) 20 mg tabletIndication s:Pneumonia of right lower lobe due to infectious organism Take 1 tablet (20 mg) by mouth in the morning. 30 tablet 2 09/06/19 25 025 Discontinu ed(Reorder ) cefpodoxime (Vantin) 200 mg tabletIndication s:Pneumonia of right lower lobe due to infectious organism Take 1 tablet (200 mg) by mouth two times daily for 5 days. 10 tablet 09/06/19 25 025 Active Problems Problem Noted Date Diagnosed Date Elevated troponin 09/04/2024 Assessment & Plan (09/04/2024 12:39 PM EDT): Likely type II [place], supply/demand mismatch EKG shows sinus rhythm with [...] Patient was requiring nonrebreather upon arrival to [facility] - has been switched to high flow nasal cannula -Chest x-ray at [facility] showed right lower lobe pneumonia - 09/04/2024 x-ray done at [facility] was consistent with the previously mentioned [...] Patient was requiring nonrebreather upon arrival to [facility] - has been switched to high [...] 06/15/2024 Body mass index (BMI) 35.0-35.9, adult Irregular heartbeat 04/18/2024 Stage 3a chronic kidney disease 04/12/2023 Multiple pulmonary nodules 03/02/202303/02 PVC (premature ventricular contraction) 01/01/20 23 History of tobacco use 12/28/2022 3 Other snf (current) 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 3 12/28/2022 Non-sustained ventricular tachycardia 11/17/2022 Assessment & Plan (11/17/2022 2:13 PM EDT): Currently on amiodarone for rhythm control and toprol for rate control for NSVT and frequent PVCs Recent heart cath with non obstructive CAD- no intervention was needed RTC with EP for further management and evaluation. In light of COPD please determine with Dr Coughlin if ocean transportation intermediary amiodarone if feasible. Anemia 10/27/2022 Assessment & Plan (11/17/2022 2:13 PM EDT): Sent pt for CBC and pt to f/u with her PCP and bruise trimmer Hypomagnesemia 10/27/2022 Hyponatremia 10/27/2022 Arrhythmia 10/26/2022 Assessment & Plan (11/17/2022 2:11 PM EDT): Reviewed rhythm strips from Cardiac rehab and normal sinus rhythm, no PVCS noted or VT Chest pain 07/08/2022 Overview (07/08/2022): Added automatically from request for surgery [id number] Former smoker 01/22/2020 Health care maintenance 01/22/2020 Diuretic-induced hypokalemia 01/16/2018 History of acute inferior wall [place] 01/13/2018 Bladder prolapse, female, acquired 12/28/2016 Chronic [...] 72 hours. Coronary artery disease invo lving [place] coronary artery of [place] heart without angina pectoris 12/28/2016 Assessment & [...] Problem Noted Date Diagnosed Date Resolved Date longterm current use of inhaled steroid 12/28/2022 12/28/2022 06/29/2023 Encounters Date Type Department Care Team Description 10/06/[address] [address] Oralia Jaramillo MA Pneumonia of right lower lobe due to infectious organism (Primary Dx) 10/03/[address] [address] Milli Gutierrez MA 09/22/2024 1:00 PM EDT Follow-Up [address] [address] Zack Villarreal CNP Heart failure with mildly reduced ejection fraction (CMS/HCC) (Primary Dx); Bilateral lower extremity edema; Coronary artery disease involving [place] coronary artery of [place] heart without angina pectoris; Shortness of breath; Mixed hyperlipidemia; Benign hypertensive heart disease with heart failure (CMS/HCC); Chronic heart failure with preserved ejection fraction (CMS/HCC) 09/03/2024 4:20 PM EDT - 09/05/2024 2:27 PM EDT Hospital Encounter [facility] [address] [place] [address] Alireza Mcallister MD Saad, Hani, MD NSTEMI (non-ST elevated myocardial infarction) (CMS/HCC) (Primary Dx); Atrial flutter, unspecified type (CMS/HCC); Pneumonia of right lower lobe due to infectious organism; Chronic obstructive pulmonary disease, unspecified COPD type (CMS/HCC) Discharge Disposition: Home or Self Care (01) 09/03/2024 Travel 08/01/2024 11:15 AM EDT Office Visit [facility] [address] [facility] [place] [phone] Abby Azevedo MD Coronary artery disease involving [place] coronary artery of [place] heart without angina pectoris (Primary Dx); Non-sustained ventricular tachycardia (CMS/HCC); Chronic obstructive pulmonary disease, unspecified COPD type (CMS/HCC); Essential hypertension 07/25/2024 Telephone [facility] [address] [place] [address] Oralia Jaramillo MA 07/25/2024 Telephone [facility] [address] [place] [address] Oralia Jaramillo MA 07/25/2024 Telephone [facility] [address] [place] [address] Oralia Jaramillo MA 07/25/2024 Orders Only [facility] [address] [place] [address] Milli Gutierrez MA Benign hypertensive heart disease [...] = 0.6 oz pur e alcohol) occaisonal [facility] Utilities Answer Date Recorded In the [...] any time in the past 12 m [facility], were you homeless or [...] Description 11/20/2024 11:00 AM EDT Office Visit [facility] [address] [place] [address] Zack Villarreal, CAMP COUNSELOR [address] [place] [address] Health Maintenance Due Date Last Done Comments CT Colonography 1955 Colonoscopy 1955 FIT-DNA 1955 FOBT 1955 Medicare Annual Wellness (AWV) 1955 Sigmoidoscopy 1955 Diabetes: Retinopathy Screening 1963 Depression Screening 1965 Diabetes: Urine Protein Screening 1972 Pneumococcal Vaccine: 50+ Ye ars (1 of 2 - PCV) 1972 Adult Tetanus 1975 Mammogram 1993 Zoster Vaccines (1 of 2) 2003 COVID-19 Vaccine (2 - 2023-2 5 season) 2023 09/01/2020 Influenza Vaccine (#1) 2024 Diabetes: Hemoglobin A1C 12/04/2024 09/03/2024 Colorectal Cancer Screening 02/07/2025 FIT 02/07/2025 02/08/2024 [...] this topic Medical Devices Implanted Type Area Schedule [employer]anger Device Identifier Shelf Expiration Date Model / Serial / Lot Stent,Chuy Mr 2.50 X 12 - [id number] Implanted:Qty: 1 on 07/14/2022 by Abby Azevedo MD at [facility] Drug Eluting Stent [email or web address] [id number] 01/22/2023 [id number] / / [id number] Procedures Procedure Name Priority Date/Time Associated Diagnosis [...] - 10.60 10*3/uL 09/05/2024 5:05 AM EDT [facility] ([facility]) RBC 3.31(L) 3.80 - 5.00 10*6/uL 09/05/2024 5:05 AM EDT [facility] ([facility]) Hemoglobin 10.2(L) 12.0 - 15.0 g/dL 09/05/2024 5:05 AM EDT [facility] ([facility]) Hematocrit 31.9(L) 36.0 - 45.0 % 09/05/2024 5:05 AM EDT [facility] ([facility]) MCV 96.4 82.0 - 98.0 fL 09/05/2024 5:05 AM EDT [facility] ([facility]) MCH 30.8 27.0 - 33.0 pg 09/05/2024 5:05 AM EDT [facility] ([facility]) MCHC 32.0 32.0 - 35.0 g/dL 09/05/2024 5:05 AM EDT [facility] ([facility]) RDW 14.0 11.5 - 15.0 % 09/05/2024 5:05 AM EDT [facility] ([facility]) Platelets 247 150 - 400 10*3/uL 09/05/2024 5:05 AM EDT [facility] ([facility]) Blood Venous blood specimen / Unknown Venipuncture / Unknown 09/05/2024 4:06 AM EDT 09/05/2024 4:46 AM EDT us Viv Livingston MD LAB BLOOD ORDERABLES Final Resul t [facility] ([facility]) [address] [place] [address] * (ABNORMAL) Basic metabolic panel (09/05/2024 4:06 AM EDT) Only the most recent of2 resultswithin the time period is included. Sodium 134(L) 136 - 145 mmol/L 09/05/2024 5:20 AM EDT [facility] ([facility]) Potassium 4.2 3.5 - 5.1 mmol/L 09/05/2024 5:20 AM EDT [facility] ([facility]) Chloride 105 98 - 107 mmol/L 09/05/2024 5:20 AM EDT [facility] ([facility]) CO2 24 21 - 31 mmol/L 09/05/2024 5:20 AM EDT [facility] ([facility]) BUN 26(H) 7 - 25 mg/dL 09/05/2024 5:20 AM EDT [facility] ([facility]) Creatinine 1.24(H) 0.60 - 1.20 mg/dL 09/05/2024 5:20 AM EDT [facility] ([facility]) Glucose 92 70 - 100 mg/dL 09/05/2024 5:20 AM EDT [facility] ([facility]) Calcium 8.1(L) 8.6 - 10.3 mg/dL 09/05/2024 5:20 AM EDT [facility] ([facility]) Anion Gap 9 7 - 20 mmol/L 09/05/2024 5:20 AM EDT [facility] ([facility]) eGFR 46.5(L) >60.0 mL/min/1. 73m*2 09/05/2024 5:20 AM EDT [facility] ([facility]) Comment:[facility] s estimated glomerular filtration rate (eGFR) [...] BUN/Creatinine Ratio 21.0 08/27 5:20 AM EDT [facility] ([facility]) Blood Venous blood specimen / Unknown Venipuncture / Unknown 09/05/2024 4:06 AM EDT 09/05/2024 4:40 AM EDT us Viv Livingston MD LAB BLOOD ORDERABLES Final Resul t [facility] ([facility]) [address] [place] [address] * (ABNORMAL) Anti-Xa (Heparin Level) (09/04/2024 4:58 PM EDT) Only the most recent of3 resultswithin the time period is included. Anti-Xa (Heparin) <0.10(LL) 0.3 - 0.7 IU/mL 09/04/2024 6:20 PM EDT [facility] ([facility]) Comment:Rivaroxaban and Apix aban will interfere with the anti Xa assay used to monitor UFH and LMWH. Blood Venous blood specimen / Unknown Venipuncture / Unknown 09/04/2024 4:58 PM EDT 09/04/2024 5:37 PM EDT Alireza Mcallister MD LAB BLOOD ORDERABLES Final Resul t Performing Organization Address City/[facility]/ZIP Co de Phone Number [facility]) [address] [place] [id number] * SARS-CoV-2 PCR (09/04/2024 12:33 PM EDT) Pathologist [facility] SARS-CoV-2 PCR Negative Negative 09/04/2024 1:04 PM EDT [facility] ([facility]) Swab Nasal structure / Unknown Non-blood Collection / Unknown 09/04/2024 12:33 PM EDT 09/04/2024 12:38 PM EDT Narrative [facility] ([facility]) - 09/04/2024 1:04 PM EDT Testing methodology utilizes isothermal nucleic acid amplification technology for the differential and qualitative detection of SARS-CoV-2 viral nucleic acids. Viv Livingston MD LAB MICROBIOLOGY - GENERAL ORDER ADRIEN Final Result Performing Organization Address [facility] Co de Phone Number [address] [address] * Rapid influenza A/B PCR (09/04/2024 12:33 PM EDT) Rapid Influenza A PCR Negative Negative 09/04/2024 1:04 PM EDT [facility] ([facility]) Rapid Influenza B PCR Negative Negative 09/04/2024 1:04 PM EDT [facility] ([facility]) Swab Nasal structure / Unknown Non-blood Collection / Unknown 09/04/2024 12:33 PM EDT 09/04/2024 12:38 PM EDT Narrative [facility] ([facility]) - 09/04/2024 1:04 PM EDT Testing methodology utilizes isothermal nucleic acid amplification technology for the differential and qualitative detection of Influenza A and Influenza B viral nucleic acids. Viv Livingston MD LAB MICROBIOLOGY - GENERAL ORDER ADRIEN Final Result [facility] ([facility]) [address] [place] [address] * Mycoplasma pneumoniae PCR (09/04/2024 12:33 PM EDT) Mycoplasma Pneumoniae Source Not Provided 09/07/2024 7:14 PM EDT [facility] ([facility]) Comment: Specimen source was not provided. Please refer to the [facility] Test Directory for validated specimen source information: [email or web address]. Interpret results with caution. Mycoplasma pneumo by PCR Not Detected 09/07/2024 7:14 PM EDT [facility] ([facility]) Comment: NOT DETECTED - A negative result does not rule out the presence of PCR inhibitors in the patient specimen or assay specific nucleic acid in concentrations below the level of detection by the assay. INTERPRETIVE INFORMATION: Mycoplasma pneumoniae by PCR This test was developed and its performance characteristics determined by [facility]. It has not been cleared or approved by the [place] Food and Drug Administration. This test was performed in a CLIA certified laboratory and is intended for clinical purposes. Performed By: [facility] [address] [place] [address] [employer]jack Pit Boss: Amol Tran MD, PhD CLIA Number: [id number] Swab Nasopharyngeal structure / Unknown Non-blood Collection / Unknown 09/04/2024 12:33 PM EDT 09/04/2024 12:38 PM EDT Viv Livingston MD LAB MICROBIOLOGY - GENERAL ORDER ADRIEN Final Result [facility] ([facility]) [address] [place] [address] * Legionella antigen, urine (09/04/2024 12:11 PM EDT) Legionella Antigen, Urine NEGATIVE NEG 09/04/2024 8:22 PM EDT [facility] Comment: L. pneumophila serogroup 1 antigen not detected. A negative result does not exclude infection with Leginella pnemophila serogroup 1 nor does it rule out other microbial-caused respiratory infections of disease caused by other serogroups of Legionella pneumophila. Test Performed by [facility] [place] [address] - [employer]ov[employer] 09/04/2024 20:22 Urine Urine specimen obtained by clean catch procedure / Unknown Non-blood Collection / Unknown 09/04/2024 12:11 PM EDT 09/04/2024 12:18 PM EDT us Viv Livingston MD LAB URINE ORDERABLES Final Resul t [facility] [address] [place] [address] * Blood culture, peripheral #2 (09/04/2024 9:37 AM EDT) Only the most recent of2 resultswithin the time period is included. Blood Culture No growth at 5 days CALIN 09/09/2024 10:01 AM EDT [facility] ([facility]) Blood Venous blood specimen / Unknown Venipuncture / Unknown 09/04/2024 9:37 AM EDT 09/04/2024 9:49 AM EDT Viv Livingston MD LAB MICROBIOLOGY - GENERAL ORDER ADRIEN Final Result [facility] ([facility]) [address] [place], [place] [id number] * (ABNORMAL) High sensitivity CRP (09/04/2024 9:33 AM EDT) CRP, HIGH SENSITIVITY >300.0(H) <=3.0 mg/L 09/06/2024 1:25 PM EDT [facility] ([place]) Comment: INTERPRETIVE INFORMATION: CRP, High Sensitivity Patients [...] 3.0 mg/L ... high risk Performed By: [facility] [address] [place] [address] Blackjack Pit Boss: Amol Tran MD, PhD CLIA Number: [id number] Blood Venous blood specimen / Unknown Venipuncture / Unknown 09/04/2024 9:33 AM EDT 09/04/2024 9:57 AM EDT us Viv Livingston MD LAB BLOOD ORDERABLES Final Resul t [facility] ([facility]) [address] [place] [address] * LIMITED ECHO (TTE) W/ LIMITED DOPPLER, COLOR FLOW AND IMAGING AGENT (09/04/2024 8:22 AM EDT) Anatomical Region Laterality Modality Other 09/04/2024 8:05 AM EDT Narrative 09/04/2024 12:53 PM EDT [facility] [place] [facility] [address] [place] [address] [phone] (fax) Echocardiogram-[facility] Name: CHIARA EDUARDO Study Date: 09/04/2024 08:05 AM B/P: 103 mmHg/56 mmHg HR: Date of : 1955 Location: [facility] Height: 63 in. Age: 69 year(s) Patient [...] No pericardial effusion. Procedure Staff Reading Group: [facility] Chain Mender: Micahel Gonzalez RDCS Ordering Physician: ALIREZA MCALLISTER Procedure Note Rosendo Mustafa MD - 09/04/2024 1 1 [facility] [address] [place] [address] [phone] (fax) Echocardiogram-[facility] Name: CHIARA EDUARDO Study Date: 09/04/2024 08:05 AM B/P: 103 mmHg/56 mmHg HR: Date of : 1955 Location: [facility] Height: 63 in. Age: 69 year(s) Patient [...] No pericardial effusion. Procedure Staff Reading Group: [facility] Chain Mender: Michael Gonzalez RDCS Ordering Physician: ALIREZA MCALLISTER Alireza Mcallister MD CV ECHO PROCEDURES Final Result * (ABNORMAL) High Sensitivity Troponin I (09/04/2024 4:17 AM EDT) Only the most recent of4 resultswithin the time period is included. Pathologist [facility] High Sensitivity Troponin I 1,053(HH) <15 ng/L 09/04/2024 5:22 AM EDT [facility]) Blood Venous blood specimen / Unknown Venipuncture / Unknown 09/04/2024 4:17 AM EDT 09/04/2024 4:42 AM EDT Alireza Mcallister MD LAB BLOOD ORDERABLES Final Resul t [facility]) [address] [place], [place] [id number] * Sedimentation rate (09/04/2024 4:17 AM EDT) Pathologist [facility] Sed Rate 21 <30 mm/hr 09/04/2024 9:1 2 AM EDT [facility]) Blood Venous blood specimen / Unknown Venipuncture / Unknown 09/04/2024 4:17 AM EDT 09/04/2024 4:42 AM EDT Viv Livingston MD LAB BLOOD ORDERABLES Final Resul t [facility]) [address] [place], [place] [id number] * (ABNORMAL) Magnesium (09/04/2024 4:17 AM EDT) Only the most recent of2 resultswithin the time period is included. Magnesium 1.8(L) 1.9 - 2.7 mg/dL 09/04/2024 5:17 AM EDT [facility] ([facility]) Blood Venous blood specimen / Unknown Venipuncture / Unknown 09/04/2024 4:17 AM EDT 09/04/2024 4:42 AM EDT us Alireza Mcallister MD LAB BLOOD ORDERABLES Final Resul t [facility] ([facility]) [address] [place] [address] * Arterial blood gas with ionized calcium (09/04/2024 4:14 AM EDT) pH, Arterial 7.36 7.35 - 7.45 pH 09/04/2024 4:19 AM EDT [facility] RESPIRATORY THERAPY pCO2, Arterial 42 35 - 48 mmHg 09/04/2024 4:19 AM EDT [facility] RESPIRATORY THERAPY pO2, Arterial 92 83 - 100 mmHg 09/04/2024 4:19 AM EDT [facility] RESPIRATORY THERAPY HCO3, Arterial 23.7 21.0 - 28.0 mEq/L 09/04/2024 4:19 AM EDT [facility] RESPIRATORY THERAPY Calcium, Ion 1.20 1.15 - 1.33 mmol/L 09/04/2024 4:19 AM EDT [facility] RESPIRATORY THERAPY O2 Sat, Arterial 97.9 94.0 - 98.0 % 09/04/2024 4:19 AM EDT [facility] RESPIRATORY THERAPY Base Excess, Arterial -1.8 -2.0 - 3.0 mmol/L 09/04/2024 4:19 AM EDT [facility] RESPIRATORY THERAPY Source Of Oxygen High flow nasal cannula 09/04/2024 4:19 AM EDT [facility] RESPIRATORY THERAPY FiO2 40 % 09/04/2024 4:19 AM EDT [facility] RESPIRATORY THERAPY Blood Arterial blood specimen / Unknown Arterial Puncture / Unknown 09/04/2024 4:14 AM EDT 09/04/2024 4:14 AM EDT us Alireza Mcallister MD LAB BLOOD ORDERABLES Final Resul t [facility] RESPIRATORY THERAPY [address] [place] [address], [place] * (ABNORMAL) Lipoprotein A (LPA) (09/03/2024 9:20 PM EDT) Pathologist [facility] Lipoprotein (a) 33(H) <=29 mg/dL 1:25 PM EDT [facility] ([facility]) Comment: Performed By: [facility] [address] [place] [address] Blackjack Pit Boss: Amol Tran MD, PhD CLIA Number: [id number] Blood Venous blood specimen / Unknown Venipuncture / Unknown 09/03/2024 9:20 PM EDT 09/03/2024 10:01 PM EDT us Alireza Mcallister MD LAB BLOOD ORDERABLES Final Resul t [facility] ([facility]) [address] [place] [address] * Sputum culture (09/03/2024 8:16 PM EDT) Gram Stain Result 10-25 Squamous Epithelial Cells Per Low Power Field 09/07/2024 8:22 AM EDT [facility] ([facility]) Gram Stain Result >25 Polys Per Low Power Field 09/07/2024 8:22 AM EDT [facility] ([facility]) Gram Stain Result Few Gram positive cocci in pairs 09/07/2024 8:22 AM EDT [facility] ([facility]) Sputum (Sputum, Expectorated) 09/03/2024 8:16 PM EDT 09/03/2024 8:26 PM EDT Narrative [facility] ([facility]) - 09/07/2024 8:22 AM EDT Light Growth Colonies Consistent with Upper Respiratory Terrie us Alireza Mcallister MD LAB MICROBIOLOGY - GENERAL ORDER ADRIEN Final Result [facility] ([facility]) [address] [place] [address] * Lavender Top (09/03/2024 7:01 PM EDT) Pathologist [facility] Extra Tube Hold for add-ons. 09/03/2024 7:01 PM EDT [facility] [facility]) Comment:Auto resulted. Blood Venous blood specimen / Unknown Venipuncture / Unknown 09/03/2024 5:54 PM EDT Alireza Mcallister MD LAB BLOOD ORDERABLES Final Resul t Performing Organization Address City/[facility]/ZIP Co de Phone Number [facility] ([facility]) [address] [place] [address] * ECG 12 lead (09/03/2024 6:35 PM EDT) Only the most recent of2 resultswithin the time period is included. Ventricular Rate 93 BPM GE MUSE Atrial Rate 93 BPM GE MUSE OR Interval 138 ms GE MUSE QRS DURATION 76 ms GE MUSE QT Interval 354 ms GE MUSE QTC CALCULATION(BAZE TT) 440 ms GE MUSE P Bradford 69 degrees GE MUSE R-Bradford 35 degrees GE MUSE T Wave Bradford 45 degrees GE MUSE 09/03/2024 6:29 PM [...] Alireza Mcallister MD ECG ORDERABLES Final Result GE MUSE * Red Top (09/03/2024 5:53 PM EDT) Extra Tube Hold for add-ons. 09/03/2024 7:01 PM EDT [facility] ([facility]) Comment:Auto resulted. Blood Venous blood specimen / Unknown Venipuncture / Unknown 09/03/2024 5:53 PM EDT 09/03/2024 5:53 PM EDT us Alireza Mcallister MD LAB BLOOD ORDERABLES Final Resul t Performing Organization Address [facility] Co de Phone Number [facility] ([facility]) [address] [place] [address] * (ABNORMAL) aPTT - baseline (09/03/2024 5:33 PM EDT) aPTT 49.3(H) 25.0 - 35.0 Seconds 09/03/2024 6:24 PM EDT [facility] ([facility]) Comment:Clinical significanc e of the APTT is questionable in the presence of heparin. Blood Venous blood specimen / Unknown Venipuncture / Unknown 09/03/2024 5:33 PM EDT 09/03/2024 5:52 PM EDT us Alireza Mcallister MD LAB BLOOD ORDERABLES Final Resul t Performing Organization Address [facility] Co de Phone Number [facility] ([facility]) [address] [place] [address] * XR chest 1 view (09/03/2024 5:27 [...] 4 hour reflex (09/03/2024 5:09 PM EDT) [facility] Lactate 1.6 0.5 - 2.2 mmol/L 09/03/2024 5:59 PM EDT [facility] ([facility]) Blood Venous blood specimen / Unknown Venipuncture / Unknown 09/03/2024 5:09 PM EDT 09/03/2024 5:32 PM EDT us Alireza Mcallister MD LAB BLOOD ORDERABLES Final Resul t [facility] ([facility]) [address] [place] [address] * (ABNORMAL) CBC auto differential (09/03/2024 5:09 PM EDT) Pathologist [facility] Auto WBC 19.92(H) 4.00 - 10.60 10*3/uL 09/03/2024 5:49 PM EDT [facility] ([facility]) RBC 3.95 3.80 - 5.00 10*6/uL 09/03/2024 5:49 PM EDT [facility] ([facility]) Hemoglobin 12.3 12.0 - 15.0 g/dL 09/03/2024 5:49 PM T [facility] ([facility]) Hematocrit 38.3 36.0 - 45.0 % 09/03/2024 5:49 PM T [facility] ([facility]) MCV 97.0 82.0 - 98.0 fL 09/03/2024 5:49 PM [facility] ([facility]) MCH 31.1 27.0 - 33.0 pg 09/03/2024 5:49 PM [facility] ([facility]) MCHC 32.1 32.0 - 35.0 g/dL 09/03/2024 5:49 PM [facility] ([facility]) RDW 13.8 11.5 - 15.0 % 09/03/2024 5:49 PM [facility] ([facility]) Neutrophils % 93.3(H) 40.0 - 72.0 % 09/03/2024 5:49 PM [facility] ([facility]) Lymphocytes % 1.4(L) 20.0 - 45.0 % 09/03/2024 5:49 PM [facility] ([facility]) Monocytes % 3.4(L) 5.0 - 12.0 % 09/03/2024 5:49 PM [facility] ([facility]) Eosinophils % 1.2 0.0 - 6.0 % 09/03/2024 5:49 PM [facility] ([facility]) Basophils % 0.2 0.0 - 1.0 % 09/03/2024 5:49 PM [facility] ([facility]) Neutrophils Absolute 18.60(H) 1.60 - 7.60 10*3/uL 09/03/2024 5:49 PM [facility] ([facility]) Lymphocytes Absolute 0.28(L) 1.20 - 4.00 10*3/uL 09/03/2024 5:49 PM [facility] ([facility]) Monocytes Absolute 0.67 0.10 - 1.00 10*3/uL 09/03/2024 5:49 PM [facility] ([facility]) Eosinophils Absolute 0.24 0.00 - 0.50 10*3/uL 09/03/2024 5:49 PM EDT [facility] ([facility]) Basophils Absolute 0.03 0.00 - 0.20 10*3/uL 09/03/2024 5:49 PM EDT [facility] ([facility]) Platelets 272 150 - 400 10*3/uL 09/03/2024 5:49 PM EDT [facility] ([facility]) nRBC % 0.0 0 % 09/03/2024 5:49 PM EDT [facility] ([facility]) Immature Granulocytes % 0.5 0.0 - 1.0 % 09/03/2024 5:49 PM EDT [facility] ([facility]) Immature Granulocytes Absolute 0.10 0.00 - 0.20 10*3/uL 09/03/2024 5:49 PM EDT [facility] ([facility]) Blood Venous blood specimen / Unknown Venipuncture / Unknown 09/03/2024 5:09 PM EDT 09/03/2024 5:40 PM EDT us Alireza Mcallister MD LAB BLOOD ORDERABLES Final Resul t [facility]) [address] [place] [address] * (ABNORMAL) B-type natriuretic peptide (09/03/2024 5:09 PM EDT) BNP 708(H) 0 - 100 pg/mL 09/03/2024 6:09 PM EDT [facility] ([facility]) Blood Venous blood specimen / Unknown Venipuncture / Unknown 09/03/2024 5:09 PM EDT 09/03/2024 5:40 PM EDT us Alireza Mcallister MD LAB BLOOD ORDERABLES Final Resul t [facility]) [address] [place] [address] * (ABNORMAL) Hemoglobin A1c (09/03/2024 5:09 PM EDT) Hemoglobin A1C 6.6(H) 4.0 - 6.0 % 09/04/2024 9:06 AM EDT [facility] ([facility]) Estimated Average Glucose 143 mg/dL 09/04/2024 9:06 AM EDT [facility] ([facility]) Blood Venous blood specimen / Unknown Venipuncture / Unknown 09/03/2024 5:09 PM EDT 09/03/2024 5:40 PM EDT us Alireza Mcallister MD LAB BLOOD ORDERABLES Final Resul t [facility]) [address] [place] [address] * Lipid panel (09/03/2024 5:09 PM EDT) Pathologist [facility] Triglycerides 44 <150 mg/dL 09/03/2024 6:44 PM EDT [facility] ([facility]) Comment: TRIGLYCERIDE REFERENCE RANGE: 20 YEARS AND OLDER CARDIOVASCULAR RISK LESS THAN 150 mg/dL LOW RISK 150 TO 199 mg/dL BORDERLINE RISK 200 mg/dL AND GREATER HIGH RISK Cholesterol 125 120 - 200 mg/dL 09/03/2024 6:44 PM EDT [facility] ([facility]) LDL Calculated 46 0 - 160 mg/dL 09/03/2024 6:44 PM EDT [facility] ([facility]) HDL 70 23 - 92 mg/dL 09/03/2024 6:44 PM EDT [facility] ([facility]) Non HDL Cholesterol 55 09/03/2024 6:44 PM EDT [facility] ([facility]) Total VLDL-C 9 0 - 40 mg/dL 09/03/2024 6:44 PM EDT [facility] ([facility]) Cholesterol/HDL Ratio 1.8 mg/dL 09/03/2024 6:44 PM EDT [facility] ([facility]) Blood Venous blood specimen / Unknown Venipuncture / Unknown 09/03/2024 5:09 PM EDT 09/03/2024 5:40 PM EDT us Alireza Mcallister MD LAB BLOOD ORDERABLES Final Resul t [facility] ([facility]) [address] [place] [address] * (ABNORMAL) Comprehensive metabolic panel (09/03/2024 5:09 PM EDT) Sodium 134(L) 136 - 145 mmol/L 09/03/2024 6:09 PM EDT [facility] ([facility]) Potassium 4.8 3.5 - 5.1 mmol/L 09/03/2024 6:09 PM EDT [facility] ([facility]) Chloride 103 98 - 107 mmol/L 09/03/2024 6:09 PM EDT [facility] ([facility]) CO2 25 21 - 31 mmol/L 09/03/2024 6:09 PM EDT [facility] ([facility]) Anion Gap 11 7 - 20 mmol/L 09/03/2024 6:09 PM EDT [facility] ([facility]) BUN 29(H) 7 - 25 mg/dL 09/03/2024 6:09 PM EDT [facility] ([facility]) Creatinine 1.48(H) 0.60 - 1.20 mg/dL 09/03/2024 6:09 PM EDT [facility] ([facility]) BUN/Creatinine Ratio 19.6 /10/2024 6:09 PM EDT [facility] ([facility]) Glucose 130(H) 70 - 100 mg/dL 09/03/2024 6:09 PM EDT [facility] ([facility]) Calcium 8.3(L) 8.6 - 10.3 mg/dL 09/03/2024 6:09 PM EDT [facility] ([facility]) AST 25 13 - 39 U/L 09/03/2024 6:09 PM EDT [facility] ([facility]) ALT (SGPT) 19 7 - 52 U/L 09/03/2024 6:09 PM EDT [facility] ([facility]) Alkaline Phosphatase 54 34 - 104 U/L 09/03/2024 6:09 PM EDT [facility] ([facility]) Total Protein 6.0 6.0 - 8.3 g/dL 09/03/2024 6:09 PM EDT [facility] ([facility]) Albumin 3.6 3.5 - 5.7 g/dL 09/03/2024 6:09 PM EDT [facility] ([facility]) Total Bilirubin 0.4 0.3 - 1.0 mg/dL 09/03/2024 6:09 PM EDT [facility] ([facility]) eGFR 37.6(L) >60.0 mL/min/1. 73m*2 09/03/2024 6:09 PM EDT [facility] ([facility]) Comment:[facility] s estimated glomerular filtration rate (eGFR) [...] MD LAB BLOOD ORDERABLES Final Resul t [facility] ([place]) [address] [place] [address] from Last 3 Months Insurance [employer] Advance Directives * Full Code [...] 12:10 PM 07/14/2022 6:57 PM Care Teams Primary Grade Teacher Relationship Specialty Start Date End Date Nolvia Jimenez MD [address] [place] [address] PCP - General Nurse Practitioner 06/15/24 Brien Coughlin MD [address] [place] [address] Pulmonary Disease 09/05/24
--- OUTSIDE RECORDS SUMMARY | 2024-10-10 16:40 | XMS_ITS | Encounter Summary ---
Author Organization [employer] Address [facility] [id number] [address] [place] [address] Care Team Providers Care Director Clinical Data Name Role Phone Milvia Gay APRN-REAL ESTATE PROCESSOR Primary Care Provider [phone] Encounter Details Date Type Department Care Team (Late st Contact Info) Description 10/25/2019 Telephone PROMEDIC PHYSICIAN FAMILY MEDICINE [address] [place] [phone] Milvia Gay APRN-CNP [address] [place] [phone] Social History Tobacco Use Types Packs/Day Years [...] Answer Date Recorded PHQ-2 Score 0 04/07/2018 [facility] - [...] documented as of this encounter Care Teams Director Clinical Data Relationship Specialty Start Date End Date Milvia Gay APRN-MARISA [address] [place] [address] PCP - General Family Medicine 01/16/19 06/13/20 documented as of this encounter
--- OUTSIDE RECORDS SUMMARY | 2024-10-10 16:40 | XMS_ITS | Patient Health Record ---
Author Organization [facility] in [place] Address [address] [place] [address] Care Team Providers Care Melt Room Operator Name Role Phone Nolvia Jimenez CNP Primary Care Provider Unavail able Luis Schumacher Unavailable [phone] Allergies Allergen (clinical drug ingredient) Drug/Non Drug [...] Results Component Value Reference Range Notes CT Chest Low Dose for Screen ing* Reviewed date:01/26/2024 06:53:52 AM Interpretation: Performing Lab: Notes/Report: RT pulmonary function test Reviewed date:01/26/2024 06:02:20 PM Interpretation: Performing Lab: Notes/Report: Source Facility: [place] [address] [place] [address] Respiratory Report Signed Patient: CHIARA JUARES MR#: [id number] : 1955 Acct:[id number] Age/Sex: 68 / F ADM Date: 01/24/24 Loc: CARD Attending Dr: Luis Schumacher D.O. Ordering Physician: Luis Schumacher D.O. Date of Service: 01/24/24 Procedure(s): RT pulmonary function test Accession Number(s): [id number] cc: [facility] Test Date: 2024-01-24 Pat Name: CHIARA JUARES Department: Room: - Gender: Female Bookstore Clerk: Frank Calderón RRT : 1955 Requested By: Luis Schumacher Order Number: [id number] Reading MD: Luis Schumacher Interpretive Statements Pulmonary [...] Signed By: 01/26/24 1754 DD/ 1305 TD/TT: Clinical Psychology Teacher: [place] [address] Respiratory Report Signed Patient: DELVIN JUARES MR#: [id number] : 1955 Acct:[id number] Age/Sex: 68 / F ADM Date: 01/24/24 Loc: CARD Attending Dr: Luis Schumacher D.O. Ordering Physician: Luis Schumacher D.O. Date of Service: 01/24/24 Procedure(s): RT pulmonary function test Accession Number(s): [id number] cc: [facility] Test Date: 2024-01-24 Pat Name: CHIARA BARRIGA Department: 57 Room: - Gender: Female Bookstore Clerk: Frank Calderón RRT : 1955 Requ ested By: Luis Schumacher Order Number: [id number] Reading MD: Luis Schumacher Interpretive Statements Pulmonary [...] Signed By: 01/26/24 1754 DD/ 1305 TD/TT: Clinical Psychology Teacher: HEMOGLOBIN Reviewed date:01/25/2024 07:12:59 AM Interpretation: Performing Lab: Notes/Report: [facility] , Hemoglobin 11.0 12.0-16.0 g/dL Performing Lab: see note ML - [facility] LB CT lung screening low-dose Reviewed date:01/26/2024 06:55:01 AM Interpretation: Performing Lab: Notes/Report: Source Facility: [facility]-[address] [place] [address] [place] [address] CT Scan Report Signed Patient: CHIARA JUARES MR#: [id number] : 1955 Acct:[id number] Age/Sex: 68 / F ADM Date: 01/24/24 Loc: CARD Attending Dr: Luis Schumacher D.O. Ordering Physician: Luis Schumacher D.O. Date of Service: 01/24/24 Procedure(s): CT lung screening low-dose Accession Number(s): [id number] cc: [facility] [place] [address] Patient Name: CHIARA JUARES MRN: [id number] date: 1955 Sex: F Assigned Patient Location: CARD Current Patient Location: Accession/Order Number: [id number] Exam Date: 01/24/2024 15:00 Report Date: 01/26/2024 [...] M.D. Signed By: 01/26/24608 DD/ 6 TD/TT: Clinical Psychology Teacher: [place] [address] CT Scan Report Signed Patient: DELVIN JUARES MR#: [id number] : 1955 Acct:[id number] Age/Sex: 68 / F ADM Date: 01/24/24 Loc: CARD Attending Dr: Luis Schumacher D.O. Ordering Physician: Luis Schumacher D.O. Date of Service: 01/24/24 Procedure(s): CT belkys g screening low-dose Accession Number(s): [id number] cc: [facility] [place] [address] Patient Name: CHIARA JUARES MRN: [id number] date: 1955 Sex: F Assigned Patient Location: CARD Current Patient Location: Accession/Order Numb er: [id number] Exam Date: 15:00 Report Date: 01/26/2024 06:07 [...] M.D. Signed By: 01/26/24608 DD/ 6 TD/TT: Clinical Psychology Teacher: TRACIE Reviewed date:10/04/2024 10:42:09 AM Interpretation: Performing Lab: Notes/Report: Source Facility: [place] [address] [place] [address] Cardiac Rehab Report Signed Patient: CHIARA JUARES MR#: [id number] : 1955 Acct:[id number] Age/Sex: 69 / F ADM Date: 10/03/24 Loc: CR Attending Dr: Abby Azevedo M.D. Ordering Physician: Luis Schumacher D.O. Date of Service: 10/03/24 Procedure(s): TRACIE Accession Number(s): [id number] cc: [facility] Test Date: 2024-10-03 Pat Name: CHIARA JUARES Department: Room: - Gender: Female Bookstore Clerk: : 1955 Requested By: Luis Schumacher Order Number: [id number] Dane MD: Luis Schumacher Interpretive Statements Okay to proceed with outlined treatment plan. Electronically Signed On 10-04-2024 10:08:18 EDT by Luis Schumacher Dictated By: Luis Schumacher D.O. Signed By: 10/04/24 1008 10/04/24 1008 DD/ 1245 TD/TT: Clinical Psychology Teacher: [place] [address] Cardiac Rehab Report Signed Patient: DELVIN JUARES MR#: [id number] : 1955 Acct:[id number] Age/Sex: 69 / F ADM Date: 10/03/24 Loc: CR Attending Dr: Abby Azevedo M.D. Ordering Physician: Luis Schumacher D.O. Date of Service: 10/03/24 Procedure(s): ITP Accession Number(s): [id number] cc: [facility] Test Date: 2024-10-03 Pat Name: CHIARA BARRIGA Department: 57 Room: - Gender: Female Bookstore Clerk: : 1955 Requ ested By: Luis Schumacher Order Number: [id number] Reading MD: Luis Schumacher Interpretive Statements Okay to proceed with outlined treatment plan. Electronically Ivon d On 10-04-2024 10:08:18 EDT by Luis Schumacher Dictated By: Tam Schumacher D.O. Signed By: 10/04/24 1008 10/04/24 1008 DD/ 44 TD/TT: Clinical Psychology Teacher: TRACIE Reviewed date:10/04/2024 10:42:13 AM Interpretation: Performing Lab: Notes/Report: Source Facility: [place] [address] [place] [address] Cardiac Rehab Report Signed Patient: CHIARA JUARES MR#: [id number] : 1955 Acct:[id number] Age/Sex: 69 / F ADM Date: 10/03/24 Loc: CR Attending Dr: Abby Azevedo M.D. Ordering Physician: Luis Schumacher D.O. Date of Service: 10/02/24 Procedure(s): ITP Accession Number(s): [id number] cc: [facility] Test Date: 2024-10-02 Pat Name: CHIARA JUARES Department: Room: - Gender: Female Bookstore Clerk: : 1955 Requested By: Luis Schumacher Order Number: [id number] Dane MD: Luis Schumacher Interpretive Statements Okay to proceed with outlined treatment plan. Electronically Signed On 10-04-2024 10:08:06 EDT by Luis Schumacher Dictated By: Luis Schumacher D.O. Signed By: 10/04/24 1008 10/04/24 1008 DD/ 1145 TD/TT: Clinical Psychology Teacher: [place] [address] Cardiac Rehab Report Signed Patient: DELVIN JUARES MR#: [id number] : 1955 Acct:[id number] Age/Sex: 69 / F ADM Date: 10/03/24 Loc: CR Attending Dr: Abby Azevedo M.D. Ordering Physician: Luis Schumacher D.O. Date of Service: 10/02/24 Procedure(s): ITP Accession Number(s): [id number] cc: [facility] Test Date: 2024-10-02 Pat Name: CHIARA BARRIGA Department: 57 Room: - Gender: Female Bookstore Clerk: : 1955 Requested By: Luis Schumacher Order Number: [id number] Dane MD: Luis Schumacher Interpretive Statements Okay to proceed with outlined treatment plan. Electronically Ivon d On 10-04-2024 10:08:06 EDT by Luis Schumacher Dictated By: Tam Schumacher D.O. Signed By: 10/04/24 1008 10/04/24 1008 DD/ 1145 TD/TT: Clinical Psychology Teacher: Reason For Referral Reason Palliative care serv ices for severe COPD Diagnosis 1 COPD (chronic obstru ctive pulmonary disease) (J44.9) Referral Organization [facility] [place] Referring Provider First Name Luis Referring Provider Last Name Ced Referring Provider Speciality Pulmonolog y Referred Provider Specialty Palliative C are General Notes Chandu Rodriguez 05/04 08:23:43 AM >Referral form and clinicals faxed to [facility] Chandu Rodriguez [...] 90 days Active Vitamin D 50 MCG (2000 UT) [...] Problem Status W/U Status Risk Notes Problem 278952456 Chronic obstructive pulmonary disease, unspecified (J44.9) Active confirmed Problem 431074482 Obesity, unspecified (E66.9) Active confirmed Problem Chronic respiratory failure (93286541) Chronic respiratory failure with hypoxia (J96.11) Active confirmed Problem Long-term current use of inhaled steroid (780708781) shelter (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 of inhaled steroids (Z79.51) Active confirmed Problem 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.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 Problem COPD - Chronic obstructive pulmonary disease (59319103) COPD (chronic obstructive pulmonary disease) (J44.9) Active confirmed Problem Coronary artery disease (41940122) CAD (coronary artery disease) (I25.10) Active confirmed Problem Multiple pulmonary nodules (828254710) Multiple pulmonary nodules (R91.8) Active confirmed Problem Ex-tobacco user (finding) (546266131) History of tobacco abuse (Z87.891) Active confirmed Problem Old myocardial infarction (1064871) History of non-ST elevation myocardial infarction (NSTEMI) (I25.2) Active confirmed Problem 997757593 Body mass index [BMI] 35.0-35.9, adult (Z68.35) Active confirmed Vital Signs Heart Rate 92 /min 09/12/2024 3L O2 Activity/Resting RA- Resting Temperature 97.0 degrees Fahrenheit 09/12/2024 3L O2 Activity/Resting RA- Resting Respiratory Rate 20 /min 09/12/2024 3L O2 Activity/Resting RA- Resting Oximetry 93 % 09/12/2024 3L O2 Activity/Resting RA- Resting Blood pressure diastolic 75 mm Hg 09/12/2024 3L O2 Activity/Resting RA- Resting Height 63 in 09/12/2024 3L O2 Activity/Resting RA- Resting Blood pressure systolic 118 mm Hg 09/12/2024 3L O2 Activity/Resting RA- Resting Weight 195.6 lbs 09/12/2024 3L O2 Activity/Resting RA- Resting BMI 34.65 kg/m2 09/12/2024 3L O2 Activity/Resting RA- Resting Encounters Encounter Location Date Provider Diagnosis [facility] [address] [address] 02/01/2024 Luis Schumacher COPD (chronic obstructive pulmonary disease) J44.9 ; Multiple pulmonary nodules R91.8 ; History of tobacco abuse Z87.891 ; Encounter for screening for malignant neoplasm of respiratory organs Z12.2 ; CAD (coronary artery disease) I25.10 ; shelter (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 of systemic steroids Z79.52 ; shelter (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 of inhaled steroids Z79.51 ; Obesity, unspecified E66.9 and Body mass index [BMI] 35.0-35.9, adult Z68.35 [facility] [address] [address] 05/03/2024 Luis Schumacher COPD (chronic obstructive pulmonary disease) J44.9 ; Multiple pulmonary nodules R91.8 ; History of tobacco abuse Z87.891 ; CAD (coronary artery disease) I25.10 ; 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 supervisor (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 of inhaled steroids Z79.51 ; Obesity, unspecified E66.9 and Body mass index [BMI] 35.0-35.9, adult Z68.35 [facility] [address] [address] 08/01/2024 Luis Schumacher COPD (chronic obstructive pulmonary disease) J44.9 ; Multiple pulmonary nodules R91.8 ; History of tobacco abuse Z87.891 ; 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 supervisor (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 of systemic steroids Z79.52 ; 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 supervisor (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 of inhaled steroids Z79.51 and Obesity, unspecified E66.[address] [address] [address] 08/23/2024 Luis Schumacher COPD (chronic obstructive pulmonary disease) J44.9 ; Multiple pulmonary nodules R91.8 ; History of tobacco abuse Z87.891 ; shelter (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 of systemic steroids Z79.52 ; shelter (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 of inhaled steroids Z79.51 and Obesity, unspecified E66.9 [facility] [place] [address] [place] [address] 09/12/2024 Luis Schumacher COPD (chronic obstructive pulmonary disease) J44.9 ; Chronic respiratory failure with hypoxia J96.11 ; Multiple pulmonary nodules R91.8 ; History of non-ST elevation myocardial infarction (NSTEMI) I25.2 ; History of tobacco abuse Z87.891 ; shelter (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 of systemic steroids Z79.52 ; 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 supervisor (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 of inhaled steroids Z79.51 and Obesity, unspecified E66.9 [facility] [place] [address] [facility] [place] [address] 05/23/2024 Luis [facility] COPD (chronic obstructive pulmonary disease) J44.9 [facility] [place] [address] [place] [address] 09/07/2024 [facility] [place] [address] [facility] [place] [address] 01/04/2024 [facility]monary [facility] [address] [facility] [place] [address] 01/24/2024 [facility]monary [facility] [address] [facility] [place] [address] 05/11/2024 [facility] Pulmonary [facility] [address] [facility] [place] [address] 05/17/2024 [facility] Pulmonary [facility] [address] [place] [facility] [place] [address] 09/06/2024 [facility] COPD (chronic obstructive pulmonary disease) J44.9 Assessments [...] remains on generic Advair. Assess patient for [place] valves. Her PFT shows FEV1 of 43%, [...] I stated I would have the interventional it risk and assurance senior manager make that determination. -Pulmonary rehabilitation: She is [...] did not want to go to another it risk and assurance senior manager, she wants to stay here with me. I explained that it is only for the procedure - I will still be her local it risk and assurance senior manager. She did not want to persue endobronchial [...] I offered to refer her to either [facility] (e.g. Dr. Heard) or (e.g. Dr. Siddiqui), [...] reactions were noted. Post Injection Vitals taken. [facility] [place]:[id number] 0. Lot#[id number]. Exp:11/26/2024. Patient was advised to self administer [...] respiratory failure with hypoxia (ICD-10 - J96.11) Rjgl-vg-wczk encounter performed with the patient to document [...] monitoring d/t the NSTEMI and reduced EF. Tnvi-ea-uuzu encounter performed with the patient to document [...] artery disease) (ICD-10 - I25.10) F/U with [facility] Cardiology. 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 Restart cardiac rehab, F/U with [facility] Cardiology. 09/12/2024 History of tobacco abuse (ICD-10 - Z87.891) 1ppd x 50 years, quit 2017 LDCT 01/24/2024 - RADS-2. LDCT due 12/2024. 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 05/03/2024 shelter (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 of inhaled steroids (ICD-10 - Z79.51) Patient was counseled to rinse & gargle with water after inhaled corticosteroid use. 02/01/2024 CAD (coronary artery disease) (ICD-10 - I25.10) F/U with [facility] Cardiology. 02/01/2024 shelter (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 of systemic steroids (ICD-10 - Z79.52) Discussed adverse effects of terminal worker systemic steroids including, but not limited to: [...] loss indicated: Decrease calories, increase activity. 08/23/2024 shelter (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 of inhaled steroids (ICD-10 - Z79.51) Patient was counseled to rinse & gargle with water after inhaled corticosteroid use. 09/12/2024 shelter (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 of systemic steroids (ICD-10 - Z79.52) Discussed adverse effects of terminal worker systemic steroids including, but not limited to: increased risk of cataracts, elevated blood sugars/worsening of underlying diabetes mellitus, impaired wound healing, gastrointestinal ulcers, osteoporosis. 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 08/23/2024 Obesity, unspecified (ICD-10 - E66.9) Patient's weight is inducing a restrictive pulmonary physiology. Weight loss indicated: Decrease calories, increase activity. 05/03/2024 Body mass index [BMI] 35.0-35.9, adult (ICD-10 - Z68.35) 02/01/2024 shelter (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 of inhaled steroids (ICD-10 - [...] Name:Luis Schumacher, 11/22/2024 11:30:00 AM, [address] [place], [address], Insurance Providers Payer Name Payer Address Payer Phone Subscriber Number Group Number Insured Name Patient Relationship to Insured Coverage Start Date Coverage End Date [employer]AN [address] [place] [address] [phone] [id number] [facility] 0 Chiara Juares Self - patient is [...] hypoxia J96.11 History of tobacco abuse Z87.891 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
--- OUTSIDE RECORDS SUMMARY | 2024-10-10 16:40 | XMS_ITS ---
Author Organization [facility] Address [address] [facility] [place] [address] Care Team Providers Care Consulting Practice Manager Name Role Phone Argelia Cheng PLANT MAINTENANCE SUPERVISOR Unavailable Trace Kelly MD Primary Care Provider [phone] Argelia Cheng PLANT MAINTENANCE SUPERVISOR Unavailable [phone] 30 Day Monitoring Program Status:Closed (Closed) Start date:09/06/2024 Enrollment date:09/06/2024 Enrollment reason:Identified using hospital discharge data End date:10/09/2024 Close reason:Assistance not needed Continued Care and Services Coordination
--- OUTSIDE RECORDS SUMMARY | 2024-10-10 16:40 | XMS_ITS | Encounter Summary ---
Author Organization [facility] Address [address] [place] [address] Care Team Providers Care Nutrition Representative Name Role Phone Argelia Cheng PODIATRY DOCTOR Unavailable [phone] Trace Kelly MD Primary Care Provider [phone] Argelia Cheng PODIATRY DOCTOR Unavailable [phone] Encounter Details Date Type Department Care Team (Late st Contact Info) Description 05/03/2024 Orders Only [facility] [address] [place] [address] Shaikh Larios MD [address] [facility] [place] [address] Social History Tobacco Use Types Packs/Day Years Used Date Smoking Tobacco: Former Cigarettes 986 - 2016 Smokeless Tobacco: Never Alcohol Use Standard Drinks/Week Comments Never 0 (1 standard drink = 0.6 oz pur e alcohol) [facility] Filer of Occupat ional Health - Occupational Stress [...] Office Visit [facility] [address] [place] [address] Nolvia Jimenez NP [address] [place] [address] documented as of this encounter Procedures Procedure [...] on filedocumented in this encounter Care Teams Nutrition Representative Relationship Specialty Start Date End Date Trace Kelly MD [address] [place] [address] PCP - General Family Medicine 01/17/24 Argelia Cheng NP PCP - Alexx FLOWER 03/29/24 Argelia Cheng NP Nurse Practitioner Family Medicine 11/10/23 documented as of this encounter
--- OUTSIDE RECORDS SUMMARY | 2024-10-10 16:41 | XMS_ITS | Encounter Summary ---
Author Organization [facility] Address [address] [place] [address] Care Team Providers Care Bottle Labeler Name Role Phone Argelia Cheng PAYROLL ACCOUNTING SPECIALIST Unavailable [phone] Trace Kelly MD Primary Care Provider [phone] Argelia Cheng PAYROLL ACCOUNTING SPECIALIST Unavailable [phone] Encounter Details Date Type Department Care Team (Late st Contact Info) Description 09/04/2024 Orders Only [facility] [address] [place] [address] Adan Parmar MD [address] [place] [phone] (Work) Social History Tobacco Use [...] often do you attend chur ch or baptism services? 1 to 4 times per year 06/08/2024 Do you belong to any clubs o r organizations such as restorationism groups, unions, fraternal or athletic groups, or [...] and heating? Not hard at all 06/08/2024 [facility] Vowinckel of Occupat ional Health - Occupational Stress [...] any time in the past 12 m [address] [place], were you homeless or living in a fpc (including now)? No 06/08/2024 Comments Unknown Sex and Gender Information Value Date Recorded Sex Assigned at Not on file Legal Sex Female 3:02 PM EDT Gender Identity Not on file Sexual Orientation Not on file documented as of this encounter Plan of Treatment Upcoming Encounters Date Type Department Care Team (Late Contact Info) Description 11/13/2024 1:40 PM EDT Office Visit [facility] [address] [place] [address] Nolvia Jimenez NP [address] [place] [address] documented as of this encounter Procedures Procedure [...] on filedocumented in this encounter Care Teams Bottle Labeler Relationship Specialty Start Date End Date Trace Kelly MD [address] [place] [address] PCP - General Family Medicine 01/17/24 Argelia Cheng NP PCP - Alexx FLOWER 03/29/24 Argelia Cheng NP Nurse Practitioner Family Medicine 11/10/23 documented as of this encounter
--- OUTSIDE RECORDS SUMMARY | 2024-10-10 16:41 | XMS_ITS | Clinical Summary ---
Author Organization [facility] Address [address] [place] [address] Care Team Providers Care Psychologists Name Role Phone Argelia Cheng CLAIM INSPECTOR Unavailable [phone] Trace Kelly MD Primary Care Provider [phone] Argelia Cheng CLAIM INSPECTOR Unavailable [phone] Allergies Active Allergy Reactions Criticality Noted Date [...] Do not crush, chew, or split.. Active ipratropium-albut manjit (Duo-Neb) 0.5-2.5 mg/3 mL nebulizer solution Take 3 mL by nebulization every 6 (six) hours Active albuterol HFA 90 mcg/act inhaler Inhale 2 puffs every 4 (four) hours if needed for wheezing Active cholecalciferol (Vitamin D-3) 25 MCG (1000 UT) tabletIndications :Stage 3a chronic kidney disease (CMS-HCC) Take 1 tablet (25 mcg) by mouth Daily 60 tablet 1 01/18/20 24 Active MAGNESIUM PO Take 200 mg by [...] 50 mg before bedtime. 06/01/19 25 Active predniSONE (Deltasone) 10 MG tablet 06/08/19 25 Active furosemide (Lasix) 20 MG tabletIndications :Edema Take 20 mg by mouth every other day Active cyclobenzaprine (Flexeril) 10 MG tabletIndications :Chronic low back pain, unspecified back pain laterality, unspecified whether sciatica present Take 0.5 tablets (5 mg) by mouth 3 (three) times a day as needed for muscle spasms for up to 15 days 45 tablet 1 06/09/19 25 Active dapagliflozin (Farxiga) 10 MG Take 10 [...] needed for chest pain 09/06/19 25 Active spironolactone (Aldactone) 25 MG tablet Take 25 mg by mouth in the morning. Active atorvastatin (Lipitor) 80 MG tabletIndications :Other hyperlipidemia Take 1 tablet (80 mg) by mouth at bedtime 90 tablet 1 10/11/19 25 026 Active atorvastatin (Lipitor) 80 MG tabletIndications :Other hyperlipidemia Take 1 tablet (80 mg) by mouth Daily 90 tablet 1 04/03/19 Discontinu ed(Reorder ) ranolazine (Ranexa) 500 MG 12 hr tablet Take 500 mg by mouth in the morning and 500 mg in the evening. 05/23/19 Discontinu ed(Therapy completed) Budeson-Glycopyrr ol-Formoterol (Breztri Aerosphere) 160-9-4.8 MCG/ACT aerosol Inhale 160 mcg in the morning. Discontinu ed(Therapy completed) cefpodoxime (Vantin) 200 MG tablet Take 200 mg by mouth in the morning and 200 mg in the evening. 09/06/19 Active Problems Problem Noted Date Diagnosed Date Chronic respiratory failure 10/10/2024 Other hyperlipidemia 10/10/2024 Type 2 diabetes mellitus without complications 0 10/10/2024 Assessment & Plan (10/10/2024 6:53 AM EDT): HTN, HLD Acute hypoxic respiratory failure 09/03/2024 Assessment & [...] excess calories 0 06/08/2024 Assessment & Plan (10/10/2024 6:49 AM EDT): Discussed with patient their BMI (actual, verses recommended). We have also discussed lifestyle modifications: attempts to perform physical activity as chronic conditions allow, also to monitor dietary intake: increasing protein/fruits/veggies and lowering carb intake (unless contraindicated). Limit sodas, juices, and sugary drinks. Assessment & Plan (09/06/2024 6:44 PM EDT): [...] albuterol, trelegy, Under the care of pulmonology [facility] Coronary artery disease invo lving karluk coronary artery of karluk heart without angina pectoris 12/28/2016 Overview (04/12/2023): Last Assessment & Plan: Coronary artery disease is stable without any concerning symtpoms Continue GDMT- ASA, brilinta, toprol, imdur continue risk factor modifications- heart healthy diet, regular exercise as tolerated and continue all medications. Assessment & Plan (09/06/2024 6:43 PM EDT): Reviewed cardiology notes from [facility] Did not feel elevated trop was related to AL Assessment & Plan (06/08/2024 7:39 AM EDT): Under the care of cardiology Current meds: statin, asa, imdur, b shyam, arb, diuretic, and ranexa Aggressive risk factor modification Assessment & Plan (04/12/2023 2:53 PM EST): Stable. No CP, SOB, palpitations. On ASA, Effient, BB, statin Follows [facility] cardiology. Lower back pain 12/28/2016 Assessment & [...] Encounters Date Type Department Care Team Description 10/10/2024 3:40 PM EDT Office Visit [facility] [address] [place] [address] Nolvia Jimenez, NIXON Morbid (severe) obesity due to excess calories ([facility]) (Primary Dx); Other hyperlipidemia ; Type 2 diabetes mellitus without complications (HCC); Emphysema, unspecified (HCC) 10/10/2024 Clinisync Result Encounter [facility] External Department Unsolicited Provider, Generic External Data 10/09/2024 Patient Outreach [place] [address] [place] [address] Gillian Mcnulty MA 10/06/2024 Travel 10/03/2024 Clinisync Result Encounter [facility] External Department Unsolicited Provider, Generic External Data 10/03/2024 Clinisync Result Encounter [facility] External Department Unsolicited Provider, Generic External Data 10/02/2024 Clinisync Result Encounter [facility] External Department Unsolicited Provider, Generic External Data 10/02/2024 Patient Outreach [place] [address] [place] [address] Gillian Mcnulty MA 09/18/2024 Patient Outreach [place] [address] [place] [place] [address] Gillian Mcnulty MA 09/12/2024 Patient Outreach [place] [address] [place] [address] Gillian Mcnulty MA 09/06/2024 3:00 PM EDT Office Visit [facility] [address] [place] [address] Nolvia Jimenez NP Pneumonia of right lower lobe due to infectious organism (Primary Dx); Acute hypoxic respiratory failure (HCC); Coronary artery disease involving karluk coronary artery of karluk heart without angina pectoris ; Essential (primary) hypertension ; Chronic kidney disease, stage 3b ([facility]); Morbid (severe) obesity due to excess calories ([facility]) 09/06/2024 Patient Outreach [place] [address] [place] [address] Lovely Cruz LPN 09/04/2024 Orders Only [facility] [address] [place] [address] Adan Parmar MD 09/04/2024 Abstract [facility] [address] [place] [address] Nolvia Jimenez, CLAIM INSPECTOR 09/03/2024 Clinisync Result Encounter [facility] External Department Unsolicited Provider, Generic External Data 08/02/2024 Clinisync Result Encounter [facility] External Department Unsolicited Nolvia Jimenez, CLAIM INSPECTOR 07/27/2024 External Result Encounter [facility] External Department Unsolicited Nolvia Jimenez, CLAIM INSPECTOR 07/26/2024 Orders Only [facility] [address] [place] [address] Nolvia Jimenez, CLAIM INSPECTOR Leukocytosis, unspecified type (Primary Dx); CRP elevated 07/26/2024 Clinisync Result Encounter [facility]S External Department Unsolicited Genesis Jimeneza, CLAIM INSPECTOR 07/26/2024 Orders Only [facility] [address] [place] [address] Genesis Jimeneza, CLAIM INSPECTOR Leukocytosis, unspecified type (Primary Dx) 07/25/2024 Clinisync [...] often do you attend chur ch or tenriism services? 1 to 4 times per year [...] and heating? Not hard at all 06/08/2024 [facility] [place] of Occupat ional Health - Occupational Stress [...] time in the past 12 m [facility], were you homeless or living in a m[facility]p (including now)? No 06/08/2024 Comments Unknown Sex [...] (196 lb) 10/10/2024 3:51 PM EDT Height 160 cm (5' 3 ) 04/26/2024 3:02 PM EST Body Mass Index 34.72 04/26/2024 3:02 PM EST Plan of Treatment Upcoming Encounters Date Type Department Care Team (Late st Contact Info) Description 11/13/2024 1:40 PM EDT Office Visit [facility] [address] [place] [address] Nolvia Jimenez NP [address] [place] [address] Health Maintenance Due Date Last Done Comments CT Colonography 1955 Colonoscopy 1955 FIT 1955 FOBT 1955 Lung Cancer Screening Shared Decision Making 1955 Sigmoidoscopy 1955 Diabetes: Retinopathy Screening 1963 Diabetes: Urine Protein Screening 01/10/2019 01/10/2018 Influenza Vaccine (#1) 2024 Diabetes: Hemoglobin A1C 12/04/2024 09/03/2024, 06/0 10/2024 Medicare Annual Wellness (AWV) 01/16/2025 01/17/2024, 01/17/2024, 01/14/2023, Additional history exists Pneumococcal Vaccine: 65+ Years (1 of 2 - PCV) 01/16/2025 Postponed from 1972 (Patient Refused) Colorectal Cancer Screening 02/14/2027 FIT-DNA 02/14/2027 02/15/2024, 02/08/2024 Mammogram Discontinued Procedures Procedure Name Priority Date/Time Associated Diagnosis Comments ALL BASIC METABOLIC PANEL Routine 10/10/2024 10:27 AM EDT ITP 10/03/2024 12:45 PM EDT ALL BASIC METABOLIC PANEL Routine 10/03/2024 12:00 PM EDT ITP 10/02/2024 11:45 AM EDT XR CHEST 1 VIEW Routine 09/04/2024 11:24 AM EDT BLOOD CULTURE 2 Routine 09/03/2024 5:52 AM EDT BLOOD CULTURE 1 Routine 09/03/2024 4:58 AM EDT ALL C REACTIVE PROTEIN Routine 11:15 AM EDT ALL CBC WITH AUTO DIFF Routine 11:15 AM EDT ALL C REACTIVE PROTEIN Routine 12:05 PM EDT [facility] CMP (CMP) (FOR REMOTE [facility] USE) Routine 07/26/2024 12:05 PM EDT ALL SED RATE Routine 07/26/2024 12:05 PM EDT ALL CBC WITH AUTO DIFF Routine 12:05 PM EDT URINE CULTURE - [facility] Routine 07/26/2024 11:55 AM EDT TBH UA [...] to Health Maintenance Results * (ABNORMAL) ALL BASIC METABOLIC PANEL (10/10/2024 10:27 AM EDT) Only the most recent of3 resultswithin the time period is included. SODIUM [...] 0.55 - 1.02 mg/dL TBH TBH EGFR-AF ALBANIAN 41(L) >=60 mL/min/1.7 3m 2 TBH TBH EGFR-NON AF ALBANIAN 34(L) >=60 mL/min/1.7 3m 2 TBH BUN CREATININE RATIO 15.2 TBH CALCIUM 8.9 8.5 - 10.1 mg/dL TBH 10/10/2024 10:2 7 AM EDT 10/10/2024 10:27 AM EDT Narrative [facility]IN[facility] - 10/10/2024 11:16 AM EDT us Generic External Data Provider [facility] (10/03/2024 12:45 PM EDT) Only the most recent of2 resultswithin the time period is included. Anatomical Region Laterality Modality Other 10/03/2024 12:4 5 PM EDT Narrative 10/04/2024 10:08 [place] [address] Cardiac Rehab Report Signed Patient: CHIARA EDUARDO MR#: [id number] : 1955 Acct:[id number] Age/Sex: 69 / F ADM Date: 10/03/24 Loc: CR Attending Dr: Abby Azevedo M.D. Ordering Physician: Brien Coughlin D.O. Date of Service: 10/03/24 Procedure(s): ITP Accession Number(s): [id number] cc: [facility] Test Date: 2024-10-03 Pat Name: CHIARA EDUARDO Department: Room: - Gender: Female Hazardous Waste Technician: : 1955 Requested By: Brien Coughlin Order Number: [id number] Dane MD: Brien Coughlin Interpretive Statements Okay to proceed with outlined treatment plan. Electronically Signed On 10-04-2024 10:08:18 EDT by Brien Coughlin Dictated By: Brien Coughlin D.O. Signed By: 10/04/24 1008 10/04/24 1008 DD/ 1245 TD/TT: Mold Tooling Technician: Procedure Note Radiology, Radiologist, MD - 10/04/2024 [place] [address] Cardiac Rehab Report Signed Patient: CHIARA EDUARDO AMR#: [id number] : 1955cct:[id number] Age/Sex: 69 / FADM Date: 10/03/24 Loc: CR Attending Dr: Abby Azevedo M.D. Ordering Physician: Brien Coughlin D.O. Date of Service: 10/03/24 Procedure(s): ITP Accession Number(s): [id number] cc: [facility] Test Date: 2024-10-03 Pat Name: CHIARA EDUARDO Department: Room: - Gender: Female Hazardous Waste Technician: : 1955 Requested By: Brien Coughlin Order Number: [id number] Dane MD: Brien Coughlin Interpretive Statements Okay to proceed with outlined treatment plan. Electronically Signed On 10-04-2024 10:08:18 EDT by Brien Coughlin Dictated By: Brien Coughlin D.O. Signed By:10/04/24 1008 10/04/24 1008 DD/ 1245 TD/TT: Mold Tooling Technician: us Generic External Data Provider [facility] IMAGING Final Result * XR chest 1 view (09/04/2024 11:24 AM EDT) Anatomical Region Laterality Modality Chest Radiographic Mary Beth ging Adan Parmar MD IMG XR PROCEDURES Final Result * BLOOD CULTURE 2 (09/03/2024 5:52 AM EDT) BLOOD CULTURE 2 Blood Culture 2 NG5D NO GROWTH AT 5 DAYS.^NO GROWTH AT 5 DAYS. TB 09/03/2024 5:52 AM EDT 09/03/2024 5:57 AM EDT Narrative [facility]IN[facility] - 09/08/2024 2:45 PM EDT Generic External Data Provider LAB BLOOD ORDERAB LES Final Result [facility] * BLOOD CULTURE 1 (09/03/2024 4:58 AM EDT) Pathologist [facility] BLOOD CULTURE 1 Blood Culture 1 NG5D NO GROWTH AT 5 DAYS.^NO GROWTH AT 5 DAYS. [facility] 09/03/2024 4:58 AM EDT 09/03/2024 5:52 AM EDT Narrative CLINISYLA - 09/08/2024 2:45 PM EDT Generic External Data Provider LAB BLOOD ORDERAB LES Final Result Performing Organization Address City/[facility]/ZIP Co de Phone Number [facility] * (ABNORMAL) ALL CBC WITH AUTO DIFF (08/02/2024 11:15 AM EDT) Only the most recent of3 resultswithin the time period is included. TB WBC 10.7 4.0 - 11.0 10 3/uL TBH TB RBC 3.93(L) 4.20 - 5.40 10 6/uL TBH TBH HGB 12.4 12.0 - 16.0 g/dL TB TB HCT 38.4 36.0 - 48.0 % TBH TBH MCV 97.7 81.0 - 99.0 fL TBH TB MCH 31.6 26.7 - 34.0 pg [...] EDT Nolvia Jimenez NP CLINISYNC Final Result [facility] * ALL C REACTIVE PROTEIN (08/02/2024 11:15 AM EDT) Only the most recent of2 resultswithin the time period is included. C REACTIVE PROTEIN <0.50 <=0.50 mg/dL TBH 08/02/2024 11:1 5 AM EDT 08/02/2024 11:23 AM EDT Narrative CLINISYNC - 08/02/2024 12:17 PM EDT us Nolvia Jimenez CLAIM INSPECTOR CLINISYNC Final Result CLINISYNC TB * (ABNORMAL) [facility] CMP (CMP) (FOR REMOTE [facility] USE) (07/26/2024 12:05 PM EDT) [...] 0.55 - 1.02 mg/dL TBH TBH EGFR-AF ALBANIAN 39(L) >=60 mL/min/1. 73m 2 TBH TBH EGFR-NON AF ALBANIAN 32(L) >=60 mL/min/1. 73m 2 TBH BUN [...] - 07/26/2024 12:30 PM EDT Nolvia Jimenez CLAIM INSPECTOR CLINISYNC Final Result CLINISYNC TBH * (ABNORMAL) ALL SED RATE (07/26/2024 12:05 PM EDT) TB SED RATE 46(H) <=30 mm/hr TB 07/26/2024 12:0 5 PM EDT 07/26/2024 12:06 PM EDT Narrative CLINISYNC - 07/26/2024 12:14 PM EDT us Nolvia Jimenez NP CLINISYNC Final Result Performing Organization Address City/[facility]/ZIP Co de Phone Number [facility] * URINE CULTURE - FR (07/26/2024 11:55 AM EDT) Pathologist [facility] URINE CULTURE - FR Urine Culture - [facility] 50,000 colonies/ml mixed [facility] URINE CULTURE - [facility] bacterial skin contaminants [facility] URINE CULTURE - [facility] 2 Days [facility] URINE CULTURE - [facility] URINE CULTURE - [facility] Testing performed at [facility] URINE CULTURE - [facility] [address] [place] [address] [facility] 07/26/2024 11:5 5 AM EDT 07/26/2024 12:06 PM EDT Narrative CLINISYNC - 07/31/2024 9:29 AM EDT us Nolvia Jimenez NP LAB BLOOD ORDERABLES Final Resu lt Performing Organization Address City/[facility] Co de Phone Number [facility] * (ABNORMAL) TBH UA (CLEAN/CATCH) MICROSCOPIC IF INDICATE (07/26/2024 11:55 AM EDT) Pathologist [facility] COLOR URINE LT. YELLOW YELLOW TBH CLARITY [...] * Urine culture (07/26/2024 11:53 AM EDT) [facility] NOTE 50,000 colonies/ml mixed bacterial skin contaminants 2 Days 08/07/2024 9:51 AM EDT [facility] Urine Urine specimen obtained by clean catch procedure / Unknown 07/26/2024 11:53 AM EDT 07/27/2024 1:15 PM EDT Nolvia Jimenez NP LAB MICROBIOLOGY - GENERAL PONDERAdelina [facility] Final Result Performing Organization Address City/[facility] Co de Phone Number [facility] [address] [place] [address], [facility] [address] [place] [address] * (ABNORMAL) MHPT DIFFERENTIAL (07/25/2024 11:15 AM EDT) [facility] SEGMENTED NEUTROPHILS % MANUAL 87.0(H) 43.0 - [...] F inal Result CLINISYNC TBH * (ABNORMAL) HMHP PTH, INTRAOPERATIVE (07/17/2024 11:55 AM EDT) PTH, INTACT 68(A) 15 - 65 pg/mL TBH Comment: Performed at: [facility] [address] [id number] Groundhand: True Herron PhD, Phone: [phone] 07/17/2024 11:5 5 AM EDT 07/17/2024 11:57 AM EDT Narrative CLINISYNC - 07/18/2024 12:08 PM EDT Generic External Data Provider CLINISYNC F inal Result Performing Organization Address City/[facility]/ZIP Co de Phone Number [facility] TB * (ABNORMAL) [facility] CBC WITH PLATELET NO DIFFERENTIAL [...] CLINISYNC F inal Result CLIN[facility]NC TB * ALL URIC ACID (07/17/2024 11:55 AM EDT) URIC ACID 5.0 2.6 - 6.0 mg/dL TB 07/17/2024 11:5 5 AM EDT 07/17/2024 11:57 AM EDT Narrative CLINISYNC - 07/17/2024 2:22 PM EDT Generic External Data Provider CLINISYNC F inal Result Performing Organization Address City/[facility] Co de Phone Number CLIN[facility]NC [facility] * (ABNORMAL) ALL RENAL FUNCTION PANEL (07/17/2024 [...] 0.55 - 1.02 mg/dL TBH TBH EGFR-AF ALBANIAN 43(L) >=60 mL/min/1.7 3m 2 TBH TBH EGFR-NON AF ALBANIAN 36(L) >=60 mL/min/1.7 3m 2 TBH BUN CREATININE RATIO 13.9 TBH CALCIUM 8.8 8.5 - 10.1 mg/dL TBH PHOSPHORUS 3.2 2.6 - 4.7 mg/dL TBH ALBUMIN LEVEL 3.4 3.4 - 5.0 g/dL TBH 07/17/2024 11:5 5 AM EDT 07/17/2024 11:57 AM EDT Narrative CLINISYNC - 07/17/2024 2:22 PM EDT Generic External Data Provider CLINISYNC F inal Result CLINISYNC TB * ALL MAGNESIUM (07/17/2024 11:55 AM EDT) MAGNESIUM 2.1 1.8 - 2.4 mg/dL TBH 07/17/2024 11:5 5 AM EDT 07/17/2024 11:57 AM EDT Narrative CLINISYNC - 07/17/2024 2:22 PM EDT Generic External Data Provider CLINISYNC F inal Result Performing Organization Address [facility] Co de Phone Number CLINISYNC TBH * (ABNORMAL) TBH URINE T PROTEIN CREAT RATIO (07/17/2024 11:36 AM EDT) TOTAL PROTEIN URINE RANDOM 25.2(H) <=11.9 mg/dL TBH CREATININE URINE RANDOM 68.16 20.00 - 300.00 mg/dL TBH PROTEIN CREATININE RATIO URINE 0.37 TBH 07/17/2024 11:3 6 AM EDT 07/17/2024 11:57 AM EDT Narrative CLINISYNC - 07/17/2024 12:08 PM EDT us Generic External Data Provider CLINISYNC F inal Result Performing Organization Address City/[facility]/ZIP Co de Phone Number CLIN[facility]NC TB * Cologuard?? colon cancer screening (02/15/2024 10:21 AM EST) Stool Sha[facility] MOLECULAR DIAGNOSTICS ORDER ADRIEN Final Result from Last 3 Months or Most Recently Relevant to Health Maintenance Insurance [employer] Advance Directives Documents on File Type Date Recorded Patient Water Leak Repairer Expl anation Power of Lawyers 09/06/2024 3:49 PM [facility] power of salesperson trailers and motor homes-[facility] Care Teams Psychologists Relationship Specialty Start Date End Date Trace Kelly MD [address] [place] [address] PCP - General Family Medicine 01/17/24 Argelia Cheng NP PCP - Alexx FLOWER 03/29/24 Argelia Cheng NP Nurse Practitioner Family Medicine 11/10/23
--- OUTSIDE RECORDS SUMMARY | 2024-10-10 16:41 | XMS_ITS | Encounter Summary ---
Author Organization [facility] Address [address] [place] [address] Care Team Providers Care Music Writer Name Role Phone Argelia Cheng SHOP TECH Unavailable [phone] Trace Kelly MD Primary Care Provider Argelia Cheng SHOP TECH Unavailable [phone] Encounter Details Date Type Department Care Team (Late st Contact Info) Description 09/04/2024 Abstract [facility] [address] [place] [address] Nolvia Jimenez NP [address] [place] [address] Social History Tobacco Use Types Packs/Day Years [...] often do you attend chur ch or anglican services? 1 to 4 times per year 06/08/2024 Do you belong to any clubs o r organizations such as sikhism groups, unions, fraternal [...] and heating? Not hard at all 06/08/2024 [facility] [place] of Occupat ional Health - Occupational Stress [...] any time in the past 12 m [facility], were you homeless or living in a fdc (including now)? No 06/08/2024 Comments Unknown Sex and Gender Information Value Date Recorded Sex Assigned at Not on file Legal Sex Female 3:02 PM EDT Gender Identity Not on file Sexual Orientation Not on file documented as of this encounter Plan of Treatment Upcoming Encounters Date Type Department Care Team (Late st Contact Info) Description 11/13/2024 1:40 PM EDT [facility] [address] [place] [address] Nolvia Jimenez NP [address] [place] [address] documented as of this encounter Visit Diagnoses Not on filedocumented in this encounter Care Teams Music Writer Relationship Specialty Start Date End Date Trace Kelly MD [address] [place] [address] PCP - General Family Medicine 01/17/24 Argelia Cheng NP PCP - Alexx FLOWER 03/29/24 Argelia Cheng NP Nurse Practitioner Family Medicine 11/10/23 documented as of this encounter
--- OUTSIDE RECORDS SUMMARY | 2024-10-10 16:41 | XMS_ITS | Encounter Summary ---
Author Organization [facility] Address [id number] [address] [place] [address] Care Team Providers Care Asphalt Tamper Name Role Phone Milvia Gay SENIOR MAINTENANCE MACHINIST-CONTACT LENS MOLDER Primary Care Provider [phone] Encounter Details Date Type Department Care Team (Late st Contact Info) Description 02/05/2020 Orders Only [facility] [address] [facility] [address] [place] [address] Nic Muñiz MD [facility] [address] 10/28/23 Left [place] [address] Social History Tobacco Use Types Packs/Day Years [...] and Family Twice a week 01/14/2019 Attends [employer] Services Never 01/14 Active Member of Clubs [...] Answer Date Recorded Total Score 0 01/22/2020 [facility] of Occupat ional Health - Occupational Stress [...] documented as of this encounter Care Teams Asphalt Tamper Relationship Specialty Start Date End Date Milvia Gay APRN-MARISA [address] [place] [address] PCP - General Family Medicine 01/16/19 06/13/20 documented as of this encounter
== END 2024-10-10 16:36 | disposition home or self-care (01) ==
PROVIDERS: PCP Nurse Practitioner; Visit Provider Nurse Practitioner
DX: I50.9 Heart failure, unspecified (principal); R06.00 Dyspnea, unspecified; J44.9 Chronic obstructive pulmonary disease, unspecified; K59.00 Constipation, unspecified
CPT/HCPCS: 71046; 74018

== ENCOUNTER 2024-11-08 12:08 | Outpatient (OUT) | payer MEDICARE, SELFPAY ==
--- OUTSIDE RECORDS SUMMARY | 2024-09-06 13:03 | XMS_ITS ---
Author Organization [facility] in [place] Address [address] [place] [address] Care Team Providers Care Acetylene Torch Operator Name Role Phone Nolvia Jimenez CNP Primary Care Provider Unavail Brien Estrada Unavailable [phone] REASON FOR VISIT DuoNeb refill Medications Medication SIG (Take, Route, Frequency, Duration) Notes Start Date End Date Status Ipratropium-Albuterol 0.5-2.5 (3) MG/3ML 3mL Inhalation QID for 90 days Dispense 360 ampules 08/11/2023 Active Encounters Encounter Location Date Provider Diagnosis Pulmonary Medicine [address] [address] 09/06/2024 Brien Coughlin COPD (chronic obstructive pulmonary disease) J44.9 Assessments Encounter Date Diagnosis (ICD Code) Assessment Notes Treatment Notes Treatment Clinical Notes Section Notes 09/06/2024 COPD (chronic obstructive pulmonary disease) (ICD-10 - J44.9) Plan Of Treatment Medication Medication Name Sig Start Date Stop Date Notes Ipratropium-Albuterol 0.5-2. 5 (3) MG/3ML 3mL Inhalation QID for 90 days 08/11/2023 Progress Notes * Susana JUARESDOB:[birth year] (69 yo F)Acc No.[id number]:09/06/2024 Patient: Karo BARRIGA Susana :1955 A ge:69 Y S ex:Female Address:[address] [place] [address] , [place] [address] * Refills Refill Ipratropium-Albuterol Solution, 0.5-2.5 (3) [...] * true * Date: Generated for Merly gonzalez/Brandin/Lumaitting on: 0 11/08/2024 12:12 PM EDT
--- OUTSIDE RECORDS SUMMARY | 2024-09-07 09:29 | XMS_ITS ---
Author Organization [facility] in [place] Address [address] [place] [address] Care Team Providers Care Substance Abuse Specialist Name Role Phone Nolvia Jimenez CNP Primary Care Provider Unavail Brien Estrada Unavailable [phone] REASON FOR VISIT Oxygen Encounters Encounter Location Date Provider Diagnosis Pulmonary Medicine [place] [address] [place] [address] 09/07/2024 Brien Coughlin Plan Of Treatment No Information Progress Notes * JUARESSusanaDOB:[birth year] (69 yo F)Acc No.[id number]:09/07/2024 Patient: Susana MARTIN :1955 A ge:69 Y S ex:Female Address:[address] [place] [phone] * true * Date: Generated for Merly gonzalez/Brandin/eTransmitting on: 0 11/08/2024 12:12 PM EDT
--- OUTSIDE RECORDS SUMMARY | 2024-09-12 11:30 | XMS_ITS ---
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 Name Role Phone Nolvia Jimenez CNP Primary Care Provider Unavail able Juliensa Brien Unavailable [phone] Allergies Allergen (clinical drug ingredient) Drug/Non Drug Allergy documented on EMR Reaction Allergy Type Onset Date Status clopidogrel Plavix Unknown Drug Allergy Active hydrochlorothiazide Hydrochlorothiazide shortnes s of breath Drug Allergy Active Substance with sulfonamide structure and antibacterial mechanism of action (substance) Sulfa Antibiotics Unknown Drug Allergy Active Penicillin rash Drug Allergy Active vancomycin Vancomycin Unknown Drug Allergy Active REASON FOR VISIT F/U-[facility] Medications Medication SIG (Take, Route, Frequency, Duration) [...] Problem Status W/U Status Risk Notes Problem Chronic respiratory failure (24836311) Chronic respiratory failure with hypoxia (J96.11) Active confirmed Problem History of non-ST elevation myocardial infarction (NSTEMI) (I25.2) Active confirmed Vital Signs Weight 195.6 lbs [...] Encounter Location Date Provider Diagnosis [facility] [address] [place] [address] 09/12/2024 Brien Coughlin COPD (chronic obstructive pulmonary disease) J44.9 ; Chronic respiratory failure with hypoxia J96.11 ; Multiple pulmonary nodules R91.8 ; History of non-ST elevation myocardial infarction (NSTEMI) I25.2 ; History of tobacco abuse Z87.891 ; emt intermediate (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 of systemic steroids Z79.52 ; emt intermediate (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 of inhaled steroids Z79.51 and [...] monitoring d/t the NSTEMI and reduced EF. Dqur-zb-dekk encounter performed with the patient to document continued need for a nebulizer with nebulized medications. -Current nebulized medications: DuoNeb -Symptom control: Improved with use -Reported side or adverse effects: None -Recommendations: Renew, refill, reorder nebulizer and supplies. 09/12/2024 Chronic respiratory failure with hypoxia (ICD-10 - J96.11) Fskc-vt-ngzw encounter performed with the patient to document [...] @ 44%. Restart cardiac rehab, F/U with [facility] Cardiology. 09/12/2024 History of tobacco abuse (ICD-10 - Z87.891) 1ppd x 50 years, quit 2017 LDCT 01/24/2024 - RADS-2. LDCT due 12/2024. 09/12/2024 jail (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 of systemic steroids (ICD-10 - Z79.52) Discussed adverse effects of lobsterman systemic steroids including, but not limited to: increased risk of cataracts, elevated blood sugars/worsening of underlying diabetes mellitus, impaired wound healing, gastrointestinal ulcers, osteoporosis. 09/12/2024 emt intermediate (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 of inhaled steroids (ICD-10 - [...] monitoring d/t the NSTEMI and reduced EF. Gpkw-ra-wtky encounter performed with the patient to document continued need for a nebulizer with nebulized medications. -Current nebulized medications: DuoNeb -Symptom control: Improved with use -Reported side or adverse effects: None -Recommendations: Renew, refill, reorder nebulizer and supplies. Chronic respiratory failure with hypoxia Oifq-mv-dgfz encounter performed with the patient to document [...] @ 44%. Restart cardiac rehab, F/U with [facility] Cardiology. History of tobacco abuse 1ppd x 50 years, quit 2017 LDCT 01/24/2024 - RADS-2. LDCT due 12/2024. emt intermediate (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 of s ystemic steroids Discussed adverse effects of shelter systemic steroids including, but not limited to: increased risk of cataracts, elevated blood sugars/worsening of underlying diabetes mellitus, impaired wound healing, gastrointestinal ulcers, osteoporosis. emt intermediate (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 of i nhaled steroids Patient was counseled to rinse & gargle with water after inhaled corticosteroid use. Obesity, unspecified Patient's weight is inducing a restrictive pulmonary physiology. Weight loss indicated: Decrease calories, increase activity. Next Appt Details Follow Up: 4 Months, Reason: COPD, O2 Procedure Notes * Category Sub-Category Detail Notes PFT Data: 01/24/2024-FEV1/ FVC: 53%-FEV1: 43%-FVC: 61%-Bronchodilator response: Positive in FVC-RV: 184%-T%-DLCO: 55%-Flow-volume loop: Severe lonrkcigqdm17/23/2023-FEV1/FVC: 55%-FEV1: 41%-FVC: 56%-Bronchodilator response: Positive in FVC-RV: 197%-T%-DLCO: 61%-Flow-volume loop: Severe oppaazmhjen48/28/2022-FEV1/FVC: 61%-FEV1: 49%-FVC: 61%-Bronchodilator response: Equivocal-RV: 166%-T%-DLCO: 53%-Flow-volume loop: Severe /21/2020 - Spirometry-FEV1/FVC: 59%-FEV1: 47%-FVC: 64%-JYW10-33%: 25%-Flow-volume loop: Moderately-severe obstruction-No bronchodilator response07/20/20184151-Kidzhurfox-UOZ9/FVC: 63%-FEV1: 51%-FVC: 62%-FND71-35%: 31%-Flow-volume loop: Moderate obstruction07/20/20172755-Zurwpgaeet-YQG4/FVC: 69% -FEV1: 55%-FVC: 68%-JYB03-31%: 31%-Flow-volume loop: Moderate obstruction Alpha-1 Antitrypsin Screening Date: 01/15/2021 Genotype: M/M Progress Notes * Susana EDUARDODOB:[birth year] (69 yo F)Acc No.[id number]:09/12/2024 Progress Note Patient: Susana MARTIN Provider: Tam Coughlin DO :1955 A ge:69 Y S ex:Female Date:09/12/2024 Address:[address] [place], [place] [id number] 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 Her breathing worsened after that day and came to [facility] ER on with dyspnea, chest pain, hypoxia. On arrival, SpO2 was 83% on room air. Troponins were elevated. She was transferred to [facility]. Reviewed discharge summary - she was admitted [...] after a recent admission on 09/03/2024 at [facility]. Patient was discharged home on 3L O2. DME:HCS. Patient complains of SOB, Cough & wheezing. Patient is currently on Trelegy,Dupixent and Prednsione daily. Patient reports her last Dupixent was two weeks ago and is due tomorrow at home. Patient is under the care of [facility] Cardiology. * ROS: G [...] J96.11 Chronic respiratory failure with hypoxia Modified On:09/12/2024U Status:confirmed Z79.51 jail (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 of inhaled steroids Modified On:01/25/2023U Status:confirmed J44.9 COPD (chronic obstru ctive pulmonary disease) Modified On:02/08/2023U Status:confirmed I25.10 CAD (coronary artery disease) Modified On:01/25/2023U Status:confirmed R91.8 Multiple pulmonary n odules Modified On:01/25/2023U Status:confirmed Z87.891 History of tobacco a buse Modified On:01/25/2023U Status:confirmed I25.2 History of non-ST el evation myocardial infarction (NSTEMI) Modified On:09/12/2024U Status:confirmed E66.9 Obesity, unspecified Modified On:07/20/2023U Status:confirmed Z68.35 Body mass index [BMI ] 35.0-35.9, adult Modified On:07/20/2023U Status:confirmed J44.9 Chronic obstructive pulmonary disease, unspecified Modified On:01/28/2024U Status:confirmed Z79.52 emt intermediate (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 of systemic steroids Modified On:08/01/2024 Status:confirmed * Medical History: * Surgical History: C ardiac Catheterization-2001, 07/14/2022, 10/30/2022 & 07/03/2024 hysterectomy cholecystectomy * Hospitalization/Major Diagno stic Procedure: A rrhythmia & Hyponatremia-[facility] 3Acute Respiratory Failure-[facility] 09/03/2024 * Family History: M other: stroke, [...] Orally Once a day Take with foodTrelegy Ellipta(Oobdqbwidgu-Tgajkowxl-Mdwtlm) 100-62.5-25 MCG/ACT Aerosol Powder Breath Activated 1 [...] Once a day Take with foodTaking Trelegy Ellipta(Losqwraxlnm-Fwgjpleng-Xjpkiz) 100-62.5-25 MCG/ACT Aerosol Powder Breath Activated 1 puff Inhalation Once a day Rinse after use ; Dispense #3 inhalersTaking Ventolin HFA(Albuterol Sulfate HFA) 108 (90 Base) MCG/ACT Aerosol Solution 2 puffs as needed for SOB Inhalation Q4H Dispense #3 inhalersTaking Vitamin D 50 MCG (1999) Tablet 1 [...] C hronic respiratory failure with hypoxia Notes: Heho-tn-wnkv encounter performed with the patient to document [...] @ 44%. Restart cardiac rehab, F/U with [facility] Cardiology. 5. H istory of tobacco abuse Notes: 1ppd x 50 years, quit 2017 LDCT 01/24/2024 - RADS-2. LDCT due 12/2024. 6. L joseph term (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 of systemic steroids Notes: Discussed adverse effects of lobsterman systemic steroids including, but not limited to: [...] * Procedures: A lpha-1 Antitrypsin: Screening Date: 1 . Genotype: M /M. P FT: Data: [...] Spirometry -FEV1/FVC: 59% -FEV1: 47% -FVC: 64% -JOC06-61%: 25% -Flow-volume loop: Moderately-severe obstruction -No bronchodilator response 07/20/2018-Spirometry -FEV1/FVC: 63% -FEV1: 51% -FVC: 62% -KAX87-70%: 31% -Flow-volume loop: Moderate obstruction 07/20/2017-Spirometry -FEV1/FVC: 69% -FEV1: 55% -FVC: 68% -DXR88-71%: 31% -Flow-volume loop: Moderate obstruction. * Procedure [...] Reason: D rug declined by patient B SC ACTION PLAN Above Normal BMI Follow-up D ietary management education, guidance, and counseling * Follow Up: 4 Months (Reason: COPD, O2) * * Sign off status: Completed Visit Status: C HK (Check Out) true * Provider: Tam Coughlin DO Date: 0 09/12/2024 Generated for Merly gonzalez/Brandin/Lumaitting on: 0 11/08/2024 12:12 PM EDT History and Physical Notes * HPI (History of Present Illness) Category Sub-Category Detail Notes Category Not es General Patient present s for a hospital follow up after a recent admission on 09/03/2024 at [facility]. Patient was discharged home on 3L O2. DME:HCS. Patient complains of SOB, Cough & wheezing. Patient is currently on Trelegy,Dupixent and Prednsione daily. Patient reports her last Dupixent was two weeks ago and is due tomorrow at home. Patient is under the care of [facility] Cardiology. Examination Category Sub-Category Detail Notes Category Not es Exam GENERAL APPEARANCE: In no respir atory distress. Seems tired today Skin Normal Eyes Ears Nose Wearing nasal cannul a Mouth [place] and moist. No c andidiasis Trachea Midline [...]
--- OUTSIDE RECORDS SUMMARY | 2024-11-08 12:12 | XMS_ITS | Encounter Summary ---
Author Organization [facility] Address [address] [address] Care Team Providers Care Window Shade Cloth Sewer Name Role Phone Nolvia Jimenez MD Primary Care Provider Brien Coughlin MD Unavailable Reason for Visit * Reason Onset Date Comments Med Refill 11/02/2024 Encounter Details Date Type Department Care Team (Late st Contact Info) Description 11/02/2024 Refill [facility] [address] [place] [address] Maria Ines Zamorano MA Atrial flutter, unspecified type (CMS/HCC) Social History Tobacco Use Types Packs/Day Years Used Date Smoking Tobacco: Former Cigarettes Passive Smoke Exposure: Past Smokeless Tobacco: Never Alcohol Use Standard Drinks/Week Comments Yes 0 (1 standard drink = 0.6 oz pur e alcohol) [facility] Answer Date Recorded In the past 12 months has [employer], gas, oil, or water company threatened [...] any time in the past [address] [facility], were you homeless or living in a penitentiary (including now)? No 09/03/2024 Hunger Vital Sign [...] Description 11/20/2024 11:00 AM EDT Office Visit [facility] [address] [place] [address] Zack Villarreal, PAINTER MIRROR [address] [place] [address] documented as of this encounter Visit Diagnoses Diagnosis Atrial flutter, unspecified type (CMS/HCC) documented in this encounter Care Teams Window Shade Cloth Sewer Relationship Specialty Start Date End Date Nolvia Jimenez MD [address] [place] [address] PCP - General Nurse Practitioner 06/15/24 Brien Coughlin MD [address] [place] [address] Pulmonary Disease 09/05/24 documented as of this encounter
--- OUTSIDE RECORDS SUMMARY | 2024-11-08 12:12 | XMS_ITS | Encounter Summary ---
Author Organization [facility] Address [address] [place] [address] Care Team Providers Care Barker Operator Name Role Phone Shaikh ROCAEL Larios Unavailable [phone] Argelia Cheng NP Unavailable [phone] Trace Kelly MD Primary Care Provider [phone] Argelia Cheng NP Unavailable [phone] Encounter Details Date Type Department Care Team (Late st Contact Info) Description 01/24/2024 Clinisync Result Encounter [facility] External Department Unsolicited Provider, Generic External Data Social History Tobacco Use Types Packs/Day Years Used Date Smoking Tobacco: Former Cigarettes - 2015 Smokeless Tobacco: Never Alcohol Use Standard Drinks/Week Comments Never 0 (1 standard drink = 0.6 oz pur e alcohol) [facility] - Occupational [...] Visit [facility] [address] [place] [address] Nolvia Jimenez NP [address] [place] [address] documented as of this encounter Procedures Procedure Name Priority Date/Time Associated Diagnosis Comments RT PULMONARY FUNCTION TEST 01/24/2024 1:05 PM EDT documented in this encounter Results * RT PULMONARY FUNCTION TEST (01/24/2024 1:05 PM EDT) Anatomical Region Laterality Modality Other 01/24/2024 1:05 PM EDT Narrative 01/26/2024 5:54 PM EDT [place] [id number] Respiratory Report Signed Patient: CHIARA JUARES MR#: [id number] : 1955 Acct:[id number] Age/Sex: 68 / F ADM Date: 01/24/24 Loc: CARD Attending Dr: Brien Coughlin D.O. Ordering Physician: Brien Coughlin D.O. Date of Service: 01/24/24 Procedure(s): RT pulmonary function test Accession Number(s): [id number] cc: [facility] Test Date: 2024-01-24 Pat Name: CHIARA JUARES Department: Room: - Gender: Female International Marketing Intern: Frank Calderón RRT : 1955 Requested By: Brien Coughlin Order Number: [id number] Reading MD: Brien Coughlin Interpretive Statements Pulmonary [...] By: Brien Coughlin D.O. Signed By: 01/26/24 1757 DD/ 1305 TD/TT: Maintenance Analyst: Procedure Note Radiology, Radiologist, - 01/26/2024 [place] [address] Respiratory Report Signed Patient: CHIARA JUARES AMR#: [id number] : 1955cct:[id number] Age/Sex: 68 / FADM Date: 01/24/24 Loc: CARD Attending Dr: Brien Coughlin D.O. Ordering Physician: Brien Coughlin D.O. Date of Service: 01/24/24 Procedure(s): RT pulmonary function test Accession Number(s): [id number] cc: [facility] Test Date: 2024-01-24 Pat Name: CHIARA JUARES Department: Room: - Gender: Female International Marketing Intern: Frank Calderón RRT : 1955 Requested By: Brien Coughlin Order Number: [id number] Dane MD: Brien Coughlin Interpretive Statements Pulmonary [...] EDT by Brien Coughlin Dictated By: Brien Couglhin D.O. Signed By:01/26/24 1754 DD/ 1305 TD/TT: Maintenance Analyst: Generic External Data Provider [facility] Final Result documented in this encounter Visit Diagnoses Not on filedocumented in this encounter Care Teams Barker Operator Relationship Specialty Start Date End Date Shaikh Larios MD [address] [place] [address] PCP - Alexx FLOWER 04/29/23 03/28/24 Trace Kelly MD [address] [place] [address] PCP - General Family Medicine 01/17/24 Argelia Cheng NP PCP - Alexx FLOWER 03/29/24 Argelia Cheng NP [address] [place] [address] Nurse Practitioner Family Medicine 11/10/23 documented as of this encounter
--- OUTSIDE RECORDS SUMMARY | 2024-11-08 12:12 | XMS_ITS | Encounter Summary ---
Author Organization [facility] Address [address] [place] [address] Care Team Providers Care Pockets And Pieces Necktie Operator Name Role Phone Shaikh ROCAEL Larios Unavailable [phone] Argelia Cheng NP Unavailable [phone] Trace Kelly MD Primary Care Provider [phone] Argelia Cheng NP Unavailable [phone] Encounter Details Date Type Department Care Team (Late st Contact Info) Description 01/26/2024 Clinisync Result Encounter [facility] External Department Unsolicited Provider, Generic External Data Social History Tobacco Use Types Packs/Day Years Used Date Smoking Tobacco: Former Cigarettes 986 - 2015 Smokeless Tobacco: Never Alcohol Use Standard Drinks/Week Comments Never 0 (1 standard drink = 0.6 oz pur e alcohol) [facility] - Occupational [...] Visit [facility] [address] [place] [address] Nolvia Jimenez, [place] [address] [place] [address] documented as of this encounter Procedures Procedure Name Priority Date/Time Associated Diagnosis Comments CT LUNG SCREENING LOW DOSE 01/26/2024 6:07 AM EDT documented in this encounter Results * CT LUNG SCREENING LOW DOSE (01/26/2024 6:07 AM EDT) Anatomical Region Laterality Modality Other 01/26/2024 6:07 AM EDT Narrative 01/26/2024 6:09 AM EDT [address] [address] [address] Scan Report Signed Patient: CHIARA EDUARDO MR#: [id number] : 1955 Acct:[id number] Age/Sex: 68 / F ADM Date: 01/24/24 Loc: CARD Attending Dr: Luis Schumacher D.O. Ordering Physician: Luis Schumacher D.O. Date of Service: 01/24/24 Procedure(s): CT lung screening low-dose Accession Number(s): [id number] cc: ARGELIA CHENG [address] [address] Patient Name: CHIARA EDUARDO MRN: [id number] date: 1955 Sex: F Assigned Patient Location: CARD Current Patient Location: Accession/Order Number: [id number] Exam Date: 01/24/2024 15:00 Report Date: 01/26/2024 [...] M.D. Signed By: 01/26/24608 DD/ 6 TD/TT: Manager Marketing: Procedure Note Radiology, Radiologist, - 01/26/2024 [place] [address] CT Scan Report Signed Patient: CHIARA EDUARDO [facility]#: [id number] : 4Acct:[id number] Age/Sex: 68 / FADM Date: 01/24/24 Loc: CARD Attending Dr: Luis Schumacher D.O. Ordering Physician: Luis Schmuacher D.O. Date of Service: 01/24/24 Procedure(s): CT lung screening low-dose Accession Number(s): [id number] cc: ARGELIA CHENG [address] [address] Patient Name: CHIARA EDUARDO MRN: [id number] date: 1955 Sex: F Assigned Patient Location: CARD Current Patient Location: Accession/Order Number: [id number] Exam Date: 01/24/2024 15:00 Report Date: 01/26/2024 [...] Matos M.D. Signed By:01/26/24608 DD/ 6 TD/TT: Manager Marketing: Generic External Data Provider [facility] Final Result documented in this encounter Visit Diagnoses Not on filedocumented in this encounter Care Teams Pockets And Pieces Necktie Operator Relationship Specialty Start Date End Date Shaikh Larios MD [address] [place] [address] PCP - Alexx FLOWER 04/29/23 03/28/24 Trace Kelly MD [address] [place] [address] PCP - General Family Medicine 01/17/24 Argelia Cheng NP PCP - Alexx FLOWER 03/29/24 Argelia Cheng NP [address] [place] [address] Nurse Practitioner Family Medicine 11/10/23 documented as of this encounter
--- OUTSIDE RECORDS SUMMARY | 2024-11-08 12:12 | XMS_ITS | Patient Health Record ---
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 Ordering Physician: Luis Schumacher D.O. Date of Service: 01/24/24 Procedure(s): RT pulmonary function test Accession Number(s): [id number] cc: [facility] Test Date: 2024-01-24 Pat Name: CHIARA JUARES Department: Room: - Gender: Female Digital Associate: Frank Calderón RRT : 1955 Requested By: Luis Schumacher Order Number: [id number] Reading MD: Luis Schumacher Interpretive Statements Pulmonary [...] By: Luis Schumacher D.O. Signed By: 01/26/24 0810 DD/ 1305 TD/TT: [employer] Vehicle Supervisor: [place] [address] Respiratory Report Signed Patient: DELVIN JUARES MR#: [id number] : 1955 Acct:[id number] Age/Sex: 68 / F ADM Date: 01/24/24 Loc: CARD Attending Dr: Luis Schumacher D.O. Ordering Physician: Luis Schumacher D.O. Date of Service: 01/24/24 Procedure(s): RT pulmonary function test Accession Number(s): [id number] cc: [facility] Test Date: 2024-01-24 Pat Name: CHIARA BARRIGA Department: 57 Room: - Gender: Female Digital Associate: Frank Calderón RRT : 1955 Requested By: Luis Schumacher Order Number: [id number] Reading MD: Luis Schumacher Interpretive Statements Pulmonary [...] Signed By: 01/26/24 1754 DD/ 1305 TD/TT: [employer] Supervisor: TRACIE Reviewed date:10/04/2024 10:42:13 AM Interpretation: Performing Lab: Notes/Report: Source Facility: [place] [address] [place] [address] Cardiac Rehab Report Signed Patient: CHIARA JUARES MR#: [id number] : 1955 Acct:[id number] Age/Sex: 69 / F ADM Date: 10/03/24 Loc: CR Attending Dr: Abby Azevedo M.D. Ordering Physician: Luis Schumacher D.O. Date of Service: 10/02/24 Procedure(s): ITP Accession Number(s): [id number] cc: [facility] Test Date: 2024-10-02 Pat Name: CHIARA JUARES Department: Room: - Gender: Female Digital Associate: : 1955 Requested By: Luis Schumacher Order Number: [id number] Dane MD: Luis Schumacher Interpretive Statements Okay to proceed with outlined treatment plan. Electronically Signed On 10-04-2024 10:08:06 EDT by Luis Schumacher Dictated By: Luis Schumacher D.O. Signed By: 10/04/24100710/04/24 100 DD/ 1145 TD/TT: [employer] Vehicle Supervisor: [place] [address] Cardiac Rehab Report Signed Patient: DELVIN JUARES MR#: [id number] : 1955 Acct:[id number] Age/Sex: 69 / F ADM Date: 10/03/24 Loc: CR Attending Dr: Abby Azevedo M.D. Ordering Physician: Luis Schumacher D.O. Date of Service: 10/02/24 Procedure(s): ITP Accession Number(s): [id number] cc: [facility] Test Date: 2024-10-02 Pat Name: CHIARA BARRIGA Department: 57 Room: - Gender: Female Digital Associate: : 1955 Requested By: Luis Schumacher Order Number: [id number] Dane MD: Luis Schumacher Interpretive Statements Okay to proceed with outlined treatment plan. Electronically Ivon d On 10-04-2024 10:08:06 EDT by Luis Schumacher Dictated By: Tam Schumacher D.O. Signed By: 10/04/248 10/04/24 100 DD/ 1145 TD/TT: [employer] Supervisor: TRACIE Reviewed date:10/04/2024 10:42:09 AM Interpretation: Performing Lab: Notes/Report: Source Facility: [place] [address] [place] [address] Cardiac Rehab Report Signed Patient: CHIARA JUARES MR#: [id number] : 1955 Acct:[id number] Age/Sex: 69 / F ADM Date: 10/03/24 Loc: CR Attending Dr: Abby Azevedo M.D. Ordering Physician: Luis Schumacher D.O. Date of Service: 10/03/24 Procedure(s): ITP Accession Number(s): [id number] cc: [facility] Test Date: 2024-10-03 Pat Name: CHIARA JUARES Department: Room: - Gender: Female Digital Associate: : 1955 Requested By: Luis Schumacher Order Number: [id number] Dane MD: Luis Schumacher Interpretive Statements Okay to proceed with outlined treatment plan. Electronically Signed On 10-04-2024 10:08:18 EDT by Luis Schumacher Dictated By: Luis Schumacher D.O. Signed By: 10/04/24 1008 10/04/24 1008 DD/ 1245 TD/TT: [employer] Vehicle Supervisor: [place] [address] Cardiac Rehab Report Signed Patient: DELVIN JUARES MR#: [id number] : 1955 Acct:[id number] Age/Sex: 69 / F ADM Date: 10/03/24 Loc: CR Attending Dr: Abby Azevedo M.D. Ordering Physician: Luis Schumacher D.O. Date of Service: 10/03/24 Procedure(s): ITP Accession Number(s): [id number] cc: [facility] Test Date: 2024-10-03 Pat Name: CHIARA BARRIGA Department: 57 Room: - Gender: Female Digital Associate: : 1955 Requested By: Luis Schumacher Order Number: [id number] Dane MD: Luis Schumacher Interpretive Statements Okay to proceed with outlined treatment plan. Electronically Ivon d On 10-04-2024 10:08:18 EDT by Luis Schumacher Dictated By: Tam Schumacher D.O. Signed By: 10/04/24 1008 10/04/24 1008 DD/ 1245 TD/TT: [employer] Supervisor: HEMOGLOBIN Reviewed date:01/25/2024 07:12:59 AM Interpretation: Performing Lab: Notes/Report: [facility] , Hemoglobin 11.0 12.0-16.0 g/dL Performing Lab: see note ML - [facility] LB CT Chest Low Dose for Screen ing* Reviewed date:01/26/2024 06:53:52 AM Interpretation: Performing Lab: Notes/Report: CT lung screening low-dose Reviewed date:01/26/2024 06:55:01 AM Interpretation: Performing Lab: Notes/Report: Source Facility: [place] [address] CT Scan Report Signed Patient: CHIARA JUARES MR#: [id number] : 1955 Acct:[id number] Age/Sex: 68 / F ADM Date: 01/24/24 Loc: CARD Attending Dr: Luis Schumacher D.O. Ordering Physician: Luis Schumacher D.O. Date of Service: 01/24/24 Procedure(s): CT lung screening low-dose Accession Number(s): [id number] cc: [facility] [place] [address] Patient Name: CHIARA JUARES MRN: [id number] date: 1955 Sex: F Assigned Patient Location: CARD Current Patient Location: Accession/Order Number: [id number] Exam Date: 01/24/2024 15:00 Report Date: 01/26/2024 [...] M.D. Signed By: 01/26/24608 DD/ 6 TD/TT: [employer] Vehicle Supervisor: [place] [address] CT Scan Report Signed Patient: DELVIN JUARES MR#: [id number] : 1955 Acct:[id number] Age/Sex: 68 / F ADM Date: 01/24/24 Loc: CARD Attending Dr: Luis Schumacher D.O. Ordering Physician: Luis Schumacher D.O. Date of Service: 01/24/24 Procedure(s): CT belkys g screening low-dose Accession Number(s): [id number] cc: [facility] [place] [id number] Patient Name: CHIARA JUARES MRN: [id number] date: 1955 Sex: F Assigned Patient Location: CARD Current Patient Location: Accession/Order Numb er: [id number] Exam Date: 15:00 Report Date: 01/26/2024 06:07 [...] Robbie Matos M.D. Signed By: 01/26/2409 DD/ 0607 TD/TT: [employer] Supervisor: Reason For Referral Reason Palliative care serv ices for severe COPD Diagnosis 1 COPD (chronic obstru ctive pulmonary disease) (J44.9) Referral Organization [facility] Referring Provider First Name Luis Referring Provider Last Name Ced Referring Provider Speciality Pulmonolog y Referred Provider Specialty Palliative C are General Notes Chandu Rodriguez 05/04 08:23:43 AM >Referral form and clinicals faxed to [facility]., Chandu Rodriguez 05/11/2024 11:07:35 AM >Per Patient-[facility] is out of network for the patient. 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.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 Problem COPD - Chronic obstructive pulmonary disease (79211986) COPD (chronic obstructive pulmonary disease) (J44.9) Active confirmed Problem Coronary artery disease (16800932) CAD (coronary artery disease) (I25.10) Active confirmed Problem Multiple pulmonary nodules (185328268) Multiple pulmonary nodules (R91.8) Active confirmed Problem Ex-tobacco user (finding) (790290665) History of tobacco abuse (Z87.891) Active confirmed Problem Old myocardial infarction (5512688) History of non-ST elevation myocardial infarction (NSTEMI) (I25.2) Active confirmed Problem 432216454 Body mass index [BMI] 35.0-35.9, adult (Z68.35) [...] Encounter Location Date Provider Diagnosis [facility] [address] [place] [facility] [place] [address] 09/07/2024 Luis [facility] [address] [place] [facility] [address] 01/04/2024 [facility] [address] [place] [facility] [address] 01/24/2024 [facility] [address] [place] [facility] [address] 05/11/2024 [facility] [address] [place] [facility] [address] 05/17/2024 [facility] [address] [place] [facility] [address] 09/06/2024 Luis [facility] COPD (chronic obstructive pulmonary disease) J44.9 [facility] [address] [place] [facility] [address] 02/01/2024 [facility] COPD (chronic obstructive pulmonary disease) J44.9 ; Multiple pulmonary nodules R91.8 ; History of tobacco abuse Z87.891 ; Encounter for screening for malignant neoplasm of respiratory organs Z12.2 ; CAD (coronary artery disease) I25.10 ; senior care (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 of systemic steroids Z79.52 ; 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 of inhaled steroids Z79.51 ; Obesity, unspecified E66.9 and Body mass index [BMI] 35.0-35.9, adult Z68.35 [facility]monary [facility] [address] [place] [address] 05/03/2024 [facility] COPD (chronic obstructive pulmonary disease) J44.9 ; Multiple pulmonary nodules R91.8 ; History of tobacco abuse Z87.891 ; CAD (coronary artery disease) I25.10 ; 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 of inhaled steroids Z79.51 ; Obesity, unspecified E66.9 and Body mass index [BMI] 35.0-35.9, adult Z68.35 Pulmonary [facility] [address] [place] [facility] [address] 08/01/2024 [facility] COPD (chronic obstructive pulmonary disease) J44.9 ; Multiple pulmonary nodules R91.8 ; History of tobacco abuse Z87.891 ; 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 of systemic steroids Z79.52 ; 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 of inhaled steroids Z79.51 and Obesity, unspecified E66.9 Pulmonary [facility] [address] [place] [address] 08/23/2024 Luis Schumacher COPD (chronic obstructive pulmonary disease) J44.9 ; Multiple pulmonary nodules R91.8 ; History of tobacco abuse Z87.891 ; 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 of systemic steroids Z79.52 ; senior care (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 of inhaled steroids Z79.51 and Obesity, unspecified E66.9 [facility] [address] [place] [address] 09/12/2024 Luis Schumacher COPD (chronic obstructive pulmonary disease) J44.9 ; Chronic respiratory failure with hypoxia J96.11 ; Multiple pulmonary nodules R91.8 ; History of non-ST elevation myocardial infarction (NSTEMI) I25.2 ; History of tobacco abuse Z87.891 ; 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 Assess patient for Kechi valves. Her PFT shows FEV1 of 43%, [...] I stated I would have the interventional commercial construction estimator make that determination. -Pulmonary rehabilitation: She is [...] did not want to go to another commercial construction estimator, she wants to stay here with me. I explained that it is only for the procedure - I will still be her local commercial construction estimator. She did not want to persue endobronchial [...] I offered to refer her to either [facility] (e.g. Dr. Heard) or (e.g. Dr. [...] were noted. Post Injection Vitals taken. [facility]:[id number] 0. Lot#[id number]. Exp:11/26/2024. Patient was advised to self administer [...] much else that can be done. 09/12/2024 COPD (chronic obstructive pulmonary disease) (ICD-10 [...] monitoring d/t the NSTEMI and reduced EF. Fhze-lw-unld encounter performed with the patient to document continued need for a nebulizer with nebulized medications. -Current nebulized medications: DuoNeb -Symptom control: Improved with use -Reported side or adverse effects: None -Recommendations: Renew, refill, reorder nebulizer and supplies. 09/12/2024 Chronic respiratory failure with hypoxia (ICD-10 - J96.11) Cabl-qe-ahto encounter performed with the patient to document [...] to keep SpO2 @ 89% or greater. 09/06/2024 COPD (chronic obstructive pulmonary disease) (ICD-10 [...] artery disease) (ICD-10 - I25.10) F/U with [facility] Cardiology. 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 Restart cardiac rehab, F/U with [facility] Cardiology. 09/12/2024 History of tobacco abuse (ICD-10 - Z87.891) 1ppd x 50 years, quit 2017 LDCT 01/24/2024 - RADS-2. LDCT due 12/2024. 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 05/03/2024 senior care (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 of inhaled steroids (ICD-10 - Z79.51) Patient was counseled to rinse & gargle with water after inhaled corticosteroid use. 02/01/2024 CAD (coronary artery disease) (ICD-10 - I25.10) F/U with [facility] Cardiology. 02/01/2024 senior care (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 of systemic steroids (ICD-10 - Z79.52) Discussed adverse effects of tape maker systemic steroids including, but not limited to: [...] loss indicated: Decrease calories, increase activity. 08/23/2024 senior care (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 of inhaled steroids (ICD-10 - Z79.51) Patient was counseled to rinse & gargle with water after inhaled corticosteroid use. 09/12/2024 senior care (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 of systemic steroids (ICD-10 - Z79.52) Discussed adverse effects of tape maker systemic steroids including, but not limited to: increased risk of cataracts, elevated blood sugars/worsening of underlying diabetes mellitus, impaired wound healing, gastrointestinal ulcers, osteoporosis. 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 08/23/2024 Obesity, unspecified (ICD-10 - E66.9) Patient's weight is inducing a restrictive pulmonary physiology. Weight loss indicated: Decrease calories, increase activity. 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
--- OUTSIDE RECORDS SUMMARY | 2024-11-08 12:12 | XMS_ITS | Clinical Summary ---
Author Organization [email or web address] [facility] Address [id number] [place] [address] Care Team Providers Care [employer] Developer Name Role Phone Unavailable Primary Care Provider Unavailabl e Allergies Active Allergy Reactions Criticality Noted Date Comments Hydrochlorothiazide 12/28/2016 Exfoliative Dermatitis Penicillins 12/28/2016 Clopidogrel 12/28/2016 Vancomycin 12/28/2016 Medications aspirin 81 mg TAKE 1 TABLET DAILY. 2 Active magnesium 200 mg tablet Take by mouth daily. Active nitroglycerin (NITROSTAT) 0.4 MG SL tablet 1 under the tongue as needed for angina, may repeat q5mins for up three doses 25 tablet 3 0 Active mometasone-formote rol (DULERA) 200-5 mcg/actuation inhaler Inhale 2 puffs 2 (two) times a day. INHALE 2 PUFFS TWICE DAILY DIRECTED. 13 g 11 0 Active VENTOLIN HFA 90 mcg/actuation inhaler Inhale 2 puffs 4 (four) times a day. 18 g 11 0 Active ipratropium-albute roL (DUO-NEB) 0.5 mg-3 mg(2.5 mg base)/3 mL nebulizerIndicatio ns:Chronic obstructive pulmonary disease, unspecified COPD type ([facility]) INHALE THE CONTENTS OF 1 VIAL THROUGH NEBULIZER FOUR TIMES DAILY NEEDED 1080 mL 3 0 Active atorvastatin (LIPITOR) 80 mg tabletIndications: Mixed hyperlipidemia Take 1 tablet (80 mg total) by mouth once daily at bedtime. 90 tablet 3 0 Active furosemide (LASIX) 40 mg tabletIndications: Edema, unspecified type Take 1 tablet daily as needed for swelling 90 tablet 3 0 Active metoprolol tartrate (LOPRESSOR) 50 mg tabletIndications: Coronary artery disease involving teller coronary artery of teller heart without angina pectoris,Essential hypertension Take 1 tablet (50 mg total) by mouth 2 (two) times a day. 180 tablet 3 0 Active cyclobenzaprine (FLEXERIL) 10 mg tabletIndications: Chronic right-sided low back pain with right-sided sciatica Take 1 tablet (10 mg total) by mouth every 8 (eight) hours as needed for muscle spasms. 90 tablet 2 0 Active olmesartan (BENICAR) 40 mg tabletIndications: Essential hypertension Take 1 tablet (40 mg total) by mouth daily. 90 tablet 3 0 Active omeprazole (PriLOSEC) 20 mg capsuleIndications :Chronic GERD Take 1 capsule (20 mg total) by mouth 2 (two) times a day. 180 capsule 3 0 Active potassium chloride 20 mEq tablet extended releaseIndications :Diuretic-induced hypokalemia Take 1 tablet on the days that you take Furosemide (Lasix) 90 tablet 3 0 Active Active Problems Problem Noted Date Diagnosed Date Former smoker 01/22/2020 Health care maintenance 01/22/2020 Diuretic-induced hypokalemia 01/16/2018 History of acute inferior wall SD 01/13/2018 Bladder prolapse, female, acquired 12/28/2016 Coronary artery disease invo lving teller coronary artery of teller heart without angina pectoris 12/28/2016 COPD (chronic obstructive pulmonary disease) 04/2016 Overview (01/12/2018): Managed by Dr. White. Chronic GERD 12/28/2016 Lower back pain 12/28/2016 Severe obesity (BMI 35.0-39.9) with comorbidity 12/28/2016 Shortness of breath 12/28/2016 Essential hypertension 12/14/2016 Mixed hyperlipidemia 12/14/2016 Resolved Problems Problem Noted Date Diagnosed Date Resolved Date Current every day smoker 12/28/201612/2016 Overview (12/28/2016): Smokes 1 PPD Murmur 12/28/2016 01/16/2018 Need for hepatitis C screening test 12/28/2016 01/05/2017 Overview (12/28/2016): Screening Done: 07/18/2015 Pain in right hip 12/28/2016 01/16/2018 Immunizations Immunization Administration Dates Next Due Influenza (IM) Preservative Free 07/16/2014(Defe rred: Other - DEFERRED) Family History Medical History Relation Name Comments Kidney failure Father Father passed at age 76 Heart failure Mother Stroke Mother Mother passed a t age 76 Cancer Paternal Grandmother Bladder Cancer Alcohol abuse Sister COPD Sister Relation Name Status Comments Father Mother Paternal Grandmother Sister Social History Tobacco Use Types Packs/Day Years Used Date Smoking Tobacco: Former Cigarettes 1 50 0 11/10/1966 - 11/10/2016 Smokeless Tobacco: Never Tobacco Cessation:Counseling Given: Yes Alcohol Use Standard Drinks/Week Comments Yes 0 (1 standard drink = 0.6 oz pur e alcohol) Rarely Social Connection and Isolat ion Panel [NHANES] Answer Date Recorded Frequency of Communication w ith Friends and Family More than three times a week 01/14/2019 Frequency of Social Gatherin gs with Friends and Family Twice a week 01/14/2019 Attends [employer] Never 01/14 Active Member of Clubs [...] Answer Date Recorded Total Score 0 01/22/2020 [facility] [place] of Occupat ional Health - Occupational Stress [...] Employment Answer Date Recorded Employment No 01/14/2019 Purpose - Life Answer Date Recorded Purpose and direction in life Unknown Education Answer Date Recorded What is the [...] file Not on file Not on file Last Filed Vital Signs Vital Sign Reading Time Taken Comments Blood Pressure 140/78 01/22/2020 3:16 PM EDT Pulse 78 01/22/2020 3:16 PM EDT Temperature 36.1 C (96.9 F) 01/22/2020 3:16 PM EDT Respiratory Rate 16 01/22/2020 3:16 PM EDT Oxygen Saturation 98% 01/22/2020 3:16 PM EDT Inhaled Oxygen Concentration - - Weight 90.3 kg (199 lb) 01/22/2020 3:16 PM EDT Height 157.5 cm (5' 2.01 ) 01/22/2020 3:16 PM ED T Body Mass Index 36.39 01/22/2020 3:16 PM EDT Plan of Treatment Health Maintenance Due Date Last Done Comments Depression Screening 1965 Tobacco Screening 1965 Adult BMI Screening 1971 Mammogram 1993 Fall Risk Screening 2018 DTaP,Tdap and Td Vaccines Discontinued Influenza Vaccine Discontinued Zoster (Shingles) Vaccine Discontinued Medical Devices Not on file Insurance [employer] [place] [employer]
--- OUTSIDE RECORDS SUMMARY | 2024-11-08 12:12 | XMS_ITS | Encounter Summary ---
Author Organization [facility] Address [address] [place] [address] Care Team Providers Care Brim Curler Name Role Phone Shaikh ROCAEL Larios Unavailable [phone] Argelia Cheng CARPENTERS SUPERVISOR Unavailable Trace Kelly MD Primary Care Provider Argelia Cheng CARPENTERS SUPERVISOR Unavailable Encounter Details Date Type Department Care Team (Late st Contact Info) Description 02/16/2024 Orders Only [facility] [address] [place] [address] Shaikh Larios MD [address] [facility] [place] [address] Social History Tobacco Use Types Packs/Day Years Used Date Smoking Tobacco: Former Cigarettes - 2015 Smokeless Tobacco: Never Alcohol Use Standard Drinks/Week Comments Never 0 (1 standard drink = 0.6 oz pur e alcohol) [facility] [place] of Occupat ional Health - Occupational Stress [...] Office Visit [facility] [address] [place] [address] Nolvia Jimenez NP [address] [place] [address] documented as of this encounter [...] on filedocumented in this encounter Care Teams Brim Curler Relationship Specialty Start Date End Date Shaikh Larios MD [address] [place] [address] PCP - Alexx FLOWER 04/29/23 03/28/24 Trace Kelly MD [address] [place] [address] PCP - General Family Medicine 01/17/24 Argelia Cheng NP PCP - Alexx FLOWER 03/29/24 Argelia Cheng NP [address] [place] [address] Nurse Practitioner Family Medicine 11/10/23 documented as of this encounter
--- OUTSIDE RECORDS SUMMARY | 2024-11-08 12:13 | XMS_ITS | Encounter Summary ---
Author Organization [facility] Address [address] [place] [address] Care Team Providers Care Windchill Administrator Name Role Phone Argelia Cheng MOLDER FOAM RUBBER Unavailable [phone] Trace Kelly MD Primary Care Provider Argelia Cheng MOLDER FOAM RUBBER Unavailable [phone] Encounter Details Date Type Department Care Team (Late st Contact Info) Description 09/04/2024 Abstract [facility] [address] [place] [id number] Nolvia Jimenez NP [address] [place] [address] Social History Tobacco Use Types Packs/Day Years [...] often do you attend chur ch or temple services? 1 to 4 times per year 06/08/2024 Do you belong to any clubs o r organizations such as amish groups, unions, fraternal or athletic groups, or [...] and heating? Not hard at all 06/08/2024 [facility] [place] of Occupat ional Health - Occupational Stress [...] any time in the past 12 m [facility], were you homeless or living in a penitentiary (including now)? No 06/08/2024 Comments Unknown Sex and Gender Information Value Date Recorded Sex Assigned at Not on file Legal Sex Female 3:02 PM EDT Gender Identity Not on file Sexual Orientation Not on file documented as of this encounter Plan of Treatment Upcoming Encounters Date Type Department Care Team (Late st Contact Info) Description 11/13/2024 1:40 PM EDT [facility] [address] [place] [address] Nolvia Jimenez NP [address] [place] [address] documented as of this encounter Visit Diagnoses Not on filedocumented in this encounter Care Teams Windchill Administrator Relationship Specialty Start Date End Date Trace Kelly MD [address] [place] [address] PCP - General Family Medicine 01/17/24 Argelia Cheng NP PCP - Alexx FLOWER 03/29/24 Argelia Cheng NP Nurse Practitioner Family Medicine 11/10/23 documented as of this encounter
--- OUTSIDE RECORDS SUMMARY | 2024-11-08 12:13 | XMS_ITS | Encounter Summary ---
Author Organization [facility] Address [address] [place] [address] Care Team Providers Care Channel Machine Operator Name Role Phone Argelia Cheng LARD RENDERER Unavailable [phone] Trace Kelly MD Primary Care Provider [phone] Argelia Cheng LARD RENDERER Unavailable [phone] Encounter Details Date Type Department Care Team (Late st Contact Info) Description 05/03/2024 Orders Only [facility] [address] [place] [address] Shaikh Larios MD [address] [facility] [place] [address] Social History Tobacco Use Types Packs/Day Years Used Date Smoking Tobacco: Former Cigarettes 986 - 2016 Smokeless Tobacco: Never Alcohol Use Standard Drinks/Week Comments Never 0 (1 standard drink = 0.6 oz pur e alcohol) [facility] [place] of Occupat ional Health - Occupational Stress [...] Office Visit [facility] [address] [place] [address] Nolvia Jimenez NP [address] [place] [address] documented as of this encounter Procedures Procedure [...] on filedocumented in this encounter Care Teams Channel Machine Operator Relationship Specialty Start Date End Date Trace Kelly MD [address] [place] [address] PCP - General Family Medicine 01/17/24 Argelia Cheng NP PCP - Alexx FLOWER 03/29/24 Argelia Cheng NP Nurse Practitioner Family Medicine 11/10/23 documented as of this encounter
--- OUTSIDE RECORDS SUMMARY | 2024-11-08 12:13 | XMS_ITS | Encounter Summary ---
Author Organization [facility] Address [address] [place] [address] Care Team Providers Care Supervisor Alum [employer] Name Role Phone Argelia Cheng SIGNAL OPERATOR LINGUIST Unavailable [phone] Trace Kelly MD Primary Care Provider Argelia Cheng SIGNAL OPERATOR LINGUIST Unavailable [phone] Encounter Details Date Type Department Care Team (Late st Contact Info) Description 10/16/2024 Abstract [facility] [address] [place] [phone] Nolvia Jimenez NP [address] [place] [address] Social History Tobacco Use Types Packs/Day Years [...] often do you attend chur ch or catholic services? 1 to 4 times per year 06/08/2024 Do you belong to any clubs o r organizations such as baptism groups, unions, fraternal or athletic groups, or [...] and heating? Not hard at all 06/08/2024 [facility] [place] of Occupat ional Health - Occupational Stress [...] any time in the past 12 m [facility], were you homeless or living in a group home (including now)? No 06/08/2024 Comments Unknown Sex and Gender Information Value Date Recorded Sex Assigned at Not on file Legal Sex Female 3:02 PM EDT Gender Identity Not on file Sexual Orientation Not on file documented as of this encounter Plan of Treatment Upcoming Encounters Date Type Department Care Team (Late st Contact Info) Description 11/13/2024 1:40 PM EDT [facility] [address] [place] [address] Nolvia Jimenez NP [address] [place] [address] documented as of this encounter Visit Diagnoses Not on filedocumented in this encounter Care Teams Supervisor Alum Plant Relationship Specialty Start Date End Date Trace Kelly MD [address] [place] [address] PCP - General Family Medicine 01/17/24 Argelia Cheng NP PCP - Alexx FLOWER 03/29/24 Argelia Cheng NP Nurse Practitioner Family Medicine 11/10/23 documented as of this encounter
--- OUTSIDE RECORDS SUMMARY | 2024-11-08 12:13 | XMS_ITS | Clinical Summary ---
Author Organization [facility] Address [address] [place] [address] Care Team Providers Care Assistance Representative Name Role Phone Nolvia Jimenez MD Primary Care Provider [phone] Brien Coughlin MD Unavailable Allergies Active Allergy [...] or chew. 30 tablet 3 07/04/19 25 Active budesonide-glyco pyr-formoterol (Breztri Aerosphere) 160-9-4.8 mcg/actuation [...] pain. 25 tablet 2 09/06/19 25 Active spironolactone (Aldactone) [...] morning. 90 tablet 3 10/07/19 25 Active metoprolol succinate XL (Toprol-XL) 50 mg 24 hr tabletIndication s:hypertension Take 1 tablet (50 mg) by mouth two times daily. Do not crush or chew. 180 tablet 3 11/03/19 25 026 Active metoprolol succinate XL (Toprol-XL) 50 mg 24 hr tabletIndication s:hypertension Take 1 tablet (50 mg) by mouth two times daily. Do not crush or chew. 60 tablet 2 09/06/19 25 025 Discontin ued(Reord er) Active Problems Problem Noted Date Diagnosed Date Elevated troponin 09/04/2024 Assessment & Plan (09/04/2024 12:39 PM EDT): Likely type II AZ, supply/demand mismatch EKG shows sinus rhythm with [...] Patient was requiring nonrebreather upon arrival to [facility] - has been switched to high flow nasal cannula -Chest x-ray at [facility] showed right lower lobe pneumonia - 09/04/2024 x-ray done at [facility] was consistent with the previously [...] Patient was requiring nonrebreather upon arrival to [facility] - has been switched to [...] History of tobacco use 12/28/2022 3 Other long-term (current) 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 3 12/28/2022 Non-sustained ventricular tachycardia 11/17/2022 Assessment & Plan (11/17/2022 2:13 PM EDT): Currently on amiodarone for rhythm control and toprol for rate control for NSVT and frequent PVCs Recent heart cath with non obstructive CAD- no intervention was needed RTC with EP for further management and evaluation. 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 Anemia 10/27/2022 Assessment & Plan (11/17/2022 2:13 PM EDT): Sent pt for CBC and pt to f/u with her PCP and insurance verify rep Hypomagnesemia 10/27/2022 Hyponatremia 10/27/2022 Arrhythmia 10/26/2022 Assessment & Plan (11/17/2022 2:11 PM EDT): Reviewed rhythm strips from Cardiac rehab and normal sinus rhythm, no PVCS noted or VT Chest pain 07/08/2022 Overview (07/08/2022): Added automatically from request for surgery [id number] Former smoker 01/22/2020 Health care maintenance 01/22/2020 Diuretic-induced hypokalemia 01/16/2018 History of acute inferior wall AZ 01/13/2018 Bladder prolapse, female, acquired 12/28/2016 Chronic [...] 72 hours. 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 [address] Milli Gutierrez MA Benign hypertensive heart disease with heart failure (CMS/HCC) (Primary Dx) 10/06/2024 Refill [facility] [address] [place] [facility] [address] Oralia Jaramillo MA Pneumonia of right lower lobe due to infectious organism (Primary Dx) 10/03/2024 Telephone [facility] [address] [place] [address] Milli Gutierrez MA 09/22/2024 1:00 PM EDT Follow-Up [address] [place] [address] Zack Villarreal CNP Heart failure with mildly reduced ejection fraction (CMS/HCC) (Primary Dx); Bilateral lower extremity edema; Coronary artery disease involving naknek coronary artery of naknek heart without angina pectoris; Shortness of breath; Mixed hyperlipidemia; Benign hypertensive heart disease with heart failure (CMS/HCC); Chronic heart failure with preserved ejection fraction (CMS/HCC) 09/03/2024 4:20 PM EDT - 09/05/2024 2:27 PM EDT Hospital Encounter [facility] [address] [place] [address] Alireza Mcallsiter MD Saad, Hani, MD NSTEMI (non-ST elevated myocardial infarction) (CMS/HCC) (Primary Dx); Atrial flutter, unspecified type (CMS/HCC); Pneumonia of right lower lobe due to infectious organism; Chronic obstructive pulmonary disease, unspecified COPD type (CMS/HCC) Discharge Disposition: Home or Self Care () 09/03/2024 Travel from Last 3 Months Family History [...] = 0.6 oz pur e alcohol) occaisonal [facility] Utilities Answer Date Recorded In the past 12 months has th e [employer], gas, oil, or water [employer] threatened to shut off services in your [...] any time in the past 12 m [facility], were you homeless or living in a jail (including now)? No 09/03/2024 Hunger Vital Sign [...] Description 11/20/2024 11:00 AM EDT Office Visit [facility] [address] [place] [address] Zack Villarreal, [employer] [address] [place] [address] Health Maintenance Due Date Last Done Comments [...] this topic Medical Devices Implanted Type Area Branch Credit Counselor Device Identifier Shelf Expiration Date Model / Serial / Lot Stent,Synergy Mr 2.50 X 12 - [id number] Implanted:Qty: 1 on 07/14/2022 by Abby Azevedo MD at [facility] Drug Eluting Stent [employer] [id number] 01/22/2023 [id number] / / [id number] Procedures Procedure Name Priority Date/Time Associated Diagnosis [...] - 10.60 10*3/uL 09/05/2024 5:05 AM EDT [facility] RBC 3.31(L) 3.80 - 5.00 10*6/uL 09/05/2024 5:05 AM EDT [facility] Hemoglobin 10.2(L) 12.0 - 15.0 g/dL 09/05/2024 5:05 AM EDT [facility] Hematocrit 31.9(L) 36.0 - 45.0 % 09/05/2024 5:05 AM EDT [facility] MCV 96.4 82.0 - 98.0 fL 09/05/2024 5:05 AM EDT [facility] MCH 30.8 27.0 - 33.0 pg 09/05/2024 5:05 AM EDT [facility] MCHC 32.0 32.0 - 35.0 g/dL 09/05/2024 5:05 AM EDT [facility] RDW 14.0 11.5 - 15.0 % 09/05/2024 5:05 AM EDT [facility] Platelets 247 150 - 400 10*3/uL 09/05/2024 5:05 AM EDT [facility] Blood Venous blood specimen / Unknown Venipuncture / Unknown 09/05/2024 4:06 AM EDT 09/05/2024 4:46 AM EDT us Viv Livingston MD LAB BLOOD ORDERABLES Final Resul t [facility] [address] [place] [address] * (ABNORMAL) Basic metabolic panel (09/05/2024 4:06 AM EDT) Only the most recent of2 resultswithin the time period is included. Sodium 134(L) 136 - 145 mmol/L 09/05/2024 5:20 AM T [facility] Potassium 4.2 3.5 - 5.1 mmol/L 09/05/2024 5:20 AM [facility] Chloride 105 98 - 107 mmol/L 09/05/2024 5:20 AM T [facility] CO2 24 21 - 31 mmol/L 09/05/2024 5:20 AM [facility] BUN 26(H) 7 - 25 mg/dL 09/05/2024 5:20 AM [facility] Creatinine 1.24(H) 0.60 - 1.20 mg/dL 09/05/2024 5:20 AM [facility] Glucose 92 70 - 100 mg/dL 09/05/2024 5:20 AM [facility] Calcium 8.1(L) 8.6 - 10.3 mg/dL 09/05/2024 5:20 AM [facility] Anion Gap 9 7 - 20 mmol/L 09/05/2024 5:20 AM [facility] eGFR 46.5(L) >60.0 mL/min/1. 73m*2 09/05/2024 5:20 AM [facility] Comment:[facility] s estimated glomerular filtration rate (eGFR) will [...] individuals. BUN/Creatinine Ratio 21.0 08/27 5:20 AM [facility] Blood Venous blood specimen / Unknown Venipuncture / Unknown 09/05/2024 4:06 AM EDT 09/05/2024 4:40 AM EDT Viv Livingston MD LAB BLOOD ORDERABLES Final Resul t Performing Organization Address [facility] de Phone Number [facility] [address] [place] [address] * (ABNORMAL) Anti-Xa (Heparin Level) (09/04/2024 4:58 PM EDT) Only the most recent of3 resultswithin the time period is included. Anti-Xa (Heparin) <0.10(LL) 0.3 - 0.7 IU/mL 09/04/2024 6:20 PM EDT [facility] Comment:Rivaroxaban and Apix aban will interfere with the anti Xa assay used to monitor UFH and LMWH. Blood Venous blood specimen / Unknown Venipuncture / Unknown 09/04/2024 4:58 PM EDT 09/04/2024 5:37 PM EDT Alireza Mcallister MD LAB BLOOD ORDERABLES Final Resul t Performing Organization Address [facility] Co de Phone Number [facility] [address] [place] [address] * SARS-CoV-2 PCR (09/04/2024 12:33 PM EDT) SARS-CoV-2 PCR Negative Negative 09/04/2024 1:04 PM EDT [facility] Swab Nasal structure / Unknown Non-blood Collection / Unknown 09/04/2024 12:33 PM EDT 09/04/2024 12:38 PM EDT Narrative [facility] - 09/04/2024 1:04 PM EDT Testing methodology utilizes isothermal nucleic acid amplification technology for the differential and qualitative detection of SARS-CoV-2 viral nucleic acids. Viv Livingston MD LAB MICROBIOLOGY - GENERAL ORDER ADRIEN Final Result [facility]) [address] [place] [address] * Rapid influenza A/B PCR (09/04/2024 12:33 PM EDT) Rapid Influenza A PCR Negative Negative 09/04/2024 1:04 PM EDT [facility] Rapid Influenza B PCR Negative Negative 09/04/2024 1:04 PM EDT [facility] Swab Nasal structure / Unknown Non-blood Collection / Unknown 09/04/2024 12:33 PM EDT 09/04/2024 12:38 PM EDT Narrative [facility] - 09/04/2024 1:04 PM EDT Testing methodology utilizes isothermal nucleic acid amplification technology for the differential and qualitative detection of Influenza A and Influenza B viral nucleic acids. Viv Livingston MD LAB MICROBIOLOGY - GENERAL ORDER ADRIEN Final Result Performing Organization Address City/[facility]/ZIP Co de Phone Number [address] [address] * Mycoplasma pneumoniae PCR (09/04/2024 12:33 PM EDT) Pathologist [facility] Mycoplasma Pneumoniae Source Not Provided 09/07/2024 7:14 PM EDT [facility]) Comment: Specimen source was not provided. Please refer to the [facility] Test Directory for validated specimen source information: [email or web address]/[email or web address]. Interpret results with caution. Mycoplasma pneumo by PCR Not Detected 09/07/2024 7:14 PM EDT [facility]) Comment: NOT DETECTED - A negative result does not rule out the presence of PCR inhibitors in the patient specimen or assay specific nucleic acid in concentrations below the level of detection by the assay. INTERPRETIVE INFORMATION: Mycoplasma pneumoniae by PCR This test was developed and its performance characteristics determined by [facility]. It has not been cleared or approved by the US Food and Drug Administration. This test was performed in a CLIA certified laboratory and is intended for clinical purposes. Performed By: [facility] [address] [place] [address] Cooperative Education Coordinator: Amol Tran MD, PhD CLIA Number: [id number] Swab Nasopharyngeal structure / Unknown Non-blood Collection / Unknown 09/04/2024 12:33 PM EDT 09/04/2024 12:38 PM EDT Viv Livingston MD LAB MICROBIOLOGY - GENERAL ORDER ADRIEN Final Result Performing Organization Address City/[facility]/ZIP Co de Phone Number [facility] ([facility]) [address] [place] [address] * Legionella antigen, urine (09/04/2024 12:11 PM EDT) Legionella Antigen, Urine NEGATIVE NEG 09/04/2024 8:22 PM EDT [facility] Comment: L. pneumophila serogroup 1 antigen not detected. A negative result does not exclude infection with Leginella pnemophila serogroup 1 nor does it rule out other microbial-caused respiratory infections of disease caused by other serogroups of Legionella pneumophila. Test Performed by [facility] [address] [place] [address] - Released 09/04/2024 20:22 Urine Urine specimen obtained by clean catch procedure / Unknown Non-blood Collection / Unknown 09/04/2024 12:11 PM EDT 09/04/2024 12:18 PM EDT Viv Livingston MD LAB URINE ORDERABLES Final Resul t [facility] [address] [place] [address] * Blood culture, peripheral #2 (09/04/2024 9:37 AM EDT) Only the most recent of2 resultswithin the time period is included. Blood Culture No growth at 5 days CALIN 09/09/2024 10:01 AM EDT [facility]) Blood Venous blood specimen / Unknown Venipuncture / Unknown 09/04/2024 9:37 AM EDT 09/04/2024 9:49 AM EDT Viv Livingston MD LAB MICROBIOLOGY - GENERAL ORDER ADRIEN Final Result [facility] [address] [place] [address] * (ABNORMAL) High sensitivity CRP (09/04/2024 9:33 AM EDT) [facility] CRP, HIGH SENSITIVITY >300.0(H) <=3.0 mg/L 09/06/2024 1:25 PM EDT [facility] ([facility]) Comment: INTERPRETIVE INFORMATION: CRP, High Sensitivity Patients [...] 3.0 mg/L ... high risk Performed By: [facility] [address] [place] [address] Cooperative Education Coordinator: Amol Tran MD, PhD CLIA Number: [id number] Blood Venous blood specimen / Unknown Venipuncture / Unknown 09/04/2024 9:33 AM EDT 09/04/2024 9:57 AM EDT Viv Livingston MD LAB BLOOD ORDERABLES Final Resul t [facility]) [address] [place] [address] * LIMITED ECHO (TTE) W/ LIMITED DOPPLER, COLOR FLOW AND IMAGING AGENT (09/04/2024 8:22 AM EDT) Anatomical Region Laterality Modality Other 09/04/2024 8:05 AM EDT Narrative 09/04/2024 12:53 PM EDT 1 [facility] Heart Station [address] [place] [address] [phone] (fax) Echocardiogram-[facility] Name: CHIARA EDUARDO Study Date: 09/04/2024 08:05 AM B/P: 103 mmHg/56 mmHg HR: Date of : 1955 Location: [facility] Height: 63 in. Age: 69 [...] No pericardial effusion. Procedure Staff Reading Group: [facility] [employer] Gun Hand: Michael Gonzalez RDCS Ordering Physician: ALIREZA MCALLISTER Procedure Note Rosendo Mustafa MD - 09/04/2024 1 1 [facility] Heart Station [address] [facility] [place] [address] [phone] (fax) Echocardiogram-[facility] Name: CHIARA EDUARDO Study Date: 09/04/2024 08:05 AM B/P: 103 mmHg/56 mmHg HR: Date of : 1955 Location: [facility] Height: 63 in. Age: 69 [...] No pericardial effusion. Procedure Staff Reading Group: [facility] [employer] Hand: Michael Gonzalez RDCS Ordering Physician: ALIREZA MCALLISTER us Alireza Mcallister MD CV ECHO PROCEDURES Final Result * (ABNORMAL) High Sensitivity Troponin I (09/04/2024 4:17 AM EDT) Only the most recent of4 resultswithin the time period is included. High Sensitivity Troponin I 1,053(HH) <15 ng/L 09/04/2024 5:22 AM EDT [facility]) Blood Venous blood specimen / Unknown Venipuncture / Unknown 09/04/2024 4:17 AM EDT 09/04/2024 4:42 AM EDT Alireza Mcallister MD LAB BLOOD ORDERABLES Final Resul t Performing Organization Address [facility] [[email or web address]] de Phone Number [facility]) [address] [place] [address] * Sedimentation rate (09/04/2024 4:17 AM EDT) Sed Rate 21 <30 mm/hr 09/04/2024 9:1 2 AM EDT [facility] Blood Venous blood specimen / Unknown Venipuncture / Unknown 09/04/2024 4:17 AM EDT 09/04/2024 4:42 AM EDT us Viv Livingston MD LAB BLOOD ORDERABLES Final Resul t Performing Organization Address [facility] de Phone Number [facility]) [address] [place] [address] * (ABNORMAL) Magnesium (09/04/2024 4:17 AM EDT) Only the most recent of2 resultswithin the time period is included. Magnesium 1.8(L) 1.9 - 2.7 mg/dL 09/04/2024 5:17 AM EDT [facility]) Blood Venous blood specimen / Unknown Venipuncture / Unknown 09/04/2024 4:17 AM EDT 09/04/2024 4:42 AM EDT us Alireza Mcallister MD LAB BLOOD ORDERABLES Final Resul t Performing Organization Address [facility] Co de Phone Number [facility]) [address] [place] [address] * Arterial blood gas with ionized calcium (09/04/2024 4:14 AM EDT) pH, Arterial 7.36 7.35 - 7.45 pH 09/04/2024 4:19 AM EDT [facility] RESPIRATORY THERAPY pCO2, Arterial 42 35 - 48 mmHg 09/04/2024 4:19 AM EDT [facility] RESPIRATORY THERAPY pO2, Arterial 92 83 - 100 mmHg 09/04/2024 4:19 AM EDT [facility] RESPIRATORY THERAPY HCO3, Arterial 23.7 21.0 - 28.0 mEq/L 09/04/2024 4:19 AM EDT [facility] RESPIRATORY THERAPY Calcium, Ion 1.20 1.15 - 1.33 mmol/L 09/04/2024 4:19 AM EDT [facility] RESPIRATORY THERAPY O2 Sat, Arterial 97.9 94.0 - 98.0 % 09/04/2024 4:19 AM EDT [facility] RESPIRATORY THERAPY Base Excess, Arterial -1.8 -2.0 - 3.0 mmol/L 09/04/2024 4:19 AM EDT [facility] RESPIRATORY THERAPY Source Of Oxygen High flow nasal cannula 09/04/2024 4:19 AM EDT [facility] RESPIRATORY THERAPY FiO2 40 % 09/04/2024 4:19 AM EDT [facility] RESPIRATORY THERAPY Blood Arterial blood specimen / Unknown Arterial Puncture / Unknown 09/04/2024 4:14 AM EDT 09/04/2024 4:14 AM EDT Alireza Mcallister MD LAB BLOOD ORDERABLES Final Resul t [facility] RESPIRATORY THERAPY [address] [place] [address], * (ABNORMAL) Lipoprotein A (LPA) (09/03/2024 9:20 PM EDT) [facility] Signature Lipoprotein (a) 33(H) <=29 mg/dL 1:25 PM EDT [facility]) Comment: Performed By: [facility] [address] [place] [address] Cooperative Education Coordinator: Amol Tran MD, PhD CLIA Number: [id number] Blood Venous blood specimen / Unknown Venipuncture / Unknown 09/03/2024 9:20 PM EDT 09/03/2024 10:01 PM EDT us Alireza Mcallister MD LAB BLOOD ORDERABLES Final Resul t Performing Organization Address City/[facility]/ZIP Co de Phone Number [email or web address]) [address] [place] [address] * Sputum culture (09/03/2024 8:16 PM EDT) Gram Stain Result 10-25 Squamous Epithelial Cells Per Low Power Field 09/07/2024 8:22 AM EDT [facility] Gram Stain Result >25 Polys Per Low Power Field 09/07/2024 8:22 AM EDT [facility] Gram Stain Result Few Gram positive cocci in pairs 09/07/2024 8:22 AM EDT [facility] Sputum (Sputum, Expectorated) 09/03/2024 8:16 PM EDT 09/03/2024 8:26 PM EDT Narrative [facility] - 09/07/2024 8:22 AM EDT Light Growth Colonies Consistent with Upper Respiratory Terrie us Alireza Mcallister MD LAB MICROBIOLOGY - GENERAL ORDER ADRIEN Final Result Performing Organization Address City/[facility]/ZIP Co de Phone Number [facility] [address] [place] [address] * Lavender Top (09/03/2024 7:01 PM EDT) Pathologist [facility] Extra Tube Hold for add-ons. 09/03/2024 7:01 PM EDT [facility] Comment:Auto resulted. Blood Venous blood specimen / Unknown Venipuncture / Unknown 09/03/2024 5:54 PM EDT us Alireza Mcallister MD LAB BLOOD ORDERABLES Final Resul t [facility]) [address] [place], [place] [id number] * ECG 12 lead (09/03/2024 6:35 PM EDT) Only the most recent of2 resultswithin the time period is included. Ventricular Rate 93 BPM GE MUSE Atrial Rate 93 BPM GE MUSE WI Interval 138 ms GE MUSE QRS DURATION 76 ms GE MUSE QT Interval 354 ms GE MUSE QTC CALCULATION(BAZE TT) 440 ms GE MUSE P Salyer 69 degrees GE MUSE R-Salyer 35 degrees GE MUSE T Wave Salyer 45 degrees GE MUSE 09/03/2024 6:29 PM [...] Hold for add-ons. 09/03/2024 7:01 PM EDT [facility] Comment:Auto resulted. Blood Venous blood specimen / Unknown Venipuncture / Unknown 09/03/2024 5:53 PM EDT 09/03/2024 5:53 PM EDT us Alireza Mcallister MD LAB BLOOD ORDERABLES Final Resul t [facility] [address] [place] [address] * (ABNORMAL) aPTT - baseline (09/03/2024 5:33 PM EDT) aPTT 49.3(H) 25.0 - 35.0 Seconds 09/03/2024 6:24 PM EDT [facility]) Comment:Clinical significanc e of the APTT is questionable in the presence of heparin. Blood Venous blood specimen / Unknown Venipuncture / Unknown 09/03/2024 5:33 PM EDT 09/03/2024 5:52 PM EDT us Alireza Mcallister MD LAB BLOOD ORDERABLES Final Resul t [facility] [address] [place] [address] * XR chest 1 view (09/03/2024 5:27 [...] - 2.2 mmol/L 09/03/2024 5:59 PM EDT [facility]) Blood Venous blood specimen / Unknown Venipuncture / Unknown 09/03/2024 5:09 PM EDT 09/03/2024 5:32 PM EDT Alireza Mcallister MD LAB BLOOD ORDERABLES Final Resul t [facility] [address] [place] [address] * (ABNORMAL) CBC auto differential (09/03/2024 5:09 PM EDT) Auto WBC 19.92(H) 4.00 - 10.60 10*3/uL 09/03/2024 5:49 PM EDT [facility] RBC 3.95 3.80 - 5.00 10*6/uL 09/03/2024 5:49 PM EDT [facility] Hemoglobin 12.3 12.0 - 15.0 g/dL 09/03/2024 5:49 PM EDT [facility] Hematocrit 38.3 36.0 - 45.0 % 09/03/2024 5:49 PM EDT [facility] MCV 97.0 82.0 - 98.0 fL 09/03/2024 5:49 PM EDT [facility] MCH 31.1 27.0 - 33.0 pg 09/03/2024 5:49 PM EDT [facility] MCHC 32.1 32.0 - 35.0 g/dL 09/03/2024 5:49 PM EDT [facility] RDW 13.8 11.5 - 15.0 % 09/03/2024 5:49 PM EDT [facility] Neutrophils % 93.3(H) 40.0 - 72.0 % 09/03/2024 5:49 PM EDT [facility] Lymphocytes % 1.4(L) 20.0 - 45.0 % 09/03/2024 5:49 PM EDT [facility] Monocytes % 3.4(L) 5.0 - 12.0 % 09/03/2024 5:49 PM EDT [facility] Eosinophils % 1.2 0.0 - 6.0 % 09/03/2024 5:49 PM EDT [facility] Basophils % 0.2 0.0 - 1.0 % 09/03/2024 5:49 PM EDT [facility] [facility] ([facility]) Neutrophils Absolute 18.60(H) 1.60 - 7.60 10*3/uL 09/03/2024 5:49 PM EDT [facility] ([facility] Lymphocytes Absolute 0.28(L) 1.20 - 4.00 10*3/uL 09/03/2024 5:49 PM EDT [facility] ([facility]) Monocytes Absolute 0.67 0.10 - 1.00 10*3/uL 09/03/2024 5:49 PM EDT [facility] ([facility]) Eosinophils Absolute 0.24 0.00 - 0.50 10*3/uL 09/03/2024 5:49 PM EDT [facility] ([facility]) Basophils Absolute 0.03 0.00 - 0.20 10*3/uL 09/03/2024 5:49 PM EDT [facility] ([facility]) Platelets 272 150 - 400 10*3/uL 09/03/2024 5:49 PM EDT [facility] ([facility]) nRBC % 0.0 0 % 09/03/2024 5:49 PM EDT [facility] ([facility]) Immature Granulocytes % 0.5 0.0 - 1.0 % 09/03/2024 5:49 PM EDT [facility] ([facility]) Immature Granulocytes Absolute 0.10 0.00 - 0.20 10*3/uL 09/03/2024 5:49 PM EDT [facility] ([facility]) Blood Venous blood specimen / Unknown Venipuncture / Unknown 09/03/2024 5:09 PM EDT 09/03/2024 5:40 PM EDT us Alireza Mcallister MD LAB BLOOD ORDERABLES Final Resul t [facility] ([facility]) [address] [place] [address] * (ABNORMAL) B-type natriuretic peptide (09/03/2024 5:09 PM EDT) Pathologist [facility] BNP 708(H) 0 - 100 pg/mL 09/03/2024 6:09 PM EDT [facility] ([facility] Blood Venous blood specimen / Unknown Venipuncture / Unknown 09/03/2024 5:09 PM EDT 09/03/2024 5:40 PM EDT us Alireza Mcallister MD LAB BLOOD ORDERABLES Final Resul t [facility] ([facility]) [address] [place] [address] * (ABNORMAL) Hemoglobin A1c (09/03/2024 5:09 PM EDT) [facility] Hemoglobin A1C 6.6(H) 4.0 - 6.0 % 09/04/2024 9:06 AM EDT [facility]) Estimated Average Glucose 143 mg/dL 09/04/2024 9:06 AM EDT [facility]) Blood Venous blood specimen / Unknown Venipuncture / Unknown 09/03/2024 5:09 PM EDT 09/03/2024 5:40 PM EDT us Alireza Mcallister MD LAB BLOOD ORDERABLES Final Resul t [facility] ([facility]) [address] [place] [address] * Lipid panel (09/03/2024 5:09 PM EDT) Pathologist [facility] Triglycerides 44 <150 mg/dL 09/03/2024 6:44 PM EDT [facility] ([facility]) Comment: TRIGLYCERIDE REFERENCE RANGE: 20 YEARS AND OLDER CARDIOVASCULAR RISK LESS THAN 150 mg/dL LOW RISK 150 TO 199 mg/dL BORDERLINE RISK 200 mg/dL AND GREATER HIGH RISK Cholesterol 125 120 - 200 mg/dL 09/03/2024 6:44 PM EDT [facility]) LDL Calculated 46 0 - 160 mg/dL 09/03/2024 6:44 PM EDT [facility] HDL 70 23 - 92 mg/dL 09/03/2024 6:44 PM EDT [facility] Non HDL Cholesterol 55 09/03/2024 6:44 PM EDT [facility] Total VLDL-C 9 0 - 40 mg/dL 09/03/2024 6:44 PM EDT [facility] Cholesterol/HDL Ratio 1.8 mg/dL 09/03/2024 6:44 PM EDT [facility] Blood Venous blood specimen / Unknown Venipuncture / Unknown 09/03/2024 5:09 PM EDT 09/03/2024 5:40 PM EDT us Alireza Mcallister MD LAB BLOOD ORDERABLES Final Resul t [facility] ([facility]) [address] [place] [address] * (ABNORMAL) Comprehensive metabolic panel (09/03/2024 5:09 PM EDT) Sodium 134(L) 136 - 145 mmol/L 09/03/2024 6:09 PM EDT [facility] Potassium 4.8 3.5 - 5.1 mmol/L 09/03/2024 6:09 PM EDT [facility]) Chloride 103 98 - 107 mmol/L 09/03/2024 6:09 PM EDT [facility]) CO2 25 21 - 31 mmol/L 09/03/2024 6:09 PM EDT [facility]) Anion Gap 11 7 - 20 mmol/L 09/03/2024 6:09 PM EDT [facility]) BUN 29(H) 7 - 25 mg/dL 09/03/2024 6:09 PM EDT [facility]) Creatinine 1.48(H) 0.60 - 1.20 mg/dL 09/03/2024 6:09 PM [facility] ([facility]) BUN/Creatinine Ratio 19.6 06/0 10/2024 6:09 PM [facility] ([facility]) Glucose 130(H) 70 - 100 mg/dL 09/03/2024 6:09 PM [facility] ([facility]) Calcium 8.3(L) 8.6 - 10.3 mg/dL 09/03/2024 6:09 PM [facility] ([facility]) AST 25 13 - 39 U/L 09/03/2024 6:09 PM [facility] ([facility]) ALT (SGPT) 19 7 - 52 U/L 09/03/2024 6:09 PM [facility] ([facility]) Alkaline Phosphatase 54 34 - 104 U/L 09/03/2024 6:09 PM [facility] ([facility] Total Protein 6.0 6.0 - 8.3 g/dL 09/03/2024 6:09 PM [facility] ([facility]) Albumin 3.6 3.5 - 5.7 g/dL 09/03/2024 6:09 PM [facility]) Total Bilirubin 0.4 0.3 - 1.0 mg/dL 09/03/2024 6:09 PM [facility] ([facility]) eGFR 37.6(L) >60.0 mL/min/1. 73m*2 09/03/2024 6:09 PM [facility] ([facility]) Comment:[facility] s estimated glomerular filtration rate (eGFR) will [...] MD LAB BLOOD ORDERABLES Final Resul t [facility] ([facility]) [address] [place] [id number] from Last 3 Months Insurance [facility] MEDIC[facility] ADVANTAGE Advance Directives * Full Code [...] 12:10 PM 07/14/2022 6:57 PM Care Teams Assistance Representative Relationship Specialty Start Date End Date Nolvia Jimenez MD [address] [place] [address] PCP - General Nurse Practitioner 06/15/24 Brien Coughlin MD [address] [place] [address] Pulmonary Disease 09/05/24
--- OUTSIDE RECORDS SUMMARY | 2024-11-08 12:13 | XMS_ITS | Encounter Summary ---
Author Organization [facility] Address [address] [place] [address] Care Team Providers Care Mixer Runner Name Role Phone Argelia Cheng MOWER MECHANIC Unavailable [phone] Trace Kelly MD Primary Care Provider [phone] Argelia Cheng MOWER MECHANIC Unavailable [phone] Encounter Details Date Type Department Care Team (Late st Contact Info) Description 10/23/2024 Clinisync Result Encounter [facility] External Department Unsolicited [...] 06/08/2024 How often do you attend [facility] or evangelical services? 1 to 4 times per year [...] and heating? Not hard at all 06/08/2024 [facility] - Occupational [...] Visit [facility] [address] [place] [address] Nolvia Jimenez NP [address] [place] [address] documented as of this encounter Procedures Procedure Name Priority Date/Time Associated Diagnosis Comments ITP 10/23/2024 2:51 PM EDT documented in this encounter Results * ITP (10/23/2024 2:51 PM EDT) Anatomical Region Laterality Modality Other 10/23/2024 2:51 PM EDT Narrative 11/03/2024 10:21 [place] [address] Cardiac Rehab Report Signed Patient: CHIARA JUARES MR#: [id number] : 1955 Acct:[id number] Age/Sex: 69 / F ADM Date: 10/05/24 Loc: CR Attending Dr: Abby Ward M.D. Ordering Physician: Abby Ward M.D. Date of Service: 10/23/24 Procedure(s): ITP Accession Number(s): [id number] cc: [facility] Test Date: 2024-10-23 Pat Name: CHIARA JUARES Department: Room: - Gender: Female Nutritional Services Director: : 1955 Requested By: ABBY WARD Order Number: [id number] Dane MD: HERIBERTO BARTON M.D. Interpretive Statements Patient may continue cardiac rehab as outlined in the treatment plan. Electronically Signed On 11-03-2024 10:21:15 EDT by HERIBERTO BARTON M.D. Dictated By: HERIBERTO BARTON Signed By: 11/03/24 1021 11/03/24 102 DD/ 145 TD/TT: Nuclear Worker Technician: Procedure Note Radiology, Radiologist, MD - 11/03/2024 [place] [address] Cardiac Rehab Report Signed Patient: CHIARA JUARES AMR#: [id number] : 1955cct:[id number] Age/Sex: 69 / FADM Date: 10/05/24 Loc: CR Attending Dr: Abby Ward M.D. Ordering Physician: Abby Ward M.D. Date of Service: 10/23/24 Procedure(s): ITP Accession Number(s): [id number] cc: [facility] Test Date: 2024-10-23 Pat Name: CHIARA JUARES Department: Room: - Gender: Female Nutritional Services Director: : 1955 Requested By: ABBY WARD Order Number: [id number] Dane MD: HERIBERTO BARTON M.D. Interpretive Statements Patient may continue cardiac rehab as outlined in the treatment plan. Electronically Signed On 11-03-2024 10:21:15 EDT by HERIBERTO BARTON M.D. Dictated By: HERIBERTO BARTON Signed By:11/03/24 1021 11/03/24 1021 DD/ 145 TD/TT: Nuclear Worker Technician: us Generic External Data Provider [facility] Final Result documented in this encounter Visit Diagnoses Not on filedocumented in this encounter Care Teams Mixer Runner Relationship Specialty Start Date End Date Trace Kelly MD [address] [place] [address] PCP - General Family Medicine 01/17/24 Argelia Cheng NP PCP - Alexx [place] 03/29/24 Argelia Cheng NP Nurse Practitioner Family Medicine 11/10/23 documented as of this encounter
--- OUTSIDE RECORDS SUMMARY | 2024-11-08 12:13 | XMS_ITS | Encounter Summary ---
Author Organization [facility] Address [address] [place] [address] Care Team Providers Care Rouge Presser Name Role Phone Argelia Cheng PARACHUTE ACCESSORIES ATTACHER Unavailable [phone] Trace Kelly MD Primary Care Provider [phone] Argelia Cheng PARACHUTE ACCESSORIES ATTACHER Unavailable [phone] Encounter Details Date Type Department Care Team (Late st Contact Info) Description 10/23/2024 Abstract [facility] [address] [place] [id number] Nolvia Jimenez NP [address] [place] [id number] Social History Tobacco Use Types Packs/Day Years [...] often do you attend chur ch or synagogue services? 1 to 4 times per year 06/08/2024 Do you belong to any clubs o r organizations such as yazdanism groups, unions, fraternal or athletic groups, or [...] and heating? Not hard at all 06/08/2024 [facility] [place] of Occupat ional Health - Occupational Stress [...] any time in the past 12 m [facility], were you homeless or living in a long term (including now)? No 06/08/2024 Comments Unknown Sex and Gender Information Value Date Recorded Sex Assigned at Not on file Legal Sex Female 3:02 PM EDT Gender Identity Not on file Sexual Orientation Not on file documented as of this encounter Plan of Treatment Upcoming Encounters Date Type Department Care Team (Late st Contact Info) Description 11/13/2024 1:40 PM EDT Office Visit [facility] [address] [place] [address] Nolvia Jimenez NP [address] [place] [address] documented as of this encounter Visit Diagnoses Not on filedocumented in this encounter Care Teams Rouge Presser Relationship Specialty Start Date End Date Trace Kelly MD [address] [place] [address] PCP - General Family Medicine 01/17/24 Argelia Cheng NP PCP - Alexx FLOWER 03/29/24 Argelia Cheng NP Nurse Practitioner Family Medicine 11/10/23 documented as of this encounter
--- OUTSIDE RECORDS SUMMARY | 2024-11-08 12:13 | XMS_ITS | Encounter Summary ---
Author Organization [facility] Address [id number] [address] [place] [address] Care Team Providers Care Corrections Sergeant Name Role Phone Milvia Gay C.O.D. BILLER-SUBSTATION MAINTENANCE TECHNICIAN Primary Care Provider [phone] Encounter Details Date Type Department Care Team (Late st Contact Info) Description 02/05/2020 Orders Only [facility] [address] [facility] [address] [place] [address] Nic Muñiz MD [facility] [address] 10/28/23 Left [place] [address] Social History Tobacco Use Types Packs/Day Years [...] and Family Twice a week 01/14/2019 Attends Buddhism Services Never 01/14 Active Member of Clubs [...] Answer Date Recorded Total Score 0 01/22/2020 [facility] [place] of Occupat ional Health - Occupational Stress [...] documented as of this encounter Care Teams Corrections Sergeant Relationship Specialty Start Date End Date Milvia Gay APRN-MARISA [address] [place] [address] PCP - General Family Medicine 01/16/19 06/13/20 documented as of this encounter
--- OUTSIDE RECORDS SUMMARY | 2024-11-08 12:13 | XMS_ITS | Encounter Summary ---
Author Organization [facility] Address [address] [place] [address] Care Team Providers Care Radiation Control Technician Name Role Phone Argelia Cheng HEALTH SCIENCES DEPARTMENT CHAIR Unavailable [phone] Trace Kelly MD Primary Care Provider Argelia Cheng HEALTH SCIENCES DEPARTMENT CHAIR Unavailable [phone] Encounter Details Date Type Department Care Team (Late st Contact Info) Description 10/23/2024 Abstract [facility] [address] [place] [phone] Nolvia Jimenez NP [address] [place] [address] Social History Tobacco Use Types Packs/Day Years [...] often do you attend chur ch or mosque services? 1 to 4 times per year [...] and heating? Not hard at all 06/08/2024 [facility] [place] of Occupat ional Health - Occupational Stress [...] any time in the past 12 m [facility], were you homeless or living in a assisted (including now)? No 06/08/2024 Comments Unknown Sex and Gender Information Value Date Recorded Sex Assigned at Not on file Legal Sex Female 3:02 PM EDT Gender Identity Not on file Sexual Orientation Not on file documented as of this encounter Plan of Treatment Upcoming Encounters Date Type Department Care Team (Late st Contact Info) Description 11/13/2024 1:40 PM EDT [facility] [address] [place] [address] Nolvia Jimenez NP [address] [place] [address] documented as of this encounter Visit Diagnoses Not on filedocumented in this encounter Care Teams Radiation Control Technician Relationship Specialty Start Date End Date Trace Kelly MD [address] [place] [address] PCP - General Family Medicine 01/17/24 Argelia Cheng NP PCP - Alexx FLOWER 03/29/24 Argelia Cheng NP Nurse Practitioner Family Medicine 11/10/23 documented as of this encounter
--- OUTSIDE RECORDS SUMMARY | 2024-11-08 12:13 | XMS_ITS | Clinical Summary ---
Author Organization [facility] Address [address] [place] [address] Care Team Providers Care Almond Huller Name Role Phone Argelia Cheng PROPOSAL MANAGER Unavailable [phone] Trace Kelly MD Primary Care Provider [phone] Argelia Cheng PROPOSAL MANAGER Unavailable [phone] Allergies Active Allergy Reactions Criticality Noted Date [...] days 45 tablet 1 06/09/19 25 Active metoprolol succinate XL (Toprol-XL) 50 MG [...] by mouth at bedtime 90 tablet 1 10/13/19 25 025 Active atorvastatin (Lipitor) 80 MG tabletIndications :Other hyperlipidemia Take 1 tablet (80 mg) by mouth Daily 90 tablet 1 04/03/19 25 025 Discontinu ed(Reorder ) ranolazine (Ranexa) 500 MG 12 hr tablet Take 500 mg by mouth in the morning and 500 mg in the evening. 05/23/19 25 025 Discontinu ed(Therapy completed) Budeson-Glycopyrr ol-Formoterol (Breztri Aerosphere) 160-9-4.8 MCG/ACT aerosol Inhale 160 mcg in the morning. 025 Discontinu ed(Therapy completed) dapagliflozin (Farxiga) 10 MG Take 10 mg by mouth in the morning. 07/04/19 25 025 atorvastatin (Lipitor) 80 MG tabletIndications :Other hyperlipidemia Take 1 tablet (80 mg) by mouth at bedtime 90 tablet 1 10/11/19 25 025 Discontinu ed(Reorder ) triamcinolone (Kenalog) 0.5 % creamIndications: Bug bite, initial encounter Apply topically in the morning and in the evening and before bedtime. Do all this for 14 days. 60 g 10/19/19 025 Active Problems Problem Noted Date Diagnosed Date Bug bites 10/18/2024 Positive colorectal cancer screening using Colog uard test 10/11/2024 Chronic respiratory failure 10/10/2024 Other hyperlipidemia 10/10/2024 Type 2 diabetes mellitus without complications 0 10/10/2024 Assessment & Plan (10/10/2024 6:53 AM EDT): HTN, HLD Other constipation 10/10/2024 Assessment & Plan (10/10/2024 5:40 PM EDT): Miralax not helping Will order abd xray Heart failure 10/10/2024 Assessment & Plan (10/10/2024 5:43 PM EDT): I did contact [facility] cardiology office updated on vital signs, weight and exam They will message pharmacists to see about diuretic Check cxr Acute hypoxic respiratory failure 09/03/2024 Assessment & [...] Essential (primary) hypertension 06/08/2024 Assessment & Plan (10/10/2024 5:40 PM EDT): Please check blood pressure daily and record DASH diet Limit caffeine Take medication as directed Contact office if chest pain, pressure, dizziness, shortness of breath, swelling legs Recommend slow position changes Current meds: arb, b shyam, nitrate Assessment & Plan (09/06/2024 6:43 PM EDT): [...] Managed by Dr. White. Assessment & Plan (10/10/2024 5:39 PM EDT): Current meds: albuterol, trelegy, Under the care of pulmonology [facility] I do not think her current dypsnea is COPD Will check xray Assessment & Plan (06/08/2024 7:42 AM EDT): Current meds: albuterol, trelegy, Under the care of pulmonology [facility] Coronary artery disease invo lving [place] coronary artery of [place] heart without angina pectoris 12/28/2016 Overview (04/12/2023): Last Assessment & Plan: Coronary artery disease is stable without any concerning symtpoms Continue GDMT- ASA, brilinta, toprol, imdur continue risk factor modifications- heart healthy diet, regular exercise as tolerated and continue all medications. Assessment & Plan (09/06/2024 6:43 PM EDT): Reviewed cardiology notes from [facility] Did not feel elevated trop was related to DC Assessment & Plan (06/08/2024 7:39 AM EDT): Under the care of cardiology Current meds: statin, asa, imdur, b shyam, arb, diuretic, and ranexa Aggressive risk factor modification Assessment & Plan (04/12/2023 2:53 PM EST): Stable. No CP, SOB, palpitations. On ASA, Effient, BB, statin Follows [facility] cardiology. Lower back pain 12/28/2016 Assessment [...] Encounters Date Type Department Care Team Description 10/23/2024 Clinisync Result Encounter [facility] External Department Unsolicited Provider, Generic External Data 10/23/2024 Abstract [facility] [address] [place] [address] Nolvia Jimenez NP 10/23/2024 Abstract [facility] [address] [place] [address] Nolvia Jimenez NP 10/18/2024 Refill [facility] [address] [place] [address] Nolvia Jimenez NP Bug bite, initial encounter (Primary Dx) 10/16/2024 Abstract [facility] [address] [place] [address] Nolvia Jimenez NP 10/12/2024 Refill [facility] [address] [place] [address] Trace Kelly MD Other hyperlipidemia 10/11/2024 Orders Only [facility] [address] [place] [address] Nolvia Jimenez NP Other constipation (Primary Dx); Positive colorectal cancer screening using Cologuard test 10/10/2024 3:40 PM EDT Office Visit [facility] [address] [place] [address] Nolvia Jimenez NP Essential (primary) hypertension (Primary Dx); Morbid (severe) obesity due to excess calories ([facility]); Other hyperlipidemia ; Type 2 diabetes mellitus without complications (HCC); Emphysema, unspecified (HCC); Chronic obstructive pulmonary disease with acute exacerbation (HCC); Other constipation; Heart failure, unspecified HF chronicity, unspecified heart failure type (HCC) 10/10/2024 Refill [facility] [address] [place] [address] Nolvia Jimenez NP Other constipation (Primary Dx) 10/10/2024 Clinisync Result Encounter [facility] External Department Unsolicited Nolvia Jimenez NP 10/10/2024 Clinisync Result Encounter [facility] External Department Unsolicited Nolvia Jimenez NP 10/10/2024 Clinisync Result Encounter [facility] External Department Unsolicited Provider, Generic External Data 10/09/2024 Patient Outreach [facility] [place] [address] [place] [address] Gillian Mcnulty MA 10/06/2024 Travel 10/03/2024 Clinisync Result Encounter [facility] External Department Unsolicited Provider, Generic External Data 10/03/2024 Clinisync Result Encounter [facility] External Department Unsolicited Provider, Generic External Data 10/02/2024 Clinisync Result Encounter [facility] External Department Unsolicited Provider, Generic External Data 10/02/2024 Patient Outreach [place] [address] [place] [address] Gillian Mcnulty MA 09/18/2024 Patient Outreach [place] [address] [place] [address] Gillian Mcnulty MA 09/12/2024 Patient Outreach [place] [address] [place] [address] Gillian Mcnulty MA 09/06/2024 3:00 PM EDT Office Visit [facility] [address] [place] [address] Nolvia Jimenez NP Pneumonia of right lower lobe due to infectious organism (Primary Dx); Acute hypoxic respiratory failure (HCC); Coronary artery disease involving [place] coronary artery of [place] heart without angina pectoris ; Essential (primary) hypertension ; Chronic kidney disease, stage 3b ([facility]); Morbid (severe) obesity due to excess calories ([facility]) 09/06/2024 Patient Outreach [place] [address] [place] [address] Lovely Cruz LPN 09/04/2024 Orders Only [facility] [address] [place] [address] Adan Parmar MD 09/04/2024 Abstract [facility] [address] [place] [address] Nolvia Jmienez NP 09/03/2024 Clinisync Result Encounter [facility] External Department Unsolicited Provider, Generic External Data from Last 3 Months Family History Medical History Relation Name Comments Heart disease Father Hypertension Father COPD Mother Heart disease Mother Hypertension Mother Stroke Mother Emphysema Sister Relation Name Status Comments Father Mother Sister Social History Tobacco Use Types Packs/Day Years Used Date Smoking Tobacco: Former Cigarettes 04 27 1 986 - 2016 Smokeless Tobacco: Never [...] often do you attend chur ch or samaritan services? 1 to 4 times per year 06/08/2024 Do you belong to any clubs o r organizations such as jain groups, unions, fraternal or athletic groups, or [...] at all 06/08/2024 [facility] - Occupational [...] any time in the past 12 m [facility], were you homeless or living in a senior care (including now)? No 06/08/2024 Comments Unknown Sex [...] Office Visit [facility] [address] [place] [address] Nolvia Jimenez [place] [address] [place] [address] Health Maintenance Due Date Last Done Comments [...] Diagnosis Comments ITP 10/23/2024 2:51 PM EDT XR CHEST 2V 10/10/2024 5:04 PM EDT XR ABDOMEN 1V 10/10/2024 5:03 PM EDT ALL BASIC METABOLIC PANEL Routine 10/10/2024 10:27 AM EDT ITP 10/03/2024 12:45 PM EDT ALL BASIC METABOLIC PANEL Routine 10/03/2024 12:00 PM EDT ITP 10/02/2024 11:45 AM EDT XR CHEST 1 VIEW Routine 09/04/2024 11:24 AM EDT BLOOD CULTURE 2 Routine 09/03/2024 5:52 AM EDT BLOOD CULTURE 1 Routine 09/03/2024 4:58 AM EDT LAB COLOGUARD COLON CANCER SCREEN Routine 02/15/2024 10:21 AM EST from Last 3 Months or Most Recently Relevant to Health Maintenance Results * ITP (10/23/2024 2:51 PM EDT) Only the most recent of3 resultswithin the time period is included. Anatomical Region Laterality Modality Other 10/23/2024 2:51 PM EDT Narrative 11/03/2024 10:[place] [address] Cardiac Rehab Report Signed Patient: CHIARA EDUARDO MR#: [id number] : 1955 Acct:[id number] Age/Sex: 69 / F ADM Date: 10/05/24 Loc: CR Attending Dr: Abby Ward M.D. Ordering Physician: Abby Ward M.D. Date of Service: 10/23/24 Procedure(s): ITP Accession Number(s): [id number] cc: The [facility] Test Date: 2024-10-23 Pat Name: CHIARA EDUARDO Department: Room: - Gender: Female Client Associate: : 1955 Requested By: ABBY WARD Order Number: [id number] Reading MD: HERIBERTO BARTON M.D. Interpretive Statements Patient may continue cardiac rehab as outlined in the treatment plan. Electronically Signed On 11-03-2024 10:21:15 EDT by HERIBERTO BARTON M.D. Dictated By: HERIBERTO BARTON Signed By: 11/03/24 1021 11/03/24 1021 DD/ 1451 TD/TT: Export Documents Clerk: Procedure Note Radiology, Radiologist, - 11/03/[address] [address] Cardiac Rehab Report Signed Patient: CHIARA EDUARDO AMR#: [id number] : 1955cct:[id number] Age/Sex: 69 / FADM Date: 10/05/24 Loc: CR Attending Dr: Abby Ward M.D. Ordering Physician: Abby Ward M.D. Date of Service: 10/23/24 Procedure(s): ITP Accession Number(s): [id number] cc: The [facility] Test Date: 2024-10-23 Pat Name: CHIARA EDUARDO Department: Room: - Gender: Female Client Associate: : 1955 Requested By: ABBY WARD Order Number: [id number] Reading MD: HERIBERTO BARTON M.D. Interpretive Statements Patient may continue cardiac rehab as outlined in the treatment plan. Electronically Signed On 11-03-2024 10:21:15 EDT by HERIBERTO BARTON M.D. Dictated By: HERIBERTO BARTON Signed By:11/03/24 1021 11/03/24 1021 DD/ 1451 TD/TT: Export Documents Clerk: Generic External Data Provider [facility] Final Result * XR CHEST 2V (10/10/2024 5:04 PM EDT) Anatomical Region Laterality Modality Other 10/10/2024 5:04 PM EDT Narrative 10/10/2024 5:06 [place] [address] XRay Report Signed Patient: CHIARA EDUARDO MR#: [id number] : 1955 Acct:[id number] Age/Sex: 69 / F ADM Date: 10/10/24 Loc: RAD Attending Dr: Nolvia Jimenez NP Ordering Physician: Nolvia Jimenez NP Date of Service: 10/10/24 Procedure(s): XR chest 2V Accession Number(s): [id number] cc: Nolvia Jimenez NP The [address] [address] Patient Name: CHIARA EDUARDO MRN: [id number] date: 1955 Sex: F Assigned Patient Location: [facility] Current Patient Location: [facility] Accession/Order Number: [id number] Exam Date: 10/10/2024 17:03 Report Date: 10/10/2024 17:04 At the request of: NOLVIA JIMENEZ NP Procedure: XR chest 2V XR chest 2V 10/10/2024 4:54 PM SIGNS AND SYMPTOMS: Dyspnea, CHF, COPD PROTOCOL: Frontal and lateral radiographs of the chest COMPARISON: 09/03/2024 FINDINGS: The trachea is midline. The heart and mediastinal structures are within normal limits. The lung parenchyma is clear. The bony thorax is intact. Degenerative changes are noted in the thoracic spine. There is evidence of prior cholecystectomy in the right upper quadrant. XR/XR chest 2V IMPRESSION: No acute cardiopulmonary pathology. Impression dictated by: Tahir Garcia M.D. 10/10/2024 5:04 PM Dictation Location: [place] [address] Electronically authenticated by: [id number] Y Date: 10/10/2024 17:04 Dictated By: Tahir Garcia M.D. Signed By: 10/10/241705 DD/ 03 TD/TT: Export Documents Clerk: Procedure Note Radiology, Radiologist, MD - 10/10/2024 The [place] [id number] XRay Report Signed Patient: CHIARA EDUARDO AMR#: [id number] : 1955cct:[id number] Age/Sex: 69 / FADM Date: 10/10/24 Loc: RAD Attending Dr: Nolvia Jimenez NP Ordering Physician: Nolvia Jimenez NP Date of Service: 10/10/24 Procedure(s): XR chest 2V Accession Number(s): [id number] cc: Nolvia Jimenez NP [address] [address] Patient Name: CHIARA EDUARDO MRN: [id number] date: 1955 Sex: F Assigned Patient Location: [facility] Current Patient Location: [facility] Accession/Order Number: [id number] Exam Date: 10/10/2024 17:03 Report Date: 10/10/2024 17:04 At the request of: NOLVIA JIMENEZ NP Procedure: XR chest 2V XR chest 2V 10/10/2024 4:54 PM SIGNS AND SYMPTOMS: Dyspnea, CHF, COPD PROTOCOL: Frontal and lateral radiographs of the chest COMPARISON: 09/03/2024 FINDINGS: The trachea is midline. The heart and mediastinal structures are within normal limits. The lung parenchyma is clear. The bony thorax is intact. Degenerative changes are noted in the thoracic spine. There is evidenceof prior cholecystectomy in the right upper quadrant. XR/XR chest 2V IMPRESSION: No acute cardiopulmonary pathology. Impression dictated by: Tahir Garcia M.D. 10/10/2024 5:04 PM Dictation Location: [place] [address] Electronically authenticated by: [id number] Y Date: 7:04 Dictated By: Tahir Garcia M.D. Signed By:10/10/241705 DD/ 03 TD/TT: Export Documents Clerk: Nolvia Jimenez NP [facility] Final Result * XR ABDOMEN 1V (10/10/2024 5:03 PM EDT) Anatomical Region Laterality Modality Other 10/10/2024 5:03 PM EDT Narrative 10/10/2024 5:05 PM EDT The [place] [id number] XRay Report Signed Patient: CHIARA EDUARDO MR#: [id number] : 1955 Acct:[id number] Age/Sex: 69 / F ADM Date: 10/10/24 Loc: RAD Attending Dr: Nolvia Jimenez NP Ordering Physician: Aichholz,Nolvia PROPOSAL MANAGER Date of Service: 10/10/24 Procedure(s): XR abdomen 1V Accession Number(s): [id number] cc: Nolvia Jimenez NP The [address] [address] Patient Name: CHIARA EDUARDO MRN: [id number] date: 1955 Sex: F Assigned Patient Location: RAD Current Patient Location: RAD Accession/Order Number: [id number] Exam Date: 10/10/2024 17:01 Report Date: 10/10/2024 17:03 At the request of: NOLVIA JIMENEZ NP Procedure: XR abdomen 1V XR abdomen 1V 10/10/2024 4:54 PM SIGNS AND SYMPTOMS: Shortness of breath, constipation PROTOCOL: Frontal radiographs of the abdomen and pelvis COMPARISON: None FINDINGS: There is a moderate to large amount of stool within the colon. Surgical clips are present in the right upper quadrant consistent with prior cholecystectomy. Degenerative changes are noted in the thoracolumbar spine. Degenerative changes are noted in the right hip. XR/XR abdomen 1V IMPRESSION: No bowel obstruction or free air. There is a moderate to large amount of stool within the colon. This is consistent with the history of constipation. Impression dictated by: Tahir Garcia M.D. 10/10/2024 5:03 PM Dictation Location: [place] [address] Electronically authenticated by: [id number] Y Date: 10/10/2024 17:03 Dictated By: Tahir Garcia M.D. Signed By: 10/10/241704 DD/ 02 TD/TT: Export Documents Clerk: Procedure Note Radiology, Radiologist, MD - 10/10/[address] [address] XRay Report Signed Patient: CHIARA EDUARDO AMR#: [id number] : 1955cct:[id number] Age/Sex: 69 / FADM Date: 10/10/24 Loc: RAD Attending Dr: Nolvia Jimenez NP Ordering Physician: Nolvia Jimenez NP Date of Service: 10/10/24 Procedure(s): XR abdomen 1V Accession Number(s): [id number] cc: Nolvia Jimenez NP [address] [address] Patient Name: CHIARA EDUARDO MRN: [id number] date: 1955 Sex: F Assigned Patient Location: [facility] Current Patient Location: RAD Accession/Order Number: [id number] Exam Date: 10/10/2024 17:01 Report Date: 10/10/2024 17:03 At the request of: NOLVIA JIMENEZ NP Procedure: XR abdomen 1V XR abdomen 1V 10/10/2024 4:54 PM SIGNS AND SYMPTOMS: Shortness of breath, constipation PROTOCOL: Frontal radiographs of the abdomen and pelvis COMPARISON: None FINDINGS: There is a moderate to large amount of stool within the colon. Surgicalclips are present in the right upper quadrant consistent with priorcholecystectomy. Degenerative changes are noted in the thoracolumbar spine. Degenerative changes are noted in the right hip. XR/XR abdomen 1V IMPRESSION: No bowel obstruction or free air. There is a moderate to large amount of stool within the colon. This is consistent with the history of constipation. Impression dictated by: Tahir Garcia M.D. 10/10/2024 5:03 PM Dictation Location: [place] [address] Electronically authenticated by: [id number] Y Date: 7:03 Dictated By: Tahir Garcia M.D. Signed By:10/10/24 1705 DD/ 02 TD/TT: Export Documents Clerk: us Nolvia Jimenez NP [facility] Final Result * (ABNORMAL) ALL BASIC METABOLIC PANEL (10/10/2024 10:27 AM EDT) Only the most recent of2 [...] 0.55 - 1.02 mg/dL TBH TBH EGFR-AF VENEZUELAN 41(L) >=60 mL/min/1.7 3m 2 TBH TBH EGFR-NON AF V[place]AN 34(L) >=60 mL/min/1.7 3m 2 TBH BUN CREATININE RATIO 15.2 TBH CALCIUM 8.9 8.5 - 10.1 mg/dL TBH 10/10/2024 10:2 7 AM EDT 10/10/2024 10:27 AM EDT Narrative [facility] - 10/10/2024 11:16 AM EDT Generic External Data Provider [facility] F inal Result Performing Organization Address [facility] de Phone Number [facility] * XR chest 1 view (09/04/2024 11:24 [...] ORDERAB LES Final Result Performing Organization Address [facility] Co de Phone Number [facility] * BLOOD CULTURE 1 (09/03/2024 4:58 AM EDT) BLOOD CULTURE 1 Blood Culture 1 NG5D NO GROWTH AT 5 DAYS.^NO GROWTH AT 5 DAYS. TB 09/03/2024 4:58 AM EDT 09/03/2024 5:52 AM EDT Narrative [facility] - 09/08/2024 2:45 PM EDT us Generic External Data Provider LAB BLOOD ORDERAB LES Final Result [facility] * Cologuard?? colon cancer screening (02/15/2024 10:21 AM EST) Stool Shaikh [facility] ORDER ADRIEN Final Result from Last 3 Months or Most Recently Relevant to Health Maintenance Insurance [employer] Advance Directives Documents on File Type Date Recorded Patient Midwife Expl anation Power of Boarding House Manager 09/06/2024 3:49 PM [facility] power of director cloud transformation-[facility] Care Teams Almond Huller Relationship Specialty Start Date End Date Trace Kelly MD [address] [place] [address] PCP - General Family Medicine 01/17/24 Argelia Cheng NP PCP - Alexx FLOWER 03/29/24 Argelia Cheng NP Nurse Practitioner Family Medicine 11/10/23
--- OUTSIDE RECORDS SUMMARY | 2024-11-08 12:13 | XMS_ITS | Encounter Summary ---
Author Organization [facility] Address [address] [place] [address] Care Team Providers Care Medical Parasitologist Name Role Phone Argelia Chegn PETROLEUM TRANSPORT DRIVER Unavailable [phone] Trace Kelly MD Primary Care Provider [phone] Argelia Cheng PETROLEUM TRANSPORT DRIVER Unavailable [phone] Encounter Details Date Type Department Care Team (Late st Contact Info) Description 09/04/2024 Orders Only [facility] [address] [place] [id number] Adan Parmar MD [address] [place] [phone] (Work) Social History Tobacco Use [...] often do you attend chur ch or jehovah's witness services? 1 to 4 times per year [...] and heating? Not hard at all 06/08/2024 [facility] - Occupational Stress [...] any time in the past 12 m [facility], were you homeless or living [...] 11/13/2024 1:40 PM EDT Office Visit [facility] [address] [place] [address] Nolvia Jimenez NP [address] [place] [address] documented as of this encounter Procedures Procedure [...] on filedocumented in this encounter Care Teams Medical Parasitologist Relationship Specialty Start Date End Date Trace Kelly MD [address] [place] [address] PCP - General Family Medicine 01/17/24 Argelia Cheng NP PCP - Alexx FLOWER 03/29/24 Argelia Cheng NP Nurse Practitioner Family Medicine 11/10/23 documented as of this encounter
--- OUTSIDE RECORDS SUMMARY | 2024-11-08 12:13 | XMS_ITS | Encounter Summary ---
Author Organization [facility] [facility] Address [id number] [address] [place] [address] Care Team Providers Care Music Education Director Name Role Phone Milvia Gay APRN-MEDICAL SALES ASSOCIATE Primary Care Provider [phone] Encounter Details Date Type Department Care Team (Late st Contact Info) Description 10/25/2019 Telephone PROMEDIC PHYSICIAN FAMILY MEDICINE [address] [place] [address] Milvia Gay APRN-CNP [address], [address] [place] [address] Social History Tobacco Use Types Packs/Day Years [...] and Family Twice a week 01/14/2019 Attends Spiritism Services Never 01/14 Active Member of Clubs [...] Answer Date Recorded PHQ-2 Score 0 04/07/2018 [facility] [...] documented as of this encounter Care Teams Music Education Director Relationship Specialty Start Date End Date Milvia Gay APRN-MARISA [address] [place] [address] PCP - General Family Medicine 01/16/19 06/13/20 documented as of this encounter
--- OUTSIDE RECORDS SUMMARY | 2024-11-08 12:16 | XMS_ITS | CCD ---
Author Organization [facility] Care Team Providers Care Medical Assistant Dermatology Name Role Phone Jackelyn Diggs Unavailable JACKELYN DIGGS Attending Unavailable JACKELYN DIGGS Admitting Unavailable HOUSE, DR CASTILLO Primary Care [...] Care Unavailable SAMSA ., LUIS Attending Unavailable [place], DR TIMOTHY Chandler Consulting Unavailable HOUSE, DR CASTILLO Primary Care Unavailable SAMSA ., LUIS Admitting Unavailable SAMSA ., LUIS Consulting Unavailable HOUSE, DR CASTILLO Admitting Unavailable HOUSE, DR CASTILLO Primary Care Unavailable [place], DR CASTILLO Consulting Unavailable HOUSE, DR CASTILLO Attending Unavailable BAKHOUS, MARIOIZ Consulting Unavailable BAKDAVONS, JACKELYN Attending Unavailable BAKDAVONS, AZIZ Admitting Unavailable HOUSE, DR CASTILLO Primary Care Unavailable [facility], DR HUANG Consulting [facility] Attending Unavailable HOUSE, DR CASTILLO [facility] Admitting Unavailable SAMSA ., LUIS Consulting Unavailable SAMSA ., LUIS Attending Unavailable SAMSA ., LUIS Admitting Unavailable HOUSE, DR CASTILLO Primary Care Unavailable HOUSE, DR CASTILLO Consulting Unavailable SAMSA ., LUIS Consulting Unavailable MD Jackelyn Diggs Attending Provider [phone] MD Jackelyn Diggs Referring Provider KARO Cheng Primary Care Provid Ric COTE, Altamirano Unavailable Trace Kelly MD Primary Care Provider Skylar DRIVE IN TELLER, Shanda Unavailable Trace Kelly MD Primary Care Provider Skylar DRIVE IN TELLER, Shanda Unavailable Skylar [address]IVE IN TELLER, Shanda Unavailable Nolvia Jimenez Attending Provider [phone] SHANDA CHENG Attending Unavailabl e SKYLAR, SHANDA Attending Unavailabl e SKYLAR, SHANDA Attending Unavailabl e NOLVIA JIMENEZ Attending Unavailable NOLVIA JIMENEZ Attending Unavailable NOLVIA JIMENEZ Attending Unavailable GRISELDA HARVEY Referring Unavailable RHEA MANNING Attending Unavailable HORANI, KIRSTEN Admitting Unavailable HORANI, KIRSTEN Referring Unavailable HORANI, KIRSTEN Referring Unavailable HORANI, KIRSTEN Referring Unavailable XANDER SEQUEIRA Attending Unavailable XANDER SEQUEIRA Attending Unavailable [place]HAWY, JOSELUISAB Attending Unavailable EL[place]HAWY, EHAB Referring Unavailable [place]HAW[place], EHAB Attending Unavailable ZACK LUU Attending Unavailable HORANI, KIRSTEN Referring Unavailable EL[place]HAW[place], EHAB Admitting Unavailable ELTAHAWY, EHAB Attending Unavailable Ana COTE, Lisa Attending Provider Lisa Perez MD Other Provider Nolvia Jimenez Primary Care Provider Asakai, Imad Admitting Unavailable Ana Imad Attending Unavailable Nolvia Jimenez Primary Care Unavailable Nolvia Jimenez Admitting Unavailable Nolvia Jimenez Attending Unavailable Jackelyn Diggs Attending Unavailable Kristys Aziz Referring Unavailable Shanda Cheng Primary Care Unavailbrown velazco Bakdavons, Aziz Admitting Unavailable Allergies Allergy Classification Reported Allergen(s) Allergy Type Date of Onset Reaction(s) Facility (20 sources) clopidogrel; Translations: [CLOPIDOGREL] Drug Allergy 10-02-2 017 [facility] (8 sources) hydroCHLOROthiazide; Translations: [HYDROCHLOROTHIAZIDE] Drug Allergy rash [facility] (3 sources) Penicillin; Translations: [penicillin] Drug Allergy [facility] Repository (20 sources) Vancomycin; Translations: [VANCOMYCIN] Drug Allergy anaphylaxis [facility] (2 sources) Substance with sulfonamide structure and antibacterial mechanism of action (substance) Drug allergy Unknown [employer] Other (1 source) clopidogrel Drug Allergy [facility] Repository (1 source) hydroCHLOROthiazide Drug Allergy [facility] Repository (1 source) Vancomycin Drug Allergy [facility] Repository (20 sources) Penicillins; Translations: [PENICILLINS] Allergy to substance [facility] (7 sources) Sulfonamides (Antibiotic); Translations: [SULFA (SULFONAMIDE ANTIBIOTICS)] Allergy to substance Unknown Reaction [facility] (20 sources) hydroCHLOROthiazide Drug Allergy [facility] (20 sources) Sodium Chloride; Translations: [SODIUM CHLORIDE] Drug Allergy [facility] (20 sources) Sulfacetamide Drug Allergy [facility] (1 source) clopidogrel Drug Allergy [facility] Repository (1 source) hydroCHLOROthiazide Drug Allergy [facility] Repository (1 source) Vancomycin Drug Allergy [facility] Repository Medications Current Medications Medication Drug Class(es) Dates Sig (Normalized) Sig (Original) [id number] 200 actuat albuterol 0.09 mg/actuat metered dose inhaler (20 sources) beta2-Adrenergic Agonist Start: 11-16-2023 take 1 puff(s) by inhalation every four hours Albuterol Sulfate (Ventolin Hfa) 90 mcg/actuation HFA aerosol inhaler Active 2 PUFF INHALATION Every 4 hours November 16, 2023 12:00am Complies with 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 Start: 08-09-2023 End: 06-08-2024 albuterol (2.5 MG/3ML) [...] ML INHALATION Every 6 hours as needed for shortness of breath November 16, 2023 12:00am Complies with 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 ipratropium-albu terol (Duo-Neb) 0.5-2.5 mg/3 mL nebulizer solution Take 3 mL by nebulization every 6 (six) hours Active aspirin 81 mg delayed release oral tablet (20 sources) Platelet Aggregation Inhibitor, Nonsteroidal Anti-inflammatory Drug Start: 11-16-2023 take 1 tablet by mouth once daily Aspirin 81 mg tablet,delayed release (DR/EC) Active 81 MG PO Daily November 16, 2023 12:00am Complies with 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 atorvastatin 80 mg oral tablet (20 sources) HMG-CoA Reductase Inhibitor Start: 10-14-2023 End: 04-08-2025 take 1 tablet by mouth at bedtime atorvastatin (Lipitor) 80 MG tablet Indications: Other hyperlipidemia Take 1 tablet (80 mg) by mouth at bedtime 90 tablet 1 10/12/2024 01/10/2025 Active take 1 tablet by rebecca th every twenty-four hours Atorvastatin Calcium 80 MG 1 tablet Oral ly Once a day Active azithromycin 500 mg oral tablet (2 sources) Macrolide Antimicrobial Start: 09-05-2024 End: 06-11-2025 take 1 tablet by mouth once daily azithromycin (Zithromax) 500 MG tablet Take 500 mg by mouth Daily 09/05/2024 09/06/2024 Active cefpodoxime 200 mg oral tablet (2 [...] MCG PO Daily July 25, 2024 12:00am Complies with 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 Start: 01-18-2024 take 1 tablet by rebecca [...] by mouth every six hours as needed for muscle spasms Cyclobenzaprine 10 mg tablet Active 5 MG PO Every 6 hours as needed for muscle spasm July 25, 2024 12:00am Complies with 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 Start: 06-08-2024 End: 06-23-2024 take 0.5 tablet [...] Discontinued (Reorder) dapagliflozin 10 mg oral tablet (17 sources) Sodium-Glucose Cotransporter 2 Inhibitor Start: 07-03-2024 End: 10-31-2024 take 1 tablet by mouth once daily Dapagliflozin Propanediol (Farxiga) 10 mg tablet Active 10 MG PO Daily July 25, 2024 12:00am Complies with 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 2 ml dupilumab 150 mg/ml auto-injector (20 sources) Interleukin-4 Receptor alpha Antagonist Dupilumab (Dupixent) 300 MG/2ML solution auto-injector as directed Subcutaneous Active Dupilumab (3 sources) Start: 07-25-2024 Dupilumab (Dupixent Syringe) 100 mg/0.67 mL syringe Active 300 MG SUBCUT EVERY 2 WEEKS July 25, 2024 12:00am Complies with 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 Start: 07-25-2024 Dupilumab (Dup ixent Syringe) 100 mg/0.67 mL syringe Active 300 MG SUBCUT EVERY 2 WEEKS July 25, 2024 12:00am Ikmkyomnqyb-Gtoxdnonh-Epuwnj er (20 sources) Anticholinergic, Corticosteroid, beta2-Adrenergic Agonist Start: 10-18-2024 Edwzuxvkpcl-Tgxepcixf-Etospy er (Trelegy Ellipta) 100-62.5-25 mcg blister with device Active 1 INH INHALATION Daily October 18, 2024 12:00am Complies with 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 Start: 05-23-2024 take 1 puff(s) by in halation once daily Trelegy Ellipta 100-62.5-25 MCG/ACT aerosol powder Inhale 1 puff 1 (one) time each day at the same time 05/23/2024 Active furosemide 20 mg oral tablet (20 sources) Loop Diuretic Start: 02-08-2024 Furosemide 20 mg tablet Active 30 MG PO Every 48 hours February 08, 2024 2:49pm Complies with 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 Start: 02-08-2024 Furosemide 20 mg tablet Active [...] Active magnesium oxide 400 mg oral tablet (6 sources) Start: 11-16-2023 take 1 tablet by mouth twice daily Magnesium Oxide 400 mg (241.3 mg magnesium) tablet Active 400 MG PO Twice daily November 16, 2023 12:00am Complies with 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 take 1 tablet by rebecca th every [...] 07-25-2024 take 1 tablet by rebecca th twice daily Metoprolol Succinate 50 mg tablet extended release 24 hr Active 50 MG PO Twice daily July 25, 2024 12:00am Complies with 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 Start: 07-25-2024 take 1 tablet by rebecca [...] day Active nitroglycerin 0.4 mg sublingual tablet (15 sources) Nitrate Vasodilator Start: 09-05-2024 nitroglycerin (Nitrostat) 0.[address] 0.4 mg under the tongue every 5 (five) minutes if needed for chest pain 09/05/2024 Active olmesartan medoxomil 40 mg oral tablet (20 sources) Angiotensin 2 Receptor Shyam Start: 11-16-2023 take 1 tablet by mouth once daily Olmesartan 40 mg tablet Active 40 MG PO Daily November 16, 2023 12:00am Complies with 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 omeprazole 20 mg delayed release oral capsule (20 sources) Proton Pump Inhibitor Start: 11-16-2023 take 1 capsule by mouth once daily Omeprazole 20 mg capsule,delayed release(DR/EC) Active 20 MG PO Daily November 16, 2023 12:00am Complies with 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 take 1 tablet by mouth before me altime omeprazole OTC (PriLOSEC OTC) 20 MG EC tablet Take 20 mg by mouth in the morning. Take before meals. Do not crush, chew, or split.. Active take 1 capsule by mouth once ruslan ly Omeprazole 20 MG 1 capsule 30 minutes before morning meal Orally Once a day Active [employer] device (1 source) Start: 10-18-2024 Oxygen-Air Del francisco j [employer] device Active 0 .ROUTE October 18, 2024 12:00am As directed predniSONE 10 mg oral tablet (20 sources) Start: 06-07-2024 predniSONE (De ltasone) 10 MG tablet 06/07/2024 Active Start: 11-16-2023 End: 07-25-2024 take 1 tablet by mouth once Prednisone 5 mg tablet Dis continued 5 MG PO Once November 16, 2023 12:00am July 25, 2024 1:38pm spironolactone 25 mg oral tablet (10 sources) Aldosterone Antagonist take 1 tablet by mouth in the morning spironolactone (Aldactone) 25 MG tablet Take 25 mg by mouth in the morning. Active triamcinolone acetonide 5 mg/ml topical cream (1 source) Corticosteroid Start: End: triamcinolone (Kenalog) 0.5 % cream Indications: Bug bite, initial encounter Apply topically in the morning and in the evening and before bedtime. Do all this for 14 days. 60 g 10/18/2024 11/01/2024 Active Completed/Discontinued Medications Medication Drug Class(es) Dates Sig (Normalized) Sig (Original) 120 actuat budesonide 0.16 mg/actuat / formoterol fumarate 0.0048 mg/actuat / glycopyrrolate 0.009 mg/actuat metered dose inhaler (7 sources) Corticosteroid, beta2-Adrenergic Agonist End: 10-10-2024 Budeson-Glycopyrro l-Formoterol (Breztri Aerosphere) 160-9-4.8 MCG/ACT aerosol Inhale 160 mcg in the morning. 10/10/2024 Discontinued (Therapy completed) ferrous sulfate 325 mg oral tablet (5 [...] (Therapy completed) prasugrel 10 mg oral tablet (10 sources) P2Y12 Platelet Inhibitor Start: 11-16-2023 End: 02-08-2024 take 1 tablet by mouth once daily Prasugrel Hcl 10 mg tablet Discontinued 10 MG PO Daily November 16, 2023 12:00am February 08, 2024 2:49pm 12 hr ranolazine 500 mg extended release oral tablet (19 sources) Anti-anginal Start: 05-23-2024 End: 05-23-2025 take 1 tablet by mouth every twelve hours in the morning ranolazine (Ranexa) 500 MG 12 hr tablet Take 500 mg by mouth in the morning and 500 mg in the evening. 05/23/2024 10/10/2024 Discontinued (Therapy completed) Sod Picosulf-Mag Ox-Citric Ac (1 source) Start: 10-17-2024 End: 11-01-2024 take 1 dose by mouth once daily in the evening Sod Picosulf-Mag Ox-Citric Ac (Clenpiq) 10 mg-3.5 gram- 12 gram/175 mL solution Discontinued 175 ML PO Daily 350 0 October 17, 2024 12:00am November 01, 2024 10:47am take first dose at 3:00 p.m. the day before the colonoscopy, take the second dose at 9:00 p.m. the day before the colonoscopy Problems Active Problems Problem Classification Problem Date Documented Da te Episodic/Chronic Acute myocardial infarction (2 sources) Non-ST [...] Onset: 12-28-2016 Chronic Congestive heart failure; nonhypertensive (13 sources) Heart failure; Translations: [Heart failure, unspecified] Onset: 09-22-2024 10-10-2024 Chronic Coronary atherosclerosis and other heart disease (20 sources) Atherosclerotic heart disease of [place] coronary artery without angina pectoris; Translations: [Coronary arteriosclerosis] Onset: 12-28-2016 Chronic Deficiency and other anemia (5 sources) Anemia, unspecified; Translations: [Anemia, unspecified] Episodic Deficiency and other anemia (5 sources) Anemia; Translations: [Anemia, unspecified] 11-13-2023 Episodic Diabetes mellitus without complication (12 sources) Type 2 diabetes mellitus; Translations: [Type 2 diabetes mellitus without complications] Onset: 10-10-2024 10-10-2024 Chronic Diseases of white blood cells (20 sources) Leukocytosis; Translations: [Elevated white blood cell count, unspecified] Onset: 07-26-2024 07-26-2024 Chronic Disorders of lipid metabolism (20 sources) Hyperlipidemia; Translations: [Other hyperlipidemia] Onset: 10-27-2022 Resolved: 06-08-2024 04-12-2023 Chronic E Codes: Natural/environment (3 sources) Insect bite - wound; Translations: [Bitten or stung by nonvenomous insect and other nonvenomous arthropods, initial encounter] Onset: 10-18-2024 10-18-2024 Episodic Essential hypertension (20 sources) Essential hypertension; Translations: [Essential (primary) hypertension] Onset: 12-14-2016 Resolved: 06-08-2024 04-12-2023 Chronic Hypertension with complications and secondary hypertension (20 sources) Hypertensive renal disease; Translations: [Hypertensive chronic kidney disease with stage 1 through stage 4 chronic kidney disease, or unspecified chronic kidney disease] Onset: 01-08-2022 Chronic Nutritional deficiencies (11 sources) Vitamin D deficiency; Translations: [Vitamin D deficiency, unspecified] Chronic Other endocrine disorders (3 sources) Hyperparathyroidism; Translations: [Hyperparathyroidism, unspecified] 07-25-2024 Chronic Other endocrine disorders (2 sources) Hyperparathyroidism, unspecified; Translations: [Hyperparathyroidism, unspecified] 07-25-2024 Chronic Other gastrointestinal disorders (12 sources) Constipation; Translations: [Other constipation] Onset: 10-10-2024 10-10-2024 Episodic Other gastrointestinal disorders (5 sources) Stool DNA-based colorectal cancer screening positive; Translations: [Other fecal abnormalities] Onset: 10-11-2024 10-11-2024 Episodic Other lower respiratory disease (2 sources) Shortness [...] nutritional; endocrine; and metabolic disorders (20 sources) Body mass index 30+ - obesity; Translations: [Body mass index (BMI) 35.0-35.9, adult] Onset: 06-08-2024 06-08-2024 Chronic Other nutritional; endocrine; and metabolic disorders (5 sources) Hyperuricemia without signs of inflammatory arthritis and tophaceous disease; Translations: [Other abnormal blood chemistry] Episodic Other nutritional; endocrine; and metabolic disorders (5 sources) Hyperuricemia; Translations: [Hyperuricemia without signs of inflammatory arthritis and tophaceous disease] 11-13-2023 Episodic Pneumonia (except that caused by tuberculosis or sexually transmitted disease) (19 sources) Right lower zone pneumonia; Translations: [Pneumonia, unspecified organism] Onset: 09-03-2024 09-06-2024 Episodic Residual codes; unclassified (2 sources) Localized edema; Translations: [Localized edema] Onset: 09-22-2024 Episodic Respiratory failure; insufficiency; arrest (adult) (10 sources) Chronic respiratory failure; Translations: [Chronic respiratory failure, unspecified whether with hypoxia or hypercapnia] Onset: 10-10-2024 10-10-2024 Chronic Respiratory failure; insufficiency; arrest (adult) (17 sources) Acute respiratory failure; Translations: [Acute respiratory [...] Translations: [Chest pain, unspecified] Onset: 10-30-2022 Episodic Other screening for suspected conditions (not mental disorders or infectious disease) (20 sources) Elevated C-reactive protein; Translations: [Elevated C-reactive protein (CRP)] Onset: 07-26-2024 07-26-2024 Episodic Screening and history of mental health and substance abuse codes (20 sources) Personal history of nicotine dependence; Translations: [Ex-smoker] Onset: 01-22-2020 Episodic Spondylosis; intervertebral disc disorders; other back problems (20 sources) Low back pain; Translations: [Lower back pain] Onset: 12-28-2016 04-12-2023 Episodic Unclassified (1 source) Other ventricular tachycardia; Translations: [Other ventricular tachycardia] Onset: 08-01-2024 Results Test Name Value Interpretation Reference Range Facility [facility] 11-03-2024 [place] [address] Cardiac Rehab Report Signed Patient: CHIARA EDUARDO MR#: [id number] : 1955 Acct:[id number] Age/Sex: 69 / F ADM Date: 10/05/24 Loc: CR Attending Dr: Abby Azevedo M.D. Ordering Physician: Abby Azevedo M.D. Date of Service: 10/23/24 Procedure(s): ITP Accession Number(s): [id number] cc: [facility] Test Date: 2024-10-23 Pat Name: CHIARA EDUARDO Department: Room: - Gender: Female Consultant Nurse: : 1955 Requested By: ABBY AZEVEDO Order Number: [id number] Dane MD: HERIBERTO ESTEVEZ M.D. Interpretive Statements Patient may continue cardiac rehab as outlined in the treatment plan. Electronically Signed On 11-03-2024 10:21:15 EDT by HERIBERTO ESTEVEZ M.D. Dictated By: HERIBERTO ESTEVEZ Signed By: 11/03/24 1021 11/03/24 1021 DD/ 1451 TD/TT: Data Science And Iot Manager: [facility] Radiology, Radiologist, MD - 11/03/2024 [place] [address] Cardiac Rehab Report Signed Patient: CHIARA EDUARDO MR#: [id number] : 1955 Acct:[id number] Age/Sex: 69 / F ADM Date: 10/05/24 Loc: CR Attending Dr: Abby Azevedo M.D. Ordering Physician: Abby Azevedo M.D. Date of Service: 10/23/24 Procedure(s): ITP Accession Number(s): [id number] cc: [facility] Test Date: 2024-10-23 Pat Name: CHIARA EDUARDO Department: Room: - Gender: Female Consultant Nurse: : 1955 Requested By: ABBY AZEVEDO Order Number: [id number] Dane MD: HERIBERTO ESTEVEZ M.D. Interpretive Statements Patient may continue cardiac rehab as outlined in the treatment plan. Electronically Signed On 11-03-2024 10:21:15 EDT by HERIBERTO ESTEVEZ M.D. Dictated By: HERIBERTO ESTEVEZ Signed By: 11/03/24 1021 11/03/24 1021 DD/ 1451 TD/TT: Data Science And Iot Manager: [facility] ITPOrdered By: Radiologist R adiology on 11-03-2024 [facility] Work Phone: Adam 11-01-2024 L - -------- Specimen: [id number] Received: 11/01/24 Status: SUMI Lorenz Num: [id number] Spec Type: Surgical Subm Dr: Lisa Perez MD Tissues: A Colon Biopsy (CECAL POLYP) B Colon Biopsy (ASCENDING POLYP) C Colon Biopsy (SIGMOID POLYP) Procedures: CHILANGO/Gray German/Calderon L4/3 -------- Age/ Patient Sex Location Account Attending Physician -------- Chiara Eduardo 69/F [id number] Lisa Perez MD -------- SPEC NUM: [id number] RECD: 11/01/24 STATUS: SUMI LORENZ NUM: [id number] PIPE: 11/01/24 [facility] DR: Lisa Perez MD ENTERED: 11/01/[address] [facility] [address]: SPEC TYPE: Surgical DEPT: S ENTERED BY: [id number] RECV BY: [id number] ORDERED: HE/6, Gross/Micro L4/3 ORDERED: HE/6, Gross/Micro L4/3 Pathological Diagnosis A. Colon, cecal polyp (endoscopic polypectomy/biopsy): Fragments of tubular adenoma B. Colon, ascending polyp (endoscopic polypectomy/biopsy): Fragments of tubular adenoma C. Colon, sigmoid polyp (endoscopic polypectomy/biopsy): Tubular adenoma Clinical Information Positive Cologuard, constipation Gross Description Part A is received in formalin labeled with the patients name, date of , and cecal polyp are bazzi-viveros, focally erythematous, friable polypoid fragments, 1 x 0.8 x 0.3 cm in aggregate. The specimen is filtered and entirely submitted in a single cassette. (1, ns, [id number] A) JG Part B is received in formalin labeled with the patients name, date of , and ascending polyp are 2 bazzi-viveros, focally erythematous, friable polypoid fragments, 1.2 x 0.5 x 0.2 cm in aggregate. The specimen is filtered and entirely submitted in a single cassette. (1, ns, -------- Specimen: [id number] Received: 11/01/24 Status: SUMI Daviscecile Num: [id number] Spec Type: Surgical Subm Dr: Lisa Perez MD Tissues: A Colon Biopsy (CECAL POLYP) B Colon Biopsy (ASCENDING POLYP) C Colon Biopsy (SIGMOID POLYP) Procedures: HE/6, Gross/Micro L4/3 -------- Patient: Chiara Eduardo [id number] (Continued) -------- Specimen: [id number] Received: 11/01/24 (Continued) Gross Description (Continued) Signed (signature on file) Abram Martinez Jr., MD 11/02/24 1154 -------- Specimen: [id number] Received: 11/01/24 Status: SUMI Lorenz Num: [id number] Spec Type: Surgical Subm Dr: Lisa Perez MD Tissues: A Colon Biopsy (CECAL POLYP) B Colon Biopsy (ASCENDING POLYP) C Colon Biopsy (SIGMOID POLYP) Procedures: CHILANGO/Gray German/Calderon L4/3 -------- Patient: Chiara Eduardo [id number] (Continued) -------- Specimen: [id number] Received: 11/01/24 (Continued) Gross Description (Continued) B) Part C is received in formalin labeled with the patients name, date of , and sigmoid polyp are 2 bazzi-viveros, focally erythematous, friable polypoid fragments, 0.5 and 0.7 cm in greatest dimension with adherent vegetative material. The smaller polyp is inked blue, bisected, and entirely submitted in a single cassette with the larger polyp inked black and trisected. The vegetative material is retained. (1, ns, [id number] C) CPT Codes 23896 x 3 -------- -------- Specimen: [id number] Received: 11/01/24 Status: SUMI Lorenz Num: [id number] Spec Type: Surgical Subm Dr: Lisa Perez MD Tissues: A Colon Biopsy (CECAL POLYP) B Colon Biopsy (ASCENDING POLYP) C Colon Biopsy (SIGMOID POLYP) Procedures: HE/6, Gross/Micro L4/3 -------- Patient: Chiara Eduardo [id number] (Continued) -------- Signed (signature on file) Abram Martinez Jr., MD 11/02/24 1154 [facility] ITPon 10-23-2024 Radiology Study observation (narrative) [facility] 36on 10-11-[address] Azevedo regarding labs from yesterday: MD Milli Luevano MA Serum creatinine has increased from above 2 to 1.51. Please repeat a BMP in 2 weeks. Thank you. I spoke with patient earlier today and asked her to get BMP in 2 weeks. Order faxed earlier today. [facility] 36on 10-10-2024 36 Patient's PCP, Nolvia Jimenez, MAILROOM MESSENGER - called me regarding this patient. She saw her today in the office. Patient told Nolvia that she noticed increased SOB and LE edema when spironolactone was stopped last week. She did have repeat BMP tpday (scanned into chart). Nolvia did send her over just now to [facility] for CXR. Any recommendations? [facility] ALL BASIC METABOLIC PANELon 10-10-2024 Anion gap [Moles/Vol] 12.5 mmol/L [facility] Calcium [Mass/Vol] 8.9 mg/dL 8.5 - 10. 1 mg/dL [facility] Chloride [Moles/Vol] 100 mmol/L 98 - 10 7 mmol/L [facility] CO2 [Moles/Vol] 27.6 mmol/L 21.0 - 32.0 mmol/L [facility] Creatinine [Mass/Vol] 1.51 mg/dL High 0.55 - 1.02 mg/dL [facility] GFR/1.73 sq M.predicted CKD-EPI (S/P/Bld) [Vol rate/Area] 41 Low >=60 mL/min/1.73m 2 [facility] Glucose [Mass/Vol] 100 mg/dL 74 - 106 mg/dL [facility] Interpretation and review of laboratory results Abnormal [facility] Potassium [Moles/Vol] 5.1 mmol/L 3.5 - 5.1 mmol/L [facility] Sodium [Moles/Vol] 135 mmol/L Low 136 - 145 mmol/L [facility] EGFR-NON AF BELIZEAN 34 Low >=60 mL/min/1.73m 2 [facility] Urea nitrogen [Mass/Vol] 23 mg/dL High 7.0 - 18.0 mg/dL [facility] Urea nitrogen/Creatinine [Mass ratio] 15.2 mg/mg [facility]YNC [facility] XR ABDOMEN 1Von 10-10-2024 [place] [address] XRay Report Signed Patient: CHIARA EDUARDO MR#: [id number] : 1955 Acct:[id number] Age/Sex: 69 / F ADM Date: 10/10/24 Loc: RAD Attending Dr: Nolvia Jimenez NP Ordering Physician: Nolvia Jimenez NP Date of Service: 10/10/24 Procedure(s): XR abdomen 1V Accession Number(s): [id number] cc: Nolvia Jmienez NP [place] [id number] Patient Name: CHIARA EDUARDO MRN: [facility]:[id number] date: 1955 Sex: F Assigned Patient Location: [facility] Current Patient Location: [facility] Accession/Order Number: [id number] Exam Date: 10/10/2024 17:01 Report Date: 10/10/2024 [...] Garcia M.D. 10/10/2024 5:03 PM Dictation Location: [place] [address] Electronically authenticated by: [id number] Y Date: 10/10/2024 17:03 Dictated By: Tahir Garcia M.D. Signed By: 10/10/241704 DD/ 02 TD/TT: Data Science And Iot Manager: [facility] Radiology, Radiologist, - 10/10/2024 [place] [address] XRay Report Signed Patient: CHIARA EDUARDO MR#: [id number] : 1955 Acct:[id number] Age/Sex: 69 / F ADM Date: 10/10/24 Loc: RAD Attending Dr: Nolvia Jimenez NP Ordering Physician: Nolvia Jimenez NP Date of Service: 10/10/24 Procedure(s): XR abdomen 1V Accession Number(s): [id number] cc: Nolvia Jimenez NP The [address] [address] Patient Name: CHIARA EDUARDO MRN: [facility]:[id number] date: 1955 Sex: F Assigned Patient Location: [facility] Current Patient Location: [facility] Accession/Order Number: [id number] Exam Date: 10/10/2024 17:01 Report Date: 10/10/2024 [...] Garcia M.D. 10/10/2024 5:03 PM Dictation Location: [place] [address] Electronically authenticated by: [id number] Y Date: 10/10/2024 17:03 Dictated By: Tahir Garcia M.D. Signed By: 10/10/241704 DD/ 02 TD/TT: Data Science And Iot Manager: [facility] Radiology Study observation (narrative) [facility] XR ABDOMEN 1VOrdered By: Rubio iologist Radiology on 10-10-2024 [facility] Work Phone: XR CHEST 2Von 10-10-2024 [place] [address] XRay Report Signed Patient: CHIARA EDUARDO MR#: [id number] : 1955 Acct:[id number] Age/Sex: 69 / F ADM Date: 10/10/24 Loc: RUBIO Attending Dr: Nolvia Jimenez NP Ordering Physician: Nolvia Jimenez NP Date of Service: 10/10/24 Procedure(s): XR chest 2V Accession Number(s): [id number] cc: Nolvia Jimenez NP [address] [address] Patient Name: CHIARA EDUARDO MRN: [facility]:[id number] date: 1955 Sex: F Assigned Patient Location: RAD Current Patient Location: [facility] Accession/Order Number: [id number] Exam Date: 10/10/2024 17:03 Report Date: 10/10/2024 [...] Garcia M.D. 10/10/2024 5:04 PM Dictation Location: [place] [address] Electronically authenticated by: [id number] Y Date: 10/10/2024 17:04 Dictated By: Tahir Garcia M.D. Signed By: 10/10/241705 DD/ 03 TD/TT: Data Science And Iot Manager: [facility] Radiology, Radiologist, MD - 10/10/2024 The [place] [id number] XRay Report Signed Patient: CHIARA EDUARDO MR#: [id number] : 1955 Acct:[id number] Age/Sex: 69 / F ADM Date: 10/10/24 Loc: RAD Attending Dr: Nolvia Jimenez NP Ordering Physician: Nolvia Jimenez NP Date of Service: 10/10/24 Procedure(s): XR chest 2V Accession Number(s): [id number] cc: Nolvia Jimenez NP [address] [address] Patient Name: CHIARA EDUARDO MRN: [id number] date: 1955 Sex: F Assigned Patient Location: [facility] Current Patient Location: [facility] Accession/Order Number: [id number] Exam Date: 10/10/2024 17:03 Report Date: 10/10/2024 [...] Garcia M.D. 10/10/2024 5:04 PM Dictation Location: [place] [address] Electronically authenticated by: [id number] Y Date: 10/10/2024 17:04 Dictated By: Tahir Garcia M.D. Signed By: 10/10/241705 DD/ 03 TD/TT: Data Science And Iot Manager: [facility] Radiology Study observation (narrative) [facility] XR CHEST 2VOrdered By: [facility] Rad[facility] on 10-10-2024 [facility] Work Phone: ITPon 10-04-2024 [place] [address] Cardiac Rehab Report Signed Patient: CHIARA EDUARDO MR#: [id number] : 1955 Acct:[id number] Age/Sex: 69 / F ADM Date: 10/03/24 Loc: CR Attending Dr: Abby Azevedo M.D. Ordering Physician: Luis Coughlin D.O. Date of Service: 10/02/24 Procedure(s): [facility] Accession Number(s): [id number] cc: [facility] Test Date: 2024-10-02 Pat Name: CHIARA EDUARDO Department: Room: - Gender: Female Consultant Nurse: : 1955 Requested By: Luis Coughlin Order Number: [id number] Dane MD: Luis Coughlin Interpretive Statements Okay to proceed with outlined treatment plan. Electronically Signed On 10-04-2024 10:08:06 EDT by Luis Coughlin Dictated By: Luis Coughlin D.O. Signed By: 10/04/24 1008 10/04/24 1008 DD/ 1145 TD/TT: Data Science And Iot Manager: [facility] Radiology, Radiologist, - 10/04/2024 [place] [address] Cardiac Rehab Report Signed Patient: CHIARA EDUARDO MR#: [id number] : 1955 Acct:[id number] Age/Sex: 69 / F ADM Date: 10/03/24 Loc: CR Attending Dr: Abby Azevedo M.D. Ordering Physician: Luis Coughlin D.O. Date of Service: 10/02/24 Procedure(s): ITP Accession Number(s): [id number] cc: [facility] Test Date: 2024-10-02 Pat Name: CHIARA EDUARDO Department: Room: - Gender: Female Consultant Nurse: : 1955 Requested By: Luis Coughlin Order Number: [id number] Dane MD: Luis Coughlin Interpretive Statements Okay to proceed with outlined treatment plan. Electronically Signed On 10-04-2024 10:08:06 EDT by Luis Coughlin Dictated By: Luis Coughlin D.O. Signed By: 10/04/24 1008 10/04/24 100 DD/ 1145 TD/TT: Data Science And Iot Manager: [place] [address] Cardiac Rehab Report Signed Patient: CHIARA EDUARDO MR#: [id number] : 1955 Acct:[id number] Age/Sex: 69 / F ADM Date: 10/03/24 Loc: CR Attending Dr: Abby Azevedo M.D. Ordering Physician: Luis Coughlin D.O. Date of Service: 10/03/24 Procedure(s): ITP Accession Number(s): [id number] cc: [facility] Test Date: 2024-10-03 Pat Name: CHIARA EDUARDO Department: Room: - Gender: Female Consultant Nurse: : 1955 Requested By: Luis Coughlin Order Number: [id number] Dane MD: Luis Coughlin Interpretive Statements Okay to proceed with outlined treatment plan. Electronically Signed On 10-04-2024 10:08:18 EDT by Luis Coughlin Dictated By: Luis Coughlin D.O. Signed By: 10/04/24 1008 10/04/24 1008 DD/ 1245 TD/TT: Data Science And Iot Manager: [facility] Radiology, Radiologist, MD - 10/04/2024 [place] [address] Cardiac Rehab Report Signed Patient: CHIARA EDUARDO MR#: [id number] : 1955 Acct:[id number] Age/Sex: 69 / F ADM Date: 10/03/24 Loc: CR Attending Dr: Abby Azevedo M.D. Ordering Physician: Luis Coughlin D.O. Date of Service: 10/03/24 Procedure(s): ITP Accession Number(s): [id number] cc: [facility] Test Date: 2024-10-03 Pat Name: CHIARA EDUARDO Department: Room: - Gender: Female Consultant Nurse: : 1955 Requested By: Luis Coughlin Order Number: [id number] Dane MD: Luis Coughlin Interpretive Statements Okay to proceed with outlined treatment plan. Electronically Signed On 10-04-2024 10:08:18 EDT by Luis Coughlin Dictated By: Luis Coughlin D.O. Signed By: 10/04/24 1008 10/04/24 1008 DD/ 1245 TD/TT: Data Science And Iot Manager: [facility] No Panel InformationOrdered By: Radiologist Radiology on 10-04-2024 [facility] Work Phone: 36on 10-03-2024 36 Spoke with patient and made her aware to stop spironolactone per Dr. Azevedo. She verbalized understanding and will do so. She will have repeat BMP on Wednesday, 10/09. Order faxed to [facility]. [facility] 36 Regarding lab result s from [...] her to stop both that and Farxiga? [facility] ALL BASIC METABOLIC PANELon 10-03-2024 Anion gap [Moles/Vol] 11.8 mmol/L NO [facility] Calcium [Mass/Vol] 9.1 mg/dL 8.5 - 10. 1 mg/dL [facility] Chloride [Moles/Vol] 96 mmol/L Low 98 - 10 7 mmol/L [facility] CO2 [Moles/Vol] 29.1 mmol/L 21.0 - 32.0 mmol/L [facility] Creatinine [Mass/Vol] 2.01 mg/dL High 0.55 - 1.02 mg/dL [facility] GFR/1.73 sq M.predicted CKD-EPI (S/P/Bld) [Vol rate/Area] 30 Low >=60 mL/min/1.73m 2 [facility] Glucose [Mass/Vol] 115 mg/dL High 74 - 106 mg/dL [facility] Interpretation and review of laboratory results Abnormal [facility] Potassium [Moles/Vol] 4.9 mmol/L 3.5 - 5.1 mmol/L [facility] Sodium [Moles/Vol] 132 mmol/L Low 136 - 145 mmol/L [facility] TBH EGFR-NON AF [place] 24 Low >=60 mL/min/1.73m 2 [facility] Urea nitrogen [Mass/Vol] 31 mg/dL High 7.0 - 18.0 mg/dL [facility] Urea nitrogen/Creatinine [Mass ratio] 15.4 mg/mg [facility] ITPon 10-03-2024 Radiology Study observation (narrative) [facility] Telephoneon 10-03-2024 Telephone [phone] Emily Eduardomatthew Dasilva 1955 F [facility] Provider Department [place] 10/03/2024 MILLI SMITH [facility] Family History Problem Relation Age of Onset Stroke Mother Kidney disease Father Coronary artery disease Paternal Grandfather Family Status - Relation Status Age at Mother Father Paternal Grandfather [facility] ITPon 10-02-2024 Radiology Study observation (narrative) [facility] Follow-Upon 09-22-2024 Follow-Up [id number] Chiara Eduardo 1955 F Date Provider Department Center 09/22/2024 ZACK GREENE JUSTIN [facility] Family History Problem Relation Age of Onset Stroke Mother Kidney disease Father Coronary artery disease Paternal Grandfather Family Status - Relation Status Age at Mother Father Paternal Grandfather Level of Service:24939 MD OFFICE/OUTPATIENT ESTABLISHED MOD MDM 30 MIN Normal [facility] 30on 09-05-2024 30 The patient is Moderately [...] Adequate for Discharge Normal [facility] 30 Electrical Construction Project Manager went bedside and talked with patient about home oxygen. Electrical Construction Project Manager asked if patient has any preference of home oxygen company. Patient stated she does not, and is agreeable to be set up with [employer]. Electrical Construction Project Manager called and talked with with Keny from [employer], Keny Confirmed they service patients area, and take patients insurance. Keny told appeals writer to fax over Clinicals and provide patient a portable tank. -- Clinicals gathered and faxed over at 11:25 am -- Electrical Construction Project Manager received confirmation fax. Electrical Construction Project Manager called [employer] office and talked with Brock. Electrical Construction Project Manager inform Brock that clinicals were faxed over and confirmation fax was received. Brock stated patient is not in their system yet but will keep a look of for it and will call patient back as soon as patient gets put into their system. Electrical Construction Project Manager provided call back number. Electrical Construction Project Manager called and talked to Nicole from [employer], She confirmed that they have everything they need and that appeals writer can give patient a portable oxygen tank to go home with, and for appeals writer to instruction patient to call them when she leaves the hospital. Electrical Construction Project Manager went bedside and provided portable oxygen tank to patient, Electrical Construction Project Manager educated patient on portable oxygen tank and on the need to call [employer] as soon as she leave the hospital. Patient stated she understands and had no other questions at this time. ------ Electrical Construction Project Manager received call from [employer] asking for discharge summery to be faxed over as well. Electrical Construction Project Manager faxed over discharge summery. Electrical Construction Project Manager received confirmation fax. Electrical Construction Project Manager called Jaqueline from [employer] to confirm they got discharge summery. Electrical Construction Project Manager was told that it hasn't arrived in there system yet but it can take some time. Electrical Construction Project Manager informed Jaqueline that patient has discharged and that patient will need equipment delivered today. Jaqueline stated they will still be able to deliver oxygen equipment today, they just need the Discharge as well. Electrical Construction Project Manager provided writers call back number to Jaqueline, if they need anything else. Electrical Construction Project Manager called and talked with Brock at [employer] who confirmed they got the discharge summery and everything is set to go for patient to get her home oxygen equipment tonight. Normal [facility] BASIC METABOLIC PANELon 08-27 0-2024 Anion gap [Moles/Vol] 9 mmol/L Normal 7-20 [facility] Comment on above: Performed By: #### L [id number] #### [facility] ([facility]) [address] [place] [address] Calcium [Mass/Vol] 8.1 mg/dL Low 8.6-10.3 [facility] Comment on above: Performed By: #### L [id number] #### [facility] ([facility]) [address] [place] [address] Chloride [Moles/Vol] 105 mmol/L Normal 98-107 [facility] Comment on above: Performed By: #### L [id number] #### [facility] ([facility]) [address] [place] [address] CO2 [Moles/Vol] 24 mmol/L Normal 21-31 [facility] Comment on above: Performed By: #### L [id number] #### [facility] ([facility]) [address] [place] [address] Creatinine [Mass/Vol] 1.24 mg/dL High 0.60-1.20 [facility] Comment on above: Performed By: #### L [id number] #### [facility] ([facility]) [address] [place] [address] GLOMERULAR FILTRATION RATE ML/MIN/1.73 SQ M.PREDICTED 46.5 mL/min/1.73m*2 Low >60.0 [facility] Comment on above: Result Comment: [...] individuals. Performed By: #### L [id number] #### [facility] ([facility]) [address] [place] [address] Glucose [Mass/Vol] 92 mg/dL Normal 70-100 [facility] Comment on above: Performed By: #### L [id number] #### [facility] ([facility]) [address] [place] [address] Potassium [Moles/Vol] 4.2 mmol/L Normal 3.5-5.1 [facility] Comment on above: Performed By: #### L [id number] #### [facility] ([facility]) [address] [place] [address] Sodium [Moles/Vol] 134 mmol/L Low 136-145 [facility] Comment on above: Performed By: #### L [id number] #### [facility] ([facility]) [address] [place] [address] Urea nitrogen [Mass/Vol] 26 mg/dL High 7-25 [facility] Comment on above: Performed By: #### L [id number] #### [facility] ([facility]) [address] [place] [address] UREA NITROGEN/CREATININE (MASS RATIO) IN SER/PLAS 21.0 Normal [facility] Comment on above: Performed By: #### L [id number] #### [facility] ([facility]) [address] [place] [address] CBCon 09-05-2024 Erythrocyte distribution width (RBC) [Ratio] 14.0 % Normal 11.5-15.0 [facility] Comment on above: Performed By: #### L [id number] #### [facility] ([facility]) [address] [place] [address] ERYTHROCYTE MEAN CORPUSCULAR HEMOGLOBIN CONCENTRATION (G/DL) BY AUTOMATED 32.0 g/dL Normal 32.0-35.0 [facility] Comment on above: Performed By: #### L [id number] #### [facility] ([facility]) [address] [place] [address] Hematocrit (Bld) [Volume fraction] 31.9 % Low 36.0-45.0 [facility] Comment on above: Performed By: #### L [id number] #### [facility] ([facility]) [address] [place] [address] Hemoglobin (Bld) [Mass/Vol] 10.2 g/dL Low 12.0-15.0 [facility] Comment on above: Performed By: #### L [id number] #### [facility] ([facility]) [address] [place] [address] MCH (RBC) [Entitic mass] 30.8 pg Normal 27.0-33.0 [facility] Comment on above: Performed By: #### L [id number] #### [facility] ([facility]) [address] [place] [address] MCV (RBC) [Entitic vol] 96.4 fL Normal 82.0-98.0 [facility] Comment on above: Performed By: #### L [id number] #### [facility] ([facility]) [address] [place] [address] PLATELETS (10*3/UL) IN BLOOD AUTOMATED COUNT 247 10*3/uL Normal 150-400 [facility] Comment on above: Performed By: #### L [id number] #### [facility] ([facility]) [address] [place] [address] RBC (Bld) [#/Vol] 3.31 10*6/uL Low 3.80-5.00 [facility] Comment on above: Performed By: #### L [id number] #### [facility] ([facility]) [address] [facility] [place] [address] WBC (Bld) [#/Vol] 17.69 10*3/uL High 4.00-10.60 [facility] Comment on above: Performed By: #### L [id number] #### [facility] ([facility]) [address] [place] [address] NURSNOTEon 09-05-2024 NURSNOTE The findings from this [...] heparin infusion, or per protocol. Result Comment: [place] roxaban and Apixaban will interfere with the anti Xa assay used to monitor UFH and LMWH. Performed By: #### L [id number] #### [facility] ([facility]) [address] [place] [address] HEPARIN UNFRACTIONATED (U/ML) IN PPP BY CHROMOGENIC METHOD 0.61 IU/mL Normal 0.3-0.7 [facility] Comment on above: Order Comment: Check anti-Xa level every 6 hours while on heparin infusion, or per protocol. Result Comment: [place] roxaban and Apixaban will interfere with the anti Xa assay used to monitor UFH and LMWH. Performed By: #### L [id number] #### [facility] ([facility]) [address] [place] [address] HEPARIN UNFRACTIONATED (U/ML) IN PPP BY CHROMOGENIC METHOD >1.00 Critically high 0.3-0.7 [facility] Comment on above: Order Comment: Check anti-Xa level every 6 hours while on heparin infusion, or per protocol. Result Comment: [place] roxaban and Apixaban will interfere with the anti Xa assay used to monitor UFH and LMWH. Performed By: #### L [id number] #### [facility] ([facility]) [address] [place] [address] ARTERIAL BLOOD GAS WITH IONI ZED CALCIUMon 09-04-2024 Base excess Calc (Bld) [Moles/Vol] -1.8000 mmol/L Normal -2.0-3.0 [facility] Comment on above: Performed By: #### L [id number] ####[facility] [id number] [place] [address] [place] CALCIUM IONIZED (MMOL/L) IN BLOOD 1.20 mmol/L Normal 1.15-1.33 [facility] Comment on above: Performed By: #### L [id number] ####[facility] [id number] [place] [address] [facility] CO2 (Bld) [Partial pressure] 42 mm[Hg] Normal 35-48 [facility] Comment on above: Performed By: #### L [id number] ####[facility] [id number] [place] [address] [facility] FIO2 40 % Normal [facility] Comment on above: Performed By: #### L [id number] ####[facility] [id number] [place] [address] [facility] HCO3 (Bld) [Moles/Vol] 23.7 mmol/L Normal 21.0-28.0 [facility] Comment on above: Performed By: #### L [id number] ####[facility] [id number] [place] [address] [facility] Oxygen (Bld) [Partial pressure] 92 mm[Hg] Normal 83-100 [facility] Comment on above: Performed By: #### L [id number] ####[facility] [id number] [place] [address] [facility] OXYGEN SATURATION (%) IN ARTERIAL BLOOD 97.9 % Normal 94.0-98.0 [facility] Comment on above: Performed By: #### L [id number] ####[facility] [id number] [place] [address] [facility] pH (Bld) 7.36 [pH] Normal 7.35-7.45 [facility] Comment on above: Performed By: #### L [id number] ####[facility] [id number] [place] [address] [facility] SOURCE OF OXYGEN High flow nasal cannula Normal [facility] Comment on above: Performed By: #### L [id number] ####[facility] [id number] [place] [address] [facility] BASIC METABOLIC PANELon 06-0 Anion gap [Moles/Vol] 10 mmol/L Normal 7-20 [facility] Comment on above: Performed By: #### L [id number] ####[facility] ([facility])[address] [place] [address] Calcium [Mass/Vol] 7.7 mg/dL Low 8.6-10.3 [facility] Comment on above: Performed By: #### L [id number] ####[facility] ([facility])[address] [place] [address] Chloride [Moles/Vol] 105 mmol/L Normal 98-107 [facility] Comment on above: Performed By: #### L AB15 ####[facility] ([facility])[address] [place] [address] CO2 [Moles/Vol] 23 mmol/L Normal 21-31 [facility] Comment on above: Performed By: #### L [id number] ####[facility] ([facility] [place] [address] Creatinine [Mass/Vol] 1.21 mg/dL High 0.60-1.20 [facility] Comment on above: Performed By: #### L AB15 ####[facility] ([facility])[address] [place] [address] GLOMERULAR FILTRATION RATE ML/MIN/1.73 SQ M.PREDICTED 47.9 mL/min/1.73m*2 Low >60.0 [facility] Comment on above: Result Comment: [...] of individuals. Performed By: #### L AB15 ####[facility] ([facility])[address] [place] [address] Glucose [Mass/Vol] 113 mg/dL High 70-100 [facility] Comment on above: Performed By: #### L [id number] ####[facility] ([facility])[address] [place] [address] Potassium [Moles/Vol] 4.5 mmol/L Normal 3.5-5.1 [facility] Comment on above: Performed By: #### L AB15 ####[facility] ([facility])[address] [place] [address] Sodium [Moles/Vol] 133 mmol/L Low 136-145 [facility] Comment on above: Performed By: #### L AB15 ####[facility] ([facility])[address] [place] [address] Urea nitrogen [Mass/Vol] 24 mg/dL Normal 7-25 [facility] Comment on above: Performed By: #### L AB15 ####[facility] ([facility])[address] [place] [address] UREA NITROGEN/CREATININE (MASS RATIO) IN SER/PLAS 19.8 Normal [facility] Comment on above: Performed By: #### L [id number] ####[facility] ([facility])[address] [place] [address] BLOOD CULTUREon 09-04-2024 Bacteria identified Cx Nom (Bld) No growth at 5 days Normal [facility] Comment on above: Order Comment: From a different site than #1. Performed By: #### L [id number] ####[facility] ([facility])[address] [place] [address] Bacteria identified Cx Nom (Bld) No growth at 5 days Normal [facility] Comment on above: Performed By: #### L [id number] ####[facility] ([facility])[address] [place] [address] CBCon 09-04-2024 Erythrocyte distribution width (RBC) [Ratio] 14.0 % Normal 11.5-15.0 [facility] Comment on above: Performed By: #### L [id number] ####[facility] ([facility])[address] [place] [id number] ERYTHROCYTE MEAN CORPUSCULAR HEMOGLOBIN CONCENTRATION (G/DL) BY AUTOMATED 32.5 g/dL Normal 32.0-35.0 [facility] Comment on above: Performed By: #### L [id number] ####[facility] (BEAKER)[address] [address] Hematocrit (Bld) [Volume fraction] 32.0 % Low 36.0-45.0 [facility] Comment on above: Performed By: #### L [id number] ####[facility] (BEAKER)[address] [address] Hemoglobin (Bld) [Mass/Vol] 10.4 g/dL Low 12.0-15.0 [facility] Comment on above: Performed By: #### L [id number] ####[facility] (BEAKER)[address] [place], [place] [address] MCH (RBC) [Entitic mass] 31.4 pg Normal 27.0-33.0 [facility] Comment on above: Performed By: #### L [id number] ####[facility] (BEAKER)[address] [place], [place] [address] MCV (RBC) [Entitic vol] 96.7 fL Normal 82.0-98.0 [facility] Comment on above: Performed By: #### L [id number] ####[facility] (BEAKER)[address] [place] [address] PLATELETS (10*3/UL) IN BLOOD AUTOMATED COUNT 227 10*3/uL Normal 150-400 [facility] Comment on above: Performed By: #### L [id number] ####[facility] (BEAKER)[address] [address] RBC (Bld) [#/Vol] 3.31 10*6/uL Low 3.80-5.00 [facility] Comment on above: Performed By: #### L [id number] ####[facility] [place] [address] WBC (Bld) [#/Vol] 19.91 10*3/uL High 4.00-10.60 [facility] Comment on above: Performed By: #### L [id number] ####[facility] (FAZAL)[address] [address] CONSULTon 09-04-2024 CONSULT - Attestation signed by [...] We suspect this is a type 2 NE and, if she remains clinically stable, recommend no further cardiac evaluation at this time. We do recommend you continue aspirin, isosorbide, toprol XL, atorvastatin and other cardiac medications. Cardiology Consult Note Reason for Consult: NSTEMI HPI: Chiara Eduardo is a 69 y.o. female with a history of coronary artery disease, prior stent placement, COPD, History of acute inferior wall NE, HT, HLP, CKD, obesity presented with shortness of breath Cardiology consulted for elevated troponin and SOB Patient presented with worsening shortness of breath. She presented to [place], found to have right lower lobe pneumonia, with increasing troponin to 78.9, lactic of 3.2, patient was started on heparin drip, antibiotics, and was sent to [facility] for further workup. Cardiac history:history of coronary [...] kidney disease, COPD (chronic obstructive pulmonary disease) ([facility]), Coronary artery disease, Coronary artery disease involving [place] coronary artery of [place] heart without angina pectoris (12/28/2016), Essential hypertension [...] Daily atorvastatin (LIPITOR) 80 mg, oral, Daily djfsslcmzd-vxdddufg-q ormoterol (Breztri Aerosphere) 160-9-4.8 mcg/actuation HFA aerosol [...] Admission Medication Si (more content not included)... Normal [facility] HIGH SENSITIVITY CRPon 09-04 CRP, HIGH SENSITIVITY >300.0 High <=3.0 [facility] Comment on above: Result Comment: INTE [...] 3.0 mg/L ... high risk Performed By: [facility] [address] [place] [address] Senior Statistician: Amol Tran MD, PhD CLIA Number: [id number] Performed By: #### L [id number] ####[facility] ([facility] [place] [address] HIGH SENSITIVITY TROPONIN Io n 09-04-2024 HS TROPONIN I (NG/L) 1053 ng/L Critically high <15 [facility] Comment on above: Performed By: #### L [id number] ####[facility] ([facility])[address] [place] [address] LEGIONELLA ANTIGEN, URINEon 09-04-2024 LEGIONELLA AG, UR Negative Normal NEG [facility] Comment on above: Result Comment: L. p neumophila serogroup 1 antigen not detected. A negative result does not exclude infection with Leginella pnemophila serogroup 1 nor does it rule out other microbial-caused respiratory infections of disease caused by other serogroups of Legionella pneumophila. Test Performed by [facility] [id number] [place] [address] - Released 09/04/2024 20:22 Performed By: #### L [id number] ####[facility] [address] [place] [address] MAGNESIUMon 09-04-2024 Magnesium [Mass/Vol] 1.8 mg/dL Low 1.9-2.7 [facility] Comment on above: Performed By: #### L [id number] #### [facility] ([facility]) [address] [place] [address] MYCOPLASMA PNEUMONIAE PCRon 09-04-2024 MYCOPLASMA PNEUMONIAE PCR [...] developed and its performance characteristics determined by [facility]. It has not been cleared or approved by the [place] Food and Drug Administration. This test was performed in a CLIA certified laboratory and is intended for clinical purposes. Performed By: [facility] [address] [place] [address] Senior Statistician: Amol Tran MD, PhD CLIA Number: [id number] Performed By: #### L [id number] ####[facility] ([facility] [place] [address] MYCOPLASMA PNEUMONIAE SOURCE Not Provided Normal [facility] Comment on above: Result Comment: Spec imen source was not provided. Please refer to the [facility] Test Directory for validated specimen source information: [email or web address]. Interpret results with caution. Performed By: #### L [id number] ####[facility] ([facility])[address] [place] [address] SEDIMENTATION RATEon 025 SEDIMENTATION RATE, ERYTHROCYTE 21 mm/hr Normal <30 [facility] Comment on above: Performed By: #### L [id number] #### [facility] (BEAKER) [address] [place] [address] 30on 09-03-2024 30 Problem: Pain - Adul [...] and behaviors that affect risk of falls [place] fall precautions as indicated by assessment Educate [...] heparin. Performed By: #### L [id number] #### [facility] ([facility]) [address] [place] [address] B-TYPE NATRIURETIC PEPTIDEon 09-03-2024 Natriuretic peptide B (Bld) [Mass/Vol] 708 pg/mL High 0-100 [facility] Comment on above: Performed By: #### L [id number] ####[facility] ([facility])[address] [place] [address] CBC WITH AUTO DIFFERENTIALon 09-03-2024 Basophils (Bld) [#/Vol] 0.03 10*3/uL Normal 0.00-0.20 [facility] Comment on above: Performed By: #### L [id number] ####[facility] ([facility])[address] [place] [address] Basophils/100 WBC (Bld) 0.2 % Normal 0.0-1.0 [facility] Comment on above: Performed By: #### L [id number] ####[facility] ([facility])[address] [place] [address] Eosinophils (Bld) [#/Vol] 0.24 10*3/uL Normal 0.00-0.50 [facility] Comment on above: Performed By: #### L [id number] ####[facility] ([facility])[address] [place] [address] Eosinophils/100 WBC (Bld) 1.2 % Normal 0.0-6.0 [facility] Comment on above: Performed By: #### L [id number] ####[facility] ([facility])[address] [place] [address] Erythrocyte distribution width (RBC) [Ratio] 13.8 % Normal 11.5-15.0 [facility] Comment on above: Performed By: #### L [id number] ####[facility] ([facility])[address] [place] [address] ERYTHROCYTE MEAN CORPUSCULAR HEMOGLOBIN CONCENTRATION (G/DL) BY AUTOMATED 32.1 g/dL Normal 32.0-35.0 [facility] Comment on above: Performed By: #### L [id number] ####[facility] (BEAKER)[address] [place] [address] Hematocrit (Bld) [Volume fraction] 38.3 % Normal 36.0-45.0 [facility] Comment on above: Performed By: #### L [id number] ####[facility] ([facility] [place] [address] Hemoglobin (Bld) [Mass/Vol] 12.3 g/dL Normal 12.0-15.0 [facility] Comment on above: Performed By: #### L [id number] ####[facility] ([facility])[address] [place] [address] Immature granulocytes (Bld) [#/Vol] 0.10 10*3/uL Normal 0.00-0.20 [facility] Comment on above: Performed By: #### L [id number] ####[facility] ([facility])[address] [place] [address] Immature granulocytes/100 WBC (Bld) 0.5 % Normal 0.0-1.0 [facility] Comment on above: Performed By: #### L [id number] ####[facility] (BEAKER)[address] [place] [address] Lymphocytes (Bld) [#/Vol] 0.28 10*3/uL Low 1.20-4.00 [facility] Comment on above: Performed By: #### L [id number] ####[facility] (BEAKER)[address] [place] [address] Lymphocytes/100 WBC (Bld) 1.4 % Low 20.0-45.0 [facility] Comment on above: Performed By: #### L [id number] ####[facility] (BEAKER)[address] [place] [address] MCH (RBC) [Entitic mass] 31.1 pg Normal 27.0-33.0 [facility] Comment on above: Performed By: #### L [id number] ####[facility] (BEAKER)[address] [place] [address] MCV (RBC) [Entitic vol] 97.0 fL Normal 82.0-98.0 [facility] Comment on above: Performed By: #### L [id number] ####[facility] (BEAKER)[address] [place] [address] Monocytes (Bld) [#/Vol] 0.67 10*3/uL Normal 0.10-1.00 [facility] Comment on above: Performed By: #### L [id number] ####[facility] (BEAKER)[address] [place] [address] Monocytes/100 WBC (Bld) 3.4 % Low 5.0-12.0 [facility] Comment on above: Performed By: #### L [id number] ####[facility] (BEAKER)[address] [place] [address] Neutrophils (Bld) [#/Vol] 18.60 10*3/uL High 1.60-7.60 [facility] Comment on above: Performed By: #### L [id number] ####[facility] (BEAKER)[address] [place] [address] Neutrophils/100 WBC (Bld) 93.3 % High 40.0-72.0 [facility] Comment on above: Performed By: #### L [id number] ####[facility] (BEAKER)[address] [place] [address] NRBC (PER 100 WBCS) BY AUTOMATED COUNT 0.0 % Normal 0 [facility] Comment on above: Performed By: #### L [id number] ####[facility] (BEAKER)[address] [place] [address] PLATELETS (10*3/UL) IN BLOOD AUTOMATED COUNT 272 10*3/uL Normal 150-400 [facility] Comment on above: Performed By: #### L [id number] ####[facility] (BEAKER)[address] [place] [address] RBC (Bld) [#/Vol] 3.95 10*6/uL Normal 3.80-5.00 [facility] Comment on above: Performed By: #### L [id number] ####[facility] ([facility])[address] [place] [address] WBC (Bld) [#/Vol] 19.92 10*3/uL High 4.00-10.60 [facility] Comment on above: Performed By: #### L [id number] ####[facility] ([facility])[address] [place] [address] COMPREHENSIVE METABOLIC PANE Adam 09-03-2024 Albumin [Mass/Vol] 3.6 g/dL Normal 3.5-5.7 [facility] Comment on above: Performed By: #### L [id number] #### [facility] ([facility]) [address] [place] [address] ALP [Catalytic activity/Vol] 54 U/L Normal 34-104 [facility] Comment on above: Performed By: #### L [id number] #### [facility] [address] [place] [address] ALT [Catalytic activity/Vol] 19 U/L Normal 7-52 [facility] Comment on above: Performed By: #### L [id number] #### [facility] [address] [place] [address] Anion gap [Moles/Vol] 11 mmol/L Normal 7-20 [facility] Comment on above: Performed By: #### L [id number] #### [facility] [address] [place] [address] AST [Catalytic activity/Vol] 25 U/L Normal 13-39 [facility] Comment on above: Performed By: #### L [id number] #### [facility] [address] [place] [address] Bilirubin [Mass/Vol] 0.4 mg/dL Normal 0.3-1.0 [facility] Comment on above: Performed By: #### L [id number] #### [facility] ([facility] [address] [place] [address] Calcium [Mass/Vol] 8.3 mg/dL Low 8.6-10.3 [facility] Comment on above: Performed By: #### L [id number] #### [facility] ([facility] [address] [place] [address] Chloride [Moles/Vol] 103 mmol/L Normal 98-107 [facility] Comment on above: Performed By: #### L [id number] #### [facility] ([facility]) [address] [place] [address] CO2 [Moles/Vol] 25 mmol/L Normal 21-31 [facility] Comment on above: Performed By: #### L [id number] #### [facility] ([facility]) [address] [place] [address] Creatinine [Mass/Vol] 1.48 mg/dL High 0.60-1.20 [facility] Comment on above: Performed By: #### L [id number] #### [facility] ([facility]) [address] [place] [address] GLOMERULAR FILTRATION RATE ML/MIN/1.73 SQ M.PREDICTED 37.6 mL/min/1.73m*2 Low >60.0 [facility] Comment on above: Result Comment: [...] individuals. Performed By: #### L [id number] #### [facility] ([facility] [address] [place] [address] Glucose [Mass/Vol] 130 mg/dL High 70-100 [facility] Comment on above: Performed By: #### L [id number] #### [facility] ([facility]) [address] [place] [address] Potassium [Moles/Vol] 4.8 mmol/L Normal 3.5-5.1 [facility] Comment on above: Performed By: #### L [id number] #### [facility] ([facility]) [address] [place] [address] Protein [Mass/Vol] 6.0 g/dL Normal 6.0-8.3 [facility] Comment on above: Performed By: #### L [id number] #### [facility] ([facility]) [address] [place] [address] Sodium [Moles/Vol] 134 mmol/L Low 136-145 [facility] Comment on above: Performed By: #### L [id number] #### [facility] ([facility]) [address] [place] [address] Urea nitrogen [Mass/Vol] 29 mg/dL High 7-25 [facility] Comment on above: Performed By: #### L [id number] #### [facility] ([facility]) [address] [place] [address] UREA NITROGEN/CREATININE (MASS RATIO) IN SER/PLAS 19.6 Normal [facility] Comment on above: Performed By: #### L [id number] #### [facility] ([facility]) [address] [place] [address] HEMOGLOBIN A1Con 09-03-2024 Glucose [Mass/Vol] 143 mg/dL Normal [facility] Comment on above: Performed By: #### L [id number] #### [facility] ([facility]) [address] [place] [address] HbA1c (Bld) [Mass fraction] 6.6 % High 4.0-6.0 [facility] Comment on above: Performed By: #### L [id number] #### [facility] ([facility] [address] [place] [address] HIGH SENSITIVITY TROPONIN Io n 09-03-2024 HS TROPONIN I (NG/L) 1478 ng/L Critically high <15 [facility] Comment on above: Performed By: #### L [id number] #### [facility] ([facility]) [address] [place] [address] HS TROPONIN I (NG/L) 1746 ng/L Critically high <15 [facility] Comment on above: Performed By: #### L [id number] #### [facility] ([facility]) [address] [place] [address] HS TROPONIN I (NG/L) 1891 ng/L Critically high <15 [facility] Comment on above: Performed By: #### L [id number] #### [facility] ([facility]) [address] [place] [address] LACTIC ACID WITH 4 HOUR REFL EXon 09-03-2024 LACTATE (MMOL/L) IN SER/PLAS 1.6 mmol/L Normal 0.5-2.2 [facility] Comment on above: Performed By: #### L [id number] ####[facility] ([facility])[address] [place] [address] LIPID PANELon 09-03-2024 CHOL/HDL 1.8 mg/dL Normal [facility] Comment on above: Performed By: #### L [id number] ####[facility] ([facility])[address] [place] [address] Cholesterol [Mass/Vol] 125 mg/dL Normal 120-200 [facility] Comment on above: Performed By: #### L [id number] ####[facility] [place] [address] Magnesium [Mass/Vol] 44 mg/dL Normal <150 [facility] Comment on above: Result Comment: TRIG LYCERIDE REFERENCE RANGE: 20 YEARS AND OLDER CARDIOVASCULAR RISK LESS THAN 150 mg/dL LOW RISK 150 TO 199 mg/dL BORDERLINE RISK 200 mg/dL AND GREATER HIGH RISK Performed By: #### L [id number] ####[facility] (BEAKER)[address] [place] [address] Magnesium [Mass/Vol] 46 mg/dL Normal 0-160 [facility] Comment on above: Performed By: #### L [id number] ####[facility] (BEAKER)[address] [place] [address] Magnesium [Mass/Vol] 70 mg/dL Normal 23-92 [facility] Comment on above: Performed By: #### L [id number] ####[facility] (BEAKER)[address] [place] [address] NON HDL CHOL. (LDL+VLDL) 55 Normal [facility] Comment on above: Performed By: #### L [id number] ####[facility] (BEAKER)[address] [place] [address] TOTAL VLDL-C 9 mg/dL Normal 0-40 [facility] Comment on above: Performed By: #### L [id number] ####[facility] (BEAKER)[address] [place] [address] LIPOPROTEIN A (LPA)on 2024 Magnesium [Mass/Vol] 33 mg/dL High <=29 [facility] Comment on above: Result Comment: Perf ormed By: [facility] [address] [place] [address] Senior Statistician: Amol Tran MD, PhD CLIA Number: [id number] Performed By: #### L [id number] #### [facility] ([facility]) [address] [place] [address] MAGNESIUMon 09-03-2024 Magnesium [Mass/Vol] 1.8 mg/dL Low 1.9-2.7 [facility] Comment on above: Performed By: #### L [id number] #### [facility] (BEAKER) [address] [place] [address] SPUTUM CULTUREon 09-03-2024 GRAM STAIN RESULT Normal [facility] Comment on above: Order Comment: Light Growth Colonies Consistent with Upper Respiratory Terrie Result Comment: 10-2 5 Squamous Epithelial Cells Per Low Power Field >25 Polys Per Low Power Field Few Gram positive cocci in pairs Performed By: #### L [id number] ####[facility] (BEAKER)[address] [place] [address] ALL CBC WITH AUTO DIFFon BASOPHILS ABSOLUTE AUTO 0.1 [facility] Basophils/100 WBC (Bld) 0.8 % 0.2 - 2.0 % [facility] Eosinophils/100 WBC (Bld) 0.9 % 0.9 - 7.0 % [facility] Erythrocyte distribution width (RBC) [Ratio] 14.1 % 11.0 - 15.0 % [facility] Hematocrit (Bld) [Volume fraction] 38.4 % 36.0 - 48.0 % [facility] Hemoglobin (Bld) [Mass/Vol] 12.4 g/dL 12.0 - 16.0 g/dL [facility] IMMATURE GRANULOCYTES ABS AUTO 0.07 High [facility] Immature granulocytes/100 WBC (Bld) 0.7 % High 0.0 - 0.5 % [facility] Interpretation and review of laboratory results Abnormal [facility] LYMPHOCYTES ABSOLUTE AUTO 2.1 [facility] Lymphocytes/100 WBC (Bld) 19.2 % Low 20.5 - 60.0 % [facility] MCH (RBC) [Entitic mass] 31.6 pg 26.7 - 34.0 pg [facility] MCHC (RBC) [Mass/Vol] 32.3 g/dL 29.9 - 35.2 g/dL [facility] MCV (RBC) [Entitic vol] 97.7 fL 81.0 - 99.0 fL [facility] MONOCYTES ABSOLUTE AUTO 0.9 High [facility] Monocytes/100 WBC (Bld) 8.2 % 1.7 - 12.0 % [facility] NEUTROPHILS ABSOLUTE AUTO 7.5 High [facility] Neutrophils/100 WBC (Bld) 70.2 % 43.0 - 75.0 % [facility] Platelet mean volume (Bld) [Entitic vol] 9 fL Low 9.5 - 13.5 fL [facility] TBH EO # 0.1 [facility] TBH PLT 370 [facility] TB RBC 3.93 Low [facility] TBH WBC 10.7 [facility] Office Visiton 08-01-2024 Follow-up visit [id number] Chiara Eduardo 1955 F Date Provider Department Center 08/01/2024 [id number] AZEVEDO JUSTIN Garcia Family History Problem Relation Age of Onset Stroke Mother Kidney disease Father Coronary artery disease Paternal Grandfather Family Status - Relation Status Age at Mother Father Paternal Grandfather Level of Service:44133 MD OFFICE/OUTPATIENT ESTABLISHED LOW MDM 20 MIN Normal [facility] ALL CBC WITH AUTO DIFFon BASOPHILS ABSOLUTE AUTO 0.1 [facility] Basophils/100 WBC (Bld) 0.5 % 0.2 - 2.0 % [facility] Eosinophils/100 WBC (Bld) 0.3 % Low 0.9 - 7.0 % [facility] Erythrocyte distribution width (RBC) [Ratio] 14.6 % 11.0 - 15.0 % [facility] Hematocrit (Bld) [Volume fraction] 37.3 % 36.0 - 48.0 % [facility] Hemoglobin (Bld) [Mass/Vol] 12.3 g/dL 12.0 - 16.0 g/dL [facility] IMMATURE GRANULOCYTES ABS AUTO 0.04 High [facility] Immature granulocytes/100 WBC (Bld) 0.3 % 0.0 - 0.5 % [facility] Interpretation and review of laboratory results Abnormal [facility] LYMPHOCYTES ABSOLUTE AUTO 1.8 [facility] Lymphocytes/100 WBC (Bld) 15.7 % Low 20.5 - 60.0 % [facility] MCH (RBC) [Entitic mass] 32.1 pg 26.7 - 34.0 pg [facility] MCHC (RBC) [Mass/Vol] 33 g/dL 29.9 - 35.2 g/dL [facility] MCV (RBC) [Entitic vol] 97.4 fL 81.0 - 99.0 fL [facility] MONOCYTES ABSOLUTE AUTO 0.8 [facility] Monocytes/100 WBC (Bld) 6.9 % 1.7 - 12.0 % [facility] NEUTROPHILS ABSOLUTE AUTO 8.8 High [facility] Neutrophils/100 WBC (Bld) 76.3 % High 43.0 - 75.0 % [facility] Platelet mean volume (Bld) [Entitic vol] 9.3 fL Low 9.5 - 13.5 fL [facility] TBH EO # 0 [facility] TBH PLT 308 [facility] TB RBC 3.83 Low [facility] TBH WBC 11.5 High [facility] Urine Cultureon 07-26-2024 Bacteria identified Cx Nom (U) 50,000 colonies/ml mixed bacterial skin contaminants 2 Days PERFORMED BY: [facility] [address] [place] [address] PATHOLOGIST LITIGATION ATTORNEY LETICIA KAHN M.D. Normal [facility] Comment on above: Performed By: #### C UU #### [facility] [id number] [facility] 36on 07-25-2024 36 Regarding labs from 07/25/2024 [...] will wait until 07/26/2024 and [facility]. [facility] work [facility]. Advised patient if she has fever, chills or not feeling well to go to the ER. Patient verbalized understanding. MD Oralia Luevano MA I see that she is on Prednisone. That may be the cause. She is still to discuss with her PCP. Patient states she is still taking the prednisone and will still call her PCP on 07/26/2024 Normal [facility] ALL CBC WITH AUTO DIFFon Erythrocyte distribution width (RBC) [Ratio] 14.5 % 11.0 - 15.0 % [facility] Hematocrit (Bld) [Volume fraction] 37.9 % 36.0 - 48.0 % [facility] Hemoglobin (Bld) [Mass/Vol] 12.4 g/dL 12.0 - 16.0 g/dL [facility] Interpretation and review of laboratory results Abnormal [facility] MCH (RBC) [Entitic mass] 31.3 pg 26.7 - 34.0 pg [facility] MCHC (RBC) [Mass/Vol] 32.7 g/dL 29.9 - 35.2 g/dL [facility] MCV (RBC) [Entitic vol] 95.7 fL 81.0 - 99.0 fL [facility] Platelet mean volume (Bld) [Entitic vol] 9.4 fL Low 9.5 - 13.5 fL [facility] TBH PLT 322 [facility] RBC 3.96 Low [facility]H WBC 23.5 High [facility]ISY[facility] Telephoneon 07-25-2024 Telephone [id number] Chiara Eduardo 1955 F Date Provider Department Center 07/25/2024 [id number] HARRISON CARD [facility] Family History Problem Relation Age of Onset Stroke Mother Kidney disease Father Coronary artery disease Paternal Grandfather Family Status - Relation Status Age at Mother Father Paternal Grandfather [facility] Erythrocyte distribution wid th Auto (RBC) [Ratio]on 07-17-2024 Erythrocyte distribution width (RBC) [Ratio] Erythrocyte distribution width [Ratio] by Automated count 11.0-15.0 [facility] Estimated glomerular filtrat ion rate (GFR) non- Americanon 07-17-2024 GFR/1.73 sq M.predicted among non-blacks MDRD (S/P/Bld) [Vol rate/Area] Estimated glomerular filtration rate (GFR) non- Low >=60 mL/min/1.73m 2 [facility] Hematocrit Auto (Bld) [Volum e fraction]on 07-17-2024 Hematocrit (Bld) [Volume fraction] Hematocrit [Volume Fraction] of Blood by Automated count 36.0-48.0 [facility] Hemoglobin [Mass/volume] in Bloodon 07-17-2024 Hemoglobin (Bld) [Mass/Vol] Hemoglobin [Mass/volume] in Blood 12.0-16.0 [facility] Laboratory - Chemistry and C hemistry - challengeon 07-17-2024 Albumin [Mass/Vol] 3.4 g/dL 3.4-5.0 [facility] Calcium [Mass/Vol] 8.8 mg/dL 8.5-10.1 [facility] Chloride [Moles/Vol] 99 mmol/L 98-107 [facility] CO2 [Moles/Vol] 27.2 mmol/L 21.0-32.0 [facility] Creatinine [Mass/Vol] 1.44 mg/dL High 0.55-1.02 [facility] GFR/1.73 sq M.predicted MDRD (S/P/Bld) [Vol rate/Area] 43 mL/min/{1.73_m2} Low >=60 mL/min/1.73m 2 [facility] Glucose [Mass/Vol] 105 mg/dL 74-106 [facility] Magnesium [Mass/Vol] 2.1 mg/dL 1.8-2.4 [facility] Potassium [Moles/Vol] 4.9 mmol/L 3.5-5.1 [facility] Sodium [Moles/Vol] 135 mmol/L Low 136-145 [facility] Urate [Mass/Vol] 5.0 mg/dL 2.6-6.0 [facility] Urea nitrogen [Mass/Vol] 20.0 mg/dL High 7.0-18.0 [facility] Urea nitrogen/Creatinine [Mass ratio] 13.9 mg/mg [facility] Laboratory - Urinalysison Protein (U) [Mass/Vol] 25.2 mg/dL High <=11.9 [facility] Leukocytes [#/volume] correc maryuri for nucleated erythrocytes in Blood by Automated counon 07-17-2024 WBC corrected for nucl RBC Auto (Bld) [#/Vol] Leukocytes [#/volume] corrected for nucleated erythrocytes in Blood by Automated coun 4.0-11.0 [facility] MCH Auto (RBC) [Entitic mass ]on 07-17-2024 MCH (RBC) [Entitic mass] MCH [Entitic mass] by Automated count 26.7-34.0 [facility] MCHC Auto (RBC) [Mass/Vol]on 07-17-2024 MCHC (RBC) [Mass/Vol] MCHC [Mass/volume] by Automated count 29.9-35.2 [facility] MCV Auto (RBC) [Entitic vol] on 07-17-2024 MCV (RBC) [Entitic vol] MCV [Entitic volume] by Automated count 81.0-99.0 [facility] No Panel Informationon 07-17 Parathyroid Hormone (Intact) 68 pg/mL Abnormal 15-65 [facility] Comment on above: Performed at: [facility] psicofxp [address] [id number] Director: True Herron PhD, Phone: [phone] Phosphorus Level 3.2 mg/dL 2.6-4.7 [facility] Urine Random Creatinine 68.16 mg/dL 20.00-300.00 [facility] Platelet mean volume Auto (B ld) [Entitic vol]on 07-17-2024 Platelet mean volume (Bld) [Entitic vol] Platelet mean volume [Entitic volume] in Blood by Automated count 9.5-13.5 [facility] Platelets Auto (Bld) [#/Vol] on 07-17-2024 Platelets (Bld) [#/Vol] Platelets [#/volume] in Blood by Automated count 150-450 [facility] RBC Auto (Bld) [#/Vol]on RBC (Bld) [#/Vol] Erythrocytes [#/volume] in Blood by Automated count Low 4.20-5.40 [facility] Serum or plasma anion gap de terminationon 07-17-2024 Anion gap [Moles/Vol] Serum or plasma an ion gap determination [facility] TBH URINE T PROTEIN CREAT RA TIOon 07-17-2024 CREATININE URINE RANDOM 68.16 mg/dL 20.00 - 300.00 mg/dL [facility] Interpretation and review of laboratory results Abnormal [facility] Protein (U) [Mass/Vol] 25.2 mg/dL High NINF - 11.9 mg/dL [facility] PROTEIN CREATININE RATIO URINE 0.37 [facility] Urine protein/creatinine rat ioon 07-17-2024 Protein/Creatinine (U) [Ratio] Urine protein/creatinine ratio [facility] ANESon 07-03-2024 ANES - Attestation signed by Abby Azevedo MD at 07/03/2024 9:27 AM Abby Azevedo MD, MPH, [facility], [facility], [facility] Interventional Cardiology Pager Email: [email or web address] Patient: Chiara Eduardo Procedure Information Date/Time: 07/03/24 1030 Procedures: Coronary angiography - PC APPROVED 06/16-09/13 Becky MAO Right heart cath Location: [facility] [employer] [facility] / [facility] (Cath) Providers: Abby Azevedo [...] 07-03-2024 HP - Attestation signed by Abby Azevedo MD at 07/03/2024 9:27 AM Abby Azevedo MD, MPH, [facility], [facility], [facility] Interventional Cardiology Pager Email: [email or web address] H&P reviewed. The patient was examined and there are no changes to the H&P. Proceed with CORS + C Geo Laboy MD PGY-5 Photo Lab Manager [facility] Pager # [phone] [facility] NURSNOTEon 07-03-2024 NURSNOTE RN educated pt on d/ [...] 100ml per hr for pre cath hydration [facility] ALL CBC WITH AUTO DIFFon BASOPHILS ABSOLUTE AUTO 0.1 [facility] Basophils/100 WBC (Bld) 0.7 % 0.2 - 2.0 % [facility] Eosinophils/100 WBC (Bld) 0.9 % 0.9 - 7.0 % [facility] Erythrocyte distribution width (RBC) [Ratio] 15.5 % High 11.0 - 15.0 % [facility] Hematocrit (Bld) [Volume fraction] 36.4 % 36.0 - 48.0 % [facility] Hemoglobin (Bld) [Mass/Vol] 12 g/dL 12.0 - 16.0 g/dL [facility] IMMATURE GRANULOCYTES ABS AUTO 0.04 High [facility] Immature granulocytes/100 WBC (Bld) 0.4 % 0.0 - 0.5 % [facility] Interpretation and review of laboratory results Abnormal [facility] LYMPHOCYTES ABSOLUTE AUTO 1.2 [facility] Lymphocytes/100 WBC (Bld) 12.3 % Low 20.5 - 60.0 % [facility] MCH (RBC) [Entitic mass] 31.8 pg 26.7 - 34.0 pg [facility] MCHC (RBC) [Mass/Vol] 33 g/dL 29.9 - 35.2 g/dL [facility] MCV (RBC) [Entitic vol] 96.6 fL 81.0 - 99.0 fL [facility] MONOCYTES ABSOLUTE AUTO 0.7 [facility] Monocytes/100 WBC (Bld) 6.6 % 1.7 - 12.0 % [facility] NEUTROPHILS ABSOLUTE AUTO 8 High [facility] Neutrophils/100 WBC (Bld) 79.1 % High 43.0 - 75.0 % [facility] Platelet mean volume (Bld) [Entitic vol] 8.8 fL Low 9.5 - 13.5 fL [facility] TBH EO # 0.1 [facility] TB PLT 290 [facility] RBC 3.77 Low [facility] WBC 10.1 [facility] HPon 06-15-2024 [facility] Cardiology Clinic Note Chief Complaint: Patient here for follow up chest pain and addition of Ranexa per Dr. Sequeira. She thinks she's more SOB now that she's on it. Denies chest pain, palpitations, and lightheadedness/synco pe. HPI: Chiara Eduardo is a 69 y.o. female with a history of coronary artery disease, prior stent placement, COPD, nonsustained ventricular tachycardia here due to worsening symptoms. For the past several months, she has noticed worsening shortness of breath. Her street roller engineer adjusted her inhalers but this does not [...] kidney disease, COPD (chronic obstructive pulmonary disease) ([facility]), Coronary artery disease, Coronary artery disease involving [place] coronary artery of [place] heart without angina pectoris (12/28/2016), Essential hypertension [...] [facility] Office Visiton 06-15-2024 Follow-up visit [id number] Chiara Eduardo 1955 F Date Provider Department Center 06/15/2024 Kee-ABBY AZEVEDO JUSTIN Garcia Family History Problem Relation Age of Onset Stroke Mother Kidney disease Father Coronary artery disease Paternal Grandfather Family Status - Relation Status Age at Mother Father Paternal Grandfather Level of Service:08338 MD OFFICE/OUTPATIENT ESTABLISHED HIGH MDM 40 MIN [facility] Orders Onlyon 06-15-2024 Orders Only [id number] Chiara Eduardo 1955 F Date Provider Department Center 06/15/2024 ALLAN BHAKTA JUSTIN [facility] Family History Problem Relation Age of Onset Stroke Mother Kidney disease Father Coronary artery disease Paternal Grandfather Family Status - Relation Status Age at Mother Father Paternal Grandfather Normal [facility] Office Visiton 05-23-2024 Follow-up visit [id number] Chiara Eduardo 1955 F Date Provider Department Center 05/23/2024 XANDER FARLEY JUSTIN [facility] Family History Problem Relation Age of Onset Stroke Mother Kidney disease Father Coronary artery disease Paternal Grandfather Family Status - Relation Status Age at Mother Father Paternal Grandfather Level of Service:[id number] MD OFFICE/OUTPATIENT ESTABLISHED LOW MDM 20 MIN [facility] TBH URINE T PROTEIN CREAT RA TIOon 02-02-2024 CREATININE URINE RANDOM 78.2 mg/dL 20.00 - 300.00 mg/dL [facility] Protein (U) [Mass/Vol] 8.7 mg/dL NINF - 11.9 mg/dL [facility] PROTEIN CREATININE RATIO URINE 0.11 [facility] ALL HEMOGLOBINon 01-24-2024 Hemoglobin (Bld) [Mass/Vol] 11 g/dL Low 12.0 - 16.0 g/dL [facility] Interpretation and review of laboratory results Abnormal [facility]24 [facility] Patient seen today b y Dr. Sequeira. He wants to know if she can stop Effient due to easy bruising/bleeding. Please advise. Thanks. [facility] Office Visiton 01-04-2024 Follow-up visit [id number] Chiara Eduardo Brown 1955 F Date Provider Department Center 01/04/[address] [facility]-XANDER SEQUEIRA JUSTIN [facility] Family History Problem Relation Age of Onset Stroke Mother Kidney disease Father Coronary artery disease Paternal Grandfather Family Status - Relation Status Age at Mother Father Paternal Grandfather Level of Service:[id number] MD OFFICE/OUTPATIENT ESTABLISHED LOW MDM 20 MIN Normal [facility] Iron binding capacity [Mass/ volume] in Serum or Plasmaon 11-23-2023 Iron binding capacity [Mass/Vol] 365.0 ug/dL 250.0-450.0 [facility] Iron saturation [Mass Fracti on] in Serum or Plasmaon 11-23-2023 Iron saturation [Mass fraction] 5.5 % [facility] Laboratory - Chemistry and C hemistry - challengeon 11-23-2023 Ferritin [Mass/Vol] 25.0 ng/mL 8.0-252.0 [facility] Iron [Mass/Vol] 20.0 ug/dL Low 50.0-170.0 [facility] [employer] [facility] [facility] 2023 Interpretation and review of laboratory results Abnormal [facility] IRON 20.0 ug/dL Low 50.0 - 170.0 ug/dL [facility] PERCENT IRON SATURATION 5.5 % [facility] TOTAL IRON BINDING CAPACITY 365.0 ug/dL 250.0 - 450.0 ug/dL [facility] Erythrocyte distribution wid th Auto (RBC) [Ratio]on 11-08-2023 Erythrocyte distribution width (RBC) [Ratio] 16.4 % High 11.0-15.0 [facility] Estimated glomerular filtrat ion rate (GFR) non- Americanon 11-08-2023 GFR/1.73 sq M.predicted among non-blacks MDRD (S/P/Bld) [Vol rate/Area] 37 mL/min/{1.73_m2} Low >=60 [facility] Globulin Calc (S) [Mass/Vol] on 11-08-2023 Globulin (S) [Mass/Vol] 3.9 g/dL [facility] Hematocrit Auto (Bld) [Volum e fraction]on 11-08-2023 Hematocrit (Bld) [Volume fraction] 28.1 % Low 36.0-48.0 [facility] Hemoglobin [Mass/volume] in Bloodon 11-08-2023 Hemoglobin (Bld) [Mass/Vol] 8.7 g/dL Low 12.0-16.0 [facility] Laboratory - Chemistry and C hemistry - challengeon 11-08-2023 Albumin [Mass/Vol] 3.4 g/dL 3.4-5.0 [facility] ALP [Catalytic activity/Vol] 81 U/L 46-116 [facility] ALT [Catalytic activity/Vol] 26 U/L 14-59 [facility] AST [Catalytic activity/Vol] 23 U/L 15-37 [facility] Bilirubin [Mass/Vol] 0.3 mg/dL 0.2-1.0 [facility] Calcium [Mass/Vol] 8.7 mg/dL 8.5-10.1 [facility] Chloride [Moles/Vol] 93 mmol/L Low 98-107 [facility] CO2 [Moles/Vol] 27.4 mmol/L 21.0-32.0 [facility] Creatinine [Mass/Vol] 1.40 mg/dL High 0.55-1.02 [facility] GFR/1.73 sq M.predicted MDRD (S/P/Bld) [Vol rate/Area] 45 mL/min/{1.73_m2} Low >=60 [facility] Glucose [Mass/Vol] 96 mg/dL 74-106 [facility] Magnesium [Mass/Vol] 2.2 mg/dL 1.8-2.4 [facility] Potassium [Moles/Vol] 4.4 mmol/L 3.5-5.1 [facility] Protein [Mass/Vol] 7.3 g/dL 6.4-8.2 [facility] Sodium [Moles/Vol] 128 mmol/L Low 136-145 [facility] Urate [Mass/Vol] 5.6 mg/dL 2.6-6.0 [facility] Urea nitrogen [Mass/Vol] 20.0 mg/dL High 7.0-18.0 [facility] Urea nitrogen/Creatinine [Mass ratio] 14.3 mg/mg [facility] Bilirubin Ql (U) Negative NEGATIVE [facility] Glucose (U) [Mass/Vol] Negative NEGATIVE [facility] Ketones Ql (U) Negative NEGATIVE [facility] pH (U) 7.5 [pH] 5.0-9.0 [facility] Specific gravity (U) [Rel density] 1.010 1.005-1.025 [facility] Urobilinogen Qn (U) 0.2 {Chuy'U}/dL 0.2-1.0 [facility] Laboratory - Specimen inform ationon 11-08-2023 Appearance (U) CLEAR CLEAR [facility] Color (U) YELLOW YELLOW [facility] Laboratory - Urinalysison Leukocyte esterase Test strip Ql (U) Negative NEGATIVE [facility] Nitrite Ql (U) Negative NEGATIVE [facility] Protein (U) [Mass/Vol] 11.9 mg/dL <=11.9 [facility] Protein Ql (U) Negative NEG/TRACE [facility] Leukocytes [#/volume] correc maryuri for nucleated erythrocytes in Blood by Automated counon 11-08-2023 WBC corrected for nucl RBC Auto (Bld) [#/Vol] 7.3 10 3/uL 4.0-11.0 [facility] MCH Auto (RBC) [Entitic mass ]on 11-08-2023 MCH (RBC) [Entitic mass] 26.1 pg Low 26.7-34.0 [facility] MCHC Auto (RBC) [Mass/Vol]on 11-08-2023 MCHC (RBC) [Mass/Vol] 31.0 g/dL 29.9-35.2 [facility] MCV Auto (RBC) [Entitic vol] on 11-08-2023 MCV (RBC) [Entitic vol] 84.4 fL 81.0-99.0 [facility] No Panel Informationon 11-07 25-Hydroxy Vitamin D Total 32.6 ng/mL [facility] Comment on above: <20 ng/mL Vit D defi cient20-<30 ng/mL Vit D olbdmspmdamj22-367 ng/mL Vit D sufficient>100 ng/mL Potential Toxicity Parathyroid Hormone (Intact) 106 pg/mL Abnormal [facility] Comment on above: Performed at: [facility] psicofxp [place] [id number] Director: True Herron PhD, Phone: [phone] Phosphorus Level 3.8 mg/dL 2.6-4.7 [facility] Urine Occult Blood Negative NEGATIVE [facility] Urine Random Creatinine 73.41 mg/dL 20.00-300.00 [facility] Platelet mean volume Auto (B ld) [Entitic vol]on 11-08-2023 Platelet mean volume (Bld) [Entitic vol] 8.6 fL Low 9.5-13.5 [facility] Platelets Auto (Bld) [#/Vol] on 11-08-2023 Platelets (Bld) [#/Vol] 401 10 3/uL 150-450 [facility] RBC Auto (Bld) [#/Vol]on RBC (Bld) [#/Vol] 3.33 10 6/uL Low 4.20-5.40 [facility] Serum or plasma albumin/glob ulin mass ratioon 11-08-2023 Albumin/Globulin [Mass ratio] 0.9 {ratio} [facility] Serum or plasma anion gap de terminationon 11-08-2023 Anion gap [Moles/Vol] 12.0 mmol/L Fi [facility] Urine protein/creatinine rat ioon 11-08-2023 Protein/Creatinine (U) [Ratio] 0.16 [facility] PTH INTACTon 08-04-2022 PTH, Intact 41 pg/mL Normal [facility] Comment on above: Performed By: #### P THINT ####[facility] [address] [place] [address]Dr. Osmel Shelton HEMOGRAM AND PLATELon 2022 Hematocrit (Bld) [Volume fraction] 34.6 % Critically low 36.0-48.0 [facility] Comment on above: Performed By: #### H H #### [facility] [address] [address] [address] Osmel Shelton Hemoglobin (Bld) [Mass/Vol] 11.1 g/dL Critically low 12.0-16.0 [facility] Comment on above: Performed By: #### H H #### [facility] [address] [place] [address] Dr. Osmel Shelton MCH (RBC) [Entitic mass] 29.3 pg Normal 26.7-34.0 [facility] Comment on above: Performed By: #### H H #### [facility] [address] [place] [address] Dr. Osmel Shelton MCHC (RBC) [Mass/Vol] 32.1 g/dL Normal 29.9-35.2 [facility] Comment on above: Performed By: #### H H #### [facility] [address] [place] [address] Dr. Osmel Shelton MCV (RBC) [Entitic vol] 91.3 fL Normal 81.0-99.0 [facility] Comment on above: Performed By: #### H H #### [facility] [address] [place] [address] Dr. Osmel Shelton PLT 306 103/ul Normal 150-450 [facility] Comment on above: Performed By: #### H H #### [facility] [address] [address] [address] Osmel Shelton RBC 3.79 106/ul Critically low 4.20-5.40 [facility] Comment on above: Performed By: #### H H #### [facility] [address] [place] [address] Dr. Osmel Shelton WBC 4.8 103/ul Normal 4.0-11.0 [facility] Comment on above: Performed By: #### H H #### [facility] [address] [address] [address] Osmel Shelton MAGNESIUMon 08-03-2022 Magnesium [Mass/Vol] 1.9 mg/dL Normal 1.8-2.4 [facility] Comment on above: Performed By: #### P HOS, MG, CMP, URIC #### [facility] [address] [address] [address] Osmel Shelton PHOSPHORUSon 08-03-2022 Phosphate [Mass/Vol] 4.4 mg/dL Normal 2.6-4.7 [facility] Comment on above: Performed By: #### P HOS, MG, CMP, URIC #### [facility] [address] [address] [address] Osmel Shelton PROF 14(COMP METB)on 023 Albumin [Mass/Vol] 3.6 g/dL Normal 3.4-5.0 [facility] Comment on above: Performed By: #### P HOS, MG, CMP, URIC ####[facility] [address] [place] [address]DrLissett Shelton Albumin/Globulin [Mass ratio] 0.9 {ratio} Normal [facility] Comment on above: Performed By: #### P HOS, MG, CMP, URIC ####[facility] [address] [place] [id number] Shelton ALP [Catalytic activity/Vol] 136 U/L Critically high 46-116 [facility] Comment on above: Performed By: #### P HOS, MG, CMP, URIC ####[facility] [address] [place] [id number] Shelton ALT [Catalytic activity/Vol] 29 U/L Normal 14-59 [facility] Comment on above: Performed By: #### P HOS, MG, CMP, URIC ####[facility] [address] [place] [address]DrLissett Shelton Anion gap [Moles/Vol] 13.5 mmol/L Normal [facility] Comment on above: Performed By: #### P HOS, MG, CMP, URIC ####[facility] [address] [place] [address]Dr. Osmel Shelton AST [Catalytic activity/Vol] 27 U/L Normal 15-37 [facility] Comment on above: Performed By: #### P HOS, MG, CMP, URIC ####[facility] [address] [place] [address]Dr. Osmel Shelton Bilirubin [Mass/Vol] 0.2 mg/dL Normal 0.2-1.0 [facility] Comment on above: Performed By: #### P HOS, MG, CMP, URIC ####[facility] [address] [place] [address]Dr. Osmel Shelton Calcium [Mass/Vol] 9.0 mg/dL Normal 8.5-10.1 [facility] Comment on above: Performed By: #### P HOS, MG, CMP, URIC ####[facility] [address] [place], [place] [address]Dr. Osmel Shelton Chloride [Moles/Vol] 100 mmol/L Normal 98-107 [facility] Comment on above: Performed By: #### P HOS, MG, CMP, URIC ####[facility] [address] [place], [place] [address]Dr. Osmel Shelton CO2 [Moles/Vol] 25.7 mmol/L Normal 21.0-32.[address] [facility] Comment on above: Performed By: #### P HOS, MG, CMP, URIC ####[facility] [address] [place], [place] [address]Dr. Osmel Shelton Creatinine [Mass/Vol] 1.40 mg/dL Critically high 0.55-1.02 [facility] Comment on above: Performed By: #### P HOS, MG, CMP, URIC ####[facility] [address] [place], [place] [address]Dr. Osmel Shelton EGFR-AF BEL[place]AN 45 mL/min/1.73m2 Critically low >=60 [facility] Comment on above: Performed By: #### P HOS, MG, CMP, URIC ####[facility] [address] [place] [address]Dr. Osmel Shelton EGFR-NON AF [place] 37 mL/min/1.73m2 Critically low >=60 [facility] Comment on above: Performed By: #### P HOS, MG, CMP, URIC ####[facility] [address] [place] [address]Dr. Osmel Shelton Globulin (S) [Mass/Vol] 4.2 g/dL Normal [facility] Comment on above: Performed By: #### P HOS, MG, CMP, URIC ####[facility] [address] [place] [address]Dr. Osmel Shelton Glucose [Mass/Vol] 101 mg/dL Normal 74-106 [facility] Comment on above: Performed By: #### P HOS, MG, CMP, URIC ####[facility] [address] [place] [address]Dr. Osmel Shelton Potassium [Moles/Vol] 4.2 mmol/L Normal 3.5-5.1 [facility] Comment on above: Performed By: #### P HOS, MG, CMP, URIC ####[facility] [address] [place], [place] [address]Dr. Osmel Shelton Protein [Mass/Vol] 7.8 g/dL Normal 6.4-8.2 [facility] Comment on above: Performed By: #### P HOS, MG, CMP, URIC ####[facility] [address] [place] [address]Dr. Osmel Shelton Sodium [Moles/Vol] 135 mmol/L Critically low 136-145 [facility] Comment on above: Performed By: #### P HOS, MG, CMP, URIC ####[facility] [address] [place], [place] [address]Dr. Osmel Shelton Urea nitrogen [Mass/Vol] 23.0 mg/dL Critically high 7.0-18.0 [facility] Comment on above: Performed By: #### P HOS, MG, CMP, URIC ####[facility] [address] [place], [place] [address]Dr. Osmel Shelton Urea nitrogen/Creatinine [Mass ratio] 16.4 mg/mg Normal [facility] Comment on above: Performed By: #### P HOS, MG, CMP, URIC ####[facility] [address] [place] [address]Dr. Osmel Shelton UA RANDOMon 08-03-2022 Bilirubin Ql (U) Negative Normal NEGATIVE [facility] Comment on above: Performed By: #### U A #### [facility] [address] [address] [address] Osmel Shelton Clarity (U) CLEAR Normal CLEAR [facility] Comment on above: Performed By: #### U A #### [facility] [address] [address] [address] Osmel Shelton Color (U) LT. YELLOW Normal YELLOW [facility] Comment on above: Performed By: #### U A #### [facility] [address] [place] [address] Dr. Osmel Shelton Glucose Ql (U) Negative Normal NEGATIVE [facility] Comment on above: Performed By: #### U A #### [facility] [address] [address] [address] Osmel Shelton Hemoglobin Ql (U) Negative Normal NEGATIVE [facility] Comment on above: Performed By: #### U A #### [facility] [address] [place] [address] Dr. Osmel Shelton Ketones Ql (U) Negative Normal NEGATIVE [facility] Comment on above: Performed By: #### U A #### [facility] [address] [address] [address] Osmel Shelton LEUKOCYTES Negative Normal NEGATIVE [facility] Comment on above: Performed By: #### U A #### [facility] [address] [address] [address] Osmel Shelton Nitrite Ql (U) Negative Normal NEGATIVE [facility] Comment on above: Performed By: #### U A #### [facility] [address] [address] [address] Osmel Shelton pH (U) 5.5 [pH] Normal 5-9 [facility] Comment on above: Performed By: #### U A #### [facility] [address] [address] [address] Osmel Shelton SPEC GRAVITY <=1.005 Abnormal 1.005-<=1.02 5 [facility] Comment on above: Performed By: #### U A #### [facility] [address] [address] [address] Osmel Shelton UA PROTEIN Negative Normal NEGATIVE/ TRACE [facility] Comment on above: Performed By: #### U A #### [facility] [address] [address] [address] Osmel Shelton Urobilinogen Qn (U) 0.2 {Chuy'U}/dL Normal 0.2 - 1. 0 [facility] Comment on above: Performed By: #### U A #### [facility] [address] [address] [address] Osmel Shelton URIC ACID SERUMon 08-03-2022 Urate [Mass/Vol] 8.4 mg/dL Critically high 2.6-6.0 [facility] Comment on above: Performed By: #### P HOS, MG, CMP, URIC ####[facility] [address] [address]Dr. Osmel Shelton URINE T PROTEIN CREAT RATIOo n 08-03-2022 Protein (U) [Mass/Vol] 4.6 mg/dL Normal <=12.0 [facility] Comment on above: Performed By: #### U RTPCR #### [facility] [address] [address] [address] Osmel Shelton UR PROT CREAT RAT 0.09 Normal [facility] Comment on above: Performed By: #### U RTPCR #### [facility] [address] [address] [address] Osmel Shelton URINE CREAT 50.21 mg/dL Normal 20.00-300.00 [facility] Comment on above: Performed By: #### U RTPCR #### [facility] [address] [address] [address] Osmel Shelton VITAMIN D 25 OHon 08-03-2022 VIT D 25-OH 20.9 ng/mL Normal [facility] Comment on above: Performed By: #### V ITAD ####[facility] [address] [place], [place] [address]Dr. Osmel Shelton VIT D RANGES SEE BELOW Normal [facility] Comment on above: Result Comment: <20 ng/mL Vit D deficient 20 - <30 ng/mL Vit D insufficient 30 - 100 ng/mL Vit D sufficient >100 ng/mL Potential Toxicity Performed By: #### V ITAD ####[facility] [address] [place] [id number]. Osmel Shelton CBC AUTO DIFFon 07-09-2022 BASO # 0.0 103/ul Normal 0.0-0.1 [facility] Comment on above: Performed By: #### C BC #### [facility] [address] [address] [address] Osmel Shelton Basophils/100 WBC (Bld) 0.5 % Normal 0.2-2.0 [facility] Comment on above: Performed By: #### C BC #### [facility] [address] [address] [address] Osmel Shelton EO # 0.2 103/ul Normal 0.0-0.7 [facility] Comment on above: Performed By: #### C BC #### [facility] [address] [address] [address] Osmel Shelton Eosinophils/100 WBC (Bld) 2.9 % Normal 0.9-7.0 [facility] Comment on above: Performed By: #### C BC #### [facility] [address] [address] [address] Osmel Shelton Erythrocyte distribution width (RBC) [Ratio] 14.3 % Normal 11.0-15.0 [facility] Comment on above: Performed By: #### C BC #### [facility] [address] [address] [address] Osmel Shelton Hematocrit (Bld) [Volume fraction] 34.4 % Critically low 36.0-48.0 [facility] Comment on above: Performed By: #### C BC #### [facility] [address] [address] [address] Osmel Shelton Hemoglobin (Bld) [Mass/Vol] 11.4 g/dL Critically low 12.0-16.0 [facility] Comment on above: Performed By: #### C BC #### [facility] [address] [address] [address] Osmel Shelton IG # 0.02 10e3/ul Normal 0.00-0.03 [facility] Comment on above: Performed By: #### C BC #### [facility] [address] [place] [address] Dr. Osmel Shelton IG % 0.4 % Normal 0.0-0.5 [facility] Comment on above: Performed By: #### C BC #### [facility] [address] [place] [address] Dr. Osmel Shelton LYMPH # 1.3 103/ul Normal 1.2-3.8 [facility] Comment on above: Performed By: #### C BC #### [facility] [address] [place] [address] Dr. Osmel Shelton Lymphocytes/100 WBC (Bld) 23.0 % Normal 20.5-60.0 [facility] Comment on above: Performed By: #### C BC #### [facility] [address] [place] [address] Dr. Osmel Shelton MANUAL DIFF REQ NO Normal [facility] Comment on above: Performed By: #### C BC #### [facility] [address] [place] [address] Dr. Osmel Shelton MCH (RBC) [Entitic mass] 29.8 pg Normal 26.7-34.0 [facility] Comment on above: Performed By: #### C BC #### [facility] [address] [place] [address] Dr. Osmel Shelton MCHC (RBC) [Mass/Vol] 33.1 g/dL Normal 29.9-35.2 [facility] Comment on above: Performed By: #### C BC #### [facility] [address] [address] [address] Osmel Shelton MCV (RBC) [Entitic vol] 89.8 fL Normal 81.0-99.0 [facility] Comment on above: Performed By: #### C BC #### [facility] [address] [address] [address] Osmel Shelton MONO # 0.6 103/ul Normal 0.3-0.8 [facility] Comment on above: Performed By: #### C BC #### [facility] [address] [address] [address] Osmel Shelton Monocytes/100 WBC (Bld) 11.0 % Normal 1.7-12.0 [facility] Comment on above: Performed By: #### C BC #### [facility] [address] [place] [address] Dr. Osmel Shelton NEUT # 3.4 103/ul Normal 1.4-6.5 [facility] Comment on above: Performed By: #### C BC #### [facility] [address] [place] [address] Dr. Osmel Shelton Neutrophils/100 WBC (Bld) 62.2 % Normal 43.0-75.0 [facility] Comment on above: Performed By: #### C BC #### [facility] [address] [address] [address] Osmel Shelton Platelet mean volume (Bld) [Entitic vol] 9.4 fL Critically low 9.5-13.5 [facility] Comment on above: Performed By: #### C BC #### [facility] [address] [address] [address] Osmel Shelton PLT 327 103/ul Normal 150-450 [facility] Comment on above: Performed By: #### C BC #### [facility] [address] [address] [address] Osmel Shelton RBC 3.83 106/ul Critically low 4.20-5.40 [facility] Comment on above: Performed By: #### C BC #### [facility] [address] [address] [address] Osmel Shelton WBC 5.5 103/ul Normal 4.0-11.0 [facility] Comment on above: Performed By: #### C BC #### [facility] [address] [address] [address] Osmel Shelton PROF CHEM 8 (BAS METB)on Anion gap [Moles/Vol] 11.7 mmol/L Normal [facility] Comment on above: Performed By: #### B MP ####[facility] [address] [address]Dr. Osmel Shelton Calcium [Mass/Vol] 8.8 mg/dL Normal 8.5-10.1 [facility] Comment on above: Performed By: #### B MP ####[facility] [address] [place] [address] [address]Dr. Osmel Shelton Chloride [Moles/Vol] 99 mmol/L Normal 98-107 [facility] Comment on above: Performed By: #### B MP ####[facility] [address] [place] [address]Dr. Osmel Shelton CO2 [Moles/Vol] 27.1 mmol/L Normal 21.0-32.0 [facility] Comment on above: Performed By: #### B MP ####[facility] [address] [place] [address]Dr. Osmel Shelton Creatinine [Mass/Vol] 1.38 mg/dL Critically high 0.55-1.02 [facility] Comment on above: Performed By: #### B MP ####[facility] [address] [place] [id number]. Osmel Shelton EGFR-AF BELIZEAN 46 mL/min/1.73m2 Critically low >=60 [facility] Comment on above: Performed By: #### B MP ####[facility] [address] [place] [id number]. Osmel Shelton EGFR-NON AF BELIZEAN 38 mL/min/1.73m2 Critically low >=60 [facility] Comment on above: Performed By: #### B MP ####[facility] [address] [place] [id number]. Osmel Shelton Glucose [Mass/Vol] 105 mg/dL Normal 74-106 [facility] Comment on above: Performed By: #### B MP ####[facility] [address] [place] [id number]. Osmel Shelton Potassium [Moles/Vol] 4.8 mmol/L Normal 3.5-5.1 [facility] Comment on above: Performed By: #### B MP ####[facility] [address] [place] [id number]. Osmel Shelton Sodium [Moles/Vol] 133 mmol/L Critically low 136-145 [facility] Comment on above: Performed By: #### B MP ####[facility] [address] [place] [address]Dr. Osmel Shelton Urea nitrogen [Mass/Vol] 19.0 mg/dL Critically high 7.0-18.0 [facility] Comment on above: Performed By: #### B MP ####[facility] [address] [place], [place] [address]Dr. Osmel Shelton Urea nitrogen/Creatinine [Mass ratio] 13.8 mg/mg Normal [facility] Comment on above: Performed By: #### B MP ####[facility] [address] [place], [place] [address]Dr. Osmel Shelton PULMONARY FUNCTION TESTon PULMONARY FUNCTION [...] O2 indicated. Clinical correlation required. Normal [facility] US KIDNEYSon 04-15-2022 US KIDNEYS EXAMINATION: [...] TIMOTHY GUIDRY Date: 2022-04-15 16:21 Normal [facility] CT LUNG CANCER SCREENINGon 1 CT [...] TIMOTHY GUIDRY Date: 2022-01-19 14:40 Normal [facility] CBC AUTO DIFFon 01-05-2022 BASO # 0.1 103/ul Normal 0.0-0.1 [facility] Comment on above: Performed By: #### C BC #### [facility] [address] [place] [address] Dr. Osmel Shelton Basophils/100 WBC (Bld) 1.0 % Normal 0.2-2.0 [facility] Comment on above: Performed By: #### C BC #### [facility] [address] [place] [address] Dr. Osmel Shelton EO # 0.2 103/ul Normal 0.0-0.7 [facility] Comment on above: Performed By: #### C BC #### [facility] [address] [place] [address] Dr. Osmel Shelton Eosinophils/100 WBC (Bld) 3.6 % Normal 0.9-7.0 [facility] Comment on above: Performed By: #### C BC #### [facility] [address] [place] [address] Dr. Osmel Shelton Erythrocyte distribution width (RBC) [Ratio] 14.1 % Normal 11.0-15.0 [facility] Comment on above: Performed By: #### C BC #### [facility] [address] [place] [address] Dr. Osmel Shelton Hematocrit (Bld) [Volume fraction] 36.5 % Normal 36.0-48.0 [facility] Comment on above: Performed By: #### C BC #### [facility] [address] [place] [address] Dr. Osmel Shelton Hemoglobin (Bld) [Mass/Vol] 11.8 g/dL Critically low 12.0-16.0 [facility] Comment on above: Performed By: #### C BC #### [facility] [address] [place] [address] Dr. Osmel Shelton IG # 0.02 10e3/ul Normal 0.00-0.03 [facility] Comment on above: Performed By: #### C BC #### [facility] [address] [place] [address] Dr. Osmel Shelton IG % 0.3 % Normal 0.0-0.5 [facility] Comment on above: Performed By: #### C BC #### [facility] [address] [place] [address] Dr. Osmel Shelton LYMPH # 1.3 103/ul Normal 1.2-3.8 [facility] Comment on above: Performed By: #### C BC #### [facility] [address] [place] [address] Dr. Osmel Shelton Lymphocytes/100 WBC (Bld) 21.4 % Normal 20.5-60.0 [facility] Comment on above: Performed By: #### C BC #### [facility] [address] [place] [address] Dr. Osmel Shelton MANUAL DIFF REQ NO Normal [facility] Comment on above: Performed By: #### C BC #### [facility] [address] [place] [address] Dr. Osmel Shelton MCH (RBC) [Entitic mass] 29.3 pg Normal 26.7-34.0 [facility] Comment on above: Performed By: #### C BC #### [facility] [address] [place] [address] Dr. Osmel Shelton MCHC (RBC) [Mass/Vol] 32.3 g/dL Normal 29.9-35.2 [facility] Comment on above: Performed By: #### C BC #### [facility] [address] [place] [address] Dr. Osmel Shelton MCV (RBC) [Entitic vol] 90.6 fL Normal 81.0-99.0 [facility] Comment on above: Performed By: #### C BC #### [facility] [address] [place] [address] Dr. Osmel Shelton MONO # 0.7 103/ul Normal 0.3-0.8 [facility] Comment on above: Performed By: #### C BC #### [facility] [id number] Osmel Shelton Monocytes/100 WBC (Bld) 11.2 % Normal 1.7-12.0 [facility] Comment on above: Performed By: #### C BC #### [facility] [id number] Osmel Shelton NEUT # 3.7 103/ul Normal 1.4-6.5 [facility] Comment on above: Performed By: #### C BC #### [facility] [id number] Osmel Shelton Neutrophils/100 WBC (Bld) 62.5 % Normal 43.0-75.0 [facility] Comment on above: Performed By: #### C BC #### [facility] [address] [place] [address] Dr. Osmel Shelton Platelet mean volume (Bld) [Entitic vol] 9.4 fL Critically low 9.5-13.5 [facility] Comment on above: Performed By: #### C BC #### [facility] [address] [address] [address] Osmel Shelton PLT 364 103/ul Normal 150-450 [facility] Comment on above: Performed By: #### C BC #### [facility] [address] [place], [place] [address] Dr. Osmel Shelton RBC 4.03 106/ul Critically low 4.20-5.40 [facility] Comment on above: Performed By: #### C BC #### [facility] [address] [place] [address] Dr. Osmel Shelton WBC 5.9 103/ul Normal 4.0-11.0 [facility] Comment on above: Performed By: #### C BC #### [facility] [address] [place], [place] [id number] Dr. Osmel Shelton LIPID PROFILEon 01-05-2022 CHOL-HDL RATIO NORM SEE BELOW Normal [facility] Comment on above: Result Comment: 3.3 - 4.4 LOW RISK 4.4 - 7.1 AVERAGE RISK 7.1 - 11.0 MODERATE RISK >11.0 HIGH RISK Performed By: #### C MP, LIPID #### [facility] [address] [address] [address] Osmel Shelton Cholesterol [Mass/Vol] 149 mg/dL Normal <=200 [facility] Comment on above: Performed By: #### C MP, LIPID #### [facility] [address] [address] [address] Osmel Shelton Cholesterol in HDL [Mass/Vol] 75 mg/dL Critically high 40-60 [facility] Comment on above: Performed By: #### C MP, LIPID #### [facility] [address] [address] [address] Osmel Shelton Cholesterol in LDL [Mass/Vol] 60.4 mg/dL Normal [facility] Comment on above: Performed By: #### C MP, LIPID #### [facility] [address] [address] [address] Osmel Shelton Cholesterol.total/Chol esterol in HDL [Mass ratio] 2.0 {ratio} Normal [facility] Comment on above: Performed By: #### C MP, LIPID #### [facility] [address] [address] [address] Osmel Shelton HDL NORMAL > or = 60 mg/dl - LO W CARDIOVASCULAR RISK <40 mg/dl - HIGH CARDIOVASCULAR RISK Normal [facility] Comment on above: Performed By: #### C MP, LIPID #### [facility] [address] [address] [address] Osmel Shelton LDL CALC NORMAL SEE BELOW Normal [facility] Comment on above: Result Comment: <100 mg/dl OPTIMAL 100 - 129 mg/dl NEAR OR ABOVE OPTIMAL 130 - 159 mg/dl BORDERLINE HIGH 160 - 189 mg/dl HIGH >190 mg/dl VERY HIGH Performed By: #### C MP, LIPID #### [facility] [address] [address] [address] Osmel Shelton Triglyceride [Mass/Vol] 68 mg/dL Normal <=150 [facility] Comment on above: Performed By: #### C MP, LIPID #### [facility] [address] [address] [address] Osmel Shelton VLDL CALC 13.6 mg/dL Normal [facility] Comment on above: Performed By: #### C MP, LIPID #### [facility] [address] [place] [address] Dr. Osmel Shelton PROF 14(COMP METB)on 022 Albumin [Mass/Vol] 3.6 g/dL Normal 3.4-5.0 [facility] Comment on above: Performed By: #### C MP, LIPID #### [facility] [address] [place] [address] Dr. Osmel Shelton Albumin/Globulin [Mass ratio] 0.9 {ratio} Normal [facility] Comment on above: Performed By: #### C MP, LIPID #### [facility] [address] [place] [address] Dr. Osmel Shelton ALP [Catalytic activity/Vol] 152 U/L Critically high 46-116 [facility] Comment on above: Performed By: #### C MP, LIPID #### [facility] [address] [place] [address] Dr. Osmel Shelton ALT [Catalytic activity/Vol] 29 U/L Normal 14-59 [facility] Comment on above: Performed By: #### C MP, LIPID #### [facility] [address] [place] [address] Dr. Osmel Shelton Anion gap [Moles/Vol] 11.1 mmol/L Normal [facility] Comment on above: Performed By: #### C MP, LIPID #### [facility] [address] [place] [address] Dr. Osmel Shelton AST [Catalytic activity/Vol] 23 U/L Normal 15-37 [facility] Comment on above: Performed By: #### C MP, LIPID #### [facility] [address] [place] [address] Dr. Osmel Shelton Bilirubin [Mass/Vol] 0.3 mg/dL Normal 0.2-1.0 [facility] Comment on above: Performed By: #### C MP, LIPID #### [facility] [address] [place] [address] Dr. Osmel Shelton Calcium [Mass/Vol] 8.9 mg/dL Normal 8.5-10.1 [facility] Comment on above: Performed By: #### C MP, LIPID #### [facility] [address] [address] [address] Osmel Shelton Chloride [Moles/Vol] 96 mmol/L Critically low 98-107 [facility] Comment on above: Performed By: #### C MP, LIPID #### [facility] [address] [address] [address] Osmel Shelton CO2 [Moles/Vol] 28.2 mmol/L Normal 21.0-32.0 [facility] Comment on above: Performed By: #### C MP, LIPID #### [facility] [address] [place] [address] Dr. Osmel Shelton Creatinine [Mass/Vol] 1.46 mg/dL Critically high 0.55-1.02 [facility] Comment on above: Performed By: #### C MP, LIPID #### [facility] [address] [place] [address] Dr. Osmel Shelton EGFR-AF BELIZEAN 43 mL/min/1.73m2 Critically low >=60 [facility] Comment on above: Performed By: #### C MP, LIPID #### [facility] [address] [place] [address] Dr. Osmel Shelton EGFR-NON AF BELIZEAN 36 mL/min/1.73m2 Critically low >=60 [facility] Comment on above: Performed By: #### C MP, LIPID #### [facility] [address] [place] [address] Dr. Osmel Shelton Globulin (S) [Mass/Vol] 4.2 g/dL Normal [facility] Comment on above: Performed By: #### C MP, LIPID #### [facility] [address] [place] [address] Dr. Osmel Shelton Glucose [Mass/Vol] 95 mg/dL Normal 74-106 [facility] Comment on above: Performed By: #### C MP, LIPID #### [facility] [address] [address] [address] Osmel Shelton Potassium [Moles/Vol] 5.3 mmol/L Critically high 3.5-5.1 [facility] Comment on above: Performed By: #### C MP, LIPID #### [facility] [address] [address] [address] Osmel Shelton Protein [Mass/Vol] 7.8 g/dL Normal 6.4-8.2 [facility] Comment on above: Performed By: #### C MP, LIPID #### [facility] [address] [address] [address] Osmel Shelton Sodium [Moles/Vol] 130 mmol/L Critically low 136-145 [facility] Comment on above: Performed By: #### C MP, LIPID #### [facility] [address] [place] [address] Dr. Osmel Shelton Urea nitrogen [Mass/Vol] 22.0 mg/dL Critically high 7.0-18.0 [facility] Comment on above: Performed By: #### C MP, LIPID #### [facility] [address] [address] [address] Osmel Shelton Urea nitrogen/Creatinine [Mass ratio] 15.1 mg/mg Normal [facility] Comment on above: Performed By: #### C MP, LIPID #### [facility] [address] [place] [address] Dr. Osmel Shelton Vital Signs Date Time Vital Sign Value Performing Clinician Facility 11-01-2024 13:15-0400 Diastolic blood pressure 84 mm[Hg] Lisa Perez MD Work Phone: [facility] 11-01-2024 13:15-0400 Heart rate 65 /min Lisa Perez MD Work Phone: [facility] 11-01-2024 13:15-0400 Respiratory rate 16 /min Lisa Perez MD Work Phone: [facility] 11-01-2024 13:15-0400 SaO2% (BldA) [Mass fraction] 99 % Lisa Perez MD Work Phone: [facility] 11-01-2024 13:15-0400 Systolic blood pressure 122 mm[Hg] Lisa Perez MD Work Phone: [facility] 11-01-2024 10:50-0400 Body height 160.02 cm Lisa Perez MD Work Phone: [facility] 11-01-2024 10:50-0400 Body weight 88.45 kg Lisa Perez MD Work Phone: [facility] 10-10-2024 15:51-0400 Body mass index (BMI) [Ratio] 34.72 kg/m2 Nolvi[address]rown Jimenez [address] IN TELLER Work Phone: [facility] 10-10-2024 15:51-0400 Body temperature 98.49 [degF] Nolvia Mihaiz DRIVE IN TELLER Work Phone: [facility] 10-10-2024 15:51-0400 Body weight 88.[address] IN TELLER Work Phone: [facility] 10-10-2024 15:51-0400 Diastolic blood pressure 88 mm[Hg] Nolvia Aichholz DRIVE IN TELLER Work Phone: [facility] 10-10-2024 15:51-0400 Heart rate 86 /min Nolvia Aichholz DRIVE IN TELLER Work Phone: [facility] 10-10-2024 15:51-0400 Respiratory rate 26 /min Nolvia Sachahholz DRIVE IN TELLER Work Phone: [facility] 10-10-2024 15:51-0400 SaO2% (BldA) [Mass fraction] 95 % Nolvia Koltonholz DRIVE IN TELLER Work Phone: [facility] 10-10-2024 15:51-0400 Systolic blood pressure 120 mm[Hg] Nolvia Aichholz DRIVE IN TELLER Work Phone: [facility] 09-06-2024 15:24-0400 Body mass index (BMI) [Ratio] 35.46 kg/m2 Nolvia Aichholz DR[address] IN TELLER Work Phone: [facility] 09-06-2024 15:24-0400 Body temperature 98.6 [degF] Nolvia Holmz DRIVE IN TELLER Work Phone: [facility] 09-06-2024 15:24-0400 Body weight 90.[address] IN TELLER Work Phone: [facility] 09-06-2024 15:24-0400 Diastolic blood pressure 98 mm[Hg] Nolvia Hiholz DRIVE IN TELLER Work Phone: [facility] 09-06-2024 15:24-0400 Heart rate 98 /min Nolviabrown Hiholz [address] IN TELLER Work Phone: [facility] 09-06-2024 15:24-0400 Respiratory rate 20 /min Nolviab[address] Hiholz [address] IN TELLER Work Phone: [facility] 09-06-2024 15:24-0400 SaO2% (BldA) [Mass fraction] 95 % Nolvia Holmz DRIVE IN TELLER Work Phone: [facility] 09-06-2024 15:24-0400 Systolic blood pressure 128 mm[Hg] Nolvia Holmz DRIVE IN TELLER Work Phone: [facility] 07-25-2024 13:37-0400 Body height 160.02 cm [facility] 07-25-2024 13:37-0400 Body mass index (BMI) [Ratio] 35.1 kg/m2 [facility] 07-25-2024 13:37-0400 Body temperature 97.8 [degF] [facility] 07-25-2024 13:37-0400 Body weight 89.86 kg [facility] 07-25-2024 13:37-0400 Diastolic blood pressure 56 mm[Hg] [facility] 07-25-2024 13:37-0400 Heart rate 93 /min [facility] 07-25-2024 13:37-0400 Respiratory rate 20 /min [facility] 07-25-2024 13:37-0400 SaO2% (BldA) [Mass fraction] 93 % [facility] 07-25-2024 13:37-0400 Systolic blood pressure 108 mm[Hg] [facility] 06-08-2024 14:43-0400 Body mass index (BMI) [Ratio] 35.39 kg/m2 Nolvia Goncalvessravanthi DR[address] IN TELLER Work Phone: [facility] 06-08-2024 14:43-0400 Body temperature 97.81 [degF] Nolvia Goncalvessravanthi DRIVE IN TELLER Work Phone: [facility] 06-08-2024 14:43-0400 Body weight 90.[address] IN TELLER Work Phone: [facility] 06-08-2024 14:43-0400 Diastolic blood pressure 80 mm[Hg] Nolvia Goncalveswadez DRIVE IN TELLER Work Phone: [facility] 06-08-2024 14:43-0400 Heart rate 72 /min Nolvia Goncalveswadez DRIVE IN TELLER Work Phone: [facility] 06-08-2024 14:43-0400 Respiratory rate 19 /min Nolvia Hiradhaz DRIVE IN TELLER Work Phone: [facility] 06-08-2024 14:43-0400 SaO2% (BldA) [Mass fraction] 98 % Nolvia Goncalveswadez DRIVE IN TELLER Work Phone: [facility] 06-08-2024 14:43-0400 Systolic blood pressure 144 mm[Hg] Nolvia Goncalveswadez DRIVE IN TELLER Work Phone: [facility] 04-26-2024 15:02-0500 Body height [address] IN TELLER Work Phone: [facility] 04-26-2024 15:02-0500 Body mass index (BMI) [Ratio] 35.96 kg/m2 Shanda Cheng DRIVE IN TELLER Work Phone: [facility] 04-26-2024 15:02-0500 Body temperature 97.2 [degF] Shanda Cheng DRIVE IN TELLER Work Phone: [facility] 04-26-2024 15:02-0500 Body weight 92.[address] IN TELLER Work Phone: [facility] 04-26-2024 15:02-0500 Diastolic blood pressure 84 mm[Hg] Shanda Cheng DRIVE IN TELLER Work Phone: [facility] 04-26-2024 15:02-0500 Heart rate 72 /min Shanda Cheng DRIVE IN TELLER Work Phone: [facility] 04-26-2024 15:02-0500 Respiratory rate 18 /min Shanda Cheng DR[address] IN TELLER Work Phone: [facility] 04-26-2024 15:02-0500 SaO2% (BldA) [Mass fraction] 94 % Shanda Cheng DRIVE IN TELLER Work Phone: [facility] 04-26-2024 15:02-0500 Systolic blood pressure 180 mm[Hg] Shanda Cheng DRIVE IN TELLER Work Phone: [facility] 04-18-2024 13:58-0500 Body height [address] IN TELLER Work Phone: [facility] 04-18-2024 13:58-0500 Body mass index (BMI) [Ratio] 35.8 kg/m2 Shanda Cheng DRIVE IN TELLER Work Phone: [facility] 04-18-2024 13:58-0500 Body temperature 96.21 [degF] Shanda Cheng DRIVE IN TELLER Work Phone: [facility] 04-18-2024 13:58-0500 Body weight 91.[address] IN TELLER Work Phone: [facility] 04-18-2024 13:58-0500 Diastolic blood pressure 82 mm[Hg] Shanda Cheng DRIVE IN TELLER Work Phone: [facility] 04-18-2024 13:58-0500 Heart rate 96 /min Shanda Cheng DRIVE IN TELLER Work Phone: [facility] 04-18-2024 13:58-0500 Respiratory rate 18 /min Shanda Cheng DRIVE IN TELLER Work Phone: [facility] 04-18-2024 13:58-0500 SaO2% (BldA) [Mass fraction] 97 % Shanda Cheng DRIVE IN TELLER Work Phone: [facility] 04-18-2024 13:58-0500 Systolic blood pressure 138 mm[Hg] Shanda Cheng DRIVE IN TELLER Work Phone: [facility] 01-17-2024 13:25-0400 Body mass index (BMI) [Ratio] 34.76 kg/m2 Shanda Cheng DRIVE IN TELLER Work Phone: [facility] 01-17-2024 13:25-0400 Body temperature 97.81 [degF] Shanda Cheng DRIVE IN TELLER Work Phone: [facility] 01-17-2024 13:25-0400 Body weight [address] IN TELLER Work Phone: [facility] 01-17-2024 13:25-0400 Diastolic blood pressure 72 mm[Hg] Shanda Cheng DRIVE IN TELLER Work Phone: [facility] 01-17-2024 13:25-0400 Heart rate 84 /min Shanda Cheng DRIVE IN TELLER Work Phone: [facility] 01-17-2024 13:25-0400 SaO2% (BldA) [Mass fraction] 98 % Shanda Cheng DRIVE IN TELLER Work Phone: [facility] 01-17-2024 13:25-0400 Systolic blood pressure 130 mm[Hg] Shanda Cheng DRIVE IN TELLER Work Phone: [facility] 12-20-2023 15:00-0400 Diastolic blood pressure 75 mm[Hg] MD Jackelyn Diggs Work Phone: [facility] 12-20-2023 15:00-0400 Systolic blood pressure 136 mm[Hg] MD Jackelyn Diggs Work Phone: [facility] 12-17-2023 14:48-0400 Heart rate 81 /min MD Jackelyn Diggs Work Phone: [facility] 11-16-2023 15:26-0400 Body height 154.94 cm [facility] 11-16-2023 15:26-0400 Body mass index (BMI) [Ratio] 38.4 kg/m2 [facility] 11-16-2023 15:26-0400 Body temperature 96.1 [degF] [facility] 11-16-2023 15:26-0400 Body weight 92.24 kg [facility] 11-16-2023 15:26-0400 Diastolic blood pressure 79 mm[Hg] [facility] 11-16-2023 15:26-0400 Respiratory rate 20 /min [facility] 11-16-2023 15:26-0400 Systolic blood pressure 171 mm[Hg] [facility] 03-09-2023 11:20-0500 Body height 154.94 cm Jackelyn Yinadionne Other [facility] Other 03-09-2023 11:20-0500 Body mass index (BMI) [Ratio] 38.62 kg/m2 Jackelyn Yinadionne Other [facility] Other 03-09-2023 11:20-0500 Body temperature 96.7 [degF] Jackelyn Yinadionne Other [facility] Other 03-09-2023 11:20-0500 Body weight 92.72 kg Jackelyn Yinadionne Other [employer] Other 03-09-2023 11:20-0500 Diastolic blood pressure 60 mm[Hg] Aziz Bakhous Other [employer] Other 03-09-2023 11:20-0500 Respiratory rate 18 /min Aziz Bakhous Other [employer] Other 03-09-2023 11:20-0500 SaO2% (BldA) [Mass fraction] 97 % Aziz Bakhous Other [employer] Other 03-09-2023 11:20-0500 Systolic blood pressure 100 mm[Hg] Aziz Bakhous Other [employer] Other 04-07-2022 15:20-0500 Body height 154.94 cm Aziz Bakhous Other [employer] Other 04-07-2022 15:20-0500 Body mass index (BMI) [Ratio] 39.67 kg/m2 Aziz Bakhous Other [employer] Other 04-07-2022 15:20-0500 Body temperature 97.7 [degF] Aziz Bakhous Other [employer] Other 04-07-2022 15:20-0500 Body weight 95.26 kg Aziz Bakhous Other [employer] Other 04-07-2022 15:20-0500 Diastolic blood pressure 90 mm[Hg] Aziz Bakhous Other [employer] Other 04-07-2022 15:20-0500 Respiratory rate 18 /min Aziz Bakhous Other [employer] Other 04-07-2022 15:20-0500 SaO2% (BldA) [Mass fraction] 97 % Jackelyn Diggs Other [employer] Other 04-07-2022 15:20-0500 Systolic blood pressure 140 mm[Hg] Jackelyn Diggs Other [employer] Other Encounters Encounter Date Encounter Type Care Provider Facility Start: 11-01-2024 End: 11-01-2024 ambulatory Imad Asaad Facility:[facility] Start: 11-01-2024 Non-patient / Non-visit Imad Ana [facility] Work Phone: Start: 10-23-2024 End: 11-03-2024 Clinisync Result Encounter Generic External Data Provider [facility] Unsolicited Start: 10-23-2024 End: 11-03-2024 Clinisync Result Encounter Generic External Data Provider [facility] External [facility] Unsolicited Start: 10-18-2024 End: 10-18-[address] IN TELLER Work Phone: [facility] Comment on above: Bug bite, initial en counter (Primary Dx) Start: 10-12-2024 End: 10-12-2024 Refill Trace Kelly MD Work Phone: [facility] Comment on above: Other hyperlipidemia Start: 10-11-2024 End: 10-11-2024 Orders Only Nolvia Jimenez DR[address] IN TELLER Work Phone: [facility] Comment on above: Other constipation ( Primary Dx); Positive colorectal cancer screening using Cologuard test Start: 10-10-2024 End: 10-10-2024 Office outpatient visit [address] IN TELLER Work Phone: [facility] Comment on above: Essential (primary) hypertension (Primary Dx); Morbid (severe) obesity due to excess calories (CMS-HCC); Other hyperlipidemia ; Type 2 diabetes mellitus without complications (HCC); Emphysema, unspecified (HCC); Chronic obstructive pulmonary disease with acute exacerbation (HCC); Other constipation; Heart failure, unspecified HF chronicity, unspecified heart failure type (HCC) Start: 10-10-2024 End: 10-10-2024 Clinisync Result Encounter Generic External Data Provider [facility] External [facility] Unsolicited Start: 10-10-2024 End: 10-10-2024 Clinisync Result Encounter Generic External Data Provider [facility] External Department Unsolicited Start: 10-10-2024 End: 10-11-[address] IN TELLER Work Phone: [facility] Comment on above: Other constipation ( Primary Dx) Start: 10-03-2024 End: 10-04-2024 Clinisync Result Encounter [...] Unsolicited Start: 09-22-2024 End: 09-22-2024 ambulatory ZACK JUS [facility] Start: 09-06-2024 End: 09-06-2024 Transitional care manage srvc 7 day discharge Nolvia Jimenez [address] IN TELLER Work Phone: [facility] Comment on above: Pneumonia of right l ower lobe due to infectious organism (Primary Dx); Acute hypoxic respiratory failure (CMS/HCC); Coronary artery disease involving [place] coronary artery of [place] heart without angina pectoris (CMS/HCC); Essential (primary) hypertension ; Chronic kidney disease, stage 3b (HCC) (CMS/HCC); Morbid (severe) obesity due to excess calories (CMS/HCC) Start: 09-06-2024 End: 09-06-2024 ambulatory NOLVIA JIMENEZ Not Available Start: 09-04-2024 Evaluation and management of inpatient KIRSTEN MCALLISTER [facility] Start: 09-03-2024 Evaluation and management of inpatient KIRSTEN MCALLISTER [facility] Start: 09-03-2024 End: 09-05-2024 Evaluation and management of inpatient GRISELDA HARVEY [facility] Start: 09-03-2024 End: 09-05-2024 Clinisync Result Encounter Generic External Data Provider [facility] External Department Unsolicited Start: 09-03-2024 End: 09-05-2024 Clinisync Result Encounter Generic External Data Provider [facility] External Department Unsolicited Start: 08-02-2024 End: 08-02-2024 Clinisync Result Encounter Nolvia Jimenez NP Work Phone: [facility] External [facility] Unsolicited Start: 08-02-2024 End: 08-02-2024 Clinisync Result Encounter Nolvia Jimenez DRIVE IN TELLER Work Phone: [facility] External Department Unsolicited Start: 08-01-2024 End: 08-01-2024 ambulatory [facility] Start: 07-27-2024 End: 07-28-2024 External Result Encounter Nolvia Jimenez DRIVE IN TELLER Work Phone: [facility] External Department Unsolicited Start: 07-27-2024 End: 07-28-2024 External Result Encounter Nolvia Jimenez DRIVE IN TELLER Work Phone: [facility] External [facility] Unsolicited Start: 07-26-2024 End: 07-26-2024 Clinisync Result Encounter Nolvia Jimenez DRIVE IN TELLER Work Phone: [facility] External [facility] Unsolicited Start: 07-26-2024 End: 07-26-2024 Clinisync Result Encounter Nolvia Jimenez DRIVE IN TELLER Work Phone: [facility] External [facility] Unsolicited Start: 07-26-2024 End: 07-26-2024 Departed Referred Nolvia Jimenez Work Phone: [facility] Start: 07-26-2024 End: 07-26-2024 Orders Only Nolvia Jimenez DRIVE IN TELLER Work Phone: [facility] Comment on above: Leukocytosis, unspec ified type (Primary Dx) Leukocytosis, unspec ified type (Primary Dx); CRP elevated Start: 07-25-2024 End: 07-25-2024 Clinisync Result Encounter Generic External Data Provider [facility] External [facility] Unsolicited Start: 07-25-2024 End: 07-25-2024 Clinisync Result Encounter Generic External Data Provider [facility] External Department Unsolicited Start: 07-25-2024 End: 07-25-2024 ambulatory [facility] Work Phone: Start: 07-25-2024 End: 07-25-2024 Patient encounter procedure [facility] Physician [facility] Work Phone: Start: 07-17-2024 End: 07-17-2024 Clinisync Result Encounter Generic External Data Provider [facility] External Department Unsolicited Start: 07-17-2024 End: 07-17-2024 Clinisync Result Encounter Generic External Data Provider [facility] External Department Unsolicited Start: 07-17-2024 Non-patient / Non-visit [facility] Physician [facility] Work Phone: Start: 07-03-2024 End: 07-03-2024 ambulatory [facility] Start: 06-26-2024 End: 06-26-2024 Clinisync Result Encounter Generic External Data Provider [facility] External Department Unsolicited Start: 06-26-2024 End: 06-26-2024 Clinisync Result Encounter Generic External Data Provider [facility] External Department Unsolicited Start: 06-15-2024 End: 06-15-2024 ambulatory [facility] Start: 06-08-2024 End: 06-08-2024 Office outpatient visit [address] IN TELLER Work Phone: [facility] Comment on above: Essential (primary) hypertension (CMS/HCC) (Primary Dx); Morbid (severe) obesity due to excess calories (CMS/HCC); Body mass index (BMI) 35.0-35.9, adult; Chronic obstructive pulmonary disease, unspecified (CMS/HCC); Chronic kidney disease, stage 3b (HCC) (CMS/HCC); Coronary artery disease involving [place] coronary artery of [place] heart without angina pectoris (CMS/HCC); Hypomagnesemia; Mixed hyperlipidemia (CMS/HCC); Chronic low back pain, unspecified back pain laterality, unspecified whether sciatica present Start: 06-08-2024 End: 06-08-2024 ambulatory NOLVIA JIMENEZ Not Available Start: 06-08-2024 End: 06-08-2024 Bamboo flowsheet Nolvia Jimenez DRIVE IN TELLER Work Phone: [facility] Start: 06-08-2024 End: 06-08-2024 Bamboo flowsheet Nolvia Jimenez DRIVE IN TELLER Work Phone: [facility] Start: 05-23-2024 End: 05-23-2024 ambulatory [facility] Start: 05-02-2024 Non-patient / Non-visit [facility] Work Phone: Start: 04-26-2024 End: 04-26-2024 Transitional care manage srvc 7 day discharge Shanda Manzanok DRIVE IN TELLER Work Phone: [facility] Comment on above: Essential hypertensi on (CMS/HCC) (Primary Dx) Start: 04-26-2024 End: 04-26-2024 ambulatory SHANDA CHENG Not Available Start: 04-26-2024 End: 04-26-2024 Bamboo flowsheet Shanda Cheng DRIVE IN TELLER Work Phone: [facility] Start: 04-26-2024 End: 04-26-2024 Bamboo flowsheet Shanda Cheng DRIVE IN TELLER Work Phone: [facility] Start: 04-18-2024 End: 04-18-2024 Bamboo flowsheet Shanda Cheng DRIVE IN TELLER Work Phone: [facility] Start: 04-18-2024 End: 04-18-2024 Bamboo flowsheet Shanda Manzanok DRIVE IN TELLER Work Phone: [facility] Start: 04-18-2024 End: 04-18-2024 Office outpatient visit 10 [address] IN TELLER Work Phone: [facility] Comment on above: Irregular heartbeat (Primary Dx) Start: 04-18-2024 End: 04-18-2024 ambulatory SHANDA MANZANOK Not Available Start: 04-03-2024 End: 04-03-[address] IN TELLER Work Phone: [facility] Comment on [...] Start: 01-17-2024 End: 01-17-2024 Bamboo flowsheet Shanda Manzanok DRIVE IN TELLER Work Phone: [facility] Start: 01-17-2024 End: 01-17-2024 Bamboo flowsheet Shanda Manzanok DRIVE IN TELLER Work Phone: [facility] Start: 01-17-2024 End: 01-18-2024 Refill Trace Kelly MD Work Phone: [facility] Comment on above: 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) Start: 01-17-2024 End: 01-17-2024 Assay of hemosiderin, quant Shanda Manzanok DRIVE IN TELLER Work Phone: [facility] Work Phone: Start: 01-17-2024 End: 01-17-2024 Patient encounter procedure Shanda Manzanok DRIVE IN TELLER Work Phone: [facility] Comment on above: Routine general medi korin examination at health care facility (Primary Dx) Start: 01-04-2024 End: 01-04-2024 ambulatory [facility] Start: 12-20-2023 End: 12-20-2023 Discharged Recurring MD Jackelyn Diggs Work Phone: [facility] Work Phone: Start: 12-20-2023 End: 12-20-2023 ambulatory MD Jackelyn Diggs Work Phone: [facility] Work Phone: Start: 11-23-2023 End: 11-23-2023 Clinisync Result Encounter Generic External Data Provider [facility] External Department Unsolicited Start: 11-23-2023 End: 11-23-2023 Clinisync Result Encounter Generic External Data Provider [facility] External Department Unsolicited Start: 11-23-2023 Non-patient / Non-visit MD Rowan Diggs Work Phone: [facility] Physician [facility] Work Phone: Start: 11-16-2023 End: 11-16-2023 ambulatory [facility] Work Phone: Start: 11-16-2023 End: 11-16-2023 Patient encounter procedure [facility] Physician [facility] Work Phone: Start: 11-08-2023 Non-patient / Non-visit [facility] Physician [facility] Work Phone: Start: 03-09-2023 End: 03-09-2023 ambulatory Aziz Bakhous Other [employer] Other Start: 03-09-2023 Office outpatient vi sit 25 minutes Aziz Bakhous [facility] Start: 08-03-2022 End: 08-04-2022 ambulatory AZIZ BAKHOUS Facility:[facility] Start: 07-15-2022 Encounter for other preprocedural examination DR ABBY AZEVEDO [facility] Start: 07-09-2022 End: 07-10-[address] ABBY [...] 04-07-2022 End: 04-07-2022 ambulatory Aziz Bakhous Other [employer] Other Start: 04-07-2022 Office outpatient ne w 30 minutes Aziz Bakhous [facility] Start: 01-23-2022 End: 01-24-2022 ambulatory LUIS SAMSA . Facility:[facility] Start: 01-19-2022 End: 01-20-2022 ambulatory LUIS SAMSA . Facility:[facility] Start: 01-05-2022 End: 01-06-[address] ABRAM CRAFT Facility:[facility] Procedures Date Procedure Procedure Detail Performing Clinician Start: 10-23-2024 ITP Generic Ex ternal Data Provider Start: 10-10-2024 XR CHEST 2V Nolvia Brian bowers DRIVE IN TELLER Work Phone: Start: 10-10-2024 XR ABDOMEN 1V Nolvia luis DRIVE IN TELLER Work Phone: Start: 10-10-2024 ALL BASIC METABOLIC PANEL Generic External Data Provider Start: 10-03-2024 ITP Generic Ex ternal Data Provider Start: 10-03-2024 ALL BASIC METABOLIC PANEL Generic External Data Provider Start: 10-02-2024 ITP Generic Ex ternal Data Provider Start: 09-03-2024 BLOOD CULTURE 2 Generic External Data Provider Start: 09-03-2024 BLOOD CULTURE 1 Generic External Data Provider Start: 08-02-2024 ALL CBC WITH AUTO DIFF Nolvia Aichholz DRIVE IN TELLER Work Phone: Start: 07-27-2024 Culture bacterial quanttative colony count urine Nolvia Aichholz DRIVE IN TELLER Work Phone: Start: 07-26-2024 ALL CBC WITH AUTO DIFF Nolvia Aichholz DRIVE IN TELLER Work Phone: Start: 07-25-2024 ALL CBC WITH [...] Refused) Postponed from 05/25 (Patient Refused) Start: 12-04-2024 Hemoglobin A1c measurement Diabetes: Hemoglobin A1C [facility] Start: 11-27-2024 Influenza vaccination [facility] Start: 11-13-2024 End: 11-13-2024 Patient encounter procedure 11/13/2024 1:40 PM EDT Office Visit [facility] [address] [place] [address] [address] Jimenez, DRIVE IN TELLER [address] [place] [address] [facility] Start: 11-01-2024 [facility] Start: 10-18-2024 End: 10-18-2024 Patient encounter procedure 10/18/2024 2:20 PM EDT Office Visit [facility] [address] [place] [address] Nolvia Jimenez, DRIVE IN TELLER [address] [place] [id number] [facility] Start: 10-10-2024 End: 10-10-2024 Patient encounter procedure 10/10/2024 3:40 PM EDT [facility] [address] [place] [address] Nolvia Jimenez, DRIVE IN TELLER [address] [place] [address] [facility] Start: 09-05-2024 End: 09-05-2024 Patient encounter procedure [facility] Start: 08-03-2024 Influenza vaccination Influenza Vacc ine (#1) [facility] Comment on above: Postponed from 11/27 (Patient Refused) Start: 08-02-2024 End: 07-26-2025 C reactive protein [Mass/volume] in Serum or Plasma C-reactive protein Lab Routine CRP elevated Expected: 08/02/2024 (Approximate), Expires: 07/26/2025 [facility] Comment on above: Expected: 08/02/2024 (Approximate), Expires: 07/26/2025 Start: 08-02-2024 End: 07-26-2025 CBC W Auto Differential panel - Blood CBC and differential Lab Routine Leukocytosis, unspecified type Expected: 08/02/2024 (Approximate), Expires: 07/26/2025 [facility] Work Phone: Comment on above: Expected: 08/02/2024 (Approximate), Expires: 07/26/2025 Start: 07-27-2024 Bacteria identified in Urine by Culture [facility] Start: 07-27-2024 Urine culture [facility] Start: 07-26-2024 End: 07-26-2025 Bacteria identified in Urine by Culture Urine culture (clean catch) Microbiology Routine Leukocytosis, unspecified type Expected: 07/26/2024 (Approximate), Expires: 07/26/2025 [facility] Comment on above: Expected: 07/26/2024 (Approximate), Expires: 07/26/2025 Start: 07-26-2024 End: 07-26-2025 C reactive protein [Mass/volume] in Serum or Plasma C-reactive protein Lab Routine Leukocytosis, unspecified type Expected: 07/26/2024 (Approximate), Expires: 07/26/2025 [facility] Comment on above: Expected: 07/26/2024 (Approximate), Expires: 07/26/2025 Start: 07-26-2024 End: 07-26-2025 CBC W Auto Differential panel - Blood CBC and differential Lab Routine Leukocytosis, unspecified type Expected: 07/26/2024 (Approximate), Expires: 07/26/2025 [facility] Work Phone: Comment on above: Expected: 07/26/2024 (Approximate), Expires: 07/26/2025 Start: 07-26-2024 End: 07-26-2025 Comprehensive metabolic 2000 panel - Serum or Plasma Comprehensive metabolic panel Lab Routine Leukocytosis, unspecified type Expected: 07/26/2024 (Approximate), Expires: 07/26/2025 [facility] Comment on above: Expected: 07/26/2024 (Approximate), Expires: 07/26/2025 Start: 07-26-2024 End: 07-26-2025 Erythrocyte sedimentation rate Sedimentation rate, automated Lab Routine Leukocytosis, unspecified type Expected: 07/26/2024 (Approximate), Expires: 07/26/2025 [facility] Comment on above: Expected: 07/26/2024 (Approximate), Expires: 07/26/2025 Start: 07-26-2024 End: 07-26-2025 Peripheral blood smear Peripheral blood smear Pathology and Cytology Routine Leukocytosis, unspecified type Expected: 07/26/2024 (Approximate), Expires: 07/26/2025 [facility] Comment on above: Expected: 07/26/2024 (Approximate), Expires: 07/26/2025 Start: 07-26-2024 End: 07-26-2025 Urinalysis complete panel - Urine Urinalysis with reflex microscopic (clean catch) Lab Routine Leukocytosis, unspecified type Expected: 07/26/2024 (Approximate), Expires: 07/26/2025 [facility] Comment on above: Expected: 07/26/2024 (Approximate), Expires: 07/26/2025 Start: 06-08-2024 End: 06-08-2024 Patient encounter procedure 06/08/2024 2:40 PM EDT Office Visit [facility] [address] [place] [address] Nolvia Jimenez, [place] [address] [place] [address] Coronary artery disease involving [place] coronary artery of [place] heart without angina pectoris (CMS/HCC) (Primary Dx); Morbid (severe) obesity due to excess calories (CMS/HCC); Essential (primary) hypertension (CMS/HCC); Body mass index (BMI) 35.0-35.9, adult; Chronic obstructive pulmonary disease, unspecified (CMS/HCC); Chronic kidney disease, stage 3b (HCC) (CMS/HCC); Hypomagnesemia; Mixed hyperlipidemia (CMS/HCC) [facility] Comment on above: Coronary artery dise ase involving [place] coronary artery of [place] heart without angina pectoris (CMS/HCC) (Primary Dx); Morbid (severe) obesity due to excess calories (CMS/HCC); Essential (primary) hypertension (CMS/HCC); Body mass index (BMI) 35.0-35.9, adult; Chronic obstructive pulmonary disease, unspecified (CMS/HCC); Chronic kidney disease, stage 3b (HCC) (CMS/HCC); Hypomagnesemia; Mixed hyperlipidemia (CMS/HCC) Start: 06-08-2024 End: 06-08-2024 Patient encounter procedure 06/08/2024 1:30 PM EDT Office Visit [facility] [address] [place] [address] Shanda Cheng, DRIVE IN TELLER [address] [place] [phone] [facility] Start: 04-26-2024 End: 04-26-2024 Patient encounter procedure 04/26/2024 3:30 PM EST Office Visit [facility] [address] [place] [id number] Shanda Cheng, DRIVE IN TELLER [address] [place] [address] [facility] Comment on above: Arrived Start: 04-18-2024 End: 04-18-2024 Patient encounter procedure [facility] Comment on above: Arrived Start: 04-12-2024 Screening for malign ant neoplasm of colon Colorectal Cancer Screening [facility] Comment on above: Postponed from 05/25 (Patient Refused) Start: 03-13-2024 Influenza vaccination Influenza Vacc ine (#1) [facility] Comment on above: Postponed from 11/27 (Patient Refused) Start: 01-17-2024 End: 01-17-2024 Patient encounter procedure 01/17/2024 1:00 PM EDT Office Visit [facility] [address] [place] [id number] Shanda Cheng, DRIVE IN TELLER [address] [place] [phone] [facility] Start: 01-15-2024 Medicare Annual Well ness (AWV) Medicare Annual Wellness (AWV) [facility] Start: 11-28-2023 Influenza vaccination Influenza Vacc ine (#1) [facility] Start: 01-10-2019 Urine screening for protein Diabetes: Urine Protein Screening [facility] Start: 1965 Glaucoma screening Diabetes: R etinopathy Screening [facility] Start: 1959 Pneumococcal Vaccine : 65+ Years (1 of 2 - PCV) Pneumococcal Vaccine: 65+ Years (1 of 2 - PCV) [facility] Start: 1953 Screening for malign ant neoplasm of colon [facility] Start: 1953 Screening for malign ant neoplasm of lung Lung Cancer Screening Shared Decision Making [facility] BLOOD CULTURE 1 BLOOD CULTURE 1 Lab Routine 09/03/2024 4:58 AM EDT [facility] BLOOD CULTURE 2 BLOOD CULTURE 2 Lab Routine 09/03/2024 5:52 AM EDT [facility] Patient Education Colon Strictur e (DC) [facility] Diverticulosis Discharge Instructions [facility] Hemorrhoids Discharge Instructions Know your Meds [facility] Colon Polypectomy Discharge Instructions [facility] Work Phone: Renal function 1999 panel - Serum or Plasma [facility] Renal function 1999 panel - Serum or Plasma [facility] Payers Date Payer Category Payer Medicare ANTHEM MEDICARE ADVANTAGE ANTHEM MEDICARE ADVANTAGE [id number] 2020-Present [id number] 2020 Medicare (Managed Care) [employer] Member Subscriber Plan / Payer (Effective 2020-Present) Name: Chiara Eduardo Relation to Subscriber: Self Name: Chiara Eduardo Payer ID: Not on file Group ID: [id number] Type: Not on file Address: [address] [place] [id number] 1959 Medicare [id number] 1959 Self-pay 1953 Unknown [id number] 2.16.840.1.623030.3.579. 2.593 1953 Unknown [id number] 2.16.840.1.178249.3.579. 2.593 1953 Unknown [id number] 2.16.840.1.266421.3.579. 2.593 1953 Unknown [id number] 2.16.840.1.993911.3.579. 2.593 1953 Unknown [id number] 2.16.840.1.710231.3.579. 2.593 1953 Unknown [id number] 2.16.840.1.056333.3.579. 2.593 1953 Unknown [id number] 2.16.840.1.214820.3.579. 2.593 1953 Unknown [id number] 2.16.840.1.496809.3.579. 2.593 1953 Unknown [id number] 2.16.840.1.301236.3.579. 2.1259 1953 Unknown [id number] 2.16.840.1.303829.3.579. 2.1259 1953 Unknown [id number] 2.16.840.1.728065.3.579. 2.1259 1953 Unknown [id number] 2.16.840.1.036069.3.579. 2.1259 1953 Unknown [id number] 2.16.840.1.176441.3.579. 2.1259 1953 Unknown [id number] 2.16.840.1.480305.3.579. 2.1259 Unknown [id number] 2.16.840.1.952405.3.579. 2.593 Unknown [id number] 2.16.840.1.594006.3.579. 2.531 Unknown [id number] 2.16.840.1.713756.3.579. 2.531 Unknown [id number] 2.16.840.1.265443.3.579. 2.531 Social History Date Type Detail Facility Unknown if ever smoked [facility] Start: 04-12-2023 End: 06-08-2024 Sex Assigned At [facility] Start: 11-16-2023 End: 04-18-2024 Tobacco smoking status GAIS Ex-smoker (finding) [facility] Start: 1955 Sex Assigned At Female [facility] Start: 03-29-1985 End: 03-29-2015 History of tobacco use Current smoker [facility] Start: 03-29-1985 End: 03-29-2015 History of tobacco use Cigarette Smoker [facility] Start: 04-12-2023 End: 06-08-2024 Cigarettes smoked current (pack per day) - Reported 1 [facility] Start: 04-12-2023 End: 04-18-2024 Tobacco use and exposure Smokeless tobacco non-user [facility] Start: 04-12-2023 End: 10-10-2024 Alcoholic beverage intake Lifetime non-drinker (finding) [facility] [...] to any clubs or organizations such as [employer]aritan groups, unions, fraternal or athletic groups, or [...] Start: 07-25-2024 End: 07-28-2024 Sex Female (finding) [facility] Goals Date Patient Goal Desired Activity /State Clinical Notes 04-07-2022 to 10-18-2024 Telephone Encounter - Nolvia Jimenez NP - 10/18/2024 3:05 PM EDTTelephone Encounter - Nolvia Jimenez NP - 10/18/2024 3:05 PM EDT Note Date & Type Note Facility 10-18-2024 Telephone encounter Note Form atting of this note might be different from the original. Came in with her for his appt today, bug bites bilat posterior thigh area near bend of knee, buttock area and lower back. Was working in flower bed and laid on the ground, +itchy and painful Does not look zoster in appearance or infectious No steroids d/t CHF etc Will provide steroid cream if not better contact office [facility] 10-18-2024 Miscellaneous Notes Formattin g of this note might be different from the original. Came in with her for his appt today, bug bites bilat posterior thigh area near bend of knee, buttock area and lower back. Was working in flower bed and laid on the ground, +itchy and painful Does not look zoster in appearance or infectious No steroids d/t CHF etc Will provide steroid cream if not better contact office documented in this encounter [facility] 10-12-2024 Evaluation note Diagnosis Stage 3a chronic kidney disease ([facility]-HCC)- Primary Other hyperlipidemia Coronary artery disease involving [place] coronary artery of [place] heart without angina pectoris Irregular heartbeat- Primary Unspecified cardiac dysrhythmia Essential (primary) hypertension- Primary Unspecified essential hypertension Morbid (severe) obesity due to excess calories ([facility]) Body mass index (BMI) 35.0-35.9, adult Chronic obstructive pulmonary disease, unspecified (HCC) Chronic kidney disease, stage 3b (CMS-HCC) Coronary artery disease involving [place] coronary artery of [place] heart without angina pectoris Hypomagnesemia Disorders of magnesium metabolism Mixed hyperlipidemia Mixed hyperlipidemia Chronic low back pain, unspecified back pain laterality, unspecified whether sciatica present Pneumonia of right lower lobe due to infectious organism- Primary Acute hypoxic respiratory failure (HCC) Coronary artery disease involving [place] coronary artery of [place] heart without angina pectoris Essential (primary) hypertension Unspecified essential hypertension Chronic kidney disease, stage 3b (CMS-HCC) Morbid (severe) obesity due to excess calories (CMS-HCC) Essential (primary) hypertension- Primary Unspecified essential hypertension Morbid (severe) obesity due to excess calories (CMS-HCC) Other hyperlipidemia Type 2 diabetes mellitus without complications (HCC) Emphysema, unspecified (HCC) Chronic obstructive pulmonary disease with acute exacerbation (HCC) Other constipation Heart failure, unspecified HF chronicity, unspecified heart failure type (HCC) Other hyperlipidemia documented in this encounter [id number] Evaluation note* Diagnosis Stage 3a chronic kidney disease (CMS-HCC)- Primary Other hyperlipidemia Coronary artery disease involving [place] coronary artery of [place] heart without angina pectoris Irregular heartbeat- Primary Unspecified cardiac dysrhythmia Essential (primary) hypertension- Primary Unspecified essential hypertension Morbid (severe) obesity due to excess calories (CMS-HCC) Body mass index (BMI) 35.0-35.9, adult Chronic obstructive pulmonary disease, unspecified (HCC) Chronic kidney disease, stage 3b (CMS-HCC) Coronary artery disease involving [place] coronary artery of [place] heart without angina pectoris Hypomagnesemia Disorders of magnesium metabolism Mixed hyperlipidemia Mixed hyperlipidemia Chronic low back pain, unspecified back pain laterality, unspecified whether sciatica present Pneumonia of right lower lobe due to infectious organism- Primary Acute hypoxic respiratory failure (HCC) Coronary artery disease involving [place] coronary artery of [place] heart without angina pectoris Essential (primary) hypertension Unspecified essential hypertension Chronic kidney disease, stage 3b (CMS-HCC) Morbid (severe) obesity due to excess calories (CMS-HCC) Essential (primary) hypertension- Primary Unspecified essential hypertension Morbid (severe) obesity due to excess calories (CMS-HCC) Other hyperlipidemia Type 2 diabetes mellitus without complications (HCC) Emphysema, unspecified (HCC) Chronic obstructive pulmonary disease with acute exacerbation (HCC) Other constipation Heart failure, unspecified HF chronicity, unspecified heart failure type (HCC) Other constipation- Primary documented in this encounter [place] [id number] Evaluation note* Diagnosis Stage 3a chronic kidney disease ([facility]-HCC)- Primary Other hyperlipidemia Coronary artery disease involving [place] coronary artery of [place] heart without angina pectoris Irregular heartbeat- Primary Unspecified cardiac dysrhythmia Essential (primary) hypertension- Primary Unspecified essential hypertension Morbid (severe) obesity due to excess calories (CMS-HCC) Body mass index (BMI) 35.0-35.9, adult Chronic obstructive pulmonary disease, unspecified (HCC) Chronic kidney disease, stage 3b ([facility]) Coronary artery disease involving [place] coronary artery of [place] heart without angina pectoris Hypomagnesemia Disorders of magnesium metabolism Mixed hyperlipidemia Mixed hyperlipidemia Chronic low back pain, unspecified back pain laterality, unspecified whether sciatica present Pneumonia of right lower lobe due to infectious organism- Primary Acute hypoxic respiratory failure (HCC) Coronary artery disease involving [place] coronary artery of [place] heart without angina pectoris Essential (primary) hypertension Unspecified essential hypertension Chronic kidney disease, stage 3b (CMS-HCC) Morbid (severe) obesity due to excess calories (CMS-HCC) Essential (primary) hypertension- Primary Unspecified essential hypertension Morbid (severe) obesity due to excess calories (CMS-HCC) Other hyperlipidemia Type 2 diabetes mellitus without complications (HCC) Emphysema, unspecified (HCC) Chronic obstructive pulmonary disease with acute exacerbation (HCC) Other constipation Heart failure, unspecified HF chronicity, unspecified heart failure type (HCC) Other constipation- Primary Positive colorectal cancer screening using Cologuard test documented in this encounter [id number] History of Present illness Narrative* Nolvia Jimenez NP - 10/10/2024 5:43 PM EDTAssociated Problem(s): Heart failure (HCC) I did contact [facility] cardiology office updated on vital signs, weight and exam They will message textiles sales representative to see about diuretic Check cxr * Nolvia Jimenez NP - 10/10/2024 5:40 PM EDTAssociated Problem(s): Other constipation Miralax not helping Will order abd xray * Nolvia Jimenez NP - 10/10/2024 5:40 PM EDTAssociated Problem(s): Essential (primary) hypertension Please check blood pressure daily and record DASH diet Limit caffeine Take medication as directed Contact office if chest pain, pressure, dizziness, shortness of breath, swelling legs Recommend slow position changes Current meds: arb, b shyam, nitrate * Nolvia Jimenez NP - 10/10/2024 5:39 PM EDTAssociated Problem(s): Chronic obstructive pulmonary disease, unspecified (HCC) Current meds: albuterol, trelegy, Under the care of pulmonology Ced I do not think her current dypsnea is COPD Will check xray * DE CARDOSO - 10/10/2024 3:40 PM EDT Pt has been having nausea and vomiting for 1.5 wks Pt has been having issues with bowel movements Pt is very sob and can not catch her breath * Nolvia Jimenez NP - 10/10/2024 3:40 PM EDT Images from the original note were not included. Chiara Eduardo is a 69 y.o. female presents with chief complaint of Vomiting HPI: Pt has been having nausea and vomiting for 1.5 wks Pt has been having issues with bowel movements Pt is very sob and can not catch her breath Cardiology took her off her aldactone last week d/t renal function, she noticed increase dyspnea since then.no fever. Mucus white thick (normal baseline), edema pedal, no chest pain. Always with baseline constipation, but much worse right now. Using miralax, not a lot of results of formed stool, but has had some diarreha, no bloody stool/urine/emesis Less nausea today. SUBJECTIVE: MEDICATIONS: Current Outpatient Medications Medication Instructions albuterol HFA 90 mcg/act inhaler 2 puffs, Every 4 hours PRN aspirin (ADULT ASPIRIN REGIMEN) 81 mg, Daily atorvastatin (LIPITOR) 80 mg, Oral, Nightly cholecalciferol (VITAMIN D-3) 25 mcg, Oral, Daily [...] before breakfast predniSONE (Deltasone) 10 MG tablet spironolactone (ALDACTONE) 25 mg, Oral, Every morning Trelegy Ellipta 100-62.5-25 MCG/ACT aerosol powder 1 puff, Every 24 hours ALLERGIES: Allergies Allergen Reactions Hydrochlorothiazide Penicillins Plavix [Clopidogrel] Sodium Chloride Sulfacetamide Vancomycin Hcl [Vancomycin] REVIEW OF SYMPTOMS: Review of Systems Constitutional: Negative for appetite change, chills and fever. HENT: Negative for congestion, ear pain and sore throat. Eyes: Negative for pain, discharge, redness and visual disturbance. Respiratory: Positive for cough and shortness of breath. Negative for wheezing. Cardiovascular: Positive for leg swelling. Negative for chest pain and palpitations. Gastrointestinal: Positive for constipation, nausea and vomiting. Negative for abdominal pain, blood in stool and diarrhea. Genitourinary: Negative for difficulty urinating, dysuria and frequency. Musculoskeletal: Negative for arthralgias, back pain, joint swelling and myalgias. Skin: Negative for rash and wound. Neurological: Negative for dizziness, tremors, seizures, syncope and headaches. Psychiatric/Behavioral: Negative for behavioral problems, self-injury and suicidal ideas. The patient is nervous/anxious. Hematological: Does not bruise/bleed easily. Endocrine: [...] in her mother. OBJECTIVE: Visit Vitals BP 120/88 (BP Location: Left arm, Patient Position: Sitting, BP Cuff Size: Adult long) Pulse 86 Temp 98.5 F Resp 26 Wt 196 lb SpO2 95% BMI 34.72 kg/m Smoking Status Former BSA 1.99 m Physical Exam Vitals and nursing note reviewed. Constitutional: General: She is not in acute distress. Appearance: Normal appearance. HENT: Head: Normocephalic and atraumatic. Right Ear: External ear normal. Left Ear: External ear normal. Nose: Nose normal. Mouth/Throat: Mouth: Mucous membranes are moist. Eyes: Extraocular Movements: Extraocular movements intact. Conjunctiva/sclera: Conjunctivae normal. Neck: Vascular: No carotid bruit. Comments: No JVD Cardiovascular: Rate and Rhythm: Normal rate and regular rhythm. Pulses: Normal pulses. Heart sounds: Normal heart sounds. No murmur heard. Pulmonary: Breath sounds: Normal breath sounds. No wheezing or rhonchi. Comments: tachy Abdominal: General: Bowel sounds are normal. There is no distension. Palpations: Abdomen is soft. There is no mass. Tenderness: There is no abdominal tenderness. Musculoskeletal: General: Normal range of motion. Cervical back: Normal range of motion and neck supple. Right lower leg: Edema present. Left lower leg: Edema present. Comments: pedal Lymphadenopathy: Cervical: No cervical adenopathy. Skin: General: Skin is warm and dry. Capillary Refill: Capillary refill takes 2 to 3 seconds. Findings: No rash. Neurological: General: No focal deficit present. Mental Status: She is alert and oriented to person, place, and time. Psychiatric: Mood and Affect: Mood normal. Behavior: Behavior normal. Thought Content: Thought content normal. Judgment: Judgment normal. ASSESSMENT AND PLAN: Follow up in about 4 weeks (around 11/07/2024) for Recheck. Problem List Items Addressed This Visit Chronic obstructive pulmonary disease, unspecified (HCC) Current meds: albuterol, trelegy, Under the care of pulmonology Ced I do not think her current dypsnea is COPD Will check xray Morbid (severe) obesity due to excess calories (CMS-HCC) - Primary Discussed with patient their BMI (actual, verses [...] changes Current meds: arb, b shyam, nitrate Other hyperlipidemia Relevant Medications atorvastatin (Lipitor) 80 MG tablet Type 2 diabetes mellitus without complications (HCC) HTN, HLD Other constipation Miralax not helping Will order abd xray Heart failure (HCC) I did contact [facility] cardiology office updated on vital signs, weight and exam They will message textiles sales representative to see about diuretic Check cxr Other Visit Diagnoses Emphysema, unspecified (HCC) * Nolvia Jimenez NP - 10/10/2024 6:53 AM EDTAssociated Problem(s): Type 2 diabetes mellitus without complications (HCC) HTN, HLD * Nolvia Jimenez NP - 10/10/2024 6:49 AM EDTAssociated Problem(s): Morbid (severe) obesity due to excess calories ([facility]) Discussed with patient their BMI (actual, verses recommended). We have also discussed lifestyle modifications: attempts to perform physical activity as chronic conditions allow, also to monitor dietary intake: increasing protein/fruits/veggies and lowering carb intake (unless contraindicated). Limit sodas, juices, and sugary drinks. [id number] Instructions* Patient Instructions* Nolvia Jimenez NP - 10/10/2024 3:40 PM EDT Check xray: abd, and chest xray I will call [facility] Cardiology about shortness of breath, possibly do something different with water pills If worsening go to [facility] [id number] Evaluation note* Diagnosis Stage 3a chronic kidney disease ([facility]-HCC)- Primary Other hyperlipidemia Coronary artery disease involving [place] coronary artery of [place] heart without angina pectoris Irregular heartbeat- Primary Unspecified cardiac dysrhythmia Essential (primary) hypertension- Primary Unspecified essential hypertension Morbid (severe) obesity due to excess calories (CMS-HCC) Body mass index (BMI) 35.0-35.9, adult Chronic obstructive pulmonary disease, unspecified (HCC) Chronic kidney disease, stage 3b (CMS-HCC) Coronary artery disease involving [place] coronary artery of [place] heart without angina pectoris Hypomagnesemia Disorders of magnesium metabolism Mixed hyperlipidemia Mixed hyperlipidemia Chronic low back pain, unspecified back pain laterality, unspecified whether sciatica present Pneumonia of right lower lobe due to infectious organism- Primary Acute hypoxic respiratory failure (HCC) Coronary artery disease involving [place] coronary artery of [place] heart without angina pectoris Essential (primary) hypertension Unspecified essential hypertension Chronic kidney disease, stage 3b (CMS-HCC) Morbid (severe) obesity due to excess calories (CMS-HCC) Essential (primary) hypertension- Primary Unspecified essential hypertension Morbid (severe) obesity due to excess calories (CMS-HCC) Other hyperlipidemia Type 2 diabetes mellitus without complications (HCC) Emphysema, unspecified (HCC) Chronic obstructive pulmonary disease with acute exacerbation (HCC) Other constipation Heart failure, unspecified HF chronicity, unspecified heart failure type ([facility]) [facility] encounter [id number] NoteSUBJECTIVE Reason for Visit: Chiara Eduardo is a 69 y.o. year old female patient being seen for follow-up hospital visit, NSTEMI. HPI: Chiara Eduardo is a 69 y.o. year old female with significant medical history coronary artery disease, prior stent placement, COPD, History of acute inferior wall NE, HT, HLP, CKD, obesity Recent hospital course [...] felt to be related to type II NE. Of note patient had cardiac cath in [...] Daily atorvastatin (LIPITOR) 80 mg, oral, Daily qsodphtlhz-jgunfwtf-wykgpuunlq (Breztri Aerosphere) 160-9-4.8 mcg/actuation HFA aerosol inhaler [...] Rate 09/03/2024 90 Atrial Rate 09/03/2024 90 MD Interval 09/03/2024 (more content not included)...[facility] NotePatient is here today for a follow up. Patient states she is doing ok. Review of Systems Constitutional: Negative.[facility]06-11-2025 History of Present illness Narrative* Nolvia Jimenez NP - 09/06/2024 6:44 PM EDT Associated Problem(s): Morbid (severe) obesity due to excess calories (CMS/HCC) Discussed with patient their BMI (actual, verses recommended). We have also discussed lifestyle modifications: attempts to perform physical activity as chronic conditions allow, also to monitor dietary intake: increasing protein/fruits/veggies and lowering carb intake (unless contraindicated). Limit sodas, juices, and sugary drinks. * Nolvia Jimenez NP - 09/06/2024 6:44 PM EDTAssociated Problem(s): Chronic kidney disease, stage 3b (HCC) (CMS/HCC) Goal to keep blood pressure well control Avoid nephrotoxic drugs if possible Continue w nephrology * Nolvia Jimenez NP - 09/06/2024 6:43 PM EDTAssociated Problem(s): Essential (primary) hypertension Please check blood pressure daily and record DASH diet Limit caffeine Take medication as directed Contact office if chest pain, pressure, dizziness, shortness of breath, swelling legs Recommend slow position changes Current meds: arb, b shyam, nitrate * Nolvia Jimenez NP - 09/06/2024 6:43 PM EDTAssociated Problem(s): Coronary artery disease involving [place] coronary artery of [place] heart without angina pectoris (CMS/HCC) Reviewed cardiology notes from [facility] Did not feel elevated trop was related to NE * Nolvia Jimenez NP - 09/06/2024 6:43 PM EDTAssociated Problem(s): Pneumonia Finish atbs, cont fluids, oxygen Keep appt with pulmonology next week * Nolvia Jimenez NP - 09/06/2024 6:42 PM EDTAssociated Problem(s): Acute hypoxic respiratory failure (CMS/HCC) On oxygen at this time Breathing is better Fu w pulmonology next week * DE CARDOSO - 09/06/2024 3:00 PM EDT Currently on 3L Pt has a street roller engineer appt on 09/12 Blending Tank Tender Helper apt 09/22 3:[address] appt 09/19 Pt is still currently on the zithromax Lasix has been increase to daily pt is still having swelling to both feet Please note that pt prefers the metoprolol tartrate instead Pt is also on triple action womens probiotic Psylium fiber caps * Nolvia Jimenez, DRIVE IN TELLER - 09/06/2024 3:00 PM EDT Images from the original note were not included. Chiara Eduardo is a 69 y.o. 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 a street roller engineer appt on 09/12 Blending Tank Tender Helper apt 09/22 3:[address] appt 09/19 [...] Oral, Daily azithromycin (ZITHROMAX) 500 mg, Daily Pvjdmnc-Lfspzplurdu-Etdhechjta (Breztri Aerosphere) 160-9-4.8 MCG/ACT aerosol 160 mcg, [...] Addressed This Visit Coronary artery disease involving [place] coronary artery of [place] heart without angina pectoris (CMS/HCC) (Chronic) Reviewed cardiology notes from [facility] Did not feel elevated trop was related to NE Morbid (severe) obesity due to excess calories [...] with pulmonology next week documented in this [facility]06-11-2025 Instructions* Patient Instructions* Nolvia Jimenez NP - 09/06/2024 3:00 PM EDT No med dose changes Purse lipped breathing as well documented in this [facility]06-11-2025 Evaluation note* Diagnosis Stage 3a chronic kidney disease (HCC) (CMS/HCC)- Primary Other hyperlipidemia Coronary artery disease involving [place] coronary artery of [place] heart without angina pectoris ([facility]/HCC) Irregular heartbeat- Primary Unspecified cardiac dysrhythmia Essential (primary) hypertension- Primary Unspecified essential hypertension Morbid (severe) obesity due to excess calories (CMS/HCC) Body mass index (BMI) 35.0-35.9, adult Chronic obstructive pulmonary disease, unspecified Chronic kidney disease, stage 3b (HCC) (CMS/HCC) Coronary artery disease involving [place] coronary artery of [place] heart without angina pectoris (CMS/HCC) Hypomagnesemia Disorders of magnesium metabolism Mixed hyperlipidemia Mixed hyperlipidemia Chronic low back pain, unspecified back pain laterality, unspecified whether sciatica present Pneumonia of right lower lobe due to infectious organism- Primary Acute hypoxic respiratory failure (CMS/HCC) Coronary artery disease involving [place] coronary artery of [place] heart without angina pectoris (CMS/HCC) Essential (primary) hypertension Unspecified essential hypertension Chronic kidney disease, stage 3b (HCC) ([facility]) Morbid (severe) obesity due to excess calories ([facility]) documented [facility] this encounter [facility] [id number] NoteHospital Medicine Discharge Summary Final Discharge Diagnosis: 1. Acute hypoxemic respiratory failure secondary to COPD exacerbation as well as right lower lobe pneumonia 2. Drop in EF to 44% compared to stress test in 2022 reported normal ejection fraction 3. Elevated troponins likely type II NE Admission Diagnosis: NSTEMI (non-ST elevated myocardial infarction) ([facility]) [I21.4] Hospital course: Chiara Eduardo is a 69 y.o. female with a history of coronary artery disease, prior stent placement, COPD, History of acute inferior wall NE, HT, HLP, CKD, obesity presented with shortness [...] felt to be related to type II NE. Of note patient had cardiac cath in [...] Center 09/22/2024 3:20 PM Zack Luu CNP [facility] Your medication list START [...] 160-9-4.8 mcg/actuation HFA aerosol inhaler Generic drug: nqkjpboijt-ekaenflm-wmcsbdutxo cholecalciferol 50 MCG (2000 UT) tablet Commonly [...] Medications These medications were sent to [facility] - [place], [place] - [address] [place] [address] [place] [address], [facility] [address] azithromycin 500 mg tablet cefpodoxime 200 mg [...] Chief Complaint Patient is direct admitted from [facility] with shortness of breath. History of Present Illness Chiara Eduardo is an 69 y.o. female who came from home with shortness of breath. Patient has history of COPD, quit smoking 2016, on Lasix 20 mg every other day, started having worsening shortness of breath, and acute on chronic abdominal pain last night, she presented to [facility], found to have right lower lobe pneumonia, with increasing troponin to 78.9, lactic of 3.2, patient was started on heparin drip, antibiotics, and was sent to [facility] for further workup. At time of arrival around 5 PM, patient was lying in bed, on nonrebreather, satting 100%, complaining of mild lower abdominal pain, no chest pain, cough, palpitation, or any other related symptoms. PT Diagnosis: weakness, impaiired functional mobility. Patient Active Problem List Diagnosis Bladder prolapse, female, acquired Chronic GERD COPD (chronic obstructive pulmonary disease) ([facility]/HCC) Coronary artery disease involving [place] coronary artery of [place] heart without angina pectoris Diuretic-induced hypokalemia Essential hypertension Former smoker Health care maintenance History of acute inferior wall NE Lower back pain Mixed hyperlipidemia Severe obesity (BMI 35.0-39.9) with comorbidity ([facility]) Shortness of breath Chest pain Arrhythmia Anemia Hypomagnesemia Hyponatremia Non-sustained ventricular tachycardia ([facility]) History of tobacco use 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 PVC (premature ventricular contraction) Multiple pulmonary nodules Irregular heartbeat Stage 3a chronic kidney disease ([facility]) Body mass index (BMI) 35.0-35.9, adult Angina pectoris, unstable ([facility]) CRP elevated Elevated WBC count NSTEMI (non-ST elevated myocardial infarction) ([facility]) Pneumonia Acute hypoxic respiratory failure ([facility]) Elevated troponin Past Medical History: Diagnosis Date Abnormal ECG Chronic GERD 12/28/2016 Chronic kidney disease COPD (chronic obstructive pulmonary disease) ([facility]) Coronary artery disease Coronary artery disease involving [place] coronary artery of [place] heart without angina pectoris 12/28/2016 Essential hypertension [...] Level of Function Prior Function Level of Harmon: Independent with ADLs and functional transfers Prior [...] it is.) Does the patient have a family service caseworker assigned to them through their insurance? No Living Arrangement (Current/Prior to Hospitalization) Private residence Does the patient have history of HHC or SNF? Yes (Is active with a HHC service called [facility] this is through insurance [place] for renal care.) Assistive Device Cane;Other [...] you able to send link and activate Neumit[employer]? [email or web address] already active [facility]06-09-2025 NoteSpiritual Care Note Patient name: Chiara Eduardo Age: 69 y.o. Room: [facility]312- 09/04/24 1710 Clinical Encounter Type Visited With Patient Type of Visit Advance Directives Last Visit Date 09/04/24 Referral From Nurse Patient Spiritual Care Encounters Spiritual Care Assessment Hopeful;Coping with diagnoses (Pt seemed to be coping with situation. Pt completed ADV DIR's naming as agent and three daughters as alternates.) Pastoral Intervention Advance directives;Emotional support;Spiritual support (Electrical Construction Project Manager assisted pt with completing ADV DIR. Copies made, original & copies returned to pt, copy placed in pt chart.) Response AppreciativeUnSelect [facility] [place]06-[facility] Note Occupational Therapy Occupational Therapy Evaluation Patient [...] pulmonary disease) (CMS/HCC) Coronary artery disease involving [place] coronary artery of [place] heart without angina pectoris Diuretic-induced hypokalemia Essential hypertension Former smoker Health care maintenance History of acute inferior wall NE Lower back pain Mixed hyperlipidemia Severe obesity (BMI 35.0-39.9) with comorbidity (CMS/HCC) Shortness of breath Chest pain Arrhythmia Anemia Hypomagnesemia Hyponatremia Non-sustained ventricular tachycardia (CMS/HCC) History of tobacco use 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 PVC (premature ventricular contraction) [...] kidney disease COPD (chronic obstructive pulmonary disease) ([facility]) Coronary artery disease Coronary artery disease involving [place] coronary artery of [place] heart without angina pectoris 12/28/2016 Essential hypertension [...] With: Spouse Home Adaptive Equipment: Cane, Rollator (wi, [facility]) Home Layout: Multi-level, Bed/bath upstairs (tri level , bed and bath up 4 steps with rail) Home Access: Stairs to enter with rails (4) Bathroom Shower/Tub: Tub/shower unit Prior Level of Function Prior Function Level of Harmon: Independent with ADLs and functional transfers, Independent [...] Eating meals?: None (Independent) Total Score OT [facility]: 21 Assessment/Plan OT Assessment OT Impairments: Decreased ADL status, Decreased endurance, Decreased functional mobility OT Assessment/LANDFILL GAS TECHNICIAN Summary: (needs skilled OT due to weakness [...] content not included)...[facility]06-09-2025 NoteLikely type II NE, supply/demand mismatch EKG shows sinus rhythm with PVCs Echo pendingUnSelect Medical [facility] [place]06-09-2025 NoteSecondary to right lower lobe pneumonia likely component of CHF Echocardiogram pending Continue current antibiotics with Rocephin and Zithromax Lasix switched to 40 mg daily instead of every other day 20 mg Continue DuoNeb as needed Sputum culture has few gram-positive cocci in pairs Influenza A/B negative as well as COVID-19. Mycoplasma PCRUnSelect Medical [facility], [place]06-09-2025 NotePatient at home on oral prednisone 10 mg daily Continue Dulera and Incruse Ellipta DuoNeb as neededUnSelect Medical [facility] [place]06-09-2025 NoteHospital Medicine Daily Progress Note - 09/04/2024 12:26 PM; Room: [address] [place] [address] Admission: 09/03/2024 4:20 PM; Length of stay: 1 days THE HOSPITALIST TEAM PREFERS TO USE [employer] FOR NON-URGENT COMMUNICATION 7AM-7PM. IF I DO NOT RESPOND WITHIN 20 MINUTES OR URGENT MATTERS, PLEASE CALL THROUGH THE PRESSURE TESTER. FROM 7PM-7AM, PLEASE PAGE [phone](COVR). Code Status: Full Code Barriers to Discharge: [...] Mycoplasma PCR Elevated troponin Likely type II NE, supply/demand mismatch EKG shows sinus rhythm with [...] Results from last 7 days Lab Units 09/04/244 09/03/24 1709 HCO3 ART mEq/L 23.7 -- [...] No significant change was found Confirmed by Heriberto Estevez ([id number]) on 09/03/2024 6:41:10 PM ECG 12 lead Sinus rhythm with frequent Premature ventricular complexes Low voltage QRS Borderline ECG When compared with ECG of 03-JUL-2024 07:56, Premature ventricular complexes are now Present Confirmed by Heriberto Estevez ([id number]) on 09/03/2024 5:33:18 PM XR [...] Expected Discharge Disposition: Home or Self Care (01) (pending PT/OT evals) Signed Rhea Manning MD [facility] Medicine 09/04/2024 12:26 PMUnSelect Medical [facility] [place]06-09-2025 Note- Patient was requiring nonrebreather upon arrival to [facility] - has been switched to high flow nasal cannula - Patient was on Lasix 20 mg every other day - switching to 40 mg daily, monitor I's and O's and daily weight - Continue with DuoNeb as needed No associated orders from this encounter found during lookback period of 72 hours.[facility]06-09-2025 Note- Patient was requiring nonrebreather upon arrival to [facility] - has been switched to high flow nasal cannula -Chest x-ray at [facility] showed right lower lobe pneumonia - 09/04/2024 x-ray done at [facility] was consistent with the previously mentioned findings [...] Admission Dx: NSTEMI (non-ST elevated myocardial infarction) ([facility]) [I21.4] Reason for assessment: high risk PO and COPD Information obtained from: patient and medical record Past Medical History: Diagnosis Date Abnormal ECG Chronic GERD 12/28/2016 Chronic kidney disease COPD (chronic obstructive pulmonary disease) ([facility]) Coronary artery disease Coronary artery disease involving [place] coronary artery of [place] heart without angina pectoris 12/28/2016 Essential hypertension [...] (L) 09/04/2024 0417 HGBA1C 6.6 (H) 09/03/2024 170 HGB 10.4 (L) 09/04/2024 0417 WBC 19.91 (H) 09/04/2024 0417 CHOL 125 09/03/2024 1709 HDL 70 09/03/2024 170 Allergies: Allergies Allergen Reactions Clopidogrel Hydrochlorothiazide Exfoliative [...] kg (201 lb) 04/18/24 91.7 kg Family [facility] 01/04/24 92.1 kg (203 lb) 10/12/23 91.2 [...] day. Breakfast will be things like bagels, amharic muffins, eggs, sausage, cote, hash browns, or [...] of Nutrition and Dietetics ([place]) and the [place] Society of Enteral and Parenteral Nutrition (ASPEN). [...] To reach the Clinical Dietitian, please utilize [employer] chat (more content not included)...[facility]06-09-2025 NoteSubjective Chiara Eduardo is a 69 year old female who reported shortness of breath yesterday. She has a PMH including COPD, HTN, HLD, and chronic GERD. She quit smoking in 2017. She presented to [facility] last night with shortness of breath and acute on chronic abdominal pain. X-ray showed right lower lobe pneumonia with increased troponin of 78.9 and lactic acid of 3.2. She was started on heparin drip, given antibiotics and sent to [facility] for further follow-up. Upon arrival to [facility], she reported mild lower abdominal pain and denied any ramón pain, cough, palpitation or any other related symptoms. Initial EKG showed sinus rhythm with frequent premature ventricular complexes and low voltage QRS. Follow-up x-ray at [facility] was consistent with the previous findings of [...] -- -- 100 % -- -- 09/03/24 221 113/84 -- -- 88 -- -- -- [...] Value Ventricular Rate 93 Atrial Rate 93 MD Interval 138 QRS DURATION 76 QT Interval 354 QTC CALCULATION(BAZETT) 440 P [place] 69 R-[place] 35 T Wave [place] 45 Impression Sinus rhythm with frequent Premature ventricular complexes Low voltage QRS Borderline ECG When compared with ECG of 03-SEP-2024 16:56, No significant change was found Confirmed by Heriberto Estevez ([id number]) on 09/03/2024 6:41:10 PM Nutrition [...] PM THE HOSPITALIST TEAM PREFERS TO USE [employer] CHAT FOR COMMUNICATION 7AM-7PM. IF I DO NOT RESPOND WITHIN 15 MINUTES, PLEASE PAGE ME/CALL THROUGH THE PRESSURE TESTER. FROM 7PM-7AM, PLEASE PAGE [phone](COVR) Chief Complaint Patient is direct admitted from [facility] with shortness of breath. History of Present Illness Chiara Eduardo is an 69 y.o. female who came from home with shortness of breath. Patient has history of COPD, quit smoking 2017, on Lasix 20 mg every other day, started having worsening shortness of breath, and acute on chronic abdominal pain last night, she presented to [place], found to have right lower lobe pneumonia, with increasing troponin to 78.9, lactic of 3.2, patient was started on heparin drip, antibiotics, and was sent to [facility] for further workup. At time of arrival [...] List Diagnosis Date Noted Non-sustained ventricular tachycardia ([facility]) 11/17/2022 NSTEMI (non-ST elevated myocardial infarction) ([facility]) 09/03/2024 Pneumonia 09/03/2024 Acute hypoxic respiratory failure ([facility]) 09/03/2024 CRP elevated 07/26/2024 Elevated WBC count 07/26/2024 Body mass index (BMI) 35.0-35.9, adult 06/08/2024 Irregular heartbeat 04/18/2024 Stage 3a chronic kidney disease ([facility]) 04/12/2023 Multiple pulmonary nodules 03/02/2023 PVC (premature ventricular contraction) 12/31/2022 History of tobacco use 12/28/2022 Other long-term (current) 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 12/28/2022 Anemia 10/27/2022 Hypomagnesemia 10/27/2022 Hyponatremia 10/27/2022 Arrhythmia 10/26/2022 Former smoker 01/22/2020 Health care maintenance 01/22/2020 Diuretic-induced hypokalemia 01/16/2018 History of acute inferior wall NE 01/13/2018 Bladder prolapse, female, acquired 12/28/2016 Chronic GERD 12/28/2016 COPD (chronic obstructive pulmonary disease) ([facility]) 12/28/2016 Coronary artery disease involving [place] coronary artery of [place] heart without angina pectoris 12/28/2016 Lower back pain 12/28/2016 Severe obesity (BMI 35.0-39.9) with comorbidity ([facility]) 12/28/2016 Shortness of breath 12/28/2016 Essential hypertension 12/14/2016 Mixed hyperlipidemia 12/14/2016 Angina pectoris, unstable ([facility]) 06/15/2024 Chest pain 07/08/2022 Assessment and Plan # Acute hypoxic respiratory failure # Pneumonia - Patient requiring nonrebreather upon arrival to [facility], will get ABG, switch to high flow nasal cannula - Due to to pneumonia, there is also component of heart failure -Chest x-ray at [facility] showed right lower lobe pneumonia, unfortunately [...] was 8.5 then up to 78.9 at [facility], with no acute ST changes. - Keep the patient heparin drip, consult cardiology. -Keep trending troponin. -She is following up with Dr. Azevedo as outpatient # COPD - Currently on [...] this hospital stay by a member of [facility] Medicine. Past Medical History Past Medical History: Diagnosis Date Abnormal ECG (more content not included)...[facility]05-06-2025 Note [facility] Cardiology Clinic Note Chief Complaint: Patient here [...] has noticed worsening shortness of breath. Her street roller engineer adjusted her inhalers but this does not [...] kidney disease, COPD (chronic obstructive pulmonary disease) ([facility]), Coronary artery disease, Coronary artery disease involving [place] coronary artery of [place] heart without angina pectoris (12/28/2016), Essential hypertension [...] Primary Other hyperlipidemia Coronary artery disease involving [place] coronary artery of [place] heart without angina pectoris (CMS/HCC) Irregular heartbeat- Primary Unspecified cardiac dysrhythmia Essential (primary) hypertension (CMS/HCC)- Primary Unspecified essential hypertension Morbid (severe) obesity due to excess calories (CMS/HCC) Body mass index (BMI) 35.0-35.9, adult Chronic obstructive pulmonary disease, unspecified Chronic kidney disease, stage 3b (HCC) (CMS/HCC) Coronary artery disease involving [place] coronary artery of [place] heart without angina pectoris (CMS/HCC) Hypomagnesemia Disorders of magnesium metabolism Mixed hyperlipidemia (CMS/HCC) Mixed hyperlipidemia Chronic low back pain, unspecified back pain laterality, unspecified whether sciatica present Leukocytosis, unspecified type- Primary documented [facility] this encounter [facility] [id number] Evaluation note* Diagnosis Stage 3a chronic kidney disease (HCC) (CMS/HCC)- Primary Other hyperlipidemia Coronary artery disease involving [place] coronary artery of [place] heart without angina pectoris (CMS/HCC) Irregular heartbeat- Primary Unspecified cardiac dysrhythmia Essential (primary) hypertension (CMS/HCC)- Primary Unspecified essential hypertension Morbid (severe) obesity due to excess calories (CMS/HCC) Body mass index (BMI) 35.0-35.9, adult Chronic obstructive pulmonary disease, unspecified Chronic kidney disease, stage 3b (HCC) (CMS/HCC) Coronary artery disease involving [place] coronary artery of [place] heart without angina pectoris (CMS/HCC) Hypomagnesemia Disorders of magnesium metabolism Mixed hyperlipidemia (CMS/HCC) Mixed hyperlipidemia Chronic low back pain, unspecified back pain laterality, unspecified whether sciatica present Leukocytosis, unspecified type- Primary CRP elevated Elevated C-reactive protein (CRP) [facility] Evaluation note* Diagnosis Onset Date Resolution Status [...] D deficiency acute Apri l 2024 1:35pm [facility] Work Phone: [phone] 179-883404-07-2025 NoteIV fluid bolus at 999ml per hr started. Patient states feeling lightheaded. Placed in reverse trendelenburg. States feels better with change in position [facility]03-31-2025 NoteDrLissett Azevedo made aware - patient is coming for R/Cors on 07/03/24 (procedure at 10:30am). She had labs on 06/26/2024. BUN 23 (normal 7.0-18.0), creat 1.34 (normal 0.55-1.02). She has a history of CKD (per her clinic note).[facility] Chief Complaint: Patient here for follow up chest pain and addition of Ranexa per Dr. Sequeira. She thinks she's more SOB now that she's on it. Denies chest pain, palpitations, and lightheadedness/syncope. HPI: Chiara Eduardo is a 69 y.o. female with a history of coronary artery disease, prior stent placement, COPD, nonsustained ventricular tachycardia here due to worsening symptoms. For the past several months, she has noticed worsening shortness of breath. Her street roller engineer adjusted her inhalers but this does not [...] kidney disease, COPD (chronic obstructive pulmonary disease) ([facility]), Coronary artery disease, Coronary artery disease involving [place] coronary artery of [place] heart without angina pectoris (12/28/2016), Essential hypertension [...] 4 days and is going trelogy- dr coughlin * Nolvia Jimenez NP - 06/08/2024 2:40 PM EDT Images from the original note were not included. Chiara Eduardo is a 69 y.o. female presents with chief complaint of No chief complaint on file. HPI: COPD: sees dr coughlin, inhalers and dupixent Cardiology: sees regularly, does [...] problems. Hypertensive end-organ damage includes kidney disease andCAD/NE. Identifiable causes of hypertension include chronic renal [...] pulmonology [facility] Coronary artery disease involving [place] coronary artery of [place] heart without angina pectoris (CMS/HCC) (Chronic) Under the care of cardiology Current meds: statin, asa, imdur, b shyam, arb, diuretic, and ranexa Aggressive risk factor modification Hypomagnesemia Takes magnesium supplement Check labs yearly and prn dose changes or changes in symtpoms Lower back pain Flexeril prn Relevant Medications cyclobenzaprine (Flexeril) 10 MG tablet Morbid (severe) obesity due to excess calories ([facility]) Discussed with patient their BMI (actual, verses recommended). We have also discussed lifestyle modifications: attempts to perform physical activity as chronic conditions allow, also to monitor dietary intake: increasing protein/fruits/veggies and lowering carb intake (unless contraindicated). Limit sodas, juices, and sugary drinks. Essential (primary) hypertension ([facility]/HCC) - Primary Please check blood pressure daily [...] AM EDTAssociated Problem(s): Coronary artery disease involving [place] coronary artery of [place] heart without angina pectoris (CMS/HCC) Under the care of cardiology Current meds: statin, asa, imdur, b shyam, arb, diuretic, and ranexa Aggressive risk factor modification * Nolvia Jimenez NP - 06/08/2024 7:38 AM EDTAssociated Problem(s): Chronic obstructive pulmonary disease, unspecified (CMS/HCC) Current meds: albuterol, trelegy, Under the care of pulmonology [facility] documented in [facility]Bzbnzvhydd17-36-3320 Evaluation note* Diagnosis Stage 3a chronic kidney disease (HCC) (CMS/HCC)- Primary Other hyperlipidemia (CMS/HCC) Coronary artery disease involving [place] coronary artery of [place] heart without angina pectoris (CMS/HCC) Irregular heartbeat- Primary Unspecified cardiac dysrhythmia Essential (primary) hypertension (CMS/HCC)- Primary Unspecified essential hypertension Morbid (severe) obesity due to excess calories (CMS/HCC) Body mass index (BMI) 35.0-35.9, adult Chronic obstructive pulmonary disease, unspecified (CMS/HCC) Chronic kidney disease, stage 3b (HCC) (CMS/HCC) Coronary artery disease involving [place] coronary artery of [place] heart without angina pectoris (CMS/HCC) Hypomagnesemia Disorders of magnesium metabolism Mixed hyperlipidemia (CMS/HCC) Mixed hyperlipidemia Chronic low back pain, unspecified back pain laterality, unspecified whether sciatica present documented in this encounter [facility] HospitalJijrlbjgab15-18-5568 NoteUT Electrophysiology Consult Note Reason for visit: [...] and effient. She was recently seen at [facility] as a transfer from [facility] for complaints of symptomatic wide-complex tachycardia [...] kidney disease COPD (chronic obstructive pulmonary disease) ([facility]) Coronary artery disease Coronary artery disease involving [place] coronary artery of [place] heart without angina pectoris 12/28/2016 Essential hypertension 12/14/2016 Hyperlipidemia Lower back pain 12/28/2016 Mixed hyperlipidemia 12/14/2016 Shortness of breath 12/28/2016 PSH: Past Surgical History: Procedure Laterality Date CARDIAC CATHETERIZATION CHOLECYSTECTOMY CORONARY STENT PLACEMENT HYSTERECTOMY SH: Social Determinants of Health Tobacco Use: Medium Risk (04/26/2024) Received from [facility] Patient History Smoking Tobacco Use: Former Smokeless Tobacco Use: Never Passive Exposure: Not on file Alcohol Use: Not At Risk (01/14/2019) Received from [employer], [facility] AUDIT-C Frequency of Alcohol Consumption: Monthly or less Average Number of Drinks: 1 or 2 Frequency of Binge Drinking: Never Financial Resource Strain: Low Risk (10/26/2022) Overall [employer] (more content not included)...[facility]01-29-2025 History of Present illness Narrative* Shanda Cheng NP - 04/26/2024 3:41 PM ESTAssociated Problem(s): Essential hypertension (CMS/HCC) Was seen at hospital overnight Pt was treated for hypertensive emergency. Metoprolol [...] Follow-up. HPI Was seen at hospital overnight Pt was treated for hypertensive emergency. Metoprolol [...] weeks with BP readings. documented in this [facility]01-29-2025 Instructions* Patient Instructions* Shanda Cheng NP - [...] numbness/tingling GO TO ER!!! documented in this [facility]01-29-2025 Evaluation note* Diagnosis Stage 3a chronic kidney disease (HCC) (CMS/HCC)- Primary Other hyperlipidemia (CMS/HCC) Coronary artery disease involving [place] coronary artery of [place] heart without angina pectoris (CMS/HCC) Irregular heartbeat- Primary Unspecified cardiac dysrhythmia Essential hypertension (CMS/HCC)- Primary Unspecified essential hypertension documented [facility] this encounter [facility] HospitalTdamzdnhvc50-83-2037 History of Present illness Narrative* Shanda Cheng [...] who presents for Follow-up. HPI Specialists: Cardiology- [facility] Nephrology- Dr. Madrid Pulmonology- Dr. Coughlin Intermittent shortness of breath, swelling in legs, [...] further eval and treatment documented in this encounter[facility] HospitalThaoijketd78-57-9280 Evaluation note* Diagnosis Stage 3a chronic kidney disease (HCC) (CMS/HCC)- Primary Other hyperlipidemia (CMS/HCC) Coronary artery disease involving [place] coronary artery of [place] heart without angina pectoris (CMS/HCC) Irregular heartbeat- Primary Unspecified cardiac dysrhythmia documented in this encounter [facility] HospitalYxfmstelmr70-35-0777 Evaluation note* Diagnosis Stage 3a chronic kidney disease (HCC) (CMS/HCC)- Primary Other hyperlipidemia (CMS/HCC) Coronary artery disease involving [place] coronary artery of [place] heart without angina pectoris (CMS/HCC) Stage 3a chronic kidney disease (HCC) (CMS/HCC)- Primary documented in this encounter [facility] HospitalQlbbmpqkeu17-60-5300 History of Present illness Narrative* Shanda Cheng NP - 01/17/2024 1:00 PM EDT Images from the original note were not included. Subjective : Chief Complaint: Chiara Eduardo is an 68 y.o. female here for an annual wellness visit. Specialists: Cardiology- [facility], [place] Pulmonology- Dr. Coughlin Nephrology- Dr. Madrid I have reviewed and [...] on January 17, 2024 documented in this encounterBarn[facility] HospitalWlmyzojfnr39-51-7206 NoteUT Electrophysiology Consult Note Reason for visit: [...] and effient. She was recently seen at [facility] as a transfer from [facility] for complaints of symptomatic wide-complex tachycardia [...] kidney disease COPD (chronic obstructive pulmonary disease) ([facility]) Coronary artery disease Coronary artery disease involving [place] coronary artery of [place] heart without angina pectoris 12/28/2016 Essential hypertension [...] Intimate Partner Violence: Not At Risk (10/26/2022) [place] Safety & Environment Fear of Current or [...] Lived in the (more content not included)...[facility] Evaluation note* [...] deficiency (ICD-10 - E55.9) continue VD supplement [employer] Other 01-10-2023 Evaluation note* Encounter Date Diagnosis [...] I will recheck sodium level next visit [employer] Other Evaluation note* Diagnosis Onset Date Resolution Status Anemia acute Hyperkalemia acute Hypertensive nephropathy acu te Hyperuricemia acute Hypomagnesemia acute Hyponatremia acute Stage 3b chronic kidney disease acute Vitamin D deficiency acute [facility] Work Phone: Evaluation note* Diagnosis Stage 3a chronic kidney disease (HCC) (CMS/HCC)- Primary Other hyperlipidemia (CMS/HCC) Coronary artery disease involving [place] coronary artery of [place] heart without angina pectoris (CMS/HCC) Routine general medical examination at health care facility- Primary Routine general medical examination at a health care facility documented in this encounter [facility] HealthcareEvaluation note* Diagnosis Stage 3a chronic kidney disease (HCC) (CMS/HCC)- Primary Other hyperlipidemia (CMS/HCC) Coronary artery disease involving [place] coronary artery of [place] heart without angina pectoris (CMS/HCC) Other hyperlipidemia (CMS/HCC) documented in this encounter [facility] HealthcareEvaluation note* Diagnosis Stage 3a chronic kidney disease (HCC) (CMS/HCC)- Primary Other hyperlipidemia (CMS/HCC) Coronary artery disease involving [place] coronary artery of [place] heart without angina pectoris (CMS/HCC) Irregular heartbeat- Primary Unspecified cardiac dysrhythmia Essential hypertension (CMS/HCC)- Primary Unspecified essential hypertension documented in this encounter [facility] HealthcareEvaluation note* Diagnosis Stage 3a chronic kidney disease (CMS-HCC)- Primary Other hyperlipidemia Coronary artery disease involving [place] coronary artery of [place] heart without angina pectoris Irregular heartbeat- Primary Unspecified cardiac dysrhythmia Essential (primary) hypertension- Primary Unspecified essential hypertension Morbid (severe) obesity due to excess calories ([facility]-HCC) Body mass index (BMI) 35.0-35.9, adult Chronic obstructive pulmonary disease, unspecified (HCC) Chronic kidney disease, stage 3b (CMS-HCC) Coronary artery disease involving [place] coronary artery of [place] heart without angina pectoris Hypomagnesemia Disorders of magnesium metabolism Mixed hyperlipidemia Mixed hyperlipidemia Chronic low back pain, unspecified back pain laterality, unspecified whether sciatica present Pneumonia of right lower lobe due to infectious organism- Primary Acute hypoxic respiratory failure (HCC) Coronary artery disease involving [place] coronary artery of [place] heart without angina pectoris Essential (primary) hypertension Unspecified essential hypertension Chronic kidney disease, stage 3b (CMS-HCC) Morbid (severe) obesity due to excess calories (CMS-HCC) Essential (primary) hypertension- Primary Unspecified essential hypertension Morbid (severe) obesity due to excess calories (CMS-HCC) Other hyperlipidemia Type 2 diabetes mellitus without complications (HCC) Emphysema, unspecified (HCC) Chronic obstructive pulmonary disease with acute exacerbation (HCC) Other constipation Heart failure, unspecified HF chronicity, unspecified heart failure type (HCC) Bug bite, initial encounter- Primary documented in this encounter [facility] HealthcareEvaluation noteNo assessment information availableFort Hamilton Hospital Ctr Work Phone: Hiskmqz general Narrative - Reported* Type Description Date Medical History CHRONIC OBSTRUCTIVE PULMONARY DI SEASE Medical History HYPERTENSION Medical History GERD Medical History HYPERLIPIDEMIA Medical History HEART ATTACK Surgical History HYSTERECTOMY Surgical History GALL BLADDER Surgical History TUBES TIED Surgical History 2 HEART STENTS Hospitalization History SEE ABOVE [employer] Other History general Narrative - Reported* Type Description Date Medical History CHRONIC OBSTRUCTIVE PULMONARY DI SEASE Medical History HYPERTENSION Medical History GERD Medical History HYPERLIPIDEMIA Medical History HEART ATTACK Medical History V-TACH Surgical History HYSTERECTOMY Surgical History GALL BLADDER Surgical History TUBES TIED Surgical History 2 HEART STENTS Surgical History HEART CATH AND STENT PLACEMENT 07/14/2022 Hospitalization History SEE ABOVE Hospitalization History V-TACH [employer] Other Hospital Discharge instructions Additional Instructions DISCHARGE INSTRUCTIONS FOR COLONOSCOPY WHAT TO EXPECT: - You may feel full, gassy or cramping after your procedure. In some cases, this may be from a few hours to a day. Walking may help relieve the discomfort. - If you have polyp(s) removed you may note some minor bloody discharge after your first bowel movements. - You should begin to recover from anesthesia within 1 hour of the procedure, however may feel groggy for the next 24 hours. DO's AND DON'Ts: - Call your doctor right away if you have a hard abdomen, severe pain, are passing lots of bright red blood or clots. - Call your doctor if you develop any rashes, hives or difficulty breathing. - Let your doctor know if you have not had a bowel movement by 3 days after your procedure. - If you take 81 mg aspirin for your heart it is safe to resume this medication. - If you take other blood thinner medications your doctor will instruct you when these can safely be resumed. - Do NOT drive for 24 hours. - Do NOT operate machinery such as power tools, [employer] mowers, snow blowers, sewing machines, etc. for 24 hours. - Avoid alcoholic beverages and drugs for allergies, nerves, or sleep. - Do NOT stay alone. Do NOT leave your child unattended. - Do NOT make important personal or business decisions or sign any legal documents. - Eat solid foods and drink liquids in smaller amounts than usual until normal appetite returns. If you should experience an upset stomach, liquids high in sugar content (soda, Hill-Aid, non-acid juices) are recommended. - You can resume normal activities tomorrow. FOLLOW UP & RECOMMENDATIONS: -Notify the doctor if you have any problems. -Repeat colonoscopy using gastroscope in 6-month -Follow up pathology -Take tablespoon of Metamucil once daily, avoid dehydration, Can add Miralax 17gm PO Qday and titrate up to twice or three times daily if needed. -Office number [phone]. [facility] Work Phone: Reason for referral (narrative)No reason for referral information availableParkview Health Bryan Hospital Work Phone: Summary Purpose Family History No Family History Records Found Relationship Condition Age at Onset Recorded Date/T abdirizak daughter Hypertension Unknown father Unknown Hypertension Unknown mother Heart disease Unknown History of stroke Unknown Unknown sister Hypertension Unknown Advance Directives No Advanced Directives Records Found Advance Directive Response Recorded Date/ Time Advance Directives No November 16, 2023 9:54am Documents on File Type Date Recorded Patient Clerical [employer] Administrative Workers Expl anation Power of Station Inspector 09/06/2024 3:49 PM [facility]alt [facility] Documents on File Type Date Recorded Patient Clerical And Administrative Workers Expl anation Power of Station Inspector 09/06/2024 3:49 PM Healt h care power of staff attorney-[facility] Chief Complaint and Reason for Visit [...] MONTH F/U July 25, 2024 1:3 5pm Chief Complaint Admit Date positive cologuard, constipation November 01, 2024 10:27am Additional Source Comments REASON FOR VISIT (unrecogniz ed section and content) Reason Comments Annual Exam Annual wellness Reason Onset Date Comments Med Refill 01/17/2024 Reason Onset Date Comments Med Refill 04/03/2024 Reason Comments Follow-up Reason Comments Hospital Follow-up Reason Comments Hospital Follow-up Pneumonia Reason Comments Vomiting Reason Onset Date Comments Med Refill 10/12/2024 INFORMATION SOURCE (unrecogn ized section and content) DATE CREATED AUTHOR 08/07/2022 [facility] DATE CREATED AUTHOR AUTHOR'S ORGANIZ ATION 10/14/2024 [facility] d[facility] Specialists EPIC DATE CREATED AUTHOR AUTHOR'S ORGANIZ ATION 10/14/2024 [facility] DATE CREATED AUTHOR AUTHOR'S ORGANIZ ATION 11/03/2024 [facility] Care Teams (unrecognized sec tion and content) Team Status: Active Member Role Status Dates Shaikh Ric MD Primary Care Provider Active Team Status: Active Member Role Status Dates Shaikh Ric MD Primary Care Provider Active Start: November 08, 2023 Jackelyn Diggs MD Attending Provider Active Star t: November 08, 2023 Team Status: Inactive Member Role Status Dates Shaikh Ric MD Primary Care Provider Active Start: November 16, 2023 End: November 16, 2023 Jackelyn Diggs MD Attending Provider Active Star t: November 16, 2023 End: November 16, 2023 Team Status: Active Member Role Status Dates KIERA SantosC Primary Care Provider Ac tive Team Status: Active Member Role Status Dates Jackelyn Diggs MD Attending Provider Active Star t: November 23, 2023 Shaikh Ric MD Primary Care Provider Active Start: November 23, 2023 Team Status: Inactive Member Role Status Dates Jackelyn Diggs MD Attending Provider, Referring Provider Active Start: December 20, 2023 End: December 20, 2023 Shanda Cheng NP-C Primary Care Provider Active Start: November 282023 End: December 20, 2023 Medical Assistant Dermatology Relationship Specialty Start Date End Date Shaikh Larios MD [address] [place] [id number] PCP - Alexx FLOWER 04/29/23 Trace Kelly MD [address] [place] [address] PCP - General Family Medicine 11/10/23 Shanda Cheng NP [address] [place] [address] Nurse Practitioner Family Medicine 11/10/23 Medical Assistant Dermatology Relationship Specialty Start Date End Date Shaikh Larios MD [address] [place] [address] PCP - Alexx MD 04/29/23 Trace Kelly MD [address] [place] [address] PCP - General Family Medicine 01/17/24 Shanda Cheng NP [address] [place] [address] Nurse Practitioner Family Medicine 11/10/23 Medical Assistant Dermatology Relationship Specialty Start Date End Date Shaikh Larios MD [address] [place] [address] PCP Ana Lilia Coffey MA 04/29/23 Trace Kelly MD [address] [place] [address] PCP - General Family Medicine 01/17/24 Shanda Cheng NP [address] [place] [address] Nurse Practitioner Family Medicine 11/10/23 Medical Assistant Dermatology Relationship Specialty Start Date End Date Shaikh Larios MD [address] [place] [phone] PCP - Alexx FLOWER 04/29/23 Trace Kelly MD [address] [place] [address] PCP - General Family Medicine 01/17/24 Shanda Cheng NP [address] [place] [address] Nurse Practitioner Family Medicine 11/10/23 Medical Assistant Dermatology Relationship Specialty Start Date End Date Shaikh Larios MD [address] [place] [address] PCP - Alexx FLOWER 04/29/23 Trace Kelly MD [address] [place] [address] PCP - General Family Medicine 11/10/23 Shanda Cheng NP [address] [place] [address] Nurse Practitioner Family Medicine 11/10/23 Medical Assistant Dermatology Relationship Specialty Start Date End Date Shaikh Larios MD [address] [place] [address] PCP Ana Lilia Coffey MA 04/29/23 Trace Kelly MD [address] [place] [address] PCP - General Family Medicine 01/17/24 Shanda Cheng NP [address] [place] [address] Nurse Practitioner Family Medicine 11/10/23 Medical Assistant Dermatology Relationship Specialty Start Date End Date Shaikh Larios MD [address] [place] [address] PCP - Alexx MD 04/29/23 Trace Kelly MD [address] [place] [address] PCP - General Family Medicine 01/17/24 Shanda Cheng NP [address] [place] [address] Nurse Practitioner Family Medicine 11/10/23 Medical Assistant Dermatology Relationship Specialty Start Date End Date Shaikh Larios MD [address] [place] [address] PCP - Alexx FLOWER 04/29/23 Trace Kelly MD [address] [place] [address] PCP - General Family Medicine 01/17/24 Shanda Cheng NP [address] [place] [address] Nurse Practitioner Family Medicine 11/10/23 Medical Assistant Dermatology Relationship Specialty Start Date End Date Shaikh Larios MD [address] [place] [address] PCP - Alexx FLOWER 04/29/23 Trace Kelly MD [address] [place] [address] PCP - General Family Medicine 01/17/24 Shanda Cheng NP [address] [place] [address] Nurse Practitioner Family Medicine 11/10/23 Medical Assistant Dermatology Relationship Specialty Start Date End Date Trace Kelly MD [address] [place] [address] PCP - General Family Medicine 01/17/24 Shanda Cheng NP PCP Ana Lilia Coffey MA 03/29/24 Shanda Cheng NP Nurse Practitioner Family Medicine 11/10/23 Medical Assistant Dermatology Relationship Specialty Start Date End Date Trace Kelly MD [address] [place] [address] PCP - General Family Medicine 01/17/24 Shanda Cheng NP PCP Ana Lilia Coffey MA 03/29/24 Shanda Cheng NP Nurse Practitioner Family Medicine 11/10/23 Team Status: Active Member Role Status Dates KIERA SantosC Primary Care Provider Ac tive Start: May 02, 2024 Rob Deras DO Attending Provider Active Sta rt: May 02, 2024 Team Status: Active Member Role Status Dates Jackelyn Diggs MD Attending Provider Active Star t: July 17, 2024 Shanda Cheng NP-C Primary Care Provider Ac tive Start: July 17, 2024 Team Status: Inactive Member Role Status Dates KARO Santos Primary Care Provider Ac tive Start: July 25, 2024 End: July 25, 2024 Jackelyn Diggs MD Attending Provider Active Star t: July 25, 2024 End: July 25, 2024 Medical Assistant Dermatology Relationship Specialty Start Date End Date Trace Kelly MD [address] [place] [id number] PCP - General Family Medicine 01/17/24 Shanda Cheng NP PCP - Alexx FLOWER 03/29/24 Shanda Cheng NP Nurse Practitioner Family Medicine 11/10/23 Medical Assistant Dermatology Relationship Specialty Start Date End Date Trace Kelly MD [address] [place] [id number] PCP - General Family Medicine 01/17/24 Shanda Cheng NP PCP - Alexx FLOWER 03/29/24 Shanda Cheng NP Nurse Practitioner Family Medicine 11/10/23 Team Status: Inactive Member Role Status Dates Nolvia Jimenez Attending Provider Active Start: July 26, 2024 End: July 26, 2024 Medical Assistant Dermatology Relationship Specialty Start Date End Date Trace Kelly MD [address] [place] [phone] PCP - General Family Medicine 01/17/24 Shanda Cheng NP PCP - Alexx FLOWER 03/29/24 Shanda Cheng NP Nurse Practitioner Family Medicine 11/10/23 Medical Assistant Dermatology Relationship Specialty Start Date End Date Trace Kelly MD [address] [place] [phone] PCP - General Family Medicine 01/17/24 Shanda Cheng NP PCP - Alexx FLOWER 03/29/24 Shanda Cheng NP Nurse Practitioner Family Medicine 11/10/23 Medical Assistant Dermatology Relationship Specialty Start Date End Date Trace Kelly MD [address] [place] [phone] PCP - General Family Medicine 01/17/24 Shanda Cheng NP PCP - Alexx FLOWER 03/29/24 Shanda Cheng NP Nurse Practitioner Family Medicine 11/10/23 Medical Assistant Dermatology Relationship Specialty Start Date End Date Trace Kelly MD [address] [place] [phone] PCP - General Family Medicine 01/17/24 Shanda Cheng NP PCP - Alexx FLOWER 03/29/24 Shanda Cheng NP Nurse Practitioner Family Medicine 11/10/23 Medical Assistant Dermatology Relationship Specialty Start Date End Date Trace Kelly MD [address] [place] [phone] PCP - General Family Medicine 01/17/24 Shanda Cheng NP PCP - Alexx FLOWER 03/29/24 Shanda Cheng NP Nurse Practitioner Family Medicine 11/10/23 Medical Assistant Dermatology Relationship Specialty Start Date End Date Trace Kelly MD [address] [place] [phone] PCP - General Family Medicine 01/17/24 Shanda Cheng NP PCP Ana Lilia Coffey MA 03/29/24 Shanda Cheng NP Nurse Practitioner Family Medicine 11/10/23 Medical Assistant Dermatology Relationship Specialty Start Date End Date Trace Kelly MD [address] [place] [phone] PCP - General Family Medicine 01/17/24 Shanda Cheng NP PCP - Alexx FLOWER 03/29/24 Shanda Cheng NP Nurse Practitioner Family Medicine 11/10/23 Medical Assistant Dermatology Relationship Specialty Start Date End Date Trace Kelly MD [address] [place] [phone] PCP - General Family Medicine 01/17/24 Shanda Cheng NP PCP - Alexx FLOWER 03/29/24 Shanda Cheng NP Nurse Practitioner Family Medicine 11/10/23 Medical Assistant Dermatology Relationship Specialty Start Date End Date Trace Kelly MD [address] [place] [phone] PCP - General Family Medicine 01/17/24 Shanda Cheng NP PCP - Alexx FLOWER 03/29/24 Shanda Cheng NP Nurse Practitioner Family Medicine 11/10/23 Medical Assistant Dermatology Relationship Specialty Start Date End Date Trace Kelly MD [address] [place] [phone] PCP - General Family Medicine 01/17/24 Shanda Cheng NP PCP - Alexx FLOWER 03/29/24 Shanda Cheng NP Nurse Practitioner Family Medicine 11/10/23 Medical Assistant Dermatology Relationship Specialty Start Date End Date Trace Kelly MD [address] [place] [phone] PCP - General Family Medicine 01/17/24 Shanda Cheng NP PCP - Alexx FLOWER 03/29/24 Shanda Cheng NP Nurse Practitioner Family Medicine 11/10/23 Team Status: Active Member Role Status Dates Nolvia Jimenez Primary Care Provider Active Team Status: Active Member Role Status Dates Lisa Perez MD Attending Provider Active Start: November 01, 2024 Lisa Perez MD Other Provider Active Start: Oct Nolvia Jimenez Primary Care Provider Active Sta rt: November 01, 2024 Medical Assistant Dermatology Relationship Specialty Start Date End Date Trace Kelly MD [address] [place] [address] PCP - General Family Medicine 01/17/24 Shanda [...] BE BASED ON THE PRIMARY CLINICAL RECORDS. [employer] provides no warranty or guarantee of the accuracy or completeness of information in this document.
[2024-11-08 13:01] LABS: Anion Gap 13.3; Blood Urea Nitrogen 21.0 mg/dL (7.0-18.0); Calcium 9.0 mg/dL (8.5-10.1); Carbon Dioxide 27.8 mmol/L (21.0-32.0); Chloride 98 mmol/L (98-107); Estimated GFR (African America 44 (>=60 mL/min/1.73m^2); Estimated GFR (Non-African Ame 36 (>=60 mL/min/1.73m^2); Glucose 88 mg/dL (74-106); Potassium 4.1 mmol/L (3.5-5.1); Sodium 135 mmol/L (136-145)
== END 2024-11-08 12:09 | disposition home or self-care (01) ==
LOC: LAB 12:10
PROVIDERS: PCP Nurse Practitioner; Visit Provider Internal Medicine Interventional Cardiology
DX: I11.0 Hypertensive heart disease with heart failure (principal)
CPT/HCPCS: 36415; 80048

== ENCOUNTER 2024-11-15 11:32 | Outpatient (OUT) | payer MEDICARE, SELFPAY ==
--- OUTSIDE RECORDS SUMMARY | 2024-11-15 11:41 | XMS_ITS | CCD ---
Author Organization [facility] Care Team Providers Care Cable Tester Name Role Phone Jackelyn Diggs Unavailable JACKELYN DIGGS Attending Unavailable JACKELYN DIGGS Admitting Unavailable HOUSE, DR CASTILLO Primary Care Unavailable WEST, DR TIMOTHY Chandler Consulting Unavailable SAMSA ., LUIS Consulting Unavailable BAKHOUS, JACKELYN Consulting Unavailable SAMSA ., LUIS Consulting Unavailable SAMSA ., LUIS Attending Unavailable SAMSA ., LUIS Admitting Unavailable HOUSE, DR CASTILLO Primary Care Unavailable SAMSA ., LIUS Consulting Unavailable SAMSA ., LUIS Attending Unavailable SAMSA ., LUIS Admitting Unavailable MISC, DR PAREDES Primary Care Unavailable SAMSA ., LUIS Attending Unavailable SAMSA ., LUIS Admitting Unavailable MISC, DR PAREDES Primary Care Unavailable SAMSA ., LUIS Attending Unavailable HARTLY, DR TIMOTHY Chandler Consulting Unavailable HOUSE, DR CASTILLO Primary Care Unavailable SAMSA ., LUIS Admitting Unavailable SAMSA ., LUIS Consulting Unavailable HOUSE, DR CASTILLO Admitting Unavailable HOUSE, DR CASTILLO Primary Care Unavailable FAIRFIELD, DR CASTILLO Consulting Unavailable HOUSE, DR CASTILLO Attending Unavailable BAKHOUS, SEBASTIANIZ Consulting Unavailable BAKHUMBERTOS, JACKELYN Attending Unavailable BAKHUMBEROTS, AZIZ Admitting Unavailable HOUSE, DR CASTILLO [facility] Attending Unavailable HOUSE, DR CASTILLO Primary [facility] Admitting Unavailable SAMSA ., LUIS Consulting Unavailable SAMSA ., LUIS Attending Unavailable SAMSA ., LUIS Admitting Unavailable HOUSE, DR CASTILLO Primary Care Unavailable HOUSE, DR CASTILLO Consulting Unavailable SAMSA ., LUIS Consulting Unavailable MD Jackelyn Diggs Attending Provider [phone] MD Jackelyn Diggs Referring Provider [phone] KARO Cheng Primary Care Provid Ric COTE, Altamirano Unavailable Robin COTE, Trace Primary Care Provider Skylar EMISSIONS ENGINEER, Shanda Unavailable Robin COTE, Trace Primary Care Provider Skylar EMISSIONS ENGINEER, Shanda Unavailable Skylar EMISSIONS ENGINEER, Shanda Unavailable Nolvia Jimenez Attending Provider Ana COTE, Imkai Attending Provider Ana COTE, Imkai Other Provider Nolvia Jimenez Primary Care Provider GRISELDA HARVEY Referring Unavailable HORANI, KIRSTEN Admitting Unavailable RHEA MANNING Attending Unavailable HORANI, KIRSTEN Referring Unavailable HORANI, KIRSTEN Referring Unavailable HORANI, KIRSTEN Referring Unavailable XANDER SEQUEIRA Attending Unavailable ELTAHAWY, EHAB Attending Unavailable ELTAHAWY, EHAB Attending Unavailable ELTAHAWY, EHAB Referring Unavailable XANDER SEQUEIRA Attending Unavailable ZCAK LUU Attending Unavailable HORANI, KIRSTEN Referring Unavailable ELTAHAWY, EHAB Admitting Unavailable ELTAHAWY, EHAB Attending Unavailable Asaad, Imad Admitting Unavailable Asaad, Imad Attending Unavailable Nolvia Jimenez Primary Care Unavailable Nolvia Jimenez Admitting Unavailable Nolvia Jimenez Attending Unavailable Bakhous, Aziz Admitting Unavailable Bakhous, Aziz Attending Unavailable Bakhous, Aziz Referring Unavailable Cheng Shanda N Primary Care Unavaila ble SHANDA CHENG Attending Unavailabl e SHANDA CHENG Attending Unavailabl e NOLVIA JIMENEZ Attending Unavailable SACHAHNOLVIA GARCIA Attending Unavailable NOLVIA JIMENEZ Attending Unavailable NOLVIA JIMENEZ Attending Unavailable SHANDA CHENG Attending Unavailabl e Allergies Allergy Classification Reported Allergen(s) Allergy Type Date of Onset Reaction(s) Facility (20 sources) clopidogrel; Translations: [CLOPIDOGREL] Drug Allergy [facility] (8 sources) hydroCHLOROthiazide; Translations: [HYDROCHLOROTHIAZIDE] Drug Allergy rash [facility] (3 sources) Penicillin; Translations: [penicillin] Drug Allergy [facility] Repository (20 sources) Vancomycin; Translations: [VANCOMYCIN] Drug Allergy anaphylaxis [facility] (2 sources) Substance with sulfonamide structure and antibacterial mechanism of action (substance) Drug allergy Unknown [facility] Other (1 source) clopidogrel Drug Allergy [facility] Repository (1 source) hydroCHLOROthiazide Drug Allergy [facility] Repository (1 source) Vancomycin Drug Allergy [facility] Repository (20 sources) Penicillins; Translations: [PENICILLINS] Allergy to substance [facility] (7 sources) Sulfonamides (Antibiotic); Translations: [SULFA (SULFONAMIDE ANTIBIOTICS)] Allergy to substance Unknown Reaction [facility] (20 sources) hydroCHLOROthiazide Drug Allergy [facility] (20 sources) Sodium Chloride; Translations: [SODIUM CHLORIDE] Drug Allergy [facility] (20 sources) Sulfacetamide Drug Allergy [facility] (1 source) clopidogrel Drug Allergy [facility] Repository (1 source) hydroCHLOROthiazide Drug Allergy [facility] Repository (1 source) Vancomycin Drug Allergy [facility] Repository Medications Current Medications Medication Drug Class(es) Dates Sig (Normalized) Sig (Original) [id number] actuat albuterol 0.09 mg/actuat metered dose [...] Discontinued (Reorder) dapagliflozin 10 mg oral tablet (20 sources) Sodium-Glucose Cotransporter 2 Inhibitor Start: 07-03-2024 End: 10-31-2024 take 10 mg by mouth in the morning Farxiga 10 MG Take 10 mg by mouth in the morning. 09/22/2024 Active 2 ml dupilumab 150 mg/ml auto-injector (20 [...] EVERY 2 WEEKS July 25, 2024 12:00am 60 actuat fluticasone propionate 0.25 mg/actuat / salmeterol 0.05 mg/actuat dry powder inhaler (20 sources) Corticosteroid, beta2-Adrenergic Agonist Start: 10-11-2024 take 1 puff(s) by inhalation in the morning Fluticasone-Salmeterol 250-50 MCG/ACT aerosol powder Inhale 1 puff in the morning and 1 puff before bedtime. 10/11/2024 Active Start: 11-16-2023 End: 07-25-2024 Fluticasone Propion-Salmeter ol (Advair Diskus) 250-50 mcg/dose blister with device [...] 1 puff Inhalation Twice a day Active Wwbrlgzkoqe-Aktqejtmg-Hecrdn er (20 sources) Anticholinergic, Corticosteroid, beta2-Adrenergic Agonist Start: 10-18-2024 Tyuallltuaw-Cfgouwdbp-Bfsptr er (Trelegy Ellipta) 100-62.5-25 mcg blister with [...] 2024 2:50pm take 1 tablet by rebecca once daily furosemide (Lasix) 40 MG tablet Take 40 mg by mouth Daily Active End: 11-13-2024 take 1 tablet by mouth every other day furosemide (Lasix) 20 MG tablet Indications: Edema Take 20 mg by mouth every other day 11/13/2024 Discontinued (Therapy completed) End: 06-08-2024 furosemide (Lasix) 40 MG tab let Take 20 mg by mouth in the morning. 06/08/2024 Discontinued (Therapy completed) Furosemide 20 MG as directed Orally Once a day Active 24 hr [...] PO July 25, 2024 12:00am Start: 05-31-2024 End: 11-13-2024 take 1 tablet by mouth in the morning metoprolol tartrate (Lopressor) 50 MG tablet Take 50 mg by mouth in the morning and 50 mg before bedtime. 05/31/2024 11/13/2024 Discontinued (Therapy completed) Start: 02-08-2024 End: 07-25-2024 take 2 tablets [...] day Active nitroglycerin 0.4 mg sublingual tablet (20 sources) Nitrate Vasodilator Start: 09-05-2024 nitroglycerin (Nitrostat) [...] 16, 2023 12:00am Complies with 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 End: 11-13-2024 take 1 tablet by mouth before mealtime omeprazole OTC (PriLOSEC OTC) 20 MG EC tablet Take 20 mg by mouth in the morning. Take before meals. Do not crush, chew, or split.. 11/13/2024 Discontinued (Therapy completed) take 1 capsule by mo uth once daily Omeprazole 20 MG 1 capsule 30 minutes before morning meal Orally Once a day Active [employer] device (1 source) Start: 10-18-2024 [employer] device Active 0 .ROUTE October 18, 2024 12:00am As directed pantoprazole 40 mg delayed release oral tablet (3 sources) Proton Pump Inhibitor Start: 11-13-2024 End: 02-11-2025 take 1 tablet by mouth before mealtime pantoprazole (ProtoNix) 40 MG EC tablet Indications: Gastroesophageal reflux disease without esophagitis Take 1 tablet (40 mg) by mouth in the morning. Take before meals. Do not crush, chew, or split. 90 tablet 11/13/2024 02/11/2025 Active triamcinolone acetonide 5 mg/ml topical cream (1 source) Corticosteroid Start: 10-18-2024 End: 11-01-2024 triamcinolone (Kenalog) 0.5 % cream Indications: Bug [...] 16, 2023 12:00am February 08, 2024 2:49pm predniSONE 10 mg oral tablet (20 sources) Start: 06-07-2024 End: 11-13-2024 predniSONE (Deltasone) 10 MG tablet 06/07/2024 11/13/2024 Discontinued (Therapy completed) Start: 11-16-2023 End: 07-25-2024 take 1 tablet [...] 9:00 p.m. the day before the colonoscopy spironolactone 25 mg oral tablet (14 sources) Aldosterone Antagonist End: 11-13-2024 take 1 tablet by mouth in the morning spironolactone (Aldactone) 25 MG tablet Take 25 mg by mouth in the morning. 11/13/2024 Discontinued (Therapy completed) Problems Active Problems Problem Classification Problem Date Documented Da te Episodic/Chronic Abdominal pain (5 sources) Epigastric pain; Translations: [Epigastric pain] Onset: 5 11-13-2024 Episodic Acute myocardial infarction (2 sources) Non-ST elevation (NSTEMI) myocardial infarction; Translations: [Non-ST elevation (NSTEMI) myocardial infarction] Onset: 5 Chronic Cardiac dysrhythmias (20 sources) Irregular heart beat; Translations: [Cardiac arrhythmia, unspecified] Onset: 3 04-18-2024 Chronic Chronic kidney disease (20 sources) Chronic kidney disease stage 3A ; Translations: [Chronic kidney disease, stage 3a] Onset: 2 Resolved: 5 11-13-2023 Chronic Chronic kidney disease (4 sources) Chronic kidney disease; Translations: [CHRONIC KIDNEY DISEASE STAGE 3A] Onset: 3 Chronic obstructive pulmonary disease and bronchiectasis (20 sources) Chronic obstructive pulmonary disease, unspecified; Translations: [Chronic obstructive lung disease] Onset: 7 Chronic Congestive heart failure; nonhypertensive (18 sources) Heart failure; Translations: [Heart failure, unspecified] Onset: 5 10-10-2024 Chronic Coronary atherosclerosis and other heart disease (20 sources) Atherosclerotic heart disease of [place] coronary artery without angina pectoris; Translations: [Coronary arteriosclerosis] Onset: 7 Chronic Deficiency and other anemia (5 sources) Anemia, unspecified; Translations: [Anemia, unspecified] Episodic Deficiency and other anemia (5 sources) Anemia; Translations: [Anemia, unspecified] 11-13-2023 Episodic Diabetes mellitus without complication (19 sources) Type 2 diabetes mellitus; Translations: [Type 2 diabetes mellitus without complications] Onset: 5 10-10-2024 Chronic Diseases of white blood cells (20 sources) Leukocytosis; Translations: [Elevated white blood cell count, unspecified] Onset: 5 07-26-2024 Chronic Disorders of lipid metabolism (20 sources) Hyperlipidemia; Translations: [Other hyperlipidemia] Onset: 3 Resolved: 5 04-12-2023 Chronic E Codes: Natural/environment (8 sources) Insect bite - wound; Translations: [Bitten or stung by nonvenomous insect and other nonvenomous arthropods, initial encounter] Onset: 5 10-18-2024 Episodic Esophageal disorders (5 sources) Gastroesophageal reflux disease without esophagitis; Translations: [Gastro-esophageal reflux disease without esophagitis] Onset: 5 11-13-2024 Chronic Essential hypertension (20 sources) Essential hypertension; Translations: [Essential (primary) hypertension] Onset: 7 Resolved: 5 04-12-2023 Chronic Hypertension with complications and secondary hypertension (20 sources) Hypertensive renal disease; Translations: [Hypertensive chronic kidney disease with stage 1 through stage 4 chronic kidney disease, or unspecified chronic kidney disease] Onset: 2 Chronic Nutritional deficiencies (11 sources) Vitamin D deficiency; Translations: [Vitamin D deficiency, unspecified] Chronic Other endocrine disorders (3 sources) Hyperparathyroidism; Translations: [Hyperparathyroidism, unspecified] 07-25-2024 Chronic Other endocrine disorders (2 sources) Hyperparathyroidism, unspecified; Translations: [Hyperparathyroidism, unspecified] 07-25-2024 Chronic Other gastrointestinal disorders (17 sources) Constipation; Translations: [Other constipation] Onset: 5 10-10-2024 Episodic Other gastrointestinal disorders (12 sources) Stool DNA-based colorectal cancer screening positive; Translations: [Other fecal abnormalities] Onset: 5 10-11-2024 Episodic Other gastrointestinal disorders (1 source) Constipation, unspecified; Translations: [Constipation, unspecified] Onset: 5 Episodic Other lower respiratory disease (2 sources) Shortness of breath; Translations: [Shortness of breath] Onset: 3 Episodic Other nutritional; endocrine; and metabolic disorders (20 sources) Hypomagnesemia; Translations: [Hypomagnesemia] Onset: 3 11-13-2023 Chronic Other nutritional; endocrine; and metabolic disorders (5 sources) Hypomagnesemia; 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 Other nutritional; endocrine; and metabolic disorders (20 sources) Obesity caused by energy imbalance; Translations: [Morbid (severe) obesity due to excess calories] Onset: 5 06-08-2024 Chronic Other nutritional; endocrine; and metabolic disorders (20 sources) Body mass index 30+ - obesity; Translations: [Body mass index (BMI) 35.0-35.9, adult] Onset: 5 06-08-2024 Chronic Other nutritional; endocrine; and metabolic disorders (5 sources) Hyperuricemia without signs of inflammatory arthritis and tophaceous disease; Translations: [Other abnormal blood chemistry] Episodic Other nutritional; endocrine; and metabolic disorders (5 sources) Hyperuricemia; Translations: [Hyperuricemia without signs of inflammatory arthritis and tophaceous disease] 11-13-2023 Episodic Pneumonia (except that caused by tuberculosis or sexually transmitted disease) (20 sources) Right lower zone pneumonia; Translations: [Pneumonia, unspecified organism] Onset: 5 09-06-2024 Episodic Residual codes; unclassified (2 sources) Localized edema; Translations: [Localized edema] Onset: 5 Episodic Respiratory failure; insufficiency; arrest (adult) (15 sources) Chronic respiratory failure; Translations: [Chronic respiratory failure, unspecified whether with hypoxia or hypercapnia] Onset: 5 10-10-2024 Chronic Respiratory failure; insufficiency; arrest (adult) (20 sources) Acute respiratory failure; Translations: [Acute respiratory failure with hypoxia] Onset: 5 09-06-2024 Episodic Unclassified (1 source) Other ventricular tachycardia; Translations: [Other ventricular tachycardia] Onset: 3 Past or Other Problems Problem Classification Problem [...] Name Value Interpretation Reference Range Facility 36on 11-09-2024 36 My chart request for refills Normal [facility] ALL BASIC METABOLIC PANELon 11-08-2024 Anion gap [Moles/Vol] 13.3 mmol/L [facility] Calcium [Mass/Vol] 9 mg/dL 8.5 - 10. 1 mg/dL [facility] Chloride [Moles/Vol] 98 mmol/L 98 - 10 7 mmol/L [facility] CO2 [Moles/Vol] 27.8 mmol/L 21.0 - 32.0 mmol/L [facility] Creatinine [Mass/Vol] 1.42 mg/dL High 0.55 - 1.02 mg/dL [facility] GFR/1.73 sq M.predicted CKD-EPI (S/P/Bld) [Vol rate/Area] 44 Low >=60 mL/min/1.73m 2 [facility] Glucose [Mass/Vol] 88 mg/dL 74 - 106 mg/dL [facility] Interpretation and review of laboratory results Abnormal [facility] Potassium [Moles/Vol] 4.1 mmol/L 3.5 - 5.1 mmol/L [facility] Sodium [Moles/Vol] 135 mmol/L Low 136 - 145 mmol/L [facility] EGFR-NON AF AFGHAN 36 Low >=60 mL/min/1.73m 2 [facility] Urea nitrogen [Mass/Vol] 21 mg/dL High 7.0 - 18.0 mg/dL [facility] Urea nitrogen/Creatinine [Mass ratio] 14.8 mg/mg [facility] ITPon 11-03-2024 [place] [address] Cardiac Rehab Report Signed Patient: CHIARA EDUARDO MR#: [id number] : 1955 Acct:[id number] Age/Sex: 69 / F ADM Date: 10/05/24 Loc: CR Attending Dr: Abby Azevedo M.D. Ordering Physician: Abby Azevedo M.D. Date of Service: 10/23/24 Procedure(s): ITP Accession Number(s): [id number] cc: [facility] Test Date: 2024-10-23 Pat Name: CHIARA EDUARDO Department: Room: - Gender: Female Drafter Patent: : 1955 Requested By: ABBY AZEVEDO Order Number: [id number] Reading MD: HERIBERTO ESTEVEZ M.D. Interpretive Statements Patient may continue cardiac rehab as outlined in the treatment plan. Electronically Signed On 11-03-2024 10:21:15 EDT by HERIBERTO ESTEVEZ M.D. Dictated By: HERIBERTO ESTEVEZ Signed By: 11/03/24 1021 11/03/24 1021 DD/ 1451 TD/TT: Field Director: [facility] Radiology, Radiologist, - 11/03/2024 The [place] [id number] Cardiac Rehab Report Signed Patient: CHIARA EDUARDO MR#: [id number] : 1955 Acct:[id number] Age/Sex: 69 / F ADM Date: 10/05/24 Loc: CR Attending Dr: Abby Azevedo M.D. Ordering Physician: Abby Azevedo M.D. Date of Service: 10/23/24 Procedure(s): ITP Accession Number(s): [id number] cc: [facility] Test Date: 2024-10-23 Pat Name: CHIARA EDUARDO Department: Room: - Gender: Female Drafter Patent: : 1955 Requested By: ABBY AZEVEDO Order Number: [id number] Reading MD: HERIBERTO ESTEVEZ M.D. Interpretive Statements Patient may continue cardiac rehab as outlined in the treatment plan. Electronically Signed On 11-03-2024 10:21:15 EDT by HERIBERTO ESTEVEZ M.D. Dictated By: HERIBERTO ESTEVEZ Signed By: 11/03/24 1021 11/03/24 1021 DD/ 1451 TD/TT: Field Director: [facility] ITPOrdered By: Dick bhatia on 11-03-2024 [facility] [employer] Work Phone: Adam 11-01-2024 L - -------- Specimen: [id number] Received: 11/01/24 Status: SUMI Lorenz Num: [id number] Spec Type: Surgical Subm Dr: Lisa Perez MD Tissues: A Colon Biopsy (CECAL POLYP) B Colon Biopsy (ASCENDING POLYP) C Colon Biopsy (SIGMOID POLYP) Procedures: HE/6, Gross/Micro L4/3 -------- Age/ Patient Sex Location Account Attending Physician -------- Chiara Eduardo 69/F [id number] Lisa Perez MD -------- SPEC NUM: [id number] RECD: 11/01/24 STATUS: SUMI LORENZ NUM: [id number] PIPE: 11/01/[address] [facility] [address]: Lisa Perez MD ENTERED: 11/01/24 [facility] DR: BYRON TYPE: Surgical DEPT: S ENTERED BY: [id number] RECV BY: [id number] ORDERED: HE/6, Gross/Micro L4/3 ORDERED: HE/6, Gross/Micro [...] submitted in a single cassette. (1, ns, [id number]) Part B is received in formalin labeled with the patients name, date of , and ascending polyp are 2 bazzi-viveros, focally erythematous, friable polypoid fragments, 1.2 x 0.5 x 0.2 cm in aggregate. The specimen is filtered and entirely submitted in a single cassette. (1, ns, -------- Specimen: [id number] Received: 11/01/24 Status: SUMI Lorenz Num: [id number] Spec Type: Surgical Subm Dr: Lisa Perez MD Tissues: A Colon Biopsy (CECAL POLYP) B Colon Biopsy (ASCENDING POLYP) C Colon Biopsy (SIGMOID POLYP) Procedures: HE/6, Gross/Micro L4/3 -------- Patient: Chiara Eduardo [id number] (Continued) -------- Specimen: [id number] Received: 11/01/24 (Continued) Gross Description (Continued) Signed (signature on file) Abram Martinez Jr., MD 11/02/24 1154 -------- Specimen: [id number] Received: 11/01/24 Status: SUMI Lorenz Num: [id number] Spec Type: Surgical Subm Dr: Lisa Perez MD Tissues: A Colon Biopsy (CECAL POLYP) B Colon Biopsy (ASCENDING POLYP) C Colon Biopsy (SIGMOID POLYP) Procedures: HE/6, Gross/Micro L4/3 -------- Patient: Chiara Eduardo [id number] (Continued) -------- Specimen: [id number] Received: 11/01/24 (Continued) Gross Description (Continued) B) [...] The vegetative material is retained. (1, ns, C) CPT Codes 82323 x 3 -------- -------- Specimen: [id number] Received: 11/01/243732 Status: SUMI Lorenz Num: [id number] Spec Type: Surgical Subm Dr: Lisa Perez MD Tissues: A Colon Biopsy (CECAL POLYP) B Colon Biopsy (ASCENDING POLYP) C Colon Biopsy (SIGMOID POLYP) Procedures: HE/Gray German/Calderon L4/3 -------- Patient: Chiara Eduardo [id number] (Continued) -------- Signed (signature on file) Abram Martinez Jr., MD 11/02/24 1154 Normal [facility] ITPon 10-23-2024 Radiology Study observation (narrative) [facility] 36on 10-11-[address] Azevedo regarding labs from yesterday: MD Milli Luevano MA Serum creatinine has increased from above 2 to 1.51. Please repeat a BMP in 2 weeks. Thank you. I spoke with patient earlier today and asked her to get BMP in 2 weeks. Order faxed earlier today. [facility] 36on 10-10-2024 36 Patient's PCP, Nolvia Jimenez, TELEGRAPH REPEATER TECHNICIAN - called me regarding this patient. She saw her today in the office. Patient told Nolvia that she noticed increased SOB and LE edema when spironolactone was stopped last week. She did have repeat BMP tpday (scanned into chart). Nolvia did send her over just now to [facility] for CXR. Any recommendations? Normal [facility] ALL BASIC METABOLIC PANELon 10-10-2024 Anion gap [Moles/Vol] 12.5 mmol/L [facility] Calcium [Mass/Vol] 8.9 mg/dL 8.5 - 10. 1 mg/dL [facility] Chloride [Moles/Vol] 100 mmol/L 98 - 10 7 mmol/L [facility] CO2 [Moles/Vol] 27.6 mmol/L 21.0 - 32.0 mmol/L [facility] Creatinine [Mass/Vol] 1.51 mg/dL High 0.55 - 1.02 mg/dL [facility] GFR/1.73 sq M.predicted CKD-EPI (S/P/Bld) [Vol rate/Area] 41 Low >=60 mL/min/1.73m 2 [facility] Glucose [Mass/Vol] 100 mg/dL 74 - 106 mg/dL [facility] Interpretation and review of laboratory results Abnormal [facility] Potassium [Moles/Vol] 5.1 mmol/L 3.5 - 5.1 mmol/L [facility] Sodium [Moles/Vol] 135 mmol/L Low 136 - 145 mmol/L [facility] EGFR-NON AF AFGHAN 34 Low >=60 mL/min/1.73m 2 [facility] Urea nitrogen [Mass/Vol] 23 mg/dL High 7.0 - 18.0 mg/dL [facility] Urea nitrogen/Creatinine [Mass ratio] 15.2 mg/mg [facility] XR ABDOMEN 1Von 10-10-[address] [address] XRay Report Signed Patient: CHIARA EDUARDO MR#: [id number] : 1955 Acct:[id number] Age/Sex: 69 / F ADM Date: 10/10/24 Loc: [facility] Attending Dr: Nolvia Jimenez NP Ordering Physician: Nolvia Jimenez NP Date of Service: 10/10/24 Procedure(s): XR abdomen 1V Accession Number(s): [id number] cc: Nolvia Jimenez NP [place] [id number] Patient Name: CHIARA EDUARDO MRN: [id number] date: 1955 Sex: F Assigned Patient Location: [facility] Current Patient Location: [facility] Accession/Order Number: [id number] Exam Date: 10/10/2024 17:01 Report Date: 10/10/2024 [...] Garcia M.D. 10/10/2024 5:03 PM Dictation Location: [place] [address] Electronically authenticated by: [id number] Y Date: 10/10/2024 17:03 Dictated By: Taihr Garcia M.D. Signed By: 10/10/241704 DD/ 02 TD/TT: Field Director: [facility] Radiology, Radiologist, MD - 10/10/[address] [address] XRay Report Signed Patient: CHIARA EDUARDO MR#: [id number] : 1955 Acct:[id number] Age/Sex: 69 / F ADM Date: 10/10/24 Loc: RAD Attending Dr: Nolvia Jimenez NP Ordering Physician: Nolvia Jimenez NP Date of Service: 10/10/24 Procedure(s): XR abdomen 1V Accession Number(s): [id number] cc: Nolvia Jimenez NP [place] [address] Patient Name: CHIARA EDUARDO MRN: [facility]:[id number] date: 1955 Sex: F Assigned Patient Location: [facility] Current Patient Location: [facility] Accession/Order Number: [id number] Exam Date: 10/10/2024 17:01 Report Date: 10/10/2024 [...] Garcia M.D. 10/10/2024 5:03 PM Dictation Location: [place] [address] Electronically authenticated by: [id number] Y Date: 10/10/2024 17:03 Dictated By: Tahir Garcia M.D. Signed By: 10/10/241704 DD/ 02 TD/TT: Field Director: [facility] Radiology Study observation (narrative) [facility] XR ABDOMEN 1VOrdered By: Rubio iologist Radiology on 10-10-2024 [facility] [employer] Work Phone: XR CHEST 2Von 10-10-2024 [place] [address] XRay Report Signed Patient: CHIARA EDAURDO MR#: [id number] : 1955 Acct:[id number] Age/Sex: 69 / F ADM Date: 10/10/24 Loc: RUBIO Attending Dr: Nolvia Jimenez NP Ordering Physician: Nolvia Jimenez NP Date of Service: 10/10/24 Procedure(s): XR chest 2V Accession Number(s): [id number] cc: Nolvia Jimenez NP [place] [id number] Patient Name: CHIARA EDUARDO MRN: [id number] date: 1955 Sex: F Assigned Patient Location: [facility] Current Patient Location: [facility] Accession/Order Number: [id number] Exam Date: 10/10/2024 17:03 Report Date: 10/10/2024 [...] Garcia M.D. 10/10/2024 5:04 PM Dictation Location: [place] [address] Electronically authenticated by: [id number] Y Date: 10/10/2024 17:04 Dictated By: Tahir Garcia M.D. Signed By: 10/10/241705 DD/ 03 TD/TT: Field Director: [facility] Radiology, Radiologist, - 10/10/2024 [place] [address] XRay Report Signed Patient: CHIARA EDUARDO MR#: [id number] : 1955 Acct:[id number] Age/Sex: 69 / F ADM Date: 10/10/24 Loc: RAD Attending Dr: Nolvia Jimenez NP Ordering Physician: Nolvia Jimenez NP Date of Service: 10/10/24 Procedure(s): XR chest 2V Accession Number(s): [id number] cc: Nolvia Jimenez NP [place] [address] Patient Name: CHIARA EDUARDO MRN: [facility]:[id number] date: 1955 Sex: F Assigned Patient Location: [facility] Current Patient Location: [facility] Accession/Order Number: [id number] Exam Date: 10/10/2024 17:03 Report Date: 10/10/2024 [...] Garcia M.D. 10/10/2024 5:04 PM Dictation Location: [place] [address] Electronically authenticated by: [id number] Y Date: 10/10/2024 17:04 Dictated By: Tahir Garcia M.D. Signed By: 10/10/24 1706 DD/ 170 TD/TT: [facility] Radiology Study observation (narrative) [facility] XR CHEST 2VOrdered By: Radio logist Radiology on 10-10-2024 [employer] Work Phone: ITPon 10-04-2024 [place] [address] Cardiac Rehab Report Signed Patient: CHIARA EDUARDO MR#: [id number] : 1955 Acct:[id number] Age/Sex: 69 / F ADM Date: 10/03/24 Loc: CR Attending Dr: Abby Azevedo M.D. Ordering Physician: Luis Coughlin D.O. Date of Service: 10/02/24 Procedure(s): ITP Accession Number(s): [id number] cc: The [facility] Test Date: 2024-10-02 Pat Name: CHIARA EDUARDO Department: Room: - Gender: Female Drafter Patent: : 1955 Requested By: Luis Coughlin Order Number: [id number] Reading MD: Luis Coughlin Interpretive Statements Okay to proceed with outlined treatment plan. Electronically Signed On 10-04-2024 10:08:06 EDT by Luis Coughlin Dictated By: Luis Coughlin D.O. Signed By: 10/04/24 1008 10/04/24 1008 DD/ 1145 TD/TT: Field Director: [facility] Radiology, Radiologist, MD - 10/04/2024 The [place] [id number] Cardiac Rehab Report Signed Patient: CHIARA EDUARDO MR#: [id number] : 1955 Acct:[id number] Age/Sex: 69 / F ADM Date: 10/03/24 Loc: CR Attending Dr: Abby Azevedo M.D. Ordering Physician: Luis Coughlin D.O. Date of Service: 10/02/24 Procedure(s): ITP Accession Number(s): [id number] cc: [facility] Test Date: 2024-10-02 Pat Name: CHIARA EDUARDO Department: Room: - Gender: Female Drafter Patent: : 1955 Requested By: Luis Coughlin Order Number: [id number] Dane MD: Luis Coughlin Interpretive Statements Okay to proceed with outlined treatment plan. Electronically Signed On 10-04-2024 10:08:06 EDT by Luis Coughlin Dictated By: Luis Coughlin D.O. Signed By: 10/04/24 1008 10/04/24 1008 DD/ 1145 TD/TT: Field Director: [place] [address] Cardiac Rehab Report Signed Patient: CHIARA EDUARDO MR#: [id number] : 1955 Acct:[id number] Age/Sex: 69 / F ADM Date: 10/03/24 Loc: CR Attending Dr: Abby Azevedo M.D. Ordering Physician: Luis Coughlin D.O. Date of Service: 10/03/24 Procedure(s): ITP Accession Number(s): [id number] cc: [facility] Test Date: 2024-10-03 Pat Name: CHIARA EDUARDO Department: Room: - Gender: Female Drafter Patent: : 1955 Requested By: Luis Coughlin Order Number: [id number] Dane MD: Luis Coughlin Interpretive Statements Okay to proceed with outlined treatment plan. Electronically Signed On 10-04-2024 10:08:18 EDT by Luis Coughlin Dictated By: Luis Coughlin D.O. Signed By: 10/04/24 1008 10/04/24 1008 DD/ 1245 TD/TT: Field Director: [facility] Radiology, Radiologist, - 10/04/2024 [place] [address] Cardiac Rehab Report Signed Patient: CHIARA EDUARDO MR#: [id number] : 1955 Acct:[id number] Age/Sex: 69 / F ADM Date: 10/03/24 Loc: CR Attending Dr: Abby Azevedo M.D. Ordering Physician: Luis Coughlin D.O. Date of Service: 10/03/24 Procedure(s): ITP Accession Number(s): [id number] cc: [facility] Test Date: 2024-10-03 Pat Name: CHIARA EDUARDO Department: Room: - Gender: Female Drafter Patent: : 1955 Requested By: Luis Coughlin Order Number: [id number] Reading MD: Luis Coughlin Interpretive Statements Okay to proceed with outlined treatment plan. Electronically Signed On 10-04-2024 10:08:18 EDT by Luis Coughlin Dictated By: Luis Coughlin D.O. Signed By: 10/04/24 1008 10/04/24 1008 DD/ 1245 TD/TT: Field Director: [employer] No Panel InformationOrdered By: Radiologist Radiology on 10-04-2024 [employer] Work Phone: 36on 10-03-2024 36 Spoke with patient and made her aware to stop spironolactone per Dr. Azevedo. She verbalized understanding and will do so. She will have repeat BMP on Wednesday, 10/09. Order faxed to [facility]. [facility] 36 Regarding lab result s from [...] her to stop both that and Farxiga? [facility] ALL BASIC METABOLIC PANELon 10-03-2024 Anion gap [Moles/Vol] 11.8 mmol/L [facility] Calcium [Mass/Vol] 9.1 mg/dL 8.5 - 10. 1 mg/dL [facility] Chloride [Moles/Vol] 96 mmol/L Low 98 - 10 7 mmol/L [facility] CO2 [Moles/Vol] 29.1 mmol/L 21.0 - 32.0 mmol/L [facility] Creatinine [Mass/Vol] 2.01 mg/dL High 0.55 - 1.02 mg/dL [facility] GFR/1.73 sq M.predicted CKD-EPI (S/P/Bld) [Vol rate/Area] 30 Low >=60 mL/min/1.73m 2 [facility] Glucose [Mass/Vol] 115 mg/dL High 74 - 106 mg/dL [facility] Interpretation and review of laboratory results Abnormal [facility] Potassium [Moles/Vol] 4.9 mmol/L 3.5 - 5.1 mmol/L [facility] Sodium [Moles/Vol] 132 mmol/L Low 136 - 145 mmol/L [facility] TBH EGFR-NON AF AFGHAN 24 Low >=60 mL/min/1.73m 2 [facility] Urea nitrogen [Mass/Vol] 31 mg/dL High 7.0 - 18.0 mg/dL [facility] Urea nitrogen/Creatinine [Mass ratio] 15.4 mg/mg [facility] Study observation (narrative) [facility] Telephoneon 10-03-2024 Telephone [phone] Chiara Eduardo 1955 F Date Provider Department Center 10/03/2024 MILLI SMITH JUSTIN Garcia Family History Problem Relation Age of Onset Stroke Mother Kidney disease Father Coronary artery disease Paternal Grandfather Family Status - Relation Status Age at Mother Father Paternal Grandfather [facility] ITPon 10-02-2024 Radiology Study observation (narrative) [facility] Follow-Upon 09-22-2024 Follow-Up [id number] Chiara Eduardo 1955 F Date Provider Department Center 09/22/2024 ZACK GREENE Family History Problem Relation Age of Onset Stroke Mother Kidney disease Father Coronary artery disease Paternal Grandfather Family Status - Relation Status Age at Mother Father Paternal Grandfather Level of Service:85454 [place] OFFICE/OUTPATIENT ESTABLISHED MOD MDM 30 MIN Normal [facility] 30on 09-05-2024 30 The patient is [...] comfort level Outcome: Adequate for Discharge Normal [facility] 30 Government Employee went bedside and talked with patient about home oxygen. Government Employee asked if patient has any preference of home oxygen company. Patient stated she does not, and is agreeable to be set up with [employer]. Government Employee called and talked with with Keny from [employer], Keny Confirmed they service patients area, and take patients insurance. Keny told service writer advisor to fax over Clinicals and provide patient a portable tank. -- Clinicals gathered and faxed over at 11:25 am -- Government Employee received confirmation fax. Government Employee called [employer] office and talked with Brock. Government Employee inform Brock that clinicals were faxed over and confirmation fax was received. Brock stated patient is not in their system yet but will keep a look of for it and will call patient back as soon as patient gets put into their system. Government Employee provided call back number. Government Employee called and talked to Nicole from [employer], She confirmed that they have everything they need and that service writer advisor can give patient a portable oxygen tank to go home with, and for service writer advisor to instruction patient to call them when she leaves the hospital. Government Employee went bedside and provided portable oxygen tank to patient, Government Employee educated patient on portable oxygen tank and on the need to call [facility] as soon as she leave the hospital. Patient stated she understands and had no other questions at this time. ------ Government Employee received call from [employer] asking for discharge summery to be faxed over as well. Government Employee faxed over discharge summery. Government Employee received confirmation fax. Government Employee called Jaqueline from [employer] to confirm they got discharge summery. Government Employee was told that it hasn't arrived in there system yet but it can take some time. Government Employee informed Jaqueline that patient has discharged and that patient will need equipment delivered today. Jaqueline stated they will still be able to deliver oxygen equipment today, they just need the Discharge summery as well. Government Employee provided writers call back number to Jaqueline, if they need anything else. Government Employee called and talked with Brock at [employer] who confirmed they got the discharge summery and everything is set to go for patient to get her home oxygen equipment tonight. Normal [facility] BASIC METABOLIC PANELon 06-1 0 Anion gap [Moles/Vol] 9 mmol/L Normal 7-20 [facility] Comment on above: Performed By: #### L [id number] #### [facility] [[email or web address] LAB (BEAKER) [address] [place] [address] Calcium [Mass/Vol] 8.1 mg/dL Low 8.6-10.3 [facility] Comment on above: Performed By: #### L [id number] #### [facility] [[email or web address] LAB (BEAKER) [address] [place] [address] Chloride [Moles/Vol] 105 mmol/L Normal 98-107 [facility] Comment on above: Performed By: #### L [id number] #### [facility] [[email or web address] [address] [place] [address] CO2 [Moles/Vol] 24 mmol/L Normal 21-31 [facility] Comment on above: Performed By: #### L [id number] #### [facility] [[email or web address] LAB ([facility]) [address] [place] [address] Creatinine [Mass/Vol] 1.24 mg/dL High 0.60-1.20 [facility] Comment on above: Performed By: #### L [id number] #### [facility] [[email or web address] LAB ([facility]) [address] [place] [address] GLOMERULAR FILTRATION RATE ML/MIN/1.73 SQ M.PREDICTED 46.5 mL/min/1.73m*2 Low >60.0 [facility] Comment on above: Result Comment: [facility]???s estimated glomerular filtration rate (eGFR) will [...] individuals. Performed By: #### L [id number] #### [facility] [[email or web address] LAB ([facility]) [address] [place] [address] Glucose [Mass/Vol] 92 mg/dL Normal 70-100 [facility] Comment on above: Performed By: #### L [id number] #### [facility] [[email or web address] LAB ([facility]) [address] [place] [address] Potassium [Moles/Vol] 4.2 mmol/L Normal 3.5-5.1 [facility] Comment on above: Performed By: #### L [id number] #### [facility] [[email or web address] [address] [place] [address] Sodium [Moles/Vol] 134 mmol/L Low 136-145 [facility] Comment on above: Performed By: #### L [id number] #### [facility] [[email or web address] LAB ([facility] [address] [place] [address] Urea nitrogen [Mass/Vol] 26 mg/dL High 7-25 [facility] Comment on above: Performed By: #### L [id number] #### [facility] [[email or web address] LAB ([facility] [address] [place] [address] UREA NITROGEN/CREATININE (MASS RATIO) IN SER/PLAS 21.0 Normal [facility] Comment on above: Performed By: #### L [id number] #### [facility] [[email or web address] LAB ([facility]) [address] [place] [address] CBCon 09-05-2024 Erythrocyte distribution width (RBC) [Ratio] 14.0 % Normal 11.5-15.0 [facility] Comment on above: Performed By: #### L [id number] #### [facility] [[email or web address]] LAB ([facility]) [address] [place] [address] ERYTHROCYTE MEAN CORPUSCULAR HEMOGLOBIN CONCENTRATION (G/DL) BY AUTOMATED 32.0 g/dL Normal 32.0-35.0 [facility] Comment on above: Performed By: #### L [id number] #### [facility] [[email or web address]] LAB ([facility]) [address] [place] [address] Hematocrit (Bld) [Volume fraction] 31.9 % Low 36.0-45.0 [facility] Comment on above: Performed By: #### L [id number] #### [facility] [[email or web address] LAB ([facility] [address] [place] [address] Hemoglobin (Bld) [Mass/Vol] 10.2 g/dL Low 12.0-15.0 [facility] Comment on above: Performed By: #### L [id number] #### [facility] [[email or web address]] LAB (BEAKER) [address] [place] [address] MCH (RBC) [Entitic mass] 30.8 pg Normal 27.0-33.0 [facility] Comment on above: Performed By: #### L [id number] #### [facility] [[email or web address] [address] [place] [address] MCV (RBC) [Entitic vol] 96.4 fL Normal 82.0-98.0 [facility] Comment on above: Performed By: #### L [id number] #### [facility] [[email or web address] LAB ([facility]) [address] [facility] [place] [address] PLATELETS (10*3/UL) IN BLOOD AUTOMATED COUNT 247 10*3/uL Normal 150-400 [facility] Comment on above: Performed By: #### L [id number] #### [facility] [[email or web address] LAB ([facility]) [address] [place] [address] RBC (Bld) [#/Vol] 3.31 10*6/uL Low 3.80-5.00 [facility] Comment on above: Performed By: #### L [id number] #### [facility] [[email or web address] LAB ([facility]) [address] [place] [address] WBC (Bld) [#/Vol] 17.69 10*3/uL High 4.00-10.60 [facility] Comment on above: Performed By: #### L [id number] #### [facility] [[email or web address] LAB ([facility]) [address] [place] [address] NURSNOTEon 09-05-2024 NURSNOTE The findings from this [...] at this time. Dx:COPD 99 MONTHS Normal [facility] 30on 09-04-2024 30 The patient is Moderately Stable - Low risk of patient condition declining or worsening The patient's goals for the shift include comfort/rest The clinical goals for the shift include stable vital signs Problem: Pain - Adult Goal: Verbalizes/displays adequate comfort level or baseline comfort level Outcome: Progressing Flowsheets (Taken 09/04/2024 1955) Verbalizes/displays adequate comfort level or baseline comfort [...] change or resting period as needed Normal [facility] 30 The patient is Moderately Stable [...] optimal ventilation and oxygenation Outcome: Progressing Normal [facility] ANTI-XA (HEPARIN LEVEL)on HEPARIN UNFRACTIONATED (U/ML) IN PPP BY CHROMOGENIC METHOD <0.10 Invalid Interpretation Code 0.3-0.7 [facility] Comment on above: Order Comment: Check anti-Xa level every 6 hours while on heparin infusion, or per protocol. Result Comment: [place] roxaban and Apixaban will interfere with the anti Xa assay used to monitor UFH and LMWH. Performed By: #### L [id number] #### [facility] [[email or web address]] LAB (BEAKER) [address] [place] [address] HEPARIN UNFRACTIONATED (U/ML) IN PPP BY CHROMOGENIC METHOD 0.61 IU/mL Normal 0.3-0.7 [facility] Comment on above: Order Comment: Check anti-Xa level every 6 hours while on heparin infusion, or per protocol. Result Comment: [place] roxaban and Apixaban will interfere with the anti Xa assay used to monitor UFH and LMWH. Performed By: #### L [id number] #### [facility] [[email or web address]] LAB (BEAKER) [address] [place] [address] HEPARIN UNFRACTIONATED (U/ML) IN PPP BY CHROMOGENIC METHOD >1.00 Critically high 0.3-0.7 [facility] Comment on above: Order Comment: Check anti-Xa level every 6 hours while on heparin infusion, or per protocol. Result Comment: [place] roxaban and Apixaban will interfere with the anti Xa assay used to monitor UFH and LMWH. Performed By: #### L [id number] #### [facility] LAB (BEAKER) [address] [place] [address] ARTERIAL BLOOD GAS WITH IONI ZED CALCIUMon 09-04-2024 Base excess Calc (Bld) [Moles/Vol] -1.8000 mmol/L Normal -2.0-3.0 [facility] Comment on above: Performed By: #### L [id number] ####[facility] RESPIRATORY [id number] CALCIUM IONIZED (MMOL/L) IN BLOOD 1.20 mmol/L Normal 1.15-1.33 [facility] Comment on above: Performed By: #### L [id number] ####[facility] RESPIRATORY [id number] [place] [id number] [facility] CO2 (Bld) [Partial pressure] 42 mm[Hg] Normal 35-48 [facility] Comment on above: Performed By: #### L [id number] ####[facility] RESPIRATORY [id number] [place] [id number] [facility] FIO2 40 % Normal [facility] Comment on above: Performed By: #### L [id number] ####[facility] RESPIRATORY [id number] [place] [address] [facility] HCO3 (Bld) [Moles/Vol] 23.7 mmol/L Normal 21.0-28.0 [facility] Comment on above: Performed By: #### L [id number] ####[facility] RESPIRATORY [id number] [place] [id number] [facility] Oxygen (Bld) [Partial pressure] 92 mm[Hg] Normal 83-100 [facility] Comment on above: Performed By: #### L [id number] ####[facility] RESPIRATORY [id number] [place] [id number] [facility] OXYGEN SATURATION (%) IN ARTERIAL BLOOD 97.9 % Normal 94.0-98.0 [facility] Comment on above: Performed By: #### L [id number] ####[facility] RESPIRATORY [id number] [place] [address] [place] pH (Bld) 7.36 [pH] Normal 7.35-7.45 [facility] Comment on above: Performed By: #### L [id number] ####[facility] RESPIRATORY [id number] [place] [address] [facility] SOURCE OF OXYGEN High flow nasal cannula Normal [facility] Comment on above: Performed By: #### L [id number] ####[facility] RESPIRATORY [id number] [place] [address] [facility] BASIC METABOLIC PANELon 06-0 Anion gap [Moles/Vol] 10 mmol/L Normal 7-20 [facility] Comment on above: Performed By: #### L [id number] ####[facility] LAB (BEAKER)[address] [place] [address] Calcium [Mass/Vol] 7.7 mg/dL Low 8.6-10.3 [facility] Comment on above: Performed By: #### L [id number] ####[facility] LAB (BEAKER)[address] [place] [address] Chloride [Moles/Vol] 105 mmol/L Normal 98-107 [facility] Comment on above: Performed By: #### L AB15 ####[facility] LAB (BEAKER)[address] [place] [address] CO2 [Moles/Vol] 23 mmol/L Normal 21-31 [facility] Comment on above: Performed By: #### L AB15 ####[facility] LAB (BEAKER)[address] [place] [address] Creatinine [Mass/Vol] 1.21 mg/dL High 0.60-1.20 [facility] Comment on above: Performed By: #### L AB15 ####[facility] LAB (BEAKER)[address] [place] [address] GLOMERULAR FILTRATION RATE ML/MIN/1.73 SQ M.PREDICTED 47.9 mL/min/1.73m*2 Low >60.0 [facility] Comment on above: Result Comment: [facility]???s estimated glomerular filtration rate (eGFR) will [...] of individuals. Performed By: #### L AB15 ####[facility] [[email or web address]] LAB ([facility])[address] [place] [address] Glucose [Mass/Vol] 113 mg/dL High 70-100 [facility] Comment on above: Performed By: #### L AB15 ####[facility] [[email or web address]] LAB ([facility])[address] [place] [address] Potassium [Moles/Vol] 4.5 mmol/L Normal 3.5-5.1 [facility] Comment on above: Performed By: #### L AB15 ####[facility] [[email or web address] LAB ([facility])[address] [place] [address] Sodium [Moles/Vol] 133 mmol/L Low 136-145 [facility] Comment on above: Performed By: #### L AB15 ####[facility] [[email or web address] [place] [address] Urea nitrogen [Mass/Vol] 24 mg/dL Normal 7-25 [facility] Comment on above: Performed By: #### L AB15 ####[facility] [[email or web address]] LAB (BEAKER)[address] [place] [address] UREA NITROGEN/CREATININE (MASS RATIO) IN SER/PLAS 19.8 Normal [facility] Comment on above: Performed By: #### L AB15 ####[facility] [[email or web address]] LAB (BEAKER)[address] [place] [address] BLOOD CULTUREon 09-04-2024 Bacteria identified Cx Nom (Bld) No growth at 5 days Normal [facility] Comment on above: Order Comment: From a different site than #1. Performed By: #### L [id number] ####[facility] [[email or web address]] LAB ([facility])[address] [place] [address] Bacteria identified Cx Nom (Bld) No growth at 5 days Normal [facility] Comment on above: Performed By: #### L [id number] ####[facility] [[email or web address] LAB ([facility])[address] [place] [address] CBCon 09-04-2024 Erythrocyte distribution width (RBC) [Ratio] 14.0 % Normal 11.5-15.0 [facility] Comment on above: Performed By: #### L [id number] ####[facility] [[email or web address]] LAB ([facility])[address] [place] [address] ERYTHROCYTE MEAN CORPUSCULAR HEMOGLOBIN CONCENTRATION (G/DL) BY AUTOMATED 32.5 g/dL Normal 32.0-35.0 [facility] Comment on above: Performed By: #### L [id number] ####[facility] [[email or web address] LAB ([facility])[address] [address] Hematocrit (Bld) [Volume fraction] 32.0 % Low 36.0-45.0 [facility] Comment on above: Performed By: #### L [id number] ####[facility] [[email or web address] LAB ([facility])[address] [address] Hemoglobin (Bld) [Mass/Vol] 10.4 g/dL Low 12.0-15.0 [facility] Comment on above: Performed By: #### L [id number] ####[facility] [[email or web address] LAB ([facility] [address] MCH (RBC) [Entitic mass] 31.4 pg Normal 27.0-33.0 [facility] Comment on above: Performed By: #### L [id number] ####[facility] [[email or web address] LAB ([facility] [place] [address] MCV (RBC) [Entitic vol] 96.7 fL Normal 82.0-98.0 [facility] Comment on above: Performed By: #### L [id number] ####[facility] [[email or web address] LAB ([facility])[address] [place] [address] PLATELETS (10*3/UL) IN BLOOD AUTOMATED COUNT 227 10*3/uL Normal 150-400 [facility] Comment on above: Performed By: #### L [id number] ####[facility] [[email or web address] LAB ([facility])[address] [place] [address] RBC (Bld) [#/Vol] 3.31 10*6/uL Low 3.80-5.00 [facility] Comment on above: Performed By: #### L [id number] ####[facility] [[email or web address] LAB ([facility])[address] [place] [address] WBC (Bld) [#/Vol] 19.91 10*3/uL High 4.00-10.60 [facility] Comment on above: Performed By: #### L [id number] ####[facility] [[email or web address] LAB ([facility])[address] [place] [address] CONSULTon 09-04-2024 CONSULT - Attestation signed by [...] We suspect this is a type 2 CA and, if she remains clinically stable, recommend no further cardiac evaluation at this time. We do recommend you continue aspirin, isosorbide, toprol XL, atorvastatin and other cardiac medications. Cardiology Consult Note Reason for Consult: NSTEMI HPI: Chiara Eduardo is a 69 y.o. female with a history of coronary artery disease, prior stent placement, COPD, History of acute inferior wall CA, HT, HLP, CKD, obesity presented with shortness of breath Cardiology consulted for elevated troponin and SOB Patient presented with worsening shortness of breath. She presented to [facility], found to have right lower lobe pneumonia, with increasing troponin to 78.9, lactic of 3.2, patient was started on heparin drip, antibiotics, and was sent to [facility] for further workup. Cardiac history:history of [...] kidney disease, COPD (chronic obstructive pulmonary disease) ([facility]), Coronary artery disease, Coronary artery disease involving [place] coronary artery of [place] heart without angina pectoris (12/28/2016), Essential hypertension [...] Daily atorvastatin (LIPITOR) 80 mg, oral, Daily cwkbqhflhb-bdtjcwnf-d ormoterol (Breztri Aerosphere) 160-9-4.8 mcg/actuation HFA aerosol [...] Medication Si (more content not included)... Normal [facility] HIGH SENSITIVITY CRPon 09-04 CRP, HIGH SENSITIVITY >300.0 High <=3.0 [facility] Comment on above: Result Comment: INTE [...] 3.0 mg/L ... high risk Performed By: [employer] [address] [place] [address] Dog Handler Or Trainer: Amol Tran MD, PhD CLIA Number: [id number] Performed By: #### L [id number] ####[facility] (BEAKER)[address] [place] [address] HIGH SENSITIVITY TROPONIN Io n 09-04-2024 HS TROPONIN I (NG/L) 1053 ng/L Critically high <15 [facility] Comment on above: Performed By: #### L [id number] ####[facility] [[email or web address]] LAB (BEAKER)[address] [place] [address] LEGIONELLA ANTIGEN, URINEon 09-04-2024 LEGIONELLA AG, UR Negative Normal NEG [facility] Comment on above: Result Comment: L. p neumophila serogroup 1 antigen not detected. A negative result does not exclude infection with Leginella pnemophila serogroup 1 nor does it rule out other microbial-caused respiratory infections of disease caused by other serogroups of Legionella pneumophila. Test Performed by [employer] [address] [place] [address] - Released 09/04/2024 20:22 Performed By: #### L [id number] ####[facility] [id number] [place] [address] MAGNESIUMon 09-04-2024 Magnesium [Mass/Vol] 1.8 mg/dL Low 1.9-2.7 [facility] Comment on above: Performed By: #### L [id number] #### [facility] [[email or web address]] LAB ([facility]ER) [address] [place] [address] MYCOPLASMA PNEUMONIAE PCRon 09-04-2024 MYCOPLASMA PNEUMONIAE PCR Not detected Normal [facility] Comment on above: Result Comment: NOT DETECTED - A negative result does not rule out the presence of PCR inhibitors in the patient specimen or assay specific nucleic acid in concentrations below the level of detection by the assay. INTERPRETIVE INFORMATION: Mycoplasma pneumoniae by PCR This test was developed and its performance characteristics determined by [employer]. It has not been cleared or approved by the US Food and Drug Administration. This test was performed in a CLIA certified laboratory and is intended for clinical purposes. Performed By: [employer] [address] [place] [address] Dog Handler Or Trainer: Amol Tran MD, PhD CLIA Number: [id number] Performed By: #### L [id number] ####[facility] ([facility])[address] [place] [address] MYCOPLASMA PNEUMONIAE SOURCE Not Provided Normal [facility] Comment on above: Result Comment: Spec imen source was not provided. Please refer to the [facility] Test Directory for validated specimen source information: [email or web address]. Interpret results with caution. Performed By: #### L [id number] ####[facility] ([facility])[address] [place] [address] SEDIMENTATION RATEon 025 SEDIMENTATION RATE, ERYTHROCYTE 21 mm/hr Normal <30 [facility] Comment on above: Performed By: #### L [id number] #### [facility] [[email or web address]] LAB (BE[facility]ER) [address] [place] [address] 30on 09-03-2024 30 Problem: Pain - Adul [...] and behaviors that affect risk of falls [place] fall precautions as indicated by assessment Educate [...] for the shift include VSS; safety Normal [facility] 30 The patient is Moderately Stable - Low risk of patient condition declining or worsening The patient's goals for the shift include Comfort The clinical goals for the shift include VSS, safety Normal [facility] APTTon 09-03-2024 ACTIVATED PARTIAL THROMBOPLASTIN TIME IN PPP BY COAGULATION ASSAY 49.3 Seconds High 25.0-35.0 [facility] Comment on above: Order Comment: Basel ine aPTT before initiating heparin infusion. Result Comment: Clin ical significance of the APTT is questionable in the presence of heparin. Performed By: #### L [id number] #### [facility] [[email or web address]] LAB ([facility]) [address] [place] [address] B-TYPE NATRIURETIC PEPTIDEon 09-03-2024 Natriuretic peptide B (Bld) [Mass/Vol] 708 pg/mL High 0-100 [facility] Comment on above: Performed By: #### L [id number] ####[facility] [[email or web address]] LAB ([facility])[address] [place] [address] CBC WITH AUTO DIFFERENTIALon 09-03-2024 Basophils (Bld) [#/Vol] 0.03 10*3/uL Normal 0.00-0.20 [facility] Comment on above: Performed By: #### L [id number] ####[facility] [[email or web address]] LAB ([facility])[address] [place] [address] Basophils/100 WBC (Bld) 0.2 % Normal 0.0-1.0 [facility] Comment on above: Performed By: #### L [id number] ####[facility] [[email or web address]] LAB ([facility])[address] [place] [address] Eosinophils (Bld) [#/Vol] 0.24 10*3/uL Normal 0.00-0.50 [facility] Comment on above: Performed By: #### L [id number] ####[facility] [[email or web address] ([facility] [place] [address] Eosinophils/100 WBC (Bld) 1.2 % Normal 0.0-6.0 [facility] Comment on above: Performed By: #### L [id number] ####[facility] [[email or web address]] LAB ([facility])[address] [place] [address] Erythrocyte distribution width (RBC) [Ratio] 13.8 % Normal 11.5-15.0 [facility] Comment on above: Performed By: #### L [id number] ####[facility] [[email or web address] LAB ([facility])[address] [place] [address] ERYTHROCYTE MEAN CORPUSCULAR HEMOGLOBIN CONCENTRATION (G/DL) BY AUTOMATED 32.1 g/dL Normal 32.0-35.0 [facility] Comment on above: Performed By: #### L [id number] ####[facility] [[email or web address] LAB ([facility] [place] [address] Hematocrit (Bld) [Volume fraction] 38.3 % Normal 36.0-45.0 [facility] Comment on above: Performed By: #### L [id number] ####[facility] [[email or web address]] LAB (BEAKER)[address] [place] [address] Hemoglobin (Bld) [Mass/Vol] 12.3 g/dL Normal 12.0-15.0 [facility] Comment on above: Performed By: #### L [id number] ####[facility] [[email or web address] LAB ([facility] [place] [address] Immature granulocytes (Bld) [#/Vol] 0.10 10*3/uL Normal 0.00-0.20 [facility] Comment on above: Performed By: #### L [id number] ####[facility] [[email or web address]] LAB (BE[facility]ER)[address] [place] [address] Immature granulocytes/100 WBC (Bld) 0.5 % Normal 0.0-1.0 [facility] Comment on above: Performed By: #### L [id number] ####[facility] (BEAKER)[address] [place] [address] Lymphocytes (Bld) [#/Vol] 0.28 10*3/uL Low 1.20-4.00 [facility] Comment on above: Performed By: #### L [id number] ####[facility] [[email or web address] ([facility] [place] [address] Lymphocytes/100 WBC (Bld) 1.4 % Low 20.0-45.0 [facility] Comment on above: Performed By: #### L [id number] ####[facility] [[email or web address]] LAB ([facility])[address] [place] [address] MCH (RBC) [Entitic mass] 31.1 pg Normal 27.0-33.0 [facility] Comment on above: Performed By: #### L [id number] ####[facility] [[email or web address] LAB ([facility])[address] [place] [address] MCV (RBC) [Entitic vol] 97.0 fL Normal 82.0-98.0 [facility] Comment on above: Performed By: #### L [id number] ####[facility] [[email or web address]] LAB ([facility])[address] [place] [address] Monocytes (Bld) [#/Vol] 0.67 10*3/uL Normal 0.10-1.00 [facility] Comment on above: Performed By: #### L [id number] ####[facility] [[email or web address]] LAB (BEAKER)[address] [place] [address] Monocytes/100 WBC (Bld) 3.4 % Low 5.0-12.0 [facility] Comment on above: Performed By: #### L [id number] ####[facility] [[email or web address]] LAB (BE[facility]ER)[address] [place] [address] Neutrophils (Bld) [#/Vol] 18.60 10*3/uL High 1.60-7.60 [facility] Comment on above: Performed By: #### L [id number] ####[facility] [[email or web address] LAB ([facility])[address] [place] [address] Neutrophils/100 WBC (Bld) 93.3 % High 40.0-72.0 [facility] Comment on above: Performed By: #### L [id number] ####[facility] [[email or web address] LAB ([facility])[address] [place] [address] NRBC (PER 100 WBCS) BY AUTOMATED COUNT 0.0 % Normal 0 [facility] Comment on above: Performed By: #### L [id number] ####[facility] [[email or web address]] LAB ([facility])[address] [place] [address] PLATELETS (10*3/UL) IN BLOOD AUTOMATED COUNT 272 10*3/uL Normal 150-400 [facility] Comment on above: Performed By: #### L [id number] ####[facility] [[email or web address]] LAB ([facility])[address] [place] [address] RBC (Bld) [#/Vol] 3.95 10*6/uL Normal 3.80-5.00 [facility] Comment on above: Performed By: #### L [id number] ####[facility] [[email or web address]] LAB ([facility])[address] [place] [address] WBC (Bld) [#/Vol] 19.92 10*3/uL High 4.00-10.60 [facility] Comment on above: Performed By: #### L [id number] ####[facility] [[email or web address] LAB ([facility])[address] [place] [address] COMPREHENSIVE METABOLIC PANE Adam 09-03-2024 Albumin [Mass/Vol] 3.6 g/dL Normal 3.5-5.7 [facility] Comment on above: Performed By: #### L [id number] #### [facility] [[email or web address] LAB ([facility]) [address] [place] [address] ALP [Catalytic activity/Vol] 54 U/L Normal 34-104 [facility] Comment on above: Performed By: #### L [id number] #### [facility] [[email or web address] LAB ([facility]) [address] [place] [address] ALT [Catalytic activity/Vol] 19 U/L Normal 7-52 [facility] Comment on above: Performed By: #### L [id number] #### [facility] [[email or web address] LAB ([facility]) [address] [place] [address] Anion gap [Moles/Vol] 11 mmol/L Normal 7-20 [facility] Comment on above: Performed By: #### L [id number] #### [facility] [[email or web address] LAB ([facility]) [address] [place] [address] AST [Catalytic activity/Vol] 25 U/L Normal 13-39 [facility] Comment on above: Performed By: #### L [id number] #### [facility] [[email or web address] LAB ([facility]) [address] [place] [address] Bilirubin [Mass/Vol] 0.4 mg/dL Normal 0.3-1.0 [facility] Comment on above: Performed By: #### L [id number] #### [facility] [[email or web address] LAB ([facility]) [address] [place] [address] Calcium [Mass/Vol] 8.3 mg/dL Low 8.6-10.3 [facility] Comment on above: Performed By: #### L [id number] #### [facility] [[email or web address] LAB ([facility]) [address] [place] [address] Chloride [Moles/Vol] 103 mmol/L Normal 98-107 [facility] Comment on above: Performed By: #### L [id number] #### [facility] [[email or web address] ([facility] [address] [place] [address] CO2 [Moles/Vol] 25 mmol/L Normal 21-31 [facility] Comment on above: Performed By: #### L [id number] #### [facility] [[email or web address] LAB ([facility] [address] [place] [address] Creatinine [Mass/Vol] 1.48 mg/dL High 0.60-1.20 [facility] Comment on above: Performed By: #### L [id number] #### [facility] [[email or web address] LAB ([facility]) [address] [place] [address] GLOMERULAR FILTRATION RATE ML/MIN/1.73 SQ M.PREDICTED 37.6 mL/min/1.73m*2 Low >60.0 [facility] Comment on above: Result Comment: [facility]???s estimated glomerular filtration rate (eGFR) will [...] individuals. Performed By: #### L [id number] #### [facility] [[email or web address] LAB ([facility]) [address] [place] [address] Glucose [Mass/Vol] 130 mg/dL High 70-100 [facility] Comment on above: Performed By: #### L [id number] #### [facility] [[email or web address] LAB ([facility]) [address] [place] [address] Potassium [Moles/Vol] 4.8 mmol/L Normal 3.5-5.1 [facility] Comment on above: Performed By: #### L [id number] #### [facility] [[email or web address] LAB ([facility]) [address] [place] [address] Protein [Mass/Vol] 6.0 g/dL Normal 6.0-8.3 [facility] Comment on above: Performed By: #### L [id number] #### [facility] [[email or web address] LAB ([facility]) [address] [place] [address] Sodium [Moles/Vol] 134 mmol/L Low 136-145 [facility] Comment on above: Performed By: #### L [id number] #### [facility] [[email or web address] LAB ([facility]) [address] [place] [address] Urea nitrogen [Mass/Vol] 29 mg/dL High 7-25 [facility] Comment on above: Performed By: #### L [id number] #### [facility] ([facility]) [address] [place] [address] UREA NITROGEN/CREATININE (MASS RATIO) IN SER/PLAS 19.6 Normal [facility] Comment on above: Performed By: #### L [id number] #### [facility] [[email or web address] LAB ([facility]) [address] [place] [address] HEMOGLOBIN A1Con 09-03-2024 Glucose [Mass/Vol] 143 mg/dL Normal [facility] Comment on above: Performed By: #### L [id number] #### [facility] [[email or web address] LAB ([facility]) [address] [place] [address] HbA1c (Bld) [Mass fraction] 6.6 % High 4.0-6.0 [facility] Comment on above: Performed By: #### L [id number] #### [facility] [[email or web address] LAB ([facility]) [address] [place] [address] HIGH SENSITIVITY TROPONIN Io n 09-03-2024 HS TROPONIN I (NG/L) 1478 ng/L Critically high <15 [facility] Comment on above: Performed By: #### L [id number] #### [facility] [[email or web address] LAB ([facility]) [address] [place] [address] HS TROPONIN I (NG/L) 1746 ng/L Critically high <15 [facility] Comment on above: Performed By: #### L [id number] #### [facility] [[email or web address] LAB ([facility]) [address] [place] [address] HS TROPONIN I (NG/L) 1891 ng/L Critically high <15 [facility] Comment on above: Performed By: #### L [id number] #### [facility] [[email or web address] LAB ([facility]) [address] [place] [address] LACTIC ACID WITH 4 HOUR REFL EXon 09-03-2024 LACTATE (MMOL/L) IN SER/PLAS 1.6 mmol/L Normal 0.5-2.2 [facility] Comment on above: Performed By: #### L [id number] ####[facility] [[email or web address]] LAB (BEAKER)[address] [place] [address] LIPID PANELon 09-03-2024 CHOL/HDL 1.8 mg/dL Normal [facility] Comment on above: Performed By: #### L [id number] ####[facility] [[email or web address]] LAB (BEAKER)[address] [place] [address] Cholesterol [Mass/Vol] 125 mg/dL Normal 120-200 [facility] Comment on above: Performed By: #### L [id number] ####[facility] [[email or web address]] LAB (BEAKER)[address] [place] [address] Magnesium [Mass/Vol] 44 mg/dL Normal <150 [facility] Comment on above: Result Comment: TRIG LYCERIDE REFERENCE RANGE: 20 YEARS AND OLDER CARDIOVASCULAR RISK LESS THAN 150 mg/dL LOW RISK 150 TO 199 mg/dL BORDERLINE RISK 200 mg/dL AND GREATER HIGH RISK Performed By: #### L [id number] ####[facility] [[email or web address]] LAB (BEAKER)[address] [place] [address] Magnesium [Mass/Vol] 46 mg/dL Normal 0-160 [facility] Comment on above: Performed By: #### L [id number] ####[facility] [[email or web address]] LAB (BEAKER)[address] [place] [address] Magnesium [Mass/Vol] 70 mg/dL Normal 23-92 [facility] Comment on above: Performed By: #### L [id number] ####[facility] [[email or web address] LAB (BEAKER)[address] [facility] [place] [address] NON HDL CHOL. (LDL+VLDL) 55 Normal [facility] Comment on above: Performed By: #### L [id number] ####[facility] [[email or web address]] LAB (BEAKER)[address] [facility] [place] [address] TOTAL VLDL-C 9 mg/dL Normal 0-40 [facility] Comment on above: Performed By: #### L [id number] ####[email or web address] LAB (BEAKER)[address] [facility] [place] [address] LIPOPROTEIN A (LPA)on 2024 Magnesium [Mass/Vol] 33 mg/dL High <=29 [facility] Comment on above: Result Comment: Perf ormed By: [employer] [address] [place] [address] Dog Handler Or Trainer: Amol Tran MD, PhD CLIA Number: [id number] Performed By: #### L [id number] #### [facility] ([facility]ER) [address] [place] [address] MAGNESIUMon 09-03-2024 Magnesium [Mass/Vol] 1.8 mg/dL Low 1.9-2.7 [facility] Comment on above: Performed By: #### L [id number] #### [facility] [[email or web address]] LAB (BEAKER) [address] [place] [address] SPUTUM CULTUREon 09-03-2024 GRAM STAIN RESULT Normal [facility] Comment on above: Order Comment: Light Growth Colonies Consistent with Upper Respiratory Terrie Result Comment: 10-2 5 Squamous Epithelial Cells Per Low Power Field >25 Polys Per Low Power Field Few Gram positive cocci in pairs Performed By: #### L [id number] ####[facility] [[email or web address]] LAB (AKER)[address] [place] [address] ALL CBC WITH AUTO DIFFon BASOPHILS ABSOLUTE AUTO 0.1 [facility] Basophils/100 WBC (Bld) 0.8 % 0.2 - 2.0 % [facility] Eosinophils/100 WBC (Bld) 0.9 % 0.9 - 7.0 % [facility] Erythrocyte distribution width (RBC) [Ratio] 14.1 % 11.0 - 15.0 % [facility] Hematocrit (Bld) [Volume fraction] 38.4 % 36.0 - 48.0 % [facility] Hemoglobin (Bld) [Mass/Vol] 12.4 g/dL 12.0 - 16.0 g/dL [facility] IMMATURE GRANULOCYTES ABS AUTO 0.07 High [facility] Immature granulocytes/100 WBC (Bld) 0.7 % High 0.0 - 0.5 % [facility] Interpretation and review of laboratory results Abnormal [facility] LYMPHOCYTES ABSOLUTE AUTO 2.1 [facility] Lymphocytes/100 WBC (Bld) 19.2 % Low 20.5 - 60.0 % [facility] MCH (RBC) [Entitic mass] 31.6 pg 26.7 - 34.0 pg [facility] MCHC (RBC) [Mass/Vol] 32.3 g/dL 29.9 - 35.2 g/dL [facility] MCV (RBC) [Entitic vol] 97.7 fL 81.0 - 99.0 fL [facility] MONOCYTES ABSOLUTE AUTO 0.9 High [facility] Monocytes/100 WBC (Bld) 8.2 % 1.7 - 12.0 % [facility] NEUTROPHILS ABSOLUTE AUTO 7.5 High [facility] Neutrophils/100 WBC (Bld) 70.2 % 43.0 - 75.0 % [facility] Platelet mean volume (Bld) [Entitic vol] 9 fL Low 9.5 - 13.5 fL [facility] TBH EO # 0.1 [facility] TB PLT 370 [facility] TB RBC 3.93 Low [facility] TBH WBC 10.7 [facility] Office Visiton 08-01-2024 Follow-up visit [id number] Chiara Edaurdo 1955 F Date Provider Department Center 08/01/2024 [id number], ABBY CARD [facility] Family History Problem Relation Age of Onset Stroke Mother Kidney disease Father Coronary artery disease Paternal Grandfather Family Status - Relation Status Age at Mother Father Paternal Grandfather Level of Service:48645 SC OFFICE/OUTPATIENT ESTABLISHED LOW MDM 20 MIN Normal [facility] ALL CBC WITH AUTO DIFFon BASOPHILS ABSOLUTE AUTO 0.1 [facility] Basophils/100 WBC (Bld) 0.5 % 0.2 - 2.0 % [facility] Eosinophils/100 WBC (Bld) 0.3 % Low 0.9 - 7.0 % [facility] Erythrocyte distribution width (RBC) [Ratio] 14.6 % 11.0 - 15.0 % [facility] Hematocrit (Bld) [Volume fraction] 37.3 % 36.0 - 48.0 % [facility] Hemoglobin (Bld) [Mass/Vol] 12.3 g/dL 12.0 - 16.0 g/dL [facility] IMMATURE GRANULOCYTES ABS AUTO 0.04 High [facility] Immature granulocytes/100 WBC (Bld) 0.3 % 0.0 - 0.5 % [facility] Interpretation and review of laboratory results Abnormal [facility] LYMPHOC[facility]TES ABSOLUTE AUTO 1.8 [facility] Lymphocytes/100 WBC (Bld) 15.7 % Low 20.5 - 60.0 % [facility] MCH (RBC) [Entitic mass] 32.1 pg 26.7 - 34.0 pg [facility] MCHC (RBC) [Mass/Vol] 33 g/dL 29.9 - 35.2 g/dL [facility] MCV (RBC) [Entitic vol] 97.4 fL 81.0 - 99.0 fL [facility] MONOCYTES ABSOLUTE AUTO 0.8 [facility] Monocytes/100 WBC (Bld) 6.9 % 1.7 - 12.0 % [facility] NEUTROPHILS ABSOLUTE AUTO 8.8 High [facility] Neutrophils/100 WBC (Bld) 76.3 % High 43.0 - 75.0 % [facility] Platelet mean volume (Bld) [Entitic vol] 9.3 fL Low 9.5 - 13.5 fL [facility] TBH EO # 0 [facility] TBH PLT 308 [facility] TB RBC 3.83 Low [facility] TBH WBC 11.5 High [facility] Urine Cultureon 07-26-2024 Bacteria identified Cx Nom (U) 50,000 colonies/ml mixed bacterial skin contaminants 2 Days PERFORMED BY: [place] [address] PATHOLOGIST MATERIALS PLANNER/PRODUCTION PLANNER LETICIA KAHN M.D. Normal [facility] Comment on above: Performed By: #### C UU #### [address] 36on 07-25-2024 36 Regarding labs from [...] will still call her PCP on 07/26/[address] [facility] ALL CBC WITH AUTO DIFFon Erythrocyte distribution width (RBC) [Ratio] 14.5 % 11.0 - 15.0 % [facility] Hematocrit (Bld) [Volume fraction] 37.9 % 36.0 - 48.0 % [facility] Hemoglobin (Bld) [Mass/Vol] 12.4 g/dL 12.0 - 16.0 g/dL [facility] Interpretation and review of laboratory results Abnormal [facility] MCH (RBC) [Entitic mass] 31.3 pg 26.7 - 34.0 pg [facility] MCHC (RBC) [Mass/Vol] 32.7 g/dL 29.9 - 35.2 g/dL [facility] MCV (RBC) [Entitic vol] 95.7 fL 81.0 - 99.0 fL [facility] Platelet mean volume (Bld) [Entitic vol] 9.4 fL Low 9.5 - 13.5 fL [facility] TB PLT 322 [facility] TB RBC 3.96 Low [facility] TB WBC 23.5 High [facility] Telephoneon 07-25-2024 Telephone [id number] Chiara Eduardo 1955 F Date Provider Department Center 07/25/2024 [id number] HARRISON Family History Problem Relation Age of Onset Stroke Mother Kidney disease Father Coronary artery disease Paternal Grandfather Family Status - Relation Status Age at Mother Father Paternal Grandfather [facility] Erythrocyte distribution wid th Auto (RBC) [Ratio]on 07-17-2024 Erythrocyte distribution width (RBC) [Ratio] Erythrocyte distribution width [Ratio] by Automated count 11.0-15.0 [facility] Estimated glomerular filtrat ion rate (GFR) non- Americanon 07-17-2024 GFR/1.73 sq M.predicted among non-blacks MDRD (S/P/Bld) [Vol rate/Area] Estimated glomerular filtration rate (GFR) non- Low >=60 mL/min/1.73m 2 [facility] Hematocrit Auto (Bld) [Volum e fraction]on 07-17-2024 Hematocrit (Bld) [Volume fraction] Hematocrit [Volume Fraction] of Blood by Automated count 36.0-48.0 [facility] Hemoglobin [Mass/volume] in Bloodon 07-17-2024 Hemoglobin (Bld) [Mass/Vol] Hemoglobin [Mass/volume] in Blood 12.0-16.0 [facility] Laboratory - Chemistry and C hemistry - challengeon 07-17-2024 Albumin [Mass/Vol] 3.4 g/dL 3.4-5.0 [facility] Calcium [Mass/Vol] 8.8 mg/dL 8.5-10.1 [facility] Chloride [Moles/Vol] 99 mmol/L 98-107 [facility] CO2 [Moles/Vol] 27.2 mmol/L 21.0-32.0 [facility] Creatinine [Mass/Vol] 1.44 mg/dL High 0.55-1.02 [facility] GFR/1.73 sq M.predicted MDRD (S/P/Bld) [Vol rate/Area] 43 mL/min/{1.73_m2} Low >=60 mL/min/1.73m 2 [facility] Glucose [Mass/Vol] 105 mg/dL 74-106 [facility] Magnesium [Mass/Vol] 2.1 mg/dL 1.8-2.4 [facility] Potassium [Moles/Vol] 4.9 mmol/L 3.5-5.1 [facility] Sodium [Moles/Vol] 135 mmol/L Low 136-145 [facility] Urate [Mass/Vol] 5.0 mg/dL 2.6-6.0 [facility] Urea nitrogen [Mass/Vol] 20.0 mg/dL High 7.0-18.0 [facility] Urea nitrogen/Creatinine [Mass ratio] 13.9 mg/mg [facility] Laboratory - Urinalysison Protein (U) [Mass/Vol] 25.2 mg/dL High <=11.9 [facility] Leukocytes [#/volume] correc maryuri for nucleated erythrocytes in Blood by Automated counon 07-17-2024 WBC corrected for nucl RBC Auto (Bld) [#/Vol] Leukocytes [#/volume] corrected for nucleated erythrocytes in Blood by Automated coun 4.0-11.0 [facility] MCH Auto (RBC) [Entitic mass ]on 07-17-2024 MCH (RBC) [Entitic mass] MCH [Entitic mass] by Automated count 26.7-34.0 [facility] MCHC Auto (RBC) [Mass/Vol]on 07-17-2024 MCHC (RBC) [Mass/Vol] MCHC [Mass/volume] by Automated count 29.9-35.2 [facility] MCV Auto (RBC) [Entitic vol] on 07-17-2024 MCV (RBC) [Entitic vol] MCV [Entitic volume] by Automated count 81.0-99.0 [facility] No Panel Informationon 07-17 Parathyroid Hormone (Intact) 68 pg/mL Abnormal 15-65 [facility] Comment on above: Performed at: [address] [id number] Director: True Herron PhD, Phone: [phone] Phosphorus Level 3.2 mg/dL 2.6-4.7 [facility] Urine Random Creatinine 68.16 mg/dL 20.00-300.00 [facility] Platelet mean volume Auto (B ld) [Entitic vol]on 07-17-2024 Platelet mean volume (Bld) [Entitic vol] Platelet mean volume [Entitic volume] in Blood by Automated count 9.5-13.5 [facility] Platelets Auto (Bld) [#/Vol] on 07-17-2024 Platelets (Bld) [#/Vol] Platelets [#/volume] in Blood by Automated count 150-450 [facility] RBC Auto (Bld) [#/Vol]on RBC (Bld) [#/Vol] Erythrocytes [#/volume] in Blood by Automated count Low 4.20-5.40 [facility] Serum or plasma anion gap de terminationon 07-17-2024 Anion gap [Moles/Vol] Serum or plasma an ion gap determination [facility] TBH URINE T PROTEIN CREAT RA TIOon 07-17-2024 CREATININE URINE RANDOM 68.16 mg/dL 20.00 - 300.00 mg/dL [facility] Interpretation and review of laboratory results Abnormal [facility] [employer] Protein (U) [Mass/Vol] 25.2 mg/dL High NINF - 11.9 mg/dL [facility] [employer] PROTEIN CREATININE RATIO URINE 0.37 [facility] [employer] [facility] Urine protein/creatinine rat ioon 07-17-2024 Protein/Creatinine (U) [Ratio] Urine protein/creatinine ratio [facility] ANESon 07-03-2024 ANES - Attestation signed by Abby Azevedo MD at 07/03/2024 9:27 AM Abby Azevedo MD, MPH, [facility], PSYCHIATRIC, [facility] Interventional Cardiology Pager Email: [email or web address] Patient: Chiara A Mor Procedure Information Date/Time: 07/03/24 1030 Procedures: Coronary angiography - PC APPROVED 06/16-09/13 R IJ L RAD Right heart cath Location: [facility] M[employer] WORK[employer] 3 / [facility] (Cath) Providers: Abby Azevedo [...] discussed with attending. Additional Equipment Requests Normal [facility] HPon 07-03-2024 HP - Attestation signed by Abby Azevedo MD at 07/03/2024 9:27 AM Abby Azevedo MD, MPH, [facility], [facility], [facility] Interventional Cardiology Pager Email: [email or web address] H&P reviewed. The patient was examined and there are no changes to the H&P. Proceed with CORS + C Geo Laboy MD PGY-5 [employer] [facility] Pager # [phone] Normal [facility] Pedro Luis 07-03-2024 [place] RN educated pt on d/ c instructions. [...] of unit with all of belongings. Normal [facility] NURSNOTE Per Dr. Medrano patient to get LR at 100ml per hr for pre cath hydration [facility] ALL CBC WITH AUTO DIFFon BASOPHILS ABSOLUTE AUTO 0.1 [facility] Basophils/100 WBC (Bld) 0.7 % 0.2 - 2.0 % [facility] Eosinophils/100 WBC (Bld) 0.9 % 0.9 - 7.0 % [facility] Erythrocyte distribution width (RBC) [Ratio] 15.5 % High 11.0 - 15.0 % [facility] Hematocrit (Bld) [Volume fraction] 36.4 % 36.0 - 48.0 % [facility] Hemoglobin (Bld) [Mass/Vol] 12 g/dL 12.0 - 16.0 g/dL [facility] IMMATURE GRANULOCYTES ABS AUTO 0.04 High [facility] Immature granulocytes/100 WBC (Bld) 0.4 % 0.0 - 0.5 % [facility] Interpretation and review of laboratory results Abnormal [facility] LYMPHOCYTES ABSOLUTE AUTO 1.2 [facility] Lymphocytes/100 WBC (Bld) 12.3 % Low 20.5 - 60.0 % [facility] MCH (RBC) [Entitic mass] 31.8 pg 26.7 - 34.0 pg [facility] MCHC (RBC) [Mass/Vol] 33 g/dL 29.9 - 35.2 g/dL [facility] MCV (RBC) [Entitic vol] 96.6 fL 81.0 - 99.0 fL [facility] MONOCYTES ABSOLUTE AUTO 0.7 [facility] Monocytes/100 WBC (Bld) 6.6 % 1.7 - 12.0 % [facility] NEUTROPHILS ABSOLUTE AUTO 8 High [facility] Neutrophils/100 WBC (Bld) 79.1 % High 43.0 - 75.0 % [facility] Platelet mean volume (Bld) [Entitic vol] 8.8 fL Low 9.5 - 13.5 fL [facility] TBH EO # 0.1 [facility] TB PLT 290 [facility] RBC 3.77 Low [facility] WBC 10.1 [facility] HPon 06-15-2024 [facility] Cardiology Clinic Note Chief Complaint: [...] has noticed worsening shortness of breath. Her special client bus driver adjusted her inhalers but this does not [...] kidney disease, COPD (chronic obstructive pulmonary disease) ([facility]), Coronary artery disease, Coronary artery disease involving [place] coronary artery of [place] heart without angina pectoris (12/28/2016), Essential hypertension [...] mg table (more content not included)... Normal [facility] Office Visiton 06-15-2024 Follow-up visit [id number] Chiara Eduardo 1955 F Date Provider Department Center 06/15/2024 271-ABBY AZEVEDO JUSTIN Garcia Family History Problem Relation Age of Onset Stroke Mother Kidney disease Father Coronary artery disease Paternal Grandfather Family Status - Relation Status Age at Mother Father Paternal Grandfather Level of Service:46295 SC OFFICE/OUTPATIENT ESTABLISHED HIGH MDM 40 MIN Normal [facility] Orders Onlyon 06-15-2024 Orders Only [id number] Chiara Eduardo 1955 F Date Provider Department Center 06/15/2024 895-ALLAN BUSTAMANTE JUSTIN Garcia Family History Problem Relation Age of Onset Stroke Mother Kidney disease Father Coronary artery disease Paternal Grandfather Family Status - Relation Status Age at Mother Father Paternal Grandfather Normal [facility] Office Visiton 05-23-2024 Follow-up visit [id number] Chiara Eduardo 1955 F Date Provider Department Center 05/23/2024 XANDER FARLEY Family History Problem Relation Age of Onset Stroke Mother Kidney disease Father Coronary artery disease Paternal Grandfather Family Status - Relation Status Age at Mother Father Paternal Grandfather Level of Service:94019 SC OFFICE/OUTPATIENT ESTABLISHED LOW MDM 20 MIN Normal [facility] TBH URINE T PROTEIN CREAT RA TIOon 02-02-2024 CREATININE URINE RANDOM 78.2 mg/dL 20.00 - 300.00 mg/dL [facility] Protein (U) [Mass/Vol] 8.7 mg/dL NINF - 11.9 mg/dL [facility] PROTEIN CREATININE RATIO URINE 0.11 [facility] 01-24-2024 Hemoglobin (Bld) [Mass/Vol] 11 g/dL Low 12.0 - 16.0 g/dL [facility] Interpretation and review of laboratory results Abnormal [facility] 36on 01-04-2024 36 Patient seen today b y Dr. Sequeira. He wants to know if she can stop Effient due to easy bruising/bleeding. Please advise. Thanks. Normal [facility] Office Visiton 01-04-2024 Follow-up visit [id number] Chiara Eduardo 1955 F Date Provider Department Center 01/04/2024 XANDER FARLEY Family History Problem Relation Age of Onset Stroke Mother Kidney disease Father Coronary artery disease Paternal Grandfather Family Status - Relation Status Age at Mother Father Paternal Grandfather Level of Service:57460 SC OFFICE/OUTPATIENT ESTABLISHED LOW MDM 20 MIN Normal [facility] Iron binding capacity [Mass/ volume] in Serum or Plasmaon 11-23-2023 Iron binding capacity [Mass/Vol] 365.0 ug/dL 250.0-450.0 [facility] Iron saturation [Mass Fracti on] in Serum or Plasmaon 11-23-2023 Iron saturation [Mass fraction] 5.5 % [facility] Laboratory - Chemistry and C hemistry - challengeon 11-23-2023 Ferritin [Mass/Vol] 25.0 ng/mL 8.0-252.0 [facility] Iron [Mass/Vol] 20.0 ug/dL Low 50.0-170.0 [facility] IRON AND TIBCon 2023 Interpretation and review of laboratory results Abnormal [facility] IRON 20.0 ug/dL Low 50.0 - 170.0 ug/dL [facility] TB PERCENT IRON SATURATION 5.5 % [facility] TOTAL IRON BINDING CAPACITY 365.0 ug/dL 250.0 - 450.0 ug/dL [facility] Erythrocyte distribution wid th Auto (RBC) [Ratio]on 11-08-2023 Erythrocyte distribution width (RBC) [Ratio] 16.4 % High 11.0-15.0 [facility] Estimated glomerular filtrat ion rate (GFR) non- Americanon 11-08-2023 GFR/1.73 sq M.predicted among non-blacks MDRD (S/P/Bld) [Vol rate/Area] 37 mL/min/{1.73_m2} Low >=60 [facility] Globulin Calc (S) [Mass/Vol] on 11-08-2023 Globulin (S) [Mass/Vol] 3.9 g/dL [facility] Hematocrit Auto (Bld) [Volum e fraction]on 11-08-2023 Hematocrit (Bld) [Volume fraction] 28.1 % Low 36.0-48.0 [facility] Hemoglobin [Mass/volume] in Bloodon 11-08-2023 Hemoglobin (Bld) [Mass/Vol] 8.7 g/dL Low 12.0-16.0 [facility] Laboratory - Chemistry and C hemistry - challengeon 11-08-2023 Albumin [Mass/Vol] 3.4 g/dL 3.4-5.0 [facility] ALP [Catalytic activity/Vol] 81 U/L 46-116 [facility] ALT [Catalytic activity/Vol] 26 U/L 14-59 [facility] AST [Catalytic activity/Vol] 23 U/L 15-37 [facility] Bilirubin [Mass/Vol] 0.3 mg/dL 0.2-1.0 [facility] Calcium [Mass/Vol] 8.7 mg/dL 8.5-10.1 [facility] Chloride [Moles/Vol] 93 mmol/L Low 98-107 [facility] CO2 [Moles/Vol] 27.4 mmol/L 21.0-32.0 [facility] Creatinine [Mass/Vol] 1.40 mg/dL High 0.55-1.02 [facility] GFR/1.73 sq M.predicted MDRD (S/P/Bld) [Vol rate/Area] 45 mL/min/{1.73_m2} Low >=60 [facility] Glucose [Mass/Vol] 96 mg/dL 74-106 [facility] Magnesium [Mass/Vol] 2.2 mg/dL 1.8-2.4 [facility] Potassium [Moles/Vol] 4.4 mmol/L 3.5-5.1 [facility] Protein [Mass/Vol] 7.3 g/dL 6.4-8.2 [facility] Sodium [Moles/Vol] 128 mmol/L Low 136-145 [facility] Urate [Mass/Vol] 5.6 mg/dL 2.6-6.0 [facility] Urea nitrogen [Mass/Vol] 20.0 mg/dL High 7.0-18.0 [facility] Urea nitrogen/Creatinine [Mass ratio] 14.3 mg/mg [facility] Bilirubin Ql (U) Negative NEGATIVE [facility] Glucose (U) [Mass/Vol] Negative NEGATIVE [facility] Ketones Ql (U) Negative NEGATIVE [facility] pH (U) 7.5 [pH] 5.0-9.0 [facility] Specific gravity (U) [Rel density] 1.010 1.005-1.025 [facility] Urobilinogen Qn (U) 0.2 {Chuy'U}/dL 0.2-1.0 [facility] Laboratory - Specimen inform ationon 11-08-2023 Appearance (U) CLEAR CLEAR [facility] Color (U) YELLOW YELLOW [facility] Laboratory - Urinalysison Leukocyte esterase Test strip Ql (U) Negative NEGATIVE [facility] Nitrite Ql (U) Negative NEGATIVE [facility] Protein (U) [Mass/Vol] 11.9 mg/dL <=11.9 [facility] Protein Ql (U) Negative NEG/TRACE [facility] Leukocytes [#/volume] correc maryuri for nucleated erythrocytes in Blood by Automated counon 11-08-2023 WBC corrected for nucl RBC Auto (Bld) [#/Vol] 7.3 10 3/uL 4.0-11.0 [facility] MCH Auto (RBC) [Entitic mass ]on 11-08-2023 MCH (RBC) [Entitic mass] 26.1 pg Low 26.7-34.0 [facility] MCHC Auto (RBC) [Mass/Vol]on 11-08-2023 MCHC (RBC) [Mass/Vol] 31.0 g/dL 29.9-35.2 [facility] MCV Auto (RBC) [Entitic vol] on 11-08-2023 MCV (RBC) [Entitic vol] 84.4 fL 81.0-99.0 [facility] No Panel Informationon 11-07 25-Hydroxy Vitamin D Total 32.6 ng/mL [facility] Comment on above: <20 ng/mL Vit D defi cient20-<30 ng/mL Vit D [id number] ng/mL Vit D sufficient>100 ng/mL Potential Toxicity Parathyroid Hormone (Intact) 106 pg/mL Abnormal 15-65 [facility] Comment on above: Performed at: - [employer] [address] [id number] Director: True Herron PhD, Phone: [phone] Phosphorus Level 3.8 mg/dL 2.6-4.7 [facility] Urine Occult Blood Negative NEGATIVE [facility] Urine Random Creatinine 73.41 mg/dL 20.00-300.00 [facility] Platelet mean volume Auto (B ld) [Entitic vol]on 11-08-2023 Platelet mean volume (Bld) [Entitic vol] 8.6 fL Low 9.5-13.5 [facility] Platelets Auto (Bld) [#/Vol] on 11-08-2023 Platelets (Bld) [#/Vol] 401 10 3/uL 150-450 [facility] RBC Auto (Bld) [#/Vol]on RBC (Bld) [#/Vol] 3.33 10 6/uL Low 4.20-5.40 [facility] Serum or plasma albumin/glob ulin mass ratioon 11-08-2023 Albumin/Globulin [Mass ratio] 0.9 {ratio} [facility] Serum or plasma anion gap de terminationon 11-08-2023 Anion gap [Moles/Vol] 12.0 mmol/L [facility] Urine protein/creatinine rat ioon 11-08-2023 Protein/Creatinine (U) [Ratio] 0.16 [facility] PTH INTACTon 08-04-2022 PTH, Intact 41 pg/mL Normal 15-65 [facility] Comment on above: Performed By: #### P THINT ####[facility] [address] [address]Dr. Osmel Shelton HEMOGRAM AND PLATELon 2022 Hematocrit (Bld) [Volume fraction] 34.6 % Critically low 36.0-48.0 [facility] Comment on above: Performed By: #### H H #### [facility] [address] [address] [address] Osmel Shelton Hemoglobin (Bld) [Mass/Vol] 11.1 g/dL Critically low 12.0-16.0 [facility] Comment on above: Performed By: #### H H #### [facility] [address] [address] [address] Osmel Shelton MCH (RBC) [Entitic mass] 29.3 pg Normal 26.7-34.0 [facility] Comment on above: Performed By: #### H H #### [facility] [address] [address] [address] Osmel Shelton MCHC (RBC) [Mass/Vol] 32.1 g/dL Normal 29.9-35.2 [facility] Comment on above: Performed By: #### H H #### [facility] [address] [address] [address] Osmel Shelton MCV (RBC) [Entitic vol] 91.3 fL Normal 81.0-99.0 [facility] Comment on above: Performed By: #### H H #### [facility] [address] [address] [address] Osmel Shelton PLT 306 103/ul Normal 150-450 [facility] Comment on above: Performed By: #### H H #### [facility] [address] [address] [address] Osmel Shelton RBC 3.79 106/ul Critically low 4.20-5.40 [facility] Comment on above: Performed By: #### H H #### [facility] [address] [address] [address] Osmel Shelton WBC 4.8 103/ul Normal 4.0-11.0 [facility] Comment on above: Performed By: #### H H #### [facility] [address] [address] [address] Osmel Shelton MAGNESIUMon 08-03-2022 Magnesium [Mass/Vol] 1.9 mg/dL Normal 1.8-2.4 [facility] Comment on above: Performed By: #### P HOS, MG, CMP, URIC #### [facility] [address] [address] [address] Osmel Shelton PHOSPHORUSon 08-03-2022 Phosphate [Mass/Vol] 4.4 mg/dL Normal 2.6-4.7 [facility] Comment on above: Performed By: #### P HOS, MG, CMP, URIC #### [facility] [address] [address] [address] Osmel Shelton PROF 14(COMP METB)on 023 Albumin [Mass/Vol] 3.6 g/dL Normal 3.4-5.0 [facility] Comment on above: Performed By: #### P HOS, MG, CMP, URIC ####[facility] [address] [address]Dr. Osmel Shelton Albumin/Globulin [Mass ratio] 0.9 {ratio} Normal [facility] Comment on above: Performed By: #### P HOS, MG, CMP, URIC ####[facility] [address] [address]Dr. Osmel Shelton ALP [Catalytic activity/Vol] 136 U/L Critically high 46-116 [facility] Comment on above: Performed By: #### P HOS, MG, CMP, URIC ####[facility] [address] [address]Dr. Osmel Shelton ALT [Catalytic activity/Vol] 29 U/L Normal 14-59 [facility] Comment on above: Performed By: #### P HOS, MG, CMP, URIC ####[facility] [address] [address]Dr. Osmel Shelton Anion gap [Moles/Vol] 13.5 mmol/L Normal [facility] Comment on above: Performed By: #### P HOS, MG, CMP, URIC ####[facility] [address] [place], [place] [address]Dr. Moiramarcia Shelton AST [Catalytic activity/Vol] 27 U/L Normal 15-37 [facility] Comment on above: Performed By: #### P HOS, MG, CMP, URIC ####[facility] [address] [address]Dr. Osmel Shelton Bilirubin [Mass/Vol] 0.2 mg/dL Normal 0.2-1.0 [facility] Comment on above: Performed By: #### P HOS, MG, CMP, URIC ####[facility] [address] [address]Dr. Moiramarcia Shelton Calcium [Mass/Vol] 9.0 mg/dL Normal 8.5-10.1 [facility] Comment on above: Performed By: #### P HOS, MG, CMP, URIC ####[facility] [address] [address]Dr. Osmel Shelton Chloride [Moles/Vol] 100 mmol/L Normal 98-107 [facility] Comment on above: Performed By: #### P HOS, MG, CMP, URIC ####[facility] [address] [address]Dr. Osmel Shelton CO2 [Moles/Vol] 25.7 mmol/L Normal 21.0-32.0 [facility] Comment on above: Performed By: #### P HOS, MG, CMP, URIC ####[facility] [address] [place] [address]Dr. Osmel Shelton Creatinine [Mass/Vol] 1.40 mg/dL Critically high 0.55-1.02 [facility] Comment on above: Performed By: #### P HOS, MG, CMP, URIC ####[facility] Hes[address] [place], [place] [address]Dr. Osmel Shelton EGFR-AF AFGHAN 45 mL/min/1.73m2 Critically low >=60 [facility] Comment on above: Performed By: #### P HOS, MG, CMP, URIC ####[facility] [address] [place], [place] [address]Dr. Osmel Shelton EGFR-NON AF AFGHAN 37 mL/min/1.73m2 Critically low >=60 [facility] Comment on above: Performed By: #### P HOS, MG, CMP, URIC ####[facility] [address] [place], [place] [address]Dr. Osmel Shelton Globulin (S) [Mass/Vol] 4.2 g/dL Normal [facility] Comment on above: Performed By: #### P HOS, MG, CMP, URIC ####[facility] [address] [place] [address]Dr. Osmel Shelton Glucose [Mass/Vol] 101 mg/dL Normal 74-106 [facility] Comment on above: Performed By: #### P HOS, MG, CMP, URIC ####[facility] [address] [place], [place] [address]Dr. Osmel Shelton Potassium [Moles/Vol] 4.2 mmol/L Normal 3.5-5.1 [facility] Comment on above: Performed By: #### P HOS, MG, CMP, URIC ####[facility] [address] [place] [address]Dr. Osmel Shelton Protein [Mass/Vol] 7.8 g/dL Normal 6.4-8.2 [facility] Comment on above: Performed By: #### P HOS, MG, CMP, URIC ####[facility] [address] [place] [address]Dr. Osmel Shelton Sodium [Moles/Vol] 135 mmol/L Critically low 136-145 [facility] Comment on above: Performed By: #### P HOS, MG, CMP, URIC ####[facility] [address] [place] [address]Dr. Osmel Shelton Urea nitrogen [Mass/Vol] 23.0 mg/dL Critically high 7.0-18.0 [facility] Comment on above: Performed By: #### P HOS, MG, CMP, URIC ####[facility] [address] [place], [place] [address]Dr. Osmel Shelton Urea nitrogen/Creatinine [Mass ratio] 16.4 mg/mg Normal [facility] Comment on above: Performed By: #### P HOS, MG, CMP, URIC ####[facility] [address] [place] [address]DrLissett Shelton UA RANDOMon 08-03-2022 Bilirubin Ql (U) Negative Normal NEGATIVE [facility] Comment on above: Performed By: #### U A #### [facility] [address] [place] [address] Dr. Osmel Shelton Clarity (U) CLEAR Normal CLEAR [facility] Comment on above: Performed By: #### U A #### [facility] [address] [place] [address] Dr. Osmel Shelton Color (U) LT. YELLOW Normal YELLOW [facility] Comment on above: Performed By: #### U A #### [facility] [address] [place] [address] Dr. Osmel Shelton Glucose Ql (U) Negative Normal NEGATIVE [facility] Comment on above: Performed By: #### U A #### [facility] [address] [place] [address] Dr. Osmel Shelton Hemoglobin Ql (U) Negative Normal NEGATIVE [facility] Comment on above: Performed By: #### U A #### [facility] [address] [place] [address] Dr. Osmel Shelton Ketones Ql (U) Negative Normal NEGATIVE [facility] Comment on above: Performed By: #### U A #### [facility] [address] [place] [address] Dr. Osmel Shelton LEUKOCYTES Negative Normal NEGATIVE [facility] Comment on above: Performed By: #### U A #### [facility] [address] [place] [address] Dr. Osmel Shelton Nitrite Ql (U) Negative Normal NEGATIVE [facility] Comment on above: Performed By: #### U A #### [facility] [address] [place] [address] Dr. Osmel Shelton pH (U) 5.5 [pH] Normal 5-9 [facility] Comment on above: Performed By: #### U A #### [facility] [address] [place] [address] Dr. Osmel Shelton SPEC GRAVITY <=1.005 Abnormal 1.005-<=1.[address] [place] [address] Comment on above: Performed By: #### U A #### [facility] [address] [place] [address] Dr. Osmel Shelton UA PROTEIN Negative Normal NEGATIVE/ TRACE [facility] Comment on above: Performed By: #### U A #### [facility] [address] [place] [address] Dr. Osmel Shelton Urobilinogen Qn (U) 0.2 {Chuy'U}/dL Normal 0.2 - 1. 0 [facility] Comment on above: Performed By: #### U A #### [facility] [address] [place] [address] Dr. Osmel Shelton URIC ACID SERUMon 08-03-2022 Urate [Mass/Vol] 8.4 mg/dL Critically high 2.6-6.0 [facility] Comment on above: Performed By: #### P HOS, MG, CMP, URIC ####[facility] [address] [place] [address]DrLissett Shelton URINE T PROTEIN CREAT RATIOo n 08-03-2022 Protein (U) [Mass/Vol] 4.6 mg/dL Normal <=12.0 Th e [facility] Comment on above: Performed By: #### U RTPCR #### [facility] [address] [address] [address] Osmel Shelton UR PROT CREAT RAT 0.09 Normal [facility] Comment on above: Performed By: #### U RTPCR #### [facility] [address] [address] [address] Osmel Shelton URINE CREAT 50.21 mg/dL Normal 20.00-300.00 [facility] Comment on above: Performed By: #### U RTPCR #### [facility] [address] [place] [address] Dr. Osmel Shelton VITAMIN D 25 OHon 08-03-2022 VIT D 25-OH 20.9 ng/mL Normal [facility] Comment on above: Performed By: #### V ITAD ####[facility] [address] [place] [address]Dr. Osmel Shelton VIT D RANGES SEE BELOW Normal [facility] Comment on above: Result Comment: <20 ng/mL Vit D deficient 20 - <30 ng/mL Vit D insufficient 30 - 100 ng/mL Vit D sufficient >100 ng/mL Potential Toxicity Performed By: #### V ITAD ####[facility] [address] [place] [address]Dr. Osmel Shelton CBC AUTO DIFFon 07-09-2022 BASO # 0.0 103/ul Normal 0.0-0.1 [facility] Comment on above: Performed By: #### C BC #### [facility] [address] [place] [address] Dr. Osmel Shelton Basophils/100 WBC (Bld) 0.5 % Normal 0.2-2.0 [facility] Comment on above: Performed By: #### C BC #### [facility] [address] [place] [address] Dr. Osmel Shelton EO # 0.2 103/ul Normal 0.0-0.7 [facility] Comment on above: Performed By: #### C BC #### [facility] [address] [place] [address] Dr. Osmel Shelton Eosinophils/100 WBC (Bld) 2.9 % Normal 0.9-7.0 [facility] Comment on above: Performed By: #### C BC #### [facility] [address] [place] [address] Dr. Osmel Shelton Erythrocyte distribution width (RBC) [Ratio] 14.3 % Normal 11.0-15.0 [facility] Comment on above: Performed By: #### C BC #### [facility] [address] [place] [address] Dr. Osmel Shelton Hematocrit (Bld) [Volume fraction] 34.4 % Critically low 36.0-48.0 [facility] Comment on above: Performed By: #### C BC #### [facility] [address] [place] [address] Dr. Osmel Shelton Hemoglobin (Bld) [Mass/Vol] 11.4 g/dL Critically low 12.0-16.0 [facility] Comment on above: Performed By: #### C BC #### [facility] [address] [place] [address] Dr. Osmel Shelton IG # 0.02 10e3/ul Normal 0.00-0.03 [facility] Comment on above: Performed By: #### C BC #### [facility] [address] [place] [address] Dr. Osmel Shelton IG % 0.4 % Normal 0.0-0.5 [facility] Comment on above: Performed By: #### C BC #### [facility] [address] [place] [address] Dr. Osmel Shelton LYMPH # 1.3 103/ul Normal 1.2-3.8 [facility] Comment on above: Performed By: #### C BC #### [facility] [address] [place] [address] Dr. Osmel Shelton Lymphocytes/100 WBC (Bld) 23.0 % Normal 20.5-60.0 [facility] Comment on above: Performed By: #### C BC #### [facility] [address] [place] [address] Dr. Osmel Shelton MANUAL DIFF REQ NO Normal [facility] Comment on above: Performed By: #### C BC #### [facility] [address] [place] [address] Dr. Osmel Shelton MCH (RBC) [Entitic mass] 29.8 pg Normal 26.7-34.0 [facility] Comment on above: Performed By: #### C BC #### [facility] [address] [place] [address] Dr. Osmel Shelton MCHC (RBC) [Mass/Vol] 33.1 g/dL Normal 29.9-35.2 [facility] Comment on above: Performed By: #### C BC #### [facility] [address] [place] [address] Dr. Osmel Shelton MCV (RBC) [Entitic vol] 89.8 fL Normal 81.0-99.0 [facility] Comment on above: Performed By: #### C BC #### [facility] [address] [place] [address] Dr. Osmel Shelton MONO # 0.6 103/ul Normal 0.3-0.8 [facility] Comment on above: Performed By: #### C BC #### [facility] [address] [place] [address] Dr. Osmel Shelton Monocytes/100 WBC (Bld) 11.0 % Normal 1.7-12.0 [facility] Comment on above: Performed By: #### C BC #### [facility] [address] [place] [address] Dr. Osmel Shelton NEUT # 3.4 103/ul Normal 1.4-6.5 [facility] Comment on above: Performed By: #### C BC #### [facility] [address] [place] [address] Dr. Osmel Shelton Neutrophils/100 WBC (Bld) 62.2 % Normal 43.0-75.0 [facility] Comment on above: Performed By: #### C BC #### [facility] [address] [address] [address] Osmel Shelton Platelet mean volume (Bld) [Entitic vol] 9.4 fL Critically low 9.5-13.5 [facility] Comment on above: Performed By: #### C BC #### [facility] [address] [address] [address] Osmel Shelton PLT 327 103/ul Normal 150-450 [facility] Comment on above: Performed By: #### C BC #### [facility] [address] [address] [address] Osmel Shelton RBC 3.83 106/ul Critically low 4.20-5.40 [facility] Comment on above: Performed By: #### C BC #### [facility] [address] [address] [address] Osmel Shelton WBC 5.5 103/ul Normal 4.0-11.0 [facility] Comment on above: Performed By: #### C BC #### [facility] [address] [address] [address] Osmel Shelton PROF CHEM 8 (BAS METB)on Anion gap [Moles/Vol] 11.7 mmol/L Normal [facility] Comment on above: Performed By: #### B MP ####[facility] [address] [place] [address]Dr. Osmel Shelton Calcium [Mass/Vol] 8.8 mg/dL Normal 8.5-10.1 [facility] Comment on above: Performed By: #### B MP ####[facility] [address] [place] [id number]. Osmel Shelton Chloride [Moles/Vol] 99 mmol/L Normal 98-107 [facility] Comment on above: Performed By: #### B MP ####[facility] [address] [place] [address]Dr. Osmel Shelton CO2 [Moles/Vol] 27.1 mmol/L Normal 21.0-32.0 [facility] Comment on above: Performed By: #### B MP ####[facility] [address] [place] [address]Dr. Osmel Shelton Creatinine [Mass/Vol] 1.38 mg/dL Critically high 0.55-1.02 [facility] Comment on above: Performed By: #### B MP ####[facility] [address] [place], [place] [address]Dr. Osmel Shelton EGFR-AF AFGHAN 46 mL/min/1.73m2 Critically low >=60 [facility] Comment on above: Performed By: #### B MP ####[facility] [address] [place], [place] [address]Dr. Osmel Shelton EGFR-NON AF AFGHAN 38 mL/min/1.73m2 Critically low >=60 [facility] Comment on above: Performed By: #### B MP ####[facility] [address] [place], [place] [address]Dr. Osmel Shelton Glucose [Mass/Vol] 105 mg/dL Normal 74-106 [facility] Comment on above: Performed By: #### B MP ####[facility] [address] [place], [place] [address]Dr. Osmel Shelton Potassium [Moles/Vol] 4.8 mmol/L Normal 3.5-5.1 [facility] Comment on above: Performed By: #### B MP ####[facility] [address] [place], [place] [address]Dr. Osmel Shelton Sodium [Moles/Vol] 133 mmol/L Critically low 136-145 [facility] Comment on above: Performed By: #### B MP ####[facility] [address] [place], [place] [address]Dr. Oseml Shelton Urea nitrogen [Mass/Vol] 19.0 mg/dL Critically high 7.0-18.0 [facility] Comment on above: Performed By: #### B MP ####[facility] [address] [place], [place] [address]DrLissett Shelton Urea nitrogen/Creatinine [Mass ratio] 13.8 mg/mg Normal [facility] Comment on above: Performed By: #### B ####[facility] [address] [place], [place] [address]ViLissett Shelton PULMONARY FUNCTION TESTon PULMONARY FUNCTION TEST [...] ambulatory O2 indicated. Clinical correlation required. Normal [facility] US KIDNEYSon 04-15-2022 US KIDNEYS [...] Performed By: #### C BC #### [facility] [address] [place] [address] Dr. Osmel Shelton Basophils/100 WBC (Bld) 1.0 % Normal 0.2-2.0 [facility] Comment on above: Performed By: #### C BC #### [facility] [address] [place] [address] Dr. Osmel Shelton EO # 0.2 103/ul Normal 0.0-0.7 [facility] Comment on above: Performed By: #### C BC #### [facility] [address] [place] [address] Dr. Osmel Shelton Eosinophils/100 WBC (Bld) 3.6 % Normal 0.9-7.0 [facility] Comment on above: Performed By: #### C BC #### [facility] [address] [place] [address] Dr. Osmel Shelton Erythrocyte distribution width (RBC) [Ratio] 14.1 % Normal 11.0-15.0 [facility] Comment on above: Performed By: #### C BC #### [facility] [address] [place] [address] Dr. Osmel Shelton Hematocrit (Bld) [Volume fraction] 36.5 % Normal 36.0-48.0 [facility] Comment on above: Performed By: #### C BC #### [facility] [address] [place] [address] Dr. Osmel Shelton Hemoglobin (Bld) [Mass/Vol] 11.8 g/dL Critically low 12.0-16.0 [facility] Comment on above: Performed By: #### C BC #### [facility] [address] [place] [address] Dr. Osmel Shelton IG # 0.02 10e3/ul Normal 0.00-0.03 [facility] Comment on above: Performed By: #### C BC #### [facility] [address] [place] [address] Dr. Osmel Shelton IG % 0.3 % Normal 0.0-0.5 [facility] Comment on above: Performed By: #### C BC #### [facility] [address] [place] [address] Dr. Osmel Shelton LYMPH # 1.3 103/ul Normal 1.2-3.8 [facility] Comment on above: Performed By: #### C BC #### [facility] [address] [place] [address] Dr. Osmel Shelton Lymphocytes/100 WBC (Bld) 21.4 % Normal 20.5-60.0 [facility] Comment on above: Performed By: #### C BC #### [facility] [address] [place] [address] Dr. Osmel Shelton MANUAL DIFF REQ NO Normal [facility] Comment on above: Performed By: #### C BC #### [facility] [address] [place] [address] Dr. Osmel Shelton MCH (RBC) [Entitic mass] 29.3 pg Normal 26.7-34.0 [facility] Comment on above: Performed By: #### C BC #### [facility] [address] [place] [address] Dr. Osmel Shelton MCHC (RBC) [Mass/Vol] 32.3 g/dL Normal 29.9-35.2 [facility] Comment on above: Performed By: #### C BC #### [facility] [address] [place] [address] Dr. Osmel Shelton MCV (RBC) [Entitic vol] 90.6 fL Normal 81.0-99.0 [facility] Comment on above: Performed By: #### C BC #### [facility] [address] [place] [address] Dr. Osmel Shelton MONO # 0.7 103/ul Normal 0.3-0.8 [facility] Comment on above: Performed By: #### C BC #### [facility] [address] [place] [address] Dr. Osmel Shelton Monocytes/100 WBC (Bld) 11.2 % Normal 1.7-12.0 [facility] Comment on above: Performed By: #### C BC #### [facility] [address] [place] [address] Dr. Osmel Shelton NEUT # 3.7 103/ul Normal 1.4-6.5 [facility] Comment on above: Performed By: #### C BC #### [facility] [address] [place] [address] Dr. Osmel Shelton Neutrophils/100 WBC (Bld) 62.5 % Normal 43.0-75.0 [facility] Comment on above: Performed By: #### C BC #### [facility] [address] [place] [address] Dr. Osmel Shelton Platelet mean volume (Bld) [Entitic vol] 9.4 fL Critically low 9.5-13.5 [facility] Comment on above: Performed By: #### C BC #### [facility] [address] [place] [address] Dr. Osmel Shelton PLT 364 103/ul Normal 150-450 [facility] Comment on above: Performed By: #### C BC #### [facility] [address] [address] [address] Osmel Shelton RBC 4.03 106/ul Critically low 4.20-5.40 [facility] Comment on above: Performed By: #### C BC #### [facility] [address] [address] [address] Osmel Shelton WBC 5.9 103/ul Normal 4.0-11.0 [facility] Comment on above: Performed By: #### C BC #### [facility] [address] [address] [address] Osmel Shelton LIPID PROFILEon 01-05-2022 CHOL-HDL RATIO NORM SEE BELOW Normal [facility] Comment on above: Result Comment: 3.3 - 4.4 LOW RISK 4.4 - 7.1 AVERAGE RISK 7.1 - 11.0 MODERATE RISK >11.0 HIGH RISK Performed By: #### C MP, LIPID #### [facility] [address] [place] [address] Dr. Osmel Shelton Cholesterol [Mass/Vol] 149 mg/dL Normal <=200 [facility] Comment on above: Performed By: #### C MP, LIPID #### [facility] [address] [place] [address] Dr. Osmel Shelton Cholesterol in HDL [Mass/Vol] 75 mg/dL Critically high 40-60 [facility] Comment on above: Performed By: #### C MP, LIPID #### [facility] [address] [address] [address] Osmel Shelton Cholesterol in LDL [Mass/Vol] 60.4 mg/dL Normal [facility] Comment on above: Performed By: #### C MP, LIPID #### [facility] [address] [address] [address] Osmel Shelton Cholesterol.total/Chol esterol in HDL [Mass ratio] 2.0 {ratio} Normal [facility] Comment on above: Performed By: #### C MP, LIPID #### [facility] [address] [address] [address] Osmel Shelton HDL NORMAL > or = 60 mg/dl - LO W CARDIOVASCULAR RISK <40 mg/dl - HIGH CARDIOVASCULAR RISK Normal [facility] Comment on above: Performed By: #### C MP, LIPID #### [facility] [address] [address] [address] Osmel Shelton LDL CALC NORMAL SEE BELOW Normal [facility] Comment on above: Result Comment: <100 mg/dl OPTIMAL 100 - 129 mg/dl NEAR OR ABOVE OPTIMAL 130 - 159 mg/dl BORDERLINE HIGH 160 - 189 mg/dl HIGH >190 mg/dl VERY HIGH Performed By: #### C MP, LIPID #### [facility] [address] [address] [address] Osmel Shelton Triglyceride [Mass/Vol] 68 mg/dL Normal <=150 [facility] Comment on above: Performed By: #### C MP, LIPID #### [facility] [address] [address] [address] Osmel Shelton VLDL CALC 13.6 mg/dL Normal [facility] Comment on above: Performed By: #### C MP, LIPID #### [facility] [address] [address] [address] Osmel Shelton PROF 14(COMP METB)on 022 Albumin [Mass/Vol] 3.6 g/dL Normal 3.4-5.0 [facility] Comment on above: Performed By: #### C MP, LIPID #### [facility] [address] [address] [address] Osmel Shelton Albumin/Globulin [Mass ratio] 0.9 {ratio} Normal [facility] Comment on above: Performed By: #### C MP, LIPID #### [facility] [address] [address] [address] Osmel Shelton ALP [Catalytic activity/Vol] 152 U/L Critically high 46-116 [facility] Comment on above: Performed By: #### C MP, LIPID #### [facility] [address] [address] [address] Osmel Shelton ALT [Catalytic activity/Vol] 29 U/L Normal 14-59 [facility] Comment on above: Performed By: #### C MP, LIPID #### [facility] [address] [address] [address] Osmel Shelton Anion gap [Moles/Vol] 11.1 mmol/L Normal [facility] Comment on above: Performed By: #### C MP, LIPID #### [facility] [address] [address] [address] Osmel Shelton AST [Catalytic activity/Vol] 23 U/L Normal 15-37 [facility] Comment on above: Performed By: #### C MP, LIPID #### [facility] [address] [address] [address] Osmel Shelton Bilirubin [Mass/Vol] 0.3 mg/dL Normal 0.2-1.0 [facility] Comment on above: Performed By: #### C MP, LIPID #### [facility] [address] [address] [address] Osmel Shelton Calcium [Mass/Vol] 8.9 mg/dL Normal 8.5-10.1 [facility] Comment on above: Performed By: #### C MP, LIPID #### [facility] [address] [address] [address] Osmel Shelton Chloride [Moles/Vol] 96 mmol/L Critically low 98-107 [facility] Comment on above: Performed By: #### C MP, LIPID #### [facility] [address] [address] [address] Osmel Shelton CO2 [Moles/Vol] 28.2 mmol/L Normal 21.0-32.0 [facility] Comment on above: Performed By: #### C MP, LIPID #### [facility] [facility] [address] [address] [address] Osmel Shelton Creatinine [Mass/Vol] 1.46 mg/dL Critically high 0.55-1.02 [facility] Comment on above: Performed By: #### C MP, LIPID #### [facility] [address] [address] [address] Osmel Shelton EGFR-AF AFGHAN 43 mL/min/1.73m2 Critically low >=60 [facility] Comment on above: Performed By: #### C MP, LIPID #### [facility] [address] [address] [address] Osmel Shelton EGFR-NON AF AFGHAN 36 mL/min/1.73m2 Critically low >=60 [facility] Comment on above: Performed By: #### C MP, LIPID #### [facility] [address] [address] [address] Osmel Shelton Globulin (S) [Mass/Vol] 4.2 g/dL Normal [facility] Comment on above: Performed By: #### C MP, LIPID #### [facility] [address] [address] [address] Osmel Shelton Glucose [Mass/Vol] 95 mg/dL Normal 74-106 [facility] Comment on above: Performed By: #### C MP, LIPID #### [facility] [address] [address] [address] Osmel Shelton Potassium [Moles/Vol] 5.3 mmol/L Critically high 3.5-5.1 [facility] Comment on above: Performed By: #### C MP, LIPID #### [facility] [address] [place] [address] Dr. Osmel Shelton Protein [Mass/Vol] 7.8 g/dL Normal 6.4-8.2 [facility] Comment on above: Performed By: #### C MP, LIPID #### [facility] [address] [place] [address] Dr. Osmel Shelton Sodium [Moles/Vol] 130 mmol/L Critically low 136-145 [facility] Comment on above: Performed By: #### C MP, LIPID #### [facility] [address] [address] [address] Osmel Shelton Urea nitrogen [Mass/Vol] 22.0 mg/dL Critically high 7.0-18.0 [facility] Comment on above: Performed By: #### C MP, LIPID #### [facility] [address] [address] [address] Osmel Shelton Urea nitrogen/Creatinine [Mass ratio] 15.1 mg/mg Normal [facility] Comment on above: Performed By: #### C MP, LIPID #### [facility] [address] [address] [address] Osmel Shelton Vital Signs Date Time Vital Sign Value Performing Clinician Facility 11-13-2024 13:50-0400 Body mass index (BMI) [Ratio] 33.98 kg/m2 Nolvia Mihaiz EMISSIONS ENGINEER Work Phone: [facility] 11-13-2024 13:50-0400 Body temperature 98.49 [degF] Nolvia Aichholz EMISSIONS ENGINEER Work Phone: [facility] 11-13-2024 13:50-0400 Body weight 87 kg Nolvia Aichradhaz EMISSIONS ENGINEER Work Phone: [facility] 11-13-2024 13:50-0400 Diastolic blood pressure 72 mm[Hg] Nolvia Aichholz EMISSIONS ENGINEER Work Phone: [facility] 11-13-2024 13:50-0400 Heart rate 73 /min Nolvia Aichholz EMISSIONS ENGINEER Work Phone: [facility] 11-13-2024 13:50-0400 Respiratory rate 20 /min Nolvia Aichholz EMISSIONS ENGINEER Work Phone: [facility] 11-13-2024 13:50-0400 SaO2% (BldA) [Mass fraction] 95 % Nolvia Aichholz EMISSIONS ENGINEER Work Phone: [facility] 11-13-2024 13:50-0400 Systolic blood pressure 110 mm[Hg] Nolvia Aichholz EMISSIONS ENGINEER Work Phone: [facility] 11-01-2024 13:15-0400 Diastolic blood pressure 84 mm[Hg] Lisa Perez MD Work Phone: [facility] 11-01-2024 13:15-0400 Heart rate 65 /min Lisa Perez MD Work Phone: [facility] 11-01-2024 13:15-0400 Respiratory rate 16 /min Lisa Perez MD Work Phone: [facility] 11-01-2024 13:15-0400 SaO2% (BldA) [Mass fraction] 99 % Lisa Perez MD Work Phone: [facility] 11-01-2024 13:15-0400 Systolic blood pressure 122 mm[Hg] Lisa Perez MD Work Phone: [facility] 11-01-2024 10:50-0400 Body height 160.02 cm Lisa Perez MD Work Phone: [facility] 11-01-2024 10:50-0400 Body weight 88.45 kg Lisa Perez MD Work Phone: [facility] 10-10-2024 15:51-0400 Body mass index (BMI) [Ratio] 34.72 kg/m2 Nolvia Jimenez EMISSIONS ENGINEER Work Phone: [facility] 10-10-2024 15:51-0400 Body temperature 98.49 [degF] Nolvia Tony EMISSIONS ENGINEER Work Phone: [facility] 10-10-2024 15:51-0400 Body weight 88.91 kg Nolvia Mihaiz EMISSIONS ENGINEER Work Phone: [facility] 10-10-2024 15:51-0400 Diastolic blood pressure 88 mm[Hg] Nolvia Tony EMISSIONS ENGINEER Work Phone: [facility] 10-10-2024 15:51-0400 Heart rate 86 /min Nolvia Mihaiz EMISSIONS ENGINEER Work Phone: [facility] 10-10-2024 15:51-0400 Respiratory rate 26 /min Nolvia Mihaiz EMISSIONS ENGINEER Work Phone: [facility] 10-10-2024 15:51-0400 SaO2% (BldA) [Mass fraction] 95 % Nolvia Tony EMISSIONS ENGINEER Work Phone: [facility] 10-10-2024 15:51-0400 Systolic blood pressure 120 mm[Hg] Nolviaxochilt Holmz EMISSIONS ENGINEER Work Phone: [facility] 09-06-2024 15:24-0400 Body mass index (BMI) [Ratio] 35.46 kg/m2 Nolvia Sachahholz EMISSIONS ENGINEER Work Phone: [facility] 09-06-2024 15:24-0400 Body temperature 98.6 [degF] Nolvia Sachahholz EMISSIONS ENGINEER Work Phone: [facility] 09-06-2024 15:24-0400 Body weight 90.81 kg Nolvia Aichholz EMISSIONS ENGINEER Work Phone: [facility] 09-06-2024 15:24-0400 Diastolic blood pressure 98 mm[Hg] Nolvia Aichholz EMISSIONS ENGINEER Work Phone: [facility] 09-06-2024 15:24-0400 Heart rate 98 /min Nolvia Sachahholz EMISSIONS ENGINEER Work Phone: [facility] 09-06-2024 15:24-0400 Respiratory rate 20 /min Nolvia Aichholz EMISSIONS ENGINEER Work Phone: [facility] 09-06-2024 15:24-0400 SaO2% (BldA) [Mass fraction] 95 % Nolvia Sachahholz EMISSIONS ENGINEER Work Phone: [facility] 09-06-2024 15:24-0400 Systolic blood pressure 128 mm[Hg] Nolvia Sachahholz EMISSIONS ENGINEER Work Phone: [facility] 07-25-2024 13:37-0400 Body height 160.02 cm [facility] 07-25-2024 13:37-0400 Body mass index (BMI) [Ratio] 35.1 kg/m2 [facility] 07-25-2024 13:37-0400 Body temperature 97.8 [degF] [facility] 07-25-2024 13:37-0400 Body weight 89.86 kg [facility] 07-25-2024 13:37-0400 Diastolic blood pressure 56 mm[Hg] [facility] 07-25-2024 13:37-0400 Heart rate 93 /min [facility] 07-25-2024 13:37-0400 Respiratory rate 20 /min [facility] 07-25-2024 13:37-0400 SaO2% (BldA) [Mass fraction] 93 % [facility] 07-25-2024 13:37-0400 Systolic blood pressure 108 mm[Hg] [facility] 06-08-2024 14:43-0400 Body mass index (BMI) [Ratio] 35.39 kg/m2 Nolvia Mihaiz EMISSIONS ENGINEER Work Phone: [facility] 06-08-2024 14:43-0400 Body temperature 97.81 [degF] Nolvia Koltonholz EMISSIONS ENGINEER Work Phone: [facility] 06-08-2024 14:43-0400 Body weight 90.63 kg Nolvia Koltonholz EMISSIONS ENGINEER Work Phone: [facility] 06-08-2024 14:43-0400 Diastolic blood pressure 80 mm[Hg] Nolvia Sachahholz EMISSIONS ENGINEER Work Phone: [facility] 06-08-2024 14:43-0400 Heart rate 72 /min Nolvia Aichholz EMISSIONS ENGINEER Work Phone: [facility] 06-08-2024 14:43-0400 Respiratory rate 19 /min Nolvia Aichholz EMISSIONS ENGINEER Work Phone: [facility] 06-08-2024 14:43-0400 SaO2% (BldA) [Mass fraction] 98 % Nolvia Sachahholz EMISSIONS ENGINEER Work Phone: [facility] 06-08-2024 14:43-0400 Systolic blood pressure 144 mm[Hg] Nolvia Aichholz EMISSIONS ENGINEER Work Phone: [facility] 04-26-2024 15:02-0500 Body height 160 cm Shanda Cheng EMISSIONS ENGINEER Work Phone: [facility] 04-26-2024 15:02-0500 Body mass index (BMI) [Ratio] 35.96 kg/m2 Shanda Cheng EMISSIONS ENGINEER Work Phone: [facility] 04-26-2024 15:02-0500 Body temperature 97.2 [degF] Shanda Cheng EMISSIONS ENGINEER Work Phone: [facility] 04-26-2024 15:02-0500 Body weight 92.08 kg Shanda Cheng EMISSIONS ENGINEER Work Phone: [facility] 04-26-2024 15:02-0500 Diastolic blood pressure 84 mm[Hg] Shanda Cheng EMISSIONS ENGINEER Work Phone: [facility] 04-26-2024 15:02-0500 Heart rate 72 /min Shanda Cheng EMISSIONS ENGINEER Work Phone: [facility] 04-26-2024 15:02-0500 Respiratory rate 18 /min Shanda Cheng EMISSIONS ENGINEER Work Phone: [facility] 04-26-2024 15:02-0500 SaO2% (BldA) [Mass fraction] 94 % Shanda Cheng EMISSIONS ENGINEER Work Phone: [facility] 04-26-2024 15:02-0500 Systolic blood pressure 180 mm[Hg] Shanda Cheng EMISSIONS ENGINEER Work Phone: [facility] 04-18-2024 13:58-0500 Body height 160 cm Shanda Cheng EMISSIONS ENGINEER Work Phone: [facility] 04-18-2024 13:58-0500 Body mass index (BMI) [Ratio] 35.8 kg/m2 Shanda Cheng EMISSIONS ENGINEER Work Phone: [facility] 04-18-2024 13:58-0500 Body temperature 96.21 [degF] Shanda Cheng EMISSIONS ENGINEER Work Phone: [facility] 04-18-2024 13:58-0500 Body weight 91.67 kg Shanda Cheng EMISSIONS ENGINEER Work Phone: [facility] 04-18-2024 13:58-0500 Diastolic blood pressure 82 mm[Hg] Shanda Cheng EMISSIONS ENGINEER Work Phone: [facility] 04-18-2024 13:58-0500 Heart rate 96 /min Shanda Cheng EMISSIONS ENGINEER Work Phone: [facility] 04-18-2024 13:58-0500 Respiratory rate 18 /min Shanda Cheng EMISSIONS ENGINEER Work Phone: [facility] 04-18-2024 13:58-0500 SaO2% (BldA) [Mass fraction] 97 % Shanda Cheng EMISSIONS ENGINEER Work Phone: [facility] 04-18-2024 13:58-0500 Systolic blood pressure 138 mm[Hg] Shanda Cheng EMISSIONS ENGINEER Work Phone: [facility] 01-17-2024 13:25-0400 Body mass index (BMI) [Ratio] 34.76 kg/m2 Shanda Cheng EMISSIONS ENGINEER Work Phone: [facility] 01-17-2024 13:25-0400 Body temperature 97.81 [degF] Shanda Cheng EMISSIONS ENGINEER Work Phone: [facility] 01-17-2024 13:25-0400 Body weight 89 kg Shanda Cheng EMISSIONS ENGINEER Work Phone: [facility] 01-17-2024 13:25-0400 Diastolic blood pressure 72 mm[Hg] Shanda Cheng EMISSIONS ENGINEER Work Phone: [facility] 01-17-2024 13:25-0400 Heart rate 84 /min Shanda Cheng EMISSIONS ENGINEER Work Phone: [facility] 01-17-2024 13:25-0400 SaO2% (BldA) [Mass fraction] 98 % Shanda Cheng EMISSIONS ENGINEER Work Phone: [facility] 01-17-2024 13:25-0400 Systolic blood pressure 130 mm[Hg] Shanda Skylar EMISSIONS ENGINEER Work Phone: [facility] 12-20-2023 15:00-0400 Diastolic blood pressure 75 mm[Hg] MD Jackelyn Diggs Work Phone: [facility] 12-20-2023 15:00-0400 Systolic blood pressure 136 mm[Hg] MD Jackelyn Diggs Work Phone: [facility] 12-17-2023 14:48-0400 Heart rate 81 /min MD Jackelyn Diggs Work Phone: [facility] 11-16-2023 15:26-0400 Body height 154.94 cm [facility] 11-16-2023 15:26-0400 Body mass index (BMI) [Ratio] 38.4 kg/m2 [facility] 11-16-2023 15:26-0400 Body temperature 96.1 [degF] [facility] 11-16-2023 15:26-0400 Body weight 92.24 kg [facility] 11-16-2023 15:26-0400 Diastolic blood pressure 79 mm[Hg] [facility] 11-16-2023 15:26-0400 Respiratory rate 20 /min [facility] 11-16-2023 15:26-0400 Systolic blood pressure 171 mm[Hg] [facility] 03-09-2023 11:20-0500 Body height 154.94 cm Jackelyn Diggs Other [facility] [employer] Other 03-09-2023 11:20-0500 Body mass index (BMI) [Ratio] 38.62 kg/m2 Jackelyn Diggs Other [facility] [employer] Other 03-09-2023 11:20-0500 Body temperature 96.7 [degF] Aziz Bakhous Other [employer] Other 03-09-2023 11:20-0500 Body weight 92.72 kg Azsasha Bakhous Other [employer] Other 03-09-2023 11:20-0500 Diastolic blood pressure 60 mm[Hg] Aziz Yinahous Other [employer] Other 03-09-2023 11:20-0500 Respiratory rate 18 /min Jackelyn Wagners Other [employer] Other 03-09-2023 11:20-0500 SaO2% (BldA) [Mass fraction] 97 % Jackelyn Wagners Other [employer] Other 03-09-2023 11:20-0500 Systolic blood pressure 100 mm[Hg] Azsasha Wagners Other [employer] Other 04-07-2022 15:20-0500 Body height 154.94 cm Jackelyn Wagners Other [employer] Other 04-07-2022 15:20-0500 Body mass index (BMI) [Ratio] 39.67 kg/m2 Azsasha Wagners Other [employer] Other 04-07-2022 15:20-0500 Body temperature 97.7 [degF] Aziz Bakhous Other [employer] Other 04-07-2022 15:20-0500 Body weight 95.26 kg Azsasha Bakhous Other [employer] Other 01-10-2023 15:20-0500 Diastolic blood pressure 90 mm[Hg] Jackelyn Diggs Other [employer] Other 04-07-2022 15:20-0500 Respiratory rate 18 /min Jackelyn Diggs Other [employer] Other 04-07-2022 15:20-0500 SaO2% (BldA) [Mass fraction] 97 % Jackelyn Diggs Other [employer] Other 04-07-2022 15:20-0500 Systolic blood pressure 140 mm[Hg] Jackelyn Diggs Other [employer] Other Encounters Encounter Date Encounter Type Care Provider Facility Start: 11-13-2024 End: 11-13-2024 Bamboo flowsheet Nolvia Jimenez EMISSIONS ENGINEER Work Phone: [facility] Start: 11-13-2024 End: 11-13-2024 Bamboo flowsheet Nolvia Tony EMISSIONS ENGINEER Work Phone: [facility] Start: 11-13-2024 End: 11-13-2024 Telephone encounter Nolviaxochilt Jimenez EMISSIONS ENGINEER Work Phone: [facility] Start: 11-13-2024 End: 11-13-2024 ambulatory NOLVIA TONY Not Available Start: 11-13-2024 End: 11-13-2024 Office outpatient visit 25 minutes Nolvia Jimenez EMISSIONS ENGINEER Work Phone: [facility] Comment on above: Epigastric pain (Gemma humble Dx); Morbid (severe) obesity due to excess calories ([facility]); Type 2 diabetes mellitus without complication, without long-term current use of insulin (HCC); Essential (primary) hypertension ; Coronary artery disease involving [place] coronary artery of [place] heart without angina pectoris ; Positive colorectal cancer screening using Cologuard test; Gastroesophageal reflux disease without esophagitis Start: 11-08-2024 End: 11-08-2024 Clinisync Result Encounter Generic External Data Provider [facility] External [facility] Unsolicited Start: 11-08-2024 End: 11-08-2024 Clinisync Result Encounter Generic External Data Provider [facility] External Department Unsolicited Start: 11-01-2024 End: 11-01-2024 ambulatory Imad Asaad Facility[facility] Start: 11-01-2024 Non-patient / Non-visit Imad Asaad [facility] Work Phone: Start: 10-23-2024 End: 11-03-2024 Clinisync Result Encounter Generic External Data Provider [facility] External Department Unsolicited Start: 10-23-2024 End: 11-03-2024 Clinisync Result Encounter Generic External Data Provider [facility] External Department Unsolicited Start: 10-18-2024 End: 10-18-2024 Refill Nolvia Jimenez NP Work Phone: [facility] Comment on above: Bug bite, initial en counter (Primary Dx) Start: 10-12-2024 End: 10-12-2024 Refill Trace Kelly MD Work Phone: [facility] Comment on above: Other hyperlipidemia Start: 10-11-2024 End: 10-11-2024 Orders Only Nolvia Jimenez NP Work Phone: [facility] Comment on above: Other constipation ( Primary Dx); Positive colorectal cancer screening using Cologuard test Start: 10-10-2024 End: 10-10-2024 Office outpatient visit 25 minutes Nolvia Jimenez NP Work Phone: [facility] Comment on above: Essential (primary) hypertension (Primary Dx); Morbid (severe) obesity due to excess calories ([facility]); Other hyperlipidemia ; Type 2 diabetes mellitus [...] Start: 10-10-2024 End: 10-11-2024 Refill Nolvia Jimenez EMISSIONS ENGINEER Work Phone: [facility] Comment on above: Other constipation ( [...] Unsolicited Start: 09-22-2024 End: 09-22-2024 ambulatory ZACK LUU [facility] Start: 09-06-2024 End: 09-06-2024 Transitional care manage srvc 7 day discharge Nolvia Jimenez EMISSIONS ENGINEER Work Phone: [facility] Comment on above: Pneumonia of right l ower lobe due to infectious organism (Primary Dx); Acute hypoxic respiratory failure (CMS/HCC); Coronary artery disease involving [place] coronary artery of [place] heart without angina pectoris (CMS/HCC); Essential (primary) hypertension ; Chronic kidney disease, stage 3b (HCC) (CMS/HCC); Morbid (severe) obesity due to excess calories (CMS/HCC) Start: 09-06-2024 End: 09-06-2024 ambulatory NOLVIA JIMENEZ Not Available Start: 09-04-2024 Evaluation and management of inpatient [facility] Start: 09-03-2024 Evaluation and management of inpatient [facility] Start: 09-03-2024 End: 09-05-2024 Evaluation and management of inpatient GRISELDA HARVEY [facility] Start: 09-03-2024 End: 09-05-2024 Clinisync Result Encounter Generic External Data Provider [facility] External Department Unsolicited Start: 09-03-2024 End: 09-05-2024 Clinisync Result Encounter Generic External Data Provider [facility] External Department Unsolicited Start: 08-02-2024 End: 08-02-2024 Clinisync Result Encounter Nolvia Hitoby EMISSIONS ENGINEER Work Phone: [facility] Unsolicited Start: 08-02-2024 End: 08-02-2024 Clinisync Result Encounter Nolvia Hitoby EMISSIONS ENGINEER Work Phone: [facility] External Department Unsolicited Start: 08-01-2024 End: 08-01-2024 ambulatory [facility] Start: 07-27-2024 End: 07-28-2024 External Result Encounter Nolvia Hiradhasaloni EMISSIONS ENGINEER Work Phone: [facility] External Department Unsolicited Start: 07-27-2024 End: 07-28-2024 External Result Encounter Nolvia Hiradhasaloni EMISSIONS ENGINEER Work Phone: [facility] Unsolicited Start: 07-26-2024 End: 07-26-2024 Clinisync Result Encounter Nolvia Jimenez EMISSIONS ENGINEER Work Phone: [facility] Department Unsolicited Start: 07-26-2024 End: 07-26-2024 Clinisync Result Encounter Nolvia Jimenez EMISSIONS ENGINEER Work Phone: [facility] Department Unsolicited Start: 07-26-2024 End: 07-26-2024 Departed Referred Nolvia Mihaiz Work Phone: [facility] Start: 07-26-2024 End: 07-26-2024 Orders Only Nolvia Hitoby EMISSIONS ENGINEER Work Phone: [facility] Comment on above: Leukocytosis, unspec ified type (Primary Dx) Leukocytosis, unspec ified type (Primary Dx); CRP elevated Start: 07-25-2024 End: 07-25-2024 Clinisync Result Encounter Generic External Data Provider [facility] External Department Unsolicited Start: 07-25-2024 End: 07-25-2024 Clinisync Result Encounter Generic External Data Provider [facility] External Department Unsolicited Start: 07-25-2024 End: 07-25-2024 ambulatory [facility] Work Phone: Start: 07-25-2024 End: 07-25-2024 Patient encounter procedure [facility] Roger Work Phone: Start: 07-17-2024 End: 07-17-2024 Clinisync Result Encounter Generic External Data Provider [facility] External Department Unsolicited Start: 07-17-2024 End: 07-17-2024 Clinisync Result Encounter Generic External Data Provider [facility] External Department Unsolicited Start: 07-17-2024 Non-patient / Non-visit [facility] Work Phone: Start: 07-03-2024 End: 07-03-2024 ambulatory [facility] Start: 06-26-2024 End: 06-26-2024 Clinisync Result Encounter Generic External Data Provider [facility] External Department Unsolicited Start: 06-26-2024 End: 06-26-2024 Clinisync Result Encounter Generic External Data Provider [facility] External Department Unsolicited Start: 06-15-2024 End: 06-15-2024 ambulatory [facility] Start: 06-08-2024 End: 06-08-2024 Office outpatient visit 25 minutes Nolvia Jimenez NP Work Phone: [facility] Comment on above: Essential (primary) hypertension (CMS/HCC) (Primary Dx); Morbid (severe) obesity due to excess calories (CMS/HCC); Body mass index (BMI) 35.0-35.9, adult; Chronic obstructive pulmonary disease, unspecified (CMS/HCC); Chronic kidney disease, stage 3b (HCC) (CMS/HCC); Coronary artery disease involving [place] coronary artery of [place] heart without angina pectoris (CMS/HCC); Hypomagnesemia; Mixed hyperlipidemia (CMS/HCC); Chronic low back pain, unspecified back pain laterality, unspecified whether sciatica present Start: 06-08-2024 End: 06-08-2024 ambulatory NOLVIA JIMENEZ Not Available Start: 06-08-2024 End: 06-08-2024 Bamboo flowsheet Nolvia Jimenez EMISSIONS ENGINEER Work Phone: [facility] Start: 06-08-2024 End: 06-08-2024 Bamboo flowsheet Nolvia Hiradhasaloni EMISSIONS ENGINEER Work Phone: [facility] Start: 05-23-2024 End: 05-23-2024 ambulatory [facility] Start: 05-02-2024 Non-patient / Non-visit [facility] Work Phone: Start: 04-26-2024 End: 04-26-2024 Transitional care manage srvc 7 day discharge Shanda Cheng EMISSIONS ENGINEER Work Phone: [facility] Comment on above: Essential hypertensi on (CMS/HCC) (Primary Dx) Start: 04-26-2024 End: 04-26-2024 ambulatory SHANDA ANDREWSTRICK Not Available Start: 04-26-2024 End: 04-26-2024 Bamboo flowsheet Shanda Cheng EMISSIONS ENGINEER Work Phone: [facility] Start: 04-26-2024 End: 04-26-2024 Bamboo flowsheet Shanda Cheng EMISSIONS ENGINEER Work Phone: [facility] Start: 04-18-2024 End: 04-18-2024 Bamboo flowsheet Shanda Cheng EMISSIONS ENGINEER Work Phone: [facility] Start: 04-18-2024 End: 04-18-2024 Bamboo flowsheet Shanda Cheng EMISSIONS ENGINEER Work Phone: [facility] Start: 04-18-2024 End: 04-18-2024 Office outpatient visit 10 minutes Shanda Cheng EMISSIONS ENGINEER Work Phone: [facility] Comment on above: Irregular heartbeat (Primary Dx) Start: 04-18-2024 End: 04-18-2024 ambulatory SHANDA SKYLAR Not Available Start: 04-03-2024 End: 04-03-2024 Refill Shanda Cheng EMISSIONS ENGINEER Work Phone: [facility] Comment on [...] 01-17-2024 End: 01-17-2024 Bamboo flowsheet Shanda Cheng EMISSIONS ENGINEER Work Phone: [facility] Start: 01-17-2024 End: 01-17-2024 Bamboo flowsheet Shanda Manzanok EMISSIONS ENGINEER Work Phone: [facility] Start: 01-17-2024 End: 01-18-2024 Refill Trace Kelly MD Work Phone: [facility] Comment on above: 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) Start: 01-17-2024 End: 01-17-2024 Assay of hemosiderin, quant Shanda Cheng EMISSIONS ENGINEER Work Phone: [facility] Work Phone: Start: 01-17-2024 End: 01-17-2024 Patient encounter procedure Shanda Cheng EMISSIONS ENGINEER Work Phone: [facility] Comment on above: Routine general medi korin examination at health care facility (Primary Dx) Start: 01-04-2024 End: 01-04-2024 ambulatory [facility] Start: 12-20-2023 End: 12-20-2023 Discharged Recurring MD Jackelyn Diggs Work Phone: [facility] Work Phone: Start: 12-20-2023 End: 12-20-2023 ambulatory MD Jackelyn Diggs Work Phone: [facility] Work Phone: Start: 11-23-2023 End: 11-23-2023 Clinisync Result Encounter Generic External Data Provider [facility] External Department Unsolicited Start: 11-23-2023 End: 11-23-2023 Clinisync Result Encounter Generic External Data Provider [facility] External Department Unsolicited Start: 11-23-2023 Non-patient / Non-visit MD Rowan Diggs Work Phone: [facility] Work Phone: Start: 11-16-2023 End: 11-16-2023 ambulatory [facility] Work Phone: Start: 11-16-2023 End: 11-16-2023 Patient encounter procedure [facility] Nephrology Roger Work Phone: Start: 11-08-2023 Non-patient [facility] Physician [facility] Work Phone: Start: 03-09-2023 End: 03-09-2023 ambulatory Jackelyn Diggs Other [facility] [employer] Other Start: 03-09-2023 Office outpatient vi sit 25 minutes Jackelyn Diggs [facility] Start: 08-03-2022 End: 08-04-2022 ambulatory JACKELYN DIGGS Facility:H1 Start: 07-15-2022 Encounter for other preprocedural examination DR ABBY AZEVEDO [facility] Start: 07-09-2022 End: 07-10-[address] ABBY AZEVEDO Facility:H1 Start: 07-09-2022 End: 07-10-2022 Encounter for other preprocedural examination DR ABBY AZEVEDO Facility:H1 Start: 07-09-2022 ambulatory LUIS SAMSA . Facility :H1 Start: 05-20-2022 End: 05-21-2022 ambulatory LUIS SAMSA . Facility:H1 Start: 04-27-2022 End: 07-08-2022 ambulatory LUIS SAMSA . Facility:H1 Start: 04-15-2022 End: 04-16-2022 ambulatory JACKELYN YINADIONNE Facility:H1 Start: 04-07-2022 End: 04-07-2022 ambulatory Sebastiansasha Yinadionne Other [employer] Other Start: 04-07-2022 Office outpatient ne w 30 minutes Jackelyn Diggs [facility] Start: 01-23-2022 End: 01-24-2022 ambulatory LUIS SAMSA . Facility:H1 Start: 01-19-2022 End: 01-20-2022 ambulatory LUIS SAMSA . Facility:H1 Start: 01-05-2022 End: 01-06-[address] ABRAM CRAFT Facility:H1 Procedures Date Procedure Procedure Detail Performing Clinician Start: 11-08-2024 ALL BASIC METABOLIC PANEL Generic External Data Provider Start: 10-23-2024 ITP Generic Ex ternal Data Provider Start: 10-10-2024 XR CHEST 2V Nolvia bowers [employer] Work Phone: Start: 10-10-2024 XR ABDOMEN 1V Nolvia garcia [employer] ENGINEER Work Phone: Start: 10-10-2024 ALL BASIC METABOLIC [...] ALL CBC WITH AUTO DIFF Nolvia Jimenez [employer] Work Phone: Start: 07-27-2024 Culture bacterial quanttative colony count urine Nolvia Jimenez [employer] ENG[employer] Work Phone: Start: 07-26-2024 ALL CBC WITH AUTO DIFF Nolvia Tony [employer] ENG[employer]ER Work Phone: Start: 07-25-2024 ALL CBC WITH [...] Screening for malign ant neoplasm of colon [facility] Start: 01-16-2025 Medicare Annual Well ness (AWV) Medicare Annual Wellness (AWV) [facility] Start: 01-16-2025 Pneumococcal Vaccine : 65+ Years (1 of 2 - PCV) Pneumococcal Vaccine: 65+ Years (1 of 2 - PCV) [facility] Comment on above: Postponed from 05/25 (Patient Refused) Postponed from 05/25 (Patient Refused) Start: 12-25-2024 End: 12-25-2024 Patient encounter procedure 12/25/2024 2:40 PM EDT Office Visit [facility] [address] [place] [phone] Nolvia Jimenez NP [address] [place] [phone] [facility] Start: 12-04-2024 Hemoglobin A1c measurement Diabetes: Hemoglobin A1C [facility] Start: 11-27-2024 Influenza vaccination [facility] Start: 11-13-2024 End: 11-13-2025 Amylase [Enzymatic activity/volume] in Serum or Plasma Amylase Lab Routine Epigastric pain Expected: 11/13/2024 (Approximate), Expires: 11/13/2025 [facility] Comment on above: Expected: 11/13/2024 (Approximate), Expires: 11/13/2025 Start: 11-13-2024 End: 11-13-2025 Basic metabolic 1998 panel - Serum or Plasma Basic metabolic panel Lab Routine Type 2 diabetes mellitus without complication, without long-term current use of insulin (HCC) Essential (primary) hypertension Epigastric pain Expected: 11/13/2024 (Approximate), Expires: 11/13/2025 [facility] Comment on above: Expected: 11/13/2024 (Approximate), Expires: 11/13/2025 Start: 11-13-2024 End: 11-13-2025 CBC W Auto Differential panel - Blood CBC and differential Lab Routine Epigastric pain Expected: 11/13/2024 (Approximate), Expires: 11/13/2025 [facility] Comment on above: Expected: 11/13/2024 (Approximate), Expires: 11/13/2025 Start: 11-13-2024 End: 11-13-2025 Hepatic function 2000 panel - Serum or Plasma Hepatic function panel Lab Routine Epigastric pain Expected: 11/13/2024 (Approximate), Expires: 11/13/2025 [facility] Comment on above: Expected: 11/13/2024 (Approximate), Expires: 11/13/2025 Start: 11-13-2024 End: 11-13-2025 Lipase [Enzymatic activity/volume] in Serum or Plasma Lipase Lab Routine Epigastric pain Expected: 11/13/2024 (Approximate), Expires: 11/13/2025 [facility] Work Phone: Comment on above: Expected: 11/13/2024 (Approximate), Expires: 11/13/2025 Start: 11-13-2024 End: 11-13-2025 Microalbumin/Creatinine panel in random Urine Microalbumin / creatinine, urine ratio Lab Routine Type 2 diabetes mellitus without complication, without long-term current use of insulin (HCC) Essential (primary) hypertension Expected: 11/13/2024 (Approximate), Expires: 11/13/2025 [facility] Comment on above: Expected: 11/13/2024 (Approximate), Expires: 11/13/2025 Start: 11-13-2024 End: 11-13-2025 Urinalysis complete panel - Urine Urinalysis with reflex microscopic (clean catch) Lab Routine Type 2 diabetes mellitus without complication, without long-term current use of insulin (HCC) Essential (primary) hypertension Epigastric pain Expected: 11/13/2024 (Approximate), Expires: 11/13/2025 [facility] Comment on above: Expected: 11/13/2024 (Approximate), Expires: 11/13/2025 Start: 11-13-2024 End: 11-13-2024 Patient encounter procedure 11/13/2024 1:40 PM EDT Office Visit [facility] [address] [place] [address] Nolvia Jimenez, EMISSIONS ENGINEER [address] [place] [phone] [facility] Start: 11-01-2024 [facility] Start: 10-18-2024 End: 10-18-2024 Patient encounter procedure 10/18/2024 2:20 PM EDT Office Visit [facility] [address] [place] [address] Nolvia Jimenez, EMISSIONS ENGINEER [address] [place] [phone] [facility] Start: 10-10-2024 End: 10-10-2024 Patient encounter procedure 10/10/2024 3:40 PM EDT [facility] [address] [place] [address] Nolvia Jimenez, EMISSIONS ENGINEER [address] [place] [phone] [facility] Start: 09-05-2024 End: 09-05-2024 Patient encounter procedure [facility] Start: 08-03-2024 Influenza vaccination Influenza Vacc ine (#1) [facility] Comment on above: Postponed from 11/27 (Patient Refused) Start: 08-02-2024 End: 07-26-2025 C reactive protein [Mass/volume] in Serum or Plasma C-reactive protein Lab Routine CRP elevated Expected: 08/02/2024 (Approximate), Expires: 07/26/2025 [facility] Comment on above: Expected: 08/02/2024 (Approximate), Expires: 07/26/2025 Start: 08-02-2024 End: 07-26-2025 CBC W Auto Differential panel - Blood CBC and differential Lab Routine Leukocytosis, unspecified type Expected: 08/02/2024 (Approximate), Expires: 07/26/2025 [facility] Work Phone: Comment on above: Expected: 08/02/2024 (Approximate), Expires: 07/26/2025 Start: 07-27-2024 Bacteria identified in Urine by Culture [facility] Start: 07-27-2024 Urine culture [facility] Start: 07-26-2024 End: 07-26-2025 Bacteria identified in Urine by Culture Urine culture (clean catch) Microbiology Routine Leukocytosis, unspecified type Expected: 07/26/2024 (Approximate), Expires: 07/26/2025 [facility] Comment on above: Expected: 07/26/2024 (Approximate), Expires: 07/26/2025 Start: 07-26-2024 End: 07-26-2025 C reactive protein [Mass/volume] in Serum or Plasma C-reactive protein Lab Routine Leukocytosis, unspecified type Expected: 07/26/2024 (Approximate), Expires: 07/26/2025 [facility] Comment on above: Expected: 07/26/2024 (Approximate), Expires: 07/26/2025 Start: 07-26-2024 End: 07-26-2025 CBC W Auto Differential panel - Blood CBC and differential Lab Routine Leukocytosis, unspecified type Expected: 07/26/2024 (Approximate), Expires: 07/26/2025 [facility] Work Phone: Comment on above: Expected: 07/26/2024 (Approximate), Expires: 07/26/2025 Start: 07-26-2024 End: 07-26-2025 Comprehensive metabolic 2000 panel - Serum or Plasma Comprehensive metabolic panel Lab Routine Leukocytosis, unspecified type Expected: 07/26/2024 (Approximate), Expires: 07/26/2025 [facility] Comment on above: Expected: 07/26/2024 (Approximate), Expires: 07/26/2025 Start: 07-26-2024 End: 07-26-2025 Erythrocyte sedimentation rate Sedimentation rate, automated Lab Routine Leukocytosis, unspecified type Expected: 07/26/2024 (Approximate), Expires: 07/26/2025 [facility] Comment on above: Expected: 07/26/2024 (Approximate), Expires: 07/26/2025 Start: 07-26-2024 End: 07-26-2025 Peripheral blood smear Peripheral blood smear Pathology and Cytology Routine Leukocytosis, unspecified type Expected: 07/26/2024 (Approximate), Expires: 07/26/2025 [facility] Comment on above: Expected: 07/26/2024 (Approximate), Expires: 07/26/2025 Start: 07-26-2024 End: 07-26-2025 Urinalysis complete panel - Urine Urinalysis with reflex microscopic (clean catch) Lab Routine Leukocytosis, unspecified type Expected: 07/26/2024 (Approximate), Expires: 07/26/2025 [facility] Comment on above: Expected: 07/26/2024 (Approximate), Expires: 07/26/2025 Start: 06-08-2024 End: 06-08-2024 Patient encounter procedure 06/08/2024 2:40 PM EDT Office Visit [facility] [address] [place] [phone] Nolvia Jimenez NP [address] [place] [address] Coronary artery disease involving [place] coronary artery of [place] heart without angina pectoris (CMS/HCC) (Primary Dx); Morbid (severe) obesity due to excess calories (CMS/HCC); Essential (primary) hypertension (CMS/HCC); Body mass index (BMI) 35.0-35.9, adult; Chronic obstructive pulmonary disease, unspecified (CMS/HCC); Chronic kidney disease, stage 3b (HCC) (CMS/HCC); Hypomagnesemia; Mixed hyperlipidemia (CMS/HCC) [facility] Comment on above: Coronary artery dise ase involving [place] coronary artery of [place] heart without angina pectoris (CMS/HCC) (Primary Dx); Morbid (severe) obesity due to excess calories (CMS/HCC); Essential (primary) hypertension (CMS/HCC); Body mass index (BMI) 35.0-35.9, adult; Chronic obstructive pulmonary disease, unspecified (CMS/HCC); Chronic kidney disease, stage 3b (HCC) (CMS/HCC); Hypomagnesemia; Mixed hyperlipidemia (CMS/HCC) Start: 06-08-2024 End: 06-08-2024 Patient encounter procedure 06/08/2024 1:30 PM EDT Office Visit [facility] [address] [place] [phone] Shanda Cheng NP [address] [place] [address] [facility] Start: 04-26-2024 End: 04-26-2024 Patient encounter procedure 04/26/2024 3:30 PM EST Office Visit [facility] [address] [place] [address] Shanda Cheng NP [address] [place] [address] Arrived [facility] Comment on above: Arrived Start: 04-18-2024 End: 04-18-2024 Patient encounter procedure [facility] Comment on above: Arrived Start: 04-12-2024 Screening for malign ant neoplasm of colon Colorectal Cancer Screening [facility] Comment on above: Postponed from 05/25 (Patient Refused) Start: 03-13-2024 Influenza vaccination Influenza Vacc ine (#1) [facility] Comment on above: Postponed from 11/27 (Patient Refused) Start: 01-17-2024 End: 01-17-2024 Patient encounter procedure 01/17/2024 1:00 PM EDT Office Visit [facility] [address] [place] [address] Shanda Cheng NP [address] [facility] [place] [address] [facility] Start: 01-15-2024 Medicare Annual Well ness (AWV) Medicare Annual Wellness (AWV) [facility] Start: 11-28-2023 Influenza vaccination Influenza Vacc ine (#1) [facility] Start: 01-10-2019 Urine screening for protein Diabetes: Urine Protein Screening [facility] Start: 1963 Glaucoma screening Diabetes: R etinopathy Screening [facility] Start: 1959 Pneumococcal Vaccine : 65+ Years (1 of 2 - PCV) Pneumococcal Vaccine: 65+ Years (1 of 2 - PCV) [facility] Start: 1953 Screening for malign ant neoplasm of colon [facility] Start: 1953 Screening for malign ant neoplasm of lung Lung Cancer Screening Shared Decision Making [facility] BLOOD CULTURE 1 BLOOD CULTURE 1 Lab Routine 09/03/2024 4:58 AM EDT [facility] BLOOD CULTURE 2 BLOOD CULTURE 2 Lab Routine 09/03/2024 5:52 AM EDT [facility] Patient Education Colon Strictur e (DC) [facility] Diverticulosis Discharge Instructions [facility] Hemorrhoids Discharge Instructions Know your Meds [facility] Colon Polypectomy Discharge Instructions [facility] Work Phone: Renal function 1999 panel - Serum or Plasma [facility] Renal function 1999 panel - Serum or Plasma [facility] Payers Date Payer Category Payer Medicare [employer]M MEDICARE ADVANTAGE ANTH MEDICARE ADVANTAGE [id number] 2020-Present [address] [place] [address] [id number] 2020 Medicare (Managed Care) [employer] ADVANTAGE Member Subscriber Plan / Payer (Effective 2020-Present) Name: Chiara Eduardo Relation to Subscriber: Self Name: Chiara Eduardo Payer ID: Not on file Group ID: [id number] Type: Not on file Address: [address] [id number] 1961 Medicare [id number] 1959 Self-pay 1953 Unknown [id number] 2.16.840.1.275548.3.579. 2.593 1953 Unknown [id number] 2.16.840.1.724130.3.579. 2.593 1953 Unknown [id number] 2.16.840.1.045697.3.579. 2.593 1953 Unknown [id number] 2.16.840.1.105064.3.579. 2.593 1953 Unknown [id number] 2.16.840.1.923387.3.579. 2.593 1953 Unknown [id number] 2.16.840.1.613774.3.579. 2.593 1953 Unknown [id number] 2.16.840.1.396600.3.579. 2.593 1953 Unknown [id number] 2.16.840.1.944433.3.579. 2.593 1953 Unknown [id number] 2.16.840.1.289250.3.579. 2.1259 1953 Unknown [id number] 2.16.840.1.378312.3.579. 2.9 1953 Unknown [id number] 2.16.840.1.288902.3.579. 2.9 1953 Unknown [id number] 2.16.840.1.003271.3.579. 2.1258 1953 Unknown [id number] 2.16.840.1.173055.3.579. 2.1258 1953 Unknown [id number] 2.16.840.1.623464.3.579. 2.9 1953 Unknown [id number] 2.16.840.1.139583.3.579. 2.1259 Unknown [id number] 2.16.840.1.207402.3.579. 2.593 Unknown [id number] 2.16.840.1.010442.3.579. 2.531 Unknown [id number] 2.16.840.1.096719.3.579. 2.531 Unknown [id number] 2.16.840.1.059376.3.579. 2.531 Social History Date Type Detail Facility Unknown if ever smoked [employer] Other Start: 04-12-2023 End: 06-08-2024 Sex Assigned At [employer] Other Start: 11-16-2023 End: 04-18-2024 Tobacco smoking status MIIS Ex-smoker (finding) [facility] Start: 1955 Sex Assigned At Female [facility] Start: 03-29-1985 End: 03-29-2015 History of tobacco use Current smoker [facility] Start: 03-29-1985 End: 03-29-2015 History of tobacco use Cigarette Smoker [facility] Start: 04-12-2023 End: 06-08-2024 Cigarettes smoked current (pack per day) - Reported 1 [facility] Start: 04-12-2023 End: 04-18-2024 Tobacco use and exposure Smokeless tobacco non-user [facility] Start: 04-12-2023 End: 11-13-2024 Alcoholic beverage intake Lifetime non-drinker (finding) [facility] [...] to any clubs or organizations such as restorationism groups, unions, fraternal or athletic groups, or school groups? No [facility] Are you now , , , , never or living with a partner? [facility] How often to you hav e a drink containing alcohol? Never [facility] (I/We) worried wheondina er (my/our) food would run out before (I/we) got money to buy more. Never true [facility] Start: 07-25-2024 End: 07-28-2024 Sex Female (finding) [facility] Goals Date Patient Goal Desired Activity /State Clinical Notes 04-07-2022 to 11-13-2024 Telephone Encounter - Nolvia Jimenez NP - 11/13/2024 2:27 PM EDTTelephone Encounter - Nolvia Jimenez NP - 11/13/2024 2:27 PM EDPankaj Jimenez NP - 11/13/2024 2:26 PM EDTPatient Instructions Note Date & Type Note Facility 11-13-2024 Telephone encounter Note Form atting of this note might be different from the original. Please call up to GI in [place], see if we can schedule an appt for epigastric pain, NV May need EGD They saw her recently for colonoscopy [place] [facility] 11-13-2024 Miscellaneous Notes Formattin g of this note might be different from the original. Please call up to GI in [facility], see if we can schedule an appt for epigastric pain, NV May need EGD They saw her recently for colonoscopy [place] documented in this encounter [facility] 11-13-2024 History of Presen t illness Narrative Associated Problem(s): Epigastric pain Will have her stop omeprazole Trial pantoprazole Check labs No gallbladder Will reach out to GI about scheduled for possible EGD etc NV? Related to meds, DD or gastroporesis 3L 95% on room air Images from the original note were not included. Chiara Eduardo is a 69 y.o. female presents with chief complaint of Hypertension HPI: Here for recheck: since last appt has had her colonoscopy, see report, had polyps and will have fu in 6 months for another scope Is now bowels are moving, daily, is getting a good amount out, continues with fiber, will use miralax if cannot go Still with NV. Vomiting 1-4 times daily, no relation to eating/drinking, does not feel this is related to certain food intake. No blood, +bile, +food. No heart burn, +does get pain across upper abd, no fever, no blood stools . Did not have EGD at time of scope Has been happening like this on and off for about 2 years SUBJECTIVE: MEDICATIONS: Current Outpatient Medications Medication Instructions albuterol HFA 90 mcg/act inhaler 2 puffs, Every 4 hours PRN aspirin (ADULT ASPIRIN REGIMEN) 81 mg, Daily atorvastatin (LIPITOR) 80 mg, Oral, Nightly cholecalciferol (VITAMIN D-3) 25 mcg, Oral, Daily cyclobenzaprine (FLEXERIL) 5 mg, Oral, 3 times daily PRN Dupilumab (Dupixent) 300 MG/2ML solution auto-injector as directed Subcutaneous Farxiga 10 mg, Every morning Fluticasone-Salmeterol 250-50 MCG/ACT aerosol powder 1 puff, 2 times daily furosemide (LASIX) 40 mg, Daily ipratropium-albuterol (Duo-Neb) 0.5-2.5 mg/3 mL nebulizer solution 3 mL, Every 6 hours RT isosorbide mononitrate ER (IMDUR) 60 mg, Daily MAGNESIUM PO 200 mg, Daily RT metoprolol succinate XL (TOPROL-XL) 50 mg, 2 times daily nitroglycerin (NITROSTAT) 0.4 mg, Every 5 min PRN olmesartan (BENICAR) 40 mg, Daily pantoprazole (PROTONIX) 40 mg, Oral, Daily before breakfast, Do not crush, chew, or split. Trelegy Ellipta 100-62.5-25 MCG/ACT aerosol powder 1 [...] chest pain and palpitations. Gastrointestinal: Positive for nausea and vomiting. Negative for abdominal pain, blood in stool, constipation and diarrhea. Genitourinary: Negative for difficulty urinating, [...] in her mother. OBJECTIVE: Visit Vitals BP 110/72 (BP Location: Left arm, Patient Position: Sitting, BP Cuff Size: Adult long) Pulse 73 Temp 98.5 F (Temporal) Resp 20 Wt 191 lb 12.8 oz SpO2 95% BMI 33.98 kg/m Smoking Status Former BSA 1.97 m Physical Exam Vitals and nursing note [...] heard. Pulmonary: Effort: Pulmonary effort is normal. Breath sounds: Normal breath sounds. No wheezing or rhonchi. Abdominal: General: Bowel sounds are normal. There is no distension. Palpations: Abdomen is soft. There is no mass. Tenderness: There is no abdominal tenderness (generalized). Musculoskeletal: General: Normal range of motion. Cervical back: Normal range of motion and neck supple. Right lower leg: Edema present. Left lower leg: Edema present. Skin: General: Skin is warm and dry. Capillary Refill: Capillary refill takes 2 to 3 seconds. Findings: No rash. Neurological: General: No focal deficit present. Mental Status: She is alert and oriented to person, place, and time. Psychiatric: Mood and Affect: Mood normal. Behavior: Behavior normal. Thought Content: Thought content normal. Judgment: Judgment normal. ASSESSMENT AND PLAN: Follow up in about 6 weeks (around 12/25/2024) for Recheck. Problem List Items Addressed This Visit Coronary artery disease involving [place] coronary artery of [place] heart without angina pectoris (Chronic) Takes asa, statin, imdur, b shyam, ARB, nitroglycerin prn Morbid (severe) obesity due to excess calories (CMS-HCC) Discussed with patient their BMI (actual, verses [...] changes Current meds: arb, b shyam, nitrate Relevant Orders Basic metabolic panel Urinalysis with reflex microscopic (clean catch) Microalbumin / creatinine, urine ratio Type 2 diabetes mellitus without complications (HCC) HTN, HLD Relevant Orders Basic metabolic panel Urinalysis with reflex microscopic (clean catch) Microalbumin / creatinine, urine ratio Positive colorectal cancer screening using Cologuard test Had colonoscopoy 11/01/24 2 polyps: 2cm cecum, 1.5cm ascending colon, as wells as hemorrhoids, started on miralax and metamucil Repeat colonoscopy in 6 months Epigastric pain - Primary Will have her stop omeprazole Trial pantoprazole Check labs No gallbladder Will reach out to GI about scheduled for possible EGD etc NV? Related to meds, DD or gastroporesis Relevant Orders Lipase Amylase Basic metabolic panel CBC and differential Urinalysis with reflex microscopic (clean catch) Hepatic function panel Gastroesophageal reflux disease without esophagitis Relevant Medications pantoprazole (ProtoNix) 40 MG EC tablet Associated Problem(s): Positive colorectal cancer screening using Cologuard test Had colonoscopoy 11/01/24 2 polyps: 2cm cecum, 1.5cm ascending colon, as wells as hemorrhoids, started on miralax and metamucil Repeat colonoscopy in 6 months Associated Problem(s): Coronary artery disease involving [place] coronary artery of [place] heart without angina pectoris Takes asa, statin, imdur, b shyam, ARB, nitroglycerin prn Associated Problem(s): Essential (primary) hypertension Please check blood pressure daily and record DASH diet Limit caffeine Take medication as directed Contact office if chest pain, pressure, dizziness, shortness of breath, swelling legs Recommend slow position changes Current meds: arb, b shyam, nitrate Associated Problem(s): Type 2 diabetes mellitus without complications (HCC) HTN, HLD Associated Problem(s): Morbid (severe) obesity due to excess calories ([facility]CC) Discussed with patient their BMI (actual, verses recommended). We have also discussed lifestyle modifications: attempts to perform physical activity as chronic conditions allow, also to monitor dietary intake: increasing protein/fruits/veggies and lowering carb intake (unless contraindicated). Limit sodas, juices, and sugary drinks. documented in this encounter [facility] 11-13-2024 Instructions Nolvia Jimenez NP - 11/13/2024 1:40 PM EDT Stop omeprazole, trial pantoprazole 40mg daily Check labs Will call up to GI doctor to see if can get appt documented in this encounter [facility] 11-13-2024 Evaluation note Diagnosis Stage 3a chronic kidney disease ([facility]-HCC)- Primary Other hyperlipidemia Coronary artery disease involving [place] coronary artery of [place] heart without angina pectoris Irregular heartbeat- Primary Unspecified cardiac dysrhythmia Essential (primary) hypertension- Primary Unspecified essential hypertension Morbid (severe) obesity due to excess calories ([facility]-HCC) Body mass index (BMI) 35.0-35.9, adult Chronic obstructive pulmonary disease, unspecified (HCC) Chronic kidney disease, stage 3b ([facility]-HCC) Coronary artery disease involving [place] coronary artery of [place] heart without angina pectoris Hypomagnesemia Disorders of magnesium metabolism Mixed hyperlipidemia Mixed hyperlipidemia Chronic low back pain, unspecified back pain laterality, unspecified whether sciatica present Pneumonia of right lower lobe due to infectious organism- Primary Acute hypoxic respiratory failure (HCC) Coronary artery disease involving [place] coronary artery of [place] heart without angina pectoris Essential (primary) hypertension Unspecified essential hypertension Chronic kidney disease, stage 3b (CMS-HCC) Morbid (severe) obesity due to excess calories ([facility]) Essential (primary) hypertension- Primary Unspecified essential hypertension Morbid (severe) obesity due to excess calories ([facility]-HCC) Other hyperlipidemia Type 2 diabetes mellitus without complications (HCC) Emphysema, unspecified (HCC) Chronic obstructive pulmonary disease with acute exacerbation (HCC) Other constipation Heart failure, unspecified HF chronicity, unspecified heart failure type ([facility]) Epigastric pain- Primary Abdominal pain, epigastric Morbid (severe) obesity due to excess calories ([facility]-HCC) Type 2 diabetes mellitus without complication, without long-term current use of insulin (HCC) Essential (primary) hypertension Unspecified essential hypertension Coronary artery disease involving [place] coronary artery of [place] heart without angina pectoris Positive colorectal cancer screening using Cologuard test Gastroesophageal reflux disease without esophagitis Esophageal reflux documented in this encounter [facility] [id number] Telephone encounter Note* Telephone Encounter - Nolvia Jimenez NP - 10/18/2024 3:05 PM EDT Came in with her for his appt today, bug bites bilat posterior thigh area near bend of knee, buttock area and lower back. Was working in flower bed and laid on the ground, +itchy and painful Does not look zoster in appearance or infectious No steroids d/t CHF etc Will provide steroid cream if not better contact office [facility] [id number] Miscellaneous Notes* Telephone Encounter - Novlia Jimenez NP - 10/18/2024 3:05 PM EDT Came in with her for his appt today, bug bites bilat posterior thigh area near bend of knee, buttock area and lower back. Was working in flower bed and laid on the ground, +itchy and painful Does not look zoster in appearance or infectious No steroids d/t CHF etc Will provide steroid cream if not better contact office documented in this encounterH[facility] [id number] Evaluation note* Diagnosis Stage 3a chronic kidney disease (CMS-HCC)- Primary Other hyperlipidemia Coronary artery disease involving [place] coronary artery of [place] heart without angina pectoris Irregular heartbeat- Primary Unspecified cardiac dysrhythmia Essential (primary) hypertension- Primary Unspecified essential hypertension Morbid (severe) obesity due to excess calories (CMS-HCC) Body mass index (BMI) 35.0-35.9, adult Chronic obstructive pulmonary disease, unspecified (HCC) Chronic kidney disease, stage 3b (CMS-HCC) Coronary artery disease involving [place] coronary artery of [place] heart without angina pectoris Hypomagnesemia Disorders of magnesium metabolism Mixed hyperlipidemia Mixed hyperlipidemia Chronic low back pain, unspecified back pain laterality, unspecified whether sciatica present Pneumonia of right lower lobe due to infectious organism- Primary Acute hypoxic respiratory failure (HCC) Coronary artery disease involving [place] coronary artery of [place] heart without angina pectoris Essential (primary) hypertension [...] (HCC) Other hyperlipidemia documented in this encounter [facility] [id number] Evaluation note* Diagnosis Stage 3a chronic kidney disease (CMS-HCC)- Primary Other hyperlipidemia Coronary artery disease involving [place] coronary artery of [place] heart without angina pectoris Irregular heartbeat- Primary Unspecified cardiac dysrhythmia Essential (primary) hypertension- Primary Unspecified essential hypertension Morbid (severe) obesity due to excess calories (CMS-HCC) Body mass index (BMI) 35.0-35.9, adult Chronic obstructive pulmonary disease, unspecified (HCC) Chronic kidney disease, stage 3b (CMS-HCC) Coronary artery disease involving [place] coronary artery of [place] heart without angina pectoris Hypomagnesemia Disorders of magnesium metabolism Mixed hyperlipidemia Mixed hyperlipidemia Chronic low back pain, unspecified back pain laterality, unspecified whether sciatica present Pneumonia of right lower lobe due to infectious organism- Primary Acute hypoxic respiratory failure (HCC) Coronary artery disease involving [place] coronary artery of [place] heart without angina pectoris Essential (primary) hypertension [...] Other constipation- Primary documented in this encounter [facility] [id number] Evaluation note* Diagnosis Stage 3a chronic kidney disease (CMS-HCC)- Primary Other hyperlipidemia Coronary artery disease involving [place] coronary artery of [place] heart without angina pectoris Irregular heartbeat- Primary Unspecified cardiac dysrhythmia Essential (primary) hypertension- Primary Unspecified essential hypertension Morbid (severe) obesity due to excess calories (CMS-HCC) Body mass index (BMI) 35.0-35.9, adult Chronic obstructive pulmonary disease, unspecified (HCC) Chronic kidney disease, stage 3b (CMS-HCC) Coronary artery disease involving [place] coronary artery of [place] heart without angina pectoris Hypomagnesemia Disorders of magnesium metabolism Mixed hyperlipidemia Mixed hyperlipidemia Chronic low back pain, unspecified back pain laterality, unspecified whether sciatica present Pneumonia of right lower lobe due to infectious organism- Primary Acute hypoxic respiratory failure (HCC) Coronary artery disease involving [place] coronary artery of [place] heart without angina pectoris Essential (primary) hypertension [...] using Cologuard test documented in this encounter [facility] [id number] History of Present illness Narrative* Nolvia Jimenez NP - 10/10/2024 5:43 PM EDTAssociated Problem(s): Heart failure (HCC) I did contact [facility] cardiology office updated on vital signs, weight and exam They will message block breaker to see about diuretic Check cxr * [...] can not catch her breath * Nolvia Jimenez, NIXON - 10/10/2024 3:40 PM EDT Images from [...] spironolactone (ALDACTONE) 25 mg, Oral, Every morning Treleene Ellipta 100-62.5-25 MCG/ACT aerosol powder 1 puff, [...] nodules SIADH (syndrome of inappropriate ADH production) ([facility]) Stroke ([facility]) Past Surgical History: Procedure Laterality Date CARDIAC [...] Morbid (severe) obesity due to excess calories ([facility]HCC) - Primary Discussed with patient their BMI [...] xray Heart failure (HCC) I did contact [facility] cardiology office updated on vital signs, weight and exam They will message block breaker to see about diuretic Check cxr Other Visit Diagnoses Emphysema, unspecified (HCC) * Nolvia Jimenez NP - 10/10/2024 6:53 AM EDTAssociated Problem(s): Type 2 diabetes mellitus without complications ([facility]) HTN, HLD * Nolvia Jimenez NP - 10/10/2024 6:49 AM EDTAssociated Problem(s): Morbid (severe) obesity due to excess calories ([facility]) Discussed with patient their BMI (actual, verses recommended). We have also discussed lifestyle modifications: attempts to perform physical activity as chronic conditions allow, also to monitor dietary intake: increasing protein/fruits/veggies and lowering carb intake (unless contraindicated). Limit sodas, juices, and sugary drinks. documented in this encounterHannibal [facility] [id number] Instructions* Patient Instructions* Nolvia Jimenez NP - 10/10/2024 3:40 PM EDT Check xray: abd, and chest xray I will call [facility] Cardiology about shortness of breath, possibly do something different with water pills If worsening go to Er documented in this encounterHannibal [facility] [id number] Evaluation note* Diagnosis Stage 3a [facility] Primary Other hyperlipidemia Coronary artery disease involving [place] coronary artery of [place] heart without angina pectoris Irregular heartbeat- Primary Unspecified cardiac dysrhythmia Essential (primary) hypertension- Primary Unspecified essential hypertension Morbid (severe) obesity due to excess calories ([facility]) Body mass index (BMI) 35.0-35.9, adult Chronic obstructive pulmonary disease, unspecified (HCC) Chronic kidney disease, stage 3b (CMS-HCC) Coronary artery disease involving [place] coronary artery of [place] heart without angina pectoris Hypomagnesemia Disorders of magnesium metabolism Mixed hyperlipidemia Mixed hyperlipidemia Chronic low back pain, unspecified back pain laterality, unspecified whether sciatica present Pneumonia of right lower lobe due to infectious organism- Primary Acute hypoxic respiratory failure (HCC) Coronary artery disease involving [place] coronary artery of [place] heart without angina pectoris Essential (primary) hypertension [...] unspecified HF chronicity, unspecified heart failure type ([facility]) documented in this encounter [facility] [id number] NoteSUBJECTIVE Reason for Visit: Chiara Eduardo is a 69 y.o. year old female patient being seen for follow-up hospital visit, NSTEMI. HPI: Chiara Eduardo is a 69 y.o. year old female with significant medical history coronary artery disease, prior stent placement, COPD, History of acute inferior wall CA, HT, HLP, CKD, obesity Recent hospital course [...] felt to be related to type II CA. Of note patient had cardiac cath in [...] Daily atorvastatin (LIPITOR) 80 mg, oral, Daily nmhpvhampp-oaotycju-abzfqiedcw (Breztri Aerosphere) 160-9-4.8 mcg/actuation HFA aerosol inhaler [...] Rate 09/03/2024 90 Atrial Rate 09/03/2024 90 SC Interval 09/03/2024 (more content not included)...[facility]06-27-2025 NotePatient is here today for a follow up. Patient states she is doing ok. 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 Chiara Eduardo is a 69 y.o. 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 apt 09/22 3:[address] appt 09/19 [...] Oral, Daily azithromycin (ZITHROMAX) 500 mg, Daily Naucpvf-Gcakhrupfoq-Hmwbnareqq (Breztri Aerosphere) 160-9-4.8 MCG/ACT aerosol 160 mcg, [...] Addressed This Visit Coronary artery disease involving [place] coronary artery of [place] heart without angina pectoris (CMS/HCC) (Chronic) Reviewed cardiology notes from [facility] Did not feel elevated trop was related to CA Morbid (severe) obesity due to excess calories [...] with pulmonology next week documented in this [facility]06-11-2025 Instructions* Patient Instructions* Nolvia Jimenez NP - 09/06/2024 3:00 PM EDT No med dose changes Purse lipped breathing as well documented in this encounterHannibal [facility] [id number] Evaluation note* Diagnosis Stage 3a chronic kidney disease (HCC) ([facility])- Primary Other hyperlipidemia Coronary artery disease involving [place] coronary artery of [place] heart without angina pectoris ([facility]/HCC) Irregular heartbeat- Primary Unspecified cardiac dysrhythmia Essential (primary) hypertension- Primary Unspecified essential hypertension Morbid (severe) obesity due to excess calories ([facility]) Body mass index (BMI) 35.0-35.9, adult Chronic obstructive pulmonary disease, unspecified Chronic kidney disease, stage 3b (HCC) ([facility]/HCC) Coronary artery disease involving [place] coronary artery of [place] heart without angina pectoris ([facility]) Hypomagnesemia Disorders of magnesium metabolism Mixed hyperlipidemia Mixed hyperlipidemia Chronic low back pain, unspecified back pain laterality, unspecified whether sciatica present Pneumonia of right lower lobe due to infectious organism- Primary Acute hypoxic respiratory failure ([facility]/HCC) Coronary artery disease involving [place] coronary artery of [place] heart without angina pectoris ([facility]/HCC) Essential (primary) hypertension Unspecified essential hypertension Chronic kidney disease, stage 3b (HCC) ([facility]/HCC) Morbid (severe) obesity due to excess calories ([facility]) documented in this encounter [facility] [id number] NoteHospital Medicine Discharge Summary Final Discharge Diagnosis: 1. Acute hypoxemic respiratory failure secondary to COPD exacerbation as well as right lower lobe pneumonia 2. Drop in EF to 44% compared to stress test in 2022 reported normal ejection fraction 3. Elevated troponins likely type II CA Admission Diagnosis: NSTEMI (non-ST elevated myocardial infarction) ([facility]) [I21.4] Hospital course: Chiara Eduardo is a 69 y.o. female with a history of coronary artery disease, prior stent placement, COPD, History of acute inferior wall CA, HT, HLP, CKD, obesity presented with shortness [...] felt to be related to type II CA. Of note patient had cardiac cath in [...] 160-9-4.8 mcg/actuation HFA aerosol inhaler Generic drug: gqgyzpteyc-ilvcxkwy-jnqmsiolag cholecalciferol 50 MCG (2000 UT) tablet Commonly [...] Medications These medications were sent to [facility] [address] [place] [address] [place] [address], [facility] [address] azithromycin 500 mg tablet cefpodoxime 200 mg [...] 133* 134* POTASSIUM mmol/ (more content not included)...[facility]06-10-2025 Note09/05/24 1018 Home Oxygen Therapy Evaluation Pulse Oximetry on room air at Rest 93 Pulse Ox on room air while walking 85 Pulse Ox on O2 with nasal cannula while walking 92 Patient Qualification for home oxygen Qualifies No oxygen required at rest 3 lpm required to keep spo2 > 90%[facility]06-10-2025 NotePhysical Therapy Physical Therapy Evaluation Patient [...] Chief Complaint Patient is direct admitted from [facility] with shortness of breath. History of Present Illness Chiara Eduardo is an 69 y.o. female who came from home with shortness of breath. Patient has history of COPD, quit smoking 2016, on Lasix 20 mg every other day, started having worsening shortness of breath, and acute on chronic abdominal pain last night, she presented to [facility], found to have right lower lobe pneumonia, with increasing troponin to 78.9, lactic of 3.2, patient was started on heparin drip, antibiotics, and was sent to [facility] for further workup. At time of arrival around 5 PM, patient was lying in bed, on nonrebreather, satting 100%, complaining of mild lower abdominal pain, no chest pain, cough, palpitation, or any other related symptoms. PT Diagnosis: weakness, impaiired functional mobility. Patient Active Problem List Diagnosis Bladder prolapse, female, acquired Chronic GERD COPD (chronic obstructive pulmonary disease) (CMS/HCC) Coronary artery disease involving [place] coronary artery of [place] heart without angina pectoris Diuretic-induced hypokalemia Essential hypertension Former smoker Health care maintenance History of acute inferior wall CA Lower back pain Mixed hyperlipidemia Severe obesity (BMI 35.0-39.9) with comorbidity (CMS/HCC) Shortness of breath Chest pain Arrhythmia Anemia Hypomagnesemia Hyponatremia Non-sustained ventricular tachycardia (CMS/HCC) History of tobacco use 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 No Living Arrangement (Current/Prior to Hospitalization) Private residence Does the patient have history of HHC or SNF? Yes (Is active with a HHC service called [facility] this is through insurance [place] for renal care.) Assistive Device Cane;Other [...] you able to send link and activate AudioSnapshart? AudioSnapshart already active [facility]06-09-2025 NoteSpiritual Care Note Patient name: Chiara Eduardo Age: 69 y.o. Room: [address] [place] [address] 09/04/24 1710 Clinical Encounter Type Visited With Patient Type of Visit Advance Directives Last Visit Date 09/04/24 Referral From Nurse Patient Spiritual Care Encounters Spiritual Care Assessment Hopeful;Coping with diagnoses (Pt seemed to be coping with situation. Pt completed ADV DIR's naming as agent and three daughters as alternates.) Pastoral Intervention Advance directives;Emotional support;Spiritual support (Government Employee assisted pt with completing ADV DIR. Copies made, original & copies returned to pt, copy placed in pt chart.) Response AppreciativeUnFulton County [facility]06-09-2025 Note Occupational Therapy Occupational Therapy Evaluation Patient Name: Chiara Eduardo : 1955 Today's Date: 09/04/2024 Time In: 1317 Time Out: 1336 Chiara Eduardo is an 69 y.o. female who came from home with shortness of breath COPD (chronic obstructive pulmonary disease) ([facility]HCC) Acute hypoxic respiratory failure General Subjective: friendly and cooperative Patient Active Problem List Diagnosis Bladder prolapse, female, acquired Chronic GERD COPD (chronic obstructive pulmonary disease) ([facility]) Coronary artery disease involving [place] coronary artery of [place] heart without angina pectoris Diuretic-induced hypokalemia Essential hypertension Former smoker Health care maintenance History of acute inferior wall CA Lower back pain Mixed hyperlipidemia Severe obesity (BMI 35.0-39.9) with comorbidity ([facility]) Shortness of breath Chest pain Arrhythmia Anemia Hypomagnesemia Hyponatremia Non-sustained ventricular tachycardia ([facility]) History of tobacco use Other penitentiary (current) 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 PVC (premature ventricular contraction) Multiple pulmonary nodules Irregular heartbeat Stage 3a chronic kidney disease ([facility]) Body mass index (BMI) 35.0-35.9, adult Angina pectoris, unstable ([facility]) CRP elevated Elevated WBC count NSTEMI (non-ST elevated myocardial infarction) ([facility]) Pneumonia Acute hypoxic respiratory failure ([facility]) Elevated troponin Past Medical History: Diagnosis Date Abnormal ECG Chronic GERD 12/28/2016 Chronic kidney disease COPD (chronic obstructive pulmonary disease) ([facility]) Coronary artery disease Coronary artery disease involving [place] coronary artery of [place] heart without angina pectoris 12/28/2016 Essential hypertension [...] With: Spouse Home Adaptive Equipment: Cane, Rollator (dc, [facility]) Home Layout: Multi-level, Bed/bath upstairs (tri level , bed and bath up 4 steps with rail) Home Access: Stairs to enter with rails (4) Bathroom Shower/Tub: Tub/shower unit Prior Level of Function Prior Function Level of [place]: Independent with ADLs and functional transfers, Independent [...] Eating meals?: None (Independent) Total Score OT [facility]: 21 Assessment/Plan OT Assessment OT Impairments: [...] OT Plan: Skilled OT (more content not included)...[facility]06-09-2025 NoteLikely type II CA, supply/demand mismatch EKG shows sinus rhythm with PVCs Echo pendingUnFulton County Health Center06-09-2025 NoteSecondary to right lower lobe pneumonia likely component of CHF Echocardiogram pending Continue current antibiotics with Rocephin and Zithromax Lasix switched to 40 mg daily instead of every other day 20 mg Continue DuoNeb as needed Sputum culture has few gram-positive cocci in pairs Influenza A/B negative as well as COVID-19. Mycoplasma PCRUnFulton County Health Center06-09-2025 NotePatient at home on oral prednisone 10 mg daily Continue Dulera and Incruse Ellipta DuoNeb as neededCherrington Hospital06-09-2025 NoteHospital Medicine Daily Progress Note - 09/04/2024 12:26 PM; Room: [facility]3/[id number] Admission: 09/03/2024 4:20 PM; Length of stay: 1 days THE HOSPITALIST TEAM PREFERS TO USE [employer] FOR NON-URGENT COMMUNICATION 7AM-7PM. IF I DO NOT RESPOND WITHIN 20 MINUTES OR URGENT MATTERS, PLEASE CALL THROUGH THE [employer]. FROM 7PM-7AM, PLEASE PAGE [phone](COVR). Code Status: Full Code Barriers to Discharge: [...] Mycoplasma PCR Elevated troponin Likely type II CA, supply/demand mismatch EKG shows sinus rhythm with [...] Care () (pending PT/OT evals) Signed Rhea Manning MD Hospital Medicine 09/04/2024 12:26 PMUnFulton County Health Center06-09-2025 Note- Patient was requiring nonrebreather upon arrival to [facility] - has been switched to high flow nasal cannula - Patient was on Lasix 20 mg every other day - switching to 40 mg daily, monitor I's and O's and daily weight - Continue with DuoNeb as needed No associated orders from this encounter found during lookback period of 72 hours.[facility]06-09-2025 Note- Patient was requiring nonrebreather upon arrival to [facility] - has been switched to high flow nasal cannula -Chest x-ray at [facility] showed right lower lobe pneumonia - 09/04/2024 x-ray done at [facility] was consistent with the previously mentioned [...] encounter found during lookback period of 72 hours.[facility]06-09-2025 Note- Currently on Breztri at home, not on home oxygen as of now - Patient is a former smoker, there is no need for smoking cessation counseling at this time No associated orders from this encounter found during lookback period of 72 hours.[facility]06-09-2025 NoteCoronary artery disease is unchanged. Continue [...] encounter found during lookback period of 72 hours.[facility]06-09-2025 NoteAdult Nutrition Assessment: Name: Chiara Eduardo Date: 1955 Date of Visit: 09/04/24 Admission Dx: NSTEMI (non-ST elevated myocardial infarction) ([facility]) [I21.4] Reason for assessment: high risk PO and COPD Information obtained from: patient and medical record Past Medical History: Diagnosis Date Abnormal ECG Chronic GERD 12/28/2016 Chronic kidney disease COPD (chronic obstructive pulmonary disease) ([facility]) Coronary artery disease Coronary artery disease involving [place] coronary artery of [place] heart without angina pectoris 12/28/2016 Essential hypertension [...] Labs: 0 Lab Value Date/Time BUN 24 09/04/2024416 CREATININE 1.21 (H) 09/04/2024 041 NA 133 (L) 09/04/2024 041 K 4.5 09/04/2024 041 MG 1.8 (L) 09/04/2024 041 HGBA1C 6.6 (H) 09/03/2024 170 HGB 10.4 (L) 09/04/2024 041 WBC 19.91 (H) 09/04/2024 0417 CHOL 125 [...] day. Breakfast will be things like bagels, korean muffins, eggs, sausage, cote, hash browns, or [...] of Nutrition and Dietetics (AND) and the [place] Society of Enteral and Parenteral Nutrition (ASPEN). [...] To reach the Clinical Dietitian, please utilize EPIC chat (more content not included)...[facility]06-09-2025 NoteSubjective Chiara Eduardo is a 69 year old female who reported shortness of breath yesterday. She has a PMH including COPD, HTN, HLD, and chronic GERD. She quit smoking in 2017. She presented to [facility] last night with shortness of breath and acute on chronic abdominal pain. X-ray showed right lower lobe pneumonia with increased troponin of 78.9 and lactic acid of 3.2. She was started on heparin drip, given antibiotics and sent to [facility] for further follow-up. Upon arrival to [facility], she reported mild lower abdominal pain and denied any ramón pain, cough, palpitation or any other related symptoms. Initial EKG showed sinus rhythm with frequent premature ventricular complexes and low voltage QRS. Follow-up x-ray at [facility] was consistent with the previous findings [...] Temporal 76 13 99 % -- -- 09/03/249 -- -- -- -- -- 100 % [...] Value Ventricular Rate 93 Atrial Rate 93 SC Interval 138 QRS DURATION 76 QT Interval 354 QTC CALCULATION(BAZETT) 440 P [place] 69 R-[place] 35 T Wave [place] 45 Impression Sinus rhythm with frequent Premature [...] from 1,478 yesterday to (more content not included)...[facility]06-08-2025 Note Hospital Medicine History and Physical 09/03/2024 5:56 PM THE HOSPITALIST TEAM PREFERS TO USE [employer] CHAT FOR COMMUNICATION 7AM-7PM. IF I DO NOT RESPOND WITHIN 15 MINUTES, PLEASE PAGE ME/CALL THROUGH THE VEGETABLE SORTER. FROM 7PM-7AM, PLEASE PAGE [phone](COVR) Chief Complaint Patient is direct admitted from [facility] with shortness of breath. History of Present Illness Chiara Eduardo is an 69 y.o. female who came from home with shortness of breath. Patient has history of COPD, quit smoking 2016, on Lasix 20 mg every other day, started having worsening shortness of breath, and acute on chronic abdominal pain last night, she presented to [facility], found to have right lower lobe pneumonia, with increasing troponin to 78.9, lactic of 3.2, patient was started on heparin drip, antibiotics, and was sent to [facility] for further workup. 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 12/28/2022 Anemia 10/27/2022 Hypomagnesemia 10/27/2022 Hyponatremia 10/27/2022 Arrhythmia 10/26/2022 Former smoker 01/22/2020 Health care maintenance 01/22/2020 Diuretic-induced hypokalemia 01/16/2018 History of acute inferior wall CA 01/13/2018 Bladder prolapse, female, acquired 12/28/2016 Chronic GERD 12/28/2016 COPD (chronic obstructive pulmonary disease) ([facility]) 12/28/2016 Coronary artery disease involving [place] coronary artery of [place] heart without angina pectoris 12/28/2016 Lower back pain 12/28/2016 Severe obesity (BMI 35.0-39.9) with comorbidity ([facility]) 12/28/2016 Shortness of breath 12/28/2016 Essential hypertension 12/14/2016 Mixed hyperlipidemia 12/14/2016 Angina pectoris, unstable ([facility]) 06/15/2024 Chest pain 07/08/2022 Assessment and Plan # Acute hypoxic respiratory failure # Pneumonia - Patient requiring nonrebreather upon arrival to [facility], will get ABG, switch to high flow nasal cannula - Due to to pneumonia, there is also component of heart failure -Chest x-ray at [facility] showed right lower lobe pneumonia, unfortunately [...] was 8.5 then up to 78.9 at [facility], with no acute ST changes. - [...] hospital stay by a member of [facility]. Past Medical History Past Medical History: Diagnosis Date Abnormal ECG (more content not included)...[facility]05-06-2025 Note [facility] Cardiology Clinic Note Chief Complaint: Patient here [...] has noticed worsening shortness of breath. Her special client bus driver adjusted her inhalers but this does not [...] kidney disease, COPD (chronic obstructive pulmonary disease) ([facility]), Coronary artery disease, Coronary artery disease involving [place] coronary artery of [place] heart without angina pectoris (12/28/2016), Essential hypertension [...] x3, well developed, in (more content not included)...[facility]04-30-2025 Evaluation note* Diagnosis Stage 3a chronic kidney disease (HCC) (CMS/HCC)- Primary Other hyperlipidemia Coronary artery disease involving [place] coronary artery of [place] heart without angina pectoris (CMS/HCC) Irregular heartbeat- Primary Unspecified cardiac dysrhythmia Essential (primary) hypertension (CMS/HCC)- Primary Unspecified essential hypertension Morbid (severe) obesity due to excess calories (CMS/HCC) Body mass index (BMI) 35.0-35.9, adult Chronic obstructive pulmonary disease, unspecified Chronic kidney disease, stage 3b (HCC) ([facility]/HCC) Coronary artery disease involving [place] coronary artery of [place] heart without angina pectoris ([facility]/HCC) Hypomagnesemia Disorders of magnesium metabolism Mixed hyperlipidemia ([facility]/HCC) Mixed hyperlipidemia Chronic low back pain, unspecified back pain laterality, unspecified whether sciatica present Leukocytosis, unspecified type- Primary documented in this encounter [id number] Evaluation note* Diagnosis Stage 3a chronic kidney disease (HCC) ([facility]/HCC)- Primary Other hyperlipidemia Coronary artery disease involving [place] coronary artery of [place] heart without angina pectoris ([facility]/HCC) Irregular heartbeat- Primary Unspecified cardiac dysrhythmia Essential (primary) hypertension ([facility])- Primary Unspecified essential hypertension Morbid (severe) obesity due to excess calories ([facility]) Body mass index (BMI) 35.0-35.9, adult Chronic obstructive pulmonary disease, unspecified Chronic kidney disease, stage 3b (HCC) ([facility]) Coronary artery disease involving [place] coronary artery of [place] heart without angina pectoris ([facility]) Hypomagnesemia Disorders of magnesium metabolism Mixed hyperlipidemia ([facility]/HCC) Mixed hyperlipidemia Chronic low back pain, unspecified back pain laterality, unspecified whether sciatica present Leukocytosis, unspecified type- Primary CRP elevated Elevated C-reactive protein (CRP) documented in this encounter [facility] [id number] Evaluation note* Diagnosis Onset Date Resolution Status [...] D deficiency acute [employer] 2024 1:35pm [facility] Work Phone: 1(891) 639-280704-07-2025 NoteIV fluid bolus at 999ml per hr started. Patient states feeling lightheaded. Placed in reverse trendelenburg. States feels better with change in position [facility]03-31-2025 NoteDrLissett Azevedo made aware - patient is coming for R/Cors on 07/03/24 (procedure at 10:30am). She had labs on 06/26/2024. BUN 23 (normal 7.0-18.0), creat 1.34 (normal 0.55-1.02). She has a history of CKD (per her clinic note).[facility] Chief Complaint: Patient [...] has noticed worsening shortness of breath. Her special client bus driver adjusted her inhalers but this does not [...] kidney disease, COPD (chronic obstructive pulmonary disease) ([facility]), Coronary artery disease, Coronary artery disease involving [place] coronary artery of [place] heart without angina pectoris (12/28/2016), Essential hypertension [...] (Effient) 10 mg table (more content not included)...[facility]03-13-2025 History of Present illness Narrative* Nolvia Jimenez NP - 06/08/2024 5:05 PM EDTAssociated Problem(s): Lower back pain Flexeril swatin * DE CARDOSO - 06/08/2024 2:40 PM EDT Pt is discontinue the Advair in 4 days and is going trelogy- dr coughlin * Nolvia Tony, EMISSIONS ENGINEER - 06/08/2024 2:40 PM EDT Images from [...] problems. Hypertensive end-organ damage includes kidney disease andCAD/CA. Identifiable causes of hypertension include chronic renal [...] (CMS/HCC) Chronic RUQ pain Coronary artery disease ([facility]) Essential hypertension ([facility]) History of tobacco abuse HLD (hyperlipidemia) ([facility]) Kidney disease Multiple pulmonary nodules SIADH (syndrome of inappropriate ADH production) ([facility]) Stroke ([facility]) Past Surgical History: Procedure Laterality Date CARDIAC [...] albuterol, trelegy, Under the care of pulmonology [facility] Coronary artery disease involving [place] coronary artery of [place] heart without angina pectoris (CMS/HCC) (Chronic) Under [...] adult Chronic kidney disease, stage 3b (HCC) ([facility]) Goal to keep blood pressure well control Avoid nephrotoxic drugs if possible Continue w nephrology Mixed hyperlipidemia ([facility]/HCC) Statin therapy Check labs yearly and prn [...] AM EDTAssociated Problem(s): Coronary artery disease involving [place] coronary artery of [place] heart without angina pectoris (CMS/HCC) Under the care of cardiology Current meds: statin, asa, imdur, b shyam, arb, diuretic, and ranexa Aggressive risk factor modification * Nolvia Jimenez NP - 06/08/2024 7:38 AM EDTAssociated Problem(s): Chronic obstructive pulmonary disease, unspecified (CMS/HCC) Current meds: albuterol, trelegy, Under the care of pulmonology [facility] documented in this encounterHann[facility] [id number] Evaluation note* Diagnosis Stage 3a chronic kidney disease (HCC) (CMS/HCC)- Primary Other hyperlipidemia (CMS/HCC) Coronary artery disease involving [place] coronary artery of [place] heart without angina pectoris (CMS/HCC) Irregular heartbeat- Primary Unspecified cardiac dysrhythmia Essential (primary) hypertension (CMS/HCC)- Primary Unspecified essential hypertension Morbid (severe) obesity due to excess calories (CMS/HCC) Body mass index (BMI) 35.0-35.9, adult Chronic obstructive pulmonary disease, unspecified (CMS/HCC) Chronic kidney disease, stage 3b (HCC) (CMS/HCC) Coronary artery disease involving [place] coronary artery of [place] heart without angina pectoris (CMS/HCC) Hypomagnesemia Disorders of magnesium metabolism Mixed hyperlipidemia (CMS/HCC) Mixed hyperlipidemia Chronic low back pain, unspecified back pain laterality, unspecified whether sciatica present documented in this encounter [facility] [id number] NoteUT Electrophysiology Consult Note Reason for visit: [...] and effient. She was recently seen at [facility] as a transfer from [facility] for complaints of symptomatic wide-complex tachycardia [...] Coronary artery disease Coronary artery disease involving [place] coronary artery of [place] heart without angina pectoris 12/28/2016 Essential hypertension 12/14/2016 Hyperlipidemia Lower back pain 12/28/2016 Mixed hyperlipidemia 12/14/2016 Shortness of breath 12/28/2016 PSH: Past Surgical History: Procedure Laterality Date CARDIAC CATHETERIZATION CHOLECYSTECTOMY CORONARY STENT PLACEMENT HYSTERECTOMY SH: Social Determinants of Health Tobacco Use: Medium Risk (04/26/2024) [facility] Patient History Smoking Tobacco Use: Former Smokeless Tobacco Use: Never Passive Exposure: Not on file Alcohol Use: Not At Risk (01/14/2019) Received from [facility] Frequency of Alcohol Consumption: Monthly or less Average Number of Drinks: 1 or 2 Frequency of Binge Drinking: Never Financial Resource Strain: Low Risk (10/26/2022) Overall Financia (more content not included)...[facility]01-29-2025 History of Present illness Narrative* Shanda [...] 2 weeks with BP readings. * Shanda Cheng, EMISSIONS ENGINEER - 04/26/2024 3:30 PM EST Images from [...] weeks with BP readings. documented in this encounterHannibal Regional [id number] Instructions* Patient Instructions* Shanda Cheng NP - [...] numbness/tingling GO TO ER!!! documented in this encounterHannibal Regional [id number] Evaluation note* Diagnosis Stage 3a chronic kidney disease (HCC) ([facility]/HCC)- Primary Other hyperlipidemia (CMS/HCC) Coronary artery disease involving [place] coronary artery of [place] heart without angina pectoris (CMS/HCC) Irregular heartbeat- Primary Unspecified cardiac dysrhythmia Essential hypertension ([facility]/HCC)- Primary Unspecified essential hypertension documented in this encounter [facility] [id number] History of Present illness Narrative* Shanda Cheng [...] who presents for Follow-up. HPI Specialists: Cardiology- [facility] Nephrology- Dr. Madrid Pulmonology- Dr. Coughlin Intermittent [...] further eval and treatment documented in this encounterHannibal Regional [id number] Evaluation note* Diagnosis Stage 3a chronic kidney disease (HCC) ([facility]/HCC)- Primary Other hyperlipidemia (CMS/HCC) Coronary artery disease involving [place] coronary artery of [place] heart without angina pectoris (CMS/HCC) Irregular heartbeat- Primary Unspecified cardiac dysrhythmia documented in this encounter [facility] HospitalUnmkbeexuw27-00-1983 Evaluation note* Diagnosis Stage 3a chronic kidney disease (HCC) ([facility]/HCC)- Primary Other hyperlipidemia (CMS/HCC) Coronary artery disease involving [place] coronary artery of [place] heart without angina pectoris (CMS/HCC) Stage 3a chronic kidney disease (HCC) ([facility]/HCC)- Primary documented in this encounter [facility] [id number] History of Present illness Narrative* Shanda Cheng NP - 01/17/2024 1:00 PM EDT Images from the original note were not included. Subjective : Chief Complaint: Chiara Eduardo is an 68 y.o. female here for an annual wellness visit. Specialists: Cardiology- [facility], [place] Pulmonology- Dr. Coughlin Nephrology- Dr. Madrid I [...] on January 17, 2024 documented in this encounterHannibal Regional [id number] NoteUT Electrophysiology Consult Note Reason for visit: [...] and effient. She was recently seen at [facility] as a transfer from [facility] for complaints of symptomatic wide-complex tachycardia [...] kidney disease COPD (chronic obstructive pulmonary disease) ([facility]) Coronary artery disease Coronary artery disease involving [place] coronary artery of [place] heart without angina pectoris 12/28/2016 Essential hypertension [...] Places Lived in the (more content not included)...[facility]12-12-2023 Evaluation note* Encounter Date Diagnosis Assessment [...] deficiency (ICD-10 - E55.9) continue VD supplement [employer] Other 01-10-2023 Evaluation note* Encounter Date Diagnosis [...] I will recheck sodium level next visit [employer] Other Evaluation note* Diagnosis Onset Date Resolution Status Anemia acute Hyperkalemia acute Hypertensive nephropathy acu te Hyperuricemia acute Hypomagnesemia acute Hyponatremia acute Stage 3b chronic kidney disease acute Vitamin D deficiency acute [facility] Work Phone: Evaluation note* Diagnosis Stage 3a chronic kidney disease (HCC) (CMS/HCC)- Primary Other hyperlipidemia (CMS/HCC) Coronary artery disease involving [place] coronary artery of [place] heart without angina pectoris (CMS/HCC) Routine general medical examination at health care facility- Primary Routine general medical examination at a health care facility [facility] encounter [facility] Diagnosis Stage 3a chronic kidney disease (HCC) (CMS/HCC)- Primary Other hyperlipidemia (CMS/HCC) Coronary artery disease involving [place] coronary artery of [place] heart without angina pectoris (CMS/HCC) Other hyperlipidemia (CMS/HCC) documented [facility] encounter [facility]* Diagnosis Stage 3a chronic kidney disease (HCC) (CMS/HCC)- Primary Other hyperlipidemia (CMS/HCC) Coronary artery disease involving [place] coronary artery of [place] heart without angina pectoris (CMS/HCC) Irregular heartbeat- Primary Unspecified cardiac dysrhythmia Essential hypertension (CMS/HCC)- Primary Unspecified essential hypertension [facility] encounter [facility]* Diagnosis Stage 3a chronic kidney disease (CMS-HCC)- Primary Other hyperlipidemia Coronary artery disease involving [place] coronary artery of [place] heart without angina pectoris Irregular heartbeat- Primary Unspecified cardiac dysrhythmia Essential (primary) hypertension- Primary Unspecified essential hypertension Morbid (severe) obesity due to excess calories (CMS-HCC) Body mass index (BMI) 35.0-35.9, adult Chronic obstructive pulmonary disease, unspecified (HCC) Chronic kidney disease, stage 3b (CMS-HCC) Coronary artery disease involving [place] coronary artery of [place] heart without angina pectoris Hypomagnesemia Disorders of magnesium metabolism Mixed hyperlipidemia Mixed hyperlipidemia Chronic low back pain, unspecified back pain laterality, unspecified whether sciatica present Pneumonia of right lower lobe due to infectious organism- Primary Acute hypoxic respiratory failure (HCC) Coronary artery disease involving [place] coronary artery of [place] heart without angina pectoris Essential (primary) hypertension [...] initial encounter- Primary documented in this encounter [facility]Evaluation noteNo assessment information availableSt. [facility] Work Phone: Hisucud general Narrative - Reported* Type Description Date Medical History CHRONIC OBSTRUCTIVE PULMONARY DI SEASE Medical History HYPERTENSION Medical History GERD Medical History HYPERLIPIDEMIA Medical History HEART ATTACK Surgical History HYSTERECTOMY Surgical History GALL BLADDER Surgical History TUBES TIED Surgical History 2 HEART STENTS Hospitalization History SEE ABOVE [employer] Other Hisqevn general Narrative - Reported* Type Description Date Medical History CHRONIC OBSTRUCTIVE PULMONARY DI SEASE Medical History HYPERTENSION Medical History GERD Medical History HYPERLIPIDEMIA Medical History HEART ATTACK Medical History V-TACH Surgical History HYSTERECTOMY Surgical History GALL BLADDER Surgical History TUBES TIED Surgical History 2 HEART STENTS Surgical History HEART CATH AND STENT PLACEMENT 07/14/2022 Hospitalization History SEE ABOVE Hospitalization History V-TACH [employer] Other Hospital Discharge instructions Additional Instructions DISCHARGE [...] NOT operate machinery such as power tools, lawn mowers, snow blowers, sewing machines, etc. for [...] three times daily if needed. -Office number [phone]. [facility] Work Phone: Reason for referral (narrative)No reason for referral information availableSt. Charles Hospital Ctr Work Phone: Summary Purpose Family History No [...] Documents on File Type Date Recorded Patient Hr Generalist Expl anation Power of Food Sales Clerk 09/06/2024 3:49 PM Healt h care power of estate attorney-[facility] Documents on File Type Date Recorded Patient Hr Generalist Expl anation Power of Food Sales Clerk 09/06/2024 3:49 PM Healt h care power of estate attorney-[facility] Chief Complaint and Reason for Visit [...] Reason Onset Date Comments Med Refill 10/12/2024 Reason Comments Hypertension INFORMATION SOURCE (unrecogn ized section and content) DATE CREATED AUTHOR 08/07/2022 [facility] DATE CREATED AUTHOR AUTHOR'S ORGANIZ ATION 11/11/2024 [facility] DATE CREATED AUTHOR AUTHOR'S ORGANIZ ATION 11/12/2024 [facility] DATE CREATED AUTHOR AUTHOR'S ORGANIZ ATION 11/14/2024 [facility] Specialists EPIC Care Teams (unrecognized sec [...] Ric MD Primary Care Provider Active Start: [place] 27th, 2024 Team Status: Inactive Member Role Status Dates Jackelyn Diggs MD Attending Provider, Referring Provider Active Start: December 20, 2023 End: December 20, 2023 KARO Santos Primary Care Provider Active Start: November 282023 End: December 20, 2023 Cable Tester Relationship Specialty Start Date End Date Shaikh Larios MD [address] [place] [phone] PCP - Alexx FLOWER 04/29/23 Trace Kelly MD [address] [place] [phone] PCP - General Family Medicine 11/10/23 Shanda Cheng NP [address] [place] [phone] Nurse Practitioner Family Medicine 11/10/23 Cable Tester Relationship Specialty Start Date End Date Shaikh Larios MD [address] [place] [phone] PCP - Alexx FLOWER 04/29/23 Trace Kelly MD [address] [place] [phone] PCP - General Family Medicine 01/17/24 Shanda Cheng NP [address] [place] [address] Nurse Practitioner Family Medicine 11/10/23 Cable Tester Relationship Specialty Start Date End Date Shaikh Larios MD [address] [place] [address] PCP - Alexx FLOWER 04/29/23 Trace Kelly MD [address] [place] [address] PCP - General Family Medicine 01/17/24 Shanda Cheng, NIXON [address] [place] [address] Nurse Practitioner Family Medicine 11/10/23 Cable Tester Relationship Specialty Start Date End Date Shaikh Larios MD [address] [place] [address] PCP Ana Lilia Coffey MA 04/29/23 Trace Kelly MD [address] [place] [address] PCP - General Family Medicine 01/17/24 Shanda Cheng, NIXON [address] [place] [address] Nurse Practitioner Family Medicine 11/10/23 Cable Tester Relationship Specialty Start Date End Date Shaikh Larios MD [address] [place] [address] PCP Ana Lilia Coffey MA 04/29/23 Trace Kelly MD [address] [place] [address] PCP - General Family Medicine 11/10/23 Shanda Cheng NP [address] [place] [address] Nurse Practitioner Family Medicine 11/10/23 Cable Tester Relationship Specialty Start Date End Date Shaikh Larios MD [address] [place] [address] PCP - Alexx [place] 04/29/23 Trace Kelly MD [address] [place] [address] PCP - General Family Medicine 01/17/24 Shanda Cheng NP [address] [place] [address] Nurse Practitioner Family Medicine 11/10/23 Cable Tester Relationship Specialty Start Date End Date Shaikh Larios MD [address] [place] [address] PCP - Alexx FLOWER 04/29/23 Trace Kelly MD [address] [place] [address] PCP - General Family Medicine 01/17/24 Shanda Cheng NP [address] [place] [address] Nurse Practitioner Family Medicine 11/10/23 Cable Tester Relationship Specialty Start Date End Date Shaikh Larios MD [address] [place] [address] PCP - Alexx FLOWER 04/29/23 Trace Kelly MD [address] [place] [address] PCP - General Family Medicine 01/17/24 Shanda Cheng NP [address] [place] [address] Nurse Practitioner Family Medicine 11/10/23 Cable Tester Relationship Specialty Start Date End Date Shaikh Larios MD [address] [place] [address] PCP - Alexx FLOWER 04/29/23 Trace Kelly MD [address] [place] [address] PCP - General Family Medicine 01/17/24 Shanda Cheng NP [address] [place] [address] Nurse Practitioner Family Medicine 11/10/23 Cable Tester Relationship Specialty Start Date End Date Trace Kelly MD [address] [place] [address] PCP - General Family Medicine 01/17/24 Shanda Cheng NP PCP Ana Lilia Coffey MA 03/29/24 Shanda Cheng NP Nurse Practitioner Family Medicine 11/10/23 Cable Tester Relationship Specialty Start Date End Date Trace Kelly MD [address] [place] [address] PCP - General Family Medicine 01/17/24 Shanda [...] Provider Active Star t: July 17, 2024 KARO Santos Primary Care Provider Ac tive Start: July 17, 2024 Team Status: Inactive Member Role Status Dates Shanda Cheng NP-C Primary Care Provider Ac tive Start: July 25, 2024 End: July 25, 2024 Jackelyn Diggs MD Attending Provider Active Star t: July 25, 2024 End: July 25, 2024 Cable Tester Relationship Specialty Start Date End Date Trace Kelly MD [address] [place] [address] PCP - General Family Medicine 01/17/24 Shanda Cheng NP PCP - Alexx FLOWER 03/29/24 Shanda Cheng NP Nurse Practitioner Family Medicine 11/10/23 Cable Tester Relationship Specialty Start Date End Date Trace Kelly MD [address] [place] [address] PCP - General Family Medicine 01/17/24 Shanda Cheng NP PCP - Alexx FLOWER 03/29/24 Shanda Cheng NP Nurse Practitioner Family Medicine 11/10/23 Team Status: Inactive Member Role Status Dates Nolvia Jimenez Attending Provider Active Start: July 26, 2024 End: July 26, 2024 Cable Tester Relationship Specialty Start Date End Date Trace Kelly MD [address] [place] [address] PCP - General Family Medicine 01/17/24 Shanda Cheng NP PCP - Alexx FLOWER 03/29/24 Shanda Cheng NP Nurse Practitioner Family Medicine 11/10/23 Cable Tester Relationship Specialty Start Date End Date Trace Kelly MD [address] [place] [address] PCP - General Family Medicine 01/17/24 Shanda Cheng NP PCP - Alexx FLOWER 03/29/24 Shanda Cheng NP Nurse Practitioner Family Medicine 11/10/23 Cable Tester Relationship Specialty Start Date End Date Trace Kelly MD [address] [place] [address] PCP - General Family Medicine 01/17/24 Shanda Cheng NP PCP - Alexx FLOWER 03/29/24 Shanda Cheng NP Nurse Practitioner Family Medicine 11/10/23 Cable Tester Relationship Specialty Start Date End Date Trace Kelly MD [address] [place] [address] PCP - General Family Medicine 01/17/24 Shanda Cheng NP PCP - Alexx FLOWER 03/29/24 Shanda Cheng NP Nurse Practitioner Family Medicine 11/10/23 Cable Tester Relationship Specialty Start Date End Date Trace Kelly MD [address] [place] [address] PCP - General Family Medicine 01/17/24 Shanda Cheng NP PCP - Alexx FLOWER 03/29/24 Shanda Cheng NP Nurse Practitioner Family Medicine 11/10/23 Cable Tester Relationship Specialty Start Date End Date Trace Kelly MD [address] [place] [address] PCP - General Family Medicine 01/17/24 Shanda Cheng NP PCP - Alexx FLOWER 03/29/24 Shanda Cheng NP Nurse Practitioner Family Medicine 11/10/23 Cable Tester Relationship Specialty Start Date End Date Trace Kelly MD [address] [place] [address] PCP - General Family Medicine 01/17/24 Shanda Cheng NP PCP - Alexx FLOWER 03/29/24 Shanda Cheng NP Nurse Practitioner Family Medicine 11/10/23 Cable Tester Relationship Specialty Start Date End Date Trace Kelly MD [address] [place] [address] PCP - General Family Medicine 01/17/24 Shanda Cheng NP PCP - Alexx FLOWER 03/29/24 Shanda Cheng NP Nurse Practitioner Family Medicine 11/10/23 Cable Tester Relationship Specialty Start Date End Date Trace Kelly MD [address] [place] [address] PCP - General Family Medicine 01/17/24 Shanda Cheng NP PCP - Alexx FLOWER 03/29/24 Shanda Cheng NP Nurse Practitioner Family Medicine 11/10/23 Cable Tester Relationship Specialty Start Date End Date Trace Kelly MD [address] [place] [address] PCP - General Family Medicine 01/17/24 Shanda Cheng NP PCP - Alexx FLOWER 03/29/24 Shanda Cheng NP Nurse Practitioner Family Medicine 11/10/23 Cable Tester Relationship Specialty Start Date End Date Trace Kelly MD [address] [place] [address] PCP - General Family Medicine 01/17/24 Shanda [...] Provider Active Sta rt: November 01, 2024 Cable Tester Relationship Specialty Start Date End Date Trace Kelly MD [address] [place] [address] PCP - General Family Medicine 01/17/24 Shanda Cheng NP PCP - Alexx FLOWER 03/29/24 Shanda Cheng NP Nurse Practitioner Family Medicine 11/10/23 Cable Tester Relationship Specialty Start Date End Date Trace Kelly MD [address] [place] [address] PCP - General Family Medicine 01/17/24 Shanda Cheng NP PCP - Alexx FLOWER 03/29/24 Shanda Cheng NP Nurse Practitioner Family Medicine 11/10/23 Cable Tester Relationship Specialty Start Date End Date Trace Kelly MD [address] [place] [address] PCP - General Family Medicine 01/17/24 Shanda Cheng NP YOLANDE Coffey MA 03/29/24 Shanda Cheng NP Nurse Practitioner Family Medicine 11/10/23 Cable Tester Relationship Specialty Start Date End Date Trace Kelly MD [address] [place] [address] PCP - General Family Medicine 01/17/24 Shanda Cheng NP YOLANDE Coffey MA 03/29/24 Shanda Cheng NP Nurse [...] BE BASED ON THE PRIMARY CLINICAL RECORDS. [employer] [facility]. provides no warranty or guarantee of the accuracy or completeness of information in this document.
[2024-11-15 12:51] LABS: Glucose Urine UA 100 mg/dL (NEGATIVE)
[2024-11-15 12:52] LABS: Hematocrit 37.8 % (36.0-48.0); Hemoglobin 12.5 g/dL (12.0-16.0); Immature Granulocytes Abs Auto 0.03 10^3/uL (0.00-0.03); Immature Granulocytes Pct Auto 0.4 % (0.0-0.5); Lymphocytes Absolute Auto 1.3 10^3/uL (1.2-3.8); Mean Corpuscular HGB Conc 33.1 g/dL (29.9-35.2); Mean Corpuscular Hemoglobin 30.2 pg (26.7-34.0); Mean Corpuscular Volume 91.3 fL (81.0-99.0); Platelet Count 337 10^3/uL (150-450); Red Blood Count 4.14 10^6/uL (4.20-5.40); White Blood Count 6.8 10^3/uL (4.0-11.0)
[2024-11-15 12:55] LABS: Microalbum Creatinine Ratio Ur 52.3 mg/g (0.0-29.9)
[2024-11-15 13:33] LABS: Alanine Aminotransferase 22 U/L (14-59); Albumin Globulin Ratio 0.8; Albumin Level 3.4 g/dL (3.4-5.0); Alkaline Phosphatase 120 U/L (46-116); Amylase 52 U/L (25-115); Anion Gap 11.7; Aspartate Amino Transferase 17 U/L (15-37); Blood Urea Nitrogen 19.0 mg/dL (7.0-18.0); Calcium 9.0 mg/dL (8.5-10.1); Carbon Dioxide 28.7 mmol/L (21.0-32.0); Chloride 96 mmol/L (98-107); Estimated GFR (African America 36 (>=60 mL/min/1.73m^2); Estimated GFR (Non-African Ame 30 (>=60 mL/min/1.73m^2); Globulin 4.1 g/dL; Glucose 106 mg/dL (74-106); Lipase 78.0 U/L (16.0-77.0); Potassium 4.4 mmol/L (3.5-5.1); Sodium 132 mmol/L (136-145); Total Protein 7.5 g/dL (6.4-8.2)
== END 2024-11-15 11:33 | disposition home or self-care (01) ==
LOC: LAB 11:34
PROVIDERS: PCP Nurse Practitioner; Visit Provider Nurse Practitioner
DX: R10.13 Epigastric pain (principal); E11.9 Type 2 diabetes mellitus without complications; I10 Essential (primary) hypertension
CPT/HCPCS: 36415; 80048; 80076; 81003; 82043; 82150; 82570; 83690; 85025

== ENCOUNTER 2024-12-07 12:55 | Outpatient (OUT) | payer MEDICARE, SELFPAY ==
--- OUTSIDE RECORDS SUMMARY | 2024-12-07 13:03 | XMS_ITS | CCD ---
Author Organization [facility] CliniSyaz Care Team Providers [employer] Representative Name Role Phone Jackelyn Diggs Unavailable JACKELYN DIGGS Attending Unavailable JACKELYN DIGGS Admitting Unavailable HOUSE, DR CASTILLO Primary Care Unavailable WEST, DR TIMOTHY Chandler Consulting Unavailable SAMSA ., LUIS Consulting Unavailable JACKELYN DIGGS Consulting Unavailable SAMSA ., LUIS Consulting Unavailable [...] Care Unavailable SAMSA ., LUIS Attending Unavailable GRAVITY, DR TIMOTHY Chandler Consulting Unavailable HOUSE, DR CASTILLO Primary Care Unavailable SAMSA ., LUIS Admitting Unavailable SAMSA ., LUIS Consulting Unavailable HOUSE, DR CASTILLO Admitting Unavailable HOUSE, DR CASTILLO Primary Care Unavailable HOUSE, DR CASTILLO Consulting Unavailable HOUSE, DR CASTILLO Attending Unavailable BAKHOUS, MARIOIZ Consulting Unavailable ASHS, JACKELYN Attending Unavailable ASHS, MARIOIZ Admitting Unavailable HOUSE, DR CASTILLO Primary Care Unavailable [facility], DR HUANG Consulting Unavailable ELTAHAW, DR HUANG Attending Unavailable HOUSE, DR CASTILLO [facility] Admitting Unavailable SAMSA ., LUIS Consulting Unavailable SAMSA ., LUIS Attending Unavailable SAMSA ., LUIS Admitting Unavailable HOUSE, DR CASTILLO Primary Care Unavailable HOUSE, DR CASTILLO Consulting Unavailable SAMSA ., LUIS Consulting Unavailable MD Jackelyn Diggs Attending Provider MD Jackelyn Diggs Referring Provider KARO Cheng Primary Care Provid er Ric COTE, Altamirano Unavailable Trace Kelly MD Primary Care Provider [phone] Skylar GREENHOUSE MANAGER, Shanda Unavailable Trace Kelly MD Primary Care Provider [phone] Skylar GREENHOUSE MANAGER, Shanda Unavailable [phone] Skylar GREENHOUSE MANAGER, Shanda Unavailable [phone] Nolvia Jimenez Attending Provider [phone] Ana COTE, Imkai Attending Provider [phone] Ana COTE, Lisa Other Provider Nolvia Jimenez Primary Care Provider Asaad, Imad Admitting Unavailable Asaad, Imad Attending Unavailable Nolvia Jimenez Primary Care Unavailable Nolvia Jimenez Admitting Unavailable Nolvia Jimenez Attending Unavailable Bakhous, Aziz Admitting Unavailable Bakhous, Aziz Attending Unavailable Bakhous, Aziz Referring Unavailable Skylar Shanda N Primary Care Unavaila ble SHANDA CHENG Attending Unavailabl e CHENGSHANDA Attending Unavailabl e AICHHOLZ, NOLVIA Attending Unavailable AICHHOLZ, NOLVIA Attending Unavailable AICHHOLZ, NOLVIA Attending Unavailable SACHAHRADHA, NOLVIA Attending Unavailable CHENG, BRITTANY Attending Unavailabl e HORANI, KIRSTEN Referring Unavailable ELTAHAWY, EHAB Attending Unavailable ELTAHAWY, EHAB Attending Unavailable JUSZACK Attending Unavailable ELTAHAWY, EHAB Referring Unavailable XANDER SEQUEIRA Attending Unavailable XANDER SEQUEIRA Attending Unavailable JUSZACK Attending Unavailable HORANI, KIRSTEN Referring Unavailable HORANI, KIRSTEN Referring Unavailable ELTAHAWY, EHAB Admitting Unavailable ELTAHAWY, EHAB Attending Unavailable GRISELDA HARVEY Referring Unavailable HORANI, KIRSTEN Admitting Unavailable RHEA MANNING Attending Unavailable HORANI, KIRSTEN Referring Unavailable Allergies Allergy Classification Reported Allergen(s) Allergy Type Date of Onset Reaction(s) Facility (20 sources) clopidogrel; Translations: [CLOPIDOGREL] Drug Allergy [facility] (8 sources) hydroCHLOROthiazide; Translations: [HYDROCHLOROTHIAZIDE] Drug Allergy rash [facility] (3 sources) Penicillin; Translations: [penicillin] Drug Allergy [facility] (20 sources) Vancomycin; Translations: [VANCOMYCIN] Drug Allergy anaphylaxis [facility] (2 sources) Substance with sulfonamide structure and antibacterial mechanism of action (substance) Drug allergy Unknown [facility] Other (1 source) clopidogrel Drug Allergy [facility] (1 source) hydroCHLOROthiazide Drug Allergy [facility] (1 source) Vancomycin Drug Allergy [facility] (20 sources) Penicillins; Translations: [Penicillins] Allergy to substance [facility] (7 sources) Sulfonamides (Antibiotic); Translations: [Sulfa (Sulfonamide Antibiotics)] Allergy to substance Unknown Reaction [facility] (20 sources) hydroCHLOROthiazide Drug Allergy [facility] (20 sources) Sodium Chloride; Translations: [SODIUM CHLORIDE] Drug Allergy [facility] (20 sources) Sulfacetamide Drug Allergy [facility] (1 source) clopidogrel Drug Allergy [facility] Repository (1 source) hydroCHLOROthiazide Drug Allergy [facility] Repository (1 source) Vancomycin Drug Allergy [facility] Repository Medications Current Medications Medication Drug Class(es) Dates Sig (Normalized) Sig (Original) [id number] 200 actuat albuterol 0.09 mg/actuat metered dose [...] 1 puff Inhalation Twice a day Active Kgaydhrqwxp-Nzxgzwdnq-Nldblk er (20 sources) Anticholinergic, Corticosteroid, beta2-Adrenergic Agonist Start: 10-18-2024 Agsfotnuyqp-Hguhladwh-Oedhdo er (Trelegy Ellipta) 100-62.5-25 mcg blister with [...] pantoprazole 40 mg delayed release oral tablet (4 sources) Proton Pump Inhibitor Start: 11-13-2024 End: [...] Date Documented Da te Episodic/Chronic Abdominal pain (6 sources) Epigastric pain; Translations: [Epigastric pain] Onset: [...] Onset: 7 Chronic Congestive heart failure; nonhypertensive (19 sources) Heart failure; Translations: [Heart failure, unspecified] Onset: 5 10-10-2024 Chronic Coronary atherosclerosis and other heart disease (20 sources) Atherosclerotic heart disease of lime coronary artery without angina pectoris; Translations: [Coronary arteriosclerosis] Onset: 7 Chronic Deficiency and other anemia (5 sources) Anemia, unspecified; Translations: [Anemia, unspecified] Episodic Deficiency and other anemia (5 sources) Anemia; Translations: [Anemia, unspecified] 11-13-2023 Episodic Diabetes mellitus without complication (20 sources) Type 2 diabetes mellitus; Translations: [Type 2 diabetes mellitus without complications] Onset: 5 10-10-2024 Chronic Diseases of white blood cells (20 sources) Leukocytosis; Translations: [Elevated white blood cell count, unspecified] Onset: 5 07-26-2024 Chronic Disorders of lipid metabolism (20 sources) Hyperlipidemia; Translations: [Other hyperlipidemia] Onset: 3 Resolved: 5 04-12-2023 Chronic E Codes: Natural/environment (9 sources) Insect bite - wound; Translations: [Bitten or stung by nonvenomous insect and other nonvenomous arthropods, initial encounter] Onset: 5 10-18-2024 Episodic Esophageal disorders (6 sources) Gastroesophageal reflux disease without esophagitis; Translations: [...] [Hyperparathyroidism, unspecified] 07-25-2024 Chronic Other gastrointestinal disorders (18 sources) Constipation; Translations: [Other constipation] Onset: 5 10-10-2024 Episodic Other gastrointestinal disorders (13 sources) Stool DNA-based colorectal cancer screening positive; [...] inflammatory arthritis and tophaceous disease] 11-13-2023 Episodic Residual codes; unclassified (2 sources) Localized edema; Translations: [Localized edema] Onset: 5 Episodic Respiratory failure; insufficiency; arrest (adult) (16 sources) Chronic respiratory failure; Translations: [Chronic respiratory [...] [Pneumonia, unspecified organism] Onset: 09-03-2024 09-06-2024 Episodic Screening and history of mental health [...] Name Value Interpretation Reference Range Facility 36on 12-04-2024 36 Patient called with BP's and HR's: 92/61 HR 72 98/77 HR 68 103/83 HR 79 102/92 HR 89 85/71 HR 68 90/79 HR 68 88/70 HR 74 113/91 HR 77 Says she's been feeling skipped beats and she's been very weak. Says she never used to feel palpitations but she's been feeling them lately and they're really pronounced . Denies lightheadedness. C/o nausea but says she has GI issues also. Still has LE edema, even after increase in lasix. Normal [facility] Office Visiton 11-20-2024 Follow-up visit [id number] Chiara Eduardo 1955 F Date Provider Department Center 11/20/2024 [id number] LUU Family History Problem Relation Age of Onset Stroke Mother Kidney disease Father Coronary artery disease Paternal Grandfather Family Status - Relation Status Age at Mother Father Paternal Grandfather Level of Service:36973 [place] OFFICE/OUTPATIENT ESTABLISHED MOD MDM 30 MIN [facility] ALL CBC WITH AUTO DIFFon BASOPHILS ABSOLUTE AUTO 0.1 [facility] Basophils/100 WBC (Bld) 0.7 % 0.2 - 2.0 % [facility] Eosinophils/100 WBC (Bld) 1.3 % 0.9 - 7.0 % [facility] Erythrocyte distribution width (RBC) [Ratio] 14 % 11.0 - 15.0 % [facility] Hematocrit (Bld) [Volume fraction] 37.8 % 36.0 - 48.0 % [facility] Hemoglobin (Bld) [Mass/Vol] 12.5 g/dL 12.0 - 16.0 g/dL [facility] IMMATURE GRANULOCYTES ABS AUTO 0.03 [facility] Immature granulocytes/100 WBC (Bld) 0.4 % 0.0 - 0.5 % [facility] Interpretation and review of laboratory results Abnormal [facility] LYMPHOCYTES ABSOLUTE AUTO 1.3 [facility] Lymphocytes/100 WBC (Bld) 18.5 % Low 20.5 - 60.0 % [facility] MCH (RBC) [Entitic mass] 30.2 pg 26.7 - 34.0 pg [facility] MCHC (RBC) [Mass/Vol] 33.1 g/dL 29.9 - 35.2 g/dL [facility] MCV (RBC) [Entitic vol] 91.3 fL 81.0 - 99.0 fL [facility] MONOCYTES ABSOLUTE AUTO 0.5 [facility] Monocytes/100 WBC (Bld) 7.6 % 1.7 - 12.0 % [facility] NEUTROPHILS ABSOLUTE AUTO 4.9 [facility] Neutrophils/100 WBC (Bld) 71.5 % 43.0 - 75.0 % [facility] Platelet mean volume (Bld) [Entitic vol] 9.8 fL 9.5 - 13.5 fL [facility] TBH EO # 0.1 [facility] TBH PLT 337 [facility] TB RBC 4.14 Low [facility] TB WBC 6.8 [facility] MICROALB CREAT RATIO RAN DOMon 11-15-2024 CREATININE URINE RANDOM 24.83 mg/dL 20.00 - 300.00 mg/dL [facility] Interpretation and review of laboratory results Abnormal [facility] MICROALBUM CREATININE RATIO UR 52.3 mg/g High 0.0 - 29.9 mg/g [facility] Comment on above: NO MICROALBUMINURIA 0-29 MG/G CLINICAL MICROALBUMINURIA 30-300 MG/G MACROALBUMINURIA >300 MG/G MICROALBUMIN URINE RANDOM <1.3 NINF - 30.0 mg/dL [facility] 36on 11-09-2024 36 My chart request for refills Normal [facility] ALL BASIC METABOLIC PANELon 11-08-2024 Anion gap [Moles/Vol] 13.3 mmol/L NO [facility] Calcium [Mass/Vol] 9 mg/dL 8.5 - 10. 1 mg/dL [facility] Chloride [Moles/Vol] 98 mmol/L 98 - 10 7 mmol/L [facility] CO2 [Moles/Vol] 27.8 mmol/L 21.0 - 32.0 mmol/L [facility] Creatinine [Mass/Vol] 1.42 mg/dL High 0.55 - 1.02 mg/dL [facility] GFR/1.73 sq M.predicted CKD-EPI (S/P/Bld) [Vol rate/Area] 44 Low >=60 mL/min/1.73m 2 [facility] Glucose [Mass/Vol] 88 mg/dL 74 - 106 mg/dL [facility] Interpretation and review of laboratory results Abnormal [facility] Potassium [Moles/Vol] 4.1 mmol/L 3.5 - 5.1 mmol/L [facility] Sodium [Moles/Vol] 135 mmol/L Low 136 - 145 mmol/L [facility] TBH EGFR-NON AF KYRGYZ 36 Low >=60 mL/min/1.73m 2 [facility] Urea nitrogen [Mass/Vol] 21 mg/dL High 7.0 - 18.0 mg/dL [facility] Urea nitrogen/Creatinine [Mass ratio] 14.8 mg/mg [facility] ITPon 11-03-2024 [place] [address] Cardiac Rehab Report Signed Patient: CHIARA EDUARDO MR#: [id number] : 1955 Acct:[id number] Age/Sex: 69 / F ADM Date: 10/05/24 Loc: CR Attending Dr: Abby Azevedo M.D. Ordering Physician: Abby Azevedo M.D. Date of Service: 10/23/24 Procedure(s): ITP Accession Number(s): [id number] cc: [facility] Test Date: 2024-10-23 Pat Name: CHIARA EDUARDO Department: Room: - Gender: Female Clinical Marketing Manager: : 1955 Requested By: ABBY AZEVEDO Order Number: [id number] Dane MD: HERIBERTO ESTEVEZ M.D. Interpretive Statements Patient may continue cardiac rehab as outlined in the treatment plan. Electronically Signed On 11-03-2024 10:21:15 EDT by HERIBERTO ESTEVEZ M.D. Dictated By: HERIBERTO ESTEVEZ Signed By: 11/03/24 1021 11/03/24 1021 DD/ 1451 TD/TT: Data Abstractor: [facility] Radiology, Radiologist, MD - 11/03/2024 [place] [address] Cardiac Rehab Report Signed Patient: CHIARA EDUARDO MR#: [id number] : 1955 Acct:[id number] Age/Sex: 69 / F ADM Date: 10/05/24 Loc: CR Attending Dr: Abby Azevedo M.D. Ordering Physician: Abby Azevedo M.D. Date of Service: 10/23/24 Procedure(s): ITP Accession Number(s): [id number] cc: [facility] Test Date: 2024-10-23 Pat Name: CHIARA EDUARDO Department: Room: - Gender: Female Clinical Marketing Manager: : 1955 Requested By: ABBY AZEVEDO Order Number: [id number] Dane MD: HERIBERTO ESTEVEZ M.D. Interpretive Statements Patient may continue cardiac rehab as outlined in the treatment plan. Electronically Signed On 11-03-2024 10:21:15 EDT by HERIBERTO ESTEVEZ M.D. Dictated By: HERIBERTO ESTEVEZ Signed By: 11/03/24 1021 11/03/24 1021 DD/ 1451 TD/TT: Data Abstractor: [facility] ITPOrdered By: Dick bhatia on 11-03-2024 [facility] Work Phone: Adam 11-01-2024 L - -------- Specimen: [id number] Received: 11/01/24 Status: SUMI Lorenz Num: [id number] Spec Type: Surgical Subm Dr: Lias Perez MD Tissues: A Colon Biopsy (CECAL POLYP) B Colon Biopsy (ASCENDING POLYP) C Colon Biopsy (SIGMOID POLYP) Procedures: CHILANGO/Gray German/Calderon L4/3 -------- Age/ Patient Sex Location Account Attending Physician -------- Chiara Eduardo 69/F [id number] Lisa Perez MD -------- SPEC NUM: [id number] RECD: 11/01/24 STATUS: SUMI LORENZ NUM: [id number] PIPE: 11/01/[address] [facility] [address]: Lisa Perez MD ENTERED: 11/01/[address] [facility] [address]: SPEC TYPE: Surgical DEPT: S ENTERED BY: [id number] RECV BY: [id number] ORDERED: HE/6, Gross/Micro L4/3 ORDERED: HE/6, Gross/Micro [...] submitted in a single cassette. (1, ns, [id number] A) J Part B is received in formalin labeled with the patients name, date of , and ascending polyp are 2 bazzi-viveros, focally erythematous, friable polypoid fragments, 1.2 x 0.5 x 0.2 cm in aggregate. The specimen is filtered and entirely submitted in a single cassette. (1, ns, -------- Specimen: [id number] Received: 11/01/24 Status: KEYURIam Lorenz Num: [id number] Spec Type: Surgical Subm Dr: Lisa Perez MD Tissues: A Colon Biopsy (CECAL POLYP) B Colon Biopsy (ASCENDING POLYP) C Colon Biopsy (SIGMOID POLYP) Procedures: Gross/Micro L4/3 -------- Patient: Chiara Eduardo [id number] (Continued) -------- Specimen: [id number] Received: 11/01/24 (Continued) Gross Description (Continued) Signed (signature on file) Abram Martinez Jr., MD 11/02/24 1154 -------- Specimen: [id number] Received: 11/01/24 Status: SUMI Lorenz Num: [id number] Spec Type: Surgical Subm Dr: Lisa Perez MD Tissues: A Colon Biopsy (CECAL POLYP) B Colon Biopsy (ASCENDING POLYP) C Colon Biopsy (SIGMOID POLYP) Procedures: Gross/Micro L4/3 -------- Patient: Chiara Eduardo [id number] (Continued) -------- Specimen: [id number] Received: 11/01/24-1343 (Continued) Gross Description (Continued) [id number] B) Part C is received in formalin [...] The vegetative material is retained. (1, ns, [id number] C) CPT Codes 88939 x 3 -------- -------- Specimen: [id number] Received: 11/01/24 Status: SUMI Lorenz Num: [id number] Spec Type: Surgical Subm Dr: Lisa Perez MD Tissues: A Colon Biopsy (CECAL POLYP) B Colon Biopsy (ASCENDING POLYP) C Colon Biopsy (SIGMOID POLYP) Procedures: HE/6, Gross/Micro L4/3 -------- Patient: Chiara Eduardo [id number] (Continued) -------- Signed (signature on file) Abram Martinez Jr., MD 11/02/24 1154 Normal [facility] ITPon 10-23-2024 Radiology Study observation (narrative) [facility] 3610-11-[address] Azevedo regarding labs from yesterday: MD Milli Luevano MA Serum creatinine has increased from above 2 to 1.51. Please repeat a BMP in 2 weeks. Thank you. I spoke with patient earlier today and asked her to get BMP in 2 weeks. Order faxed earlier today. Normal [facility] 3610-10-2024 36 Patient's PCP, Nolvia Jimenez, CARD SELLER - called me regarding this patient. She saw her today in the office. Patient told Nolvia that she noticed increased SOB and LE edema when spironolactone was stopped last week. She did have repeat BMP tpday (scanned into chart). Nolvia did send her over just now to [facility] for CXR. Any recommendations? Normal [facility] ALL BASIC METABOLIC PANELon 10-10-2024 Anion gap [Moles/Vol] 12.5 mmol/L NO [facility] Calcium [Mass/Vol] 8.9 mg/dL 8.5 - 10. 1 mg[facility] Chloride [Moles/Vol] 100 mmol/L 98 - 10 7 mmol/L [facility] CO2 [Moles/Vol] 27.6 mmol/L 21.0 - 32.0 mmol/L [facility] Creatinine [Mass/Vol] 1.51 mg/dL High 0.55 - 1.02 mg/dL [facility] GFR/1.73 sq M.predicted CKD-EPI (S/P/Bld) [Vol rate/Area] 41 Low >=60 mL/min/1.73m 2 [facility] Glucose [Mass/Vol] 100 mg/dL 74 - 106 mg/dL [facility] Interpretation and review of laboratory results Abnormal [facility] Potassium [Moles/Vol] 5.1 mmol/L 3.5 - 5.1 mmol/L [facility] Sodium [Moles/Vol] 135 mmol/L Low 136 - 145 mmol/L [facility] EGFR-NON AF KYRGYZ 34 Low >=60 mL/min/1.73m 2 [facility] Urea nitrogen [Mass/Vol] 23 mg/dL High 7.0 - 18.0 mg/dL [facility] Urea nitrogen/Creatinine [Mass ratio] 15.2 mg/mg [facility] XR ABDOMEN 1Von 10-10-2024 [place] [address] XRay Report Signed Patient: CHIARA EDUARDO MR#: [id number] : 1955 Acct:[id number] Age/Sex: 69 / F ADM Date: 10/10/24 Loc: RAD Attending Dr: Nolvia Jimenez NP Ordering Physician: Nolvia Jimenez NP Date of Service: 10/10/24 Procedure(s): XR abdomen 1V Accession Number(s): [id number] cc: Nolvia Jimenez NP [place] [address] Patient Name: CHIARA EDUARDO MRN: [facility]:[id number] date: 1955 Sex: F Assigned Patient Location: [facility] Current Patient Location: [facility] Accession/Order Number: [id number] Exam Date: 10/10/2024 17:01 Report Date: 10/10/2024 [...] Garcia M.D. 10/10/2024 5:03 PM Dictation Location: [place] [address] Electronically authenticated by: [id number] Y Date: 10/10/2024 17:03 Dictated By: Tahir Garcia M.D. Signed By: 10/10/241704 DD/ 02 TD/TT: Data Abstractor: [facility] Radiology, Radiologist, - 10/10/2024 [place] [address] XRay Report Signed Patient: CHIARA EDUARDO MR#: [id number] : 1955 Acct:[id number] Age/Sex: 69 / F ADM Date: 10/10/24 Loc: [facility] Attending Dr: Nolvia Jimenez NP Ordering Physician: Nolvia Jimenez NP Date of Service: 10/10/24 Procedure(s): XR abdomen 1V Accession Number(s): [id number] cc: Nolvia Jimenez NP [place] [id number] Patient Name: CHIARA EDUARDO MRN: [id number] date: 1955 Sex: F Assigned Patient Location: [facility] Current Patient Location: [facility] Accession/Order Number: [id number] Exam Date: 10/10/2024 17:01 Report Date: 10/10/2024 [...] Garcia M.D. 10/10/2024 5:03 PM Dictation Location: [place] [address] Electronically authenticated by: [id number] Y Date: 10/10/2024 17:03 Dictated By: Tahir Garcia M.D. Signed By: 10/10/241704 DD/ 02 TD/TT: Data Abstractor: [facility] Radiology Study observation (narrative) [facility] XR ABDOMEN 1VOrdered By: Rubio iologist Radiology on 10-10-2024 [facility] Work Phone: XR CHEST 2Von 10-10-2024 [place] [address] XRay Report Signed Patient: CHIARA EDUARDO MR#: [id number] : 1955 Acct:[id number] Age/Sex: 69 / F ADM Date: 10/10/24 Loc: RUBIO Attending Dr: Nolvia Jimenez NP Ordering Physician: Nolvia Jimenez NP Date of Service: 10/10/24 Procedure(s): XR chest 2V Accession Number(s): [id number] cc: Nolvia Jimenez NP [facility] [place] [id number] Patient Name: CHIARA EDUARDO MRN: [facility]:[id number] date: 1955 Sex: F Assigned Patient Location: RAD Current Patient Location: RAD Accession/Order Number: [id number] Exam Date: 10/10/2024 17:03 Report Date: 10/10/2024 [...] Garcia M.D. 10/10/2024 5:04 PM Dictation Location: [place] [address] Electronically authenticated by: [id number] Y Date: 10/10/2024 17:04 Dictated By: Tahir Garcia M.D. Signed By: 10/10/241705 DD/ 03 TD/TT: Data Abstractor: [facility] Radiology, Radiologist, MD - 10/10/2024 [facility] [place] [id number] XRay Report Signed Patient: CHIARA EDUARDO MR#: [id number] : 1955 Acct:[id number] Age/Sex: 69 / F ADM Date: 10/10/24 Loc: RAD Attending Dr: Nolvia Jimenez NP Ordering Physician: Nolvia Jimenez NP Date of Service: 10/10/24 Procedure(s): XR chest 2V Accession Number(s): [id number] cc: Nolvia Jimenez NP [place] [id number] Patient Name: CHIARA EDUARDO MRN: [id number] date: 1955 Sex: F Assigned Patient Location: [facility] Current Patient Location: [facility] Accession/Order Number: [id number] Exam Date: 10/10/2024 17:03 Report Date: 10/10/2024 [...] Garcia M.D. 10/10/2024 5:04 PM Dictation Location: [place] [address] Electronically authenticated by: [id number] Y Date: 10/10/2024 17:04 Dictated By: Tahir Garcia M.D. Signed By: 10/10/241705 DD/ 03 TD/TT: Data Abstractor: [facility] Radiology Study observation (narrative) [facility] XR CHEST 2VOrdered By: Radio [facility] Radiology on 10-10-2024 [facility] Work Phone: ITPon 10-04-[address] [address] Cardiac Rehab Report Signed Patient: CHIARA EDUARDO MR#: [id number] : 1955 Acct:[id number] Age/Sex: 69 / F ADM Date: 10/03/24 Loc: CR Attending Dr: Abby Azevedo M.D. Ordering Physician: Luis Schumacher D.O. Date of Service: 10/02/24 Procedure(s): ITP Accession Number(s): [id number] cc: [facility] Test Date: 2024-10-02 Pat Name: CHIARA EDUARDO Department: Room: - Gender: Female Clinical Marketing Manager: : 1955 Requested By: Luis Schumacher Order Number: [id number] Dane MD: Luis Schumacher Interpretive Statements Okay to proceed with outlined treatment plan. Electronically Signed On 10-04-2024 10:08:06 EDT by Luis Schumacher Dictated By: Luis Schumacher D.O. Signed By: 10/04/24 1008 10/04/24 1008 DD/ 1145 TD/TT: Data Abstractor: [facility] Radiology, Radiologist, - 10/04/2024 [place] [address] Cardiac Rehab Report Signed Patient: CHIARA EDUARDO MR#: [id number] : 1955 Acct:[id number] Age/Sex: 69 / F ADM Date: 10/03/24 Loc: CR Attending Dr: Abby Azevedo M.D. Ordering Physician: Luis Schumacher D.O. Date of Service: 10/02/24 Procedure(s): ITP Accession Number(s): [id number] cc: [facility] Test Date: 2024-10-02 Pat Name: CHIARA EDUARDO Department: Room: - Gender: Female Clinical Marketing Manager: : 1955 Requested By: Luis Schumacher Order Number: [id number] Dane MD: Luis Schumacher Interpretive Statements Okay to proceed with outlined treatment plan. Electronically Signed On 10-04-2024 10:08:06 EDT by Luis Schumacher Dictated By: Luis Schumacher D.O. Signed By: 10/04/24 1008 10/04/24 1008 DD/ 1145 TD/TT: Data Abstractor: [place] [address] Cardiac Rehab Report Signed Patient: CHIARA EDUARDO MR#: [id number] : 1955 Acct:[id number] Age/Sex: 69 / F ADM Date: 10/03/24 Loc: CR Attending Dr: Abby Azevedo M.D. Ordering Physician: Lusi Schumacher D.O. Date of Service: 10/03/24 Procedure(s): ITP Accession Number(s): [id number] cc: [facility] Test Date: 2024-10-03 Pat Name: CHIARA EDUARDO Department: Room: - Gender: Female Clinical Marketing Manager: : 1955 Requested By: Luis Schumacher Order Number: [id number] Reading MD: Luis Schumacher Interpretive Statements Okay to proceed with outlined treatment plan. Electronically Signed On 10-04-2024 10:08:18 EDT by Luis Schumacher Dictated By: Luis Schumacher D.O. Signed By: 10/04/24 1008 10/04/24 1008 DD/ 1245 TD/TT: Data Abstractor: [facility] Radiology, Radiologist, MD - 10/04/2024 [facility] [place] [id number] Cardiac Rehab Report Signed Patient: CHIARA EDUARDO MR#: [id number] : 1955 Acct:[id number] Age/Sex: 69 / F ADM Date: 10/03/24 Loc: CR Attending Dr: Abby Azevedo M.D. Ordering Physician: Luis Schumacher D.O. Date of Service: 10/03/24 Procedure(s): ITP Accession Number(s): [id number] cc: [facility] Test Date: 2024-10-03 Pat Name: CHIARA EDUARDO Department: Room: - Gender: Female Clinical Marketing Manager: : 1955 Requested By: Luis Schumacher Order Number: [id number] Dane MD: Luis Schumacher Interpretive Statements Okay to proceed with outlined treatment plan. Electronically Signed On 10-04-2024 10:08:18 EDT by Luis Schumacher Dictated By: Luis Schumacher D.O. Signed By: 10/04/24 1008 10/04/24 1008 DD/ 1245 TD/TT: Data Abstractor: [facility] No Panel InformationOrdered By: Radiologist Radiology on 10-04-2024 [facility] Work Phone: 36on 10-03-2024 36 Spoke with patient and made her aware to stop spironolactone per Dr. Azevedo. She verbalized understanding and will do so. She will have repeat BMP on Wednesday, 10/09. Order faxed to [facility]. [facility] 36 Regarding lab result s from 10/03/2024: [...] her to stop both that and Farxiga? [facility] ALL BASIC METABOLIC PANELon 10-03-2024 Anion gap [Moles/Vol] 11.8 mmol/L [facility] Calcium [Mass/Vol] 9.1 mg/dL 8.5 - 10. 1 mg/dL [facility] Chloride [Moles/Vol] 96 mmol/L Low 98 - 10 7 mmol/L [facility] CO2 [Moles/Vol] 29.1 mmol/L 21.0 - 32.0 mmol/L [facility] Creatinine [Mass/Vol] 2.01 mg/dL High 0.55 - 1.02 mg/dL [facility] GFR/1.73 sq M.predicted CKD-EPI (S/P/Bld) [Vol rate/Area] 30 Low >=60 mL/min/1.73m 2 [facility] Glucose [Mass/Vol] 115 mg/dL High 74 - 106 mg/dL [facility] Interpretation and review of laboratory results Abnormal [facility] Potassium [Moles/Vol] 4.9 mmol/L 3.5 - 5.1 mmol/L [facility] Sodium [Moles/Vol] 132 mmol/L Low 136 - 145 mmol/L [facility] TBH EGFR-NON AF KYRGYZ 24 Low >=60 mL/min/1.73m 2 [facility] Urea nitrogen [Mass/Vol] 31 mg/dL High 7.0 - 18.0 mg/dL [facility] Urea nitrogen/Creatinine [Mass ratio] 15.4 mg/mg [facility] ITPon 10-03-2024 Radiology Study observation (narrative) [facility] Telephoneon 10-03-2024 Telephone [id number] Emily Eduardoricia A 1955 F Date Provider Department Center 10/03/2024 MILLI SMITH Family History Problem Relation Age of Onset Stroke Mother Kidney disease Father Coronary artery disease Paternal Grandfather Family Status - Relation Status Age at Mother Father Paternal Grandfather [facility] ITPon 10-02-2024 Radiology Study observation (narrative) [facility] Follow-Upon 09-22-2024 Follow-Up [id number] EduardoChiara meza 1955 F Date Provider Department Center 09/22/2024 [id number] ALBA Family History Problem Relation Age of Onset Stroke Mother Kidney disease Father Coronary artery disease Paternal Grandfather Family Status - Relation Status Age at Mother Father Paternal Grandfather Level of Service:75648 [place] OFFICE/OUTPATIENT ESTABLISHED MOD MDM 30 MIN [facility] 3009-05-2024 30 The patient is Moderately Stable - [...] comfort level Outcome: Adequate for Discharge Normal [facility] 30 [employer] went bedside and talked with patient about home oxygen. [employer] asked if patient has any preference of home oxygen company. Patient stated she does not, and is agreeable to be set up with [employer]. [employer] called and talked with with Keny from [employer], Keny Confirmed they service patients area, and take patients insurance. Keny told marine underwriter to fax over Clinicals and provide patient a portable tank. -- Clinicals gathered and faxed over at 11:25 am -- [employer] received confirmation fax. [employer] Guide called [employer] office and talked with Brock. [employer] inform Brock that clinicals were faxed over and confirmation fax was received. Brock stated patient is not in their system yet but will keep a look of for it and will call patient back as soon as patient gets put into their system. [employer] provided call back number. [employer] called and talked to Nicole from [employer], She confirmed that they have everything they need and that marine underwriter can give patient a portable oxygen tank to go home with, and for marine underwriter to instruction patient to call them when she leaves the hospital. [employer] went bedside and provided portable oxygen tank to patient, [employer] educated patient on portable oxygen tank and on the need to call [employer] as soon as she leave the hospital. Patient stated she understands and had no other questions at this time. ------ [employer] received call from [employer] asking for discharge summery to be faxed over as well. [employer] faxed over discharge . [employer] received confirmation fax. [employer] Guide called Jaqueline from [employer] to confirm they got discharge summery. [employer] was told that it hasn't arrived in there system yet but it can take some time. [employer] informed Jaqueline that patient has discharged and that patient will need equipment delivered today. Jaqueline stated they will still be able to deliver oxygen equipment today, they just need the Discharge summery as well. [employer] provided writers call back number to Jaqueline, if they need anything else. [employer] called and talked with Brock at [employer] who confirmed they got the discharge summery and everything is set to go for patient to get her home oxygen equipment tonight. Normal [facility] BASIC METABOLIC PANELon 06- 0-2024 Anion gap [Moles/Vol] 9 mmol/L Normal 7-20 [facility] Comment on above: Performed By: #### L [id number] ####[facility] ([facility])[address] [place] [address] Calcium [Mass/Vol] 8.1 mg/dL Low 8.6-10.3 [facility] Comment on above: Performed By: #### L [id number] ####[facility] ([facility])[address] [place] [address] Chloride [Moles/Vol] 105 mmol/L Normal 98-107 [facility] Comment on above: Performed By: #### L [id number] ####[facility] ([facility])[address] [place] [address] CO2 [Moles/Vol] 24 mmol/L Normal 21-31 [facility] Comment on above: Performed By: #### L [id number] ####[facility] ([facility])[address] [place] [address] Creatinine [Mass/Vol] 1.24 mg/dL High 0.60-1.20 [facility] Comment on above: Performed By: #### L [id number] ####[facility] ([facility])[address] [place] [address] GLOMERULAR FILTRATION RATE ML/MIN/1.73 SQ M.PREDICTED 46.5 mL/min/1.73m*2 Low >60.0 [facility] Comment on above: Result Comment: [facility]???s estimated glomerular filtration rate (eGFR) will no [...] of individuals. Performed By: #### L [id number] ####[facility] ([facility])[address] [place] [address] Glucose [Mass/Vol] 92 mg/dL Normal 70-100 [facility] Comment on above: Performed By: #### L [id number] ####[facility] ([facility])[address] [place] [address] Potassium [Moles/Vol] 4.2 mmol/L Normal 3.5-5.1 [facility] Comment on above: Performed By: #### L [id number] ####[facility] ([facility])[address] [place] [address] Sodium [Moles/Vol] 134 mmol/L Low 136-145 [facility] Comment on above: Performed By: #### L [id number] ####[facility] ([facility])[address] [place] [address] Urea nitrogen [Mass/Vol] 26 mg/dL High 7-25 [facility] Comment on above: Performed By: #### L [id number] ####[facility] ([facility])[address] [place] [address] UREA NITROGEN/CREATININE (MASS RATIO) IN SER/PLAS 21.0 Normal [facility] Comment on above: Performed By: #### L [id number] ####[facility] ([facility])[address] [place] [address] CBCon 09-05-2024 Erythrocyte distribution width (RBC) [Ratio] 14.0 % Normal 11.5-15.0 [facility] Comment on above: Performed By: #### L [id number] #### [facility] ([facility]) [address] [place] [address] ERYTHROCYTE MEAN CORPUSCULAR HEMOGLOBIN CONCENTRATION (G/DL) BY AUTOMATED 32.0 g/dL Normal 32.0-35.0 [facility] Comment on above: Performed By: #### L [id number] #### [facility] ([facility]) [address] [place] [address] Hematocrit (Bld) [Volume fraction] 31.9 % Low 36.0-45.0 [facility] Comment on above: Performed By: #### L [id number] #### [facility] ([facility]) [address] [place] [address] Hemoglobin (Bld) [Mass/Vol] 10.2 g/dL Low 12.0-15.0 [facility] Comment on above: Performed By: #### L [id number] #### [facility] ([facility]) [address] [place] [address] MCH (RBC) [Entitic mass] 30.8 pg Normal 27.0-33.0 [facility] Comment on above: Performed By: #### L [id number] #### [facility] ([facility]) [address] [place] [address] MCV (RBC) [Entitic vol] 96.4 fL Normal 82.0-98.0 [facility] Comment on above: Performed By: #### L [id number] #### [facility] ([facility]) [address] [place] [address] PLATELETS (10*3/UL) IN BLOOD AUTOMATED COUNT 247 10*3/uL Normal 150-400 [facility] Comment on above: Performed By: #### L [id number] #### [facility] ([facility]) [address] [place] [address] RBC (Bld) [#/Vol] 3.31 10*6/uL Low 3.80-5.00 [facility] Comment on above: Performed By: #### L [id number] #### [facility] ([facility]) [address] [place] [address] WBC (Bld) [#/Vol] 17.69 10*3/uL High 4.00-10.60 [facility] Comment on above: Performed By: #### L [id number] #### [facility] ([facility]) [address] [place] [address] NURSNOTEon 09-05-2024 NURSNOTE The findings from this [...] at this time. Dx:COPD 99 MONTHS Normal [facility] 30on 09-04-2024 30 The patient is Moderately [...] change or resting period as needed Normal [facility] 30 The patient is Moderately Stable - [...] optimal ventilation and oxygenation Outcome: Progressing Normal [facility] ANTI-XA (HEPARIN LEVEL)on HEPARIN UNFRACTIONATED (U/ML) IN PPP BY CHROMOGENIC METHOD <0.10 Invalid Interpretation Code 0.3-0.7 [facility] Comment on above: Order Comment: Check anti-Xa level every 6 hours while on heparin infusion, or per protocol. Result Comment: Phoenix roxaban and Apixaban will interfere with the anti Xa assay used to monitor UFH and LMWH. Performed By: #### L [id number] #### [facility] ([facility]) [address] [place] [address] HEPARIN UNFRACTIONATED (U/ML) IN PPP BY CHROMOGENIC METHOD 0.61 IU/mL Normal 0.3-0.7 [facility] Comment on above: Order Comment: Check anti-Xa level every 6 hours while on heparin infusion, or per protocol. Result Comment: Phoenix roxaban and Apixaban will interfere with the anti Xa assay used to monitor UFH and LMWH. Performed By: #### L [id number] #### [facility] ([facility]) [address] [place] [address] HEPARIN UNFRACTIONATED (U/ML) IN PPP BY CHROMOGENIC METHOD >1.00 Critically high 0.3-0.7 [facility] Comment on above: Order Comment: Check anti-Xa level every 6 hours while on heparin infusion, or per protocol. Result Comment: Phoenix roxaban and Apixaban will interfere with the anti Xa assay used to monitor UFH and LMWH. Performed By: #### L [id number] #### [facility] ([facility]) [address] [place] [address] ARTERIAL BLOOD GAS WITH IONI ZED CALCIUMon 09-04-2024 Base excess Calc (Bld) [Moles/Vol] -1.8000 mmol/L Normal -2.0-3.0 [facility] Comment on above: Performed By: #### L [id number] ####[facility] [id number] [place] [address] [place] CALCIUM IONIZED (MMOL/L) IN BLOOD 1.20 mmol/L Normal 1.15-1.33 [facility] Comment on above: Performed By: #### L [id number] ####[facility] [id number] [address] CO2 (Bld) [Partial pressure] 42 mm[Hg] Normal 35-48 [facility] Comment on above: Performed By: #### L [id number] ####[facility] [id number] [place], [place] [address] FIO2 40 % Normal [facility] Comment on above: Performed By: #### L [id number] ####[facility] [id number] [address] HCO3 (Bld) [Moles/Vol] 23.7 mmol/L Normal 21.0-28.0 [facility] Comment on above: Performed By: #### L [id number] ####[facility] [id number] [address] Oxygen (Bld) [Partial pressure] 92 mm[Hg] Normal 83-100 [facility] Comment on above: Performed By: #### L [id number] ####[facility] [id number] [address] OXYGEN SATURATION (%) IN ARTERIAL BLOOD 97.9 % Normal 94.0-98.0 [facility] Comment on above: Performed By: #### L [id number] ####[facility] [id number] [place] [address] [facility] pH (Bld) 7.36 [pH] Normal 7.35-7.45 [facility] Comment on above: Performed By: #### L [id number] ####[facility] [id number] [place] [address] SOURCE OF OXYGEN High flow nasal cannula Normal [facility] Comment on above: Performed By: #### L [id number] ####[facility] [id number] [place] [id number] [facility] BASIC METABOLIC PANELon 06-0 Anion gap [Moles/Vol] 10 mmol/L Normal 7-20 [facility] Comment on above: Performed By: #### L [id number] #### [facility] ([facility]) [address] [place] [address] Calcium [Mass/Vol] 7.7 mg/dL Low 8.6-10.3 [facility] Comment on above: Performed By: #### L [id number] #### [facility] ([facility]) [address] [place] [address] Chloride [Moles/Vol] 105 mmol/L Normal 98-107 [facility] Comment on above: Performed By: #### L [id number] #### [facility] ([facility]) [address] [place] [address] CO2 [Moles/Vol] 23 mmol/L Normal 21-31 [facility] Comment on above: Performed By: #### L [id number] #### [facility] ([facility]) [address] [place] [address] Creatinine [Mass/Vol] 1.21 mg/dL High 0.60-1.20 [facility] Comment on above: Performed By: #### L [id number] #### [facility] ([facility]) [address] [place] [address] GLOMERULAR FILTRATION RATE ML/MIN/1.73 SQ M.PREDICTED 47.9 mL/min/1.73m*2 Low >60.0 [facility] Comment on above: Result Comment: [facility]???s estimated glomerular filtration rate (eGFR) will no [...] individuals. Performed By: #### L [id number] #### [facility] ([facility]) [address] [place] [address] Glucose [Mass/Vol] 113 mg/dL High 70-100 [facility] Comment on above: Performed By: #### L [id number] #### [facility] ([facility]) [address] [place] [address] Potassium [Moles/Vol] 4.5 mmol/L Normal 3.5-5.1 [facility] Comment on above: Performed By: #### L [id number] #### [facility] ([facility]) [address] [place] [address] Sodium [Moles/Vol] 133 mmol/L Low 136-145 [facility] Comment on above: Performed By: #### L [id number] #### [facility] ([facility]) [address] [place] [address] Urea nitrogen [Mass/Vol] 24 mg/dL Normal 7-25 [facility] Comment on above: Performed By: #### L [id number] #### [facility] ([facility]) [address] [place] [address] UREA NITROGEN/CREATININE (MASS RATIO) IN SER/PLAS 19.8 [facility] Comment on above: Performed By: #### L [id number] #### [facility] ([facility]) [address] [place] [address] BLOOD CULTUREon 09-04-2024 Bacteria identified Cx Nom (Bld) No growth at 5 days [facility] Comment on above: Order Comment: From a different site than #1. Performed By: #### L [id number] ####[facility] ([facility])[address] [place] [address] Bacteria identified Cx Nom (Bld) No growth at 5 days [facility] Comment on above: Performed By: #### L [id number] ####[facility] ([facility])[address] [place] [address] CBCon 06-09-2025 Erythrocyte distribution width (RBC) [Ratio] 14.0 % Normal 11.5-15.0 [facility] Comment on above: Performed By: #### L [id number] ####[facility] ([facility]ER)[address] [place] [address] ERYTHROCYTE MEAN CORPUSCULAR HEMOGLOBIN CONCENTRATION (G/DL) BY AUTOMATED 32.5 g/dL Normal 32.0-35.0 [facility] Comment on above: Performed By: #### L [id number] ####[facility] ([facility])[address] [place] [address] Hematocrit (Bld) [Volume fraction] 32.0 % Low 36.0-45.0 [facility] Comment on above: Performed By: #### L [id number] ####[facility] ([facility])[address] [place] [address] Hemoglobin (Bld) [Mass/Vol] 10.4 g/dL Low 12.0-15.0 [facility] Comment on above: Performed By: #### L [id number] ####[facility] ([facility])[address] [place] [address] MCH (RBC) [Entitic mass] 31.4 pg Normal 27.0-33.0 [facility] Comment on above: Performed By: #### L [id number] ####[facility] ([facility])[address] [place] [address] MCV (RBC) [Entitic vol] 96.7 fL Normal 82.0-98.0 [facility] Comment on above: Performed By: #### L [id number] ####[facility] ([facility])[address] [place] [address] PLATELETS (10*3/UL) IN BLOOD AUTOMATED COUNT 227 10*3/uL Normal 150-400 [facility] Comment on above: Performed By: #### L [id number] ####[facility] ([facility]ER)[address] [place] [address] RBC (Bld) [#/Vol] 3.31 10*6/uL Low 3.80-5.00 [facility] Comment on above: Performed By: #### L [id number] ####[facility] ([facility])[address] [place] [address] WBC (Bld) [#/Vol] 19.91 10*3/uL High 4.00-10.60 [facility] Comment on above: Performed By: #### L [id number] ####[facility] ([facility])[address] [place] [address] CONSULTon 09-04-2024 CONSULT - Attestation signed by [...] We suspect this is a type 2 FL and, if she remains clinically stable, recommend no further cardiac evaluation at this time. We do recommend you continue aspirin, isosorbide, toprol XL, atorvastatin and other cardiac medications. Cardiology Consult Note Reason for Consult: NSTEMI HPI: Chiara Eduardo is a 69 y.o. female with a history of coronary artery disease, prior stent placement, COPD, History of acute inferior wall FL, HT, HLP, CKD, obesity presented with shortness of breath Cardiology consulted for elevated troponin and SOB Patient presented with worsening shortness of breath. She presented to [facility], found to have right lower lobe pneumonia, with increasing troponin to 78.9, lactic of 3.2, patient was started on heparin drip, antibiotics, and was sent to [facility] for further workup. Cardiac history:history of coronary [...] kidney disease, COPD (chronic obstructive pulmonary disease) ([facility]), Coronary artery disease, Coronary artery disease involving lime coronary artery of lime heart without angina pectoris (12/28/2016), Essential hypertension [...] Daily atorvastatin (LIPITOR) 80 mg, oral, Daily pbjxxxgskq-rcgxades-n ormoterol (Breztri Aerosphere) 160-9-4.8 mcg/actuation HFA aerosol [...] Medication Si (more content not included)... Normal [facility] HIGH SENSITIVITY CRPon 09-04 CRP, HIGH SENSITIVITY >300.0 High <=3.0 [facility] Comment on above: Result Comment: INTE [...] 3.0 mg/L ... high risk Performed By: [facility] [address] [place] [address] [employer]: Amol Tran MD, PhD CLIA Number: [id number] Performed By: #### L [id number] ####[facility] ([facility])[address] [place] [address] HIGH SENSITIVITY TROPONIN Io n 09-04-2024 HS TROPONIN I (NG/L) 1053 ng/L Critically high <15 [facility] Comment on above: Performed By: #### L [id number] ####[facility] ([facility])[address] [place] [address] LEGIONELLA ANTIGEN, URINEon 09-04-2024 LEGIONELLA AG, UR Negative Normal NEG [facility] Comment on above: Result Comment: L. p neumophila serogroup 1 antigen not detected. A negative result does not exclude infection with Leginella pnemophila serogroup 1 nor does it rule out other microbial-caused respiratory infections of disease caused by other serogroups of Legionella pneumophila. Test Performed by [facility] [address] [place] [id number] - Released 09/04/2024 20:22 Performed By: #### L [id number] ####[facility] [id number] [place] [address] MAGNESIUMon 09-04-2024 Magnesium [Mass/Vol] 1.8 mg/dL Low 1.9-2.7 [facility] Comment on above: Performed By: #### L [id number] #### [facility] ([facility]) [address] [place] [address] MYCOPLASMA PNEUMONIAE PCRon 09-04-2024 MYCOPLASMA PNEUMONIAE PCR Not detected Normal [facility] Comment on above: Result Comment: NOT DETECTED - A negative result does not rule out the presence of PCR inhibitors in the patient specimen or assay specific nucleic acid in concentrations below the level of detection by the assay. INTERPRETIVE INFORMATION: Mycoplasma pneumoniae by PCR This test was developed and its performance characteristics determined by [facility]. It has not been cleared or approved by the [place] Food and Drug Administration. This test was performed in a CLIA certified laboratory and is intended for clinical purposes. Performed By: [facility] [address] [place] [address] [employer]: Amol Tran MD, PhD CLIA Number: [id number] Performed By: #### L [id number] ####[facility] ([facility])[address] [place] [address] MYCOPLASMA PNEUMONIAE SOURCE Not Provided Normal [facility] Comment on above: Result Comment: Spec imen source was not provided. Please refer to the [employer] Laboratory Test Directory for validated specimen source information: [email or web address]. Interpret results with caution. Performed By: #### L [id number] ####[facility] (BEAKER)[address] [place] [address] SEDIMENTATION RATEon 025 SEDIMENTATION RATE, ERYTHROCYTE 21 mm/hr Normal <30 [facility] Comment on above: Performed By: #### L [id number] #### [facility] ([facility]) [address] [place] [address] 30on 09-03-2024 30 Problem: Pain - Adul [...] and behaviors that affect risk of falls [place] fall precautions as indicated by assessment Educate [...] for the shift include VSS; safety Normal [facility] 30 The patient is Moderately Stable - Low risk of patient condition declining or worsening The patient's goals for the shift include Comfort The clinical goals for the shift include VSS, safety Normal [facility] APTTon 09-03-2024 ACTIVATED PARTIAL THROMBOPLASTIN TIME IN PPP BY COAGULATION ASSAY 49.3 Seconds High 25.0-35.0 [facility] Comment on above: Order Comment: Basel ine aPTT before initiating heparin infusion. Result Comment: Clin ical significance of the APTT is questionable in the presence of heparin. Performed By: #### L [id number] #### [facility] ([facility]) [address] [place] [address] B-TYPE NATRIURETIC PEPTIDEon 09-03-2024 Natriuretic peptide B (Bld) [Mass/Vol] 708 pg/mL High 0-100 [facility] Comment on above: Performed By: #### L [id number] ####[facility] ([facility])[address] [place] [address] CBC WITH AUTO DIFFERENTIALon 09-03-2024 Basophils (Bld) [#/Vol] 0.03 10*3/uL Normal 0.00-0.20 [facility] Comment on above: Performed By: #### L [id number] ####[facility] ([facility])[address] [place] [address] Basophils/100 WBC (Bld) 0.2 % Normal 0.0-1.0 [facility] Comment on above: Performed By: #### L [id number] ####[facility] ([facility])[address] [place] [address] Eosinophils (Bld) [#/Vol] 0.24 10*3/uL Normal 0.00-0.50 [facility] Comment on above: Performed By: #### L [id number] ####[facility] ([facility])[address] [place] [address] Eosinophils/100 WBC (Bld) 1.2 % Normal 0.0-6.0 [facility] Comment on above: Performed By: #### L [id number] ####[facility] ([facility])[address] [place] [address] Erythrocyte distribution width (RBC) [Ratio] 13.8 % Normal 11.5-15.0 [facility] Comment on above: Performed By: #### L [id number] ####[facility] ([facility])[address] [place] [address] ERYTHROCYTE MEAN CORPUSCULAR HEMOGLOBIN CONCENTRATION (G/DL) BY AUTOMATED 32.1 g/dL Normal 32.0-35.0 [facility] Comment on above: Performed By: #### L [id number] ####[facility] ([facility])[address] [place] [address] Hematocrit (Bld) [Volume fraction] 38.3 % Normal 36.0-45.0 [facility] Comment on above: Performed By: #### L [id number] ####[facility] ([facility])[address] [place] [address] Hemoglobin (Bld) [Mass/Vol] 12.3 g/dL Normal 12.0-15.0 [facility] Comment on above: Performed By: #### L [id number] ####[facility] ([facility])[address] [place] [address] Immature granulocytes (Bld) [#/Vol] 0.10 10*3/uL Normal 0.00-0.20 [facility] Comment on above: Performed By: #### L [id number] ####[facility] ([facility])[address] [place] [address] Immature granulocytes/100 WBC (Bld) 0.5 % Normal 0.0-1.0 [facility] Comment on above: Performed By: #### L [id number] ####[facility] ([facility])[address] [place] [address] Lymphocytes (Bld) [#/Vol] 0.28 10*3/uL Low 1.20-4.00 [facility] Comment on above: Performed By: #### L [id number] ####[facility] ([facility])[address] [place] [address] Lymphocytes/100 WBC (Bld) 1.4 % Low 20.0-45.0 [facility] Comment on above: Performed By: #### L [id number] ####[facility] ([facility])[address] [place] [address] MCH (RBC) [Entitic mass] 31.1 pg Normal 27.0-33.0 [facility] Comment on above: Performed By: #### L [id number] ####[facility] ([facility])[address] [place], [place] [address] MCV (RBC) [Entitic vol] 97.0 fL Normal 82.0-98.0 [facility] Comment on above: Performed By: #### L [id number] ####[facility] ([facility])[address] [place], [place] [address] Monocytes (Bld) [#/Vol] 0.67 10*3/uL Normal 0.10-1.00 [facility] Comment on above: Performed By: #### L [id number] ####[facility] ([facility])[address] [place] [address] Monocytes/100 WBC (Bld) 3.4 % Low 5.0-12.0 [facility] Comment on above: Performed By: #### L [id number] ####[facility] ([facility])[address] [place] [address] Neutrophils (Bld) [#/Vol] 18.60 10*3/uL High 1.60-7.60 [facility] Comment on above: Performed By: #### L [id number] ####[facility] ([facility])[address] [place] [address] Neutrophils/100 WBC (Bld) 93.3 % High 40.0-72.0 [facility] Comment on above: Performed By: #### L [id number] ####[facility] ([facility])[address] [place] [address] NRBC (PER 100 WBCS) BY AUTOMATED COUNT 0.0 % Normal 0 [facility] Comment on above: Performed By: #### L [id number] ####[facility] ([facility])[address] [place] [address] PLATELETS (10*3/UL) IN BLOOD AUTOMATED COUNT 272 10*3/uL Normal 150-400 [facility] Comment on above: Performed By: #### L [id number] ####[facility] ([facility])[address] [place] [address] RBC (Bld) [#/Vol] 3.95 10*6/uL Normal 3.80-5.00 [facility] Comment on above: Performed By: #### L [id number] ####[facility] ([facility])[address] [place] [address] WBC (Bld) [#/Vol] 19.92 10*3/uL High 4.00-10.60 [facility] Comment on above: Performed By: #### L [id number] ####[facility] ([facility])[address] [place] [address] COMPREHENSIVE METABOLIC PANE Adam 09-03-2024 Albumin [Mass/Vol] 3.6 g/dL Normal 3.5-5.7 [facility] Comment on above: Performed By: #### L [id number] #### [facility] ([facility]) [address] [place] [address] ALP [Catalytic activity/Vol] 54 U/L Normal 34-104 [facility] Comment on above: Performed By: #### L [id number] #### [facility] ([facility]) [address] [place] [address] ALT [Catalytic activity/Vol] 19 U/L Normal 7-52 [facility] Comment on above: Performed By: #### L [id number] #### [facility] ([facility]) [address] [place] [address] Anion gap [Moles/Vol] 11 mmol/L Normal 7-20 [facility] Comment on above: Performed By: #### L [id number] #### [facility] ([facility]) [address] [place] [address] AST [Catalytic activity/Vol] 25 U/L Normal 13-39 [facility] Comment on above: Performed By: #### L [id number] #### [facility] ([facility]) [address] [place] [address] Bilirubin [Mass/Vol] 0.4 mg/dL Normal 0.3-1.0 [facility] Comment on above: Performed By: #### L [id number] #### [facility] ([facility]) [address] [place] [address] Calcium [Mass/Vol] 8.3 mg/dL Low 8.6-10.3 [facility] Comment on above: Performed By: #### L [id number] #### [facility] ([facility]) [address] [place] [address] Chloride [Moles/Vol] 103 mmol/L Normal 98-107 [facility] Comment on above: Performed By: #### L [id number] #### [facility] ([facility]) [address] [place] [address] CO2 [Moles/Vol] 25 mmol/L Normal 21-31 [facility] Comment on above: Performed By: #### L [id number] #### [facility] ([facility]) [address] [place] [address] Creatinine [Mass/Vol] 1.48 mg/dL High 0.60-1.20 [facility] Comment on above: Performed By: #### L [id number] #### [facility] ([facility]) [address] [place] [address] GLOMERULAR FILTRATION RATE ML/MIN/1.73 SQ M.PREDICTED 37.6 mL/min/1.73m*2 Low >60.0 [facility] Comment on above: Result Comment: [facility]???s estimated glomerular filtration rate (eGFR) will no [...] of individuals. Performed By: #### L [id number] #### [facility] ([facility]) [address] [place] [address] Glucose [Mass/Vol] 130 mg/dL High 70-100 [facility] Comment on above: Performed By: #### L [id number] #### [facility] ([facility]) [address] [place] [address] Potassium [Moles/Vol] 4.8 mmol/L Normal 3.5-5.1 [facility] Comment on above: Performed By: #### L [id number] #### [facility] ([facility]) [address] [place] [address] Protein [Mass/Vol] 6.0 g/dL Normal 6.0-8.3 [facility] Comment on above: Performed By: #### L [id number] #### [facility] ([facility]) [address] [place] [address] Sodium [Moles/Vol] 134 mmol/L Low 136-145 [facility] Comment on above: Performed By: #### L [id number] #### [facility] ([facility]) [address] [place] [address] Urea nitrogen [Mass/Vol] 29 mg/dL High 7-25 [facility] Comment on above: Performed By: #### L [id number] #### [facility] ([facility]) [address] [place] [address] UREA NITROGEN/CREATININE (MASS RATIO) IN SER/PLAS 19.6 Normal [facility] Comment on above: Performed By: #### L [id number] #### [facility] ([facility]) [address] [place] [address] HEMOGLOBIN A1Con 09-03-2024 Glucose [Mass/Vol] 143 mg/dL Normal [facility] Comment on above: Performed By: #### L [id number] #### [facility] ([facility]) [address] [place] [address] HbA1c (Bld) [Mass fraction] 6.6 % High 4.0-6.0 [facility] Comment on above: Performed By: #### L [id number] #### [facility] ([facility]) [address] [place] [address] HIGH SENSITIVITY TROPONIN Io n 09-03-2024 HS TROPONIN I (NG/L) 1478 ng/L Critically high <15 [facility] Comment on above: Performed By: #### L [id number] #### [facility] ([facility]) [address] [address] HS TROPONIN I (NG/L) 1746 ng/L Critically high <15 [facility] Comment on above: Performed By: #### L [id number] #### [facility] ([facility]) [address] [facility] [place] [address] HS TROPONIN I (NG/L) 1891 ng/L Critically high <15 [facility] Comment on above: Performed By: #### L [id number] #### [facility] ([facility]) [address] [facility] [place] [address] LACTIC ACID WITH 4 HOUR REFL EXon 09-03-2024 LACTATE (MMOL/L) IN SER/PLAS 1.6 mmol/L Normal 0.5-2.2 [facility] Comment on above: Performed By: #### L [id number] ####[facility] ([facility])[address] [place] [address] LIPID PANELon 09-03-2024 CHOL/HDL 1.8 mg/dL Normal [facility] Comment on above: Performed By: #### L [id number] ####[facility] ([facility])[address] [place] [address] Cholesterol [Mass/Vol] 125 mg/dL Normal 120-200 [facility] Comment on above: Performed By: #### L [id number] ####[facility] ([facility])[address] [place] [address] Magnesium [Mass/Vol] 44 mg/dL Normal <150 [facility] Comment on above: Result Comment: TRIG LYCERIDE REFERENCE RANGE: 20 YEARS AND OLDER CARDIOVASCULAR RISK LESS THAN 150 mg/dL LOW RISK 150 TO 199 mg/dL BORDERLINE RISK 200 mg/dL AND GREATER HIGH RISK Performed By: #### L [id number] ####[facility] ([facility])[address] [place] [address] Magnesium [Mass/Vol] 46 mg/dL Normal 0-160 [facility] Comment on above: Performed By: #### L [id number] ####[facility] ([facility])[address] [place] [address] Magnesium [Mass/Vol] 70 mg/dL Normal 23-92 [facility] Comment on above: Performed By: #### L [id number] ####[facility] ([facility])[address] [place] [address] NON HDL CHOL. (LDL+VLDL) 55 Normal [facility] Comment on above: Performed By: #### L [id number] ####[facility] ([facility])[address] [place] [address] TOTAL VLDL-C 9 mg/dL Normal 0-40 [facility] Comment on above: Performed By: #### L [id number] ####[facility] ([facility])[address] [place] [address] LIPOPROTEIN A (LPA)on 2024 Magnesium [Mass/Vol] 33 mg/dL High <=29 [facility] Comment on above: Result Comment: Perf ormed By: [employer] [address] [place] [address] [employer]: Amol Tran MD, PhD CLIA Number: [id number] Performed By: #### L [id number] #### [facility] ([facility]) [address] [place] [address] MAGNESIUMon 09-03-2024 Magnesium [Mass/Vol] 1.8 mg/dL Low 1.9-2.7 [facility] Comment on above: Performed By: #### L [id number] #### [facility] ([facility]) [address] [place] [address] SPUTUM CULTUREon 09-03-2024 GRAM STAIN RESULT Normal [facility] Comment on above: Order Comment: Light Growth Colonies Consistent with Upper Respiratory Terrie Result Comment: 10-2 5 Squamous Epithelial Cells Per Low Power Field >25 Polys Per Low Power Field Few Gram positive cocci in pairs Performed By: #### L [id number] ####[facility] ([facility])[address] [place] [address] ALL CBC WITH AUTO DIFFon BASOPHILS ABSOLUTE AUTO 0.1 [facility] Basophils/100 WBC (Bld) 0.8 % 0.2 - 2.0 % [facility] Eosinophils/100 WBC (Bld) 0.9 % 0.9 - 7.0 % [facility] Erythrocyte distribution width (RBC) [Ratio] 14.1 % 11.0 - 15.0 % [facility] Hematocrit (Bld) [Volume fraction] 38.4 % 36.0 - 48.0 % [facility] Hemoglobin (Bld) [Mass/Vol] 12.4 g/dL 12.0 - 16.0 g/dL [facility] IMMATURE GRANULOCYTES ABS AUTO 0.07 High [facility] Immature granulocytes/100 WBC (Bld) 0.7 % High 0.0 - 0.5 % [facility] Interpretation and review of laboratory results Abnormal [facility] LYMPHOCYTES ABSOLUTE AUTO 2.1 [facility] Lymphocytes/100 WBC (Bld) 19.2 % Low 20.5 - 60.0 % [facility] MCH (RBC) [Entitic mass] 31.6 pg 26.7 - 34.0 pg [facility] MCHC (RBC) [Mass/Vol] 32.3 g/dL 29.9 - 35.2 g/dL [facility] MCV (RBC) [Entitic vol] 97.7 fL 81.0 - 99.0 fL [facility] MONOCYTES ABSOLUTE AUTO 0.9 High [facility] Monocytes/100 WBC (Bld) 8.2 % 1.7 - 12.0 % [facility] NEUTROPHILS ABSOLUTE AUTO 7.5 High [facility] Neutrophils/100 WBC (Bld) 70.2 % 43.0 - 75.0 % [facility] Platelet mean volume (Bld) [Entitic vol] 9 fL Low 9.5 - 13.5 fL [facility] TB EO # 0.1 [facility] TB PLT 370 [facility] TB RBC 3.93 Low [facility] TB WBC 10.7 [facility] Office Visiton 08-01-2024 Follow-up visit [id number] Chiara Eduardo 1955 F Date Provider Department Center 08/01/2024 [id number], EHAB CARD [facility] Family History Problem Relation Age of Onset Stroke Mother Kidney disease Father Coronary artery disease Paternal Grandfather Family Status - Relation Status Age at Mother Father Paternal Grandfather Level of Service:87592 [place] OFFICE/OUTPATIENT ESTABLISHED LOW MDM 20 MIN Normal [facility] ALL CBC WITH AUTO DIFFon BASOPHILS ABSOLUTE AUTO 0.1 [facility] Basophils/100 WBC (Bld) 0.5 % 0.2 - 2.0 % [facility] Eosinophils/100 WBC (Bld) 0.3 % Low 0.9 - 7.0 % [facility] Erythrocyte distribution width (RBC) [Ratio] 14.6 % 11.0 - 15.0 % [facility] Hematocrit (Bld) [Volume fraction] 37.3 % 36.0 - 48.0 % [facility] Hemoglobin (Bld) [Mass/Vol] 12.3 g/dL 12.0 - 16.0 g/dL [facility] IMMATURE GRANULOCYTES ABS AUTO 0.04 High [facility] Immature granulocytes/100 WBC (Bld) 0.3 % 0.0 - 0.5 % [facility] Interpretation and review of laboratory results Abnormal [facility] LYMPHOCYTES ABSOLUTE AUTO 1.8 [facility] Lymphocytes/100 WBC (Bld) 15.7 % Low 20.5 - 60.0 % [facility] MCH (RBC) [Entitic mass] 32.1 pg 26.7 - 34.0 pg [facility] MCHC (RBC) [Mass/Vol] 33 g/dL 29.9 - 35.2 g/dL [facility] MCV (RBC) [Entitic vol] 97.4 fL 81.0 - 99.0 fL [facility] MONOCYTES ABSOLUTE AUTO 0.8 [facility] Monocytes/100 WBC (Bld) 6.9 % 1.7 - 12.0 % [facility] NEUTROPHILS ABSOLUTE AUTO 8.8 High [facility] Neutrophils/100 WBC (Bld) 76.3 % High 43.0 - 75.0 % [facility] Platelet mean volume (Bld) [Entitic vol] 9.3 fL Low 9.5 - 13.5 fL [facility] TBH EO # 0 [facility] TBH PLT 308 [facility] TB RBC 3.83 Low [facility] TB WBC 11.5 High [facility] Urine Cultureon 07-26-2024 Bacteria identified Cx Nom (U) 50,000 colonies/ml mixed bacterial skin contaminants 2 Days PERFORMED BY: [address] [place] [id number] PATHOLOGIST EMERGENCY ROOM ORDERLY LETICIA KAHN M.D. Normal [facility] Comment on above: Performed By: #### C UU #### [place] [id number] [facility] 36on 07-25-2024 36 Regarding labs from [...] on 07/26/2024 Normal [facility] ALL CBC WITH AUTO DIFFon Erythrocyte distribution width (RBC) [Ratio] 14.5 % 11.0 - 15.0 % [facility] Hematocrit (Bld) [Volume fraction] 37.9 % 36.0 - 48.0 % [facility] Hemoglobin (Bld) [Mass/Vol] 12.4 g/dL 12.0 - 16.0 g/dL [facility] Interpretation and review of laboratory results Abnormal [facility] MCH (RBC) [Entitic mass] 31.3 pg 26.7 - 34.0 pg [facility] MCHC (RBC) [Mass/Vol] 32.7 g/dL 29.9 - 35.2 g/dL [facility] MCV (RBC) [Entitic vol] 95.7 fL 81.0 - 99.0 fL [facility] Platelet mean volume (Bld) [Entitic vol] 9.4 fL Low 9.5 - 13.5 fL [facility] TBH PLT 322 [facility] TBH RBC 3.96 Low [facility] TBH WBC 23.5 High [facility] Telephoneon 07-25-2024 Telephone [id number] Chiara Eduardo 1955 F Date Provider Department Center 07/25/2024 [id number] [facility] Family History Problem Relation Age of Onset Stroke Mother Kidney disease Father Coronary artery disease Paternal Grandfather Family Status - Relation Status Age at Mother Father Paternal Grandfather Normal [facility] Erythrocyte distribution wid th Auto (RBC) [Ratio]on 07-17-2024 Erythrocyte distribution width (RBC) [Ratio] Erythrocyte distribution width [Ratio] by Automated count 11.0-15.0 [facility] Estimated glomerular filtrat ion rate (GFR) non- Americanon 07-17-2024 GFR/1.73 sq M.predicted among non-blacks MDRD (S/P/Bld) [Vol rate/Area] Estimated glomerular filtration rate (GFR) non- Low >=60 mL/min/1.73m 2 [facility] Hematocrit Auto (Bld) [Volum e fraction]on 07-17-2024 Hematocrit (Bld) [Volume fraction] Hematocrit [Volume Fraction] of Blood by Automated count 36.0-48.0 [facility] Hemoglobin [Mass/volume] in Bloodon 07-17-2024 Hemoglobin (Bld) [Mass/Vol] Hemoglobin [Mass/volume] in Blood 12.0-16.0 [facility] Laboratory - Chemistry and C hemistry - challengeon 07-17-2024 Albumin [Mass/Vol] 3.4 g/dL 3.4-5.0 [facility] Calcium [Mass/Vol] 8.8 mg/dL 8.5-10.1 [facility] Chloride [Moles/Vol] 99 mmol/L 98-107 [facility] CO2 [Moles/Vol] 27.2 mmol/L 21.0-32.0 [facility] Creatinine [Mass/Vol] 1.44 mg/dL High 0.55-1.02 [facility] GFR/1.73 sq M.predicted MDRD (S/P/Bld) [Vol rate/Area] 43 mL/min/{1.73_m2} Low >=60 mL/min/1.73m 2 [facility] Glucose [Mass/Vol] 105 mg/dL 74-106 [facility] Magnesium [Mass/Vol] 2.1 mg/dL 1.8-2.4 [facility] Potassium [Moles/Vol] 4.9 mmol/L 3.5-5.1 [facility] Sodium [Moles/Vol] 135 mmol/L Low 136-145 [facility] Urate [Mass/Vol] 5.0 mg/dL 2.6-6.0 [facility] Urea nitrogen [Mass/Vol] 20.0 mg/dL High 7.0-18.0 [facility] Urea nitrogen/Creatinine [Mass ratio] 13.9 mg/mg [facility] Laboratory - Urinalysison Protein (U) [Mass/Vol] 25.2 mg/dL High <=11.9 [facility] Leukocytes [#/volume] correc maryuri for nucleated erythrocytes in Blood by Automated counon 07-17-2024 WBC corrected for nucl RBC Auto (Bld) [#/Vol] Leukocytes [#/volume] corrected for nucleated erythrocytes in Blood by Automated coun 4.0-11.0 [facility] MCH Auto (RBC) [Entitic mass ]on 04-21-2025 MCH (RBC) [Entitic mass] MCH [Entitic mass] by Automated count 26.7-34.0 [facility] MCHC Auto (RBC) [Mass/Vol]on 07-17-2024 MCHC (RBC) [Mass/Vol] MCHC [Mass/volume] by Automated count 29.9-35.2 [facility] MCV Auto (RBC) [Entitic vol] on 07-17-2024 MCV (RBC) [Entitic vol] MCV [Entitic volume] by Automated count 81.0-99.0 [facility] No Panel Informationon 07-17 Parathyroid Hormone (Intact) 68 pg/mL Abnormal 15-65 [facility] Comment on above: Performed at: [place] [id number] Director: True Herron PhD, Phone: [phone] Phosphorus Level 3.2 mg/dL 2.6-4.7 [facility] Urine Random Creatinine 68.16 mg/dL 20.00-300.00 [facility] Platelet mean volume Auto (B ld) [Entitic vol]on 07-17-2024 Platelet mean volume (Bld) [Entitic vol] Platelet mean volume [Entitic volume] in Blood by Automated count 9.5-13.5 [facility] Platelets Auto (Bld) [#/Vol] on 07-17-2024 Platelets (Bld) [#/Vol] Platelets [#/volume] in Blood by Automated count 150-450 [facility] RBC Auto (Bld) [#/Vol]on RBC (Bld) [#/Vol] Erythrocytes [#/volume] in Blood by Automated count Low 4.20-5.40 [facility] Serum or plasma anion gap de terminationon 07-17-2024 Anion gap [Moles/Vol] Serum or plasma an ion gap determination [facility] TBH URINE T PROTEIN CREAT RA TIOon 07-17-2024 CREATININE URINE RANDOM 68.16 mg/dL 20.00 - 300.00 mg/dL [facility] Interpretation and review of laboratory results Abnormal [facility] Protein (U) [Mass/Vol] 25.2 mg/dL High NINF - 11.9 mg/dL [facility] PROTEIN CREATININE RATIO URINE 0.37 [facility] Urine protein/creatinine rat ioon 07-17-2024 Protein/Creatinine (U) [Ratio] Urine protein/creatinine ratio [facility] ANESon 07-03-2024 ANES - Attestation signed by Abby Azevedo MD at 07/03/2024 9:27 AM Abby Azevedo MD, MPH, [facility], [facility], [facility] Interventional Cardiology Pager Email: [email or web address] Patient: Chiara Eduardo Procedure Information Date/Time: 07/03/24 1030 Procedures: Coronary angiography - PC APPROVED 06/16-09/13 R IJ L RAD Right heart cath Location: [facility] PHOTOGRAPH INSPECTOR 3 / [facility] (Cath) Providers: Abby Azevedo [...] Equipment Requests Normal [facility] HPon 07-03-2024 HP - Attestation signed by Abby Azevedo MD at 07/03/2024 9:27 AM Abby Azevedo MD, MPH, [facility], [facility], [facility] Interventional Cardiology Pager Email: [email or web address] H&P reviewed. The patient was examined and there are no changes to the H&P. Proceed with CORS + C Geo Laboy MD PGY-5 [employer] [facility] Pager # [phone] Normal [facility] NURSNOTEon 07-03-2024 NURSNOTE RN educated pt on [...] of belongings. Normal [facility] NURSNOTE Per Dr. Medrano patient to get LR at 100ml per hr for pre cath hydration Normal [facility] ALL CBC WITH AUTO DIFFon BASOPHILS ABSOLUTE AUTO 0.1 [facility] Basophils/100 WBC (Bld) 0.7 % 0.2 - 2.0 % [facility] Eosinophils/100 WBC (Bld) 0.9 % 0.9 - 7.0 % [facility] Erythrocyte distribution width (RBC) [Ratio] 15.5 % High 11.0 - 15.0 % [facility] Hematocrit (Bld) [Volume fraction] 36.4 % 36.0 - 48.0 % [facility] Hemoglobin (Bld) [Mass/Vol] 12 g/dL 12.0 - 16.0 g/dL [facility] IMMATURE GRANULOCYTES ABS AUTO 0.04 High [facility] Immature granulocytes/100 WBC (Bld) 0.4 % 0.0 - 0.5 % [facility] Interpretation and review of laboratory results Abnormal [facility] LYMPHOCYTES ABSOLUTE AUTO 1.2 [facility] Lymphocytes/100 WBC (Bld) 12.3 % Low 20.5 - 60.0 % [facility] MCH (RBC) [Entitic mass] 31.8 pg 26.7 - 34.0 pg [facility] MCHC (RBC) [Mass/Vol] 33 g/dL 29.9 - 35.2 g/dL [facility] MCV (RBC) [Entitic vol] 96.6 fL 81.0 - 99.0 fL [facility] MONOCYTES ABSOLUTE AUTO 0.7 [facility] Monocytes/100 WBC (Bld) 6.6 % 1.7 - 12.0 % [facility] NEUTROPHILS ABSOLUTE AUTO 8 High [facility] Neutrophils/100 WBC (Bld) 79.1 % High 43.0 - 75.0 % [facility] Platelet mean volume (Bld) [Entitic vol] 8.8 fL Low 9.5 - 13.5 fL [facility] TBH EO # 0.1 [facility] TB PLT 290 [facility] TB RBC 3.77 Low [facility] WBC 10.1 [facility] CLINISYNC [facility] HPon 06-15-2024 [facility] Cardiology Clinic Note Chief Complaint: Patient [...] has noticed worsening shortness of breath. Her stamp redemption clerk adjusted her inhalers but this does not [...] kidney disease, COPD (chronic obstructive pulmonary disease) ([facility]), Coronary artery disease, Coronary artery disease involving lime coronary artery of lime heart without angina pectoris (12/28/2016), Essential hypertension [...] mg table (more content not included)... Normal [facility] Office Visiton 06-15-2024 Follow-up visit [id number] Chiara Eduardo Brown 1955 F Date Provider Department Center 06/15/2024 ABBY PATEL JUSTIN Garcia Family History Problem Relation Age of Onset Stroke Mother Kidney disease Father Coronary artery disease Paternal Grandfather Family Status - Relation Status Age at Mother Father Paternal Grandfather Level of Service:[address]19 [place] OFFICE/OUTPATIENT ESTABLISHED HIGH MDM 40 MIN [facility] Orders Onlyon 06-15-2024 Orders Only [id number] Chiara Eduardo Brown 1955 F Date Provider Department Center 06/15/2024 ALLAN BHAKTA JUSTIN Garcia Family History Problem Relation Age of Onset Stroke Mother Kidney disease Father Coronary artery disease Paternal Grandfather Family Status - Relation Status Age at Mother Father Paternal Grandfather [facility] Office Visiton 05-23-2024 Follow-up visit [id number] Chiara Eduardo Brown 1955 F Date Provider Department Center 05/23/2024 XANDER FARLEY JUSTIN Garcia Family History Problem Relation Age of Onset Stroke Mother Kidney disease Father Coronary artery disease Paternal Grandfather Family Status - Relation Status Age at Mother Father Paternal Grandfather Level of Service:83357 [place] OFFICE/OUTPATIENT ESTABLISHED LOW MDM 20 MIN [facility] TBH URINE T PROTEIN CREAT RA Kamron 02-02-2024 CREATININE URINE RANDOM 78.2 mg/dL 20.00 - 300.00 mg/dL [facility] Protein (U) [Mass/Vol] 8.7 mg/dL NINF - 11.9 mg/dL [facility] PROTEIN CREATININE RATIO URINE 0.11 [facility] ALL HEMOGLOBINon 01-24-2024 Hemoglobin (Bld) [Mass/Vol] 11 g/dL Low 12.0 - 16.0 g/dL [facility] Interpretation and review of laboratory results Abnormal [facility] 36on 01-04-2024 36 Patient seen today b y Dr. Sequeira. He wants to know if she can stop Effient due to easy bruising/bleeding. Please advise. Thanks. Normal [facility] Office Visiton 01-04-2024 Follow-up visit [id number] Chiara Eduardo 1955 F Date Provider Department Center 01/04/2024 Lonny-XANDER SEQUEIRA JUSTIN Garcia Family History Problem Relation Age of Onset Stroke Mother Kidney disease Father Coronary artery disease Paternal Grandfather Family Status - Relation Status Age at Mother Father Paternal Grandfather Level of Service:80001 [place] OFFICE/OUTPATIENT ESTABLISHED LOW MDM 20 MIN Normal [facility] Iron binding capacity [Mass/ volume] in Serum or Plasmaon 11-23-2023 Iron binding capacity [Mass/Vol] 365.0 ug/dL 250.0-450.0 [facility] Iron saturation [Mass Fracti on] in Serum or Plasmaon 11-23-2023 Iron saturation [Mass fraction] 5.5 % [facility] Laboratory - Chemistry and C hemistry - challengeon 11-23-2023 Ferritin [Mass/Vol] 25.0 ng/mL 8.0-252.0 [facility] Iron [Mass/Vol] 20.0 ug/dL Low 50.0-170.0 [facility]ON [facility] TIBCon 2023 Interpretation and review of laboratory results Abnormal [facility] TBH IRON 20.0 ug/dL Low 50.0 - 170.0 ug/dL [facility] TB PERCENT IRON SATURATION 5.5 % [facility] TOTAL IRON BINDING CAPACITY 365.0 ug/dL 250.0 - 450.0 ug/dL [facility] Erythrocyte distribution wid th Auto (RBC) [Ratio]on 11-08-2023 Erythrocyte distribution width (RBC) [Ratio] 16.4 % High 11.0-15.0 [facility] Estimated glomerular filtrat ion rate (GFR) non- Americanon 11-08-2023 GFR/1.73 sq M.predicted among non-blacks MDRD (S/P/Bld) [Vol rate/Area] 37 mL/min/{1.73_m2} Low >=60 [facility] Globulin Calc (S) [Mass/Vol] on 11-08-2023 Globulin (S) [Mass/Vol] 3.9 g/dL [facility] Hematocrit Auto (Bld) [Volum e fraction]on 11-08-2023 Hematocrit (Bld) [Volume fraction] 28.1 % Low 36.0-48.0 [facility] Hemoglobin [Mass/volume] in Bloodon 11-08-2023 Hemoglobin (Bld) [Mass/Vol] 8.7 g/dL Low 12.0-16.0 [facility] Laboratory - Chemistry and C hemistry - challengeon 11-08-2023 Albumin [Mass/Vol] 3.4 g/dL 3.4-5.0 [facility] ALP [Catalytic activity/Vol] 81 U/L 46-116 [facility] ALT [Catalytic activity/Vol] 26 U/L 14-59 [facility] AST [Catalytic activity/Vol] 23 U/L 15-37 [facility] Bilirubin [Mass/Vol] 0.3 mg/dL 0.2-1.0 [facility] Calcium [Mass/Vol] 8.7 mg/dL 8.5-10.1 [facility] Chloride [Moles/Vol] 93 mmol/L Low 98-107 [facility] CO2 [Moles/Vol] 27.4 mmol/L 21.0-32.0 [facility] Creatinine [Mass/Vol] 1.40 mg/dL High 0.55-1.02 [facility] GFR/1.73 sq M.predicted MDRD (S/P/Bld) [Vol rate/Area] 45 mL/min/{1.73_m2} Low >=60 [facility] Glucose [Mass/Vol] 96 mg/dL 74-106 [facility] Magnesium [Mass/Vol] 2.2 mg/dL 1.8-2.4 [facility] Potassium [Moles/Vol] 4.4 mmol/L 3.5-5.1 [facility] Protein [Mass/Vol] 7.3 g/dL 6.4-8.2 [facility] Sodium [Moles/Vol] 128 mmol/L Low 136-145 [facility] Urate [Mass/Vol] 5.6 mg/dL 2.6-6.0 [facility] Urea nitrogen [Mass/Vol] 20.0 mg/dL High 7.0-18.0 [facility] Urea nitrogen/Creatinine [Mass ratio] 14.3 mg/mg [facility] Bilirubin Ql (U) Negative NEGATIVE [facility] Glucose (U) [Mass/Vol] Negative NEGATIVE [facility] Ketones Ql (U) Negative NEGATIVE [facility] pH (U) 7.5 [pH] 5.0-9.0 [facility] Specific gravity (U) [Rel density] 1.010 1.005-1.025 [facility] Urobilinogen Qn (U) 0.2 {Chuy'U}/dL 0.2-1.0 [facility] Laboratory - Specimen inform ationon 11-08-2023 Appearance (U) CLEAR CLEAR [facility] Color (U) YELLOW YELLOW [facility] Laboratory - Urinalysison Leukocyte esterase Test strip Ql (U) Negative NEGATIVE [facility] Nitrite Ql (U) Negative NEGATIVE [facility] Protein (U) [Mass/Vol] 11.9 mg/dL <=11.9 [facility] Protein Ql (U) Negative NEG/TRACE [facility] Leukocytes [#/volume] correc maryuri for nucleated erythrocytes in Blood by Automated counon 11-08-2023 WBC corrected for nucl RBC Auto (Bld) [#/Vol] 7.3 10 3/uL 4.0-11.0 [facility] MCH Auto (RBC) [Entitic mass ]on 11-08-2023 MCH (RBC) [Entitic mass] 26.1 pg Low 26.7-34.0 [facility] MCHC Auto (RBC) [Mass/Vol]on 11-08-2023 MCHC (RBC) [Mass/Vol] 31.0 g/dL 29.9-35.2 [facility] MCV Auto (RBC) [Entitic vol] on 11-08-2023 MCV (RBC) [Entitic vol] 84.4 fL 81.0-99.0 [facility] No Panel Informationon 11-07 25-Hydroxy Vitamin D Total 32.6 ng/mL [facility] Comment on above: <20 ng/mL Vit D defi cient20-<30 ng/mL Vit D atwpmahlpjun08-518 ng/mL Vit D sufficient>100 ng/mL Potential Toxicity Parathyroid Hormone (Intact) 106 pg/mL Abnormal 15-65 [facility] Comment on above: Performed at: [facility] [employer] [address] [id number] Director: True Herron PhD, Phone: [phone] Phosphorus Level 3.8 mg/dL 2.6-4.7 [facility] Urine Occult Blood Negative NEGATIVE [facility] Urine Random Creatinine 73.41 mg/dL 20.00-300.00 [facility] Platelet mean volume Auto (B ld) [Entitic vol]on 11-08-2023 Platelet mean volume (Bld) [Entitic vol] 8.6 fL Low 9.5-13.5 [facility] Platelets Auto (Bld) [#/Vol] on 11-08-2023 Platelets (Bld) [#/Vol] 401 10 3/uL 150-450 [facility] RBC Auto (Bld) [#/Vol]on RBC (Bld) [#/Vol] 3.33 10 6/uL Low 4.20-5.40 [facility] Serum or plasma albumin/glob ulin mass ratioon 11-08-2023 Albumin/Globulin [Mass ratio] 0.9 {ratio} [facility] Serum or plasma anion gap de terminationon 11-08-2023 Anion gap [Moles/Vol] 12.0 mmol/L [facility] U[facility] protein/creatinine rat ioon 08-12-2024 Protein/Creatinine (U) [Ratio] 0.16 [facility] PTH INTACTon 08-04-2022 PTH, Intact 41 pg/mL Normal 15-65 [facility] Comment on above: Performed By: #### P THINT ####[facility] [address] [place], [place] [address]TbDr. Osmel Shelton HEMOGRAM AND PLATELon 2022 Hematocrit (Bld) [Volume fraction] 34.6 % Critically low 36.0-48.0 [facility] Comment on above: Performed By: #### H H #### [facility] [address] [address] [address] Osmel Shelton Hemoglobin (Bld) [Mass/Vol] 11.1 g/dL Critically low 12.0-16.0 [facility] Comment on above: Performed By: #### H H #### [facility] [address] [address] [address] Osmel Shelton MCH (RBC) [Entitic mass] 29.3 pg Normal 26.7-34.0 [facility] Comment on above: Performed By: #### H H #### [facility] [address] [address] [address] Osmel Shelton MCHC (RBC) [Mass/Vol] 32.1 g/dL Normal 29.9-35.2 [facility] Comment on above: Performed By: #### H H #### [facility] [address] [address] [address] Osmel Shelton MCV (RBC) [Entitic vol] 91.3 fL Normal 81.0-99.0 [facility] Comment on above: Performed By: #### H H #### [facility] [address] [address] [address] Osmel Shelton PLT 306 103/ul Normal 150-450 [facility] Comment on above: Performed By: #### H H #### [facility] [address] [address] [address] Osmel Shelton RBC 3.79 106/ul Critically low 4.20-5.40 [facility] Comment on above: Performed By: #### H H #### [facility] [address] [address] [address] Osmel Shelton WBC 4.8 103/ul Normal 4.0-11.0 [facility] Comment on above: Performed By: #### H H #### [facility] [address] [address] [address] Osmel Shelton MAGNESIUMon 08-03-2022 Magnesium [Mass/Vol] 1.9 mg/dL Normal 1.8-2.4 [facility] Comment on above: Performed By: #### P HOS, MG, CMP, URIC #### [facility] [address] [address] [address] Osmel Shelton PHOSPHORUSon 08-03-2022 Phosphate [Mass/Vol] 4.4 mg/dL Normal 2.6-4.7 [facility] Comment on above: Performed By: #### P HOS, MG, CMP, URIC #### [facility] [address] [place] [address] Dr. Osmel Shelton PROF 14(COMP METB)on 023 Albumin [Mass/Vol] 3.6 g/dL Normal 3.4-5.0 [facility] Comment on above: Performed By: #### P HOS, MG, CMP, URIC ####[facility] [address] [address]Dr. Osmel Shelton Albumin/Globulin [Mass ratio] 0.9 {ratio} Normal [facility] Comment on above: Performed By: #### P HOS, MG, CMP, URIC ####[facility] [address] [address]DrLissett Shelton ALP [Catalytic activity/Vol] 136 U/L Critically high 46-116 [facility] Comment on above: Performed By: #### P HOS, MG, CMP, URIC ####[facility] [address] [address]DrLissett Shelton ALT [Catalytic activity/Vol] 29 U/L Normal 14-59 [facility] Comment on above: Performed By: #### P HOS, MG, CMP, URIC ####[facility] [address] [address]Dr. Osmel Shelton Anion gap [Moles/Vol] 13.5 mmol/L Normal [facility] Comment on above: Performed By: #### P HOS, MG, CMP, URIC ####[facility] [address] [address]Dr. Osmel Shelton AST [Catalytic activity/Vol] 27 U/L Normal 15-37 [facility] Comment on above: Performed By: #### P HOS, MG, CMP, URIC ####[facility] [address] [address]Dr. Osmel Shelton Bilirubin [Mass/Vol] 0.2 mg/dL Normal 0.2-1.0 [facility] Comment on above: Performed By: #### P HOS, MG, CMP, URIC ####[facility] [address] [place], [place] [address]Dr. Osmel Shelton Calcium [Mass/Vol] 9.0 mg/dL Normal 8.5-10.1 [facility] Comment on above: Performed By: #### P HOS, MG, CMP, URIC ####[facility] [address] [place], [place] [address]Dr. Osmel Shelton Chloride [Moles/Vol] 100 mmol/L Normal 98-107 [facility] Comment on above: Performed By: #### P HOS, MG, CMP, URIC ####[facility] [address] [place], [place] [address]Dr. Osmel Shelton CO2 [Moles/Vol] 25.7 mmol/L Normal 21.0-32.[address] [facility] Comment on above: Performed By: #### P HOS, MG, CMP, URIC ####[facility] [address] [place], [place] [address]Dr. Osmel Shelton Creatinine [Mass/Vol] 1.40 mg/dL Critically high 0.55-1.02 [facility] Comment on above: Performed By: #### P HOS, MG, CMP, URIC ####[facility] [address] [place], [place] [address]Dr. Osmel Shelton EGFR-AF KYRGYZ 45 mL/min/1.73m2 Critically low >=60 [facility] Comment on above: Performed By: #### P HOS, MG, CMP, URIC ####[facility] [address] [address]Dr. Osmel Shelton EGFR-NON AF KYRGYZ 37 mL/min/1.73m2 Critically low >=60 [facility] Comment on above: Performed By: #### P HOS, MG, CMP, URIC ####[facility] [address] [address]Dr. Osmel Shelton Globulin (S) [Mass/Vol] 4.2 g/dL Normal [facility] Comment on above: Performed By: #### P HOS, MG, CMP, URIC ####[facility] [address] [address]Dr. Osmel Shelton Glucose [Mass/Vol] 101 mg/dL Normal 74-106 [facility] Comment on above: Performed By: #### P HOS, MG, CMP, URIC ####[facility] [address] [address]Dr. Osmel Shelton Potassium [Moles/Vol] 4.2 mmol/L Normal 3.5-5.1 [facility] Comment on above: Performed By: #### P HOS, MG, CMP, URIC ####[facility] [address] [address]Dr. Osmel Shelton Protein [Mass/Vol] 7.8 g/dL Normal 6.4-8.2 [facility] Comment on above: Performed By: #### P HOS, MG, CMP, URIC ####[facility] [address] [address]Dr. Osmel Shelton Sodium [Moles/Vol] 135 mmol/L Critically low 136-145 [facility] Comment on above: Performed By: #### P HOS, MG, CMP, URIC ####[facility] [address] [address]Dr. Osmel Shelton Urea nitrogen [Mass/Vol] 23.0 mg/dL Critically high 7.0-18.0 [facility] Comment on above: Performed By: #### P HOS, MG, CMP, URIC ####[facility] [address] [address]Dr. Osmel Shelton Urea nitrogen/Creatinine [Mass ratio] 16.4 mg/mg Normal [facility] Comment on above: Performed By: #### P HOS, MG, CMP, URIC ####[facility] [address] [address]Dr. Osmel Shelton UA RANDOMon 08-03-2022 Bilirubin Ql (U) Negative Normal NEGATIVE [facility] Comment on above: Performed By: #### U A #### [facility] [address] [place] [address] Dr. Osmel Shelton Clarity (U) CLEAR Normal CLEAR [facility] Comment on above: Performed By: #### U A #### [facility] [address] [place] [address] Dr. Osmel Shelton Color (U) LT. YELLOW Normal YELLOW [facility] Comment on above: Performed By: #### U A #### [facility] [address] [place] [address] Dr. Osmel Shelton Glucose Ql (U) Negative Normal NEGATIVE [facility] Comment on above: Performed By: #### U A #### [facility] [address] [place] [address] Dr. Osmel Shelton Hemoglobin Ql (U) Negative Normal NEGATIVE [facility] Comment on above: Performed By: #### U A #### [facility] [address] [place] [address] Dr. Osmel Shelton Ketones Ql (U) Negative Normal NEGATIVE [facility] Comment on above: Performed By: #### U A #### [facility] [address] [place] [address] Dr. Osmel Shelton LEUKOCYTES Negative Normal NEGATIVE [facility] Comment on above: Performed By: #### U A #### [facility] [address] [place] [address] Dr. Osmel Shelton Nitrite Ql (U) Negative Normal NEGATIVE [facility] Comment on above: Performed By: #### U A #### [facility] [address] [address] [address] Osmel Shelton pH (U) 5.5 [pH] Normal 5-9 [facility] Comment on above: Performed By: #### U A #### [facility] [address] [address] [address] Osmel Shelton SPEC GRAVITY <=1.005 Abnormal 1.005-<=1.02 5 [facility] Comment on above: Performed By: #### U A #### [facility] [address] [address] [address] Osmel Shelton UA PROTEIN Negative Normal NEGATIVE/ TRACE [facility] Comment on above: Performed By: #### U A #### [facility] [address] [place] [address] Dr. Osmel Shelton Urobilinogen Qn (U) 0.2 {Chuy'U}/dL Normal 0.2 - 1. 0 [facility] Comment on above: Performed By: #### U A #### [facility] [address] [place] [address] Dr. Osmel Shelton URIC ACID SERUMon 08-03-2022 Urate [Mass/Vol] 8.4 mg/dL Critically high 2.6-6.0 [facility] Comment on above: Performed By: #### P HOS, MG, CMP, URIC ####[facility] [address] [address]Dr. Osmel Shelton URINE T PROTEIN CREAT RATIOo n 08-03-2022 Protein (U) [Mass/Vol] 4.6 mg/dL Normal <=12.0 [facility] Comment on above: Performed By: #### U RTPCR #### [facility] [address] [place] [address] Dr. Osmel Shelton UR PROT CREAT RAT 0.[address] [facility] Comment on above: Performed By: #### U RTPCR #### [facility] [address] [place] [address] Dr. Osmel Shelton URINE CREAT 50.21 mg/dL Normal 20.00-300.00 [facility] Comment on above: Performed By: #### U RTPCR #### [facility] [address] [address] [address] Osmel Shelton VITAMIN D 25 OHon 08-03-2022 VIT D 25-OH 20.9 ng/mL Normal [facility] Comment on above: Performed By: #### V ITAD ####[facility] [address] [address]Dr. Osmel Shelton VIT D RANGES SEE BELOW Normal [facility] Comment on above: Result Comment: <20 ng/mL Vit D deficient 20 - <30 ng/mL Vit D insufficient 30 - 100 ng/mL Vit D sufficient >100 ng/mL Potential Toxicity Performed By: #### V ITAD ####[facility] [address] [place], [place] [address]Dr. Osmel Shelton CBC AUTO DIFFon 07-09-2022 BASO # 0.0 103/ul Normal 0.0-0.1 [facility] Comment on above: Performed By: #### C BC #### [facility] [address] [place] [address] Dr. Osmel Shelton Basophils/100 WBC (Bld) 0.5 % Normal 0.2-2.0 [facility] Comment on above: Performed By: #### C BC #### [facility] [address] [place] [address] Dr. Osmel Shelton EO # 0.2 103/ul Normal 0.0-0.7 [facility] Comment on above: Performed By: #### C BC #### [facility] [address] [place] [address] Dr. Osmel Shelton Eosinophils/100 WBC (Bld) 2.9 % Normal 0.9-7.0 [facility] Comment on above: Performed By: #### C BC #### [facility] [address] [place] [address] Dr. Osmel Shelton Erythrocyte distribution width (RBC) [Ratio] 14.3 % Normal 11.0-15.0 [facility] Comment on above: Performed By: #### C BC #### [facility] [address] [place] [address] Dr. Osmel Shelton Hematocrit (Bld) [Volume fraction] 34.4 % Critically low 36.0-48.0 [facility] Comment on above: Performed By: #### C BC #### [facility] [address] [place] [address] Dr. Osmel Shelton Hemoglobin (Bld) [Mass/Vol] 11.4 g/dL Critically low 12.0-16.0 [facility] Comment on above: Performed By: #### C BC #### [facility] [address] [place] [address] Dr. Osmel Shelton IG # 0.02 10e3/ul Normal 0.00-0.03 [facility] Comment on above: Performed By: #### C BC #### [facility] [address] [place] [address] Dr. Osmel Shelton IG % 0.4 % Normal 0.0-0.5 [facility] Comment on above: Performed By: #### C BC #### [facility] [address] [place] [address] Dr. Osmel Shelton LYMPH # 1.3 103/ul Normal 1.2-3.8 [facility] Comment on above: Performed By: #### C BC #### [facility] [address] [place] [address] Dr. Osmel Shelton Lymphocytes/100 WBC (Bld) 23.0 % Normal 20.5-60.0 [facility] Comment on above: Performed By: #### C BC #### [facility] [address] [place] [address] Dr. Osmel Shelton MANUAL DIFF REQ NO Normal [facility] Comment on above: Performed By: #### C BC #### [facility] [address] [place] [address] Dr. Osmel Shelton MCH (RBC) [Entitic mass] 29.8 pg Normal 26.7-34.0 [facility] Comment on above: Performed By: #### C BC #### [facility] [address] [place] [address] Dr. Osmel Shelton MCHC (RBC) [Mass/Vol] 33.1 g/dL Normal 29.9-35.2 [facility] Comment on above: Performed By: #### C BC #### [facility] [address] [place] [address] Dr. Osmel Shelton MCV (RBC) [Entitic vol] 89.8 fL Normal 81.0-99.0 [facility] Comment on above: Performed By: #### C BC #### [facility] [address] [place] [address] Dr. Osmel Shelton MONO # 0.6 103/ul Normal 0.3-0.8 [facility] Comment on above: Performed By: #### C BC #### [facility] [address] [place] [address] Dr. Osmel Shelton Monocytes/100 WBC (Bld) 11.0 % Normal 1.7-12.0 [facility] Comment on above: Performed By: #### C BC #### [facility] Laboratory [address] [place] [address] Dr. Osmel Shelton NEUT # 3.4 103/ul Normal 1.4-6.5 [facility] Comment on above: Performed By: #### C BC #### [facility] [address] [place] [address] Dr. Osmel Shelton Neutrophils/100 WBC (Bld) 62.2 % Normal 43.0-75.0 [facility] Comment on above: Performed By: #### C BC #### [facility] [address] [place] [address] Dr. Osmel Shelton Platelet mean volume (Bld) [Entitic vol] 9.4 fL Critically low 9.5-13.5 [facility] Comment on above: Performed By: #### C BC #### [facility] [address] [place] [address] Dr. Osmel Shelton PLT 327 103/ul Normal 150-450 [facility] Comment on above: Performed By: #### C BC #### [facility] [address] [place] [address] Dr. Osmel Shelton RBC 3.83 106/ul Critically low 4.20-5.40 [facility] Comment on above: Performed By: #### C BC #### [facility] [address] [address] [address] Osmel Shelton WBC 5.5 103/ul Normal 4.0-11.0 [facility] Comment on above: Performed By: #### C BC #### [facility] [address] [address] [address] Osmel Shelton PROF CHEM 8 (BAS METB)on Anion gap [Moles/Vol] 11.7 mmol/L Normal [facility] Comment on above: Performed By: #### B MP ####[facility] [address] [address]DrLissett Shelton Calcium [Mass/Vol] 8.8 mg/dL Normal 8.5-10.1 [facility] Comment on above: Performed By: #### B MP ####[facility] [address] [address]DrLissett Shelton Chloride [Moles/Vol] 99 mmol/L Normal 98-107 [facility] Comment on above: Performed By: #### B MP ####[facility] [address] [address]Dr. Osmel Shelton CO2 [Moles/Vol] 27.1 mmol/L Normal 21.0-32.0 [facility] Comment on above: Performed By: #### B MP ####[facility] [address] [address]DrLissett Shelton Creatinine [Mass/Vol] 1.38 mg/dL Critically high 0.55-1.02 [facility] Comment on above: Performed By: #### B MP ####[facility] [address] [address]DrLissett Shelton EGFR-AF KYRGYZ 46 mL/min/1.73m2 Critically low >=60 [facility] Comment on above: Performed By: #### B MP ####[facility] [address] [place], [place] [address]Dr. Osmel Shelton EGFR-NON AF KYRGYZ 38 mL/min/1.73m2 Critically low >=60 [facility] Comment on above: Performed By: #### B MP ####[facility] [address] [address]Dr. Osmel Shelton Glucose [Mass/Vol] 105 mg/dL Normal 74-106 [facility] Comment on above: Performed By: #### B MP ####[facility] [address] [place], [place] [address]Dr. Osmel Shelton Potassium [Moles/Vol] 4.8 mmol/L Normal 3.5-5.1 [facility] Comment on above: Performed By: #### B MP ####[facility] [address] [place], [place] [address]Dr. Osmel Shelton Sodium [Moles/Vol] 133 mmol/L Critically low 136-145 [facility] Comment on above: Performed By: #### B MP ####[facility] [address] [place], [place] [address]Dr. Osmel Shelton Urea nitrogen [Mass/Vol] 19.0 mg/dL Critically high 7.0-18.0 [facility] Comment on above: Performed By: #### B MP ####[facility] [address] [place], [place] [address]Dr. Moiramarcia Nikita Urea nitrogen/Creatinine [Mass ratio] 13.8 mg/mg Normal [facility] Comment on above: Performed By: #### B MP ####[facility] [address] [place], [place] [address]Dr. Osmel Nikita PULMONARY FUNCTION TESTon PULMONARY FUNCTION TEST PULMONARY [...] O2 indicated. Clinical correlation required. Normal [facility] US KIDNEYSon 04-15-2022 US KIDNEYS EXAMINATION: [...] by: TIMOTHY GUIDRY Date: 2022-04-15 16:21 Normal [facility] CT LUNG CANCER SCREENINGon 1 CT [...] TIMOTHY GUIDRY Date: 2022-01-19 14:40 Normal [facility] CBC AUTO DIFFon 01-05-2022 BASO # 0.1 103/ul Normal 0.0-0.1 [facility] Comment on above: Performed By: #### C BC #### [facility] [address] [place] [address] Dr. Osmel Shelton Basophils/100 WBC (Bld) 1.0 % Normal 0.2-2.0 [facility] Comment on above: Performed By: #### C BC #### [facility] [address] [place] [address] Dr. Osmel Shelton EO # 0.2 103/ul Normal 0.0-0.7 [facility] Comment on above: Performed By: #### C BC #### [facility] [address] [place] [address] Dr. Osmel Shelton Eosinophils/100 WBC (Bld) 3.6 % Normal 0.9-7.0 [facility] Comment on above: Performed By: #### C BC #### [facility] [address] [place] [address] Dr. Osmel Shelton Erythrocyte distribution width (RBC) [Ratio] 14.1 % Normal 11.0-15.0 [facility] Comment on above: Performed By: #### C BC #### [facility] [address] [place] [address] Dr. Osmel Shelton Hematocrit (Bld) [Volume fraction] 36.5 % Normal 36.0-48.0 [facility] Comment on above: Performed By: #### C BC #### [facility] [address] [place] [address] Dr. Osmel Shelton Hemoglobin (Bld) [Mass/Vol] 11.8 g/dL Critically low 12.0-16.0 [facility] Comment on above: Performed By: #### C BC #### [facility] [address] [place] [address] Dr. Osmel Shelton IG # 0.02 10e3/ul Normal 0.00-0.03 [facility] Comment on above: Performed By: #### C BC #### [facility] [address] [place] [address] Dr. Osmel Shelton IG % 0.3 % Normal 0.0-0.5 [facility] Comment on above: Performed By: #### C BC #### [facility] [address] [place] [address] Dr. Osmel Shelton LYMPH # 1.3 103/ul Normal 1.2-3.8 [facility] Comment on above: Performed By: #### C BC #### [facility] [address] [place] [address] Dr. Osmel Shelton Lymphocytes/100 WBC (Bld) 21.4 % Normal 20.5-60.0 [facility] Comment on above: Performed By: #### C BC #### [facility] [address] [place] [address] Dr. Osmel Shelton MANUAL DIFF REQ NO Normal [facility] Comment on above: Performed By: #### C BC #### [facility] [address] [place] [address] Dr. Osmel Shelton MCH (RBC) [Entitic mass] 29.3 pg Normal 26.7-34.0 [facility] Comment on above: Performed By: #### C BC #### [facility] [address] [place] [address] Dr. Osmel Shelton MCHC (RBC) [Mass/Vol] 32.3 g/dL Normal 29.9-35.2 [facility] Comment on above: Performed By: #### C BC #### [facility] [address] [place] [address] Dr. Osmel Shelton MCV (RBC) [Entitic vol] 90.6 fL Normal 81.0-99.0 [facility] Comment on above: Performed By: #### C BC #### [facility] [address] [place] [address] Dr. Osmel Shelton MONO # 0.7 103/ul Normal 0.3-0.8 [facility] Comment on above: Performed By: #### C BC #### [facility] [address] [address] [address] Osmel Shelton Monocytes/100 WBC (Bld) 11.2 % Normal 1.7-12.0 [facility] Comment on above: Performed By: #### C BC #### [facility] [address] [address] [address] Osmel Shelton NEUT # 3.7 103/ul Normal 1.4-6.5 [facility] Comment on above: Performed By: #### C BC #### [facility] [address] [place] [address] Dr. Osmel Shelton Neutrophils/100 WBC (Bld) 62.5 % Normal 43.0-75.0 [facility] Comment on above: Performed By: #### C BC #### [facility] [address] [place] [address] Dr. Osmel Shelton Platelet mean volume (Bld) [Entitic vol] 9.4 fL Critically low 9.5-13.5 [facility] Comment on above: Performed By: #### C BC #### [facility] [address] [place] [address] Dr. Osmel Shelton PLT 364 103/ul Normal 150-450 [facility] Comment on above: Performed By: #### C BC #### [facility] [address] [place] [address] Dr. Osmel Shelton RBC 4.03 106/ul Critically low 4.20-5.40 [facility] Comment on above: Performed By: #### C BC #### [facility] [address] [place] [address] Dr. Osmel Shelton WBC 5.9 103/ul Normal 4.0-11.0 [facility] Comment on above: Performed By: #### C BC #### [facility] [address] [place] [address] Dr. Osmel Shelton LIPID PROFILEon 10-10-2022 CHOL-HDL RATIO NORM SEE BELOW Normal [facility] Comment on above: Result Comment: 3.3 - 4.4 LOW RISK 4.4 - 7.1 AVERAGE RISK 7.1 - 11.0 MODERATE RISK >11.0 HIGH RISK Performed By: #### C MP, LIPID #### [facility] [address] [address] [address] Osmel Shelton Cholesterol [Mass/Vol] 149 mg/dL Normal <=200 [facility] Comment on above: Performed By: #### C MP, LIPID #### [facility] [address] [address] [address] Osmel Shelton Cholesterol in HDL [Mass/Vol] 75 mg/dL Critically high 40-60 [facility] Comment on above: Performed By: #### C MP, LIPID #### [facility] [address] [address] [address] Osmel Shelton Cholesterol in LDL [Mass/Vol] 60.4 mg/dL Normal [facility] Comment on above: Performed By: #### C MP, LIPID #### [facility] [address] [address] [address] Omsel Shelton Cholesterol.total/Chol esterol in HDL [Mass ratio] 2.0 {ratio} Normal [facility] Comment on above: Performed By: #### C MP, LIPID #### [facility] [address] [address] [address] Osmel Shelton HDL NORMAL > or = 60 mg/dl - LO W CARDIOVASCULAR RISK <40 mg/dl - HIGH CARDIOVASCULAR RISK Normal [facility] Comment on above: Performed By: #### C MP, LIPID #### [facility] [address] [address] [address] Osmel Shelton LDL CALC NORMAL SEE BELOW Normal [facility] Comment on above: Result Comment: <100 mg/dl OPTIMAL 100 - 129 mg/dl NEAR OR ABOVE OPTIMAL 130 - 159 mg/dl BORDERLINE HIGH 160 - 189 mg/dl HIGH >190 mg/dl VERY HIGH Performed By: #### C MP, LIPID #### [facility] [address] [address] [address] Osmel Shelton Triglyceride [Mass/Vol] 68 mg/dL Normal <=150 [facility] Comment on above: Performed By: #### C MP, LIPID #### [facility] [address] [place] [address] Dr. Osmel Shelton VLDL CALC 13.6 mg/dL Normal [facility] Comment on above: Performed By: #### C MP, LIPID #### [facility] [address] [place] [address] Dr. Osmel Shelton PROF 14(COMP METB)on 022 Albumin [Mass/Vol] 3.6 g/dL Normal 3.4-5.0 [facility] Comment on above: Performed By: #### C MP, LIPID #### [facility] [address] [place] [address] Dr. Osmel Shelton Albumin/Globulin [Mass ratio] 0.9 {ratio} Normal [facility] Comment on above: Performed By: #### C MP, LIPID #### [facility] [address] [place] [address] Dr. Osmel Shelton ALP [Catalytic activity/Vol] 152 U/L Critically high 46-116 [facility] Comment on above: Performed By: #### C MP, LIPID #### [facility] [address] [place] [address] Dr. Osmel Shelton ALT [Catalytic activity/Vol] 29 U/L Normal 14-59 [facility] Comment on above: Performed By: #### C MP, LIPID #### [facility] [address] [place] [address] Dr. Osmel Shelton Anion gap [Moles/Vol] 11.1 mmol/L Normal [facility] Comment on above: Performed By: #### C MP, LIPID #### [facility] [address] [place] [address] Dr. Osmel Shelton AST [Catalytic activity/Vol] 23 U/L Normal 15-37 [facility] Comment on above: Performed By: #### C MP, LIPID #### [facility] [address] [place] [address] Dr. Osmel Shelton Bilirubin [Mass/Vol] 0.3 mg/dL Normal 0.2-1.0 [facility] Comment on above: Performed By: #### C MP, LIPID #### [facility] [address] [place] [address] Dr. Osmel Shelton Calcium [Mass/Vol] 8.9 mg/dL Normal 8.5-10.1 [facility] Comment on above: Performed By: #### C MP, LIPID #### [facility] [address] [place] [address] Dr. Osmel Shelton Chloride [Moles/Vol] 96 mmol/L Critically low 98-107 [facility] Comment on above: Performed By: #### C MP, LIPID #### [facility] [address] [place] [address] Dr. Osmel Shelton CO2 [Moles/Vol] 28.2 mmol/L Normal 21.0-32.0 [facility] Comment on above: Performed By: #### C MP, LIPID #### [facility] [address] [place] [address] Dr. Osmel Shelton Creatinine [Mass/Vol] 1.46 mg/dL Critically high 0.55-1.02 [facility] Comment on above: Performed By: #### C MP, LIPID #### [facility] [address] [place] [address] Dr. Osmel Shelton EGFR-AF KYRGYZ 43 mL/min/1.73m2 Critically low >=60 [facility] Comment on above: Performed By: #### C MP, LIPID #### [facility] [address] [place] [address] Dr. Osmel Shelton EGFR-NON AF KYRGYZ 36 mL/min/1.73m2 Critically low >=60 [facility] Comment on above: Performed By: #### C MP, LIPID #### [facility] [address] [place] [address] Dr. Osmel Shelton Globulin (S) [Mass/Vol] 4.2 g/dL Normal [facility] Comment on above: Performed By: #### C MP, LIPID #### [facility] [address] [place] [address] Dr. Osmel Shelton Glucose [Mass/Vol] 95 mg/dL Normal 74-106 [facility] Comment on above: Performed By: #### C MP, LIPID #### [facility] [address] [place] [address] Dr. Osmel Shelton Potassium [Moles/Vol] 5.3 mmol/L Critically high 3.5-5.1 [facility] Comment on above: Performed By: #### C MP, LIPID #### [facility] [address] [place] [address] Dr. Osmel Shelton Protein [Mass/Vol] 7.8 g/dL Normal 6.4-8.2 [facility] Comment on above: Performed By: #### C MP, LIPID #### [facility] [address] [place] [address] Dr. Osmel Shelton Sodium [Moles/Vol] 130 mmol/L Critically low 136-145 [facility] Comment on above: Performed By: #### C MP, LIPID #### [facility] [address] [place] [address] Dr. Osmel Shelton Urea nitrogen [Mass/Vol] 22.0 mg/dL Critically high 7.0-18.0 [facility] Comment on above: Performed By: #### C MP, LIPID #### [facility] [address] [place] [address] Dr. Osmel Shelton Urea nitrogen/Creatinine [Mass ratio] 15.1 mg/mg Normal [facility] Comment on above: Performed By: #### C MP, LIPID #### [facility] [address] [place] [address] Dr. Osmel Shelton Vital Signs Date Time Vital Sign Value Performing Clinician Facility 11-13-2024 13:50-0400 Body mass index (BMI) [Ratio] 33.98 kg/m2 Nolvia Jimenez GREENHOUSE MANAGER Work Phone: [facility] 11-13-2024 13:50-0400 Body temperature 98.49 [degF] Nolvia Jimenez GREENHOUSE MANAGER Work Phone: [facility] 11-13-2024 13:50-0400 Body weight 87 kg Nolvia Jimenez GREENHOUSE MANAGER Work Phone: [facility] 11-13-2024 13:50-0400 Diastolic blood pressure 72 mm[Hg] Nolviabrown Hiholz GREENHOUSE MANAGER Work Phone: [facility] 11-13-2024 13:50-0400 Heart rate 73 /min Nolvia Sachahholz GREENHOUSE MANAGER Work Phone: [facility] 11-13-2024 13:50-0400 Respiratory rate 20 /min Nolvia Koltonholz GREENHOUSE MANAGER Work Phone: [facility] 11-13-2024 13:50-0400 SaO2% (BldA) [Mass fraction] 95 % Nolviabrown Hiholz GREENHOUSE MANAGER Work Phone: [facility] 11-13-2024 13:50-0400 Systolic blood pressure 110 mm[Hg] Nolvia Sachahholz GREENHOUSE MANAGER Work Phone: [facility] 11-01-2024 13:15-0400 Diastolic blood pressure 84 mm[Hg] Lisa Perez MD Work Phone: [facility] 11-01-2024 13:15-0400 Heart rate 65 /min Lisa Perez MD Work Phone: [facility] 11-01-2024 13:15-0400 Respiratory rate 16 /min Lisa Perez MD Work Phone: [facility] 11-01-2024 13:15-0400 SaO2% (BldA) [Mass fraction] 99 % Lisa Perez MD Work Phone: [facility] 11-01-2024 13:15-0400 Systolic blood pressure 122 mm[Hg] Lisa Perez MD Work Phone: [facility] 11-01-2024 10:50-0400 Body height 160.02 cm Lisa Perez MD Work Phone: [facility] 11-01-2024 10:50-0400 Body weight 88.45 kg Lisa Perez MD Work Phone: [facility] 10-10-2024 15:51-0400 Body mass index (BMI) [Ratio] 34.72 kg/m2 Nolviabrown Goncalveswadez GREENHOUSE MANAGER Work Phone: [facility] 10-10-2024 15:51-0400 Body temperature 98.49 [degF] Nolvia Aichholz GREENHOUSE MANAGER Work Phone: [facility] 10-10-2024 15:51-0400 Body weight 88.91 kg Nolvia Sachahholz GREENHOUSE MANAGER Work Phone: [facility] 10-10-2024 15:51-0400 Diastolic blood pressure 88 mm[Hg] Nolvia Sachahholz GREENHOUSE MANAGER Work Phone: [facility] 10-10-2024 15:51-0400 Heart rate 86 /min Nolvia Aichholz GREENHOUSE MANAGER Work Phone: [facility] 10-10-2024 15:51-0400 Respiratory rate 26 /min Nolvia Sachahholz GREENHOUSE MANAGER Work Phone: [facility] 10-10-2024 15:51-0400 SaO2% (BldA) [Mass fraction] 95 % Nolvia Sachakaroholz GREENHOUSE MANAGER Work Phone: [facility] 10-10-2024 15:51-0400 Systolic blood pressure 120 mm[Hg] Nolvia Sachakaroholz GREENHOUSE MANAGER Work Phone: [facility] 09-06-2024 15:24-0400 Body mass index (BMI) [Ratio] 35.46 kg/m2 Nolvia Sachahholz GREENHOUSE MANAGER Work Phone: [facility] 09-06-2024 15:24-0400 Body temperature 98.6 [degF] Nolvia Sachahholz GREENHOUSE MANAGER Work Phone: [facility] 09-06-2024 15:24-0400 Body weight 90.81 kg Nolvia Aichholz GREENHOUSE MANAGER Work Phone: [facility] 09-06-2024 15:24-0400 Diastolic blood pressure 98 mm[Hg] Nolvia Jimenez GREENHOUSE MANAGER Work Phone: [facility] 09-06-2024 15:24-0400 Heart rate 98 /min Nolvia Jimenez GREENHOUSE MANAGER Work Phone: [facility] 09-06-2024 15:24-0400 Respiratory rate 20 /min Nolvia Jimenez GREENHOUSE MANAGER Work Phone: [facility] 09-06-2024 15:24-0400 SaO2% (BldA) [Mass fraction] 95 % Nolvia Jimenez GREENHOUSE MANAGER Work Phone: [facility] 09-06-2024 15:24-0400 Systolic blood pressure 128 mm[Hg] Nolvia Jimenez GREENHOUSE MANAGER Work Phone: [facility] 07-25-2024 13:37-0400 Body height 160.02 cm [facility] 07-25-2024 13:37-0400 Body mass index (BMI) [Ratio] 35.1 kg/m2 [facility] 07-25-2024 13:37-0400 Body temperature 97.8 [degF] [facility] 07-25-2024 13:37-0400 Body weight 89.86 kg [facility] 07-25-2024 13:37-0400 Diastolic blood pressure 56 mm[Hg] [facility] 07-25-2024 13:37-0400 Heart rate 93 /min [facility] 07-25-2024 13:37-0400 Respiratory rate 20 /min [facility] 07-25-2024 13:37-0400 SaO2% (BldA) [Mass fraction] 93 % [facility] 07-25-2024 13:37-0400 Systolic blood pressure 108 mm[Hg] [facility] 06-08-2024 14:43-0400 Body mass index (BMI) [Ratio] 35.39 kg/m2 Nolvia Jimenez GREENHOUSE MANAGER Work Phone: [facility] 06-08-2024 14:43-0400 Body temperature 97.81 [degF] Nolvia Hiholz GREENHOUSE MANAGER Work Phone: [facility] 06-08-2024 14:43-0400 Body weight 90.63 kg Nolviabrown Hiholz GREENHOUSE MANAGER Work Phone: [facility] 06-08-2024 14:43-0400 Diastolic blood pressure 80 mm[Hg] Nolvia Sachahholz GREENHOUSE MANAGER Work Phone: [facility] 06-08-2024 14:43-0400 Heart rate 72 /min Nolvia Koltonholz GREENHOUSE MANAGER Work Phone: [facility] 06-08-2024 14:43-0400 Respiratory rate 19 /min Nolvia Koltonholz GREENHOUSE MANAGER Work Phone: [facility] 06-08-2024 14:43-0400 SaO2% (BldA) [Mass fraction] 98 % Nolvia Koltonholz GREENHOUSE MANAGER Work Phone: [facility] 06-08-2024 14:43-0400 Systolic blood pressure 144 mm[Hg] Nolvia Koltonholz GREENHOUSE MANAGER Work Phone: [facility] 04-26-2024 15:02-0500 Body height 160 cm Shanda Estebanpatrick GREENHOUSE MANAGER Work Phone: [facility] 04-26-2024 15:02-0500 Body mass index (BMI) [Ratio] 35.96 kg/m2 Shanda Cheng GREENHOUSE MANAGER Work Phone: [facility] 04-26-2024 15:02-0500 Body temperature 97.2 [degF] Shanda Cheng GREENHOUSE MANAGER Work Phone: [facility] 04-26-2024 15:02-0500 Body weight 92.08 kg Shanda Cheng GREENHOUSE MANAGER Work Phone: [facility] 04-26-2024 15:02-0500 Diastolic blood pressure 84 mm[Hg] Shanda Cheng GREENHOUSE MANAGER Work Phone: [facility] 04-26-2024 15:02-0500 Heart rate 72 /min Shanda Cheng GREENHOUSE MANAGER Work Phone: [facility] 04-26-2024 15:02-0500 Respiratory rate 18 /min Shanda Cheng GREENHOUSE MANAGER Work Phone: [facility] 04-26-2024 15:02-0500 SaO2% (BldA) [Mass fraction] 94 % Shanda Cheng GREENHOUSE MANAGER Work Phone: [facility] 04-26-2024 15:02-0500 Systolic blood pressure 180 mm[Hg] Shanda Cheng GREENHOUSE MANAGER Work Phone: [facility] 04-18-2024 13:58-0500 Body height 160 cm Shanda Cheng GREENHOUSE MANAGER Work Phone: [facility] 04-18-2024 13:58-0500 Body mass index (BMI) [Ratio] 35.8 kg/m2 Shanda Cheng GREENHOUSE MANAGER Work Phone: [facility] 04-18-2024 13:58-0500 Body temperature 96.21 [degF] Shanda Cheng GREENHOUSE MANAGER Work Phone: [facility] 04-18-2024 13:58-0500 Body weight 91.67 kg Shanda Cheng GREENHOUSE MANAGER Work Phone: [facility] 04-18-2024 13:58-0500 Diastolic blood pressure 82 mm[Hg] Shanda Cheng GREENHOUSE MANAGER Work Phone: [facility] 04-18-2024 13:58-0500 Heart rate 96 /min Shanda Cheng GREENHOUSE MANAGER Work Phone: [facility] 04-18-2024 13:58-0500 Respiratory rate 18 /min Shanda Cheng GREENHOUSE MANAGER Work Phone: [facility] 04-18-2024 13:58-0500 SaO2% (BldA) [Mass fraction] 97 % Shanda Cheng GREENHOUSE MANAGER Work Phone: [facility] 04-18-2024 13:58-0500 Systolic blood pressure 138 mm[Hg] Shanda Cheng GREENHOUSE MANAGER Work Phone: [facility] 01-17-2024 13:25-0400 Body mass index (BMI) [Ratio] 34.76 kg/m2 Shanda Cheng GREENHOUSE MANAGER Work Phone: [facility] 01-17-2024 13:25-0400 Body temperature 97.81 [degF] Shanda Cheng GREENHOUSE MANAGER Work Phone: [facility] 01-17-2024 13:25-0400 Body weight 89 kg Shanda Cheng GREENHOUSE MANAGER Work Phone: [facility] 01-17-2024 13:25-0400 Diastolic blood pressure 72 mm[Hg] Shanda Cheng GREENHOUSE MANAGER Work Phone: [facility] 01-17-2024 13:25-0400 Heart rate 84 /min Shanda Cheng GREENHOUSE MANAGER Work Phone: [facility] 01-17-2024 13:25-0400 SaO2% (BldA) [Mass fraction] 98 % Shanda Cheng GREENHOUSE MANAGER Work Phone: [facility] 01-17-2024 13:25-0400 Systolic blood pressure 130 mm[Hg] Shanda Cheng GREENHOUSE MANAGER Work Phone: [facility] 12-20-2023 15:00-0400 Diastolic blood pressure 75 mm[Hg] MD Jackelyn Diggs Work Phone: [facility] 12-20-2023 15:00-0400 Systolic blood pressure 136 mm[Hg] MD Jackelyn Diggs Work Phone: [facility] 12-17-2023 14:48-0400 Heart rate 81 /min MD Jackelyn Diggs Work Phone: [facility] 11-16-2023 15:26-0400 Body height 154.94 cm [facility] 11-16-2023 15:26-0400 Body mass index (BMI) [Ratio] 38.4 kg/m2 [facility] 11-16-2023 15:26-0400 Body temperature 96.1 [degF] [facility] 11-16-2023 15:26-0400 Body weight 92.24 kg [facility] 11-16-2023 15:26-0400 Diastolic blood pressure 79 mm[Hg] [facility] 11-16-2023 15:26-0400 Respiratory rate 20 /min [facility] 11-16-2023 15:26-0400 Systolic blood pressure 171 mm[Hg] [facility] 03-09-2023 11:20-0500 Body height 154.94 cm Jackelyn [employer] Other Located Within [facility] [employer] Other 03-09-2023 11:20-0500 Body mass index (BMI) [Ratio] 38.62 kg/m2 Jackelyn [employer] Other Located Within [facility] [employer] Other 03-09-2023 11:20-0500 Body temperature 96.7 [degF] Jackelyn [employer] Other [employer] Other 03-09-2023 11:20-0500 Body weight 92.72 kg Aziz [employer] Other [employer] Other 03-09-2023 11:20-0500 Diastolic blood pressure 60 mm[Hg] Aziz [employer] Other [employer] Other 03-09-2023 11:20-0500 Respiratory rate 18 /min Jalbumiz [employer] Other [employer] Other 03-09-2023 11:20-0500 SaO2% (BldA) [Mass fraction] 97 % Aziz Bakhous Other [employer] Other 03-09-2023 11:20-0500 Systolic blood pressure 100 mm[Hg] Aziz Bakhous Other [employer] Other 04-07-2022 15:20-0500 Body height 154.94 cm Aziz Bakhous Other [employer] Other 04-07-2022 15:20-0500 Body mass index (BMI) [Ratio] 39.67 kg/m2 Azamina Bakhous Other [employer] Other 04-07-2022 15:20-0500 Body temperature 97.7 [degF] Aziz Bakhous Other [employer] Other 04-07-2022 15:20-0500 Body weight 95.26 kg Aziz Bakhous Other [employer] Other 04-07-2022 15:20-0500 Diastolic blood pressure 90 mm[Hg] Aziz Bakhous Other [employer] Other 04-07-2022 15:20-0500 Respiratory rate 18 /min Aziz Bakhous Other [employer] Other 04-07-2022 15:20-0500 SaO2% (BldA) [Mass fraction] 97 % Aziz Bakhous Other [employer] Other 04-07-2022 15:20-0500 Systolic blood pressure 140 mm[Hg] Aziz Bakhous Other Located Within [facility] [employer] Other Encounters Encounter Date Encounter Type Care Provider Facility Start: 11-20-2024 End: 11-20-2024 ambulatory ZACK [facility] Start: 11-15-2024 End: 11-15-2024 Clinisync Result Encounter Nolvia Tony GREENHOUSE MANAGER Work Phone: [facility] Unsolicited Start: 11-15-2024 End: 11-15-2024 Clinisync Result Encounter Nolvia Tony GREENHOUSE MANAGER Work Phone: [facility] External Department Unsolicited Start: 11-13-2024 End: 11-13-2024 Bamboo flowsheet Nolvia Mihaiz GREENHOUSE MANAGER Work Phone: [facility] Start: 11-13-2024 End: 11-13-2024 Bamboo flowsheet Nolvia Mihaiz GREENHOUSE MANAGER Work Phone: [facility] Start: 11-13-2024 End: 11-13-2024 Telephone encounter Nolvia Tony GREENHOUSE MANAGER Work Phone: [facility] Start: 11-13-2024 End: 11-13-2024 ambulatory NOLVIA SACHAKaroRADHA Not Available Start: 11-13-2024 End: 11-13-2024 Office outpatient visit 25 minutes Nolvia Tony GREENHOUSE MANAGER Work Phone: [facility] Comment on above: Epigastric pain (Gemma humble Dx); Morbid (severe) obesity due to excess calories ([facility]-HCC); Type 2 diabetes mellitus without complication, without long-term current use of insulin (HCC); Essential (primary) hypertension ; Coronary artery disease involving lime coronary artery of lime heart without angina pectoris ; Positive colorectal cancer screening using Cologuard test; Gastroesophageal reflux disease without esophagitis Start: 11-08-2024 End: 11-08-2024 Clinisync Result Encounter Generic External Data Provider [facility] External Department Unsolicited Start: 11-08-2024 End: 11-08-2024 Clinisync Result Encounter Generic External Data Provider [facility] External Department Unsolicited Start: 11-01-2024 End: 11-01-2024 ambulatory Imad Asaad Facility:[facility] Start: 11-01-2024 Non-patient / Non-visit Imad Asaad Viktor[facility] Work Phone: Start: 10-23-2024 End: 11-03-2024 Clinisync Result Encounter Generic External Data Provider [facility] External Department Unsolicited Start: 10-23-2024 End: 11-03-2024 Clinisync Result Encounter Generic External Data Provider [facility] External Department Unsolicited Start: 10-18-2024 End: 10-18-2024 Refill Nolvia Jimenez NP Work Phone: [facility] Comment on above: Bug bite, initial en counter (Primary Dx) Start: 10-12-2024 End: 10-12-2024 Refill Trace Kelly MD Work Phone: [facility] Comment on above: Other hyperlipidemia Start: 10-11-2024 End: 10-11-2024 Orders Only Nolvia Jimenez NP Work Phone: [facility] Comment on above: Other constipation ( Primary Dx); Positive colorectal cancer screening using Cologuard test Start: 10-10-2024 End: 10-10-2024 Office outpatient visit 25 minutes Nolvia Jimenez GREENHOUSE MANAGER Work Phone: [facility] Comment on [...] Start: 10-10-2024 End: 10-11-2024 Refill Nolvia Jimenez GREENHOUSE MANAGER Work Phone: [facility] Comment on above: Other constipation ( [...] Start: 09-22-2024 End: 09-22-2024 ambulatory ZACK [facility] Start: 09-06-2024 End: 09-06-2024 Transitional care manage srvc 7 day discharge Nolvia Jimenez GREENHOUSE MANAGER Work Phone: [facility] Comment on above: Pneumonia of right l ower lobe due to infectious organism (Primary Dx); Acute hypoxic respiratory failure (CMS/HCC); Coronary artery disease involving lime coronary artery of lime heart without angina pectoris (CMS/HCC); Essential (primary) hypertension ; Chronic kidney disease, stage 3b (HCC) (CMS/HCC); Morbid (severe) obesity due to excess calories (CMS/HCC) Start: 09-06-2024 End: 09-06-2024 ambulatory NOLVIA JIMENEZ Not Available Start: 09-04-2024 Evaluation and management of inpatient [facility] Start: 09-03-2024 Evaluation and management of inpatient [facility] Start: 09-03-2024 End: 09-05-2024 Evaluation and management of inpatient GRISELDA HARVEY [facility] Start: 09-03-2024 End: 09-05-2024 Clinisync Result Encounter Generic External Data Provider [facility] External Department Unsolicited Start: 09-03-2024 End: 09-05-2024 Clinisync Result Encounter Generic External Data Provider [facility] External Department Unsolicited Start: 08-02-2024 End: 08-02-2024 Clinisync Result Encounter Nolvia Jimenez GREENHOUSE MANAGER Work Phone: [facility] External Department Unsolicited Start: 08-02-2024 End: 08-02-2024 Clinisync Result Encounter Nolviabrown Jimenez GREENHOUSE MANAGER Work Phone: [facility] External Department Unsolicited Start: 08-01-2024 End: 08-01-2024 ambulatory AB [facility] Start: 07-27-2024 End: 07-28-2024 External Result Encounter Nolvia Jimenez GREENHOUSE MANAGER Work Phone: [facility] External Department Unsolicited Start: 07-27-2024 End: 07-28-2024 External Result Encounter Nolvia Jimenez GREENHOUSE MANAGER Work Phone: [facility] External Department Unsolicited Start: 07-26-2024 End: 07-26-2024 Clinisync Result Encounter Nolvia Jimenez GREENHOUSE MANAGER Work Phone: [facility] External Department Unsolicited Start: 07-26-2024 End: 07-26-2024 Clinisync Result Encounter Nolvia Jimenez GREENHOUSE MANAGER Work Phone: [facility] External Department Unsolicited Start: 07-26-2024 End: 07-26-2024 Departed Referred Nolvia Jimenez Work Phone: [facility] Start: 07-26-2024 End: 07-26-2024 Orders Only Nolvia Mihaiz GREENHOUSE MANAGER Work Phone: [facility] Comment on above: Leukocytosis, unspec ified type (Primary Dx) Leukocytosis, unspec ified type (Primary Dx); CRP elevated Start: 07-25-2024 End: 07-25-2024 Clinisync Result Encounter Generic External Data Provider [facility] External Department Unsolicited Start: 07-25-2024 End: 07-25-2024 Clinisync Result Encounter Generic External Data Provider [facility] External Department Unsolicited Start: 07-25-2024 End: 07-25-2024 ambulatory [facility] Work Phone: Start: 07-25-2024 End: 07-25-2024 Patient encounter procedure [facility] Work Phone: Start: 07-17-2024 End: 07-17-2024 Clinisync Result Encounter Generic External Data Provider [facility] External Department Unsolicited Start: 07-17-2024 End: 07-17-2024 Clinisync Result Encounter Generic External Data Provider [facility] External Department Unsolicited Start: 07-17-2024 Non-patient / Non-visit [facility] Work Phone: Start: 07-03-2024 End: 07-03-2024 ambulatory [facility] Start: 06-26-2024 End: 06-26-2024 Clinisync Result Encounter Generic External Data Provider [facility] External Department Unsolicited Start: 06-26-2024 End: 06-26-2024 Clinisync Result Encounter Generic External Data Provider [facility] External Department Unsolicited Start: 06-15-2024 End: 06-15-2024 ambulatory [facility] Start: 06-08-2024 End: 06-08-2024 Office outpatient visit 25 minutes Nolvia Jimenez GREENHOUSE MANAGER Work Phone: [facility] Comment on above: Essential (primary) hypertension (CMS/HCC) (Primary Dx); Morbid (severe) obesity due to excess calories (CMS/HCC); Body mass index (BMI) 35.0-35.9, adult; Chronic obstructive pulmonary disease, unspecified (CMS/HCC); Chronic kidney disease, stage 3b (HCC) (CMS/HCC); Coronary artery disease involving lime coronary artery of lime heart without angina pectoris (CMS/HCC); Hypomagnesemia; Mixed hyperlipidemia (CMS/HCC); Chronic low back pain, unspecified back pain laterality, unspecified whether sciatica present Start: 06-08-2024 End: 06-08-2024 ambulatory NOLVIA JIMENEZ Not Available Start: 06-08-2024 End: 06-08-2024 Bamboo flowsheet Nolvia Tony GREENHOUSE MANAGER Work Phone: [facility] Start: 06-08-2024 End: 06-08-2024 Bamboo flowsheet Nolvia Tony GREENHOUSE MANAGER Work Phone: [facility] Start: 05-23-2024 End: 05-23-2024 ambulatory [facility] Start: 05-02-2024 Non-patient / Non-visit [facility] Work Phone: Start: 04-26-2024 End: 04-26-2024 Transitional care manage srvc 7 day discharge Shanda Manzanok GREENHOUSE MANAGER Work Phone: [facility] Comment on above: Essential hypertensi on (CMS/HCC) (Primary Dx) Start: 04-26-2024 End: 04-26-2024 ambulatory SHANDA CHENG Not Available Start: 04-26-2024 End: 04-26-2024 Bamboo flowsheet Shanda Cheng GREENHOUSE MANAGER Work Phone: [facility] Start: 04-26-2024 End: 04-26-2024 Bamboo flowsheet Shanda Cheng GREENHOUSE MANAGER Work Phone: [facility] Start: 04-18-2024 End: 04-18-2024 Bamboo flowsheet Shanda Cheng GREENHOUSE MANAGER Work Phone: [facility] Start: 04-18-2024 End: 04-18-2024 Bamboo flowsheet Shanda Cheng GREENHOUSE MANAGER Work Phone: [facility] Start: 04-18-2024 End: 04-18-2024 Office outpatient visit 10 minutes Shanda Estebanpatrick GREENHOUSE MANAGER Work Phone: [facility] Comment on above: Irregular heartbeat (Primary Dx) Start: 04-18-2024 End: 04-18-2024 ambulatory SHANDA CHENG Not Available Start: 04-03-2024 End: 04-03-2024 Refill Shanda Cheng GREENHOUSE MANAGER Work Phone: [facility] Comment on [...] 01-17-2024 End: 01-17-2024 Bamboo flowsheet Shanda Cheng GREENHOUSE MANAGER Work Phone: [facility] Start: 01-17-2024 End: 01-17-2024 Bamboo flowsheet Shanda Manzanok GREENHOUSE MANAGER Work Phone: [facility] Start: 01-17-2024 End: 01-18-2024 Refill Trace Kelly MD Work Phone: [facility] Comment on above: 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) Start: 01-17-2024 End: 01-17-2024 Assay of hemosiderin, quant Shanda Cheng GREENHOUSE MANAGER Work Phone: [facility] Work Phone: Start: 01-17-2024 End: 01-17-2024 Patient encounter procedure Shanda Cheng GREENHOUSE MANAGER Work Phone: [facility] Comment on above: Routine general medi korin examination at health care facility (Primary Dx) Start: 01-04-2024 End: 01-04-2024 ambulatory [facility] Start: 12-20-2023 End: 12-20-2023 Discharged Recurring MD Jackelyn Diggs Work Phone: [facility] Work Phone: Start: 12-20-2023 End: 12-20-2023 ambulatory MD Jackelyn Diggs Work Phone: [facility] Work Phone: Start: 11-23-2023 End: 11-23-2023 Clinisync Result Encounter Generic External Data Provider [facility] External Department Unsolicited Start: 11-23-2023 End: 11-23-2023 Clinisync Result Encounter Generic External Data Provider [facility] External Department Unsolicited Start: 11-23-2023 Non-patient / Non-visit MD Rowan Diggs Work Phone: [facility] Work Phone: Start: 11-16-2023 End: 11-16-2023 ambulatory [facility] Work Phone: Start: 11-16-2023 End: 11-16-2023 Patient encounter procedure [facility] Roger Work Phone: Start: 11-08-2023 Non-patient / Non-visit [facility] Work Phone: Start: 03-09-2023 End: 03-09-2023 ambulatory Jackelyn Diggs Other Located Within [facility] [employer] Other Start: 03-09-2023 Office outpatient vi sit 25 minutes Jackelyn Diggs [facility] Start: 08-03-2022 End: 08-04-2022 ambulatory JACKELYN DIGGS Facility:[facility] Start: 07-15-2022 Encounter for other preprocedural examination DR ABBY AZEVEDO [facility] Start: 07-09-2022 End: 07-10-[address] ABBY AZEVEDO Facility:[facility] Start: 07-09-2022 End: 07-10-2022 Encounter for other preprocedural examination DR ABBY AZEVEDO Facility:[facility] Start: 07-09-2022 ambulatory LUIS SAMSA . Facility :[facility] Start: 05-20-2022 End: 05-21-2022 ambulatory LUIS SAMSA . Facility:[facility] Start: 04-27-2022 End: 07-08-2022 ambulatory LUISJUSTUS SCHUMACHER . Facility:[facility] Start: 04-15-2022 End: 04-16-2022 ambulatory AZAMINA BAKHOUS Facility:[facility] Start: 04-07-2022 End: 04-07-2022 ambulatory Azamina Branhous Other [employer] Other Start: 04-07-2022 Office outpatient ne w 30 minutes Azamina Wagners [facility] Start: 01-23-2022 End: 01-24-2022 ambulatory LUISJUSTUS SCHUMACHER . Facility:[facility] Start: 01-19-2022 End: 01-20-2022 ambulatory LUISJUSTUS SCHUMACHER . Facility:[facility] Start: 01-05-2022 End: 01-06-[address] ABRAM CRAFT Facility:[facility] Procedures Date Procedure Procedure Detail Performing Clinician Start: 11-15-2024 ALL CBC WITH AUTO DIFF Nolvia Jimenez GREENHOUSE MANAGER Work Phone: Start: 11-15-2024 TBH MICROALB CREAT R ATIO RANDOM Nolvia Jimenez GREENHOUSE MANAGER Work Phone: Start: 11-08-2024 ALL BASIC METABOLIC PANEL Generic External Data Provider Start: 10-23-2024 ITP Generic Ex ternal Data Provider Start: 10-10-2024 XR CHEST 2V Nolvia bowers GREENHOUSE MANAGER Work Phone: Start: 10-10-2024 XR ABDOMEN 1V Nolvia luis GREENHOUSE MANAGER Work Phone: Start: 10-10-2024 ALL BASIC METABOLIC [...] 08-02-2024 ALL CBC WITH AUTO DIFF Nolvia Tony GREENHOUSE MANAGER Work Phone: Start: 07-27-2024 Culture bacterial quanttative colony count urine Nolvia Tony GREENHOUSE MANAGER Work Phone: Start: 07-26-2024 ALL CBC WITH AUTO DIFF Nolvia Tony GREENHOUSE MANAGER Work Phone: Start: 07-25-2024 ALL CBC WITH [...] Well ness (AWV) Medicare Annual Wellness (AWV) [facility] Start: 01-16-2025 Pneumococcal Vaccine : 65+ Years (1 of 2 - PCV) Pneumococcal Vaccine: 65+ Years (1 of 2 - PCV) [facility] Comment on above: Postponed from 05/25 (Patient Refused) Postponed from 05/25 (Patient Refused) Start: 12-25-2024 End: 12-25-2024 Patient encounter procedure 12/25/2024 2:40 PM EDT Office Visit [facility] [address] [place] [id number] Nolvia Jimenez NP [address] [place] [id number] [facility] Start: 12-04-2024 Hemoglobin A1c measurement Diabetes: Hemoglobin A1C [facility] Start: 11-27-2024 Influenza vaccination [facility] Start: 11-13-2024 End: 11-13-2025 Amylase [Enzymatic activity/volume] in Serum or Plasma Amylase Lab Routine Epigastric pain Expected: 11/13/2024 (Approximate), Expires: 11/13/2025 [facility] Comment on above: Expected: 11/13/2024 (Approximate), Expires: 11/13/2025 Start: 11-13-2024 End: 11-13-2025 Basic metabolic 1998 panel - Serum or Plasma Basic metabolic panel Lab Routine Type 2 diabetes mellitus without complication, without long-term current use of insulin (HCC) Essential (primary) hypertension Epigastric pain Expected: 11/13/2024 (Approximate), Expires: 11/13/2025 [facility] Comment on above: Expected: 11/13/2024 (Approximate), Expires: 11/13/2025 Start: 11-13-2024 End: 11-13-2025 CBC W Auto Differential panel - Blood CBC and differential Lab Routine Epigastric pain Expected: 11/13/2024 (Approximate), Expires: 11/13/2025 [facility] Comment on above: Expected: 11/13/2024 (Approximate), Expires: 11/13/2025 Start: 11-13-2024 End: 11-13-2025 Hepatic function 2000 panel - Serum or Plasma Hepatic function panel Lab Routine Epigastric pain Expected: 11/13/2024 (Approximate), Expires: 11/13/2025 [facility] Comment on above: Expected: 11/13/2024 (Approximate), Expires: 11/13/2025 Start: 11-13-2024 End: 11-13-2025 Lipase [Enzymatic activity/volume] in Serum or Plasma Lipase Lab Routine Epigastric pain Expected: 11/13/2024 (Approximate), Expires: 11/13/2025 [facility] Work Phone: Comment on above: Expected: [...] Epigastric pain Expected: 11/13/2024 (Approximate), Expires: 11/13/2025 [facility] Comment on above: Expected: 11/13/2024 (Approximate), Expires: 11/13/2025 Start: 11-13-2024 End: 11-13-2024 Patient encounter procedure 11/13/2024 1:40 PM EDT Office Visit [facility] [address] [place] [address] Nolvia Jimenez, NIXON [address] [place] [address] [facility] Start: 11-01-2024 [facility] Start: 10-18-2024 End: 10-18-2024 Patient encounter procedure 10/18/2024 2:20 PM EDT Office Visit [facility] [address] [place] [address] Nolvia Jimenez, GREENHOUSE MANAGER [address] [place] [address] [facility] Start: 10-10-2024 End: 10-10-2024 Patient encounter procedure 10/10/2024 3:40 PM EDT Office Visit [facility] [address] [place] [address] Nolvia Jimenez, GREENHOUSE MANAGER [address] [place] [phone] [facility] Start: 09-05-2024 End: 09-05-2024 Patient encounter procedure [facility] Start: 08-03-2024 Influenza vaccination Influenza Vacc ine (#1) [facility] Comment on above: Postponed from 11/27 (Patient Refused) Start: 08-02-2024 End: 07-26-2025 C reactive protein [Mass/volume] in Serum or Plasma C-reactive protein Lab Routine CRP elevated Expected: 08/02/2024 (Approximate), Expires: 07/26/2025 [facility] Comment on above: Expected: 08/02/2024 (Approximate), Expires: 07/26/2025 Start: 08-02-2024 End: 07-26-2025 CBC W Auto Differential panel - Blood CBC and differential Lab Routine Leukocytosis, unspecified type Expected: 08/02/2024 (Approximate), Expires: 07/26/2025 [facility] Work Phone: Comment on above: Expected: 08/02/2024 (Approximate), Expires: 07/26/2025 Start: 07-27-2024 Bacteria identified in Urine by Culture [facility] Start: 07-27-2024 Urine culture [facility] Start: 07-26-2024 End: 07-26-2025 Bacteria identified in Urine by Culture Urine culture (clean catch) Microbiology Routine Leukocytosis, unspecified type Expected: 07/26/2024 (Approximate), Expires: 07/26/2025 [facility] Comment on above: Expected: 07/26/2024 (Approximate), Expires: 07/26/2025 Start: 07-26-2024 End: 07-26-2025 C reactive protein [Mass/volume] in Serum or Plasma C-reactive protein Lab Routine Leukocytosis, unspecified type Expected: 07/26/2024 (Approximate), Expires: 07/26/2025 [facility] Comment on above: Expected: 07/26/2024 (Approximate), Expires: 07/26/2025 Start: 07-26-2024 End: 07-26-2025 CBC W Auto Differential panel - Blood CBC and differential Lab Routine Leukocytosis, unspecified type Expected: 07/26/2024 (Approximate), Expires: 07/26/2025 [facility] Work Phone: Comment on above: Expected: 07/26/2024 (Approximate), Expires: 07/26/2025 Start: 07-26-2024 End: 07-26-2025 Comprehensive metabolic 2000 panel - Serum or Plasma Comprehensive metabolic panel Lab Routine Leukocytosis, unspecified type Expected: 07/26/2024 (Approximate), Expires: 07/26/2025 [facility] Comment on above: Expected: 07/26/2024 (Approximate), Expires: 07/26/2025 Start: 07-26-2024 End: 07-26-2025 Erythrocyte sedimentation rate Sedimentation rate, automated Lab Routine Leukocytosis, unspecified type Expected: 07/26/2024 (Approximate), Expires: 07/26/2025 [facility] Comment on above: Expected: 07/26/2024 (Approximate), Expires: 07/26/2025 Start: 07-26-2024 End: 07-26-2025 Peripheral blood smear Peripheral blood smear Pathology and Cytology Routine Leukocytosis, unspecified type Expected: 07/26/2024 (Approximate), Expires: 07/26/2025 [facility] Comment on above: Expected: 07/26/2024 (Approximate), Expires: 07/26/2025 Start: 07-26-2024 End: 07-26-2025 Urinalysis complete panel - Urine Urinalysis with reflex microscopic (clean catch) Lab Routine Leukocytosis, unspecified type Expected: 07/26/2024 (Approximate), Expires: 07/26/2025 [facility] Comment on above: Expected: 07/26/2024 (Approximate), Expires: 07/26/2025 Start: 06-08-2024 End: 06-08-2024 Patient encounter procedure 06/08/2024 2:40 PM EDT Office Visit [facility] [address] [place] [address] Nolvia Jimenez NP [address] [place] [address] Coronary artery disease involving lime coronary artery of lime heart without angina pectoris (CMS/HCC) (Primary Dx); Morbid (severe) obesity due to excess calories (CMS/HCC); Essential (primary) hypertension (CMS/HCC); Body mass index (BMI) 35.0-35.9, adult; Chronic obstructive pulmonary disease, unspecified (CMS/HCC); Chronic kidney disease, stage 3b (HCC) (CMS/HCC); Hypomagnesemia; Mixed hyperlipidemia (CMS/HCC) [facility] Comment on above: Coronary artery dise ase involving lime coronary artery of lime heart without angina pectoris (CMS/HCC) (Primary Dx); Morbid (severe) obesity due to excess calories (CMS/HCC); Essential (primary) hypertension (CMS/HCC); Body mass index (BMI) 35.0-35.9, adult; Chronic obstructive pulmonary disease, unspecified (CMS/HCC); Chronic kidney disease, stage 3b (HCC) (CMS/HCC); Hypomagnesemia; Mixed hyperlipidemia (CMS/HCC) Start: 06-08-2024 End: 06-08-2024 Patient encounter procedure 06/08/2024 1:30 PM EDT Office Visit [facility] [address] [place] [phone] Shanda Cheng NP [address] [place] [phone] [facility] Start: 04-26-2024 End: 04-26-2024 Patient encounter procedure 04/26/2024 3:30 PM EST Office Visit [facility] [address] [place] [address] Shanda Cheng NP [address] [place] [phone] [facility] Comment on above: Arrived Start: 04-18-2024 End: 04-18-2024 Patient encounter procedure [facility] Comment on above: Arrived Start: 04-12-2024 Screening for malign ant neoplasm of colon Colorectal Cancer Screening [facility] Comment on above: Postponed from 05/25 (Patient Refused) Start: 03-13-2024 Influenza vaccination Influenza Vacc ine (#1) [facility] Comment on above: Postponed from 11/27 (Patient Refused) Start: 01-17-2024 End: 01-17-2024 Patient encounter procedure 01/17/2024 1:00 PM EDT Office Visit [facility] [address] [place] [address] Shanda Cheng, NIXON [address] [place] [address] [facility] Start: 01-15-2024 Medicare Annual Well ness (AWV) Medicare Annual Wellness (AWV) [facility] Start: 11-28-2023 Influenza vaccination Influenza Vacc ine (#1) [facility] Start: 01-10-2019 Urine screening for protein Diabetes: Urine Protein Screening [facility] Start: 1963 Glaucoma screening Diabetes: R etinopathy Screening [facility] Start: 1959 Pneumococcal Vaccine : 65+ Years (1 of 2 - PCV) Pneumococcal Vaccine: 65+ Years (1 of 2 - PCV) [facility] Start: 1953 Screening for malign ant neoplasm of colon [facility] Start: 1953 Screening for malign ant neoplasm of lung Lung Cancer Screening Shared Decision Making [facility] BLOOD CULTURE 1 BLOOD CULTURE 1 Lab Routine 09/03/2024 4:58 AM EDT [facility] BLOOD CULTURE 2 BLOOD CULTURE 2 Lab Routine 09/03/2024 5:52 AM EDT [facility] Patient Education Colon Strictur e (DC) [facility] Diverticulosis Discharge Instructions [facility] Hemorrhoids Discharge Instructions Know your Meds [facility] Colon Polypectomy Discharge Instructions [facility] Work Phone: Renal function 1999 panel - Serum or Plasma [facility] Renal function 1999 panel - Serum or Plasma [facility] Payers Date Payer Category Payer Medicare AN[employer]M MEDICARE ADVANTAGE ANTH MEDICARE ADVANTAGE [id number] 2020-Present [address] [place] [address] [id number] 2020 Medicare (Managed Care) [employer]LE[employer] TERRELLMILAGRO ADVANTAGE Member Subscriber Plan / Payer (Effective 2020-Present) Name: Chiara Eduardo Relation to Subscriber: Self Name: Chiara Eduardo Payer ID: Not on file Group ID: [id number] Type: Not on file Address: [address] [id number] 1961 Medicare [id number] 1961 Self-pay 1955 Unknown [id number] 2.16.840.1.886971.3.579. 2.593 1953 Unknown [id number] 2.16.840.1.186884.3.579. 2.593 1953 Unknown [id number] 2.16.840.1.373545.3.579. 2.593 1953 Unknown [id number] 2.16.840.1.587798.3.579. 2.593 1953 Unknown [id number] 2.16.840.1.925510.3.579. 2.593 1953 Unknown [id number] 2.16.840.1.021472.3.579. 2.593 1953 Unknown [id number] 2.16.840.1.580276.3.579. 2.593 1953 Unknown [id number] 2.16.840.1.944421.3.579. 2.593 1953 Unknown [id number] 2.16.840.1.980613.3.579. 2.1259 1953 Unknown [id number] 2.16.840.1.518379.3.579. 2.1259 1953 Unknown [id number] 2.16.840.1.393749.3.579. 2.1258 1953 Unknown [id number] 2.16.840.1.562167.3.579. 2.1259 1953 Unknown [id number] 2.16.840.1.029436.3.579. 2.9 1953 Unknown [id number] 2.16.840.1.430223.3.579. 2.9 1953 Unknown [id number] 2.16.840.1.138303.3.579. 2.1259 Unknown [id number] 2.16.840.1.600595.3.579. 2.593 Unknown [id number] 2.16.840.1.632005.3.579. 2.531 Unknown [id number] 2.16.840.1.596799.3.579. 2.531 Unknown [id number] 2.16.840.1.099172.3.579. 2.531 Social History Date Type Detail Facility Unknown if ever smoked [facility] Start: 04-12-2023 End: 06-08-2024 Sex Assigned At [facility] Start: 11-16-2023 End: 04-18-2024 Tobacco smoking status DEIS Ex-smoker (finding) [facility] Start: 1955 Sex Assigned At Female [facility] Start: 03-29-1985 End: 03-29-2015 History of tobacco use Current smoker [facility] Start: 03-29-1985 End: 03-29-2015 History of tobacco use Cigarette Smoker [facility] Start: 04-12-2023 End: 06-08-2024 Cigarettes smoked [...] to any clubs or organizations such as mormonism groups, unions, fraternal [...] Start: 07-25-2024 End: 07-28-2024 Sex Female (finding) [facility] Goals Date Patient Goal Desired Activity /State Clinical Notes 04-07-2022 to 11-20-2024 Telephone Encounter - Nolvia Jimenez NP - 11/13/2024 2:27 PM EDTTelephone Encounter - Nolvia Jimenez NP - 11/13/2024 2:27 PM Juliano Jimenez NP - 11/13/2024 2:26 PM EDTPatient Instructions Note Date & Type Note Facility 11-20-2024 Note SUBJECTIVE Reason for Visit: Chiara Eduardo is a 69 y.o. year old female patient being seen for follow-up visit. HPI: Chiara Eduardo is a 69 y.o. year old female with significant medical history of coronary artery disease, prior stent placement, COPD, History of acute inferior wall FL, HT, HLP, CKD, obesity 11/20/2024 office visit: Patient is seen and evaluated in the office today. Denies chest pain, lightheadedness or dizziness. Endorses stable lower extremity edema. On exam trace lower extremity edema. She reports this is being improved since prior visit. She continues on Lasix 40 mg daily. Endorses daily palpitations. She states her palpitations were much better controlled on metoprolol to tartrate; despite her taking metoprolol succinate twice daily. Of note she was started on spironolactone back in August of this year (2024) and creatinine subsequently increased to 2 and she was taken off. 09/22/2024 office visit: Patient seen evaluated in the office today. Currently using 3 to 4 L nasal cannula. She reports that her SOB is slightly worse than her usual baseline. She reports she can walk about 15 feet before needing to take a break. Otherwise, she denies chest pain, palpitations, lightheadedness or dizziness. On exam she has +1-2 LE edema. 08/01/2024 office visit (Dr. Azevedo): Doing well; no new symptoms. No chest pain. Shortness of breath is stable if not better. She did stop the Farxiga; her labs were slightly abnormal. She has been following up with her primary care provider. Medical History[1] Surgical History[2] Problem List[3] family [...] not heard. Diastolic Murmur: not heard. Extremities: Trace lower extremity edema. Peripheral Pulses: Pulses: full and equal in all extremities except if noted. Abdomen: Inspection and Palpation: non distended or tender and soft. Musculoskeletal: Inspection: no joint tenderness or swelling. Neurologic: Gait: normal gait. Psychiatric: Mental Status: alert and normal affect. Skin: Inspection and Palpation: warm and dry. Allergies: Allergies[5] Outpatient Medications: Current Outpatient Medications Medication Instructions albuterol 90 mcg/actuation inhaler 2 puffs, Every 4 hours PRN aspirin 81 mg, Daily atorvastatin (LIPITOR) 80 mg, oral, Daily zdxdtsjszr-lvghfegu-zmjgctnkdo (Breztri Aerosphere) 160-9-4.8 mcg/actuation HFA aerosol inhaler 160 mcg, Daily cholecalciferol (VITAMIN D-3) 2,000 Units, Daily cyclobenzaprine (FLEXERIL) 10 mg, 3 times daily PRN dapagliflozin propanediol (FARXIGA) 10 mg, oral, Daily Dupixent Syringe 300 mg, Every 14 days furosemide (LASIX) 20 mg, oral, Daily ipratropium-albuteroL (Duo-Neb) 0.5-2.5 mg/3 mL nebulizer solution 3 mL, 4 times daily isosorbide mononitrate ER (IMDUR) 60 mg, oral, Once Daily, Do not crush or chew. magnesium 200 mg tablet 1 tablet, Daily metoprolol succinate XL (TOPROL-XL) 50 mg, oral, 2 times daily, Do not crush or chew. nitroglycerin (NITROSTAT) 0.4 mg, sublingual, Every 5 min PRN olmesartan (BENICAR) 40 mg, oral, Once Daily omeprazole (PRILOSEC) 20 mg, Daily before breakfast predniSONE (DELTASONE) 10 mg, Daily spironolactone (ALDACTONE) 25 mg, oral, Daily Recent Labs: Admission on [...] 09/03/2024 368 QTC CALCULATION(BAZETT) 09/03/2024 450 P Hartley 09/03/2024 70 R-Hartley 09/03/2024 42 T Wave Hartley 09/03/2024 51 Auto WBC 09/03/2024 19.92 (H) RBC 09/03/2024 3.95 Hemoglobin 09/03/2024 12.3 Hematocrit 09/03/2024 38.3 MCV 09/03/2024 97.0 MCH 09/03/2024 31.1 MCHC 09/03/2024 32.1 RDW 09/03/2024 13.8 Neutrophils % 09/03/2024 93.3 (more content not included)... [facility] 11-13-2024 Telephone encounter Note Please call up to GI in [facility], see if we can schedule an appt for epigastric pain, [place] May need EGD They saw her recently for colonoscopy [place] [facility] 11-13-2024 Miscellaneous Notes Please call up to GI in [facility], see if we can schedule an appt for epigastric pain, [place] May need EGD They saw her recently for colonoscopy [place] documented in this encounter [facility] 11-13-2024 History of Presen t illness [...] nodules SIADH (syndrome of inappropriate ADH production) ([facility]) Stroke ([facility]) Past Surgical History: Procedure Laterality Date CARDIAC [...] Addressed This Visit Coronary artery disease involving lime coronary artery of lime heart without angina pectoris (Chronic) Takes asa, [...] months Associated Problem(s): Coronary artery disease involving lime coronary artery of lime heart without angina pectoris Takes asa, statin, [...] Morbid (severe) obesity due to excess calories ([facility]) Discussed with patient their BMI (actual, verses recommended). We have also discussed lifestyle modifications: attempts to perform physical activity as chronic conditions allow, also to monitor dietary intake: increasing protein/fruits/veggies and lowering carb intake (unless contraindicated). Limit sodas, juices, and sugary drinks. documented in this encounter [facility] 11-13-2024 Instructions Nolvia Jimenez NP - 11/13/2024 1:40 PM EDT Stop omeprazole, trial pantoprazole 40mg daily Check labs Will call up to GI doctor to see if can get appt documented in this encounter [facility] 11-13-2024 Evaluation note Diagnosis Stage 3a chronic kidney disease ([facility])- Primary Other hyperlipidemia Coronary artery disease involving lime coronary artery of lime heart without angina pectoris Irregular heartbeat- Primary Unspecified cardiac dysrhythmia Essential (primary) hypertension- Primary Unspecified essential hypertension Morbid (severe) obesity due to excess calories ([facility]) Body mass index (BMI) 35.0-35.9, adult Chronic obstructive pulmonary disease, unspecified (HCC) Chronic kidney disease, stage 3b ([facility]) Coronary artery disease involving lime coronary artery of lime heart without angina pectoris Hypomagnesemia Disorders of magnesium metabolism Mixed hyperlipidemia Mixed hyperlipidemia Chronic low back pain, unspecified back pain laterality, unspecified whether sciatica present Pneumonia of right lower lobe due to infectious organism- Primary Acute hypoxic respiratory failure (HCC) Coronary artery disease involving lime coronary artery of lime heart without angina pectoris Essential (primary) hypertension Unspecified essential hypertension Chronic kidney disease, stage 3b ([facility]) Morbid (severe) obesity due to excess calories ([facility]) Essential (primary) hypertension- Primary Unspecified essential hypertension Morbid (severe) obesity due to excess calories ([facility]-HCC) Other hyperlipidemia Type 2 diabetes mellitus without complications (HCC) Emphysema, unspecified (HCC) Chronic obstructive pulmonary disease with acute exacerbation (HCC) Other constipation Heart failure, unspecified HF chronicity, unspecified heart failure type ([facility]) Epigastric pain- Primary Abdominal pain, epigastric Morbid (severe) obesity due to excess calories ([facility]) Type 2 diabetes mellitus without complication, without long-term current use of insulin (HCC) Essential (primary) hypertension Unspecified essential hypertension Coronary artery disease involving lime coronary artery of lime heart without angina pectoris Positive colorectal cancer screening using Cologuard test Gastroesophageal reflux disease without esophagitis Esophageal reflux documented in this [id number] Telephone encounter Note* Telephone Encounter - Nolvia [...] steroid cream if not better contact [id number] Miscellaneous Notes* Telephone Encounter - Nolvia Jimenez NP - [...] not better contact office documented in this encounter[facility] [id number] Evaluation note* Diagnosis Stage 3a chronic kidney disease (CMS-HCC)- Primary Other hyperlipidemia Coronary artery disease involving lime coronary artery of lime heart without angina pectoris Irregular heartbeat- Primary Unspecified cardiac dysrhythmia Essential (primary) hypertension- Primary Unspecified essential hypertension Morbid (severe) obesity due to excess calories (CMS-HCC) Body mass index (BMI) 35.0-35.9, adult Chronic obstructive pulmonary disease, unspecified (HCC) Chronic kidney disease, stage 3b (CMS-HCC) Coronary artery disease involving lime coronary artery of lime heart without angina pectoris Hypomagnesemia Disorders of magnesium metabolism Mixed hyperlipidemia Mixed hyperlipidemia Chronic low back pain, unspecified back pain laterality, unspecified whether sciatica present Pneumonia of right lower lobe due to infectious organism- Primary Acute hypoxic respiratory failure (HCC) Coronary artery disease involving lime coronary artery of lime heart without angina pectoris Essential (primary) hypertension Unspecified essential hypertension Chronic kidney disease, stage 3b (CMS-HCC) Morbid (severe) obesity due to excess calories ([facility]) Essential (primary) hypertension- Primary Unspecified essential hypertension Morbid (severe) obesity due to excess calories ([facility]) Other hyperlipidemia Type 2 diabetes mellitus without complications (HCC) Emphysema, unspecified (HCC) Chronic obstructive pulmonary disease with acute exacerbation (HCC) Other constipation Heart failure, unspecified HF chronicity, unspecified heart failure type (HCC) Other hyperlipidemia documented in this [facility] [id number] Evaluation note* Diagnosis Stage 3a chronic kidney disease (CMS-HCC)- Primary Other hyperlipidemia Coronary artery disease involving lime coronary artery of lime heart without angina pectoris Irregular heartbeat- Primary Unspecified cardiac dysrhythmia Essential (primary) hypertension- Primary Unspecified essential hypertension Morbid (severe) obesity due to excess calories ([facility]) Body mass index (BMI) 35.0-35.9, adult Chronic obstructive pulmonary disease, unspecified (HCC) Chronic kidney disease, stage 3b ([facility]) Coronary artery disease involving lime coronary artery of lime heart without angina pectoris Hypomagnesemia Disorders of magnesium metabolism Mixed hyperlipidemia Mixed hyperlipidemia Chronic low back pain, unspecified back pain laterality, unspecified whether sciatica present Pneumonia of right lower lobe due to infectious organism- Primary Acute hypoxic respiratory failure (HCC) Coronary artery disease involving lime coronary artery of lime heart without angina pectoris Essential (primary) hypertension [...] Other constipation- Primary documented in this [facility] [id number] Evaluation note* Diagnosis Stage 3a chronic kidney disease (CMS-HCC)- Primary Other hyperlipidemia Coronary artery disease involving lime coronary artery of lime heart without angina pectoris Irregular heartbeat- Primary Unspecified cardiac dysrhythmia Essential (primary) hypertension- Primary Unspecified essential hypertension Morbid (severe) obesity due to excess calories (CMS-HCC) Body mass index (BMI) 35.0-35.9, adult Chronic obstructive pulmonary disease, unspecified (HCC) Chronic kidney disease, stage 3b (CMS-HCC) Coronary artery disease involving lime coronary artery of lime heart without angina pectoris Hypomagnesemia Disorders of magnesium metabolism Mixed hyperlipidemia Mixed hyperlipidemia Chronic low back pain, unspecified back pain laterality, unspecified whether sciatica present Pneumonia of right lower lobe due to infectious organism- Primary Acute hypoxic respiratory failure (HCC) Coronary artery disease involving lime coronary artery of lime heart without angina pectoris Essential (primary) hypertension [...] using Cologuard test documented in [facility] [id number] History of Present illness Narrative* Nolvia Jimenez NP - 10/10/2024 5:43 PM EDTAssociated Problem(s): Heart failure (HCC) I did contact [facility] cardiology office updated on vital signs, weight and exam They will message cessation systems outreach specialist to see about diuretic Check cxr * [...] nodules SIADH (syndrome of inappropriate ADH production) ([facility]) Stroke ([facility]) Past Surgical History: Procedure Laterality Date CARDIAC [...] Morbid (severe) obesity due to excess calories ([facility]) - Primary Discussed with patient their [...] xray Heart failure (HCC) I did contact [facility] cardiology office updated on vital signs, weight and exam They will message cessation systems outreach specialist to see about diuretic Check cxr Other Visit Diagnoses Emphysema, unspecified (HCC) * Nolvia Jimenez NP - 10/10/2024 6:53 AM EDTAssociated Problem(s): Type 2 diabetes mellitus without complications (HCC) HTN, HLD * Nolvia Jimenez NP - 10/10/2024 6:49 AM EDTAssociated Problem(s): Morbid (severe) obesity due to excess calories ([facility]) Discussed with patient their BMI (actual, verses recommended). We have also discussed lifestyle modifications: attempts to perform physical activity as chronic conditions allow, also to monitor dietary intake: increasing protein/fruits/veggies and lowering carb intake (unless contraindicated). Limit sodas, juices, and sugary drinks. documented in this [facility]07-15-2025 Instructions* Patient Instructions* Nolvia Jimenez NP - 10/10/2024 3:40 PM EDT Check xray: abd, and chest xray I will call [facility] Cardiology about shortness of breath, possibly do something different with water pills If worsening go to Er documented in this [facility]07-15-2025 Evaluation note* Diagnosis Stage 3a chronic kidney disease ([facility])- Primary Other hyperlipidemia Coronary artery disease involving lime coronary artery of lime heart without angina pectoris Irregular heartbeat- Primary Unspecified cardiac dysrhythmia Essential (primary) hypertension- Primary Unspecified essential hypertension Morbid (severe) obesity due to excess calories ([facility]) Body mass index (BMI) 35.0-35.9, adult Chronic obstructive pulmonary disease, unspecified (HCC) Chronic kidney disease, stage 3b ([facility]) Coronary artery disease involving lime coronary artery of lime heart without angina pectoris Hypomagnesemia Disorders of magnesium metabolism Mixed hyperlipidemia Mixed hyperlipidemia Chronic low back pain, unspecified back pain laterality, unspecified whether sciatica present Pneumonia of right lower lobe due to infectious organism- Primary Acute hypoxic respiratory failure (HCC) Coronary artery disease involving lime coronary artery of lime heart without angina pectoris Essential (primary) hypertension [...] HF chronicity, unspecified heart failure type (HCC) documented in this [facility] [id number] NoteSUBJECTIVE Reason for Visit: Chiara Eduardo is a 69 y.o. year old female patient being seen for follow-up hospital visit, NSTEMI. HPI: Chiara Eduardo is a 69 y.o. year old female with significant medical history coronary artery disease, prior stent placement, COPD, History of acute inferior wall FL, HT, HLP, CKD, obesity Recent hospital course [...] felt to be related to type II [place]. Of note patient had cardiac cath in [...] Daily atorvastatin (LIPITOR) 80 mg, oral, Daily wfphrqzjmb-bypyidjm-hvxssazzra (Breztri Aerosphere) 160-9-4.8 mcg/actuation HFA aerosol inhaler [...] Atrial Rate 09/03/2024 90 [place] Interval 09/03/2024 (more content not included)...[facility]06-27-2025 NotePatient is here today for a follow up. Patient states she is doing ok. Review of Systems Constitutional: Negative.[facility]06-11-2025 History of Present illness Narrative* Nolvia Jimenez, NIXON - 09/06/2024 6:44 PM EDT Associated Problem(s): Morbid (severe) obesity due to excess calories ([facility]) Discussed with patient their BMI (actual, verses recommended). We have also discussed lifestyle modifications: attempts to perform physical activity as chronic conditions allow, also to monitor dietary intake: increasing protein/fruits/veggies and lowering carb intake (unless contraindicated). Limit sodas, juices, and sugary drinks. 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 apt 09/22 3:[address] appt 09/19 [...] HPI: Currently on 3L Pt has a stamp redemption clerk appt on 09/12 Building Superintendent apt 09/22 3:[address] appt 09/19 [...] Oral, Daily azithromycin (ZITHROMAX) 500 mg, Daily Dexkygq-Knnigssrlrg-Tyelrpmgmx (Breztri Aerosphere) 160-9-4.8 MCG/ACT aerosol 160 mcg, [...] Addressed This Visit Coronary artery disease involving lime coronary artery of lime heart without angina pectoris (CMS/HCC) (Chronic) Reviewed cardiology notes from [facility] Did not feel elevated trop was related to [place] Morbid (severe) obesity due to excess calories [...] with pulmonology next week documented in this [facility]06-11-2025 Instructions* Patient Instructions* Nolvia Jimenez NP - 09/06/2024 3:00 PM EDT No med dose changes Purse lipped breathing as well documented in this [facility]06-11-2025 Evaluation note* Diagnosis Stage 3a chronic kidney disease (HCC) (CMS/HCC)- Primary Other hyperlipidemia Coronary artery disease involving lime coronary artery of lime heart without angina pectoris (CMS/HCC) Irregular heartbeat- Primary Unspecified cardiac dysrhythmia Essential (primary) hypertension- Primary Unspecified essential hypertension Morbid (severe) obesity due to excess calories (CMS/HCC) Body mass index (BMI) 35.0-35.9, adult Chronic obstructive pulmonary disease, unspecified Chronic kidney disease, stage 3b (HCC) (CMS/HCC) Coronary artery disease involving lime coronary artery of lime heart without angina pectoris ([facility]) Hypomagnesemia Disorders of magnesium metabolism Mixed hyperlipidemia Mixed hyperlipidemia Chronic low back pain, unspecified back pain laterality, unspecified whether sciatica present Pneumonia of right lower lobe due to infectious organism- Primary Acute hypoxic respiratory failure ([facility]) Coronary artery disease involving lime coronary artery of lime heart without angina pectoris ([facility]) Essential (primary) hypertension Unspecified essential hypertension Chronic kidney disease, stage 3b (HCC) ([facility]) Morbid (severe) obesity due to excess calories ([facility]) documented [id number] NoteHospital Medicine Discharge Summary Final Discharge Diagnosis: 1. Acute hypoxemic respiratory failure secondary to COPD exacerbation as well as right lower lobe pneumonia 2. Drop in EF to 44% compared to stress test in 2022 reported normal ejection fraction 3. Elevated troponins likely type II [place] Admission Diagnosis: NSTEMI (non-ST elevated myocardial infarction) ([facility]) [I21.4] Hospital course: Chiara Eduardo is a 69 y.o. female with a history of coronary artery disease, prior stent placement, COPD, History of acute inferior wall [place], HT, HLP, CKD, obesity presented with shortness [...] felt to be related to type II [place]. Of note patient had cardiac cath in [...] 09/22/2024 3:20 PM Zack Luu CNP [facility] Your medication list START taking [...] 160-9-4.8 mcg/actuation HFA aerosol inhaler Generic drug: ziuvbyrwvo-mpxsylbj-hgmeapbled cholecalciferol 50 MCG (1999 [place]) tablet Commonly known as: Vitamin D-3 [...] Medications These medications were sent to [facility] - [place], [place] - [address], [facility] [address] azithromycin 500 mg tablet cefpodoxime 200 mg [...] 133* 134* POTASSIUM mmol/ (more content not included)...[facility]06-10-2025 Note09/05/24 1018 Home Oxygen Therapy Evaluation Pulse Oximetry on room air at Rest 93 Pulse Ox on room air while walking 85 Pulse Ox on O2 with nasal cannula while walking 92 Patient Qualification for home oxygen Qualifies No oxygen required at rest 3 lpm required to keep spo2 > 90%[facility]06-10-2025 NotePhysical Therapy Physical Therapy Evaluation Patient Name: [...] Chief Complaint Patient is direct admitted from [facility] with shortness of breath. History of Present Illness Chiara Eduardo is an 69 y.o. female who came from home with shortness of breath. Patient has history of COPD, quit smoking 2017, on Lasix 20 mg every other day, started having worsening shortness of breath, and acute on chronic abdominal pain last night, she presented to [facility], found to have right lower lobe pneumonia, with increasing troponin to 78.9, lactic of 3.2, patient was started on heparin drip, antibiotics, and was sent to [facility] for further workup. At time of arrival around 5 PM, patient was lying in bed, on nonrebreather, satting 100%, complaining of mild lower abdominal pain, no chest pain, cough, palpitation, or any other related symptoms. PT Diagnosis: weakness, impaiired functional mobility. Patient Active Problem List Diagnosis Bladder prolapse, female, acquired Chronic GERD COPD (chronic obstructive pulmonary disease) (CMS/HCC) Coronary artery disease involving lime coronary artery of lime heart without angina pectoris Diuretic-induced hypokalemia Essential hypertension Former smoker Health care maintenance History of acute inferior wall FL Lower back pain Mixed hyperlipidemia Severe obesity (BMI 35.0-39.9) with comorbidity (CMS/HCC) Shortness of breath Chest pain Arrhythmia Anemia Hypomagnesemia Hyponatremia Non-sustained ventricular tachycardia (CMS/HCC) History of tobacco use Other fdc (current) 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 PVC (premature ventricular contraction) [...] Coronary artery disease Coronary artery disease involving lime coronary artery of lime heart without angina pectoris 12/28/2016 Essential hypertension [...] [place]: Independent with ADLs and functional transfers Prior [...] Sitting Balance Static Sittin (more content not included)...[facility] 09-04-2024 Note09/04/24 1706 Admission Assessment Questions Verify [...] it is.) Does the patient have a case briefer assigned to them through their insurance? No Living Arrangement (Current/Prior to Hospitalization) Private residence Does the patient have history of HHC or SNF? Yes (Is active with a HHC service called [facility] this is through insurance [place] for renal care.) Assistive Device Cane;Other (Comment) [...] link and activate MyChart? MyChart already active [facility]06-09-2025 NoteSpiritual Care Note Patient name: Chiara Eduardo Age: 69 y.o. Room: Critical access [id number]- 09/04/24 1710 Clinical Encounter Type Visited With Patient Type of Visit Advance Directives Last Visit Date 09/04/24 Referral From Nurse Patient Spiritual Care Encounters Spiritual Care Assessment Hopeful;Coping with diagnoses (Pt seemed to be coping with situation. Pt completed ADV DIR's naming as agent and three daughters as alternates.) Pastoral Intervention Advance directives;Emotional support;Spiritual support (Mountain Bike Guide assisted pt with completing ADV DIR. Copies made, original & copies returned to pt, copy placed in pt chart.) Response AppreciativeUnKet[facility]06-09-2025 Note Occupational Therapy Occupational Therapy [...] pulmonary disease) (CMS/HCC) Coronary artery disease involving lime coronary artery of lime heart without angina pectoris Diuretic-induced hypokalemia Essential hypertension Former smoker Health care maintenance History of acute inferior wall FL Lower back pain Mixed hyperlipidemia Severe obesity (BMI 35.0-39.9) with comorbidity (CMS/HCC) Shortness of breath Chest pain Arrhythmia Anemia Hypomagnesemia Hyponatremia Non-sustained ventricular tachycardia (CMS/HCC) History of tobacco use 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 PVC (premature ventricular contraction) Multiple pulmonary nodules Irregular heartbeat Stage 3a chronic kidney disease ([facility]) Body mass index (BMI) 35.0-35.9, adult Angina pectoris, unstable ([facility]) CRP elevated Elevated WBC count NSTEMI (non-ST elevated myocardial infarction) ([facility]) Pneumonia Acute hypoxic respiratory failure ([facility]) Elevated troponin Past Medical History: Diagnosis Date Abnormal ECG Chronic GERD 12/28/2016 Chronic kidney disease COPD (chronic obstructive pulmonary disease) ([facility]) Coronary artery disease Coronary artery disease involving lime coronary artery of lime heart without angina pectoris 12/28/2016 Essential hypertension [...] With: Spouse Home Adaptive Equipment: Cane, Rollator ([place], [facility]) Home Layout: Multi-level, Bed/bath upstairs (tri level [...] Eating meals?: None (Independent) Total Score OT [facility]: 21 Assessment/Plan OT Assessment OT Impairments: [...] OT Plan: Skilled OT (more content not included)...[facility]06-09-2025 NoteLikely type II FL, supply/demand mismatch EKG shows sinus rhythm with PVCs Echo pendingUnKettering Health [facility]06-09-2025 NoteSecondary to right lower lobe pneumonia likely component of CHF Echocardiogram pending Continue current antibiotics with Rocephin and Zithromax Lasix switched to 40 mg daily instead of every other day 20 mg Continue DuoNeb as needed Sputum culture has few gram-positive cocci in pairs Influenza A/B negative as well as COVID-19. Mycoplasma PCRUnKettering Health – Soin Medical Center06-09-2025 NotePatient at home on oral prednisone 10 mg daily Continue Dulera and Incruse Ellipta DuoNeb as neededUnKettering Health – Soin Medical Center06-09-2025 NoteHospital Medicine Daily Progress Note - 09/04/2024 12:26 PM; [facility]: [id number] Admission: 09/03/2024 4:20 PM; Length of stay: 1 days THE HOSPITALIST TEAM PREFERS TO USE [employer] FOR NON-URGENT COMMUNICATION 7AM-7PM. IF I DO NOT RESPOND WITHIN 20 MINUTES OR URGENT MATTERS, PLEASE CALL THROUGH THE CREATIVE/ART DIRECTOR. FROM 7PM-7AM, PLEASE PAGE [phone](COVR). Code Status: Full Code Barriers to Discharge: [...] Mycoplasma PCR Elevated troponin Likely type II FL, supply/demand mismatch EKG shows sinus rhythm with [...] from last 7 days Lab Units 09/04/24 04109/03/24 1709 SODIUM mmol/L 133* 134* POTASSIUM mmol/L [...] (pending PT/OT evals) Signed Rhea Manning MD [facility] Medicine 09/04/2024 12:26 PMUnKettering Health – Soin Medical Center06-09-2025 Note- Patient was requiring nonrebreather upon arrival to [facility] - has been switched to high flow nasal cannula - Patient was on Lasix 20 mg every other day - switching to 40 mg daily, monitor I's and O's and daily weight - Continue with DuoNeb as needed No associated orders from this encounter found during lookback period of 72 hours.[facility]06-09-2025 Note- Patient was requiring nonrebreather upon arrival to [facility] - has been switched to high flow nasal cannula -Chest x-ray at [facility] showed right lower lobe pneumonia - 09/04/2024 x-ray done at [facility] was consistent with the previously mentioned findings [...] encounter found during lookback period of 72 hours.[facility]06-09-2025 Note- Currently on Breztri at home, not on home oxygen as of now - Patient is a former smoker, there is no need for smoking cessation counseling at this time No associated orders from this encounter found during lookback period of 72 hours.[facility]06-09-2025 NoteCoronary artery disease is unchanged. Continue current [...] encounter found during lookback period of 72 hours.[facility]06-09-2025 NoteAdult Nutrition Assessment: Name: Chiara Eduardo Date: 1955 Date of Visit: 09/04/24 Admission Dx: NSTEMI (non-ST elevated myocardial infarction) ([facility]) [I21.4] Reason for assessment: high risk PO and COPD Information obtained from: patient and medical record Past Medical History: Diagnosis Date Abnormal ECG Chronic GERD 12/28/2016 Chronic kidney disease COPD (chronic obstructive pulmonary disease) ([facility]) Coronary artery disease Coronary artery disease involving lime coronary artery of lime heart without angina pectoris 12/28/2016 Essential hypertension [...] 4.5 09/04/2024 0417 MG 1.8 (L) 09/04/2024 041 HGBA1C 6.6 (H) 09/03/2024 1709 HGB 10.4 [...] day. Breakfast will be things like bagels, comoran muffins, eggs, sausage, cote, hash browns, or [...] of Nutrition and Dietetics (AND) and the [place] [employer] of Enteral and Parenteral Nutrition (ASPEN). [...] To reach the Clinical Dietitian, please utilize [employer] chat (more content not included)...[facility]06-09-2025 NoteSubjective Chiara Eduardo is a 69 year old female who reported shortness of breath yesterday. She has a PMH including COPD, HTN, HLD, and chronic GERD. She quit smoking in 2017. She presented to [facility] last night with shortness of breath and acute on chronic abdominal pain. X-ray showed right lower lobe pneumonia with increased troponin of 78.9 and lactic acid of 3.2. She was started on heparin drip, given antibiotics and sent to [facility] for further follow-up. Upon arrival to [facility], she reported mild lower abdominal pain and denied any ramón pain, cough, palpitation or any other related symptoms. Initial EKG showed sinus rhythm with frequent premature ventricular complexes and low voltage QRS. Follow-up x-ray at [facility] was consistent with the previous findings of [...] -- -- -- 98 % -- -- 09/04/245 135/50 36.3 ???C (97.3 ???F) Temporal 83 [...] QT Interval 354 QTC CALCULATION(BAZETT) 440 P Hartley 69 R-Hartley 35 T Wave Hartley 45 Impression Sinus rhythm with frequent Premature [...] from 1,478 yesterday to (more content not included)...[facility]06-08-2025 Note Hospital Medicine History and Physical 09/03/2024 5:56 PM THE HOSPITALIST TEAM PREFERS TO USE [employer] CHAT FOR COMMUNICATION 7AM-7PM. IF I DO NOT RESPOND WITHIN 15 MINUTES, PLEASE PAGE ME/CALL THROUGH THE CREATIVE/ART DIRECTOR. FROM 7PM-7AM, PLEASE PAGE [phone](COVR) Chief Complaint Patient is direct admitted from [facility] with shortness of breath. History of Present Illness Chiara Eduardo is an 69 y.o. female who came from home with shortness of breath. Patient has history of COPD, quit smoking 2016, on Lasix 20 mg every other day, started having worsening shortness of breath, and acute on chronic abdominal pain last night, she presented to [facility], found to have right lower lobe pneumonia, with increasing troponin to 78.9, lactic of 3.2, patient was started on heparin drip, antibiotics, and was sent to [facility] for further workup. At time of arrival [...] List Diagnosis Date Noted Non-sustained ventricular tachycardia ([facility]) 11/17/2022 NSTEMI (non-ST elevated myocardial infarction) ([facility]) 09/03/2024 Pneumonia 09/03/2024 Acute hypoxic respiratory failure ([facility]) 09/03/2024 CRP elevated 07/26/2024 Elevated WBC count 07/26/2024 Body mass index (BMI) 35.0-35.9, adult 06/08/2024 Irregular heartbeat 04/18/2024 Stage 3a chronic kidney disease (CMS/HCC) 04/12/2023 Multiple pulmonary nodules 03/02/2023 PVC (premature ventricular contraction) 12/31/2022 History of tobacco use 12/28/2022 Other fdc (current) 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 12/28/2022 Anemia 10/27/2022 Hypomagnesemia 10/27/2022 Hyponatremia 10/27/2022 Arrhythmia 10/26/2022 Former smoker 01/22/2020 Health care maintenance 01/22/2020 Diuretic-induced hypokalemia 01/16/2018 History of acute inferior wall FL 01/13/2018 Bladder prolapse, female, acquired 12/28/2016 Chronic GERD 12/28/2016 COPD (chronic obstructive pulmonary disease) ([facility]) 12/28/2016 Coronary artery disease involving lime coronary artery of lime heart without angina pectoris 12/28/2016 Lower back pain 12/28/2016 Severe obesity (BMI 35.0-39.9) with comorbidity ([facility]) 12/28/2016 Shortness of breath 12/28/2016 Essential hypertension 12/14/2016 Mixed hyperlipidemia 12/14/2016 Angina pectoris, unstable ([facility]) 06/15/2024 Chest pain 07/08/2022 Assessment and Plan # Acute hypoxic respiratory failure # Pneumonia - Patient requiring nonrebreather upon arrival to [facility], will get ABG, switch to high flow nasal cannula - Due to to pneumonia, there is also component of heart failure -Chest x-ray at [facility] showed right lower lobe pneumonia, unfortunately [...] was 8.5 then up to 78.9 at [facility], with no acute ST changes. - [...] this hospital stay by a member of [facility]. Past Medical History Past Medical History: Diagnosis Date Abnormal ECG (more content not included)...[facility]05-06-2025 Note [facility] Cardiology Clinic Note Chief Complaint: Patient here for follow up heart cath and Dr. Schumcaher office visit. Patient states she has no cardiac complaints. HPI: Chiara Eduardo is a 69 y.o. female with a history of coronary artery disease, prior stent placement, COPD, nonsustained ventricular tachycardia here due to worsening symptoms. For the past several months, she has noticed worsening shortness of breath. Her stamp redemption clerk adjusted her inhalers but this does not [...] kidney disease, COPD (chronic obstructive pulmonary disease) ([facility]), Coronary artery disease, Coronary artery disease involving lime coronary artery of lime heart without angina pectoris (12/28/2016), Essential hypertension [...] x3, well developed, in (more content not included)...[facility]04-30-2025 Evaluation note* Diagnosis Stage 3a chronic kidney disease (HCC) (CMS/HCC)- Primary Other hyperlipidemia Coronary artery disease involving lime coronary artery of lime heart without angina pectoris (CMS/HCC) Irregular heartbeat- Primary Unspecified cardiac dysrhythmia Essential (primary) hypertension (CMS/HCC)- Primary Unspecified essential hypertension Morbid (severe) obesity due to excess calories (CMS/HCC) Body mass index (BMI) 35.0-35.9, adult Chronic obstructive pulmonary disease, unspecified Chronic kidney disease, stage 3b (HCC) (CMS/HCC) Coronary artery disease involving lime coronary artery of lime heart without angina pectoris (CMS/HCC) Hypomagnesemia Disorders of magnesium metabolism Mixed hyperlipidemia (CMS/HCC) Mixed hyperlipidemia Chronic low back pain, unspecified back pain laterality, unspecified whether sciatica present Leukocytosis, unspecified type- Primary [id number]* Diagnosis Stage 3a chronic kidney disease (HCC) (CMS/HCC)- Primary Other hyperlipidemia Coronary artery disease involving lime coronary artery of lime heart without angina pectoris (CMS/HCC) Irregular heartbeat- Primary Unspecified cardiac dysrhythmia Essential (primary) hypertension (CMS/HCC)- Primary Unspecified essential hypertension Morbid (severe) obesity due to excess calories (CMS/HCC) Body mass index (BMI) 35.0-35.9, adult Chronic obstructive pulmonary disease, unspecified Chronic kidney disease, stage 3b (HCC) (CMS/HCC) Coronary artery disease involving lime coronary artery of lime heart without angina pectoris (CMS/HCC) Hypomagnesemia Disorders of magnesium metabolism Mixed hyperlipidemia (CMS/HCC) Mixed hyperlipidemia Chronic low back pain, unspecified back pain laterality, unspecified whether sciatica present Leukocytosis, unspecified type- Primary CRP elevated Elevated C-reactive protein (CRP) documented in this encounter [id number] Evaluation note* Diagnosis Onset Date Resolution Status [...] D deficiency acute [employer] 2024 1:35pm [facility] Work Phone: [phone] 239-943904-07-2025 NoteIV fluid bolus at 999ml per hr started. Patient states feeling lightheaded. Placed in reverse trendelenburg. States feels better with change in position [facility]03-31-2025 NoteDrLissett Azevedo made aware - patient is coming for R/Cors on 07/03/24 (procedure at 10:30am). She had labs on 06/26/2024. BUN 23 (normal 7.0-18.0), creat 1.34 (normal 0.55-1.02). She has a history of CKD (per her clinic note).[facility]03-20-[facility] Chief Complaint: [...] has noticed worsening shortness of breath. Her stamp redemption clerk adjusted her inhalers but this does not [...] kidney disease, COPD (chronic obstructive pulmonary disease) ([facility]), Coronary artery disease, Coronary artery disease involving lime coronary artery of lime heart without angina pectoris (12/28/2016), Essential hypertension [...] table (more content not included)...[facility]03-13-2025 History of Present illness Narrative* Nolvia Jimenez [...] problems. Hypertensive end-organ damage includes kidney disease andCAD/FL. Identifiable causes of hypertension include chronic renal [...] pain Coronary artery disease (CMS/HCC) Essential hypertension ([facility]/HCC) History of tobacco abuse HLD (hyperlipidemia) ([facility]/HCC) Kidney disease Multiple pulmonary nodules SIADH (syndrome of inappropriate ADH production) ([facility]/HCC) Stroke ([facility]) Past Surgical History: Procedure Laterality Date CARDIAC [...] albuterol, trelegy, Under the care of pulmonology [facility] Coronary artery disease involving lime coronary artery of lime heart without angina pectoris ([facility]/HCC) (Chronic) Under the care of cardiology Current meds: statin, asa, imdur, b shyam, arb, diuretic, and ranexa Aggressive risk factor modification Hypomagnesemia Takes magnesium supplement Check labs yearly and prn dose changes or changes in symtpoms Lower back pain Flexeril prn Relevant Medications cyclobenzaprine (Flexeril) 10 MG tablet Morbid (severe) obesity due to excess calories ([facility]/HCC) Discussed with patient their BMI (actual, verses recommended). We have also discussed lifestyle modifications: attempts to perform physical activity as chronic conditions allow, also to monitor dietary intake: increasing protein/fruits/veggies and lowering carb intake (unless contraindicated). Limit sodas, juices, and sugary drinks. Essential (primary) hypertension ([facility]/HCC) - Primary Please check blood pressure daily [...] 06/08/2024 7:42 AM EDTAssociated Problem(s): Mixed hyperlipidemia ([facility]/HCC) Statin therapy Check labs yearly and prn dose changes * Nolvia Jimenez NP - 06/08/2024 7:41 AM EDTAssociated Problem(s): Hypomagnesemia Takes magnesium supplement Check labs yearly and prn dose changes or changes in symtpoms * Nolvia Jimenez NP - 06/08/2024 7:41 AM EDTAssociated Problem(s): Morbid (severe) obesity due to excess calories ([facility]) Discussed with patient their BMI (actual, verses recommended). We have also discussed lifestyle modifications: attempts to perform physical activity as chronic conditions allow, also to monitor dietary intake: increasing protein/fruits/veggies and lowering carb intake (unless contraindicated). Limit sodas, juices, and sugary drinks. * Nolvia Jimenez NP - 06/08/2024 7:40 AM EDTAssociated Problem(s): Chronic kidney disease, stage 3b (HCC) ([facility]) Goal to keep blood pressure well control [...] AM EDTAssociated Problem(s): Coronary artery disease involving lime coronary artery of lime heart without angina pectoris (CMS/HCC) Under the care of cardiology Current meds: statin, asa, imdur, b shyam, arb, diuretic, and ranexa Aggressive risk factor modification * Nolvia Jimenez NP - 06/08/2024 7:38 AM EDTAssociated Problem(s): Chronic obstructive pulmonary disease, unspecified (CMS/HCC) Current meds: albuterol, trelegy, Under the care of pulmonology [facility] documented in this encounterFreeman [facility]os[facility] [id number] Evaluation note* Diagnosis Stage 3a chronic kidney disease (HCC) (CMS/HCC)- Primary Other hyperlipidemia (CMS/HCC) Coronary artery disease involving lime coronary artery of lime heart without angina pectoris (CMS/HCC) Irregular heartbeat- Primary Unspecified cardiac dysrhythmia Essential (primary) hypertension (CMS/HCC)- Primary Unspecified essential hypertension Morbid (severe) obesity due to excess calories (CMS/HCC) Body mass index (BMI) 35.0-35.9, adult Chronic obstructive pulmonary disease, unspecified (CMS/HCC) Chronic kidney disease, stage 3b (HCC) (CMS/HCC) Coronary artery disease involving lime coronary artery of lime heart without angina pectoris (CMS/HCC) Hypomagnesemia Disorders of magnesium metabolism Mixed hyperlipidemia (CMS/HCC) Mixed hyperlipidemia Chronic low back pain, unspecified back pain laterality, unspecified whether sciatica present documented in this encounter [facility] [id number] NoteUT Electrophysiology Consult Note Reason for visit: [...] order to feel better Prior HPI: Chiara Eudardo is a 68 y.o. year old with past medical history of CAD with stable recent cath 10/30/22 and hx of x2 stents to RCA in 2001 and 06/2022, hypertension, anemia, dyslipidemia, COPD, chronic anemia, obesity, migraine headaches, longstanding tobacco use history but has quit, frequent PVCs. She is currently on dual antiplatelet therapy with aspirin and effient. She was recently seen at [facility] as a transfer from [facility] for complaints of symptomatic wide-complex tachycardia [...] kidney disease COPD (chronic obstructive pulmonary disease) ([facility]/HCC) Coronary artery disease Coronary artery disease involving lime coronary artery of lime heart without angina pectoris 12/28/2016 Essential hypertension 12/14/2016 Hyperlipidemia Lower back pain 12/28/2016 Mixed hyperlipidemia 12/14/2016 Shortness of breath 12/28/2016 PSH: Past Surgical History: Procedure Laterality Date CARDIAC CATHETERIZATION CHOLECYSTECTOMY CORONARY STENT PLACEMENT HYSTERECTOMY SH: Social Determinants of Health Tobacco Use: Medium Risk (04/26/2024) [facility] Patient History Smoking Tobacco Use: Former Smokeless Tobacco Use: Never Passive Exposure: Not on file Alcohol Use: Not At Risk (01/14/2019) Received from [facility], [facility] Frequency of Alcohol Consumption: Monthly or less Average Number of Drinks: 1 or 2 Frequency of Binge Drinking: Never Financial Resource Strain: Low Risk (10/26/2022) Overall [employer] (more content not included)...[facility]01-29-2025 History of Present illness Narrative* Shanda Cheng [...] weeks with BP readings. documented in this [facility]01-29-2025 Instructions* Patient Instructions* Shanda Cheng NP [...] numbness/tingling GO TO ER!!! documented in this [facility]01-29-2025 Evaluation note* Diagnosis Stage 3a chronic kidney disease (HCC) ([facility]/HCC)- Primary Other hyperlipidemia (CMS/HCC) Coronary artery disease involving lime coronary artery of lime heart without angina pectoris (CMS/HCC) Irregular heartbeat- Primary Unspecified cardiac dysrhythmia Essential hypertension (CMS/HCC)- Primary Unspecified essential hypertension documented in this encounter [facility] [id number] History of Present illness Narrative* Shanda Cheng [...] who presents for Follow-up. HPI Specialists: Cardiology- [facility] Nephrology- Dr. [place] Pulmonology- Dr. Schumacher [...] further eval and treatment documented in this encounterFreeman Neosho [id number] Evaluation note* Diagnosis Stage 3a chronic kidney disease (HCC) (CMS/HCC)- Primary Other hyperlipidemia (CMS/HCC) Coronary artery disease involving lime coronary artery of lime heart without angina pectoris (CMS/HCC) Irregular heartbeat- Primary Unspecified cardiac dysrhythmia [id number]* Diagnosis Stage 3a chronic kidney disease (HCC) (CMS/HCC)- Primary Other hyperlipidemia (CMS/HCC) Coronary artery disease involving lime coronary artery of lime heart without angina pectoris (CMS/HCC) Stage 3a chronic kidney disease (HCC) (CMS/HCC)- Primary documented in this encounter [id number] History of Present illness Narrative* Shanda Cheng NP - 01/17/2024 1:00 PM EDT Images from the original note were not included. Subjective : Chief Complaint: Chiara Eduardo is an 68 y.o. female here for an annual wellness visit. Specialists: Cardiology- [facility], [place] Pulmonology- Dr. Schumacher Nephrology- Dr. Madrid I [...] Shaikh Ric MD as PCP - [place] Shanda Cheng NP as Nurse Practitioner (Family Medicine) [...] on January 17, 2024 documented in this encounterFre[facility] [id number] NoteUT Electrophysiology Consult Note Reason for visit: [...] and effient. She was recently seen at [facility] as a transfer from [facility] for complaints of symptomatic wide-complex tachycardia [...] kidney disease COPD (chronic obstructive pulmonary disease) ([facility]) Coronary artery disease Coronary artery disease involving lime coronary artery of lime heart without angina pectoris 12/28/2016 Essential hypertension [...] the (more content not included)...[facility]12-12-2023 Evaluation note* Encounter Date Diagnosis Assessment Notes [...] deficiency (ICD-10 - E55.9) continue VD supplement [facility] Other [id number] Evaluation note* Encounter Date Diagnosis Assessment Notes [...] I will recheck sodium level next visit [facility] Other Evaluation note* Diagnosis Onset Date Resolution Status Anemia acute Hyperkalemia acute Hypertensive nephropathy acu te Hyperuricemia acute Hypomagnesemia acute Hyponatremia acute Stage 3b chronic kidney disease acute Vitamin D deficiency acute [facility] Work Phone: Evaluation note* Diagnosis Stage 3a chronic kidney disease (HCC) (CMS/HCC)- Primary Other hyperlipidemia (CMS/HCC) Coronary artery disease involving lime coronary artery of lime heart without angina pectoris (CMS/HCC) Routine general medical examination at health care facility- Primary Routine general medical examination at a health care facility documented in this encounter [facility]* Diagnosis Stage 3a chronic kidney disease (HCC) (CMS/HCC)- Primary Other hyperlipidemia (CMS/HCC) Coronary artery disease involving lime coronary artery of lime heart without angina pectoris (CMS/HCC) Other hyperlipidemia (CMS/HCC) documented in this encounter [facility]* Diagnosis Stage 3a chronic kidney disease (HCC) (CMS/HCC)- Primary Other hyperlipidemia (CMS/HCC) Coronary artery disease involving lime coronary artery of lime heart without angina pectoris (CMS/HCC) Irregular heartbeat- Primary Unspecified cardiac dysrhythmia Essential hypertension (CMS/HCC)- Primary Unspecified essential hypertension documented in this encounter [facility]* Diagnosis Stage 3a chronic kidney disease (CMS-HCC)- Primary Other hyperlipidemia Coronary artery disease involving lime coronary artery of lime heart without angina pectoris Irregular heartbeat- Primary Unspecified cardiac dysrhythmia Essential (primary) hypertension- Primary Unspecified essential hypertension Morbid (severe) obesity due to excess calories (CMS-HCC) Body mass index (BMI) 35.0-35.9, adult Chronic obstructive pulmonary disease, unspecified (HCC) Chronic kidney disease, stage 3b (CMS-HCC) Coronary artery disease involving lime coronary artery of lime heart without angina pectoris Hypomagnesemia Disorders of magnesium metabolism Mixed hyperlipidemia Mixed hyperlipidemia Chronic low back pain, unspecified back pain laterality, unspecified whether sciatica present Pneumonia of right lower lobe due to infectious organism- Primary Acute hypoxic respiratory failure (HCC) Coronary artery disease involving lime coronary artery of lime heart without angina pectoris Essential (primary) hypertension [...] initial encounter- Primary documented in this encounter [facility] noteNo assessment information availableDunlap [facility] Work Phone: Hisfkmb general Narrative - Reported* Type Description Date Medical History CHRONIC OBSTRUCTIVE PULMONARY DI SEASE Medical History HYPERTENSION Medical History GERD Medical History HYPERLIPIDEMIA Medical History HEART ATTACK Surgical History HYSTERECTOMY Surgical History GALL BLADDER Surgical History TUBES TIED Surgical History 2 HEART STENTS Hospitalization History SEE ABOVE [facility] Other History general Narrative - Reported* Type [...] History SEE ABOVE Hospitalization History V-TACH 3 [facility] Other Hospital Discharge instructions Additional Instructions DISCHARGE [...] three times daily if needed. -Office number [phone]. [facility] Work Phone: Reason for referral (narrative)No reason for referral information availableDunlap [facility] Work Phone: Summary Purpose Family [...] Documents on File Type Date Recorded Patient [employer] Power of Loss Prevention Analyst 09/06/2024 3:49 PM Healt h care power of defense attorney-[facility] Documents on File Type Date Recorded Patient [employer] anation Power of Loss Prevention Analyst 09/06/2024 3:49 PM Healt h care power of defense attorney-[facility] Chief Complaint and Reason for Visit [...] and content) DATE CREATED AUTHOR 08/07/2022 [facility] DATE CREATED AUTHOR AUTHOR'S ORGANIZ ATION 11/12/2024 [facility] [address] [facility] DATE CREATED AUTHOR AUTHOR'S ORGANIZ ATION 11/14/2024 [facility] EPIC DATE CREATED AUTHOR AUTHOR'S ORGANIZ ATION 12/05/2024 [facility] Care Teams (unrecognized sec tion and [...] Start: November 282023 End: December 20, 2023 Sales Solutions Representative Relationship Specialty Start Date End Date Shaikh Larios MD [address] [place] [address] PCP - [place] 04/29/23 Trace Kelly MD [address] [place] [address] PCP - General Family Medicine 11/10/23 Shanda Cheng NP [address] [place] [address] Nurse Practitioner Family Medicine 11/10/23 [employer] Representative Relationship Specialty Start Date End Date Shaikh Larios MD [address] [place] [address] PCP - [place] 04/29/23 Trace Kelly MD [address] [place] [address] PCP - General Family Medicine 01/17/24 Shanda Cheng NP [address] [place] [address] Nurse Practitioner Family Medicine 11/10/23 [employer] Representative Relationship Specialty Start Date End Date Shaikh Larios MD [address] [place] [address] PCP Ana Lilia Coffey [place] 04/29/23 Trace Kelly MD [address] [place] [address] PCP - General Family Medicine 01/17/24 Shanda Cheng NP [address] [place] [address] Nurse Practitioner Family Medicine 11/10/23 [employer] Representative Relationship Specialty Start Date End Date Shaikh Larios MD [address] [place] [address] PCP Ana Lilia Coffey [place] 04/29/23 Trace Kelly MD [address] [place] [address] PCP - General Family Medicine 01/17/24 Shanda Cheng NP [address] [place] [address] Nurse Practitioner Family Medicine 11/10/23 [employer] Representative Relationship Specialty Start Date End Date Shaikh Larios MD [address] [place] [address] YOLANDE Coffey MA 04/29/23 Trace Kelly MD [address] [place] [address] PCP - General Family Medicine 11/10/23 Shanda Cheng NP [address] [place] [address] Nurse Practitioner Family Medicine 11/10/23 [employer] Representative Relationship Specialty Start Date End Date Shaikh Larios MD [address] [place] [address] PCP Ana Lilia Coffey [place] 04/29/23 Trace Kelly MD [address] [place] [address] PCP - General Family Medicine 01/17/24 Shanda Cheng NP [address] [place] [address] Nurse Practitioner Family Medicine 11/10/23 [employer] Representative Relationship Specialty Start Date End Date Shaikh Larios MD [address] [place] [address] PCP - [place] 04/29/23 Trace Kelly MD [address] [place] [address] PCP - General Family Medicine 01/17/24 Shanda Cheng NP [address] [place] [address] Nurse Practitioner Family Medicine 11/10/23 [employer] Solutions Representative Relationship Specialty Start Date End Date Shaikh Larios MD [address] [place] [address] PCP Ana Lilia Coffey [place] 04/29/23 Trace Kelly MD [address] [place] [address] PCP - General Family Medicine 01/17/24 Shanda Cheng NP [address] [place] [address] Nurse Practitioner Family Medicine 11/10/23 [employer] Solutions Representative Relationship Specialty Start Date End Date Shaikh Larios MD [address] [place] [address] PCP - [place] 04/29/23 Trace Kelly MD [address] [place] [address] PCP - General Family Medicine 01/17/24 Shanda Cheng NP [address] [place] [address] Nurse Practitioner Family Medicine 11/10/23 [employer] Representative Relationship Specialty Start Date End Date Trace Kelly MD [address] [place] [address] PCP - General Family Medicine 01/17/24 Shanda Cheng NP PCP - [place] 03/29/24 Shanda Cheng NP Nurse Practitioner Family Medicine 11/10/23 [employer] Representative Relationship Specialty Start Date End Date Trace Kelly MD [address] [place] [address] PCP - General Family Medicine 01/17/24 Shanda Cheng NP PCP - [place] 03/29/24 Shanda Cheng NP Nurse Practitioner Family Medicine 11/10/23 Team Status: Active Member Role Status Dates Shanda Cheng NP-C Primary Care Provider Ac tive Start: May [...] July 25, 2024 End: July 25, 2024 [employer] Representative Relationship Specialty Start Date End Date Trace Kelly MD [address] [place] [address] PCP - General Family Medicine 01/17/24 Shanda Cheng NP PCP - [place] 03/29/24 Shanda Cheng NP Nurse Practitioner Family Medicine 11/10/23 [employer] Solutions Representative Relationship Specialty Start Date End Date Trace Kelly MD [address] [place] [address] PCP - General Family Medicine 01/17/24 Shanda Cheng NP PCP - [place] 03/29/24 Shanda Cheng NP Nurse Practitioner Family Medicine 11/10/23 Team Status: Inactive Member Role Status Dates Nolvia Jimenez Attending Provider Active Start: July 26, 2024 End: July 26, 2024 [employer] Representative Relationship Specialty Start Date End Date Trace Kelly MD [address] [place] [address] PCP - General Family Medicine 01/17/24 Shanda Cheng NP PCP - [place] 03/29/24 Shanda Cheng NP Nurse Practitioner Family Medicine 11/10/23 Sales Solutions Representative Relationship Specialty Start Date End Date Trace Kelly MD [address] [place] [address] PCP - General Family Medicine 01/17/24 Shanda Cheng NP PCP - [place] 03/29/24 Shanda Cheng NP Nurse Practitioner Family Medicine 11/10/23 Sales Solutions Representative Relationship Specialty Start Date End Date Trace Kelly MD [address] [place] [address] PCP - General Family Medicine 01/17/24 Shanda Cheng NP PCP - [place] 03/29/24 Shanda Cheng NP Nurse Practitioner Family Medicine 11/10/23 Sales Solutions Representative Relationship Specialty Start Date End Date Trace Kelly MD [address] [place] [address] PCP - General Family Medicine 01/17/24 Shanda Cheng NP PCP - [place] 03/29/24 Shanda Cheng NP Nurse Practitioner Family Medicine 11/10/23 [employer] Representative Relationship Specialty Start Date End Date Trace Kelly MD [address] [place] [address] PCP - General Family Medicine 01/17/24 Shanda Cheng NP PCP - [place] 03/29/24 Shanda Cheng NP Nurse Practitioner Family Medicine 11/10/23 Sales Solutions Representative Relationship Specialty Start Date End Date Trace Kelly MD [address] [place] [address] PCP - General Family Medicine 01/17/24 Shanda Cheng NP PCP - [place] 03/29/24 Shanda Cheng NP Nurse Practitioner Family Medicine 11/10/23 Sales Solutions Representative Relationship Specialty Start Date End Date Trace Kelly MD [address] [place] [address] PCP - General Family Medicine 01/17/24 Shanda Cheng NP PCP - [place] 03/29/24 Shanda Cheng NP Nurse Practitioner Family Medicine 11/10/23 Sales Solutions Representative Relationship Specialty Start Date End Date Trace Kelly MD [address] [place] [address] PCP - General Family Medicine 01/17/24 Shanda Cheng NP PCP - [place] 03/29/24 Shanda Cheng NP Nurse Practitioner Family Medicine 11/10/23 Sales Solutions Representative Relationship Specialty Start Date End Date Trace Kelly MD [address] [place] [address] PCP - General Family Medicine 01/17/24 Shanda Cheng NP PCP - [place] 03/29/24 Shanda Cheng NP Nurse Practitioner Family Medicine 11/10/23 Sales Solutions Representative Relationship Specialty Start Date End Date Trace Kelly MD [address] [place] [address] PCP - General Family Medicine 01/17/24 Shanda Cheng NP PCP - [place] 03/29/24 Shanda Cheng NP Nurse Practitioner Family Medicine 11/10/23 Sales Solutions Representative Relationship Specialty Start Date End Date Trace Kelly MD [address] [place] [address] PCP - General Family Medicine 01/17/24 Shanda [...] Provider Active Sta rt: November 01, 2024 [employer] Representative Relationship Specialty Start Date End Date Trace Kelly MD [address] [place] [address] PCP - General Family Medicine 01/17/24 Shanda Cheng NP PCP - [place] 03/29/24 Shanda Cheng NP Nurse Practitioner Family Medicine 11/10/23 [employer] Representative Relationship Specialty Start Date End Date Trace Kelly MD [address] [place] [address] PCP - General Family Medicine 01/17/24 Shanda Cheng NP PCP - [place] 03/29/24 Shanda Cheng NP Nurse Practitioner Family Medicine 11/10/23 [employer] Representative Relationship Specialty Start Date End Date Trace Kelly MD [address] [place] [address] PCP - General Family Medicine 01/17/24 Shanda Cheng NP PCP - [place] 03/29/24 Shanda Cheng NP Nurse Practitioner Family Medicine 11/10/23 Sales Solutions Representative Relationship Specialty Start Date End Date Trace Kelly MD [address] [place] [address] PCP - General Family Medicine 01/17/24 Shanda [...] BE BASED ON THE PRIMARY CLINICAL RECORDS. [employer] [facility]. provides no warranty or guarantee of the accuracy or completeness of information in this document.
[2024-12-07 13:28] LABS: Anion Gap 10.5; Blood Urea Nitrogen 26.0 mg/dL (7.0-18.0); Calcium 8.6 mg/dL (8.5-10.1); Carbon Dioxide 29.0 mmol/L (21.0-32.0); Chloride 101 mmol/L (98-107); Estimated GFR (African America 38 (>=60 mL/min/1.73m^2); Estimated GFR (Non-African Ame 31 (>=60 mL/min/1.73m^2); Glucose 106 mg/dL (74-106); Potassium 4.5 mmol/L (3.5-5.1); Sodium 136 mmol/L (136-145)
== END 2024-12-07 12:56 | disposition home or self-care (01) ==
PROVIDERS: PCP Nurse Practitioner
DX: I50.22 Chronic systolic (congestive) heart failure (principal)
CPT/HCPCS: 36415; 80048

== ENCOUNTER 2025-01-03 11:29 | Outpatient (OUT) | payer MEDICARE, SELFPAY ==
--- OUTSIDE RECORDS SUMMARY | 2024-12-25 15:39 | XMS_ITS | Continuity of Care Document ---
Author Organization [facility] Address [address] [place] [address] Phone Care Team Providers Care Pulper Name Role Phone Nolvia Jimenez NP-Chey Primary Care Provider [phone] Nolvia Jimenez Attending Provider Care Teams Patient Care Team Team Status: Active Member Role Status Dates KARO Webster Primary Care Provider Active Patient Care Team Team Status: Inactive Member Role Status Dates KARO Webster Primary Care Provider Active Start: December 25, 2024 End: December 25, 2024 KARO Webster Attending Provider Active Start: December 25, 2024 End: December 25, 2024 Chief Complaint and Reason for Visit Chief Complaint Admit Date 6W December 25, 2024 2:32pm Reason for Visit Admit Date 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 December 25, 2024 2:32pm Essential hypertension December 25 2:32pm GERD without esophagitis December 25, 2024 2:32pm Mixed hyperlipidemia December 25 2:32pm Morbid (severe) obesity due to excess ca lories December 25, 2024 2:32pm Stage 3b chronic kidney disease Septembe r 2024 2:32pm Type 2 diabetes mellitus without complic ation December 25, 2024 2:32pm Allergies, Adverse Reactions, Alerts Allergen Type Severity Reaction Last Updated Verified Status clopidogrel Allergy Unknown hives November 01, 2024 10:47am Yes Active hydrochlorothiazide Allergy Unknown rash 2024 10:47am Yes Active Penicillins Allergy Unknown hives November 01, 2024 10:47am Yes Active Sulfa (Sulfonamide Antibiotics) Allergy Unknown Unknown Reaction November 01, 2024 10:47am Yes Active vancomycin Allergy Unknown anaphylaxis November 01, 2024 10:47am Yes Active Social History Smoking Status Status Start Date End Date Date of Observa tion Ex-smoker (finding) November 012024 10:53am Observation Status Observation Response Date of Response Legal Sex Female (finding) Sex Assigned At Female April [id number] Family History Relationship Condition Age at Onset Recorded Date/T abdirizak daughter Hypertension Unknown father Unknown Hypertension Unknown mother Heart disease Unknown History of stroke Unknown Unknown Hypertension Unknown sister Hypertension Unknown Problems Active Problems Medical Problem Onset Date Status Irregular heartbeat Unknown Active Stage 3b chronic kidney disease Unknown Active Encounter for subsequent dee ual wellness visit (AWV) in Medicare patient Unknown Active CRP elevated Unknown Active CAD involving [place] coronary artery without ang nakia pectoris Unknown Active Morbid (severe) obesity due to excess calories U nknown Active Acute hypoxic respiratory failure Unknown Active Lower back pain Unknown Active Type 2 diabetes mellitus without complication Un known Active Heart failure Unknown Active Chronic respiratory failure Unknown Acti ve Anemia Unknown Active Hyperparathyroidism Unknown Active Hyperuricemia Unknown Active Hyponatremia Unknown Active Elevated WBC count Unknown Active Mixed hyperlipidemia Unknown Active Other constipation Unknown Active Bug bites Unknown Active Essential hypertension Unknown Active Former smoker Unknown Active Positive colorectal cancer screening using Colog uard test Unknown Active Epigastric pain Unknown Active Body mass index [BMI] 35.0-35.9, adult Unknown Active GERD without esophagitis Unknown Active Hypertensive nephropathy Unknown Active Pneumonia Unknown Active Vitamin D deficiency Unknown Active Hyperkalemia Unknown Active Hypomagnesemia Unknown Active Medications Medication Status Dose Units Route Directions Qty Days St art Date Stop Date End Date Instructions Adherence Sod Picosulf-Ma g Ox-Citric Ac (Clenpiq) 10 mg-3.5 gram- 12 gram/175 mL solution Discont inued 175 ML PO Daily 350 0 October 17, 2024 12:00a m 2024 10:47 am take first dose at 3:00 p.m. the day before the colonoscopy, take the second dose at 9:00 p.m. the day before the colonoscopy Fluticasone -Umeclidin- Vilanter (Trelegy Ellipta) 100-62.5-25 mcg blister with device Active 1 INH INHALA TION Daily October 18, 2024 12:00a m Complies with 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 Oxygen-Air Delivery Systems device Active 0 .ROUTE October 18, 2024 12:00a m As directed Prasugrel Hcl 10 mg tablet Discont inued 10 MG PO Daily November 16, 2023 12:00a m 2023 2:49p m Olmesartan 40 mg tablet Active 40 MG PO Daily November 16, 2023 12:00a m Complies with 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 Furosemide 20 mg tablet Discont inued 20 MG PO Daily November 16, 2023 12:00a m 2023 2:50p m Omeprazole 20 mg capsule,del ayed release(DR/ EC) Discont inued 20 MG PO Daily November 16, 2023 12:00a m [facility] 2024 4:13p m Metoprolol Succinate 100 mg tablet extended release 24 hr Discont inued 100 MG PO Daily November 16, 2023 12:00a m 2023 2:50p m Atorvastati n 80 mg tablet Active 80 MG PO Daily at bedtime November 16, 2023 12:00a m Unknown Fluticasone Propion-Jeremy meterol (Advair Diskus) 250-50 mcg/dose blister with device Discont inued 1 INH INHALA TION Twice daily November 16, 2023 12:00a m July 25, 2024 1:41p m Ipratropium -Albuterol 0.5 mg-3 mg(2.5 mg base)/3 mL solution for nebulizatio n Active 3 ML INHALA TION Every 6 hours as needed for shortness of breath November 16, 2023 12:00a m Complies with 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 Isosorbide Mononitrate 30 mg tablet extended release 24 hr Discont inued 30 MG PO Daily November 16, 2023 12:00a m July 25, 2024 1:39p m Aspirin 81 mg tablet,jeremy yed release (DR/EC) Active 81 MG PO Daily November 16, 2023 12:00a m Complies with 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 Magnesium Oxide 400 mg (241.3 mg magnesium) tablet Active 400 MG PO Twice daily November 16, 2023 12:00a m Complies with 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 Albuterol Sulfate (Ventolin Hfa) 90 mcg/actuati on HFA aerosol inhaler Active 2 PUFF INHALA TION Every 4 hours November 16, 2023 12:00a m Complies with 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 Prednisone 5 mg tablet Discont inued 5 MG PO Once November 16, 2023 12:00a m July 25, 2024 1:38p m Furosemide 20 mg tablet Discont inued 30 MG PO Every 48 hours [facility] 2023 2:49pm [facility] 2024 4:12p m Metoprolol Succinate 100 mg tablet extended release 24 hr Discont inued 50 MG PO Daily [facility] 2023 2:50pm July 25, 2024 1:40p m Prednisone 10 mg tablet Discont inued 10 MG PO Daily July 25, 2024 12:00a m [facility] 2024 4:13p m Dapaglifloz in Propanediol (Farxiga) 10 mg tablet Active 10 MG PO Daily July 25, 2024 12:00a m Complies with 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 Isosorbide Mononitrate 60 mg tablet extended release 24 hr Active 60 MG PO Daily July 25, 2024 12:00a m Complies with 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 Metoprolol Succinate 50 mg tablet extended release 24 hr Active 50 MG PO Twice daily July 25, 2024 12:00a m Complies with 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 Cyclobenzap rine 10 mg tablet Discont inued 5 MG PO Every 6 hours as needed for muscle spasm July 25, 2024 12:00a m [facility] 2024 4:14p m Dupilumab (Dupixent Syringe) 100 mg/0.67 mL syringe Active 300 MG SUBCUT EVERY 2 WEEKS July 25, 2024 12:00a m Complies with 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 Cholecalcif manjit (Vitamin D3) 50 mcg (2,000 unit) capsule Active 50 MCG PO Daily July 25, 2024 12:00a m Complies with 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 Cyclobenzap rine 10 mg tablet Active 10 MG PO Three times daily as needed for muscle spasm 2024 4:11pm Complies with 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 Furosemide 40 mg tablet Active 40 MG PO Daily 2024 12:00a m Complies with 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 Pantoprazol e 40 mg tablet,jeremy yed release (DR/EC) Active MG PO 2024 12:00a m Complies with 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 Vital Signs Vital Reading Result Reference Range Collection Date/Time Height 62 [in_i] December 25, 2024 3:13pm Weight 89.47 kg December 25, 2024 3:13pm Body Temperature 98.2 [degF] 97.6-99.0 November 282024 3:13pm Heart Rate 93 /min 60-100 December 25, 2024 3:13pm Respiratory rate 22 /min 12-November 282024 3:13pm Oxygen saturation by Pulse oximetry 96 % 95-100 December 25, 2024 3:13pm BP Systolic 98 mm[Hg] 100-140 December 25, 2024 3:13pm BP Diastolic 76 mm[Hg] 60-100 December 25, 2024 3:13pm BMI (Body Mass Index) 36.1 kg/m2 2024 3:13pm Advance Directives Advance Directive Response Recorded Date/ Time Advance Directives No November 16, 2023 9:54am Insurance Providers Guarantor Susana Juares Address [address] [address] Contact Info. Home Phone: Payer Policy Id Subscriber's Name Subscriber Id Effectiv e Date Expiration Date [facility] [id number] Susana Juares [id number] Encounters Encounter Location(s) Arrival/Admit Date Discharge/Depart Date Provider(s) Departed Physician/Prov ider Office Visit -[facility] Family Medicine Roger December 25, 2024 2:32pm December 25, 2024 3:38pm KARO Webster Recent Diagnosis Onset Date Admit Date 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 Unknown December 25, 2024 2:32pm Essential hypertension Unknown December 25, 2024 2:32pm GERD without esophagitis Unknown 2024 2:32pm Mixed hyperlipidemia Unknown November 282024 2:32pm Morbid (severe) obesity due to excess calories U nknown December 25, 2024 2:32pm Stage 3b chronic kidney disease Unknown December 25, 2024 2:32pm Type 2 diabetes mellitus without complication Un known December 25, 2024 2:32pm Assessments Diagnosis Onset Date Resolution Status Admit Date 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 acute S eptember 2024 2:32pm Essential hypertension acute Se ptember 2024 2:32pm GERD without esophagitis acute December 25, 2024 2:32pm Mixed hyperlipidemia acute Sept ember 2024 2:32pm Morbid (severe) obesity due to excess calories acute December 25, 2024 2:32pm Stage 3b chronic kidney disease acut e December 25, 2024 2:32pm Type 2 diabetes mellitus without complication acute November 282024 2:32pm Plan of Treatment Author Nolvia Jimenez [facility] Authored December 25, 2024 3:25pm Please check blood pressure daily and record DASH diet Limit caffeine Take medication as directed Contact office if chest pain, pressures, dizziness, shortness of breath, swelling in the legs Recommend slow position changes if you develop dizziness with position changes current meds: b shyam, arb on asa, statin, b shyam, imdur follows with [facility] cardiology Recommendations: freq small meals, nothing to eat or drink at least 2 hours prior to bed, limit caffeine, alcohol, as well as spicy foods. Meds to limit or avoid if possible: NSAIDS Elevate the HOB if possible current meds: Pantoprazole on statin check labs yearly and prn dose changes Check blood sugars daily, notify the office if <70 or > 200. Take medications (pills or insulin) as directed. Monitor for s/s of low blood sugar (sweaty, dizziness, nausea, vomiting, or shakiness). Watch for increase thirst, urination, and appetite as these can be signs of high blood sugar. Inspect your feet frequently monitor for open wounds, wear proper fitting shoes as well. Pt should attempt to remain as physical active as chronic conditions allow, as well as trying to follow a diet lower in carbohydrates, and simple sugars. current meds: asa, statin, a1c: 6.0% 12/25/24, 6.6% on 09/03/24 control HTN and DM avoid nephrotoxic drugs if possible Discussed with patient their BMI (actual vs recommended). We have discussed lifestyle modifications: attempts to perform phsyical activity as chronic conditions allow, monitor dietary intake: increasing protein/fruits/veggies and lowering carb intake (unless contraindicated). Limit sodas, juices, sugary drinks, as well as alcohol consumption. Future Tests Future scheduled test information is unavailable Pending Tests Pending diagnostic test information is unavailable Future Visits Future appointment information is unavailable Referrals to Other Providers Referral information is unavailable Future Procedures Procedure Name Ordered Date Scheduled Date Discharge Order November 01, 2024 12:44pm November 01, 2024 12:44pm Future Medications Future medication information is unavailable Patient Instructions Instruction Admit Date Colon Stricture (DC) [facility] Diverticulosis Discharge Instructions [facility] Hemorrhoids Discharge Instructions Know your Meds [facility] Colon Polypectomy Discharge Instructions November 01, 2024 10:27am
--- OUTSIDE RECORDS SUMMARY | 2024-12-28 07:06 | XMS_ITS | Continuity of Care Document ---
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 Name Role Phone Lisa Perez MD Attending Provider Lisa Perez MD Other Provider Nolvia Jimenez NP-C Primary Care Provider Zack VillarrealC Attending Provider [phone] Nolvia Jimenez NP-C Attending Provider Care Teams Patient Care Team Team Status: Active Member Role Status Dates KARO Webster Primary Care Provider Active Visit Care Team Team Status: Active Member Role Status Dates Lisa Perez MD Attending Provider Active Start: November 01, 2024 Lisa Perez MD Other Provider Active Start: Oct KARO Webster Primary Care Provider Active Start: November 01, 2024 Visit Care Team Team Status: Active Member Role Status Dates Nolvia Jimenez NP-C Primary Care Provider Active Start: December 07, 2024 KARO Crum Attending Provider Active S tart: December 07, 2024 Visit Care Team Team Status: Inactive Member Role Status Dates Nolvia Jimenez NP-C Primary Care Provider Active Start: December 25, 2024 End: December 25, 2024 KARO Webster Attending Provider Active Start: December 25, 2024 End: December 25, 2024 Patient Care Team Team Status: Inactive Member Role Status Dates KARO Webster Primary Care Provider Active Start: December 28, 2024 End: December 28, 2024 Lisa Perez MD Attending Provider Active Start: December 28, 2024 End: December 28, 2024 Chief Complaint and Reason for Visit Chief Complaint Admit Date positive cologuard, constipation November 01, 2024 10:27am 6W December 25, 2024 2:32pm REF NOLVIA HARDWICK NAUSEA/VOMITING/GASTRO PAIN December 28, 2024 10:37am Reason for Visit Admit Date 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 December 25, 2024 2:32pm Essential hypertension December 25 2:32pm GERD without esophagitis December 25, 2024 2:32pm Mixed hyperlipidemia December 25 2:32pm Morbid (severe) obesity due to excess ca lories December 25, 2024 2:32pm Stage 3b chronic kidney disease Septembe r 2024 2:32pm Type 2 diabetes mellitus without complic ation December 25, 2024 2:32pm Constipation December 28, 2024 10 :37am Diverticular stricture December 28, 2024 10:37am GERD without esophagitis December 28 10:37am Nausea & vomiting December 28, 2024 10 :37am Allergies, Adverse Reactions, Alerts Allergen Type Severity Reaction Last Updated Verified Status clopidogrel Allergy Unknown hives December 28, 2024 10:47am Yes Active hydrochlorothiazide Allergy Unknown rash Octob er 2024 10:47am Yes Active Penicillins Allergy Unknown hives December 28, 2024 10:47am Yes Active Sulfa (Sulfonamide Antibiotics) Allergy Unknown Unknown Reaction December 28, 2024 10:47am Yes Active vancomycin Allergy Unknown anaphylaxis December 28, 2024 10:47am Yes Active Social History Smoking [...] Active Problems Medical Problem Onset Date Status Diverticular stricture Unknown Active Irregular heartbeat Unknown Active Stage 3b chronic kidney disease Unknown Active Encounter for subsequent dee ual wellness visit (AWV) in Medicare patient Unknown Active CRP elevated Unknown Active CAD involving [place] coronary artery without ang nakia pectoris Unknown [...] Hypertensive nephropathy Unknown Active Pneumonia Unknown Active Constipation Unknown Active Vitamin D deficiency Unknown Active Hyperkalemia Unknown Active Hypomagnesemia Unknown Active Medications Medication Status Dose Units Route Directions Qty Days St art Date Stop Date End Date Instructions Adherence Sod Picosulf-Ma g Ox-Citric Ac (Clenpiq) 10 mg-3.5 gram- 12 gram/175 mL solution Discont inued 175 ML PO Daily 350 0 October 17, 2024 12:00a m Augus t 2024 10:47 am take first dose at 3:00 p.m. the day before the colonoscopy, take the second dose at 9:00 p.m. the day before the colonoscopy Fluticasone -Umeclidin- Vilanter (Trelegy Ellipta) 100-62.5-25 mcg blister with device Active 1 INH INHALA TION Daily October 18, 2024 12:00a m Unknown Oxygen-Air Delivery Systems device Active 0 .ROUTE October 18, 2024 12:00a m As directed Prasugrel Hcl 10 mg tablet Discont inued 10 MG PO Daily November 16, 2023 12:00a m Novem tamar 2023 2:49p m Olmesartan 40 mg tablet Active 40 MG PO Daily November 16, 2023 12:00a m Unknown Furosemide 20 mg tablet Discont inued 20 MG PO Daily November 16, 2023 12:00a m Novem tamar 2023 2:50p m Omeprazole 20 mg capsule,del ayed release(DR/ EC) Discont inued 20 MG PO Daily November 16, 2023 12:00a [facility] Metoprolol Succinate 100 mg tablet extended release 24 hr Discont inued 100 MG PO Daily November 16, 2023 12:00a m Novem tamar 2023 2:50p m Atorvastati n 80 mg [...] of breath November 16, 2023 12:00a m Unknown Isosorbide Mononitrate 30 mg tablet extended release 24 hr Discont inued 30 MG PO Daily November 16, 2023 12:00a m July 25, 2024 1:39p m Aspirin 81 mg tablet,jeremy yed release (DR/EC) Active 81 MG PO Daily November 16, 2023 12:00a m Unknown Magnesium Oxide 400 mg (241.3 mg magnesium) tablet Active 400 MG PO Twice daily November 16, 2023 12:00a m Unknown Albuterol Sulfate (Ventolin Hfa) 90 mcg/actuati on HFA aerosol inhaler Active 2 PUFF INHALA TION Every 4 hours November 16, 2023 12:00a m Unknown Prednisone 5 mg tablet Discont inued 5 MG PO Once November 16, 2023 12:00a m July 25, 2024 1:38p m Furosemide 20 mg tablet Discont inued 30 MG PO Every 48 hours Novemb er 2023 2:49pm [facility] 2024 4:12p m Metoprolol Succinate 100 mg tablet extended release 24 hr Discont inued 50 MG PO Daily Novemb er 2023 2:50pm July 25, 2024 1:40p m Prednisone 10 mg tablet Discont inued 10 MG PO Daily July 25, 2024 12:00a m [facility] 2024 4:13p m Dapaglifloz in Propanediol (Farxiga) 10 mg tablet Active 10 MG PO Daily July 25, 2024 12:00a m Unknown Isosorbide Mononitrate 60 mg tablet extended release 24 hr Active 60 MG PO Daily July 25, 2024 12:00a m Unknown Metoprolol Succinate 50 mg tablet extended release 24 hr Discont inued 50 MG PO Twice daily July 25, 2024 12:00a m Octob er 2024 10:44 am Cyclobenzap rine 10 mg tablet Discont inued 5 MG PO Every 6 hours as needed for muscle spasm July 25, 2024 12:00a m [facility] 2024 4:14p m Dupilumab (Dupixent Syringe) 100 mg/0.67 mL syringe Active 300 MG SUBCUT EVERY 2 WEEKS July 25, 2024 12:00a m Unknown Cholecalcif manjit (Vitamin D3) 50 mcg (2,000 unit) capsule Active 50 MCG PO Daily July 25, 2024 12:00a m Unknown Cyclobenzap rine 10 mg tablet Active 10 MG PO Three times daily as needed for muscle spasm 2024 4:11pm Unknown Furosemide 40 mg tablet Active 40 MG PO Daily 2024 12:00a m Unknown Pantoprazol e 40 mg tablet,jeremy yed release (DR/EC) Active MG PO 2024 12:00a m Unknown Metoprolol Tartrate 25 mg tablet Active 25 MG PO Twice daily Octobe r 2024 12:00a m Unknown Relevant Diagnostic Tests and/or Laboratory Data Laboratory Results Test Collection Date/Time Result Date/Time Result Interpretation Reference Range Result Comment Performing Site Anion Gap December 07, 2024 1:03pm December 07, 2024 1:03pm 10.5 BUN/Creatini ne Ratio December 07, 2024 1:03pm December 07, 2024 1:03pm 16.0 Blood Urea Nitrogen December 07, 2024 1:03pm December 07, 2024 1:03pm 26.0 mg/dL Above high normal 7.0-18.0 Calcium Level December 07, 2024 1:03pm December 07, 2024 1:03pm 8.6 mg/dL 8.5-10.1 Chloride Level December 07, 2024 1:03pm December 07, 2024 1:03pm 101 mmol/L 98-107 Carbon Dioxide Level December 07, 2024 1:03pm December 07, 2024 1:03pm 29.0 mmol/L 21.0-32.0 Creatinine December 07, 2024 1:03pm December 07, 2024 1:03pm 1.62 mg/dL Above high normal 0.55-1.02 Estimated GFR () December 07, 2024 1:03pm December 07, 2024 1:03pm 38 Below low normal >=60 mL/min/1.7 3m 2 Estimated GFR (Non- December 07, 2024 1:03pm December 07, 2024 1:03pm 31 Below low normal >=60 mL/min/1.7 3m 2 Glucose Level December 07, 2024 1:03pm December 07, 2024 1:03pm 106 mg/dL 74-106 Potassium Level December 07, 2024 1:03pm December 07, 2024 1:03pm 4.5 mmol/L 3.5-5.1 Sodium Level December 07, 2024 1:03pm December 07, 2024 1:03pm 136 mmol/L 136-145 Vital Signs Vital Reading Result Reference Range Collection Date/Time Height 63 [in_i] November 01 10:50am Weight 88.45 kg November 01 10:50am Heart Rate 65 /min 60-100 November 01 1:15pm Respiratory rate 16 /min 12-24 November 01, 2024 1:15pm Oxygen saturation by Pulse oximetry 99 % 95-100 November 01, 2024 1:1 5pm BP Systolic 122 mm[Hg] 100-140 November 01 1:15pm BP Diastolic 84 mm[Hg] 60-100 November 01 1:15pm Height 62 [in_i] December 25, 2024 3:13pm [...] (Body Mass Index) 36.1 kg/m2 2024 3:13pm Height 62 [in_i] December 28 10:42am Weight 89.35 kg December 28 10:42am Heart Rate 77 /min 60-100 December 28 10:42am BP Systolic 95 mm[Hg] 100-140 December 28 10:42am BP Diastolic 65 mm[Hg] 60-100 December 28 10:42am BMI (Body Mass Index) 36.0 kg/m2 Octobe r 2024 10:42am Advance Directives Advance Directive Response Recorded Date/ Time Advance Directives No November 16, 2023 9:54am Insurance Providers Guarantor Susana Juares Address [address] [address] Contact Info. Home Phone: Payer Policy Id Subscriber's Name Subscriber Id Effectiv e Date Expiration Date [employer] [facility] [id number] Susana Juares [id number] Encounters Encounter Location(s) Arrival/Admit Date Discharge/Depart Date Provider(s) Non-patient / Non-visit -[facility] November 01, 2024 10:27am Lisa Perez MD Non-patient / Non-visit -[facility] Professional Ms December 07, 2024 1:03pm KARO Crum Departed Physician/Prov ider Office Visit -[facility] Family Medicine Roger December 25, 2024 2:32pm December 25, 2024 3:38pm KARO Webster Departed Physician/Prov ider Office Visit -[facility] December 28, 2024 10:37am December 28, 2024 11:05am Lisa Perez MD Recent Diagnosis Onset Date Admit Date 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 Unknown December 25, 2024 2:32pm Essential hypertension Unknown December 25, 2024 2:32pm GERD without esophagitis Unknown Septemb er 2024 2:32pm Mixed hyperlipidemia Unknown November [id number] 2:32pm Morbid (severe) obesity due to excess calories U nknown December 25, 2024 2:32pm Stage 3b chronic kidney disease Unknown December 25, 2024 2:32pm Type 2 diabetes mellitus without complication Un known December 25, 2024 2:32pm Constipation Unknown December 28 10:37am Diverticular stricture Unknown December [id number] 10:37am GERD without esophagitis Unknown December 28, 2024 10:37am Nausea & vomiting Unknown December 28 10:37am Assessments Author Lisa [facility] Authored December 28, 2024 11 :00am 69-year-old female referred to GI clinic for evaluation of recurrent nausea and vomiting. Colonoscopy on 11/01/2024 showed colonic polyps diverticulosis diverticular stricture (which could not be passed using colonoscope so gastroscope was used to perform the procedure), internal hemorrhoids. + Recurrent nausea and vomiting + Persistent constipation despite taking Metamucil daily and MiraLAX twice a day Patient was recommended to avoid dehydration, increase MiraLAX to 3 times daily and titrate up if needed for a goal of 1 bowel movement a day Will arrange for EGD Patient has CKD so cannot do CT with contrast, will arrange for ultrasound of the upper abdomen. Plan of Treatment Author Nolvia Jimenez [facility] Authored December 25, 2024 3:43pm Please check blood pressure daily and record DASH diet Limit caffeine Take medication as directed Contact office if chest pain, pressures, dizziness, shortness of breath, swelling in the legs Recommend slow position changes if you develop dizziness with position changes current meds: b shyam, arb on asa, statin, b shyam, imdur follows with [facility] cardiology I have advised that she should reach out to cardiology about diuretic therapy, and that missing even a few doses could cause an acute heart failure episode Recommendations: freq small meals, nothing to eat or drink at least 2 hours prior to bed, limit caffeine, alcohol, as well as spicy foods. Meds to limit or avoid if possible: NSAIDS Elevate the HOB if possible current meds: Pantoprazole will await her fu appt on statin check labs yearly and prn [...] and DM avoid nephrotoxic drugs if possible continue with nephrology Discussed with patient their BMI (actual vs recommended). We have discussed lifestyle modifications: attempts to perform phsyical activity as chronic conditions allow, monitor dietary intake: increasing protein/fruits/veggies and lowering carb intake (unless contraindicated). Limit sodas, juices, sugary drinks, as well as alcohol consumption. Future Tests Future scheduled test information is unavailable Pending Tests Test Name Ordered Date Scheduled Date US abdomen limited December 28, 2024 10:54am Future Visits Future appointment information is unavailable Referrals to Other Providers Referral information is unavailable Future Procedures Procedure Name Ordered Date Scheduled Date Discharge Order November 01, 2024 12:44pm November 01, 2024 12:44pm Future Medications Future medication information is unavailable Patient Instructions Instruction Admit Date Colon Stricture (DC) [facility] Diverticulosis Discharge Instructions [facility] Hemorrhoids Discharge Instructions Know your Meds [facility] Colon Polypectomy Discharge Instructions November 01, 2024 10:27am
--- OUTSIDE RECORDS SUMMARY | 2025-01-03 11:42 | XMS_ITS | CCD ---
Author Organization [facility] CliniSyfl Care Team Providers Care Shell Molder Name Role Phone Jackelyn Diggs Unavailable JACKELYN DIGGS Attending Unavailable MARIO DIGGSIZ Admitting Unavailable HOUSE, DR CASTILLO Primary Care Unavailable WEST, DR TIMOTHY Chandler Consulting Unavailable SAMSA ., LUIS Consulting Unavailable PASTORA, JACKELYN Consulting Unavailable SAMSA ., LUIS Consulting [...] Care Unavailable SAMSA ., LUIS Attending Unavailable WEST, DR TIMOTHY Chandler Consulting Unavailable HOUSE, DR CASTILLO Primary Care Unavailable SAMSA ., LUIS Admitting Unavailable SAMSA ., LUIS Consulting Unavailable HOUSE, DR CASTILLO Admitting Unavailable HOUSE, DR CASTILLO Primary Care Unavailable HOUSE, DR CASTILLO Consulting Unavailable HOUSE, DR CASTILLO Attending Unavailable BAKHOUS, MARIOIZ Consulting Unavailable ASHS, MARIOIZ Attending Unavailable ASHS, MARIOIZ Admitting Unavailable HOUSE, DR CASTILLO Primary Care Unavailable [facility], DR HUANG Consulting Unavailable [facility], DR HUANG Attending Unavailable HOUSE, DR CASTILLO Primary Care Unavailable [facility], [place], DR HUANG Admitting Unavailable SAMSA ., LUIS Consulting Unavailable SAMSA ., LUIS Attending Unavailable SAMSA ., LUIS Admitting Unavailable HOUSE, DR CASTILLO Primary Care Unavailable HOUSE, DR CASTILLO Consulting Unavailable SAMSA ., LUIS Consulting Unavailable MD Jackelyn Diggs Attending Provider [phone] MD Jackelyn Diggs Referring Provider KARO Cheng Primary Care Provid er Ric COTE, Altamirano Unavailable Trace Kelly MD Primary Care Provider Skylar OBEDIENCE TRAINER, Shanda Unavailable Trace Kelly MD Primary Care Provider Skylar OBEDIENCE TRAINER, Shanda Unavailable Skylar OBEDIENCE TRAINER, Shanda Unavailable Nolvia Jimenez Attending Provider [phone] Ana COTE, Imkai Attending Provider [phone] Ana COTE, Imkai Other Provider Nolvia Jimenez Primary Care Provider Asaad, Imad Admitting Unavailable Asaad, Imad Attending Unavailable Nolvia Jimenez Primary Care Unavailable Nolvia Jimenez Admitting Unavailable Nolvia Jimenez Attending Unavailable Bakhous, Aziz Admitting Unavailable Bakhous, Aziz Attending Unavailable Ashs, Aziz Referring Unavailable Shanda Cheng Primary Care Unavaila ble SHANDA CHENG Attending Unavailabl e SHANDA CHENG Attending Unavailabl e PAULINAHNOLVIA GARCIA Attending Unavailable NOLVIA JIMENEZ Attending Unavailable PAULINAHNOLVIA GARCIA Attending Unavailable NOLVIA JIMENEZ Attending Unavailable SHANDA CHENG Attending Unavailabl e HORANI, KIRSTEN Referring Unavailable ZACK LUU Attending Unavailable [facility], [facility]AB Attending Unavailable [facility], EHAB Attending Unavailable [facility] Referring Unavailable XANDER SEQUEIRA Attending Unavailable XANDER SEQUEIRA Attending Unavailable ZACK LUU Attending Unavailable HORANI, KIRSTEN Referring Unavailable HORANI, KIRSTEN Referring Unavailable ELTAHAWY, EHAB Admitting Unavailable [facility] Attending Unavailable GRISELDA HARVEY Referring Unavailable HORANI, KIRSTEN Admitting Unavailable RHEA MANNING Attending Unavailable HORANI, KIRSTEN Referring Unavailable Aichholz OBEDIENCE TRAINER-CNolvia Primary Care Provider Jus QURESHIC, Zack Guerrier Attending Provider Tony HUDDLESTON, Nolvia Monique Attending Provider [phone] Allergies Allergy Classification Reported Allergen(s) Allergy Type Date of Onset Reaction(s) Facility (20 sources) clopidogrel; Translations: [CLOPIDOGREL] Drug Allergy [facility] (10 sources) hydroCHLOROthiazide; Translations: [HYDROCHLOROTHIAZIDE] Drug Allergy rash [facility] (3 sources) Penicillin; Translations: [penicillin] Drug Allergy [facility] (20 sources) Vancomycin; Translations: [VANCOMYCIN] Drug Allergy anaphylaxis [facility] (2 sources) Substance with sulfonamide structure and antibacterial mechanism of action (substance) Drug allergy Unknown [facility] Other (1 source) clopidogrel Drug Allergy [facility] (1 source) hydroCHLOROthiazide Drug Allergy [facility] (1 source) Vancomycin Drug Allergy [facility] (20 sources) Penicillins; Translations: [Penicillins] Allergy to substance [facility] (9 sources) Sulfonamides (Antibiotic); Translations: [Sulfa (Sulfonamide Antibiotics)] Allergy to substance Unknown Reaction [facility] (20 sources) hydroCHLOROthiazide Drug Allergy [facility] (20 sources) Sodium Chloride; Translations: [SODIUM CHLORIDE] Drug Allergy [facility] (20 sources) Sulfacetamide Drug Allergy [facility] (1 source) clopidogrel Drug Allergy [facility] Rep[facility] (1 source) hydroCHLOROthiazide Drug Allergy [facility] (1 source) Vancomycin Drug Allergy [facility] Repository Medications Current Medications Medication Drug Class(es) Dates Sig (Normalized) Sig (Original) [id number] 200 actuat albuterol 0.09 mg/actuat metered dose inhaler (20 sources) beta2-Adrenergic Agonist Start: 11-16-2023 take 1 puff(s) by inhalation every four hours Start: 08-09-2023 End: 06-08-2024 albuterol (2.5 MG/3ML) [...] by inhalation every six hours as needed ipratropium-albu terol (Duo-Neb) 0.5-2.5 mg/3 mL nebulizer solution Take 3 mL by nebulization every 6 (six) hours Active aspirin 81 mg delayed release oral tablet (20 sources) Platelet Aggregation Inhibitor, Nonsteroidal Anti-inflammatory Drug Start: 11-16-2023 take 1 tablet by mouth once daily atorvastatin 80 mg oral tablet (20 sources) HMG-CoA Reductase Inhibitor Start: 10-14-2023 End: 04-08-2025 take 1 tablet by mouth once daily at bedtime take 1 tablet by rebecca th every [...] take 1 capsule by mouth once daily Start: 01-18-2024 take 1 tablet by rebecca [...] Discontinued (Reorder) take 1 capsule by mo [facility] once daily Cholecalciferol 25 MCG (1000 UT) 1 capsule Orally Once a day for 90 days Active cyclobenzaprine hydrochlorid e 10 mg oral tablet (20 sources) Muscle Relaxant Start: 12-22-2024 take 1 tablet by mouth three times daily as needed for muscle spasms Start: 07-25-2024 End: 12-22-2024 take 5 mg by mouth every six hours as needed for muscle spasms Cyclobenzaprine 10 mg tablet Discontinued 5 MG PO Every 6 hours as needed for muscle spasm July 25, 2024 12:00am December 22, 2024 4:14pm Start: 06-08-2024 End: 06-23-2024 take 0.5 tablet [...] take 1 tablet by mouth once daily 2 ml dupilumab 150 mg/ml auto-injector (20 sources) Interleukin-4 Receptor alpha Antagonist Dupilumab (Dupixent) 300 MG/2ML solution auto-injector as directed Subcutaneous Active Dupilumab (5 sources) Start: 07-25-2024 Start: 07-25-2024 Dupilumab (Dup ixent Syringe) 100 [...] 1 puff Inhalation Twice a day Active Yapwbglgmja-Pzlbgxyoj-Fzbgkt er (20 sources) Anticholinergic, Corticosteroid, beta2-Adrenergic Agonist Start: 10-18-2024 Start: 10-18-2024 Fluticasone-Um eclidin-Vilanter (Trelegy Ellipta) 100-62.5-25 mcg blister with device Active 1 INH INHALATION Daily October 18, 2024 12:00am Complies with 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 Start: 05-23-2024 take 1 puff(s) by inhalation once daily Trelegy Ellipta 100-62.5-25 MCG/ACT aero annie powder Inhale 1 puff 1 (one) time each day at the same time 05/23/2024 Active furosemide 40 mg oral tablet (20 sources) Loop Diuretic Start: 12-22-2024 take 1 tablet by rebecca th once daily Start: 02-08-2024 End: 12-22-2024 Furosemide 20 mg tablet Disc ontinued 30 MG PO Every 48 hours February 08, 2024 2:49pm December 22, 2024 4:12pm Start: 02-08-2024 Furosemide 20 mg tablet Active 20 MG PO Every 48 hours February 08, 2024 2:49pm Start: 11-16-2023 End: 02-08-2024 take 1 tablet by mouth once daily Furosemide 20 mg tablet Discontinued 20 MG PO Daily November 16, 2023 12:00am February 08, 2024 2:50pm take 1 tablet by rebecca th once daily furosemide (Lasix) 40 MG tablet [...] Vasodilator Start: 04-20-2024 take 1 tablet by rebecca th once daily, then take 1 tablet by mouth every twenty-four hours Start: 11-16-2023 End: 07-25-2024 take 1 tablet [...] Active magnesium oxide 400 mg oral tablet (8 sources) Start: 11-16-2023 take 1 tablet by rebecca th twice daily take 1 tablet by rebecca th every twelve hours Magnesium Oxide 400 MG 1 TABLET Orally TWICE A DAY Active metoprolol tartrate 25 mg oral tablet (20 sources) beta-Adrenergic Shyam Start: 12-28-2024 take 1 tablet by mouth twice daily Start: 09-05-2024 take 1 tablet by rebecca th every twenty-four hours in the morning metoprolol succinate XL (Toprol-XL) 50 MG 24 hr tablet Take 50 mg by mouth in the morning and 50 mg before bedtime. 09/05/2024 Active Start: 07-25-2024 End: 12-28-2024 take 1 tablet by mouth twice daily Metoprolol Succinate 50 mg tablet extended release 24 hr Discontinued 50 MG PO Twice daily July 25, 2024 12:00am December 28, 2024 10:44am Start: 07-25-2024 take 1 tablet by rebecca [...] take 1 tablet by mouth once daily [employer] device (3 sources) Start: 10-18-2024 [employer] device Active 0 .ROUTE October 18, 2024 12:00am As directed pantoprazole 40 mg delayed release oral tablet (6 sources) Proton Pump Inhibitor Start: 11-13-2024 End: 02-11-2025 triamcinolone acetonide 5 mg/ml topical cream (1 [...] in the morning. 06/08/2024 Discontinued (Therapy completed) omeprazole 20 mg delayed release oral capsule (20 sources) Proton Pump Inhibitor Start: 11-16-2023 End: 12-22-2024 take 1 capsule by mouth once daily Omeprazole 20 mg capsule,delayed release(DR/EC) Discontinued 20 MG PO Daily November 16, 2023 12:00am December 22, 2024 4:13pm End: 11-13-2024 take 1 tablet by mouth before mealtime omeprazole OTC (PriLOSEC OTC) 20 MG EC tablet Take 20 mg by mouth in the morning. Take before meals. Do not crush, chew, or split.. 11/13/2024 Discontinued (Therapy completed) take 1 capsule by mo [facility] once daily Omeprazole 20 MG 1 capsule 30 minutes before morning meal Orally Once a day Active prasugrel 10 mg oral tablet (12 sources) P2Y12 Platelet Inhibitor Start: 11-16-2023 End: 02-08-2024 take 1 tablet by mouth once daily Prasugrel Hcl 10 mg tablet Discontinued 10 MG PO Daily November 16, 2023 12:00am February 08, 2024 2:49pm predniSONE 10 mg oral tablet (20 sources) Start: 06-07-2024 End: 12-22-2024 take 1 tablet by mouth once daily Prednisone 10 mg tablet Discontinued 10 MG PO Daily July 25, 2024 12:00am December 22, 2024 4:13pm Start: 11-16-2023 End: 07-25-2024 take 1 tablet [...] Discontinued (Therapy completed) Sod Picosulf-Mag Ox-Citric Ac (3 sources) Start: 10-17-2024 End: 11-01-2024 take 1 dose [...] Date Documented Da te Episodic/Chronic Abdominal pain (8 sources) Epigastric pain; Translations: [Epigastric pain] Onset: [...] Onset: 7 Chronic Congestive heart failure; nonhypertensive (20 sources) Heart failure; Translations: [Heart failure, unspecified] Onset: 5 10-10-2024 Chronic Coronary atherosclerosis and other heart disease (20 sources) Atherosclerotic heart disease of samish coronary artery without angina pectoris; Translations: [Coronary arteriosclerosis] Onset: 7 Chronic Deficiency and other anemia (5 sources) Anemia, unspecified; Translations: [Anemia, unspecified] Episodic Deficiency and other anemia (7 sources) Anemia; Translations: [Anemia, unspecified] 11-13-2023 Episodic [...] Resolved: 5 04-12-2023 Chronic E Codes: Natural/environment (11 sources) Insect bite - wound; Translations: [Bitten or stung by nonvenomous insect and other nonvenomous arthropods, initial encounter] Onset: 5 10-18-2024 Episodic Esophageal disorders (11 sources) Gastroesophageal reflux disease without esophagitis; Translations: [Gastro-esophageal reflux disease without esophagitis] Onset: 5 11-13-2024 Chronic Essential hypertension (20 sources) Essential hypertension; Translations: [Essential (primary) hypertension] Onset: 7 Resolved: 5 04-12-2023 Chronic Fluid and electrolyte disorders (20 sources) Hyperkalemia; Translations: [Hypo-osmolality and hyponatremia] Onset: 3 Episodic Hypertension with complications and secondary hypertension (20 sources) Hypertensive renal disease; Translations: [Hypertensive chronic kidney disease with stage 1 through stage 4 chronic kidney disease, or unspecified chronic kidney disease] Onset: 2 Chronic Intestinal obstruction without hernia (2 sources) Stricture of intestine; Translations: [Other intestinal obstruction unspecified as to partial versus complete obstruction] 12-28-2024 Episodic Nausea and vomiting (1 source) Nausea and vomiting; Translations: [Nausea with vomiting, unspecified] 12-28-2024 Episodic Nutritional deficiencies (13 sources) Vitamin D deficiency; Translations: [Vitamin D deficiency, unspecified] Chronic Other endocrine disorders (5 sources) Hyperparathyroidism; Translations: [Hyperparathyroidism, unspecified] 07-25-2024 Chronic Other endocrine disorders (2 sources) Hyperparathyroidism, unspecified; Translations: [Hyperparathyroidism, unspecified] 07-25-2024 Chronic Other gastrointestinal disorders (20 sources) Constipation; Translations: [Other constipation] Onset: 5 10-10-2024 Episodic Other gastrointestinal disorders (15 sources) Stool DNA-based colorectal cancer screening positive; [...] Episodic Other nutritional; endocrine; and metabolic disorders (7 sources) Hyperuricemia; Translations: [Hyperuricemia without signs of inflammatory arthritis and tophaceous disease] 11-13-2023 Episodic Other screening for suspected conditions (not mental disorders or infectious disease) (20 sources) Elevated C-reactive protein; Translations: [Elevated C-reactive protein (CRP)] Onset: 5 07-26-2024 Episodic Pneumonia (except that caused by tuberculosis or sexually transmitted disease) (20 sources) Right lower zone pneumonia; Translations: [Pneumonia, unspecified organism] Onset: 5 09-06-2024 Episodic Residual codes; unclassified (2 sources) Localized edema; Translations: [Localized edema] Onset: Episodic Respiratory failure; insufficiency; arrest (adult) (18 sources) Chronic respiratory failure; Translations: [Chronic respiratory failure, unspecified whether with hypoxia or hypercapnia] Onset: 5 10-10-2024 Chronic Respiratory failure; insufficiency; arrest (adult) (20 sources) Acute respiratory failure; Translations: [Acute respiratory failure with hypoxia] Onset: 5 09-06-2024 Episodic Screening and history of mental health and substance abuse codes (20 sources) Personal history of nicotine dependence; Translations: [Ex-smoker] Onset: 0 Episodic Spondylosis; intervertebral disc disorders; other back problems (20 sources) Low back pain; Translations: [Lower back pain] Onset: 7 04-12-2023 Episodic Unclassified (1 source) Other ventricular tachycardia; Translations: [Other ventricular tachycardia] Onset: 3 Past or Other Problems Problem Classification Problem Date Documented Da te Episodic/Chronic Nonspecific chest pain (4 sources) Other chest pain; Translations: [Chest pain, unspecified] Onset: 10-30-2022 Episodic Unclassified (1 source) Other ventricular tachycardia; Translations: [Other ventricular tachycardia] Onset: 11-20-2024 Results Test Name Value Interpretation Reference Range Facility Glomerular filtration rate ( GFR) estimation in non- AmericanOrdered By: Zack Luu on 12-07-2024 GFR/1.73 sq M.predicted among non-blacks MDRD (S/P/Bld) [Vol rate/Area] 31 mL/min/{1.73_m2} Low >=60 mL/min/1.73m 2 [facility] Laboratory - Chemistry and C hemistry - challengeOrdered By: Zack Luu on 12-07-2024 Calcium [Mass/Vol] 8.6 mg/dL 8.5-10.1 [facility] Chloride [Moles/Vol] 101 mmol/L 98-107 [facility] CO2 [Moles/Vol] 29.0 mmol/L 21.0-32.0 [facility] Creatinine [Mass/Vol] 1.62 mg/dL High 0.55-1.02 [facility] GFR/1.73 sq M.predicted MDRD (S/P/Bld) [Vol rate/Area] 38 mL/min/{1.73_m2} Low >=60 mL/min/1.73m 2 [facility] Glucose [Mass/Vol] 106 mg/dL 74-106 [facility] Potassium [Moles/Vol] 4.5 mmol/L 3.5-5.1 [facility] Sodium [Moles/Vol] 136 mmol/L 136-145 [facility] Urea nitrogen [Mass/Vol] 26.0 mg/dL High 7.0-18.0 [facility] Urea nitrogen/Creatinine [Mass ratio] 16.0 mg/mg [facility] Serum or plasma anion gap de terminationOrdered By: Zack Luu on 12-07-2024 Anion gap [Moles/Vol] 10.5 mmol/L [facility] 36on 12-04-2024 36 Patient called with BP's [...] edema, even after increase in lasix. Normal [facility] Orders Onlyon 12-04-2024 Orders Only [id number] Chiara Eduardo 1955 F Date Provider Department Center 12/04/2024 ZACK GREENE Family History Problem Relation Age of Onset Stroke Mother Kidney disease Father Coronary artery disease Paternal Grandfather Family Status - Relation Status Age at Mother Father Paternal Grandfather Normal [facility] Office Visiton 11-20-2024 Follow-up visit [id number] Chiara Eduardo 1955 F Date Provider Department Center 11/20/2024 ZACK GREENE Family History Problem Relation Age of Onset Stroke Mother Kidney disease Father Coronary artery disease Paternal Grandfather Family Status - Relation Status Age at Mother Father Paternal Grandfather Level of Service:43125 [place] OFFICE/OUTPATIENT ESTABLISHED MOD MDM 30 MIN Normal [facility] ALL CBC WITH AUTO DIFFon BASOPHILS ABSOLUTE AUTO 0.1 [facility] Basophils/100 WBC (Bld) 0.7 % 0.2 - 2.0 % [facility] Eosinophils/100 WBC (Bld) 1.3 % 0.9 - 7.0 % [facility] Erythrocyte distribution width (RBC) [Ratio] 14 % 11.0 - 15.0 % [facility] Hematocrit (Bld) [Volume fraction] 37.8 % 36.0 - 48.0 % [facility] Hemoglobin (Bld) [Mass/Vol] 12.5 g/dL 12.0 - 16.0 g/dL [facility] IMMATURE GRANULOCYTES ABS AUTO 0.03 [facility] Immature granulocytes/100 WBC (Bld) 0.4 % 0.0 - 0.5 % [facility] Interpretation and review of laboratory results Abnormal [facility] LYMPHOCYTES ABSOLUTE AUTO 1.3 [facility] Lymphocytes/100 WBC (Bld) 18.5 % Low 20.5 - 60.0 % [facility] MCH (RBC) [Entitic mass] 30.2 pg 26.7 - 34.0 pg [facility] MCHC (RBC) [Mass/Vol] 33.1 g/dL 29.9 - 35.2 g/dL [facility] MCV (RBC) [Entitic vol] 91.3 fL 81.0 - 99.0 fL [facility] MONOCYTES ABSOLUTE AUTO 0.5 [facility] Monocytes/100 WBC (Bld) 7.6 % 1.7 - 12.0 % [facility] NEUTROPHILS ABSOLUTE AUTO 4.9 [facility] Neutrophils/100 WBC (Bld) 71.5 % 43.0 - 75.0 % [facility] Platelet mean volume (Bld) [Entitic vol] 9.8 fL 9.5 - 13.5 fL [facility] EO # 0.1 [facility] PLT 337 [facility] RBC 4.14 Low [facility] WBC 6.8 [facility] MICROALB CREAT RATIO RAN DOMon 11-15-2024 CREATININE URINE RANDOM 24.83 mg/dL 20.0 0 - 300.00 mg/dL [facility] Interpretation and review of laboratory results Abnormal [facility] MICROALBUM CREATININE RATIO UR 52.3 mg/g High 0.0 - 29.9 mg/g [facility] Comment on above: NO MICROALBUMINURIA 0-29 MG/G CLINICAL MICROALBUMINURIA 30-300 MG/G MACROALBUMINURIA >300 MG/G MICROALBUMIN URINE RANDOM <1.3 NINF - 30.0 mg/dL [facility] 36on 11-09-2024 36 My chart request for refills Normal [facility] ALL BASIC METABOLIC PANELon 11-08-2024 Anion gap [Moles/Vol] 13.3 mmol/L [facility] Calcium [Mass/Vol] 9 mg/dL 8.5 - 10. 1 mg/dL [facility] Chloride [Moles/Vol] 98 mmol/L 98 - 10 7 mmol/L [facility] CO2 [Moles/Vol] 27.8 mmol/L 21.0 - 32.0 mmol/L [facility] Creatinine [Mass/Vol] 1.42 mg/dL High 0.55 - 1.02 mg/dL [facility] GFR/1.73 sq M.predicted CKD-EPI (S/P/Bld) [Vol rate/Area] 44 Low >=60 mL/min/1.73m 2 [facility] Glucose [Mass/Vol] 88 mg/dL 74 - 106 mg/dL [facility] Interpretation and review of laboratory results Abnormal [facility] Potassium [Moles/Vol] 4.1 mmol/L 3.5 - 5.1 mmol/L [facility] Sodium [Moles/Vol] 135 mmol/L Low 136 - 145 mmol/L [facility] TBH EGFR-NON AF MALAYSIAN 36 Low >=60 mL/min/1.73m 2 [facility] Urea nitrogen [Mass/Vol] 21 mg/dL High 7.0 - 18.0 mg/dL [facility] Urea nitrogen/Creatinine [Mass ratio] 14.8 mg/mg [facility] ITPon 11-03-2024 [place] [address] Cardiac Rehab Report Signed Patient: CHIARA EDUARDO MR#: [id number] : 1955 Acct:[id number] Age/Sex: 69 / F ADM Date: 10/05/24 Loc: CR Attending Dr: Abyb Azevedo M.D. Ordering Physician: Abby Azevedo M.D. Date of Service: 10/23/24 Procedure(s): ITP Accession Number(s): [id number] cc: [facility] Test Date: 2024-10-23 Pat Name: CHIARA EDUARDO Department: Room: - Gender: Female Drug Enforcement Administration Agent: : 1955 Requested By: ABBY AZEVEDO Order Number: [id number] Dane MD: HERIBERTO ESTEVEZ M.D. Interpretive Statements Patient may continue cardiac rehab as outlined in the treatment plan. Electronically Signed On 11-03-2024 10:21:15 EDT by HERIBERTO ESTEVEZ M.D. Dictated By: HERIBERTO ESTEVEZ Signed By: 11/03/24 10211/03/24 1021 DD/ 1451 TD/TT: Tonsorial Artist: [facility] Radiology RadiologistMD - 11/03/2024 [place] [address] Cardiac Rehab Report Signed Patient: CHIARA EDUARDO MR#: [id number] : 1955 Acct:[id number] Age/Sex: 69 / F ADM Date: 10/05/24 Loc: CR Attending Dr: Abby Azevedo M.D. Ordering Physician: Abby Azevedo M.D. Date of Service: 10/23/24 Procedure(s): ITP Accession Number(s): [id number] cc: [facility] Test Date: 2024-10-23 Pat Name: CHIARA EDUARDO Department: Room: - Gender: Female Drug Enforcement Administration Agent: : 1955 Requested By: ABBY AZEVEDO Order Number: [id number] Dane MD: HERIBERTO ESTEVEZ M.D. Interpretive Statements Patient may continue cardiac rehab as outlined in the treatment plan. Electronically Signed On 11-03-2024 10:21:15 EDT by HERIBERTO ESTEVEZ M.D. Dictated By: HERIBERTO ESTEVEZ Signed By: 11/03/24102011/03/24 102 DD/ 1451 TD/TT: Tonsorial Artist: [facility] ITPOrdered By: Dick bhatia on 11-03-2024 [facility] Work Phone: Adam 11-01-2024 L - -------- Specimen: [id number] Received: 11/01/24 Status: SUMI Viviane Num: [id number] Spec Type: Surgical Subm Dr: Lisa Perez MD Tissues: A Colon Biopsy (CECAL POLYP) B Colon Biopsy (ASCENDING POLYP) C Colon Biopsy (SIGMOID POLYP) Procedures: HE/6, Gross/Micro L4/3 -------- Age/ Patient Sex Location Account Attending Physician -------- Chiara Eduardo 69/F [id number] Lisa Perez MD -------- SPEC NUM: [id number] RECD: 11/01/24 STATUS: SUMI LORENZ NUM: [id number] PIPE: 11/01/[address]: Lisa Perez MD ENTERED: 11/01/[address] [facility] [address]: SPEC TYPE: Surgical DEPT: S ENTERED BY: [id number] RECV BY: [id number] ORDERED: HE/6, Gross/Micro L4/3 ORDERED: HE/6, Gross/Micro [...] submitted in a single cassette. (1, ns, [id number]) J Part B is received in formalin labeled with the patients name, date of , and ascending polyp are 2 bazzi-viveros, focally erythematous, friable polypoid fragments, 1.2 x 0.5 x 0.2 cm in aggregate. The specimen is filtered and entirely submitted in a single cassette. (1, ns, -------- Specimen: [id number] Received: 11/01/24 Status: SUMI Lorenz Num: [id number] Spec Type: Surgical Subm Dr: Lisa Perez MD Tissues: A Colon Biopsy (CECAL POLYP) B Colon Biopsy (ASCENDING POLYP) C Colon Biopsy (SIGMOID POLYP) Procedures: HE/6, Gross/Micro L4/3 -------- Patient: Chiara Eduardo [id number] (Continued) -------- Specimen: [id number] Received: 11/01/24 (Continued) Gross Description (Continued) Signed (signature on file) Abram Martinez Jr., MD 11/02/24 1154 -------- Specimen: [id number] Received: 11/01/24 Status: SUMI Viviane Num: [id number] Spec Type: Surgical Subm Dr: Lisa Perez MD Tissues: A Colon Biopsy (CECAL POLYP) B Colon Biopsy (ASCENDING POLYP) C Colon Biopsy (SIGMOID POLYP) Procedures: CHILANGO/Gray German/Micro L4/3 -------- Patient: Chiara Eduardo [id number] (Continued) -------- Specimen: [id number] Received: 11/01/24 (Continued) Gross Description (Continued) B) [...] is retained. (1, ns, C) CPT Codes 44201 x 3 -------- -------- Specimen: [id number] Received: 11/01/24 Status: USMI Lorenz Num: [id number] Spec Type: Surgical Subm Dr: Lisa Perez MD Tissues: A Colon Biopsy (CECAL POLYP) B Colon Biopsy (ASCENDING POLYP) C Colon Biopsy (SIGMOID POLYP) Procedures: HE/6, Gross/Micro L4/3 -------- Patient: Chiara Eduardo [id number] (Continued) -------- Signed (signature on file) Abram Martinez Jr., MD 11/02/[address] [facility] ITPon 10-23-2024 Radiology Study observation (narrative) [facility] 36on 10-11-[address] Azevedo regarding labs from yesterday: MD Milli Luevano, CHING Serum creatinine has increased from above 2 to 1.51. Please repeat a BMP in 2 weeks. Thank you. I spoke with patient earlier today and asked her to get BMP in 2 weeks. Order faxed earlier today. Normal [facility] 36on 10-10-2024 36 Patient's PCP, Nolvia Jimenez, MIX MAKER - called me regarding this patient. She saw her today in the office. Patient told Nolvia that she noticed increased SOB and LE edema when spironolactone was stopped last week. She did have repeat BMP tpday (scanned into chart). Nolvia did send her over just now to [facility] for CXR. Any recommendations? Normal [facility] ALL BASIC METABOLIC PANELon 10-10-2024 Anion gap [Moles/Vol] 12.5 mmol/L [facility] Calcium [Mass/Vol] 8.9 mg/dL 8.5 - 10. 1 mg/dL [facility] Chloride [Moles/Vol] 100 mmol/L 98 - 10 7 mmol/L [facility] CO2 [Moles/Vol] 27.6 mmol/L 21.0 - 32.0 mmol/L [facility] Creatinine [Mass/Vol] 1.51 mg/dL High 0.55 - 1.02 mg/dL [facility] GFR/1.73 sq M.predicted CKD-EPI (S/P/Bld) [Vol rate/Area] 41 Low >=60 mL/min/1.73m 2 [facility] Glucose [Mass/Vol] 100 mg/dL 74 - 106 mg/dL [facility] Interpretation and review of laboratory results Abnormal [facility] Potassium [Moles/Vol] 5.1 mmol/L 3.5 - 5.1 mmol/L [facility] Sodium [Moles/Vol] 135 mmol/L Low 136 - 145 mmol/L [facility] EGFR-NON AF MALAYSIAN 34 Low >=60 mL/min/1.73m 2 [facility] Urea nitrogen [Mass/Vol] 23 mg/dL High 7.0 - 18.0 mg/dL [facility] Urea nitrogen/Creatinine [Mass ratio] 15.2 mg/mg [facility] XR ABDOMEN 1Von 10-10-2024 [place] [address] XRay Report Signed Patient: CHIARA EDUARDO MR#: [id number] : 1955 Acct:[id number] Age/Sex: 69 / F ADM Date: 10/10/24 Loc: RAD Attending Dr: Nolvia Jimenez NP Ordering Physician: Nolvia Jimenez NP Date of Service: 10/10/24 Procedure(s): XR abdomen 1V Accession Number(s): [id number] cc: Nolvia Jimenez NP [place] [id number] Patient Name: CHIARA EDUARDO MRN: [facility]:[id number] date: 1955 Sex: F Assigned Patient Location: RAD Current Patient Location: RAD Accession/Order Number: [id number] Exam Date: 10/10/2024 17:01 Report Date: 10/10/2024 [...] Garcia M.D. 10/10/2024 5:03 PM Dictation Location: [place] [address] Electronically authenticated by: [id number] Y Date: 10/10/2024 17:03 Dictated By: Tahir Garcia M.D. Signed By: 10/10/241704 DD/ 02 TD/TT: Tonsorial Artist: [facility] Radiology, Radiologist, MD - 10/10/2024 [place] [address] XRay Report Signed Patient: CHIARA EDUARDO MR#: [id number] : 1955 Acct:[id number] Age/Sex: 69 / F ADM Date: 10/10/24 Loc: RAD Attending Dr: Nolvia Jimenez NP Ordering Physician: Nolvia Jimenez NP Date of Service: 10/10/24 Procedure(s): XR abdomen 1V Accession Number(s): [id number] cc: Nolvia Jimenez NP The [address] [address] Patient Name: CHIARA EDUARDO MRN: [facility]:[id number] date: 1955 Sex: F Assigned Patient Location: [facility] Current Patient Location: [facility] Accession/Order Number: [id number] Exam Date: 10/10/2024 17:01 Report Date: 10/10/2024 17:03 At the request of: NOLVIA J AICHHOLZ OBEDIENCE TRAINER Procedure: XR abdomen 1V XR abdomen 1V [...] Garcia M.D. 10/10/2024 5:03 PM Dictation Location: [place] [address] Electronically authenticated by: [id number] Y Date: 10/10/2024 17:03 Dictated By: Tahir Garcia M.D. Signed By: 10/10/241704 DD/ 02 TD/TT: Tonsorial Artist: [facility] [employer] Radiology Study observation (narrative) [facility] XR ABDOMEN 1VOrdered By: Rubio iologist Radiology on 10-10-2024 [facility] [employer] Work Phone: XR CHEST 2Von 10-10-2024 [place] [id number] XRay Report Signed Patient: CHIARA EDUARDO MR#: [id number] : 1955 Acct:[id number] Age/Sex: 69 / F ADM Date: 10/10/24 Loc: RUBIO Attending Dr: Nolvia Jimenez OBEDIENCE TRAINER Ordering Physician: Nolvia Jimenez NP Date of Service: 10/10/24 Procedure(s): XR chest 2V Accession Number(s): [id number] cc: Nolvia Jimenez NP [address] [address] Patient Name: CHIARA EDUARDO MRN: [id number] date: 1955 Sex: F Assigned Patient Location: RAD Current Patient Location: RAD Accession/Order Number: [id number] Exam Date: 10/10/2024 17:03 Report Date: 10/10/2024 [...] Garcia M.D. 10/10/2024 5:04 PM Dictation Location: [place] [address] Electronically authenticated by: [id number] Y Date: 10/10/2024 17:04 Dictated By: Tahir Garcia M.D. Signed By: 10/10/241705 DD/ 03 TD/TT: Tonsorial Artist: [facility] Radiology, Radiologist, MD - 10/10/[address] [address] XRay Report Signed Patient: CHIARA EDUARDO MR#: [id number] : 1955 Acct:[id number] Age/Sex: 69 / F ADM Date: 10/10/24 Loc: RAD Attending Dr: Nolvia Jimenez NP Ordering Physician: Nolvia Jimenez NP Date of Service: 10/10/24 Procedure(s): XR chest 2V Accession Number(s): [id number] cc: Nolvia Jimenez NP The [address] [address] Patient Name: CHIARA EDUARDO MRN: [facility]:[id number] date: 1955 Sex: F Assigned Patient Location: RAD Current Patient Location: RAD Accession/Order Number: [id number] Exam Date: 10/10/2024 17:03 Report Date: 10/10/2024 [...] Garcia M.D. 10/10/2024 5:04 PM Dictation Location: [place] [address] Electronically authenticated by: [id number] Y Date: 10/10/2024 17:04 Dictated By: Tahir Garcia M.D. Signed By: 10/10/241705 DD/ 03 TD/TT: Tonsorial Artist: [facility] Radiology Study observation (narrative) [facility] [employer] XR CHEST 2VOrdered By: [place] [employer] Radiology on 10-10-2024 [employer] Work Phone: ITPon 10-04-2024 [place] [address] Cardiac Rehab Report Signed Patient: CHIARA EDUARDO MR#: [id number] : 1955 Acct:[id number] Age/Sex: 69 / F ADM Date: 10/03/24 Loc: CR Attending Dr: Abby Azevedo M.D. Ordering Physician: Luis Schumacher D.O. Date of Service: 10/02/24 Procedure(s): ITP Accession Number(s): [id number] cc: [facility] Test Date: 2024-10-02 Pat Name: CHIARA EDUARDO Department: Room: - Gender: Female Drug Enforcement Administration Agent: : 1955 Requested By: Luis Schumacher Order Number: [id number] Reading MD: Luis Schumacher Interpretive Statements Okay to proceed with outlined treatment plan. Electronically Signed On 10-04-2024 10:08:06 EDT by Luis Schumacher Dictated By: Luis Schumacher D.O. Signed By: 10/04/24 1008 10/04/24 1008 DD/ 1145 TD/TT: Tonsorial Artist: [facility] Radiology, Radiologist, - 10/04/2024 [place] [address] Cardiac Rehab Report Signed Patient: CHIARA EDUARDO MR#: [id number] : 1955 Acct:[id number] Age/Sex: 69 / F ADM Date: 10/03/24 Loc: CR Attending Dr: Abby Azevedo M.D. Ordering Physician: Luis Schumacher D.O. Date of Service: 10/02/24 Procedure(s): ITP Accession Number(s): [id number] cc: [facility] Test Date: 2024-10-02 Pat Name: CHIARA EDUARDO Department: Room: - Gender: Female Drug Enforcement Administration Agent: : 1955 Requested By: Luis Schumacher Order Number: [id number] Dane MD: Luis Schumacher Interpretive Statements Okay to proceed with outlined treatment plan. Electronically Signed On 10-04-2024 10:08:06 EDT by Luis Schumacher Dictated By: Luis Schumacher D.O. Signed By: 10/04/248 10/04/24 1008 DD/ 1145 TD/TT: Tonsorial Artist: [place] [address] Cardiac Rehab Report Signed Patient: CHIARA EDUARDO MR#: [id number] : 1955 Acct:[id number] Age/Sex: 69 / F ADM Date: 10/03/24 Loc: CR Attending Dr: Abby Azevedo M.D. Ordering Physician: Luis Schumacher D.O. Date of Service: 10/03/24 Procedure(s): ITP Accession Number(s): [id number] cc: [facility] Test Date: 2024-10-03 Pat Name: CHIARA EDUARDO Department: Room: - Gender: Female Drug Enforcement Administration Agent: : 1955 Requested By: Luis Schumacher Order Number: [id number] Dane MD: Luis Schumacher Interpretive Statements Okay to proceed with outlined treatment plan. Electronically Signed On 10-04-2024 10:08:18 EDT by Luis Schumacher Dictated By: Luis Schumacher D.O. Signed By: 10/04/24 1008 10/04/24 1008 DD/ 1245 TD/TT: Tonsorial Artist: [facility] Radiology, Radiologist, MD - 10/04/2024 [place] [address] Cardiac Rehab Report Signed Patient: CHIARA EDUARDO MR#: [id number] : 1955 Acct:[id number] Age/Sex: 69 / F ADM Date: 10/03/24 Loc: CR Attending Dr: Abby Azevedo M.D. Ordering Physician: Luis Schumacher D.O. Date of Service: 10/03/24 Procedure(s): ITP Accession Number(s): [id number] cc: [facility] Test Date: 2024-10-03 Pat Name: CHIARA EDUARDO Department: Room: - Gender: Female Drug Enforcement Administration Agent: : 1955 Requested By: Luis Schumacher Order Number: [id number] Dane MD: Luis Schumacher Interpretive Statements Okay to proceed with outlined treatment plan. Electronically Signed On 10-04-2024 10:08:18 EDT by Luis Schumacher Dictated By: Luis Schumacher D.O. Signed By: 10/04/24 1008 10/04/24 1008 DD/ 1245 TD/TT: Tonsorial Artist: [facility] No Panel InformationOrdered By: Radiologist Radiology on 10-04-2024 [facility] Work Phone: 36on 10-03-2024 36 Spoke with patient and made her aware to stop spironolactone per Dr. Azevedo. She verbalized understanding and will do so. She will have repeat BMP on Wednesday, 10/09. Order faxed to [facility]. [facility] 36 Regarding lab result s from [...] her to stop both that and Farxiga? [facility] ALL BASIC METABOLIC PANELon 10-03-2024 Anion gap [Moles/Vol] 11.8 mmol/L [facility] Calcium [Mass/Vol] 9.1 mg/dL 8.5 - 10. 1 mg/dL [facility] Chloride [Moles/Vol] 96 mmol/L Low 98 - 10 7 mmol/L [facility] CO2 [Moles/Vol] 29.1 mmol/L 21.0 - 32.0 mmol/L [facility] Creatinine [Mass/Vol] 2.01 mg/dL High 0.55 - 1.02 mg/dL [facility] GFR/1.73 sq M.predicted CKD-EPI (S/P/Bld) [Vol rate/Area] 30 Low >=60 mL/min/1.73m 2 [facility] Glucose [Mass/Vol] 115 mg/dL High 74 - 106 mg/dL [facility] Interpretation and review of laboratory results Abnormal [facility] Potassium [Moles/Vol] 4.9 mmol/L 3.5 - 5.1 mmol/L [facility] Sodium [Moles/Vol] 132 mmol/L Low 136 - 145 mmol/L [facility] EGFR-NON AF MALAYSIAN 24 Low >=60 mL/min/1.73m 2 [facility] Urea nitrogen [Mass/Vol] 31 mg/dL High 7.0 - 18.0 mg/dL [facility] Urea nitrogen/Creatinine [Mass ratio] 15.4 mg/mg [facility] ITPon 10-03-2024 Radiology Study observation (narrative) [facility] Telephoneon 10-03-2024 Telephone [id number] Chiara Eduardo 1955 F Date Provider Department Center 10/03/2024 TiffanieMILLI BAZAN JUSTIN Garcia Family History Problem Relation Age of Onset Stroke Mother Kidney disease Father Coronary artery disease Paternal Grandfather Family Status - Relation Status Age at Mother Father Paternal Grandfather [facility] ITPon 10-02-2024 Radiology Study observation (narrative) [facility] Follow-Upon 09-22-2024 Follow-Up [id number] Chiara Eduardo 1955 F Date Provider Department Center 09/22/2024 [id number] ALBA JUSTIN Garcia Family History Problem Relation Age of Onset Stroke Mother Kidney disease Father Coronary artery disease Paternal Grandfather Family Status - Relation Status Age at Mother Father Paternal Grandfather Level of Service:54784 SD OFFICE/OUTPATIENT ESTABLISHED MOD MDM 30 MIN [facility] 30on 09-05-2024 30 The patient is [...] baseline comfort level Outcome: Adequate for Discharge [facility] 30 Marketing And Development Coordinator went bedside and talked with patient about home oxygen. Marketing And Development Coordinator asked if patient has any preference of home oxygen company. Patient stated she does not, and is agreeable to be set up with [facility] care solutions. Marketing And Development Coordinator called and talked with with Keny from [employer], Keny Confirmed they service patients area, and take patients insurance. Keny told real estate underwriter to fax over Clinicals and provide patient a portable tank. -- Clinicals gathered and faxed over at 11:25 am -- Marketing And Development Coordinator received confirmation fax. Marketing And Development Coordinator called [employer] office and talked with Brock. Marketing And Development Coordinator inform Brock that clinicals were faxed over and confirmation fax was received. Brock stated patient is not in their system yet but will keep a look of for it and will call patient back as soon as patient gets put into their system. Marketing And Development Coordinator provided call back number. Marketing And Development Coordinator called and talked to Nicole from [employer], She confirmed that they have everything they need and that real estate underwriter can give patient a portable oxygen tank to go home with, and for real estate underwriter to instruction patient to call them when she leaves the hospital. Marketing And Development Coordinator went bedside and provided portable oxygen tank to patient, Marketing And Development Coordinator educated patient on portable oxygen tank and on the need to call [employer] as soon as she leave the hospital. Patient stated she understands and had no other questions at this time. ------ Marketing And Development Coordinator received call from [employer] asking for discharge summery to be faxed over as well. Marketing And Development Coordinator faxed over discharge summery. Marketing And Development Coordinator received confirmation fax. Marketing And Development Coordinator called Jaqueline from [employer] to confirm they got discharge summery. Marketing And Development Coordinator was told that it hasn't arrived in there system yet but it can take some time. Marketing And Development Coordinator informed Jaqueline that patient has discharged and that patient will need equipment delivered today. Jaqueline stated they will still be able to deliver oxygen equipment today, they just need the Discharge summery as well. Marketing And Development Coordinator provided writers call back number to Jaqueline, if they need anything else. Marketing And Development Coordinator called and talked with Brock at [employer] who confirmed they got the discharge summery and everything is set to go for patient to get her home oxygen equipment tonight. Normal [facility] BASIC METABOLIC PANELon 08-27-2024 Anion gap [Moles/Vol] 9 mmol/L Normal 7-20 [facility] Comment on above: Performed By: #### L [id number] ####[facility] [place] [address] Calcium [Mass/Vol] 8.1 mg/dL Low 8.6-10.3 [facility] Comment on above: Performed By: #### L [id number] ####[facility] [place] [address] Chloride [Moles/Vol] 105 mmol/L Normal 98-107 [facility] Comment on above: Performed By: #### L [id number] ####[facility] [place] [address] CO2 [Moles/Vol] 24 mmol/L Normal 21-31 [facility] Comment on above: Performed By: #### L [id number] ####[facility] [place] [address] Creatinine [Mass/Vol] 1.24 mg/dL High 0.60-1.20 [facility] Comment on above: Performed By: #### L [id number] ####[facility] ([facility])[address] [place] [address] GLOMERULAR FILTRATION RATE ML/MIN/1.73 SQ M.PREDICTED 46.5 mL/min/1.73m*2 Low >60.0 [facility] Comment on above: Result Comment: [facility]???s estimated glomerular filtration rate (eGFR) will [...] of individuals. Performed By: #### L [id number] ####[facility] ([facility])[address] [place] [address] Glucose [Mass/Vol] 92 mg/dL Normal 70-100 [facility] Comment on above: Performed By: #### L [id number] ####[facility] ([facility])[address] [facility] [place] [address] Potassium [Moles/Vol] 4.2 mmol/L Normal 3.5-5.1 [facility] Comment on above: Performed By: #### L [id number] ####[facility] ([facility])[address] [place] [address] Sodium [Moles/Vol] 134 mmol/L Low 136-145 [facility] Comment on above: Performed By: #### L [id number] ####[facility] ([facility])[address] [place] [address] Urea nitrogen [Mass/Vol] 26 mg/dL High 7-25 [facility] Comment on above: Performed By: #### L [id number] ####[facility] ([facility])[address] [place] [address] UREA NITROGEN/CREATININE (MASS RATIO) IN SER/PLAS 21.0 Normal [facility] Comment on above: Performed By: #### L [id number] ####[facility] ([facility])[address] [facility] [place] [address] CBCon 09-05-2024 Erythrocyte distribution width (RBC) [Ratio] 14.0 % Normal 11.5-15.0 [facility] Comment on above: Performed By: #### L [id number] ####[facility] ([facility])[address] [place] [address] ERYTHROCYTE MEAN CORPUSCULAR HEMOGLOBIN CONCENTRATION (G/DL) BY AUTOMATED 32.0 g/dL Normal 32.0-35.0 [facility] Comment on above: Performed By: #### L [id number] ####[facility] [place] [address] Hematocrit (Bld) [Volume fraction] 31.9 % Low 36.0-45.0 [facility] Comment on above: Performed By: #### L [id number] ####[facility] ([facility])[address] [place] [address] Hemoglobin (Bld) [Mass/Vol] 10.2 g/dL Low 12.0-15.0 [facility] Comment on above: Performed By: #### L [id number] ####[facility] ([facility])[address] [place] [address] MCH (RBC) [Entitic mass] 30.8 pg Normal 27.0-33.0 [facility] Comment on above: Performed By: #### L [id number] ####[facility] ([facility])[address] [place] [address] MCV (RBC) [Entitic vol] 96.4 fL Normal 82.0-98.0 [facility] Comment on above: Performed By: #### L [id number] ####[facility] ([facility])[address] [place] [address] PLATELETS (10*3/UL) IN BLOOD AUTOMATED COUNT 247 10*3/uL Normal 150-400 [facility] Comment on above: Performed By: #### L [id number] ####[facility] ([facility])[address] [place] [address] RBC (Bld) [#/Vol] 3.31 10*6/uL Low 3.80-5.00 [facility] Comment on above: Performed By: #### L [id number] ####[facility] ([facility])[address] [place] [place] [address] WBC (Bld) [#/Vol] 17.69 10*3/uL High 4.00-10.60 [facility] Comment on above: Performed By: #### L [id number] ####[facility] ([facility])[address] [place] [address] NURSNOTEon 09-05-2024 NURSNOTE The findings from this [...] at this time. Dx:COPD 99 MONTHS Normal [facility] 30on 09-04-2024 30 The patient is [...] change or resting period as needed Normal [facility] 30 The patient is Moderately Stable [...] optimal ventilation and oxygenation Outcome: Progressing Normal [facility] ANTI-XA (HEPARIN LEVEL)on HEPARIN UNFRACTIONATED (U/ML) IN PPP BY CHROMOGENIC METHOD <0.10 Invalid Interpretation Code 0.3-0.7 [facility] Comment on above: Order Comment: Check anti-Xa level every 6 hours while on heparin infusion, or per protocol. Result Comment: [place] roxaban and Apixaban will interfere with the anti Xa assay used to monitor UFH and LMWH. Performed By: #### L [id number] #### [facility] ([facility]) [address] [place] [address] HEPARIN UNFRACTIONATED (U/ML) IN PPP BY CHROMOGENIC METHOD 0.61 IU/mL Normal 0.3-0.7 [facility] Comment on above: Order Comment: Check anti-Xa level every 6 hours while on heparin infusion, or per protocol. Result Comment: [place] roxaban and Apixaban will interfere with the anti Xa assay used to monitor UFH and LMWH. Performed By: #### L [id number] #### [facility] ([facility]) [address] [place] [address] HEPARIN UNFRACTIONATED (U/ML) IN PPP BY CHROMOGENIC METHOD >1.00 Critically high 0.3-0.7 [facility] Comment on above: Order Comment: Check anti-Xa level every 6 hours while on heparin infusion, or per protocol. Result Comment: [place] roxaban and Apixaban will interfere with the anti Xa assay used to monitor UFH and LMWH. Performed By: #### L [id number] #### [facility] ([facility]) [address] [place] [address] ARTERIAL BLOOD GAS WITH IONI ZED CALCIUMon 09-04-2024 Base excess Calc (Bld) [Moles/Vol] -1.8000 mmol/L Normal -2.0-3.0 [facility] Comment on above: Performed By: #### L [id number] ####[facility]IRAT[facility] [id number] [place] [address] [facility] CALCIUM IONIZED (MMOL/L) IN BLOOD 1.20 mmol/L Normal 1.15-1.33 [facility] Comment on above: Performed By: #### L [id number] ####[facility] RESPIRATORY [id number] [place] [address] [facility] CO2 (Bld) [Partial pressure] 42 mm[Hg] Normal 35-48 [facility] Comment on above: Performed By: #### L [id number] ####[facility] RESPIRATORY [id number] [address] FIO2 40 % Normal [facility] Comment on above: Performed By: #### L [id number] ####[facility] RESPIRATORY [id number] [place] [address] [facility] HCO3 (Bld) [Moles/Vol] 23.7 mmol/L Normal 21.0-28.0 [facility] Comment on above: Performed By: #### L [id number] ####[facility] RESPIRATORY [id number] [address] Oxygen (Bld) [Partial pressure] 92 mm[Hg] Normal 83-100 [facility] Comment on above: Performed By: #### L [id number] ####[facility] RESPIRATORY [id number] [address] OXYGEN SATURATION (%) IN ARTERIAL BLOOD 97.9 % Normal 94.0-98.0 [facility] Comment on above: Performed By: #### L [id number] ####[facility] RESPIRATORY [id number] [place] [id number] [facility] pH (Bld) 7.36 [pH] Normal 7.35-7.45 [facility] Comment on above: Performed By: #### L [id number] ####[facility] RESPIRATORY [id number] SOURCE OF OXYGEN High flow nasal cannula Normal [facility] Comment on above: Performed By: #### L [id number] ####[facility] RESPIRATORY [id number] [place] [address] [facility] BASIC METABOLIC PANELon 06-0 Anion gap [Moles/Vol] 10 mmol/L Normal 7-20 [facility] Comment on above: Performed By: #### L AB15 #### [facility] ([facility]) [address] [place] [address] Calcium [Mass/Vol] 7.7 mg/dL Low 8.6-10.3 [facility] Comment on above: Performed By: #### L [id number] #### [facility] ([facility]) [address] [place] [address] Chloride [Moles/Vol] 105 mmol/L Normal 98-107 [facility] Comment on above: Performed By: #### L [id number] #### [facility] ([facility]) [address] [place] [address] CO2 [Moles/Vol] 23 mmol/L Normal 21-31 [facility] Comment on above: Performed By: #### L [id number] #### [facility] ([facility]) [address] [place] [address] Creatinine [Mass/Vol] 1.21 mg/dL High 0.60-1.20 [facility] Comment on above: Performed By: #### L [id number] #### [facility] ([facility]) [address] [place] [address] GLOMERULAR FILTRATION RATE ML/MIN/1.73 SQ M.PREDICTED 47.9 mL/min/1.73m*2 Low >60.0 [facility] Comment on above: Result Comment: [facility]???s estimated glomerular filtration rate (eGFR) will [...] individuals. Performed By: #### L [id number] #### [facility] ([facility]) [address] [place] [address] Glucose [Mass/Vol] 113 mg/dL High 70-100 [facility] Comment on above: Performed By: #### L [id number] #### [facility] ([facility]) [address] [place] [address] Potassium [Moles/Vol] 4.5 mmol/L Normal 3.5-5.1 [facility] Comment on above: Performed By: #### L [id number] #### [facility] [address] [place] [address] Sodium [Moles/Vol] 133 mmol/L Low 136-145 [facility] Comment on above: Performed By: #### L [id number] #### [facility] [address] [place] [address] Urea nitrogen [Mass/Vol] 24 mg/dL Normal 7-25 [facility] Comment on above: Performed By: #### L [id number] #### [facility] ([facility]) [address] [place] [address] UREA NITROGEN/CREATININE (MASS RATIO) IN SER/PLAS 19.8 Normal [facility] Comment on above: Performed By: #### L [id number] #### [facility] ([facility]) [address] [place] [address] BLOOD CULTUREon 09-04-2024 Bacteria identified Cx Nom (Bld) No growth at 5 days Normal [facility] Comment on above: Order Comment: From a different site than #1. Performed By: #### L [id number] ####[facility] [place] [address] Bacteria identified Cx Nom (Bld) No growth at 5 days Normal [facility] Comment on above: Performed By: #### L [id number] ####[facility] [place] [address] CBCon 09-04-2024 Erythrocyte distribution width (RBC) [Ratio] 14.0 % Normal 11.5-15.0 [facility] Comment on above: Performed By: #### L [id number] #### [facility] [address] [place] [address] ERYTHROCYTE MEAN CORPUSCULAR HEMOGLOBIN CONCENTRATION (G/DL) BY AUTOMATED 32.5 g/dL Normal 32.0-35.0 [facility] Comment on above: Performed By: #### L [id number] #### [facility] ([facility]) [address] [place] [address] Hematocrit (Bld) [Volume fraction] 32.0 % Low 36.0-45.0 [facility] Comment on above: Performed By: #### L [id number] #### [facility] ([facility]) [address] [address] Hemoglobin (Bld) [Mass/Vol] 10.4 g/dL Low 12.0-15.0 [facility] Comment on above: Performed By: #### L [id number] #### [facility] ([facility]) [address] [address] MCH (RBC) [Entitic mass] 31.4 pg Normal 27.0-33.0 [facility] Comment on above: Performed By: #### L [id number] #### [facility] ([facility]) [address] [place] [address] MCV (RBC) [Entitic vol] 96.7 fL Normal 82.0-98.0 [facility] Comment on above: Performed By: #### L [id number] #### [facility] ([facility]) [address] [place] [address] PLATELETS (10*3/UL) IN BLOOD AUTOMATED COUNT 227 10*3/uL Normal 150-400 [facility] Comment on above: Performed By: #### L [id number] #### [facility] ([facility]) [address] [place] [address] RBC (Bld) [#/Vol] 3.31 10*6/uL Low 3.80-5.00 [facility] Comment on above: Performed By: #### L [id number] #### [facility] ([facility]) [address] [place] [address] WBC (Bld) [#/Vol] 19.91 10*3/uL High 4.00-10.60 [facility] Comment on above: Performed By: #### L [id number] #### [facility]) [place] [address] CONSULTon 09-04-2024 CONSULT - Attestation signed by [...] We suspect this is a type 2 MD and, if she remains clinically stable, recommend no further cardiac evaluation at this time. We do recommend you continue aspirin, isosorbide, toprol XL, atorvastatin and other cardiac medications. Cardiology Consult Note Reason for Consult: NSTEMI HPI: Chiara Eduardo is a 69 y.o. female with a history of coronary artery disease, prior stent placement, COPD, History of acute inferior wall MD, HT, HLP, CKD, obesity presented with shortness of breath Cardiology consulted for elevated troponin and SOB Patient presented with worsening shortness of breath. She presented to [facility], found to have right lower lobe pneumonia, with increasing troponin to 78.9, lactic of 3.2, patient was started on heparin drip, antibiotics, and was sent to [facility] for further workup. Cardiac history:history of [...] kidney disease, COPD (chronic obstructive pulmonary disease) ([facility]), Coronary artery disease, Coronary artery disease involving samish coronary artery of samish heart without angina pectoris (12/28/2016), Essential hypertension [...] Daily atorvastatin (LIPITOR) 80 mg, oral, Daily gvlbkydpjo-ziksjixj-k ormoterol (Breztri Aerosphere) 160-9-4.8 mcg/actuation HFA aerosol [...] Medication Si (more content not included)... Normal [facility] HIGH SENSITIVITY CRPon 09-04 CRP, HIGH SENSITIVITY >300.0 High <=3.0 [facility] Comment on above: Result Comment: INTE RPRETIVE [...] 3.0 mg/L ... high risk Performed By: [facility] [address] [place] [id number] Chemical Pumper: Amol Tran MD, PhD CLIA Number: [id number] Performed By: #### L [id number] ####[facility] ([facility])[address] [place] [address] HIGH SENSITIVITY TROPONIN Io n 09-04-2024 HS TROPONIN I (NG/L) 1053 ng/L Critically high <15 [facility] Comment on above: Performed By: #### L [id number] ####[facility] ([facility])[address] [place] [address] LEGIONELLA ANTIGEN, URINEon 09-04-2024 LEGIONELLA AG, UR Negative Normal NEG [facility] Comment on above: Result Comment: L. p neumophila serogroup 1 antigen not detected. A negative result does not exclude infection with Leginella pnemophila serogroup 1 nor does it rule out other microbial-caused respiratory infections of disease caused by other serogroups of Legionella pneumophila. Test [facility]formed by [facility] [address] [place] [address] - Released 09/04/2024 20:22 Performed By: #### L [id number] ####[facility] [address] [place] [address] MAGNESIUMon 09-04-2024 Magnesium [Mass/Vol] 1.8 mg/dL Low 1.9-2.7 [facility] Comment on above: Performed By: #### L [id number] #### [facility] ([facility]) [address] [place] [address] MYCOPLASMA PNEUMONIAE PCRon 09-04-2024 MYCOPLASMA PNEUMONIAE PCR Not detected Normal [facility] Comment on above: Result Comment: NOT DETECTED - A negative result does not rule out the presence of PCR inhibitors in the patient specimen or assay specific nucleic acid in concentrations below the level of detection by the assay. INTERPRETIVE INFORMATION: Mycoplasma pneumoniae by PCR This test was developed and its performance characteristics determined by [facility]. It has not been cleared or approved by the [place] Food and Drug Administration. This test was performed in a CLIA certified laboratory and is intended for clinical purposes. Performed By: [facility] [address] [place] [address] Chemical Pumper: Amol Tran MD, PhD [facility] Number: [id number] Performed By: #### L [id number] ####[facility] (BEAKER)[address] [place] [address] MYCOPLASMA PNEUMONIAE SOURCE Not Provided Normal [facility] Comment on above: Result Comment: Spec imen source was not provided. Please refer to the [employer] [facility] Test Directory for validated specimen source information: [email or web address]/[email or web address]. Interpret results with caution. Performed By: #### L [id number] ####[facility] (BEAKER)[address] [place] [address] SEDIMENTATION RATEon 025 SEDIMENTATION RATE, ERYTHROCYTE 21 mm/hr Normal <30 [facility] Comment on above: Performed By: #### L [id number] #### [facility] ([facility]) [address] [place] [address] 30on 09-03-2024 30 Problem: Pain - Adul [...] and behaviors that affect risk of falls Cyril fall precautions as indicated by assessment Educate [...] for the shift include VSS; safety Normal [facility] 30 The patient is Moderately Stable - Low risk of patient condition declining or worsening The patient's goals for the shift include Comfort The clinical goals for the shift include VSS, safety Normal [facility] APTTon 09-03-2024 ACTIVATED PARTIAL THROMBOPLASTIN TIME IN PPP BY COAGULATION ASSAY 49.3 Seconds High 25.0-35.0 [facility] Comment on above: Order Comment: Basel ine aPTT before initiating heparin infusion. Result Comment: Clin ical significance of the APTT is questionable in the presence of heparin. Performed By: #### L [id number] #### [facility] ([facility]) [address] [place] [address] B-TYPE NATRIURETIC PEPTIDEon 09-03-2024 Natriuretic peptide B (Bld) [Mass/Vol] 708 pg/mL High 0-100 [facility] Comment on above: Performed By: #### L [id number] ####[facility] ([facility]ER)[address] [place] [address] CBC WITH AUTO DIFFERENTIALon 09-03-2024 Basophils (Bld) [#/Vol] 0.03 10*3/uL Normal 0.00-0.20 [facility] Comment on above: Performed By: #### L [id number] ####[facility] [place] [address] Basophils/100 WBC (Bld) 0.2 % Normal 0.0-1.0 [facility] Comment on above: Performed By: #### L [id number] ####[facility] ([facility]ER)[address] [place] [address] Eosinophils (Bld) [#/Vol] 0.24 10*3/uL Normal 0.00-0.50 [facility] Comment on above: Performed By: #### L [id number] ####[facility] ([facility]ER)[address] [place] [address] Eosinophils/100 WBC (Bld) 1.2 % Normal 0.0-6.0 [facility] Comment on above: Performed By: #### L [id number] ####[facility] (BE[facility]ER)[address] [place] [address] Erythrocyte distribution width (RBC) [Ratio] 13.8 % Normal 11.5-15.0 [facility] Comment on above: Performed By: #### L [id number] ####[facility] ([facility]ER)[address] [place] [address] ERYTHROCYTE MEAN CORPUSCULAR HEMOGLOBIN CONCENTRATION (G/DL) BY AUTOMATED 32.1 g/dL Normal 32.0-35.0 [facility] Comment on above: Performed By: #### L [id number] ####[facility] ([facility])[address] [place] [address] Hematocrit (Bld) [Volume fraction] 38.3 % Normal 36.0-45.0 [facility] Comment on above: Performed By: #### L [id number] ####[facility] ([facility]ER)[address] [place] [address] Hemoglobin (Bld) [Mass/Vol] 12.3 g/dL Normal 12.0-15.0 [facility] Comment on above: Performed By: #### L [id number] ####[facility] [place] [address] Immature granulocytes (Bld) [#/Vol] 0.10 10*3/uL Normal 0.00-0.20 [facility] Comment on above: Performed By: #### L [id number] ####[facility] ([facility])[address] [place] [address] Immature granulocytes/100 WBC (Bld) 0.5 % Normal 0.0-1.0 [facility] Comment on above: Performed By: #### L [id number] ####[facility] [place] [address] Lymphocytes (Bld) [#/Vol] 0.28 10*3/uL Low 1.20-4.00 [facility] Comment on above: Performed By: #### L [id number] ####[facility] ([facility])[address] [place] [address] Lymphocytes/100 WBC (Bld) 1.4 % Low 20.0-45.0 [facility] Comment on above: Performed By: #### L [id number] ####[facility] ([facility]ER)[address] [place] [address] MCH (RBC) [Entitic mass] 31.1 pg Normal 27.0-33.0 [facility] Comment on above: Performed By: #### L [id number] ####[facility] ([facility]ER)[address] [place] [address] MCV (RBC) [Entitic vol] 97.0 fL Normal 82.0-98.0 [facility] Comment on above: Performed By: #### L [id number] ####[facility] ([facility])[address] [address] Monocytes (Bld) [#/Vol] 0.67 10*3/uL Normal 0.10-1.00 [facility] Comment on above: Performed By: #### L [id number] ####[facility] ([facility]ER)[address] [address] Monocytes/100 WBC (Bld) 3.4 % Low 5.0-12.0 [facility] Comment on above: Performed By: #### L [id number] ####[facility] ([facility]ER)[address] [address] Neutrophils (Bld) [#/Vol] 18.60 10*3/uL High 1.60-7.60 [facility] Comment on above: Performed By: #### L [id number] ####[facility] (BE[facility]ER)[address] [address] Neutrophils/100 WBC (Bld) 93.3 % High 40.0-72.0 [facility] Comment on above: Performed By: #### L [id number] ####[facility] (BEAKER)[address] [address] NRBC (PER 100 WBCS) BY AUTOMATED COUNT 0.0 % Normal 0 [facility] Comment on above: Performed By: #### L [id number] ####[facility] (BE[facility]ER)[address] [address] PLATELETS (10*3/UL) IN BLOOD AUTOMATED COUNT 272 10*3/uL Normal 150-400 [facility] Comment on above: Performed By: #### L [id number] ####[facility] (BE[facility]ER)[address] [place], [place] [address] RBC (Bld) [#/Vol] 3.95 10*6/uL Normal 3.80-5.00 [facility] Comment on above: Performed By: #### L [id number] ####[facility] ([facility]ER)[address] [place] [address] WBC (Bld) [#/Vol] 19.92 10*3/uL High 4.00-10.60 [facility] Comment on above: Performed By: #### L [id number] ####[facility] ([facility])[address] [place] [address] COMPREHENSIVE METABOLIC PANE Adam 09-03-2024 Albumin [Mass/Vol] 3.6 g/dL Normal 3.5-5.7 [facility] Comment on above: Performed By: #### L [id number] #### [facility] ([facility]) [address] [place] [address] ALP [Catalytic activity/Vol] 54 U/L Normal 34-104 [facility] Comment on above: Performed By: #### L [id number] #### [facility] ([facility]) [address] [place] [address] ALT [Catalytic activity/Vol] 19 U/L Normal 7-52 [facility] Comment on above: Performed By: #### L [id number] #### [facility] ([facility]) [address] [place] [address] Anion gap [Moles/Vol] 11 mmol/L Normal 7-20 [facility] Comment on above: Performed By: #### L [id number] #### [facility] ([facility]) [address] [place] [address] AST [Catalytic activity/Vol] 25 U/L Normal 13-39 [facility] Comment on above: Performed By: #### L [id number] #### [facility] ([facility]) [address] [place] [address] Bilirubin [Mass/Vol] 0.4 mg/dL Normal 0.3-1.0 [facility] Comment on above: Performed By: #### L [id number] #### [facility] [address] [place] [address] Calcium [Mass/Vol] 8.3 mg/dL Low 8.6-10.3 [facility] Comment on above: Performed By: #### L [id number] #### [facility] ([facility]) [address] [place] [address] Chloride [Moles/Vol] 103 mmol/L Normal 98-107 [facility] Comment on above: Performed By: #### L [id number] #### [facility] ([facility]) [address] [place] [address] CO2 [Moles/Vol] 25 mmol/L Normal 21-31 [facility] Comment on above: Performed By: #### L [id number] #### [facility] ([facility]) [address] [place] [address] Creatinine [Mass/Vol] 1.48 mg/dL High 0.60-1.20 [facility] Comment on above: Performed By: #### L [id number] #### [facility] ([facility]) [address] [place] [address] GLOMERULAR FILTRATION RATE ML/MIN/1.73 SQ M.PREDICTED 37.6 mL/min/1.73m*2 Low >60.0 [facility] Comment on above: Result Comment: [facility]???s estimated glomerular filtration rate (eGFR) will [...] individuals. Performed By: #### L [id number] #### [facility] ([facility]) [address] [place] [address] Glucose [Mass/Vol] 130 mg/dL High 70-100 [facility] Comment on above: Performed By: #### L [id number] #### [facility] ([facility]) [address] [place] [address] Potassium [Moles/Vol] 4.8 mmol/L Normal 3.5-5.1 [facility] Comment on above: Performed By: #### L [id number] #### [facility] [address] [place] [address] Protein [Mass/Vol] 6.0 g/dL Normal 6.0-8.3 [facility] Comment on above: Performed By: #### L [id number] #### [facility] ([facility]) [address] [place] [address] Sodium [Moles/Vol] 134 mmol/L Low 136-145 [facility] Comment on above: Performed By: #### L [id number] #### [facility] ([facility]) [address] [place] [address] Urea nitrogen [Mass/Vol] 29 mg/dL High 7-25 [facility] Comment on above: Performed By: #### L [id number] #### [facility] ([facility]) [address] [place] [address] UREA NITROGEN/CREATININE (MASS RATIO) IN SER/PLAS 19.6 Normal [facility] Comment on above: Performed By: #### L [id number] #### [facility] ([facility]) [address] [place] [address] HEMOGLOBIN A1Con 09-03-2024 Glucose [Mass/Vol] 143 mg/dL Normal [facility] Comment on above: Performed By: #### L [id number] #### [facility] ([facility]) [address] [place] [address] HbA1c (Bld) [Mass fraction] 6.6 % High 4.0-6.0 [facility] Comment on above: Performed By: #### L [id number] #### [facility] [address] [place] [address] HIGH SENSITIVITY TROPONIN Io n 09-03-2024 HS TROPONIN I (NG/L) 1478 ng/L Critically high <15 [facility] Comment on above: Performed By: #### L [id number] #### [facility] ([facility]) [address] [place] [address] HS TROPONIN I (NG/L) 1746 ng/L Critically high <15 [facility] Comment on above: Performed By: #### L [id number] #### [facility] ([facility]) [address] [place] [address] HS TROPONIN I (NG/L) 1891 ng/L Critically high <15 [facility] Comment on above: Performed By: #### L [id number] #### [facility] ([facility]) [address] [place] [address] LACTIC ACID WITH 4 HOUR REFL EXon 09-03-2024 LACTATE (MMOL/L) IN SER/PLAS 1.6 mmol/L Normal 0.5-2.2 [facility] Comment on above: Performed By: #### L [id number] ####[facility] ([facility])[address] [place] [address] LIPID PANELon 09-03-2024 CHOL/HDL 1.8 mg/dL Normal [facility] Comment on above: Performed By: #### L [id number] ####[facility] ([facility])[address] [place] [address] Cholesterol [Mass/Vol] 125 mg/dL Normal 120-200 [facility] Comment on above: Performed By: #### L [id number] ####[facility] ([facility])[address] [place] [address] Magnesium [Mass/Vol] 44 mg/dL Normal <150 [facility] Comment on above: Result Comment: TRIG LYCERIDE REFERENCE RANGE: 20 YEARS AND OLDER CARDIOVASCULAR RISK LESS THAN 150 mg/dL LOW RISK 150 TO 199 mg/dL BORDERLINE RISK 200 mg/dL AND GREATER HIGH RISK Performed By: #### L [id number] ####[facility] [place] [address] Magnesium [Mass/Vol] 46 mg/dL Normal 0-160 [facility] Comment on above: Performed By: #### L [id number] ####[facility] (BEAKER)[address] [place] [address] Magnesium [Mass/Vol] 70 mg/dL Normal 23-92 [facility] Comment on above: Performed By: #### L [id number] ####[facility] (BEAKER)[address] [place] [address] NON HDL CHOL. (LDL+VLDL) 55 Normal [facility] Comment on above: Performed By: #### L [id number] ####[facility] (BEAKER)[address] [place] [address] TOTAL VLDL-C 9 mg/dL Normal 0-40 [facility] Comment on above: Performed By: #### L [id number] ####[facility] [place] [address] LIPOPROTEIN A (LPA)on 2024 Magnesium [Mass/Vol] 33 mg/dL High <=29 [facility] Comment on above: Result Comment: Perf ormed By: [facility] [address] [place] [address] Chemical Pumper: Amol Tran MD, PhD CLIA Number: [id number] Performed By: #### L [id number] #### [facility] ([facility]) [address] [place] [address] MAGNESIUMon 09-03-2024 Magnesium [Mass/Vol] 1.8 mg/dL Low 1.9-2.7 [facility] Comment on above: Performed By: #### L [id number] #### [facility] ([facility]ER) [address] [place] [address] SPUTUM CULTUREon 09-03-2024 GRAM STAIN RESULT Normal [facility] Comment on above: Order Comment: Light Growth Colonies Consistent with Upper Respiratory Terrie Result Comment: 10-2 5 Squamous Epithelial Cells Per Low Power Field >25 Polys Per Low Power Field Few Gram positive cocci in pairs Performed By: #### L [id number] ####[facility] (BEAKER)[address] [place] [address] ALL CBC WITH AUTO DIFFon BASOPHILS ABSOLUTE AUTO 0.1 N [facility] Basophils/100 WBC (Bld) 0.8 % 0.2 - 2.0 % [facility] Eosinophils/100 WBC (Bld) 0.9 % 0.9 - 7.0 % [facility] Erythrocyte distribution width (RBC) [Ratio] 14.1 % 11.0 - 15.0 % [facility] Hematocrit (Bld) [Volume fraction] 38.4 % 36.0 - 48.0 % [facility] Hemoglobin (Bld) [Mass/Vol] 12.4 g/dL 12.0 - 16.0 g/dL [facility] IMMATURE GRANULOCYTES ABS AUTO 0.07 High [facility] Immature granulocytes/100 WBC (Bld) 0.7 % High 0.0 - 0.5 % [facility] Interpretation and review of laboratory results Abnormal [facility] LYMPHOCYTES ABSOLUTE AUTO 2.1 [facility] Lymphocytes/100 WBC (Bld) 19.2 % Low 20.5 - 60.0 % [facility] MCH (RBC) [Entitic mass] 31.6 pg 26.7 - 34.0 pg [facility] MCHC (RBC) [Mass/Vol] 32.3 g/dL 29.9 - 35.2 g/dL [facility] MCV (RBC) [Entitic vol] 97.7 fL 81.0 - 99.0 fL [facility] MONOCYTES ABSOLUTE AUTO 0.9 High N [facility] Monocytes/100 WBC (Bld) 8.2 % 1.7 - 12.0 % [facility] NEUTROPHILS ABSOLUTE AUTO 7.5 High [facility] Neutrophils/100 WBC (Bld) 70.2 % 43.0 - 75.0 % [facility] Platelet mean volume (Bld) [Entitic vol] 9 fL Low 9.5 - 13.5 fL [facility] TBH EO # 0.1 [facility] TBH PLT 370 [facility] TB RBC 3.93 Low [facility] [facility] TB WBC 10.7 [facility] Healthcare Office Visiton 08-01-2024 Follow-up visit [id number] Chiara Eduardo 1955 F Date Provider Department Center 08/01/2024 Kee-ABBY AZEVEDO JUSTIN Garcia Family History Problem Relation Age of Onset Stroke Mother Kidney disease Father Coronary artery disease Paternal Grandfather Family Status - Relation Status Age at Mother Father Paternal Grandfather Level of Service:76770 SD OFFICE/OUTPATIENT ESTABLISHED LOW MDM 20 MIN Normal [facility] ALL CBC WITH AUTO DIFFon BASOPHILS ABSOLUTE AUTO 0.1 N [facility] Healthcare Basophils/100 WBC (Bld) 0.5 % 0.2 - 2.0 % [facility] Eosinophils/100 WBC (Bld) 0.3 % Low 0.9 - 7.0 % [facility] Erythrocyte distribution width (RBC) [Ratio] 14.6 % 11.0 - 15.0 % [facility] Hematocrit (Bld) [Volume fraction] 37.3 % 36.0 - 48.0 % [facility] Hemoglobin (Bld) [Mass/Vol] 12.3 g/dL 12.0 - 16.0 g/dL [facility] IMMATURE GRANULOCYTES ABS AUTO 0.04 High [facility] Immature granulocytes/100 WBC (Bld) 0.3 % 0.0 - 0.5 % [facility] Interpretation and review of laboratory results Abnormal [facility] LYMPHOCYTES ABSOLUTE AUTO 1.8 [facility] Lymphocytes/100 WBC (Bld) 15.7 % Low 20.5 - 60.0 % [facility] MCH (RBC) [Entitic mass] 32.1 pg 26.7 - 34.0 pg [facility] MCHC (RBC) [Mass/Vol] 33 g/dL 29.9 - 35.2 g/dL [facility] MCV (RBC) [Entitic vol] 97.4 fL 81.0 - 99.0 fL [facility] MONOCYTES ABSOLUTE AUTO 0.8 N [facility] Healthcare Monocytes/100 WBC (Bld) 6.9 % 1.7 - 12.0 % [facility] NEUTROPHILS ABSOLUTE AUTO 8.8 High [facility] Neutrophils/100 WBC (Bld) 76.3 % High 43.0 - 75.0 % [facility] Platelet mean volume (Bld) [Entitic vol] 9.3 fL Low 9.5 - 13.5 fL [facility] TBH EO # 0 [facility] TBH PLT 308 [facility] TBH RBC 3.83 Low [facility] TBH WBC 11.5 High [facility] Urine Cultureon 07-26-2024 Bacteria identified Cx Nom (U) 50,000 colonies/ml mixed bacterial skin contaminants 2 Days PERFORMED BY: [address] [place] [address] PATHOLOGIST JUDO TEACHER LETICIA KAHN M.D. Normal [facility] Comment on above: Performed By: #### C UU #### [address] [address] [facility] 36on 07-25-2024 36 Regarding labs from [...] will wait until 07/26/2024 and call [facility]. Blood work results faxed to [facility]. Advised patient if she has fever, chills or not feeling well to go to the ER. Patient verbalized understanding. MD Oralia Luevano MA I see that she is on Prednisone. That may be the cause. She is still to discuss with her PCP. Patient states she is still taking the prednisone and will still call her PCP on 07/26/2024 Normal [facility] ALL CBC WITH AUTO DIFFon Erythrocyte distribution width (RBC) [Ratio] 14.5 % 11.0 - 15.0 % [facility] Hematocrit (Bld) [Volume fraction] 37.9 % 36.0 - 48.0 % [facility] Hemoglobin (Bld) [Mass/Vol] 12.4 g/dL 12.0 - 16.0 g/dL [facility] Interpretation and review of laboratory results Abnormal [facility] MCH (RBC) [Entitic mass] 31.3 pg 26.7 - 34.0 pg [facility] MCHC (RBC) [Mass/Vol] 32.7 g/dL 29.9 - 35.2 g/dL [facility] MCV (RBC) [Entitic vol] 95.7 fL 81.0 - 99.0 fL [facility] Platelet mean volume (Bld) [Entitic vol] 9.4 fL Low 9.5 - 13.5 fL [facility] Healthcare TBH PLT 322 [facility] TB RBC 3.96 Low [facility] TBH WBC 23.5 High [facility] Healthcare Telephoneon 07-25-2024 Telephone [id number] EduardoChiara 1955 F Date Provider Department Center 07/25/2024 [id number] HARRISON CARD [facility] Family History Problem Relation Age of Onset Stroke Mother Kidney disease Father Coronary artery disease Paternal Grandfather Family Status - Relation Status Age at Mother Father Paternal Grandfather Normal [facility] Erythrocyte distribution wid th Auto (RBC) [Ratio]on 07-17-2024 Erythrocyte distribution width (RBC) [Ratio] Erythrocyte distribution width [Ratio] by Automated count 11.0-15.0 [facility] Estimated glomerular filtrat ion rate (GFR) non- Americanon 07-17-2024 GFR/1.73 sq M.predicted among non-blacks MDRD (S/P/Bld) [Vol rate/Area] Estimated glomerular filtration rate (GFR) non- Low >=60 mL/min/1.73m 2 [facility] Hematocrit Auto (Bld) [Volum e fraction]on 07-17-2024 Hematocrit (Bld) [Volume fraction] Hematocrit [Volume Fraction] of Blood by Automated count 36.0-48.0 [facility] Hemoglobin [Mass/volume] in Bloodon 07-17-2024 Hemoglobin (Bld) [Mass/Vol] Hemoglobin [Mass/volume] in Blood 12.0-16.0 [facility] Laboratory - Chemistry and C hemistry - challengeon 07-17-2024 Albumin [Mass/Vol] 3.4 g/dL 3.4-5.0 [facility] Calcium [Mass/Vol] 8.8 mg/dL 8.5-10.1 [facility] Chloride [Moles/Vol] 99 mmol/L 98-107 [facility] CO2 [Moles/Vol] 27.2 mmol/L 21.0-32.0 [facility] Creatinine [Mass/Vol] 1.44 mg/dL High 0.55-1.02 [facility] GFR/1.73 sq M.predicted MDRD (S/P/Bld) [Vol rate/Area] 43 mL/min/{1.73_m2} Low >=60 mL/min/1.73m 2 [facility] Glucose [Mass/Vol] 105 mg/dL 74-106 [facility] Magnesium [Mass/Vol] 2.1 mg/dL 1.8-2.4 [facility] Potassium [Moles/Vol] 4.9 mmol/L 3.5-5.1 [facility] Sodium [Moles/Vol] 135 mmol/L Low 136-145 [facility] Urate [Mass/Vol] 5.0 mg/dL 2.6-6.0 [facility] Urea nitrogen [Mass/Vol] 20.0 mg/dL High 7.0-18.0 [facility] Urea nitrogen/Creatinine [Mass ratio] 13.9 mg/mg [facility] Laboratory - Urinalysison Protein (U) [Mass/Vol] 25.2 mg/dL High <=11.9 [facility] Leukocytes [#/volume] correc maryuri for nucleated erythrocytes in Blood by Automated counon 07-17-2024 WBC corrected for nucl RBC Auto (Bld) [#/Vol] Leukocytes [#/volume] corrected for nucleated erythrocytes in Blood by Automated coun 4.0-11.0 [facility] MCH Auto (RBC) [Entitic mass ]on 07-17-2024 MCH (RBC) [Entitic mass] MCH [Entitic mass] by Automated count 26.7-34.0 [facility] MCHC Auto (RBC) [Mass/Vol]on 07-17-2024 MCHC (RBC) [Mass/Vol] MCHC [Mass/volume] by Automated count 29.9-35.2 [facility] MCV Auto (RBC) [Entitic vol] on 07-17-2024 MCV (RBC) [Entitic vol] MCV [Entitic vol ume] by Automated count 81.0-99.0 [facility] No Panel Informationon 07-17 Parathyroid Hormone (Intact) 68 pg/mL Abnormal 15-65 [facility] Comment on above: Performed at: - [address] [id number] Director: True Herron PhD, Phone: [phone] Phosphorus Level 3.2 mg/dL 2.6-4.7 [facility] Urine Random Creatinine 68.16 mg/dL 20.00-300.0 0 [facility] Platelet mean volume Auto (B ld) [Entitic vol]on 07-17-2024 Platelet mean volume (Bld) [Entitic vol] Platelet mean volume [Entitic volume] in Blood by Automated count 9.5-13.5 [facility] Platelets Auto (Bld) [#/Vol] on 07-17-2024 Platelets (Bld) [#/Vol] Platelets [#/vol ume] in Blood by Automated count 150-450 [facility] RBC Auto (Bld) [#/Vol]on RBC (Bld) [#/Vol] Erythrocytes [#/volume] in Blood by Automated count Low 4.20-5.40 [facility] Serum or plasma anion gap de terminationon 07-17-2024 Anion gap [Moles/Vol] Serum or plasma an ion gap determination [facility] TB URINE T PROTEIN CREAT RA TIOon 07-17-2024 CREATININE URINE RANDOM 68.16 mg/dL 20.0 0 - 300.00 mg/dL [facility] Interpretation and review of laboratory results Abnormal [facility] Protein (U) [Mass/Vol] 25.2 mg/dL High NINF - 11.9 mg/dL [facility] PROTEIN CREATININE RATIO URINE 0.37 [facility] Urine protein/creatinine rat ioon 07-17-2024 Protein/Creatinine (U) [Ratio] Urine protein/creatinine ratio [facility] ANESon 07-03-2024 ANES - Attestation signed by Abby Azevedo MD at 07/03/2024 9:27 AM Abby Azevedo MD, MPH, FACC, [facility], [facility] Interventional Cardiology Pager Email: [email or web address] Patient: Chiara Eduardo Procedure Information Date/Time: 07/03/24 1030 Procedures: Coronary angiography - PC APPROVED 06/16-09/13 R IJ Farzaneh MAO Right heart cath Location: [facility] 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 Additional Equipment Requests Normal [facility] HPon 07-03-2024 - Attestation signed by Abby Azevedo MD at 07/03/2024 9:27 AM Abby Azevedo MD, MPH, FACC, [facility], [facility] Interventional Cardiology Pager Email: [email or web address] H&P reviewed. The patient was examined and there are no changes to the H&P. Proceed with CORS + RHC Geo Laboy MD PGY-5 Reference Archivist [facility] Pager # [phone] Normal [facility] NURSNOTEon 07-03-2024 NURSNOTE RN educated pt [...] of unit with all of belongings. Normal [facility] NURSNOTE Per Dr. Medrano patient to get LR at 100ml per hr for pre cath hydration Normal [facility] ALL CBC WITH AUTO DIFFon BASOPHILS ABSOLUTE AUTO 0.1 N [facility] Basophils/100 WBC (Bld) 0.7 % 0.2 - 2.0 % [facility] Eosinophils/100 WBC (Bld) 0.9 % 0.9 - 7.0 % [facility] Erythrocyte distribution width (RBC) [Ratio] 15.5 % High 11.0 - 15.0 % [facility] Hematocrit (Bld) [Volume fraction] 36.4 % 36.0 - 48.0 % [facility] Hemoglobin (Bld) [Mass/Vol] 12 g/dL 12.0 - 16.0 g/dL [facility] IMMATURE GRANULOCYTES ABS AUTO 0.04 High [facility] Immature granulocytes/100 WBC (Bld) 0.4 % 0.0 - 0.5 % [facility] Interpretation and review of laboratory results Abnormal [facility] LYMPHOCYTES ABSOLUTE AUTO 1.2 [facility] Lymphocytes/100 WBC (Bld) 12.3 % Low 20.5 - 60.0 % [facility] MCH (RBC) [Entitic mass] 31.8 pg 26.7 - 34.0 pg [facility] MCHC (RBC) [Mass/Vol] 33 g/dL 29.9 - 35.2 g/dL [facility] MCV (RBC) [Entitic vol] 96.6 fL 81.0 - 99.0 fL [facility] MONOCYTES ABSOLUTE AUTO 0.7 N [facility] Monocytes/100 WBC (Bld) 6.6 % 1.7 - 12.0 % [facility] NEUTROPHILS ABSOLUTE AUTO 8 High [facility] Neutrophils/100 WBC (Bld) 79.1 % High 43.0 - 75.0 % [facility] Platelet mean volume (Bld) [Entitic vol] 8.8 fL Low 9.5 - 13.5 fL [facility] TBH EO # 0.1 [facility] TB PLT 290 [facility] RBC 3.77 Low [facility] WBC 10.1 [facility] HPon 06-15-2024 [facility] Cardiology Clinic Note Chief Complaint: Patient [...] has noticed worsening shortness of breath. 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 Normal [facility] Office Visiton 06-15-2024 Follow-up visit [id number] Chiara Eduardo 1955 F Date Provider Department Center 06/15/2024 Kee-ABBY AZEVEDO Family History Problem Relation Age of Onset Stroke Mother Kidney disease Father Coronary artery disease Paternal Grandfather Family Status - Relation Status Age at Mother Father Paternal Grandfather Level of Service:59611 SD OFFICE/OUTPATIENT ESTABLISHED HIGH MDM 40 MIN Normal [facility] Orders Onlyon 06-15-2024 Orders Only [id number] Chiara Eduardo 1955 F Date Provider Department Center 06/15/2024 ALLAN BHAKTA JUSTIN Garcia Family History Problem Relation Age of Onset Stroke Mother Kidney disease Father Coronary artery disease Paternal Grandfather Family Status - Relation Status Age at Mother Father Paternal Grandfather Normal [facility] Office Visiton 05-23-2024 Follow-up visit [id number] Chiara Eduardo 1955 F Date Provider Department Center 05/23/2024 Lonny-XANDER SEQUEIRA JUSTIN Garcia Family History Problem Relation Age of Onset Stroke Mother Kidney disease Father Coronary artery disease Paternal Grandfather Family Status - Relation Status Age at Mother Father Paternal Grandfather Level of Service:56062 SD OFFICE/OUTPATIENT ESTABLISHED LOW MDM 20 MIN Normal [facility] TBH URINE T PROTEIN CREAT RA TIOon 02-02-2024 CREATININE URINE RANDOM 78.2 mg/dL 20.0 0 - 300.00 mg/dL [facility] Protein (U) [Mass/Vol] 8.7 mg/dL NINF - 11.9 mg/dL [facility] PROTEIN CREATININE RATIO URINE 0.11 [facility] 01-24-2024 Hemoglobin (Bld) [Mass/Vol] 11 g/dL Low 12.0 - 16.0 g/dL [facility] Interpretation and review of laboratory results Abnormal [facility] 36on 01-04-2024 36 Patient seen today b y Dr. Sequeira. He wants to know if she can stop Effient due to easy bruising/bleeding. Please advise. Thanks. Normal [facility] Office Visiton 01-04-2024 Follow-up visit [id number] EduardoChiara meza Brown 1955 F Date Provider Department Center 01/04/2024 Lonny-XANDER SEQUEIRA JUSTIN [facility] Family History Problem Relation Age of Onset Stroke Mother Kidney disease Father Coronary artery disease Paternal Grandfather Family Status - Relation Status Age at Mother Father Paternal Grandfather Level of Service:63595 SD OFFICE/OUTPATIENT ESTABLISHED LOW MDM 20 MIN Normal [facility] Iron binding capacity [Mass/ volume] in Serum or Plasmaon 11-23-2023 Iron binding capacity [Mass/Vol] 365.0 ug/dL 250.0-450.0 [facility] Iron saturation [Mass Fracti on] in Serum or Plasmaon 11-23-2023 Iron saturation [Mass fraction] 5.5 % [facility] Laboratory - Chemistry and C hemistry - challengeon 11-23-2023 Ferritin [Mass/Vol] 25.0 ng/mL 8.0-252.0 [facility] Iron [Mass/Vol] 20.0 ug/dL Low 50.0-170.0 [facility] [employer] [facility] TIBCon 2023 Interpretation and review of laboratory results Abnormal [facility] IRON 20.0 ug/dL Low 50.0 - 170.0 ug/dL [facility] TB PERCENT IRON SATURATION 5.5 % [facility] TOTAL IRON BINDING CAPACITY 365.0 ug/dL 250.0 - 450.0 ug/dL [facility] Erythrocyte distribution wid th Auto (RBC) [Ratio]on 11-08-2023 Erythrocyte distribution width (RBC) [Ratio] 16.4 % High 11.0-15.0 [facility] Estimated glomerular filtrat ion rate (GFR) non- Americanon 11-08-2023 GFR/1.73 sq M.predicted among non-blacks MDRD (S/P/Bld) [Vol rate/Area] 37 mL/min/{1.73_m2} Low >=60 [facility] Globulin Calc (S) [Mass/Vol] on 11-08-2023 Globulin (S) [Mass/Vol] 3.9 g/dL F [facility] Hematocrit Auto (Bld) [Volum e fraction]on 11-08-2023 Hematocrit (Bld) [Volume fraction] 28.1 % Low 36.0-48.0 [facility] Hemoglobin [Mass/volume] in Bloodon 11-08-2023 Hemoglobin (Bld) [Mass/Vol] 8.7 g/dL Low 12.0-16.0 [facility] Laboratory - Chemistry and C hemistry - challengeon 11-08-2023 Albumin [Mass/Vol] 3.4 g/dL 3.4-5.0 [facility] ALP [Catalytic activity/Vol] 81 U/L 46-116 [facility] ALT [Catalytic activity/Vol] 26 U/L 14-59 [facility] AST [Catalytic activity/Vol] 23 U/L 15-37 [facility] Bilirubin [Mass/Vol] 0.3 mg/dL 0.2-1.0 [facility] Calcium [Mass/Vol] 8.7 mg/dL 8.5-10.1 [facility] Chloride [Moles/Vol] 93 mmol/L Low 98-107 [facility] CO2 [Moles/Vol] 27.4 mmol/L 21.0-32.0 [facility] Creatinine [Mass/Vol] 1.40 mg/dL High 0.55-1.02 [facility] GFR/1.73 sq M.predicted MDRD (S/P/Bld) [Vol rate/Area] 45 mL/min/{1.73_m2} Low >=60 [facility] Glucose [Mass/Vol] 96 mg/dL 74-106 [facility] Magnesium [Mass/Vol] 2.2 mg/dL 1.8-2.4 [facility] Potassium [Moles/Vol] 4.4 mmol/L 3.5-5.1 [facility] Protein [Mass/Vol] 7.3 g/dL 6.4-8.2 [facility] Sodium [Moles/Vol] 128 mmol/L Low 136-145 [facility] Urate [Mass/Vol] 5.6 mg/dL 2.6-6.0 [facility] Urea nitrogen [Mass/Vol] 20.0 mg/dL High 7.0-18.0 [facility] Urea nitrogen/Creatinine [Mass ratio] 14.3 mg/mg [facility] Bilirubin Ql (U) Negative NEGATIVE [facility] Glucose (U) [Mass/Vol] Negative NEGATIVE [facility] Ketones Ql (U) Negative NEGATIVE [facility] pH (U) 7.5 [pH] 5.0-9.0 [facility] Specific gravity (U) [Rel density] 1.010 1.005-1.025 [facility] Urobilinogen Qn (U) 0.2 {Chuy'U}/dL 0.2-1.0 [facility] Laboratory - Specimen inform ationon 11-08-2023 Appearance (U) CLEAR CLEAR [facility] Color (U) YELLOW YELLOW [facility] Laboratory - Urinalysison Leukocyte esterase Test strip Ql (U) Negative NEGATIVE [facility] Nitrite Ql (U) Negative NEGATIVE [facility] Protein (U) [Mass/Vol] 11.9 mg/dL <=11.9 [facility] Protein Ql (U) Negative NEG/TRACE [facility] Leukocytes [#/volume] correc maryuri for nucleated erythrocytes in Blood by Automated counon 11-08-2023 WBC corrected for nucl RBC Auto (Bld) [#/Vol] 7.3 10 3/uL 4.0-11.0 [facility] MCH Auto (RBC) [Entitic mass ]on 11-08-2023 MCH (RBC) [Entitic mass] 26.1 pg Low 26.7-34.0 [facility] MCHC Auto (RBC) [Mass/Vol]on 11-08-2023 MCHC (RBC) [Mass/Vol] 31.0 g/dL 29.9-35.2 [facility] MCV Auto (RBC) [Entitic vol] on 11-08-2023 MCV (RBC) [Entitic vol] 84.4 fL 81.0-99.0 [facility] No Panel Informationon 11-07 25-Hydroxy Vitamin D Total 32.6 ng/mL [facility] Comment on above: <20 ng/mL Vit D defi cient20-<30 ng/mL Vit D -193 ng/mL Vit D sufficient>100 ng/mL Potential Toxicity Parathyroid Hormone (Intact) 106 pg/mL Abnormal [facility] Comment on above: Performed at: - [address] [id number] Director: True Herron PhD, Phone: [phone] Phosphorus Level 3.8 mg/dL 2.6-4.7 [facility] Urine Occult Blood Negative NEGATIVE [facility] Urine Random Creatinine 73.41 mg/dL 20.00-300.0 0 [facility] Platelet mean volume Auto (B ld) [Entitic vol]on 11-08-2023 Platelet mean volume (Bld) [Entitic vol] 8.6 fL Low 9.5-13.5 [facility] Platelets Auto (Bld) [#/Vol] on 11-08-2023 Platelets (Bld) [#/Vol] 401 10 3/uL 150-450 [facility] RBC Auto (Bld) [#/Vol]on RBC (Bld) [#/Vol] 3.33 10 6/uL Low 4.20-5.40 [facility] Serum or plasma albumin/glob ulin mass ratioon 11-08-2023 Albumin/Globulin [Mass ratio] 0.9 {ratio} [facility] Serum or plasma anion gap de terminationon 11-08-2023 Anion gap [Moles/Vol] 12.0 mmol/L [facility] Urine protein/creatinine rat ioon 11-08-2023 Protein/Creatinine (U) [Ratio] 0.16 [facility] PTH INTACTon 08-04-2022 PTH, Intact 41 pg/mL Normal [facility] Comment on above: Performed By: #### P THINT ####[facility] [id number] [address]DrLissett Shelton HEMOGRAM AND PLATELon 2022 Hematocrit (Bld) [Volume fraction] 34.6 % Critically low 36.0-48.0 [facility] Comment on above: Performed By: #### H H #### [facility] Laboratory [address] [place] [address] Dr. Osmel Shelton Hemoglobin (Bld) [Mass/Vol] 11.1 g/dL Critically low 12.0-16.0 [facility] Comment on above: Performed By: #### H H #### [facility] [address] [place] [address] Dr. Osmel Shelton MCH (RBC) [Entitic mass] 29.3 pg Normal 26.7-34.0 [facility] Comment on above: Performed By: #### H H #### [facility] [address] [place] [address] Dr. Osmel Shelton MCHC (RBC) [Mass/Vol] 32.1 g/dL Normal 29.9-35.2 [facility] Comment on above: Performed By: #### H H #### [facility] [address] [place] [address] Dr. Osmel Shelton MCV (RBC) [Entitic vol] 91.3 fL Normal 81.0-99.0 [facility] Comment on above: Performed By: #### H H #### [facility] [address] [place] [address] Dr. Osmel Shelton PLT 306 103/ul Normal 150-450 [facility] Comment on above: Performed By: #### H H #### [facility] [address] [place] [address] Dr. Osmel Shelton RBC 3.79 106/ul Critically low 4.20-5.40 [facility] Comment on above: Performed By: #### H H #### [facility] [address] [place] [address] Dr. Osmel Shelton WBC 4.8 103/ul Normal 4.0-11.0 [facility] Comment on above: Performed By: #### H H #### [facility] [address] [place] [address] Dr. Osmel Shelton MAGNESIUMon 08-03-2022 Magnesium [Mass/Vol] 1.9 mg/dL Normal 1.8-2.4 [facility] Comment on above: Performed By: #### P HOS, MG, CMP, URIC #### [facility] [address] [address] [address] Osmel Shelton PHOSPHORUSon 08-03-2022 Phosphate [Mass/Vol] 4.4 mg/dL Normal 2.6-4.7 [facility] Comment on above: Performed By: #### P HOS, MG, CMP, URIC #### [facility] [address] [address] [address] Osmel Shelton PROF 14(COMP METB)on 023 Albumin [Mass/Vol] 3.6 g/dL Normal 3.4-5.0 [facility] Comment on above: Performed By: #### P HOS, MG, CMP, URIC ####[facility] [id number] [address]DrLissett Shelton Albumin/Globulin [Mass ratio] 0.9 {ratio} Normal [facility] Comment on above: Performed By: #### P HOS, MG, CMP, URIC ####[facility] [id number] [address]DrLissett Shelton ALP [Catalytic activity/Vol] 136 U/L Critically high 46-116 [facility] Comment on above: Performed By: #### P HOS, MG, CMP, URIC ####[facility] [id number] [address]DrLissett Shelton ALT [Catalytic activity/Vol] 29 U/L Normal 14-59 [facility] Comment on above: Performed By: #### P HOS, MG, CMP, URIC ####[facility] [address] [address]DrLissett Shelton Anion gap [Moles/Vol] 13.5 mmol/L Normal [facility] Comment on above: Performed By: #### P HOS, MG, CMP, URIC ####[facility] [id number] [address]DrLissett Shelton AST [Catalytic activity/Vol] 27 U/L Normal 15-37 [facility] Comment on above: Performed By: #### P HOS, MG, CMP, URIC ####[facility] [address] [address]Dr. Osmel Shelton Bilirubin [Mass/Vol] 0.2 mg/dL Normal 0.2-1.0 [facility] Comment on above: Performed By: #### P HOS, MG, CMP, URIC ####[facility] [id number] [place] [address] [place], [place] [address]Dr. Osmel Shelton Calcium [Mass/Vol] 9.0 mg/dL Normal 8.5-10.1 [facility] Comment on above: Performed By: #### P HOS, MG, CMP, URIC ####[facility] [address] [place], [place] [address]Dr. Osmel Shelton Chloride [Moles/Vol] 100 mmol/L Normal 98-107 [facility] Comment on above: Performed By: #### P HOS, MG, CMP, URIC ####[facility] [address] [place], [place] [address]Dr. Osmel Shelton CO2 [Moles/Vol] 25.7 mmol/L Normal 21.0-32.0 [facility] Comment on above: Performed By: #### P HOS, MG, CMP, URIC ####[facility] [address] [place] [address] [address]Dr. Osmel Shelton Creatinine [Mass/Vol] 1.40 mg/dL Critically high 0.55-1.02 [facility] Comment on above: Performed By: #### P HOS, MG, CMP, URIC ####[facility] [address] [place] [address] [address]Dr. Osmel Shelton EGFR-AF MALAYSIAN 45 mL/min/1.73m2 Critically low >=60 [facility] Comment on above: Performed By: #### P HOS, MG, CMP, URIC ####[facility] [address] [address]Dr. Osmel Shelton EGFR-NON AF MALAYSIAN 37 mL/min/1.73m2 Critically low >=60 [facility] Comment on above: Performed By: #### P HOS, MG, CMP, URIC ####[facility] [address] [address]Dr. Osmel Shelton Globulin (S) [Mass/Vol] 4.2 g/dL Normal T [facility] Comment on above: Performed By: #### P HOS, MG, CMP, URIC ####[facility] [address] [place] [address]Dr. Osmel Shelton Glucose [Mass/Vol] 101 mg/dL Normal 74-106 [facility] Comment on above: Performed By: #### P HOS, MG, CMP, URIC ####[facility] [address] [place], [place] [address]Dr. Osmel Shelton Potassium [Moles/Vol] 4.2 mmol/L Normal 3.5-5.1 [facility] Comment on above: Performed By: #### P HOS, MG, CMP, URIC ####[facility] [address] [place], [place] [address]Dr. Osmel Shelton Protein [Mass/Vol] 7.8 g/dL Normal 6.4-8.2 [facility] Comment on above: Performed By: #### P HOS, MG, CMP, URIC ####[facility] [address] [place], [place] [address]Dr. Osmel Shelton Sodium [Moles/Vol] 135 mmol/L Critically low 136-145 [facility] Comment on above: Performed By: #### P HOS, MG, CMP, URIC ####[facility] [address] [place], [place] [address]Dr. Osmel Shelton Urea nitrogen [Mass/Vol] 23.0 mg/dL Critically high 7.0-18.0 [facility] Comment on above: Performed By: #### P HOS, MG, CMP, URIC ####[facility] [address] [place], [place] [address]Dr. Osmel Shelton Urea nitrogen/Creatinine [Mass ratio] 16.4 mg/mg Normal [facility] Comment on above: Performed By: #### P HOS, MG, CMP, URIC ####[facility] [address] [address]Dr. Osmel Shelton UA RANDOMon 08-03-2022 Bilirubin Ql (U) Negative Normal NEGATIVE [facility] Comment on above: Performed By: #### U A #### [facility] [address] [place] [address] Dr. Osmel Shelton Clarity (U) CLEAR Normal CLEAR [facility] Comment on above: Performed By: #### U A #### [facility] [address] [place] [address] Dr. Osmel Shelton Color (U) LT. YELLOW Normal YELLOW [facility] Comment on above: Performed By: #### U A #### [facility] [address] [place] [address] Dr. Osmel Shelton Glucose Ql (U) Negative Normal NEGATIVE [facility] Comment on above: Performed By: #### U A #### [facility] [address] [place] [address] Dr. Osmel Shelton Hemoglobin Ql (U) Negative Normal NEGATIVE [facility] Comment on above: Performed By: #### U A #### [facility] [address] [place] [address] Dr. Osmel Shelton Ketones Ql (U) Negative Normal NEGATIVE [facility] Comment on above: Performed By: #### U A #### [facility] [address] [place] [address] Dr. Osmel Shelton LEUKOCYTES Negative Normal NEGATIVE [facility] Comment on above: Performed By: #### U A #### [facility] [address] [place] [address] Dr. Osmel Shelton Nitrite Ql (U) Negative Normal NEGATIVE [facility] Comment on above: Performed By: #### U A #### [facility] [address] [place] [address] Dr. Osmel Shelton pH (U) 5.5 [pH] Normal 5-9 [facility] Comment on above: Performed By: #### U A #### [facility] [address] [place] [address] Dr. Osmel Shelton SPEC GRAVITY <=1.005 Abnormal 1.005-<=1.02 5 [facility] Comment on above: Performed By: #### U A #### [facility] [address] [address] [address] Osmel Shelton UA PROTEIN Negative Normal NEGATIVE/ TRACE [facility] Comment on above: Performed By: #### U A #### [facility] [address] [address] [address] Osmel Shelton Urobilinogen Qn (U) 0.2 {Chuy'U}/dL Normal 0.2 - 1. 0 [facility] Comment on above: Performed By: #### U A #### [facility] [address] [place] [address] Dr. Osmel Shelton URIC ACID SERUMon 08-03-2022 Urate [Mass/Vol] 8.4 mg/dL Critically high 2.6-6.0 [facility] Comment on above: Performed By: #### P HOS, MG, CMP, URIC ####[facility] [address] [address]Dr. Osmel Shelton URINE T PROTEIN CREAT RATIOo n 08-03-2022 Protein (U) [Mass/Vol] 4.6 mg/dL Normal <=12.0 [facility] Comment on above: Performed By: #### U RTPCR #### [facility] [address] [place] [address] Dr. Osmel Shelton UR PROT CREAT RAT 0.09 Normal [facility] Comment on above: Performed By: #### U RTPCR #### [facility] [address] [address] [address] Osmel Shelton URINE CREAT 50.21 mg/dL Normal 20.00-300.00 [facility] Comment on above: Performed By: #### U RTPCR #### [facility] [address] [place] [address] Dr. Osmel Shelton VITAMIN D 25 OHon 08-03-2022 VIT D 25-OH 20.9 ng/mL Normal [facility] Comment on above: Performed By: #### V ITAD ####[facility] [address] [id number]. Osmel Shelton VIT D RANGES SEE BELOW Normal [facility] Comment on above: Result Comment: <20 ng/mL Vit D deficient 20 - <30 ng/mL Vit D insufficient 30 - 100 ng/mL Vit D sufficient >100 ng/mL Potential Toxicity Performed By: #### V ITAD ####[facility] [address] [address]Dr. Osmel Shelton CBC AUTO DIFFon 07-09-2022 BASO # 0.0 103/ul Normal 0.0-0.1 [facility] Comment on above: Performed By: #### C BC #### [facility] [address] [place] [address] Dr. Osmel Shelton Basophils/100 WBC (Bld) 0.5 % Normal 0.2-2.0 [facility] Comment on above: Performed By: #### C BC #### [facility] [address] [place] [address] Dr. Osmel Shelton EO # 0.2 103/ul Normal 0.0-0.7 [facility] Comment on above: Performed By: #### C BC #### [facility] [address] [place] [address] Dr. Osmel Shelton Eosinophils/100 WBC (Bld) 2.9 % Normal 0.9-7.0 [facility] Comment on above: Performed By: #### C BC #### [facility] [address] [place] [address] Dr. Osmel Shelton Erythrocyte distribution width (RBC) [Ratio] 14.3 % Normal 11.0-15.0 [facility] Comment on above: Performed By: #### C BC #### [facility] [address] [place] [address] Dr. Osmel Shelton Hematocrit (Bld) [Volume fraction] 34.4 % Critically low 36.0-48.0 [facility] Comment on above: Performed By: #### C BC #### [facility] [address] [place] [address] Dr. Osmel Shelton Hemoglobin (Bld) [Mass/Vol] 11.4 g/dL Critically low 12.0-16.0 [facility] Comment on above: Performed By: #### C BC #### [facility] [address] [place] [address] Dr. Osmel Shelton IG # 0.02 10e3/ul Normal 0.00-0.03 [facility] Comment on above: Performed By: #### C BC #### [facility] [address] [place] [address] Dr. Osmel Shelton IG % 0.4 % Normal 0.0-0.5 [facility] Comment on above: Performed By: #### C BC #### [facility] [address] [place] [address] Dr. Osmel Shelton LYMPH # 1.3 103/ul Normal 1.2-3.8 [facility] Comment on above: Performed By: #### C BC #### [facility] [address] [place] [address] Dr. Osmel Shelton Lymphocytes/100 WBC (Bld) 23.0 % Normal 20.5-60.0 [facility] Comment on above: Performed By: #### C BC #### [facility] [address] [place] [address] Dr. Osmel Shelton MANUAL DIFF REQ NO Normal [facility] Comment on above: Performed By: #### C BC #### [facility] [address] [place] [address] Dr. Osmel Shelton MCH (RBC) [Entitic mass] 29.8 pg Normal 26.7-34.0 [facility] Comment on above: Performed By: #### C BC #### [facility] [address] [place] [address] Dr. Osmel Shelton MCHC (RBC) [Mass/Vol] 33.1 g/dL Normal 29.9-35.2 [facility] Comment on above: Performed By: #### C BC #### [facility] [address] [place] [address] Dr. Osmel Shelton MCV (RBC) [Entitic vol] 89.8 fL Normal 81.0-99.0 [facility] Comment on above: Performed By: #### C BC #### [facility] [address] [place] [address] Dr. Osmel Shelton MONO # 0.6 103/ul Normal 0.3-0.8 [facility] Comment on above: Performed By: #### C BC #### [facility] [address] [place] [address] Dr. Osmel Shelton Monocytes/100 WBC (Bld) 11.0 % Normal 1.7-12.0 [facility] Comment on above: Performed By: #### C BC #### [facility] [address] [place] [address] Dr. Osmel Shelton NEUT # 3.4 103/ul Normal 1.4-6.5 [facility] Comment on above: Performed By: #### C BC #### [facility] [address] [place] [address] Dr. Osmel Shelton Neutrophils/100 WBC (Bld) 62.2 % Normal 43.0-75.0 [facility] Comment on above: Performed By: #### C BC #### [facility] [address] [place] [address] Dr. Osmel Shelton Platelet mean volume (Bld) [Entitic vol] 9.4 fL Critically low 9.5-13.5 [facility] Comment on above: Performed By: #### C BC #### [facility] [address] [place] [address] Dr. Osmel Shelton PLT 327 103/ul Normal 150-450 [facility] Comment on above: Performed By: #### C BC #### [facility] [address] [place], [place] [id number] Dr. Osmel Shelton RBC 3.83 106/ul Critically low 4.20-5.40 [facility] Comment on above: Performed By: #### C BC #### [facility] [address] [place] [address] Dr. Osmel Shelton WBC 5.5 103/ul Normal 4.0-11.0 [facility] Comment on above: Performed By: #### C BC #### [facility] [address] [place], [place] [address] Dr. Osmel Shelton PROF CHEM 8 (BAS METB)on Anion gap [Moles/Vol] 11.7 mmol/L Normal [facility] Comment on above: Performed By: #### B MP ####[facility] [address] [place] [id number]. Osmel Shelton Calcium [Mass/Vol] 8.8 mg/dL Normal 8.5-10.1 [facility] Comment on above: Performed By: #### B MP ####[facility] [address] [place] [address]Dr. Osmel Shelton Chloride [Moles/Vol] 99 mmol/L Normal 98-107 [facility] Comment on above: Performed By: #### B MP ####[facility] [address] [place] [address]DrLissett Shelton CO2 [Moles/Vol] 27.1 mmol/L Normal 21.0-32.0 [facility] Comment on above: Performed By: #### B MP ####[facility] [address] [place] [address]Dr. Osmel Shelton Creatinine [Mass/Vol] 1.38 mg/dL Critically high 0.55-1.02 [facility] Comment on above: Performed By: #### B MP ####[facility] [address] [place] [address]Dr. Osmel Shelton EGFR-AF MALAYSIAN 46 mL/min/1.73m2 Critically low >=60 [facility] Comment on above: Performed By: #### B MP ####[facility] [address] [place] [id number]. Osmel Shelton EGFR-NON AF MALAYSIAN 38 mL/min/1.73m2 Critically low >=60 [facility] Comment on above: Performed By: #### B MP ####[facility] [address] [place] [id number]. Osmel Shelton Glucose [Mass/Vol] 105 mg/dL Normal 74-106 [facility] Comment on above: Performed By: #### B MP ####[facility] [address] [place] [address]Dr. Osmel Shelton Potassium [Moles/Vol] 4.8 mmol/L Normal 3.5-5.1 [facility] Comment on above: Performed By: #### B MP ####[facility] [address] [place] [address]Dr. Osmel Nikita Sodium [Moles/Vol] 133 mmol/L Critically low 136-145 [facility] Comment on above: Performed By: #### B MP ####[facility] [address] [place] [address]Dr. Osmel Shelton Urea nitrogen [Mass/Vol] 19.0 mg/dL Critically high 7.0-18.0 [facility] Comment on above: Performed By: #### B MP ####[facility] [address] [place], [place] [address]Dr. Osmel Shelton Urea nitrogen/Creatinine [Mass ratio] 13.8 mg/mg Normal [facility] Comment on above: Performed By: #### B MP ####[facility] [address] [place], [place] [address]Dr. Osmel Shelton PULMONARY FUNCTION TESTon PULMONARY FUNCTION TEST PULMONARY FUNCTI ON TEST NOTE DATE: 05/20/2022 SIX MINUTE WALK [...] O2 indicated. Clinical correlation required. Normal [facility] US KIDNEYSon 04-15-2022 US KIDNEYS [...] by: TIMOTHY GUIDRY Date: 2022-04-15 16:[address] [facility] [address] LUNG CANCER SCREENINGon 1 CT LUNG [...] by: TIMOTHY GUIDRY Date: 2022-01-19 14:40 Normal [facility] CBC AUTO DIFFon 01-05-2022 BASO # 0.1 103/ul Normal 0.0-0.1 [facility] Comment on above: Performed By: #### C BC #### [facility] [address] [place] [address] Dr. Osmel Shelton Basophils/100 WBC (Bld) 1.0 % Normal 0.2-2.0 [facility] Comment on above: Performed By: #### C BC #### [facility] [address] [place] [address] Dr. Osmel Shelton EO # 0.2 103/ul Normal 0.0-0.7 [facility] Comment on above: Performed By: #### C BC #### [facility] [address] [place] [address] Dr. Osmel Shelton Eosinophils/100 WBC (Bld) 3.6 % Normal 0.9-7.0 [facility] Comment on above: Performed By: #### C BC #### [facility] [address] [place] [address] Dr. Osmel Shelton Erythrocyte distribution width (RBC) [Ratio] 14.1 % Normal 11.0-15.0 [facility] Comment on above: Performed By: #### C BC #### [facility] [address] [place] [address] Dr. Osmel Shelton Hematocrit (Bld) [Volume fraction] 36.5 % Normal 36.0-48.0 [facility] Comment on above: Performed By: #### C BC #### [facility] [address] [place] [address] Dr. Osmel Shelton Hemoglobin (Bld) [Mass/Vol] 11.8 g/dL Critically low 12.0-16.0 [facility] Comment on above: Performed By: #### C BC #### [facility] [address] [place] [address] Dr. Osmel Shelton IG # 0.02 10e3/ul Normal 0.00-0.03 [facility] Comment on above: Performed By: #### C BC #### [facility] [address] [place] [address] Dr. Osmel Shelton IG % 0.3 % Normal 0.0-0.5 [facility] Comment on above: Performed By: #### C BC #### [facility] [address] [place] [address] Dr. Osmel Shelton LYMPH # 1.3 103/ul Normal 1.2-3.8 [facility] Comment on above: Performed By: #### C BC #### [facility] [address] [place] [address] Dr. Osmel Shelton Lymphocytes/100 WBC (Bld) 21.4 % Normal 20.5-60.0 [facility] Comment on above: Performed By: #### C BC #### [facility] [address] [place] [address] Dr. Osmel Shelton MANUAL DIFF REQ NO Normal [facility] Comment on above: Performed By: #### C BC #### [facility] [address] [place] [address] Dr. Osmel Shelton MCH (RBC) [Entitic mass] 29.3 pg Normal 26.7-34.0 [facility] Comment on above: Performed By: #### C BC #### [facility] [address] [place] [address] Dr. Osmel Shelton MCHC (RBC) [Mass/Vol] 32.3 g/dL Normal 29.9-35.2 [facility] Comment on above: Performed By: #### C BC #### [facility] [address] [place] [address] Dr. Osmel Shelton MCV (RBC) [Entitic vol] 90.6 fL Normal 81.0-99.0 [facility] Comment on above: Performed By: #### C BC #### [facility] [address] [place] [address] Dr. Osmel Shelton MONO # 0.7 103/ul Normal 0.3-0.8 [facility] Comment on above: Performed By: #### C BC #### [facility] [address] [place] [address] Dr. Osmel Shelton Monocytes/100 WBC (Bld) 11.2 % Normal 1.7-12.0 [facility] Comment on above: Performed By: #### C BC #### [facility] [address] [address] [address] Osmel Shelton NEUT # 3.7 103/ul Normal 1.4-6.5 [facility] Comment on above: Performed By: #### C BC #### [facility] [address] [address] [address] Osmel Shelton Neutrophils/100 WBC (Bld) 62.5 % Normal 43.0-75.0 [facility] Comment on above: Performed By: #### C BC #### [facility] [address] [address] [address] Osmel Shelton Platelet mean volume (Bld) [Entitic vol] 9.4 fL Critically low 9.5-13.5 [facility] Comment on above: Performed By: #### C BC #### [facility] [address] [place] [address] Dr. Osmel Shelton PLT 364 103/ul Normal 150-450 [facility] Comment on above: Performed By: #### C BC #### [facility] [address] [address] [address] Osmel Shelton RBC 4.03 106/ul Critically low 4.20-5.40 [facility] Comment on above: Performed By: #### C BC #### [facility] [address] [place] [address] Dr. Osmel Shelton WBC 5.9 103/ul Normal 4.0-11.0 [facility] Comment on above: Performed By: #### C BC #### [facility] [address] [place] [address] Dr. Osmel Shelton LIPID PROFILEon 01-05-2022 CHOL-HDL RATIO NORM SEE BELOW Normal [facility] Comment on above: Result Comment: 3.3 - 4.4 LOW RISK 4.4 - 7.1 AVERAGE RISK 7.1 - 11.0 MODERATE RISK >11.0 HIGH RISK Performed By: #### C MP, LIPID #### [facility] [address] [place] [address] Dr. Omsel Shelton Cholesterol [Mass/Vol] 149 mg/dL Normal <=200 [facility] Comment on above: Performed By: #### C MP, LIPID #### [facility] [address] [address] [address] Osmel Shelton Cholesterol in HDL [Mass/Vol] 75 mg/dL Critically high 40-60 [facility] Comment on above: Performed By: #### C MP, LIPID #### [facility] [address] [address] [address] Osmel Shelton Cholesterol in LDL [Mass/Vol] 60.4 mg/dL Normal [facility] Comment on above: Performed By: #### C MP, LIPID #### [facility] [address] [place] [address] Dr. Osmel Shelton Cholesterol.total/Kyung sterol in HDL [Mass ratio] 2.0 {ratio} Normal [facility] Comment on above: Performed By: #### C MP, LIPID #### [facility] [address] [place] [address] Dr. Osmel Shelton HDL NORMAL > or = 60 mg/dl - LO W CARDIOVASCULAR RISK <40 mg/dl - HIGH CARDIOVASCULAR RISK Normal [facility] Comment on above: Performed By: #### C MP, LIPID #### [facility] [address] [place] [address] Dr. Osmel Shelton LDL CALC NORMAL SEE BELOW Normal [facility] Comment on above: Result Comment: <100 mg/dl OPTIMAL 100 - 129 mg/dl NEAR OR ABOVE OPTIMAL 130 - 159 mg/dl BORDERLINE HIGH 160 - 189 mg/dl HIGH >190 mg/dl VERY HIGH Performed By: #### C MP, LIPID #### [facility] [address] [address] [address] Osmel Shelton Triglyceride [Mass/Vol] 68 mg/dL Normal <=150 T [facility] Comment on above: Performed By: #### C MP, LIPID #### [facility] [address] [address] [address] Osmel Shelton VLDL CALC 13.6 mg/dL Normal [facility] Comment on above: Performed By: #### C MP, LIPID #### [facility] [address] [address] [address] Osmel Shelton PROF 14(COMP METB)on 022 Albumin [Mass/Vol] 3.6 g/dL Normal 3.4-5.0 [facility] Comment on above: Performed By: #### C MP, LIPID #### [facility] [address] [address] [address] Osmel Shelton Albumin/Globulin [Mass ratio] 0.9 {ratio} Normal [facility] Comment on above: Performed By: #### C MP, LIPID #### [facility] [address] [address] [address] Osmel Shelton ALP [Catalytic activity/Vol] 152 U/L Critically high 46-116 [facility] Comment on above: Performed By: #### C MP, LIPID #### [facility] [address] [place] [address] Dr. Osmel Shelton ALT [Catalytic activity/Vol] 29 U/L Normal 14-59 [facility] Comment on above: Performed By: #### C MP, LIPID #### [facility] [address] [address] [address] Osmel Shelton Anion gap [Moles/Vol] 11.1 mmol/L Normal [facility] Comment on above: Performed By: #### C MP, LIPID #### [facility] [address] [address] [address] Osmel Shelton AST [Catalytic activity/Vol] 23 U/L Normal 15-37 [facility] Comment on above: Performed By: #### C MP, LIPID #### [facility] [address] [address] [address] Osmel Shelton Bilirubin [Mass/Vol] 0.3 mg/dL Normal 0.2-1.0 [facility] Comment on above: Performed By: #### C MP, LIPID #### [facility] [address] [place] [address] Dr. Osmel Shelton Calcium [Mass/Vol] 8.9 mg/dL Normal 8.5-10.1 [facility] Comment on above: Performed By: #### C MP, LIPID #### [facility] [address] [address] [address] Osmel Shelton Chloride [Moles/Vol] 96 mmol/L Critically low 98-107 [facility] Comment on above: Performed By: #### C MP, LIPID #### [facility] [address] [address] [address] Osmel Shelton CO2 [Moles/Vol] 28.2 mmol/L Normal 21.0-32.0 [facility] Comment on above: Performed By: #### C MP, LIPID #### [facility] [address] [address] [address] Osmel Shelton Creatinine [Mass/Vol] 1.46 mg/dL Critically high 0.55-1.02 [facility] Comment on above: Performed By: #### C MP, LIPID #### [facility] [address] [place] [address] Dr. Osmel Shelton EGFR-AF MALAYSIAN 43 mL/min/1.73m2 Critically low >=60 [facility] Comment on above: Performed By: #### C MP, LIPID #### [facility] [address] [place] [address] Dr. Osmel Shelton EGFR-NON AF MALAYSIAN 36 mL/min/1.73m2 Critically low >=60 [facility] Comment on above: Performed By: #### C MP, LIPID #### [facility] [address] [address] [address] Osmel Shelton Globulin (S) [Mass/Vol] 4.2 g/dL Normal T [facility] Comment on above: Performed By: #### C MP, LIPID #### [facility] [address] [address] [address] Osmel Shelton Glucose [Mass/Vol] 95 mg/dL Normal 74-106 [facility] Comment on above: Performed By: #### C MP, LIPID #### [facility] [address] [place] [address] Dr. Osmel Shelton Potassium [Moles/Vol] 5.3 mmol/L Critically high 3.5-5.1 [facility] Comment on above: Performed By: #### C MP, LIPID #### [facility] [address] [place] [address] Dr. Osmel Shelton Protein [Mass/Vol] 7.8 g/dL Normal 6.4-8.2 [facility] Comment on above: Performed By: #### C MP, LIPID #### [facility] [address] [place] [address] Dr. Osmel Shelton Sodium [Moles/Vol] 130 mmol/L Critically low 136-145 [facility] Comment on above: Performed By: #### C MP, LIPID #### [facility] [address] [place] [address] Dr. Osmel Shelton Urea nitrogen [Mass/Vol] 22.0 mg/dL Critically high 7.0-18.0 [facility] Comment on above: Performed By: #### C MP, LIPID #### [facility] [address] [place] [address] Dr. Osmel Shelton Urea nitrogen/Creatinine [Mass ratio] 15.1 mg/mg Normal [facility] Comment on above: Performed By: #### C MP, LIPID #### [facility] [address] [place] [address] Dr. Osmel Shelton Vital Signs Date Time Vital Sign Value Performing Clinician Facility 12-28-2024 10:42-0400 Body height 157.48 cm Lisa Perez MD Work Phone: [facility] 12-28-2024 10:42-0400 Body mass index (BMI) [Ratio] 36 kg/m2 Lisa Perez MD Work Phone: [facility] 12-28-2024 10:42-0400 Body weight 89.35 kg Lisa Perez MD Work Phone: [facility] 12-28-2024 10:42-0400 Diastolic blood pressure 65 mm[Hg] Lisa Perez MD Work Phone: [facility] 12-28-2024 10:42-0400 Heart rate 77 /min Lisa Perez MD Work Phone: [facility] 12-28-2024 10:42-0400 Systolic blood pressure 95 mm[Hg] Lisa Perez MD Work Phone: [facility] 12-25-2024 15:13-0400 Body height 157.48 cm Lisa Perez MD Work Phone: [facility] 12-25-2024 15:13-0400 Body mass index (BMI) [Ratio] 36.1 kg/m2 Lisa Perez MD Work Phone: [facility] 12-25-2024 15:13-0400 Body temperature 98.2 [degF] Lisa Perez MD Work Phone: [facility] 12-25-2024 15:13-0400 Body weight 89.47 kg Lisa Perez MD Work Phone: [facility] 12-25-2024 15:13-0400 Diastolic blood pressure 76 mm[Hg] Lisa Perez MD Work Phone: [facility] 12-25-2024 15:13-0400 Heart rate 93 /min Lisa Perez MD Work Phone: [facility] 12-25-2024 15:13-0400 Respiratory rate 22 /min Lisa Perez MD Work Phone: [facility] 12-25-2024 15:13-0400 SaO2% (BldA) [Mass fraction] 96 % Lisa Perez MD Work Phone: [facility] 12-25-2024 15:13-0400 Systolic blood pressure 98 mm[Hg] Lisa Perez MD Work Phone: [facility] 11-13-2024 13:50-0400 Body mass index (BMI) [Ratio] 33.98 kg/m2 Nolvia Jimenez NP Work Phone: [facility] 11-13-2024 13:50-0400 Body temperature 98.49 [degF] Nolvia Jimenez OBEDIENCE TRAINER Work Phone: [facility] 11-13-2024 13:50-0400 Body weight 87 kg Nolvia Holmz OBEDIENCE TRAINER Work Phone: [facility] 11-13-2024 13:50-0400 Diastolic blood pressure 72 mm[Hg] Nolvia Hiholz OBEDIENCE TRAINER Work Phone: [facility] 11-13-2024 13:50-0400 Heart rate 73 /min Nolviabrown Hiholz OBEDIENCE TRAINER Work Phone: [facility] 11-13-2024 13:50-0400 Respiratory rate 20 /min Nolviabrown Hiholz OBEDIENCE TRAINER Work Phone: [facility] 11-13-2024 13:50-0400 SaO2% (BldA) [Mass fraction] 95 % Nolvia Holmz OBEDIENCE TRAINER Work Phone: [facility] 11-13-2024 13:50-0400 Systolic blood pressure 110 mm[Hg] Nolvia Holmz OBEDIENCE TRAINER Work Phone: [facility] 11-01-2024 13:15-0400 Diastolic blood pressure 84 mm[Hg] Lisa Perez MD Work Phone: [facility] 11-01-2024 13:15-0400 Heart rate 65 /min Lisa Perez MD Work Phone: [facility] 11-01-2024 13:15-0400 Respiratory rate 16 /min Lisa Perez MD Work Phone: [facility] 11-01-2024 13:15-0400 SaO2% (BldA) [Mass fraction] 99 % Lisa Perez MD Work Phone: [facility] 11-01-2024 13:15-0400 Systolic blood pressure 122 mm[Hg] Lisa Perez MD Work Phone: [facility] 11-01-2024 10:50-0400 Body height 160.02 cm Lisa Perez MD Work Phone: [facility] 11-01-2024 10:50-0400 Body weight 88.45 kg Lisa Perez MD Work Phone: [facility] 10-10-2024 15:51-0400 Body mass index (BMI) [Ratio] 34.72 kg/m2 Nolvia Mihaiz OBEDIENCE TRAINER Work Phone: [facility] 10-10-2024 15:51-0400 Body temperature 98.49 [degF] Nolvia Aichholz OBEDIENCE TRAINER Work Phone: [facility] 10-10-2024 15:51-0400 Body weight 88.91 kg Nolvia Aichholz OBEDIENCE TRAINER Work Phone: [facility] 10-10-2024 15:51-0400 Diastolic blood pressure 88 mm[Hg] Nolvia Aichholz OBEDIENCE TRAINER Work Phone: [facility] 10-10-2024 15:51-0400 Heart rate 86 /min Nolvia Aichholz OBEDIENCE TRAINER Work Phone: [facility] 10-10-2024 15:51-0400 Respiratory rate 26 /min Nolvai Aichholz OBEDIENCE TRAINER Work Phone: [facility] 10-10-2024 15:51-0400 SaO2% (BldA) [Mass fraction] 95 % Nolvia Aichholz OBEDIENCE TRAINER Work Phone: [facility] 10-10-2024 15:51-0400 Systolic blood pressure 120 mm[Hg] Nolvia Aichholz OBEDIENCE TRAINER Work Phone: [facility] 09-06-2024 15:24-0400 Body mass index (BMI) [Ratio] 35.46 kg/m2 Nolvia Aichholz OBEDIENCE TRAINER Work Phone: [facility] 09-06-2024 15:24-0400 Body temperature 98.6 [degF] Nolvia Aichholz OBEDIENCE TRAINER Work Phone: [facility] 09-06-2024 15:24-0400 Body weight 90.81 kg Nolvia Jimenez OBEDIENCE TRAINER Work Phone: [facility] 09-06-2024 15:24-0400 Diastolic blood pressure 98 mm[Hg] Nolviabrown Hiholz OBEDIENCE TRAINER Work Phone: [facility] 09-06-2024 15:24-0400 Heart rate 98 /min Nolviabrown Hiholz OBEDIENCE TRAINER Work Phone: [facility] 09-06-2024 15:24-0400 Respiratory rate 20 /min Nolvia Koltonholz OBEDIENCE TRAINER Work Phone: [facility] 09-06-2024 15:24-0400 SaO2% (BldA) [Mass fraction] 95 % Nolvia Hiholz OBEDIENCE TRAINER Work Phone: [facility] 09-06-2024 15:24-0400 Systolic blood pressure 128 mm[Hg] Nolvia Koltonholz OBEDIENCE TRAINER Work Phone: [facility] 07-25-2024 13:37-0400 Body height 160.02 cm [facility] 07-25-2024 13:37-0400 Body mass index (BMI) [Ratio] 35.1 kg/m2 [facility] 07-25-2024 13:37-0400 Body temperature 97.8 [degF] [facility] 07-25-2024 13:37-0400 Body weight 89.86 kg [facility] 07-25-2024 13:37-0400 Diastolic blood pressure 56 mm[Hg] [facility] 07-25-2024 13:37-0400 Heart rate 93 /min [facility] 07-25-2024 13:37-0400 Respiratory rate 20 /min [facility] 07-25-2024 13:37-0400 SaO2% (BldA) [Mass fraction] 93 % [facility] 07-25-2024 13:37-0400 Systolic blood pressure 108 mm[Hg] [facility] 06-08-2024 14:43-0400 Body mass index (BMI) [Ratio] 35.39 kg/m2 Nolvia Jimenez OBEDIENCE TRAINER Work Phone: [facility] 06-08-2024 14:43-0400 Body temperature 97.81 [degF] Nolvia Jimenez OBEDIENCE TRAINER Work Phone: [facility] 06-08-2024 14:43-0400 Body weight 90.63 kg Nolvia Jimenez OBEDIENCE TRAINER Work Phone: [facility] 06-08-2024 14:43-0400 Diastolic blood pressure 80 mm[Hg] Nolvia Holmz OBEDIENCE TRAINER Work Phone: [facility] 06-08-2024 14:43-0400 Heart rate 72 /min Nolvia Jimenez OBEDIENCE TRAINER Work Phone: [facility] 06-08-2024 14:43-0400 Respiratory rate 19 /min Nolvia Jimenez OBEDIENCE TRAINER Work Phone: [facility] 06-08-2024 14:43-0400 SaO2% (BldA) [Mass fraction] 98 % Nolvia Jimenez OBEDIENCE TRAINER Work Phone: [facility] 06-08-2024 14:43-0400 Systolic blood pressure 144 mm[Hg] Nolvia Jimenez OBEDIENCE TRAINER Work Phone: [facility] 04-26-2024 15:02-0500 Body height 160 cm Shanda Cheng OBEDIENCE TRAINER Work Phone: [facility] 04-26-2024 15:02-0500 Body mass index (BMI) [Ratio] 35.96 kg/m2 Shanda Cheng OBEDIENCE TRAINER Work Phone: [facility] 04-26-2024 15:02-0500 Body temperature 97.2 [degF] Shanda Cheng OBEDIENCE TRAINER Work Phone: [facility] 04-26-2024 15:02-0500 Body weight 92.08 kg Shanda Cheng OBEDIENCE TRAINER Work Phone: [facility] 04-26-2024 15:02-0500 Diastolic blood pressure 84 mm[Hg] Shanda Cheng OBEDIENCE TRAINER Work Phone: [facility] 04-26-2024 15:02-0500 Heart rate 72 /min Shanda Cheng OBEDIENCE TRAINER Work Phone: [facility] 04-26-2024 15:02-0500 Respiratory rate 18 /min Shanda Cheng OBEDIENCE TRAINER Work Phone: [facility] 04-26-2024 15:02-0500 SaO2% (BldA) [Mass fraction] 94 % Shanda Cheng OBEDIENCE TRAINER Work Phone: [facility] 04-26-2024 15:02-0500 Systolic blood pressure 180 mm[Hg] Shanda Cheng OBEDIENCE TRAINER Work Phone: [facility] 04-18-2024 13:58-0500 Body height 160 cm Shanda Cheng OBEDIENCE TRAINER Work Phone: [facility] 04-18-2024 13:58-0500 Body mass index (BMI) [Ratio] 35.8 kg/m2 Shanda Cheng OBEDIENCE TRAINER Work Phone: [facility] 04-18-2024 13:58-0500 Body temperature 96.21 [degF] Shanda Cheng OBEDIENCE TRAINER Work Phone: [facility] 04-18-2024 13:58-0500 Body weight 91.67 kg Shanda Cheng OBEDIENCE TRAINER Work Phone: [facility] 04-18-2024 13:58-0500 Diastolic blood pressure 82 mm[Hg] Shanda Cheng OBEDIENCE TRAINER Work Phone: [facility] 04-18-2024 13:58-0500 Heart rate 96 /min Shanda Cheng OBEDIENCE TRAINER Work Phone: [facility] 04-18-2024 13:58-0500 Respiratory rate 18 /min Shanda Cheng OBEDIENCE TRAINER Work Phone: [facility] 04-18-2024 13:58-0500 SaO2% (BldA) [Mass fraction] 97 % Shanda Cheng OBEDIENCE TRAINER Work Phone: [facility] 04-18-2024 13:58-0500 Systolic blood pressure 138 mm[Hg] Shanda Cheng OBEDIENCE TRAINER Work Phone: [facility] 01-17-2024 13:25-0400 Body mass index (BMI) [Ratio] 34.76 kg/m2 Shanda Cheng OBEDIENCE TRAINER Work Phone: [facility] 01-17-2024 13:25-0400 Body temperature 97.81 [degF] Shanda Cheng OBEDIENCE TRAINER Work Phone: [facility] 01-17-2024 13:25-0400 Body weight 89 kg Shanda Cheng OBEDIENCE TRAINER Work Phone: [facility] 01-17-2024 13:25-0400 Diastolic blood pressure 72 mm[Hg] Shanda Cheng OBEDIENCE TRAINER Work Phone: [facility] 01-17-2024 13:25-0400 Heart rate 84 /min Shanda Cheng OBEDIENCE TRAINER Work Phone: [facility] 01-17-2024 13:25-0400 SaO2% (BldA) [Mass fraction] 98 % Shanda Cheng OBEDIENCE TRAINER Work Phone: [facility] 01-17-2024 13:25-0400 Systolic blood pressure 130 mm[Hg] Shanda Cheng OBEDIENCE TRAINER Work Phone: [facility] 12-20-2023 15:00-0400 Diastolic blood pressure 75 mm[Hg] MD Jackelyn Diggs Work Phone: [facility] 12-20-2023 15:00-0400 Systolic blood pressure 136 mm[Hg] MD Jackelyn Diggs Work Phone: [facility] 12-17-2023 14:48-0400 Heart rate 81 /min MD Jackelyn Diggs Work Phone: [facility] 11-16-2023 15:26-0400 Body height 154.94 cm [facility] 11-16-2023 15:26-0400 Body mass index (BMI) [Ratio] 38.4 kg/m2 [facility] 11-16-2023 15:26-0400 Body temperature 96.1 [degF] [facility] 11-16-2023 15:26-0400 Body weight 92.24 kg [facility] 11-16-2023 15:26-0400 Diastolic blood pressure 79 mm[Hg] [facility] 11-16-2023 15:26-0400 Respiratory rate 20 /min [facility] 11-16-2023 15:26-0400 Systolic blood pressure 171 mm[Hg] [facility] 03-09-2023 11:20-0500 Body height 154.94 cm Jackelyn Diggs Other [facility] [employer] Other 03-09-2023 11:20-0500 Body mass index (BMI) [Ratio] 38.62 kg/m2 Jackelyn Diggs Other [facility] [employer] Other 03-09-2023 11:20-0500 Body temperature 96.7 [degF] Jackelyn Diggs Other [facility] [employer] Other 03-09-2023 11:20-0500 Body weight 92.72 kg Jackelyn Diggs Other [employer] [facility] Other 03-09-2023 11:20-0500 Diastolic blood pressure 60 mm[Hg] Jackelyn Diggs Other [facility] Other 03-09-2023 11:20-0500 Respiratory rate 18 /min Aziz Bakhous Other [employer] Other 03-09-2023 11:20-0500 SaO2% (BldA) [Mass fraction] 97 % Aziz Bakhous Other [employer] Other 03-09-2023 11:20-0500 Systolic blood pressure 100 mm[Hg] Aziz Bakhous Other [employer] Other 04-07-2022 15:20-0500 Body height 154.94 cm Aziz Bakhous Other [employer] Other 04-07-2022 15:20-0500 Body mass index (BMI) [Ratio] 39.67 kg/m2 Aziz Bakhous Other [employer] Other 04-07-2022 15:20-0500 Body temperature 97.7 [degF] Aziz Bakhous Other [employer] Other 04-07-2022 15:20-0500 Body weight 95.26 kg Aziz Bakhous Other [employer] Other 04-07-2022 15:20-0500 Diastolic blood pressure 90 mm[Hg] Aziz Bakhous Other [employer] Other 04-07-2022 15:20-0500 Respiratory rate 18 /min Aziz Bakhous Other [employer] Other 04-07-2022 15:20-0500 SaO2% (BldA) [Mass fraction] 97 % Aziz Bakhous Other [facility] Other 04-07-2022 15:20-0500 Systolic blood pressure 140 mm[Hg] Jackelyn Diggs Other [facility] Other Encounters Encounter Date Encounter Type Care Provider Facility Start: 12-28-2024 End: 12-28-2024 ambulatory Lisa Perez MD Work Phone: [facility] Work Phone: Start: 12-28-2024 End: 12-28-2024 Patient encounter procedure Lisa Perez MD -[facility] Work Phone: Start: 12-25-2024 End: 12-25-2024 ambulatory Lisa Perez MD Work Phone: [facility] Work Phone: Start: 12-25-2024 End: 12-25-2024 Patient encounter procedure Nolvia Jimenez OBEDIENCE TRAINER-C -[facility] Work Phone: Start: 12-21-2024 Patient encounter procedure Lisa Perez MD Work Phone: [facility] Start: 12-07-2024 Non-patient / Non-visit Zack joseph OBEDIENCE TRAINER-C -[facility] Work Phone: Start: 11-20-2024 End: 11-20-2024 ambulatory ZACK LUU [facility] Start: 11-15-2024 End: 11-15-2024 Clinisync Result Encounter Nolvia Jimenez NP Work Phone: [facility] External Department Unsolicited Start: 11-15-2024 End: 11-15-2024 Clinisync Result Encounter Nolvia Jimenez NP Work Phone: [facility] External Department Unsolicited Start: 11-13-2024 End: 11-13-2024 Bamboo flowsheet Nolvia Aichholz OBEDIENCE TRAINER Work Phone: [facility] Start: 11-13-2024 End: 11-13-2024 Bamboo flowsheet Nolvia Tony OBEDIENCE TRAINER Work Phone: [facility] Start: 11-13-2024 End: 11-13-2024 Telephone encounter Nolvia Tony OBEDIENCE TRAINER Work Phone: [facility] Start: 11-13-2024 End: 11-13-2024 ambulatory NOLVIA TONY Not Available Start: 11-13-2024 End: 11-13-2024 Office outpatient visit 25 minutes Nolvia Jimenez OBEDIENCE TRAINER Work Phone: [facility] Comment on above: Epigastric pain (Gemma humble Dx); Morbid (severe) obesity due to excess calories ([facility]-HCC); Type 2 diabetes mellitus without complication, without long-term current use of insulin (HCC); Essential (primary) hypertension ; Coronary artery disease involving samish coronary artery of samish heart without angina pectoris ; Positive colorectal cancer screening using Cologuard test; Gastroesophageal reflux disease without esophagitis Start: 11-08-2024 End: 11-08-2024 Clinisync Result Encounter Generic External Data Provider [facility] External Department Unsolicited Start: 11-08-2024 End: 11-08-2024 Clinisync Result Encounter Generic External Data Provider [facility] External Department Unsolicited Start: 11-01-2024 End: 11-01-2024 ambulatory Imad Asaad Facility:[facility] Start: 11-01-2024 Non-patient / Non-visit Imad Asaad [facility] Work Phone: Start: 10-23-2024 End: 11-03-2024 Clinisync Result Encounter Generic External Data Provider [facility] External Department Unsolicited Start: 10-23-2024 End: 11-03-2024 Clinisync Result Encounter Generic External Data Provider [facility] External Department Unsolicited Start: 10-18-2024 End: 10-18-2024 Refill Nolvia Jimenez OBEDIENCE TRAINER Work Phone: [facility] Comment on above: Bug bite, initial en counter (Primary Dx) Start: 10-12-2024 End: 10-12-2024 Refill Trace Kelly MD Work Phone: [facility] Comment on above: Other hyperlipidemia Start: 10-11-2024 End: 10-11-2024 Orders Only Nolvia Jimenez NP Work Phone: [facility] Comment on above: Other constipation ( Primary Dx); Positive colorectal cancer screening using Cologuard test Start: 10-10-2024 End: 10-10-2024 Office outpatient visit 25 minutes Nolvia Jimenez NP Work Phone: [facility] Comment on above: Essential (primary) hypertension (Primary Dx); Morbid (severe) obesity due to excess calories ([facility]-HCC); Other hyperlipidemia ; Type 2 diabetes mellitus [...] Start: 10-10-2024 End: 10-11-2024 Refill Nolvia Jimenez NP Work Phone: [facility] Comment on above: Other constipation ( Primary [...] Start: 09-22-2024 End: 09-22-2024 ambulatory ZACK JUS [facility] Start: 09-06-2024 End: 09-06-2024 Transitional care manage srvc 7 day discharge Nolvia Jimenez NP Work Phone: [facility] Comment on above: Pneumonia of right l ower lobe due to infectious organism (Primary Dx); Acute hypoxic respiratory failure (CMS/HCC); Coronary artery disease involving samish coronary artery of samish heart without angina pectoris (CMS/HCC); Essential (primary) hypertension ; Chronic kidney disease, stage 3b (HCC) (CMS/HCC); Morbid (severe) obesity due to excess calories ([facility]/HCC) Start: 09-06-2024 End: 09-06-2024 ambulatory NOLVIA JIMENEZ Not Available Start: 09-04-2024 Evaluation and management of inpatient [facility] Start: 09-03-2024 Evaluation and management of inpatient [facility] Start: 09-03-2024 End: 09-05-2024 Evaluation and management of inpatient GRISELDA HARVEY [facility] Start: 09-03-2024 End: 09-05-2024 Clinisync Result Encounter Generic External Data Provider [facility] External Department Unsolicited Start: 09-03-2024 End: 09-05-2024 Clinisync Result Encounter Generic External Data Provider [facility] External Department Unsolicited Start: 08-02-2024 End: 08-02-2024 Clinisync Result Encounter Nolvia Jimenez NP Work Phone: [facility] External Department Unsolicited Start: 08-02-2024 End: 08-02-2024 Clinisync Result Encounter Nolvia Jimenez OBEDIENCE TRAINER Work Phone: [facility] External Department Unsolicited Start: 08-01-2024 End: 08-01-2024 [facility] Start: 07-27-2024 End: 07-28-2024 External Result Encounter Nolvia Jimenez OBEDIENCE TRAINER Work Phone: [facility] External Department Unsolicited Start: 07-27-2024 End: 07-28-2024 External Result Encounter Nolvia Jimenez OBEDIENCE TRAINER Work Phone: [facility] External Department Unsolicited Start: 07-26-2024 End: 07-26-2024 Clinisync Result Encounter Nolvia Jimenez OBEDIENCE TRAINER Work Phone: [facility] External Department Unsolicited Start: 07-26-2024 End: 07-26-2024 Clinisync Result Encounter Nolvia Jimenez OBEDIENCE TRAINER Work Phone: [facility] External Department Unsolicited Start: 07-26-2024 End: 07-26-2024 Departed Referred Nolvia Jimenez Work Phone: [facility] Start: 07-26-2024 End: 07-26-2024 Orders Only Nolvia Jimenez OBEDIENCE TRAINER Work Phone: [facility] Comment on above: Leukocytosis, unspec ified type (Primary Dx) Leukocytosis, unspec ified type (Primary Dx); CRP elevated Start: 07-25-2024 End: 07-25-2024 Clinisync Result Encounter Generic External Data Provider [facility] External Department Unsolicited Start: 07-25-2024 End: 07-25-2024 Clinisync Result Encounter Generic External Data Provider [facility] External Department Unsolicited Start: 07-25-2024 End: 07-25-2024 ambulatory [facility] Work Phone: Start: 07-25-2024 End: 07-25-2024 Patient encounter procedure [facility] Work Phone: Start: 07-17-2024 End: 07-17-2024 Clinisync Result Encounter Generic External Data Provider [facility] External Department Unsolicited Start: 07-17-2024 End: 07-17-2024 Clinisync Result Encounter Generic External Data Provider [facility] External Department Unsolicited Start: 07-17-2024 Non-patient / Non-visit [facility] Work Phone: Start: 07-03-2024 End: 07-03-2024 ambulatory [facility] Start: 06-26-2024 End: 06-26-2024 Clinisync Result Encounter Generic External Data Provider [facility] External Department Unsolicited Start: 06-26-2024 End: 06-26-2024 Clinisync Result Encounter Generic External Data Provider [facility] External Department Unsolicited Start: 06-15-2024 End: 06-15-2024 ambulatory [facility] Start: 06-08-2024 End: 06-08-2024 Office outpatient visit 25 minutes Nolvia Jimenez OBEDIENCE TRAINER Work Phone: [facility] Comment on above: Essential (primary) hypertension (CMS/HCC) (Primary Dx); Morbid (severe) obesity due to excess calories (CMS/HCC); Body mass index (BMI) 35.0-35.9, adult; Chronic obstructive pulmonary disease, unspecified (CMS/HCC); Chronic kidney disease, stage 3b (HCC) (CMS/HCC); Coronary artery disease involving samish coronary artery of samish heart without angina pectoris (CMS/HCC); Hypomagnesemia; Mixed hyperlipidemia (CMS/HCC); Chronic low back pain, unspecified back pain laterality, unspecified whether sciatica present Start: 06-08-2024 End: 06-08-2024 ambulatory NOLVIA JIMENEZ Not Available Start: 06-08-2024 End: 06-08-2024 Bamboo flowsheet Nolvia Jimenez OBEDIENCE TRAINER Work Phone: [facility] Start: 06-08-2024 End: 06-08-2024 Bamboo flowsheet Nolvia Jmienez OBEDIENCE TRAINER Work Phone: [facility] Start: 05-23-2024 End: 05-23-2024 ambulatory [facility] Start: 05-02-2024 Non-patient / Non-visit [facility] Work Phone: Start: 04-26-2024 End: 04-26-2024 Transitional care manage srvc 7 day discharge Shanda Cheng OBEDIENCE TRAINER Work Phone: [facility] Comment on above: Essential hypertensi on (CMS/HCC) (Primary Dx) Start: 04-26-2024 End: 04-26-2024 ambulatory SHANDA CHENG Not Available Start: 04-26-2024 End: 04-26-2024 Bamboo flowsheet Shanda Cheng OBEDIENCE TRAINER Work Phone: [facility] Start: 04-26-2024 End: 04-26-2024 Bamboo flowsheet Shanda Cheng OBEDIENCE TRAINER Work Phone: [facility] Start: 04-18-2024 End: 04-18-2024 Bamboo flowsheet Shanda Cheng OBEDIENCE TRAINER Work Phone: [facility] Start: 04-18-2024 End: 04-18-2024 Bamboo flowsheet Shanda Cheng OBEDIENCE TRAINER Work Phone: [facility] Start: 04-18-2024 End: 04-18-2024 Office outpatient visit 10 minutes Shanda Cheng OBEDIENCE TRAINER Work Phone: [facility] Comment on above: Irregular heartbeat (Primary Dx) Start: 04-18-2024 End: 04-18-2024 ambulatory SHANDA CHENG Not Available Start: 04-03-2024 End: 04-03-2024 Refill Shanda Cheng OBEDIENCE TRAINER Work Phone: [facility] Comment on [...] 01-17-2024 End: 01-17-2024 Bamboo flowsheet Shanda Manzanok OBEDIENCE TRAINER Work Phone: [facility] Start: 01-17-2024 End: 01-17-2024 Bamboo flowsheet Shanda Fergusontrick OBEDIENCE TRAINER Work Phone: [facility] Start: 01-17-2024 End: 01-18-2024 Refill Trace Kelly MD Work Phone: [facility] Comment on above: 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) Start: 01-17-2024 End: 01-17-2024 Assay of hemosiderin, quant Shanda Cheng OBEDIENCE TRAINER Work Phone: [facility] Work Phone: Start: 01-17-2024 End: 01-17-2024 Patient encounter procedure Shanda Cheng OBEDIENCE TRAINER Work Phone: [facility] Comment on above: Routine general medi korin examination at health care facility (Primary Dx) Start: 01-04-2024 End: 01-04-2024 ambulatory [facility] Start: 12-20-2023 End: 12-20-2023 Discharged Recurring MD Jackelyn Diggs Work Phone: [facility] Work Phone: Start: 12-20-2023 End: 12-20-2023 ambulatory MD Jackelyn Diggs Work Phone: [facility] Work Phone: Start: 11-23-2023 End: 11-23-2023 Clinisync Result Encounter Generic External Data Provider [facility] External Department Unsolicited Start: 11-23-2023 End: 11-23-2023 Clinisync Result Encounter Generic External Data Provider [facility] External Department Unsolicited Start: 11-23-2023 Non-patient / Non-visit MD Rowan Diggs Work Phone: [facility] Work Phone: Start: 11-16-2023 End: 11-16-2023 ambulatory [facility] Work Phone: Start: 11-16-2023 End: 11-16-2023 Patient encounter procedure [facility] Nephrology Roger Work Phone: Start: 11-08-2023 Non-patient / Non-visit [facility] Work Phone: Start: 03-09-2023 End: 03-09-2023 ambulatory Azsasha Bakdavons Other [employer] [facility] Other Start: 03-09-2023 Office outpatient vi sit 25 minutes Azsasha Wagners [facility] Nephrology Roger Start: 08-03-2022 End: 08-04-2022 ambulatory AZIZ BAKHOUS Facility:[facility]1 Start: 07-15-2022 Encounter for other preprocedural examination DR ABBY AZEVEDO [facility] Start: 07-09-2022 End: 07-10-[address] ABBY AZEVEDO Facility:[facility] Start: 07-09-2022 End: 07-10-2022 Encounter for other preprocedural examination DR ABBY AZEVEDO Facility:[facility] Start: 07-09-2022 ambulatory LUIS SAMSA . Facility :[facility] Start: 05-20-2022 End: 05-21-2022 ambulatory LUIS SAMSA . Facility:[facility] Start: 04-27-2022 End: 07-08-2022 ambulatory LUIS SAMSA . Facility:[facility] Start: 04-15-2022 End: 04-16-2022 ambulatory AZIZ BAKHOUS Facility:[facility] Start: 04-07-2022 End: 04-07-2022 ambulatory Aziz Bakdavons Other [employer] Other Start: 04-07-2022 Office outpatient ne w 30 minutes Jackelyn Diggs [facility] Nephrology Roger Start: 01-23-2022 End: 01-24-2022 ambulatory LUIS SCHUMACHER . Facility:[facility] Start: 01-19-2022 End: 01-20-2022 ambulatory LUIS SCHUMACHER . Facility:[facility] Start: 01-05-2022 End: 01-06-[address] ABRAM CRAFT Facility: Procedures Date Procedure Procedure Detail Performing Clinician Start: 11-15-2024 ALL CBC WITH AUTO DIFF Nolvia Aichholz OBEDIENCE TRAINER Work Phone: Start: 11-15-2024 [facility] MICROALB CREAT R ATIO RANDOM Nolvia Aichholz OBEDIENCE TRAINER Work Phone: Start: 11-08-2024 ALL BASIC METABOLIC PANEL Generic External Data Provider Start: 10-23-2024 ITP Generic Ex ternal Data Provider Start: 10-10-2024 XR CHEST 2V Nolvia Aichh olz OBEDIENCE TRAINER Work Phone: Start: 10-10-2024 XR ABDOMEN 1V Nolvia Aich toby OBEDIENCE TRAINER Work Phone: Start: 10-10-2024 ALL BASIC METABOLIC PANEL Generic External Data Provider Start: 10-03-2024 ITP Generic Ex ternal Data Provider Start: 10-03-2024 ALL BASIC METABOLIC PANEL Generic External Data Provider Start: 10-02-2024 ITP Generic Ex ternal Data Provider Start: 09-03-2024 BLOOD CULTURE 2 Generic External Data Provider Start: 09-03-2024 BLOOD CULTURE 1 Generic External Data Provider Start: 08-02-2024 ALL CBC WITH AUTO DIFF Onlvia Aichholz OBEDIENCE TRAINER Work Phone: Start: 07-27-2024 Culture bacterial quanttative colony count urine Nolvia Aichholz OBEDIENCE TRAINER Work Phone: Start: 07-26-2024 ALL CBC WITH AUTO DIFF Nolvia Aichholz OBEDIENCE TRAINER Work Phone: Start: 07-25-2024 ALL CBC WITH AUTO DIFF Generic External Data Provider Start: 07-17-2024 [facility] URINE T PROTEIN CREAT RATIO Generic External Data Provider Start: 03-31-2025 ALL CBC WITH AUTO DIFF Generic External Data Provider Start: 02-02-2024 [facility] URINE T PROTEIN CREAT RATIO Generic External Data Provider Start: 01-24-2024 ALL HEMOGLOBIN Generic External Data Provider Start: 11-23-2023 [facility] TIBC Gen gregory External Data Provider Plan of Treatment Date Care Activity Detail Author Start: 02-14-2027 Screening for malign ant neoplasm of colon [facility] Start: 01-16-2025 Medicare Annual Well ness (AWV) Medicare Annual Wellness (AWV) [facility] Start: 01-16-2025 Pneumococcal Vaccine : 65+ Years (1 of 2 - PCV) Pneumococcal Vaccine: 65+ Years (1 of 2 - PCV) [facility] Comment on above: Postponed from 05/25 (Patient Refused) Postponed from 05/25 (Patient Refused) Start: 12-25-2024 End: 12-25-2024 Patient encounter procedure 12/25/2024 2:40 PM EDT Office Visit [facility] [address] [place] [address] Nolvia Jimenez, N[place]ON [address] [place] [address] [facility] Start: 12-04-2024 Hemoglobin A1c measurement Diabetes: Hemoglobin A1C [facility] Start: 11-27-2024 Influenza vaccination [facility] Healthcare Start: 11-13-2024 End: 11-13-2025 Amylase [Enzymatic activity/volume] in Serum or Plasma Amylase Lab Routine Epigastric pain Expected: 11/13/2024 (Approximate), Expires: 11/13/2025 [facility] Comment on above: Expected: 11/13/2024 (Approximate), Expires: 11/13/2025 Start: 11-13-2024 End: 11-13-2025 Basic metabolic 1998 panel - Serum or Plasma Basic metabolic panel Lab Routine Type 2 diabetes mellitus without complication, without long-term current use of insulin (HCC) Essential (primary) hypertension Epigastric pain Expected: 11/13/2024 (Approximate), Expires: 11/13/2025 [facility] Comment on above: Expected: 11/13/2024 (Approximate), Expires: 11/13/2025 Start: 11-13-2024 End: 11-13-2025 CBC W Auto Differential panel - Blood CBC and differential Lab Routine Epigastric pain Expected: 11/13/2024 (Approximate), Expires: 11/13/2025 [facility] Comment on above: Expected: 11/13/2024 (Approximate), Expires: 11/13/2025 Start: 11-13-2024 End: 11-13-2025 Hepatic function 2000 panel - Serum or Plasma Hepatic function panel Lab Routine Epigastric pain Expected: 11/13/2024 (Approximate), Expires: 11/13/2025 [facility] Comment on above: Expected: 11/13/2024 (Approximate), Expires: 11/13/2025 Start: 11-13-2024 End: 11-13-2025 Lipase [Enzymatic activity/volume] in Serum or Plasma Lipase Lab Routine Epigastric pain Expected: 11/13/2024 (Approximate), Expires: 11/13/2025 [facility] Work Phone: Comment on above: Expected: 11/13/2024 (Approximate), Expires: 11/13/2025 Start: 11-13-2024 End: 11-13-2025 Microalbumin/Creatinine panel in random Urine Microalbumin / creatinine, urine ratio Lab Routine Type 2 diabetes mellitus without complication, without long-term current use of insulin (HCC) Essential (primary) hypertension Expected: 11/13/2024 (Approximate), Expires: 11/13/2025 [facility] Comment on above: Expected: 11/13/2024 (Approximate), Expires: 11/13/2025 Start: 11-13-2024 End: 11-13-2025 Urinalysis complete panel - Urine Urinalysis with reflex microscopic (clean catch) Lab Routine Type 2 diabetes mellitus without complication, without long-term current use of insulin (HCC) Essential (primary) hypertension Epigastric pain Expected: 11/13/2024 (Approximate), Expires: 11/13/2025 [facility] Comment on above: Expected: 11/13/2024 (Approximate), Expires: 11/13/2025 Start: 11-13-2024 End: 11-13-2024 Patient encounter procedure 11/13/2024 1:40 PM EDT Office Visit [facility] [address] [place] [address] Nolvia Jimenez, NIXON [address] [place] [address] [facility] Start: 11-01-2024 [facility] Start: 10-18-2024 End: 10-18-2024 Patient encounter procedure 10/18/2024 2:20 PM EDT Office Visit [facility] [address] [place] [address] Nolvia Jimenez, NIXON [address] [place] [phone] [facility] Start: 10-10-2024 End: 10-10-2024 Patient encounter procedure 10/10/2024 3:40 PM EDT Office Visit [facility] [address] [place] [address] Nolvia Jimenez, NIXON [address] [place] [id number] [facility] Start: 09-05-2024 End: 09-05-2024 Patient encounter procedure [facility] Start: 08-03-2024 Influenza vaccination Influenza Vacc ine (#1) [facility] Comment on above: Postponed from 11/27 (Patient Refused) Start: 08-02-2024 End: 07-26-2025 C reactive protein [Mass/volume] in Serum or Plasma C-reactive protein Lab Routine CRP elevated Expected: 08/02/2024 (Approximate), Expires: 07/26/2025 [facility] Comment on above: Expected: 08/02/2024 (Approximate), Expires: 07/26/2025 Start: 08-02-2024 End: 07-26-2025 CBC W Auto Differential panel - Blood CBC and differential Lab Routine Leukocytosis, unspecified type Expected: 08/02/2024 (Approximate), Expires: 07/26/2025 [facility] Work Phone: Comment on above: Expected: 08/02/2024 (Approximate), Expires: 07/26/2025 Start: 07-27-2024 Bacteria identified in Urine by Culture [facility] Start: 07-27-2024 Urine culture [facility] Start: 07-26-2024 End: 07-26-2025 Bacteria identified in Urine by Culture Urine culture (clean catch) Microbiology Routine Leukocytosis, unspecified type Expected: 07/26/2024 (Approximate), Expires: 07/26/2025 [facility] Comment on above: Expected: 07/26/2024 (Approximate), Expires: 07/26/2025 Start: 07-26-2024 End: 07-26-2025 C reactive protein [Mass/volume] in Serum or Plasma C-reactive protein Lab Routine Leukocytosis, unspecified type Expected: 07/26/2024 (Approximate), Expires: 07/26/2025 [facility] Comment on above: Expected: 07/26/2024 (Approximate), Expires: 07/26/2025 Start: 07-26-2024 End: 07-26-2025 CBC W Auto Differential panel - Blood CBC and differential Lab Routine Leukocytosis, unspecified type Expected: 07/26/2024 (Approximate), Expires: 07/26/2025 [facility] Work Phone: Comment on above: Expected: 07/26/2024 (Approximate), Expires: 07/26/2025 Start: 07-26-2024 End: 07-26-2025 Comprehensive metabolic 2000 panel - Serum or Plasma Comprehensive metabolic panel Lab Routine Leukocytosis, unspecified type Expected: 07/26/2024 (Approximate), Expires: 07/26/2025 [facility] Comment on above: Expected: 07/26/2024 (Approximate), Expires: 07/26/2025 Start: 07-26-2024 End: 07-26-2025 Erythrocyte sedimentation rate Sedimentation rate, automated Lab Routine Leukocytosis, unspecified type Expected: 07/26/2024 (Approximate), Expires: 07/26/2025 [facility] Comment on above: Expected: 07/26/2024 (Approximate), Expires: 07/26/2025 Start: 07-26-2024 End: 07-26-2025 Peripheral blood smear Peripheral blood smear Pathology and Cytology Routine Leukocytosis, unspecified type Expected: 07/26/2024 (Approximate), Expires: 07/26/2025 [facility] Comment on above: Expected: 07/26/2024 (Approximate), Expires: 07/26/2025 Start: 07-26-2024 End: 07-26-2025 Urinalysis complete panel - Urine Urinalysis with reflex microscopic (clean catch) Lab Routine Leukocytosis, unspecified type Expected: 07/26/2024 (Approximate), Expires: 07/26/2025 [facility] Comment on above: Expected: 07/26/2024 (Approximate), Expires: 07/26/2025 Start: 06-08-2024 End: 06-08-2024 Patient encounter procedure 06/08/2024 2:40 PM EDT Office Visit [facility] [address] [place] [address] Nolvia Jimenez NP [address] [place] [address] Coronary artery disease involving samish coronary artery of samish heart without angina pectoris (CMS/HCC) (Primary Dx); Morbid (severe) obesity due to excess calories (CMS/HCC); Essential (primary) hypertension (CMS/HCC); Body mass index (BMI) 35.0-35.9, adult; Chronic obstructive pulmonary disease, unspecified (CMS/HCC); Chronic kidney disease, stage 3b (HCC) (CMS/HCC); Hypomagnesemia; Mixed hyperlipidemia (CMS/HCC) [facility] Comment on above: Coronary artery dise ase involving samish coronary artery of samish heart without angina pectoris (CMS/HCC) (Primary Dx); Morbid (severe) obesity due to excess calories (CMS/HCC); Essential (primary) hypertension (CMS/HCC); Body mass index (BMI) 35.0-35.9, adult; Chronic obstructive pulmonary disease, unspecified (CMS/HCC); Chronic kidney disease, stage 3b (HCC) (CMS/HCC); Hypomagnesemia; Mixed hyperlipidemia (CMS/HCC) Start: 06-08-2024 End: 06-08-2024 Patient encounter procedure 06/08/2024 1:30 PM EDT Office Visit [facility] [address] [place] [address] Shanda Cheng NP [address] [place] [address] [facility] Start: 04-26-2024 End: 04-26-2024 Patient encounter procedure 04/26/2024 3:30 PM EST Office Visit [facility] [address] [place] [address] Shanda Cheng NP [address] [place] [address] Arrived [facility] Comment on above: Arrived Start: 04-18-2024 End: 04-18-2024 [facility] Start: 04-12-2024 Screening for malign ant neoplasm of colon Colorectal Cancer Screening [facility] Comment on above: Postponed from 05/25 (Patient Refused) Start: 03-13-2024 Influenza vaccination Influenza Vacc ine (#1) [facility] Comment on above: Postponed from 11/27 (Patient Refused) Start: 01-17-2024 End: 01-17-2024 Patient encounter procedure 01/17/2024 1:00 PM EDT Office Visit [facility] [address] [place] [phone] Shanda Cheng, NIXON [address] [place] [address] [facility] Start: 01-15-2024 Medicare Annual Well ness (AWV) Medicare Annual Wellness (AWV) [facility] Start: 11-28-2023 Influenza vaccination Influenza Vacc ine (#1) [facility] Start: 01-10-2019 Urine screening for protein Diabetes: Urine Protein Screening [facility] Start: 1963 Glaucoma screening Diabetes: R etinopathy Screening [facility] Start: 1959 Pneumococcal Vaccine : 65+ Years (1 of 2 - PCV) Pneumococcal Vaccine: 65+ Years (1 of 2 - PCV) [facility] Start: 1953 Screening for malign ant neoplasm of colon [facility] Start: 1953 Screening for malign ant neoplasm of lung Lung Cancer Screening Shared Decision Making [facility] BLOOD CULTURE 1 BLOOD CULTURE 1 Lab Routine 09/03/2024 4:58 AM EDT [facility] BLOOD CULTURE 2 BLOOD CULTURE 2 Lab Routine 09/03/2024 5:52 AM EDT [facility] Patient Education Colon Strictur e (DC) [facility] Diverticulosis Discharge Instructions [facility] Hemorrhoids Discharge Instructions Know your Meds [facility] Colon Polypectomy Discharge Instructions [facility] Work Phone: Renal function 1999 panel - Serum or Plasma [facility] Renal function 1999 panel - Serum or Plasma [facility] US Abdomen limited [facility] Payers Date Payer Category Payer Medicare [employer] ADVANTAGE [employer] MEDICARE ADVANTAGE [id number] 2020-Present [address] [place] [id number] 2020 Medicare (Managed Care) [facility] [id number] 1959 Medicare [id number] 1959 Self-pay 1953 Unknown [id number] 2.16.840.1.655150.3.579. 2.593 1953 Unknown [id number] 2.16.840.1.418278.3.579. 2.593 1953 Unknown [id number] 2.16.840.1.048163.3.579. 2.593 1953 Unknown [id number] 2.16.840.1.209613.3.579. 2.593 1953 Unknown [id number] 2.16.840.1.331112.3.579. 2.593 1953 Unknown [id number] 2.16.840.1.190158.3.579. 2.593 1953 Unknown [id number] 2.16.840.1.750694.3.579. 2.593 1953 Unknown [id number] 2.16.840.1.234808.3.579. 2.593 1953 Unknown [id number] 2.16.840.1.876867.3.579. 2.1259 1953 Unknown [id number] 2.16.840.1.185124.3.579. 2.1259 1953 Unknown [id number] 2.16.840.1.403833.3.579. 2.1259 1953 Unknown [id number] 2.16.840.1.749175.3.579. 2.1259 1953 Unknown [id number] 2.16.840.1.317409.3.579. 2.1259 1953 Unknown [id number] 2.16.840.1.631903.3.579. 2.1259 1953 Unknown [id number] 2.16.840.1.154863.3.579. 2.1259 Unknown [id number] 2.16.840.1.355550.3.579. 2.593 Unknown [id number] 2.16.840.1.776283.3.579. 2.531 Unknown [id number] 2.16.840.1.649585.3.579. 2.531 Unknown [id number] 2.16.840.1.984592.3.579. 2.531 Social History Date Type Detail Facility Unknown if ever smoked [facility] Other Start: 04-12-2023 End: 06-08-2024 Sex Assigned At [employer] Other Start: 11-16-2023 End: 11-01-2024 Tobacco smoking status [facility] Ex-smoker (finding) [facility] Start: 1955 Sex Assigned At Female [facility] Start: 03-29-1985 End: 03-29-2015 History of tobacco use Current smoker [facility] Start: 03-29-1985 End: 03-29-2015 History of tobacco use Cigarette Smoker [facility] Start: 04-12-2023 End: 06-08-2024 Cigarettes smoked current (pack per day) - Reported 1 [facility] Start: 04-12-2023 End: 04-18-2024 Tobacco use and exposure Smokeless tobacco non-user [facility] Start: 04-12-2023 End: 11-13-2024 Alcoholic beverage intake Lifetime non-drinker (finding) [facility] Do you feel stress - tense, [...] to any clubs or organizations such as yazdanism groups, unions, fraternal [...] Start: 07-25-2024 End: 07-28-2024 Sex Female (finding) [facility] Goals Date Patient Goal Desired Activity /State [...] placement, COPD, History of acute inferior wall MD, HT, HLP, CKD, obesity 11/20/2024 office visit: [...] Daily atorvastatin (LIPITOR) 80 mg, oral, Daily xaoulnohxy-njjnhnwv-fpzqgpzuxm (Breztri Aerosphere) 160-9-4.8 mcg/actuation HFA aerosol inhaler [...] Rate 09/03/2024 90 Atrial Rate 09/03/2024 90 SD Interval 09/03/2024 140 QRS DURATION 09/03/2024 76 QT Interval 09/03/2024 368 QTC CALCULATION(BAZETT) 09/03/2024 450 P [place]iss[place] 09/03/2024 70 R-Blissfield 09/03/2024 42 T Wave [place] 09/03/2024 51 Auto WBC 09/03/2024 19.92 (H) RBC 09/03/2024 3.95 Hemoglobin 09/03/2024 12.3 Hematocrit 09/03/2024 38.3 MCV 09/03/2024 97.0 MCH 09/03/2024 31.1 MCHC 09/03/2024 32.1 RDW 09/03/2024 13.8 Neutrophils % 09/03/2024 93.3 (more content not included)... [facility] 11-13-2024 Telephone encounter Note Please call up to GI in [facility], see if we can schedule an appt for epigastric pain, [place] May need EGD They saw her recently for colonoscopy [place] [facility] 11-13-2024 Miscellaneous Notes Please call up to GI in [facility], see if we can schedule an appt for epigastric pain, [place] May need EGD They saw her recently for colonoscopy [place] documented in this encounter [facility] 11-13-2024 History of Presen t illness [...] Addressed This Visit Coronary artery disease involving samish coronary artery of samish heart without angina pectoris (Chronic) Takes asa, statin, imdur, b shyam, ARB, nitroglycerin prn Morbid (severe) obesity due to excess calories ([facility]) Discussed with patient their BMI (actual, verses [...] months Associated Problem(s): Coronary artery disease involving samish coronary artery of samish heart without angina pectoris Takes asa, statin, [...] Morbid (severe) obesity due to excess calories ([facility]) Discussed with patient their BMI (actual, verses recommended). We have also discussed lifestyle modifications: attempts to perform physical activity as chronic conditions allow, also to monitor dietary intake: increasing protein/fruits/veggies and lowering carb intake (unless contraindicated). Limit sodas, juices, and sugary drinks. documented in this encounter [facility] 11-13-2024 Instructions Nolvia Jimenez NP - 11/13/2024 1:40 PM EDT Stop omeprazole, trial pantoprazole 40mg daily Check labs Will call up to GI doctor to see if can get appt documented in this encounter [facility] 11-13-2024 Evaluation note Diagnosis Stage 3a chronic kidney disease ([facility])- Primary Other hyperlipidemia Coronary artery disease involving samish coronary artery of samish heart without angina pectoris Irregular heartbeat- Primary Unspecified cardiac dysrhythmia Essential (primary) hypertension- Primary Unspecified essential hypertension Morbid (severe) obesity due to excess calories ([facility]) Body mass index (BMI) 35.0-35.9, adult Chronic obstructive pulmonary disease, unspecified (HCC) Chronic kidney disease, stage 3b ([facility]) Coronary artery disease involving samish coronary artery of samish heart without angina pectoris Hypomagnesemia Disorders of magnesium metabolism Mixed hyperlipidemia Mixed hyperlipidemia Chronic low back pain, unspecified back pain laterality, unspecified whether sciatica present Pneumonia of right lower lobe due to infectious organism- Primary Acute hypoxic respiratory failure (HCC) Coronary artery disease involving samish coronary artery of samish heart without angina pectoris Essential (primary) hypertension Unspecified essential hypertension Chronic kidney disease, stage 3b ([facility]) Morbid (severe) obesity due to excess calories ([facility]) Essential (primary) hypertension- Primary Unspecified essential hypertension Morbid (severe) obesity due to excess calories ([facility]) Other hyperlipidemia Type 2 diabetes mellitus without complications (HCC) Emphysema, unspecified (HCC) Chronic obstructive pulmonary disease with acute exacerbation (HCC) Other constipation Heart failure, unspecified HF chronicity, unspecified heart failure type (HCC) Epigastric pain- Primary Abdominal pain, epigastric Morbid (severe) obesity due to excess calories ([facility]-HCC) Type 2 diabetes mellitus without complication, without long-term current use of insulin (HCC) Essential (primary) hypertension Unspecified essential hypertension Coronary artery disease involving samish coronary artery of samish heart without angina pectoris Positive colorectal cancer screening using Cologuard test Gastroesophageal reflux disease without esophagitis Esophageal reflux documented in this encounter [id number] note* Author Lisa Perez [facility] Authored December 28, 2024 11 :00am 69-year-old [...] arrange for ultrasound of the upper abdomen. [facility] Work Phone: [phone] 744-286307-23-2025 Telephone encounter Note* Telephone Encounter - Nolvia [...] steroid cream if not better contact office [id number] Miscellaneous Notes* Telephone Encounter - Nolvia Jimenez [...] not better contact office documented in this encounter[facility] [id number] Evaluation note* Diagnosis Stage 3a chronic kidney disease (CMS-HCC)- Primary Other hyperlipidemia Coronary artery disease involving samish coronary artery of samish heart without angina pectoris Irregular heartbeat- Primary Unspecified cardiac dysrhythmia Essential (primary) hypertension- Primary Unspecified essential hypertension Morbid (severe) obesity due to excess calories (CMS-HCC) Body mass index (BMI) 35.0-35.9, adult Chronic obstructive pulmonary disease, unspecified (HCC) Chronic kidney disease, stage 3b (CMS-HCC) Coronary artery disease involving samish coronary artery of samish heart without angina pectoris Hypomagnesemia Disorders of magnesium metabolism Mixed hyperlipidemia Mixed hyperlipidemia Chronic low back pain, unspecified back pain laterality, unspecified whether sciatica present Pneumonia of right lower lobe due to infectious organism- Primary Acute hypoxic respiratory failure (HCC) Coronary artery disease involving samish coronary artery of samish heart without angina pectoris Essential (primary) hypertension [...] (HCC) Other hyperlipidemia documented in this encounter [id number] Evaluation note* Diagnosis Stage 3a chronic kidney disease (CMS-HCC)- Primary Other hyperlipidemia Coronary artery disease involving samish coronary artery of samish heart without angina pectoris Irregular heartbeat- Primary Unspecified cardiac dysrhythmia Essential (primary) hypertension- Primary Unspecified essential hypertension Morbid (severe) obesity due to excess calories (CMS-HCC) Body mass index (BMI) 35.0-35.9, adult Chronic obstructive pulmonary disease, unspecified (HCC) Chronic kidney disease, stage 3b (CMS-HCC) Coronary artery disease involving samish coronary artery of samish heart without angina pectoris Hypomagnesemia Disorders of magnesium metabolism Mixed hyperlipidemia Mixed hyperlipidemia Chronic low back pain, unspecified back pain laterality, unspecified whether sciatica present Pneumonia of right lower lobe due to infectious organism- Primary Acute hypoxic respiratory failure (HCC) Coronary artery disease involving samish coronary artery of samish heart without angina pectoris Essential (primary) hypertension [...] Other constipation- Primary documented [facility] this encounter [facility]Uzzsrubroh03-24-1660 Evaluation note* Diagnosis Stage 3a chronic kidney disease (CMS-HCC)- Primary Other hyperlipidemia Coronary artery disease involving samish coronary artery of samish heart without angina pectoris Irregular heartbeat- Primary Unspecified cardiac dysrhythmia Essential (primary) hypertension- Primary Unspecified essential hypertension Morbid (severe) obesity due to excess calories (CMS-HCC) Body mass index (BMI) 35.0-35.9, adult Chronic obstructive pulmonary disease, unspecified (HCC) Chronic kidney disease, stage 3b (CMS-HCC) Coronary artery disease involving samish coronary artery of samish heart without angina pectoris Hypomagnesemia Disorders of magnesium metabolism Mixed hyperlipidemia Mixed hyperlipidemia Chronic low back pain, unspecified back pain laterality, unspecified whether sciatica present Pneumonia of right lower lobe due to infectious organism- Primary Acute hypoxic respiratory failure (HCC) Coronary artery disease involving samish coronary artery of samish heart without angina pectoris Essential (primary) hypertension [...] using Cologuard test documented in this encounter [facility] [id number] History of Present illness Narrative* Nolvia Jimenez NP - 10/10/2024 5:43 PM EDTAssociated Problem(s): Heart failure (HCC) I did contact [facility] cardiology office updated on vital signs, weight and exam They will message tunnel man to see about diuretic Check cxr * [...] Morbid (severe) obesity due to excess calories ([facility]-HCC) - Primary Discussed with patient their BMI [...] xray Heart failure (HCC) I did contact [facility] cardiology office updated on vital signs, weight and exam They will message tunnel man to see about diuretic Check cxr Other Visit Diagnoses Emphysema, unspecified (HCC) * Nolvia Jimenez NP - 10/10/2024 6:53 AM EDTAssociated Problem(s): Type 2 diabetes mellitus without complications (HCC) HTN, HLD * Nolvia Jimenez NP - 10/10/2024 6:49 AM EDTAssociated Problem(s): Morbid (severe) obesity due to excess calories ([facility]-HCC) Discussed with patient their BMI (actual, verses recommended). We have also discussed lifestyle modifications: attempts to perform physical activity as chronic conditions allow, also to monitor dietary intake: increasing protein/fruits/veggies and lowering carb intake (unless contraindicated). Limit sodas, juices, and sugary drinks. documented in this [facility]07-15-2025 Instructions* Patient Instructions* Nolvia Jimenez NP - 10/10/2024 3:40 PM EDT Check xray: abd, and chest xray I will call [facility] Cardiology about shortness of breath, possibly do something different with water pills If worsening go to Er documented in this [facility]07-15-2025 Evaluation note* Diagnosis Stage 3a chronic kidney disease ([facility]-HCC)- Primary Other hyperlipidemia Coronary artery disease involving samish coronary artery of samish heart without angina pectoris Irregular heartbeat- Primary Unspecified cardiac dysrhythmia Essential (primary) hypertension- Primary Unspecified essential hypertension Morbid (severe) obesity due to excess calories ([facility]-HCC) Body mass index (BMI) 35.0-35.9, adult Chronic obstructive pulmonary disease, unspecified (HCC) Chronic kidney disease, stage 3b (CMS-HCC) Coronary artery disease involving samish coronary artery of samish heart without angina pectoris Hypomagnesemia Disorders of magnesium metabolism Mixed hyperlipidemia Mixed hyperlipidemia Chronic low back pain, unspecified back pain laterality, unspecified whether sciatica present Pneumonia of right lower lobe due to infectious organism- Primary Acute hypoxic respiratory failure (HCC) Coronary artery disease involving samish coronary artery of samish heart without angina pectoris Essential (primary) hypertension [...] unspecified HF chronicity, unspecified heart failure type ([facility]) documented in this encounter [facility] [id number] NoteSUBJECTIVE Reason for Visit: Chiara Eduardo is a 69 y.o. year old female patient being seen for follow-up hospital visit, NSTEMI. HPI: Chiara Eduardo is a 69 y.o. year old female with significant medical history coronary artery disease, prior stent placement, COPD, History of acute inferior wall MD, HT, HLP, CKD, obesity Recent hospital course [...] felt to be related to type II MD. Of note patient had cardiac cath in [...] Daily atorvastatin (LIPITOR) 80 mg, oral, Daily nrahzwuzgg-slkgyzix-tlsrmiygjm (Breztri Aerosphere) 160-9-4.8 mcg/actuation HFA aerosol inhaler [...] Rate 09/03/2024 90 Atrial Rate 09/03/2024 90 SD Interval 09/03/2024 (more content not included)...[facility]06-27-2025 NotePatient is here today for a follow up. Patient states she is doing ok. Review of Systems Constitutional: Negative.[facility]06-11-2025 History of Present illness Narrative* Nolvia Jimenez, NIXON - 09/06/2024 6:44 PM EDT Associated Problem(s): Morbid (severe) obesity due to excess calories ([facility]) Discussed with patient their BMI (actual, verses recommended). We have also discussed lifestyle modifications: attempts to perform physical activity as chronic conditions allow, also to monitor dietary intake: increasing protein/fruits/veggies and lowering carb intake (unless contraindicated). Limit sodas, juices, and sugary drinks. 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 on 09/12 Cake Icer apt 09/22 3:[address] appt 09/19 [...] HPI: Currently on 3L 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 a glass rolling machine operator appt on 09/12 Cake Icer apt 09/22 3:[address] appt 09/19 [...] Oral, Daily azithromycin (ZITHROMAX) 500 mg, Daily Zxojbxa-Bafzyrxadzq-Pmwfmehtlo (Breztri Aerosphere) 160-9-4.8 MCG/ACT aerosol 160 mcg, [...] Addressed This Visit Coronary artery disease involving samish coronary artery of samish heart without angina pectoris (CMS/HCC) (Chronic) Reviewed cardiology notes from [facility] Did not feel elevated trop was related to MD Morbid (severe) obesity due to excess calories [...] with pulmonology next week documented in this [facility]06-11-2025 Instructions* Patient Instructions* Nolvia Jimenez NP - 09/06/2024 3:00 PM EDT No med dose changes Purse lipped breathing as well documented in this [facility]06-11-2025 Evaluation note* Diagnosis Stage 3a chronic kidney disease (HCC) (CMS/HCC)- Primary Other hyperlipidemia Coronary artery disease involving samish coronary artery of samish heart without angina pectoris (CMS/HCC) Irregular heartbeat- Primary Unspecified cardiac dysrhythmia Essential (primary) hypertension- Primary Unspecified essential hypertension Morbid (severe) obesity due to excess calories (CMS/HCC) Body mass index (BMI) 35.0-35.9, adult Chronic obstructive pulmonary disease, unspecified Chronic kidney disease, stage 3b (HCC) (CMS/HCC) Coronary artery disease involving samish coronary artery of samish heart without angina pectoris ([facility]/HCC) Hypomagnesemia Disorders of magnesium metabolism Mixed hyperlipidemia Mixed hyperlipidemia Chronic low back pain, unspecified back pain laterality, unspecified whether sciatica present Pneumonia of right lower lobe due to infectious organism- Primary Acute hypoxic respiratory failure (CMS/HCC) Coronary artery disease involving samish coronary artery of samish heart without angina pectoris (CMS/HCC) Essential (primary) hypertension Unspecified essential hypertension Chronic kidney disease, stage 3b (HCC) (CMS/HCC) Morbid (severe) obesity due to excess calories ([facility]) documented in this encounter [id number] NoteHospital Medicine Discharge Summary Final Discharge Diagnosis: 1. Acute hypoxemic respiratory failure secondary to COPD exacerbation as well as right lower lobe pneumonia 2. Drop in EF to 44% compared to stress test in 2022 reported normal ejection fraction 3. Elevated troponins likely type II MD Admission Diagnosis: NSTEMI (non-ST elevated myocardial infarction) ([facility]) [I21.4] Hospital course: Chiara Eduardo is a 69 y.o. female with a history of coronary artery disease, prior stent placement, COPD, History of acute inferior wall MD, HT, HLP, CKD, obesity presented with shortness [...] felt to be related to type II MD. Of note patient had cardiac cath in [...] 160-9-4.8 mcg/actuation HFA aerosol inhaler Generic drug: cqjrxcodks-saxeqick-soyarqnple cholecalciferol 50 MCG (2000 UT) tablet Commonly [...] Medications These medications were sent to [facility] - [place], [place] - [address], [facility] [address] azithromycin 500 mg tablet cefpodoxime 200 mg [...] 133* 134* POTASSIUM mmol/ (more content not included)...[facility]06-10-2025 Note09/05/24 1018 Home Oxygen Therapy Evaluation Pulse Oximetry on room air at Rest 93 Pulse Ox on room air while walking 85 Pulse Ox on O2 with nasal cannula while walking 92 Patient Qualification for home oxygen Qualifies No oxygen required at rest 3 lpm required to keep spo2 > 90%[facility]06-10-2025 NotePhysical Therapy Physical Therapy Evaluation Patient [...] Chief Complaint Patient is direct admitted from [facility] with shortness of breath. History of Present Illness Chiara Eduardo is an 69 y.o. female who came from home with shortness of breath. Patient has history of COPD, quit smoking 2017, on Lasix 20 mg every other day, started having worsening shortness of breath, and acute on chronic abdominal pain last night, she presented to [facility], found to have right lower lobe pneumonia, with increasing troponin to 78.9, lactic of 3.2, patient was started on heparin drip, antibiotics, and was sent to [facility] for further workup. At time of arrival around 5 PM, patient was lying in bed, on nonrebreather, satting 100%, complaining of mild lower abdominal pain, no chest pain, cough, palpitation, or any other related symptoms. PT Diagnosis: weakness, impaiired functional mobility. Patient Active Problem List Diagnosis Bladder prolapse, female, acquired Chronic GERD COPD (chronic obstructive pulmonary disease) (CMS/HCC) Coronary artery disease involving samish coronary artery of samish heart without angina pectoris Diuretic-induced hypokalemia Essential hypertension Former smoker Health care maintenance History of acute inferior wall MD Lower back pain Mixed hyperlipidemia Severe obesity (BMI 35.0-39.9) with comorbidity (CMS/HCC) Shortness of breath Chest pain Arrhythmia Anemia Hypomagnesemia Hyponatremia Non-sustained ventricular tachycardia (CMS/HCC) History of tobacco use [facility] [place] (current) 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 PVC (premature ventricular contraction) [...] Coronary artery disease Coronary artery disease involving samish coronary artery of samish heart without angina pectoris 12/28/2016 Essential hypertension [...] Level of Function Prior Function Level of [place]: Independent with ADLs and functional transfers Prior [...] Sitting Balance Static Sittin (more content not included)...[facility] 09-04-2024 Note09/04/24 1706 Admission Assessment Questions [...] service called [employer] this is through insurance Section for renal care.) Assistive Device Cane;Other (Comment) [...] link and activate MyChart? MyChart already active [facility]06-09-2025 NoteSpiritual Care Note Patient name: Chiara Eduardo Age: 69 y.o. Room: [address] [place] [address] 09/04/24 1710 Clinical Encounter Type Visited With Patient Type of Visit Advance Directives Last Visit Date 09/04/24 Referral From Nurse Patient Spiritual Care Encounters Spiritual Care Assessment Hopeful;Coping with diagnoses (Pt seemed to be coping with situation. Pt completed ADV DIR's naming as agent and three daughters as alternates.) Pastoral Intervention Advance directives;Emotional support;Spiritual support (Marketing And Development Coordinator assisted pt with completing ADV DIR. Copies made, original & copies returned to pt, copy placed in pt chart.) Response AppreciativeUnTrinity [facility]06-09-2025 Note Occupational Therapy Occupational Therapy Evaluation Patient [...] pulmonary disease) (CMS/HCC) Coronary artery disease involving samish coronary artery of samish heart without angina pectoris Diuretic-induced hypokalemia Essential hypertension Former smoker Health care maintenance History of acute inferior wall MD Lower back pain Mixed hyperlipidemia Severe obesity (BMI 35.0-39.9) with comorbidity (CMS/HCC) Shortness of breath Chest pain Arrhythmia Anemia Hypomagnesemia Hyponatremia Non-sustained ventricular tachycardia (CMS/HCC) History of tobacco use 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 PVC (premature ventricular contraction) Multiple pulmonary nodules Irregular heartbeat Stage 3a chronic kidney disease ([facility]) Body mass index (BMI) 35.0-35.9, adult Angina pectoris, unstable ([facility]) CRP elevated Elevated WBC count NSTEMI (non-ST elevated myocardial infarction) ([facility]) Pneumonia Acute hypoxic respiratory failure ([facility]) Elevated troponin Past Medical History: Diagnosis Date Abnormal ECG Chronic GERD 12/28/2016 Chronic kidney disease COPD (chronic obstructive pulmonary disease) ([facility]) Coronary artery disease Coronary artery disease involving samish coronary artery of samish heart without angina pectoris 12/28/2016 Essential hypertension [...] With: Spouse Home Adaptive Equipment: Cane, Rollator ([place], [facility]) Home Layout: Multi-level, Bed/bath upstairs (tri level , bed and bath up 4 steps with rail) Home Access: Stairs to enter with rails (4) Bathroom Shower/Tub: Tub/shower unit Prior Level of Function Prior Function Level of Redfield: Independent with ADLs and functional transfers, Independent [...] Eating meals?: None (Independent) Total Score OT [facility]: 21 Assessment/Plan OT Assessment OT Impairments: Decreased [...] OT Plan: Skilled OT (more content not included)...[facility]06-09-2025 NoteLikely type II MD, supply/demand mismatch EKG shows sinus rhythm with PVCs Echo pendingUnTrinity Health System [facility] Campus06-09-2025 NoteSecondary to right lower lobe pneumonia likely component of CHF Echocardiogram pending Continue current antibiotics with Rocephin and Zithromax Lasix switched to 40 mg daily instead of every other day 20 mg Continue DuoNeb as needed Sputum culture has few gram-positive cocci in pairs Influenza A/B negative as well as COVID-19. Mycoplasma PCRUnTrinity Health System East Campus06-09-2025 NotePatient at home on oral prednisone 10 mg daily Continue Dulera and Incruse Ellipta DuoNeb as neededUnTrinity Health System East Campus06-09-2025 NoteHospital Medicine Daily Progress Note - 09/04/2024 12:26 PM; Room: [address] [place] [address] Admission: 09/03/2024 4:20 PM; Length of stay: 1 days THE HOSPITALIST TEAM PREFERS TO USE indico FOR NON-URGENT COMMUNICATION 7AM-7PM. IF I DO NOT RESPOND WITHIN 20 MINUTES OR URGENT MATTERS, PLEASE CALL THROUGH THE BIN FILLER. FROM 7PM-7AM, PLEASE PAGE [phone](COVR). Code Status: Full Code Barriers to Discharge: [...] Mycoplasma PCR Elevated troponin Likely type II MD, supply/demand mismatch EKG shows sinus rhythm with [...] 7 days Lab Units 09/04/24 04109/03/24 1709 WBC AUTO 10*3/uL 19.91* 19.92* HEMOGLOBIN [...] 7 days Lab Units 09/04/24 04109/03/24 1709 HCO3 ART mEq/L 23.7 -- O2 [...] (pending PT/OT evals) Signed Rhea Manning MD [facility] 09/04/2024 12:26 PMUnTrinity Health System East Campus06-09-2025 Note- Patient was requiring nonrebreather upon arrival to [facility] - has been switched to high flow nasal cannula - Patient was on Lasix 20 mg every other day - switching to 40 mg daily, monitor I's and O's and daily weight - Continue with DuoNeb as needed No associated orders from this encounter found during lookback period of 72 hours.[facility]06-09-2025 Note- Patient was requiring nonrebreather upon arrival to [facility] - has been switched to high flow nasal cannula -Chest x-ray at [facility] showed right lower lobe pneumonia - 09/04/2024 x-ray done at [facility] was consistent with the previously [...] encounter found during lookback period of 72 hours.[facility]06-09-2025 Note- Currently on Breztri at home, not on home oxygen as of now - Patient is a former smoker, there is no need for smoking cessation counseling at this time No associated orders from this encounter found during lookback period of 72 hours.[facility]06-09-2025 NoteCoronary artery disease is unchanged. Continue [...] encounter found during lookback period of 72 hours.[facility]06-09-2025 NoteAdult Nutrition Assessment: Name: Chiara Eduardo Date: 1955 Date of Visit: 09/04/24 Admission Dx: NSTEMI (non-ST elevated myocardial infarction) ([facility]) [I21.4] Reason for assessment: high risk PO and COPD Information obtained from: patient and medical record Past Medical History: Diagnosis Date Abnormal ECG Chronic GERD 12/28/2016 Chronic kidney disease COPD (chronic obstructive pulmonary disease) ([facility]) Coronary artery disease Coronary artery disease involving samish coronary artery of samish heart without angina pectoris 12/28/2016 Essential hypertension [...] day. Breakfast will be things like bagels, gabonese muffins, eggs, sausage, cote, hash browns, or [...] of Nutrition and Dietetics (AND) and the [place] Society of Enteral and Parenteral Nutrition (ASPEN). [...] To reach the Clinical Dietitian, please utilize [employer] chat (more content not included)...[facility]06-09-2025 NoteSubjective Chiara Eduardo is a 69 year old female who reported shortness of breath yesterday. She has a PMH including COPD, HTN, HLD, and chronic GERD. She quit smoking in 2017. She presented to [facility] last night with shortness of breath and acute on chronic abdominal pain. X-ray showed right lower lobe pneumonia with increased troponin of 78.9 and lactic acid of 3.2. She was started on heparin drip, given antibiotics and sent to [facility] for further follow-up. Upon arrival to [facility], she reported mild lower abdominal pain and denied any ramón pain, cough, palpitation or any other related symptoms. Initial EKG showed sinus rhythm with frequent premature ventricular complexes and low voltage QRS. Follow-up x-ray at [facility] was consistent with the previous findings [...] Temporal -- -- -- -- -- 09/04/24 075 103/56 36.3 ???C (97.3 ???F) Temporal 72 [...] Value Ventricular Rate 93 Atrial Rate 93 SD Interval 138 QRS DURATION 76 QT Interval 354 QTC CALCULATION(BAZETT) 440 P [place] 69 R-[place] 35 T Wave [place] 45 Impression Sinus rhythm with frequent Premature [...] from 1,478 yesterday to (more content not included)...[facility]06-08-2025 Note Hospital Medicine History and Physical 09/03/2024 5:56 PM THE HOSPITALIST TEAM PREFERS TO USE [employer] CHAT FOR COMMUNICATION 7AM-7PM. IF I DO NOT RESPOND WITHIN 15 MINUTES, PLEASE PAGE ME/CALL THROUGH THE BIN FILLER. FROM 7PM-7AM, PLEASE PAGE [phone](COVR) Chief Complaint Patient is direct admitted from [facility] with shortness of breath. History of Present Illness Chiara Eduardo is an 69 y.o. female who came from home with shortness of breath. Patient has history of COPD, quit smoking 2016, on Lasix 20 mg every other day, started having worsening shortness of breath, and acute on chronic abdominal pain last night, she presented to [facility], found to have right lower lobe pneumonia, with increasing troponin to 78.9, lactic of 3.2, patient was started on heparin drip, antibiotics, and was sent to [facility] for further workup. At time of [...] List Diagnosis Date Noted Non-sustained ventricular tachycardia ([facility]) 11/17/2022 NSTEMI (non-ST elevated myocardial infarction) ([facility]) 09/03/2024 Pneumonia 09/03/2024 Acute hypoxic respiratory failure ([facility]) 09/03/2024 CRP elevated 07/26/2024 Elevated WBC count 07/26/2024 Body mass index (BMI) 35.0-35.9, adult 06/08/2024 Irregular heartbeat 04/18/2024 Stage 3a chronic kidney disease ([facility]) 04/12/2023 Multiple pulmonary nodules 03/02/2023 PVC (premature ventricular contraction) 12/31/2022 History of tobacco use 12/28/2022 [place] [facility] [place] (current) 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 12/28/2022 Anemia 10/27/2022 Hypomagnesemia 10/27/2022 Hyponatremia 10/27/2022 Arrhythmia 10/26/2022 Former smoker 01/22/2020 Health care maintenance 01/22/2020 Diuretic-induced hypokalemia 01/16/2018 History of acute inferior wall MD 01/13/2018 Bladder prolapse, female, acquired 12/28/2016 Chronic GERD 12/28/2016 COPD (chronic obstructive pulmonary disease) ([facility]) 12/28/2016 Coronary artery disease involving samish coronary artery of samish heart without angina pectoris 12/28/2016 Lower back pain 12/28/2016 Severe obesity (BMI 35.0-39.9) with comorbidity ([facility]) 12/28/2016 Shortness of breath 12/28/2016 Essential hypertension 12/14/2016 Mixed hyperlipidemia 12/14/2016 Angina pectoris, unstable ([facility]) 06/15/2024 Chest pain 07/08/2022 Assessment and Plan # Acute hypoxic respiratory failure # Pneumonia - Patient requiring nonrebreather upon arrival to [facility], will get ABG, switch to high flow nasal cannula - Due to to pneumonia, there is also component of heart failure -Chest x-ray at [facility] showed right lower lobe pneumonia, unfortunately images [...] was 8.5 then up to 78.9 at [facility], with no acute ST changes. - Keep [...] this hospital stay by a member of [facility] Medicine. Past Medical History Past Medical History: Diagnosis Date Abnormal ECG (more content not included)...[facility]05-06-2025 Note [facility] Cardiology Clinic Note Chief Complaint: Patient here [...] has noticed worsening shortness of breath. 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 adjusted her inhalers but this does not [...] kidney disease, COPD (chronic obstructive pulmonary disease) ([facility]), Coronary artery disease, Coronary artery disease involving samish coronary artery of samish heart without angina pectoris (12/28/2016), Essential hypertension [...] x3, well developed, in (more content not included)...[facility]04-30-2025 Evaluation note* Diagnosis Stage 3a chronic kidney disease (HCC) (CMS/HCC)- Primary Other hyperlipidemia Coronary artery disease involving samish coronary artery of samish heart without angina pectoris (CMS/HCC) Irregular heartbeat- Primary Unspecified cardiac dysrhythmia Essential (primary) hypertension (CMS/HCC)- Primary Unspecified essential hypertension Morbid (severe) obesity due to excess calories (CMS/HCC) Body mass index (BMI) 35.0-35.9, adult Chronic obstructive pulmonary disease, unspecified Chronic kidney disease, stage 3b (HCC) (CMS/HCC) Coronary artery disease involving samish coronary artery of samish heart without angina pectoris (CMS/HCC) Hypomagnesemia Disorders of magnesium metabolism Mixed hyperlipidemia (CMS/HCC) Mixed hyperlipidemia Chronic low back pain, unspecified back pain laterality, unspecified whether sciatica present Leukocytosis, unspecified type- Primary [id number]* Diagnosis Stage 3a chronic kidney disease (HCC) (CMS/HCC)- Primary Other hyperlipidemia Coronary artery disease involving samish coronary artery of samish heart without angina pectoris (CMS/HCC) Irregular heartbeat- Primary Unspecified cardiac dysrhythmia Essential (primary) hypertension (CMS/HCC)- Primary Unspecified essential hypertension Morbid (severe) obesity due to excess calories (CMS/HCC) Body mass index (BMI) 35.0-35.9, adult Chronic obstructive pulmonary disease, unspecified Chronic kidney disease, stage 3b (HCC) (CMS/HCC) Coronary artery disease involving samish coronary artery of samish heart without angina pectoris (CMS/HCC) Hypomagnesemia Disorders of magnesium metabolism Mixed hyperlipidemia (CMS/HCC) Mixed hyperlipidemia Chronic low back pain, unspecified back pain laterality, unspecified whether sciatica present Leukocytosis, unspecified type- Primary CRP elevated Elevated C-reactive protein (CRP) documented [facility] this encounter [id number] Evaluation note* Diagnosis Onset Date Resolution Status [...] D deficiency acute [employer] 2024 1:35pm [facility] Work Phone: [phone]) 926-537204-07-2025 NoteIV fluid bolus at 999ml per hr started. Patient states feeling lightheaded. Placed in reverse trendelenburg. States feels better with change in position [facility]03-31-2025 NoteDrLissett Azevedo made aware - patient is coming for R/Cors on 07/03/24 (procedure at 10:30am). She had labs on 06/26/2024. BUN 23 (normal 7.0-18.0), creat 1.34 (normal 0.55-1.02). She has a history of CKD (per her clinic note).[facility] Chief [...] has noticed worsening shortness of breath. 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 Hypertensive end-organ damage includes kidney disease andCAD/MD. Identifiable causes of hypertension include chronic renal [...] (syndrome of inappropriate ADH production) (CMS/HCC) Stroke ([facility]/HCC) Past Surgical History: Procedure Laterality Date CARDIAC [...] albuterol, trelegy, Under the care of pulmonology [facility] Coronary artery disease involving samish coronary artery of samish heart without angina pectoris (CMS/HCC) (Chronic) Under [...] Problem(s): Chronic kidney disease, stage 3b (HCC) ([facility]/HCC) Goal to keep blood pressure well control [...] AM EDTAssociated Problem(s): Coronary artery disease involving samish coronary artery of samish heart without angina pectoris (CMS/HCC) Under the care of cardiology Current meds: statin, asa, imdur, b shyam, arb, diuretic, and ranexa Aggressive risk factor modification * Nolvia Jimenez NP - 06/08/2024 7:38 AM EDTAssociated Problem(s): Chronic obstructive pulmonary disease, unspecified (CMS/HCC) Current meds: albuterol, trelegy, Under the care of pulmonology [facility] documented in this encounter[facility] [id number] Evaluation note* Diagnosis Stage 3a chronic kidney disease (HCC) (CMS/HCC)- Primary Other hyperlipidemia (CMS/HCC) Coronary artery disease involving samish coronary artery of samish heart without angina pectoris (CMS/HCC) Irregular heartbeat- Primary Unspecified cardiac dysrhythmia Essential (primary) hypertension (CMS/HCC)- Primary Unspecified essential hypertension Morbid (severe) obesity due to excess calories (CMS/HCC) Body mass index (BMI) 35.0-35.9, adult Chronic obstructive pulmonary disease, unspecified (CMS/HCC) Chronic kidney disease, stage 3b (HCC) (CMS/HCC) Coronary artery disease involving samish coronary artery of samish heart without angina pectoris (CMS/HCC) Hypomagnesemia Disorders of magnesium metabolism Mixed hyperlipidemia (CMS/HCC) Mixed hyperlipidemia Chronic low back pain, unspecified back pain laterality, unspecified whether sciatica present documented in this encounter [id number] NoteUT Electrophysiology Consult Note Reason for visit: [...] and effient. She was recently seen at [facility] as a transfer from [facility] for complaints of symptomatic wide-complex [...] kidney disease COPD (chronic obstructive pulmonary disease) ([facility]) Coronary artery disease Coronary artery disease involving samish coronary artery of samish heart without angina pectoris 12/28/2016 Essential hypertension 12/14/2016 Hyperlipidemia Lower back pain 12/28/2016 Mixed hyperlipidemia 12/14/2016 Shortness of breath 12/28/2016 PSH: Past Surgical History: Procedure Laterality Date CARDIAC CATHETERIZATION CHOLECYSTECTOMY CORONARY STENT PLACEMENT HYSTERECTOMY SH: Social Determinants of Health Tobacco Use: Medium Risk (04/26/2024) Received from [facility] Healthcare Patient History Smoking Tobacco Use: Former Smokeless Tobacco Use: Never Passive Exposure: Not on file Alcohol Use: Not At Risk (01/14/2019) Received from [facility] Frequency of Alcohol Consumption: Monthly or less Average Number of Drinks: 1 or 2 Frequency of Binge Drinking: Never Financial Resource Strain: Low Risk (10/26/2022) Overall [employer] (more content not included)...[facility]01-29-2025 History of Present illness Narrative* Shanda [...] weeks with BP readings. documented in this [facility]01-29-2025 Instructions* Patient Instructions* Shanda Cheng NP - [...] numbness/tingling GO TO ER!!! documented in this [facility]01-29-2025 Evaluation note* Diagnosis Stage 3a chronic kidney disease (HCC) (CMS/HCC)- Primary Other hyperlipidemia (CMS/HCC) Coronary artery disease involving samish coronary artery of samish heart without angina pectoris (CMS/HCC) Irregular heartbeat- Primary Unspecified cardiac dysrhythmia Essential hypertension (CMS/HCC)- Primary Unspecified essential hypertension documented in this encounter [facility] [id number] History of Present illness Narrative* Shanda Cheng [...] who presents for Follow-up. HPI Specialists: Cardiology- [facility] Nephrology- Dr. [place] Pulmonology- Dr. Schumacher [...] further eval and treatment documented in this encounterSaint [facility] [id number] Evaluation note* Diagnosis Stage 3a chronic kidney disease (HCC) (CMS/HCC)- Primary Other hyperlipidemia (CMS/HCC) Coronary artery disease involving samish coronary artery of samish heart without angina pectoris (CMS/HCC) Irregular heartbeat- Primary Unspecified cardiac dysrhythmia documented in this encounter [facility] [id number] Evaluation note* Diagnosis Stage 3a chronic kidney disease (HCC) (CMS/HCC)- Primary Other hyperlipidemia (CMS/HCC) Coronary artery disease involving samish coronary artery of samish heart without angina pectoris (CMS/HCC) Stage 3a chronic kidney disease (HCC) (CMS/HCC)- Primary documented in this encounter [facility] [id number] History of Present illness Narrative* Shanda Cheng NP - 01/17/2024 1:00 PM EDT Images from the original note were not included. Subjective : Chief Complaint: Chiara Eduardo is an 68 y.o. female here for an annual wellness visit. Specialists: Cardiology- [facility], [place] Pulmonology- Dr. Schumacher [...] on January 17, 2024 documented in this encounterSaint [facility]'s [id number] NoteUT Electrophysiology Consult Note Reason for visit: [...] and effient. She was recently seen at [facility] as a transfer from [facility] for complaints of symptomatic wide-complex [...] kidney disease COPD (chronic obstructive pulmonary disease) ([facility]) Coronary artery disease Coronary artery disease involving samish coronary artery of samish heart without angina pectoris 12/28/2016 Essential hypertension [...] Places Lived in the (more content not included)...[facility]12-12-2023 Evaluation note* Encounter Date Diagnosis Assessment [...] deficiency (ICD-10 - E55.9) continue VD supplement [employer] Other 01-10-2023 Evaluation note* Encounter Date Diagnosis [...] I will recheck sodium level next visit [employer] Other Evaluation note* Diagnosis Onset Date Resolution Status Anemia acute Hyperkalemia acute Hypertensive nephropathy acu te Hyperuricemia acute Hypomagnesemia acute Hyponatremia acute Stage 3b chronic kidney disease acute Vitamin D deficiency acute [facility] Work Phone: Evaluation note* Diagnosis Stage 3a chronic kidney disease (HCC) (CMS/HCC)- Primary Other hyperlipidemia (CMS/HCC) Coronary artery disease involving samish coronary artery of samish heart without angina pectoris (CMS/HCC) Routine general medical examination at health care facility- Primary Routine general medical examination at a health care facility documented in this encounter [facility] HealthcareEvaluation note* Diagnosis Stage 3a chronic kidney disease (HCC) (CMS/HCC)- Primary Other hyperlipidemia (CMS/HCC) Coronary artery disease involving samish coronary artery of samish heart without angina pectoris (CMS/HCC) Other hyperlipidemia (CMS/HCC) documented in this encounter [facility] HealthcareEvaluation note* Diagnosis Stage 3a chronic kidney disease (HCC) (CMS/HCC)- Primary Other hyperlipidemia (CMS/HCC) Coronary artery disease involving samish coronary artery of samish heart without angina pectoris (CMS/HCC) Irregular heartbeat- Primary Unspecified cardiac dysrhythmia Essential hypertension (CMS/HCC)- Primary Unspecified essential hypertension documented in this encounter [facility] HealthcareEvaluation note* Diagnosis Stage 3a chronic kidney disease (CMS-HCC)- Primary Other hyperlipidemia Coronary artery disease involving samish coronary artery of samish heart without angina pectoris Irregular heartbeat- Primary Unspecified cardiac dysrhythmia Essential (primary) hypertension- Primary Unspecified essential hypertension Morbid (severe) obesity due to excess calories (CMS-HCC) Body mass index (BMI) 35.0-35.9, adult Chronic obstructive pulmonary disease, unspecified (HCC) Chronic kidney disease, stage 3b (CMS-HCC) Coronary artery disease involving samish coronary artery of samish heart without angina pectoris Hypomagnesemia Disorders of magnesium metabolism Mixed hyperlipidemia Mixed hyperlipidemia Chronic low back pain, unspecified back pain laterality, unspecified whether sciatica present Pneumonia of right lower lobe due to infectious organism- Primary Acute hypoxic respiratory failure (HCC) Coronary artery disease involving samish coronary artery of samish heart without angina pectoris Essential (primary) hypertension [...] initial encounter- Primary documented in this encounter [facility] HealthcareEvaluation noteNo assessment information availableReg[facility] Work Phone: Evaluation note* Diagnosis Onset Date Resolution Status Admit Date CAD involving samish coronar y artery without angina pectoris acute [...] mellitus without complication acute November 282024 2:32pm [facility] Work Phone: Hishihq general Narrative - Reported* Type Description Date Medical History CHRONIC OBSTRUCTIVE PULMONARY DI SEASE Medical History HYPERTENSION Medical History GERD Medical History HYPERLIPIDEMIA Medical History HEART ATTACK Surgical History HYSTERECTOMY Surgical History GALL BLADDER Surgical History TUBES TIED Surgical History 2 HEART STENTS Hospitalization History SEE ABOVE [employer] Other [employer] general Narrative - Reported* Type Description Date Medical History CHRONIC OBSTRUCTIVE PULMONARY DI SEASE Medical History HYPERTENSION Medical History GERD Medical History HYPERLIPIDEMIA Medical History HEART ATTACK Medical History V-TACH Surgical History HYSTERECTOMY Surgical History GALL BLADDER Surgical History TUBES TIED Surgical History 2 HEART STENTS Surgical History HEART CATH AND STENT PLACEMENT 07/14/2022 Hospitalization History SEE ABOVE Hospitalization History V-TACH [employer] Other Hospital Discharge instructions Additional Instructions DISCHARGE [...] three times daily if needed. -Office number [phone]. [facility] Work Phone: Reason for referral (narrative)No reason for referral information availableRegency Hospital [facility] Work Phone: Summary Purpose Family History Relationship Condition Age at Onset Recorded Date/T abdirizak daughter Hypertension Unknown father Unknown Hypertension Unknown mother Heart disease Unknown History of stroke Unknown Unknown sister Hypertension Unknown Advance Directives Advance Directive Response Recorded Date/ Time Advance Directives No November 16, 2023 9:54am Documents on File Type Date Recorded Patient Edger Runner Expl anation Power of Top Spotter 09/06/2024 3:49 PM Healt h care power of civil litigation attorney-[facility] Documents on File Type Date Recorded Patient Edger Runner Expl anation Power of Top Spotter 09/06/2024 3:49 PM Healt h care power of civil litigation attorney-[facility] Chief Complaint and Reason for Visit Chief [...] positive cologuard, constipation November 01, 2024 10:27am Chief Complaint Admit Date positive cologuard, constipation November 01, 2024 10:27am 6W December 25, 2024 2:32pm Reason for Visit Admit Date CAD involving samish coronar y artery without angina pectoris December 25, 2024 2:32pm Essential hypertension December 25 025 2:32pm GERD without esophagitis December 25, 2024 2:32pm Mixed hyperlipidemia December 25 2:32pm Morbid (severe) obesity due to excess ca lories December 25, 2024 2:32pm Stage 3b chronic kidney disease Novembe 2024 2:32pm Type 2 diabetes mellitus without complic ation December 25, 2024 2:32pm Chief Complaint Admit Date positive cologuard, constipation November 01, 2024 10:27am 6W December 25, 2024 2:32pm REF NOLVIA AICEDILIAZ NAUSEA/VOMITING/GASTRO PAIN December 28, 2024 10:37am Reason for Visit Admit Date CAD involving samish coronar y artery without angina pectoris December 25, 2024 2:32pm Essential hypertension December 25 025 2:32pm GERD without esophagitis December 25, 2024 2:32pm Mixed hyperlipidemia December 25 2:32pm Morbid (severe) obesity due to excess ca lories December 25, 2024 2:32pm Stage 3b chronic kidney disease Novembe r 2024 2:32pm Type 2 diabetes mellitus without complic ation December 25, 2024 2:32pm Constipation December 28, 2024 10 :37am Diverticular stricture December 28, 2024 10:37am GERD without esophagitis December 28 10:37am Nausea & vomiting December 28, 2024 10 :37am Additional Source Comments REASON FOR VISIT (unrecogniz [...] and content) DATE CREATED AUTHOR 08/07/2022 [facility] DATE CREATED AUTHOR AUTHOR'S ORGANIZ ATION 11/12/2024 [facility] DATE CREATED AUTHOR AUTHOR'S ORGANIZ ATION 11/14/2024 [facility] EPIC DATE CREATED AUTHOR AUTHOR'S ORGANIZ ATION 12/09/2024 [facility] Care Teams (unrecognized sec tion and [...] Start: November 282023 End: December 20, 2023 Shell Molder Relationship Specialty Start Date End Date Shaikh Larios MD [address] [place] [address] PCP - Alexx FLOWER 04/29/23 Trace Kelly MD [address] [place] [address] PCP - General Family Medicine 11/10/23 Shanda Cheng NP [address] [place] [address] Nurse Practitioner Family Medicine 11/10/23 Shell Molder Relationship Specialty Start Date End Date Shaikh Larois MD [address] [place] [address] PCP - Alexx FLOWER 04/29/23 Trace Kelly MD [address] [place] [address] PCP - General Family Medicine 01/17/24 Shanda Cheng, OBEDIENCE TRAINER [address] [place] [address] Nurse Practitioner Family Medicine 11/10/23 Shell Molder Relationship Specialty Start Date End Date Shaikh Larios MD [address] [place] [address] YOLANDE Coffey MA 04/29/23 Trace Kelly MD [address] [place] [address] PCP - General Family Medicine 01/17/24 Shanda Cheng NP [address] [place] [address] Nurse Practitioner Family Medicine 11/10/23 Shell Molder Relationship Specialty Start Date End Date Shaikh Larios MD [address] [place] [address] PCP - Alexx FLOWER 04/29/23 Trace Kelly MD [address] [place] [address] PCP - General Family Medicine 01/17/24 Shanda Cheng NP [address] [place] [address] Nurse Practitioner Family Medicine 11/10/23 Shell Molder Relationship Specialty Start Date End Date Shaikh Larios MD [address] [place] [address] PCP - Alexx FLOWER 04/29/23 Trace Kelly MD [address] [place] [address] PCP - General Family Medicine 11/10/23 Shanda Cheng NP [address] [place] [address] Nurse Practitioner Family Medicine 11/10/23 Shell Molder Relationship Specialty Start Date End Date Shaikh Larios MD [address] [place] [address] PCP Ana Lilia Coffey MA 04/29/23 Trace Kelly MD [address] [place] [address] PCP - General Family Medicine 01/17/24 Shanda Cheng NP [address] [place] [address] Nurse Practitioner Family Medicine 11/10/23 Shell Molder Relationship Specialty Start Date End Date Shaikh Larios MD [address] [place] [address] PCP Ana Lilia Coffey MA 04/29/23 Trace Kelly MD [address] [place] [address] PCP - General Family Medicine 01/17/24 Shanda Cheng, NIXON [address] [place] [address] Nurse Practitioner Family Medicine 11/10/23 Shell Molder Relationship Specialty Start Date End Date Shaikh Larios MD [address] [place] [address] PCP Ana Lilia Coffey MA 04/29/23 Trace Kelly MD [address] [place] [address] PCP - General Family Medicine 01/17/24 Shanda Cheng NP [address] [place] [address] Nurse Practitioner Family Medicine 11/10/23 Shell Molder Relationship Specialty Start Date End Date Shaikh Larios MD [address] [place] [address] PCP - Alexx FLOWER 04/29/23 Trace Kelly MD [address] [place] [address] PCP - General Family Medicine 01/17/24 Shanda Cheng NP [address] [place] [address] Nurse Practitioner Family Medicine 11/10/23 Shell Molder Relationship Specialty Start Date End Date Trace Kelly MD [address] [place] [address] PCP - General Family Medicine 01/17/24 Shanda Cheng NP PCP - Alexx FLOWER 03/29/24 Shanda Cheng NP Nurse Practitioner Family Medicine 11/10/23 Shell Molder Relationship Specialty Start Date End Date Trace Kelly MD [address] [place] [phone] PCP - General Family Medicine 01/17/24 Shanda [...] July 25, 2024 End: July 25, 2024 Shell Molder Relationship Specialty Start Date End Date Trace Kelly MD [address] [place] [address] PCP - General Family Medicine 01/17/24 Shanda Cheng NP PCP Ana Lilia Coffey MA 03/29/24 Shanda Cheng NP Nurse Practitioner Family Medicine 11/10/23 Shell Molder Relationship Specialty Start Date End Date Trace Kelly MD [address] [place] [address] PCP - General Family Medicine 01/17/24 Shanda Cheng NP PCP - Alexx FLOWER 03/29/24 Shanda Cheng NP Nurse Practitioner Family Medicine 11/10/23 Team Status: Inactive Member Role Status Dates Nolvia Jimenez Attending Provider Active Start: July 26, 2024 End: July 26, 2024 Shell Molder Relationship Specialty Start Date End Date Trace Kelly MD [address] [place] [address] PCP - General Family Medicine 01/17/24 Shanda Cheng NP PCP - Alexx FLOWER 03/29/24 Shanda Cheng NP Nurse Practitioner Family Medicine 11/10/23 Shell Molder Relationship Specialty Start Date End Date Trace Kelly MD [address] [place] [phone] PCP - General Family Medicine 01/17/24 Shanda Cheng NP PCP - Alexx FLOWER 03/29/24 Shanda Cheng NP Nurse Practitioner Family Medicine 11/10/23 Shell Molder Relationship Specialty Start Date End Date Trace Kelly MD [address] [place] [phone] PCP - General Family Medicine 01/17/24 Shanda Cheng NP PCP - Alexx FLOWER 03/29/24 Shanda Cheng NP Nurse Practitioner Family Medicine 11/10/23 Shell Molder Relationship Specialty Start Date End Date Trace Kelly MD [address] [place] [phone] PCP - General Family Medicine 01/17/24 Shanda Cheng NP PCP - Alexx FLOWER 03/29/24 Shanda Cheng NP Nurse Practitioner Family Medicine 11/10/23 Shell Molder Relationship Specialty Start Date End Date Trace Kelly MD [address] [place] [phone] PCP - General Family Medicine 01/17/24 Shanda Cheng NP PCP - Alexx FLOWER 03/29/24 Shanda Cheng NP Nurse Practitioner Family Medicine 11/10/23 Shell Molder Relationship Specialty Start Date End Date Trace Kelly MD [address] [place] [phone] PCP - General Family Medicine 01/17/24 Shanda Cheng NP PCP - Alexx FLOWER 03/29/24 Shanda Cheng NP Nurse Practitioner Family Medicine 11/10/23 Shell Molder Relationship Specialty Start Date End Date Trace Kelly MD [address] [place] [phone] PCP - General Family Medicine 01/17/24 Shanda Cheng NP PCP - Alexx FLOWER 03/29/24 Shanda Cheng NP Nurse Practitioner Family Medicine 11/10/23 Shell Molder Relationship Specialty Start Date End Date Trace Kelly MD [address] [place] [phone] PCP - General Family Medicine 01/17/24 Shanda Cheng NP PCP - Alexx FLOWER 03/29/24 Shanda Cheng NP Nurse Practitioner Family Medicine 11/10/23 Shell Molder Relationship Specialty Start Date End Date Trace Kelly MD [address] [place] [phone] PCP - General Family Medicine 01/17/24 Shanda Cheng NP PCP - Alexx FLOWER 03/29/24 Shanda Cheng NP Nurse Practitioner Family Medicine 11/10/23 Shell Molder Relationship Specialty Start Date End Date Trace Kelly MD [address] [place] [phone] PCP - General Family Medicine 01/17/24 Shanda Cheng NP PCP - Alexx FLOWER 03/29/24 Shanda Cheng NP Nurse Practitioner Family Medicine 11/10/23 Shell Molder Relationship Specialty Start Date End Date Trace Kelly MD [address] [place] [phone] PCP - General Family Medicine 01/17/24 Shanda [...] Provider Active Sta rt: November 01, 2024 Shell Molder Relationship Specialty Start Date End Date Trace Kelly MD [address] [place] [phone] PCP - General Family Medicine 01/17/24 Shanda Cheng NP PCP - Alexx FLOWER 03/29/24 Shanda Cheng NP Nurse Practitioner Family Medicine 11/10/23 Shell Molder Relationship Specialty Start Date End Date Trace Kelly MD [address] [place] [phone] PCP - General Family Medicine 01/17/24 Shanda Cheng NP PCP - Alexx FLOWER 03/29/24 Shanda Cheng NP Nurse Practitioner Family Medicine 11/10/23 Shell Molder Relationship Specialty Start Date End Date Trace Kelly MD [address] [place] [address] PCP - General Family Medicine 01/17/24 Shanda Cheng NP PCP - Alexx FLOWER 03/29/24 Shanda Cheng NP Nurse Practitioner Family Medicine 11/10/23 Shell Molder Relationship Specialty Start Date End Date Trace Kelly MD [address] [place] [address] PCP - General Family Medicine 01/17/24 Shanda Cheng NP PCP Ana Lilia Coffey MA 03/29/24 Shanda Chegn NP Nurse Practitioner Family Medicine 11/10/23 Team Status: Active Member Role Status Dates KARO Webster Primary Care Provider Active Team Status: Active Member Role Status Dates Lisa Perez MD Attending Provider Active Start: November 01, 2024 Lisa Perez MD Other Provider Active Start: Oct KARO Webster Primary Care Provider Active Start: November 01, 2024 Team Status: Active Member Role Status Dates KARO Webster Primary Care Provider Active Start: December 07, 2024 KARO Crum Attending Provider Active S tart: December 07, 2024 Team Status: Inactive Member Role Status Dates KARO Webster Primary Care Provider Active Start: December 25, 2024 End: December 25, 2024 KARO Webster Attending Provider Active Start: December 25, 2024 End: Deepti 29th, 2025 Team Status: Inactive Member Role Status Dates Nolvia Jimenez NP-C Primary Care Provider Active Start: December 28, 2024 End: December 28, 2024 Lisa Perez MD Attending Provider Active Start: December 28, 2024 End: December 28, 2024 Goals (unrecognized section and content) Goals may [...] BE BASED ON THE PRIMARY CLINICAL RECORDS. [facility] [employer] provides no warranty or guarantee of the accuracy or completeness of information in this document.
[2025-01-03 12:10] LABS: Total Protein Urine Random <6.0 mg/dL (<=11.9)
[2025-01-03 12:16] LABS: Hematocrit 36.3 % (36.0-48.0); Hemoglobin 11.7 g/dL (12.0-16.0); Mean Corpuscular HGB Conc 32.2 g/dL (29.9-35.2); Mean Corpuscular Hemoglobin 29.2 pg (26.7-34.0); Mean Corpuscular Volume 90.5 fL (81.0-99.0); Platelet Count 336 10^3/uL (150-450); Red Blood Count 4.01 10^6/uL (4.20-5.40); White Blood Count 7.3 10^3/uL (4.0-11.0)
[2025-01-03 12:17] LABS: Glucose Urine UA 250 mg/dL (NEGATIVE)
[2025-01-03 12:36] LABS: Albumin Level 3.4 g/dL (3.4-5.0); Anion Gap 15.2; Blood Urea Nitrogen 25.0 mg/dL (7.0-18.0); Calcium 8.9 mg/dL (8.5-10.1); Carbon Dioxide 26.9 mmol/L (21.0-32.0); Chloride 98 mmol/L (98-107); Estimated GFR (African America 33 (>=60 mL/min/1.73m^2); Estimated GFR (Non-African Ame 27 (>=60 mL/min/1.73m^2); Glucose 67 mg/dL (74-106); Magnesium 2.0 mg/dL (1.8-2.4); Potassium 4.1 mmol/L (3.5-5.1); Sodium 136 mmol/L (136-145); Uric Acid 7.1 mg/dL (2.6-6.0)
[2025-01-03 12:44] LABS: Iron 48.0 ug/dL (50.0-170.0); Percent Iron Saturation 12.7 %; Total Iron Binding Capacity 377.0 ug/dL (250.0-450.0)
[2025-01-03 16:08] LABS: Ferritin 29.0 ng/mL (8.0-252.0)
== END 2025-01-03 11:30 | disposition home or self-care (01) ==
LOC: LAB 11:30
PROVIDERS: PCP Nurse Practitioner; Visit Provider Internal Medicine Nephrology
DX: E21.3 Hyperparathyroidism, unspecified (principal); E55.9 Vitamin D deficiency, unspecified; D64.9 Anemia, unspecified; E79.0 Hyperuricemia without signs of inflammatory arthritis and tophaceous disease; E87.1 Hypo-osmolality and hyponatremia
CPT/HCPCS: 36415; 80069; 81003; 82306; 82570; 82728; 83540; 83550; 83735; 83970; 84156; 84550; 85027

== ENCOUNTER 2025-02-28 12:49 | Outpatient (OUT) | payer MEDICARE, SELFPAY ==
--- OUTSIDE RECORDS SUMMARY | 2024-01-19 08:00 | XMS_ITS ---
Author Organization [facility] in [place] Address [address] [place] [address] Care Team Providers Care Online Producer Name Role Phone Nolvia Jimenez CNP Primary Care Provider Unavail Brien Estrada Unavailable [phone] REASON FOR VISIT 6MO-COPD Encounters Encounter Location Date Provider Diagnosis Pulmonary Medicine [place] [address] [place] [address] 01/19/2024 Brien Coughlin Plan Of Treatment No Information Progress Notes * Susana JUARESDOB:[birth year] (69 yo F)Acc No.[id number]:01/19/2024 UNLOCKED PROGRESS NOTE Follow Up Patient: Susana MARTIN :?Brien Coughlin DODOB:1955???Age:68 Y ???Sex:FemaleDate:4Phone:[phone]:[id number]-[id number]:Nolvia Jimenez CNP Subjective: * Chief Complaints: * 1 . 6MO-COPD. * Medical History: Objective: * Vitals: Assessment: Plan: * Treatment: * * Electronic signature of Brien Coughlin DO on 02/28/2025 at 12:53 PM ESTSign off status: PendingVisit Status:?R/S (Rescheduled) * Provider: Tam Coughlin DO Date: 1 Generated for Printing/Faxing/eTransmitting on:?02/28/2025 12:53 PM EST
--- OUTSIDE RECORDS SUMMARY | 2024-01-26 06:00 | XMS_ITS ---
Author Organization [facility] in [place] Address [address] [place] [address] Care Team Providers Care Police Captain Name Role Phone Nolvia Jimenez CNP Primary Care Provider Unavail Brien Estrada Unavailable [phone] REASON FOR VISIT 6MO-COPD Encounters Encounter Location Date Provider Diagnosis Pulmonary Medicine [address] [address] 01/26/2024 Brien Coughlin Plan Of Treatment No Information Progress Notes * Susana JUARESDOB:[birth year] (69 yo F)Acc No.[id number]:01/26/2024 UNLOCKED PROGRESS NOTE Follow Up Patient: Susana MARTIN :?Brien Coughlin DODOB:1955???Age:68 Y ???Sex:FemaleDate:4Phone:[phone]:[address]-[address]Pcp:Nolvia Jimenez CNP Subjective: * Chief Complaints: * 1 . 6MO-COPD. * Medical History: Objective: * Vitals: Assessment: Plan: * Treatment: * * Electronic signature of Brien Coughlin DO on 02/28/2025 at 12:55 PM ESTSign off status: PendingVisit Status:?R/S (Rescheduled) * Provider: Tam Cuoghlin DO Date: Generated for Printing/Faxing/eTransmitting on:?02/28/2025 12:55 PM EST
--- OUTSIDE RECORDS SUMMARY | 2024-11-22 06:30 | XMS_ITS ---
Author Organization [facility] in [place] Address [address] [place] [address] Care Team Providers Care Project Management It Specialist Name Role Phone Nolvia Jimenez CNP Primary Care Provider Unavail Brien Estrada Unavailable [phone] REASON FOR VISIT 3m F/U - COPD Encounters Encounter Location Date Provider Diagnosis Pulmonary Medicine [place] [address] [place] [address] 11/22/2024 Brien Coughlin Plan Of Treatment No Information Progress Notes * Susana JU[birth year]ESDOB:[birth year] (69 yo F)Acc No.[id number]:11/22/2024 UNLOCKED PROGRESS NOTE Follow Up Patient: Susana MARITN :?MERT GreeneOB:1955???Age:69 Y ???Sex:FemaleDate:11/22/2024Phone:[phone]:[address]-[address]Pcp:Nolvia Jimenez CNP Subjective: * Chief Complaints: * 1 . 3m F/U - COPD. * Medical History: Objective: * Vitals: Assessment: Plan: * Treatment: * * Electronic signature of Brien Coughlin DO on 02/28/2025 at 12:53 PM ESTSign off status: PendingVisit Status:?OFF CANC (OFFICE CANCEL) * Provider: Tam Coughlin DO Date: 0 11/22/2024 Generated for Printing/Faxing/eTransmitting on:?02/28/2025 12:53 PM EST
--- OUTSIDE RECORDS SUMMARY | 2025-02-15 11:00 | XMS_ITS | Encounter Summary ---
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 Name Role Phone Nolvia Jimenez MD Primary Care Provider [phone] Brien Coughlin MD Unavailable Reason for Referral * Imaging (Routine) - Pending ReviewSpecialtyDiagnoses / ProceduresReferred By ContactReferred To ContactCardiology Diagnoses Heart failure with mildly reduced ejection fraction (CMS/HCC) ELY (dyspnea on exertion) Procedures Transthoracic echo (TTE) complete Zack Villarreal CNP [address] [place] [address] Phone: tel: fax: Referral IDStatusReasonStart DateExpiration DateVisits RequestedVisits [id number] Review Perform Procedure 51 Reason for Visit * ReasonCommentsFollow-upPatient is here today for a 3 month follow up. Denies chest pain, dizziness/light headedCoronary Artery DiseaseHyperlipidemia HypertensionNSVTPVCNSTEMICongestive Heart FailurePacemakerEdemaBilateral leg swelling, ok in the am and gradually increases as the day goes onFatigue increased Encounter Details DateTypeDepartmentCare Team (Latest Contact Info)Vwbrckiroud50/ 11:00 AM ESTOffice Visit [facility] [address] [place] [address] Zack Villarreal, ONLINE TUTOR [address] [place] [address] Heart failure with mildly reduced ejection fraction (CMS/HCC) (Primary Dx); Bilateral lower extremity edema; ELY (dyspnea on exertion); Coronary artery disease involving ouzinkie coronary artery of ouzinkie heart without angina pectoris; Benign hypertensive heart disease with heart failure (CMS/HCC); Mixed hyperlipidemia; Stage 3a chronic kidney disease (CMS/HCC) Social History Tobacco UseTypesPacks/DayYears UsedDateSmoking Tobacco: FormerCigarettesPassive Smoke Exposure: PastSmokeless Tobacco: NeverAlcohol UseStandard Drinks/Week CommentsYes0 (1 standard drink = 0.6 oz pure alcohol)occaiCritical access hospital Utilities AnswerDate RecordedIn the past 12 months has the virocyt, gas, oil, or water [employer] threatened to shut off services in your home?No09/03/2024Humiliation, Afraid, Rape, and Kick questionnaireAnswerDate RecordedWithin the last year, have you been afraid of your partner or ex-partner?No09/03/2024Emotionally AbusedNot on file09/03/2024Physically AbusedNot on file09/03/2024Sexually Abused Not on file09/03/2024Overall Financial Resource Strain (CARDIA)AnswerDate RecordedHow hard is it for you to pay for the very basics like food, housing, medical care, and heating?Not very hard09/03/2024UT Safety & EnvironmentAnswer Date RecordedWithin the last year, have you been afraid of your partner or ex-partner?No10/26/2022Emotionally AbusedNot on file10/26/2022hysically Abused Not on file10/26/2022Sexually AbusedNot on file10/26/2022hysically or Sexually AbusedNot on file10/26/2022TransportationAnswerDate RecordedIn the past 12 months, has lack of transportation kept you from medical appointments or from getting medications?No09/03/2024Lack of Transportation (Non-Medical)Not on file 09/03/2024Housing Stability Vital SignAnswerDate RecordedIn the last 12 months, was there a time when you were not able to pay the mortgage or rent on time?No 09/03/2024Number of Times Moved in the Last YearNot on file09/03/2024t any time in the past 12 months, were you homeless or living in a mcfp (including now)? No09/03/2024Hunger Vital SignAnswerDate RecordedWithin the past 12 months, you worried that your food would run out before you got the money to buymore. Sometimes true09/03/2024Ran Out of Food in the Last YearNot on file09/03/2024 CommentsNoSex and Gender InformationValueDate RecordedSex Assigned at EcimzXyhosh52/02/2025 10:26 AM EDTLegal IsnPqvqhm58/29/2022 9:48 PM EDTGender QsfzrdanDkhrex78/02/2025 10:26 AM EDTSexual OrientationHeterosexual or Straight 07/28/2024 10:26 AM EDTdocumented as of this encounter Last Filed Vital Signs Vital SignReadingTime TakenCommentsBlood Cpwlmgcy576/8802/15/2025 11:06 AM EST Pgbkh967502/15/2025 11:06 AM ESTTemperature--Respiratory Rate--Oxygen Saturation 97%02/15/2025 11:06 AM ESTInhaled Oxygen Concentration--Ictmpe43.6 kg (191 lb) 02/15/2025 11:06 AM PZARojvug689 cm (5' 3 )02/15/2025 11:06 AM ESTBody Mass Index33.8302/15/2025 11:06 AM ESTdocumented in this encounter Progress Notes * Zack Villarreal CNP - 02/15/2025 11:00 AM EST Images from the original note were not included. SUBJECTIVE Reason for Visit: Susana Juares is a 69 y.o. year old female patient being seen for 3-month follow-up visit. HPI: Susana Juares is a 69 y.o. year old female with significant medical history of coronary artery disease, prior stent placement, COPD, History of acute inferior wall WY, HT, HLP, CKD, and obesity. 02/15/2025 office visit: Patient seen evaluated in the office today for follow-up visit. She reports doing okay overall. Shereports that her swelling is slightly worse. Her kidney function is up as well. She is seeing a cvir tech last saw them in December. She does have a follow-up appointment in approximately 2 months.They are closely monitoring her renal function. She reports her palpitations are much improved. Shecontinues to use as needed oxygen on exertion. Otherwise, denies chest pain, palpitations, lightheadedness or dizziness. 11/20/2024 office visit: Patient is seen and evaluated in the office today. Denies chest pain, lightheadedness or dizziness.Endorses stable lower extremity edema. On exam trace lower extremity edema. She reports this is being improved since prior visit. She continues on Lasix 40 mg daily. Endorses daily palpitations. She s tates her palpitations were much better controlled on [...] Diastolic Murmur: not heard. Extremities: Trace lower extremity. Peripheral Pulses: Pulses: full and equal in [...] Daily atorvastatin (LIPITOR) 80 mg, oral, Daily wresjjxxwg-xsatzkgb-kfhooaxxxv (Breztri Aerosphere) 160-9-4.8 mcg/actuation HFA aerosol inhaler 160mcg, Daily cholecalciferol (VITAMIN D-3) 2,000 Units, Daily cyclobenzaprine (FLEXERIL) 10 mg, 3 times daily PRN dapagliflozin propanediol (FARXIGA) 10 mg, oral, Daily Dupixent Syringe 300 mg, Every 14 days fhtuctywnyy-uufhwssew-zmreapqv (Trelegy Ellipta) 100-62.5-25 mcg blister with device 1 puff, Every 24 hours furosemide (LASIX) 20 mg, oral, Daily furosemide (LASIX) 40 mg, oral, Daily ipratropium-albuteroL (Duo-Neb) 0.5-2.5 mg/3 mL nebulizer solution 3 mL, 4 times daily isosorbide mononitrate ER (IMDUR) 60 mg, oral, Once Daily, Do not crush or chew. magnesium 200 mg tablet 1 tablet, Daily metoprolol succinate XL (TOPROL-XL) 50 mg, oral, 2 times daily, Do not crush or chew. metoprolol tartrate (LOPRESSOR) 25 mg, oral, 2 times daily nitroglycerin (NITROSTAT) 0.4 mg, sublingual, Every 5 min PRN olmesartan (BENICAR) 40 mg, oral, Once Daily predniSONE (DELTASONE) 10 mg, Daily spironolactone (ALDACTONE) 25 mg, oral, Daily Recent Labs: No visits with results within 2 Month(s) from this visit. Latest known visit with results is: Admission on 09/03/2024, Discharged on 09/05/2024 Component [...] Rate 09/03/2024 90 Atrial Rate 09/03/2024 90 AL Interval 09/03/2024 140 QRS DURATION 09/03/2024 76 QT Interval 09/03/2024 368 QTC CALCULATION(BAZETT) 09/03/2024 450 P Collins 09/03/2024 70 R-Collins 09/03/2024 42 T Wave Collins 09/03/2024 51 Auto WBC 09/03/2024 19.92 (H) [...] Rate 09/03/2024 93 Atrial Rate 09/03/2024 93 AL Interval 09/03/2024 138 QRS DURATION 09/03/2024 76 QT Interval 09/03/2024 354 QTC CALCULATION(BAZETT) 09/03/2024 440 P Collins 09/03/2024 69 R-Collins 09/03/2024 35 T Wave Collins 09/03/2024 45 Triglycerides 09/03/2024 44 Cholesterol 09/03/2024 [...] right internal jugularvein was obtained. A 6 Argentine 11 cm sheath was inserted without difficulty. [...] left radial artery was obtained. A 6 Argentine glide sheath was inserted without difficulty. Bilateral [...] throughout the vessel. Right Coronary Artery Intervention 12 Lead ECG: Encounter Date: 09/03/24 ECG 12 lead Result Value Ventricular Rate 93 Atrial Rate 93 AL Interval 138 QRS DURATION 76 QT Interval 354 QTC CALCULATION(BAZETT) 440 P Collins 69 R-Collins 35 T Wave Collins 45 Impression Sinus rhythm with frequent Premature [...] #Bilateral extremity edema NYHA II (COPD overlap) -Appears compensated -Trace lower extremity edema -Weight today is under 91 pounds -TTE 09/04/2024: EF 44% -TTE 10/27/2022: EF 50% Labs 01/03/2025: Sodium 136, potassium 4.1, creatinine 1.84, eGFR 27 Labs 12/07/2024: Sodium 136, potassium 4.5, creatinine 1.62, eGFR 31 Labs 11/15/2024: Sodium 132, potassium 4.4, creatinine 1.68, eGFR 30 Labs 11/08/2024: Sodium 135, potassium 4.1, creatinine 1.42, eGFR 36 RCH 07/03/2024: RHC shows mildly elevated right-sided and wedge pressures consistent with biventricular congestion; normal cardiac output/index and TPG, suggestive of postcapillary (pulmonary venous) hypertension. GDMT limited by renal function: - Continue Farxiga 10 mg daily - Continue furosemide 40 mg daily (managed per nephrology) - Continue metoprolol tartrate 25 mg twice daily - Continue olmesartan 40 mg daily (Previously prescribed spironolactone 25 mg daily (added 09/22/2024 office visit) ---> taken off due to increased creatinine) #CAD -Denies chest pain -History of acute inferior wall WY -Cardiac catheterization 07/03/2024: Patent RCA stents with mild in-stent restenosis; moderate LCx disease; mild to moderate LAD disease. -Of note pt has allergy to clopidogrel - Continue aspirin 81 mg daily - Continue isosorbide mononitrate ER 60 mg daily - Continue metoprolol tartrate 25 mg twice daily (switched from metoprolol succinate 11/20/2024 per patient request as she reported better control of palpitations on tartrate) #SOB Stable Likely multifactorial including COPD, obesity, and an element of HFmrEF #Nonsustained ventricular tachycardia Nonsustained ventricular tachycardia induced by PVCs #Hypertension BP today is 152/88, heart rate 62 Elevated - Continue olmesartan 40 mg daily - Spironolactone 25 mg daily (added 09/22/2024 office visit) ---> taken off due to increased creatinine #COPD Currently on 2 L nasal cannula PRN, at baseline On albuterol and duoneb inhaler #Hyperlipidemia Most recent lipid panel reviewed, 09/03/2024: LDL 46, HDL 70, triglycerides 44, total cholesterol 125 Stable - Continue atorvastatin 80 mg daily #CKD -Worsening renal function Renal function trends: Labs 01/03/2025: Sodium 136, potassium 4.1, creatinine 1.84, eGFR 27 Labs 12/07/2024: Sodium 136, potassium 4.5, creatinine 1.62, eGFR 31 Labs 11/15/2024: Sodium 132, potassium 4.4, creatinine 1.68, eGFR 30 Labs 11/08/2024: Sodium 135, potassium 4.1, creatinine 1.42, eGFR 36 Labs 07/25/2024: Sodium 135, potassium 4.6, creatinine 1.65, eGFR 31 - She follows nephrology last appointment was in December, they are following her renal function closely. She has a follow-up appointment in April. Plan Overview: Repeat TTE She will follow-up with nephrology Follow-up in 3 months This note was partially composed using voice recognition software. While every effort was made to ensure accuracy, some unintentional jig grinder errors may be present. Zack Villarreal, [facility] Cardiovascular Medicine [1] Past Medical History: Diagnosis Date Abnormal ECG Chronic GERD 12/28/2016 Chronic kidney disease COPD (chronic obstructive pulmonary disease) ([facility]HCC) Coronary artery disease Coronary artery disease involving ouzinkie coronary artery of ouzinkie heart without angina pectoris 12/28/2016 Essential hypertension 12/14/2016 Hyperlipidemia Lower back pain 12/28/2016 Mixed hyperlipidemia 12/14/2016 Myocardial infarction ([facility]) Shortness of breath 12/28/2016 [2] Past Surgical History: Procedure Laterality Date CARDIAC CATHETERIZATION CHOLECYSTECTOMY CORONARY STENT PLACEMENT HYSTERECTOMY [3] Patient Active Problem List Diagnosis Bladder prolapse, female, acquired Chronic GERD COPD (chronic obstructive pulmonary disease) (CMS/HCC) Coronary artery disease involving ouzinkie coronary artery of ouzinkie heart without angina pectoris Diuretic-induced hypokalemia Essential hypertension Former smoker Health care maintenance History of acute inferior wall WY Lower back pain Mixed hyperlipidemia Severe obesity (BMI 35.0-39.9) with comorbidity (CMS/HCC) Shortness of breath Chest pain Arrhythmia Anemia Hypomagnesemia Hyponatremia Non-sustained ventricular tachycardia ([facility]) History of tobacco use Other shelter (current) 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 PVC (premature ventricular contraction) Multiple pulmonary nodules Irregular heartbeat Stage 3a chronic kidney disease ([facility]/HCC) Body mass index (BMI) 35.0-35.9, adult Angina pectoris, unstable (CMS/HCC) CRP elevated Elevated WBC count NSTEMI (non-ST elevated myocardial infarction) (CMS/HCC) Pneumonia Acute hypoxic respiratory failure (CMS/HCC) Elevated troponin Bug bites Epigastric pain Heart failure (CMS/HCC) Other constipation Positive colorectal cancer screening using Cologuard test Type 2 diabetes mellitus without complications (CMS/HCC) [4] Social History Tobacco Use Smoking status: Former Types: Cigarettes Passive exposure: Past Smokeless tobacco: Never Substance Use Topics Alcohol use: Yes Comment: occaisonal Drug use: Never [5] Allergies Allergen Reactions Clopidogrel Hydrochlorothiazide Exfoliative Dermatitis Penicillins Sodium Chloride Sulfa (Sulfonamide Antibiotics) Unknown Vancomycin documented in this encounter Plan of Treatment DateTypeDepartmentCare Team (Latest Contact Info)Wqqlumwzzto53/20/2026 11:00 AM ESTOffice Visit [facility] [address] [place] [address] Zack Villarreal CNP [address] [place] [id number] NameTypePriorityAssociated DiagnosesOrder ScheduleTransthoracic echo (TTE) completeEchocardiographyRoutine Heart failure with mildly reduced ejection fraction (CMS/HCC) ELY (dyspnea on exertion) Expected: 02/15/2025 (Approximate), Expires: 02/15/2027documented as of this encounter Visit Diagnoses Diagnosis Heart failure with mildly reduced ejection fraction (CMS/HCC)- Primary Bilateral lower extremity edema ELY (dyspnea on exertion) Other dyspnea and respiratory abnormality Coronary artery disease involving ouzinkie coronary artery of ouzinkie heart without angina pectoris Benign hypertensive heart disease with heart failure (CMS/HCC) Mixed hyperlipidemia Stage 3a chronic kidney disease (CMS/HCC) documented in this encounter Care Teams Team MemberRelationshipSpecialtyStart DateEnd Date Nolvia Jimenez MD [address] [place] [address] PCP - GeneralNurse Practitioner06/15/24 Brien Coughlin MD [address] [place] [address] Pulmonary Disease09/05/24documented as of this encounter
--- OUTSIDE RECORDS SUMMARY | 2025-02-27 08:43 | XMS_ITS | Continuity of Care Document ---
Author Organization [facility] Address [address] [place] [address] Phone Care Team Providers Care Vp Medical Name Role Phone Nolvia Jimenez NP-C Primary Care Provider Zack Villarreal NP-C Attending Provider [phone] Nolvia Jimenez NP-C Attending Provider Lisa Perez MD Attending Provider Jackelyn Diggs MD Attending Provider [phone] Lisa Perez MD Other Provider Care Teams Patient Care Team Team Status: Active Member Role/Relationship Status Dates Nolvia Jimenez NP-C Primary Care Provider Active Visit Care Team Team Status: Active Member Role/Relationship Status Dates Nolvia Jimenez NP-C Primary Care Provider Active Start: December 07, 2024 Rex Crum ProviderActiveStart: December 07, 2024 Visit Care Team Team Status: Inactive Member Role/Relationship Status Dates Nolvia Jimenez NP-C Primary Care Provider Active Start: December 25, 2024 End: December 25, 2024Rex Webster ProviderActiveStart: December 25, 2024 End: December 25, 2024 Visit Care Team Team Status: Inactive Member Role/Relationship Status Dates Nolvia Jimenez MATZO FORMING MACHINE OPERATOR-C Primary Care Provider Active Start: December 28, 2024 End: December 28, 2024Imad Asakai MDAttending ProviderActiveStart: December 28, 2024 End: December 28, 2024 Visit Care Team Team Status: Active Member Role/Relationship Status Dates Nolvai Jimenez MATZO FORMING MACHINE OPERATOR-C Primary Care Provider Active Start: January 03, 2025 Ira Antonioending ProviderActiveStart: January 03, 2025 Visit Care Team Team Status: Inactive Member Role/Relationship Status Dates Jackelyn Diggs MD Attending Provider Active Star t: January 09, 2025 End: January 09, 2025Arthur Websterimary Care ProviderActiveStart: January 09, 2025 End: January 09, 2025 Visit Care Team Team Status: Inactive Member Role/Relationship Status Dates Nolvia Jimenez MATZO FORMING MACHINE OPERATOR-C Primary Care Provider Active Start: January 12, 2025 End: January 12, 2025Imad Asakai , MDAttending ProviderActiveStart: January 12, 2025 End: January 12, 2025 Visit Care Team Team Status: Active Member Role/Relationship Status Dates Nolvia Jimenez MATZO FORMING MACHINE OPERATOR-C Primary Care Provider Active Start: January 30, 2025 Imkai Perez MDAttending ProviderActiveStart: January 30, 2025 Lisa Perez MDOther ProviderActiveStart: January 30, 2025 Visit Care Team Team Status: Inactive Member Role/Relationship Status Dates Nolvia Jimenez MATZO FORMING MACHINE OPERATOR-C Primary Care Provider Active Start: February 20, 2025 End: February 20, 2025Imad Asakai , MDAttending ProviderActiveStart: February 20, 2025 End: February 20, 2025 Patient Care Team Team Status: Active Member Role/Relationship Status Dates Nolvia Jimenez MATZO FORMING MACHINE OPERATOR-C Primary Care Provider Active Start: February 20, 2025 Imkai Perez , MDAttending ProviderActiveStart: February 20, 2025 Lisa Perez MDOther ProviderActiveStart: February 20, 2025 Patient Care Team Team Status: Inactive Member Role/Relationship Status Dates Nolvia Jimenez NP-C Primary Care Provider Active Start: February 27, 2025 End: February 27, 2025ImaIra Chavezending ProviderActiveStart: February 27, 2025 End: February 27, 2025 Chief Complaint and Reason for Visit Chief Complaint Admit Date 6W December 25, 2024 2:32pm REF NOLVIA GALLARDORADHA NAUSEA/VOMITING/GASTRO PAIN December 28, 2024 10:37am 6 month f/u January 09, 2025 1 :17pm R11.2 January 12, 2025 1 0:37am nausea/vomitting January 30, 2025 8 :53am K74.60 February 20, 2025 12:23pm cirrhosis February 20, 2025 12:29pm f/u scope/fibroscan February 27, 2025 1 :07pm Reason for Visit Admit Date 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 December 25, 2024 2:32pm Essential hypertension December 25 025 2:32pm GERD without esophagitis December 25, 2024 2:32pm Mixed hyperlipidemia December 25 2:32pm Morbid (severe) obesity due to excess ca lories December 25, 2024 2:32pm Stage 3b chronic kidney disease Septembe 2024 2:32pm Type 2 diabetes mellitus without complic ation December 25, 2024 2:32pm Constipation December 28, 2024 10 :37am Diverticular stricture December 28, 2024 10:37am GERD without esophagitis December 28 10:37am Nausea & vomiting December 28, 2024 10 :37am Anemia January 09, 2025 1 :17pm Hyperkalemia January 09, 2025 1 :17pm Hyperparathyroidism January 09, 2025 1 :17pm Hypertensive nephropathy January 09, 2 025 1:17pm Hyperuricemia January 09, 2025 1 :17pm Hypomagnesemia January 09, 2025 1 :17pm Hyponatremia January 09, 2025 1 :17pm Stage 3b chronic kidney disease January 09, 2025 1:17pm Vitamin D deficiency January 09, 2025 1:17pm Fatty liver February 27, 2025 1 :07pm Hepatic fibrosis February 27, 2025 1 :07pm Allergies, Adverse Reactions, Alerts Allergen Type Severity Reaction Last Updated Verified Status clopidogrel Allergy Unknown hives February 27, 2025 1:15pm Yes Active hydrochlorothiazide Allergy Unknown rash Decem 2024 1:15pm Yes Active Penicillins Allergy Unknown hives February 27, 2025 1:15pm Yes Active Sulfa (Sulfonamide Antibiotics) Allergy Unknown Unknown Reaction February 27, 2025 1:15pm Yes Active vancomycin Allergy Unknown anaphylaxis February 27, 2025 1:15pm Yes Active Social History Smoking Status Status Start Date End Date Date of Observa tion Ex-smoker (finding) January 30, 2025 9:20am Observation Status Observation Response Date of Response Legal Sex Female (finding) Sex Assigned At BirthFemalebary 1955 Family History Relationship Condition Age at Onset Recorded Date/T abdirizak daughter Hypertension Unknown fatherDeceasedUnknownHypertensionUnknownmotherHeart diseaseUnknownHistory of strokeUnknownDeceasedUnknownHypertensionUnknownsisterHypertensionUnknown Problems Active Problems Problem Diagnosis/Recorded Date Onset Date Stat us Diverticular stricture December 28, 2024 10:00am Unkno wn Active Irregular heartbeat December 21, 2024 7:17am Unknow n Active Stage 3b chronic kidney disease November 13, 2023 1:45 pm Unknown Active Encounter for subsequent dee [facility] wellness visit (AWV) in Medicare patient December 21, 2024 7:15am Unknown Active CRP elevated December 21, 2024 7:14am Unknown Active 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 December 21, 2024 7:14am Unknown Active Morbid (severe) obesity due to excess calories December 21, 2024 7:18am Unknown Active Acute hypoxic respiratory failure December 21, 2024 7:12am Unknown Active Lower back pain December 21, 2024 7:17am Unknown Active Type 2 diabetes mellitus wit hout complication December 21, 2024 7:19am Unknown Active Heart failure December 21, 2024 7:17am Unknown Active Chronic respiratory failure December 21, 2024 7:13a m Unknown Active Fatty liver February 27, 2025 1:34pm Unknown Ac tive Anemia November 13, 2023 1:46pm Unknown Act julio Hyperparathyroidism July 25, 2024 12:45pm Unknown Active Hyperuricemia November 13, 2023 1:46pm Unknown Ac tive Hyponatremia November 13, 2023 1:46pm Unknown Act julio Elevated WBC count December 21, 2024 7:15am Unknown Active Mixed hyperlipidemia December 21, 2024 7:18am Unkno wn Active Other constipation December 21, 2024 7:18am Unknown Active Bug bites December 21, 2024 7:13am Unknown Active Essential hypertension December 25, 2024 6:19am Unk nown Active Former smoker December 21, 2024 7:16am Unknown Active Positive colorectal cancer s creening using Cologuard test December 21, 2024 7:19am Unknown Active Epigastric pain December 21, 2024 7:16am Unknown Active Body mass index [BMI] 35.0-35.9, adult December 21, 2024 7:12am Unknown Active GERD without esophagitis December 21, 2024 7:16am U nknown Active Hypertensive nephropathy November 13, 2023 1:46pm Unkn own Active Pneumonia December 21, 2024 7:19am Unknown Active Constipation December 28, 2024 10:00am Unknown Ac tive Vitamin D deficiency November 13, 2023 1:46pm Unknown Active Hepatic fibrosis February 27, 2025 1:35pm Unknown Active Hyperkalemia November 13, 2023 1:46pm Unknown Act julio Hypomagnesemia November 13, 2023 1:46pm Unknown A ctive Medications Medication Status Dose Units Route Directions Qty Days Refills S tart Date Stop Date End Date Reason(s) Instructions Adherence Sod Picosulf-Mag Ox-Citric Ac (Clenpiq) 10 mg-3.5 gram- 12 gram/175 mL solution Discontinued 175 ML PO Daily 350 0 0 Ju ly 2024 11:00pm November 01, 2024 9:47amtake first dose at 3:00 p.m. the day before the colonoscopy, take the second dose at 9:00 p.m. the day before the colonoscopy Pantoprazole 40 mg tablet,delayed release (DR/EC)Nqhfnr54XBNXPrdzv341Dqfvmeob 2024 2:17pmGastroesophageal reflux disease without esophagitis Gastro-esophageal reflux disease without esophagitisComplies with 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 Aosdnrdmnol-Nvmsgyzxf-Mqpxhxcv (Trelegy Ellipta) 100-62.5-25 mcg blister with idoafgHzxqxf2ITIEAJDHQBPONOijgaRjxm 2024 11:00pmComplies with 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 Oxygen[employer] deviceActive0.RouteJuly 2024 11:00pmAs directedPrasugrel Hcl 10 mg wbglfhXvemwvlprahv83ZNRUYxoumVzyyce 2023 11:00pmNov2023 1:49pmOlmesartan 40 mg slfmmtEmwvhe42JHZFEquivWqnldk 2023 11:00pmComplies with 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Furosemide 20 mg tabletDiscontinued 20MGPODailyAulovelace rehabilitation hospitalt 2023 11:00pmNov2023 1:50pmOmeprazole 20 mg capsule,delayed release(DR/EC)Ylhutapozmmb82HFMFLkorlHvrrzp 2023 11:00pm December 22, 2024 3:13pmMetoprolol Succinate 100 mg tablet extended release 24 ygXxxegmplucja642CTKIIafubUjlefh 2023 11:00pm[facility] 1:50pm Atorvastatin 80 mg qnohtjCqbvcm26OUNZHoien at bedtimeAulovelace rehabilitation hospitalt 2023 11:00pm Complies with 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Fluticasone Propion-Salmeterol (Advair Diskus) 250-50 mcg/dose blister with roalreVynizdctyyav0SOGHZQGLZAVLOAdzhx dailyPoplar [facility]2023 11:00pmApril 2024 12:41pmIpratropium-Albuterol 0.5 mg-3 mg(2.5 mg base)/3 mL solution for tfvufjhbpjbbVxxqcb6FULAGWAZPOFZDkfhn 6 hours as needed for shortness of breathAugust 2023 11:00pmComplies with 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 Isosorbide Mononitrate 30 mg tablet extended release 24 jfUdfwrphsvudd05FCPS DailyPoplar Springs Hospitalt 2023 11:00pmApril 2024 12:39pmAspirin 81 mg tablet,delayed release (DR/EC)Hvruoh55PPVTTdtfcMgpvgt 2023 11:00pmComplies with 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Magnesium Oxide 400 mg (241.3 mg magnesium) icxqvmUmmued637GA POTwice dailyPoplar Springs Hospitalt 2023 11:00pmComplies with 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Albuterol Sulfate (Ventolin Hfa) 90 mcg/actuation HFA aerosol gtrwnugDycgzf7GCMPHQOTZWKHQZ Every 4 hoursAugust 2023 11:00pmComplies with 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Prednisone 5 mg bqsiqjFulifdcevcnq2VQGXEogzQynvyx 2023 11:00pmApril 2024 12:38pm Furosemide 20 mg uzboifQbqlthrijtun25NXRKHfjdg 48 hoursNovember 2023 1:49pmSeptember 2024 3:12pmMetoprolol Succinate 100 mg tablet extended release 24 wmGpieahjnewzz39DDMQPxtdwNwrkysky 2023 1:50pmApril 2024 12:40pmPrednisone 10 mg lupecfXkttxiexsknb88BOGOIrmcxUqbkv 2024 11:00pm December 22, 2024 3:13pmDapagliflozin Propanediol (Farxiga) 10 mg tablet Jologu92EUWTUgejcXwrrr 2024 11:00pmComplies with 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Isosorbide Mononitrate 60 mg tablet extended release 24 dyZeiajt69PWOQFjrbzWjpjz 2024 11:00pmComplies with 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Metoprolol Succinate 50 mg tablet extended release 24 leJtzpnvqwwhgv76TKHGJuvsv dailyApril 2024 11:00pmOctober 2024 9:44amCyclobenzaprine 10 mg bscuoyTqrgfrnyfwri5HMPQZitol 6 hours as needed for muscle spasmApril 2024 11:00pmSeptember 2024 3:14pmDupilumab (Dupixent Syringe) 100 mg/0.67 mL kpoesrwOeanlj829LZLMMZCPQUUXD 2 WEEKSApril 2024 11:00pmComplies with 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Cholecalciferol (Vitamin D3) 50 mcg (2,000 unit) rtqsnjvVxxxxn43JNQFRDhrdpLryzb 2024 11:00pmComplies with 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Cyclobenzaprine 10 mg xjffxyRqoofn16FIUPJnewd times daily as needed for muscle spasmSeptember 2024 3:11pmComplies with 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Furosemide 40 mg kyuqfgBclxul72CHRHAuzvfXqcqpklgg 2024 11:00pmComplies with 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 Pantoprazole 40 mg tablet,delayed release (DR/EC)Cqikayphfcww05QMXZJqhgl December 21, 2024 11:00pmNov2024 2:17pmMetoprolol Tartrate 25 mg kgukddLafufd65ASZHRtvgx dailyOct2024 11:00pmComplies with 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 metamucilActivePODailyDece2024 12:00amUnknownPolyethylene Glycol 3350 (Miralax) 17 gram/dose umzbtiCndldv47OTSQ.prn as neededDece2024 12:00amComplies with 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 Procedures Procedure Date Performed Status US abdomen limited January 12, 2025 9:38am com pleted Relevant Diagnostic Tests and/or Laboratory Data Laboratory Results Test Collection Date/Time Result Date/Time Result Interpretation Reference Range Result Comment Performing Site Anion Gap December 07, 2024 12:03pm December 07 12:03pm 10.5 Bedside Hemoglobin B2bWjloerkjf2024 2:24pmSept2024 2:24pm6 % Urine Random CreatinineOctober 2024 10:32amOctober 2024 10:32am14.28 mg/dLBelow low ndsvij93.00-300.00Urine BilirubinOct2024 10:32amOctober 2024 10:32amNEGATIVENEGATIVEParathyroid Hormone (Intact)January 03, 2025 10:44amOctober 2024 10:44am79 pg/mLAbnormal (applies to non-numeric results)15-65Performed at: - [facility] [address] [id number] Director: True Herron PhD, Phone: [phone] 2024 10:44amOctober 2024 10:44am36.3 %36.0-48.0Magnesium LevelOctober 2024 10:44amOctober 2024 10:44am2.0 mg/dL1.8-2.4Uric AcidOctober 2024 10:44amOctober 2024 10:44am7.1 mg/dLAbove high normal2.6-6.0Anion Gap January 03, 2025 10:44amOctober 2024 10:44am15.2Iron SaturationJanuary 03, 2025 10:44amOctober 2024 10:44am12.7 %25-Hydroxy Vitamin D Total January 03, 2025 10:44amOctober 2024 10:44am62.4 ng/mL<20 ng/mL Vit D plmfsllah49-<30 ng/mL Vit D goqvlwaafnkb04-187 ng/mL Vit D sufficient>100 ng/mL Potential ToxicityFerritinOct2024 10:44amOctober 2024 10:44am29.0 ng/mL8.0-252.0BUN/Creatinine RatioSept2024 12:03pmSeptember 2024 12:03pm16.0Urine Random Total ProteinOct2024 10:32amOct2024 10:32am<6.0 mg/dL<=11.9Urine Occult BloodOct2024 10:32amOct2024 10:32amNEGATIVENEGATIVEHemoglobinOct2024 10:44amOct2024 10:44am11.7 g/dLBelow low yupeib97.0-16.0AlbuminJanuary 03, 2025 10:44am January 03, 2025 10:44am3.4 g/dL3.4-5.0Iron LevelJanuary 03, 2025 10:44am January 03, 2025 10:44am48.0 ug/dLBelow low .0-170.0Blood Urea Nitrogen December 07, 2024 12:03pmSeptember 2024 12:03pm26.0 mg/dLAbove high normal7.0-18.0Urine AppearanceOct2024 10:32amOctober 2024 10:32am CLEARCLEARMean Corpuscular HemoglobinOct2024 10:44amOctober 2024 10:44am29.2 pg26.7-34.0BUN/Creatinine RatioOct2024 10:44amOctober 2024 10:44am13.6Total Iron Binding CapacityOctober 2024 10:44amOctober 2024 10:61fe069.0 ug/dL250.0-450.0Calcium LevelSeptember 2024 12:03pm December 07, 2024 12:03pm8.6 mg/dL8.5-10.1Urine ColorOctober 2024 10:32amOctober 2024 10:32amLT. YELLOWYELLOWMean Corpuscular Hemoglobin ConcentOctober 2024 10:44amOctober 2024 10:44am32.2 g/dL29.9-35.2Blood Urea NitrogenOctober 2024 10:44amOctober 2024 10:44am25.0 mg/dLAbove high normal7.0-18.0Chloride LevelSeptember 2024 12:03pmSeptember 2024 12:92vc182 mmol/V35-762Ncfau Glucose (UA)January 03, 2025 10:32amOctober 2024 10:98ek238 mg/dLAbnormal (applies to non-numeric results)NEGATIVEMean Corpuscular VolumeOctober 2024 10:44amOctober 2024 10:44am90.5 fL 81.0-99.0Calcium LevelOctober 2024 10:44amOctober 2024 10:44am8.9 mg/dL8.5-10.1Carbon Dioxide LevelSeptember 2024 12:03pmSeptember 2024 12:03pm29.0 mmol/L21.0-32.0Urine KetonesOctober 2024 10:32amOctober 2024 10:32amNEGATIVE mg/dLNEGATIVEMean Platelet VolumeOctober 2024 10:44amOctober 2024 10:44am9.9 fL9.5-13.5Chloride LevelOctober 2024 10:44amOctober 2024 10:44am98 mmol/N39-736ZzoujxahwjUnnhvwqbm 2024 12:03pmSeptember 2024 12:03pm1.62 mg/dLAbove high normal0.55-1.02Urine Leukocyte EsteraseOctober 2024 10:32amOctober 2024 10:32amNEGATIVE NEGATIVEPlatelet CountOct2024 10:44amOctober 2024 10:69mg255 10 3/vX646-874Fyudbc Dioxide LevelOctober 2024 10:44amOctober 2024 10:44am26.9 mmol/L21.0-32.0Estimated GFR ()December 07, 2024 12:03pmSept2024 12:24yc42Khocb low normal>=60 mL/min/1.73m 2Urine NitriteOctober 2024 10:32amOctober 2024 10:32amNEGATIVENEGATIVERed Blood CountOct2024 10:44amOctober 2024 10:44am4.01 10 6/uLBelow low normal4.20-5.40CreatinineOct2024 10:44amOctober 2024 10:44am 1.84 mg/dLAbove high normal0.55-1.02Estimated GFR (Non- AmericanSept2024 12:03pmSeptember 2024 12:26ig74Nyowi low normal>=60 mL/min/1.73m 2Urine pHOct2024 10:32amOct2024 10:32am6.5 5.0-9.0Red Cell Distribution WidthJanuary 03, 2025 10:44amOct2024 10:44am14.3 %11.0-15.0Estimated GFR ()January 03, 2025 10:44am January 03, 2025 10:58fj86Bnnzv low normal>=60 mL/min/1.73m 2Glucose Level December 07, 2024 12:03pmSeptember 2024 12:42bw837 mg/mT41-360Oioqm ProteinOctober 2024 10:32amOctober 2024 10:32amNEGATIVE mg/dLNEG/TRACE Corrected White Blood CountOctober 2024 10:44amOctober 2024 10:44am7.3 10 3/uL4.0-11.0Estimated GFR (Non- AmericanOctober 2024 10:44am January 03, 2025 10:76mh60Mracx low normal>=60 mL/min/1.73m 2Potassium Level December 07, 2024 12:03pmSept2024 12:03pm4.5 mmol/L3.5-5.1Urine Specific GravityOctober 2024 10:32amOctober 2024 10:32am1.010 1.005-1.025Glucose LevelOctober 2024 10:44amOctober 2024 10:44am67 mg/dLBelow low zdevci86-310Seffwx LevelSept2024 12:03pmSept2024 12:14vk946 mmol/U627-253Cauol UrobilinogenOctober 2024 10:32am January 03, 2025 10:32am0.2 EU/dL0.2-1.0Potassium LevelOctober 2024 10:44amOctober 2024 10:44am4.1 mmol/L3.5-5.1Sodium LevelOctober 2024 10:44amOctober 2024 10:72bt920 mmol/D338-650Atbtfjdtck LevelOctober 2024 10:44amOctober 2024 10:44am4.4 mg/dL2.6-4.7FerritinNov2024 12:54pmNov2024 4:55pm17.3 ng/mL11.0-306.8[facility] [id number] [address] [place] [address]Gxkiribyj A IgM AntibodyNov2024 12:54pmNovember 2024 4:07amNegativeNegativeA negative anti-HAV IgM result suggests no recent orcurrent HAV infection.[facility] B Core IgM AntibodyNovember 2024 12:54pmNovember 2024 4:07amNegativeNegative Performed at: [place] [id number] Director: True Herron PhD, Phone: [phone] Mitochondria M2 AntibodyNovember 2024 12:54pmNovember 2024 4:09pm <20.0 Units0.0-20.0Negative 0.0 - 20.0 Equivocal 20.1 - 24.9 Positive >24.9Mitochondrial (M2) Antibodies are found in 90-96% ofpatients with primary biliary cirrhosis.Performed at: [facility] [place] [id number] [place], [place] [id number] Director: True Herron PhD, Phone: [phone] 25th, 2025 12:54pmDecember 2024 12:26pj577 mg/uW492-426NcvPuoh GNovember 2024 12:54pmNovember 2024 7:39wb4261 mg/uL363-4922Gararwahh at: [email or web address] [place] [address] [place], [place] [id number] Director: True Herron PhD, Phone: [phone] Muscle AntibodyNov2024 12:54pmNovember 2024 4:09pm15 Units0-19Negative 0 - 19 Weak positive 20 - 30 Moderate to strong positive >30 Actin Antibodies are foundin 52-85% of patients with autoimmune hepatitis or chronic active hepatitis and in 22% of patients with primary biliary cirrhosis.[facility] A Antibody TotalNov2024 12:54pmNovember 2024 4:07amNegative NegativeComment: The HAV total antibody assay detects both IgG andIgM but does not differentiate between them. A negativeresult suggests susceptibility to infection. A positiveresult could be due to vaccination, previously resolvedinfection or active infection. Testing for HAV IgM shouldbe performed if active HAV infection is suspected. [facility]corpoffers profiles that will automatically reflex positive HAVtotal antibody results to IgM (e.g., panel #[id number] HAVAntibody w/ Rfx).[facility] B Surface Antibody February 20, 2025 12:54pmNov2024 4:07amNon reactive.Non Reactive: Not immune to HBV infection. Anti-HBs undetectable or less than 10 mIU/mL. Reactive: Evidence of HBV immunity. Anti-HBs levels greater than 10 mIU/mL. [facility] B Core Total AntibodyFebruary 20, 2025 12:54pm February 21, 2025 4:07amNegativeNegativeLabCo February 20, 2025 12:54pmNov2024 7:36am30.3 mg/dL19.0-39.0 Performed at: [email or web address] [address] [id number] Director: True Herron PhD, Phone: [phone] Djskf-0-Rffcebfpddv PhenotypeNov2024 12:54pmDecember 2024 12:36pmMm. MM Phenotype is considered to be normal , producingnormal serum levels of sdvnp-6-bssxmfob inhibitor andnot associated with clinical disease. Associated D5Glmqkn serum levels in other phenotypes and theirincidence in the general population are shown in thetable below.Phenotype Population % function A-1-AT Conc.* Incidence % compared to MM (Typical Range) MM 86.5% 100% (96 - 189) MS 8.0% 86% (83 - 161) MZ 3.9% 61% (60 - 111) FM 0.4% 100% (93 - 191) SZ 0.3% 41% (42 - 75) SS 0.1% 64% (62 - 119)ZZ 0.05% 19% (16 - 38) FS 0.05% 70% (70 - 128) FZ Unknown 46% (44 - 88) FF Unknown Unknown*A-1-AT concentration in the homozygous MM phenotype is taken as the reference normal. Percent deficiency ineach phenotype is reported relative to this reference. Ranges used to confirm phenotype.Performed at: [email or web address] [address] [place] [id number] Director: True Herron PhD, Phone: [phone] at: [address] [id number] Director: Butch Wright MD, Phone: [phone] /Kidney Microsomal TiterNov2024 12:54pmNov2024 3:08pm<1.0 Units 0.0-20.0Negative 0.0 - 20.0 Equivocal 20.1 - 24.9 Positive >24.9LKM type 1 antibodies are detected in patients withautoimmune hepatitis type 2 and in up to 8% ofpatients with chronic HCV infection.Performed at: [address] [id number] Director: True Herron PhD, Phone: [phone] B Surface AntigenNov2024 12:54pmNov2024 4:07amNegativeNegativeLabCo C Antibody (EIA)February 20, 2025 12:54pmNov2024 4:07amNon reactiveNon ReactiveLabCorp Antibody ScreenNov2024 12:54pmDecemb2024 9:07amPositiveAbnormal (applies to non- numeric results).Negative <1:80 Borderline 1:80 Positive >1:80[facility] Ab Homogeneous PatternNov2024 12:54pm February 21, 2025 12:55pmN/ALabCorp Ab Speckled PatternNov2024 12:54pmDecemb2024 9:07am1:640Above high normal.ICAP nomenclature: AC-2,4,5,29[facility] Antibody Comment 2Nove2024 12:54pmDecemb2024 9:07amComment.Pattern Potential Disease Association Homogeneous Systemic Lupus Erythematosus, Drug Induced Systemic Lupus Erythematosus, Chronic Autoimmune hepatitis, Juvenile Idiopathic Arthritis Speckled Sjogren Syndrome, Systemic Lupus Erythematosus, Subacute Cutaneous Lupus, Lupus, Congenital Heart Block, Mixed Connective Tissue Disease, Scleroderma-diffuse, Scleroderma-AutoimmuneMyositis Overlap Syndrome, Systemic Lupus Zxulksmnorwye-Rlqctkwrdvx-Zankjqhzav Myositis Overlap Syndrome, Systemic Autoimmune Rheumatic Disease, Undifferentiated Connective Tissue Disease Nucleolar Systemic Sclerosis, Scleroderma-AutoimmuneMyositis Overlap Syndrome, Sjogren Syndrome, Raynaud phenomenon, Pulmonary Arterial Hypertension, Systemic Autoimmune Rheumatic Disease, Cancer Centromere Scleroderma-CREST, Limited Cutaneous SSc, Raynaud's Phenomenon, Primary Biliary Cholang itis Nuclear Dot Primary Biliary Cholangitis Nuclear Primary Biliary Cholangitis, AutoimmuneMembrane Hepatitis/Liver disease, Systemic Autoimmune Rheumatic Disease, Autoimmune Cytopenias, Linear Scleroderma, Antiphospholipid Syndrome Performed at: [employer] [address] [place], [place] [id number] Director: True Herron PhD, Phone: [phone] Transglutaminase IgA AbNoveer 2024 12:54pmNovember 2024 1:08pm<2 U/mL0-3Negative 0 - 3 Weak Positive 4 - 10 Positive >10 Tissue Transglutaminase (tTG) has been identified as the endomysial antigen. Studies have demonstr- ated that endomysial IgA antibodies have over 99% specificity for gluten sensitive enteropathy.[facility] Transglutaminase IgG AbNoveencompass health rehabilitation [facility] 2024 12:54pmNovember 2024 1:08pm<2 U/mL0-5Negative 0 - 5 Weak Positive 6 - 9 Positive >9Performed at: [facility] [id number] [place], [place] [id number] Director: True Herron PhD, Phone: [phone] Genetic ScreenNov2024 12:54pmDeceer 2024 2:08pmComment.Result:c.845G>A (p.Caj324Vdj) - Not Detectedc.187C>G (p.Jhf44Chd) - Not Detectedc.193A>T (p.Jyq17Rwg) - Not DetectedNot associated with increased risk to develop clinicalsymptoms of Hereditary Hemochromatosis. In symptomaticindividuals, other causes of iron overload should beevaluated. See Additional Information and Comments.Additional Clinical Information:Hereditary hemochromatosis (HFErelated) is an autosomalrecessive iron storage disorder. Patients may have agenetic diagnosis of hereditary hemochromatosis and nevershow clinical symptoms. Clinical symptoms typically appearbetween 40 to 60 years in males and after menopause infemales. Signs and symptoms may include organ damage,primarily in the liver, risk for hepatocellularcarcinoma, diabetes, and heart disease due to ironaccumulation. Life expectancy may be decreased inindividuals who develop cirrhosis. Treatment forclinically symptomatic individuals may includetherapeutic phlebotomy. Liver transplant may be used totreat end stage liver failure. For preventive care,monitoring for iron overload is recommended for patientswho are homozygous for c.845G>A (p.Ien272Hxm) and have yetto experience clinical symptoms.Comments:The most common HFE variants associated with hereditaryhemochromatosis are c.845G>A (p.Uef432Paq), c.187C>G(p.Lsn99Cbd), c.193A>T (p.Ved63Kgr). While patientshomozygous for c.845G>A (p.Bzw338Gsg) are the most likelyto present clinical symptoms, less than 10% developclinically significant iron overload with tissue and organdamage.Genetic counseling is recommended to discuss the potentialclinical implications of positive results, as well asrecommendations for testing family members.Genetic Coordinators are available for health careproviders to discuss results at [phone] ([phone]).Test Details:Three variants analyzed:c.845G>A (p.Myy313Mbg), commonly referred to as C282Yc.187C>G (p.Fbl58Ofp), commonly referred to as H63Dc.193A>T (p.Qqh86Ifo), commonly referred to vdU15CKasoadu/Limitations:DNA Analysis of the HFE gene (NM_000410.4) was performedby PCR amplification followed by restriction enzymedigestion analyses. Results must be combined with clinicalinformation for the most accurate interpretation. Molecular-based testing is highly accurate, but as in any laboratorytest, diagnostic errors may occur. False positive or falsenegative results may occur for reasons that include geneticvariants, blood transfusions, bone marrow transplantation,somatic or tissue-specific mosaicism, mislabeled samples,or erroneous representation of family relationships.This test was developed and its performancecharacteristics determined by [employer]. It has not beencleared or approved by the Food and Drug Administration.References:Yamil BR, Kenneth PC, Graciela KV, Yusuf LW, Vipin ;[employer] Association for the Study of Liver Diseases.Diagnosis and management of hemochromatosis: 2011 practiceguideline by the [place] Association for the Study ofLiver Diseases. Hepatology. 2010;54(1):328-43. doi:10.1002/hep.19048. PMID: 16504317; PMCID: GEP1415523.Clair G, Karin P, Andre UMANZOR, Yudelka H, Erlinda O,Valerio S, Shilo I, Brian M, Kenny S. QN best practiceguidelines for the molecular genetic diagnosis ofhereditary hemochromatosis (HH). Eur J Hum Katherine. 2016Ap r;24(4):479-95. doi: 10.1038/ejhg.2015.128. Epub 2014. PMID: 89331835; PMCID: UOD4792948.[facility] NoteNov2024 12:54pmDecember 2024 2:08pmComment.Technical Component performed at [facility] RTPProfessional Component performed by:Micheal Granger, PhD, FACMGWSTGD6, [facility], [address] Clinical Research [facility] [address]Rfcxpotte at: - [facility] [id number], [place], [place] [id number] Director: Toshia Mcgarry [facility], Phone: [phone] C InterpretationFebruary 20, 2025 12:54pmNov2024 4:07amComment.Not infected with HCV unless early or acute infection issuspected (which may be delayed in an immuno compromisedindividual), or other evidence exists to indicate HCVinfection. [facility] QualitativeNov2024 12:54pm February 24, 2025 6:08pmNegative.LabThe [facility] QuantitativeNov2024 12:54pmNov2024 6:08pmNegative ng/mL. Analyzed compound: PEth 16:0/18:1. 6-jwkrrtrsd-2-xqaypf-xh-qgcphjg-3-phosphoethanol.Analysis performed by Liquid Chromatography withTandem Mass Spectrometry (LC/MS/MS).Detection limit: 20 ng/mLPEth levels in excess of 20 ng/mL are considered evidenceof moderate to heavy ethanol consumption. However,the Center for Substance Abuse Treatment (CSAT) advisescaution in interpretation and use of biomarkers aloneto assess alcohol use. Results should be interpretedin the context of all available clinical and behavioralinformation.Reference: Substance Abuse and Mental Health Services Administration (2012). The Role of Biomarkers in the Treatment of Alcohol Use Disorders , 2012 Revision. Advisory, Volume 11, Issue 2.This test was developed and its performance characteristicsdetermined by [employer]. It has not been cleared or approvedby the Food and Drug Administration.Performed at: [facility] [address] [id number] Director: Adele Eng [facility], Phone: [phone] Diagnostic Imaging Reports Author Carson De Souza [facility] HospitalAuthoredOctlexington shriners hospital 2024 11:42amReport Dictated Date/TimeDictated ByStatusRadiology ReportOctober 2024 11:42am Carson De Souza Jr DOcompTuscarawas Hospital [facility] [place] [address] [place] [address] Ultrasound Report Signed Patient: Susana Juares MR#: [id number] : 1955 Acct:[id number] Age/Sex: 69 / F ADM Date: 5 Loc: Room: Type: [facility] Attending Dr: Lisa Perez MD Ordering Provider: Lisa Perez MD Date of Service: 01/12/25 US/US abdomen limited: R11.2 - Nausea with vomiting, unspecified Copies to: Lisa Perez MD~ LIMITED ABDOMINAL ULTRASOUND: CLINICAL HISTORY: Nausea and vomiting. COMPARISON: None TECHNIQUE: Grayscale and color Doppler images of the right upper quadrant organs were obtained. FINDINGS: Pancreas: Not visualized. Liver: No focal mass or intrahepatic ductal dilatation. Cirrhotic appearing. Gallbladder: Removed. CBD: 6.2 mm. RT KIDNEY: No Hydronephrosis US/US abdomen limited IMPRESSION: CIRRHOTIC APPEARING LIVER WITHOUT MASS. NO ACUTE PROCESS.. Impression dictated by: Carson De Souza Jr., D.OLissett 01/12/2025 11:43 AM Dictation Location: [place] [address] Tech: Jessi Leon Transcribed By: PAWAN 01/12/25 1143 Dictated By: Carson De Souza Jr, DO 01/12/25 1142 Signed By: <Electronically signed by Carson De Souza Jr, DO in OV> 01/12/25 1143 Vital Signs Vital Reading Result Reference Range Collection Date/Time Height 62 [in_i] December 25, 2024 2:71tcStnaey60.47 kgSept2024 2:13pmBody Pohmweoroem47.2 [degF]97.6-99.0September 2024 2:13pmHeart Rate93 /min 60-100Sept2024 2:13pmRespiratory rate22 /qjy35-88Sgrfnlnye 29th, 2025 2:13pmOxygen saturation by Pulse boipavdw06 %95-100Sept2024 2:13pmBP Zdfkpwxy07 mm[Hg]100-140Sept2024 2:13pmBP Hfvkpremp50 mm[Hg]60-100September 2024 2:13pmBMI (Body Mass Index)36.1 kg/a7Wwjiwxkqx 2024 2:04bjOroxrg07 [in_i]December 28, 2024 9:01qcFfcvkd90.35 kgOctober 2024 9:42amHeart Rate77 /dhv08-882Jkutrop 2024 9:42amBP Wqzvkmsa20 mm[Hg]100-140October 2024 9:42amBP Vnrvgqvzb21 mm[Hg]60-100October 2024 9:42amBMI (Body Mass Index)36.0 kg/o4Izpniaf2024 9:89enZvcgjo71 [in_i]January 09, 2025 12:54xvHytbzu80.69 kgOctober 2024 12:18pmHeart Rate51 /zqk97-921Irsptac 2024 12:18pmRespiratory rate18 /mvu79-10Hxiqsig 2024 12:18pmOxygen saturation by Pulse %95-100October 2024 12:18pmBP Nzisijst54 mm[Hg]100-140October 2024 12:31pmBP Psjgwqkaa86 mm[Hg]60-100October 2024 12:31pmBMI (Body Mass Index)34.9 kg/c0Jsizame 2024 12:91emGzllxe67 [in_i]January 30, 2025 9:97kdJtyrkt99.45 kgNovember 2024 9:18amHeart Rate82 /spw78-843Jjujpzme 2024 11:07amRespiratory rate16 /iqp98-86Lopaxxlz 2024 11:07amOxygen saturation by Pulse %95-100November 2024 11:07amBP Upliqdeu137 mm[Hg]100-140November 2024 11:07amBP Pvooycics84 mm[Hg]60-100November 2024 11:00ttJnzkal75 [in_i] February 27, 2025 1:07udVasaok86.45 kgDecember 2024 1:13pmHeart Rate77 /jur15-497Gbjnytav 2024 1:13pmBP Vejqqwau461 mm[Hg]100-140December 2024 1:13pmBP Yagfekypm00 mm[Hg]60-100December 2024 1:13pmBMI (Body Mass Index)34.5 kg/e9Pwiytcuv 2024 1:13pm Advance Directives Advance Directive Response Recorded Date/ Time Advance Directives No November 16, 2023 8:54am Insurance Providers Guarantor Susana Juares Address [address] [facility] [facility] [address] [place] [phone] Info.Home Phone: Coverage Status Update:2025 Payer Group Member ID Coverage Type Subscriber Relationship to Subscriber Effective Date Expiration Date Alexx PANCHAL PFFS Id: [id number] A Hooper Id: [id number] [address] [place] [phone] Home Phone: Email: [email or web address] Encounters Encounter Location(s) Arrival/Admit Date Discharge/Departure Date Discharge/Departure Disposition Provider(s) Non-patient / Non-visit -[facility] Profession[facility] l [facility] December 07, 2024 1:03pm Zack Villarreal NP-CDeparted Physician/Provider Office Visit-[facility]pmSept[facility] 2024 3:38pmDischarged to home care or self care (routine discharge)Nolvia Jimenez NP-CDeparted Physician/Provider Office Visit-[facility] 2024 10:37am December 28, 2024 11:05amDischarged to home care or self care (routine discharge)Mayo Espinoza-patient / Sah-exlzu-[facility]xP[facility] January 03, 2025 11:32amATONY Jewelleparted Physician/Provider Office Visit-[facility] Nephrology [facility] 2024 1:17pmOctlexington [facility] 2024 1:41pm Discharged to home care or self care (routine discharge)Jackelyn Diggs MD Departed Clinical-Ultrasound [facility] 2024 10:37amOctlexington shriners hospital 2024 10:38amDischarged to home care or self care (routine discharge)Mayo Espinoza-patient / Dpv-fuutu-YscbptdhmSaint [facility] Medical [facility] 2024 8:53amImaAlexsandra Chavezarted Clinical-Lab [facility]2024 12:23pmFebruary 20, 2025 12:24pmDischarged to home care or self care (routine discharge)Mayo Espinoza-patient / Xwd-ortbd-DrgljmeuwSaint Francis Medical Center 2024 12:29pmAlexsandra Espinozaarted Physician/Provider Office Visit-[facility] 2024 1:07pmDecobre [facility] 2024 1:42pmDischarged to home care or self care (routine discharge)Lisa Perez MD Recent Diagnosis Onset Date Admit Date 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 Unknown [...] Nausea & vomiting Unknown December 28 10:37am Anemia Unknown January 09 1:17pm Hyperkalemia Unknown January 09 1:17pm Hyperparathyroidism Unknown December 1:17pm Hypertensive nephropathy Unknown January 09, 2025 1:17pm Hyperuricemia Unknown January 09 1:17pm Hypomagnesemia Unknown January 09 1:17pm Hyponatremia Unknown January 09 1:17pm Stage 3b chronic kidney disease Unknown January 09, 2025 1:17pm Vitamin D deficiency Unknown December 1:17pm Fatty liver Unknown February 27 1:07pm Hepatic fibrosis Unknown February 27, 025 1:07pm Assessments Author Lisa [facility] 2024 10:46pq10-uysd-djr female referred to GI clinic for evaluation [...] arrange for ultrasound of the upper abdomen. Author kai [facility] 2024 1:49qj71-elym-cex female referred to GI clinic for evaluation of recurrent nausea and vomiting. Colonoscopy on 11/01/2024 showed colonic polyps diverticulosis diverticular stricture (which could not be passed using colonoscope so gastroscope was used to perform the procedure), internal hemorrhoids. + Recurrent nausea and vomiting + Persistent constipation despite taking Metamucil daily and MiraLAX twice a day US on 01/12/25 showed CIRRHOTIC APPEARING LIVER WITHOUT MASS. EGD on 01/30/25 showed hiatal hernia and gastritis, gastric biopsies were negative for H. pylori, duodenal biopsies were negative for celiac. MATHEW is positive otherwise laboratory workup for infectious autoimmune or metabolic etiologies of liver diseases were unremarkable Fibroscan on 02/20/25 showed LSM 9.9 consistent with fibrosis stage F2 and CAP 238 consistent with steatosis grade S1. - Patient was recommended to avoid dehydration, increase MiraLAX to 3 times daily and titrate up if needed for a goal of 1 bowel movement a day. -Will arrange for gastric emptying study for further evaluation of recurrent nausea and vomiting. -Patient has obesity, DM and hypertension which are risk factors FibroScan and ultrasound results are discordant. Will arrange for liver biopsy to confirm staging. Plan of Treatment Author Jackelyn Diggs [facility] HospitalAuthoredOctober 2024 12:37pmLikely from hypertensive nephropathy and h/o NSAID use and long history of smoking with possible arterionephrosclerosis. Kidney function fluctuates from variation in volume status. Patient is currently on Lasix 40 mg PO daily . UA is benign. mild proteinuria. Blood pressure and volume status are well controlled.Patient already on ARB.Patient is also on SGLT-s inhibitor which is renal protecting medication. Will continue same Lasix dose I asked the patient to avoid NSAIDs completely.I will follow-up with the patient in 4-6 months He is on lasix, olmesartan, isosorbide mononitrate, and metoprolol. Will continue same doses including lasix. I asked patient to follow low-salt diet and to monitor blood pressure at home. Potassium level normalized with stopping potassium supplement. I will continue to monitor potassium level. 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 Sodium level is 136 mmol/l. Will continue same dose of Lasix and same fluid restriction 1500 cc daily. Avoid thiazide diuretics. I will recheck sodium level next visit. Continue magnesium supplement BID. Magnesium is within normal limit. Uric acid is 7.1 this visit.Advised the patient to follow low animal diet. No gout attack.No need for allopurinol. I will recheck uric acid next visit. Hemoglobin is 11.7. Iron Sat dropped to 12% No need for ELLEN. Continue VD supplement.25 OH VD is WNL PTH is slightly elevated at 79. No need for active VD Author Nolvia Jimenez [facility] HospitalAuthoredSeptember 2024 2:43pmPlease check blood pressure daily and record DASH diet Limit caffeine Take medication as directed Contact office if chest pain, pressures, dizziness, shortness of breath, swelling in the legs Recommend slow position changes if you develop dizziness with position changes current meds: b shyam, arb on asa, statin, b shyam, imdur follows with [facility] cardiology I have advised that she [...] Tests Test Name Ordered Date Scheduled Date Renal Function Panel January 09, 2025 12:28pm 4 Months Future Visits Future appointment information is unavailable Future Procedures Procedure Name Ordered Date Scheduled Date Discharge Order January 30, 2025 10:36am Novem tamar 2024 10:36am Hemogram CBC Without Diff January 09, 2025 12: 28pm 4 Months Iron and TIBC Profile January 09, 2025 12:28pm 4 Months Ferritin January 09, 2025 12:28pm 4 Mon ths Magnesium January 09, 2025 12:28pm 4 Mon ths Protein Creat Ratio Ur Random January 09, 2025 12:28pm 4 Months Parathyroid Hormone Intact January 09, 2025 12 :28pm 4 Months Urinalysis January 09, 2025 12:28pm 4 Mon ths Uric Acid January 09, 2025 12:28pm 4 Mon ths Vit. B12/Folate Profile January 09, 2025 12:28 pm 4 Months Vitamin D 25 Hydroxy Total January 09, 2025 12 :28pm 4 Months NM gastric emptying study February 27, 2025 1:3 2pm US needle biopsyDecember 2024 1:38pm Future Medications Future medication information is unavailable Patient Instructions Instruction Admit Date Gastritis Hiatal hernia - Discharge instructions Know your [facility] 2024 8:53am
--- OUTSIDE RECORDS SUMMARY | 2025-02-28 12:52 | XMS_ITS | Clinical Summary ---
Author Organization [facility] Address [id number] [address] [place] [address] Care Team Providers Care Special Shopper Name Role Phone Unavailable Primary Care Provider Unavailabl e Allergies Active AllergyReactionsCriticalityNoted DateCommentsHydrochlorothiazide 12/28/2016 Exfoliative Dermatitis Lsqkjapgdma63/02/1785Psfoqqpkbnf15/02/9341Huvwjrcpxu48/02/2017 Medications MedicationSigDispense QuantityRefillsLast FilledStart DateEnd DateStatus aspirin 81 mg TAKE 1 TABLET DAILY.12/07/2011ctive magnesium 200 mg tablet Take by mouth daily.Active nitroglycerin (NITROSTAT) 0.4 MG SL tablet 1 under the tongue as needed for angina, may repeat q5mins for up three doses 25 tablet Active mometasone-formoterol (DULERA) 200-5 mcg/actuation inhaler Inhale 2 puffs 2 (two) times a day. INHALE 2 PUFFS TWICE DAILY DIRECTED. 13 g Active VENTOLIN HFA 90 mcg/actuation inhaler Inhale 2 puffs 4 (four) times a day. 18 g Active ipratropium-albuteroL (DUO-NEB) 0.5 mg-3 mg(2.5 mg base)/3 mL nebulizer Indications:Chronic obstructive pulmonary disease, unspecified COPD type ([facility])INHALE THE CONTENTS OF 1 VIAL THROUGH NEBULIZER FOUR TIMES DAILY NEEDED 1080 mL Active atorvastatin (LIPITOR) 80 mg tablet Indications:Mixed hyperlipidemiaTake 1 tablet (80 mg total) by mouth once daily at bedtime. 90 tablet Active furosemide (LASIX) 40 mg tablet Indications:Edema, unspecified typeTake 1 tablet daily as needed for swelling 90 tablet Active metoprolol tartrate (LOPRESSOR) 50 mg tablet Indications:Coronary artery disease involving [place] coronary artery of [place] heart without angina pectoris,Essential hypertensionTake 1 tablet (50 mg total) by mouth 2 (two) times a day. 180 tablet Active cyclobenzaprine (FLEXERIL) 10 mg tablet Indications:Chronic right-sided low back pain with right-sided sciaticaTake 1 tablet (10 mg total) by mouth every 8 (eight) hours as needed for muscle spasms. 90 tablet Active olmesartan (BENICAR) 40 mg tablet Indications:Essential hypertensionTake 1 tablet (40 mg total) by mouth daily. 90 tablet Active omeprazole (PriLOSEC) 20 mg capsule Indications:Chronic GERDTake 1 capsule (20 mg total) by mouth 2 (two) times a day. 180 capsule Active potassium chloride 20 mEq tablet extended release Indications:Diuretic-induced hypokalemiaTake 1 tablet on the days that you take Furosemide (Lasix) 90 tablet Active Active Problems ProblemNoted DateDiagnosed DateFormer muhilz2101/22/2020Health care maintenance 01/22/2020Diuretic-induced zcowdhkmrca26/21/2018History of acute inferior wall MI01/13/2018Bladder prolapse, female, rqbvbrzu32/02/2017Coronary artery disease involving [place] coronary artery of [place] heart without angina pectoris 12/28/2016COPD (chronic obstructive pulmonary disease)12/28/2016 Overview (01/12/2018): Managed by Dr. White. Chronic GERD12/28/2016Lower back pain12/28/2016Severe obesity (BMI 35.0-39.9) with dxftjxnimbw45/02/2017Shortness of gkbsna1312/28/2016Essential hypertension 12/14/2016Mixed oscebbltzlciai86/18/2017 Resolved Problems ProblemNoted DateDiagnosed DateResolved DateCurrent every day zxedgr9512/28/2016 01/05/2017 Overview (12/28/2016): Smokes 1 PPD Uzihdj16Need for hepatitis C screening test12/28/2016 01/05/2017 Overview (12/28/2016): Screening Done: 07/18/2015 Pain in right hip Immunizations ImmunizationAdministration DatesNext DueInfluenza (IM) Preservative Free 07/16/2014(Deferred: Other - DEFERRED) Family History Medical HistoryRelationNameCommentsKidney failureFatherFather passed at age 76 Heart failureMotherStrokeMotherMother passed at age 76CancerPaternal Grandmother Bladder CancerAlcohol abuseSisterCOPDSisterRelationNameStatusCommentsFather DeceasedMotherDeceasedPaternal GrandmotherSister Social History Tobacco UseTypesPacks/DayYears UsedDateSmoking Tobacco: XempzuXetcragtsw452 11/10/1966 - 11/10/2016Smokeless Tobacco: Never Tobacco Cessation:Counseling Given: Yes Alcohol UseStandard Drinks/WeekCommentsYes0 (1 standard drink = 0.6 oz pure alcohol)RarelySocial Connection and Isolation PanelAnswerDate RecordedFrequency of Communication with Friends and FamilyMore than three times a week01/14/2019 Frequency of Social Gatherings with Friends and FamilyTwice a week01/14/2019 Attends Alevism WbfkiyvaQdgph65/19/2019Active Member of Clubs or Organizations No01/14/2019Attends Club or Organization VkodgrotBncjh64/19/2019Marital Status Mybehvk7101/14/2019AUDIT-CAnswerDate RecordedFrequency of Alcohol Consumption Monthly or less01/14/2019Average Number of Drinks1 or Frequency of Binge VmjfmfxlDpqmh08/19/2019Overall Financial Resource Strain (CARDIA)Answer Date RecordedDifficulty of Paying Living ExpensesNot very hard01/14/2019PHQ-2 AnswerDate RecordedTotal Gqdco800Finintermountain medical center [place] of Occupational Health - Occupational Stress QuestionnaireAnswerDate RecordedFeeling of Stress Only a odrgtu6601/14/2019Exercise Vital SignAnswerDate RecordedDays of Exercise per Week5 days01/14/2019Minutes of Exercise per Lkxinbj42 min01/14/2019PRAPARE - TransportationAnswerDate RecordedLack of Transportation (Medical)No01/14/2019 Lack of Transportation (Non-Medical)No01/14/2019ChildcareAnswerDate Recorded GvcfzqzneCn67/19/2019EmploymentAnswerDate JyywgpqjBuxkbwiccxVh31/19/2019Purpose - LifeAnswerDate RecordedPurpose and direction in ujyoWltcpsu70/10/2021Education AnswerDate RecordedWhat is the highest level of school you have completed or the highest degree you have received?12th grade01/14/2019CommentsUnknownSex and Gender InformationValueDate RecordedSex Assigned at PtjvdMmpvfy04/18/2019 4:53 PM EDTLegal TwoPzqwtm77/04/2015 4:56 PM EDTGender JjsnzvvhCzhkyp63/18/2019 4:53 PM EDTSexual XaggznikllqKuycqwpn16/18/2019 4:53 PM EDTOccupationIndustryJob Start DateJob End DateretiredNot on fileNot on fileNot on file Last Filed Vital Signs Vital SignReadingTime TakenCommentsBlood Xtnuluid643/7801/22/2020 3:16 PM EDT Dufif636101/22/2020 3:16 PM HOEXtzfhkuuprk13.1 ??C (96.9 ??F)01/22/2020 3:16 PM EDTRespiratory Nstu2912 3:16 PM EDTOxygen Opotqgmhmi11%01/22/2020 3:16 PM EDTInhaled Oxygen Concentration--Vcubky81.3 kg (199 lb)01/22/2020 3:16 PM EDT Jhphis655.5 cm (5' 2.01 )01/22/2020 3:16 PM EDTBody Mass Index36.391 3:16 PM EDT Plan of Treatment Health MaintenanceDue DateLast DoneCommentsStatin Use: Dwbyqsrjcfebgj48/27/1954 Depression Ehmibaqgk56/27/1966Tobacco Pijgzrikc16/27/1966Adult BMI Screening 05/25/19710109Thautfdyl03/27/1994RSV ( or age 60+ yrs) (1 - Risk 60-74 years 1-dose series)2013Fall Risk Eesvpwfnk22/27/2019DTaP,Tdap and Td Vaccines DiscontinuedInfluenza VaccineDiscontinuedZoster (Shingles) VaccineDiscontinued Medical Devices Not on file Insurance
--- OUTSIDE RECORDS SUMMARY | 2025-02-28 12:53 | XMS_ITS | Clinical Summary ---
Author Organization [facility] Address [address], [address] [place] [address] Care Team Providers Care Heat Treating Bluer Name Role Phone Nolvia Jimenez APRN, NP Primary Care Provide r Allergies Active AllergyReactionsCriticalityNoted TsnjJnhtvucnRlqnaxjhnsbRxygb92/02/2017 AiufgyqhtpxvowownikVkpvUqj38/02/2017 Exfoliative Dermatitis KjljsptjwooVmgys79/02/2017Sodium Agwendhl18/11/2024Sulfa AntibioticsOther (See Comments)04/08/2023 Other Reaction(s): Unknown Reaction CaribqgtmgBajcriucfvjYtbx74/02/2017 Medications MedicationSigDispense QuantityRefillsLast FilledStart DateEnd DateStatus dupilumab (DUPIXENT) 300 MG/2ML SOAJ injection Inject 2 mLs into the skin every 14 daysActive FARXIGA 10 MG tablet Take 1 tablet by mouth every morningActive cyclobenzaprine (FLEXERIL) 10 MG tablet Take 1 tablet by mouth 2 times daily as nhusas125Active vitamin D (CHOLECALCIFEROL) 50 MCG (2000 UT) CAPS capsule Take 1 capsule by mouth daily5Active atorvastatin (LIPITOR) 80 MG tablet Take 1 tablet by mouth hnieyru85/17/2025Active aspirin 81 MG EC tablet Take 1 tablet by mouth dailyActive VENTOLIN HFA 108 (90 Base) MCG/ACT inhaler Inhale 2 puffs into the lungs every 6 hours as neededActive MAGNESIUM PO Take 200 mg by mouth dailyActive furosemide (LASIX) 40 MG tablet Take 1 tablet by mouth daily5Active ipratropium 0.5 mg-albuterol 2.5 mg (DUONEB) 0.5-2.5 (3) MG/3ML SOLN nebulizer solution Inhale 3 mLs into the lungs 4 times dailyActive isosorbide mononitrate (IMDUR) 60 MG extended release tablet Take 1 tablet by mouth dailyActive metoprolol tartrate (LOPRESSOR) 25 MG tablet Take 1 tablet by mouth 2 times daily/ctive nitroGLYCERIN (NITROSTAT) 0.[address] 1 tablet under the tongue every 5 minutes as ekcsxd4409/05/2024tive olmesartan (BENICAR) 40 MG tablet Take 1 tablet by mouth dailyctive pantoprazole (PROTONIX) 40 MG tablet Take 1 tablet by mouth daily11/13/2024tive predniSONE (DELTASONE) 10 MG tablet Take 1 tablet by mouth dailyActive Active Problems ProblemNoted DateDiagnosed DateLong term (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 of inhaled steroids 01/16/2025 Assessment & Plan (01/16/2025 5:40 PM EDT): The patient was counseled to rinse & gargle with water after inhaled corticosteroid use in order to reduce the risk of oral candidiasis and other potential adverse effects. penitentiary (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 of systemic rycraohy40/21/2025 Assessment & Plan (01/16/2025 5:40 PM EDT): Discussed with the patient adverse effects of halfway systemic steroids including, but not limited to: increased risk of cataracts, elevated blood sugars/worsening of underlying diabetes mellitus, impaired wound healing, gastrointestinal ulcers, and osteoporosis. Assessment & Plan (01/16/2025 5:40 PM EDT): Hfbuoxpahwjnwcuotut71/21/2025Hypertensive renal kprgimj6301/16/2025Hyperuricemia 01/16/2025Vitamin D ymvhvlaqjj27/21/2025Gastroesophageal reflux disease without aszvncezjbs23/18/2025Type 2 diabetes mellitus without /15/2025 Angina pectoris, zqiunlyn28/20/2025Stage 3b chronic kidney bqjgler0506/08/2024 Multiple pulmonary jkvxdni4103/02/20235757Dcqzwjvgxsbsur89/01/2023Hyponatremia 10/27/2022History of acute inferior wall MI01/13/2018Bladder prolapse, female, smrzihid99/02/2017COPD (chronic obstructive pulmonary disease) Assessment & Plan (01/16/2025 5:40 PM EDT): Prior treatment: Trelegy ~ Breztri > Advair Patient remains symptomatic, but believes it is more cardiac than pulmonary. She does not want any further treatments at this time (e.g. EBV, Ohtuvayre). Will continue with Trelegy and daily prednisone (not ideal). History of tobacco abuse Assessment & Plan (01/16/2025 5:40 PM EDT): 1ppd x 58 years, quit 2017. LDCT is due March 2025. 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; penitentiary (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 of inhaled tnxozdoa64/06/2025bstract [facility] [address] [place] [address] Brien Coughlin DO from Last 3 Months Family History Medical HistoryRelationNameCommentsHeart DiseaseFatherHypertensionFatherCOPD MotherHeart DiseaseMotherHypertensionMotherStrokeMotherCOPDSisterRelationName StatusCommentsFatherMotherSister Social History Tobacco UseTypesPacks/DayYears UsedDateSmoking Tobacco: HnuolgNgygmwopkh7770443 - 2018Smokeless Tobacco: Never Tobacco Cessation:Counseling Given: Not Answered Alcohol UseStandard Drinks/WeekCommentsNever0 (1 standard drink = 0.6 oz pure alcohol)CommentsUnknownSex and Gender InformationValueDate RecordedSex Assigned at LkgxxWunexl62/03/2025 3:15 PM EDTLegal YbrLbqybj95/03/2025 3:10 PM EDTGender CpfloekwTaqbce62/03/2025 3:15 PM EDTSexual OrientationStraight 12/29/2024 3:15 PM EDT Last Filed Vital Signs Vital SignReadingTime TakenCommentsBlood Onutbxdq405/6401/16/2025 1:56 PM EDT Ioshw759701/16/2025 1:56 PM SOJZycfelpybbh11.9 ??C (96.6 ??F)01/16/2025 1:56 PM EDTRespiratory Ccib1772 1:56 PM EDTOxygen Srxwhypcri87%01/16/2025 1:56 PM EDTon room airInhaled Oxygen Concentration--Thcoov05.2 kg (190 lb)01/16/2025 1:56 PM UZMAafzuf663 cm (5' 3 )01/16/2025 1:56 PM EDTBody Mass Index33.66 01/16/2025 1:56 PM EDT Plan of Treatment DateTypeDepartmentCare Team (Latest Contact Info)Gujgvyessme58/21/2026 2:00 PM EDTOffice Visit [facility] [address] [place] [address] Brien Coughlin, [address] [place] [address] 6 MO. for COPD, O2.Health MaintenanceDue DateLast YfrjFnlgoatuF7N test (Diabetic or Prediabetic)1963Diabetic foot exam05/25/19630927Aymosf05/27/1964Depression Edpcsg9505/25/1965Diabetic Alb to Cr ratio (uACR) test1971Diabetic retinal exam1971GFR test (Diabetes, CKD 3-4, OR last GFR 15-59)1971Hepatitis C bzxwse3905/25/1971DTaP/Tdap/Td vaccine (1 - Tdap)1972Pneumococcal 50+ years Vaccine (1 of 2 - PCV)1972Breast cancer waytnw3105/25/1993Colonoscopy 1998FIT/FOBT: Average risk1998Sigmoidoscopy/CT colonography 1998Lung Cancer Screening &/or Ndevvzuhuw28/27/2004Shingles vaccine (1 of 2)2003DEXA (modify frequency per FRAX score)2008Respiratory Syncytial Virus (RSV) or age 60 yrs+ (1 - Risk 60-74 years 1-dose series)2013nnual Wellness Visit (Medicare Advantage)03/29/2024Flu vaccine (#1)10/27/2024OVID-19 Vaccine ( season)2024olorectal Cancer Sghuwu9102/07/2027Fecal-DNA (Cologuard): Average risk711/02/2024Hepatitis A vaccineAged OutNo longer eligible based on patient's age to complete this topicHepatitis B vaccineAged OutNo longer eligible based on patient's age to complete this topicHib vaccineAged OutNo longer eligible based on patient's age to complete this topicMeningococcal (ACWY) vaccineAged OutNo longer eligible based on patient's age to complete this topicMeningococcal B vaccineAged OutNo longer eligible based on patient's age to complete this topicPolio vaccineAged OutNo longer eligible based on patient's age to complete this topic Insurance Advance Directives NameRelationshipHealthcare Agent RelationshipCommunicationPhysicians [facility] Primary Decision Maker* Care Teams Team MemberRelationshipSpecialtyStart DateEnd Date Nolvia Jimenez, TROUBLE LOCATOR TEST DESK - SUPERVISOR DECORATING [address] [place] [address] PCP - GeneralNurse Yymdvwewkijw82/3/25
--- OUTSIDE RECORDS SUMMARY | 2025-02-28 12:55 | XMS_ITS | Clinical Summary ---
Author Organization [facility] Address [address] [place] [address] Care Team Providers Care Census Clerk Name Role Phone Nolvia Jimenez MD Primary Care Provider [phone] Brien Coughlin MD Unavailable Allergies Active AllergyReactionsCriticalityNoted RvurYuvojgojZbzhqjzubda07/02/2017 Pswfhkeccxyjblxegnc76/02/2017 Exfoliative Dermatitis Hzfoshersab99/02/2017Sodium Srwlvzpf96/11/2024Sulfa (Sulfonamide Antibiotics) Fdsifer7804/08/20236050Lthtcwtnqd02/02/2017 Medications MedicationSigDispense QuantityRefillsLast FilledStart DateEnd DateStatus aspirin 81 mg EC tablet Take 81 mg by mouth in the morning.12/07/2011ctive albuterol 90 mcg/actuation inhaler Inhale 2 puffs every 4 (four) hours if needed for shortness of breath.01/27/2022 Active cyclobenzaprine (Flexeril) 10 mg tablet Take 10 mg by mouth if needed in the morning, at noon, and at bedtime for muscle spasms.09/22/2022ctive cholecalciferol (Vitamin D-3) 50 MCG (1999 UT) tablet Take 2,000 Units by mouth in the morning.Active ipratropium-albuteroL (Duo-Neb) 0.5-2.5 mg/3 mL nebulizer solution Take 3 mL by nebulization 4 times a day.Active atorvastatin (Lipitor) 80 mg tablet Indications:Essential hypertensionTake 1 tablet (80 mg) by mouth in the morning. 90 tablet 4Active predniSONE (Deltasone) 10 mg tablet Take 10 mg by mouth in the morning.Active dupilumab (Dupixent Syringe) 100 mg/0.67 mL syringe Inject 300 mg under the skin every 14 (fourteen) days.Active hqhjrtjhin-aqnfmekt-sxjtnosyrc (Breztri Aerosphere) 160-9-4.8 mcg/actuation HFA aerosol inhaler Inhale 160 mcg in the morning.Active magnesium 200 mg tablet Take 1 tablet by mouth in the morning.Active nitroglycerin (Nitrostat) 0.4 mg SL tablet Indications:Pneumonia of right lower lobe due to infectious organismPlace 1 tablet (0.4 mg) under the tongue every 5 (five) minutes if needed for chest pain. 25 tablet 5Active spironolactone (Aldactone) 25 mg tablet Indications:Heart failure with mildly reduced ejection fraction (CMS/HCC)Take 1 tablet (25 mg) by mouth in the morning. 30 tablet //20240330/5Active Additional Information Patient not taking.Reported on 11/20/2024 furosemide (Lasix) 20 mg tablet Indications:Pneumonia of right lower lobe due to infectious organismTake 1 tablet (20 mg) by mouth in the morning. 90 tablet 5Active Additional Information Patient taking differently: 40 mgoral Daily, Reported on 11/20/2024 metoprolol succinate XL (Toprol-XL) 50 mg 24 hr tablet Indications:hypertensionTake 1 tablet (50 mg) by mouth two times daily. Do not crush or chew. 180 tablet /6Active yjdibalmgmn-subredtgq-pbmbwfje (Trelegy Ellipta) 100-62.5-25 mcg blister with device Inhale 1 puff 1 (one) time each day at the same time.5Active metoprolol tartrate (Lopressor) 25 mg tablet Indications:Non-sustained ventricular tachycardia (CMS/HCC)Take 1 tablet (25 mg) by mouth two times daily. 180 tablet //6Active furosemide (Lasix) 40 mg tablet Indications:Edema, unspecified type,Acute on chronic diastolic heart failure (CMS/HCC)Take 1 tablet (40 mg) by mouth in the morning. 90 tablet 509/ctive isosorbide mononitrate ER (Imdur) 60 mg 24 hr tablet Indications:Other chest painTake 1 tablet (60 mg) by mouth once daily as directed. Do not crush or chew. 90 tablet /6Active olmesartan (BENIcar) 40 mg tablet Indications:Essential hypertensionTake 1 tablet (40 mg) by mouth once daily as directed. 90 tablet /6Active dapagliflozin propanediol (Farxiga) 10 mg Indications:Chronic heart failure with preserved ejection fraction (CMS/HCC)Take 1 tablet (10 mg) by mouth in the morning. 90 tablet /6Active dapagliflozin propanediol (Farxiga) 10 mg Indications:Chronic heart failure with preserved ejection fraction (CMS/HCC)Take 1 tablet (10 mg) by mouth in the morning. 90 tablet Discontinued(Reorder) pantoprazole (ProtoNix) 40 mg EC tablet Take 40 mg by mouth before breakfast.Expired Active Problems ProblemNoted DateDiagnosed SdnqTewkrabeevks69/20/2025Hyperparathyroidism 01/16/20255641Qaadldpjepgst08/21/2025Vitamin D zopsxsmozw21/21/2025Epigastric pain 11/13/2024ug bites10/18/2024Positive colorectal cancer screening using Cologuard test10/11/2024Heart eyqytmn8610/10/2024Other ojibqrwcxekh34/15/2025Type 2 diabetes mellitus without hnfpynogevyqi46/15/2025Elevated raxsvtgc94/09/2025 Assessment & Plan (09/04/2024 12:39 PM EDT): Likely type II WA, supply/demand mismatch EKG shows sinus rhythm with PVCs Echo pending NSTEMI (non-ST elevated myocardial infarction)09/03/2024 Assessment & Plan (09/04/2024 2:46 PM EDT): [...] found during lookback period of 72 hours. Jcjygalax29/08/2025 Assessment & Plan (09/04/2024 2:46 PM EDT): - Patient was requiring nonrebreather upon arrival to [facility] - has been switched to high flow nasal cannula -Chest x-ray at [facility] showed right lower lobe pneumonia - 09/04/2024 x-ray done at [facility] was consistent with the previously mentioned findings - Continue with DuoNeb as needed - Continue following lactic acid trend to assess hypoxia status - WBC remains elevated at 19.91 while her temperature remains stable around 36.3 celsius since lastnight - Current antibiotic regimen includes - azithromycin IVPB 500 mg in NS 250 mL Mini-Bag Plus (Pyxis-CNR) and ceftriaxone (Rocephin) IVPB 2 g in NS 50 mL (Mini- Bag Plus) - Reassess antibiotic plan after receiving results from the sputum culture No associated orders from this encounter found during lookback period of 72 hours. Acute hypoxic respiratory srvevwu4909/03/2024 Assessment & Plan (09/04/2024 12:39 PM EDT): [...] Patient was requiring nonrebreather upon arrival to [facility] - has been switched to high flow nasal cannula - Patient was on Lasix 20 mg every other day - switching to 40 mg daily, monitor I's and O's and daily weight - Continue with DuoNeb as needed No associated orders from this encounter found during lookback period of 72 hours. CRP sfpkrgef77/30/2025Elevated WBC count07/26/2024ngina pectoris, unstable 06/15/2024ody mass index (BMI) 35.0-35.9, adult06/08/2024Irregular heartbeat 04/18/2024Stage 3a chronic kidney abljbmq1704/12/2023Multiple pulmonary nodules VC (premature ventricular contraction)12/31/2022History of tobacco useOther termite technician (current) drug olxfmnw8512/28/2022 12/28/2022Non-sustained ventricular flbvsnhzsan59/22/2023 Assessment & Plan (11/17/2022 2:13 PM EDT): Currently on amiodarone for rhythm control and toprol for rate control for NSVT and frequent PVCs Recent heart cath with non obstructive CAD- no intervention was needed RTC with EP for further management and evaluation. In light of COPD please determine with Dr Coughlin if senior living amiodarone if feasible. Ihyhrh1910/27/2022 Assessment & Plan (11/17/2022 2:13 PM EDT): Sent pt for CBC and pt to f/u with her PCP and beekeeper Slcpsqrsuoidjv45/01/5394Qtrmuljlwemo06/01/3277Jwaxprporu38/31/2023 Assessment & Plan (11/17/2022 2:11 PM EDT): Reviewed rhythm strips from Card[facility] rehab and normal sinus rhythm, no PVCS noted or VT Chest pain07/08/2022 Overview (07/08/2022): Added automatically from request for surgery [id number] Former rzxgof9901/22/2020Health care bpbrmtymkep19/26/2020Diuretic-induced fyyygutvjsl83/21/2018History of acute inferior wall MI01/13/2018Bladder prolapse, female, lsewtkco09/02/2017Chronic GERD12/28/2016COPD (chronic obstructive pulmonary disease)12/28/2016 Overview (07/08/2022): Managed by Dr. White. Assessment [...] period of 72 hours. Coronary artery disease involving washoe coronary artery of washoe heart without angina kquhxlme04/02/2017 Assessment & Plan (11/17/2022 2:12 PM EDT): Coronary artery disease is stable without any concerning symtpoms Continue GDMT- ASA, brilinta, toprol, imdur continue risk factor modifications- heart healthy diet, regular exercise as tolerated and continue all medications. Lower back pain12/28/2016Severe obesity (BMI 35.0-39.9) with comorbidity 12/28/2016Shortness of xvtwyr3212/28/2016Essential vjafpjeqcxsp37/18/2017 Assessment & Plan (11/17/2022 2:12 PM EDT): Hypertension is well controlled Continue all meds Mixed edfdufmzxtxljv04/18/2017 Resolved Problems ProblemNoted DateDiagnosed DateResolved DateLong term current use of inhaled plqlwae02/04/2023 Encounters DateTypeDepartmentCare FedwGxclbiwzhnt24/20/2025 11:00 AM ESTOffice Visit [facility] [address] [address] Zack VillarrealMARISA Heart failure with mildly reduced ejection fraction (CMS/HCC) (Primary Dx); Bilateral lower extremity edema; ELY (dyspnea on exertion); Coronary artery disease involving washoe coronary artery of washoe heart without angina pectoris; Benign hypertensive heart disease with heart failure (CMS/HCC); Mixed hyperlipidemia; Stage 3a chronic kidney disease (CMS/HCC)02/07[facility] [address] [facility] [place] [address] Zack Villarreal CNP Chronic heart failure with preserved ejection fraction (CMS/HCC)12/07/2024[facility] [address] [facility] [place] [address] Milli Gutierrez MA Essential uzmcptcotyrl88/10/2025[facility] [address] [facility] [place] [address] Zack Villarreal CNP Other chest pain12/04/2024Orders Only [facility] [address] [facility] [place] [address] Zack Villarreal CNP 12/04/2024Telephone [facility] [address] [facility] [place] [address] Milli Gutierrez MA 11/30/2024[facility] [address] [facility] [place] [address] Oralia Jaramillo MA Edema, unspecified type (Primary Dx); Acute on chronic diastolic heart failure (CMS/HCC)from Last 3 Months Family History Medical HistoryRelationNameCommentsKidney diseaseFatherStrokeMotherCoronary artery diseasePaternal GrandfatherRelationNameStatusCommentsFatherDeceasedMother DeceasedPaternal Grandfather Social History Tobacco UseTypesPacks/DayYears UsedDateSmoking Tobacco: FormerCigarettesPassive Smoke Exposure: PastSmokeless Tobacco: Never Tobacco Cessation:Counseling Given: Not Answered Alcohol UseStandard Drinks/WeekCommentsYes0 (1 standard drink = 0.6 oz pure alcohol)[facility] UtilitiesAnswerDate RecordedIn the past 12 months has the electric, gas, oil, or water company threatened to shut off services in your home?No09/03/2024Humiliation, Afraid, Rape, and Kick questionnaireAnswerDate RecordedWithin the last year, have you been afraid of your partner or ex-partner?No09/03/2024Emotionally AbusedNot on file09/03/2024Physically Abused Not on file09/03/2024Sexually AbusedNot on file09/03/2024Overall Financial Resource Strain (CARDIA)AnswerDate RecordedHow hard is it for you to pay for the very basics like food, housing, medical care, and heating?Not very hard 09/03/2024UT Safety & EnvironmentAnswerDate RecordedWithin the last year, have you been afraid of your partner or ex-partner?10/26/2022Emotionally AbusedNot on file10/26/2022hysically AbusedNot on file10/26/2022Sexually AbusedNot on file10/26/2022hysically or Sexually AbusedNot on file10/26/2022Transportation AnswerDate RecordedIn the past 12 months, has lack of transportation kept you from medical appointments or from getting medications?09/03/2024Lack of Transportation (Non-Medical)Not on file09/03/2024Housing Stability Vital Sign AnswerDate RecordedIn the last 12 months, was there a time when you were not able to pay the mortgage or rent on time?No09/03/2024Number of Times Moved in the Last YearNot on file09/03/2024t any time in the past 12 months, were you homeless or living in a fci (including now)?No09/03/2024Hunger Vital Sign AnswerDate RecordedWithin the past 12 months, you worried that your food would run out before you got the money to buymore.Sometimes true09/03/2024Ran Out of Food in the Last YearNot on file09/03/2024CommentsNoSex and Gender InformationValueDate RecordedSex Assigned at ZhwouPtvozt44/02/2025 10:26 AM EDT Legal GjhZyzeil46/29/2022 9:48 PM EDTGender HkpvxcgaSeegkl74/02/2025 10:26 AM EDTSexual OrientationHeterosexual or Pqzwizit49/02/2025 10:26 AM EDT Last Filed Vital Signs Vital SignReadingTime TakenCommentsBlood Zhrcxzqs758/8802/15/2025 11:06 AM EST Ylmhe391802/15/2025 11:06 AM OHIQhgfrykluhn77.9 ??C (96.7 ??F)09/05/2024 1:20 PM EDTRespiratory Kacl624009/05/2024 1:20 PM EDTOxygen Tnftbyxjys93%02/15/2025 11:06 AM ESTInhaled Oxygen Concentration--Owpqpb38.6 kg (191 lb)02/15/2025 11:06 AM KEEUmyroa972 cm (5' 3 )02/15/2025 11:06 AM ESTBody Mass Index33.8302/15/2025 11:06 AM EST Plan of Treatment DateTypeDepartmentCare Team (Latest Contact Info)Znqxkupjfnj37/20/2026 11:00 AM ESTOffice Visit [facility] [address] [place] [address] Zack Villarreal, FRONT OFFICE ATTENDANT [address] [place] [address] Health MaintenanceDue DateLast DoneCommentsCT Lseutwxsgejd90/27/1954Colonoscopy 1953FOBT1953Medicare Annual Wellness (AWV)1953Sigmoidoscopy 1953iabetes: Retinopathy Pzmyqauhq04/27/1964Depression Screening 1965Diabetes: Urine Protein Znxergnky15/27/1973Pneumococcal Vaccine: 50+ Years (1 of 2 - PCV)1972Adult Dcdrvvm3605/25/19755137Ejomdxvfb24/27/1994Zoster Vaccines (1 of 2)2003COVID-19 Vaccine (2 - season)2024 09/01/2020Influenza Vaccine (#1)2024Diabetes: Hemoglobin A1C12/04/2024 09/03/2024FITFall Risk Aujxsxghi03 Colorectal Cancer Bhtkpzzrm44/12/2027FIT-DNAHIB VaccinesAged OutNo longer eligible based on patient's age to complete this topicHPV Vaccines Aged OutNo longer eligible based on patient's age to complete this topicIPV VaccinesAged OutNo longer eligible based on patient's age to complete this topic Meningococcal B VaccineAged OutNo longer eligible based on patient's age to complete this topicMeningococcal VaccineAged OutNo longer eligible based on patient's age to complete this topicRotavirus VaccinesAged OutNo longer eligible based on patient's age to complete this topic Medical Devices ImplantedTypeAreaManufacturerDevice IdentifierShelf Expiration DateModel / Serial / LotSChuy manning Mr 2.50 X 12 - [id number] Implanted:Qty: 1 on 07/14/2022 by Abby Azevedo MD at [facility] Eluting Stent[place] [id number]/27/2023 [id number] / / [id number] Procedures Procedure NamePriorityDate/TimeAssociated DiagnosisCommentsHEMOGLOBIN Z0WNrq-Hk 09/03/2024 5:09 PM EDT from Last 3 Months or Most Recently Relevant to Health Maintenance Results * (ABNORMAL) Hemoglobin A1c (09/03/2024 5:09 PM EDT)ComponentValueRef RangeTest MethodAnalysis TimePerformed AtPathologist SignatureHemoglobin A1C6.6(H)4.0 - 6.0 %09/04/2024 9:06 AM [email or web address] ([place])Estimated Average Glucose 143mg/dL09/04/2024 9:06 AM [email or web address] ([place])Specimen (Source) Anatomical Location / LateralityCollection Method / VolumeCollection Time Received TimeBloodVenous blood specimen / UnknownVenipuncture / Unknown 09/03/2024 5:09 PM EDT09/03/2024 5:40 PM EDT Narrative Authorizing ProviderResult TypeResult StatusOmar Ela COTELAB BLOOD ORDERABLES Final ResultPerforming OrganizationAddressCity/State/ZIP CodePhone Number [facility] ([place]) [address] [place] [address] from Last 3 Months or Most Recently Relevant to Health Maintenance Insurance Advance Directives * Full Code (Latest Code Status on File) Date ActivatedDate InactivatedComments09/03/2024 4:37 PM09/05/2024 4:27 PM * Full Code Date ActivatedDate InactivatedComments07/03/2024 11:10 AM07/03/2024 4:05 PM * Full Code Date ActivatedDate InactivatedComments10/27/2022 1:05 AM10/31/2022 5:46 PM * Full Code Date ActivatedDate InactivatedComments07/14/2022 12:10 PM07/14/2022 6:57 PM Care Teams Team MemberRelationshipSpecialtyStart DateEnd Date Nolvia Jimenez MD [address] [place] [address] PCP - GeneralNurse Practitioner06/15/24 Brien Coughlin MD [address] [place] [address] Pulmonary Disease09/05/24
--- OUTSIDE RECORDS SUMMARY | 2025-02-28 12:55 | XMS_ITS | Patient Health Record ---
Author Organization [facility] in [place] Address [address] [place] [address] Care Team Providers Care Antique Dealer Name Role Phone Nolvia Jiemnez CNP Primary Care Provider Unavail able Brien Coughlin Unavailable [phone] Allergies Allergen (clinical drug ingredient) Drug/Non Drug Allergy documented on EMR Reaction Allergy Type Onset Date Status clopidogrel Plavix Unknown Drug Allergy ActivehydrochlorothiazideHydrochlorothiazideshortness of breathDrug Allergy ActiveSubstance with sulfonamide structure and antibacterial mechanism of action (substance)Sulfa AntibioticsUnknownDrug AllergyActivePenicillinrashDrug Allergy ActivevancomycinVancomycinUnknownDrug AllergyActive Results Component Value Reference Range Notes ITP Reviewed date:10/04/2024 10:42:13 AM Interpretation: Performing Lab: Notes/Report: Source Facility: [place] [address] [place] [address] Cardiac Rehab Report Signed Patient: SUSANA JUARES MR#: [id number] : 1955 Acct:[id number] Age/Sex: 69 / F ADM Date: 10/03/24 Loc: CR Attending Dr: Abby Azevedo M.D. Ordering Physician: Brien Coughlin D.O. Date of Service: 10/02/24 Procedure(s): ITP Accession Number(s): [id number] cc: [facility] Test Date: 2024-10-02 Pat Name: SUSANA JUAERS Department: Room: - Gender: Female Slagger: : 1955 Requested By: Brien Coughlin Order Number: [id number] Dane MD: Brien Coughlin Interpretive Statements Okay to proceed with outlined treatment plan. Electronically Signed On 10-04-2024 10:08:06 EDT by Brien Coughlin Dictated By: Brien Coughlin D.O. Signed By: 10/04/24 1008 10/04/24 1008 DD/ 1145 TD/TT: Manager Contact: TRACIE Reviewed date:10/04/2024 10:42:09 AM Interpretation: Performing Lab: Notes/Report: Source Facility: [place] [address] Cardiac Rehab Report Signed Patient: SUSANA JUARES MR#: [id number] : 1955 Acct:[id number] Age/Sex: 69 / F ADM Date: 10/03/24 Loc: CR Attending Dr: Abby Azevedo M.D. Ordering Physician: Brien Coughlin D.O. Date of Service: 10/03/24 Procedure(s): TRACIE Accession Number(s): [id number] cc: [facility] Test Date: 2024-10-03 Pat Name: SUSANA JUARES Department: Room: - Gender: Female Slagger: : 1955 Requested By: Brien Coughlin Order Number: [id number] Dane MD: Brien Coughlin Interpretive Statements Okay to proceed with outlined treatment plan. Electronically Signed On 10-04-2024 10:08:18 EDT by Brien Coughlin Dictated By: Brien Coughlin D.O. Signed By: 10/04/24 1008 10/04/24 1008 DD/ 1245 TD/TT: Manager Contact: Reason For Referral Reason Palliative care serv ices for severe COPD Diagnosis 1 COPD (chronic obstru ctive pulmonary disease) (J44.9) Referral Organization [facility] [place] Referring Provider First Name Brien Referring Provider Last Name Ced Referring Provider Speciality Pulmonolog y Referred Provider Specialty Palliative C are General Notes JenniferChandu 05/04 08:23:43 AM >Referral form and clinicals faxed to [facility] JenniferChandu 05/11/2024 11:07:35 AM >Per Patient-[facility] is out of network for the patient. Patient states she spoke with [facility]. Patient states she is going to hold off on the Palliative Care at this time. Referral Closed. Thank You! Referral Priority Routine Medications Medication SIG (Take, Route, Frequency, Duration) Notes Start Date End Date Status Aspirin 81 MG 1 tablet Orally Once a day ActiveMagnesium Oxide -Mg Supplement 400 (240 Mg) MGTAKE 1 TABLET BY MOUTH IN THE MORNING then TAKE 1 TABLET BY MOUTH AT BEDTIME Oral; Duration: 15 DaysActive Atorvastatin Calcium 80 MGTAKE 1 TABLET BY MOUTH DAILY Oral; Duration: 90 Days ActiveMetoprolol Tartrate 50 MGTAKE 1 TABLET BY MOUTH TWICE DAILY Oral; Duration: 90 DaysActiveIpratropium-Albuterol 0.5-2.5 (3) MG/3ML 3mL Inhalation QID; Duration: 90 days Dispense 360 ampules 4ActiveIsosorbide Mononitrate ER 60 MG1 tablet in the morning Orally Once a day; Duration: 30 daysActiveFurosemide 20 MG1 tablet Orally Once a day; Duration: 90 daysActiveVitamin D 50 MCG (2000 UT)1 tablet Orally Once a day ActiveguaiFENesin ER 600 MG1 tablet as needed Orally every 12 hrsActive predniSONE 10 MG 1 tablet Orally Once a day; Duration: 90 days Take with food ActiveFarxiga 10 MG1 tablet Orally Once a day; Duration: 30 daysActiveVentolin HFA 108 (90 Base) MCG/ACT 2 puffs as needed for SOB Inhalation Q4H; Duration: 90 days Dispense #3 inhalers ActiveCyclobenzaprine HCl 10 MGTAKE 1 TABLET BY MOUTH THREE TIMES DAILY NEEDED Oral; Duration: 30 daysActiveDupixent 300 MG/2MLas directed Subcutaneous ActiveOlmesartan Medoxomil 40 MG1 tablet Orally Once a day; Duration: 90 days ActiveTrelegy Ellipta 100-62.5-25 MCG/ACT 1 puff Inhalation Once a day; Duration: 90 days Rinse after use ; Dispense #3 inhalers ActiveOmeprazole 20 MG1 capsule 30 minutes before morning meal Orally Once a day Active Immunizations Vaccine Route Administration Date Status Comme nts SARS-COV-2 (COVID 19 Tiago 0.5mL) Sorin and Sorin Unknown 09/01/2020 Administered Social History Tobacco Use: Social History Observation Description Date Details (start date - stop date) Former Smoker NA - NA Tobacco Control (Standard) Question Answer Notes Tobacco use: Former smoker Additional Findings: Tobacco nvc-pdkePq-exkxx cigarette smoker (20-30/day) Problems Problem Type SNOMED Code ICD Code Onset Dates Problem Status W/U Status Risk Notes Problem Chronic obstructive pulmonary disease (70858250) Chronic obstructive pulmonary disease, unspecified (J44.9) ActiveconfirmedProblemObesity (845524168)Obesity, unspecified (E66.9)Active confirmedProblemChronic respiratory failure (99735994)Chronic respiratory failure with hypoxia (J96.11)ActiveconfirmedProblemLong-term current use of inhaled steroid (606053745)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 (Z79.51) ActiveconfirmedProblemLong-term current use of systemic steroid (242272055892769)assisted (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 of systemic steroids (Z79.52)Active confirmedProblemCOPD - Chronic obstructive pulmonary disease (41464681)COPD (chronic obstructive pulmonary disease) (J44.9)ActiveconfirmedProblemCoronary artery disease (17337040)CAD (coronary artery disease) (I25.10)Activeconfirmed ProblemMultiple pulmonary nodules (345875445)Multiple pulmonary nodules (R91.8) ActiveconfirmedProblemEx-tobacco user (finding) (343104564)History of tobacco abuse (Z87.891)ActiveconfirmedProblemOld myocardial infarction (3542213)History of non-ST elevation myocardial infarction (NSTEMI) (I25.2)ActiveconfirmedProblem Obese class II (567230944255209)Body mass index [BMI] 35.0-35.9, adult (Z68.35) Activeconfirmed Vital Signs Heart Rate 92 /min 09/12/2024 [...] Encounter Location Date Provider Diagnosis [facility] [place] [address] [place] [address] 05/11/2024 [facility] [address] [place] [address]/ [facility] [address] [place] [address] [facility] disease[facility] J44.9 Pul[facility] Medicine [address] [place] [address]/02/2025 [facility] Medicine [id number] [place] [address] [facility] ; Multiple pulmonary nodules R91.8 ; History of tobacco abuse Z87.891 ; customer sales service manager (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 of systemic steroids Z79.52 ; assisted (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 of inhaled steroids Z79.51 and Obesity, unspecified E66.9ulmonary Medicine [address] [place] [address]/[facility] (chronic obstructive pulmonary disease) J44.9 ; Multiple pulmonary nodules R91.8 ; History of tobacco abuse Z87.891 ; customer sales service manager (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 of systemic steroids Z79.52 ; assisted (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 of inhaled steroids Z79.51 and Obesity, unspecified E66.9 [facility] [address] [place] [address]/07/2024 Brien CoughlinCOPD (chronic obstructive pulmonary disease) J44.9 ; Multiple pulmonary nodules R91.8 ; History of tobacco abuse Z87.891 ; CAD (coronary artery disease) I25.10 ; 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 Z79.51 ; Obesity, unspecified E66.9 and Body mass index [BMI] 35.0-35.9, adult Z68.[address] [address]/ Brien CoughlinCOPD (chronic obstructive pulmonary disease) J44.9Pulmonary Medicine [id number] [place] [address]/Brien CoughlinCOPD (chronic obstructive pulmonary disease) J44.9 ; Chronic respiratory failure with hypoxia J96.11 ; Multiple pulmonary nodules R91.8 ; History of non-ST elevation myocardial infarction (NSTEMI) I25.2 ; History of tobacco abuse Z87.891 ; customer sales service manager (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 of systemic steroids Z79.52 ; 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 Z79.51 and Obesity, unspecified E66.9 Assessments Encounter Date Diagnosis (ICD Code) Assessment Notes Treatment Notes Treatment Clinical Notes Section Notes 05/03/2024 COPD (chronic obstructive pulmon seng disease) (ICD-10 - J44.9) Remains symptomatic, no [...] I stated I would have the interventional c programmer make that determination. -Pulmonary rehabilitation: She is [...] did not want to go to another c programmer, she wants to stay here with me. I explained that it is only for the procedure - I will still be her local c programmer. She did not want to persue endobronchial [...] her start those medications in the meantime. 05/03/2024Multiple pulmonary nodules (ICD-10 - R91.8) LDCT 01/24/2024 compared to01/20/2023 Continues to show stability of the pulmonary nodules, severalcalcified and others noncalcified. She went to ER on 04/18/[address] which showed no change in the nodules. 5COPD (chronic obstructive pulmonary disease) (ICD-10 - J44.9) [...] I offered to refer her to either [facility] (e.g. Dr. Heard) or (e.g. Dr. [...] back in 4 weeks to assess response. 08/01/2024Multiple pulmonary nodules (ICD-10 - R91.8) Unchanged nodule 04/18/2024 as far back as 01/20/2023. 5COPD (chronic obstructive pulmonary disease) (ICD-10 - J44.9)Patient presents for her initial Dupixent injection. Education [...] reactions were noted. Post Injection Vitals taken. [facility]:[id number]. Lot#[id number]. Exp:11/26/2024. Patient was advised to self administer Dupixent in 2 weeks at home. All questions and concerns answered with the patient. Chandu Rodriguez CMA.5COPD (chronic obstructive pulmonary disease) (ICD-10 - J44.9) [...] not much else that can be done. 5COPD (chronic obstructive pulmonary disease) (ICD-10 - J44.9) [...] monitoring d/t the NSTEMI and reduced EF. Rhkw-ov-gqcm encounter performed with the patient to document continued need for a nebulizer with nebulized medications. -Current nebulized medications: DuoNeb -Symptom control: Improved with use -Reported side or adverse effects: None -Recommendations: Renew, refill, reorder nebulizer and supplies. 09/12/2024hronic respiratory failure with hypoxia (ICD-10 - J96.11) Fudm-gx-hanw encounter performed with the patient to document continued need for supplemental oxygen (O2). -DME: [facility] -Flow & directions: 3L/min O2 activity -Patient voices adherence to recommended usage: Yes -Symptom control on O2: Improved, but still SOB -Counseled patient not begin, restart, or continue smoking, around the O2 due to risk of fire whichcould result in damage to the O2 tanks & lines, smoke inhalation and flame damage to the airway, significant kirk, potential , property damage, and potential harm & to bystanders.Additionally, counseled it is not pope to begin, restart, or continue smoking given the underlying pulmonary disease that led to the point of requiring O2. -Recommendations: SpO2 87% on 3L/min with activity. Can increase O2 flow to 4L/min activity for now(no evidence of hypercapnic respiratory failure). Explained at 4L/min, the POC battery will be taxed - any increase in flow she will need to convert over to continuous. She may participate in cardiacrehab to keep SpO2 @ 89% or greater. 5COPD (chronic obstructive pulmonary disease) (ICD-10 - J44.9) 09/12/2024Multiple pulmonary nodules (ICD-10 - R91.8) Unchanged nodule 04/18/2024 as far back as 01/20/2023. 08/23/2024Multiple pulmonary nodules (ICD-10 - R91.8) Unchanged nodule 04/18/2024 as far back as 01/20/2023. 08/01/2024History of tobacco abuse (ICD-10 - Z87.891) 1ppd x 50 years, quit 2017 LDCT 01/24/2024 - RADS-2. LDCT due 12/2024. 05/03/2024History of tobacco abuse (ICD-10 - Z87.891) 1ppd x 50 years, quit 2017 LDCT 01/24/2024 - RADS-2. LDCT due 12/2024. 05/03/2024AD (coronary artery disease) (ICD-10 - I25.10) F/U with [facility] Cardiology. 08/01/2024Long term (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 of systemic steroids (ICD-10 - Z79.52) Discussed adverse effects of vault clerk systemic steroids including, but not limited to: increased risk of cataracts, elevated blood sugars/worsening of underlying diabetes mellitus, impaired wound healing, gastrointestinal ulcers, osteoporosis. 08/23/2024History of tobacco abuse (ICD-10 - Z87.891) 1ppd x 50 years, quit 2017 LDCT 01/24/2024 - RADS-2. LDCT due 12/2024. 09/12/2024History of non-ST elevation myocardial infarction (NSTEMI) (ICD-10 - I25.2) 09/03/2024: NSTEMI type 2 secondary to pneumonia Now has reduced EF @ 44%. Restart cardiac rehab, F/U with [facility] Cardiology. 09/12/2024History of tobacco abuse (ICD-10 - Z87.891) 1ppd x 50 years, quit 2017 LDCT 01/24/2024 - RADS-2. LDCT due 12/2024. 08/23/2024Long term (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 of systemic steroids (ICD-10 - Z79.52) Discussed adverse effects of senior care systemic steroids including, but not limited to: increased risk of cataracts, elevated blood sugars/worsening of underlying diabetes mellitus, impaired wound healing, gastrointestinal ulcers, osteoporosis. 08/01/2024Long term (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 of inhaled steroids (ICD-10 - Z79.51) Patient was counseled to rinse & gargle with water after inhaled corticosteroid use. 05/03/2024Long term (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 of inhaled steroids (ICD-10 - Z79.51) Patient was counseled to rinse & gargle with water after inhaled corticosteroid use. 05/03/2024Obesity, unspecified (ICD-10 - E66.9) Patient's weight is inducing a restrictive pulmonary physiology. Weight loss indicated: Decrease calories, increase activity. 08/01/2024Obesity, unspecified (ICD-10 - E66.9) Patient's weight is inducing a restrictive pulmonary physiology. Weight loss indicated: Decrease calories, increase activity. 08/23/2024Long term (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 of inhaled steroids (ICD-10 - Z79.51) Patient was counseled to rinse & gargle with water after inhaled corticosteroid use. 09/12/2024Long term (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 of systemic steroids (ICD-10 - Z79.52) Discussed adverse effects of senior care systemic steroids including, but not limited to: increased risk of cataracts, elevated blood sugars/worsening of underlying diabetes mellitus, impaired wound healing, gastrointestinal ulcers, osteoporosis. 09/12/2024Long term (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 of inhaled steroids (ICD-10 - Z79.51) Patient was counseled to rinse & gargle with water after inhaled corticosteroid use. 08/23/2024Obesity, unspecified (ICD-10 - E66.9) Patient's weight is inducing a restrictive pulmonary physiology. Weight loss indicated: Decrease calories, increase activity. 05/03/2024ody mass index [BMI] 35.0-35.9, adult (ICD-10 - Z68.35)09/12/2024 Obesity, unspecified (ICD-10 - E66.9) Patient's weight is inducing a restrictive pulmonary physiology. Weight loss indicated: Decrease calories, increase activity. 05/03/20248739Ciijf10/06/2025Other Plan Of Treatment Future Test Test Name Order Date CT Chest Low Dose for Screening* 025 Insurance Providers Payer Name Payer Address Payer Phone Subscriber Number Group Number Insured Name Patient Relationship to Insured Coverage Start Date Coverage End Date [employer] [address] [place] [address] [id number] [facility] Susana Juares Self - patient is the insured Medications Administered Medication Instructions Date of Administration Dosage Notes Dupixent 5300 mgPatient brought the medication with her to the office today.Chandu Rodriguez 05/23/2024 11:35:11 AM EST > Medical (General) History Medical History History ICD Code COPD (chronic obstructive pulmonary dise ase) J44.9 CAD (coronary artery disease) I25.10 HTN (hypertension) I10 HLD (hyperlipidemia) E78.5 Multiple pulmonary nodules R91.8 SIADH (syndrome of inappropriate ADH pro duction) E22.2 Chronic respiratory failure with hypoxia J96.11 History of tobacco abuse Z87.891 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
--- OUTSIDE RECORDS SUMMARY | 2025-02-28 12:56 | XMS_ITS | Clinical Summary ---
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 Name Role Phone Argelia Cheng HEAVY CLEANER Unavailable Trace Kelly MD Primary Care Provider [phone] Argelia Cheng HEAVY CLEANER Unavailable [phone] Allergies Active AllergyReactionsCriticalityNoted DateCommentsHydrochlorothiazide 6210Cindogbexyp51/11/7495Doxgurxspvb12/11/2024Sodium Swwxviuh89/11/2024 Zfczqqzmdyqgq11/11/1329Ldwwzyvdco22/11/2024 Medications MedicationSigDispense QuantityRefillsLast FilledStart DateEnd DateStatus olmesartan (BENIcar) 40 MG tablet Take 40 mg by mouth in the morning.Active aspirin (Adult Aspirin Regimen) 81 MG EC tablet Take 81 mg by mouth in the morning.Active ipratropium-albuterol (Duo-Neb) 0.5-2.5 mg/3 mL nebulizer solution Take 3 mL by nebulization every 6 (six) hoursActive albuterol HFA 90 mcg/act inhaler Inhale 2 puffs every 4 (four) hours if needed for wheezingActive cholecalciferol (Vitamin D-3) 25 MCG (1000 UT) tablet Indications:Stage 3a chronic kidney disease ([facility])Take 1 tablet (25 mcg) by mouth Daily 60 tablet 4Active MAGNESIUM PO Take 200 mg by mouth in the morning.Active isosorbide mononitrate ER (Imdur) 60 MG 24 hr tablet Take 60 mg by mouth Daily5Active Dupilumab (Dupixent) 300 MG/2ML solution auto-injector as directed SubcutaneousActive Trelegy Ellipta 100-62.5-25 MCG/ACT aerosol powder Inhale 1 puff 1 (one) time each day at the same time5Active cyclobenzaprine (Flexeril) 10 MG tablet Indications:Chronic low back pain, unspecified back pain laterality, unspecified whether sciatica presentTake 0.5 tablets (5 mg) by mouth 3 (three) times a day as needed for muscle spasms for up to 15 days 45 tablet 5Active metoprolol succinate XL (Toprol-XL) 50 MG 24 hr tablet Take 50 mg by mouth in the morning and 50 mg before bedtime.5Active nitroglycerin (Nitrostat) 0.[address] 0.4 mg under the tongue every 5 (five) minutes if needed for chest pain 5Active atorvastatin (Lipitor) 80 MG tablet Indications:Other hyperlipidemiaTake 1 tablet (80 mg) by mouth at bedtime 90 tablet 5Active Farxiga 10 MG Take 10 mg by mouth in the morning.5Active Fluticasone-Salmeterol 250-50 MCG/ACT aerosol powder Inhale 1 puff in the morning and 1 puff before bedtime.5Active furosemide (Lasix) 40 MG tablet Take 40 mg by mouth DailyActive pantoprazole (ProtoNix) 40 MG EC tablet Indications:Gastroesophageal reflux disease without esophagitisTake 1 tablet (40 mg) by mouth in the morning. Take before meals. Do not crush, chew, or split. 90 tablet 5Active Active Problems ProblemNoted DateDiagnosed DateEpigastric pain11/13/2024 Assessment & Plan (11/13/2024 2:26 PM EDT): Will have her stop omeprazole Trial pantoprazole Check labs No gallbladder Will reach out to GI about scheduled for possible EGD etc NV? Related to meds, DD or gastroporesis Gastroesophageal reflux disease without uonsylwxmnl55/18/2025ug bites10/18/2024 Positive colorectal cancer screening using Cologuard test10/11/2024 Assessment & Plan (11/13/2024 7:05 AM EDT): Had colonoscopoy 11/01/24 2 polyps: 2cm cecum, 1.5cm ascending colon, as wells as hemorrhoids, started on miralax and metamucil Repeat colonoscopy in 6 months Chronic respiratory okmtyvr0710/10/2024Type 2 diabetes mellitus without ohzgzzguhhafi98/15/2025 Assessment & Plan (11/13/2024 7:00 AM EDT): HTN, HLD Assessment & Plan (10/10/2024 6:53 AM EDT): HTN, HLD Other apfhzscdshfl53/15/2025 Assessment & Plan (10/10/2024 5:40 PM EDT): Miralax not helping Will order abd xray Heart cyasssy1910/10/2024 Assessment & Plan (10/10/2024 5:43 PM EDT): I did contact [facility] [place] cardiology office updated on vital signs, weight and exam They will message sba business development officer to see about diuretic Check cxr Acute hypoxic respiratory mtstcfg5309/03/2024 Assessment & Plan (09/06/2024 6:42 PM EDT): On oxygen at this time Breathing is better Fu w pulmonology next week Cmeiehbyf51/08/2025 Assessment & Plan (09/06/2024 6:43 PM EDT): Finish atbs, cont fluids, oxygen Keep appt with pulmonology next week Elevated WBC count07/26/2024RP kqydsdmr52/30/2025Morbid (severe) obesity due to excess /13/2025 Assessment & Plan (11/13/2024 6:59 AM EDT): Discussed with patient their BMI (actual, verses recommended). We have also discussed lifestyle modifications: attempts to perform physical activity as chronic conditions allow, also to monitor dietary intake: increasing protein/fruits/veggies and lowering carb intake (unless contraindicated). Limit sodas, juices, and sugary drinks. Assessment & Plan (10/10/2024 6:49 AM EDT): [...] sodas, juices, and sugary drinks. Essential (primary) fnisawihgoxz78/13/2025 Assessment & Plan (11/13/2024 7:01 AM EDT): Please check blood pressure daily and record DASH diet Limit caffeine Take medication as directed Contact office if chest pain, pressure, dizziness, shortness of breath, swelling legs Recommend slow position changes Current meds: arb, b shyam, nitrate Assessment & Plan (10/10/2024 5:40 PM EDT): [...] shyam, nitrate Body mass index (BMI) 35.0-35.9, adult06/08/2024hronic kidney disease, stage 3b 06/08/2024 Assessment & Plan (09/06/2024 6:44 PM EDT): Goal to keep blood pressure well control Avoid nephrotoxic drugs if possible Continue w nephrology Assessment & Plan (06/08/2024 7:42 AM EDT): Goal to keep blood pressure well control Avoid nephrotoxic drugs if possible Continue w nephrology Mixed bywqoutcxdlykh48/13/2025 Assessment & Plan (06/08/2024 7:42 AM EDT): Statin therapy Check labs yearly and prn dose changes Irregular dinapyghu21/21/2025 Assessment & Plan (04/18/2024 2:57 PM EST): Intermittent shortness of breath, swelling in legs, heart skipping beats, fatigue. Irregular rhythm in office today. Advised pt to report to ER for further eval and treatment Encounter for Medicare annual wellness exam01/17/20248531Lpbbhtnupkdksy42/01/2023 Assessment & Plan (06/08/2024 7:41 AM EDT): Takes magnesium supplement Check labs yearly and prn dose changes or changes in symtpoms Pxwntgdwayth02/01/2023Former cbolvy8101/22/2020Chronic obstructive pulmonary disease, egnrfyxcayz45/02/2017 Overview (04/12/2023): Managed by Dr. White. Managed by Dr. White. Assessment & Plan (10/10/2024 5:39 PM EDT): Current meds: albuterol, trelegy, Under the care of pulmonology [facility] I do not think her current dypsnea is COPD Will check xray Assessment & Plan (06/08/2024 7:42 AM EDT): Current meds: albuterol, trelegy, Under the care of pulmonology [facility] Coronary artery disease involving klamath coronary artery of klamath heart without angina mudlvyaf36/02/2017 Overview (04/12/2023): Last Assessment & Plan: Coronary artery disease is stable without any concerning symtpoms Continue GDMT- ASA, brilinta, toprol, imdur continue risk factor modifications- heart healthy diet, regular exercise as tolerated and continue all medications. Assessment & Plan (11/13/2024 7:02 AM EDT): Takes asa, statin, imdur, b shyam, ARB, nitroglycerin prn Assessment & Plan (09/06/2024 6:43 PM EDT): Reviewed cardiology notes from [facility] [place] Did not feel elevated trop was related to IA Assessment & Plan (06/08/2024 7:39 AM EDT): Under the care of cardiology Current meds: statin, asa, imdur, b shyam, arb, diuretic, and ranexa Aggressive risk factor modification Assessment & Plan (04/12/2023 2:53 PM EST): Stable. No CP, SOB, palpitations. On ASA, Effient, BB, statin Follows [facility] [place] cardiology. Lower back pain12/28/2016 Assessment & Plan (06/08/2024 5:05 PM EDT): Flexeril prn Resolved Problems ProblemNoted DateDiagnosed DateResolved DateOther drgneufeowkcbn42/15/2025 11/13/2024Other zboiygukekrgzh37 Assessment & Plan (04/12/2023 2:52 PM EST): At goal. 01/18. On Lipitor 80 mg daily. Stage 3a chronic kidney trarjrw12/ Assessment & Plan (04/12/2023 2:51 PM EST): CKD 3, due to HTN. Doing well, renal function is stable. Instructed to avoid NSAIDS. Essential ajgnipdwpesi30 Overview (04/12/2023): Last Assessment & Plan: Hypertension [...] office in 2 weeks with BP readings. Family History Medical HistoryRelationNameCommentsHeart diseaseFatherHypertensionFatherCOPD MotherHeart diseaseMotherHypertensionMotherStrokeMotherEmphysemaSisterRelation NameStatusCommentsFatherMotherSister Social History Tobacco UseTypesPacks/DayYears UsedDateSmoking Tobacco: [id number] - 2016Smokeless Tobacco: Never Tobacco Cessation:Counseling Given: Not Answered Alcohol UseStandard Drinks/WeekCommentsNever0 (1 standard drink = 0.6 oz pure alcohol)B1300 Health LiteracyAnswerDate RecordedHow often do you need to have someone help you when you read instructions, pamphlets, or other written material from your doctor or pharmacy?Never06/08/2024Social Connection and Isolation PanelAnswerDate RecordedIn a typical week, how many times do you talk on the phone with family, friends, or neighbors?Once a week06/08/2024Frequency of Social Gatherings with Friends and FamilyNot on file06/08/2024How often do you attend episcopal or taoism services?1 to 4 times per year06/08/2024Do you belong to any clubs or organizations such as episcopal groups, unions, fraternal or athletic groups, or school groups?No06/08/2024How often do you attend meetings of the clubs or organizations you belong to?Never06/08/2024re you , , , , never , or living with a partner? 06/08/2024UDIT-CAnswerDate RecordedQ1: How often do you have a drink containing alcohol?Never06/08/2024Q2: How many drinks containing alcohol do you have on a typical day when you are drinking?Patient does not drink06/08/2024Frequency of Binge DrinkingNot on file06/08/2024Overall Financial Resource Strain (CARDIA) AnswerDate RecordedHow hard is it for you to pay for the very basics like food, housing, medical care, and heating?Not hard at all06/08/2024Fin[facility] [place] [facility] - Occupational Stress QuestionnaireAnswerDate RecordedDo you feel stress - tense, restless, nervous, or anxious, or unable to sleep at night because yourmind is troubled all the time - these days?Only a pprgnb8206/08/2024 Exercise Vital SignAnswerDate RecordedOn average, how many days per week do you engage in moderate to strenuous exercise (like a brisk walk)?4 days06/08/2024On average, how many minutes do you engage in exercise at this level?50 min 06/08/2024Hunger Vital SignAnswerDate RecordedWithin the past 12 months, you worried that your food would run out before you got the money to buymore.Never true06/08/2024Within the past 12 months, the food you bought just didn't last and you didn't have money to get more.Never true06/08/2024PRAPARE - TransportationAnswerDate RecordedIn the past 12 months, has lack of transportation kept you from medical appointments or from getting medications?No 06/08/2024In the past 12 months, has lack of transportation kept you from meetings, work, or from getting things needed for daily living?No06/08/2024 Housing Stability Vital SignAnswerDate RecordedIn the last 12 months, was there a time when you were not able to pay the mortgage or rent on time?No06/08/2024 Number of Times Moved in the Last YearNot on file06/08/2024t any time in the past 12 months, were you homeless or living in a retirement (including now)?No 06/08/2024CommentsUnknownSex and Gender InformationValueDate RecordedSex Assigned at BirthNot on fileLegal ZbfCgwziu00/19/2023 3:02 PM EDTGender Identity Not on fileSexual OrientationNot on file Last Filed Vital Signs Vital SignReadingTime TakenCommentsBlood Insguxlo356/72011/13/2024 1:50 PM EDT Esxsa746311/13/2024 1:50 PM ZXTBwmqeoesbob98.9 ??C (98.5 ??F)11/13/2024 1:50 PM EDTRespiratory Atlq4153 1:50 PM EDTOxygen Nlougiybgk40%11/13/2024 1:50 PM EDTInhaled Oxygen Concentration--Cilrdn11 kg (191 lb 12.8 oz)11/13/2024 1:50 PM TAHWustol095 cm (5' 3 )04/26/2024 3:02 PM ESTBody Mass Index33.98004/26/2024 3:02 PM EST Plan of Treatment Health MaintenanceDue DateLast DoneCommentsCT Cypjedrcxdap95/27/1954olonoscopy 1953FIT1953FOBT1953Lung Cancer Screening Shared Decision Adgllt04 1955 7348Akjupghiveyfl14/27/1954iabetes: Retinopathy Thosiocql04/27/1964 Pneumococcal Vaccine: 65+ Years (1 of 2 - PCV)1972COVID-19 Vaccine (2 - 2024- season)/08/2020Influenza Vaccine (#1)2024Diabetes: Hemoglobin A1C/10/2024, 09/03/2024Medicare Annual Wellness (AWV) /, 01/17/2024, 01/14/2023, Additional history existsDiabetes: Urine Protein Xtbtnpatr59/, 01/10/2018Colorectal Cancer Ymckrlvqq76/19/2027FIT-DNA, 02/08/2024MammogramDiscontinued Procedures Procedure NamePriorityDate/TimeAssociated DiagnosisCommentsLAB COLOGUARD?? COLON CANCER FOBKFAMlrrwrd01/19/2024 10:21 AM EST from Last 3 Months or Most Recently Relevant to Health Maintenance Results * Cologuard?? colon cancer screening (02/15/2024 10:21 AM EST)Specimen (Source) Anatomical Location / LateralityCollection Method / VolumeCollection Time Received TimeStool Narrative Authorizing ProviderResult TypeResult StatusShaikh Ric [facility] ORDERABLESFinal Result from Last 3 Months or Most Recently Relevant to Health Maintenance Insurance * Guarantor: Troy Juares TypeRelation to PatientDate of BirthPhone Billing AddressPersonal/PyvkbzFtuk37/27/1956 [address] [address] Advance Directives TypeDate RecordedPatient RepresentativeExplanationPower of Attorney09/06/2024 3:49 PMHealth care power of sports attorney-[facility] Care Teams Team MemberRelationshipSpecialtyStart DateEnd Date Trace Kelly MD [address] [place] [address] PCP - GeneralFamily Xsohskpb42/21/24 Argelia Cheng NP PCP - Alexx RI03/29/24 Argelia Cheng NP Nurse PractitionerFamily Medicine11/10/23
--- NOTE | 2025-02-28 13:00 | CA_ITS ---
Patient Name: CHIARA EDUARDO MR#: [id number] : 1955 Exam Date: 02/28/2025 Ordering Doctor: WILLIE LUU ECHOCARDIOGRAM REPORT PROCEDURE: CA ECHO DOPPLER COMPLETE INDICATIONS: Heart failure with mildly reduced ejection fraction, AK, cardiac stents, COPD, hypertension COMPARISON: None. DESCRIPTION: COMPLETE ECHOCARDIOGRAM Real-time transthoracic echocardiography with 2D, M-mode, spectral and color flow Doppler performed. QUALITY: Technical quality was adequate. LEFT VENTRICLE: Normal chamber size. Mild concentric left ventricular hypertrophy. Low normal systolic function. Estimated left ventricular ejection fraction is 50-55%. LV EF: Low normal left ventricular ejection fraction, (50-55%). DIASTOLIC: Diastolic function is indeterminate. ATRIAL SEPTUM: Visually appears intact. LEFT ATRIUM: Mild dilatation. RIGHT ATRIUM: Normal chamber size. RIGHT VENTRICLE: Normal chamber size. Normal right ventricular systolic function. TRICUSPID VALVE: Normal mobility and thickness. No stenosis with mild regurgitation. Doppler studies reveal moderately (45-60) elevated right sided pressures. RVSP 51 mmHg MITRAL VALVE: Normal mobility and thickness. No evidence of mitral valve stenosis. There is no mitral annular calcification. Trivial mitral regurgitation. AORTIC VALVE: Normal trileaflet appearance. No visible sclerosis. Normal leaflet mobility. No evidence of aortic valve stenosis. No aortic regurgitation. AORTIC ROOT: Normal diameter and appearance, measuring 3.0 cm. PULMONIC VALVE: Not well visualized. PERICARDIUM: No evidence of pericardial effusion. IVC: Collapses with inspiration. PLEURA: CONCLUSION: 1. Mild concentric left ventricular hypertrophy with low normal systolic function. Estimated LVEF is 50-55%. 2. Normal right ventricular size and systolic function. 3. Mild left atrial dilatation. 4. Mild tricuspid regurgitation. 5. Moderately elevated right-sided pressures. RVSP is 51 mmHg. Adult Echocardiography Procedure Report Left Ventricle LVEDD (3.7 - 5.6 cm): 3.20 cm LVESD (2.2 - 4.0 cm): 2.16 cm LVIVS thickness (0.6 - 1.2 cm): 1.33 cm LVPW thickness (0.5 - 1.0 cm): 1.14 cm e': 0.10 m/s E - e': 8.54 LVOT Max Gradient: 3.51 mm[Hg] LVOT Area (cm2): 0.94 m/s Peak Velocity (LVOT): 0.94 m/s Mean Velocity (LVOT): 0.55 m/s LVOT Diameter 2.53 cm Left Ventricular Ejection Fraction: 50-55% Left Atrium LA Volume Index (2D A2C): 20.67 ml/m2 Left Atrium Systolic Dimension: 3.58 cm Mitral Valve MV E to A Ratio: 0.79 Mitral Valve A-Wave Peak Velocity: 1.03 m/s Mitral Valve E-Wave Peak Velocity: 0.81 m/s Right Ventricle Aorta AO Root Diam: 3.01 cm Aortic Valve AoV Area ([place]): 3.48 cm2, 3.48 cm2 AoV Area (VTI): 3.39 cm2, 3.39 cm2 Peak Velocity(Antegrade Flow): 1.35 m/s Peak Gradient(Antegrade Flow): 7.26 mm[Hg] Mean Velocity(Antegrade Flow): 0.90 m/s Mean Gradient(Antegrade Flow): 3.73 mm[Hg] Velocity Time Integral: 33.21 cm Tricuspid Valve Peak Velocity (Regurgitant Flow): 3.48 m/s, 3.09 m/s Pulmonic Valve Mean Gradient: 1.96 mm[Hg] Mean Velocity: 0.65 m/s Peak Velocity: 0.98 m/s Peak Gradient: 3.81 mm[Hg] Right Atrium Right Atrium Systolic Pressure: 26.40 ml, 26.40 ml Dictated by: Jamie Estevez M.D. on 02/28/2025 at 18:56 Approved by: Jamie Estevez M.D. on 02/28/2025 at 19:03
== END 2025-02-28 12:50 | disposition home or self-care (01) ==
LOC: CARD 12:50
PROVIDERS: PCP Nurse Practitioner
DX: I50.20 Unspecified systolic (congestive) heart failure (principal); R06.09 Other forms of dyspnea
CPT/HCPCS: 93306